=== PATIENT | female | born 1950 | race Caucasian/White ===

== ENCOUNTER → 2025-05-04 05:50 | Outpatient (REF) | payer MEDICARE, SELFPAY ==
[2025-05-04 07:55] LABS: Mucous, Urine 0 SEEN /hpf (<or=2+); Red Blood Cells-Urine 0 SEEN /hpf (0-5); Squamous Epithelial Cells - UA 0 SEEN /hpf (5-10)
[2025-05-04 08:16] LABS: Hematocrit 29.8 % (37-47); Hemoglobin 9.3 g/dL (12.0-15.0); Mean Corp Hgb Conc 31.2 g/dL (32-36); Mean Corpuscular Volume 93.7 fL (81-99); Mean Platelet Vol. 9.6 fl (6.2-12.0); Platelet Count 158 K/mm3 (150-450); RBC Distribution Width CV 15.1 % (11.6-14.6); RBC Distribution Width SD 52.3 fl (35.1-43.9); Red Blood Count 3.18 M/mm3 (4.2-5.4); White Blood Count 9.2 K/mm3 (4.4-11.0)
[2025-05-04 08:18] LABS: Color, Urine Yellow (Yellow); Glucose, Dipstick Normal (Normal); Ketone-Dipstick Negative (Negative); Leukocyte Esterase-Dipstick 100 /ul (Negative); Nitrite-Dipstick Negative (Negative); Occult Blood-Urine 250 /ul (Negative); Protein-Dipstick 30 mg/dl (Negative); Specific Gravity, Urine 1.005 (1.002-1.030); Urine Bilirubin Dipstick Negative (Negative)
[2025-05-04 08:28] LABS: Anion Gap 12 (5-15); BUN 33 mg/dL (4-19); BUN/Creat Ratio 13.9 RATIO (10-20); Calcium,Total 7.9 mg/dL (7.6-11.0); Carbon Dioxide 27.4 mmol/L (21.0-32.0); Chloride 106 mmol/L (98-108); Glucose 124 mg/dL (70-99); Potassium 3.3 mmol/L (3.3-5.1)
== END ==
LOC: OLS.SANC 05:50
DX: D64.9 Anemia, unspecified (principal); I10 Essential (primary) hypertension; N17.9 Acute kidney failure, unspecified
CPT/HCPCS: 36415; 80048; 81001; 85027; 87086

== ENCOUNTER → 2025-05-21 05:00 | Outpatient (REF) | payer MEDICARE, SELFPAY ==
--- OUTSIDE RECORDS SUMMARY | 2025-05-21 03:27 | XMS RPT_ITS | CCD ---
Author Organization [facility] Care Team Providers Care Android Developer Name Role Phone Luis Brooke DO Unavailable [facility] Primary Care Provider Aron Pennington MD, [facility] Primary Care Provider [phone] [facility] Primary Care Provider Luis Brooke DO Unavailable [facility] Primary Care Provider [facility] Primary Care Provider Priscilla Salas MD Unavailable [phone] [facility] Primary Care Provider [facility] Primary Care Unavailable JOSUE, QARAB Emmanuelle Referring Unavailable Luis Brooke DO Unavailable Priscilla Salas MD Unavailable [phone] [facility] Primary Care Provider Priscilla Salas MD Unavailable [facility] Primary Care Provider [facility] Primary Care Provider Toni Duran APRN.CNP Unavailable [phone] Della Alicia APRN.CNP Unavailable Scarlett Tan APRN.CNP Unavailable Toni Duran APRN.CNP Unavailable Ravin MAE.RHONDA Della N Unavailable MAY, MICHELLE Referring Unavailable [facility] DO, Samm Unavailable Bridgette SECURITIES BROKER.BRICK OR BLOCK MAKER, Amy Unavailable October RN, Taty Gomez Unavailable Baldemar PEPE, Daphne Unavailable Ravin SECURITIES BROKER.BRICK OR BLOCK MAKER, Della N Unavailable Mildred PEPE, Vy Unavailable Unavailable Ravin SECURITIES BROKER.BRICK OR BLOCK MAKER, Della N Unavailable October RN, Taty Gomez Unavailable Mildred PEPE, Vy Unavailable Unavailable Bshara, Beltran Unavailable Unavailable Bsannettea, Beltran Attending Unavailable Stan LIM, July Unavailable Nga Deras MA Unavailable [facility] Primary Care Unavailable DEANNE BUTTERFIELD MD Admitting Unavailable VIC GONZALEZ MD Consulting Unavailable [facility] Primary Care Unavailable KEVIN BRYAN MD Consulting Unavailable COLIN MANDEL MD Consulting Unavailable [facility] Primary Care Unavailable [facility] Primary Care Unavailable Nga Deras MA Unavailable [phone] Beth Rankin Unavailable [phone] [facility] Primary Care Unavailable JOSE CHAPARRO Admitting Unavailable NOEL JACKSON Attending Unavailable TERE PATEL Consulting Unavailab CARSON Hassan Admitting Unavailable CARSON BARR Attending Unavailable YAMINI, SAMM Primary Care Unavailable JULY PIERCE Referring Unavailable YAMINI, SAMM Primary Care Unavailable FAB ALTMAN Attending Unavailable ALEXANDRIA JOAQUIN Referring Unavailable [facility] Primary Care Unavailable [facility] Primary Care Unavailable SENG NAVARRETE Admitting UnavailGAVINO Wharton Consulting Unavailable RAFFY WHYTE Attending Unavailable [facility] Primary Care Unavailable BLAINE PAT Admitting Unavailable BETI PADGETT Attending Unavailable RENEE MOSS Consulting Unavailable YAMINI, SAMM Primary Care Unavailable GUME CANDELARIOAVI Attending Unavailable YAMINI, SAMM Primary Care Unavailable YAMINI, SAMM Attending Unavailable YAMINI, SAMM Primary Care Unavailable CANDELARIO, NORAH Referring Unavailable YAMINI, SAMM Primary Care Unavailable STAN, JULY Referring Unavailable YAMINI, SAMM Primary Care Unavailable BRIDGETTE, AMY Referring Unavailable YAMINI, SAMM Primary Care Unavailable STAN, JULY Attending Unavailable YAMINI, SAMM Primary Care Unavailable STAN, JULY Referring Unavailable YAMINI, SAMM Primary Care Unavailable YAMINI, SAMM Attending Unavailable YAMINI, SAMM Primary Care Unavailable SOFY RABAGO Referring Unavailab GILA Cabrera Attending Unavailable YAMINI, SAMM Primary Care Unavailable STAN, JULY Attending Unavailable YAMINI, SAMM Primary Care Unavailable BRIDGETTE, AMY Referring Unavailable YAMINI, SAMM Primary Care Unavailable YAMINI, SAMM Referring Unavailable POLA GARCIA Attending Unavailable YAMINI, SAMM Primary Care Unavailable KAROL RODRIGUEZ Referring Unavailable ROGERIMANDA Attending Unavailable YAMINI, SAMM Primary Care Unavailable STAN, JULY Referring Unavailable YAMINI, SAMM Primary Care Unavailable SEDRICK ROBERTS Attending Unavailable STAN, JULY Attending Unavailable YAMINI, SAMM Primary Care Unavailable YAMINI, SAMM Referring Unavailable YAMINI, SAMM Primary Care Unavailable POLA GARCIA Attending Unavailable YAMINI, SAMM Primary Care Unavailable SELF Referring Unavailable EL RETANA Attending Unavailable YAMINI, SAMM Primary Care Unavailable MARTI GARCIA Attending Unavailable YAMINI, SAMM Primary Care Unavailable ALEXANDRIA ROBERT Referring Unavailable SOFY RABAGO Attending Unavailab SOFY Chong Admitting Unavailab le YAMINI, SAMM Primary Care Unavailable YAMINI, SAMM Referring Unavailable YAMINI, SAMM Primary Care Unavailable STAN, JULY Attending Unavailable YAMINI, SAMM Primary Care Unavailable SUNSHINE DUCKWORTH Referring Unavailable YAMINI, SAMM Primary Care Unavailable YAMINI, SAMM Referring Unavailable [facility] Primary Care Unavailable RUDDY PIERCENORA Referring Unavailable [facility] Primary Care Unavailable CHAPARRORYK, LISE Referring Unavailable YUSRA BELTRAN Attending Unavailable [facility] Primary Care Unavailable LAVRYK, LISE Referring Unavailable LESLY BENDER Attending Unavailable [facility] Primary Care Unavailable [facility] Primary Care Unavailable JACKSONJEANETTEAR Referring Unavailable [facility] Attending Unavailable [facility] Primary Care Unavailable PRISCILLA SALAS Attending Unavailable Medications Current Medications Medication Drug Class(es) Dates Sig (Normalized) Sig (Original) acetaminophen 325 mg oral tablet (20 sources) Start: 08-16-2021 take 325-650 mg by mouth every six hours as needed acetaminophen (TYLENOL) 325 mg tablet Take 1-2 tablets by mouth every 6 hours as needed for pain or fever (specify). 08/16/2021 Active Comment on above: Take 1-2 tablets by mouth every 6 hours as needed for pain or fever (specify). amoxicillin 875 mg / clavulanate 125 mg oral tablet (3 sources) Penicillin-class Antibacterial Start: 02-20-2025 End: 02-27-2025 take 1 tablet by mouth twice daily amoxicillin-clavul anate potassium (AUGMENTIN) 875-125 mg per tablet Take 1 tablet by mouth two times a day for 7 days. 14 tablet 02/20/2025 02/27/2025 Active atorvastatin 80 mg oral tablet (20 sources) HMG-CoA Reductase Inhibitor Start: 07-24-2021 End: 12-29-2025 take 1 tablet by mouth once daily at bedtime atorvastatin (LIPITOR) 80 mg tablet Take 1 tablet by mouth daily at bedtime. 30 tablet 11 12/29/2024 12/29/2025 Active Start: 07-24-2021 End: 09-18-2022 take 1 tablet by mouth once daily at bedtime atorvastatin (LIPITOR) 80 mg tablet 1 tablet by ORAL/FEEDING TUBE route daily at bedtime. 90 tablet 3 07/24/2021 09/18/2022 Discontinued Comment on above: 1 tablet by ORAL/FEE DING TUBE route daily at bedtime. Take 1 tablet by teodoro th daily at bedtime. Blood-Glucose Meter (20 sources) Start: 01-09-2024 Blood-Glucose Meter To check blood sugar once a day. E11.9 any brand covered by insurance is ok 1 Each 01/09/2024 Suspended Start: 01-09-2024 Blood-Glucose Meter To check blood sugar once a day. E11.9 any brand covered by insurance is ok 1 Each 01/09/2024 Active Start: 01-09-2024 Blood-Glucose Meter To check blood sugar once a day. E11.9 any brand covered by insurance is ok 1 Each 0 01/09/2024 Active Blood-Glucose Meter,Continuo us (FREESTYLE YESSENIA 3 READER) misc (20 sources) Start: 01-18-2025 Blood-Glucose Meter,Continuous (FREESTYLE YESSENIA 3 READER) [facility] [place]ications: Type 2 diabetes mellitus without complication, with long-term current use of insulin (HCC) 1 each continuous. 1 each 01/18/2025 Suspended Start: 01-18-2025 Blood-Glucose Meter,Continuous (FREESTYLE YESSENIA 3 READER) [facility] [place]ications: Type 2 diabetes mellitus without complication, with long-term current use of insulin (HCC) 1 each continuous. 1 each 01/18/2025 Active Blood-Glucose Sensor (FREEST YLE YESSENIA 3 PLUS SENSOR) lv (20 sources) Start: 01-15-2025 Blood-Glucose Sensor (FREESTYLE YESSENIA 3 PLUS SENSOR) lv Indications: Type 2 diabetes mellitus without complication, with long-term current use of insulin (HCC) 1 each once daily. 5 each 01/15/2025 Suspended Start: 01-15-2025 Blood-Glucose Sensor (FREESTYLE YESSENIA 3 PLUS SENSOR) lv Indications: Type 2 diabetes mellitus without complication, with long-term current use of insulin (HCC) 1 each once daily. 5 each 11 01/15/2025 Active [facility] Comment on above: Order Comment: Speci men Type: BLOOD SPECIMENOrdering Facility: [facility] Address: [address] [place] [address] Performed By: #### 5 7021-8 ####[facility] LABCLIA [id number] [place] [address] [place] Lymphocytes (Bld) [#/Vol] 2.26 10*3/uL Normal 1.00-4.00 [facility] Comment on above: Order Comment: Speci men Type: BLOOD SPECIMENOrdering Facility: [facility] Address: [address] [place] [address] Performed By: #### 5 7021-8 ####[facility] LABCLIA [id number] [address] STATES [facility] Lymphocytes/100 WBC (Bld) 26.1 % Normal [facility] Comment on above: Order Comment: Speci men Type: BLOOD SPECIMENOrdering Facility: [facility] Address: [address] [place] [address] Performed By: #### 5 7021-8 ####[facility] LABCLIA [id number] [place] [address] [place] MCH (RBC) [Entitic mass] 28.2 pg Normal 26.0-34.0 [facility] Comment on above: Order Comment: Speci men Type: BLOOD SPECIMENOrdering Facility: [facility] Address: [address] [place] [address] Performed By: #### 5 7021-8 ####[facility] LABCLIA [id number] [address] STATES [facility] MCHC (RBC) [Mass/Vol] 31.1 g/dL Normal 30.5-36.0 [facility] Comment on above: Order Comment: Speci men Type: BLOOD SPECIMENOrdering Facility: [facility] Address: [address] [place] [address] Performed By: #### 5 7021-8 ####[facility] LABCLIA [id number] [address] [place] MCV (RBC) [Entitic vol] 90.6 fL Normal 80.0-100.0 [facility] Comment on above: Order Comment: Speci men Type: BLOOD SPECIMENOrdering Facility: [facility] Address: [address] [place] [address] Performed By: #### 5 7021-8 ####[facility] LABCLIA [id number] [place] [address] [place] Monocytes (Bld) [#/Vol] 0.45 10*3/uL Normal <0.87 [facility] Comment on above: Order Comment: Speci men Type: BLOOD SPECIMENOrdering Facility: [facility] Address: [address] [place] [address] Performed By: #### 5 7021-8 ####[facility] LABCLIA [id number] [place] [address] [place] Monocytes/100 WBC (Bld) 5.2 % Normal [facility] Comment on above: Order Comment: Speci men Type: BLOOD SPECIMENOrdering Facility: [facility] Address: [address] [place] [address] Performed By: #### 5 7021-8 ####[facility] LABCLIA [id number] [place] [address] [place] Neutrophils (Bld) [#/Vol] 5.88 10*3/uL Normal 1.45-7.50 [facility] Comment on above: Order Comment: Speci men Type: BLOOD SPECIMENOrdering Facility: [facility] Address: [address] [place] [address] Performed By: #### 5 7021-8 ####[facility] LABCLIA [id number] [place] [address] [place] Neutrophils/100 WBC (Bld) 67.8 % Normal [facility] Comment on above: Order Comment: Speci men Type: BLOOD SPECIMENOrdering Facility: [facility] Address: [address] [place] [address] Performed By: #### 5 7021-8 ####[facility] LABCLIA [id number] [place] [address] [place] Nucleated RBC (Bld) [#/Vol] 10*3/uL Normal <0.01 [facility] Comment on above: Order Comment: Speci men Type: BLOOD SPECIMENOrdering Facility: [facility] Address: [address] [place] [address] Performed By: #### 5 7021-8 ####[facility] LABCLIA [id number] [place] [id number] [place] Nucleated RBC/100 WBC (Bld) [Ratio] 0.0 /100 WBC Normal [facility] Comment on above: Order Comment: Speci men Type: BLOOD SPECIMENOrdering Facility: [facility] Address: [address] [place] [address] Performed By: #### 5 7021-8 ####[facility] LABCLIA [id number] [place] [address] [place] Platelet mean volume (Bld) [Entitic vol] 8.9 fL Low 9.0-12.7 [facility] Comment on above: Order Comment: Speci men Type: BLOOD SPECIMENOrdering Facility: [facility] Address: [address] [place] [address] Performed By: #### 5 7021-8 ####[facility] LABCLIA [id number] [place] [address] [place] Platelets (Bld) [#/Vol] 276 10*3/uL Normal 150-400 [facility] Comment on above: Order Comment: Speci men Type: BLOOD SPECIMENOrdering Facility: [facility] Address: [address] [place] [address] Performed By: #### 5 7021-8 ####[facility] LABCLIA [id number] [place] [address] [place] RBC (Bld) [#/Vol] 3.41 10*6/uL Low 4.20-6.00 [facility] Comment on above: Order Comment: Speci men Type: BLOOD SPECIMENOrdering Facility: [facility] Address: [address] [place] [address] Performed By: #### 5 7021-8 ####[facility] LABCLIA [id number] [place] [address] [place] WBC (Bld) [#/Vol] 8.67 10*3/uL Normal 3.70-11.00 [facility] Comment on above: Order Comment: Speci men Type: BLOOD SPECIMENOrdering Facility: [facility] Address: [address] [place] [address] Performed By: #### 5 7021-8 ####[facility] LABCLIA [id number] [place] [id number] [place] CNOVSPon 02-06-2025 CNOVSP Normal [facility] MAE DIRECTon 02-06-2025 DAGT, ANTI-C3B,C3D Positive Normal [facility] Comment on above: Order Comment: Speci men Type: BLOOD SPECIMENOrdering Facility: [facility] Address: [address] [place] [address] Performed By: #### D AGT ####CC [facility] BLOOD BANKCLIA [id number] [place] [address] [place] DAGT, ANTI-IGG Positive Normal [facility] Comment on above: Order Comment: Speci men Type: BLOOD SPECIMENOrdering Facility: [facility] Address: [address] [place] [address] Performed By: #### D AGT ####CC MAIN BLOOD BANKCLIA [id number] [place] [address] [place] DAGT, POLYSPECIFIC AHG Negative Normal [facility] Comment on above: Order Comment: Speci men Type: BLOOD SPECIMENOrdering Facility: [facility] Address: [address] [place] [address] Performed By: #### D AGT ####CC MAIN BLOOD BANKCLIA [id number] [place] [address] [place] Comprehensive metabolic 2000 panelon 02-06-2025 Albumin [Mass/Vol] 3.2 g/dL Low 3.9-4.9 [facility] Comment on above: Order Comment: Speci men Type: BLOOD SPECIMENOrdering Facility: [facility] Address: [address] [place] [address] Performed By: #### 2 4323-8, 4542-7, 2777-1, 3084-1 ####[facility] LABCLIA [id number] [place] [address] [place] ALP [Catalytic activity/Vol] 107 U/L Normal 38-113 [facility] Comment on above: Order Comment: Speci men Type: BLOOD SPECIMENOrdering Facility: [facility] Address: [address] [place] [address] Performed By: #### 2 4323-8, 4542-7, 277-1, 308-1 ####[facility] LABIA [id number] [place] [address] [place] ALT [Catalytic activity/Vol] 15 U/L Normal 10-54 [facility] Comment on above: Order Comment: Speci men Type: BLOOD SPECIMENOrdering Facility: [facility] Address: [address] [place] [address] Performed By: #### 2 4323-8, 4542-7, 2776-, 308-1 ####[facility] LABIA [id number] [place] [address] [place] Anion gap [Moles/Vol] 17 mmol/L High 8-15 [facility] Comment on above: Order Comment: Speci men Type: BLOOD SPECIMENOrdering Facility: [facility] Address: [address] [place] [address] Performed By: #### 2 4323-8, 4542-7, 2776-1, 308-1 ####[facility] LABCLIA [id number] [place] [id number] [place] AST [Catalytic activity/Vol] 16 U/L Normal 14-40 [facility] Comment on above: Order Comment: Speci men Type: BLOOD SPECIMENOrdering Facility: [facility] Address: [address] [place], [place] [address] Performed By: #### 2 4323-8, 4542-7, 2776-, 3083- ####[facility] LABCLIA [id number] [facility] [address] [address] [place] Bilirubin [Mass/Vol] 0.4 mg/dL Normal 0.2-1.3 [facility] Comment on above: Order Comment: Speci men Type: BLOOD SPECIMENOrdering Facility: [facility] Address: [address] [place], [place] [address] Performed By: #### 2 4323-8, 4542-7, 2776-, 3083- ####[facility] LABCLIA [id number] [facility] [place] [id number] [place] Calcium [Mass/Vol] 8.7 mg/dL Normal 8.5-10.2 [facility] Comment on above: Order Comment: Speci men Type: BLOOD SPECIMENOrdering Facility: [facility] Address: [address] [place] [address] Performed By: #### 2 4323-8, 4542-7, 2776-, 3083- ####[facility] LABCLIA [id number] [facility] [place] [id number] [place] Chloride [Moles/Vol] 101 mmol/L Normal 98-107 [facility] Comment on above: Order Comment: Speci men Type: BLOOD SPECIMENOrdering Facility: [facility] Address: [address] [place], [place] [address] Performed By: #### 2 4323-8, 4542-7, 277-, 308-1 ####[facility] LABCLIA [id number] [facility] [address] [address] [place] CO2 [Moles/Vol] 19 mmol/L Low 22-30 [facility] Comment on above: Order Comment: Speci men Type: BLOOD SPECIMENOrdering Facility: [facility] Address: [address] [place] [address] Performed By: #### 2 4323-8, 4542-7, 2777-1, 308- ####[facility] LABCLIA [id number] [address] [address] [place] Creatinine [Mass/Vol] 1.11 mg/dL Normal 0.73-1.22 [facility] Comment on above: Order Comment: Speci men Type: BLOOD SPECIMENOrdering Facility: [facility] Address: [address] [place] [address] Performed By: #### 2 4323-8, 4542-7, 2776-, 308- ####[facility] LABCLIA [id number] [address] [address] [place] eGFRcr SerPlBld CKD-EPI 2020 69 mL/min/1.73m??? Normal >=60 [facility] Comment on above: Order Comment: Speci men Type: BLOOD SPECIMENOrdering Facility: [facility] Address: [address] [place] [address] Result Comment: Nancy mated Glomerular Filtration Rate (eGFR) is calculated using the 2020 CKD-EPI creatinine equation. This equation utilizes serum creatinine, sex, and age as parameters. The creatinine assay has traceable calibration to isotope dilution-mass spectrometry. Refer to KDIGO guidelines for clinical interpretation. In patients with unstable renal function, e.g. those with acute kidney injury, the eGFR may not accurately reflect actual GFR. Performed By: #### 2 4323-8, 4542-7, 277-1, 308-1 ####[facility] LABCLIA [id number] [address] [address] [place] Glucose [Mass/Vol] 250 mg/dL High 74-99 [facility] Comment on above: Order Comment: Speci men Type: BLOOD SPECIMENOrdering Facility: [facility] Address: [address] [place], [place] [address] Result Comment: The [place] Diabetes [employer] (ADA) provides guidance for cutoff values for fasting glucose and random glucose. The ADA defines fasting as no caloric intake for at least 8 hours. Fasting plasma glucose results between 100 to 125 mg/dL indicate increased risk for diabetes (prediabetes).Fasting plasma glucose results greater than or equal to 126 mg/dL meet the criteria for diagnosis of diabetes. In the absence of unequivocal hyperglycemia, results should be confirmed by repeat testing. In a patient with classic symptoms of hyperglycemia or hyperglycemic crisis, random plasma glucose results greater than or equal to 200 mg/dL meet the criteria for diagnosis of diabetes.Reference: Standards of Medical Care in Diabetes 2016, [place] [employer]. Diabetes Care. 2016.39(Suppl 1). Performed By: #### 2 4323-8, 4542-7, 2776-, 308- ####[facility] LABCLIA [id number] [place] [address] [place] Potassium [Moles/Vol] 5.1 mmol/L Normal 3.7-5.1 [facility] Comment on above: Order Comment: Speci men Type: BLOOD SPECIMENOrdering Facility: [facility] Address: [address] [address] [place] [id number] Performed By: #### 2 4323-8, 2-7, 2776-06, 3083- ####[facility] LABIA [id number] [place] [id number] [place] Protein [Mass/Vol] 6.2 g/dL Low 6.3-8.0 [facility] Comment on above: Order Comment: Speci men Type: BLOOD SPECIMENOrdering Facility: [facility] Address: [address] [facility] [address] [place] [address] Performed By: #### 2 4323-8, 4542-7, 2776-, 308- ####[facility] LABCLIA [id number] [place] [id number] [place] Sodium [Moles/Vol] 137 mmol/L Normal 136-144 [facility] Comment on above: Order Comment: Speci men Type: BLOOD SPECIMENOrdering Facility: [facility] Address: [address] [place] [address] Performed By: #### 2 4323-8, 4542-7, 2777-1, 3084-1 ####[facility] LABCLIA [id number] [address] [address] [place] Urea nitrogen [Mass/Vol] 22 mg/dL Normal 9-24 [facility] Comment on above: Order Comment: Speci men Type: BLOOD SPECIMENOrdering Facility: [facility] Address: [address] [place] [address] Performed By: #### 2 4323-8, 4542-7, 2776-, 3084-1 ####[facility] LABCLIA [id number] [place] [id number] [place] Glucose (BldC) [Mass/Vol]on 02-06-2025 Glucose [Moles/Vol] 130 mmol/L Invalid Interpretation Code [employer] Work Phone: Glucose [Moles/Vol] 144 mmol/L Invalid Interpretation Code [employer] Work Phone: Glucose [Moles/Vol] 112 mmol/L Invalid Interpretation Code [employer] Work Phone: Haptoglob SerPl-mCncon 02-06 Haptoglobin [Mass/Vol] 277 mg/dL High 31-238 [facility] Comment on above: Order Comment: Speci men Type: BLOOD SPECIMENOrdering Facility: [facility] Address: [address] [place], [place] [address] Performed By: #### 2 4323-8, 4542-7, 2776-1, 3084-1 ####[facility] LABCLIA [id number] [address] [address] [place] LDH SerPl-cCncon 02-06-2025 LDH [Catalytic activity/Vol] 327 U/L High 135-225 [facility] Comment on above: Order Comment: Speci men Type: BLOOD SPECIMENOrdering Facility: [facility] Address: [address] [place] [address] Performed By: #### 2 532-0 ####[facility] LABCLIA [id number] [address] [address] [facility] [place] Phosphate SerPl-mCncon 02-06 Phosphate [Mass/Vol] 3.5 mg/dL Normal 2.7-4.8 [facility] [facility] Comment on above: Order Comment: Speci men Type: BLOOD SPECIMENOrdering Facility: [facility] Address: [address] [place] [address] Performed By: #### 2 4323-8, 4542-7, 2777-1, 3084-1 ####[facility] LABCLIA [id number] [place] [address] [place] TYPE + SCREENon 02-06-2025 ABO A Normal [facility] Comment on above: Order Comment: Speci men Type: BLOOD SPECIMENOrdering Facility: [facility] Address: [address] [place] [address] Performed By: #### T SCR, [id number] ####[facility] BLOOD BANKCLIA [id number] [place] [address] [place] Rh Nom (Bld) Positive Normal [facility] Comment on above: Order Comment: Speci men Type: BLOOD SPECIMENOrdering Facility: [facility] Address: [address] [place] [address] Performed By: #### T SCR, [id number] ####[facility] BLOOD BANKCLIA [id number] [place] [address] [place] TYPE AND SCREEN EXPIRATION 02/09/2025 23:59 Normal [facility] Comment on above: Order Comment: Speci men Type: BLOOD SPECIMENOrdering Facility: [facility] Address: [address] [place] [address] Performed By: #### T SCR, [id number] ####[facility] BLOOD BANKCLIA [id number] [address] [address] [place] Urate SerPl-mCncon 5 Urate [Mass/Vol] 4.6 mg/dL Normal 4.0-8.[address] [facility] Comment on above: Order Comment: Speci men Type: BLOOD SPECIMENOrdering Facility: [facility] Address: [address] [place] [address] Performed By: #### 2 4323-8, 4542-7, 2777-1, 3084-1 ####[facility] LABCLIA [id number] [place] [address] [place] Glucose (BldC) [Mass/Vol]on 02-05-2025 Glucose [Moles/Vol] 135 mmol/L Invalid Interpretation Code [facility] Work Phone: Glucose [Moles/Vol] 130 mmol/L Invalid Interpretation Code [facility] Work Phone: Glucose [Moles/Vol] 176 mmol/L Invalid Interpretation Code [facility] Work Phone: Glucose [Moles/Vol] 119 mmol/L Invalid Interpretation Code [facility] Work Phone: Glucose (BldC) [Mass/Vol]on 02-04-2025 Glucose [Moles/Vol] 117 mmol/L Invalid Interpretation Code [facility] Work Phone: Glucose [Moles/Vol] 110 mmol/L Invalid Interpretation Code [facility] Work Phone: Glucose [Moles/Vol] 192 mmol/L Invalid Interpretation Code [facility] Work Phone: Glucose [Moles/Vol] 120 mmol/L Invalid Interpretation Code [facility] Work Phone: HISTORY PHYSICALon 5 HISTORY PHYSICAL HNO ID: [id number] Author: ADRIANA PETTIT MD Service: ? Author Type: Physician Type: H&P Filed: 02/11/2025 00:02 Note Text: HISTORY AND PHYSICAL EXAMINATION - INTERNAL MEDICINE PATIENT NAME: Tere Barone SERVICE DATE: 02/04/2025 SERVICE TIME: 11:53 PM PRIMARY CARE PHYSICIAN: Samm Kc DO Admitting Physician: Adriana Pettit MD SUBJECTIVE CHIEF COMPLAINT: 74 years old male admitted to the hospital with weakness and fatigue, found to be covid positive, isolated and stabilized, then discharged to SNF for rehab and continuity of care. HISTORY OF PRESENT ILLNESS: Mr. 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 Patient was admitted to the hospital for further treatment and evaluation. Patient was found to be positive for COVID 19. Started on remdesivir therapy. ID was consulted. Recommended continuing 3-day course of antivirals. Patient showed incremental improvement in clinical course. As patient was not hypoxic did not start steroid therapy. PT/OT recommended patient would benefit from [facility] facility. Patient also did have history of mantle cell lymphoma/autoimmune hemolytic anemia. Hematology was consulted and felt that patient was not in flareup. Continue outpatient follow-up with hematology. During patient's hospital course also noted to have depression. Behavioral health was consulted and recommended that patient start Zoloft 50 mg daily, trazodone 25 mg at bedtime and following up with outpatient psych. Patient's hospital course and need for follow-up were explained to patient and for member who are in understanding. Patient will need to follow-up with primary care physician, hematology and psychiatry soon after discharge from hospital. Today he is stable, denies any pain or sob, his lungs are clear to auscultation , participating in therapy without complication , no other new concerns. 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 Carotid artery occlusion Carpal tunnel syndrome of left wrist Carpal tunnel syndrome on right Chronic bilateral low back pain without sciatica 10/01/2017 Combined forms of age-related cataract of right eye 06/14/2021 COVID-19 08/03/2021 Dependence on nicotine from cigarettes Elevated troponin 07/23/2021 Essential hypertension 08/03/2021 Frequent falls 08/03/2021 Mixed hyperlipidemia Multiple falls 08/04/2021 Nicotine use disorder, F17.2 NS (nuclear sclerosis), right 06/16/2021 Obesity, Class I, BMI 30-34.9 08/03/2021 Osteoarthritis Posterior subcapsular polar age-related cataract of right eye 06/16/2021 Pseudophakia of left eye 09/2012 Sleep apnea Spinal stenosis Syncope 07/23/2021 Thoracic or lumbosacral neuritis or radiculitis, unspecified Type 2 diabetes mellitus with hyperglycemia (HCC) 08/03/2021 PAST SURGICAL HISTORY: PAST SURGICAL HISTORY Procedure Laterality Date ARTHRD ANT INTERBODY MIN DSC LUMBAR 1989 NEUROPLASTY AND/TRANSPOS MEDIAN NRV CARPAL TUNNE 2009 Carpal tunnel decomp Lt. XCAPSL CTRC RMVL INSJ IO LENS PROSTH W/O ECP 09/2012 Cataract Extraction with PC IOL left ACTIVE HOSPITAL PROBLEMS Active Problems: * No active hospital problems. * FAMILY HISTORY: FAMILY HISTORY Problem Relation Age of Onset Diabetes Mother Heart Mother Hypertension Mother Stroke Mother Cataract Mother Glaucoma Mother Macular Degen Father Parkinsonism Sister Asthma Sister Headache Brother Heart Attack Brother SOCIAL HISTORY: SOCIAL HISTORY[1] MEDICATIONS: Prescriptions Prior to Admission[2] ALLERGIES: ALLERGIES No Known Allergies COMPLETE REVIEW OF SYSTEMS: RESPIRATORY: Negative for cough, wheezing or shortness of breath. CARDIOVASCULAR: Negative for chest pain, leg swelling or palpitations. GI: Negative for abdominal discomfort, blood in stools or black stools or change in bowel habits : No history of dysuria, frequency or incontinence MUSCULOSKELETAL: Negative for joint pain or swelling, back pain or muscle pain. SKIN: Negative for lesions, rash, and itching. NEURO: weakness All other reviewed and negative other than HPI. OBJECTIVE PHYSICAL EXAM: @IPVITALS(1D:)@ There is no height or weight on file to calculate BMI. Oropharynx normal. NECK: no jugulovenous distention, no carotid bruits, carotid pulse normal contour, supple LUNGS: Lungs clear to auscultation. Good diaphragmatic excursion. CARDIAC: normal S1 and S2; no rubs, murmurs, or gallops ABDOMEN: Abdomen soft, non-tender. BS normal. No masses (more content not included)... Normal [facility] Glucose (BldC) [Mass/Vol]on 02-03-2025 Glucose [Moles/Vol] 236 mmol/L Invalid Interpretation Code [facility] Work Phone: Glucose [Moles/Vol] 248 mmol/L Invalid Interpretation Code [facility] Work Phone: Glucose [Moles/Vol] 263 mmol/L Invalid Interpretation Code [facility] Work Phone: Glucose [Moles/Vol] 125 mmol/L Invalid Interpretation Code [facility] Work Phone: BASICMETAon 02-02-2025 Calcium [Mass/Vol] 8.2 mg/dL Low 8.7-10.4 [facility] Comment on above: Performed By: #### 1 71559, [id number], [id number] #### [facility] [address] [place] [address] Mud Boss: Simba Obrien MD Chloride [Moles/Vol] 107 mmol/L Normal 98-107 [facility] Comment on above: Performed By: #### 1 85429, 582661, 911031 #### [facility] [address] [place] [address] Mud Boss: Simba Obrien MD CO2 [Moles/Vol] 26.0 mmol/L Normal 20.0-31.0 [facility] Comment on above: Performed By: #### 1 18145, 387321, 870269 #### [facility] [address] [place] [address] 00589 Mud Boss: Simba Obrien MD Creatinine [Mass/Vol] 0.9 mg/dL Normal 0.6-1.1 [facility] Comment on above: Performed By: #### 1 69808, 190178, 412187 #### [facility] [address] [place] [address] Mud Boss: Simba Obrien MD GFR AA >60 Normal [facility] Comment on above: Result Comment: Afri can [place] GFR Calc Medical judgement is necessary to interpret GFR. The calculated GFR may not accurately reflect renal status in patients >70 years, women, acutely ill hospitalized patients and patients with acute renal failure or known renal disease. The MDRD GFR formula is valid only for adults greater than 18 years of age. Note: Creatinine clearance (not GFR) should be used for drug dosing. Calculated result performed using the MDRD GFR equation Performed By: #### 1 22680, 305422, 232635 #### [facility] [address] [place] [address] Mud Boss: Simba Obrien MD Glomerular Filtration Rate >60 Normal [facility] Comment on above: Result Comment: Non- GFR Calc Medical judgement is necessary to interpret GFR. The calculated GFR may not accurately reflect renal status in patients >70 years, women, acutely ill hospitalized patients and patients with acute renal failure or known renal disease. The MDRD GFR formula is valid only for adults greater than 18 years of age. Note: Creatinine clearance (not GFR) should be used for drug dosing. Calculated result performed using the MDRD GFR equation Performed By: #### 1 30074, 393392, 558985 #### [facility] [address] [place] [address] Mud Boss: Simba Obrien MD Glucose [Mass/Vol] 75 mg/dL Normal 74-106 [facility] Comment on above: Performed By: #### 1 81067, 809065, 193263 #### [facility] [address] [place] [address] Mud Boss: Simba Obrien MD Osmolality [Osmolality] 280 mosm/kg Normal 275-295 [facility] Comment on above: Performed By: #### 1 08160, 809619, 056314 #### [facility] [address] [place] [address] Mud Boss: Simba Obrien MD Potassium [Moles/Vol] 3.6 mmol/L Normal 3.5-5.1 [facility] Comment on above: Performed By: #### 1 96522, 596437, 576678 #### [facility] [address] [place] [address] Mud Boss: Simba Obrien MD Sodium [Moles/Vol] 141 mmol/L Normal 135-145 [facility] Comment on above: Performed By: #### 1 97408, 207229, 970366 #### [facility] [address] [place] [address] Mud Boss: Simba Obrien MD Urea nitrogen [Mass/Vol] 14 mg/dL Normal 9-23 [facility] Comment on above: Result Comment: - Ve nipuncture should occur prior to N-Acetyl Cysteine (NAC) or Metamizole (Sulpyrine) administration due to the potential for falsely depressed results. - Blood samples from some patients with monoclonal gammopathies may produce falsely elevated results Performed By: #### 1 49354, 389579, 081654 #### [facility] [address] [place] [address] Mud Boss: Simba Obrien MD Urea nitrogen/Creatinine [Mass ratio] 15.6 mg/mg Normal [facility] Comment on above: Performed By: #### 1 32362, 451343, 625700 #### [facility] [address] [place] [address] Mud Boss: Simba Obrien MD CBCNDon 02-02-2025 Erythrocyte distribution width (RBC) [Ratio] 16.7 % High 11.5-14.5 [facility] Comment on above: Performed By: #### 5 [id number] #### [facility] [address] [place] [address] Mud Boss: Simba Obrien MD Hematocrit (Bld) [Volume fraction] 27.8 % Low 41.0-52.0 [facility] Comment on above: Performed By: #### 5 [id number] #### [facility] [address] [place] [address] Mud Boss: Simba Obrien MD Hemoglobin (Bld) [Mass/Vol] 9.1 g/dL Low 13.5-17.5 [facility] Comment on above: Performed By: #### 5 [id number] #### [facility] [address] [place] [address] Mud Boss: Simba Obrien MD Instr WBC ND 5.3 Normal [facility] Comment on above: Performed By: #### 5 [id number] #### [facility] [address] [place] [address] 29672 Mud Boss: Simba Obrien MD MCH (RBC) [Entitic mass] 28.4 pg Normal 27.0-34.0 [facility] Comment on above: Performed By: #### 5 [id number] #### [facility] [address] [place], [place] [address] Mud Boss: Simba Obrien MD MCHC (RBC) [Mass/Vol] 32.7 g/dL Normal 32.0-37.0 [facility] Comment on above: Performed By: #### 5 [id number] #### [facility] [address] [place] [address] Mud Boss: Simba Obrien MD MCV (RBC) [Entitic vol] 86.9 fL Normal 80.0-100.0 [facility] Comment on above: Performed By: #### 5 [id number] #### [facility] [address] [place] [address]10 Mud Boss: Simba Obrien MD Platelet 317 x10 Normal 150-450 [facility] Comment on above: Performed By: #### 5 [id number] #### [facility] [address] [place] [address] 75721 Mud Boss: Simba Obrien MD Platelet mean volume (Bld) [Entitic vol] 6.5 fL Low 7.4-10.4 [facility] Comment on above: Performed By: #### 5 [id number] #### [facility] [address] [place] [address] [id number] Mud Boss: Simba Obrien MD RBC 3.21 x10 Low 4.70-6.10 [facility] Comment on above: Result Comment: Note : RBC morphology is normal unless otherwise stated. Evaluation performed only if differential is requested. Performed By: #### 5 [id number] #### [facility] [address] [place], [place] [address] Mud Boss: Simba Obrien MD WBC 5.3 x10 Normal 4.5-11.0 [facility] Comment on above: Performed By: #### 5 [id number] #### [facility] [address] [place] [address] Mud Boss: Simba Obrien MD Glucose (BldC) [Mass/Vol]on 02-02-2025 Glucose [Moles/Vol] 231 mmol/L Invalid Interpretation Code [facility] Work Phone: Glucose [Moles/Vol] 240 mmol/L Invalid Interpretation Code [facility] Work Phone: Glucose [Moles/Vol] 189 mmol/L Invalid Interpretation Code [facility] Work Phone: Glucose [Moles/Vol] 99 mmol/L Invalid Interpretation Code [facility] Work Phone: Glucose (BldC) [Mass/Vol]on 02-01-2025 Glucose [Moles/Vol] 158 mmol/L Invalid Interpretation Code [facility] Work Phone: Glucose [Moles/Vol] 124 mmol/L Invalid Interpretation Code [facility] Work Phone: Glucose [Moles/Vol] 111 mmol/L Invalid Interpretation Code [facility] Work Phone: Glucose [Moles/Vol] 115 mmol/L Invalid Interpretation Code [facility] Work Phone: Glucose (BldC) [Mass/Vol]on 01-31-2025 Glucose [Moles/Vol] 132 mmol/L Invalid Interpretation Code [facility] Work Phone: Glucose [Moles/Vol] 103 mmol/L Invalid Interpretation Code [facility] Work Phone: Glucose [Moles/Vol] 115 mmol/L Invalid Interpretation Code [facility] Work Phone: Glucose [Moles/Vol] 101 mmol/L Invalid Interpretation Code [facility] Work Phone: Glucose (BldC) [Mass/Vol]on 01-30-2025 Glucose [Moles/Vol] 228 mmol/L Invalid Interpretation Code [facility] Work Phone: Glucose [Moles/Vol] 321 mmol/L Invalid Interpretation Code [facility] Work Phone: Glucose [Moles/Vol] 223 mmol/L Invalid Interpretation Code [facility] Work Phone: Glucose [Moles/Vol] 214 mmol/L Invalid Interpretation Code [facility] Work Phone: CNPTOUTREACHon 01-29-2025 CNPTOUTREACH Normal [facility] Glucose (BldC) [Mass/Vol]on 01-29-2025 Glucose [Moles/Vol] 293 mmol/L Invalid Interpretation Code [facility] Work Phone: Glucose [Moles/Vol] 295 mmol/L Invalid Interpretation Code [facility] Work Phone: Glucose [Moles/Vol] 216 mmol/L Invalid Interpretation Code [facility] Work Phone: Glucose [Moles/Vol] 157 mmol/L Invalid Interpretation Code [facility] Work Phone: CASE MANAGEMon 01-28-2025 CASE MANAGEM [facility] CNCOon 01-28-2025 CNCO Letter Text [facility] CNDSon 01-28-2025 CNDS [facility] CONSULT PROGon 01-28-2025 CONSULT PROG [facility] Glucose (BldC) [Mass/Vol]on 01-28-2025 Glucose [Moles/Vol] 210 mmol/L Invalid Interpretation Code [facility] Work Phone: Glucose [Moles/Vol] 221 mmol/L Invalid Interpretation Code [facility] Work Phone: CASE MANAGEMon 01-27-2025 CASE MANAGEM [facility] CASE MANAGEM [facility] CNOVSPon 01-27-2025 CNOVSP [facility] CONSULTon 01-27-2025 CONSULT [facility] CONSULT [facility] CONSULT PROGon 01-27-2025 CONSULT PROG [facility] THERAPY NTon 01-27-2025 THERAPY NT [facility] ALLIED HEALTHon 01-26-2025 ALLIED HEALTH [facility] Basic metabolic 2000 panelon 01-26-2025 Anion gap [Moles/Vol] 10 mmol/L Normal 8-15 [facility] Comment on above: Order Comment: Speci men Type: BLOOD SPECIMENOrdering Facility: [facility] Address: [address] [place] [address] Performed By: #### 2 4321-2, 53431-0, , 2776-1 ####[facility] [id number] [place] [address] [place] Calcium [Mass/Vol] 7.9 mg/dL Low 8.5-10.2 [facility] Comment on above: Order Comment: Speci men Type: BLOOD SPECIMENOrdering Facility: [facility] Address: [address] [place] [address] Performed By: #### 2 4321-2, 89264-2, , 2776-1 ####[facility]ORY[facility]IA [id number] [place] [address] [place] Chloride [Moles/Vol] 109 mmol/L High 98-107 [facility] Comment on above: Order Comment: Speci men Type: BLOOD SPECIMENOrdering Facility: [facility] Address: [address] [place] [address] Performed By: #### 2 4321-2, 40191-9, 24753-9, 2776-1 ####[facility] [id number] [place] [address] [place] CO2 [Moles/Vol] 21 mmol/L Low 22-30 [facility] Comment on above: Order Comment: Speci men Type: BLOOD SPECIMENOrdering Facility: [facility] Address: [facility] [place] [address] Performed By: #### 2 4321-2, 17664-5, 24897-7, 2776- ####[facility] [id number] [place] [address] [place] Creatinine [Mass/Vol] 1.09 mg/dL Normal 0.73-1.22 [facility] Comment on above: Order Comment: Pemai men Type: BLOOD SPECIMENOrdering Facility: [facility] Address: [address] [place] [address] Performed By: #### 2 4321-2, 05199-7, , 2776-06 ####[facility]ORY[facility]IA [id number] [address] STATES OF [facility] eGFRcr SerPlBld CKD-EPI 2020 71 mL/min/1.73m??? Normal >=60 [facility] Comment on above: Order Comment: Demarco men Type: BLOOD SPECIMENOrdering Facility: [facility] Address: [address] [place] [address] Result Comment: Nancy mated Glomerular Filtration Rate (eGFR) is calculated using the 2020 CKD-EPI creatinine equation. This equation utilizes serum creatinine, sex, and age as parameters. The creatinine assay has traceable calibration to isotope dilution-mass spectrometry. Refer to KDIGO guidelines for clinical interpretation. In patients with unstable renal function, e.g. those with acute kidney injury, the eGFR may not accurately reflect actual GFR. Performed By: #### 2 4321-2, 53821-3, 30968-0, 2776-1 ####[facility]ORYCLIA [id number] [place] [address] [place] Glucose [Mass/Vol] 229 mg/dL High 74-99 [facility] Comment on above: Order Comment: Pemai kimberly Type: BLOOD SPECIMENOrdering Facility: [facility] Address: [address] [place] [address] Result Comment: The [place] Diabetes Association (ADA) provides guidance for cutoff values for fasting glucose and random glucose. The ADA defines fasting as no caloric intake for at least 8 hours. Fasting plasma glucose results between 100 to 125 mg/dL indicate increased risk for diabetes (prediabetes).Fasting plasma glucose results greater than or equal to 126 mg/dL meet the criteria for diagnosis of diabetes. In the absence of unequivocal hyperglycemia, results should be confirmed by repeat testing. In a patient with classic symptoms of hyperglycemia or hyperglycemic crisis, random plasma glucose results greater than or equal to 200 mg/dL meet the criteria for diagnosis of diabetes.Reference: Standards of Medical Care in Diabetes 2016, [place] Diabetes Association. Diabetes Care. 2016.39(Suppl 1). Performed By: #### 2 4321-2, 26547-3, , 2776-06 ####[facility]ORYCLIA [id number] [place] [address] [place] Potassium [Moles/Vol] 4.4 mmol/L Normal 3.7-5.1 [facility] Comment on above: Order Comment: Demarco harris Type: BLOOD SPECIMENOrdering Facility: [facility] Address: [address] [place] [address] Performed By: #### 2 4321-2, 45017-4, , 2776-06 ####[facility]ORYCLIA [id number] [place] [address] [place] Sodium [Moles/Vol] 140 mmol/L Normal 136-144 [facility] Comment on above: Order Comment: Demarco harris Type: BLOOD SPECIMENOrdering Facility: [facility] Address: [address] [place] [address] Performed By: #### 2 4321-2, 26728-8, , 2776-06 ####[facility]ORYCLIA [id number] [place] [address] [place] Urea nitrogen [Mass/Vol] 14 mg/dL Normal 9-24 [facility] Comment on above: Order Comment: Demarco harris Type: BLOOD SPECIMENOrdering Facility: [facility] Address: [address] [place] [address] Performed By: #### 2 4321-2, 78220-3, , 2777-1 ####[facility]ATORYCLIA [id number] [place] [address] [place] CASE MANAGEMon 01-26-2025 CASE MANAGEM Normal [facility] CASE MANAGEM [facility] CBC W Auto Differential pane l (Bld)on 01-26-2025 Basophils (Bld) [#/Vol] 10*3/uL Normal <0.11 [facility] Comment on above: Order Comment: Speci men Type: BLOOD SPECIMENOrdering Facility: [facility] Address: [address] [place] [address] Performed By: #### 5 7021-8 ####[facility]ORY[facility]IA [id number] [place] [address] [place]#### 10529-9 ####[facility] LABCLIA [id number] [place] [address] [place] Basophils/100 WBC (Bld) 0.2 % Normal [facility] Comment on above: Order Comment: Speci men Type: BLOOD SPECIMENOrdering Facility: [facility] Address: [address] [place] [address] Performed By: #### 5 7021-8 ####[facility]ORYCLIA [id number] [place] [address] [place]#### 42751-9 ####[facility] LABCLIA [id number] [place] [id number] [place] Differential cell count method Nom (Bld) Auto Normal [facility] Comment on above: Order Comment: Speci men Type: BLOOD SPECIMENOrdering Facility: [facility] Address: [address] [place], [place] [address] Performed By: #### 5 7021-8 ####[facility]ATORYCLIA [id number] [place] [address] [place]#### 97236-9 ####[facility] [facility] LABCLIA [id number] [place] [id number] [place] Eosinophils (Bld) [#/Vol] 10*3/uL Normal <0.46 [facility] Comment on above: Order Comment: Speci men Type: BLOOD SPECIMENOrdering Facility: [facility] Address: [address] [place] [address] Performed By: #### 5 7021-8 ####[facility] LABORATORYCLIA [id number] [address]#### 19653-7 ####[facility] LABCLIA [id number] [address] [place] Eosinophils/100 WBC (Bld) 0.5 % Normal [facility] Comment on above: Order Comment: Speci men Type: BLOOD SPECIMENOrdering Facility: [facility] Address: [address] [place] [address] Performed By: #### 5 7021-8 ####[facility]ORY[facility] [id number] [address]#### 39799-7 ####[facility] LABCLIA [id number] [address] [place] Erythrocyte distribution width (RBC) [Ratio] 15.7 % High 11.5-15.0 [facility] Comment on above: Order Comment: Speci men Type: BLOOD SPECIMENOrdering Facility: [facility] Address: [address] [place] [address] Performed By: #### 5 7021-8 ####[facility] LABORATORYCLIA [id number] [address]#### 73832-9 ####[facility] LABCLIA [id number] [address] [place] Hematocrit (Bld) [Volume fraction] 26.7 % Low 39.0-51.0 [facility] Comment on above: Order Comment: Speci men Type: BLOOD SPECIMENOrdering Facility: [facility] Address: [address] [place] [address] Performed By: #### 5 7021-8 ####[facility] LABORATORYCLIA [id number] [place] [address] [facility] [place]#### 62387-2 ####[facility] LABCLIA [id number] [place] [address] [place] Hemoglobin (Bld) [Mass/Vol] 8.0 g/dL Low 13.0-17.0 [facility] Comment on above: Order Comment: Speci men Type: BLOOD SPECIMENOrdering Facility: [facility] Address: [address] [place] [address] Performed By: #### 5 7021-8 ####[facility] LABORATORYCLIA [id number] [place] [address] [place]#### 48508-3 ####[facility] LABCLIA [id number] [place] [address] [place] Immature granulocytes (Bld) [#/Vol] 10*3/uL Normal <0.10 [facility] Comment on above: Order Comment: Speci men Type: BLOOD SPECIMENOrdering Facility: [facility] Address: [address] [place] [address] Performed By: #### 5 7021-8 ####[facility] LABORATORYCLIA [id number] [place] [address] [facility] [place]#### 22912-4 ####[facility] LABCLIA [id number] [place] [address] [place] Immature granulocytes/100 WBC (Bld) 0.2 % Normal [facility] Comment on above: Order Comment: Speci men Type: BLOOD SPECIMENOrdering Facility: [facility] Address: [address] [place] [address] Performed By: #### 5 7021-8 ####[facility] LABORATORYCLIA [id number] [place] [address] [place]#### 12183-0 ####[facility] LABCLIA [id number] [place] [id number] [place] Lymphocytes (Bld) [#/Vol] 1.89 10*3/uL Normal 1.00-4.00 [facility] Comment on above: Order Comment: Speci men Type: BLOOD SPECIMENOrdering Facility: [facility] Address: [address] [place] [address] Performed By: #### 5 7021-8 ####[facility] LABORATORYCLIA [id number] [place] [address] [place]#### 42024-0 ####[facility] LABCLIA [id number] [place] [address] [place] Lymphocytes/100 WBC (Bld) 42.9 % Normal [facility] Comment on above: Order Comment: Speci men Type: BLOOD SPECIMENOrdering Facility: [facility] Address: [address] [place] [address] Performed By: #### 5 7021-8 ####[facility]ATORYCLIA [id number] [place] [address] [place]#### 51599-9 ####[facility] LABCLIA [id number] [place] [address] [place] MCH (RBC) [Entitic mass] 27.4 pg Normal 26.0-34.0 [facility] Comment on above: Order Comment: Speci men Type: BLOOD SPECIMENOrdering Facility: [facility] Address: [address] [place] [address] Performed By: #### 5 7021-8 ####[facility]ATORYCLIA [id number] [place] [address] [place]#### 29649-1 ####[facility] LABCLIA [id number] [place] [id number] [place] MCHC (RBC) [Mass/Vol] 30.0 g/dL Low 30.5-36.0 [facility] Comment on above: Order Comment: Speci men Type: BLOOD SPECIMENOrdering Facility: [facility] Address: [address] [place] [address] Performed By: #### 5 7021-8 ####[facility] LABORATORYCLIA [id number] [place] [address] [place]#### 31003-2 ####[facility] LABCLIA [id number] [place] [address] [place] MCV (RBC) [Entitic vol] 91.4 fL Normal 80.0-100.0 [facility] Comment on above: Order Comment: Speci men Type: BLOOD SPECIMENOrdering Facility: [facility] Address: [address] [place] [address] Performed By: #### 5 7021-8 ####[facility] LABORATORYCLIA [id number] [address] [place]#### 39535-5 ####[facility] LABCLIA [id number] [place] [address] [place] Monocytes (Bld) [#/Vol] 0.33 10*3/uL Normal <0.87 [facility] Comment on above: Order Comment: Speci men Type: BLOOD SPECIMENOrdering Facility: [facility] Address: [address] [place] [address] Performed By: #### 5 7021-8 ####[facility] LABORATORYCLIA [id number] [place] [address] [facility] [place]#### 68303-3 ####[facility] LABCLIA [id number] [place] [address] [place] Monocytes/100 WBC (Bld) 7.5 % Normal [facility] Comment on above: Order Comment: Speci men Type: BLOOD SPECIMENOrdering Facility: [facility] Address: [address] [place] [address] Performed By: #### 5 7021-8 ####[facility] LABORATORYCLIA [id number] [place] [address] [place]#### 01669-6 ####[facility] LABCLIA [id number] [address] [address] [place] Neutrophils (Bld) [#/Vol] 2.15 10*3/uL Normal 1.45-7.50 [facility] Comment on above: Order Comment: Speci men Type: BLOOD SPECIMENOrdering Facility: [facility] Address: [address] [place] [address] Performed By: #### 5 7021-8 ####[facility]ATORYCLIA [id number] [place] [address] [place]#### 72852-5 ####[facility] LABCLIA [id number] [place] [address] [place] Neutrophils/100 WBC (Bld) 48.7 % Normal [facility] Comment on above: Order Comment: Speci men Type: BLOOD SPECIMENOrdering Facility: [facility] Address: [address] [place] [address] Performed By: #### 5 7021-8 ####[facility]ATORYCLIA [id number] [place] [address] [place]#### 37059-3 ####[facility] LABCLIA [id number] [place] [id number] [place] Nucleated RBC (Bld) [#/Vol] 10*3/uL Normal <0.01 [facility] Comment on above: Order Comment: Speci men Type: BLOOD SPECIMENOrdering Facility: [facility] Address: [address] [place] [address] Performed By: #### 5 7021-8 ####[facility] LABORATORYCLIA [id number] [place] [address] [place]#### 07805-4 ####[facility] LABCLIA [id number] [place] [id number] [place] Nucleated RBC/100 WBC (Bld) [Ratio] 0.0 /100 WBC Normal [facility] Comment on above: Order Comment: Speci men Type: BLOOD SPECIMENOrdering Facility: [facility] Address: [address] [place] [address] Performed By: #### 5 7021-8 ####[facility] LABORATORYCLIA [id number] [address]#### 30626-5 ####[facility] LABCLIA [id number] [place] [address] [place] Platelet mean volume (Bld) [Entitic vol] 8.7 fL Low 9.0-12.7 [facility] Comment on above: Order Comment: Speci men Type: BLOOD SPECIMENOrdering Facility: [facility] Address: [address] [place] [address] Performed By: #### 5 7021-8 ####[facility] LABORATORYCLIA [id number] [address] [place]#### 09280-4 ####[facility] LABCLIA [id number] [place] [address] [place] Platelets (Bld) [#/Vol] 257 10*3/uL Normal 150-400 [facility] Comment on above: Order Comment: Speci men Type: BLOOD SPECIMENOrdering Facility: [facility] Address: [address] [place] [address] Performed By: #### 5 7021-8 ####[facility]ATORYCLIA [id number] [address] [place]#### 24089-6 ####[facility] LABCLIA [id number] [place] [address] [place] RBC (Bld) [#/Vol] 2.92 10*6/uL Low 4.20-6.00 [facility] Comment on above: Order Comment: Speci men Type: BLOOD SPECIMENOrdering Facility: [facility] Address: [address] [place] [address] [place] [address] Performed By: #### 5 7021-8 ####[facility]ATORYCLIA [id number] [place] [address] [place]#### 49626-5 ####[facility] LABCLIA [id number] [place] [address] [place] WBC (Bld) [#/Vol] 4.41 10*3/uL Normal 3.70-11.00 [facility] Comment on above: Order Comment: Speci men Type: BLOOD SPECIMENOrdering Facility: [facility] Address: [address] [place], [place] [address] [address] Performed By: #### 5 7021-8 ####[facility]ATORYCLIA [id number] [place] [address] [place]#### 29012-0 ####[facility] LABCLIA [id number] [place] [address] [place] CNPNon 01-26-2025 CNPN Normal [facility] CONSULT PROGon 01-26-2025 CONSULT PROG Normal [facility] COPPER BLOODon 01-26-2025 Copper [Mass/Vol] 158 ug/dL High 70-140 [facility] Comment on above: Order Comment: Speci men Type: BLOOD SPECIMENOrdering Facility: [facility] Address: [facility] [place] [address] Result Comment: This test was developed, and its performance characteristics determined by the [facility] Department of Pathology and Laboratory Medicine. It has not been cleared or approved by the FDA. The [facility] Department of Pathology and Laboratory Medicine is regulated under CLIA as qualified to perform high-complexity testing. This test is used for clinical purposes. It should not be regarded as investigational or for research. Performed By: #### 5 763-8, COPPER ####[facility] LABCLIA [id number] [place] [address] [place] HbA1c (Bld)on 01-26-2025 Average glucose Estimated from glycated hemoglobin (Bld) [Mass/Vol] 148 mg/dL Normal [facility] Comment on above: Order Comment: Demarco harris Type: BLOOD SPECIMENOrdering Facility: [facility] Address: [address] [place] [address] Result Comment: eAG: (Estimated average glucose) is a calculated value from HgbA1c and is promotions representative of the average blood glucose level in the last 2-3 month period. Performed By: #### 5 7021-8 ####[facility]ATORYCLIA [id number] [address]#### 36552-4 ####[facility] LABCLIA [id number] [place] [address] [place] HbA1c (Bld) [Mass fraction] 6.8 % High 4.3-5.6 [facility] Comment on above: Order Comment: Demarco harris Type: BLOOD SPECIMENOrdering Facility: [facility] Address: [address] [place] [address] Result Comment: [place] Diabetes Association guidelines indicate that patients with HgbA1c in the range 5.7-6.4% are at increased risk for development of diabetes, and intervention by lifestyle modification may be beneficial. HgbA1c greater or equal to 6.5% is considered diagnostic of diabetes. Performed By: #### 5 7021-8 ####[facility] LABORATORYCLIA [id number] [address] [place]#### 61966-4 ####[facility] LABCLIA [id number] [place] [address] [place] Hepatic function 2000 panelo n 01-26-2025 Albumin [Mass/Vol] 3.0 g/dL Low 3.9-4.9 [facility] Comment on above: Order Comment: Demarco harris Type: BLOOD SPECIMENOrdering Facility: [facility] Address: [address] [place] [address] Performed By: #### 2 4321-2, 52832-8, 89696-7, 2777-1 ####[facility]ATORYCLIA [id number] [place] [address] [place] ALP [Catalytic activity/Vol] 90 U/L Normal 38-113 [facility] Comment on above: Order Comment: Speci men Type: BLOOD SPECIMENOrdering Facility: [facility] Address: [address] [place] [address] Performed By: #### 2 4321-2, 85770-2, 26632-3, 2776-1 ####[facility] LABORATORYCLIA [id number] [place] [address] [place] ALT [Catalytic activity/Vol] 15 U/L Normal 10-54 [facility] Comment on above: Order Comment: Speci men Type: BLOOD SPECIMENOrdering Facility: [facility] Address: [address] [place] [address] Performed By: #### 2 4321-2, 11459-5, 93173-7, 2776- ####[facility] LABORATORYCLIA [id number] [address] STATES OF [facility] AST [Catalytic activity/Vol] 20 U/L Normal 14-40 [facility] Comment on above: Order Comment: Speci men Type: BLOOD SPECIMENOrdering Facility: [facility] Address: [address] [place] [address] Performed By: #### 2 4321-2, 43732-8, 45843-5, 2776-1 ####[facility] LABORATORYCLIA [id number] [address] [place] Bilirubin [Mass/Vol] 0.5 mg/dL Normal 0.2-1.3 [facility] Comment on above: Order Comment: Speci men Type: BLOOD SPECIMENOrdering Facility: [facility] Address: [address] [place] [address] Performed By: #### 2 4321-2, 61447-1, 96572-0, 2776-1 ####[facility] LABORATORYCLIA [id number] [place] [address] [facility] OF [facility] Bilirubin.conjugated [Mass/Vol] 0.2 mg/dL Normal <0.3 [facility] Comment on above: Order Comment: Speci men Type: BLOOD SPECIMENOrdering Facility: [facility] Address: [address] [place], [place] [address] Performed By: #### 2 4321-2, 25295-3, , 2776-06 ####[facility]ATORYCLIA [id number] [place] [address] [place] Protein [Mass/Vol] 5.4 g/dL Low 6.3-8.0 [facility] Comment on above: Order Comment: Speci men Type: BLOOD SPECIMENOrdering Facility: [facility] Address: [address] [place], [place] [address] Performed By: #### 2 4321-2, 39269-0, , 2776-06 ####[facility] LABORATORYCLIA [id number] [address] [place] Magnesium SerPl-mCncon 01-26 Magnesium [Mass/Vol] 1.8 mg/dL Normal 1.7-2.3 [facility] Comment on above: Order Comment: Speci men Type: BLOOD SPECIMENOrdering Facility: [facility] Address: [address] [place], [place] [address] Performed By: #### 2 4321-2, 26071-4, , 2776-06 ####[facility]ATORYCLIA [id number] [place] [address] [place] NUTRITIONon 01-26-2025 NUTRITION Normal [facility] Phosphate SerPl-mCncon 01-26 Phosphate [Mass/Vol] 2.3 mg/dL Low 2.7-4.8 [facility] Comment on above: Order Comment: Speci men Type: BLOOD SPECIMENOrdering Facility: [facility] Address: [address] [place] [address] Performed By: #### 2 4321-2, 96390-2, , 2776-06 ####[facility] LABORATORYCLIA [id number] [place] [id number] [place] THERAPY NTon 01-26-2025 THERAPY NT Normal [facility] Zinc SerPl-mCncon 01-26-2025 Zinc [Mass/Vol] 49 ug/dL Low 60-120 [facility] Comment on above: Order Comment: Speci men Type: BLOOD SPECIMENOrdering Facility: [facility] Address: [address] [place] [address] Result Comment: This test was developed, and its performance characteristics determined by the [facility] Department of Pathology and Laboratory Medicine. It has not been cleared or approved by the FDA. The [facility] Department of Pathology and Laboratory Medicine is regulated under CLIA as qualified to perform high-complexity testing. This test is used for clinical purposes. It should not be regarded as investigational or for research. Performed By: #### 5 763-8, COPPER ####[facility] LABCLIA [id number] [place] [address] [place] Basic metabolic 2000 panelon 01-25-2025 Anion gap [Moles/Vol] 11 mmol/L Normal 8-15 [facility] Comment on above: Order Comment: Demarco harris Type: BLOOD SPECIMENOrdering Facility: [facility] Address: [address] [place] [address] Performed By: #### 2 4325-3, 2276-4, 59393-4, 73779-7, 2777-1, 08483-6 ####[facility] [id number] [place] [id number] [place] Calcium [Mass/Vol] 8.0 mg/dL Low 8.5-10.2 [facility] Comment on above: Order Comment: Speci men Type: BLOOD SPECIMENOrdering Facility: [facility] Address: [address] [place] [address] Performed By: #### 2 4325-3, 2276-4, 85949-8, 17417-3, 2777-1, 16619-4 ####[facility]ATORYCLIA [id number] [place] [id number] [place] Chloride [Moles/Vol] 107 mmol/L Normal 98-107 [facility] Comment on above: Order Comment: Speci men Type: BLOOD SPECIMENOrdering Facility: [facility] Address: [address] [place] [address] Performed By: #### 2 4325-3, 2276-4, 64403-3, 62807-2, 2777-1, 33594-0 ####[facility] LABORATORYCLIA [id number] [place] [id number] [place] CO2 [Moles/Vol] 21 mmol/L Low 22-30 [facility] Comment on above: Order Comment: Speci men Type: BLOOD SPECIMENOrdering Facility: [facility] Address: [address] [place] [address] Performed By: #### 2 4325-3, 2276-4, 15227-7, 93220-4, 2777-1, 57562-4 ####[facility]ATORYCLIA [id number] [place] [address] [place] Creatinine [Mass/Vol] 1.10 mg/dL Normal 0.73-1.22 [facility] Comment on above: Order Comment: Speci men Type: BLOOD SPECIMENOrdering Facility: [facility] Address: [address] [place] [address] Performed By: #### 2 4325-3, 6-4, 20112-4, 59871-2, 2777-1, 48005-2 ####[facility]ATORYCLIA [id number] [place] [id number] [place] eGFRcr SerPlBld CKD-EPI 2020 70 mL/min/1.73m??? Normal >=60 [facility] Comment on above: Order Comment: Speci men Type: BLOOD SPECIMENOrdering Facility: [facility] Address: [address] [place] [address] Result Comment: Nancy mated Glomerular Filtration Rate (eGFR) is calculated using the 2020 CKD-EPI creatinine equation. This equation utilizes serum creatinine, sex, and age as parameters. The creatinine assay has traceable calibration to isotope dilution-mass spectrometry. Refer to KDIGO guidelines for clinical interpretation. In patients with unstable renal function, e.g. those with acute kidney injury, the eGFR may not accurately reflect actual GFR. Performed By: #### 2 4325-3, 2276-4, 89801-9, 81394-4, 2777-1, 63559-2 ####[facility]ORATORYCLIA [id number] [place] [address] [place] Glucose [Mass/Vol] 237 mg/dL High 74-99 [facility] Comment on above: Order Comment: Demarco harris Type: BLOOD SPECIMENOrdering Facility: [facility] Address: [address] [place] [address] Result Comment: The [place] Diabetes Association (ADA) provides guidance for cutoff values for fasting glucose and random glucose. The ADA defines fasting as no caloric intake for at least 8 hours. Fasting plasma glucose results between 100 to 125 mg/dL indicate increased risk for diabetes (prediabetes).Fasting plasma glucose results greater than or equal to 126 mg/dL meet the criteria for diagnosis of diabetes. In the absence of unequivocal hyperglycemia, results should be confirmed by repeat testing. In a patient with classic symptoms of hyperglycemia or hyperglycemic crisis, random plasma glucose results greater than or equal to 200 mg/dL meet the criteria for diagnosis of diabetes.Reference: Standards of Medical Care in Diabetes 2016, [place] Diabetes Association. Diabetes Care. 2016.39(Suppl 1). Performed By: #### 2 4325-3, 6-4, 91677-8, 72599-8, 2777-1, 12503-1 ####[facility]ATORYCLIA [id number] [place] [id number] [place] Potassium [Moles/Vol] 4.2 mmol/L Normal 3.7-5.1 [facility] Comment on above: Order Comment: Demarco harris Type: BLOOD SPECIMENOrdering Facility: [facility] Address: [address] [place] [address] Performed By: #### 2 4325-3, 6-4, 41384-2, 81528-4, 2777-1, 64017-1 ####[facility]ORYCLIA [id number] [place] [id number] [place] Sodium [Moles/Vol] 139 mmol/L Normal 136-144 [facility] Comment on above: Order Comment: Demarco harris Type: BLOOD SPECIMENOrdering Facility: [facility] Address: [address] [place] [address] Performed By: #### 2 4325-3, 6-4, 58779-1, 11369-1, 2777-1, 95313-9 ####[facility] LABORATORYCLIA [id number] [place] [address] [place] Urea nitrogen [Mass/Vol] 19 mg/dL Normal 9- [facility] Comment on above: Order Comment: Speci men Type: BLOOD SPECIMENOrdering Facility: [facility] Address: [address] [place] [address] Performed By: #### 2 4325-3, 6-4, 35799-0, 08704-9, 2777-1, 41053-3 ####[facility] LABORATORYCLIA [id number] [place] [address] [place] CASE MGT INIT [facility] 2024 CASE MGT INIT [facility] CBC W Auto Differential pane l (Bld)on 01-25-2025 Basophils (Bld) [#/Vol] 10*3/uL Normal <0.11 [facility] Comment on above: Order Comment: Speci men Type: BLOOD SPECIMENOrdering Facility: [facility] Address: [address] [place] [address] Performed By: #### 1 4196-0, 00588-5 ####[facility] LABORATORYCLIA [id number] [address] [place] Basophils/100 WBC (Bld) 0.2 % Normal [facility] Comment on above: Order Comment: Speci men Type: BLOOD SPECIMENOrdering Facility: [facility] Address: [address] [place] [address] Performed By: #### 1 4196-0, 55261-4 ####[facility] LABORATORYCLIA [id number] [address] STATES OF [facility] Differential cell count method Nom (Bld) Auto [facility] Comment on above: Order Comment: Speci men Type: BLOOD SPECIMENOrdering Facility: [facility] Address: [address] [place] [address] Performed By: #### 1 4196-0, 69772-3 ####HERRERA LABORATORYCLIA [id number] [place] [address] [place] Eosinophils (Bld) [#/Vol] 10*3/uL Normal <0.46 [facility] Comment on above: Order Comment: Speci men Type: BLOOD SPECIMENOrdering Facility: [facility] Address: [address] [place] [address] Performed By: #### 1 4196-0, 25592-1 ####HERRERA LABORATORYCLIA [id number] [place] [address] [place] Eosinophils/100 WBC (Bld) 0.2 % Normal [facility] Comment on above: Order Comment: Speci men Type: BLOOD SPECIMENOrdering Facility: [facility] Address: [address] [place] [address] Performed By: #### 1 4196-0, 14242-6 ####[facility] LABORATORYCLIA [id number] [address] [place] Erythrocyte distribution width (RBC) [Ratio] 15.6 % High 11.5-15.0 [facility] Comment on above: Order Comment: Speci men Type: BLOOD SPECIMENOrdering Facility: [facility] Address: [address] [place] [address] Performed By: #### 1 4196-0, 26052-5 ####[facility] LABORATORYCLIA [id number] [address] [place] Hematocrit (Bld) [Volume fraction] 25.0 % Low 39.0-51.0 [facility] Comment on above: Order Comment: Speci men Type: BLOOD SPECIMENOrdering Facility: [facility] Address: [address] [place] [address] Performed By: #### 1 4196-0, 71265-9 ####H[facility] LABORATORYCLIA [id number] [place] [address] [place] Hemoglobin (Bld) [Mass/Vol] 7.4 g/dL Low 13.0-17.0 [facility] Comment on above: Order Comment: Speci men Type: BLOOD SPECIMENOrdering Facility: [facility] Address: [address] [place] [address] Performed By: #### 1 4196-0, 10510-4 ####[facility] LABORATORYCLIA [id number] [place] [address] [place] Immature granulocytes (Bld) [#/Vol] 10*3/uL Normal <0.10 [facility] Comment on above: Order Comment: Speci men Type: BLOOD SPECIMENOrdering Facility: [facility] Address: [address] [place] [address] Performed By: #### 1 4196-0, ####H[facility] LABORATORYCLIA [id number] [address] [place] Immature granulocytes/100 WBC (Bld) 0.5 % Normal [facility] Comment on above: Order Comment: Speci men Type: BLOOD SPECIMENOrdering Facility: [facility] Address: [address] [place] [address] Performed By: #### 1 4196-0, ####HERRERA LABORATORYCLIA [id number] [place] [address] [place] Lymphocytes (Bld) [#/Vol] 1.64 10*3/uL Normal 1.00-4.00 [facility] Comment on above: Order Comment: Speci men Type: BLOOD SPECIMENOrdering Facility: [facility] Address: [address] [place] [address] Performed By: #### 1 4196-0, ####HERRERA LABORATORYCLIA [id number] [address] [place] Lymphocytes/100 WBC (Bld) 39.3 % Normal [facility] Comment on above: Order Comment: Speci men Type: BLOOD SPECIMENOrdering Facility: [facility] Address: [address] [place] [address] Performed By: #### 1 4196-0, 49261-7 ####HERRERA LABORATORYCLIA [id number] [place] [address] [place] MCH (RBC) [Entitic mass] 27.3 pg Normal 26.0-34.0 [facility] Comment on above: Order Comment: Speci men Type: BLOOD SPECIMENOrdering Facility: [facility] Address: [address] [place] [address] Performed By: #### 1 4196-0, 20542-0 ####HERRERA LABORATORYCLIA [id number] [address] STATES [facility] MCHC (RBC) [Mass/Vol] 29.6 g/dL Low 30.5-36.0 [facility] Comment on above: Order Comment: Speci men Type: BLOOD SPECIMENOrdering Facility: [facility] Address: [address] [place] [address] Performed By: #### 1 4196-0, 68640-7 ####HERRERA LABORATORYCLIA [id number] [address] STATES [facility] MCV (RBC) [Entitic vol] 92.3 fL Normal 80.0-100.0 [facility] Comment on above: Order Comment: Speci men Type: BLOOD SPECIMENOrdering Facility: [facility] Address: [address] [place] [address] Performed By: #### 1 4196-0, ####HERRERA LABORATORYCLIA [id number] [address] [place] Monocytes (Bld) [#/Vol] 0.23 10*3/uL Normal <0.87 [facility] Comment on above: Order Comment: Speci men Type: BLOOD SPECIMENOrdering Facility: [facility] Address: [address] [place] [address] Performed By: #### 1 4196-0, ####HERRERA LABORATORYCLIA [id number] [address] Monocytes/100 WBC (Bld) 5.5 % Normal [facility] Comment on above: Order Comment: Speci men Type: BLOOD SPECIMENOrdering Facility: [facility] Address: [address] [place] [address] Performed By: #### 1 4196-0, 62056-0 ####HERRERA LABORATORYCLIA [id number] [address] [place] Neutrophils (Bld) [#/Vol] 2.26 10*3/uL Normal 1.45-7.50 [facility] Comment on above: Order Comment: Speci men Type: BLOOD SPECIMENOrdering Facility: [facility] Address: [address] [place] [address] Performed By: #### 1 4196-0, ####HERRERA LABORATORYCLIA [id number] [place] [address] [place] Neutrophils/100 WBC (Bld) 54.3 % Normal [facility] Comment on above: Order Comment: Speci men Type: BLOOD SPECIMENOrdering Facility: [facility] Address: [address] [place] [address] Performed By: #### 1 4196-0, ####HERRERA LABORATORYCLIA [id number] [place] [address] [place] Nucleated RBC (Bld) [#/Vol] 10*3/uL Normal <0.01 [facility] Comment on above: Order Comment: Speci men Type: BLOOD SPECIMENOrdering Facility: [facility] Address: [address] [place] [address] Performed By: #### 1 4196-0, ####HERRERA LABORATORYCLIA [id number] [place] [address] [place] Nucleated RBC/100 WBC (Bld) [Ratio] 0.0 /100 WBC Normal [facility] Comment on above: Order Comment: Speci men Type: BLOOD SPECIMENOrdering Facility: [facility] Address: [address] [place] [address] Performed By: #### 1 4196-0, ####HERRERA LABORATORYCLIA [id number] [place] [address] [place] Platelet mean volume (Bld) [Entitic vol] 8.9 fL Low 9.0-12.7 [facility] Comment on above: Order Comment: Speci men Type: BLOOD SPECIMENOrdering Facility: [facility] Address: [address] [place] [address] Performed By: #### 1 4196-0, 54133-6 ####HERRERA LABORATORYCLIA [id number] [place] [address] [place] Platelets (Bld) [#/Vol] 242 10*3/uL Normal 150-400 [facility] Comment on above: Order Comment: Speci men Type: BLOOD SPECIMENOrdering Facility: [facility] Address: [address] [place] [address] Performed By: #### 1 4196-0, 37283-9 ####[facility] LABORATORYCLIA [id number] [place] [id number] [place] RBC (Bld) [#/Vol] 2.71 10*6/uL Low 4.20-6.00 [facility] Comment on above: Order Comment: Speci men Type: BLOOD SPECIMENOrdering Facility: [facility] Address: [address] [place] [address] Performed By: #### 1 4196-0, 77213-7 ####[facility] LABORATORYCLIA [id number] [place] [address] [place] WBC (Bld) [#/Vol] 4.17 10*3/uL Normal 3.70-11.00 [facility] Comment on above: Order Comment: Speci men Type: BLOOD SPECIMENOrdering Facility: [facility] Address: [address] [place] [address] Performed By: #### 1 4196-0, 13998-1 ####[facility] LABORATORYCLIA [id number] [place] [id number] [place] CONSULTon 01-25-2025 CONSULT Normal [facility] CONSULT Normal [facility] Ferritin SerPl-mCncon 2024 Ferritin [Mass/Vol] 1401.0 ng/mL High 30.3-565.7 [facility] Comment on above: Order Comment: Speci men Type: BLOOD SPECIMENOrdering Facility: [facility] Address: [address] [place] [address] Performed By: #### 2 4325-3, 2276-4, 53172-8, 44976-8, 2777-1, 91163-6 ####HERRERA LABORATORYCLIA [id number] [place] [address] [facility] Hepatic function 2000 panelo n 01-25-2025 Albumin [Mass/Vol] 2.7 g/dL Low 3.9-4.9 [facility] Comment on above: Order Comment: Speci men Type: BLOOD SPECIMENOrdering Facility: [facility] Address: [address] [place] [address] Performed By: #### 2 4325-3, 6-4, 69706-6, 00336-3, 2777-1, 41806-7 ####HERRER[facility] LABORATORYCLIA [id number] [place] [id number] [place] ALP [Catalytic activity/Vol] 85 U/L Normal 38-113 [facility] Comment on above: Order Comment: Speci men Type: BLOOD SPECIMENOrdering Facility: [facility] Address: [address] [place] [address] Performed By: #### 2 4325-3, 6-4, 52790-3, 85189-3, 2777-1, 63179-2 ####H[facility] LABORATORYCLIA [id number] [place] [id number] [place] ALT [Catalytic activity/Vol] 16 U/L Normal 10-54 [facility] Comment on above: Order Comment: Speci men Type: BLOOD SPECIMENOrdering Facility: [facility] Address: [address] [place] [address] Performed By: #### 2 4325-3, 6-4, 15490-2, 86016-8, 2777-1, 32739-9 ####[facility] LABORATORYCLIA [id number] [place] [id number] [facility] AST [Catalytic activity/Vol] 22 U/L Normal 14-40 [facility] Comment on above: Order Comment: Speci men Type: BLOOD SPECIMENOrdering Facility: [facility] Address: [address] [place] [address] Performed By: #### 2 4325-3, 6-4, 82379-7, 81761-0, 2777-1, 20838-1 ####H[facility] LABORATORYCLIA [id number] [place] [id number] [place] Bilirubin [Mass/Vol] 0.5 mg/dL Normal 0.2-1.3 [facility] Comment on above: Order Comment: Speci men Type: BLOOD SPECIMENOrdering Facility: [facility] Address: [address] [place] [address] Performed By: #### 2 4325-3, 6-4, 54061-1, 46457-8, 2777-1, 20217-9 ####[facility] LABORATORYCLIA [id number] [place] [id number] [place] Bilirubin.conjugated [Mass/Vol] 0.2 mg/dL Normal <0.3 [facility] Comment on above: Order Comment: Speci men Type: BLOOD SPECIMENOrdering Facility: [facility] Address: [address] [place] [address] Performed By: #### 2 4325-3, 6-4, 70793-0, 19747-2, 2777-1, 16270-5 ####[facility] LABORATORYCLIA [id number] [place] [address] [place] Protein [Mass/Vol] 5.1 g/dL Low 6.3-8.0 [facility] Comment on above: Order Comment: Speci men Type: BLOOD SPECIMENOrdering Facility: [facility] Address: [address] [place] [address] Performed By: #### 2 4325-3, 6-4, 76769-5, 86774-8, 2777-1, 68491-6 ####[facility] LABORATORYCLIA [id number] [place] [id number] [place] Iron and Iron binding capaci ty panelon 01-25-2025 Iron [Mass/Vol] 18 ug/dL Low 41-186 [facility] Comment on above: Order Comment: Speci men Type: BLOOD SPECIMENOrdering Facility: [facility] Address: [address] [place] [address] Performed By: #### 2 4325-3, 6-4, 93832-1, 13606-0, 2777-1, 46527-3 ####HERRER[facility] LABORATORYCLIA [id number] [place] [address] [place] Iron binding capacity [Mass/Vol] 128 ug/dL Low 232-386 [facility] Comment on above: Order Comment: Speci men Type: BLOOD SPECIMENOrdering Facility: [facility] Address: [address] [place] [address] Performed By: #### 2 4325-3, 6-4, 84670-8, 95051-0, 2777-1, 80221-1 ####HERRER[facility] LABORATORYCLIA [id number] [place] [address] [place] Iron/TIBC [Molar ratio] 14.1 % Low 15.0-57.0 M [facility] Comment on above: Order Comment: Speci men Type: BLOOD SPECIMENOrdering Facility: [facility] Address: [address] [place] [address] Performed By: #### 2 4325-3, 6-4, 37064-5, 67285-2, 2777-1, 60886-5 ####[facility] LABORATORYCLIA [id number] [place] [address] [place] Magnesium SerPl-mCncon 01-25 Magnesium [Mass/Vol] 2.0 mg/dL Normal 1.7-2.3 [facility] Comment on above: Order Comment: Speci men Type: BLOOD SPECIMENOrdering Facility: [facility] Address: [address] [place], [place] [address] Performed By: #### 2 4325-3, 6-4, 80085-6, 25575-9, 2777-1, 74185-8 ####[facility] LABORATORYCLIA [id number] [place] [address] [place] Phosphate SerPl-mCncon 01-25 Phosphate [Mass/Vol] 3.0 mg/dL Normal 2.7-4.8 [facility] Comment on above: Order Comment: Speci men Type: BLOOD SPECIMENOrdering Facility: [facility] Address: [address] [place] [address] Performed By: #### 2 4325-3, 2276-4, 55221-0, 19463-0, 2777-1, 45130-0 ####[facility] LABORATORYCLIA [id number] [place] [address] [place] Retics #on 01-25-2025 Reticulocytes (Bld) [#/Vol] 0.56376 10*3/uL High 0.018-0.10 0 [facility] Comment on above: Order Comment: Speci men Type: BLOOD SPECIMENOrdering Facility: [facility] Address: [address] [place] [address] Performed By: #### 1 4196-0, 26047-2 ####[facility] LABORATORYCLIA [id number] [place] [address] [place] Reticulocytes (Bld) [#/Vol]o n 01-25-2025 Reticulocytes/100 RBC (Bld) 4.4 % High 0.4-2.0 [facility] Comment on above: Order Comment: Speci men Type: BLOOD SPECIMENOrdering Facility: [facility] Address: [address] [place] [address] Performed By: #### 1 4196-0, 92372-6 ####[facility] LABORATORYCLIA [id number] [address] [place] ABO AND RH ONLYon 01-24-2025 ABO A Normal [facility] Comment on above: Order Comment: Speci men Type: BLOOD SPECIMENOrdering Facility: [facility] Address: [address] [place] [address] Result Comment: Danielle ected result: Previously reported as Indeterminate ABO on 01/24/2025 at 8:36 PM EDT. Performed By: #### A [facility], [id number], ABORH, WKUP2 ####[facility] BLOOD BANKCLIA [id number] [place] [address] [place] Rh Nom (Bld) Invalid result Normal [facility] Comment on above: Order Comment: Speci men Type: BLOOD SPECIMENOrdering Facility: [facility] Address: [address] [place] [address] Performed By: #### A SCR, [id number], ABOR, WKUP2 ####[facility] BLOOD BANKCLIA [id number] [place] [address] [place] ALLIED HEALTHon 01-24-2025 ALLIED HEALTH [facility] ANTIBODY ID PATIENTon 2024 ANTIBODY IDENTIFIED Detected [facility] Comment on above: Order Comment: Speci men Type: BLOOD SPECIMENOrdering Facility: [facility] Address: [address] [place] [address] Result Comment: Test ing Performed at the [facility] Performed By: #### % MARYANN, [id number], TSCR, DAGT ####[facility] BLOOD BANKCLIA [id number] [place] [id number] [place] ANTIBODY SCREENon 01-24-2025 TYPE AND SCREEN EXPIRATION 01/27/2025 23:59 [facility] Comment on above: Order Comment: Speci men Type: BLOOD SPECIMENOrdering Facility: [facility] Address: [address] [place] [address] Performed By: #### A SCR, [id number], ABOR, WKUP2 ####[facility] BLOOD BANKCLIA [id number] [address] ANTIBODY WORKUP(2)on 025 ADDITIONAL SPECIMENS Received in [facility] Comment on above: Order Comment: Speci men Type: BLOOD SPECIMENOrdering Facility: [facility] Address: [address] [place] [address] Performed By: #### A SCR, [id number], ABOR, WKUP2 ####[facility] BLOOD BANKCLIA [id number] [place] [id number] [facility] ANTIBODY WORKUP(4)on 025 ADDITIONAL SPECIMENS Received in [facility] Comment on above: Order Comment: Speci men Type: BLOOD SPECIMENOrdering Facility: [facility] Address: [address] [place] [address] Result Comment: Samp le sent to a Reference Laboratory for additional testing Performed By: #### W KUP4 ####[facility] BLOOD BANKCLIA [id number] [place], [place] [address] [place] [address] OF [facility] ARTERIAL BLOOD GASESon 01-24 Base excess Calc (Bld) [Moles/Vol] 0 mmol/L Normal 0-2 [facility] Comment on above: Order Comment: Speci men Type: ARTERIAL BLOOD SPECIMENOrdering Facility: [facility] Address: [address] [place] [address] Performed By: #### A LLBG ####[facility] [id number] [facility] RES[facility]IRAT[facility] [id number] [place] [address] Calcium.ionized (Bld) [Mass/Vol] 1.14 mmol/L Normal 1.08-1.30 [facility] Comment on above: Order Comment: Speci men Type: ARTERIAL BLOOD SPECIMENOrdering Facility: [facility] Address: [address] [place] [address] Performed By: #### A LLBG ####[facility] [id number] [facility] RESPIRATORY [id number] [place] [address] Carboxyhemoglobin (BldA) [Mass fraction] 2.6 % High 0.0-2.0 [facility] Comment on above: Order Comment: Speci men Type: ARTERIAL BLOOD SPECIMENOrdering Facility: [facility] Address: [address] [place] [address] Result Comment: Carb oxyhemoglobin Reference Range for Smokers: 2.0-8.0% Performed By: #### A LLBG ####[facility] [id number] [facility] RESPIRAT[facility] [id number] [address] [address] CO2 (Bld) [Partial pressure] 33 mm Hg Low 36-46 [facility] Comment on above: Order Comment: Speci men Type: ARTERIAL BLOOD SPECIMENOrdering Facility: [facility] Address: [address] [place] [address] Performed By: #### A LLBG ####[facility] [id number] [facility] RESPIRATORY [id number] [address] [address] CO2 adjusted to patient's actual temperature (Bld) [Partial pressure] Normal [facility] Comment on above: Order Comment: Speci men Type: ARTERIAL BLOOD SPECIMENOrdering Facility: [facility] Address: [address] [place] [address] Performed By: #### A LLBG ####[facility] RESPIRATORYCLIA [id number] [facility]OS[facility] RESPIRATORY [id number] [address] [address] HCO3 (Bld) [Moles/Vol] 24 mmol/L Normal 22-26 [facility] Comment on above: Order Comment: Speci men Type: ARTERIAL BLOOD SPECIMENOrdering Facility: [facility] Address: [address] [place] [address] Performed By: #### A LLBG ####[facility] RESPIRATORYCLIA [id number] [facility]PIRAT[facility] [id number] [address] [address] Hemoglobin (Bld) [Mass/Vol] 7.4 g/dL Low 13.0-17.0 [facility] Comment on above: Order Comment: Speci men Type: ARTERIAL BLOOD SPECIMENOrdering Facility: [facility] Address: [address] [place] [address] Performed By: #### A LLBG ####[facility] RESPIRATORYCLIA [id number] [facility]OS[facility] RESPIRATORY [id number] [address] [address] Lactate [Moles/Vol] 0.4 mmol/L Low 0.5-2.2 [facility] Comment on above: Order Comment: Speci men Type: ARTERIAL BLOOD SPECIMENOrdering Facility: [facility] Address: [address] [place] [address] Performed By: #### A LLBG ####[facility] RESPIRATORYCLIA [id number] [facility]OS[facility] RESPIRATORY [id number] [address] [address] Methemoglobin (Bld) [Mass fraction] % Normal 0.0-1.5 [facility] Comment on above: Order Comment: Speci men Type: ARTERIAL BLOOD SPECIMENOrdering Facility: [facility] Address: [address] [place] [address] Performed By: #### A LLBG ####[facility] RESPIRATORYCLIA [id number] [facility]OS[facility] RESPIRATORY [id number] [address] [address] O2 THERAPY RA=Room Air Normal [facility] Comment on above: Order Comment: Speci men Type: ARTERIAL BLOOD SPECIMENOrdering Facility: [facility] Address: [address] [place] [address] Performed By: #### A LLBG ####[facility] [id number] [facility] RESPIRAT[facility] [id number] [address] [address] Oxygen (Bld) [Partial pressure] 83 mm Hg Low 85-95 [facility] Comment on above: Order Comment: Speci men Type: ARTERIAL BLOOD SPECIMENOrdering Facility: [facility] Address: [address] [place] [address] Performed By: #### A LLBG ####[facility] [id number] [facility] RESPIRATORY [id number] [address] [address] Oxygen adjusted to patient's actual temperature (Bld) [Partial pressure] Normal [facility] Comment on above: Order Comment: Speci men Type: ARTERIAL BLOOD SPECIMENOrdering Facility: [facility] Address: [address] [place] [address] Performed By: #### A LLBG ####[facility] [id number] [facility]OS[facility] RESPIRATORY [id number] [address] [address] Oxyhemoglobin (BldA) [Mass fraction] 96 % Normal 95-98 [facility] Comment on above: Order Comment: Speci men Type: ARTERIAL BLOOD SPECIMENOrdering Facility: [facility] Address: [address] [place] [address] Performed By: #### A LLBG ####[facility] [id number] [facility]OS[facility] RESPIRATORY [id number] [address] [address] pH (Bld) 7.46 [pH] High 7.35-7.45 [facility] Comment on above: Order Comment: Speci men Type: ARTERIAL BLOOD SPECIMENOrdering Facility: [facility] Address: [address] [place] [address] Performed By: #### A LLBG ####[facility] RESPIRATORYCLIA [id number] [facility] RESPIRATORY [id number] [address] [address] pH adjusted to patient's actual temperature (Bld) Normal [facility] Comment on above: Order Comment: Speci men Type: ARTERIAL BLOOD SPECIMENOrdering Facility: [facility] Address: [address] [place] [address] Performed By: #### A LLBG ####[facility] RESPIRATORYCLIA [id number] [facility] RESPIRAT[facility] [id number] [address] [address] PO2 / FIO2 RATIO 395 mmHg Normal >300 [facility] Comment on above: Order Comment: Speci men Type: ARTERIAL BLOOD SPECIMENOrdering Facility: [facility] Address: [address] [place] [address] Performed By: #### A LLBG ####[facility] RESPIRATORYCLIA [id number] [facility]OS[facility] RESPIRATORY [id number] [place] [address] Potassium [Moles/Vol] 3.4 mmol/L Low 3.5-5.0 [facility] Comment on above: Order Comment: Speci men Type: ARTERIAL BLOOD SPECIMENOrdering Facility: [facility] Address: [address] [place] [address] Performed By: #### A LLBG ####[facility] RESPIRATORYIA [id number] [facility]OSP[facility] RESPIRATORY [id number] [address] [address] Ammonia Plas-sCncon 01-25-20 25 Ammonia (P) [Moles/Vol] 18 umol/L Normal 16-60 M [facility] Comment on above: Order Comment: Speci men Type: BLOOD SPECIMENOrdering Facility: [facility] Address: [address] [place] [address] Performed By: #### 1 6362-6 ####[facility] LABORATORYCLIA [id number] [place], [place] [id number] [place] [address] [place] B-HYDROXYBUTYRATEon 01-25-20 25 Beta hydroxybutyrate [Moles/Vol] 0.30 mmol/L High <0.28 [facility] Comment on above: Order Comment: Speci men Type: BLOOD SPECIMENOrdering Facility: [facility] Address: [address] [place] [address] Performed By: #### L [id number], 3040-3, BHB, 2157-6, 45756-7 ####[facility] LABORATORYCLIA [id number] [address] BLOOD BANK COMMENTon [facility] BLOOD BANK COMMENT See Comment Normal [facility] Comment on above: Order Comment: Speci men Type: BLOOD SPECIMENOrdering Facility: [facility] Address: [address] [place] [address] Result Comment: Nuvia chung observed Performed By: #### A SCR, [id number], ABORH, [id number] ####[facility] BLOOD BANKCLIA [id number] [address] BLOOD BANK COMMENT See Comment [facility] Comment on above: Order Comment: Speci men Type: BLOOD SPECIMENOrdering Facility: [facility] Address: [address] [place] [address] Result Comment: See scanned documents for final ARC report. Performed By: #### % MARYANN, [id number], TSCR, DAGT ####[place] BLOOD BANKCLIA [id number] [address] CBC W Auto Differential pane l (Bld)on 01-24-2025 Basophils (Bld) [#/Vol] 10*3/uL Normal <0.11 [facility] Comment on above: Order Comment: Speci men Type: BLOOD SPECIMENOrdering Facility: [facility] Address: [address] [place] [address] Performed By: #### 5 7021-8 ####[facility] LABORATORYCLIA [id number] [address] Basophils/100 WBC (Bld) 0.4 % Normal [facility] Comment on above: Order Comment: Speci men Type: BLOOD SPECIMENOrdering Facility: [facility] Address: [address] [place] [address] Performed By: #### 5 7021-8 ####[facility] LABORATORYCLIA [id number] [address] [place] Differential cell count method Nom (Bld) Auto Normal [facility] Comment on above: Order Comment: Speci men Type: BLOOD SPECIMENOrdering Facility: [facility] Address: [address] [place] [address] Performed By: #### 5 7021-8 ####[facility] LABORATORYCLIA [id number] [place] [address] [place] Eosinophils (Bld) [#/Vol] 10*3/uL Normal <0.46 [facility] Comment on above: Order Comment: Speci men Type: BLOOD SPECIMENOrdering Facility: [facility] Address: [address] [place] [address] Performed By: #### 5 7021-8 ####[facility] LABORATORYCLIA [id number] [address] [place] Eosinophils/100 WBC (Bld) 0.4 % Normal [facility] Comment on above: Order Comment: Speci men Type: BLOOD SPECIMENOrdering Facility: [facility] Address: [address] [place] [address] Performed By: #### 5 7021-8 ####[facility] LABORATORYCLIA [id number] [address] [place] Erythrocyte distribution width (RBC) [Ratio] 15.8 % High 11.5-15.0 [facility] Comment on above: Order Comment: Speci men Type: BLOOD SPECIMENOrdering Facility: [facility] Address: [address] [place] [address] Performed By: #### 5 7021-8 ####H[facility] LABORATORYCLIA [id number] [address] [place] Hematocrit (Bld) [Volume fraction] 25.1 % Low 39.0-51.0 [facility] Comment on above: Order Comment: Speci men Type: BLOOD SPECIMENOrdering Facility: [facility] Address: [address] [place] [address] Performed By: #### 5 7021-8 ####H[facility]ER[facility] LABORATORYCLIA [id number] [place] [address] [place] Hemoglobin (Bld) [Mass/Vol] 7.9 g/dL Low 13.0-17.0 [facility] Comment on above: Order Comment: Speci men Type: BLOOD SPECIMENOrdering Facility: [facility] Address: [address] [place] [address] Performed By: #### 5 7021-8 ####H[facility] LABORATORYCLIA [id number] [place] [address] [place] Immature granulocytes (Bld) [#/Vol] 10*3/uL Normal <0.10 [facility] Comment on above: Order Comment: Speci men Type: BLOOD SPECIMENOrdering Facility: [facility] Address: [address] [place] [address] Performed By: #### 5 7021-8 ####H[facility] LABORATORYCLIA [id number] [address] [place] Immature granulocytes/100 WBC (Bld) 0.4 % Normal [facility] Comment on above: Order Comment: Speci men Type: BLOOD SPECIMENOrdering Facility: [facility] Address: [address] [place] [address] Performed By: #### 5 7021-8 ####HERRERA LABORATORYCLIA [id number] [place] [address] [place] Lymphocytes (Bld) [#/Vol] 2.37 10*3/uL Normal 1.00-4.00 [facility] Comment on above: Order Comment: Speci men Type: BLOOD SPECIMENOrdering Facility: [facility] Address: [address] [place] [address] Performed By: #### 5 7021-8 ####H[facility]ER[facility] LABORATORYCLIA [id number] [place] [address] [place] Lymphocytes/100 WBC (Bld) 49.2 % Normal [facility] Comment on above: Order Comment: Speci men Type: BLOOD SPECIMENOrdering Facility: [facility] Address: [address] [place] [address] Performed By: #### 5 7021-8 ####H[facility]ERA LABORATORYCLIA [id number] [address] MCH (RBC) [Entitic mass] 28.5 pg Normal 26.0-34.0 [facility] Comment on above: Order Comment: Speci men Type: BLOOD SPECIMENOrdering Facility: [facility] Address: [address] [place] [address] Performed By: #### 5 7021-8 ####HERRERA LABORATORYCLIA [id number] [address] [place] MCHC (RBC) [Mass/Vol] 31.5 g/dL Normal 30.5-36.0 [facility] Comment on above: Order Comment: Speci men Type: BLOOD SPECIMENOrdering Facility: [facility] Address: [address] [place] [address] Performed By: #### 5 7021-8 ####HERRERA LABORATORYCLIA [id number] [address] MCV (RBC) [Entitic vol] 90.6 fL Normal 80.0-100.0 [facility] Comment on above: Order Comment: Speci men Type: BLOOD SPECIMENOrdering Facility: [facility] Address: [address] [place] [address] Performed By: #### 5 7021-8 ####HERRERA LABORATORYCLIA [id number] [address] Monocytes (Bld) [#/Vol] 0.34 10*3/uL Normal <0.87 [facility] Comment on above: Order Comment: Speci men Type: BLOOD SPECIMENOrdering Facility: [facility] Address: [address] [place] [address] Performed By: #### 5 7021-8 ####HERRERA LABORATORYCLIA [id number] [address] Monocytes/100 WBC (Bld) 7.1 % Normal [facility] Comment on above: Order Comment: Speci men Type: BLOOD SPECIMENOrdering Facility: [facility] Address: [address] [place] [address] Performed By: #### 5 7021-8 ####HERRER[facility] LABORATORYCLIA [id number] [place] [address] [place] Neutrophils (Bld) [#/Vol] 2.05 10*3/uL Normal 1.45-7.50 [facility] Comment on above: Order Comment: Speci men Type: BLOOD SPECIMENOrdering Facility: [facility] Address: [address] [place] [address] Performed By: #### 5 7021-8 ####HERRER[facility] LABORATORYCLIA [id number] [place] [address] [place] Neutrophils/100 WBC (Bld) 42.5 % Normal [facility] Comment on above: Order Comment: Speci men Type: BLOOD SPECIMENOrdering Facility: [facility] Address: [address] [place] [address] Performed By: #### 5 7021-8 ####HERRERA LABORATORYCLIA [id number] [place] [address] [place] Nucleated RBC (Bld) [#/Vol] 10*3/uL Normal <0.01 [facility] Comment on above: Order Comment: Speci men Type: BLOOD SPECIMENOrdering Facility: [facility] Address: [address] [place] [address] Performed By: #### 5 7021-8 ####HERRER[facility] LABORATORYCLIA [id number] [address] [place] Nucleated RBC/100 WBC (Bld) [Ratio] 0.0 /100 WBC Normal [facility] Comment on above: Order Comment: Speci men Type: BLOOD SPECIMENOrdering Facility: [facility] Address: [address] [place] [address] Performed By: #### 5 7021-8 ####HERRERA LABORATORYCLIA [id number] [place] [address] [place] Platelet mean volume (Bld) [Entitic vol] 8.8 fL Low 9.0-12.7 [facility] Comment on above: Order Comment: Speci men Type: BLOOD SPECIMENOrdering Facility: [facility] Address: [address] [place] [address], [place] [address] Performed By: #### 5 7021-8 ####HERRERA LABORATORYCLIA [id number] [address] [place] Platelets (Bld) [#/Vol] 253 10*3/uL Normal 150-400 [facility] Comment on above: Order Comment: Speci men Type: BLOOD SPECIMENOrdering Facility: [facility] Address: [address] [place] [address] Performed By: #### 5 7021-8 ####HERRERA LABORATORYCLIA [id number] [address] [place] RBC (Bld) [#/Vol] 2.77 10*6/uL Low 4.20-6.00 [facility] Comment on above: Order Comment: Speci men Type: BLOOD SPECIMENOrdering Facility: [facility] Address: [address] [place] [address] Performed By: #### 5 7021-8 ####HRERERA LABORATORYCLIA [id number] [address] WBC (Bld) [#/Vol] 4.82 10*3/uL Normal 3.70-11.00 [facility] Comment on above: Order Comment: Speci men Type: BLOOD SPECIMENOrdering Facility: [facility] Address: [address] [place] [address] Performed By: #### 5 7021-8 ####HERRERA LABORATORYCLIA [id number] [address] [place] CK SerPl-cCncon 01-24-2025 CK [Catalytic activity/Vol] 17 U/L Low 51-298 [facility] Comment on above: Order Comment: Speci men Type: BLOOD SPECIMENOrdering Facility: [facility] Address: [address] [place] [address] Performed By: #### L [id number], 3040-3, BHB, 2157-6, 45233-6 ####HERRERA LABORATORYCLIA [id number] [address] [place] MAE DIRECTon 01-24-2025 DAGT, ANTI-C3B,C3D Positive Normal [facility] Comment on above: Order Comment: Speci men Type: BLOOD SPECIMENOrdering Facility: [facility] Address: [facility] [place] [address] Performed By: #### % MARYANN, [id number], TSCR, DAGT ####[facility] BLOOD BANKCLIA [id number] [place], [place] [address] [place] [address] [place] DAGT, ANTI-IGG Positive Normal [facility] Comment on above: Order Comment: Speci men Type: BLOOD SPECIMENOrdering Facility: [facility] Address: [address] [place] [address] Performed By: #### % MARYANN, [id number], TSCR, DAGT ####[facility] BLOOD BANKCLIA [id number] [place], [place] [address] [place] [address] [place] DAGT, POLYSPECIFIC AHG Positive Normal [facility] Comment on above: Order Comment: Speci men Type: BLOOD SPECIMENOrdering Facility: [facility] Address: [facility] [place] [address] Performed By: #### % MARYANN, [id number], TSCR, DAGT ####[facility] BLOOD BANKCLIA [id number] [address] [place] CRP SerPl-mCncon 01-24-2025 CRP [Mass/Vol] 4.8 mg/dL High <0.9 [facility] Comment on above: Order Comment: Speci men Type: BLOOD SPECIMENOrdering Facility: [facility] Address: [facility] [place] [address] Performed By: #### 2 4325-3, 1987-10 ####HERRERA LABORATORYCLIA [id number] [place], [place] [address] [place] [address] [place] Comprehensive metabolic 2000 panelon 01-24-2025 Albumin [Mass/Vol] 2.8 g/dL Low 3.9-4.9 [facility] Comment on above: Order Comment: Speci men Type: BLOOD SPECIMENOrdering Facility: [facility] Address: [address] [place] [address] [place] [address] Performed By: #### L [id number], 3040-3, BHB, 2156-11, 59637-1 ####HERRERA LABORATORYCLIA [id number] [place] [address] [place] ALP [Catalytic activity/Vol] 84 U/L Normal 38-113 [facility] Comment on above: Order Comment: Speci men Type: BLOOD SPECIMENOrdering Facility: [facility] Address: [address] [place] [address] Performed By: #### L [id number], 3040-3, BHB, 2156-11, 48891-2 ####HERRERA LABORATORYCLIA [id number] [place] [address] [place] ALT [Catalytic activity/Vol] 14 U/L Normal 10-54 [facility] Comment on above: Order Comment: Speci men Type: BLOOD SPECIMENOrdering Facility: [facility] Address: [address] [place] [address] Performed By: #### L [id number], 3040-3, BHB, 2156-11, 70185-9 ####HERRERA LABORATORYCLIA [id number] [place] [address] [place] Anion gap [Moles/Vol] 9 mmol/L Normal 8-15 [facility] Comment on above: Order Comment: Speci men Type: BLOOD SPECIMENOrdering Facility: [facility] Address: [address] [place] [address] Performed By: #### L [id number], 3040-3, BHB, 2156-11, 28035-2 ####HERRERA LABORATORYCLIA [id number] [place] [id number] [place] AST [Catalytic activity/Vol] 20 U/L Normal 14-40 [facility] Comment on above: Order Comment: Speci men Type: BLOOD SPECIMENOrdering Facility: [facility] Address: [address] [place] [address] Performed By: #### L [id number], 3040-3, BHB, 2156-11, 94440-7 ####HERRERA LABORATORYCLIA [id number] [place] [address] [place] Bilirubin [Mass/Vol] 0.6 mg/dL Normal 0.2-1.3 [facility] Comment on above: Order Comment: Speci men Type: BLOOD SPECIMENOrdering Facility: [facility] Address: [address] [place] [address] Performed By: #### L [id number], 3040-3, BHB, 2156-11, ####HERRERA LABORATORYCLIA [id number] [place] [address] [place] Calcium [Mass/Vol] 8.3 mg/dL Low 8.5-10.2 [facility] Comment on above: Order Comment: Speci men Type: BLOOD SPECIMENOrdering Facility: [facility] Address: [address] [place] [address] Performed By: #### L [id number], 3040-3, BHB, 2156-11, ####[facility] LABORATORYCLIA [id number] [place] [address] [place] Chloride [Moles/Vol] 108 mmol/L High 98-107 [facility] Comment on above: Order Comment: Speci men Type: BLOOD SPECIMENOrdering Facility: [facility] Address: [address] [place] [address] Performed By: #### L [id number], 3040-3, BHB, 2156-11, ####HERRERA LABORATORYCLIA [id number] [place] [address] [place] CO2 [Moles/Vol] 23 mmol/L Normal 22-30 [facility] Comment on above: Order Comment: Speci men Type: BLOOD SPECIMENOrdering Facility: [facility] Address: [address] [place] [address] Performed By: #### L [id number], 3040-3, BHB, 2156-11, ####HERRERA LABORATORYCLIA [id number] [place] [address] [place] Creatinine [Mass/Vol] 1.22 mg/dL Normal 0.73-1.22 [facility] Comment on above: Order Comment: Speci men Type: BLOOD SPECIMENOrdering Facility: [facility] Address: [address] [place] [address] Performed By: #### L [id number], 3040-3, BHB, 2156-11, 29224-0 ####[facility] LABORATORYCLIA [id number] [address] [place] eGFRcr SerPlBld CKD-EPI 2020 62 mL/min/1.73m??? Normal >=60 [facility] Comment on above: Order Comment: Demarco harris Type: BLOOD SPECIMENOrdering Facility: [facility] Address: [address] [place] [address] Result Comment: Nancy mated Glomerular Filtration Rate (eGFR) is calculated using the 2020 CKD-EPI creatinine equation. This equation utilizes serum creatinine, sex, and age as parameters. The creatinine assay has traceable calibration to isotope dilution-mass spectrometry. Refer to KDIGO guidelines for clinical interpretation. In patients with unstable renal function, e.g. those with acute kidney injury, the eGFR may not accurately reflect actual GFR. Performed By: #### L [id number], 3040-3, B, 2156-11, 64585-6 ####[facility] LABORATORYCLIA [id number] [place] [address] [place] Glucose [Mass/Vol] 135 mg/dL High 74-99 [facility] Comment on above: Order Comment: Demarco harris Type: BLOOD SPECIMENOrdering Facility: [facility] Address: [address] [place] [address] Result Comment: The [place] Diabetes [employer] (ADA) provides guidance for cutoff values for fasting glucose and random glucose. The ADA defines fasting as no caloric intake for at least 8 hours. Fasting plasma glucose results between 100 to 125 mg/dL indicate increased risk for diabetes (prediabetes).Fasting plasma glucose results greater than or equal to 126 mg/dL meet the criteria for diagnosis of diabetes. In the absence of unequivocal hyperglycemia, results should be confirmed by repeat testing. In a patient with classic symptoms of hyperglycemia or hyperglycemic crisis, random plasma glucose results greater than or equal to 200 mg/dL meet the criteria for diagnosis of diabetes.Reference: Standards of Medical Care in Diabetes 2016, [place] [employer]. Diabetes Care. 2016.39(Suppl 1). Performed By: #### L [id number], 3040-3, BHB, 2156-11, 52579-0 ####[facility] LABORATORYCLIA [id number] [place] [address] [place] Potassium [Moles/Vol] 3.9 mmol/L Normal 3.7-5.1 [facility] Comment on above: Order Comment: Speci men Type: BLOOD SPECIMENOrdering Facility: [facility] Address: [address] [place] [address] Performed By: #### L [id number], 3040-3, BHB, 2156-11, 14011-5 ####HERRER[facility] LABORATORYCLIA [id number] [place] [address] [place] Protein [Mass/Vol] 5.5 g/dL Low 6.3-8.0 [facility] Comment on above: Order Comment: Speci men Type: BLOOD SPECIMENOrdering Facility: [facility] Address: [address] [place] [address] Performed By: #### L [id number], 3040-3, BHB, 2156-11, 20204-8 ####H[facility] LABORATORYCLIA [id number] [place] [address] [place] Sodium [Moles/Vol] 140 mmol/L Normal 136-144 [facility] Comment on above: Order Comment: Speci men Type: BLOOD SPECIMENOrdering Facility: [facility] Address: [address] [place] [address] Performed By: #### L [id number], 3040-3, BHB, 2156-11, 45873-8 ####HERRER[facility] LABORATORYCLIA [id number] [place] [address] [place] Urea nitrogen [Mass/Vol] 28 mg/dL High 9-24 [facility] Comment on above: Order Comment: Speci men Type: BLOOD SPECIMENOrdering Facility: [facility] Address: [address] [place] [address] Performed By: #### L [id number], 3040-3, BHB, 2156-11, 46680-0 ####HERRER[facility] LABORATORYCLIA [id number] [place] [address] [place] ED PROV NOTEon 01-24-2025 ED PROV NOTE Normal [facility] Folate SerPl-mCncon 01-25-20 25 Folate [Mass/Vol] ng/mL Normal >4.7 [facility] Comment on above: Order Comment: Demarco harris Type: BLOOD SPECIMENOrdering Facility: [facility] Address: [address] [place] [address] Result Comment: A re sult of > 20 ng/mL is not necessarily indicative of a pathologic or treatable condition: it reflects a limitation of the test methodology.Assay reference range: 4.8 to 24.2 ng/mL. Suitable for detection of folate deficiency.Reference:Folate III (Folate III) [package insert V 1.0 [place]]. [employer], [place], [place]: April 2015. Performed By: #### 2 532-0, 2132-9, 2284-8, 3034-6, 4542-7 ####[facility] LABCLIA [id number] [address] [place] Gas and Carbon monoxide pane l (BldV)on 01-24-2025 Base excess Calc (BldV) [Moles/Vol] 1 mmol/L Normal 0-2 [facility] Comment on above: Order Comment: Demarco harris Type: VENOUS BLOOD SPECIMENOrdering Facility: [facility] Address: [address] [place], [place] [address] Performed By: #### 2 4344-4 ####[facility] RESPIRATORYCLIA [id number] [facility] RESPIRAT[facility] [id number] [place] [address] Calcium.ionized (Bld) [Mass/Vol] 1.14 mmol/L Normal 1.08-1.30 [facility] Comment on above: Order Comment: Pemai men Type: VENOUS BLOOD SPECIMENOrdering Facility: [facility] Address: [address] [place] [address] Performed By: #### 2 4344-4 ####[facility] RESPIRATORYCLIA [id number] [facility]OSP[facility] RESPIRATORY [id number] [place] [address] Carboxyhemoglobin (BldV) [Mass fraction] 2.3 % High 0.0-2.0 [facility] Comment on above: Order Comment: Speci men Type: VENOUS BLOOD SPECIMENOrdering Facility: [facility] Address: [address] [place] [address] Result Comment: Carb oxyhemoglobin Reference Range for Smokers: 2.0-8.0% Performed By: #### 2 4344-4 ####[facility] RESPIRATORYCLIA [id number] [facility]OSP[facility] RES[facility]IRATORY [id number] [address] [address] CO2 (BldV) [Partial pressure] 36 mm[Hg] Low 42-55 [facility] Comment on above: Order Comment: Speci men Type: VENOUS BLOOD SPECIMENOrdering Facility: [facility] Address: [address] [place] [address] Performed By: #### 2 4344-4 ####[facility]ATORYPROCTOR [facility]OSP[facility] [id number] [facility] RESPIRATORY [id number] [address] CO2 adjusted to patient's actual temperature (BldV) [Partial pressure] Normal [facility] Comment on above: Order Comment: Speci men Type: VENOUS BLOOD SPECIMENOrdering Facility: [facility] Address: [address] [place] [address] Performed By: #### 2 4344-4 ####[facility] RESPIRATORYIA [id number] HOSPITAL RESPIRATORY [id number] [address] [address] HCO3 (Bld) [Moles/Vol] 25 mmol/L Normal 24-28 [facility] Comment on above: Order Comment: Speci men Type: VENOUS BLOOD SPECIMENOrdering Facility: [facility] Address: [address] [place] [address] Performed By: #### 2 4344-4 ####[facility]IRATORYPROCTOR [facility]OSPITAL [id number] [facility] RESPIRATORY [id number] [address] [address] Hemoglobin (Bld) [Mass/Vol] 7.8 g/dL Low 13.0-17.0 [facility] Comment on above: Order Comment: Speci men Type: VENOUS BLOOD SPECIMENOrdering Facility: [facility] Address: [address] [place] [address] Performed By: #### 2 4344-4 ####[facility] RESPIRATORYCLIA [id number] [facility] RESPIRATORY [id number] [address] [address] Lactate [Moles/Vol] 0.6 mmol/L Normal 0.5-2.2 [facility] Comment on above: Order Comment: Speci men Type: VENOUS BLOOD SPECIMENOrdering Facility: [facility] Address: [address] [place] [address] Performed By: #### 2 4344-4 ####[facility] RESPIRATORYCLIA [id number] [facility]OSP[facility] RESPIRATORY [id number] [address] [address] Methemoglobin (Bld) [Mass fraction] % Normal 0.0-1.5 [facility] Comment on above: Order Comment: Speci men Type: VENOUS BLOOD SPECIMENOrdering Facility: [facility] Address: [address] [place] [address] Performed By: #### 2 4344-4 ####[facility] RESPIRATORYIA [id number] [facility]OSP[facility] RESPIRATORY [id number] [address] O2 THERAPY RA=Room Air Normal [facility] Comment on above: Order Comment: Speci men Type: VENOUS BLOOD SPECIMENOrdering Facility: [facility] Address: [address] [place] [address] Performed By: #### 2 4344-4 ####[facility] RESPIRATORYIA [id number] [facility]OS[facility] RESPIRATORY [id number] [address] [address] Oxygen (BldV) [Partial pressure] 34 mm[Hg] Low 35-45 [facility] Comment on above: Order Comment: Speci men Type: VENOUS BLOOD SPECIMENOrdering Facility: [facility] Address: [address] [place] [address] Performed By: #### 2 4344-4 ####[facility]ORYPRO[facility] [id number] [facility] RESPIRATORY [id number] [address] [address] Oxygen adjusted to patient's actual temperature (BldV) [Partial pressure] Normal [facility] Comment on above: Order Comment: Speci men Type: VENOUS BLOOD SPECIMENOrdering Facility: [facility] Address: [address] [place] [address] Performed By: #### 2 4344-4 ####[facility] RESPIRATORYCLIA [id number] [facility] RESPIRATORY [id number] [address] [address] Oxygen saturation in Venous blood 64 % Normal 60-85 [facility] Comment on above: Order Comment: Speci men Type: VENOUS BLOOD SPECIMENOrdering Facility: [facility] Address: [address] [place] [address] Performed By: #### 2 4344-4 ####[facility] RESPIRATORYCLIA [id number] [id number] [address] [address] Oxyhemoglobin (BldV) [Mass fraction] 62 % Normal 60-85 [facility] Comment on above: Order Comment: Speci men Type: VENOUS BLOOD SPECIMENOrdering Facility: [facility] Address: [address] [place] [address] Performed By: #### 2 4344-4 ####[facility] RESPIRATORYCLIA [id number] [id number] [address] [address] pH (BldV) 7.45 [pH] High 7.32-7.42 [facility] Comment on above: Order Comment: Speci men Type: VENOUS BLOOD SPECIMENOrdering Facility: [facility] Address: [address] [place] [address] Performed By: #### 2 4344-4 ####[facility] RESPIRATORYCLIA [id number] [id number] [address] [address] pH adjusted to patient's actual temperature (BldV) Normal [facility] Comment on above: Order Comment: Speci men Type: VENOUS BLOOD SPECIMENOrdering Facility: [facility] Address: [address] [place] [address] Performed By: #### 2 4344-4 ####[facility] RESPIRATORYCLIA [id number] [facility]PIR[facility] [id number] [address] [address] Potassium [Moles/Vol] 3.5 mmol/L Normal 3.5-5.0 [facility] [facility] Comment on above: Order Comment: Speci men Type: VENOUS BLOOD SPECIMENOrdering Facility: [facility] Address: [address] [place] [address] Performed By: #### 2 4344-4 ####[facility] RESPIRATORYCLIA [id number] RESPIRAT[facility] [id number] [address] HIGH SENSITIVITY TROPONIN T (INITIAL)on 01-24-2025 Troponin T.cardiac High sensitivity method [Mass/Vol] 58 ng/L High <12 [facility] Comment on above: Order Comment: Speci men Type: BLOOD SPECIMENOrdering Facility: [facility] Address: [address] [place] [address] Performed By: #### L [id number], 3040-3, B, 2157-6, 04159-9 ####[facility] LABORATORYCLIA [id number] [address] HIGH SENSITIVITY TROPONIN T (SECOND)on 01-24-2025 Troponin T.cardiac High sensitivity method [Mass/Vol] 53 ng/L High <[address] [place] [address] Comment on above: Order Comment: Speci men Type: BLOOD SPECIMENOrdering Facility: [facility] Address: [address] [place] [address] Performed By: #### L [id number] ####[facility] LABORATORYCLIA [id number] [address] HIGH SENSITIVITY TROPONIN T (THIRD) 3 HRS AFTER INITIALon 01-24-2025 Troponin T.cardiac High sensitivity method [Mass/Vol] 46 ng/L High <12 [facility] Comment on above: Order Comment: Speci men Type: BLOOD SPECIMENOrdering Facility: [facility] Address: [address] [place] [address] Performed By: #### L [id number] ####[facility] LABORATORYCLIA [id number] [address] OF [facility] HISTORY PHYSICALon HISTORY PHYSICAL Normal [facility] Haptoglob SerPl-mCncon 01-24 Haptoglobin [Mass/Vol] 124 mg/dL Normal 31-238 [facility] Comment on above: Order Comment: Speci men Type: BLOOD SPECIMENOrdering Facility: [facility] Address: [address] [place] [address] Performed By: #### 2 532-0, 2132-9, 2284-8, 3034-6, 4542-7 ####[facility] LABCLIA [id number] [address] [place] Hepatic function 2000 panelo n 01-24-2025 Albumin [Mass/Vol] 2.4 g/dL Low 3.9-4.9 [facility] Comment on above: Order Comment: Speci men Type: BLOOD SPECIMENOrdering Facility: [facility] Address: [address] [place] [address] Performed By: #### 2 43210-11, 1987-10 ####[facility] LABORATORYCLIA [id number] [place] [address] [place] ALP [Catalytic activity/Vol] 79 U/L Normal 38-113 [facility] Comment on above: Order Comment: Speci men Type: BLOOD SPECIMENOrdering Facility: [facility] Address: [address] [place] [address] Performed By: #### 2 4325, 1987-10 ####[facility] LABORATORYCLIA [id number] [place] [address] [place] ALT [Catalytic activity/Vol] 16 U/L Normal 10-54 [facility] Comment on above: Order Comment: Speci men Type: BLOOD SPECIMENOrdering Facility: [facility] Address: [address] [place] [address] Performed By: #### 2 43210-11, 1987-10 ####[facility] LABORATORYCLIA [id number] [place] [address] [place] AST [Catalytic activity/Vol] 26 U/L Normal 14-40 [facility] Comment on above: Order Comment: Speci men Type: BLOOD SPECIMENOrdering Facility: [facility] Address: [address] [place] [address] Performed By: #### 2 4324-08, 1987-10 ####[facility] LABORATORYCLIA [id number] [address] Bilirubin [Mass/Vol] 0.5 mg/dL Normal 0.2-1.3 [facility] Comment on above: Order Comment: Speci men Type: BLOOD SPECIMENOrdering Facility: [facility] Address: [address] [place], [place] [address] [address] Performed By: #### 2 4324-08, 1987-10 ####[facility] LABORATORYCLIA [id number] [address] [place] Bilirubin.conjugated [Mass/Vol] 0.2 mg/dL Normal <0.3 [facility] Comment on above: Order Comment: Speci men Type: BLOOD SPECIMENOrdering Facility: [facility] Address: [address] [place] [address] Performed By: #### 2 4324-08, 1987-10 ####[facility] LABORATORYCLIA [id number] [address] [place] Protein [Mass/Vol] 4.9 g/dL Low 6.3-8.0 [facility] Comment on above: Order Comment: Speci men Type: BLOOD SPECIMENOrdering Facility: [facility] Address: [facility] [place] [address] Performed By: #### 2 4324-08, 1987-10 ####[facility] LABORATORYCLIA [id number] [place] [address] [place] LDH SerPl-cCncon 01-24-2025 LDH [Catalytic activity/Vol] 367 U/L High 135-225 [facility] Comment on above: Order Comment: Speci men Type: BLOOD SPECIMENOrdering Facility: [facility] Address: [facility] [place] [address] Performed By: #### 2 532-0, 2132-9, 2284-8, 3034-6, 4542-7 ####[facility] LABCLIA [id number] [address] [place] [address] [place] Lipase SerPl-cCncon 01-25-20 25 Lipase [Catalytic activity/Vol] 32 U/L Normal 16-61 [facility] Comment on above: Order Comment: Speci men Type: BLOOD SPECIMENOrdering Facility: [facility] Address: [address] [place] [address] Performed By: #### L [id number], 3040-3, BHB, 2157-6, 09452-0 ####[facility] LABORATORYCLIA [id number] [place] [address] [place] Magnesium SerPl-mCncon 01-24 Magnesium [Mass/Vol] 1.6 mg/dL Low 1.7-2.3 [facility] Comment on above: Order Comment: Speci men Type: BLOOD SPECIMENOrdering Facility: [facility] Address: [address] [place] [address] Performed By: #### 1 9123-9, 67376-8 ####[facility] LABORATORYCLIA [id number] [address] [place] NT-proBNP SerPl-mCncon 01-24 Natriuretic peptide.B prohormone N-Terminal [Mass/Vol] 1672 pg/mL High <450 [facility] Comment on above: Order Comment: Speci men Type: BLOOD SPECIMENOrdering Facility: [facility] Address: [address] [place] [address] Performed By: #### 1 9123-9, 51395-2 ####[facility] LABORATORYCLIA [id number] [place] [address] [place] TOXICOLOGY SCREEN, ROUTINE U RINEon 01-24-2025 Amphetamines Confirm (U) [Mass/Vol] Negative Normal Negative [facility] Comment on above: Order Comment: Speci men Type: URINE SPECIMENOrdering Facility: [facility] Address: [address] [place] [address] Result Comment: Cuto ff threshold at 1000 ng/mL. Performed By: #### U TOX2 ####[facility] LABORATORYCLIA [id number] [place] [address] BARBITURATES, URINE Negative Normal Negative [facility] Comment on above: Order Comment: Speci men Type: URINE SPECIMENOrdering Facility: [facility] Address: [address] [place] [address] Result Comment: Cuto ff threshold at 200 ng/mL. Performed By: #### U TOX2 ####[facility] LABORATORYCLIA [id number] [place] [address] [place] BENZODIAZEPINES, URINE Negative Normal Negative [facility] Comment on above: Order Comment: Speci men Type: URINE SPECIMENOrdering Facility: [facility] Address: [address] [place] [address] Result Comment: Cuto ff threshold at 200 ng/mL. Performed By: #### U TOX2 ####[facility] LABORATORYCLIA [id number] [address] Cannabinoids Screen Ql (U) Negative Normal Negative [facility] Comment on above: Order Comment: Speci men Type: URINE SPECIMENOrdering Facility: [facility] Address: [address] [place] [address] Result Comment: Cuto ff threshold at 50 ng/mL. Performed By: #### U TOX2 ####[facility] LABORATORYCLIA [id number] [address] STATES [facility] Cocaine Ql (U) Negative Normal Negative [facility] Comment on above: Order Comment: Speci men Type: URINE SPECIMENOrdering Facility: [facility] Address: [address] [place] [address] Result Comment: Cuto ff threshold at 300 ng/mL. Performed By: #### U TOX2 ####[facility] LABORATORYCLIA [id number] [place] [address] [place] Ethanol (U) [Mass/Vol] <11 Normal <11 [facility] Comment on above: Order Comment: Speci men Type: URINE SPECIMENOrdering Facility: [facility] Address: [address] [place] [address] Performed By: #### U TOX2 ####[facility] LABORATORYCLIA [id number] [place] [address] [place] fentaNYL Screen Ql (U) Negative Normal Negative [facility] Comment on above: Order Comment: Speci men Type: URINE SPECIMENOrdering Facility: [facility] Address: [address] [place] [address] Result Comment: Cuto ff threshold at 5 ng/mL. Performed By: #### U TOX2 ####[facility] LABORATORYCLIA [id number] [place] [address] [place] Opiates Screen Ql (U) Negative Normal Negative [facility] Comment on above: Order Comment: Speci men Type: URINE SPECIMENOrdering Facility: [facility] Address: [address] [place] [address] Result Comment: Cuto ff threshold at 300 ng/mL. Performed By: #### U TOX2 ####[facility] LABORATORYCLIA [id number] [address] oxyCODONE cutoff Screen (U) [Mass/Vol] Negative Normal Negative [facility] Comment on above: Order Comment: Speci men Type: URINE SPECIMENOrdering Facility: [facility] Address: [address] [place] [address] Result Comment: Cuto ff threshold at 100 ng/mL. Performed By: #### U TOX2 ####[facility] LABORATORYCLIA [id number] [address] Phencyclidine Ql (U) Negative Normal Negative [facility] Comment on above: Order Comment: Speci men Type: URINE SPECIMENOrdering Facility: [facility] Address: [address] [place] [address] Result Comment: Cuto ff threshold at 25 ng/mL. Performed By: #### U TOX2 ####[facility] LABORATORYCLIA [id number] [address] [place] TYPE + SCREENon 01-24-2025 ABO A Normal [facility] Comment on above: Order Comment: Speci men Type: BLOOD SPECIMENOrdering Facility: [facility] Address: [address] [place] [address] Result Comment: Danielle ected result: Previously reported as Invalid on 01/24/2025 at 1:31 PM EDT. Performed By: #### % MARYANN, [id number], TSCR, DAGT ####[facility] BLOOD BANKCLIA [id number] [address] Rh Nom (Bld) Positive Normal [facility] Comment on above: Order Comment: Speci men Type: BLOOD SPECIMENOrdering Facility: [facility] Address: [address] [place] [address] Performed By: #### % MARYANN, [id number], TSCR, DAGT ####[facility] BLOOD BANKCLIA [id number] [address] TYPE AND SCREEN EXPIRATION 01/27/2025 23:59 Normal [facility] Comment on above: Order Comment: Speci men Type: BLOOD SPECIMENOrdering Facility: [facility] Address: [address] [place] [address] Performed By: #### % MARYANN, [id number], TSCR, DAGT ####[facility] [place] BLOOD BANKCLIA [id number] [address] [place] Transferrin SerPl-mCncon Transferrin [Mass/Vol] 119 mg/dL Low 200-360 [facility] Comment on above: Order Comment: Speci men Type: BLOOD SPECIMENOrdering Facility: [facility] Address: [address] [place] [address] Performed By: #### 2 532-0, 2132-9, 2284-8, 3034-6, 4542-7 ####[facility] LABCLIA [id number] [address] [place] Urinalysis complete panel (U )on 01-24-2025 Bilirubin Ql (U) Negative Normal Negative [facility] Comment on above: Order Comment: Speci men Type: URINE SPECIMENOrdering Facility: [facility] Address: [address] [place] [address] Performed By: #### 2 4356-8 ####[facility] LABORATORYCLIA [id number] [address] [place] Clarity (Unsp spec) Clear Normal Clear [facility] Comment on above: Order Comment: Speci men Type: URINE SPECIMENOrdering Facility: [facility] Address: [address] [place] [address] Performed By: #### 2 4356-8 ####[facility] LABORATORYCLIA [id number] [place] [address] [place] Color (U) Yellow Normal Yellow [facility] Comment on above: Order Comment: Speci men Type: URINE SPECIMENOrdering Facility: [facility] Address: [address] [place] [address] Performed By: #### 2 4356-8 ####[facility] LABORATORYCLIA [id number] [place] [address] [place] Epithelial cells LM.HPF (Urine sed) [#/Area] Few Normal [facility] Comment on above: Order Comment: Speci men Type: URINE SPECIMENOrdering Facility: [facility] Address: [address] [place] [address] Performed By: #### 2 4356-8 ####[facility] LABORATORYCLIA [id number] [place] [address] [place] Glucose Test strip (U) [Mass/Vol] Negative Normal Negative [facility] Comment on above: Order Comment: Speci men Type: URINE SPECIMENOrdering Facility: [facility] Address: [address] [place] [address] Performed By: #### 2 4356-8 ####[facility] LABORATORYCLIA [id number] [place] [address] [place] Hemoglobin Ql (U) Negative Normal Negative [facility] Comment on above: Order Comment: Speci men Type: URINE SPECIMENOrdering Facility: [facility] Address: [address] [place] [address] Performed By: #### 2 4356-8 ####[facility] LABORATORYCLIA [id number] [place] [id number] [facility] [place] Ketones Ql (U) Negative Normal Negative [facility] Comment on above: Order Comment: Speci men Type: URINE SPECIMENOrdering Facility: [facility] Address: [address] [place] [address] Performed By: #### 2 4356-8 ####[facility] LABORATORYCLIA [id number] [address] Leukocyte esterase Test strip Ql (U) Negative Normal Negative [facility] Comment on above: Order Comment: Speci men Type: URINE SPECIMENOrdering Facility: [facility] Address: [address] [place] [address] Performed By: #### 2 4356-8 ####[facility] LABORATORYCLIA [id number] [address] STATES [facility] Nitrite Ql (U) Negative Normal Negative [facility] Comment on above: Order Comment: Speci men Type: URINE SPECIMENOrdering Facility: [facility] Address: [address] [place] [address] Performed By: #### 2 4356-8 ####[facility] LABORATORYCLIA [id number] [address] [place] pH (U) 6.0 [pH] Normal 5.0-8.0 [facility] Comment on above: Order Comment: Speci men Type: URINE SPECIMENOrdering Facility: [facility] Address: [address] [place] [address] Performed By: #### 2 4356-8 ####[facility] LABORATORYCLIA [id number] [address] [place] Protein (U) [Mass/Vol] 1+ Abnormal Negative [facility] Comment on above: Order Comment: Speci men Type: URINE SPECIMENOrdering Facility: [facility] Address: [address] [place] [address] Performed By: #### 2 4356-8 ####[facility] LABORATORYCLIA [id number] [place] [address] [place] RBC LM.HPF (Urine sed) [#/Area] 0-3 /HPF Normal 0-3 /HPF [facility] Comment on above: Order Comment: Speci men Type: URINE SPECIMENOrdering Facility: [facility] Address: [address] [place] [address] Performed By: #### 2 4356-8 ####[facility] LABORATORYCLIA [id number] [place] [address] [place] Specific gravity (U) [Rel density] 1.020 Normal 1.005-1.03 0 [facility] Comment on above: Order Comment: Speci men Type: URINE SPECIMENOrdering Facility: [facility] Address: [address] [place] [address] Performed By: #### 2 4356-8 ####[facility] LABORATORYCLIA [id number] [place] [address] [place] Urobilinogen Ql (U) 1.0 EU/dL Normal 0.2-1.0 EU/dL [facility] Comment on above: Order Comment: Speci men Type: URINE SPECIMENOrdering Facility: [facility] Address: [address] [place] [address] Performed By: #### 2 4356-8 ####[facility] LABORATORYCLIA [id number] [place] [address] [place] WBC LM.HPF (Urine sed) [#/Area] 0-5 /HPF Normal 0-5 /HPF [facility] Comment on above: Order Comment: Speci men Type: URINE SPECIMENOrdering Facility: [facility] Address: [address] [place] [address] Performed By: #### 2 4356-8 ####[facility] LABORATORYCLIA [id number] [address] [place] Vit B12 SerPl-[facility] 025 Cobalamin (Vitamin B12) [Mass/Vol] 1291 pg/mL High 232-1245 [facility] Comment on above: Order Comment: Speci men Type: BLOOD SPECIMENOrdering Facility: [facility] Address: [address] [place] [address] Performed By: #### 2 532-0, 2132-9, 2284-8, 3034-6, 4542-7 ####[facility] LABCLIA [id number] [place] [address] [place] XR CHEST 1V FRONTAL PORTon 0 01-24-2025 XR CHEST 1V FRONTAL PORT Normal [facility] GLUCOSE, BLOOD (POC)on 01-22 Glucose [Mass/Vol] 230 mg/dL Abnormal 74 - 99 mg/dL [facility] Comment on above: Location:[facility] jennie, [address] [place] [address], [facility] The Accu-Chek Inform II glucose meter has not been approved for testing on patients receiving intensive medical intervention or therapy and results from this point of care glucose test should not be used for patient management decisions in these cases. Inaccurate results may also occur from other interfering factors, such as N-acetylcysteine (blood concentrations of greater than 5mg/dL), galactose, extremes of hematocrit (<10 or >65), or high doses of ascorbic acid (vitamin C) greater than 3mg/dL. Consider alternate testing mechanisms (e.g. core lab, blood gas instrument) in the above situations. Interpretation and review of laboratory results Abnormal [facility] NM PET/CT SKULL-THIGH INITon 01-22-2025 NM PET/CT SKULL-THIGH INIT Normal [facility] PET+CT Guidance for localiza tion of tumor of Skull base to mid-thigh-- W [id number]-FDG Jan 01-22-2025 IMPRESSION: HELENE DISEASE: * Mildly metabolically active nodes above and below the diaphragm. Greatest uptake is noted within left supraclavicular adenopathy (SUV max 3.8). EXTRANODAL DISEASE: * Previously described infiltrative appearance of the inferior aspect of the left parotid gland is mildly metabolically active, may represent lymphomatous involvement. * Splenomegaly without splenic hypermetabolism. * No metabolically active marrow infiltration. ADDITIONAL FINDINGS: * Large volume stool within the rectum. Deauville Score: 3-4 * Score 1: No uptake above the background * Score 2: Uptake equal to or below mediastinum * Score 3: Uptake above mediastinum but equal to or below liver * Score 4: Uptake slightly to moderately above liver * Score 5: Uptake markedly above liver or a new site of disease * Score X: New area(s) of uptake unlikely to be related to lymphoma Research Dietitian: MICHELE Transcribe Date/Time: Jan 22 2025 1:00P Dictated by : SON SHERIDAN MD This examination was interpreted and the report reviewed and electronically signed by: SON SHERIDAN MD on Jan 22 2025 1:26PM EST DIVISION OF RADIOLOGY * * *Final Report* * * DATE OF EXAM: Jan 22 2025 12:26PM [facility] 0060 - NM PET/CT SKULL-THIGH INIT / PROCEDURE REASON: multiple diagnoses * * * * Physician Interpretation * * * * EXAMINATION: BODY FDG PET-CT CLINICAL HISTORY: Mantle cell lymphoma. Lymphadenopathy, cervical . EXAM CATEGORY: Initial treatment strategy. TECHNIQUE: Radiopharmaceutical was administered intravenously followed by PET imaging from the eyes to thighs. Free breathing, low dose CT of the same body region was acquired without IV contrast for attenuation correction and anatomic localization. Unenhanced imaging is limited for the evaluation of some pathology and the acquired CT was not designed to produce diagnostic CT scan quality. Physiologic/non-pathologic uptake in some body regions could confound or obscure some pathology. * CT Radiation Dose: Integrated CT Dose-Length Product (DLP) for this visit = 303 mGy*cm * CT Dose Reduction Employed: Yes * Blood glucose: 230 mg/dL * Injection site: Right Forearm-Antecubital * Injected activity: 10.2 mCi * Uptake Time: 55 minutes * Radiopharmaceutical: K04-Lwutanbkqvsijorsyk (FDG) COMPARISON: No previous FDG PET/CT available CORRELATION: CT chest & abdomen/pelvis 01/12/2025, CT neck 12/27/2024 RESULT: REFERENCES: All reported standardized uptake values represent maximum SUV (SUVmax) per body weight, unless otherwise specified. SUV reference values, as follows: * Blood Pool (Descending Aorta): SUVmax 1.9 * Background Liver: SUVmax 2.9; SUVmean 2.1 Localizer Images: No additional findings. LYMPH NODES: Supradiaphragmatic Nodes: Tracer avid bilateral cervical nodes, left greater than right. For example, left supraclavicular helene conglomerate measures SUV max 3.8, 3.0 x 2.5 cm (4:33), conglomerate left level 2B adenopathy measures SUV max 3.4, 1.9 x 1.2 cm (4:17), left level 2A node measures SUV max 3.7, 1 cm (4:22) and a right level 2B node measures SUV max 3.5, 0.7 cm (4:33). There are few scattered mildly tracer avid thoracic nodes. For example, greatest uptake is noted within a right paratracheal node measuring SUV max 2.4, 1.2 x 1.1 cm (4:66). A subcarinal node measures SUV max 2.3, 1.2 cm (4:80). Mildly avid bilateral subcentimeter axillary nodes measure SUV max 2.3 on the left and SUV max 1.7 on the right. Infradiaphragmatic Nodes: Mildly tracer avid retroperitoneal adenopathy. For example, conglomerate aortocaval adenopathy measures SUV max 3.2, approximately 3.7 x 2.1 cm (4:154). HEAD AND NECK: Head: No radiotracer avid lesion or mass effect in the imaged intracranial compartment. Aerodigestive Tract: No radiotracer avid lesion. Neck Soft Tissues: Previously described infiltrative appearance of the inferior aspect of the left parotid gland is mildly metabolically active, measuring SUV max 3.0. CHEST: Lungs & Pleura: No radiotracer avid mass, nodule, or consolidation. No pleural effusion. Cardiovascular: Blood pool activity. Small pericardial effusion, similar to prior. Normal heart size. Thoracic aortic and coronary artery calcifications. Chest Wall: No radiotracer avid soft tissue lesion. ABDOMEN AND PELVIS: Hepatobiliary: No radiotracer avid lesion. No measurable mass. Spleen: No radiotracer avid lesion. Uptake throughout the spleen is within normal limits, similar to hepatic parenchymal activity. Redemonstrated splenomegaly, measuring 19.5 cm craniocaudal. Pancreas: No radiotracer avid lesion. Adrenals: No radiotracer avid nodule. Urinary Tract: Physiologic radiotracer excretion in the renal collecting systems and urinary bladder. Bilateral nonobstructing nephrolithiasis. GI Tract: No radiotracer avid lesion. Large volume stool within the rectum. No bowel dilation. Peritoneum: No radiotracer avid lesion. No ascites. Vasculature: Blood pool activity. Vascular calcifications without an abdominal aortic aneurysm. Pelvic Organs: No radiotracer avid lesion. MUSCULOSKELETAL: Bones: No radiotracer avid lesion. Degenerative changes. Soft Tissues: No radiotracer avid lesion. DIVISION OF RADIOLOGY [facility] * * *Final Report* * * DATE OF EXAM: Jan 22 2025 12:26PM [facility] 0060 - NM PET/CT SKULL-THIGH INIT / PROCEDURE REASON: multiple diagnoses * * * * Physician Interpretation * * * * EXAMINATION: BODY FDG PET-CT CLINICAL HISTORY: Mantle cell lymphoma. Lymphadenopathy, cervical . EXAM CATEGORY: Initial treatment strategy. TECHNIQUE: Radiopharmaceutical was administered intravenously followed by PET imaging from the eyes to thighs. Free breathing, low dose CT of the same body region was acquired without IV contrast for attenuation correction and anatomic localization. Unenhanced imaging is limited for the evaluation of some pathology and the acquired CT was not designed to produce diagnostic CT scan quality. Physiologic/non-pathologic uptake in some body regions could confound or obscure some pathology. * CT Radiation Dose: Integrated CT Dose-Length Product (DLP) for this visit = 303 mGy*cm * CT Dose Reduction Employed: Yes * Blood glucose: 230 mg/dL * Injection site: Right Forearm-Antecubital * Injected activity: 10.2 mCi * Uptake Time: 55 minutes * Radiopharmaceutical: D78-Geghtfmqhqjqsmkyxj (FDG) COMPARISON: No previous FDG PET/CT available CORRELATION: CT chest & abdomen/pelvis 01/12/2025, CT neck 12/27/2024 RESULT: REFERENCES: All reported standardized uptake values represent maximum SUV (SUVmax) per body weight, unless otherwise specified. SUV reference values, as follows: * Blood Pool (Descending Aorta): SUVmax 1.9 * Background Liver: SUVmax 2.9; SUVmean 2.1 Localizer Images: No additional findings. LYMPH NODES: Supradiaphragmatic Nodes: Tracer avid bilateral cervical nodes, left greater than right. For example, left supraclavicular helene conglomerate measures SUV max 3.8, 3.0 x 2.5 cm (4:33), conglomerate left level 2B adenopathy measures SUV max 3.4, 1.9 x 1.2 cm (4:17), left level 2A node measures SUV max 3.7, 1 cm (4:22) and a right level 2B node measures SUV max 3.5, 0.7 cm (4:33). There are few scattered mildly tracer avid thoracic nodes. For example, greatest uptake is noted within a right paratracheal node measuring SUV max 2.4, 1.2 x 1.1 cm (4:66). A subcarinal node measures SUV max 2.3, 1.2 cm (4:80). Mildly avid bilateral subcentimeter axillary nodes measure SUV max 2.3 on the left and SUV max 1.7 on the right. Infradiaphragmatic Nodes: Mildly tracer avid retroperitoneal adenopathy. For example, conglomerate aortocaval adenopathy measures SUV max 3.2, approximately 3.7 x 2.1 cm (4:154). HEAD AND NECK: Head: No radiotracer avid lesion or mass effect in the imaged intracranial compartment. Aerodigestive Tract: No radiotracer avid lesion. Neck Soft Tissues: Previously described infiltrative appearance of the inferior aspect of the left parotid gland is mildly metabolically active, measuring SUV max 3.0. CHEST: Lungs & Pleura: No radiotracer avid mass, nodule, or consolidation. No pleural effusion. Cardiovascular: Blood pool activity. Small pericardial effusion, similar to prior. Normal heart size. Thoracic aortic and coronary artery calcifications. Chest Wall: No radiotracer avid soft tissue lesion. ABDOMEN AND PELVIS: Hepatobiliary: No radiotracer avid lesion. No measurable mass. Spleen: No radiotracer avid lesion. Uptake throughout the spleen is within normal limits, similar to hepatic parenchymal activity. Redemonstrated splenomegaly, measuring 19.5 cm craniocaudal. Pancreas: No radiotracer avid lesion. Adrenals: No radiotracer avid nodule. Urinary Tract: Physiologic radiotracer excretion in the renal collecting systems and urinary bladder. Bilateral nonobstructing nephrolithiasis. GI Tract: No radiotracer avid lesion. Large volume stool within the rectum. No bowel dilation. Peritoneum: No radiotracer avid lesion. No ascites. Vasculature: Blood pool activity. Vascular calcifications without an abdominal aortic aneurysm. Pelvic Organs: No radiotracer avid lesion. MUSCULOSKELETAL: Bones: No radiotracer avid lesion. Degenerative changes. Soft Tissues: No radiotracer avid lesion. IMPRESSION IMPRESSION: HELENE DISEASE: * Mildly metabolically active nodes above and below the diaphragm. Greatest uptake is noted within left supraclavicular adenopathy (SUV max 3.8). EXTRANODAL DISEASE: * Previously described infiltrative appearance of the inferior aspect of the left parotid gland is mildly metabolically active, may represent lymphomatous involvement. * Splenomegaly without splenic hypermetabolism. * No metabolically active marrow infiltration. ADDITIONAL FINDINGS: * Large volume stool within the rectum. Deauville Score: 3-4 * Score 1: No uptake above the background * Score 2: Uptake equal to or below mediastinum * Score 3: Uptake above media (more content not included)... [facility] Radiology Study observation (narrative) [facility] Guidance for localiza tion of tumor of Skull base to mid-thigh-- W 18F-FDG IVOrdered By: Ccf Provider on 01-22-2025 [facility] CNPNon 01-20-2025 CNPN Normal [facility] ALLIED HEALTHon 01-19-2025 [facility] B-CELL LYMPHOMA, NGSon 01-19 ADDITIONAL INFORMATION (NGSBCL) DNR [facility] Comment on above: Order Comment: Speci men Type: TISSUE SPECIMENOrdering Facility: [facility] Address: [address] [place] [address] Result Comment: B-ce ll Lymphoma, NGS, V was cancelled on 02/06/2025 at10:36; Testing has been cancelled due to insufficient DNAconcentration. Performed By: #### N GSBCL ####[facility] [id number] [place] [address] ADDITIONAL INFORMATION (NGSBCL) None. [facility] Comment on above: Order Comment: Speci men Type: TISSUE SPECIMENOrdering Facility: [facility] Address: [address] [place] [address] Performed By: #### N GSBCL ####[facility] [id number] [place] [address] CLINICAL TRIALS (NGSBCL) DNR [facility] Comment on above: Order Comment: Speci men Type: TISSUE SPECIMENOrdering Facility: [facility] Address: [address] [place] [address] Result Comment: B-ce ll Lymphoma, NGS, V was cancelled on 02/06/2025 at10:36; Testing has been cancelled due to insufficient DNAconcentration. Performed By: #### N GSBCL ####[facility] [id number] [place] [address] CLINICAL TRIALS (NGSBCL) SEE NOTE [facility] Comment on above: Order Comment: Demarco harris Type: TISSUE SPECIMENOrdering Facility: [facility] Address: [address] [place] [address] Result Comment: Info rmation regarding possible clinical trials for thispatient can be found at the following sites:1 ). ClinicalTrials.gov:http://clinicaltrials.gov/ct2/search/advanc ed2). [facility]:http://www.[facility]/research/clinical-trials3). National Cancer [place]:http://www.cancer.gov/clinicaltrials/search4). The Leukemia and Lymphoma Society's Clinical TrialSupport Center:https://www.hematology.org/education/clinicians/clinica w-ilnzr-hyvslvj-center Performed By: #### N GSBCL ####[facility]CLIA [id number] [place] [address] DISCLAIMER (NGSBCL) DNR [facility] Comment on above: Order Comment: Demarco harris Type: TISSUE SPECIMENOrdering Facility: [facility] Address: [address] [place] [address] Result Comment: B-ce ll Lymphoma, NGS, V was cancelled on 02/06/2025 at10:36; Testing has been cancelled due to insufficient DNAconcentration. Performed By: #### N GSBCL ####[facility] [id number] [place] [address] DISCLAIMER (NGSBCL) SEE NOTE Normal [facility] Comment on above: Order Comment: Demarco harris Type: TISSUE SPECIMENOrdering Facility: [facility] Address: [address] [place] [address] Result Comment: CLIN ICAL DISCLAIMERMutation calls detected between 5-10% variant allelefractions (VAF) may indicate low-level (i.e. subclonal)tumor populations, although the clinical significance ofthese findings may not be clear. Some apparent mutationsclassified as VUS may represent rare or low frequencypolymorphisms. Prior treatment for hematologic malignancycould affect the results obtained in this assay. Inparticular, prior allogeneic hematopoietic stem celltransplant (HSCT) may cause difficulties in resolvingsomatic or polymorphic alterations, or in assigning variantcalls correctly to donor and recipient fractions, ifpertinent clinical or laboratory information (e.g.chimerism engraftment status) is not provided. Multipleadditional factors may also impact the observed VAFincluding copy number alterations of the genetic locus,chromosome ploidy changes or subclonal composition.Correlation with clinical, histopathologic and additionallaboratory findings is required for final interpretation ofthese results. This assay does not distinguish betweensomatic and germline alterations in analyzed gene regions,particularly with VAF near 50% or 100%. If nucleotidealterations in genes associated with germline mutationsyndromes are present and there is also a strong clinicalsuspicion or family history of malignant diseasepredisposition, additional genetic testing and appropriatecounseling may be indicated. This report interpretation isbased on current medical and scientific literature, butclinical significance may not be completely established forall reported target gene abnormalities identified. Thefinal interpretation of results for clinical management ofthe patient is the responsibility of the managingphysician. At this time, it is not standard practice forthe laboratory to systematically review likely pathogenicvariants or variants of uncertain significance that havebeen previously detected and reported. The laboratoryencourages health care providers to contact the laboratoryat any time to learn how the status of a particular variantmay have changed over time.TECHNICAL DISCLAIMERThe depth of sequencing coverage may be variable for sometarget regions, but assay performance below the minimumacceptable criteria, or for failed regions is noted.Analysis of rare (low allele frequency) polymorphisms maybe problematic in some cases. A low tumor cell percentagein the sample may affect the true mutation VAF and/orsensitivity. Suboptimal-performing regions (i.e. less thanthe expected minimum depth of coverage) may affect analyticsensitivity for detecting lower level mutations. In therare event of suboptimal measured DNA input quantity forlibrary preparation (e.g. due to limited tissue amount),detection sensitivity for subclonal variants near the assaylimit of detection may be decreased, despite the presenceof otherwise acceptable sequencing quality metrics. This jones qualitative test. The variant read fractions are providedfor information only and represent a relative proportion ofmutated alleles, but do not indicate a measure ofanalytical sensitivity for the given genes; assaysensitivity is as stated in the method summary. Somegenetic or genomic alterations, such as very largeinsertion/deletion events, copy number alterations (METAL RIVETING MACHINE OPERATOR)and gene translocation events are not detected by thisassay. Performed By: #### N GSBCL ####[facility] [id number] [place] [address] INDICATION FOR TEST (NGSBCL) DNR [facility] Comment on above: Order Comment: Speci men Type: TISSUE SPECIMENOrdering Facility: [facility] Address: [address] [place] [address] Performed By: #### N GSBCL ####[facility] LABCLIA [id number] [place] [address] INDICATION FOR TEST (NGSBCL) B-CELL Normal [facility] Comment on above: Order Comment: Speci men Type: TISSUE SPECIMENOrdering Facility: [facility] Address: [address] [place] [address] Performed By: #### N GSBCL ####[facility]CLIA [id number] [place] [address] INTERPRETATION (NGSBCL) DNR [facility] Comment on above: Order Comment: Speci men Type: TISSUE SPECIMENOrdering Facility: [facility] Address: [address] [place] [address] Result Comment: B-ce ll Lymphoma, NGS, V was cancelled on 02/06/2025 at10:36; Testing has been cancelled due to insufficient DNAconcentration. Performed By: #### N GSBCL ####[facility] [id number] [place] [address] INTERPRETATION (NGSBCL) SEE NOTE [facility] Comment on above: Order Comment: Speci men Type: TISSUE SPECIMENOrdering Facility: [facility] Address: [address] [place] [address] Result Comment: Thes e results are considered preliminary and requirecomplete integration with the concurrent pathology [id number] (Lymph node, left supraclavicular) for finalinterpretation. The result should NOT be interpreted inisolation for the purposes of diagnosis or clinicalmanagement.1. JOY: Chr11(GRCh37):g.[id number];NM_000051.3(JOY):c.217_ 218del; p.Vbe80Gkjvx*26Normal Gene/Protein Function: The JOY gene, located zu96z19.3, encodes the serine/threonine-protein kinase ataxiatelangiectasia mutated (JOY) which belongs to thephosphatidylinositol-3 kinase (PI3K) family. JOY is a coreregulator of the DNA damage response (DDR) pathway andmediates cell cycle arrest in response to DNA damage toenable repair of double-stranded DNA breaks and/orapoptosis through phosphorylation involving extensiveprotein networks (e.g., JOY/Chk2/p53 pathway) (Daniel etal., 2007, 11362675). Additional downstream effects includeheterochromatin DNA repair and chromatin remodeling,function in a spindle checkpoint, proteintranscription/translation, maintenance of cell homeostasis(insulin signaling and responses to hyperthermia, hypoxia,and hypotonic stress), and others (Leona et al., 2015,50265641).Mutation Effect: The c.217_218del (p.E73Mfs*26) frameshiftvariant results in premature protein truncation with lossof the several functional domains and is thereforepredicted to be inactivating (Fransisco et al., 2020, 26007638).In addition, this variant and has been reported as agermline variant in individuals diagnosed withataxia-telangiectasia (Li et al., 2000, 58395640; Gilmore etal., 2012, 08837234) and as a somatic variant in lymphoidneoplasms (https://cancer.diane.ac.uk/cosmic).Rjhq-dh-cmxnrgoj mutations, reduced kinase activity, and/orreduced expression of JYO have been associated with thedevelopment of cancer through inhibition of apoptosis andcell cycle arrest (Leona et al., 2015, 44689102).Therefore, this variant is considered pathogenic.Disease Association: Somatic JOY mutations are estimated in11-16% of chronic lymphocytic leukemia/small lymphocyticlymphoma (CLL/SLL) patients, 30-40% CLL/SLL with 11qdeletion, and uncommonly co-occur with a TP53 mutation(<5%) (Donis et al., 2005, 72752110; 2007, 39298718; Cret al., 2016, 85657107; Pau et al., 2013, 62523494).In earlier studies of CLL/SLL, JOY mutations showedassociation with reduced overall survival (OS) andtreatment-free survival independent of the IGHV mutationalstatus (Donis et al., 2005, 60251576). The combination ofATM mutation and del(11q) was associated with inferiorprogression-free survival (PFS) and OS following alkylatingagent and purine analog therapies (Skpatrick et al., 2012,33426604; Donis et al., 2007, 82093846). More recentstudies reported association with a shorter time to firsttreatment independent of IGHV mutational status and nosignificant OS impact (Nadeu et al., 2016, 47127261).CLL/SLL patients with JOY mutations showed a lower overallresponse rate (HYDE) with obinutuzumab+chlorambucil (GCIb)therapy and no difference in complete remission (CR) andORR with obinutuzumab+venetoclax (VenG) therapy or PFS forboth therapies (Tausch et al., 2020, 64359408). ATMmutations have also been described in 40-60% mantle celllymphoma and a subset of diffuse large B-cell lymphoma andT-prolymphocytic lymphoma, although their independentprognostic impact has not been established (Aniket et al.,2020, 51956962; Adrienne et al., 2020, 41235095; Padgett etal., 2022, 05391634; Danae et al., 2002, 57886837; Qinet al., 2021, 18130977; Elder et al., 2017 46771534;Mervatuy et al., 2020, 04266963).Therapeutic Implications: There are currently no clinicallyapproved therapies that target JOY mutations in cancerpatients. Cancers with JOY deficiency are increasinglysensitive to DNA damaging agents. The FDA has approved PARPinhibitor olaparib in solid tumors. As a radiosensitizingand/or chemosensitizing agent, PARP inhibitor has shownsynthetic lethality in JOY-deficient neoplastic B-cells inpreclinical studies (Fraser et al., 2014, 98280180;Daisy et al., 2010, 74508521; 2012, 50988209; Andrewst al., 2010, 34535555). Similar findings have beenreported for ART inhibitor (Heaven et al., 2015,37258445). Data from several prospective clinical trials ofcheckpoint inhibitors showed that DDR gene alterations(ibrq-hf-olfzzwas) including JOY mutations wereindependently associated with response to PD-1/PD-H9bquxuabl in metastatic urothelial carcinoma patients (Teoet al., 2018, 34732247). Additional information aboutavailable clinical trials can be found atClinicalTrials.gov.2. BIRC3: Chr11(GRCh37):g.623060954M>G;NM_001165.4(BIRC3):c.1322C>G; p.Nwi840*Normal Gene/Protein Function: The BIRC3 gene, located bj48w57.2, encodes the protein Baculoviral IAP RepeatContaining 3 (BIRC3, also known as cIAP2), a member of theinhibitors of apoptosis (IAP) protein family whichpossesses E3 ubiquitin ligase activity. It directlyinhibits apoptosis by ubiquitinating caspase 3 and caspase7 and targets them for degradation. It also regulatesmultiple other cellular processes, including inflammation,cell proliferation, migration, and metastasis, throughubiquitin-dependent signaling events such as the NF-kappa-B(NF-kB) pathway. It serves as a negative regulator of thenon-canonical NF-kB pathway under resting conditions andsuppresses its constitutive activation via TRAF3/TRAF2/BIRCcomplex-mediated degradation of NF-kB inducing kinase (ANITA,also known as [id number]). It acts as a positive regulator forthe canonical and non-canonical NF-kB pathways upon ligandengagement with the TNF receptor superfamily (Jeffry Met al., 2010, 29683215).Mutation Effect: The c.1322C>G (p.S441*) nonsense variantis predicted to result in loss/disruption of the ringdomain, which is the functional domain possessing the T8iyokochhn ligase activity. In vitro functional data of thisvariant demonstrated abrogated ability of the BIRC proteinto effectively ubiquitinate and target proteins forproteasomal degradation, including ANITA, conferringtransforming potential (Annette et al., 2014, 54053180).Consistently, constitutive activation of the psi-naodgaxgyDH-dG pathway was observed in primary tumor cells fromBICR3-mutated chronic lymphocytic leukemia (CLL) andsplenic marginal zone lymphoma (SMZL) patients (Ford etal., 2011, 39116261; 2012, 53808437). In addition, p.S441*has been reported as a somatic mutation in lymphoidneoplasms (https://cancer.diane.ac.uk/cosmic). Therefore,it is considered pathogenic.Disease Association: BICR3 mutations have been reported inapproximately 3-5% of chronic lymphocytic leukemia/smalllymphocytic lymphoma (CLL/SLL) patients and 24% offludarabine-resistant patients with an overall inconclusiveimpact on clinical outcomes (Ford et al., 2012, 21761341;Cr et al., 2016, 11792206). They are associated withchemo-refractoriness and/or inferior response tofludarabine, FCR (fludarabine, cyclophosphamide, andrituximab), BR (bendamustine, rituximab), and GCIb(obinutuzumab plus chlorambucil) therapies. However, thenegative impact was not observed with the noveltherapeutics of VenG (venetoclax, obinutuzumab) and VenR(venetoclax, rituximab) (Ford et al., 2012, 66046576; Dominqiuet al., 2020, 88867625; Tavo et al., 2020, 94419657;Tausch et al., 2020, 94337584). BIRC3 mutations have alsobeen described in approximately 5-6% of splenic marginalzone lymphoma and 5-10% of mantle cell lymphoma withoutclear documentation of impact on outcomes (Ford et al.,2011, 26628474; Annette et al., 2014, 23120151; Macario etal., 2016, 40328044; Aniket et al., 2020, 92277802).Therapeutic Implications: There is currently no clinicallyapproved therapy that targets BIRC3 mutations in cancerpatients. Smac-mimetics (SM) have been designed to bind andtrigger IAP protein auto-ubiquitinating and proteasomaldegradation. However, their anti-cancer role in the contextof quzy-uw-ewoyaplu BIRC3 mutations is uncertain. In vitrostudies have shown increased expression of BCL-2 proteinfamily members in cell lines and primary CLL cells withlow/absent BICR3 expression which demonstrated highersensitivity to venetoclax (Bhanu et al., 2018,08631551). Tumors harboring whzw-nt-saflbxvv BICR3 geneticchanges are associated with activated non-canonical NF-kBpathway through stabilization of ANITA. Preclinical studiessupport the anti-tumor potential of ANITA inhibitors andNF-kB downstream target inhibitors (Josafat et al., 2016,01135836; Robert et al., 2014, 10460214). Additionalinformation about available clinical trials can be found atClinicalTrials.gov. Performed By: #### N GSBCL ####[facility] [id number] [place] [address] METHOD SUMMARY (NGSBCL) DNR Normal [facility] Comment on above: Order Comment: Speci men Type: TISSUE SPECIMENOrdering Facility: [facility] Address: [address] [place] [address] Result Comment: B-ce ll Lymphoma, NGS, V was cancelled on 02/06/2025 at10:36; Testing has been cancelled due to insufficient DNAconcentration. Performed By: #### N GSBCL ####[facility]IA [id number] [place] [address] METHOD SUMMARY (NGSBCL) SEE NOTE [facility] Comment on above: Order Comment: Speci men Type: TISSUE SPECIMENOrdering Facility: [facility] Address: [address] [place] [address] Result Comment: DNA is extracted from validated specimen sources. Librarypreparation for Next Generation Sequencing (NGS) isperformed followed by probe hybridization and capture.Sequencing of the final sample library is performed on [employer] [place] instrument. Following bioinformatic processing of thesequencing data, the sequencing results are interpreted toprovide a final clinical report. Genomic alterations arecalled according to human genome reference build GRCh37(hg19).Performance characteristics of NGS panel:Single base substitutions: accuracy >99%; reproducibility>99% (intra- and interassay); sensitivity 5% variant allelefraction with a minimum depth of coverage of 500X.Insertion/deletion events (less than or equal to 1000 bpsin size): accuracy 100%; reproducibility >99% (intra- andinterassay); sensitivity 5% variant allele fraction with aminimum depth of coverage of 500X. Some genetic or genomicalterations such as very large insertion/deletion events,copy number alterations (METAL RIVETING MACHINE OPERATOR) and gene translocation eventsare not detected by this assay.This test was developed and its performance characteristicsdetermined by [facility] in a manner consistent with CLIArequirements. This test has not been cleared or approved bythe U.S. Food and Drug Administration. Performed By: #### N GSBCL ####[facility] [id number] [place] [address] NGSBCL RESULT TNP [facility] Comment on above: Order Comment: Speci men Type: TISSUE SPECIMENOrdering Facility: [facility] Address: [address] [place] [address] Result Comment: B-ce ll Lymphoma, NGS, V was cancelled on 02/06/2025 at10:36; Testing has been cancelled due to insufficient DNAconcentration.Test Performed by:[place], [place] [address]Lab Director: Quiana Melendrez Ph.D.; IA# [id number] Performed By: #### N GSBCL ####[facility] [id number] [place] [address] NGSBCL RESULT See Interpretation [facility] Comment on above: Order Comment: Speci men Type: TISSUE SPECIMENOrdering Facility: [facility] Address: [address] [place] [address] Performed By: #### N GSBCL ####[facility]CL[facility] [id number] [place] [address] PANEL GENE LIST (NGSBCL) DNR [facility] Comment on above: Order Comment: Speci men Type: TISSUE SPECIMENOrdering Facility: [facility] Address: [address] [place] [address] Result Comment: B-ce ll Lymphoma, NGS, V was cancelled on 02/06/2025 at10:36; Testing has been cancelled due to insufficient DNAconcentration. Performed By: #### N [facility] ####[facility]CLIA [id number] [place] [address] PANEL GENE LIST (NGSBCL) SEE NOTE Normal [facility] Comment on above: Order Comment: Speci men Type: TISSUE SPECIMENOrdering Facility: [facility] Address: [address] [place] [address] [place] [address] Result Comment: ARAF (NM_001654.4) Exons 7, 10-16, ARID1A (NM_006015.4)Exons 2-20, JOY (NM_000051.3) Exons 2-63, B2M (NM_004048.3)Exons 1-3, BCL2 (NM_000633.2) Exons 2-3, BIRC3(NM_001165.4) Exons 2-9, BRAF (NM_004333.4) Exons 11-18,BTG1 (NM_001731.2) Exons 1-2, BTK (NM_000061.2) Exons 2-19,CARD11 (NM_032415.5) Exons 2-25, CCND1 (NM_053056.2) Exons1-5, CCND3 (NM_001760.4) Exon 5, CD79A (NM_001783.3) Exons1-5, CD79B (NM_001039933.2) Exons 1-6, CDKN2A (NM_000077.4)Exons 1-3, CREBBP (NM_004380.2) Exons 1-31, CSF1R(NM_005211.3) Exons 8, 10, 12, 22, CXCR4 (NM_003467.2)Exons 1-2, DDX3X (NM_001356.4) Exons 1-17, EP300(NM_001429.3) Exons 1-31, EZH2 (NM_004456.4) Exons 2-20,FBXW7 (NM_001349798.2) Exons 4-14, FOXO1 (NM_002015.3)Exons 1-2, ID3 (NM_002167.4) Exons 1-2, KLF2 (NM_016270.3)Exons 1-3, KMT2D (NM_003482.3) Exons 1-54, KRAS(NM_033360.3) Exons 2-4, MAP2K1 (NM_002755.3) Exons 2-3, 6,MEF2B (NM_001145785.2) Exons 2-9, MYD88 (NM_002468.4) Exons1-5, NOTCH1 (NM_017617.3) Exons 26-27 34, NOTCH2(NM_024408.4) Exons 26-27, 34, NRAS (NM_002524.4) Exons2-4, NSD2 (NM_001042424.2) Exons 17-20, PIK3CA(NM_006218.2) Exons 2-11, 14-21, PIM1 (NM_001243186.1)Exons 1-6, PLCG2 (NM_002661.3) Exons 2-33, PRDM1(NM_001198.3) Exons 1-7, PTEN (NM_000314.4) Exons 1-8,SF3B1 (NM_012433.2) Exons 13-16, STAT6 (NM_003153.5) Exons2-22, TCF3 (NM_001136139.4) Exons 18-19, TNFAIP3(NM_006290.3) Exons 2-9, LJTHTT97 (NM_003820.3) Exons 1-8,TP53 (NM_000546.4) Exons 4-11, XPO1 (NM_003400.3) Kohhh67-06.For some genes, the transcript IDs used in the analysis maynot be the same as in other cancer mutation databases, suchas COSMIC http:/ /cancer.diane.ac.uk/cosmic Performed By: #### N GSBCL ####[facility] LABCLIA [id number] [place] [address] PATHOGENIC MUTATIONS DETECTED (NGSBCL) DNR [facility] Comment on above: Order Comment: Speci men Type: TISSUE SPECIMENOrdering Facility: [facility] Address: [address] [place] [address] Result Comment: B-ce ll Lymphoma, NGS, V was cancelled on 02/06/2025 at10:36; Testing has been cancelled due to insufficient DNAconcentration. Performed By: #### N GSBCL ####[facility] RE[facility] LABCLIA [id number] [place] [address] PATHOGENIC MUTATIONS DETECTED (NGSBCL) SEE NOTE Normal [facility] Comment on above: Order Comment: Speci men Type: TISSUE SPECIMENOrdering Facility: [facility] Address: [address] [place] [address] Result Comment: 1. A TM: Chr11(GRCh37):g.[id number];NM_000051.3(JOY):c.217_ 218del; p.Jzh06Rtjht*26 (81%)2. BIRC3: Chr11(GRCh37):g.[id number]>G;NM_001165.4(BIRC3):c.1322C>G; p.Dmu855* (77%)No other pathogenic mutations were detected in the othergenes tested on the panel. See below for Variants ofUnknown Significance and Additional Information. Pleasesee the section of Panel Gene List below for the completelist of genes tested. Performed By: #### N GSBCL ####[facility] LABCLIA [id number] [place] [address] REVIEWED BY (NGSBCL) DNR [facility] Comment on above: Order Comment: Speci men Type: TISSUE SPECIMENOrdering Facility: [facility] Address: [address] [place] [address] Result Comment: B-ce ll Lymphoma, NGS, V was cancelled on 02/06/2025 at10:36; Testing has been cancelled due to insufficient DNAconcentration. Performed By: #### N GSBCL ####[facility] LABCLIA [id number] [place] [address] REVIEWED BY (NGSBCL) SEE NOTE Normal [facility] Comment on above: Order Comment: Speci men Type: TISSUE SPECIMENOrdering Facility: [facility] Address: [address] [place] [address] Result Comment: RESU LT: Signing Pathologist: Jane Silverman M.D.Test Performed by:[facility] [place] [id number] Director: Quiana Melendrez Ph.D.; CLIA# [id number] Performed By: #### N GSBCL ####[facility] LABCLIA [id number] [place] [address] Specimen type Nom (Spec) DNR [facility] Comment on above: Order Comment: Speci men Type: TISSUE SPECIMENOrdering Facility: [facility] Address: [address] [place] [address] Performed By: #### N GSBCL ####[facility] RE[facility] LABCLIA [id number] [place] [address] Specimen type Nom (Spec) SEE NOTE [facility] Comment on above: Order Comment: Speci men Type: TISSUE SPECIMENOrdering Facility: [facility] Address: [address] [place] [address] Result Comment: RESU LT: Lymph node,left supraclavicular Performed By: #### N GSBCL ####[facility] LABCLIA [id number] [place] [address] VARIANTS OF UNKNOWN SIGNIFICANCE (NGSBCL) DNR [facility] Comment on above: Order Comment: Speci [facility] Type: TISSUE SPECIMENOrdering Facility: [facility] Address: [address] [place] [address] Result Comment: B-ce ll Lymphoma, NGS, V was cancelled on 02/06/2025 at10:36; Testing has been cancelled due to insufficient DNAconcentration. Performed By: #### N GSBCL ####[facility] RE[facility] LABCLIA [id number] [place] [address] VARIANTS OF UNKNOWN SIGNIFICANCE (NGSBCL) SEE NOTE [facility] Comment on above: Order Comment: Speci [facility] Type: TISSUE SPECIMENOrdering Facility: [facility] Address: [address] [place] [address] Result Comment: None .The VUS variants listed here (with approximate variantallele %) are not sufficiently characterized in the currentliterature and therefore are of uncertain or unknownclinical significance at this time. They are reported herefor future reference in the event they become clinicallysignificant in light of new scientific data. Performed By: #### N GSBCL ####[facility] REFERENCE LABCLIA [id number] [place] [address] FLOW CYTOMETRY FOR LEUKEMIA/ LYMPHOMA (FCLL) REFLEXon 01-19-2025 AMENDED REPORT DETAIL This report is noe ng amended to correct the list of markers employed in this study. There is no change to the final interpretation. Normal [facility] Comment on above: Order Comment: Speci men Type: TISSUE SPECIMENOrdering Facility: [facility] Address: [address] [place] [address] Result Comment: Edit ed results: Previously reported on 01/23/2025 at 11:35 AM EDT. Performed By: #### F CLLRFLX ####[facility] LABCLIA [id number] [address] DIAGNOSIS COMMENT Normal [facility] Comment on above: Order Comment: Speci [facility] Type: TISSUE SPECIMENOrdering Facility: [facility] Address: [address] [place] [address] Result Comment: This test was developed and its performance characteristics determined by [facility] Pathology and Laboratory Medicine [place] (-PLMI). It has not been cleared or approved by the FDA. -PLMS is regulated under CLIA as qualified to perform high-complexity testing. This test is used for clinical purposes. It should not be regarded as investigational or for research. Performed By: #### F CLLRFLX ####[facility] LABCLIA [id number] [address] [place] FLOW CYTOMETRY RESULTS Normal [facility] Comment on above: Order Comment: Speci men Type: TISSUE SPECIMENOrdering Facility: [facility] Address: [address] [place] [address] Result Comment: Spec imen type: lymph nodeMorphology comments: See report [id number].Viability: 100%Results: % total eventsLymphocyte gate: 91High FSC gate: 2Specimen type: Lymph nodeFlow Cytometry Lymphoma ImmunophenotypingMarker Normal Cell Type Result (Lymphocytes)CD5 T-cells ScvzepfoTG99 B-cell subset LuegynceFW40 B-cells OxbdpmjoFI84 B-cells BfntydohYQ96 B-cells subset JewxrzjuAT82 [place]-leukocyte Positive (bright)CD123 Dendritic Positive (dim)CD200 B-cells Negativekappa/lambda B-cells Monotypic LambdaFlow cytometric analysis of the lymph node was performed using CD45 and side scatter gating.The lymphocytes are composed of a mixture of T-cells (5%), and B-cells (95%). The B-cells display an abnormal immunophenotype, and are positive for CD5, CD19, CD20, CD45(bright), CD123(dim), and lambda light chains. The B-cells are negative for CD10 and the other markers listed above.Corrected results: Previously reported on 01/23/2025 at 11:35 AM EDT. Performed By: #### F CLLRFLX ####[facility] [id number] [address] OF [facility] INTERPRETATION [facility] Comment on above: Order Comment: Speci men Type: TISSUE SPECIMENOrdering Facility: [facility] Address: [address] [place] [address] Result Comment: The immunophenotypic findings demonstrate involvement by a CD5 positive B-cell lymphoma. The immunophenotype suggests mantle cell lymphoma. Correlation with the clinical and histopathologic findings is suggested.GUANACO January 225Amendment electronically signed by Tere Walls MD, PhD on 01/29/2025 at 0913 EDT at 1708 EDT Performed By: #### F CLLRFLX ####[facility] [id number] [address] Pathology biopsy report Shaji (Tiss)on 01-19-2025 ADDENDUM 1: [facility] Comment on above: Order Comment: Speci men Type: TISSUE SPECIMENOrdering Facility: [facility] Address: [address] [place] [address] Result Comment: NGS studies attempted on block A1 were canceled due to insufficient DNA concentration. Repeat testing will be attempted on block A3.Addendum electronically signed by Tere Walls MD, PhD on 02/09/2025 at 1315 EDT Performed By: #### 6 6121-5 ####[facility] LABIA [id number] [address] [address] [place] ADDENDUM 2: [facility] Comment on above: Order Comment: Speci men Type: TISSUE SPECIMENOrdering Facility: [facility] Address: [address] [place] [address] Result Comment: NGS studies identified pathogenic variants in JOY and BIRC3 as described below. TP53 mutations were not identified.Pathogenic variants:1. JOY: Chr11(GRCh37):g.[id number];NM_000051.3(JOY):c.217_ 218del; p.Zfs16Aqklw*26 (81%)2. BIRC3: Chr11(GRCh37):g.759889994G>G;NM_001165.4(BIRC3):c.1322C>G; p.Inc423* (77%)Addendum electronically signed by Tere Walls MD, PhD on 02/24/2025 at 1312 EDT Performed By: #### 6 6121-5 ####[facility] LABIA [id number] [address] [address] [place] AP DISCLAIMER [facility] Comment on above: Order Comment: Speci men Type: TISSUE SPECIMENOrdering Facility: [facility] Address: [address] [place] [address] Result Comment: Krysten redman Developed Test (LDT) Disclaimer:Performance characteristics of immunohistochemical, immunofluorescent, and chromogenic in-situ hybridization tests have been determined by the performing laboratory within [facility]'s Deanne Julio [facility] miguel Pathology and Laboratory Medicine Department ([facility], [facility], [facility], [facility], [facility], [facility], or [facility]) in a manner consistent with CLIA requirements. One or more of these tests may not have been cleared or approved by the FDA. RT-PLM is regulated under CLIA as qualified to perform high-complexity testing. These tests are used for clinical purposes. These should not be regarded as investigational or for research. Positive and negative controls stain appropriately. Performed By: #### 6 6121-5 ####[facility] LABCLIA [id number] [place] [address] [place] CASE REPORT Normal [facility] Comment on above: Order Comment: Speci men Type: TISSUE SPECIMENOrdering Facility: [facility] Address: [address] [place] [address] Result Comment: Surg ica Pathology Report Case: [id number] Provider: Carson Barr MD Collected: 01/19/2025 01:22 PMOrdering Location: [facility] Radiology Received: 01/19/2025 02:10 PMPathologist: Tree Walls MD, PhDSpecimen: Lymph Node, Biopsy, Left Supraclavicular Performed By: #### 6 6121-5 ####[facility] LABCLIA [id number] [place] [address] [place] CLINICAL HISTORY Lymphadenopathy. Lef t supraclavicular node biopsied Normal [facility] Comment on above: Order Comment: Speci men Type: TISSUE SPECIMENOrdering Facility: [facility] Address: [address] [place] [address] Performed By: #### 6 6121-5 ####[facility] LABCLIA [id number] [address] [address] [place] DIAGNOSIS COMMENT The morphologic find ings and ancillary studies described below demonstrate involvement by mantle cell lymphoma. This case displays cytologic features of the classic type. NGS studies including TP53 mutations remains pending. An addendum will follow. [facility] Comment on above: Order Comment: Speci men Type: TISSUE SPECIMENOrdering Facility: [facility] Address: [address] [place] [address] Performed By: #### 6 6121-5 ####[facility] LABCLIA [id number] [address] [place] FINAL DIAGNOSIS Normal [facility] Comment on above: Order Comment: Speci men Type: TISSUE SPECIMENOrdering Facility: [facility] Address: [address] [place] [address] Result Comment: Oscar. Jefferson ymph node, left axilla, core biopsy:- Involved by mantle cell lymphoma.- See cleveYA/MIKE 01/22/25 at 1135 EDT Performed By: #### 6 6121-5 ####[facility] LABCLIA [id number] [address] [place] MICROSCOPIC DESCRIPTION Normal [facility] Comment on above: Order Comment: Speci men Type: TISSUE SPECIMENOrdering Facility: [facility] Address: [address] [place] [address] Result Comment: Hist ologic sections show cores of lymphoid tissue with an infiltrate of atypical small to medium sized lymphocytes with scant cytoplasm, angulated nuclear contour, irregularly dispersed chromatin and inconspicuous nucleoli. Flow cytometric studies show a CD5 positive, lambda monotypic B-cell population.Immunohistochemical stains were performed with adequate controls. The atypical lymphocytes are positive for CD20 and coexpress CD5, cyclin D1 and Bcl-2. Ki67 is positive in approximately 5% of nuclei. p53 shows only rare positive cells (<5%). CD10 and BCL6 are negative. CD3 highlights scattered T lymphocytes. CD21 highlights few follicular dendritic cells. Performed By: #### 6 6121-5 ####[facility] LABCLIA [id number] [place] [address] [place] Tiss Path Bx reporton 2024 FINAL PERFORMING LAB [facility] Comment on above: Order Comment: Speci men Type: TISSUE SPECIMENOrdering Facility: [facility] Address: [address] [place] [address] Result Comment: Diag nostic interpretation performed at: [facility], [address] [place] [address], [place] [address] CLIA# [id number] Director: Russ Hollis MD Performed By: #### 6 6121-5 ####[facility] LABIA [id number] [place] [address] [place] Result Comment: Diag nostic interpretation performed at [facility], [address] [place] [address] CLIA# [id number] Director: Russ Hollis M.D. Performed By: #### F CLLRFLX ####[facility] LABIA [id number] [place] [address] [place] GROSS DESCRIPTION Normal [facility] Comment on above: Order Comment: Speci men Type: TISSUE SPECIMENOrdering Facility: [facility] Address: [address] [place] [address] Result Comment: A. L ymph Node, BiopsyReceived in RPMI are multiple segments of cylindrical tissue aggregating to 3.8 x 0.1 x 0.1 cm, osorio and of a friable consistency. The washings are submitted for flow cytometry. The remaining tissue is totally submitted in formalin in three cassettes.CL January 19, 2025 4:06 PMGross examination performed at [facility], [address] [place] [address] Performed By: #### 6 6121-5 ####[facility] LABIA [id number] [address] [place] Result Comment: A. L ymph Node, BiopsyRECEIVED 15ML WASHINGS WITH RPMICorrected results: Previously reported on 01/23/2025 at 11:35 AM EDT. Performed By: #### F CLLRFLX ####[facility] LABIA [id number] [place] [address] [place] US BIOPSY CERVICAL LYMPH NOD Donny 01-19-2025 US BIOPSY CERVICAL LYMPH NODE Normal [facility] CNPNon 01-15-2025 CNPN Normal [facility] CNOVon 08-06-2025 CNOV Normal [facility] CNPNon 01-13-2025 CNPN Normal [facility] CASE MGT INIT ASSESon 2024 CASE MGT INIT ASSES Normal [facility] CBC W Auto Differential pane l (Bld)on 01-12-2025 Anisocytosis Ql (Bld) Present Normal [facility] Comment on above: Order Comment: Speci men Type: BLOOD SPECIMENOrdering Facility: [facility] Address: [address] [place] [address] Performed By: #### 5 7021-8 ####[facility] LABCLIA [id number] [place] [address] [place] Basophils (Bld) [#/Vol] 0.00 10*3/uL Normal <0.11 [facility] Comment on above: Order Comment: Speci men Type: BLOOD SPECIMENOrdering Facility: [facility] Address: [address] [place] [address] Performed By: #### 5 7021-8 ####[facility] LABCLIA [id number] [place] [address] [place] Basophils/100 WBC (Bld) 0.0 % Normal [facility] Comment on above: Order Comment: Speci men Type: BLOOD SPECIMENOrdering Facility: [facility] Address: [address] [place] [address] Performed By: #### 5 7021-8 ####[facility] LABCLIA [id number] [place] [address] [place] BLAST% 1.0 % High <=0.0 [facility] Comment on above: Order Comment: Speci men Type: BLOOD SPECIMENOrdering Facility: [facility] Address: [address] [place] [address] Performed By: #### 5 7021-8 ####[facility] LABCLIA [id number] [place] [address] [place] Dacrocytes LM Ql (Bld) Few Normal [facility] Comment on above: Order Comment: Speci men Type: BLOOD SPECIMENOrdering Facility: [facility] Address: [address] [place] [address] Performed By: #### 5 7021-8 ####[facility] LABCLIA [id number] [place] [address] [place] Differential cell count method Nom (Bld) Manual Normal [facility] Comment on above: Order Comment: Speci men Type: BLOOD SPECIMENOrdering Facility: [facility] Address: [address] [place] [address] Performed By: #### 5 7021-8 ####[facility] LABCLIA [id number] [place] [address] [place] Eosinophils (Bld) [#/Vol] 0.04 10*3/uL Normal <0.46 [facility] Comment on above: Order Comment: Speci men Type: BLOOD SPECIMENOrdering Facility: [facility] Address: [address] [place] [address] Performed By: #### 5 7021-8 ####[facility] LABCLIA [id number] [place] [address] [place] Eosinophils/100 WBC (Bld) 1.0 % Normal [facility] Comment on above: Order Comment: Speci men Type: BLOOD SPECIMENOrdering Facility: [facility] Address: [address] [place] [address] Performed By: #### 5 7021-8 ####[facility] LABCLIA [id number] [place] [address] [place] Erythrocyte distribution width (RBC) [Ratio] 15.9 % High 11.5-15.0 [facility] Comment on above: Order Comment: Speci men Type: BLOOD SPECIMENOrdering Facility: [facility] Address: [address] [place] [address] Performed By: #### 5 7021-8 ####[facility] LABCLIA [id number] [place] [address] [place] Hematocrit (Bld) [Volume fraction] 28.0 % Low 39.0-51.0 [facility] Comment on above: Order Comment: Speci men Type: BLOOD SPECIMENOrdering Facility: [facility] Address: [address] [place] [address] Performed By: #### 5 7021-8 ####[facility] LABIA [id number] [place] [address] [place] Hemoglobin (Bld) [Mass/Vol] 8.8 g/dL Low 13.0-17.0 [facility] Comment on above: Order Comment: Speci men Type: BLOOD SPECIMENOrdering Facility: [facility] Address: [address] [place] [address] Performed By: #### 5 7021-8 ####[facility] LABIA [id number] [place] [address] [place] Lymphocytes (Bld) [#/Vol] 1.06 10*3/uL Normal 1.00-4.00 [facility] Comment on above: Order Comment: Speci men Type: BLOOD SPECIMENOrdering Facility: [facility] Address: [address] [place] [address] Performed By: #### 5 7021-8 ####[facility] LABIA [id number] [place] [address] [place] Lymphocytes/100 WBC (Bld) 25.0 % Normal [facility] Comment on above: Order Comment: Speci men Type: BLOOD SPECIMENOrdering Facility: [facility] Address: [address] [place] [address] Performed By: #### 5 7021-8 ####[facility] LABIA [id number] [place] [address] [place] MCH (RBC) [Entitic mass] 28.2 pg Normal 26.0-34.0 [facility] Comment on above: Order Comment: Speci men Type: BLOOD SPECIMENOrdering Facility: [facility] Address: [address] [place] [address] Performed By: #### 5 7021-8 ####[facility] LABCLIA [id number] [place] [address] [place] MCHC (RBC) [Mass/Vol] 31.4 g/dL Normal 30.5-36.0 [facility] Comment on above: Order Comment: Speci men Type: BLOOD SPECIMENOrdering Facility: [facility] Address: [address] [place] [address] Performed By: #### 5 7021-8 ####[facility] LABIA [id number] [place] [address] [place] MCV (RBC) [Entitic vol] 89.7 fL Normal 80.0-100.0 [facility] Comment on above: Order Comment: Speci men Type: BLOOD SPECIMENOrdering Facility: [facility] Address: [address] [place] [address] Performed By: #### 5 7021-8 ####[facility] LABIA [id number] [place] [address] [place] Monocytes (Bld) [#/Vol] 0.17 10*3/uL Normal <0.87 [facility] Comment on above: Order Comment: Speci men Type: BLOOD SPECIMENOrdering Facility: [facility] Address: [address] [place] [address] Performed By: #### 5 7021-8 ####[facility] LABIA [id number] [place] [address] [place] Monocytes/100 WBC (Bld) 4.0 % Normal [facility] Comment on above: Order Comment: Speci men Type: BLOOD SPECIMENOrdering Facility: [facility] Address: [address] [place] [address] Performed By: #### 5 7021-8 ####[facility] LABCLIA [id number] [place] [address] [place] Neutrophils (Bld) [#/Vol] 2.93 10*3/uL Normal 1.45-7.50 [facility] Comment on above: Order Comment: Speci men Type: BLOOD SPECIMENOrdering Facility: [facility] Address: [address] [place] [address] Performed By: #### 5 7021-8 ####[facility] [facility] LABCLIA [id number] [place] [address] [place] Neutrophils/100 WBC (Bld) 69.0 % Normal [facility] Comment on above: Order Comment: Speci men Type: BLOOD SPECIMENOrdering Facility: [facility] Address: [address] [place] [address] Performed By: #### 5 7021-8 ####[facility] LABCLIA [id number] [place] [address] [place] Nucleated RBC (Bld) [#/Vol] 10*3/uL Normal <0.01 [facility] Comment on above: Order Comment: Speci men Type: BLOOD SPECIMENOrdering Facility: [facility] Address: [address] [place] [address] Performed By: #### 5 7021-8 ####[facility] LABCLIA [id number] [place] [address] [place] Nucleated RBC/100 WBC (Bld) [Ratio] 0.0 /100 WBC Normal [facility] Comment on above: Order Comment: Speci men Type: BLOOD SPECIMENOrdering Facility: [facility] Address: [address] [place] [address] Performed By: #### 5 7021-8 ####[facility] LABCLIA [id number] [place] [address] [place] Ovalocytes LM Ql (Bld) Few Normal Cl [facility] Comment on above: Order Comment: Speci men Type: BLOOD SPECIMENOrdering Facility: [facility] Address: [address] [place] [address] Performed By: #### 5 7021-8 ####[facility] LABIA [id number] [address] [place] [address] [place] Platelet mean volume (Bld) [Entitic vol] 9.0 fL Normal 9.0-12.7 [facility] Comment on above: Order Comment: Speci men Type: BLOOD SPECIMENOrdering Facility: [facility] Address: [address] [place] [address] Performed By: #### 5 7021-8 ####[facility] LABIA [id number] [address] [place] [address] [place] Platelets (Bld) [#/Vol] 210 10*3/uL Normal 150-400 [facility] Comment on above: Order Comment: Speci men Type: BLOOD SPECIMENOrdering Facility: [facility] Address: [address] [place] [address] Performed By: #### 5 7021-8 ####[facility] LABIA [id number] [address] [place] [address] [place] Platelets Estimate (Bld) [#/Vol] Adequate Normal [facility] Comment on above: Order Comment: Speci men Type: BLOOD SPECIMENOrdering Facility: [facility] Address: [address] [place] [address] Performed By: #### 5 7021-8 ####[facility] LABIA [id number] [address] [address] [place] Polychromasia LM Ql (Bld) Slight Normal [facility] Comment on above: Order Comment: Speci men Type: BLOOD SPECIMENOrdering Facility: [facility] Address: [address] [place] [address] Performed By: #### 5 7021-8 ####[facility] LABCLIA [id number] [place] [address] [place] RBC (Bld) [#/Vol] 3.12 10*6/uL Low 4.20-6.00 [facility] Comment on above: Order Comment: Speci men Type: BLOOD SPECIMENOrdering Facility: [facility] Address: [address] [place] [address] Performed By: #### 5 7021-8 ####[facility] LABIA [id number] [place] [address] [place] RED CELL MORPH Reviewed: see result s of individual morphologies Normal [facility] Comment on above: Order Comment: Speci men Type: BLOOD SPECIMENOrdering Facility: [facility] Address: [address] [place] [address] Performed By: #### 5 7021-8 ####[facility] LABIA [id number] [place] [address] [place] WBC (Bld) [#/Vol] 4.24 10*3/uL Normal 3.70-11.00 [facility] Comment on above: Order Comment: Speci men Type: BLOOD SPECIMENOrdering Facility: [facility] Address: [address] [place] [address] Performed By: #### 5 7021-8 ####[facility] [id number] [place] [address] [place] CNDSon 01-12-2025 CNDS Normal [facility] CNPNon 01-12-2025 CNPN Normal [facility] CONSULTon 01-12-2025 CONSULT Normal [facility] CT ABD/PEL W IVCONon 025 CT ABD/PEL W IVCON Normal [facility] CT CHEST W IVCONon 5 CT CHEST W IVCON Normal [facility] metabolic 2000 panelon 01-12-2025 Albumin [Mass/Vol] 2.5 g/dL Low 3.9-4.9 [facility] Comment on above: Order Comment: Speci men Type: BLOOD SPECIMENOrdering Facility: [facility] Address: [address] [place] [address] Performed By: #### 2 4323-8 ####[facility] LABCLIA [id number] [facility] [place] [id number] [place] ALP [Catalytic activity/Vol] 92 U/L Normal 38-113 [facility] Comment on above: Order Comment: Speci men Type: BLOOD SPECIMENOrdering Facility: [facility] Address: [address] [place] [address] Performed By: #### 2 4323-8 ####[facility] LABCLIA [id number] [facility] [place] [address] [place] ALT [Catalytic activity/Vol] 17 U/L Normal 10-54 [facility] Comment on above: Order Comment: Speci men Type: BLOOD SPECIMENOrdering Facility: [facility] Address: [address] [place] [address] Performed By: #### 2 4323-8 ####[facility] LABCLIA [id number] [place] [address] [place] Anion gap [Moles/Vol] 9 mmol/L Normal 8-15 [facility] Comment on above: Order Comment: Speci men Type: BLOOD SPECIMENOrdering Facility: [facility] Address: [address] [place] [address] Performed By: #### 2 4323-8 ####[facility] LABCLIA [id number] [facility] [place] [id number] [place] AST [Catalytic activity/Vol] 15 U/L Normal 14-40 [facility] Comment on above: Order Comment: Speci men Type: BLOOD SPECIMENOrdering Facility: [facility] Address: [address] [place] [address] Performed By: #### 2 4323-8 ####[facility] LABCLIA [id number] [facility] [address] [address] [place] Bilirubin [Mass/Vol] 0.6 mg/dL Normal 0.2-1.3 [facility] Comment on above: Order Comment: Speci men Type: BLOOD SPECIMENOrdering Facility: [facility] Address: [address] [place] [address] Performed By: #### 2 4323-8 ####[facility] LABCLIA [id number] [facility] [place] [id number] [place] Calcium [Mass/Vol] 8.0 mg/dL Low 8.5-10.2 [facility] Comment on above: Order Comment: Speci men Type: BLOOD SPECIMENOrdering Facility: [facility] Address: [address] [place] [address] Performed By: #### 2 4323-8 ####[facility] LABCLIA [id number] [place] [id number] [place] Chloride [Moles/Vol] 108 mmol/L High 98-107 [facility] Comment on above: Order Comment: Speci men Type: BLOOD SPECIMENOrdering Facility: [facility] Address: [address] [place], [place] [address] Performed By: #### 2 4323-8 ####[facility] LABCLIA [id number] [place] [id number] [place] CO2 [Moles/Vol] 22 mmol/L Normal 22-30 [facility] Comment on above: Order Comment: Speci men Type: BLOOD SPECIMENOrdering Facility: [facility] Address: [address] [place], [place] [address] Performed By: #### 2 4323-8 ####[facility] LABCLIA [id number] [address] [address] [place] Creatinine [Mass/Vol] 1.19 mg/dL Normal 0.73-1.22 [facility] Comment on above: Order Comment: Demarco harris Type: BLOOD SPECIMENOrdering Facility: [facility] Address: [address] [place] [address] Performed By: #### 2 4323-8 ####[facility] LABCLIA [id number] [place] [address] [place] eGFRcr SerPlBld CKD-EPI 2020 64 mL/min/1.73m??? Normal >=60 [facility] Comment on above: Order Comment: Demarco harris Type: BLOOD SPECIMENOrdering Facility: [facility] Address: [address] [place] [address] Result Comment: Nancy mated Glomerular Filtration Rate (eGFR) is calculated using the 2020 CKD-EPI creatinine equation. This equation utilizes serum creatinine, sex, and age as parameters. The creatinine assay has traceable calibration to isotope dilution-mass spectrometry. Refer to KDIGO guidelines for clinical interpretation. In patients with unstable renal function, e.g. those with acute kidney injury, the eGFR may not accurately reflect actual GFR. Performed By: #### 2 4323-8 ####[facility] LABCLIA [id number] [place] [address] [place] Glucose [Mass/Vol] 271 mg/dL High 74-99 [facility] Comment on above: Order Comment: Demarco harris Type: BLOOD SPECIMENOrdering Facility: [facility] Address: [address] [place] [address] Result Comment: The [place] [employer] (ADA) provides guidance for cutoff values for fasting glucose and random glucose. The ADA defines fasting as no caloric intake for at least 8 hours. Fasting plasma glucose results between 100 to 125 mg/dL indicate increased risk for diabetes (prediabetes).Fasting plasma glucose results greater than or equal to 126 mg/dL meet the criteria for diagnosis of diabetes. In the absence of unequivocal hyperglycemia, results should be confirmed by repeat testing. In a patient with classic symptoms of hyperglycemia or hyperglycemic crisis, random plasma glucose results greater than or equal to 200 mg/dL meet the criteria for diagnosis of diabetes.Reference: Standards of Medical Care in Diabetes 2016, [place] [employer]. Diabetes Care. 2016.39(Suppl 1). Performed By: #### 2 4323-8 ####[facility] LABCLIA [id number] [address] [address] [place] Potassium [Moles/Vol] 4.4 mmol/L Normal 3.7-5.1 [facility] Comment on above: Order Comment: Speci men Type: BLOOD SPECIMENOrdering Facility: [facility] Address: [address] [place] [address] Performed By: #### 2 4323-8 ####[facility] LABCLIA [id number] [address] [address] [place] Protein [Mass/Vol] 4.8 g/dL Low 6.3-8.0 [facility] Comment on above: Order Comment: Speci men Type: BLOOD SPECIMENOrdering Facility: [facility] Address: [address] [place] [address] Performed By: #### 2 4323-8 ####[facility] LABIA [id number] [place] [id number] [place] Sodium [Moles/Vol] 139 mmol/L Normal 136-144 [facility] Comment on above: Order Comment: Speci men Type: BLOOD SPECIMENOrdering Facility: [facility] Address: [address] [place] [address] Performed By: #### 2 4323-8 ####[facility] LABCLIA [id number] [address] [address] [place] Urea nitrogen [Mass/Vol] 25 mg/dL High 9-24 [facility] Comment on above: Order Comment: Speci men Type: BLOOD SPECIMENOrdering Facility: [facility] Address: [address] [place] [address] Performed By: #### 2 4323-8 ####[facility] LABIA [id number] [address] [address] [place] HBV core Ab Ser Qlon 025 HBV core Ab Ql (S) Negative Normal Negative [facility] Comment on above: Order Comment: Speci men Type: BLOOD SPECIMENOrdering Facility: [facility] Address: [address] [place] [address] Result Comment: No e vidence of current or past infection with Hepatitis B virus. Should recent infection be suspected, repeat testing may be considered 3-4 weeks after this draw. Performed By: #### 2 2322-2, 5195-3, 17520-7 ####[facility] LABCLIA [id number] [place] [address] [place] HBV surface Ab Ql (S)on HBV surface Ab Qn (S) <8.00 Normal [facility] Comment on above: Order Comment: Speci men Type: BLOOD SPECIMENOrdering Facility: [facility] Address: [address] [place] [address] Result Comment: <8 m IU/mL: No serological evidence of immunity to Hepatitis B Virus.>/= 8 to <12 mIU/mL: No serological evidence of immunity to Hepatitis B Virus.>/= 12 mIU/mL: Consistent with serological evidence of immunity to Hepatitis B Virus. Performed By: #### 2 2322-2, 5195-3, 57961-2 ####[facility] LABCLIA [id number] [place] [address] [place] HBV surface Ab Ser Qlon HBV surface Ab Ql (S) Negative Normal [facility] Comment on above: Order Comment: Speci men Type: BLOOD SPECIMENOrdering Facility: [facility] Address: [address] [place] [address] Result Comment: No s erological evidence of immunity to Hepatitis B Virus. Performed By: #### 2 2322-2, 5195-3, 07673-4 ####[facility] LABCLIA [id number] [place] [id number] [place] HBV surface Ag Ser Qlon HBV surface Ag Ql (S) Negative Normal Negative [facility] Comment on above: Order Comment: Speci men Type: BLOOD SPECIMENOrdering Facility: [facility] Address: [address] [place] [address] Performed By: #### 2 2322-2, 5195-3, 74899-3 ####[facility] LABIA [id number] [place] [address] [place] HCV Ab Ser Qlon 01-12-2025 HCV Ab Ql (S) Negative Normal Negative [facility] Comment on above: Order Comment: Speci men Type: BLOOD SPECIMENOrdering Facility: [facility] Address: [address] [place] [address] Result Comment: The result suggests no evidence of infection with Hepatitis C virus. Should recent infection be suspected, repeat testing may be considered 4-6 weeks after this draw. Performed By: #### 1 6128-1 ####[facility] LABIA [id number] [place] [address] [place] LDH SerPl-cCncon 01-12-2025 LDH [Catalytic activity/Vol] 360 U/L High 135-225 [facility] Comment on above: Order Comment: Speci men Type: BLOOD SPECIMENOrdering Facility: [facility] Address: [address] [place] [address] Performed By: #### 2 532-0 ####[facility] LABIA [id number] [place] [address] [place] CBC W Auto Differential pane l (Bld)on 01-11-2025 Basophils (Bld) [#/Vol] 10*3/uL Normal <0.11 [facility] Comment on above: Order Comment: Speci men Type: BLOOD SPECIMENOrdering Facility: [facility] Address: [address] [place] [address] Performed By: #### 5 7021-8 ####[facility] LABIA [id number] [place] [address] [place] Basophils/100 WBC (Bld) 0.0 % Normal [facility] Comment on above: Order Comment: Speci men Type: BLOOD SPECIMENOrdering Facility: [facility] Address: [address] [place] [address] Performed By: #### 5 7021-8 ####[facility] LABCLIA [id number] [place] [address] [place] Differential cell count method Nom (Bld) Auto Normal [facility] Comment on above: Order Comment: Speci men Type: BLOOD SPECIMENOrdering Facility: [facility] Address: [address] [place] [address] Performed By: #### 5 7021-8 ####[facility] LABCLIA [id number] [place] [address] [place] Eosinophils (Bld) [#/Vol] 0.03 10*3/uL Normal <0.46 [facility] Comment on above: Order Comment: Speci men Type: BLOOD SPECIMENOrdering Facility: [facility] Address: [address] [place] [address] Performed By: #### 5 7021-8 ####[facility] LABCLIA [id number] [address] [place] Eosinophils/100 WBC (Bld) 1.0 % Normal [facility] Comment on above: Order Comment: Speci men Type: BLOOD SPECIMENOrdering Facility: [facility] Address: [address] [place] [address] Performed By: #### 5 7021-8 ####[facility] LABCLIA [id number] [place] [address] [place] Erythrocyte distribution width (RBC) [Ratio] 15.9 % High 11.5-15.0 [facility] Comment on above: Order Comment: Speci men Type: BLOOD SPECIMENOrdering Facility: [facility] Address: [address] [place] [address] Performed By: #### 5 7021-8 ####[facility] LABCLIA [id number] [place] [address] [place] Hematocrit (Bld) [Volume fraction] 27.0 % Low 39.0-51.0 [facility] Comment on above: Order Comment: Speci men Type: BLOOD SPECIMENOrdering Facility: [facility] Address: [address] [place] [address] Performed By: #### 5 7021-8 ####[facility] LABCLIA [id number] [address], [place] [address] [place] Hemoglobin (Bld) [Mass/Vol] 8.5 g/dL Low 13.0-17.0 [facility] Comment on above: Order Comment: Speci men Type: BLOOD SPECIMENOrdering Facility: [facility] Address: [address] [place] [address] Performed By: #### 5 7021-8 ####[facility] LABCLIA [id number] [place] [address] [place] Immature granulocytes (Bld) [#/Vol] 10*3/uL Normal <0.10 [facility] Comment on above: Order Comment: Speci men Type: BLOOD SPECIMENOrdering Facility: [facility] Address: [address] [place] [address] Performed By: #### 5 7021-8 ####[facility] LABCLIA [id number] [place] [id number] [place] Immature granulocytes/100 WBC (Bld) 0.7 % Normal [facility] Comment on above: Order Comment: Speci men Type: BLOOD SPECIMENOrdering Facility: [facility] Address: [address] [place] [address] Performed By: #### 5 7021-8 ####[facility] LABCLIA [id number] [address] [place] [address] [place] Lymphocytes (Bld) [#/Vol] 1.32 10*3/uL Normal 1.00-4.00 [facility] Comment on above: Order Comment: Speci men Type: BLOOD SPECIMENOrdering Facility: [facility] Address: [address] [place] [address] Performed By: #### 5 7021-8 ####[facility] LABIA [id number] [place] [address] [place] Lymphocytes/100 WBC (Bld) 43.9 % Normal [facility] Comment on above: Order Comment: Speci men Type: BLOOD SPECIMENOrdering Facility: [facility] Address: [address] [place] [address] Performed By: #### 5 7021-8 ####[facility] LABIA [id number] [place] [address] [place] MCH (RBC) [Entitic mass] 28.5 pg Normal 26.0-34.0 [facility] Comment on above: Order Comment: Speci men Type: BLOOD SPECIMENOrdering Facility: [facility] Address: [address] [place] [address] Performed By: #### 5 7021-8 ####[facility] LABIA [id number] [address] [place] MCHC (RBC) [Mass/Vol] 31.5 g/dL Normal 30.5-36.0 [facility] Comment on above: Order Comment: Speci men Type: BLOOD SPECIMENOrdering Facility: [facility] Address: [address] [place] [address] Performed By: #### 5 7021-8 ####[facility] LABIA [id number] [place] [address] [place] MCV (RBC) [Entitic vol] 90.6 fL Normal 80.0-100.0 [facility] Comment on above: Order Comment: Speci men Type: BLOOD SPECIMENOrdering Facility: [facility] Address: [address] [place] [address] Performed By: #### 5 7021-8 ####[facility] LABCLIA [id number] [address], [place] [address] [place] Monocytes (Bld) [#/Vol] 0.20 10*3/uL Normal <0.87 [facility] Comment on above: Order Comment: Speci men Type: BLOOD SPECIMENOrdering Facility: [facility] Address: [address] [place] [address] Performed By: #### 5 7021-8 ####[facility] LABCLIA [id number] [place] [address] [place] Monocytes/100 WBC (Bld) 6.6 % Normal [facility] Comment on above: Order Comment: Speci men Type: BLOOD SPECIMENOrdering Facility: [facility] Address: [address] [place] [address] Performed By: #### 5 7021-8 ####[facility] LABCLIA [id number] [place] [address] [place] Neutrophils (Bld) [#/Vol] 1.44 10*3/uL Low 1.45-7.50 [facility] Comment on above: Order Comment: Speci men Type: BLOOD SPECIMENOrdering Facility: [facility] Address: [address] [place] [address] Performed By: #### 5 7021-8 ####[facility] LABCLIA [id number] [place] [id number] [place] Neutrophils/100 WBC (Bld) 47.8 % Normal [facility] Comment on above: Order Comment: Speci men Type: BLOOD SPECIMENOrdering Facility: [facility] Address: [address] [place] [address] Performed By: #### 5 7021-8 ####[facility] LABCLIA [id number] [place] [address] [place] Nucleated RBC (Bld) [#/Vol] 10*3/uL Normal <0.01 [facility] Comment on above: Order Comment: Speci men Type: BLOOD SPECIMENOrdering Facility: [facility] Address: [address] [place] [address] Performed By: #### 5 7021-8 ####[facility] LABCLIA [id number] [place] [address] [place] Nucleated RBC/100 WBC (Bld) [Ratio] 0.0 /100 WBC Normal [facility] Comment on above: Order Comment: Speci men Type: BLOOD SPECIMENOrdering Facility: [facility] Address: [address] [place] [address] Performed By: #### 5 7021-8 ####[facility] LABCLIA [id number] [place] [address] [place] Platelet mean volume (Bld) [Entitic vol] 8.9 fL Low 9.0-12.7 [facility] Comment on above: Order Comment: Speci men Type: BLOOD SPECIMENOrdering Facility: [facility] Address: [address] [place] [address] Performed By: #### 5 7021-8 ####[facility] LABIA [id number] [place] [address] [place] Platelets (Bld) [#/Vol] 212 10*3/uL Normal 150-400 [facility] Comment on above: Order Comment: Speci men Type: BLOOD SPECIMENOrdering Facility: [facility] Address: [address] [place] [address] Performed By: #### 5 7021-8 ####[facility] LABCLIA [id number] [place] [id number] [place] RBC (Bld) [#/Vol] 2.98 10*6/uL Low 4.20-6.00 [facility] Comment on above: Order Comment: Speci men Type: BLOOD SPECIMENOrdering Facility: [facility] Address: [address] [place] [address] Performed By: #### 5 7021-8 ####[facility] LABCLIA [id number] [address] [address] [place] WBC (Bld) [#/Vol] 3.01 10*3/uL Low 3.70-11.00 [facility] Comment on above: Order Comment: Speci men Type: BLOOD SPECIMENOrdering Facility: [facility] Address: [address] [place], [place] [address] Performed By: #### 5 7021-8 ####[facility] LABCLIA [id number] [address] [address] [place] Comprehensive metabolic 2000 panelon 01-11-2025 Albumin [Mass/Vol] 2.5 g/dL Low 3.9-4.9 [facility] Comment on above: Order Comment: Speci men Type: BLOOD SPECIMENOrdering Facility: [facility] Address: [address] [place], [place] [address] Performed By: #### 2 4323-8 ####[facility] LABIA [id number] [address] [address] [place] ALP [Catalytic activity/Vol] 87 U/L Normal 38-113 [facility] Comment on above: Order Comment: Speci men Type: BLOOD SPECIMENOrdering Facility: [facility] Address: [address] [place], [place] [address] Performed By: #### 2 4323-8 ####[facility] LABCLIA [id number] [address] [address] [place] ALT [Catalytic activity/Vol] 15 U/L Normal 10-54 [facility] Comment on above: Order Comment: Speci men Type: BLOOD SPECIMENOrdering Facility: [facility] Address: [address] [place], [place] [address] Performed By: #### 2 4323-8 ####[facility] LABCLIA [id number] [address] [address] [place] Anion gap [Moles/Vol] 11 mmol/L Normal 8-15 [facility] Comment on above: Order Comment: Speci men Type: BLOOD SPECIMENOrdering Facility: [facility] Address: [address] [place] [address] Performed By: #### 2 4323-8 ####[facility] LABCLIA [id number] [place] [id number] [place] AST [Catalytic activity/Vol] 14 U/L Normal 14-40 [facility] Comment on above: Order Comment: Speci men Type: BLOOD SPECIMENOrdering Facility: [facility] Address: [address] [place] [address] Performed By: #### 2 4323-8 ####[facility] LABCLIA [id number] [place] [address] [place] Bilirubin [Mass/Vol] 0.7 mg/dL Normal 0.2-1.3 [facility] Comment on above: Order Comment: Speci men Type: BLOOD SPECIMENOrdering Facility: [facility] Address: [address] [place] [address] Performed By: #### 2 4323-8 ####[facility] LABCLIA [id number] [place] [id number] [place] Calcium [Mass/Vol] 7.9 mg/dL Low 8.5-10.2 [facility] Comment on above: Order Comment: Speci men Type: BLOOD SPECIMENOrdering Facility: [facility] Address: [address] [place] [address] Performed By: #### 2 4323-8 ####[facility] LABCLIA [id number] [place] [id number] [place] Chloride [Moles/Vol] 106 mmol/L Normal 98-107 [facility] Comment on above: Order Comment: Speci men Type: BLOOD SPECIMENOrdering Facility: [facility] Address: [address] [place] [address] Performed By: #### 2 4323-8 ####[facility] LABCLIA [id number] [place] [id number] [place] CO2 [Moles/Vol] 21 mmol/L Low 22-30 [facility] Comment on above: Order Comment: Speci men Type: BLOOD SPECIMENOrdering Facility: [facility] Address: [address] [place] [address] Performed By: #### 2 4323-8 ####[facility] LABIA [id number] [place] [address] [place] Creatinine [Mass/Vol] 1.57 mg/dL High 0.73-1.22 [facility] Comment on above: Order Comment: Speci men Type: BLOOD SPECIMENOrdering Facility: [facility] Address: [address] [place] [address] Performed By: #### 2 4323-8 ####[facility] [id number] [place] [address] [place] eGFRcr SerPlBld CKD-EPI 2020 46 mL/min/1.73m??? Low >=60 [facility] Comment on above: Order Comment: Speci men Type: BLOOD SPECIMENOrdering Facility: [facility] Address: [address] [place] [address] Result Comment: Nancy mated Glomerular Filtration Rate (eGFR) is calculated using the 2020 CKD-EPI creatinine equation. This equation utilizes serum creatinine, sex, and age as parameters. The creatinine assay has traceable calibration to isotope dilution-mass spectrometry. Refer to KDIGO guidelines for clinical interpretation. In patients with unstable renal function, e.g. those with acute kidney injury, the eGFR may not accurately reflect actual GFR. Performed By: #### 2 4323-8 ####[facility] LABCLIA [id number] [address] [address] [place] Glucose [Mass/Vol] 223 mg/dL High 74-99 [facility] Comment on above: Order Comment: Speci men Type: BLOOD SPECIMENOrdering Facility: [facility] Address: [address] [place] [address] Result Comment: The [place] Diabetes [employer] (ADA) provides guidance for cutoff values for fasting glucose and random glucose. The ADA defines fasting as no caloric intake for at least 8 hours. Fasting plasma glucose results between 100 to 125 mg/dL indicate increased risk for diabetes (prediabetes).Fasting plasma glucose results greater than or equal to 126 mg/dL meet the criteria for diagnosis of diabetes. In the absence of unequivocal hyperglycemia, results should be confirmed by repeat testing. In a patient with classic symptoms of hyperglycemia or hyperglycemic crisis, random plasma glucose results greater than or equal to 200 mg/dL meet the criteria for diagnosis of diabetes.Reference: Standards of Medical Care in Diabetes 2016, [place] [employer]. Diabetes Care. 2016.39(Suppl 1). Performed By: #### 2 4323-8 ####[facility] LABCLIA [id number] [address] [address] [place] Potassium [Moles/Vol] 4.2 mmol/L Normal 3.7-5.1 [facility] Comment on above: Order Comment: Speci men Type: BLOOD SPECIMENOrdering Facility: [facility] Address: [address] [place] [address] Performed By: #### 2 4323-8 ####[facility] LABCLIA [id number] [address] [address] [place] Protein [Mass/Vol] 4.6 g/dL Low 6.3-8.0 [facility] Comment on above: Order Comment: Speci men Type: BLOOD SPECIMENOrdering Facility: [facility] Address: [address] [place], [place] [address] Performed By: #### 2 4323-8 ####[facility] LABCLIA [id number] [place] [id number] [place] Sodium [Moles/Vol] 138 mmol/L Normal 136-144 [facility] Comment on above: Order Comment: Speci men Type: BLOOD SPECIMENOrdering Facility: [facility] Address: [address] [place] [address] Performed By: #### 2 4323-8 ####[facility] LABCLIA [id number] [place] [address] [place] Urea nitrogen [Mass/Vol] 26 mg/dL High 9-24 [facility] Comment on above: Order Comment: Speci men Type: BLOOD SPECIMENOrdering Facility: [facility] Address: [address] [place] [address] Performed By: #### 2 4323-8 ####[facility] LABCLIA [id number] [place] [address] [place] CNCOon 01-10-2025 CNCO Letter Text Normal [facility] CNDSon 01-10-2025 CNDS Normal [facility] Comprehensive metabolic 2000 panelon 01-10-2025 Albumin [Mass/Vol] 2.7 g/dL Low 3.9-4.9 [facility] Comment on above: Order Comment: Speci men Type: BLOOD SPECIMENOrdering Facility: [facility] Address: [address] [place] [address] Performed By: #### 1 9123-9, 2777-1, 72223-3 ####[facility]ATORYCLIA [id number] [place] [address] [place] ALP [Catalytic activity/Vol] 76 U/L Normal 38-113 [facility] Comment on above: Order Comment: Speci men Type: BLOOD SPECIMENOrdering Facility: [facility] Address: [address] [place] [address] Performed By: #### 1 9123-9, 2777-1, 14935-2 ####[facility]ORATORYCLIA [id number] [place] [address] [place] ALT [Catalytic activity/Vol] 14 U/L Normal 10-54 [facility] Comment on above: Order Comment: Speci men Type: BLOOD SPECIMENOrdering Facility: [facility] Address: [address] [place] [address] Performed By: #### 1 9123-9, 2776-06, 65485-0 ####[facility] LABORATORYCLIA [id number] [place] [address] [place] [facility] Anion gap [Moles/Vol] 9 mmol/L Normal 8-15 [facility] Comment on above: Order Comment: Speci men Type: BLOOD SPECIMENOrdering Facility: [facility] Address: [address] [place] [address] Performed By: #### 1 9123-9, 2776-06, 03069-5 ####[facility] LABORATORYCLIA [id number] [place] [address] [place] AST [Catalytic activity/Vol] 13 U/L Low 14-40 [facility] Comment on above: Order Comment: Speci men Type: BLOOD SPECIMENOrdering Facility: [facility] Address: [address] [place] [address] Performed By: #### 1 9123-9, 2776-06, 99313-6 ####[facility]ORATORYCLIA [id number] [address] [place] Bilirubin [Mass/Vol] 0.6 mg/dL Normal 0.2-1.3 [facility] Comment on above: Order Comment: Speci men Type: BLOOD SPECIMENOrdering Facility: [facility] Address: [address] [place] [address] Performed By: #### 1 9123-9, 2776-06, 78785-3 ####[facility]ATORYCLIA [id number] [address] [place] Calcium [Mass/Vol] 8.0 mg/dL Low 8.5-10.2 [facility] Comment on above: Order Comment: Speci men Type: BLOOD SPECIMENOrdering Facility: [facility] Address: [address] [place] [address] Performed By: #### 1 9123-9, 2776-06, 24031-3 ####[facility]ORATORYCLIA [id number] [place] [address] [place] Chloride [Moles/Vol] 105 mmol/L Normal 98-107 [facility] Comment on above: Order Comment: Demarco harris Type: BLOOD SPECIMENOrdering Facility: [facility] Address: [address] [place] [address] Performed By: #### 1 9123-9, 2777-1, 70458-6 ####[facility] [id number] [place] [address] [place] CO2 [Moles/Vol] 24 mmol/L Normal 22-30 [facility] Comment on above: Order Comment: Demarco harris Type: BLOOD SPECIMENOrdering Facility: [facility] Address: [address] [place] [address] Performed By: #### 1 9123-9, 2777-1, 03710-8 ####[facility]ORYCLIA [id number] [place] [address] [place] Creatinine [Mass/Vol] 1.36 mg/dL High 0.73-1.22 [facility] Comment on above: Order Comment: Demarco harris Type: BLOOD SPECIMENOrdering Facility: [facility] Address: [address] [place] [address] Performed By: #### 1 9123-9, 2777-1, 72605-7 ####[facility]ORYCLIA [id number] [place] [address] [place] eGFRcr SerPlBld CKD-EPI 2020 54 mL/min/1.73m??? Low >=60 [facility] Comment on above: Order Comment: Demarco harris Type: BLOOD SPECIMENOrdering Facility: [facility] Address: [address] [place] [address] Result Comment: Nancy mated Glomerular Filtration Rate (eGFR) is calculated using the 2020 CKD-EPI creatinine equation. This equation utilizes serum creatinine, sex, and age as parameters. The creatinine assay has traceable calibration to isotope dilution-mass spectrometry. Refer to KDIGO guidelines for clinical interpretation. In patients with unstable renal function, e.g. those with acute kidney injury, the eGFR may not accurately reflect actual GFR. Performed By: #### 1 9123-9, 2777, 95857-7 ####[facility]ORYCLIA [id number] [place] [address] [place] Glucose [Mass/Vol] 80 mg/dL Normal 74-99 [facility] Comment on above: Order Comment: Speci men Type: BLOOD SPECIMENOrdering Facility: [facility] Address: [address] [place] [address] Result Comment: The [place] Diabetes [employer] (ADA) provides guidance for cutoff values for fasting glucose and random glucose. The ADA defines fasting as no caloric intake for at least 8 hours. Fasting plasma glucose results between 100 to 125 mg/dL indicate increased risk for diabetes (prediabetes).Fasting plasma glucose results greater than or equal to 126 mg/dL meet the criteria for diagnosis of diabetes. In the absence of unequivocal hyperglycemia, results should be confirmed by repeat testing. In a patient with classic symptoms of hyperglycemia or hyperglycemic crisis, random plasma glucose results greater than or equal to 200 mg/dL meet the criteria for diagnosis of diabetes.Reference: Standards of Medical Care in Diabetes 2016, [place] [employer]. Diabetes Care. 2016.39(Suppl 1). Performed By: #### 1 9123-9, 27712-09, ####[facility]ATORYCLIA [id number] [place] [id number] [place] Potassium [Moles/Vol] 3.7 mmol/L Normal 3.7-5.1 [facility] Comment on above: Order Comment: Speci men Type: BLOOD SPECIMENOrdering Facility: [facility] Address: [address] [place] [address] Performed By: #### 1 9123-9, 27712-09, 43168-9 ####[facility]ATORYCLIA [id number] [place] [address] [place] Protein [Mass/Vol] 4.8 g/dL Low 6.3-8.0 [facility] Comment on above: Order Comment: Pemai men Type: BLOOD SPECIMENOrdering Facility: [facility] Address: [address] [place], [place] [address] Performed By: #### 1 9123-9, 27712-09, 92945-9 ####[facility]ORATORYCLIA [id number] [place] [address] [place] Sodium [Moles/Vol] 138 mmol/L Normal 136-144 [facility] Comment on above: Order Comment: Speci men Type: BLOOD SPECIMENOrdering Facility: [facility] Address: [address] [place] [address] Performed By: #### 1 9123-9, 2777-1, 39065-0 ####[facility]ORYCLIA [id number] [place] [id number] [place] Urea nitrogen [Mass/Vol] 23 mg/dL Normal 9-24 [facility] Comment on above: Order Comment: Speci men Type: BLOOD SPECIMENOrdering Facility: [facility] Address: [address] [place] [address] Performed By: #### 1 9123-9, 2777-1, 89220-5 ####[facility]ORYCLIA [id number] [place] [address] [place] HISTORY PHYSICALon HISTORY PHYSICAL Normal [facility] Magnesium SerPl-mCncon 01-10 Magnesium [Mass/Vol] 1.8 mg/dL Normal 1.7-2.3 [facility] Comment on above: Order Comment: Speci men Type: BLOOD SPECIMENOrdering Facility: [facility] Address: [address] [place] [address] Performed By: #### 1 9123-9, 2777-1, 37092-5 ####[facility]ORYCLIA [id number] [place] [address] [place] Phosphate SerPl-mCncon 01-10 Phosphate [Mass/Vol] 3.0 mg/dL Normal 2.7-4.8 [facility] Comment on above: Order Comment: Speci men Type: BLOOD SPECIMENOrdering Facility: [facility] Address: [address] [place] [address] Performed By: #### 1 9123-9, 2777-1, 00751-3 ####[facility]ORYCLIA [id number] [place] [id number] [place] 25(OH)D3 SerPl-mCncon 2024 25-hydroxyvitamin D3 [Mass/Vol] 36.4 ng/mL Normal 31.0-80.0 [facility] Comment on above: Order Comment: Speci men Type: BLOOD SPECIMENOrdering Facility: [facility] Address: [address] [place] [address] Performed By: #### 1 989-3 ####[facility] LABCLIA [id number] [place] [id number] [place] Basic metabolic 2000 panelon 01-09-2025 Anion gap [Moles/Vol] 11 mmol/L Normal 8-15 [facility] Comment on above: Order Comment: Speci men Type: BLOOD SPECIMENOrdering Facility: [facility] Address: [address] [place] [address] Performed By: #### 2 777-1, 08802-2 ####[facility]ATORYCLIA [id number] [place] [address] [place] Calcium [Mass/Vol] 7.6 mg/dL Low 8.5-10.2 [facility] Comment on above: Order Comment: Speci men Type: BLOOD SPECIMENOrdering Facility: [facility] Address: [address] [place] [address] Performed By: #### 2 777-1, 50209-7 ####[facility]ORATORYCLIA [id number] [place] [id number] [place] Chloride [Moles/Vol] 107 mmol/L Normal 98-107 [facility] Comment on above: Order Comment: Speci men Type: BLOOD SPECIMENOrdering Facility: [facility] Address: [address] [place] [address] Performed By: #### 2 777-1, 05422-0 ####[facility]ORATORYCLIA [id number] [place] [id number] [place] CO2 [Moles/Vol] 20 mmol/L Low 22-30 [facility] Comment on above: Order Comment: Speci men Type: BLOOD SPECIMENOrdering Facility: [facility] Address: [address] [place], [place] [address] [id number] Performed By: #### 2 777-1, 03046-5 ####[facility]ORATORYCLIA [id number] [place] [id number] [place] Creatinine [Mass/Vol] 1.23 mg/dL High 0.73-1.22 [facility] Comment on above: Order Comment: Specjoao men Type: BLOOD SPECIMENOrdering Facility: [facility] Address: [address] [place] [address] Performed By: #### 2 777-1, 29516-7 ####[facility]ORATORYCLIA [id number] [place] [id number] [place] eGFRcr SerPlBld CKD-EPI 2020 61 mL/min/1.73m??? Normal >=60 [facility] Comment on above: Order Comment: Demarco harris Type: BLOOD SPECIMENOrdering Facility: [facility] Address: [address] [place] [address] Result Comment: Nancy mated Glomerular Filtration Rate (eGFR) is calculated using the 2020 CKD-EPI creatinine equation. This equation utilizes serum creatinine, sex, and age as parameters. The creatinine assay has traceable calibration to isotope dilution-mass spectrometry. Refer to KDIGO guidelines for clinical interpretation. In patients with unstable renal function, e.g. those with acute kidney injury, the eGFR may not accurately reflect actual GFR. Performed By: #### 2 777-1, 88074-1 ####[facility]ORATORYCLIA [id number] [place] [id number] [place] Glucose [Mass/Vol] 118 mg/dL High 74-99 [facility] Comment on above: Order Comment: Demarco harris Type: BLOOD SPECIMENOrdering Facility: [facility] Address: [address] [place] [address] Result Comment: The [place] Diabetes Association (ADA) provides guidance for cutoff values for fasting glucose and random glucose. The ADA defines fasting as no caloric intake for at least 8 hours. Fasting plasma glucose results between 100 to 125 mg/dL indicate increased risk for diabetes (prediabetes).Fasting plasma glucose results greater than or equal to 126 mg/dL meet the criteria for diagnosis of diabetes. In the absence of unequivocal hyperglycemia, results should be confirmed by repeat testing. In a patient with classic symptoms of hyperglycemia or hyperglycemic crisis, random plasma glucose results greater than or equal to 200 mg/dL meet the criteria for diagnosis of diabetes.Reference: Standards of Medical Care in Diabetes 2016, [place] [employer]. Diabetes Care. 2016.39(Suppl 1). Performed By: #### 2 777-1, 30849-7 ####[facility]ORATORYCLIA [id number] [place] [address] [place] Potassium [Moles/Vol] 4.0 mmol/L Normal 3.7-5.1 [facility] Comment on above: Order Comment: Pemai men Type: BLOOD SPECIMENOrdering Facility: [facility] Address: [address] [place] [address] Performed By: #### 2 777-1, 58128-8 ####[facility] LABORATORYCLIA [id number] [address] [place] [facility] Sodium [Moles/Vol] 138 mmol/L Normal 136-144 [facility] Comment on above: Order Comment: Pemai kimberly Type: BLOOD SPECIMENOrdering Facility: [facility] Address: [address] [place] [address] Performed By: #### 2 777-1, 35983-1 ####[facility]ATORYCLIA [id number] [address] [place] Urea nitrogen [Mass/Vol] 23 mg/dL Normal 9-24 [facility] Comment on above: Order Comment: Pemai men Type: BLOOD SPECIMENOrdering Facility: [facility] Address: [address] [place] [address] Performed By: #### 2 777-1, 50202-9 ####[facility]ORATORYCLIA [id number] [place] [address] [place] CASE MANAGEMon 01-09-2025 CASE MANAGEM Normal [facility] CBC panel Auto (Bld)on 01-09 Erythrocyte distribution width (RBC) [Ratio] 16.0 % High 11.5-15.0 [facility] Comment on above: Order Comment: Speci men Type: BLOOD SPECIMENOrdering Facility: [facility] Address: [address] [place] [address] Performed By: #### 5 8410-2 ####[facility]ORATORYCLIA [id number] [address] Hematocrit (Bld) [Volume fraction] 28.4 % Low 39.0-51.0 [facility] Comment on above: Order Comment: Speci men Type: BLOOD SPECIMENOrdering Facility: [facility] Address: [address] [place] [address] Performed By: #### 5 8410-2 ####[facility]ATORYCLIA [id number] [address] [place] Hemoglobin (Bld) [Mass/Vol] 8.6 g/dL Low 13.0-17.0 [facility] Comment on above: Order Comment: Speci men Type: BLOOD SPECIMENOrdering Facility: [facility] Address: [address] [place] [address] Performed By: #### 5 8410-2 ####[facility]ATORYCLIA [id number] [address] MCH (RBC) [Entitic mass] 28.7 pg Normal 26.0-34.0 [facility] Comment on above: Order Comment: Speci men Type: BLOOD SPECIMENOrdering Facility: [facility] Address: [address] [place] [address] Performed By: #### 5 8410-2 ####[facility]ORATORYCLIA [id number] [address] [place] MCHC (RBC) [Mass/Vol] 30.3 g/dL Low 30.5-36.0 [facility] Comment on above: Order Comment: Speci men Type: BLOOD SPECIMENOrdering Facility: [facility] Address: [address] [place] [address] Performed By: #### 5 8410-2 ####[facility]ORATORYCLIA [id number] [address] MCV (RBC) [Entitic vol] 94.7 fL Normal 80.0-100.0 [facility] Comment on above: Order Comment: Speci men Type: BLOOD SPECIMENOrdering Facility: [facility] Address: [address] [place] [address] Performed By: #### 5 8410-2 ####[facility]ORATORYCLIA [id number] [place] [address] [place] Nucleated RBC (Bld) [#/Vol] 10*3/uL Normal <0.01 [facility] Comment on above: Order Comment: Speci men Type: BLOOD SPECIMENOrdering Facility: [facility] Address: [address] [place] [address] Performed By: #### 5 8410-2 ####[facility]ORATORYCLIA [id number] [place] [address] [place] Platelet mean volume (Bld) [Entitic vol] 9.7 fL Normal 9.0-12.7 [facility] Comment on above: Order Comment: Speci men Type: BLOOD SPECIMENOrdering Facility: [facility] Address: [address] [place] [address] Performed By: #### 5 8410-2 ####[facility]ORATORYCLIA [id number] [place] [address] [place] Platelets (Bld) [#/Vol] 210 10*3/uL Normal 150-400 [facility] Comment on above: Order Comment: Speci men Type: BLOOD SPECIMENOrdering Facility: [facility] Address: [address] [place] [address] Performed By: #### 5 8410-2 ####[facility]ORATORYCLIA [id number] [place] [address] [place] RBC (Bld) [#/Vol] 3.00 10*6/uL Low 4.20-6.00 [facility] Comment on above: Order Comment: Speci men Type: BLOOD SPECIMENOrdering Facility: [facility] Address: [address] [place] [address] Performed By: #### 5 8410-2 ####[facility]ORATORYCLIA [id number] [place] [address] [place] WBC (Bld) [#/Vol] 2.83 10*3/uL Low 3.70-11.00 [facility] Comment on above: Order Comment: Speci men Type: BLOOD SPECIMENOrdering Facility: [facility] Address: [address] [place] [address] Performed By: #### 5 8410-2 ####[facility]ATORYCLIA [id number] [address] [place] Erythrocyte distribution width (RBC) [Ratio] 15.9 % High 11.5-15.0 [facility] Comment on above: Order Comment: Speci men Type: BLOOD SPECIMENOrdering Facility: [facility] Address: [address] [place] [address] Performed By: #### 5 8410-2 ####[facility]ATORYCLIA [id number] [address] [place] Hematocrit (Bld) [Volume fraction] 26.5 % Low 39.0-51.0 [facility] Comment on above: Order Comment: Speci men Type: BLOOD SPECIMENOrdering Facility: [facility] Address: [address] [place] [address] Performed By: #### 5 8410-2 ####[facility]A LABORATORYCLIA [id number] [address] [place] Hemoglobin (Bld) [Mass/Vol] 8.4 g/dL Low 13.0-17.0 [facility] Comment on above: Order Comment: Speci men Type: BLOOD SPECIMENOrdering Facility: [facility] Address: [address] [place] [address] Performed By: #### 5 8410-2 ####[facility]A LABORATORYCLIA [id number] [address] [place] MCH (RBC) [Entitic mass] 28.3 pg Normal 26.0-34.0 [facility] Comment on above: Order Comment: Speci men Type: BLOOD SPECIMENOrdering Facility: [facility] Address: [address] [place] [address] Performed By: #### 5 8410-2 ####HERRERA LABORATORYCLIA [id number] [address] [place] MCHC (RBC) [Mass/Vol] 31.7 g/dL Normal 30.5-36.0 [facility] Comment on above: Order Comment: Speci men Type: BLOOD SPECIMENOrdering Facility: [facility] Address: [address] [place] [address] Performed By: #### 5 8410-2 ####HERRERA LABORATORYCLIA [id number] [place] [address] [place] MCV (RBC) [Entitic vol] 89.2 fL Normal 80.0-100.0 M [facility] Comment on above: Order Comment: Speci men Type: BLOOD SPECIMENOrdering Facility: [facility] Address: [address] [place] [address] Performed By: #### 5 8410-2 ####HERRERA LABORATORYCLIA [id number] [address] [place] Nucleated RBC (Bld) [#/Vol] 10*3/uL Normal <0.01 [facility] Comment on above: Order Comment: Speci men Type: BLOOD SPECIMENOrdering Facility: [facility] Address: [address] [place] [address] Performed By: #### 5 8410-2 ####HERRERA LABORATORYCLIA [id number] [place] [address] [place] Platelet mean volume (Bld) [Entitic vol] 8.7 fL Low 9.0-12.7 [facility] Comment on above: Order Comment: Speci men Type: BLOOD SPECIMENOrdering Facility: [facility] Address: [address] [place] [address] Performed By: #### 5 8410-2 ####HERRERA LABORATORYCLIA [id number] [place] [address] [place] Platelets (Bld) [#/Vol] 209 10*3/uL Normal 150-400 [facility] Comment on above: Order Comment: Speci men Type: BLOOD SPECIMENOrdering Facility: [facility] Address: [address] [place] [address] Performed By: #### 5 8410-2 ####HERRERA LABORATORYCLIA [id number] [place] [address] [place] RBC (Bld) [#/Vol] 2.97 10*6/uL Low 4.20-6.00 [facility] Comment on above: Order Comment: Speci men Type: BLOOD SPECIMENOrdering Facility: [facility] Address: [address] [place] [address] Performed By: #### 5 8410-2 ####HERRERA LABORATORYCLIA [id number] [address] [place] WBC (Bld) [#/Vol] 3.29 10*3/uL Low 3.70-11.00 [facility] Comment on above: Order Comment: Speci men Type: BLOOD SPECIMENOrdering Facility: [facility] Address: [address] [place] [address] Performed By: #### 5 8410-2 ####HERRERA LABORATORYCLIA [id number] [address] [place] Erythrocyte distribution width (RBC) [Ratio] 16.0 % High 11.5-15.0 [facility] Comment on above: Order Comment: Speci men Type: BLOOD SPECIMENOrdering Facility: [facility] Address: [address] [place] [address] Performed By: #### 5 8410-2 ####HERRERA LABORATORYCLIA [id number] [address] Hematocrit (Bld) [Volume fraction] 23.5 % Low 39.0-51.0 [facility] Comment on above: Order Comment: Speci men Type: BLOOD SPECIMENOrdering Facility: [facility] Address: [address] [place] [address] Performed By: #### 5 8410-2 ####HERRERA LABORATORYCLIA [id number] [address] Hemoglobin (Bld) [Mass/Vol] 7.5 g/dL Low 13.0-17.0 [facility] Comment on above: Order Comment: Speci men Type: BLOOD SPECIMENOrdering Facility: [facility] Address: [address] [place] [address] Performed By: #### 5 8410-2 ####HERRERA LABORATORYCLIA [id number] [address] [place] MCH (RBC) [Entitic mass] 28.5 pg Normal 26.0-34.0 [facility] Comment on above: Order Comment: Speci men Type: BLOOD SPECIMENOrdering Facility: [facility] Address: [address] [place] [address] Performed By: #### 5 8410-2 ####HERRERA LABORATORYCLIA [id number] [address] [place] MCHC (RBC) [Mass/Vol] 31.9 g/dL Normal 30.5-36.0 [facility] Comment on above: Order Comment: Speci men Type: BLOOD SPECIMENOrdering Facility: [facility] Address: [address] [place] [address] Performed By: #### 5 8410-2 ####HERRERA LABORATORYCLIA [id number] [address] MCV (RBC) [Entitic vol] 89.4 fL Normal 80.0-100.0 M [facility] Comment on above: Order Comment: Speci men Type: BLOOD SPECIMENOrdering Facility: [facility] Address: [address] [place] [address] Performed By: #### 5 8410-2 ####HERRERA LABORATORYCLIA [id number] [address] [place] Nucleated RBC (Bld) [#/Vol] 10*3/uL Normal <0.01 [facility] Comment on above: Order Comment: Speci men Type: BLOOD SPECIMENOrdering Facility: [facility] Address: [address] [place] [address] Performed By: #### 5 8410-2 ####HERRERA LABORATORYCLIA [id number] [address] Platelet mean volume (Bld) [Entitic vol] 9.0 fL Normal 9.0-12.7 [facility] Comment on above: Order Comment: Speci men Type: BLOOD SPECIMENOrdering Facility: [facility] Address: [address] [place] [address] Performed By: #### 5 8410-2 ####HERRERA LABORATORYCLIA [id number] [address] Platelets (Bld) [#/Vol] 199 10*3/uL Normal 150-400 [facility] Comment on above: Order Comment: Speci men Type: BLOOD SPECIMENOrdering Facility: [facility] Address: [address] [place] [address] Performed By: #### 5 8410-2 ####HERRERA LABORATORYCLIA [id number] [place] [address] [place] RBC (Bld) [#/Vol] 2.63 10*6/uL Low 4.20-6.00 [facility] Comment on above: Order Comment: Speci men Type: BLOOD SPECIMENOrdering Facility: [facility] Address: [address] [place] [address] Performed By: #### 5 8410-2 ####HERRERA LABORATORYCLIA [id number] [address] WBC (Bld) [#/Vol] 3.35 10*3/uL Low 3.70-11.00 [facility] Comment on above: Order Comment: Speci men Type: BLOOD SPECIMENOrdering Facility: [facility] Address: [address] [place] [address] Performed By: #### 5 8410-2 ####HERRERA LABORATORYCLIA [id number] [address] [place] CONSULT PROGon 01-09-2025 CONSULT PROG Normal [facility] CONSULT PROG Normal [facility] CYSTATIN Con 01-09-2025 Cystatin C [Mass/Vol] 1.89 mg/L High 0.61-0.95 [facility] Comment on above: Order Comment: Speci men Type: BLOOD SPECIMENOrdering Facility: [facility] Address: [address] [place] [address] Performed By: #### C YS ####[facility] LABCLIA [id number] [place] [id number] [place] CYSTATIN C EGFR 31 mL/min/1.73m??? Low >=60 M [facility] Comment on above: Order Comment: Demarco harris Type: BLOOD SPECIMENOrdering Facility: [facility] Address: [address] [place] [address] Result Comment: Nancy mated Glomerular Filtration Rate (eGFR) is calculated using the 2012 CKD-EPI cystatin C equation. This equation utilizes serum cystatin C, sex, and age as parameters. The cystatin C assay has traceable calibration to the [facility] reference material. Refer to KDIGO guidelines for clinical interpretation. In patients with unstable renal function, e.g. those with acute kidney injury, the eGFR may not accurately reflect actual GFR. Performed By: #### C YS ####[facility] [id number] [place] [address] [place] Calcium.ionized [Moles/Vol]o n 01-09-2025 Calcium.ionized (Bld) [Mass/Vol] 1.19 mmol/L Normal 1.08-1.30 [facility] Comment on above: Order Comment: Demarco harris Type: BLOOD SPECIMENOrdering Facility: [facility] Address: [address] [place] [address] Performed By: #### 1 995-0 ####[facility] [id number] [place] [address] [place] Calcium.ionized adjusted to pH 7.4 (Bld) [Moles/Vol] 1.23 mmol/L Normal 1.08-1.30 [facility] Comment on above: Order Comment: Demarco harris Type: BLOOD SPECIMENOrdering Facility: [facility] Address: [address] [place] [address] Performed By: #### 1 995-0 ####[facility] [id number] [place] [id number] [place] Magnesium SerPl-mCncon 08-01 -2025 Magnesium [Mass/Vol] 1.8 mg/dL Normal 1.7-2.3 [facility] Comment on above: Order Comment: Speci men Type: BLOOD SPECIMENOrdering Facility: [facility] Address: [address] [place] [address] Performed By: #### 1 9123-9, 2777-1 ####[facility] LABORATORYCLIA [id number] [place] [address] [place] PT EDon 01-09-2025 PT ED Normal [facility] PT ED Normal [facility] Phosphate SerPl-mCncon 01-09 Phosphate [Mass/Vol] 2.8 mg/dL Normal 2.7-4.8 [facility] Comment on above: Order Comment: Speci men Type: BLOOD SPECIMENOrdering Facility: [facility] Address: [address] [place] [address] Performed By: #### 1 9123-9, 2777-1 ####[facility] LABORATORYCLIA [id number] [place] [id number] [place] Phosphate [Mass/Vol] 2.2 mg/dL Low 2.7-4.8 [facility] Comment on above: Order Comment: Speci men Type: BLOOD SPECIMENOrdering Facility: [facility] Address: [address] [place] [address] Performed By: #### 2 777-1, 93241-5 ####[facility] LABORATORYCLIA [id number] [place] [address] [place] THERAPY NTon 01-09-2025 THERAPY NT Normal [facility] Basic metabolic 2000 panelon 01-08-2025 Anion gap [Moles/Vol] 9 mmol/L Normal 8-15 [facility] Comment on above: Order Comment: Speci men Type: BLOOD SPECIMENOrdering Facility: [facility] Address: [address] [place] [address] Performed By: #### 2 777-1, 83129-3, 92231-5 ####[facility] LABORATORYCLIA [id number] [place] [address] [place] Calcium [Mass/Vol] 7.6 mg/dL Low 8.5-10.2 [facility] Comment on above: Order Comment: Speci men Type: BLOOD SPECIMENOrdering Facility: [facility] Address: [address] [place] [address] Performed By: #### 2 777-1, 91259-1, ####HERRERA LABORATORYCLIA [id number] [place] [address] [place] Chloride [Moles/Vol] 108 mmol/L High 98-107 [facility] Comment on above: Order Comment: Speci men Type: BLOOD SPECIMENOrdering Facility: [facility] Address: [address] [place] [address] Performed By: #### 2 777-1, , ####HERRERA LABORATORYCLIA [id number] [place] [address] [place] CO2 [Moles/Vol] 22 mmol/L Normal 22-30 [facility] Comment on above: Order Comment: Speci men Type: BLOOD SPECIMENOrdering Facility: [facility] Address: [address] [place] [address] Performed By: #### 2 777-1, 58656-1, ####[facility] LABORATORYCLIA [id number] [place] [address] [place] Creatinine [Mass/Vol] 1.27 mg/dL High 0.73-1.22 [facility] Comment on above: Order Comment: Speci men Type: BLOOD SPECIMENOrdering Facility: [facility] Address: [address] [place] [address] Performed By: #### 2 777-1, , ####[facility] LABORATORYCLIA [id number] [place] [address] [place] eGFRcr SerPlBld CKD-EPI 2020 59 mL/min/1.73m??? Low >=60 [facility] Comment on above: Order Comment: Speci men Type: BLOOD SPECIMENOrdering Facility: [facility] Address: [address] [place] [address] Result Comment: Nancy mated Glomerular Filtration Rate (eGFR) is calculated using the 2020 CKD-EPI creatinine equation. This equation utilizes serum creatinine, sex, and age as parameters. The creatinine assay has traceable calibration to isotope dilution-mass spectrometry. Refer to KDIGO guidelines for clinical interpretation. In patients with unstable renal function, e.g. those with acute kidney injury, the eGFR may not accurately reflect actual GFR. Performed By: #### 2 777-1, 25978-6, ####[facility] LABORATORYCLIA [id number] [place] [address] [place] Glucose [Mass/Vol] 254 mg/dL High 74-99 [facility] Comment on above: Order Comment: Demarco harris Type: BLOOD SPECIMENOrdering Facility: [facility] Address: [address] [place] [address] Result Comment: The [place] [employer] (ADA) provides guidance for cutoff values for fasting glucose and random glucose. The ADA defines fasting as no caloric intake for at least 8 hours. Fasting plasma glucose results between 100 to 125 mg/dL indicate increased risk for diabetes (prediabetes).Fasting plasma glucose results greater than or equal to 126 mg/dL meet the criteria for diagnosis of diabetes. In the absence of unequivocal hyperglycemia, results should be confirmed by repeat testing. In a patient with classic symptoms of hyperglycemia or hyperglycemic crisis, random plasma glucose results greater than or equal to 200 mg/dL meet the criteria for diagnosis of diabetes.Reference: Standards of Medical Care in Diabetes 2016, [place] [employer]. Diabetes Care. 2016.39(Suppl 1). Performed By: #### 2 777-1, 26294-8, ####[facility] LABORATORYCLIA [id number] [place] [address] [place] Potassium [Moles/Vol] 4.2 mmol/L Normal 3.7-5.1 [facility] Comment on above: Order Comment: Demarco harris Type: BLOOD SPECIMENOrdering Facility: [facility] Address: [address] [place] [address] Performed By: #### 2 777-1, 02435-5, ####[facility] LABORATORYCLIA [id number] [place] [address] [place] Sodium [Moles/Vol] 139 mmol/L Normal 136-144 [facility] Comment on above: Order Comment: Speci men Type: BLOOD SPECIMENOrdering Facility: [facility] Address: [address] [place] [address] Performed By: #### 2 777-1, 49887-5, ####H[facility] LABORATORYCLIA [id number] [place], [place] [address] [place] [address] [place] Urea nitrogen [Mass/Vol] 26 mg/dL High 9-24 [facility] Comment on above: Order Comment: Speci men Type: BLOOD SPECIMENOrdering Facility: [facility] Address: [address] [place] [address] [place] [address] Performed By: #### 2 777-1, , ####[facility] LABORATORYCLIA [id number] [address] OF [facility] CASE MANAGEMon 01-08-2025 CASE MANAGEM Normal [facility] CBC panel Auto (Bld)on 01-08 Erythrocyte distribution width (RBC) [Ratio] 16.2 % High 11.5-15.0 [facility] Comment on above: Order Comment: Speci men Type: BLOOD SPECIMENOrdering Facility: [facility] Address: [address] [place] [address] Performed By: #### 5 8410-2, 30130-2 ####[facility] LABORATORYCLIA [id number] [address] [place] Hematocrit (Bld) [Volume fraction] 24.5 % Low 39.0-51.0 [facility] Comment on above: Order Comment: Speci men Type: BLOOD SPECIMENOrdering Facility: [facility] Address: [address] [place] [address] Performed By: #### 5 8410-2, 43887-6 ####[facility] LABORATORYCLIA [id number] [address] [place] Hemoglobin (Bld) [Mass/Vol] 7.9 g/dL Low 13.0-17.0 [facility] Comment on above: Order Comment: Speci men Type: BLOOD SPECIMENOrdering Facility: [facility] Address: [address] [place] [address] [place] [address] Performed By: #### 5 8410-2, 00637-4 ####[facility] LABORATORYCLIA [id number] [address] MCH (RBC) [Entitic mass] 28.9 pg Normal 26.0-34.0 [facility] Comment on above: Order Comment: Speci men Type: BLOOD SPECIMENOrdering Facility: [facility] Address: [address] [place] [address] Performed By: #### 5 8410-2, 64325-3 ####[facility] LABORATORYCLIA [id number] [address] MCHC (RBC) [Mass/Vol] 32.2 g/dL Normal 30.5-36.0 [facility] Comment on above: Order Comment: Speci men Type: BLOOD SPECIMENOrdering Facility: [facility] Address: [address] [place] [address] Performed By: #### 5 8410-2, 47407-9 ####[facility] LABORATORYCLIA [id number] [address] MCV (RBC) [Entitic vol] 89.7 fL Normal 80.0-100.0 [facility] Comment on above: Order Comment: Speci men Type: BLOOD SPECIMENOrdering Facility: [facility] Address: [address] [place] [address] Performed By: #### 5 8410-2, 79965-0 ####[facility] LABORATORYCLIA [id number] [address] Nucleated RBC (Bld) [#/Vol] 10*3/uL Normal <0.01 [facility] Comment on above: Order Comment: Speci men Type: BLOOD SPECIMENOrdering Facility: [facility] Address: [address] [place] [address] Performed By: #### 5 8410-2, 51429-1 ####[facility] LABORATORYCLIA [id number] [address] Platelet mean volume (Bld) [Entitic vol] 8.9 fL Low 9.0-12.7 [facility] Comment on above: Order Comment: Speci men Type: BLOOD SPECIMENOrdering Facility: [facility] Address: [address] [place] [address] Performed By: #### 5 8410-2, 88441-5 ####[facility] LABORATORYCLIA [id number] [place] [address] [place] Platelets (Bld) [#/Vol] 204 10*3/uL Normal 150-400 [facility] Comment on above: Order Comment: Speci men Type: BLOOD SPECIMENOrdering Facility: [facility] Address: [address] [place] [address] [place] [id number] Performed By: #### 5 8410-2, 32394-4 ####[facility] LABORATORYCLIA [id number] [place] [address] [place] RBC (Bld) [#/Vol] 2.73 10*6/uL Low 4.20-6.00 [facility] Comment on above: Order Comment: Speci men Type: BLOOD SPECIMENOrdering Facility: [facility] Address: [address] [place] [address] Performed By: #### 5 8410-2, 12758-6 ####[facility] LABORATORYCLIA [id number] [place] [address] [place] WBC (Bld) [#/Vol] 3.39 10*3/uL Low 3.70-11.00 [facility] Comment on above: Order Comment: Speci men Type: BLOOD SPECIMENOrdering Facility: [facility] Address: [address] [place], [place] [address] Performed By: #### 5 8410-2, 76199-4 ####[facility] LABORATORYCLIA [id number] [place] [address] [place] CNPNon 01-08-2025 CNPN Normal [facility] CNPTOUTREACHon 01-08-2025 CNPTOUTREACH Normal [facility] CONSULTon 01-08-2025 CONSULT Normal [facility] CONSULT PROGon 01-08-2025 CONSULT PROG Normal [facility] CONSULT PROG Normal [facility] Haptoglob SerPl-mCncon 01-08 Haptoglobin [Mass/Vol] 59 mg/dL Normal 31-238 [facility] Comment on above: Order Comment: Speci men Type: BLOOD SPECIMENOrdering Facility: [facility] Address: [address] [place] [address] Performed By: #### 4 542-7 ####[facility] LABCLIA [id number] [place] [address] [place] Hepatic function 2000 panelo n 01-08-2025 Albumin [Mass/Vol] 2.6 g/dL Low 3.9-4.9 [facility] Comment on above: Order Comment: Speci men Type: BLOOD SPECIMENOrdering Facility: [facility] Address: [address] [place] [address] Performed By: #### 2 4325-3, 53720-1 ####[facility] LABORATORYCLIA [id number] [address] STATES OF [facility] ALP [Catalytic activity/Vol] 76 U/L Normal 38-113 [facility] Comment on above: Order Comment: Speci men Type: BLOOD SPECIMENOrdering Facility: [facility] Address: [address] [place] [address] Performed By: #### 2 4325-3, 83071-7 ####[facility] LABORATORYCLIA [id number] [address] [place] ALT [Catalytic activity/Vol] 17 U/L Normal 10-54 [facility] Comment on above: Order Comment: Speci men Type: BLOOD SPECIMENOrdering Facility: [facility] Address: [address] [place] [address] Performed By: #### 2 4325-3, 41774-7 ####[facility] LABORATORYCLIA [id number] [address] AST [Catalytic activity/Vol] 12 U/L Low 14-40 [facility] Comment on above: Order Comment: Speci men Type: BLOOD SPECIMENOrdering Facility: [facility] Address: [address] [place] [address] Performed By: #### 2 4325-3, 77817-9 ####[facility] LABORATORYCLIA [id number] [place] [address] [place] Bilirubin [Mass/Vol] 0.7 mg/dL Normal 0.2-1.3 [facility] Comment on above: Order Comment: Speci men Type: BLOOD SPECIMENOrdering Facility: [facility] Address: [address] [place] [address] Performed By: #### 2 4325-3, 65945-7 ####[facility] LABORATORYCLIA [id number] [place] [address] [place] Bilirubin.conjugated [Mass/Vol] 0.3 mg/dL High <0.3 [facility] Comment on above: Order Comment: Speci men Type: BLOOD SPECIMENOrdering Facility: [facility] Address: [address] [place] [address] Performed By: #### 2 4325-3, 23406-7 ####[facility] LABORATORYCLIA [id number] [place] [address] [place] Protein [Mass/Vol] 4.8 g/dL Low 6.3-8.0 [facility] Comment on above: Order Comment: Speci men Type: BLOOD SPECIMENOrdering Facility: [facility] Address: [address] [place] [address] Performed By: #### 2 4325-3, 11579-7 ####[facility] LABORATORYCLIA [id number] [place] [address] [place] LDH SerPl-cCncon 01-08-2025 LDH [Catalytic activity/Vol] 325 U/L High 135-225 [facility] Comment on above: Order Comment: Speci men Type: BLOOD SPECIMENOrdering Facility: [facility] Address: [address] [place] [address] Performed By: #### 2 532-0 ####[facility] LABCLIA [id number] [place] [address] [place] Magnesium SerPl-mCncon 01-08 Magnesium [Mass/Vol] 2.2 mg/dL Normal 1.7-2.3 [facility] Comment on above: Order Comment: Speci men Type: BLOOD SPECIMENOrdering Facility: [facility] Address: [address] [place] [address] Performed By: #### 2 777-1, 02430-0, 43819-8 ####[facility]ATORYCLIA [id number] [place] [address] [place] Phosphate SerPl-mCncon 01-08 Phosphate [Mass/Vol] 2.3 mg/dL Low 2.7-4.8 [facility] Comment on above: Order Comment: Speci men Type: BLOOD SPECIMENOrdering Facility: [facility] Address: [address] [place] [address] Performed By: #### 2 777-1, 11666-5, ####[facility] [id number] [place] [address] [place] Procalcitonin SerPl-mCncon 0 01-08-2025 Procalcitonin [Mass/Vol] 0.22 ng/mL High <0.09 [facility] Comment on above: Order Comment: Speci men Type: BLOOD SPECIMENOrdering Facility: [facility] Address: [address] [place] [address] Result Comment: For a guided interpretation of test results, please visit the Change in Procalcitonin Calculator, [email or web address]. Performed By: #### 2 4325-3, 41994-9 ####[facility]ORY[facility] [id number] [place] [address] [place] Retics #on 01-08-2025 Reticulocytes (Bld) [#/Vol] 0.31339 10*3/uL Normal 0.018-0.10 0 [facility] Comment on above: Order Comment: Speci men Type: BLOOD SPECIMENOrdering Facility: [facility] Address: [address] [place] [address] Performed By: #### 5 8410-2, 29890-9 ####[facility]ORATORYCLIA [id number] [place] [address] [place] Reticulocytes (Bld) [#/Vol]o n 01-08-2025 Reticulocytes/100 RBC (Bld) 3.1 % High 0.4-2.0 [facility] Comment on above: Order Comment: Speci men Type: BLOOD SPECIMENOrdering Facility: [facility] Address: [address] [place] [address] Performed By: #### 5 8410-2, 78748-6 ####[facility]ATORYCLIA [id number] [place] [address] [place] THERAPY NTon 01-08-2025 THERAPY NT [facility] THERAPY NT [facility] ABO AND RH ONLYon 01-07-2025 Rh Nom (d) Invalid result [facility] Comment on above: Order Comment: Speci [facility] Type: BLOOD SPECIMENOrdering Facility: [facility] Address: [address] [place] [address] Performed By: #### D AGT ####[facility] [id number] [address] [place]#### [place], [id number] ####[facility] BLOOD BANKCLIA [id number] [address]#### TSCR ####[facility] BLOOD BANKCLIA [id number] [address] BLOOD BANKIA [id number] [address] ANTIBODY WORKUP(2)on 025 ADDITIONAL SPECIMENS Received in [facility] Comment on above: Order Comment: Speci men Type: BLOOD SPECIMENOrdering Facility: [facility] Address: [address] [place] [address] Performed By: #### R CGP ####[facility] [id number] [place]#### [id number] ####[facility] [id number] [address] [place] B-HYDROXYBUTYRATEon 01-08-20 25 Beta hydroxybutyrate [Moles/Vol] 0.20 mmol/L Normal <0.28 [facility] Comment on above: Order Comment: Speci men Type: BLOOD SPECIMENOrdering Facility: [facility] Address: [address] [place] [address] Performed By: #### B HB, [id number], 10315-9 ####[facility]ORYCLIA [id number] [address] B2 MICROGLOBULINon Qhzf-0-Ypabhrevazjua [Mass/Vol] 12.5 ug/mL High NINF - 3.1 mg/L [facility] Comment on above: Beta-2 Microglobulin test is performed using the [employer] immunoturbidimetric method. Results obtained with different methods or kits cannot be used interchangeably. BLOOD BANK COMMENTon 025 BLOOD BANK COMMENT See Comment Normal [facility] Comment on above: Order Comment: Speci men Type: BLOOD SPECIMENOrdering Facility: [facility] Address: [address] [place] [address] Result Comment: anti body ID not required. Last Antibody ID performed on 12/23/24. Performed By: #### D AGT ####[facility]ANKCLIA [id number] [address]#### ADRIANH, [id number] ####[facility] BLOOD BANKCLIA [id number] [address]#### TSCR ####[facility] BLOOD BANKCLIA [id number] [address] BLOOD BANKCLIA [id number] [address] Basic metabolic 2000 panelon 01-07-2025 Anion gap [Moles/Vol] 9 mmol/L Normal - [facility] Comment on above: Order Comment: Speci men Type: BLOOD SPECIMENOrdering Facility: [facility] Address: [address] [place] [address] Performed By: #### 2 4321-2 ####[facility]ATORYCLIA [id number] [place] [address] [place] Calcium [Mass/Vol] 7.8 mg/dL Low 8.5-10.2 [facility] Comment on above: Order Comment: Speci men Type: BLOOD SPECIMENOrdering Facility: [facility] Address: [address] [place] [address] Performed By: #### 2 4321-2 ####[facility] LABORATORYCLIA [id number] [place] [address] [place] Chloride [Moles/Vol] 108 mmol/L High 98-107 [facility] Comment on above: Order Comment: Speci men Type: BLOOD SPECIMENOrdering Facility: [facility] Address: [address] [place] [address] Performed By: #### 2 4321-2 ####[facility] LABORATORYCLIA [id number] [place] [address] [place] CO2 [Moles/Vol] 23 mmol/L Normal 22-30 [facility] Comment on above: Order Comment: Speci men Type: BLOOD SPECIMENOrdering Facility: [facility] Address: [address] [place] [address] Performed By: #### 2 4321-2 ####[facility]ORATORYCLIA [id number] [place] [address] [place] Creatinine [Mass/Vol] 1.34 mg/dL High 0.73-1.22 [facility] Comment on above: Order Comment: Speci men Type: BLOOD SPECIMENOrdering Facility: [facility] Address: [address] [place] [address] Performed By: #### 2 4321-2 ####[facility]ORATORYCLIA [id number] [place] [address] [place] eGFRcr SerPlBld CKD-EPI 2020 55 mL/min/1.73m??? Low >=60 [facility] Comment on above: Order Comment: Speci men Type: BLOOD SPECIMENOrdering Facility: [facility] Address: [address] [place] [address] Result Comment: Nancy mated Glomerular Filtration Rate (eGFR) is calculated using the 2020 CKD-EPI creatinine equation. This equation utilizes serum creatinine, sex, and age as parameters. The creatinine assay has traceable calibration to isotope dilution-mass spectrometry. Refer to KDIGO guidelines for clinical interpretation. In patients with unstable renal function, e.g. those with acute kidney injury, the eGFR may not accurately reflect actual GFR. Performed By: #### 2 4321-2 ####[facility]ORATORYCLIA [id number] [place] [id number] [place] Glucose [Mass/Vol] 135 mg/dL High 74-99 [facility] Comment on above: Order Comment: Demarco harris Type: BLOOD SPECIMENOrdering Facility: [facility] Address: [address] [place] [address] Result Comment: The [place] Diabetes Association (ADA) provides guidance for cutoff values for fasting glucose and random glucose. The ADA defines fasting as no caloric intake for at least 8 hours. Fasting plasma glucose results between 100 to 125 mg/dL indicate increased risk for diabetes (prediabetes).Fasting plasma glucose results greater than or equal to 126 mg/dL meet the criteria for diagnosis of diabetes. In the absence of unequivocal hyperglycemia, results should be confirmed by repeat testing. In a patient with classic symptoms of hyperglycemia or hyperglycemic crisis, random plasma glucose results greater than or equal to 200 mg/dL meet the criteria for diagnosis of diabetes.Reference: Standards of Medical Care in Diabetes 2016, [place] [employer]. Diabetes Care. 2016.39(Suppl 1). Performed By: #### 2 4321-2 ####[facility]ORATORYCLIA [id number] [place] [id number] [place] Potassium [Moles/Vol] 3.9 mmol/L Normal 3.7-5.1 [facility] Comment on above: Order Comment: Demarco harris Type: BLOOD SPECIMENOrdering Facility: [facility] Address: [address] [place] [address] Performed By: #### 2 4321-2 ####[facility] LABORATORYCLIA [id number] [place] [address] [place] Sodium [Moles/Vol] 140 mmol/L Normal 136-144 [facility] Comment on above: Order Comment: Demarco harris Type: BLOOD SPECIMENOrdering Facility: [facility] Address: [address] [place] [address] Performed By: #### 2 4321-2 ####[facility] LABORATORYCLIA [id number] [place] [address] [place] Urea nitrogen [Mass/Vol] 28 mg/dL High 9-24 [facility] Comment on above: Order Comment: Speci men Type: BLOOD SPECIMENOrdering Facility: [facility] Address: [address] [place] [address] Performed By: #### 2 4321-2 ####[facility] LABORATORYCLIA [id number] [place] [address] [place] Anion gap [Moles/Vol] 12 mmol/L Normal 8-15 [facility] Comment on above: Order Comment: Speci men Type: BLOOD SPECIMENOrdering Facility: [facility] Address: [address] [place] [address] Performed By: #### 1 9123-9, 15759-9, 2776- ####[facility]ORATORYCLIA [id number] [place] [address] [place] Calcium [Mass/Vol] 7.9 mg/dL Low 8.5-10.2 [facility] Comment on above: Order Comment: Speci men Type: BLOOD SPECIMENOrdering Facility: [facility] Address: [address] [place] [address] Performed By: #### 1 9123-9, 67990-1, 2776- ####[facility]ORATORYCLIA [id number] [place] [id number] [place] Chloride [Moles/Vol] 110 mmol/L High 98-107 [facility] Comment on above: Order Comment: Speci men Type: BLOOD SPECIMENOrdering Facility: [facility] Address: [address] [place] [address] Performed By: #### 1 9123-9, 20828-5, 2776- ####[facility] LABORATORYCLIA [id number] [place] [address] [place] CO2 [Moles/Vol] 21 mmol/L Low 22-30 [facility] Comment on above: Order Comment: Demarco harris Type: BLOOD SPECIMENOrdering Facility: [facility] Address: [address] [place] [address] Performed By: #### 1 9123-9, 34285-8, 2776-06 ####[facility]ORATORYCLIA [id number] [place] [address] [place] Creatinine [Mass/Vol] 1.51 mg/dL High 0.73-1.22 [facility] Comment on above: Order Comment: Demarco harris Type: BLOOD SPECIMENOrdering Facility: [facility] Address: [address] [place] [address] Performed By: #### 1 9123-9, 80892-4, 2776-06 ####[facility]ORATORYCLIA [id number] [place] [address] [place] eGFRcr SerPlBld CKD-EPI 2020 48 mL/min/1.73m??? Low >=60 [facility] Comment on above: Order Comment: Demarco harris Type: BLOOD SPECIMENOrdering Facility: [facility] Address: [address] [place] [address] Result Comment: Nancy mated Glomerular Filtration Rate (eGFR) is calculated using the 2020 CKD-EPI creatinine equation. This equation utilizes serum creatinine, sex, and age as parameters. The creatinine assay has traceable calibration to isotope dilution-mass spectrometry. Refer to KDIGO guidelines for clinical interpretation. In patients with unstable renal function, e.g. those with acute kidney injury, the eGFR may not accurately reflect actual GFR. Performed By: #### 1 9123-9, 38750-0, 2776-06 ####[facility]ORATORYCLIA [id number] [place] [address] [place] Glucose [Mass/Vol] 157 mg/dL High 74-99 [facility] Comment on above: Order Comment: Demarco kimberly Type: BLOOD SPECIMENOrdering Facility: [facility] Address: [address] [place] [address] Result Comment: The [place] Diabetes Association (ADA) provides guidance for cutoff values for fasting glucose and random glucose. The ADA defines fasting as no caloric intake for at least 8 hours. Fasting plasma glucose results between 100 to 125 mg/dL indicate increased risk for diabetes (prediabetes).Fasting plasma glucose results greater than or equal to 126 mg/dL meet the criteria for diagnosis of diabetes. In the absence of unequivocal hyperglycemia, results should be confirmed by repeat testing. In a patient with classic symptoms of hyperglycemia or hyperglycemic crisis, random plasma glucose results greater than or equal to 200 mg/dL meet the criteria for diagnosis of diabetes.Reference: Standards of Medical Care in Diabetes 2016, [place] [employer]. Diabetes Care. 2016.39(Suppl 1). Performed By: #### 1 9123-9, 35142-3, 2776- ####[facility]ORATORYCLIA [id number] [place] [address] [place] Potassium [Moles/Vol] 4.3 mmol/L Normal 3.7-5.1 [facility] Comment on above: Order Comment: Demarco harris Type: BLOOD SPECIMENOrdering Facility: [facility] Address: [address] [place] [address] Performed By: #### 1 91239, 24063-7, 2776-06 ####[facility]ORATORYCLIA [id number] [place] [address] [place] Sodium [Moles/Vol] 143 mmol/L Normal 136-144 [facility] Comment on above: Order Comment: Demarco harris Type: BLOOD SPECIMENOrdering Facility: [facility] Address: [address] [place] [address] Performed By: #### 1 9123-9, 73007-1, 2776-06 ####[facility]ORATORYCLIA [id number] [place] [address] [place] Urea nitrogen [Mass/Vol] 33 mg/dL High 9-24 [facility] Comment on above: Order Comment: Demarco harris Type: BLOOD SPECIMENOrdering Facility: [facility] Address: [address] [place] [address] Performed By: #### 1 9123-9, 02492-7, 2776-06 ####[facility]ORATORYCLIA [id number] [place] [address] [place] Anion gap [Moles/Vol] 12 mmol/L Normal 8-15 [facility] Comment on above: Order Comment: Speci men Type: BLOOD SPECIMENOrdering Facility: [facility] Address: [address] [place] [address] Performed By: #### 2 4321-2, 2776-06, ####[facility] LABORATORYCLIA [id number] [place] [address] [place] Calcium [Mass/Vol] 7.7 mg/dL Low 8.5-10.2 [facility] Comment on above: Order Comment: Speci men Type: BLOOD SPECIMENOrdering Facility: [facility] Address: [address] [place] [address] Performed By: #### 2 4321-2, 2776-06, ####[facility]ORATORYCLIA [id number] [place] [address] [place] Chloride [Moles/Vol] 110 mmol/L High 98-107 [facility] Comment on above: Order Comment: Speci men Type: BLOOD SPECIMENOrdering Facility: [facility] Address: [facility] [place] [address] Performed By: #### 2 4321-2, 2776-06, ####[facility] LABORATORYCLIA [id number] [place] [address] [place] CO2 [Moles/Vol] 20 mmol/L Low 22-30 [facility] Comment on above: Order Comment: Speci men Type: BLOOD SPECIMENOrdering Facility: [facility] Address: [address] [place] [address] Performed By: #### 2 4321-2, 2776-06, ####[facility] LABORATORYCLIA [id number] [place] [address] [place] Creatinine [Mass/Vol] 1.53 mg/dL High 0.73-1.22 [facility] Comment on above: Order Comment: Speci men Type: BLOOD SPECIMENOrdering Facility: [facility] Address: [address] [place] [address] Performed By: #### 2 4321-2, 2776-06, ####[facility] LABORATORYCLIA [id number] [place] [address] [place] eGFRcr SerPlBld CKD-EPI 2020 47 mL/min/1.73m??? Low >=60 [facility] Comment on above: Order Comment: Pemajoao harris Type: BLOOD SPECIMENOrdering Facility: [facility] Address: [address] [place] [address] Result Comment: Nancy mated Glomerular Filtration Rate (eGFR) is calculated using the 2020 CKD-EPI creatinine equation. This equation utilizes serum creatinine, sex, and age as parameters. The creatinine assay has traceable calibration to isotope dilution-mass spectrometry. Refer to KDIGO guidelines for clinical interpretation. In patients with unstable renal function, e.g. those with acute kidney injury, the eGFR may not accurately reflect actual GFR. Performed By: #### 2 4321-2, 2777-1, ####[facility]ORATORYCLIA [id number] [place] [id number] [place] Glucose [Mass/Vol] 249 mg/dL High 74-99 [facility] Comment on above: Order Comment: Demarco harris Type: BLOOD SPECIMENOrdering Facility: [facility] Address: [address] [place] [address] Result Comment: The [place] Diabetes Association (ADA) provides guidance for cutoff values for fasting glucose and random glucose. The ADA defines fasting as no caloric intake for at least 8 hours. Fasting plasma glucose results between 100 to 125 mg/dL indicate increased risk for diabetes (prediabetes).Fasting plasma glucose results greater than or equal to 126 mg/dL meet the criteria for diagnosis of diabetes. In the absence of unequivocal hyperglycemia, results should be confirmed by repeat testing. In a patient with classic symptoms of hyperglycemia or hyperglycemic crisis, random plasma glucose results greater than or equal to 200 mg/dL meet the criteria for diagnosis of diabetes.Reference: Standards of Medical Care in Diabetes 2016, [place] [employer]. Diabetes Care. 2016.39(Suppl 1). Performed By: #### 2 4321-2, 2777-1, ####[facility]ORATORYCLIA [id number] [place] [address] [place] Potassium [Moles/Vol] 4.2 mmol/L Normal 3.7-5.1 [facility] Comment on above: Order Comment: Speci men Type: BLOOD SPECIMENOrdering Facility: [facility] Address: [address] [place] [address] [place] [id number] Performed By: #### 2 4321-2, 2776-06, ####[facility] LABORATORYCLIA [id number] [place] [address] [place] Sodium [Moles/Vol] 142 mmol/L Normal 136-144 [facility] Comment on above: Order Comment: Speci men Type: BLOOD SPECIMENOrdering Facility: [facility] Address: [address] [place] [address] Performed By: #### 2 4321-2, 2776-06, ####[facility] LABORATORYCLIA [id number] [place] [address] [place] Urea nitrogen [Mass/Vol] 34 mg/dL High 9-24 [facility] Comment on above: Order Comment: Speci men Type: BLOOD SPECIMENOrdering Facility: [facility] Address: [address] [place] [address] Performed By: #### 2 4321-2, 2776-06, ####[facility] LABORATORYCLIA [id number] [place] [address] [place] Anion gap [Moles/Vol] 16 mmol/L High 8-15 [facility] Comment on above: Order Comment: Speci men Type: BLOOD SPECIMENOrdering Facility: [facility] Address: [address] [place] [address] Performed By: #### Alireza HB, [id number], 80148-1 ####[facility] LABORATORYCLIA [id number] [place] [address] [place] Calcium [Mass/Vol] 7.8 mg/dL Low 8.5-10.2 [facility] Comment on above: Order Comment: Speci men Type: BLOOD SPECIMENOrdering Facility: [facility] Address: [address] [place] [address] Performed By: #### Alireza HB, [id number], 48930-4 ####[facility] LABORATORYCLIA [id number] [place] [address] [place] Chloride [Moles/Vol] 104 mmol/L Normal 98-107 [facility] Comment on above: Order Comment: Demarco harris Type: BLOOD SPECIMENOrdering Facility: [facility] Address: [address] [place] [address] Performed By: #### B HB, [id number], 25911-7 ####[facility] LABORATORYCLIA [id number] [place] [address] [place] CO2 [Moles/Vol] 18 mmol/L Low 22-30 [facility] Comment on above: Order Comment: Demarco harris Type: BLOOD SPECIMENOrdering Facility: [facility] Address: [address] [place] [address] Performed By: #### Alireza HB, [id number], 86744-3 ####[facility]ORATORYCLIA [id number] [place] [address] [place] Creatinine [Mass/Vol] 1.72 mg/dL High 0.73-1.22 [facility] Comment on above: Order Comment: Demarco harris Type: BLOOD SPECIMENOrdering Facility: [facility] Address: [address] [place] [address] Performed By: #### Alireza HB, [id number], 31276-1 ####[facility]ORATORYCLIA [id number] [address] [place] eGFRcr SerPlBld CKD-EPI 2020 41 mL/min/1.73m??? Low >=60 [facility] Comment on above: Order Comment: Demarco harris Type: BLOOD SPECIMENOrdering Facility: [facility] Address: [address] [place] [address] Result Comment: Nancy mated Glomerular Filtration Rate (eGFR) is calculated using the 2020 CKD-EPI creatinine equation. This equation utilizes serum creatinine, sex, and age as parameters. The creatinine assay has traceable calibration to isotope dilution-mass spectrometry. Refer to KDIGO guidelines for clinical interpretation. In patients with unstable renal function, e.g. those with acute kidney injury, the eGFR may not accurately reflect actual GFR. Performed By: #### B HB, [id number], 56002-2 ####[facility] LABORATORYCLIA [id number] [place] [address] [place] Glucose [Mass/Vol] 585 mg/dL High 74-99 [facility] Comment on above: Order Comment: Demarco harris Type: BLOOD SPECIMENOrdering Facility: [facility] Address: [address] [place] [address] Result Comment: The [place] Diabetes Association (ADA) provides guidance for cutoff values for fasting glucose and random glucose. The ADA defines fasting as no caloric intake for at least 8 hours. Fasting plasma glucose results between 100 to 125 mg/dL indicate increased risk for diabetes (prediabetes).Fasting plasma glucose results greater than or equal to 126 mg/dL meet the criteria for diagnosis of diabetes. In the absence of unequivocal hyperglycemia, results should be confirmed by repeat testing. In a patient with classic symptoms of hyperglycemia or hyperglycemic crisis, random plasma glucose results greater than or equal to 200 mg/dL meet the criteria for diagnosis of diabetes.Reference: Standards of Medical Care in Diabetes 2016, [place] [employer]. Diabetes Care. 2016.39(Suppl 1). Performed By: #### B HB, [id number], 67282-7 ####[facility] LABORATORYCLIA [id number] [place] [address] [place] Potassium [Moles/Vol] 4.6 mmol/L Normal 3.7-5.1 [facility] Comment on above: Order Comment: Demarco harris Type: BLOOD SPECIMENOrdering Facility: [facility] Address: [address] [place] [address] Performed By: #### B HB, [id number], 92682-2 ####[facility] LABORATORYCLIA [id number] [place] [id number] [place] Sodium [Moles/Vol] 138 mmol/L Normal 136-144 [facility] Comment on above: Order Comment: Demarco harris Type: BLOOD SPECIMENOrdering Facility: [facility] Address: [address] [place] [address] Performed By: #### B HB, YPB3003-2 ####[facility] LABORATORYCLIA [id number] [place] [address] [place] Urea nitrogen [Mass/Vol] 37 mg/dL High 9-24 [facility] Comment on above: Order Comment: Speci men Type: BLOOD SPECIMENOrdering Facility: [facility] Address: [address] [place] [address] Performed By: #### B HB, [id number], 04118-5 ####[facility] LABORATORYCLIA [id number] [place] [address] [place] Pkfq-9-Hprnmckrhnjsh [Mass/V ol]on 01-07-2025 Interpretation and review of laboratory results Abnormal [facility] CASE MGT INIT ASSESon 2024 [facility] CBC panel Auto (Bld)on 01-07 Erythrocyte distribution width (RBC) [Ratio] 15.5 % High 11.5-15.0 [facility] Comment on above: Order Comment: Speci men Type: BLOOD SPECIMENOrdering Facility: [facility] Address: [address] [place] [address] Performed By: #### 5 8410-2 ####[facility] LABORATORYCLIA [id number] [place] [address] [place] Hematocrit (Bld) [Volume fraction] 23.5 % Low 39.0-51.0 [facility] Comment on above: Order Comment: Speci men Type: BLOOD SPECIMENOrdering Facility: [facility] Address: [address] [place] [address] Performed By: #### 5 8410-2 ####[facility] LABORATORYCLIA [id number] [place] [address] [place] Hemoglobin (Bld) [Mass/Vol] 7.6 g/dL Low 13.0-17.0 [facility] Comment on above: Order Comment: Speci men Type: BLOOD SPECIMENOrdering Facility: [facility] Address: [address] [place] [address] Performed By: #### 5 8410-2 ####[facility] LABORATORYCLIA [id number] [place] [address] [place] MCH (RBC) [Entitic mass] 29.0 pg Normal 26.0-34.0 [facility] Comment on above: Order Comment: Speci men Type: BLOOD SPECIMENOrdering Facility: [facility] Address: [address] [place] [address] Performed By: #### 5 8410-2 ####[facility] LABORATORYCLIA [id number] [address] [place] [facility] MCHC (RBC) [Mass/Vol] 32.3 g/dL Normal 30.5-36.0 [facility] Comment on above: Order Comment: Speci men Type: BLOOD SPECIMENOrdering Facility: [facility] Address: [address] [place] [address] Performed By: #### 5 8410-2 ####[facility] LABORATORYCLIA [id number] [address] MCV (RBC) [Entitic vol] 89.7 fL Normal 80.0-100.0 [facility] Comment on above: Order Comment: Speci men Type: BLOOD SPECIMENOrdering Facility: [facility] Address: [address] [place] [address] Performed By: #### 5 8410-2 ####[facility] [place] LABORATORYCLIA [id number] [address] Nucleated RBC (Bld) [#/Vol] 10*3/uL Normal <0.01 [facility] Comment on above: Order Comment: Speci men Type: BLOOD SPECIMENOrdering Facility: [facility] Address: [address] [place] [address] Performed By: #### 5 8410-2 ####H[facility]ERA LABORATORYCLIA [id number] [address] [place] Platelet mean volume (Bld) [Entitic vol] 9.2 fL Normal 9.0-12.7 [facility] Comment on above: Order Comment: Speci men Type: BLOOD SPECIMENOrdering Facility: [facility] Address: [address] [place] [address] Performed By: #### 5 8410-2 ####H[facility] LABORATORYCLIA [id number] [place] [address] [place] Platelets (Bld) [#/Vol] 192 10*3/uL Normal 150-400 [facility] Comment on above: Order Comment: Speci men Type: BLOOD SPECIMENOrdering Facility: [facility] Address: [address] [facility] [place] [address] Performed By: #### 5 8410-2 ####H[facility] LABORATORYCLIA [id number] [place] [address] [place] RBC (Bld) [#/Vol] 2.62 10*6/uL Low 4.20-6.00 [facility] Comment on above: Order Comment: Speci men Type: BLOOD SPECIMENOrdering Facility: [facility] Address: [address] [place] [address] Performed By: #### 5 8410-2 ####[facility] LABORATORYCLIA [id number] [address] [place] WBC (Bld) [#/Vol] 3.64 10*3/uL Low 3.70-11.00 [facility] Comment on above: Order Comment: Speci men Type: BLOOD SPECIMENOrdering Facility: [facility] Address: [address] [place] [address] Performed By: #### 5 8410-2 ####HERRERA LABORATORYCLIA [id number] [address] [place] Erythrocyte distribution width (RBC) [Ratio] 16.2 % High 11.5-15.0 [facility] Comment on above: Order Comment: Speci men Type: BLOOD SPECIMENOrdering Facility: [facility] Address: [address] [place] [address] [place] [address] Performed By: #### 5 8410-2 ####HERRERA LABORATORYCLIA [id number] [address] [place] Hematocrit (Bld) [Volume fraction] 20.9 % Low 39.0-51.0 [facility] Comment on above: Order Comment: Speci men Type: BLOOD SPECIMENOrdering Facility: [facility] Address: [address] [place] [address] Performed By: #### 5 8410-2 ####[facility] LABORATORYCLIA [id number] [address] [place] Hemoglobin (Bld) [Mass/Vol] 6.7 g/dL Low 13.0-17.0 [facility] Comment on above: Order Comment: Speci men Type: BLOOD SPECIMENOrdering Facility: [facility] Address: [address] [place] [address] Performed By: #### 5 8410-2 ####HERRER[facility] LABORATORYCLIA [id number] [address] STATES [facility] MCH (RBC) [Entitic mass] 28.8 pg Normal 26.0-34.0 [facility] Comment on above: Order Comment: Speci men Type: BLOOD SPECIMENOrdering Facility: [facility] Address: [address] [place] [address] Performed By: #### 5 8410-2 ####H[facility] LABORATORYCLIA [id number] [address] MCHC (RBC) [Mass/Vol] 32.1 g/dL Normal 30.5-36.0 [facility] Comment on above: Order Comment: Speci men Type: BLOOD SPECIMENOrdering Facility: [facility] Address: [address] [place] [address] Performed By: #### 5 8410-2 ####H[facility]ER[facility] LABORATORYCLIA [id number] [address] MCV (RBC) [Entitic vol] 89.7 fL Normal 80.0-100.0 [facility] Comment on above: Order Comment: Speci men Type: BLOOD SPECIMENOrdering Facility: [facility] Address: [address] [place] [address] Performed By: #### 5 8410-2 ####HERR[facility] LABORATORYCLIA [id number] [address] Nucleated RBC (Bld) [#/Vol] 10*3/uL Normal <0.01 [facility] Comment on above: Order Comment: Speci men Type: BLOOD SPECIMENOrdering Facility: [facility] Address: [address] [place] [address] Performed By: #### 5 8410-2 ####HERRERA LABORATORYCLIA [id number] [place] [address] [place] Platelet mean volume (Bld) [Entitic vol] 9.1 fL Normal 9.0-12.7 [facility] Comment on above: Order Comment: Speci men Type: BLOOD SPECIMENOrdering Facility: [facility] Address: [address] [place] [address] Performed By: #### 5 8410-2 ####[facility] LABORATORYCLIA [id number] [place] [address] [place] Platelets (Bld) [#/Vol] 203 10*3/uL Normal 150-400 [facility] Comment on above: Order Comment: Speci men Type: BLOOD SPECIMENOrdering Facility: [facility] Address: [address] [place] [address] Performed By: #### 5 8410-2 ####[facility] LABORATORYCLIA [id number] [place] [address] [place] RBC (Bld) [#/Vol] 2.33 10*6/uL Low 4.20-6.00 [facility] Comment on above: Order Comment: Speci men Type: BLOOD SPECIMENOrdering Facility: [facility] Address: [address] [place] [address] Performed By: #### 5 8410-2 ####[facility] LABORATORYCLIA [id number] [place] [id number] [place] WBC (Bld) [#/Vol] 3.60 10*3/uL Low 3.70-11.00 [facility] Comment on above: Order Comment: Speci men Type: BLOOD SPECIMENOrdering Facility: [facility] Address: [address] [place] [address] Performed By: #### 5 8410-2 ####[facility] LABORATORYCLIA [id number] [place] [id number] [facility] [place] Erythrocyte distribution width (RBC) [Ratio] 16.1 % High 11.5-15.0 [facility] Comment on above: Order Comment: Speci men Type: BLOOD SPECIMENOrdering Facility: [facility] Address: [address] [place] [address] Performed By: #### 5 8410-2, 38596-7 ####H[facility] LABORATORYCLIA [id number] [address] Hematocrit (Bld) [Volume fraction] 21.8 % Low 39.0-51.0 [facility] Comment on above: Order Comment: Speci men Type: BLOOD SPECIMENOrdering Facility: [facility] Address: [address] [place] [address] Performed By: #### 5 8410-2, 20312-0 ####HERRERA LABORATORYCLIA [id number] [address] OF [facility] Hemoglobin (Bld) [Mass/Vol] 6.9 g/dL Low 13.0-17.0 [facility] Comment on above: Order Comment: Speci men Type: BLOOD SPECIMENOrdering Facility: [facility] Address: [address] [place] [address] Performed By: #### 5 8410-2, 42440-4 ####HERR[facility] LABORATORYCLIA [id number] [address] MCH (RBC) [Entitic mass] 29.0 pg Normal 26.0-34.0 [facility] Comment on above: Order Comment: Speci men Type: BLOOD SPECIMENOrdering Facility: [facility] Address: [address] [place] [address] Performed By: #### 5 8410-2, 91686-9 ####[facility] LABORATORYCLIA [id number] [address] MCHC (RBC) [Mass/Vol] 31.7 g/dL Normal 30.5-36.0 [facility] Comment on above: Order Comment: Speci men Type: BLOOD SPECIMENOrdering Facility: [facility] Address: [address] [place] [address] Performed By: #### 5 8410-2, 29015-4 ####HERRER[facility] LABORATORYCLIA [id number] [place] [address] [place] MCV (RBC) [Entitic vol] 91.6 fL Normal 80.0-100.0 [facility] Comment on above: Order Comment: Speci men Type: BLOOD SPECIMENOrdering Facility: [facility] Address: [address] [place] [address] Performed By: #### 5 8410-2, 85981-3 ####H[facility] LABORATORYCLIA [id number] [place] [address] [place] Nucleated RBC (Bld) [#/Vol] 10*3/uL Normal <0.01 [facility] Comment on above: Order Comment: Speci men Type: BLOOD SPECIMENOrdering Facility: [facility] Address: [address] [place] [address] Performed By: #### 5 8410-2, 91447-4 ####H[facility] LABORATORYCLIA [id number] [place] [address] [place] Platelet mean volume (Bld) [Entitic vol] 9.0 fL Normal 9.0-12.7 [facility] Comment on above: Order Comment: Speci men Type: BLOOD SPECIMENOrdering Facility: [facility] Address: [address] [place] [address] Performed By: #### 5 8410-2, 15253-3 ####HERR[facility] LABORATORYCLIA [id number] [place] [address] [place] Platelets (Bld) [#/Vol] 217 10*3/uL Normal 150-400 [facility] Comment on above: Order Comment: Speci men Type: BLOOD SPECIMENOrdering Facility: [facility] Address: [address] [place] [address] Performed By: #### 5 8410-2, 10911-3 ####H[facility] LABORATORYCLIA [id number] [place] [address] [place] RBC (Bld) [#/Vol] 2.38 10*6/uL Low 4.20-6.00 [facility] Comment on above: Order Comment: Speci men Type: BLOOD SPECIMENOrdering Facility: [facility] Address: [address] [place] [address] Performed By: #### 5 8410-2, 87842-6 ####[facility] LABORATORYCLIA [id number] [address] [place] WBC (Bld) [#/Vol] 5.04 10*3/uL Normal 3.70-11.00 [facility] Comment on above: Order Comment: Speci men Type: BLOOD SPECIMENOrdering Facility: [facility] Address: [address] [place] [address] Performed By: #### 5 8410-2, 50923-7 ####HERRER[facility] LABORATORYCLIA [id number] [address] Erythrocyte distribution width (RBC) [Ratio] 16.1 % High 11.5-15.0 [facility] Comment on above: Order Comment: Speci men Type: BLOOD SPECIMENOrdering Facility: [facility] Address: [address] [place] [address] Performed By: #### 5 8410-2 ####HERR[facility] LABORATORYCLIA [id number] [address] Hematocrit (Bld) [Volume fraction] 22.1 % Low 39.0-51.0 [facility] Comment on above: Order Comment: Speci men Type: BLOOD SPECIMENOrdering Facility: [facility] Address: [address] [place] [address] Performed By: #### 5 8410-2 ####[facility] LABORATORYCLIA [id number] [address] [place] Hemoglobin (Bld) [Mass/Vol] 7.0 g/dL Low 13.0-17.0 [facility] Comment on above: Order Comment: Speci men Type: BLOOD SPECIMENOrdering Facility: [facility] Address: [address] [place] [address] Performed By: #### 5 8410-2 ####[facility] LABORATORYCLIA [id number] [address] MCH (RBC) [Entitic mass] 28.5 pg Normal 26.0-34.0 [facility] Comment on above: Order Comment: Speci men Type: BLOOD SPECIMENOrdering Facility: [facility] Address: [address] [place] [address] Performed By: #### 5 8410-2 ####[facility] LABORATORYCLIA [id number] [address] MCHC (RBC) [Mass/Vol] 31.7 g/dL Normal 30.5-36.0 [facility] Comment on above: Order Comment: Speci men Type: BLOOD SPECIMENOrdering Facility: [facility] Address: [address] [place] [address] Performed By: #### 5 8410-2 ####[facility] LABORATORYCLIA [id number] [address] MCV (RBC) [Entitic vol] 89.8 fL Normal 80.0-100.0 M [facility] Comment on above: Order Comment: Speci men Type: BLOOD SPECIMENOrdering Facility: [facility] Address: [address] [place] [address] Performed By: #### 5 8410-2 ####[facility] LABORATORYCLIA [id number] [address] Nucleated RBC (Bld) [#/Vol] 10*3/uL Normal <0.01 [facility] Comment on above: Order Comment: Speci men Type: BLOOD SPECIMENOrdering Facility: [facility] Address: [address] [place] [address] Performed By: #### 5 8410-2 ####[facility] LABORATORYCLIA [id number] [address] STATES [facility] Platelet mean volume (Bld) [Entitic vol] 9.0 fL Normal 9.0-12.7 [facility] Comment on above: Order Comment: Speci men Type: BLOOD SPECIMENOrdering Facility: [facility] Address: [address] [place] [address] Performed By: #### 5 8410-2 ####[facility] LABORATORYCLIA [id number] [address] [place] Platelets (Bld) [#/Vol] 223 10*3/uL Normal 150-400 [facility] Comment on above: Order Comment: Speci men Type: BLOOD SPECIMENOrdering Facility: [facility] Address: [address] [place] [address] Performed By: #### 5 8410-2 ####H[facility] LABORATORYCLIA [id number] [address] OF [facility] RBC (Bld) [#/Vol] 2.46 10*6/uL Low 4.20-6.00 [facility] Comment on above: Order Comment: Speci men Type: BLOOD SPECIMENOrdering Facility: [facility] Address: [address] [place] [address] Performed By: #### 5 8410-2 ####[facility] LABORATORYCLIA [id number] [address] WBC (Bld) [#/Vol] 5.06 10*3/uL Normal 3.70-11.00 [facility] Comment on above: Order Comment: Speci men Type: BLOOD SPECIMENOrdering Facility: [facility] Address: [address] [place] [address] Performed By: #### 5 8410-2 ####H[facility] LABORATORYCLIA [id number] [address] CONSULTon 01-07-2025 CONSULT [facility] CONSULT [facility] CONSULT PROGon 01-07-2025 CONSULT PROG [facility] MAE DIRECTon 01-07-2025 DAGT, ANTI-C3B,C3D Positive [facility] Comment on above: Order Comment: Speci men Type: BLOOD SPECIMENOrdering Facility: [facility] Address: [address] [place] [address] Performed By: #### D AGT ####[facility] [place] [facility]LOOD BANKCLIA [id number] [address]#### AB[place]H, [id number] ####[facility] BANKCLIA [id number] [address] [place]#### TSCR ####[facility] BANKCLIA [id number] [place], [place] [address] [place] [address] BLOOD BANKCLIA [id number] [place] [address] [place] DAGT, ANTI-IGG Positive [facility] Comment on above: Order Comment: Speci men Type: BLOOD SPECIMENOrdering Facility: [facility] Address: [address] [place] [address] Performed By: #### D AGT ####[facility] BLOOD BANKCLIA [id number] [place] [address] [place]#### [place] [id number] ####[facility] BLOOD BANKCLIA [id number] [place] [address] [place]#### TSCR ####[facility] BLOOD BANKCLIA [id number] [place], [place] [id number] [place] [address] BLOOD BANKCLIA [id number] [place] [address] [place] DAGT, POLYSPECIFIC AHG Positive Normal [facility] Comment on above: Order Comment: Speci men Type: BLOOD SPECIMENOrdering Facility: [facility] Address: [address] [place] [address] Performed By: #### D AGT ####[facility] [place] [facility]LOOD BANKCLIA [id number] [place] [address] [place]#### [place] [id number] ####[facility] BANKCLIA [id number] [place] [address] [place]#### TSCR ####[facility]LO[facility] BANKCLIA [id number] [place], [place] [address] [place] [address] STATES OF AMER[place]ASOU[place] BLOOD BANKCLIA [id number] E [address] [place] HIGH SENSITIVITY TROPONIN T (THIRD) 3 HRS AFTER INITIALon 01-07-2025 Troponin T.cardiac High sensitivity method [Mass/Vol] 37 ng/L High <12 [facility] Comment on above: Order Comment: Speci men Type: BLOOD SPECIMENOrdering Facility: [facility] Address: [address] [place] [address] Performed By: #### B HB, PRN4114, 30237-5 ####[facility] LABORATORYCLIA [id number] [place] [address] [place] LACTATE DEHYDROGENASEon 07- LDH [Catalytic activity/Vol] 371 U/L High 135 - 225 U/L [facility] LDH SerPl-cCncon 01-07-2025 LDH [Catalytic activity/Vol] 336 U/L High 135-225 [facility] Comment on above: Order Comment: Speci men Type: BLOOD SPECIMENOrdering Facility: [facility] Address: [address] [place] [address] Performed By: #### 2 532-0 ####[facility] LABCLIA [id number] [place] [address] [place] LDH [Catalytic activity/Vol] on 01-07-2025 Interpretation and review of laboratory results Abnormal [facility] Lactate (Bld) [Moles/Vol]on 01-07-2025 Lactate [Moles/Vol] 2.7 mmol/L High 0.5-2.2 [facility] Comment on above: Order Comment: Speci men Type: BLOOD SPECIMENOrdering Facility: [facility] Address: [address] [place] [address] Performed By: #### 3 2693-4 ####[facility] LABORATORYCLIA [id number] [place] [address] [place] Lactate [Moles/Vol] 5.7 mmol/L High 0.5-2.2 [facility] Comment on above: Order Comment: Speci men Type: BLOOD SPECIMENOrdering Facility: [facility] Address: [address] [place] [address] Performed By: #### 3 2693-4 ####[facility] LABORATORYCLIA [id number] [place] [address] [place] Magnesium SerPl-mCncon 01-07 Magnesium [Mass/Vol] 2.2 mg/dL Normal 1.7-2.3 [facility] Comment on above: Order Comment: Speci men Type: BLOOD SPECIMENOrdering Facility: [facility] Address: [address] [place], [place] [address] Performed By: #### 1 9123-9, 82199-8, 2776-06 ####[facility] LABORATORYCLIA [id number] [place] [address] [place] Magnesium [Mass/Vol] 1.9 mg/dL Normal 1.7-2.3 [facility] Comment on above: Order Comment: Speci men Type: BLOOD SPECIMENOrdering Facility: [facility] Address: [address] [place] [address] Performed By: #### 2 4321-2, 277-1, ####[facility] LABORATORYCLIA [id number] [place] [id number] [place] Phosphate SerPl-mCncon 01-07 Phosphate [Mass/Vol] 2.5 mg/dL Low 2.7-4.8 [facility] Comment on above: Order Comment: Speci men Type: BLOOD SPECIMENOrdering Facility: [facility] Address: [address] [place] [address] Performed By: #### 1 9123-9, 72126-7, 2776-06 ####[facility] LABORATORYCLIA [id number] [place] [address] [place] Phosphate [Mass/Vol] 2.7 mg/dL Normal 2.7-4.8 [facility] Comment on above: Order Comment: Speci men Type: BLOOD SPECIMENOrdering Facility: [facility] Address: [address] [place] [address] Performed By: #### 2 4321-2, 2776-1, ####[facility] LABORATORYCLIA [id number] [place] [address] [place] [facility] [place] RED CELL GENOTYPING PANELon 01-07-2025 RED CELL GENOTYPING PANEL View results in Scanned Documents link when available. Normal [facility] Comment on above: Order Comment: Speci men Type: BLOOD SPECIMENOrdering Facility: [facility] Address: [address] [place] [address] Performed By: #### R CGP ####[facility] [id number] [address] [place] [address] [place]#### [id number] ####[facility] [place] [facility] BANKIA [id number] [place] [address] [place] Retics #on 01-07-2025 Reticulocytes (Bld) [#/Vol] 0.35719 10*3/uL Normal 0.018-0.10 0 [facility] Comment on above: Order Comment: Speci men Type: BLOOD SPECIMENOrdering Facility: [facility] Address: [address] [place] [address] Performed By: #### 5 8410-2, 58536-0 ####[facility] LABORATORYIA [id number] [place] [address] [place] Reticulocytes (Bld) [#/Vol]o n 01-07-2025 Reticulocytes/100 RBC (Bld) 3.2 % High 0.4-2.0 [facility] Comment on above: Order Comment: Speci men Type: BLOOD SPECIMENOrdering Facility: [facility] Address: [address] [place] [address] Performed By: #### 5 8410-2, 78350-6 ####[facility] LABORATORYIA [id number] [place] [address] [place] [facility] [place] STAPHYLOCOCCUS AUREUS AND MR SA SCREEN, PCR, NASALon 01-07-2025 S. aureus and MRSA panel JOSE+probe (Nose) Not detected Normal Not Detected [facility] Comment on above: Order Comment: Speci men Type: SWABOrdering Facility: [facility] Address: [address] [place] [address] Performed By: #### S APCR ####[facility] LABCLIA [id number] [address] [place] TYPE + SCREENon 01-07-2025 ABO A Normal [facility] Comment on above: Order Comment: Speci men Type: BLOOD SPECIMENOrdering Facility: [facility] Address: [address] [place] [address] Result Comment: Danielle ected result: Previously reported as Invalid on 01/07/2025 at 12:00 PM EDT. Performed By: #### D AGT ####[facility] BANKCLIA [id number] [place] [address] [facility]#### [place] [id number] ####[facility] BANKCLIA [id number] [place], [place] [address] [place] [address]#### TSCR ####[facility] BLOOD BANKCLIA [id number] [place], [place] [id number] [place] [address] BLOOD BANKCLIA [id number] [place], [place] [id number] [place] [address] Result Comment: Danielle ected result: Previously reported as Invalid on 01/07/2025 at 12:04 PM EDT. Rh Nom (Bld) Positive [facility] Comment on above: Order Comment: Speci men Type: BLOOD SPECIMENOrdering Facility: [facility] Address: [address] [place] [address] Result Comment: Danielle ected result: Previously reported as Positive on 01/07/2025 at 5:39 AM EDT.This is an addended report. These results have been addended to a previously final verified report. Performed By: #### D AGT ####[facility] BANKCLIA [id number] [address]#### [place] [id number] ####[facility] BANKCLIA [id number] [address]#### TSCR ####[facility] BLO[facility] BANKCLIA [id number] [place], [place] [address] [place] [address] BLOOD BANKCLIA [id number] [place], [place] [address] [place] [address] TYPE AND SCREEN EXPIRATION 01/10/2025 23:59 Normal [facility] Comment on above: Order Comment: Speci men Type: BLOOD SPECIMENOrdering Facility: [facility] Address: [address] [place] [address] Result Comment: Danielle ected result: Previously reported as 01/10/2025 23:59 on 01/07/2025 at 5:39 AM EDT.This is an addended report. These results have been addended to a previously final verified report. Performed By: #### D AGT ####[facility] BANKCLIA [id number] [address] OF [facility]#### [place], [id number] ####[facility] BLOOD BANKCLIA [id number] [address]#### TSCR ####[facility] BLOOD BANKCLIA [id number] [address] BLOOD BANKCLIA [id number] [address] OF [facility] ALLIED HEALTHon 01-06-2025 ALLIED HEALTH Normal [facility] B-HYDROXYBUTYRATEon 01-07-20 25 Beta hydroxybutyrate [Moles/Vol] 0.30 mmol/L High <0.28 [facility] Comment on above: Order Comment: Speci men Type: BLOOD SPECIMENOrdering Facility: [facility] Address: [address] [place] [address] Performed By: #### 1 9123-9, BHB, 54230-8, 3040-3, [id number] ####[facility] LABORATORYCLIA [id number] [address] B2 Microglob SerPl-mCncon Ozkl-2-Etoxcpbuyolqu [Mass/Vol] 12.5 ug/mL High <3.1 [facility] Comment on above: Order Comment: Speci [facility] Type: BLOOD SPECIMENOrdering Facility: [facility] Address: [address] [place] [address] Result Comment: Beta -2 Microglobulin test is performed using the [employer] immunoturbidimetric method. Results obtained with different methods or kits cannot be used interchangeably. Performed By: #### 2 532-0, 1952-1 ####[facility] LABCLIA [id number] [place] [id number] [facility] BONE MARROW ANALYSISon 01-06 ADDENDUM 1: Normal [facility] Comment on above: Order Comment: Speci men Type: BONE MARROW SPECIMENOrdering Facility: [facility] Address: [address] [place] [address] Result Comment: The purpose of this addendum is to report the results of a P53 immunostain performed on the bone marrow core biopsy (block B1). P53 immunohistochemistry demonstrates weak, heterogeneous staining in a small subset of the lymphoma cells. The above final diagnosis remains unchanged.Addendum electronically signed by Indy Mobley MD on 01/09/2025 at 1822 EDT Performed By: #### B MRT ####[facility] LABCLIA [id number] [address] [place] AP DISCLAIMER Normal [facility] Comment on above: Order Comment: Speci men Type: BONE MARROW SPECIMENOrdering Facility: [facility] Address: [address] [place] [address] Result Comment: Krysten redman Developed Test (LDT) Disclaimer:Performance characteristics of immunohistochemical, immunofluorescent, and chromogenic in-situ hybridization tests have been determined by the performing laboratory within [facility] Pathology and Laboratory Medicine Department ([facility], [facility], [facility], [facility], [facility], [facility], or [facility]) in a manner consistent with CLIA requirements. One or more of these tests may not have been cleared or approved by the FDA. [facility] is regulated under CLIA as qualified to perform high-complexity testing. These tests are used for clinical purposes. These should not be regarded as investigational or for research. Positive and negative controls stain appropriately.Note: Immunohistochemical stains were performed in addition to flow cytometry in this case to further characterize the hematolymphoid elements in the context of cell morphology and tissue architecture. Discrepancies between flow cytometric results and morphology can occur due to sampling differences, preferential loss of specific cell populations, or hemodilution. Performed By: #### B MRT ####[facility] LABCLIA [id number] [address] [place] CASE REPORT Normal [facility] Comment on above: Order Comment: Demarco harris Type: BONE MARROW SPECIMENOrdering Facility: [facility] Address: [address] [place] [address] Result Comment: Bone Marrow Pathology Report Case: [id number] Provider: July Pierce MD Collected: 01/06/2025 02:40 PMOrdering Location: Hematology/Oncology Received: 01/06/2025 03:27 PMPathologist: Indy Mobley MDSpecimens: A) - Bone Marrow, Aspirate, Right, Posterior, Iliac Crest B) - Bone Marrow, Biopsy, Right, Posterior, Iliac Crest C) - Bone Marrow, Clot, Right, Posterior, Iliac Crest D) - Blood Performed By: #### B MRT ####[facility] LABCLIA [id number] [address] [place] DIAGNOSIS COMMENT Normal [facility] Comment on above: Order Comment: Demarco harris Type: BONE MARROW SPECIMENOrdering Facility: [facility] Address: [address] [place] [address] Result Comment: The patient has a history of autoimmune hemolytic anemia. Imaging has demonstrated lymphadenopathy.Flow cytometry performed on the bone marrow aspirate demonstrated involvement by a CD5-positive, lambda-restricted B-cell population. 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 The background bone marrow demonstrates maturing trilineage hematopoiesis without overt evidence of dysplasia. Immunohistochemistry for P53 is pending and will be reported separately in an addendum. Of note, there was insufficient material received to perform molecular studies on this specimen. Cytogenetic studies remain pending. Correlation with the clinical and imaging findings is suggested.Preliminary findings were discussed with Marti Garcia CNP by Dr. Kike Mobley via phone call on 01/07/25 at approximately 1623. Performed By: #### B MRT ####[facility] LABCLIA [id number] [address] [place] FINAL DIAGNOSIS Normal [facility] Comment on above: Order Comment: Demarco harris Type: BONE MARROW SPECIMENOrdering Facility: [facility] Address: [address] [place] [address] Result Comment: A-C. Bone marrow, core biopsy, aspirate smears, clot section, and touch imprint:- Mantle cell lymphoma involving approximately 40% of a normocellular (20-30%) bone marrow.- Background bone marrow with trilineage hematopoiesis.- Stainable iron is present.- See comment.D. Peripheral blood smear:- Normocytic anemia.MMN 01/07/25 at 1224 EDT Performed By: #### B MRT ####[facility] LABCLIA [id number] [place] [address] [place] [facility] FINAL PERFORMING LAB Normal [facility] Comment on above: Order Comment: Speci men Type: BONE MARROW SPECIMENOrdering Facility: [facility] Address: [address] [place] [address] Result Comment: Diag nostic interpretation performed at: [facility], [address] [place] [address], [place] [address] CLIA# [id number] Director: Russ Hollis MD Performed By: #### B MRT ####[facility] LABIA [id number] [address] GROSS DESCRIPTION Normal [facility] Comment on above: Order Comment: Speci men Type: BONE MARROW SPECIMENOrdering Facility: [facility] Address: [address] [place] [address] Result Comment: A. B one Marrow, Aspirate, Right, Posterior, Iliac CrestReceived are air-dried bone marrow aspirate smears. Submitted for light microscopy.B. Bone Marrow, Biopsy, Right, Posterior, Iliac CrestReceived in formalin are three segments of cylindrical tissue aggregating to 1.8 x 0.3 x 0.3 cm, osorio-red and of a firm consistency. Also received in the same container is one segment of hemorrhagic material measuring 2.1 x 0.7 x 0.5 cm. Totally submitted in one cassette after decalcification.C. Bone Marrow, Clot, Right, Posterior, Iliac CrestReceived in formalin is one segment of red, hemorrhagic material measuring 2.3 x 2.1 x 0.5 cm. Totally submitted in one cassette.D. BloodReceived is a peripheral blood smear. Submitted for light microscopy.Gross examination performed at [facility], [address] [place], [place] [address]FFS 01/06/2025 7:25 PM Performed By: #### B MRT ####[facility] LABCLIA [id number] [facility] [id number] [place] [address] [place] MICROSCOPIC DESCRIPTION Normal [facility] Comment on above: Order Comment: Speci men Type: BONE MARROW SPECIMENOrdering Facility: [facility] Address: [address] [place] [address] Result Comment: LAURA PHERAL BLOOD:CBC (01/06/2025 3:12 PM) Diff: AutoWBC 4.72 k/uL Neutrophils % 73.6Hemoglobin 8.6 g/dL Lymphocytes % 18.6MCV 88.8 fL Monocytes % 5.5RDW-CV 16.1 % Eosinophils % 1.5Platelet Count 232 k/uL Basophils % 0.2 Immature Granulocytes % 0.6Morphology/Interpretation: Mature granulocytes and lymphocytes are present. There is normocytic anemia with anisocytosis and few ovalocytes. Platelets are adequate.BONE MARROW ASPIRATE:Result Normal Range0 % Blasts 0-20 % Promyelocytes 1-550 % Myelos/Metas/Bands/Segs 32-722 % Eosinophils 1-60 % Basophils 0-10 % Monocytes 0-450 % Erythroid precursors 13-378 % Lymphocytes 7-231 % Plasma cells 0-2 Myeloid/Erythro (1.5-4): 1 Cells counted: 500. Iron stain result: Storage iron is present. Ring sideroblasts are absent. Specimen Quality: Spicular, cellular. Megakaryocytes: Present with overall normal morphology. Erythropoiesis: Mild megaloblastoid change and occasional nuclear irregularities are present. Granulopoiesis: Progressive maturation.BONE MARROW BIOPSY: Adequacy: Adequate. Cellularity: Variable. Cellularity ranges from approximately 20% in the areas of trilineage hematopoiesis to essentially 100% in the areas containing lymphoid aggregates. ME ratio: Decreased. Hematopoiesis: Trilineage maturation. Megakaryocytes: Adequate. Megakaryocyte morphology: Normal. Lymphoid infiltrate: A nodular lymphoid infiltrate is identified. These areas are composed of small lymphoid cells with irregular nuclear contours, slightly dispersed chromatin, and scant amounts of cytoplasm. Bone trabeculae: Unremarkable. Other: Immunohistochemistry is performed. The cells in the lymphoid aggregates are positive for CD20, consistent with B cells. The B cells coexpress CD5, cyclin D1 (weak), SOX11, and BCL2. They are negative for CD10, BCL6, and LEF1. The degree of involvement by the abnormal B cell is difficult to assess due to the nodular nature of the infiltrate, but the B cells are estimated to comprise approximately 40% of overall bone marrow cellularity.CD3 highlights T cells. CD21 is negative. The Ki67 proliferation index in the lymphoid infiltrate is approximately 10-20%. CD138 shows that plasma cells comprise less than 5% of overall bone marrow cellularity. The plasma cells are polytypic by immunohistochemistry for kappa and lambda immunoglobulin light chain.CLOT SECTION: Marrow particles: Many. Morphology: Similar to biopsy.ANCILLARY TESTS: Flow cytometry: Performed. Cytogenetics: Pending. Molecular: Insufficient specimen received to perform molecular studies. Performed By: #### B MRT ####[facility] LABCLIA [id number] [place] [address] [place] BONE MARROW BIOPSYon 025 Marti Garcia A PRN.CNP 01/06/2025 3:05 PM BONE MARROW BIOPSY Date/Start Time: 01/06/2025 2:40 PM Date/Stop Time: 01/06/2025 2:55 PM Performed by: Marti Garcia APRN.BRICK OR BLOCK MAKER Authorized by: Marti Garcia APRN.BRICK OR BLOCK MAKER Where was Patient When this Procedure was Performed: [facility] Ambulatory Informed Consent Consent Obtained: Written [place] Protocol A moment to CARE was completed. SIGN IN Personnel directly involved with the procedure wore the appropriate PPE. Special Equipment: N/A Patient/Surrogate Stated/Verified: Patient name, Date of , Relevant allergies and Intended procedure TIME OUT Relevant labs, photos, and/or imaging studies have been reviewed. Intended patient and procedure match source documents. Consent obtained and matches the intended procedure. Correct side/site marked and visible. Medications required for procedure verified. Fire risk assessed and interventions discussed. No implant(s) inserted. Pre-Procedure Details: The area was prepped with povidone Iodine (Betadine) and allowed to dry. A sterile partial body drape was applied following the usual aseptic technique. Medications: Local Anesthesia (see MAR): Lidocaine 2% (8cc) Procedure Details: Patient Position: Left lateral decubitus Aspiration Laterality: Unilateral Aspiration Site: Right posterior superior iliac crest Biopsy Laterality: Unilateral Biopsy Site: Right posterior sperior iliac crest OnControl biopsy system was used. Using aseptic technique, bone marrow aspiration was performed. A touch prep was taken. Core biopsy was obtained 1 cm. The core biopsy was confirmed. Number of External Insertion Sites: 1 Pressure dressing applied to Bone Marrow site(s). Hemostasis maintained. Assisting Clinician(s): Marti Morales MA Post-Procedure Details: Patient Tolerance: Patient tolerated the procedure well with no immediate complications Immediate Complications: unable to obtain adequate liquid samples due to clotting and scant blood return Estimated Blood Loss: scant Specimens Sent: bone marrow analysis, bone marrow chromosome analysis, DNA extraction and flow cytometry (myeloid NGS) Teaching Complete: Bone Marrow Biopsy Post-procedure teaching complete Post-procedure care was reviewed and explained. Patient instructed to communicate complaints of redness, swelling, increased or unresolved pain, bleeding chills, bruising, and/or fever. Patient verbalized understanding. SIGN OUT All specimens correctly labeled and sent. All instruments, equipment, possible retained foreign bodies accounted for. The post-procedure POC has been communicated to the patient or surrogate. [facility] BONE MARROW CHROMOSOME ANALo n 01-06-2025 CHROMOSOME BM Normal [facility] Comment on above: Order Comment: Speci men Type: BONE MARROW SPECIMENOrdering Facility: [facility] Address: [address] [place] [address] Result Comment: Krysten redman Accession Number: [id number]: VÍCTOR PIERCERAPathologist: [facility] Stokesbushrargical Pathology No: [id number] diagnosis: Autoimmune hemolytic anemia, Suspicious for B CellLymphomaSpecimen Type: Bone marrowReceived Date: 01/07/2025Number of cells counted: 20Number of cells analyzed: 20Number of cells karyotyped: 20Banding resolution: 400Banding method: G-bandingDIAGNOSIS: 45,X,-Y[12]/45,XY,add(1)(p13),add(4)(q31.1),add(6)(q13),add(7) (q22),-11,t(11;14)(q13;q32),+12,add(12)(p11.2),elaina(12;15)(q10; q10),add(13)(p11.2),add(19)(q13.3),+mar[5]/46,XY[3]INTERPRETAT ION: Abnormal, male karyotypeCOMMENT: Ten metaphase cells were analyzed from the culture stimulatedwith ODN, five metaphase cells were analyzed from the culturestimulated with GMCSF and five metaphase cells were analyzed from the24 hour unstimulated culture. A mixture of apparently normal cellsand two abnormal clones was observed. Three out of the 20 cellsanalyzed showed a 46,XY karyotype. The remaining seventeen cells wereabnormal. Twelve cells had loss of the Y chromosome as the soleabnormality. Five cells had a complex karyotype including additionalchromosome material of unknown origin replacing the short arm of onechromosome 1, additional chromosome material of unknown originreplacing the long arm of one chromosome 4, additional chromosomematerial of unknown origin replacing the long arm of one chromosome 6,additional chromosome material of unknown origin replacing the longarm of one chromosome 7, loss of one chromosome 11, an apparentlybalanced translocation between the long arm of one chromosome 11 andthe long arm of one chromosome 14 at 11q13 and 14q32, gain (trisomy)of chromosome 12, additional chromosome material of unknown originreplacing the short arm of one chromosome 12, a derivative chromosomeformed from the unbalanced translocation of the long arm of onechromosome 12 and the long arm of one chromosome 15, additionalchromosome material of unknown origin replacing the short arm of onechromosome 13, additional chromosome material of unknown originreplacing the long arm of one chromosome 19, and the gain of a markerchromosome. Some abnormal cells also had random chromosomal loss orsingle cell (non-clonal) structural rearrangements, which may be dueto culture artifact.The clone with loss of the Y chromosome is likely not related to aneoplasm, and occurs with increasing age in men.The translocation t(11;14) results in the fusion of genes CCND1 andIGH, and is characteristic of mantle cell lymphoma. Gains ofchromosome 12 are common in B cell neoplasms. Complex karyotypes(greater than or equal to 3 unrelated anomalies) are generally a poorprognostic indicator.Clinical and pathologic correlation is recommended.Interpretation performed by Ximena Fraser, PhDPerformed by [facility] Hospitallecular Pathology and Cytogenomics ([id number]), Division of LaboratoryMedicineRobert Sumanth Bal Department of Pathology & Laboratory Medicine,Diagnostics [address] [place] [address]. [place], [place] [address]Phone: Toll free: Performed By: #### C [facility] ####CLARITY ILLUMINA LIMSCLIA [id number] [address] STATES OF [facility] Bacteria Bld Culton 01-07-20 25 Bacteria identified Cx Nom (Bld) CULTURE, BLOOD: No growth 5 days Normal [facility] Comment on above: Performed By: #### 6 00-7 ####[facility] LABCLIA [id number] [address] STATES OF [facility] CBC W Auto Differential pane l (Bld)on 01-06-2025 Basophils (Bld) [#/Vol] 10*3/uL Normal <0.11 [facility] Comment on above: Order Comment: Speci men Type: BLOOD SPECIMENOrdering Facility: [facility] Address: [address] [place] [address] Performed By: #### 5 7021-8 ####[facility] LABORATORYCLIA [id number] [address] STATES [facility] Basophils/100 WBC (Bld) 0.0 % Normal [facility] Comment on above: Order Comment: Speci men Type: BLOOD SPECIMENOrdering Facility: [facility] Address: [address] [place] [address] Performed By: #### 5 7021-8 ####[facility] LABORATORYCLIA [id number] [address] [place] Differential cell count method Nom (Bld) Auto Normal [facility] Comment on above: Order Comment: Speci men Type: BLOOD SPECIMENOrdering Facility: [facility] Address: [address] [place] [address] Performed By: #### 5 7021-8 ####[facility] LABORATORYCLIA [id number] [address] OF [place] Eosinophils (Bld) [#/Vol] 10*3/uL Normal <0.46 [facility] Comment on above: Order Comment: Speci men Type: BLOOD SPECIMENOrdering Facility: [facility] Address: [address] [place] [address] Performed By: #### 5 7021-8 ####[facility] LABORATORYCLIA [id number] [address] Eosinophils/100 WBC (Bld) 0.0 % Normal [facility] Comment on above: Order Comment: Speci men Type: BLOOD SPECIMENOrdering Facility: [facility] Address: [address] [place] [address] Performed By: #### 5 7021-8 ####[facility] LABORATORYCLIA [id number] [address] Erythrocyte distribution width (RBC) [Ratio] 16.3 % High 11.5-15.0 [facility] Comment on above: Order Comment: Speci men Type: BLOOD SPECIMENOrdering Facility: [facility] Address: [address] [place] [address] Performed By: #### 5 7021-8 ####[facility] LABORATORYCLIA [id number] [address] Hematocrit (Bld) [Volume fraction] 24.4 % Low 39.0-51.0 [facility] Comment on above: Order Comment: Speci men Type: BLOOD SPECIMENOrdering Facility: [facility] Address: [address] [place] [address] Performed By: #### 5 7021-8 ####[facility] LABORATORYCLIA [id number] [place] [address] [place] Hemoglobin (Bld) [Mass/Vol] 7.6 g/dL Low 13.0-17.0 [facility] Comment on above: Order Comment: Speci men Type: BLOOD SPECIMENOrdering Facility: [facility] Address: [address] [place] [address] Performed By: #### 5 7021-8 ####[facility] LABORATORYCLIA [id number] [place] [address] [place] Immature granulocytes (Bld) [#/Vol] 10*3/uL Normal <0.10 [facility] Comment on above: Order Comment: Speci men Type: BLOOD SPECIMENOrdering Facility: [facility] Address: [address] [place] [address] Performed By: #### 5 7021-8 ####[facility] LABORATORYCLIA [id number] [address] [place] Immature granulocytes/100 WBC (Bld) 0.2 % Normal [facility] Comment on above: Order Comment: Speci men Type: BLOOD SPECIMENOrdering Facility: [facility] Address: [address] [place] [address] Performed By: #### 5 7021-8 ####[facility] LABORATORYCLIA [id number] [place] [address] [place] Lymphocytes (Bld) [#/Vol] 0.61 10*3/uL Low 1.00-4.00 [facility] Comment on above: Order Comment: Speci men Type: BLOOD SPECIMENOrdering Facility: [facility] Address: [address] [place] [address] Performed By: #### 5 7021-8 ####[facility] LABORATORYCLIA [id number] [place] [id number] [place] Lymphocytes/100 WBC (Bld) 14.7 % Normal [facility] Comment on above: Order Comment: Speci men Type: BLOOD SPECIMENOrdering Facility: [facility] Address: [address] [place] [address] Performed By: #### 5 7021-8 ####[facility] LABORATORYCLIA [id number] [place] [address] [place] MCH (RBC) [Entitic mass] 28.6 pg Normal 26.0-34.0 [facility] Comment on above: Order Comment: Speci men Type: BLOOD SPECIMENOrdering Facility: [facility] Address: [address] [place] [address] Performed By: #### 5 7021-8 ####[facility] LABORATORYCLIA [id number] [address] OF [place] MCHC (RBC) [Mass/Vol] 31.1 g/dL Normal 30.5-36.0 [facility] Comment on above: Order Comment: Speci men Type: BLOOD SPECIMENOrdering Facility: [facility] Address: [address] [place] [address] Performed By: #### 5 7021-8 ####[facility] LABORATORYCLIA [id number] [address] MCV (RBC) [Entitic vol] 91.7 fL Normal 80.0-100.0 [facility] Comment on above: Order Comment: Speci men Type: BLOOD SPECIMENOrdering Facility: [facility] Address: [address] [place] [address] Performed By: #### 5 7021-8 ####[facility] LABORATORYCLIA [id number] [address] Monocytes (Bld) [#/Vol] 0.21 10*3/uL Normal <0.87 [facility] Comment on above: Order Comment: Speci men Type: BLOOD SPECIMENOrdering Facility: [facility] Address: [address] [place] [address] Performed By: #### 5 7021-8 ####[facility] LABORATORYCLIA [id number] [address] Monocytes/100 WBC (Bld) 5.1 % Normal [facility] Comment on above: Order Comment: Speci men Type: BLOOD SPECIMENOrdering Facility: [facility] Address: [address] [place] [address] Performed By: #### 5 7021-8 ####[facility] LABORATORYCLIA [id number] [address] [place] Neutrophils (Bld) [#/Vol] 3.32 10*3/uL Normal 1.45-7.50 [facility] Comment on above: Order Comment: Speci men Type: BLOOD SPECIMENOrdering Facility: [facility] Address: [address] [place] [address] Performed By: #### 5 7021-8 ####[facility] LABORATORYCLIA [id number] [address] OF [place] Neutrophils/100 WBC (Bld) 80.0 % Normal [facility] Comment on above: Order Comment: Speci men Type: BLOOD SPECIMENOrdering Facility: [facility] Address: [address] [place] [address] Performed By: #### 5 7021-8 ####[facility] LABORATORYCLIA [id number] [address] [place] Nucleated RBC (Bld) [#/Vol] 10*3/uL Normal <0.01 [facility] Comment on above: Order Comment: Speci men Type: BLOOD SPECIMENOrdering Facility: [facility] Address: [address] [place] [address] Performed By: #### 5 7021-8 ####[facility] LABORATORYCLIA [id number] [address] Nucleated RBC/100 WBC (Bld) [Ratio] 0.0 /100 WBC Normal [facility] Comment on above: Order Comment: Speci men Type: BLOOD SPECIMENOrdering Facility: [facility] Address: [address] [place] [address] Performed By: #### 5 7021-8 ####[facility] LABORATORYCLIA [id number] [place] [address] [place] Platelet mean volume (Bld) [Entitic vol] 9.3 fL Normal 9.0-12.7 [facility] Comment on above: Order Comment: Speci men Type: BLOOD SPECIMENOrdering Facility: [facility] Address: [address] [place] [address] Performed By: #### 5 7021-8 ####[facility] LABORATORYCLIA [id number] [place] [address] [place] [facility] [place] Platelets (Bld) [#/Vol] 237 10*3/uL Normal 150-400 [facility] Comment on above: Order Comment: Speci men Type: BLOOD SPECIMENOrdering Facility: [facility] Address: [address] [place] [address] Performed By: #### 5 7021-8 ####[facility] LABORATORYCLIA [id number] [place] [address] [place] RBC (Bld) [#/Vol] 2.66 10*6/uL Low 4.20-6.00 [facility] Comment on above: Order Comment: Speci men Type: BLOOD SPECIMENOrdering Facility: [facility] Address: [address] [place] [address] Performed By: #### 5 7021-8 ####[facility] [facility] LABORATORYCLIA [id number] [address] [place] WBC (Bld) [#/Vol] 4.15 10*3/uL Normal 3.70-11.00 [facility] Comment on above: Order Comment: Speci men Type: BLOOD SPECIMENOrdering Facility: [facility] Address: [address] [place] [address] Performed By: #### 5 7021-8 ####HERRERA LABORATORYCLIA [id number] [address] [place] Basophils (Bld) [#/Vol] NINF [facility] Bas[facility]/100 WBC (Bld) 0.2 % [facility] Differential cell count method Nom (Bld) Auto [facility] Eosinophils (Bld) [#/Vol] 0.07 10*3/uL NINF [facility] Eosinophils/100 WBC (Bld) 1.5 % [facility] Erythrocyte distribution width (RBC) [Ratio] 16.1 % High 11.5 - 15.0 % [facility] Hematocrit (Bld) [Volume fraction] 27 % Low 39.0 - 51.0 % [facility] Hemoglobin (Bld) [Mass/Vol] 8.6 g/dL Low 13.0 - 17.0 g/dL [facility] Immature granulocytes (Bld) [#/Vol] 0.03 10*3/uL [facility] Immature granulocytes/100 WBC (Bld) 0.6 % [facility] Interpretation and review of laboratory results Abnormal [facility] Lymphocytes (Bld) [#/Vol] 0.88 10*3/uL Low [facility] Lymphocytes/100 WBC (Bld) 18.6 % [facility] MCH (RBC) [Entitic mass] 28.3 pg 26.0 - 34.0 pg [facility] MCHC (RBC) [Mass/Vol] 31.9 g/dL 30.5 - 36.0 g/dL [facility] MCV (RBC) [Entitic vol] 88.8 fL 80.0 - 100.0 fL [facility] Monocytes (Bld) [#/Vol] 0.26 10*3/uL [facility] Monocytes/100 WBC (Bld) 5.5 % C [facility] Neutrophils (Bld) [#/Vol] 3.47 10*3/uL [facility] Neutrophils/100 WBC (Bld) 73.6 % [facility] Nucleated RBC (Bld) [#/Vol] [facility] Nucleated RBC/100 WBC (Bld) [Ratio] 0 % /100 WBC [facility] Platelet mean volume (Bld) [Entitic vol] 9.4 fL 9.0 - 12.7 fL [facility] Platelets (Bld) [#/Vol] 232 10*3/uL [facility] RBC (Bld) [#/Vol] 3.04 10*6/uL Low 4.20 - 6.00 m/uL [facility] WBC (Bld) [#/Vol] 4.72 10*3/uL [facility] Basophils (Bld) [#/Vol] 10*3/uL Normal <0.11 [facility] Comment on above: Order Comment: Speci men Type: BLOOD SPECIMENOrdering Facility: [facility] Address: [address] [place] [address] Performed By: #### 5 7021-8 ####HERRERA LABORATORYCLIA [id number] [place] [address] [place] Basophils/100 WBC (Bld) 0.2 % Normal C [facility] Comment on above: Order Comment: Speci men Type: BLOOD SPECIMENOrdering Facility: [facility] Address: [address] [place] [address] Performed By: #### 5 7021-8 ####HERRERA LABORATORYCLIA [id number] [address] [place] Differential cell count method Nom (Bld) Auto Normal [facility] Comment on above: Order Comment: Speci men Type: BLOOD SPECIMENOrdering Facility: [facility] Address: [address] [place] [address] Performed By: #### 5 7021-8 ####HERRERA LABORATORYCLIA [id number] [place] [address] [place] Eosinophils (Bld) [#/Vol] 0.07 10*3/uL Normal <0.46 [facility] Comment on above: Order Comment: Speci men Type: BLOOD SPECIMENOrdering Facility: [facility] Address: [address] [place] [address] Performed By: #### 5 7021-8 ####HERRERA LABORATORYCLIA [id number] [address] [place] Eosinophils/100 WBC (Bld) 1.5 % Normal [facility] Comment on above: Order Comment: Speci men Type: BLOOD SPECIMENOrdering Facility: [facility] Address: [address] [place] [address] Performed By: #### 5 7021-8 ####HERRERA LABORATORYCLIA [id number] [place] [address] [place] Erythrocyte distribution width (RBC) [Ratio] 16.1 % High 11.5-15.0 [facility] Comment on above: Order Comment: Speci men Type: BLOOD SPECIMENOrdering Facility: [facility] Address: [address] [place] [address] Performed By: #### 5 7021-8 ####HERRERA LABORATORYCLIA [id number] [address] [place] Hematocrit (Bld) [Volume fraction] 27.0 % Low 39.0-51.0 [facility] Comment on above: Order Comment: Speci men Type: BLOOD SPECIMENOrdering Facility: [facility] Address: [address] [place] [address] Performed By: #### 5 7021-8 ####HERRERA LABORATORYCLIA [id number] [place] [address] [place] Hemoglobin (Bld) [Mass/Vol] 8.6 g/dL Low 13.0-17.0 [facility] Comment on above: Order Comment: Speci men Type: BLOOD SPECIMENOrdering Facility: [facility] Address: [address] [place] [address] Performed By: #### 5 7021-8 ####HERRER[facility] LABORATORYCLIA [id number] [place] [address] [place] Immature granulocytes (Bld) [#/Vol] 0.03 10*3/uL Normal <0.10 [facility] Comment on above: Order Comment: Speci men Type: BLOOD SPECIMENOrdering Facility: [facility] Address: [address] [place] [address] Performed By: #### 5 7021-8 ####HERRER[facility] LABORATORYCLIA [id number] [address] [place] Immature granulocytes/100 WBC (Bld) 0.6 % Normal [facility] Comment on above: Order Comment: Speci men Type: BLOOD SPECIMENOrdering Facility: [facility] Address: [address] [place] [address] Performed By: #### 5 7021-8 ####HERRERA LABORATORYCLIA [id number] [place] [address] [place] Lymphocytes (Bld) [#/Vol] 0.88 10*3/uL Low 1.00-4.00 [facility] Comment on above: Order Comment: Speci men Type: BLOOD SPECIMENOrdering Facility: [facility] Address: [address] [place] [address] Performed By: #### 5 7021-8 ####HERRERA LABORATORYCLIA [id number] [place] [address] [place] Lymphocytes/100 WBC (Bld) 18.6 % Normal [facility] Comment on above: Order Comment: Speci men Type: BLOOD SPECIMENOrdering Facility: [facility] Address: [address] [place] [address] Performed By: #### 5 7021-8 ####HERRERA LABORATORYCLIA [id number] [place] [address] [place] MCH (RBC) [Entitic mass] 28.3 pg Normal 26.0-34.0 [facility] Comment on above: Order Comment: Speci men Type: BLOOD SPECIMENOrdering Facility: [facility] Address: [address] [place] [address] Performed By: #### 5 7021-8 ####HERRERA LABORATORYCLIA [id number] [place] [address] [place] MCHC (RBC) [Mass/Vol] 31.9 g/dL Normal 30.5-36.0 [facility] Comment on above: Order Comment: Speci men Type: BLOOD SPECIMENOrdering Facility: [facility] Address: [address] [place] [address] Performed By: #### 5 7021-8 ####HERRER[facility] LABORATORYCLIA [id number] [address] [place] MCV (RBC) [Entitic vol] 88.8 fL Normal 80.0-100.0 [facility] Comment on above: Order Comment: Speci men Type: BLOOD SPECIMENOrdering Facility: [facility] Address: [address] [place] [address] Performed By: #### 5 7021-8 ####HERRER[facility] LABORATORYCLIA [id number] [place] [address] [place] Monocytes (Bld) [#/Vol] 0.26 10*3/uL Normal <0.87 [facility] Comment on above: Order Comment: Speci men Type: BLOOD SPECIMENOrdering Facility: [facility] Address: [address] [place] [address] Performed By: #### 5 7021-8 ####HERRERA LABORATORYCLIA [id number] [place] [address] [place] Monocytes/100 WBC (Bld) 5.5 % Normal [facility] Comment on above: Order Comment: Speci men Type: BLOOD SPECIMENOrdering Facility: [facility] Address: [address] [place] [address] Performed By: #### 5 7021-8 ####HERRERA LABORATORYCLIA [id number] [place] [address] [place] Neutrophils (Bld) [#/Vol] 3.47 10*3/uL Normal 1.45-7.50 [facility] Comment on above: Order Comment: Speci men Type: BLOOD SPECIMENOrdering Facility: [facility] Address: [address] [place] [address] Performed By: #### 5 7021-8 ####HERRER[facility] LABORATORYCLIA [id number] [place] [address] [place] Neutrophils/100 WBC (Bld) 73.6 % Normal [facility] Comment on above: Order Comment: Speci men Type: BLOOD SPECIMENOrdering Facility: [facility] Address: [address] [place] [address] Performed By: #### 5 7021-8 ####HERRERA LABORATORYCLIA [id number] [place] [address] [place] Nucleated RBC (Bld) [#/Vol] 10*3/uL Normal <0.01 [facility] Comment on above: Order Comment: Speci men Type: BLOOD SPECIMENOrdering Facility: [facility] Address: [address] [place] [address] Performed By: #### 5 7021-8 ####HERRER[facility] LABORATORYCLIA [id number] [place] [address] [place] Nucleated RBC/100 WBC (Bld) [Ratio] 0.0 /100 WBC Normal [facility] Comment on above: Order Comment: Speci men Type: BLOOD SPECIMENOrdering Facility: [facility] Address: [address] [place] [address] Performed By: #### 5 7021-8 ####HERRERA LABORATORYCLIA [id number] [place] [address] [place] Platelet mean volume (Bld) [Entitic vol] 9.4 fL Normal 9.0-12.7 [facility] Comment on above: Order Comment: Speci men Type: BLOOD SPECIMENOrdering Facility: [facility] Address: [address] [place] [address] Performed By: #### 5 7021-8 ####HERRER[facility] LABORATORYCLIA [id number] [place] [address] [place] Platelets (Bld) [#/Vol] 232 10*3/uL Normal 150-400 [facility] Comment on above: Order Comment: Speci men Type: BLOOD SPECIMENOrdering Facility: [facility] Address: [address] [place] [address] Performed By: #### 5 7021-8 ####HERRERA LABORATORYCLIA [id number] [place] [address] [place] RBC (Bld) [#/Vol] 3.04 10*6/uL Low 4.20-6.00 [facility] Comment on above: Order Comment: Speci men Type: BLOOD SPECIMENOrdering Facility: [facility] Address: [address] [place] [address] Performed By: #### 5 7021-8 ####HERRER[facility] LABORATORYCLIA [id number] [place] [address] [place] WBC (Bld) [#/Vol] 4.72 10*3/uL Normal 3.70-11.00 [facility] Comment on above: Order Comment: Speci men Type: BLOOD SPECIMENOrdering Facility: [facility] Address: [address] [place] [address] Performed By: #### 5 7021-8 ####HERRERA LABORATORYCLIA [id number] [place] [address] [place] CBC W Ordered Manual Differe ntial panel (Bld)on 01-06-2025 Basophils (Bld) [#/Vol] NINF [facility] Basophils/100 WBC (Bld) 0 % [facility] Differential cell count method Nom (Bld) Auto [facility] Eosinophils (Bld) [#/Vol] 0.07 10*3/uL [facility] Eosinophils/100 WBC (Bld) 1.6 % [facility] Erythrocyte distribution width (RBC) [Ratio] 15.9 % High 11.5 - 15.0 % [facility] Hematocrit (Bld) [Volume fraction] 27.1 % Low 39.0 - 51.0 % [facility] Hemoglobin (Bld) [Mass/Vol] 8.4 g/dL Low 13.0 - 17.0 g/dL [facility] Immature granulocytes (Bld) [#/Vol] [facility] Immature granulocytes/100 WBC (Bld) 0.4 % [facility] Interpretation and review of laboratory results Abnormal [facility] Lymphocytes (Bld) [#/Vol] 0.73 10*3/uL Low [facility] Lymphocytes/100 WBC (Bld) 16.4 % [facility] MCH (RBC) [Entitic mass] 27.8 pg 26.0 - 34.0 pg [facility] MCHC (RBC) [Mass/Vol] 31 g/dL 30.5 - 36.0 g/dL [facility] MCV (RBC) [Entitic vol] 89.7 fL 80.0 - 100.0 fL [facility] Monocytes (Bld) [#/Vol] 0.23 10*3/uL [facility] Monocytes/100 WBC (Bld) 5.2 % C [facility] Neutrophils (Bld) [#/Vol] 3.41 10*3/uL [facility] Neutrophils/100 WBC (Bld) 76.4 % [facility] Nucleated RBC (Bld) [#/Vol] [facility] Nucleated RBC/100 WBC (Bld) [Ratio] 0 % /100 WBC [facility] Platelet mean volume (Bld) [Entitic vol] 9.3 fL 9.0 - 12.7 fL [facility] Platelets (Bld) [#/Vol] 242 10*3/uL [facility] RBC (Bld) [#/Vol] 3.02 10*6/uL Low 4.20 - 6.00 m/uL [facility] WBC (Bld) [#/Vol] 4.46 10*3/uL [facility] This is an appended report. These results have been appended to a previously verified report. [facility] Basophils (Bld) [#/Vol] 10*3/uL Normal <0.11 [facility] Comment on above: Order Comment: Speci men Type: BLOOD SPECIMENOrdering Facility: [facility] Address: [address] [place] [address] Performed By: #### 5 7782-5 ####HERRERA LABORATORYCLIA [id number] [place] [address] [place]#### STFREV ####[facility] LABCLIA [id number] [place] [address] [place] Basophils/100 WBC (Bld) 0.0 % Normal [facility] Comment on above: Order Comment: Speci men Type: BLOOD SPECIMENOrdering Facility: [facility] Address: [address] [place] [address] Performed By: #### 5 7782-5 ####HERRERA LABORATORYCLIA [id number] [place] [address] [place]#### STFREV ####[facility] LABCLIA [id number] [place] [address] [place] Differential cell count method Nom (Bld) Auto Normal [facility] Comment on above: Order Comment: Speci men Type: BLOOD SPECIMENOrdering Facility: [facility] Address: [address] [place] [address] Performed By: #### 5 7782-5 ####HERRERA LABORATORYCLIA [id number] [place] [address] [place]#### STFREV ####[facility] LABCLIA [id number] [place] [address] [place] Eosinophils (Bld) [#/Vol] 0.07 10*3/uL Normal <0.46 [facility] Comment on above: Order Comment: Speci men Type: BLOOD SPECIMENOrdering Facility: [facility] Address: [address] [place] [address] Performed By: #### 5 7782-5 ####HERRERA LABORATORYCLIA [id number] [place] [address] [place]#### STFREV ####[facility] LABCLIA [id number] [place] [address] [place] Eosinophils/100 WBC (Bld) 1.6 % Normal [facility] Comment on above: Order Comment: Speci men Type: BLOOD SPECIMENOrdering Facility: [facility] Address: [address] [place] [address] Performed By: #### 5 7782-5 ####HERRERA LABORATORYCLIA [id number] [place] [address] [place]#### STFREV ####[facility] LABCLIA [id number] [place] [address] [place] Erythrocyte distribution width (RBC) [Ratio] 15.9 % High 11.5-15.0 [facility] Comment on above: Order Comment: Speci men Type: BLOOD SPECIMENOrdering Facility: [facility] Address: [address] [place] [address] Performed By: #### 5 7782-5 ####HERRERA LABORATORYCLIA [id number] [place] [address] [place]#### STFREV ####[facility] LABCLIA [id number] [place] [address] [place] Hematocrit (Bld) [Volume fraction] 27.1 % Low 39.0-51.0 [facility] Comment on above: Order Comment: Speci men Type: BLOOD SPECIMENOrdering Facility: [facility] Address: [address] [place] [address] Performed By: #### 5 7782-5 ####HERRE[facility] LABORATORYCLIA [id number] [place] [address] [place]#### STFREV ####[facility] LABCLIA [id number] [place] [address] [place] Hemoglobin (Bld) [Mass/Vol] 8.4 g/dL Low 13.0-17.0 [facility] Comment on above: Order Comment: Speci men Type: BLOOD SPECIMENOrdering Facility: [facility] Address: [address] [place] [address] Performed By: #### 5 7782-5 ####HERRERA LABORATORYCLIA [id number] [place] [address] [place]#### STFREV ####[facility] LABCLIA [id number] [place] [address] [place] Immature granulocytes (Bld) [#/Vol] 10*3/uL Normal <0.10 [facility] Comment on above: Order Comment: Speci men Type: BLOOD SPECIMENOrdering Facility: [facility] Address: [address] [place] [address] Performed By: #### 5 7782-5 ####HERRERA LABORATORYCLIA [id number] [place] [address] [place]#### STFREV ####[facility] LABCLIA [id number] [address] [place] Immature granulocytes/100 WBC (Bld) 0.4 % Normal [facility] Comment on above: Order Comment: Speci men Type: BLOOD SPECIMENOrdering Facility: [facility] Address: [address] [place] [address] Performed By: #### 5 7782-5 ####HERRERA LABORATORYCLIA [id number] [place] [address] [place]#### STFREV ####[facility] LABCLIA [id number] [place] [id number] [place] Lymphocytes (Bld) [#/Vol] 0.73 10*3/uL Low 1.00-4.00 [facility] Comment on above: Order Comment: Speci men Type: BLOOD SPECIMENOrdering Facility: [facility] Address: [address] [place] [address] Performed By: #### 5 7782-5 ####HERRERA LABORATORYCLIA [id number] [place] [address] [place] [facility]#### STFREV ####[facility] LABCLIA [id number] [address] [place] Lymphocytes/100 WBC (Bld) 16.4 % Normal [facility] Comment on above: Order Comment: Speci men Type: BLOOD SPECIMENOrdering Facility: [facility] Address: [address] [place] [address] Performed By: #### 5 7782-5 ####HERRERA LABORATORYCLIA [id number] [address] STATES [facility]#### STFREV ####[facility] LABCLIA [id number] [place] [address] [place] MCH (RBC) [Entitic mass] 27.8 pg Normal 26.0-34.0 [facility] Comment on above: Order Comment: Speci men Type: BLOOD SPECIMENOrdering Facility: [facility] Address: [address] [place] [address] Performed By: #### 5 7782-5 ####HERRERA LABORATORYCLIA [id number] [address]#### STFREV ####[facility] LABCLIA [id number] [place] [address] [place] MCHC (RBC) [Mass/Vol] 31.0 g/dL Normal 30.5-36.0 [facility] Comment on above: Order Comment: Speci men Type: BLOOD SPECIMENOrdering Facility: [facility] Address: [address] [place] [address] Performed By: #### 5 7782-5 ####HERRERA LABORATORYCLIA [id number] [place] [address] [place]#### STFREV ####[facility] LABCLIA [id number] [place] [id number] [place] MCV (RBC) [Entitic vol] 89.7 fL Normal 80.0-100.0 [facility] Comment on above: Order Comment: Speci men Type: BLOOD SPECIMENOrdering Facility: [facility] Address: [address] [place] [address] Performed By: #### 5 7782-5 ####HERRERA LABORATORYCLIA [id number] [place] [address] [place]#### STFREV ####[facility] LABCLIA [id number] [place] [address] [place] Monocytes (Bld) [#/Vol] 0.23 10*3/uL Normal <0.87 [facility] Comment on above: Order Comment: Speci men Type: BLOOD SPECIMENOrdering Facility: [facility] Address: [address] [place] [address] Performed By: #### 5 7782-5 ####HERRERA LABORATORYCLIA [id number] [place] [address] [place]#### STFREV ####[facility] LABCLIA [id number] [place] [id number] [place] Monocytes/100 WBC (Bld) 5.2 % Normal [facility] Comment on above: Order Comment: Speci men Type: BLOOD SPECIMENOrdering Facility: [facility] Address: [facility] [place] [address] Performed By: #### 5 7782-5 ####HERRERA LABORATORYCLIA [id number] [place] [address] [place]#### STFREV ####[facility] LABCLIA [id number] [place] [address] [place] Neutrophils (Bld) [#/Vol] 3.41 10*3/uL Normal 1.45-7.50 [facility] Comment on above: Order Comment: Speci men Type: BLOOD SPECIMENOrdering Facility: [facility] Address: [address] [place] [address] Performed By: #### 5 7782-5 ####HERRERA LABORATORYCLIA [id number] [place] [address] [place]#### STFREV ####[facility] LABCLIA [id number] [place] [address] [place] Neutrophils/100 WBC (Bld) 76.4 % Normal [facility] Comment on above: Order Comment: Speci men Type: BLOOD SPECIMENOrdering Facility: [facility] Address: [address] [place] [address] Performed By: #### 5 7782-5 ####HERRERA LABORATORYCLIA [id number] [place] [address] [place]#### STFREV ####[facility] LABCLIA [id number] [place] [address] [place] Nucleated RBC (Bld) [#/Vol] 10*3/uL Normal <0.01 [facility] Comment on above: Order Comment: Speci men Type: BLOOD SPECIMENOrdering Facility: [facility] Address: [address] [place] [address] Performed By: #### 5 7782-5 ####HERRERA LABORATORYCLIA [id number] [place] [address] [place]#### STFREV ####[facility] LABCLIA [id number] [place] [address] [place] Nucleated RBC/100 WBC (Bld) [Ratio] 0.0 /100 WBC Normal [facility] Comment on above: Order Comment: Speci men Type: BLOOD SPECIMENOrdering Facility: [facility] Address: [address] [place] [address] Performed By: #### 5 7782-5 ####HERRERA LABORATORYCLIA [id number] [place] [address] [facility] [place]#### STFREV ####[facility] LABCLIA [id number] [place] [address] [place] Platelet mean volume (Bld) [Entitic vol] 9.3 fL Normal 9.0-12.7 [facility] Comment on above: Order Comment: Speci men Type: BLOOD SPECIMENOrdering Facility: [facility] Address: [address] [place] [address] Performed By: #### 5 7782-5 ####HERRERA LABORATORYCLIA [id number] [place] [address] [place]#### STFREV ####[facility] LABCLIA [id number] [place] [address] [place] Platelets (Bld) [#/Vol] 242 10*3/uL Normal 150-400 [facility] Comment on above: Order Comment: Speci men Type: BLOOD SPECIMENOrdering Facility: [facility] Address: [address] [place] [address] Performed By: #### 5 7782-5 ####HERRERA LABORATORYCLIA [id number] [place] [address] [place]#### STFREV ####[facility] LABCLIA [id number] [place] [address] [place] RBC (Bld) [#/Vol] 3.02 10*6/uL Low 4.20-6.00 [facility] Comment on above: Order Comment: Speci men Type: BLOOD SPECIMENOrdering Facility: [facility] Address: [address] [place] [address] Performed By: #### 5 7782-5 ####[facility] LABORATORYCLIA [id number] [address] [place]#### STFREV ####[facility] LABCLIA [id number] [place] [address] [place] WBC (Bld) [#/Vol] 4.46 10*3/uL Normal 3.70-11.00 [facility] Comment on above: Order Comment: Speci men Type: BLOOD SPECIMENOrdering Facility: [facility] Address: [address] [place] [address] Performed By: #### 5 7782-5 ####[facility] LABORATORYCLIA [id number] [place] [address] [place]#### STFREV ####[facility] LABCLIA [id number] [place] [address] [place] CNOVSPon 01-06-2025 CNOVSP Normal [facility] CONSULT PROGon 01-06-2025 CONSULT PROG Normal [facility] Comprehensive metabolic 2000 panelon 01-06-2025 Albumin [Mass/Vol] 2.9 g/dL Low 3.9-4.9 [facility] Comment on above: Order Comment: Speci men Type: BLOOD SPECIMENOrdering Facility: [facility] Address: [address] [place] [address] Performed By: #### 1 9123-9, [facility], 11230-4, 3040-3, [id number] ####[facility] LABORATORYCLIA [id number] [place] [address] [place] ALP [Catalytic activity/Vol] 92 U/L Normal 38-113 [facility] Comment on above: Order Comment: Speci men Type: BLOOD SPECIMENOrdering Facility: [facility] Address: [address] [place] [address] Performed By: #### 1 9123-9, B, 89960-1, 3040-3, [id number] ####[facility] LABORATORYCLIA [id number] [place] [address] [place] ALT [Catalytic activity/Vol] 20 U/L Normal 10-54 [facility] Comment on above: Order Comment: Speci men Type: BLOOD SPECIMENOrdering Facility: [facility] Address: [address] [facility] [address] Performed By: #### 1 9123-9, B, 29775-1, 3040-3, [id number] ####[facility] LABORATORYCLIA [id number] [place] [address] [place] Anion gap [Moles/Vol] 21 mmol/L High 8-15 [facility] Comment on above: Order Comment: Speci men Type: BLOOD SPECIMENOrdering Facility: [facility] Address: [address] [place] [address] Performed By: #### 1 9123-9, [facility], 79444-6, 3040-3, [id number] ####[facility]ORATORYCLIA [id number] [address] [place] AST [Catalytic activity/Vol] 16 U/L Normal 14-40 [facility] Comment on above: Order Comment: Speci men Type: BLOOD SPECIMENOrdering Facility: [facility] Address: [address] [place] [address] Performed By: #### 1 9123-9, [facility], 29328-6, 3040-3, [id number] ####[facility] LABORATORYCLIA [id number] [address] [place] Bilirubin [Mass/Vol] 0.6 mg/dL Normal 0.2-1.3 [facility] Comment on above: Order Comment: Speci men Type: BLOOD SPECIMENOrdering Facility: [facility] Address: [address] [place] [address] Performed By: #### 1 9123-9, [facility], 88055-7, 3040-3, [id number] ####[facility] LABORATORYCLIA [id number] [address] STATES OF [facility] Calcium [Mass/Vol] 8.1 mg/dL Low 8.5-10.2 [facility] Comment on above: Order Comment: Speci men Type: BLOOD SPECIMENOrdering Facility: [facility] Address: [address] [place] [address] Performed By: #### 1 9123-9, BHB, 70362-3, 3040-3, [id number] ####[facility] LABORATORYCLIA [id number] [place] [address] [place] Chloride [Moles/Vol] 96 mmol/L Low 98-107 [facility] Comment on above: Order Comment: Speci men Type: BLOOD SPECIMENOrdering Facility: [facility] Address: [address] [place] [address] Performed By: #### 1 9123-9, B, 16034-4, 3040-3, [id number] ####[facility] LABORATORYCLIA [id number] [place] [address] [place] CO2 [Moles/Vol] 14 mmol/L Low 22-30 [facility] Comment on above: Order Comment: Speci men Type: BLOOD SPECIMENOrdering Facility: [facility] Address: [address] [place] [address] Performed By: #### 1 9123-9, [facility], 11396-6, 3040-3, [id number] ####[facility] LABORATORYCLIA [id number] [place] [address] [place] Creatinine [Mass/Vol] 1.85 mg/dL High 0.73-1.22 [facility] Comment on above: Order Comment: Speci men Type: BLOOD SPECIMENOrdering Facility: [facility] Address: [address] [place] [address] Performed By: #### 1 9123-9, [facility], 74497-9, 3040-3, [id number] ####[facility] LABORATORYCLIA [id number] [place] [address] [place] eGFRcr SerPlBld CKD-EPI 2020 38 mL/min/1.73m??? Low >=60 [facility] Comment on above: Order Comment: Speci men Type: BLOOD SPECIMENOrdering Facility: [facility] Address: [address] [place] [address] Result Comment: Nancy mated Glomerular Filtration Rate (eGFR) is calculated using the 2020 CKD-EPI creatinine equation. This equation utilizes serum creatinine, sex, and age as parameters. The creatinine assay has traceable calibration to isotope dilution-mass spectrometry. Refer to KDIGO guidelines for clinical interpretation. In patients with unstable renal function, e.g. those with acute kidney injury, the eGFR may not accurately reflect actual GFR. Performed By: #### 1 9123-9, JANETH, 28525-5, 3040-3, [id number] ####[facility] LABORATORYCLIA [id number] [place] [address] [place] Glucose [Mass/Vol] 955 mg/dL High 74-99 [facility] Comment on above: Order Comment: Demarco harris Type: BLOOD SPECIMENOrdering Facility: [facility] Address: [address] [place], [place] [address] Result Comment: The [place] Diabetes Association (ADA) provides guidance for cutoff values for fasting glucose and random glucose. The ADA defines fasting as no caloric intake for at least 8 hours. Fasting plasma glucose results between 100 to 125 mg/dL indicate increased risk for diabetes (prediabetes).Fasting plasma glucose results greater than or equal to 126 mg/dL meet the criteria for diagnosis of diabetes. In the absence of unequivocal hyperglycemia, results should be confirmed by repeat testing. In a patient with classic symptoms of hyperglycemia or hyperglycemic crisis, random plasma glucose results greater than or equal to 200 mg/dL meet the criteria for diagnosis of diabetes.Reference: Standards of Medical Care in Diabetes 2016, [place] [employer] Association. Diabetes Care. 2016.39(Suppl 1). Performed By: #### 1 9123-9, JANETH, 16003-7, 3040-3, [id number] ####[facility] LABORATORYCLIA [id number] [place] [address] [place] Potassium [Moles/Vol] 5.2 mmol/L High 3.7-5.1 [facility] Comment on above: Order Comment: Demarco harris Type: BLOOD SPECIMENOrdering Facility: [facility] Address: [address] [place] [address] Performed By: #### 1 9123-9, BHB, 60060-6, 3040-3, [id number] ####[facility] LABORATORYCLIA [id number] [place] [address] [place] Protein [Mass/Vol] 5.6 g/dL Low 6.3-8.0 [facility] Comment on above: Order Comment: Speci men Type: BLOOD SPECIMENOrdering Facility: [facility] Address: [facility] [place] [address] Performed By: #### 1 9123-9, BHB, 50713-5, 3040-3, [id number] ####[facility] LABORATORYCLIA [id number] [place] [address] [place] Sodium [Moles/Vol] 131 mmol/L Low 136-144 [facility] Comment on above: Order Comment: Speci men Type: BLOOD SPECIMENOrdering Facility: [facility] Address: [facility] [place] [address] Performed By: #### 1 9123-9, B, 33463-3, 3040-3, [id number] ####[facility] LABORATORYCLIA [id number] [place] [address] [place] Urea nitrogen [Mass/Vol] 42 mg/dL High 9-24 [facility] Comment on above: Order Comment: Speci men Type: BLOOD SPECIMENOrdering Facility: [facility] Address: [facility] [place] [address] Performed By: #### 1 9123-9, [facility], 94504-2, 3040-3, [id number] ####[facility] LABORATORYCLIA [id number] [place] [address] [place] Albumin [Mass/Vol] 3.1 g/dL Low 3.9 - 4.9 g/dL [facility] ALP [Catalytic activity/Vol] 98 U/L 38 - 113 U/L [facility] ALT [Catalytic activity/Vol] 20 U/L 10 - 54 [facility] Anion gap [Moles/Vol] 12 mmol/L 8 - 15 mmol/L [facility] AST [Catalytic activity/Vol] 14 U/L 14 - 40 U/L [facility] Bilirubin [Mass/Vol] 0.8 mg/dL 0.2 - 1 .3 mg/dL [facility] Calcium [Mass/Vol] 8.6 mg/dL 8.5 - 10. 2 mg/dL [facility] Chloride [Moles/Vol] 99 mmol/L 98 - 10 7 mmol/L [facility] CO2 [Moles/Vol] 21 mmol/L Low 22 - 30 mmol/L [facility] Creatinine [Mass/Vol] 1.66 mg/dL High 0.73 - 1.22 mg/dL [facility] GFR/1.73 sq M.predicted among non-blacks MDRD (S/P/Bld) [Vol rate/Area] 43 mL/min/{1.73_m2} Low - PINF [facility] Comment on above: Estimated Glomerular Filtration Rate (eGFR) is calculated using the 2020 CKD-EPI creatinine equation. This equation utilizes serum creatinine, sex, and age as parameters. The creatinine assay has traceable calibration to isotope dilution-mass spectrometry. Refer to KDIGO guidelines for clinical interpretation. In patients with unstable renal function, e.g. those with acute kidney injury, the eGFR may not accurately reflect actual GFR. Glucose [Mass/Vol] 535 mg/dL High 74 - 99 mg/dL [facility] Comment on above: The [place] Diabete s Association (ADA) provides guidance for cutoff values for fasting glucose and random glucose. The ADA defines fasting as no caloric intake for at least 8 hours. Fasting plasma glucose results between 100 to 125 mg/dL indicate increased risk for diabetes (prediabetes). Fasting plasma glucose results greater than or equal to 126 mg/dL meet the criteria for diagnosis of diabetes. In the absence of unequivocal hyperglycemia, results should be confirmed by repeat testing. In a patient with classic symptoms of hyperglycemia or hyperglycemic crisis, random plasma glucose results greater than or equal to 200 mg/dL meet the criteria for diagnosis of diabetes. Reference: Standards of Medical Care in Diabetes 2016, [place] [employer] Association. Diabetes Care. 2016.39(Suppl 1). Potassium [Moles/Vol] 4.6 mmol/L 3.7 - 5.1 mmol/L [facility] Protein [Mass/Vol] 5.9 g/dL Low 6.3 - 8.0 g/dL [facility] Sodium [Moles/Vol] 132 mmol/L Low 136 - 144 mmol/L [facility] Urea nitrogen [Mass/Vol] 37 mg/dL High 9 - 24 mg/dL [facility] Albumin [Mass/Vol] 3.1 g/dL Low 3.9-4.9 [facility] Comment on above: Order Comment: Speci men Type: BLOOD SPECIMENOrdering Facility: [facility] Address: [address] [place] [address] Performed By: #### 3 084-1, 27705-2, 2776-06 ####[facility] LABORATORYCLIA [id number] [address] STATES OF [facility] ALP [Catalytic activity/Vol] 98 U/L Normal 38-113 [facility] Comment on above: Order Comment: Speci men Type: BLOOD SPECIMENOrdering Facility: [facility] Address: [address] [place] [address] Performed By: #### 3 084-1, 64598-6, 2776-06 ####[facility] LABORATORYCLIA [id number] [place] [address] [place] ALT [Catalytic activity/Vol] 20 U/L Normal 10-54 [facility] Comment on above: Order Comment: Speci men Type: BLOOD SPECIMENOrdering Facility: [facility] Address: [address] [place] [address] Performed By: #### 3 084-1, , 2776-06 ####[facility] LABORATORYCLIA [id number] [address] STATES [facility] Anion gap [Moles/Vol] 12 mmol/L Normal 8-15 [facility] Comment on above: Order Comment: Speci men Type: BLOOD SPECIMENOrdering Facility: [facility] Address: [address] [place] [address] Performed By: #### 3 084-1, 41146-6, 2776-06 ####[facility] LABORATORYCLIA [id number] [address] [place] AST [Catalytic activity/Vol] 14 U/L Normal 14-40 [facility] Comment on above: Order Comment: Speci men Type: BLOOD SPECIMENOrdering Facility: [facility] Address: [address] [place] [address] Performed By: #### 3 084-1, 13956-1, 2776- ####[facility] LABORATORYCLIA [id number] [place] [address] [place] Bilirubin [Mass/Vol] 0.8 mg/dL Normal 0.2-1.3 [facility] Comment on above: Order Comment: Speci men Type: BLOOD SPECIMENOrdering Facility: [facility] Address: [address] [place] [address] Performed By: #### 3 084-1, 97348-5, 2776-06 ####[facility] LABORATORYCLIA [id number] [place] [address] [place] Calcium [Mass/Vol] 8.6 mg/dL Normal 8.5-10.2 [facility] Comment on above: Order Comment: Speci men Type: BLOOD SPECIMENOrdering Facility: [facility] Address: [address] [place] [address] Performed By: #### 3 084-1, 78779-3, 2776-06 ####[facility] LABORATORYCLIA [id number] [place] [address] [place] Chloride [Moles/Vol] 99 mmol/L Normal 98-107 [facility] Comment on above: Order Comment: Speci men Type: BLOOD SPECIMENOrdering Facility: [facility] Address: [address] [place] [address] Performed By: #### 3 084-1, , 2776-06 ####[facility] LABORATORYCLIA [id number] [place] [address] [place] CO2 [Moles/Vol] 21 mmol/L Low 22-30 [facility] Comment on above: Order Comment: Speci men Type: BLOOD SPECIMENOrdering Facility: [facility] Address: [address] [place] [address] Performed By: #### 3 084-1, 26874-9, 2776-06 ####[facility] LABORATORYCLIA [id number] [place] [address] [place] Creatinine [Mass/Vol] 1.66 mg/dL High 0.73-1.22 [facility] Comment on above: Order Comment: Speci men Type: BLOOD SPECIMENOrdering Facility: [facility] Address: [address] [place] [address] Performed By: #### 3 084-1, 02664-9, 2777-1 ####[facility] LABORATORYCLIA [id number] [place] [address] [place] eGFRcr SerPlBld CKD-EPI 2020 43 mL/min/1.73m??? Low >=60 [facility] Comment on above: Order Comment: Demarco harris Type: BLOOD SPECIMENOrdering Facility: [facility] Address: [address] [place] [address] Result Comment: Nancy mated Glomerular Filtration Rate (eGFR) is calculated using the 2020 CKD-EPI creatinine equation. This equation utilizes serum creatinine, sex, and age as parameters. The creatinine assay has traceable calibration to isotope dilution-mass spectrometry. Refer to KDIGO guidelines for clinical interpretation. In patients with unstable renal function, e.g. those with acute kidney injury, the eGFR may not accurately reflect actual GFR. Performed By: #### 3 084-1, 24469-0, 2771 ####[facility] LABORATORYCLIA [id number] [place] [address] [place] Glucose [Mass/Vol] 535 mg/dL High 74-99 [facility] Comment on above: Order Comment: Demarco harris Type: BLOOD SPECIMENOrdering Facility: [facility] Address: [address] [place] [address] Result Comment: The [place] Diabetes Association (ADA) provides guidance for cutoff values for fasting glucose and random glucose. The ADA defines fasting as no caloric intake for at least 8 hours. Fasting plasma glucose results between 100 to 125 mg/dL indicate increased risk for diabetes (prediabetes).Fasting plasma glucose results greater than or equal to 126 mg/dL meet the criteria for diagnosis of diabetes. In the absence of unequivocal hyperglycemia, results should be confirmed by repeat testing. In a patient with classic symptoms of hyperglycemia or hyperglycemic crisis, random plasma glucose results greater than or equal to 200 mg/dL meet the criteria for diagnosis of diabetes.Reference: Standards of Medical Care in Diabetes 2016, [place] [employer]. Diabetes Care. 2016.39(Suppl 1). Performed By: #### 3 084-1, 31931-8, 2776-06 ####[facility] LABORATORYCLIA [id number] [place] [address] [place] Potassium [Moles/Vol] 4.6 mmol/L Normal 3.7-5.1 [facility] Comment on above: Order Comment: Speci men Type: BLOOD SPECIMENOrdering Facility: [facility] Address: [address] [place] [address] Performed By: #### 3 084-1, 43088-0, 2776-06 ####[facility] LABORATORYCLIA [id number] [place] [id number] [place] Protein [Mass/Vol] 5.9 g/dL Low 6.3-8.0 [facility] Comment on above: Order Comment: Speci men Type: BLOOD SPECIMENOrdering Facility: [facility] Address: [address] [place] [address] Performed By: #### 3 084-1, , 2776-06 ####[facility] LABORATORYCLIA [id number] [place] [address] [place] Sodium [Moles/Vol] 132 mmol/L Low 136-144 [facility] Comment on above: Order Comment: Speci men Type: BLOOD SPECIMENOrdering Facility: [facility] Address: [address] [place] [address] Performed By: #### 3 084-1, , 2776-06 ####[facility] LABORATORYCLIA [id number] [place] [id number] [place] Urea nitrogen [Mass/Vol] 37 mg/dL High 9-24 [facility] Comment on above: Order Comment: Speci men Type: BLOOD SPECIMENOrdering Facility: [facility] Address: [address] [place] [address] Performed By: #### 3 084-1, 19889-5, 2776-06 ####[facility] LABORATORYCLIA [id number] [place] [id number] [place] ED PROV NOTEon 01-06-2025 ED PROV NOTE Normal [facility] FLOW CYTOMETRY FOR LEUKEMIA/ LYMPHOMA (FCLL) PERFORMABLEon 01-06-2025 FLOW CYTOMETRY ORDER STATUS Results will be reported under F case ID when completed Normal [facility] Comment on above: Order Comment: Speci men Type: BONE MARROW SPECIMENOrdering Facility: [facility] Address: [address] [place] [address] Performed By: #### F CLLP ####[facility] LABCLIA [id number] [place] [id number] [place] FLOW CYTOMETRY FOR LEUKEMIA/ LYMPHOMA (FCLL) REFLEXon 01-06-2025 DIAGNOSIS COMMENT Normal [facility] Comment on above: Order Comment: Speci men Type: BONE MARROW SPECIMENOrdering Facility: [facility] Address: [address] [place] [address] Performed By: #### F CLLRFLX ####[facility] LABCLIA [id number] [address] [place] FINAL PERFORMING LAB Normal [facility] Comment on above: Order Comment: Speci men Type: BONE MARROW SPECIMENOrdering Facility: [facility] Address: [address] [place] [address] Result Comment: Diag nostic interpretation performed at [facility], [address] [place] [address] CLIA# [id number] Director: Russ Hollis M.D. Performed By: #### F CLLRFLX ####[facility] LABCLIA [id number] [place] [id number] [place] FLOW CYTOMETRY RESULTS Normal [facility] Comment on above: Order Comment: Speci men Type: BONE MARROW SPECIMENOrdering Facility: [facility] Address: [address] [place] [address] Result Comment: Spec imen type: Bone marrow aspirate.Morphology comments: See associated bone marrow report ([id number]).Viability: 93%Flow Cytometry Bone Marrow ImmunophenotypingMarker Normal Cell Type Result (B Lymphocytes)CD2 T/NK cells NegativeCD3 T-cells NegativeCD4 T-cell subset NegativeCD5 T-cells PositiveCD7 T/NK-cells NegativeCD8 T-cell subset XdxzlrpqLT48 B-cell subset TyxfmqoePH74 Myeloid VmhkjdnqQG88/56 NK cells KolkerksSG48 B-cells IjbkiqixXS36 B-cells YhuikefoHT18 B-cells subset NdvehsgpVL20 Blast QfcfamtwBX06 [place]-leukocyte UooburcnID421 Dendritic LekfywhkJF010 B-cells Negativekappa/lambda B-cells Monotypic LambdaTRBC1 T-cells NegativeFlow cytometric analysis of the bone marrow aspirate reveals that 36% of total events have the CD45 and side scatter properties of lymphocytes.The lymphocytes are composed of a mixture of heterogeneous T cells (31%; CD4:CD8 ratio = 1.21), NK cells (3%) and B cells (66%). The B-cells display an abnormal immunophenotype and are positive for CD5, CD19, CD20, CD45, and lambda immunoglobulin light chain. The B cells are negative for CD10, CD23, CD123, CD200, and kappa immunoglobulin light chain. Performed By: #### F CLLRFLX ####[facility] LABIA [id number] [place] [address] [place] [facility] GROSS DESCRIPTION A. Bone Marrow Normal [facility] Comment on above: Order Comment: Speci men Type: BONE MARROW SPECIMENOrdering Facility: [facility] Address: [address] [place] [address] Result Comment: Rece ived low volume with small clot. Performed By: #### F CLLRFLX ####[facility] LABIA [id number] [place] [address] [place] INTERPRETATION Normal [facility] Comment on above: Order Comment: Speci men Type: BONE MARROW SPECIMENOrdering Facility: [facility] Address: [address] [place] [address] Result Comment: The findings are diagnostic of involvement by a CD5-positive B-cell lymphoproliferative disorder. Correlation with the clinical and bone marrow histopathologic findings is suggested for final classification. at 1217 EDT Performed By: #### F CLLRFLX ####[facility] LABCLIA [id number] [place] [address] [place] Gas and Carbon monoxide pane l (BldV)on 01-06-2025 BASE DEFICIT, VENOUS -9 mmol/L Low -2-0 [facility] Comment on above: Order Comment: Speci men Type: VENOUS BLOOD SPECIMENOrdering Facility: [facility] Address: [address] [place] [address] Performed By: #### 2 4344-4 ####[facility]IRATORYCLIA [id number] [facility] RESPIR[facility] [id number] [address] [address] Calcium.ionized (Bld) [Mass/Vol] 1.11 mmol/L Normal 1.08-1.30 [facility] Comment on above: Order Comment: Speci men Type: VENOUS BLOOD SPECIMENOrdering Facility: [facility] Address: [address] [place], [place] [address] Performed By: #### 2 4344-4 ####[facility] RESPIRATORYIA [id number] [facility] RES[facility]IRAT[facility] [id number] [address] [address] Carboxyhemoglobin (BldV) [Mass fraction] 2.2 % High 0.0-2.0 [facility] Comment on above: Order Comment: Speci men Type: VENOUS BLOOD SPECIMENOrdering Facility: [facility] Address: [address] [place] [address] Result Comment: Carb oxyhemoglobin Reference Range for Smokers: 2.0-8.0% Performed By: #### 2 4344-4 ####[facility]IRATORYCLIA [id number] [facility] [id number] [address] [address] CO2 (BldV) [Partial pressure] 32 mm[Hg] Low 42-55 [facility] Comment on above: Order Comment: Speci men Type: VENOUS BLOOD SPECIMENOrdering Facility: [facility] Address: [address] [place] [address] Performed By: #### 2 4344-4 ####[facility] RESPIRATORYCLIA [id number] [facility] [id number] [address] [address] CO2 adjusted to patient's actual temperature (BldV) [Partial pressure] Normal [facility] Comment on above: Order Comment: Speci men Type: VENOUS BLOOD SPECIMENOrdering Facility: [facility] Address: [address] [place] [address] Performed By: #### 2 4344-4 ####[facility] RESPIRATORYCLIA [id number] [facility] [id number] [address] [address] HCO3 (Bld) [Moles/Vol] 16 mmol/L Low 24-28 [facility] Comment on above: Order Comment: Speci men Type: VENOUS BLOOD SPECIMENOrdering Facility: [facility] Address: [address] [place] [address] Performed By: #### 2 4344-4 ####[facility]ATORYPROCTOR [facility] [id number] [facility] RESPIRATORY [id number] [address] [address] Hemoglobin (Bld) [Mass/Vol] 7.8 g/dL Low 13.0-17.0 [facility] Comment on above: Order Comment: Speci men Type: VENOUS BLOOD SPECIMENOrdering Facility: [facility] Address: [address] [place] [address] Performed By: #### 2 4344-4 ####[facility]ORYPROCTOR [facility] [id number] [facility] RESPIRATORY [id number] [address] [address] Lactate [Moles/Vol] 8.5 mmol/L High 0.5-2.2 [facility] Comment on above: Order Comment: Speci men Type: VENOUS BLOOD SPECIMENOrdering Facility: [facility] Address: [address] [place] [address] Performed By: #### 2 4344-4 ####[facility] RESPIRATORYIA [id number] [facility]OSPITAL RESPIRATORY [id number] [address] [address] Methemoglobin (Bld) [Mass fraction] % Normal 0.0-1.5 [facility] Comment on above: Order Comment: Speci men Type: VENOUS BLOOD SPECIMENOrdering Facility: [facility] Address: [address] [place] [address] Performed By: #### 2 4344-4 ####[facility] RESPIRATORYCLIA [id number] [facility]OSP[facility] RESPIRATORY [id number] [address] [address] O2 THERAPY RA=Room Air Normal [facility] Comment on above: Order Comment: Speci men Type: VENOUS BLOOD SPECIMENOrdering Facility: [facility] Address: [address] [place] [address] Performed By: #### 2 4344-4 ####[facility] RESPIRATORYCLIA [id number] HOSPITAL RESPIRATORY [id number] [address] [address] Oxygen (BldV) [Partial pressure] 50 mm[Hg] High 35-45 [facility] Comment on above: Order Comment: Speci men Type: VENOUS BLOOD SPECIMENOrdering Facility: [facility] Address: [address] [place] [address] Performed By: #### 2 4344-4 ####[facility] RESPIRATORYIA [id number] [facility]OSPITAL RESPIRATORY [id number] [address] [address] Oxygen adjusted to patient's actual temperature (BldV) [Partial pressure] Normal [facility] Comment on above: Order Comment: Speci men Type: VENOUS BLOOD SPECIMENOrdering Facility: [facility] Address: [address] [place] [address] Performed By: #### 2 4344-4 ####[facility] RESPIRATORYCLIA [id number] HOSPITAL RESPIRATORY [id number] [address] [address] Oxygen saturation in Venous blood 82 % Normal 60-85 [facility] Comment on above: Order Comment: Speci men Type: VENOUS BLOOD SPECIMENOrdering Facility: [facility] Address: [address] [place] [address] Performed By: #### 2 4344-4 ####[facility] RESPIRATORYCLIA [id number] HOSPITAL RESPIRATORY [id number] [address] [address] Oxyhemoglobin (BldV) [Mass fraction] 80 % Normal 60-85 [facility] Comment on above: Order Comment: Speci men Type: VENOUS BLOOD SPECIMENOrdering Facility: [facility] Address: [address] [place] [address] Performed By: #### 2 4344-4 ####[facility] RESPIRATORYIA [id number] [facility]OSPITAL RESPIRATORY [id number] [address] [address] pH (BldV) 7.31 [pH] Low 7.32-7.42 [facility] Comment on above: Order Comment: Speci men Type: VENOUS BLOOD SPECIMENOrdering Facility: [facility] Address: [address] [place] [address] Performed By: #### 2 4344-4 ####[facility] [id number] HOSPITAL RESPIRATORY [id number] [address] [address] pH adjusted to patient's actual temperature (BldV) Normal [facility] Comment on above: Order Comment: Speci men Type: VENOUS BLOOD SPECIMENOrdering Facility: [facility] Address: [address] [place] [address] Performed By: #### 2 4344-4 ####[facility] [id number] HOSPITAL RESPIRATORY [id number] [address] [address] Potassium [Moles/Vol] 5.1 mmol/L High 3.5-5.0 [facility] Comment on above: Order Comment: Speci men Type: VENOUS BLOOD SPECIMENOrdering Facility: [facility] Address: [address] [place] [address] Performed By: #### 2 4344-4 ####[facility] RESPIRATORYIA [id number] HOSPITAL RESPIRATORY [id number] [address] [address] HIGH SENSITIVITY TROPONIN T (INITIAL)on 01-06-2025 Troponin T.cardiac High sensitivity method [Mass/Vol] 41 ng/L High <12 [facility] Comment on above: Order Comment: Speci men Type: BLOOD SPECIMENOrdering Facility: [facility] Address: [address] [place] [address] Performed By: #### 1 9123-9, BHB, 39173-3, 3040-3, [id number] ####[facility] LABORATORYCLIA [id number] [address] HIGH SENSITIVITY TROPONIN T (SECOND)on 01-06-2025 Troponin T.cardiac High sensitivity method [Mass/Vol] 38 ng/L High <12 [facility] Comment on above: Order Comment: Speci men Type: BLOOD SPECIMENOrdering Facility: [facility] Address: [address] [place] [address] Performed By: #### L [id number] ####[facility] LABORATORYCLIA [id number] [place] [id number] [place] HISTORY PHYSICALon HISTORY PHYSICAL Normal [facility] Haptoglob SerPl-mCncon 01-06 Haptoglobin [Mass/Vol] 67 mg/dL Normal 31-238 [facility] Comment on above: Order Comment: Speci men Type: BLOOD SPECIMENOrdering Facility: [facility] Address: [address] [place] [address] Performed By: #### 4 542-7 ####[facility] LABIA [id number] [place] [address] [place] LDH SerPl-cCncon 01-06-2025 LDH [Catalytic activity/Vol] 371 U/L High 135-225 [facility] Comment on above: Order Comment: Speci men Type: BLOOD SPECIMENOrdering Facility: [facility] Address: [address] [place] [address] Performed By: #### 2 532-0, 19507-12 ####[facility] LABIA [id number] [place] [address] [place] Lipase SerPl-cCncon 01-07-20 25 Lipase [Catalytic activity/Vol] 57 U/L Normal 16-61 [facility] Comment on above: Order Comment: Speci men Type: BLOOD SPECIMENOrdering Facility: [facility] Address: [address] [place] [address] Performed By: #### 1 9123-9, BHB, 33949-0, 3040-3, [id number] ####[facility] LABORATORYCLIA [id number] [place] [address] [place] Magnesium SerPl-ncon 01-06 Magnesium [Mass/Vol] 2.0 mg/dL Normal 1.7-2.3 [facility] Comment on above: Order Comment: Speci men Type: BLOOD SPECIMENOrdering Facility: [facility] Address: [address] [place] [address] Performed By: #### 1 9123-9, B, 60663-5, 3040-3, [id number] ####[facility] LABORATORYCLIA [id number] [place] [id number] [place] NT-proBNP SerPl-[facility]son 01-06 Natriuretic peptide.B prohormone N-Terminal [Mass/Vol] 2588 pg/mL High <450 [facility] Comment on above: Order Comment: Speci [facility] Type: BLOOD SPECIMENOrdering Facility: [facility] Address: [address] [place] [address] Performed By: #### 3 3762-6 ####[facility] LABORATORYCLIA [id number] [place] [id number] [facility] No Panel Informationon 01-06 Interpretation and review of laboratory results Abnormal [facility] PATHOLOGIST INTERPRETATION C BC/DIFFOrdered By: Rina Yanez on 01-06-2025 Thermometer Production Worker review Shaji (Unsp spec) [Interp] No review performed. [facility] Pathologist Interpretation, CBCDIF The Pathologist Interpretation on this sample was cancelled because the hematology analyzer did not flag any parameters as requiring manual review. If there is a specific clinical concern for which you would like a pathologist to review the blood smear, please call Lab Client Services within 28 days. [facility] PATHOLOGIST INTERPRETATION C BC/DIFFon 01-06-2025 Thermometer Production Worker review Shaji (Unsp spec) [Interp] No review performed. Normal [facility] Comment on above: Order Comment: Speci men Type: BLOOD SPECIMENOrdering Facility: [facility] Address: [address] [place] [address] Performed By: #### 5 7782-5 ####[facility] LABORATORYCLIA [id number] [place] [address] [place]#### STFREV ####[facility] LABCLIA [id number] [place] [id number] [facility] [place] STAFF REVIEW, CBCDIF Normal [facility] Comment on above: Order Comment: Speci men Type: BLOOD SPECIMENOrdering Facility: [facility] Address: [address] [place] [address] Performed By: #### 5 7782-5 ####[facility] LABORATORYCLIA [id number] [place] [address] [place]#### STFREV ####[facility] LABCLIA [id number] [place] [address] [place] PHOSPHORUS INORGANICon 01-06 Phosphate [Mass/Vol] 2.5 mg/dL Low 2.7 - 4 .8 mg/dL [facility] Phosphate SerPl-mCncon 01-06 Phosphate [Mass/Vol] 2.5 mg/dL Low 2.7-4.8 [facility] Comment on above: Order Comment: Speci men Type: BLOOD SPECIMENOrdering Facility: [facility] Address: [address] [place] [address] Performed By: #### 3 084-1, 91253-0, 2777-1 ####[facility] LABORATORYCLIA [id number] [place] [address] [place] SEPSIS LACTATEon 01-06-2025 Lactate [Moles/Vol] 6.5 mmol/L High 0.5-2.0 [facility] Comment on above: Order Comment: Speci men Type: BLOOD SPECIMENOrdering Facility: [facility] Address: [address] [place] [address] Performed By: #### S LACT ####[facility] LABORATORYCLIA [id number] [place] [address] [place] URIC ACIDon 01-06-2025 Urate [Mass/Vol] 5.4 mg/dL 4.0 - 8.1 mg/dL [facility] Urate SerPl-mCncon Urate [Mass/Vol] 5.4 mg/dL Normal 4.0-8.[address] [facility] Comment on above: Order Comment: Speci men Type: BLOOD SPECIMENOrdering Facility: [facility] Address: [address] [place] [address] Performed By: #### 3 084-1, 71749-4, 2777-1 ####[facility] LABORATORYCLIA [id number] [place] [address] [place] Urate [Mass/Vol]on Interpretation and review of laboratory results Normal [facility] Urinalysis complete panel (U )on 01-06-2025 Bilirubin Ql (U) Negative Normal Negative [facility] Comment on above: Order Comment: Speci men Type: URINE SPECIMENOrdering Facility: [facility] Address: [address] [place] [address] Performed By: #### 2 4356-8 ####[facility] LABORATORYCLIA [id number] [place] [address] [place] Clarity (Unsp spec) Clear Normal Clear [facility] Comment on above: Order Comment: Speci men Type: URINE SPECIMENOrdering Facility: [facility] Address: [address] [place] [address] Performed By: #### 2 4356-8 ####[facility] LABORATORYCLIA [id number] [place] [address] [place] Color (U) Yellow Normal Yellow [facility] Comment on above: Order Comment: Speci men Type: URINE SPECIMENOrdering Facility: [facility] Address: [address] [place] [address] Performed By: #### 2 4356-8 ####[facility] LABORATORYCLIA [id number] [place] [address] [place] Glucose Test strip (U) [Mass/Vol] 3+ Abnormal Negative [facility] Comment on above: Order Comment: Speci men Type: URINE SPECIMENOrdering Facility: [facility] Address: [address] [place] [address] Performed By: #### 2 4356-8 ####[facility] LABORATORYCLIA [id number] [address] Hemoglobin Ql (U) Negative Normal Negative [facility] Comment on above: Order Comment: Speci men Type: URINE SPECIMENOrdering Facility: [facility] Address: [address] [place] [address] Performed By: #### 2 4356-8 ####[facility] LABORATORYCLIA [id number] [place] [address] [place] Ketones Ql (U) Negative Normal Negative [facility] Comment on above: Order Comment: Speci men Type: URINE SPECIMENOrdering Facility: [facility] Address: [address] [place] [address] Performed By: #### 2 4356-8 ####[facility] LABORATORYCLIA [id number] [address] [place] Leukocyte esterase Test strip Ql (U) Negative Normal Negative [facility] Comment on above: Order Comment: Speci men Type: URINE SPECIMENOrdering Facility: [facility] Address: [address] [place] [address] Performed By: #### 2 4356-8 ####[facility] LABORATORYCLIA [id number] [address] [place] Nitrite Ql (U) Negative Normal Negative [facility] Comment on above: Order Comment: Speci men Type: URINE SPECIMENOrdering Facility: [facility] Address: [address] [place] [address] Performed By: #### 2 4356-8 ####[facility] LABORATORYCLIA [id number] [address] [place] pH (U) 6.0 [pH] Normal 5.0-8.0 [facility] Comment on above: Order Comment: Speci men Type: URINE SPECIMENOrdering Facility: [facility] Address: [address] [place] [address] Performed By: #### 2 4356-8 ####[facility] LABORATORYCLIA [id number] [address] Protein (U) [Mass/Vol] Negative Normal Negative [facility] Comment on above: Order Comment: Speci men Type: URINE SPECIMENOrdering Facility: [facility] Address: [address] [place] [address] Performed By: #### 2 4356-8 ####[facility] LABORATORYCLIA [id number] [address] [place] RBC LM.HPF (Urine sed) [#/Area] 0-3 /HPF Normal 0-3 /HPF [facility] Comment on above: Order Comment: Speci men Type: URINE SPECIMENOrdering Facility: [facility] Address: [address] [place] [address] Performed By: #### 2 4356-8 ####[facility] LABORATORYCLIA [id number] [address] Specific gravity (U) [Rel density] 1.010 Normal 1.005-1.03 0 [facility] Comment on above: Order Comment: Speci men Type: URINE SPECIMENOrdering Facility: [facility] Address: [address] [place] [address] Performed By: #### 2 4356-8 ####[facility] LABORATORYCLIA [id number] [address] Urobilinogen Ql (U) 0.2 EU/dL Normal 0.2-1.0 EU/dL [facility] Comment on above: Order Comment: Speci men Type: URINE SPECIMENOrdering Facility: [facility] Address: [address] [place] [address] Performed By: #### 2 4356-8 ####[facility] LABORATORYCLIA [id number] [address] WBC LM.HPF (Urine sed) [#/Area] 0-5 /HPF Normal 0-5 /HPF [facility] Comment on above: Order Comment: Speci men Type: URINE SPECIMENOrdering Facility: [facility] Address: [address] [place] [address] Performed By: #### 2 4356-8 ####[facility] [id number] [place] [address] [place] XR CHEST 1V FRONTAL PORTon 0 01-06-2025 XR CHEST 1V FRONTAL PORT Normal [facility] CNPNon 01-05-2025 CNPN Normal [facility] BLOOD BANK PLACEHOLDER, ANTI BODY INTERPRETATIONon 01-01-2025 Blood Bank Report, Antibody Interpretation See Pathology Report [facility] Type and Screen Expiration 12/26/2024 23:59 [facility] BLOOD BANK REPORT, ANTIBODY INTERPRETATIONOrdered By: Umair Olivier on 01-01-2025 Pathology Interpretation c1resGRjGJPovTQcVAHlGes6iQG xh0N8oigsPJ0wlAtiiSf3qNajPP QgcrR9lPSuNStug5jhRGQ8x4rxy kokCHZxZIyvAd4igOXubPzuUbXf GIQmPTd8aL88EXWpyB8imOXyAHn 9XHBhcGVydzEyMjQwXHBhcGVyaD O2PNQzGM6tjfanSEeyVQevSLItx pK6OTBwzIQeJ2AsZMDkQY5vaifm ULA7YZwvDQRvBVD2DaAvEBGkm7M afhx1ImOxvHWlQBmslMMuuzedje TnWDIxSUGozJCjPC59HUKovFIrS UJrhgAtWJ78UNRkENNtBDCOvHWv lDYeakWZKMQzD2Luo3CqUF0zbI1 hiNRhFPEacD0gcTEQPAEnxgLuB5 AtIQPjDTUvflD1ETN1lB4tMoOMw GUgcmVmZXJlbmNlIGxhYiByZXBv yuYgIDMytK0nfVCifaAlBDusLYO 3MYOpwYzacH1oiVrakyC2SDH4WZ FuZCBhdXRvLWFudGktRSBpcyBpZ GVudGlmaWVkLiBBdXRvLWFudGkt FJK9cXYjRXBqkE6akIPcjmUcRRL DKQ6clFJrYXXlerYvpnHnLEJsxD NvBHDuhqCjchidXX4rQF0idHKzR NJhOHhosVGzWZYiYXB5jH2bzX80 iyPjuBJmy0r5qQiiZMFsAB2bDF4 tG1uhaatoTXotB48mezIvBBLku8 3rfBThevZzy05lJE2oYFBdITUdy vmiZNCtRLejGRLdMoNuVR7pTYPm YWIgYWxzbyByZXBvcnRzIGFudGl dc3H3IHSfZDC5zUBvvMfla7Qhgi 7zEJJfKDYmilRmu1TnV9dklNFdu Zhfb9sxJ4aprEPccc15DQJ8cUKn yONpDORdHOQinAPdDGqieB7vaHL oGbN0roNyi6C3h9oddaHoNLCjaS yzkzGvNCJDO0Hfwma2sHBsIIY7O 7jor8FwfeKhz0Gdw9UvkPHyvGOd BBAglHkrh6G7OTNxKVOiyHBrBX0 vdGVkLiBccGFyXHBhciBSZWQgY2 VelQIeb5CgZMK9hDJgpiNwiDQqJ LKsbO5hd0OaFSGkUI4dJf10mYIy dNdbqRAeSO6fbX8xjxm7qr2haVx nlz8yMX9jphOaPUNgDYUsHqnkbY pik47rBCXgz7GomF0jGYWhVKIpL 4VrJLagbWImJjJkRSR3dXYnPCJn u65hMQFkbkhngGPfsZpsZb1ktTL pIWKgufUXv8CwhZYptqOkhGUve1 46IHdlIHdpbGwgcHJvdmlkZSBhb dQyO3drCgSdwI6iK4Jtp2IwLMQw hF2es71pSLVzPoawWAGKM8IcLBA Dc2ffndTuYVY3DEYmZOQ1sG8oty FtBt3dqVBbPLFsbmLjmdTtkrBtm dLzw9f8vYDwaZ5fPTFuON1fIHZg GN83kpShn0F9w4jxhtGcamEtM79 naZS9dKKgnBt2hZC6JIQ4uW2aPJ Rwr4VyabPrKDnkvHWuGSJ1wQYkk ssinV9rkR3wd56qZJUzJnrkMXLl o6MvrLK8S2drru0sIEHDWsE0mdw 9liInDNvvwmJzPKD9vaOqYOElp7 G6VXDwaW1iJRTkFOkkEHM1uA2eU OahFeKpDJZkVDHqcm09g8ZzyA6c cGFyfQ== [facility] Work Phone: [facility] Work Phone: ANTIBODY ID PATIENTon 2024 ANTIBODY IDENTIFIED Auto Anti-E Normal [facility] Comment on above: Order Comment: Speci men Type: BLOOD SPECIMENOrdering Facility: [facility] Address: [address] [place] [address] Result Comment: Non- specific AbyTesting Performed at the [place] [facility]. Additional history of Warm Auto and Auto anti-E from [facility] Performed By: #### W KUP4, %MARYANN, [id number] ####CC MAIN BLOOD BANKCLIA [id number] [place] [address] [place] TYPE AND SCREEN EXPIRATION 01/01/2025 23:59 Normal [facility] Comment on above: Order Comment: Speci men Type: BLOOD SPECIMENOrdering Facility: [facility] Address: [address] [place] [address] Performed By: #### W KUP4, %MARYANN, [id number] ####CC MAIN BLOOD BANKCLIA [id number] [place] [address] [place] ANTIBODY WORKUP(4)on 025 Additional Specimens Received in lab [facility] ADDITIONAL SPECIMENS Received in lab Normal [facility] Comment on above: Order Comment: Speci men Type: BLOOD SPECIMENOrdering Facility: [facility] Address: [address] [place] [address] Performed By: #### W KUP4, %MARYANN, [id number] ####CC MAIN BLOOD BANKCLIA [id number] [place] [address] [place] BLOOD BANK COMMENTon [facility] BLOOD BANK COMMENT See Comment Normal [facility] Comment on above: Order Comment: Speci men Type: BLOOD SPECIMENOrdering Facility: [facility] Address: [address] [place] [address] Result Comment: Test ing Performed at the [place]. See Scanned Documents for [place] Report. Performed By: #### W KUP4, %MARYANN, [id number] ####CC MAIN BLOOD BANKCLIA [id number] [place] [address] [place] CBC panel Auto (Bld)on 12-29 Erythrocyte distribution width (RBC) [Ratio] 16.1 % High 11.5-15.0 [facility] Comment on above: Order Comment: Speci men Type: BLOOD SPECIMENOrdering Facility: [facility] Address: [address] [place] [address] Performed By: #### 5 8410-2 ###[facility] LABORATORYCLIA [id number] [place] [address] [place] Hematocrit (Bld) [Volume fraction] 29.4 % Low 39.0-51.0 [facility] Comment on above: Order Comment: Speci men Type: BLOOD SPECIMENOrdering Facility: [facility] Address: [address] [place] [address] Performed By: #### 5 8410-2 ###[facility] LABORATORYCLIA [id number] [place] [address] [place] Hemoglobin (Bld) [Mass/Vol] 9.3 g/dL Low 13.0-17.0 [facility] Comment on above: Order Comment: Speci men Type: BLOOD SPECIMENOrdering Facility: [facility] Address: [address] [place] [address] Performed By: #### 5 8410-2 ####[facility] LABORATORYCLIA [id number] [place] [address] [facility] MCH (RBC) [Entitic mass] 28.7 pg Normal 26.0-34.0 [facility] Comment on above: Order Comment: Speci men Type: BLOOD SPECIMENOrdering Facility: [facility] Address: [address] [place] [address] Performed By: #### 5 8410-2 ####[facility] LABORATORYCLIA [id number] [address] MCHC (RBC) [Mass/Vol] 31.6 g/dL Normal 30.5-36.0 [facility] Comment on above: Order Comment: Speci men Type: BLOOD SPECIMENOrdering Facility: [facility] Address: [address] [place] [address] Performed By: #### 5 8410-2 ####[facility] LABORATORYIA [id number] [address] STATES [facility] MCV (RBC) [Entitic vol] 90.7 fL Normal 80.0-100.0 [facility] Comment on above: Order Comment: Speci men Type: BLOOD SPECIMENOrdering Facility: [facility] Address: [address] [place] [address] Performed By: #### 5 8410-2 ####[facility] LABORATORYCLIA [id number] [address] Nucleated RBC (Bld) [#/Vol] 10*3/uL Normal <0.01 [facility] Comment on above: Order Comment: Speci men Type: BLOOD SPECIMENOrdering Facility: [facility] Address: [address] [place] [address] Performed By: #### 5 8410-2 ####[facility] LABORATORYCLIA [id number] [place] [address] [place] Platelet mean volume (Bld) [Entitic vol] 9.9 fL Normal 9.0-12.7 [facility] Comment on above: Order Comment: Speci men Type: BLOOD SPECIMENOrdering Facility: [facility] Address: [address] [place] [address] Performed By: #### 5 8410-2 ####[facility] LABORATORYCLIA [id number] [place] [address] [place] Platelets (Bld) [#/Vol] 266 10*3/uL Normal 150-400 [facility] Comment on above: Order Comment: Speci men Type: BLOOD SPECIMENOrdering Facility: [facility] Address: [address] [place] [address] Performed By: #### 5 8410-2 ####[facility] BAYIA [id number] [place] [address] [place] RBC (Bld) [#/Vol] 3.24 10*6/uL Low 4.20-6.00 [facility] Comment on above: Order Comment: Speci men Type: BLOOD SPECIMENOrdering Facility: [facility] Address: [address] [place] [address] Performed By: #### 5 8410-2 ####[facility] LABORATORYIA [id number] [place] [address] [place] WBC (Bld) [#/Vol] 7.64 10*3/uL Normal 3.70-11.00 [facility] Comment on above: Order Comment: Speci men Type: BLOOD SPECIMENOrdering Facility: [facility] Address: [address] [place] [address] Performed By: #### 5 8410-2 ####[facility] LABORATORYIA [id number] [place] [address] [place] CNOVon 12-29-2024 CNOV Normal [facility] metabolic 2000 panelon 12-29-2024 Albumin [Mass/Vol] 3.4 g/dL Low 3.9-4.9 [facility] Comment on above: Order Comment: Speci men Type: BLOOD SPECIMENOrdering Facility: [facility] Address: [address] [place] [address] Performed By: #### 2 4323-8 ####[facility] LABORATORYCLIA [id number] [place] [address] [place] ALP [Catalytic activity/Vol] 93 U/L Normal 38-113 [facility] Comment on above: Order Comment: Speci men Type: BLOOD SPECIMENOrdering Facility: [facility] Address: [address] [place] [address] Performed By: #### 2 4323-8 ####[facility] LABORATORYCLIA [id number] [place] [address] [place] ALT [Catalytic activity/Vol] 21 U/L Normal 10-54 [facility] Comment on above: Order Comment: Speci men Type: BLOOD SPECIMENOrdering Facility: [facility] Address: [address] [place] [address] Performed By: #### 2 4323-8 ####[facility] LABORATORYCLIA [id number] [place] [address] [place] Anion gap [Moles/Vol] 14 mmol/L Normal 8-15 [facility] Comment on above: Order Comment: Speci men Type: BLOOD SPECIMENOrdering Facility: [facility] Address: [address] [place] [address] Performed By: #### 2 4323-8 ####[facility] LABORATORYCLIA [id number] [place] [address] [place] AST [Catalytic activity/Vol] 16 U/L Normal 14-40 [facility] Comment on above: Order Comment: Speci men Type: BLOOD SPECIMENOrdering Facility: [facility] Address: [address] [place] [address] Performed By: #### 2 4323-8 ####[facility] LABORATORYCLIA [id number] [place] [address] [place] Bilirubin [Mass/Vol] 0.8 mg/dL Normal 0.2-1.3 [facility] Comment on above: Order Comment: Speci men Type: BLOOD SPECIMENOrdering Facility: [facility] Address: [address] [place] [address] Performed By: #### 2 4323-8 ####[facility] LABORATORYCLIA [id number] [place] [address] [place] Calcium [Mass/Vol] 9.0 mg/dL Normal 8.5-10.2 [facility] Comment on above: Order Comment: Speci men Type: BLOOD SPECIMENOrdering Facility: [facility] Address: [address] [place] [address] Performed By: #### 2 4323-8 ####[facility] LABORATORYIA [id number] [place] [address] [place] Chloride [Moles/Vol] 102 mmol/L Normal 98-107 [facility] Comment on above: Order Comment: Speci men Type: BLOOD SPECIMENOrdering Facility: [facility] Address: [address] [place], [place] [address] Performed By: #### 2 4323-8 ####[facility] LABORATORYCLIA [id number] [place] [address] [place] CO2 [Moles/Vol] 21 mmol/L Low 22-30 [facility] Comment on above: Order Comment: Speci men Type: BLOOD SPECIMENOrdering Facility: [facility] Address: [address] [place] [address] Performed By: #### 2 4323-8 ####[facility] LABORATORYIA [id number] [place] [address] [place] Creatinine [Mass/Vol] 1.63 mg/dL High 0.73-1.22 [facility] Comment on above: Order Comment: Speci men Type: BLOOD SPECIMENOrdering Facility: [facility] Address: [address] [place] [address] Performed By: #### 2 4323-8 ####[facility] LABORATORYCLIA [id number] [place] [address] [place] eGFRcr SerPlBld CKD-EPI 2020 44 mL/min/1.73m??? Low >=60 [facility] Comment on above: Order Comment: Demarco harris Type: BLOOD SPECIMENOrdering Facility: [facility] Address: [address] [place] [address] Result Comment: Nancy mated Glomerular Filtration Rate (eGFR) is calculated using the 2020 CKD-EPI creatinine equation. This equation utilizes serum creatinine, sex, and age as parameters. The creatinine assay has traceable calibration to isotope dilution-mass spectrometry. Refer to KDIGO guidelines for clinical interpretation. In patients with unstable renal function, e.g. those with acute kidney injury, the eGFR may not accurately reflect actual GFR. Performed By: #### 2 4323-8 ####[facility] LABORATORYCLIA [id number] [place] [address] [place] Glucose [Mass/Vol] 438 mg/dL High 74-99 [facility] Comment on above: Order Comment: Demarco kimberly Type: BLOOD SPECIMENOrdering Facility: [facility] Address: [address] [place] [address] Result Comment: The [place] Diabetes Association (ADA) provides guidance for cutoff values for fasting glucose and random glucose. The ADA defines fasting as no caloric intake for at least 8 hours. Fasting plasma glucose results between 100 to 125 mg/dL indicate increased risk for diabetes (prediabetes).Fasting plasma glucose results greater than or equal to 126 mg/dL meet the criteria for diagnosis of diabetes. In the absence of unequivocal hyperglycemia, results should be confirmed by repeat testing. In a patient with classic symptoms of hyperglycemia or hyperglycemic crisis, random plasma glucose results greater than or equal to 200 mg/dL meet the criteria for diagnosis of diabetes.Reference: Standards of Medical Care in Diabetes 2016, [place] Diabetes Association. Diabetes Care. 2016.39(Suppl 1). Performed By: #### 2 4323-8 ####[facility] LABORATORYCLIA [id number] [place] [address] [place] Potassium [Moles/Vol] 3.9 mmol/L Normal 3.7-5.1 [facility] Comment on above: Order Comment: Speci men Type: BLOOD SPECIMENOrdering Facility: [facility] Address: [address] [place] [address] Performed By: #### 2 4323-8 ####[facility] LABORATORYIA [id number] [place] [address] [place] Protein [Mass/Vol] 6.0 g/dL Low 6.3-8.0 [facility] Comment on above: Order Comment: Speci men Type: BLOOD SPECIMENOrdering Facility: [facility] Address: [address] [place] [address] Performed By: #### 2 4323-8 ####[facility] BAYIA [id number] [place] [address] [place] Sodium [Moles/Vol] 137 mmol/L Normal 136-144 [facility] Comment on above: Order Comment: Speci men Type: BLOOD SPECIMENOrdering Facility: [facility] Address: [address] [place] [address] Performed By: #### 2 4323-8 ####[facility]IR[facility] BAYIA [id number] [place] [address] [place] Urea nitrogen [Mass/Vol] 46 mg/dL High 9-24 [facility] Comment on above: Order Comment: Speci men Type: BLOOD SPECIMENOrdering Facility: [facility] Address: [address] [place] [address] Performed By: #### 2 4323-8 ####[facility] BAYIA [id number] [place] [address] [place] HbA1c (Bld)on 12-29-2024 Average glucose Estimated from glycated hemoglobin (Bld) [Mass/Vol] 143 mg/dL Normal [facility] Comment on above: Order Comment: Speci men Type: BLOOD SPECIMENOrdering Facility: [facility] Address: [address] [place] [address] Result Comment: eAG: (Estimated average glucose) is a calculated value from HgbA1c and is promotions representative of the average blood glucose level in the last 2-3 month period. Performed By: #### 5 5454-3 ####[facility] LABCLIA [id number] [facility] [place] [address] [place] HbA1c (Bld) [Mass fraction] 6.6 % High 4.3-5.6 [facility] Comment on above: Order Comment: Speci men Type: BLOOD SPECIMENOrdering Facility: [facility] Address: [address] [place] [address] Result Comment: Amer [place] Diabetes Association guidelines indicate that patients with HgbA1c in the range 5.7-6.4% are at increased risk for development of diabetes, and intervention by lifestyle modification may be beneficial. HgbA1c greater or equal to 6.5% is considered diagnostic of diabetes. Performed By: #### 5 5454-3 ####[facility] LABCLIA [id number] [place] [address] [place] Lipid 1996 panelon 5 Cholesterol [Mass/Vol] 161 mg/dL Normal <200 [facility] Comment on above: Order Comment: Speci men Type: BLOOD SPECIMENOrdering Facility: [facility] Address: [address] [place] [address] Result Comment: <200 mg/dL, Desirable 200-239 mg/dL, Borderline high>239 mg/dL, High Performed By: #### 2 4331-1 ####[facility] LABIA [id number] [place] [address] [place] Cholesterol in HDL [Mass/Vol] 35 mg/dL Low >39 [facility] Comment on above: Order Comment: Speci men Type: BLOOD SPECIMENOrdering Facility: [facility] Address: [address] [place] [address] Result Comment: 40-5 9 mg/dL, Acceptable>59 mg/dL, High: Negative risk factor for coronary heart disease<40 mg/dL, Low: Positive risk factor for coronary heart disease Performed By: #### 2 4331-1 ####[facility] LABCLIA [id number] [place] [address] [place] Cholesterol in LDL [Mass/Vol] 99 mg/dL Normal <100 [facility] Comment on above: Order Comment: Speci men Type: BLOOD SPECIMENOrdering Facility: [facility] Address: [address] [place] [address] Result Comment: <100 mg/dL, Optimal 100-129 mg/dL, Near optimal/above optimal 130-159 mg/dL, Borderline high 160-189 mg/dL, High>189 mg/dL, Very highSecondary prevention optimal LDL Cholesterol levels are recommended to be <70 mg/dLLDL cholesterol is calculated using the Edouard-NIH equation. Performed By: #### 2 4331-1 ####[facility] LABCLIA [id number] [place] [address] [place] Cholesterol in LDL/Cholesterol in HDL [Mass ratio] 2.83 {ratio} High <2.54 [facility] Comment on above: Order Comment: Speci men Type: BLOOD SPECIMENOrdering Facility: [facility] Address: [address] [place] [address] Result Comment: Refvinicio oconnell:1. National Cholesterol Education Program ATP III Guideline At-A-Glance Quick Desk Reference: National Heart, Lung, and Blood [place]. National Institutes of Health. 2001: NIH Publication No. 01-3305.2. An International Atherosclerosis Society position paper: global recommendations for the management of dyslipidemia: executive summary, Atherosclerosis. 2014: 232(2):410-413. Performed By: #### 2 4331-1 ####[facility] LABCLIA [id number] [place] [address] [place] Cholesterol in VLDL [Mass/Vol] 25 mg/dL Normal <30 [facility] Comment on above: Order Comment: Speci men Type: BLOOD SPECIMENOrdering Facility: [facility] Address: [address] [place], [place] [address] Performed By: #### 2 4331-1 ####[facility] LABCLIA [id number] [facility] [address] [address] [place] Cholesterol non HDL [Mass/Vol] 126 mg/dL Normal <130 [facility] Comment on above: Order Comment: Speci men Type: BLOOD SPECIMENOrdering Facility: [facility] Address: [address] [place], [place] [address] Result Comment: <130 mg/dL, Optimal 130-159 mg/dL, Near optimal/above optimal 160-189 mg/dL, Borderline high 190-219 mg/dL, High>219 mg/dL, Very highSecondary prevention optimal non HDL Cholesterol levels are recommended to be <100 mg/dL Performed By: #### 2 4331-1 ####[facility] LABCLIA [id number] [place] [address] [place] Cholesterol.total/Veronika sterol in HDL [Mass ratio] 4.60 {ratio} Normal <5.10 [facility] Comment on above: Order Comment: Speci men Type: BLOOD SPECIMENOrdering Facility: [facility] Address: [address] [place], [place] [address] Performed By: #### 2 4331-1 ####[facility] LABCLIA [id number] [facility] [place] [id number] [place] FASTING TIME 12 hrs Normal [facility] Comment on above: Order Comment: Speci men Type: BLOOD SPECIMENOrdering Facility: [facility] Address: [address] [place], [place] [address] Performed By: #### 2 4331-1 ####[facility] LABCLIA [id number] [facility] [address] [address] [place] Triglyceride [Mass/Vol] 154 mg/dL High <150 [facility] Comment on above: Order Comment: Speci men Type: BLOOD SPECIMENOrdering Facility: [facility] Address: [address] [place] [address] Result Comment: <150 mg/dL, Normal 150-199 mg/dL, Borderline high 200-499 mg/dL, High>499 mg/dL, Very high Performed By: #### 2 4331-1 ####[facility] LABCLIA [id number] [place] [address] [place] CHEST WO IVCONon 12-28-[address] CHEST WO IVCON Normal [facility] CT Chest WO contraston 12-27 IMPRESSION: Very mild dependent atelectasis. No suspicious mass or adenopathy in the chest. Cardiomegaly. Trace pericardial fluid. Enlarged spleen. Bilateral nephrolithiasis Research Dietitian: MICHELE Transcribe Date/Time: Dec 27 2024 12:22P Dictated by : ANTONIO NAILS MD This examination was interpreted and the report reviewed and electronically signed by: ANTONIO NAILS MD on Dec 27 2024 1:45PM [facility] * * *Final Report* * * DATE OF EXAM: Dec 27 2024 10:59AM [facility] - CT CHEST WO IVCON / PROCEDURE REASON: R59.0-Localized enlarged lymph nodes * * * * Physician Interpretation * * * * EXAMINATION: CHEST CT WITHOUT CONTRAST CLINICAL HISTORY: Lymphadenopathy Technique: Spiral CT acquisition of the chest from the thoracic inlet to the upper abdomen without contrast. MQ: CTCWO_6 CT Radiation dose: Integrated Dose-length product (DLP) for this visit = mGy*cm CT Dose Reduction Employed: Automated exposure control(AEC) and iterative recon Comparison: Chest x-ray 08/09/2021 RESULT: Limitations: None. Lines, tubes, and devices: None. Lung parenchyma and airways: Mild dependent atelectasis. No consolidation. No suspicious pulmonary nodule. The central airways are patent. Pleural space: No pleural effusion. No pleural thickening. Lower neck, lymph nodes, and mediastinum: The imaged thyroid gland is normal. No lymphadenopathy in the supraclavicular, axillary, mediastinal, or hilar regions. Heart, pericardium, and thoracic vessels: The thoracic aorta and main pulmonary artery are normal in caliber. The cardiac chambers are enlarged. Coronary artery atherosclerotic calcifications are noted, although the study is not optimized for coronary assessment. Trace pericardial fluid. Bones and soft tissues: No destructive bone lesion. Chest wall is unremarkable. Upper abdomen: Enlarged spleen. 18.5 cm in AP diameter. Bilateral nephrolithiasis Localizer images: No additional findings. [facility] Provider, Georgina Narinder degroot [place] - 12/27/2024 * * *Final Report* * * DATE OF EXAM: Dec 27 2024 10:59AM [facility] 0541 - CT CHEST WO IVCON / PROCEDURE REASON: R59.0-Localized enlarged lymph nodes * * * * Physician Interpretation * * * * EXAMINATION: CHEST CT WITHOUT CONTRAST CLINICAL HISTORY: Lymphadenopathy Technique: Spiral CT acquisition of the chest from the thoracic inlet to the upper abdomen without contrast. MQ: CTCWO_6 CT Radiation dose: Integrated Dose-length product (DLP) for this visit = mGy*cm CT Dose Reduction Employed: Automated exposure control(AEC) and iterative recon Comparison: Chest x-ray 08/09/2021 RESULT: Limitations: None. Lines, tubes, and devices: None. Lung parenchyma and airways: Mild dependent atelectasis. No consolidation. No suspicious pulmonary nodule. The central airways are patent. Pleural space: No pleural effusion. No pleural thickening. Lower neck, lymph nodes, and mediastinum: The imaged thyroid gland is normal. No lymphadenopathy in the supraclavicular, axillary, mediastinal, or hilar regions. Heart, pericardium, and thoracic vessels: The thoracic aorta and main pulmonary artery are normal in caliber. The cardiac chambers are enlarged. Coronary artery atherosclerotic calcifications are noted, although the study is not optimized for coronary assessment. Trace pericardial fluid. Bones and soft tissues: No destructive bone lesion. Chest wall is unremarkable. Upper abdomen: Enlarged spleen. 18.5 cm in AP diameter. Bilateral nephrolithiasis Localizer images: No additional findings. IMPRESSION IMPRESSION: Very mild dependent atelectasis. No suspicious mass or adenopathy in the chest. Cardiomegaly. Trace pericardial fluid. Enlarged spleen. Bilateral nephrolithiasis Research Dietitian: MICHELE Transcribe Date/Time: Dec 27 2024 12:22P Dictated by : ANTONIO NAILS MD This examination was interpreted and the report reviewed and electronically signed by: ANTONIO NAILS MD on Dec 27 2024 1:45PM EST [facility] CT Chest WO contrastOrdered By: Ccf Provider on 12-27-[address] [facility] [address] NECK SOFT TISSUE WO IVCON on 12-27-2024 CT NECK SOFT TISSUE WO IVCON Normal [facility] CT Neck WO contraston 2024 IMPRESSION: Left supraclavicular pathological lymph node conglomerate 37 x 28 mm. Increase in size and number of left-sided cervical lymph nodes compared to the right without additional pathologically enlarged lymph nodes by size criteria. Infiltrative expansile appearance of the inferior aspect of the left parotid gland suggest other focal inflammatory process or infiltrative neoplasm. Research Dietitian: PSCB Transcribe Date/Time: Dec 27 2024 11:08A Dictated by : RONNY YU MD This examination was interpreted and the report reviewed and electronically signed by: RONNY YU MD on Dec 27 2024 11:14AM [facility] * * *Final Report* * * DATE OF EXAM: Dec 27 2024 10:59AM [facility] [place] - CT NECK SOFT TISSUE WO IVCON / PROCEDURE REASON: R59.0-Localized enlarged lymph nodes * * * * Physician Interpretation * * * * CT NECK SOFT TISSUE WO IVCON CLINICAL HISTORY: TECHNIQUE: A series of contiguous helical scans were performed from the skull base to the aortic arch without intravenous contrast. CT Radiation dose: Integrated Dose-length product (DLP) for this visit = 727 mGy*cm. CT Dose Reduction Employed: Automated exposure control(AEC) and iterative recon COMPARISON: RESULT: Localizer images: Postoperative/Treatment Change: None apparent. Aerodigestive tract: Normal. Major salivary glands: Infiltrative increased attenuation in the inferior portion of the left parotid gland with mildly expansile appearance since prior parotid imaging studies for example CT angiography of 07/23/2021 suggests infiltrative neoplasm or focal inflammatory process.. Thyroid gland: Normal. Lymph Nodes: Left supraclavicular lymphadenopathy series 2 image 100 measuring approximately 37 x 28 mm on this image. Scattered additional left cervical chain lymph nodes are normal in size but increased in number from what is most commonly expected and asymmetrically increased in size and number from the prior study and right cervical chain. Carotid/Parapharyngeal/Retr opharyngeal Spaces: Vascular patency is not assessed on this non-contrast exam. Atherosclerotic calcifications are present. Orbits, Face and Skull Base: Polyp or retention cyst in the sphenoid sinus. Paranasal sinuses and mastoid air cells are otherwise grossly clear. Otherwise normal. Imaged intracranial contents: No intracranial mass effect or hydrocephalus. Cervical spine and remaining osseous structures: No osteolytic or osteoblastic process. Moderate cervical spondylosis. Lung apices: For detailed intrathoracic findings, please see concurrent CT chest which is reported under a separate accession. Other: Not applicable. [facility] Provider, Georgina Barcenas [place] - 12/27/2024 * * *Final Report* * * DATE OF EXAM: Dec 27 2024 10:59AM [facility] 0509 - CT NECK SOFT TISSUE WO IVCON / PROCEDURE REASON: R59.0-Localized enlarged lymph nodes * * * * Physician Interpretation * * * * CT NECK SOFT TISSUE WO IVCON CLINICAL HISTORY: TECHNIQUE: A series of contiguous helical scans were performed from the skull base to the aortic arch without intravenous contrast. CT Radiation dose: Integrated Dose-length product (DLP) for this visit = 727 mGy*cm. CT Dose Reduction Employed: Automated exposure control(AEC) and iterative recon COMPARISON: RESULT: Localizer images: Postoperative/Treatment Change: None apparent. Aerodigestive tract: Normal. Major salivary glands: Infiltrative increased attenuation in the inferior portion of the left parotid gland with mildly expansile appearance since prior parotid imaging studies for example CT angiography of 07/23/2021 suggests infiltrative neoplasm or focal inflammatory process.. Thyroid gland: Normal. Lymph Nodes: Left supraclavicular lymphadenopathy series 2 image 100 measuring approximately 37 x 28 mm on this image. Scattered additional left cervical chain lymph nodes are normal in size but increased in number from what is most commonly expected and asymmetrically increased in size and number from the prior study and right cervical chain. Carotid/Parapharyngeal/Retr opharyngeal Spaces: Vascular patency is not assessed on this non-contrast exam. Atherosclerotic calcifications are present. Orbits, Face and Skull Base: Polyp or retention cyst in the sphenoid sinus. Paranasal sinuses and mastoid air cells are otherwise grossly clear. Otherwise normal. Imaged intracranial contents: No intracranial mass effect or hydrocephalus. Cervical spine and remaining osseous structures: No osteolytic or osteoblastic process. Moderate cervical spondylosis. Lung apices: For detailed intrathoracic findings, please see concurrent CT chest which is reported under a separate accession. Other: Not applicable. IMPRESSION IMPRESSION: Left supraclavicular pathological lymph node conglomerate 37 x 28 mm. Increase in size and number of left-sided cervical lymph nodes compared to the right without additional pathologically enlarged lymph nodes by size criteria. Infiltrative expansile appearance of the inferior aspect of the left parotid gland suggest other focal inflammatory process or infiltrative neoplasm. Research Dietitian: PSCAlireza Transcribe Date/Time: Dec 27 2024 11:08A Dictated by : RONNY YU MD This examination was interpreted and the report reviewed and electronically signed by: RONNY YU MD on Dec 27 2024 11:14AM EST [facility] No Panel Informationon 12-27 Radiology Study observation (narrative) [facility] Patient Letteron 12-26-2024 Patient Letter (Inserted Image. Portia ble to display) December 26, 2024 TERE BARONE [address] [place] [address] Dear Tere, You are due for your follow up appointment with u in January. Please call the office at [phone] to schedule. Thank you, [facility] , Normal [facility] ABO and Rh group panel (Bld) Ordered By: Augustin Hernandez on 12-24-2024 ABO group Nom (Bld) A [facility] Rh Nom (Bld) Invalid result [facility] TYPE + SCREENOrdered By: Emil Acosta on 12-24-2024 ABO group Nom (Bld) Invalid result C [facility] Blood group antibody screen Ql Positive Abnormal [facility] Comment on above: Corrected result: Pr eviously reported as Positive on 12/23/2024 at 5:38 PM EDT. This is an addended report. These results have been addended to a previously final verified report. Interpretation and review of laboratory results Abnormal [facility] Rh Nom (Bld) Positive [facility] Type and Screen Expiration 12/26/2024 23:59 [facility] Comment on above: Corrected result: Pr eviously reported as 12/26/2024 23:59 on 12/23/2024 at 5:38 PM EDT. [facility] ABO AND RH ONLYon 12-23-2024 ABO A Normal [facility] Comment on above: Order Comment: Speci men Type: BLOOD SPECIMENOrdering Facility: [facility] Address: [address] [place] [address] Performed By: #### B BABINT ####[facility] BLOOD BANKCLIA [id number] [place] [address] [facility]#### TSCR ####[facility] BLOOD BANKCLIA [id number] [address] BLOOD BANKCLIA [id number] [address]#### ASCR, ABORH ####[facility] BLOOD BANKCLIA [id number] [address] [place] Rh Nom (Bld) Invalid result Normal [facility] Comment on above: Order Comment: Speci men Type: BLOOD SPECIMENOrdering Facility: [facility] Address: [address] [place] [address] Performed By: #### B BABINT ####[facility] BLOOD BANKCLIA [id number] [address]#### TSCR ####[facility] B[facility] BANKCLIA [id number] [address] BLOOD BANKCLIA [id number] [address] [place]#### ASCR, [place]H ####[facility] BLOOD BANKCLIA [id number] [address] [place] ANTIBODY SCREENon 12-23-2024 Blood group antibody screen Ql Positive Abnormal [facility] Comment on above: Testing performed wi PEG Interpretation and review of laboratory results Abnormal [facility] Type and Screen Expiration 12/26/2024 23:59 [facility] BLOOD BANK PLACEHOLDER, ANTI BODY INTERPRETATIONon 12-23-2024 BLOOD BANK REPORT, ANTIBODY INTERPRETATION See Pathology Report Normal [facility] Comment on above: Order Comment: Speci men Type: BLOOD SPECIMENOrdering Facility: [facility] Address: [address] [place] [address] Performed By: #### B BABINT ####[facility] [place] BLOOD BANKCLIA [id number] [address] [place]#### TSCR ####[facility] BLOOD BANKCLIA [id number] [place] [address] [facility] BLOOD BANKCLIA [id number] [address]#### ASCR, [place] ####[facility] BLOOD BANKCLIA [id number] [address] BLOOD BANK REPORT, ANTIBODY INTERPRETATIONon 12-23-2024 PATHOLOGY INTERPRETATION Normal [facility] Comment on above: Order Comment: Speci men Type: BLOOD SPECIMENOrdering Facility: [facility] Address: [address] [place] [address] Result Comment: The current sample is sent to the [place] [facility] for testing. 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 Auto-anti-E with a positive ALIX may be an incidental finding, or may be related to autoimmune hemolytic anemia. Clinical correlation is recommended.The reference lab also reports antibody reactivity of no apparent specificity which is not expected to cause hemolytic transfusion reactions. Activities suggestive of warm auto antibody are also noted.Red cell rouleaux is also demonstrable. Rouleaux is an in vitro phenomenon caused by plasma proteins that can interfere with blood bank testing.For transfusion: we will provide antiglobulin crossmatch-compatible RBCs. However, warm autoantibodies can interfere with blood bank pre-transfusion and compatibility testing, potentially resulting in incompatible crossmatches. RBC units may need to be issued under Exceptional Release protocol. at 1227 EDT Performed By: #### B BRABI ####H[facility] LABORATORYCLIA [id number] [address] CBC panel Auto (Bld)on 12-23 Erythrocyte distribution width (RBC) [Ratio] 16.3 % High 11.5 - 15.0 % [facility] Hematocrit (Bld) [Volume fraction] 30.6 % Low 39.0 - 51.0 % [facility] Hemoglobin (Bld) [Mass/Vol] 9.7 g/dL Low 13.0 - 17.0 g/dL [facility] MCH (RBC) [Entitic mass] 28.8 pg 26.0 - 34.0 pg [facility] MCHC (RBC) [Mass/Vol] 31.7 g/dL 30.5 - 36.0 g/dL [facility] MCV (RBC) [Entitic vol] 90.8 fL 80.0 - 100.0 fL [facility] Nucleated RBC (Bld) [#/Vol] NINF [facility] Platelet mean volume (Bld) [Entitic vol] 9.2 fL 9.0 - 12.7 fL [facility] Platelets (Bld) [#/Vol] 270 10*3/uL [facility] RBC (Bld) [#/Vol] 3.37 10*6/uL Low 4.20 - 6.00 m/uL [facility] WBC (Bld) [#/Vol] 9.34 10*3/uL [facility] Erythrocyte distribution width (RBC) [Ratio] 16.3 % High 11.5-15.0 [facility] Comment on above: Order Comment: Speci men Type: BLOOD SPECIMENOrdering Facility: [facility] Address: [address] [place] [address] Performed By: #### 5 8410-2, 58933-3 ####JAVIER LABORATORYCLIA [id number] [address] STATES OF [facility] Hematocrit (Bld) [Volume fraction] 30.6 % Low 39.0-51.0 [facility] Comment on above: Order Comment: Speci men Type: BLOOD SPECIMENOrdering Facility: [facility] Address: [address] [place] [address] Performed By: #### 5 8410-2, 69804-5 ####HERRERA LABORATORYCLIA [id number] [address] [place] Hemoglobin (Bld) [Mass/Vol] 9.7 g/dL Low 13.0-17.0 [facility] Comment on above: Order Comment: Speci men Type: BLOOD SPECIMENOrdering Facility: [facility] Address: [address] [place] [address] Performed By: #### 5 8410-2, 75659-3 ####HERRERA LABORATORYCLIA [id number] [address] MCH (RBC) [Entitic mass] 28.8 pg Normal 26.0-34.0 [facility] Comment on above: Order Comment: Speci men Type: BLOOD SPECIMENOrdering Facility: [facility] Address: [address] [place] [address] Performed By: #### 5 8410-2, 40229-0 ####HERRERA LABORATORYCLIA [id number] [address] MCHC (RBC) [Mass/Vol] 31.7 g/dL Normal 30.5-36.0 [facility] Comment on above: Order Comment: Speci men Type: BLOOD SPECIMENOrdering Facility: [facility] Address: [address] [place] [address] Performed By: #### 5 8410-2, 40971-7 ####HERRERA LABORATORYCLIA [id number] [address] MCV (RBC) [Entitic vol] 90.8 fL Normal 80.0-100.0 [facility] Comment on above: Order Comment: Speci men Type: BLOOD SPECIMENOrdering Facility: [facility] Address: [address] [place] [address] Performed By: #### 5 8410-2, 37041-9 ####HERRERA LABORATORYCLIA [id number] [address] Nucleated RBC (Bld) [#/Vol] 10*3/uL Normal <0.01 [facility] Comment on above: Order Comment: Speci men Type: BLOOD SPECIMENOrdering Facility: [facility] Address: [address] [place] [address] Performed By: #### 5 8410-2, 60216-9 ####HERRERA LABORATORYCLIA [id number] [place] [address] [place] Platelet mean volume (Bld) [Entitic vol] 9.2 fL Normal 9.0-12.7 [facility] Comment on above: Order Comment: Speci men Type: BLOOD SPECIMENOrdering Facility: [facility] Address: [address] [place] [address] Performed By: #### 5 8410-2, 95941-9 ####HERRERA LABORATORYCLIA [id number] [place] [address] [place] Platelets (Bld) [#/Vol] 270 10*3/uL Normal 150-400 [facility] Comment on above: Order Comment: Speci men Type: BLOOD SPECIMENOrdering Facility: [facility] Address: [address] [place] [address] Performed By: #### 5 8410-2, 89025-8 ####HERRERA LABORATORYCLIA [id number] [place] [address] [place] RBC (Bld) [#/Vol] 3.37 10*6/uL Low 4.20-6.00 [facility] Comment on above: Order Comment: Speci men Type: BLOOD SPECIMENOrdering Facility: [facility] Address: [address] [place] [address] Performed By: #### 5 8410-2, 69217-2 ####HERRERA LABORATORYCLIA [id number] [place] [address] [place] WBC (Bld) [#/Vol] 9.34 10*3/uL Normal 3.70-11.00 [facility] Comment on above: Order Comment: Speci men Type: BLOOD SPECIMENOrdering Facility: [facility] Address: [address] [place] [address] Performed By: #### 5 8410-2, 48937-7 ####HERRERA LABORATORYCLIA [id number] [place] [address] [place] CNOVSPon 12-23-2024 CNOVSP Normal [facility] MAE DIRECTon 12-23-2024 DAGT, ANTI-C3B,C3D Positive Normal [facility] Comment on above: Order Comment: Speci men Type: BLOOD SPECIMENOrdering Facility: [facility] Address: [address] [place] [address] Performed By: #### D AGT ####[facility] BLOOD BANKCLIA [id number] [place] [address] [place] DAGT, ANTI-IGG Positive Normal [facility] Comment on above: Order Comment: Speci men Type: BLOOD SPECIMENOrdering Facility: [facility] Address: [address] [place] [address] Performed By: #### D AGT ####HERRERA BLOOD BANKIA [id number] [place] [address] [place] DAGT, POLYSPECIFIC AHG Positive Normal Cl [facility] Comment on above: Order Comment: Speci men Type: BLOOD SPECIMENOrdering Facility: [facility] Address: [address] [place] [address] Performed By: #### D AGT ####[facility] BLOOD [facility]ENTERIA [id number] [address] [place] [id number] [facility] [place] Comprehensive metabolic 2000 panelon 12-23-2024 Albumin [Mass/Vol] 3.4 g/dL Low 3.9 - 4.9 g/dL [facility] ALP [Catalytic activity/Vol] 96 U/L 38 - 113 U/L [facility] ALT [Catalytic activity/Vol] 19 U/L 10 - 54 U/L [facility] Anion gap [Moles/Vol] 13 mmol/L 8 - 15 mmol/L [facility] AST [Catalytic activity/Vol] 21 U/L 14 - 40 U/L [facility] Bilirubin [Mass/Vol] 1.1 mg/dL 0.2 - 1 .3 mg/dL [facility] Calcium [Mass/Vol] 8.7 mg/dL 8.5 - 10. 2 mg/dL [facility] Chloride [Moles/Vol] 105 mmol/L 98 - 10 7 mmol/L [facility] CO2 [Moles/Vol] 19 mmol/L Low 22 - 30 mmol/L [facility] Creatinine [Mass/Vol] 1.37 mg/dL High 0.73 - 1.22 mg/dL [facility] GFR/1.73 sq M.predicted among non-blacks MDRD (S/P/Bld) [Vol rate/Area] 54 mL/min/{1.73_m2} Low - PINF [facility] Comment on above: Estimated Glomerular Filtration Rate (eGFR) is calculated using the 2020 CKD-EPI creatinine equation. This equation utilizes serum creatinine, sex, and age as parameters. The creatinine assay has traceable calibration to isotope dilution-mass spectrometry. Refer to KDIGO guidelines for clinical interpretation. In patients with unstable renal function, e.g. those with acute kidney injury, the eGFR may not accurately reflect actual GFR. Glucose [Mass/Vol] 319 mg/dL High 74 - 99 mg/dL [facility] Comment on above: The [place] Diabete s Association (ADA) provides guidance for cutoff values for fasting glucose and random glucose. The ADA defines fasting as no caloric intake for at least 8 hours. Fasting plasma glucose results between 100 to 125 mg/dL indicate increased risk for diabetes (prediabetes). Fasting plasma glucose results greater than or equal to 126 mg/dL meet the criteria for diagnosis of diabetes. In the absence of unequivocal hyperglycemia, results should be confirmed by repeat testing. In a patient with classic symptoms of hyperglycemia or hyperglycemic crisis, random plasma glucose results greater than or equal to 200 mg/dL meet the criteria for diagnosis of diabetes. Reference: Standards of Medical Care in Diabetes 2016, [place] Diabetes Association. Diabetes Care. 2016.39(Suppl 1). Interpretation and review of laboratory results Abnormal [facility] Potassium [Moles/Vol] 3.9 mmol/L 3.7 - 5.1 mmol/L [facility] Protein [Mass/Vol] 6.4 g/dL 6.3 - 8.0 g/dL [facility] Sodium [Moles/Vol] 137 mmol/L 136 - 144 mmol/L [facility] Urea nitrogen [Mass/Vol] 46 mg/dL High 9 - 24 mg/dL [facility] Albumin [Mass/Vol] 3.4 g/dL Low 3.9-4.9 [facility] Comment on above: Order Comment: Speci men Type: BLOOD SPECIMENOrdering Facility: [facility] Address: [address] [place] [address] Performed By: #### 2 4323-8 ####JAVIER LABORATORYCLIA [id number] [address] [place] ALP [Catalytic activity/Vol] 96 U/L Normal 38-113 [facility] Comment on above: Order Comment: Speci men Type: BLOOD SPECIMENOrdering Facility: [facility] Address: [address] [place] [address] Performed By: #### 2 4323-8 ####HERRERA LABORATORYCLIA [id number] [address] STATES [place] ALT [Catalytic activity/Vol] 19 U/L Normal 10-54 [facility] Comment on above: Order Comment: Speci men Type: BLOOD SPECIMENOrdering Facility: [facility] Address: [address] [place] [address] Performed By: #### 2 4323-8 ####HERRERA LABORATORYCLIA [id number] [place] [address] [place] Anion gap [Moles/Vol] 13 mmol/L Normal 8-15 [facility] Comment on above: Order Comment: Speci men Type: BLOOD SPECIMENOrdering Facility: [facility] Address: [address] [place] [address] Performed By: #### 2 4323-8 ####HERRERA LABORATORYCLIA [id number] [address] [place] AST [Catalytic activity/Vol] 21 U/L Normal 14-40 [facility] Comment on above: Order Comment: Speci men Type: BLOOD SPECIMENOrdering Facility: [facility] Address: [address] [place] [address] Performed By: #### 2 4323-8 ####HERRERA LABORATORYCLIA [id number] [place] [address] [place] Bilirubin [Mass/Vol] 1.1 mg/dL Normal 0.2-1.3 [facility] Comment on above: Order Comment: Speci men Type: BLOOD SPECIMENOrdering Facility: [facility] Address: [address] [place] [address] Performed By: #### 2 4323-8 ####HERRERA LABORATORYCLIA [id number] [place] [address] [place] Calcium [Mass/Vol] 8.7 mg/dL Normal 8.5-10.2 [facility] Comment on above: Order Comment: Speci men Type: BLOOD SPECIMENOrdering Facility: [facility] Address: [address] [place] [address] Performed By: #### 2 4323-8 ####HERRERA LABORATORYCLIA [id number] [place] [address] [place] Chloride [Moles/Vol] 105 mmol/L Normal 98-107 [facility] Comment on above: Order Comment: Speci men Type: BLOOD SPECIMENOrdering Facility: [facility] Address: [address] [place] [address] Performed By: #### 2 4323-8 ####HERRERA LABORATORYCLIA [id number] [place] [address] [place] CO2 [Moles/Vol] 19 mmol/L Low 22-30 [facility] Comment on above: Order Comment: Speci men Type: BLOOD SPECIMENOrdering Facility: [facility] Address: [address] [place] [address] Performed By: #### 2 4323-8 ####HERRERA LABORATORYCLIA [id number] [place] [address] [place] Creatinine [Mass/Vol] 1.37 mg/dL High 0.73-1.22 [facility] Comment on above: Order Comment: Speci men Type: BLOOD SPECIMENOrdering Facility: [facility] Address: [address] [place] [address] Performed By: #### 2 4323-8 ####HERRERA LABORATORYCLIA [id number] [place] [address] [place] eGFRcr SerPlBld CKD-EPI 2020 54 mL/min/1.73m??? Low >=60 [facility] Comment on above: Order Comment: Speci men Type: BLOOD SPECIMENOrdering Facility: [facility] Address: [address] [place] [address] Result Comment: Nancy mated Glomerular Filtration Rate (eGFR) is calculated using the 2020 CKD-EPI creatinine equation. This equation utilizes serum creatinine, sex, and age as parameters. The creatinine assay has traceable calibration to isotope dilution-mass spectrometry. Refer to KDIGO guidelines for clinical interpretation. In patients with unstable renal function, e.g. those with acute kidney injury, the eGFR may not accurately reflect actual GFR. Performed By: #### 2 4323-8 ####HERRERA LABORATORYCLIA [id number] [place] [address] [place] Glucose [Mass/Vol] 319 mg/dL High 74-99 [facility] Comment on above: Order Comment: Speci men Type: BLOOD SPECIMENOrdering Facility: [facility] Address: [address] [place] [address] Result Comment: The [place] Diabetes Association (ADA) provides guidance for cutoff values for fasting glucose and random glucose. The ADA defines fasting as no caloric intake for at least 8 hours. Fasting plasma glucose results between 100 to 125 mg/dL indicate increased risk for diabetes (prediabetes).Fasting plasma glucose results greater than or equal to 126 mg/dL meet the criteria for diagnosis of diabetes. In the absence of unequivocal hyperglycemia, results should be confirmed by repeat testing. In a patient with classic symptoms of hyperglycemia or hyperglycemic crisis, random plasma glucose results greater than or equal to 200 mg/dL meet the criteria for diagnosis of diabetes.Reference: Standards of Medical Care in Diabetes 2016, [place] Diabetes Association. Diabetes Care. 2016.39(Suppl 1). Performed By: #### 2 4323-8 ####HERRERA LABORATORYCLIA [id number] [place] [address] [place] Potassium [Moles/Vol] 3.9 mmol/L Normal 3.7-5.1 [facility] Comment on above: Order Comment: Speci men Type: BLOOD SPECIMENOrdering Facility: [facility] Address: [address] [place] [address] Performed By: #### 2 4323-8 ####HERRERA LABORATORYCLIA [id number] [place] [address] [place] Protein [Mass/Vol] 6.4 g/dL Normal 6.3-8.0 [facility] Comment on above: Order Comment: Speci men Type: BLOOD SPECIMENOrdering Facility: [facility] Address: [address] [place] [address] Performed By: #### 2 4323-8 ####HERRERA LABORATORYCLIA [id number] [place] [address] [place] Sodium [Moles/Vol] 137 mmol/L Normal 136-144 [facility] Comment on above: Order Comment: Speci men Type: BLOOD SPECIMENOrdering Facility: [facility] Address: [address] [place] [address] Performed By: #### 2 4323-8 ####HERRERA LABORATORYCLIA [id number] [place] [address] [place] Urea nitrogen [Mass/Vol] 46 mg/dL High 9-24 [facility] Comment on above: Order Comment: Speci men Type: BLOOD SPECIMENOrdering Facility: [facility] Address: [address] [place] [address] Performed By: #### 2 4323-8 ####HERRERA LABORATORYCLIA [id number] [address] [place] Direct antiglobulin test.shaina y specific reagent Ql (RBC)Ordered By: Lucas Bruce on 12-23-2024 DAGT, Anti-C3b,C3d Positive [facility] DAGT, Anti-IgG Positive [facility] DAGT, Polyspecific AHG Positive [facility] HAPTOGLOBINon 12-23-2024 Haptoglobin [Mass/Vol] 12 mg/dL Low 31 - 238 mg/dL [facility] Haptoglob SerPl-mCncon 12-23 Haptoglobin [Mass/Vol] 12 mg/dL Low 31-238 [facility] Comment on above: Order Comment: Speci men Type: BLOOD SPECIMENOrdering Facility: [facility] Address: [address] [place] [address] Performed By: #### 4 542-7, 2532-0 ####[facility] LABCLIA [id number] [place] [address] [place] LACTATE DEHYDROGENASEon 12-09 LDH [Catalytic activity/Vol] 386 U/L High 135 - 225 U/L [facility] LDH SerPl-cCncon 12-23-2024 LDH [Catalytic activity/Vol] 386 U/L High 135-225 [facility] Comment on above: Order Comment: Pemai kimberly Type: BLOOD SPECIMENOrdering Facility: [facility] Address: [address] [place] [address] Performed By: #### 4 542-7, 2532-0 ####[facility] LABCLIA [id number] [place] [address] [place] No Panel Informationon 12-23 Interpretation and review of laboratory results Abnormal [facility] Interpretation and review of laboratory results Abnormal [facility] RETICULOCYTE COUNTon 025 Reticulocytes (Bld) [#/Vol] 0.079 10*3/uL [facility] Retics #on 12-23-2024 Reticulocytes (Bld) [#/Vol] 0.86891 10*3/uL Normal 0.018-0.10 0 [facility] Comment on above: Order Comment: Pemai kimberly Type: BLOOD SPECIMENOrdering Facility: [facility] Address: [address] [place] [address] Performed By: #### 5 8410-2, 30149-9 ####JAVIER LABORATORYCLIA [id number] [address] Reticulocytes (Bld) [#/Vol]o n 12-23-2024 Reticulocytes/100 RBC (Bld) 2.4 % High 0.4 - 2.0 % [facility] Reticulocytes/100 RBC (Bld) 2.4 % High 0.4-2.0 [facility] Comment on above: Order Comment: Demarco men Type: BLOOD SPECIMENOrdering Facility: [facility] Address: [address] [place] [address] Performed By: #### 5 8410-2, 77711-4 ####HERRERA LABORATORYCLIA [id number] [place] [id number] [place] TYPE + SCREENon 12-23-2024 ABO Invalid result Normal [facility] Comment on above: Order Comment: Speci men Type: BLOOD SPECIMENOrdering Facility: [facility] Address: [address] [place] [address] Performed By: #### B BABINT ####[facility] BLOOD BANKCLIA [id number] [place] [address] [place]#### TSCR ####[facility] BLOOD BANKCLIA [id number] [address] BLOOD BANKCLIA [id number] [place] [address] [facility] [place]#### ASCR, ABORH ####[facility] BLOOD BANKCLIA [id number] [place] [address] [place] Rh Nom (Bld) Positive Normal [facility] Comment on above: Order Comment: Speci men Type: BLOOD SPECIMENOrdering Facility: [facility] Address: [address] [place] [address] Performed By: #### B BABINT ####[facility] BLOOD BANKCLIA [id number] [place] [address] [facility] [place]#### TSCR ####[facility] BLOOD BANKCLIA [id number] [address] BLOOD BANKCLIA [id number] [place] [address] [facility] [place]#### ASCR, ABORH ####[facility] BLOOD BANKCLIA [id number] [place] [address] [place] TYPE AND SCREEN EXPIRATION 12/26/2024 23:59 Normal [facility] Comment on above: Order Comment: Speci men Type: BLOOD SPECIMENOrdering Facility: [facility] Address: [address] [place] [address] Result Comment: Danielle ected result: Previously reported as 12/26/2024 23:59 on 12/23/2024 at 5:38 PM EDT. Performed By: #### B BABINT ####[facility] BLOOD BANKCLIA [id number] [place] [address] [place] [facility]#### TSCR ####[facility] BLOOD BANKCLIA [id number] [place] [address] [facility] BLOOD BANKCLIA [id number] [place] [address] [place]#### ASCR, ABORH ####[facility] BLOOD BANKCLIA [id number] [place] [address] [facility] SURGICAL PATH Joe 12-14-2024 SURGICAL PATH R [facility] Department of Pathology [address] [place] [id number] Name: TERE BARONE : 1950 [facility] [id number] Number: Gender Male Locatio 2DMO; D244; 01 : n: Admit 74 years Attending SAMANTA VENTURA MD Age: Provider: Ordering MOHINDER HERNANDEZ MD Provider: [facility] Pathology Report ng: ACCESSION: COLLECTED DATE/TIME: RECEIVED DATE/TIME: PATHOLOGIST: [id number] 12/09/2024 16:52 EDT 12/10/2024 08:17 EDT SARA REICH MD Final Diagnosis A. GASTRIC, COLD BIOPSY: --GASTRIC MUCOSA WITH NO SIGNIFICANT DIAGNOSTIC CHANGE, SEE NOTE --NO MORPHOLOGIC EVIDENCE OF HELICOBACTER PYLORI-LIKE ORGANISMS Note: Immunohistochemical stain for Helicobacter pylori is negative with appropriate control. B. 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 An Alcian blue/PAS stain is used in evaluation of intestinal metaplasia. C. COLON, CECUM POLYP X 2, POLYPECTOMY: --TUBULAR ADENOMA X 1 --A SEPARATE FRAGMENT OF COLONIC MUCOSA WITH NO SIGNIFICANT DIAGNOSTIC CHANGE D. COLON, TRANSVERSE COLON POLYP X 3, POLYPECTOMY: --TUBULAR ADENOMAX3 E. COLON, SIGMOID COLON POLYP X 2, POLYPECTOMY: --FRAGMENTS OF TUBULAR ADENOMA F. RECTUM, POLYP, POLYPECTOMY: --TUBULAR ADENOMA G. DUODENUM, COLD BIOPSY: ____ Print 12/19/2024 11:07 EDT Number: Date/Time: [facility] Department of Pathology [address] [place] [address] Name: TERE BARONE : 1950 [facility] [id number] Number: Gender Male Locatio 2DMO; D244; 01 : n: Admit 74 years Attending SAMATNA VENTURA MD Age: Provider: Ordering MOHINDER HERNANDEZ MD Provider: Consulti Surgical Pathology Report ng: ACCESSION: COLLECTED DATE/TIME: RECEIVED DATE/TIME: PATHOLOGIST: [id number] 12/09/2024 16:52 EDT 12/10/2024 08:17 EDT SARA REICH MD Final Diagnosis --FRAGMENTS OF SMALL BOWEL MUCOSA WITH PRESERVED VILLOUS ARCHITECTURE AND NO SIGNIFICNT DIAGNOSTIC CHANGE SARA REICH PATHOLOGIST (Electronic Signature) Date Verified 12/14/2024 SS Clinical Data PREOP DIAGNOSIS: GI BLEED POSTOP DIAGNOSIS: GASTRITIS, IRREGULAR ZLINE, HIATAL HERNIA, DUODENAL AVM AND DIVERTICULUM/ COLON POLYPS, DIVERTICULOSIS PROCEDURE: EGD, Colonoscopy SPECIMEN: A. GASTRIC, COLD BIOPSY B. IRREGULAR Z LINE AT 38CM, COLD BIOPSY C. CECUM, POLYPS(2), COLD BIOPSY D. TRANSVERSE, POLYPS(3), COLD SNARE E. SIGMOID, POLYPS(2), COLD SNARE F. RECTUM, POLYP, COLD SNARE G. DUODENAL, COLD BIOPSY Gross Description A. Labeled gastric. Received in formalin on a sponge is a single irregular osorio segment of soft tissue measuring 0.5 x 0.5 x 0.5 cm. The specimen is entirely submitted in one cassette. B. Labeled Z-line at 38 cm. Received in formalin on a sponge is a single irregular osorio segment of soft tissue measuring 0.5 x 0.5 x 0.5 cm. The specimen is entirely submitted in one cassette. ____ Print 12/19/2024 11:07 EDT Number: Date/Time: [facility] Department of Pathology [address] [place] [id number] [phone] Name: TERE BARONE : 1950 [facility] [id number] Number: Gender Male Locatio 2DMO; D244; 01 : n: Admit 74 years Attending SAMANTA VENTURA MD Age: Provider: Ordering MOHINDER HERNANDEZ MD Provider: Consulti Surgical Pathology Report ng: ACCESSION: COLLECTED DATE/TIME: RECEIVED DATE/TIME: PATHOLOGIST: [id number] 12/09/2024 16:52 EDT 12/10/2024 08:17 EDT SULTANA LIM, SARA Gross Description C. Labeled cecal polyp. Received in formalin on a sponge are 2 similar irregular osorio segments of soft tissue. Each measures 0.3 and 0.4 cm. The specimen is entirely submitted in one cassette. D. Labeled transverse. Received in formalin on a sponge are 6 similar irregular osorio segments of soft tissue. Each measures 0.4-0.7 cm. The specimen is entirely submitted in one cassette. E. Labeled sigmoid. Received in formalin on a sponge are 5 similar irregular osorio segments of soft tissue. Each measures 0.3-0.6 cm. The specimen is entirely submitted in one cassette. F. Labeled rectal. Received in formalin on a sponge is a single irregular osorio segment of soft tissue measuring 0.5 x 0.4 x 0.4 cm. The specimen is entirely submitted in one cassette. G. Labeled duodenal. Received in formalin on a sponge is a single irregular osorio segment of soft tissue measuring 0.5 x 0.5 x 0.4 (more content not included)... [facility] Comment on above: Performed By: #### 1 [id number], [id number] #### [facility] [address] [place] [address] Mud Boss: Simba Obrien MD C BLOODon 12-12-2024 C BLOOD [facility] [address] [place] [phone] Name: TERE BARONE : 1950 Admitting DEANNE BUTTERFIELD MD Provider: Gender Male Financial [id number] : Number: Locatio 2DMO; [id number]; 01 n: Admit 12/06/2024 Date: Discharge 12/10/2024 Microbiology Date: PROCEDURE: C BLOOD [] SOURCE: Blood BODY SITE: COLLECTED DATE/TIME: 12/06/2024 21:13 EDT RECEIVED DATE/TIME: 12/06/2024 21:23 EDT START DATE/TIME: 12/06/2024 21:23 EDT FREE TEXT SOURCE: LAC ORDERING PHYSICIAN: DEANNE BUTTERFIELD MD FINAL REPORTS Final Report [] Verified Date/Time: 12/12/2024 00:00 EDT No growth after 5 days. ____ L=Low, H= High, *= Abnormal, C=Critical, f=Footnote, c=Corrected, i=Interp Data Name: TERE BARONE Print 12/12/2024 00:00 EDT Date/Time: [facility] Comment on above: Performed By: #### 1 [id number], [id number] #### [facility] [address] [place] [address] Mud Boss: MD Donna Bowden BLOOD [facility] [address] [place] [phone] Name: TERE BARONE : 1950 Admitting DEANNE BUTTERFIELD MD Provider: Gender Male Financial [id number] : Number: Locsierrao 2DMO; [id number]; 01 n: Admit 12/06/2024 Date: Discharge 12/10/2024 Microbiology Date: PROCEDURE: C BLOOD [] SOURCE: Blood BODY SITE: COLLECTED DATE/TIME: 12/06/2024 21:17 EDT RECEIVED DATE/TIME: 12/06/2024 21:23 EDT START DATE/TIME: 12/06/2024 21:24 EDT FREE TEXT SOURCE: R HAND ORDERING PHYSICIAN: DEANNE BUTTERFIELD MD FINAL REPORTS Final Report [] Verified Date/Time: 12/12/2024 00:00 EDT No growth after 5 days. ____ L=Low, H= High, *= Abnormal, C=Critical, f=Footnote, c=Corrected, i=Interp Data Name: TERE BARONE Print 12/12/2024 00:00 EDT Date/Time: [facility] Comment on above: Performed By: #### 1 [id number], [id number] #### [facility] [address] [place] [address] Mud Boss: Simba Obrien MD [facility] 12-11-2024 Antibody Identification Warm Auto Normal [facility] Comment on above: Result Comment: 08/2024 9:10 [id number] Warm Auto antibody and Auto Anti-E demonstrating. Antibody identification was performed at the [facility]. See outside report. Performed By: #### 1 49517, [id number], [id number] #### [facility] [address] [place] [address] Mud Boss: Simba Obrien MD Admission History Adulton Admission History Adult Patient History Model Entered On: 12/07/2024 20:44 EDT Performed On: 12/07/2024 20:37 EDT by Daniela Velez RN Info Preferred Verbal : Salvadorean Daniela Velez RN - 12/07/2024 20:37 EDT Contact Information : Bg Barone ():[phone] Sammi Ramires RN - 12/10/2024 5:41 EDT Preferred Written : Salvadorean Information Given By : Self Currently or : Not Applicable Is patient a dialysis patient? : No Daniela Velez RN - 12/07/2024 20:37 EDT Problem List Problem List obtained from : Patient Daniela Velez RN - 12/07/2024 20:37 EDT (As Of: 12/07/2024 20:54:59 EDT) Problems(Active) Acute renal failure (SNOMED CT :6367488418 ) Name of Problem: Acute renal failure ; Recorder: FRANSISCO HSU MD; Confirmation: Confirmed ; Classification: Medical ; Code: 8868153588 ; Contributor System: [employer] ; Last Updated: 12/07/2024 12:32 EDT ; Life Cycle Date: 12/07/2024 ; Life Cycle Status: Active ; Responsible Provider: FRANSISCO HSU MD; Vocabulary: SNOMED CT Ascending aorta dilatation (SNOMED CT :801925480 ) Name of Problem: Ascending aorta dilatation ; Onset Date: 03/19/2024 ; Recorder: Edwgie Mcintosh RN; Confirmation: Confirmed ; Classification: Medical ; Code: [id number] ; Contributor System: [employer] ; Last Updated: 12/07/2024 08:38 EDT ; Life Cycle Date: 12/07/2024 ; Life Cycle Status: Active ; Responsible Provider: Edwige Mcintosh RN; Vocabulary: SNOMED CT At risk for falls (SNOMED CT :229621260 ) Name of Problem: At risk for falls ; Recorder: SYSTEM; Confirmation: Confirmed ; Classification: Nursing ; Code: 301501889 ; Last Updated: 12/19/2022 19:07 EDT ; Life Cycle Date: 12/19/2022 ; Life Cycle Status: Active ; Vocabulary: SNOMED CT ; Comments: 12/19/2022 19:07 - SYSTEM Problem added automatically by system based on documentation of a admission to the hospital. Bleeding disorder (SNOMED CT :598462831 ) Name of Problem: Bleeding disorder ; Recorder: SYSTEM; Confirmation: Confirmed ; Classification: Nursing ; Code: [id number] ; Last Updated: 12/07/2024 08:39 EDT ; Life Cycle Date: 12/07/2024 ; Life Cycle Status: Active ; Vocabulary: SNOMED CT ; Comments: 12/07/2024 8:39 - SYSTEM Problem added automatically by system based on initiation of suggested paln of care Risk for Bleeding. Dementia (SNOMED CT :06531411 ) Name of Problem: Dementia ; Recorder: FRANSISCO HSU MD; Confirmation: Confirmed ; Classification: Medical ; Code: 37495337 ; Contributor System: [employer] ; Last Updated: 12/07/2024 12:34 EDT ; Life Cycle Date: 12/07/2024 ; Life Cycle Status: Active ; Responsible Provider: FRANSISCO HSU MD; Vocabulary: SNOMED CT Dementia with behavioral disturbance. (SNOMED CT :2690207512 ) Name of Problem: Dementia with behavioral disturbance. 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 ; Onset Date: 12/26/2023 ; Recorder: Edwige Mcintosh RN; Confirmation: Confirmed ; Classification: Medical ; Code: 6707736541 ; Contributor System: [employer] ; Last Updated: 12/07/2024 08:38 EDT ; Life Cycle Date: 12/07/2024 ; Life Cycle Status: Active ; Responsible Provider: Edwige Mcintosh RN; Vocabulary: SNOMED CT Iron deficiency anemia (SNOMED CT :709453894 ) Name of Problem: Iron deficiency anemia ; Recorder: FRANSISCO HSU MD; Confirmation: Confirmed ; Classification: Medical ; Code: 802106789 ; Contributor System: [employer] ; Last Updated: 12/07/2024 12:33 EDT ; Life Cycle Date: 12/07/2024 ; Life Cycle Status: Active ; Responsible Provider: FRANSISCO HSU MD; Vocabulary: SNOMED CT Left ureteral calculus (SNOMED CT :23224498 ) Name of Problem: Left ureteral calculus ; Recorder: FRANSISCO HSU MD; Confirmation: Confirmed ; Classification: Medical ; Code: 04590501 ; Contributor System: [employer] ; Last Updated: 12/07/2024 12:33 EDT ; Life Cycle Date: 12/07/2024 ; Life Cycle Status: Active ; Responsible Provider: FRANSISCO HSU MD; Vocabulary: SNOMED CT Long-term current use of opiate analgesic drug (SNOMED CT :162801101537944 ) Name of Problem: Long-term current use of opiate analgesic drug ; Recorder: Edwige Mcintosh RN; Confirmation: Confirmed ; Classification: Medical ; Code: [id number] ; Contributor System: [employer] ; Last Updated: 12/07/2024 08:37 EDT ; Life Cycle Date: 12/07/2024 ; Life Cycle Status: Active ; Responsible Provider: Edwige Mcintosh RN; Vocabulary: SNOMED CT Sensorineural hearing loss of bilateral ears (SNOMED CT :8325128112 ) Name of Problem: Sensorineural hearing loss of (more content not included)... [facility] Comment on above: Order Comment: Order entered secondary to admission BASICMETAon 12-10-2024 Calcium [Mass/Vol] 7.9 mg/dL Low 8.7-10.4 [facility] Comment on above: Performed By: #### 1 99522, [id number] #### [facility] [address] [place] [address] Mud Boss: Simba Obrien MD Chloride [Moles/Vol] 111 mmol/L High 98-107 [facility] Comment on above: Performed By: #### 1 15234, [id number] #### [facility] [address] [place] [address] Mud Boss: Simba Obrien MD CO2 [Moles/Vol] 21.0 mmol/L Normal 20.0-31.0 [facility] Comment on above: Performed By: #### 1 51561, 813126 #### [facility] [address] [place] [address] Mud Boss: Simba Obrien MD Creatinine [Mass/Vol] 1.6 mg/dL High 0.6-1.1 [facility] Comment on above: Performed By: #### 1 63028, 238667 #### [facility] [address] [place] [address] Mud Boss: Simba Obrien MD GFR AA 51 [facility] Comment on above: Result Comment: Afri can [place] GFR Calc Medical judgement is necessary to interpret GFR. The calculated GFR may not accurately reflect renal status in patients >70 years, women, acutely ill hospitalized patients and patients with acute renal failure or known renal disease. The MDRD GFR formula is valid only for adults greater than 18 years of age. Note: Creatinine clearance (not GFR) should be used for drug dosing. Calculated result performed using the MDRD GFR equation Performed By: #### 1 68665, [id number] #### [facility] [address] [place] [address] Mud Boss: Simba Obrien MD Glomerular Filtration Rate 42 mL/min/1.73m? [facility] Comment on above: Result Comment: Non- GFR Calc Medical judgement is necessary to interpret GFR. The calculated GFR may not accurately reflect renal status in patients >70 years, women, acutely ill hospitalized patients and patients with acute renal failure or known renal disease. The MDRD GFR formula is valid only for adults greater than 18 years of age. Note: Creatinine clearance (not GFR) should be used for drug dosing. Calculated result performed using the MDRD GFR equation Performed By: #### 1 02260, [id number] #### [facility] [address] [place], [place] [address] Mud Boss: Simba Obrien MD Glucose [Mass/Vol] 100 mg/dL Normal 74-106 [facility] Comment on above: Performed By: #### 1 33361, 627167 #### [facility] [address] [place] [address] Mud Boss: Simba Obrien MD Osmolality [Osmolality] 290 mosm/kg Normal 275-295 [facility] Comment on above: Performed By: #### 1 95251, 269928 #### [facility] [address] [place], [place] [address] Mud Boss: Simba Obrien MD Potassium [Moles/Vol] 3.8 mmol/L Normal 3.5-5.1 [facility] Comment on above: Performed By: #### 1 11075, 447647 #### [facility] [address] [place] [address] Mud Boss: Simba Obrien MD Sodium [Moles/Vol] 143 mmol/L Normal 135-145 [facility] Comment on above: Performed By: #### 1 15641, 227936 #### [facility] [address] [place] [address] Mud Boss: Simba Obrien MD Urea nitrogen [Mass/Vol] 27 mg/dL High 9-23 [facility] Comment on above: Result Comment: - Ve nipuncture should occur prior to N-Acetyl Cysteine (NAC) or Metamizole (Sulpyrine) administration due to the potential for falsely depressed results. - Blood samples from some patients with monoclonal gammopathies may produce falsely elevated results Performed By: #### 1 60665, 286711 #### [facility] [address] [place] [address] Mud Boss: Simba Obrien MD Urea nitrogen/Creatinine [Mass ratio] 16.9 mg/mg [facility] Comment on above: Performed By: #### 1 62125, 347033 #### [facility] [address] [place] [address] Mud Boss: Simba Obrien MD CBCNDon 12-10-2024 [facility] Actions See Notes Abnormal [facility] Comment on above: Result Comment: SNV Performed By: #### 1 97441, 595840 #### [facility] [address] [address] Mud Boss: Simba Obrien MD Erythrocyte distribution width (RBC) [Ratio] 18.7 % High 11.5-14.5 [facility] Comment on above: Performed By: #### 1 58856, 717336 #### [facility] [address] [place] [address] Mud Boss: Simba Obrien MD Hematocrit (Bld) [Volume fraction] 25.1 % Low 41.0-52.0 [facility] Comment on above: Performed By: #### 1 26955, 452487 #### [facility] [address] [place] [address] Mud Boss: Simba Obrien MD Hemoglobin (Bld) [Mass/Vol] 8.3 g/dL Low 13.5-17.5 [facility] Comment on above: Performed By: #### 1 84315, 641162 #### [facility] [address] [place] [address] Mud Boss: Simba Obrien MD Instr WBC ND 6.5 [facility] Comment on above: Performed By: #### 1 81332, 232745 #### [facility] [address] [place] [address] Mud Boss: Simba Obrien MD MCH (RBC) [Entitic mass] 29.8 pg Normal 27.0-34.0 [facility] Comment on above: Performed By: #### 1 92985, 605309 #### [facility] [address] [place] [address] Mud Boss: Simba Obrien MD MCHC (RBC) [Mass/Vol] 33.2 g/dL Normal 32.0-37.0 [facility] Comment on above: Performed By: #### 1 96325, 494626 #### [facility] [address] [place] [address] Mud Boss: Simba Obrien MD MCV (RBC) [Entitic vol] 89.9 fL Normal 80.0-100.0 [facility] Comment on above: Performed By: #### 1 08543, 546112 #### [facility] [address] [place] [address] Mud Boss: Simba Obrien MD Platelet 248 x10 Normal 150-450 [facility] Comment on above: Performed By: #### 1 14249, 484921 #### [facility] [address] [place] [address] Mud Boss: Simba Obrien MD Platelet mean volume (Bld) [Entitic vol] 6.5 fL Low 7.4-10.4 [facility] Comment on above: Performed By: #### 1 88923, 853496 #### [facility] [address] [place] [address] Mud Boss: Simba Obrien MD RBC 2.79 x10 Low 4.70-6.10 [facility] Comment on above: Result Comment: Note : RBC morphology is normal unless otherwise stated. Evaluation performed only if differential is requested. Performed By: #### 1 51585, 847474 #### [facility] [address] [place] [address] Mud Boss: Simba Obrien MD WBC 6.5 x10 Normal 4.5-11.0 [facility] Comment on above: Performed By: #### 1 29573, 632876 #### [facility] [address] [place] [address] Mud Boss: Simba Obrien MD Hep B Core Antibodies Totalo n 12-10-2024 Hepatitis B Core Antibodies, Total Negative Normal Negative [facility] Comment on above: Result Comment: INTE RPRETIVE INFORMATION: Hepatitis B Core Ab (Total) This assay should not be used for blood donor screening, associated re-entry protocols, or for screening Human Cells, Tissues and Cellular and Tissue-Based Products (HCT/P). Performed By: [employer] [address] [place] [address] [employer]el System Operator: Yusra Liao MD, PhD CLIA Number: [id number] Performed By: #### 5 [id number] #### [facility] [address] [place] [address] Mud Boss: Simba Obrien MD Inpatient Patient Summaryon 12-10-2024 Inpatient Patient Summary [facility] Discharge Instructions [address] [place] [phone] (Patient Copy) Name: TERE BARONE : 1950 Diagnosis: 1:Autoimmune hemolytic anemia; 2:Iron deficiency anemia; 3:Positive direct Mae test; 4:Left ureteral calculus; 5:Acute renal failure; 6:Acute pyelonephritis; 7:Type 2 diabetes mellitus; 8:Dementia; 9:Colon polyps; 10:Gastritis; 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 You are very important to us. Our goal is to demonstrate our high quality medical care and provide you with a very good patient experience. You may receive a survey about our service. Please take the time to complete the survey and return it so we can continue to enhance our service. Thank you again for allowing [facility] to care for your medical needs. If you have any questions about your care or follow up information please contact your doctor. Follow-up Instructions The following Appointments have been made for you: Please Note: the first letters listed in the order is the location code, followed by the appointment date, and scheduled provider Future Appointments No Future Appointments Scheduled Provider Follow Ups: With: Address: When: KEVIN BRYAN, Urology [address] [place] [address] Business (1) Within 1 to 2 weeks Comments: CALL FOR APPOINTMENT With: Address: When: DR JOSÉ MIGUEL [address] [address] [place] [address] Business (1) Within 2 to 4 weeks With: Address: When: MICHELLE BILLY [address] [place] [address] Business (1) Within 1 to 2 weeks Comments: CALL FOR APPOINTMENT With: Address: When: VIC GONZALEZ, Hematology/Oncology, Oncology/Hematology [address] [place] [address] Business (1) Within 7 to 10 days Comments: CALL FOR APPOINTMENT With: Address: When: MOHINDER HERNANDEZ, Gastroenterology [address] [facility], [address] [place] [phone] Business (1) Within Call for Appointment Procedure Images Images Procedure images: Colonoscopy_0009.jpg Colonoscopy_0007.jpg Colonoscopy_0008.jpg Colonoscopy_0006.jpg Colonoscopy_0005.jpg Colonoscopy_0004.jpg Colonoscopy_0003.jpg Colonoscopy_0002.jpg Colonoscopy_0012.jpg Colonoscopy_0001.jpg Colonoscopy_0011.jpg Colonoscopy_0010.jpg . Images Procedure images: EGD_0009.jpg EGD_0007.jpg EGD_0008.jpg EGD_0006.jpg EGD_0005.jpg EGD_0004.jpg EGD_0003.jpg EGD_0002.jpg EGD_0001.jpg . If you have had an intravenous catheter (IV) during your stay, keep the dressing dry and do not remove it from the site for at least 24 hours or as instructed by your provider to prevent problems. Medication Information Only Take The Medicines On This List. Keep This List and Bring It To Your Next Appointment. Medicines To Take At Home: Medicine Name (Generic Name) Amount to Take How to Take it How Often to Take it Additional Instructions Next Dose Due aspirin 81 mg oral delayed release tablet (aspirin) 81 mg By Mouth DAILY atorvastatin 80 mg oral tablet (atorvastatin) 80 mg By Mouth EVERY EVENING Vitamin D3 25 mcg (1000 intl units) oral capsule (cholecalciferol) 25 mcg By Mouth DAILY losartan 25 mg oral tablet (losartan) 25 mg By Mouth EVERY EVENING memantine 10 mg oral tablet (memantine) 10 mg By Mouth TWICE A DAY MetFORMIN (Eqv-Glucophage XR) 500 mg oral tablet, extended release (metformin = glucophage) 500 mg By Mouth DAILY Metoprolol Succinate ER 25 mg oral tablet, extended release (metoprolol) 25 mg By Mouth DAILY ondansetron 4 mg oral tablet, disintegrating = Zofran (ondansetron) 4 mg By Mouth EVERY FOUR HOURS Take as needed for Nausea/Vomiting allow tablet to dissolve on to (more content not included)... [facility] POC Glucoseon 12-10-2024 Glucose [Mass/Vol] 253 mg/dL High 72-100 [facility] Comment on above: Performed By: #### 1 [id number] #### [facility] [address] [place] [address] Mud Boss: Simba Obrien MD Glucose [Mass/Vol] 112 mg/dL High 72-100 [facility] Comment on above: Performed By: #### 1 [id number] #### [facility] [address] [place] [address] Mud Boss: Simba Obrien MD Progress Note-Physicianon Progress Note-Physician TERE BARONE :1950 Registration Date:12/06/2024 Subjective There is no family in the room. He denies any acute complaints. His hemoglobin is slightly better today. Objective Vitals & Measurements T: 36.4 ?C (Oral) TMIN: 36.3 ?C (Temporal Artery) TMAX: 36.7 ?C (Oral) HR: 83 (Peripheral) RR: 17 BP: 131/69 SpO2: 97% Medications Inpatient acetaminophen(Tylenol), 650 mg= 2 tabs, ORAL, [id number], PRN acetaminophen(Tylenol), 650 mg= 2 tabs, ORAL, [id number], PRN acetaminophen(Tylenol), 650 mg= 2 tabs, ORAL, [id number], PRN ceftriaxone(Rocephin), 1 g= 50 mL, IV Piggyback, [id number] ethyl chloride topical(ethyl chloride topical spray), 1 sprays, Topical, PRN, PRN glucagon, 1 mg, IM, PRN, PRN glucose(glucose 15 g/42 mL oral gel), 15 g= 1 packets, ORAL, PRN, PRN glucose(glucose 15 g/42 mL oral gel), 30 g= 2 packets, ORAL, PRN, PRN glucose(Dextrose 50% injection), 12.5 g= 25 mL, IV Push, PRN, PRN glucose(Dextrose 50% injection), 25 g= 50 mL, IV Push, PRN, PRN insulin lispro(Humalog coverage), Mild Scale, Subcutaneous, QIDWMHS Lactated Ringers 1,000 mL(LR 1,000 mL), 1000 mL, IV melatonin, 5 mg= 1 tabs, ORAL, QHS/[id number], PRN naloxone = Narcan, 0.4 mg= 1 mL, IV Push, PRN, PRN ondansetron(Zofran), 4 mg= 2 mL, IV Push, [id number], PRN pantoprazole(Protonix), 40 mg, IV Push, [id number] predniSONE, 90 mg= 9 tabs, ORAL, DAILY sodium chloride(Saline Flush), 3 mL, IV Push, [id number] sodium chloride(Saline Flush), 3 mL, IV Push, PRN, PRN Sodium Chloride 0.9%(NS) 1,000 mL(0.9%NaCl (Normal Saline) 1,000 mL), 1000 mL, IV tamsulosin(Flomax), 0.4 mg= 1 caps, ORAL, QHS Lab Results Test Name Test Result Date/Time BUN 27 mg/dL 12/10/2024 08:59 EDT Na 143 mmol/L 12/10/2024 08:59 EDT K3.8 mmol/L 12/10/2024 08:59 EDT Chloride 111 mmol/L 12/10/2024 08:59 EDT CO2, venous 21.0 mmol/L 12/10/2024 08:59 EDT Glucose 100 mg/dL 12/10/2024 08:59 EDT Creatinine 1.6 mg/dL 12/10/2024 08:59 EDT Estimated Creatinine Clearance 42.49 mL/min 12/10/2024 09:42 EDT Calcium 7.9 mg/dL 12/10/2024 08:59 EDT BUN/Creat Ratio 16.9 12/10/2024 08:59 EDT Calculated Osmolality 290 mOsm/kg 12/10/2024 08:59 EDT Glomerular Filtration Rate 42 mL/min/1.73m? 12/10/2024 08:59 EDT GFR AA 51 12/10/2024 08:59 EDT WBC 6.5 x103/uL 12/10/2024 08:59 EDT RBC 2.79 x106/uL 12/10/2024 08:59 EDT HGB 8.3 g/dL 12/10/2024 08:59 EDT HCT 25.1 % 12/10/2024 08:59 EDT MCV 89.9 fL 12/10/2024 08:59 EDT MCH 29.8 pg 12/10/2024 08:59 EDT MCHC 33.2 g/dL 12/10/2024 08:59 EDT RDW 18.7 % 12/10/2024 08:59 EDT Platelet 248 x103/uL 12/10/2024 08:59 EDT MPV 6.5 fL 12/10/2024 08:59 EDT POC Glucose 253 mg/dL 12/10/2024 11:15 EDT POC Glucose 112 mg/dL 12/10/2024 07:46 EDT POC Glucose 251 mg/dL 12/09/2024 21:27 EDT POC Glucose 176 mg/dL 12/09/2024 17:37 EDT Assessment/Plan This Visit Diagnosis 1. 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 We will have him follow up in the office in the near future and will decide on the prednisone taper at that time. Will consider giving him rituximab as well. 2. Iron deficiency anemia D50.9 3. Positive direct Mae test R76.8 Orders: BASICMETA(BMP), ROUTINE, 12/10/2024 07:35:00 EDT, DAILY LAB CBCND(CBC WITHOUT DIFFERENTIAL), ROUTINE, 12/10/2024 07:35:00 EDT, DAILY LAB [facility] Progress Note-Physician TERE BARONE :1950 Registration Date:12/06/2024 Subjective f/u L distal ureteral stone No flank pain No fever More alert today Review of Systems No flank pain No fever Objective Vitals & Measurements T: 36.5 ?C (Oral) TMIN: 36.1 ?C (Temporal Artery) TMAX: 36.7 ?C (Oral) HR: 68 (Peripheral) RR: 15 BP: 118/61 SpO2: 94% WT: 87.5 kg (Dosing) Physical Exam No distress Medications Inpatient acetaminophen(Tylenol), 650 mg= 2 tabs, ORAL, [id number], PRN acetaminophen(Tylenol), 650 mg= 2 tabs, ORAL, [id number], PRN acetaminophen(Tylenol), 650 mg= 2 tabs, ORAL, G2ILMTS, PRN ceftriaxone(Rocephin), 1 g= 50 mL, IV Piggyback, [id number] ethyl chloride topical(ethyl chloride topical spray), 1 sprays, Topical, PRN, PRN glucagon, 1 mg, IM, PRN, PRN glucose(glucose 15 g/42 mL oral gel), 15 g= 1 packets, ORAL, PRN, PRN glucose(glucose 15 g/42 mL oral gel), 30 g= 2 packets, ORAL, PRN, PRN glucose(Dextrose 50% injection), 12.5 g= 25 mL, IV Push, PRN, PRN glucose(Dextrose 50% injection), 25 g= 50 mL, IV Push, PRN, PRN insulin lispro(Humalog coverage), Mild Scale, Subcutaneous, QIDWMHS Lactated Ringers 1,000 mL(LR 1,000 mL), 1000 mL, IV melatonin, 5 mg= 1 tabs, ORAL, QHS/[id number], PRN naloxone = Narcan, 0.4 mg= 1 mL, IV Push, PRN, PRN ondansetron(Zofran), 4 mg= 2 mL, IV Push, [id number], PRN pantoprazole(Protonix), 40 mg, IV Push, [id number] predniSONE, 90 mg= 9 tabs, ORAL, DAILY sodium chloride(Saline Flush), 3 mL, IV Push, [id number] sodium chloride(Saline Flush), 3 mL, IV Push, PRN, PRN Sodium Chloride 0.9%(NS) 1,000 mL(0.9%NaCl (Normal Saline) 1,000 mL), 1000 mL, IV tamsulosin(Flomax), 0.4 mg= 1 caps, ORAL, QHS Lab Results Test Name Test Result Date/Time POC Glucose 112 mg/dL 12/10/2024 07:46 EDT POC Glucose 251 mg/dL 12/09/2024 21:27 EDT POC Glucose 176 mg/dL 12/09/2024 17:37 EDT POC Glucose 137 mg/dL 12/09/2024 11:24 EDT Assessment/Plan This Visit Diagnosis 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 Iron deficiency anemia D50.9 3. Positive direct Mae test R76.8 4. Left ureteral calculus N20.1 Ordered: Diet Order(NPO after Midnight Except Meds), 12/09/2024 23:59:00 EDT, NPO after Midnight except Meds 5. Acute renal failure N17.9 6. Acute pyelonephritis N10 (Rule out) 7. Type 2 diabetes mellitus E11.9 8. Dementia F03.90 Orders: XR ABDOMEN 1 VIEW, 12/09/2024 09:04:00 EDT, Routine, URINARY OBSTRUCTION, left distal ureteral stone, Bed, Isolation Precautions: NONE L distal ureteral stone/b/l renal stones -Remains asx -Discussed with attending -No surgical intervention this admission -Will plan for outpatient ureteroscopy Patient is OK to discharge from a standpoint, he will f/u as an outpatient for stone management Sent to for review: KHANH LIM, WILBER [facility] BASICMETAon 12-09-2024 Calcium [Mass/Vol] 8.3 mg/dL Low 8.7-10.4 [facility] Comment on above: Performed By: #### 1 77565, [id number], [id number] #### [facility] [address] [place] [address] Mud Boss: Simba Obrien MD Chloride [Moles/Vol] 111 mmol/L High 98-107 [facility] Comment on above: Performed By: #### 1 65064, 959390, 477959 #### [facility] [address] [place] [address] Mud Boss: Simba Obrien MD CO2 [Moles/Vol] 21.0 mmol/L Normal 20.0-31.0 [facility] Comment on above: Performed By: #### 1 57001, 416390, 950354 #### [facility] [address] [place] [address] Mud Boss: Simba Obrien MD Creatinine [Mass/Vol] 1.8 mg/dL High 0.6-1.1 [facility] Comment on above: Performed By: #### 1 10023, 886521, 623444 #### [facility] [address] [place] [address] Mud Boss: Simba Obrien MD GFR AA 45 [facility] Comment on above: Result Comment: Afri can [place] GFR Calc Medical judgement is necessary to interpret GFR. The calculated GFR may not accurately reflect renal status in patients >70 years, women, acutely ill hospitalized patients and patients with acute renal failure or known renal disease. The MDRD GFR formula is valid only for adults greater than 18 years of age. Note: Creatinine clearance (not GFR) should be used for drug dosing. Calculated result performed using the MDRD GFR equation Performed By: #### 1 31281, 796786, 760649 #### [facility] [address] [place] [address] Mud Boss: Simba Obrien MD Glomerular Filtration Rate 37 mL/min/1.73m? [facility] Comment on above: Result Comment: Non- GFR Calc Medical judgement is necessary to interpret GFR. The calculated GFR may not accurately reflect renal status in patients >70 years, women, acutely ill hospitalized patients and patients with acute renal failure or known renal disease. The MDRD GFR formula is valid only for adults greater than 18 years of age. Note: Creatinine clearance (not GFR) should be used for drug dosing. Calculated result performed using the MDRD GFR equation Performed By: #### 1 35424, 021841, [id number] #### [facility] [address] [place] [address] Mud Boss: Simba Obrien MD Glucose [Mass/Vol] 101 mg/dL Normal 74-106 [facility] Comment on above: Performed By: #### 1 66762, 461931, 165694 #### [facility] [address] [place] [address] Mud Boss: Simba Obrien MD Osmolality [Osmolality] 289 mosm/kg Normal 275-295 [facility] Comment on above: Performed By: #### 1 16642, 831196, 880936 #### [facility] [address] [place] [address] Mud Boss: Simba Obrien MD Potassium [Moles/Vol] 4.1 mmol/L Normal 3.5-5.1 [facility] Comment on above: Performed By: #### 1 46187, 619787, 280937 #### [facility] [address] [place] [address] Mud Boss: Simba Obrien MD Sodium [Moles/Vol] 143 mmol/L Normal 135-145 [facility] Comment on above: Performed By: #### 1 12219, 645493, 714227 #### [facility] [address] [place] [address] Mud Boss: Simba Obrien MD Urea nitrogen [Mass/Vol] 24 mg/dL High 9-23 [facility] Comment on above: Result Comment: - Ve nipuncture should occur prior to N-Acetyl Cysteine (NAC) or Metamizole (Sulpyrine) administration due to the potential for falsely depressed results. - Blood samples from some patients with monoclonal gammopathies may produce falsely elevated results Performed By: #### 1 28928, 418554, 502464 #### [facility] [address] [place] [address] Mud Boss: Simba Obrien MD Urea nitrogen/Creatinine [Mass ratio] 13.3 mg/mg [facility] Comment on above: Performed By: #### 1 53919, 952254, 376292 #### [facility] [address] [place] [address] Mud Boss: Simba Obrien MD HEMOon 12-09-2024 Nucleated RBC 0 /100WBC [facility] Comment on above: Performed By: #### 1 83149, 955478, 272266 #### [facility] [address] [place] [address] Mud Boss: Simba Obrien MD DIFF? Yes [facility] Comment on above: Performed By: #### 1 08069, 029089, 849978 #### [facility] [address] [place] [address] Mud Boss: Simba Obrien MD Dx Actions See Notes Abnormal [facility] Comment on above: Result Comment: SNV Performed By: #### 1 92382, 298605, 676287 #### [facility] [address] [place] [address] Mud Boss: Simba Obrien MD Erythrocyte distribution width (RBC) [Ratio] 18.4 % High 11.5-14.5 [facility] Comment on above: Performed By: #### 1 79599, 390437, 894215 #### [facility] [address] [place] [address] Mud Boss: Simba Obrien MD Hematocrit (Bld) [Volume fraction] 23.9 % Low 41.0-52.0 [facility] Comment on above: Result Comment: Revi ewed Performed By: #### 1 35980, 363551, 677933 #### [facility] [address] [place] [address] Mud Boss: Simba Obrien MD Hemoglobin (Bld) [Mass/Vol] 8.1 g/dL Low 13.5-17.5 [facility] Comment on above: Result Comment: Revi ewed Performed By: #### 1 39181, 876884, 519516 #### [facility] [address] [place] [address] Mud Boss: Simba Obrien MD Instr WBC 5.0 [facility] Comment on above: Performed By: #### 1 40553, 725529, 975678 #### [facility] [address] [place] [address] Mud Boss: Simba Obrien MD MCH (RBC) [Entitic mass] 30.1 pg Normal 27.0-34.0 [facility] Comment on above: Performed By: #### 1 , 367069, 924415 #### [facility] [address] [place] [address] Mud Boss: Simba Obrien MD MCHC (RBC) [Mass/Vol] 33.9 g/dL Normal 32.0-37.0 [facility] Comment on above: Performed By: #### 1 , 010529, 203147 #### [facility] [address] [place], [place] [address] Mud Boss: Simba Obrien MD MCV (RBC) [Entitic vol] 89.0 fL Normal 80.0-100.0 [facility] Comment on above: Performed By: #### 1 , 097135, 446303 #### [facility] [address] [place] [address] Mud Boss: iSmba Obrien MD Platelet 234 x10 Normal 150-450 [facility] Comment on above: Performed By: #### 1 , 098130, 752789 #### [facility] [address] [place] [address] Mud Boss: Simba Obrien MD Platelet mean volume (Bld) [Entitic vol] 6.5 fL Low 7.4-10.4 [facility] Comment on above: Performed By: #### 1 , 090169, 918700 #### [facility] [address] [place] [address] Mud Boss: Simba Obrien MD RBC 2.69 x10 Low 4.70-6.10 [facility] Comment on above: Result Comment: Misael valdez Note: RBC morphology is normal unless otherwise stated. Evaluation performed only if differential is requested. Performed By: #### 1 66481, 364404, 247235 #### [facility] [address] [place] [address] Mud Boss: Simba Obrien MD WBC 5.0 x10 Normal 4.5-11.0 [facility] Comment on above: Performed By: #### 1 50280, 571229, 075238 #### [facility] [address] [place] [address] Mud Boss: Simba Obrien MD HEP B AGon 12-09-2024 Hepatitis B Surface Antigen Non-Reactive [facility] Comment on above: Result Comment: Maryan ents taking biotin supplements may have false negative results with this assay Performed By: #### 5 [id number] #### [facility] [address] [place] [address] Mud Boss: Simba Obrien MD MAN DIFFon 12-09-[address] 0.00 x1000 Normal 0.00-0.70 [facility] Comment on above: Performed By: #### 1 53490, 065838, 364057 #### [facility] [address] [place] [address] Mud Boss: Simba Obrien MD Absolute Lymph Ct 2.30 x1000 Normal 1.20-4.[address] [facility] Comment on above: Performed By: #### 1 00297, 122397, 106807 #### [facility] [address] [place] [address] Mud Boss: Simba Obrien MD Absolute [address] Ct 0.30 x1000 Normal 0.10-1.00 [facility] Comment on above: Performed By: #### 1 52573, 041569, 450749 #### [facility] [address] [place] [address] Mud Boss: Simba Obrien MD Absolute Neutrophil Ct 2.40 x1000 Normal 1.40-8.80 [facility] Comment on above: Performed By: #### 1 14316, 190219, 652260 #### [facility] [address] [place] [address] Mud Boss: Simba Obrien MD Absolute Seg Ct 2.40 x1000 Normal 1.40-8.80 [facility] Comment on above: Performed By: #### 1 08884, 384797, 207221 #### [facility] [address] [place] [address] Mud Boss: Simba Obrien MD Atypical Lymphs 30 % High 0-5 [facility] Comment on above: Performed By: #### 1 90189, 444041, 564443 #### [facility] [address] [place] [address] Mud Boss: Simba Obrien MD Band form neutrophils/100 WBC (Bld) 0 % [facility] Comment on above: Performed By: #### 1 38839, 175702, 973634 #### [facility] [address] [place] [address] Mud Boss: Simba Obrien MD Lymphocytes/100 WBC (Bld) 46 % [facility] Comment on above: Performed By: #### 1 44659, 317364, 331991 #### [facility] [address] [place] [address] Mud Boss: Simba Obrien MD Monocytes/100 WBC (Bld) 6 % Normal [facility] Comment on above: Performed By: #### 1 66157, 333712, 268431 #### [facility] [address] [place] [address], [place] [address] Mud Boss: Simba Obrien MD Polychromasia Present [facility] Comment on above: Performed By: #### 1 65678, 476340, 317418 #### [facility] [address] [place] [address] Mud Boss: Simba Obrien MD Segmented neutrophils/100 WBC (Bld) 48 % [facility] Comment on above: Performed By: #### 1 39501, 430336, 259199 #### [facility] [address] [place] [address] Mud Boss: Simba Obrien MD Operative Reporton Operative Report Patient: ELIZABETH BARONE Age: 74 years Sex: Male : 1950 Associated Diagnoses: None Author: MOHINDER HERNANDEZ MD Pre-Procedure Procedure Date: 12/09/2024 . Procedure Type: Colonoscopy with removal of tumor(s), polyp(s), or other lesion(s) by cold snare technique. Procedure provider: Performed by MOHINDER HERNANDEZ MD. Last Colonoscopy: Last colonoscopy was <1 years ago. Indication: Anemia. Monitoring: See anesthesia record. Procedure See anesthesia record for sedation given during procedure. Rectal exam was performed and was normal. The patient was positioned starting in the left lateral decubitus position. Endoscope type used was a pediatric-size, colonoscope. The endoscope was lubricated then introduced through the anus. The scope was advanced to the terminal ileum. Photographic documentation was obtained. The bowel was carefully examined as the scope was withdrawn 22 minutes after visualizing the cecum. The bowel preparation quality was adequate. The patient tolerated the procedure well. Findings Pediatric colonoscopy advanced to terminal ileum prep quality was good Terminal ileum appeared normal Examination of the colon showed 2 polyps in the cecum measuring 2 to 3 mm removed using jumbo biopsy polypectomy technique 3 polyps in the transverse colon measuring between 3 to 4 mm removed using cold snare polypectomy technique. Minimal post polypectomy bleed stopped by hemoclips 2 polyps in the sigmoid colon measuring between 4 to 5 mm removed using cold snare polypectomy technique 4 mm polyp in rectum removed using cold snare polypectomy technique resection retrieval of all polyps complete Left-sided diverticulosis and internal hemorrhoids noted Images Procedure images: Colonoscopy_0009.jpg Colonoscopy_0007.jpg Colonoscopy_0008.jpg Colonoscopy_0006.jpg Colonoscopy_0005.jpg Colonoscopy_0004.jpg Colonoscopy_0003.jpg Colonoscopy_0002.jpg Colonoscopy_0012.jpg Colonoscopy_0001.jpg Colonoscopy_0011.jpg Colonoscopy_0010.jpg . Post-Procedure Complications encountered during the procedure were none. Estimated blood loss during the procedure was none. Specimens were sent to pathology. Impression and Plan Colonoscopy: Pre Procedure Diagnosis: Same as pre op indication/diagnosis. Post Procedure Diagnosis: Diverticulosis hemorrhoids. Course: Progressing as expected. Orders: Orders Patient Care: Communication CONSTANT Order (Order): 12/09/2024 16:59 EDT, Constant Order, Discharge patient after the following assessments are completed., Athe the criteria commensurate with pre-admission status. See departmental policies for discharge criteria specific to procedures performed. Post Procedure Location of Care (Order): 12/09/2024 16:59 EDT, SAME BED LOCATION, Observation Ambulate (Order): 12/09/2024 16:59 EDT, with assistance, Constant Order Nutrition Services/Dietary: Diet Order (Order): 12/09/2024 16:59 EDT, Clear Liquids. Plan: Repeat Colonoscopy in: Less than 3 years. Education and Follow-up: Patient Instructions: Pyelonephritis, Anemia, Diabetes: Type 2: General Info, Fall Prevention, Renal Failure: Acute, MOHINDER HERNANDEZ, Gastroenterology Within Call for Appointment; MOHINDER HERNANDEZ, Gastroenterology Within Call for Appointment. Notes: High-fiber diet Repeat colonoscopy in 3 years Return to floor for continued care Follow-up in clinic in 2 weeks on discharge Will need capsule endoscopy as an outpatient Will sign off please call with questions. [facility] Comment on above: Order Comment: Shawna roldan Attachment [id number] can be viewed in source systemMissing Attachment [id number] can be viewed in source systemMissing Attachment [id number] can be viewed in source systemMissing Attachment [id number] can be viewed in source systemMissing Attachment [id number] can be viewed in source systemMissing Attachment [id number] can be viewed in source systemMissing Attachment [id number] can be viewed in source systemMissing Attachment [id number] can be viewed in source systemMissing Attachment [id number] can be viewed in source systemMissing Attachment [id number] can be viewed in source systemMissing Attachment [id number] can be viewed in source systemMissing Attachment [id number] can be viewed in source system Result Comment: Operative Report Patient: ELIZABETH BARONE Age: 74 years Sex: Male : 1950 Associated Diagnoses: None Author: MOHINDER HERNANDEZ MD Pre-Procedure Procedure Date: 12/09/2024 . Procedure Type: Esophagogastroduodenoscopy with biopsy, control of bleeding, ablation of tumor(s), polyp(s). Procedure provider: Performed by MOHINDER HERNANDEZ MD. Indication: GI bleed anemia. ASA Classification: Class III. Monitoring: See anesthesia record. Procedure The procedure was performed in an endoscopy suite in the hospital. See anesthesia record for sedation given during procedure. The patient was positioned starting in the left lateral decubitus position. Endoscope type used was gastroscope, introduced orally, advanced to duodenum. Views were excellent. Esophageal biopsies were taken. Gastric biopsies were taken. Duodenal biopsies were taken. The patient tolerated the procedure well. Findings EGD scope advanced to second portion of the duodenum Esophagus shows small hiatal hernia Z-line irregular at 38 cm biopsied for Tsang's Stomach shows mild diffuse gastritis antral biopsies for pathology and H. 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 Post-Procedure Complications encountered during the procedure were none. Estimated blood loss during the procedure was none. Specimens were sent to pathology. Impression and Plan EGD: Pre Procedure Diagnosis: Same as pre op indication/diagnosis. Post Procedure Diagnosis: Irregular Z-line hiatal hernia gastritis duodenal AVM duodenal diverticulum. Course: Progressing as expected. Orders: Orders Patient Care: Ambulate (Order): 12/09/2024 16:23 EDT, with assistance, Constant Order Communication CONSTANT Order (Order): 12/09/2024 16:23 EDT, Constant Order, Discharge patient after the following assessments are completed., Athe the criteria commensurate with pre-admission status. See departmental policies for discharge criteria specific to procedures performed. Post Procedure Location of Care (Order): 12/09/2024 16:23 EDT, SAME BED LOCATION, Observation Nutrition Services/Dietary: Diet Order (Order): 12/09/2024 16:23 EDT, Clear Liquids. Education and Follow-up: Patient Instructions: Pyelonephritis, Anemia, Diabetes: Type 2: General Info, Fall Prevention, Renal Failure: Acute, VINES MARY, Gastroenterology Within Call for Appointment. Notes: Follow-up with pathology Proceed with colonoscopy. [facility] Comment on above: Order Comment: Shawna roldan Attachment [id number] can be viewed in source systemMissing Attachment [id number] can be viewed in source systemMissing Attachment [id number] can be viewed in source systemMissing Attachment [id number] can be viewed in source systemMissing Attachment [id number] can be viewed in source systemMissing Attachment [id number] can be viewed in source systemMissing Attachment [id number] can be viewed in source systemMissing Attachment [id number] can be viewed in source systemMissing Attachment [id number] can be viewed in source system Result Comment: POC Glucoseon 12-09-2024 Glucose [Mass/Vol] 251 mg/dL High [address] [place] [address] Comment on above: Performed By: #### 1 74764, 863470, 614211 #### [facility] [address] [place] [address] Mud Boss: Simba Obrien MD Glucose [Mass/Vol] 176 mg/dL [address] Comment on above: Performed By: #### 1 55258, 272263, 252575 #### [facility] [address] [place] [address] Mud Boss: Simba Obrien MD Glucose [Mass/Vol] 137 mg/dL [address] Comment on above: Performed By: #### 1 23374, 079456 #### [facility] [address] [place] [address] 31349 Mud Boss: Simba Obrien MD Glucose [Mass/Vol] 114 mg/dL [address] Comment on above: Performed By: #### 1 75522, 980698, 023386 #### [facility] [address] [place] [address]14 Mud Boss: Simba Obrien MD Progress Note-Physicianon Progress Note-Physician TERE BARONE :1950 Registration Date:12/06/2024 Assessment/Plan This Visit Diagnosis 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 Iron deficiency anemia D50.9 3. Positive direct Mae test R76.8 4. Left ureteral calculus N20.1 5. Acute renal failure N17.9 6. Acute pyelonephritis N10 (Rule out) 7. Type 2 diabetes mellitus E11.9 8. Dementia F03.90 Orders: POC Glucose, Blood, Collected Y/N, Nurse Collect, 12/09/2024 11:24:53 EDT, RT, Routine, 12/09/2024 11:24:53 EDT Request to Change Attending Physician, 12/09/2024 08:04:00 EDT, AUDREY LIM, SAMANTA patient is laying in the bed during evaluation no apparent distress Anemia acute on chronic status post 3 units of PRBC?plan for EGD colonoscopy today Iron deficiency anemia?workup as above Autoimmune hemolytic anemia?ALIX was positive for rheumatoid antibody patient started on prednisone by hematology with the plan to give rituximab outpatient. Left ureteral calculus/acute kidney injury?urology following will plan a KUB in the morning n.p.o. after midnight possible procedure will reassess in the morning. continue to treat UTI Acute pyelonephritis?Rocephin, clinically improving Dementia?complicates care Acute renal failure Subjective The patient is laying in the bed during my evaluation in no apparent distress Objective Vitals & Measurements T: 36.1 ?C (Temporal Artery) TMIN: 36.1 ?C (Temporal Artery) TMAX: 37.0 ?C (Oral) HR: 88 (Monitored) RR: 18 BP: 170/ 89 SpO2: 94% WT: 87.5 kg (Dosing) Physical Exam HEENT: Unremarkable. Extraocular muscles intact. Normocephalic. Neck: Soft and supple. Chest: Clear breath sounds bilaterally Cardiac: Regular rate and rhythm, no murmur. Abdomen: Soft, nontender, bowel sounds present x 4, no organomegaly. Extremities: Range of motion good. Edema none. Pulses intact. Integumentary: No rash. No lesions. Neurologic: Cranial nerves intact. Motor function intact. Psych: oriented x 3. Mood and affect normal. Medications Inpatient acetaminophen(Tylenol), 650 mg= 2 tabs, ORAL, I6ONTAP, PRN acetaminophen(Tylenol), 650 mg= 2 tabs, ORAL, [id number], PRN acetaminophen(Tylenol), 650 mg= 2 tabs, ORAL, [id number], PRN ceftriaxone(Rocephin), 1 g= 50 mL, IV Piggyback, [id number] droperidol = Inapsine, 0.625 mg= 0.25 mL, IV Push, ONCE, PRN ethyl chloride topical(ethyl chloride topical spray), 1 sprays, Topical, PRN, PRN glucagon, 1 mg, IM, PRN, PRN glucose(glucose 15 g/42 mL oral gel), 15 g= 1 packets, ORAL, PRN, PRN glucose(glucose 15 g/42 mL oral gel), 30 g= 2 packets, ORAL, PRN, PRN glucose(Dextrose 50% injection), 12.5 g= 25 mL, IV Push, PRN, PRN glucose(Dextrose 50% injection), 25 g= 50 mL, IV Push, PRN, PRN insulin lispro(Humalog coverage), Mild Scale, Subcutaneous, QIDWMHS Lactated Ringers(Lactated Ringers Bolus (LR)), 500 mL, Fluid Bolus IVPB, ONCE Lactated Ringers 1,000 mL(LR 1,000 mL), 1000 mL, IV melatonin, 5 mg= 1 tabs, ORAL, [id number], PRN naloxone = Narcan, 0.4 mg= 1 mL, IV Push, PRN, PRN naloxone = Narcan, 0.2 mg= 0.5 mL, IV Push, PRN, PRN ondansetron(Zofran), 4 mg= 2 mL, IV Push, [id number], PRN ondansetron, 4 mg= 2 mL, IV Push, ONCE, PRN pantoprazole(Protonix), 40 mg, IV Push, [id number] predniSONE, 90 mg= 9 tabs, ORAL, DAILY sodium chloride(Saline Flush), 3 mL, IV Push, [id number] sodium chloride(Saline Flush), 3 mL, IV Push, PRN, PRN Sodium Chloride 0.9%(NS) 1,000 mL(0.9%NaCl (Normal Saline) 1,000 mL), 1000 mL, IV tamsulosin(Flomax), 0.4 mg= 1 caps, ORAL, QHS Lab Results Test Name Test Result Date/Time BUN 24 mg/dL 12/09/2024 04:24 EDT Na 143 mmol/L 12/09/2024 04:24 EDT K4.1 mmol/L 12/09/2024 04:24 EDT Chloride 111 mmol/L 12/09/2024 04:24 EDT CO2, venous 21.0 mmol/L 12/09/2024 04:24 EDT Glucose 101 mg/dL 12/09/2024 04:24 EDT Creatinine 1.8 mg/dL 12/09/2024 04:24 EDT Estimated Creatinine Clearance 37.77 mL/min 12/09/2024 05:20 EDT Calcium 8.3 mg/dL 12/09/2024 04:24 EDT BUN/Creat Ratio 13.3 12/09/2024 04:24 EDT Calculated Osmolality 289 mOsm/kg 12/09/2024 04:24 EDT Hepatitis B Surface Antigen Nonreactive 12/09/2024 04:24 EDT Glomerular Filtration Rate 37 mL/min/1.73m? 12/09/2024 04:24 EDT GFR AA 45 12/09/2024 04:24 EDT WBC 5.0 x103/uL 12/09/2024 04:24 EDT RBC 2.69 x106/uL 12/09/2024 04:24 EDT HGB 8.1 g/dL 12/09/2024 04:24 EDT HCT 23.9 % 12/09/2024 04:24 EDT MCV 89.0 fL 12/09/2024 04:24 EDT MCH 30.1 pg 12/09/2024 04:24 EDT MCHC 33.9 g/dL 12/09/2024 04:24 EDT RDW 18.4 % 12/09/2024 04:24 EDT Platelet 234 x103/uL 12/09/2024 04:24 EDT MPV 6.5 fL 12/09/2024 04:24 EDT Nucleated RBC 0 /100WBC 12/09/2024 04:24 EDT Segmented Neut % 48 % 12/09/2024 04:24 EDT Band % 0 % 12/09/2024 04:24 EDT Lymphocyte % 46 % 12/09/2024 04:24 EDT Monocyte % 6 % (more content not included)... [facility] Progress Note-Physician TERE BARONE :1950 Registration Date:12/06/2024 Subjective f/u L distal ureteral stone Still without L flank pain Colonoscopy today Review of Systems No flank pain Objective Vitals & Measurements T: 36.7 ?C (Oral) TMIN: 36.3 ?C (Oral) TMAX: 37.0 ?C (Oral) HR: 89 (Peripheral) RR: 22 BP: 146/80 SpO2: 95% Physical Exam No distress Medications Inpatient acetaminophen(Tylenol), 650 mg= 2 tabs, ORAL, [id number], PRN acetaminophen(Tylenol), 650 mg= 2 tabs, ORAL, [id number], PRN acetaminophen(Tylenol), 650 mg= 2 tabs, ORAL, [id number], PRN ceftriaxone(Rocephin), 1 g= 50 mL, IV Piggyback, [id number] glucagon, 1 mg, IM, PRN, PRN glucose(glucose 15 g/42 mL oral gel), 15 g= 1 packets, ORAL, PRN, PRN glucose(glucose 15 g/42 mL oral gel), 30 g= 2 packets, ORAL, PRN, PRN glucose(Dextrose 50% injection), 12.5 g= 25 mL, IV Push, PRN, PRN glucose(Dextrose 50% injection), 25 g= 50 mL, IV Push, PRN, PRN insulin lispro(Humalog coverage), Mild Scale, Subcutaneous, QIDWMHS melatonin, 5 mg= 1 tabs, ORAL, QHS/[id number], PRN naloxone = Narcan, 0.4 mg= 1 mL, IV Push, PRN, PRN ondansetron(Zofran), 4 mg= 2 mL, IV Push, Z7QIMAQ, PRN pantoprazole(Protonix), 40 mg, IV Push, [id number] predniSONE, 90 mg= 9 tabs, ORAL, DAILY sodium chloride(Saline Flush), 3 mL, IV Push, [id number] sodium chloride(Saline Flush), 3 mL, IV Push, PRN, PRN Sodium Chloride 0.9%(NS) 1,000 mL(0.9%NaCl (Normal Saline) 1,000 mL), 1000 mL, IV tamsulosin(Flomax), 0.4 mg= 1 caps, ORAL, QHS Lab Results Test Name Test Result Date/Time BUN 24 mg/dL 12/09/2024 04:24 EDT Na 143 mmol/L 12/09/2024 04:24 EDT K4.1 mmol/L 12/09/2024 04:24 EDT Chloride 111 mmol/L 12/09/2024 04:24 EDT CO2, venous 21.0 mmol/L 12/09/2024 04:24 EDT Glucose 101 mg/dL 12/09/2024 04:24 EDT Creatinine 1.8 mg/dL 12/09/2024 04:24 EDT Estimated Creatinine Clearance 37.77 mL/min 12/09/2024 05:20 EDT Calcium 8.3 mg/dL 12/09/2024 04:24 EDT BUN/Creat Ratio 13.3 12/09/2024 04:24 EDT Calculated Osmolality 289 mOsm/kg 12/09/2024 04:24 EDT Glomerular Filtration Rate 37 mL/min/1.73m? 12/09/2024 04:24 EDT GFR AA 45 12/09/2024 04:24 EDT WBC 5.0 x103/uL 12/09/2024 04:24 EDT RBC 2.69 x106/uL 12/09/2024 04:24 EDT HGB 8.1 g/dL 12/09/2024 04:24 EDT HCT 23.9 % 12/09/2024 04:24 EDT MCV 89.0 fL 12/09/2024 04:24 EDT MCH 30.1 pg 12/09/2024 04:24 EDT MCHC 33.9 g/dL 12/09/2024 04:24 EDT RDW 18.4 % 12/09/2024 04:24 EDT Platelet 234 x103/uL 12/09/2024 04:24 EDT MPV 6.5 fL 12/09/2024 04:24 EDT Nucleated RBC 0 /100WBC 12/09/2024 04:24 EDT Segmented Neut % 48 % 12/09/2024 04:24 EDT Band % 0 % 12/09/2024 04:24 EDT Lymphocyte % 46 % 12/09/2024 04:24 EDT Monocyte % 6 % 12/09/2024 04:[address] 2.40 x1000 12/09/2024 04:[address] 0.00 x1000 12/09/2024 04:[address] 2.40 x1000 12/09/2024 04:[address] 2.30 x1000 12/09/2024 04:[address] 0.30 x1000 12/09/2024 04:24 EDT Atypical Lymphs 30 % 12/09/2024 04:24 EDT Polychromasia Present 12/09/2024 04:24 EDT POC Glucose 114 mg/dL 12/09/2024 07:37 EDT POC Glucose 95 mg/dL 12/08/2024 20:21 EDT POC Glucose 91 mg/dL 12/08/2024 16:22 EDT POC Glucose 96 mg/dL 12/08/2024 11:38 EDT Assessment/Plan This Visit Diagnosis 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 Iron deficiency anemia D50.9 3. Positive direct Mae test R76.8 4. Left ureteral calculus N20.1 5. Acute renal failure N17.9 6. Acute pyelonephritis N10 (Rule out) 7. Type 2 diabetes mellitus E11.9 8. Dementia F03.90 L distal ureteral stone -Remains asx -KUB -NPO after midnight -Anemia improving, colonoscopy today -No surgical intervention, will reassess in the AM -Discussed with Dr Bryan Sent to for review: RANDI LIM, [facility] Progress Note-Physician TERE BARONE :1950 Registration Date:12/06/2024 Subjective There is no family in the room. He is asking if he needs to finish the bowel prep. He denies any acute complaints. Objective Vitals & Measurements T: 36.7 ?C (Oral) TMIN: 36.3 ?C (Oral) TMAX: 37.0 ?C (Oral) HR: 89 (Peripheral) RR: 22 BP: 146/80 SpO2: 95% Physical Exam Gen: No acute distress Resp: No respiratory distress Neuro: Alert Medications Inpatient acetaminophen(Tylenol), 650 mg= 2 tabs, ORAL, [id number], PRN acetaminophen(Tylenol), 650 mg= 2 tabs, ORAL, [id number], PRN acetaminophen(Tylenol), 650 mg= 2 tabs, ORAL, O6AZIPY, PRN ceftriaxone(Rocephin), 1 g= 50 mL, IV Piggyback, [id number] glucagon, 1 mg, IM, PRN, PRN glucose(glucose 15 g/42 mL oral gel), 15 g= 1 packets, ORAL, PRN, PRN glucose(glucose 15 g/42 mL oral gel), 30 g= 2 packets, ORAL, PRN, PRN glucose(Dextrose 50% injection), 12.5 g= 25 mL, IV Push, PRN, PRN glucose(Dextrose 50% injection), 25 g= 50 mL, IV Push, PRN, PRN insulin lispro(Humalog coverage), Mild Scale, Subcutaneous, QIDWMHS iron sucrose(Venofer), 200 mg= 10 mL, IV Push, [id number] melatonin, 5 mg= 1 tabs, ORAL, QHS/[id number], PRN naloxone = Narcan, 0.4 mg= 1 mL, IV Push, PRN, PRN ondansetron(Zofran), 4 mg= 2 mL, IV Push, [id number], PRN pantoprazole(Protonix), 40 mg, IV Push, [id number] predniSONE, 90 mg, ORAL, DAILY sodium chloride(Saline Flush), 3 mL, IV Push, [id number] sodium chloride(Saline Flush), 3 mL, IV Push, PRN, PRN Sodium Chloride 0.9%(NS) 1,000 mL(0.9%NaCl (Normal Saline) 1,000 mL), 1000 mL, IV tamsulosin(Flomax), 0.4 mg= 1 caps, ORAL, HS Lab Results Test Name Test Result Date/Time BUN 24 mg/dL 12/09/2024 04:24 EDT Na 143 mmol/L 12/09/2024 04:24 EDT K4.1 mmol/L 12/09/2024 04:24 EDT Chloride 111 mmol/L 12/09/2024 04:24 EDT CO2, venous 21.0 mmol/L 12/09/2024 04:24 EDT Glucose 101 mg/dL 12/09/2024 04:24 EDT Creatinine 1.8 mg/dL 12/09/2024 04:24 EDT Estimated Creatinine Clearance 37.77 mL/min 12/09/2024 05:20 EDT Calcium 8.3 mg/dL 12/09/2024 04:24 EDT BUN/Creat Ratio 13.3 12/09/2024 04:24 EDT Calculated Osmolality 289 mOsm/kg 12/09/2024 04:24 EDT Glomerular Filtration Rate 37 mL/min/1.73m? 12/09/2024 04:24 EDT GFR AA 45 12/09/2024 04:24 EDT WBC 5.0 x103/uL 12/09/2024 04:24 EDT RBC 2.69 x106/uL 12/09/2024 04:24 EDT HGB 8.1 g/dL 12/09/2024 04:24 EDT HCT 23.9 % 12/09/2024 04:24 EDT MCV 89.0 fL 12/09/2024 04:24 EDT MCH 30.1 pg 12/09/2024 04:24 EDT MCHC 33.9 g/dL 12/09/2024 04:24 EDT RDW 18.4 % 12/09/2024 04:24 EDT Platelet 234 x103/uL 12/09/2024 04:24 EDT MPV 6.5 fL 12/09/2024 04:24 EDT Nucleated RBC 0 /100WBC 12/09/2024 04:24 EDT Segmented Neut % 48 % 12/09/2024 04:24 EDT Band % 0 % 12/09/2024 04:24 EDT Lymphocyte % 46 % 12/09/2024 04:24 EDT Monocyte % 6 % 12/09/2024 04:[address] 2.40 x1000 12/09/2024 04:[address] 0.00 x1000 12/09/2024 04:[address] 2.40 x1000 12/09/2024 04:[address] 2.30 x1000 12/09/2024 04:[address] 0.30 x1000 12/09/2024 04:24 EDT Atypical Lymphs 30 % 12/09/2024 04:24 EDT Polychromasia Present 12/09/2024 04:24 EDT POC Glucose 114 mg/dL 12/09/2024 07:37 EDT POC Glucose 95 mg/dL 12/08/2024 20:21 EDT POC Glucose 91 mg/dL 12/08/2024 16:22 EDT POC Glucose 96 mg/dL 12/08/2024 11:38 EDT Assessment/Plan This Visit Diagnosis 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 This is consistent with autoimmune hemolytic anemia. I'll start him on 90 mg of prednisone daily. Will plan to eventually give rituximab as an outpatient but will need to discuss this with him and his . 2. Iron deficiency anemia D50.9 He is to have endoscopies today. 3. Positive direct Mae test R76.8 As #1. Orders: predniSONE, 90 mg, ORAL, DAILY HAPTO, ROUTINE, 12/08/2024 16:54:00 EDT Hep B Core Antibodies Total, ROUTINE, 12/09/2024 08:39:00 EDT HEPATITIS B ANTIGEN(HBsAg), ROUTINE, 12/09/2024 08:39:00 EDT LDH, ROUTINE, 12/08/2024 16:54:00 EDT RETIC, ROUTINE, 12/08/2024 16:54:00 EDT [facility] XR ABDOMEN 1 VIEWon 12-10-19 25 XR ABDOMEN 1 VIEW XR ABDOMEN 1 VIEW (K UB) CLINICAL STATEMENT: left distal ureteral stone;URINARY OBSTRUCTION. TECHNOLOGIST NOTES: WHAT SYMPTOMS ARE YOU EXPERIENCING?; CHECKING FOR A LEFT DISTAL URETERAL STONE COMPARISON: CT abdomen pelvis 12/06/2024 FINDINGS: Bilateral nephrolithiasis. The known left ureter calculus projects of the level of the mid sacrum, in similar position to the prior CT. Degenerative changes are shown in the osseous structures. There are vascular calcifications in the soft tissues. IMPRESSION: Bilateral nephrolithiasis and left ureter calculus, similar in position to the prior CT. Electronically signed by: Nga Mendez MD 12/09/2024 02:16 PM EDT RP Technologist: LEW CHAND Dictated By: NGA MENDEZ MD Signed By: NGA MENDEZ MD Signed Out: 12/09/24 14:16:57 [facility] BASICMETAon 12-08-2024 Calcium [Mass/Vol] 8.3 mg/dL Low 8.7-10.4 [facility] Comment on above: Performed By: #### 1 [id number], [id number] #### [facility] [address] [place] [address] Mud Boss: Simba Obrien MD Chloride [Moles/Vol] 111 mmol/L High 98-107 [facility] Comment on above: Performed By: #### 1 [id number], [id number] #### [facility] [address] [place] [address] 01658 Mud Boss: Simba Obrien MD CO2 [Moles/Vol] 22.0 mmol/L Normal 20.0-31.0 [facility] Comment on above: Performed By: #### 1 [id number], [id number] #### [facility] [address] [place] [address] 93113 Mud Boss: Simba Obrien MD Creatinine [Mass/Vol] 1.9 mg/dL High 0.6-1.1 [facility] Comment on above: Performed By: #### 1 32027, [id number] #### [facility] [address] [place] [address] 56498 Mud Boss: Simba Obrien MD GFR AA 42 [facility] Comment on above: Result Comment: Afri can [place] GFR Calc Medical judgement is necessary to interpret GFR. The calculated GFR may not accurately reflect renal status in patients >70 years, women, acutely ill hospitalized patients and patients with acute renal failure or known renal disease. The MDRD GFR formula is valid only for adults greater than 18 years of age. Note: Creatinine clearance (not GFR) should be used for drug dosing. Calculated result performed using the MDRD GFR equation Performed By: #### 1 [id number], [id number] #### [facility] [address] [place] [address] 17127 Mud Boss: Simba Obrien MD Glomerular Filtration Rate 35 mL/min/1.73m? [facility] Comment on above: Result Comment: Non- GFR Calc Medical judgement is necessary to interpret GFR. The calculated GFR may not accurately reflect renal status in patients >70 years, women, acutely ill hospitalized patients and patients with acute renal failure or known renal disease. The MDRD GFR formula is valid only for adults greater than 18 years of age. Note: Creatinine clearance (not GFR) should be used for drug dosing. Calculated result performed using the MDRD GFR equation Performed By: #### 1 [id number], [id number] #### [facility] [address] [place] [address] 83269 Mud Boss: Simba Obrien MD Glucose [Mass/Vol] 103 mg/dL Normal 74-106 [facility] Comment on above: Performed By: #### 1 40882, [id number] #### [facility] [address] [place] [address] 88853 Mud Boss: Simba Obrien MD Osmolality [Osmolality] 288 mosm/kg Normal 275-295 [facility] Comment on above: Performed By: #### 1 92112, [id number] #### [facility] [address] [place] [address] 56461 Mud Boss: Simba Obrien MD Potassium [Moles/Vol] 4.3 mmol/L Normal 3.5-5.1 [facility] Comment on above: Performed By: #### 1 60918, [id number] #### [facility] [address] [place] [address] 94009 Mud Boss: Simba Obrien MD Sodium [Moles/Vol] 142 mmol/L Normal 135-145 [facility] Comment on above: Performed By: #### 1 04463, [id number] #### [facility] [address] [place] [address] 06545 Mud Boss: Simba Obrien MD Urea nitrogen [Mass/Vol] 24 mg/dL High 9-23 [facility] Comment on above: Result Comment: - Ve nipuncture should occur prior to N-Acetyl Cysteine (NAC) or Metamizole (Sulpyrine) administration due to the potential for falsely depressed results. - Blood samples from some patients with monoclonal gammopathies may produce falsely elevated results Performed By: #### 1 [id number], [id number] #### [facility] [address] [place] [address] 34018 Mud Boss: Simba Obrien MD Urea nitrogen/Creatinine [Mass ratio] 12.6 mg/mg [facility] Comment on above: Performed By: #### 1 66896, [id number] #### [facility] [address] [place] [address] 44186 Mud Boss: Simba Obrien MD C URINEon 12-08-2024 C URINE [facility] [address] [place] [address] [phone] Name: TERE BARONE : 1950 Admitting DEANNE BUTTERFIELD MD Provider: Gender Male Financial [id number] : Number: Kin 2DMO; [id number]; 01 n: Admit 12/06/2024 Date: Discharge Microbiology Date: PROCEDURE: C URINE [] SOURCE: CLEAN CATCH BODY SITE: COLLECTED DATE/TIME: 12/06/2024 18:25 EDT RECEIVED DATE/TIME: 12/07/2024 02:53 EDT START DATE/TIME: 12/07/2024 02:53 EDT FREE TEXT SOURCE: ORDERING PHYSICIAN: SCOUT LIM, DEANNE Gomez FINAL REPORTS Final Report [] Verified Date/Time: 12/08/2024 08:32 EDT No significant growth. ____ L=Low, H= High, *= Abnormal, C=Critical, f=Footnote, c=Corrected, i=Interp Data Name: TERE BARONE Print 12/08/2024 08:32 EDT Date/Time: [facility] Comment on above: Performed By: #### 1 [id number], [id number], [id number] #### [facility] [address] [place] [address] Mud Boss: Simba Obrien MD [facility] 12-08-2024 [facility] Actions See Notes Abnormal [facility] Comment on above: Result Comment: SNV Performed By: #### 1 [id number], [id number] #### [facility] [address] [place] [address] Mud Boss: Simba Obrien MD Erythrocyte distribution width (RBC) [Ratio] 20.8 % High 11.5-14.5 [facility] Comment on above: Performed By: #### 1 59940, [id number] #### [facility] [address] [place], [place] [id number] Mud Boss: Simba Obrien MD Hematocrit (Bld) [Volume fraction] 17.5 % Critically abnormal 41.0-52.0 [facility] Comment on above: Result Comment: Resu lts rechecked and called to TM on 12/08/2024 07:35:12 EDT, RBR/mfk Performed By: #### 1 64455, [id number] #### [facility] [address] [place] [address] 28857 Mud Boss: Simba Obrien MD Hemoglobin (Bld) [Mass/Vol] 5.6 g/dL Critically abnormal 13.5-17.5 [facility] Comment on above: Result Comment: Resu lts rechecked and called to TM on 12/08/2024 07:35:12 EDT, RBR/mfk Performed By: #### 1 95619, [id number] #### [facility] [address] [place], [place] [address] Mud Boss: Simba Obrien MD Instr WBC ND 4.8 [facility] Comment on above: Performed By: #### 1 50892, [id number] #### [facility] [address] [place], [place] [address] Mud Boss: Simba Obrien MD MCH (RBC) [Entitic mass] 28.7 pg Normal 27.0-34.0 [facility] Comment on above: Performed By: #### 1 30632, [id number] #### [facility] [address] [place], [place] [address] Mud Boss: Simba Obrien MD MCHC (RBC) [Mass/Vol] 31.9 g/dL Low 32.0-37.0 [facility] Comment on above: Performed By: #### 1 01618, [id number] #### [facility] [address] [place] [address] 19720 Mud Boss: Simba Obrien MD MCV (RBC) [Entitic vol] 90.0 fL Normal 80.0-100.0 [facility] Comment on above: Performed By: #### 1 20895, [id number] #### [facility] [address] [place] [address] Mud Boss: Simba Obrien MD Platelet 253 x10 Normal 150-450 [facility] Comment on above: Performed By: #### 1 07692, [id number] #### [facility] [address] [place] [address] Mud Boss: Simba Obrien MD Platelet mean volume (Bld) [Entitic vol] 6.6 fL Low 7.4-10.4 [facility] Comment on above: Performed By: #### 1 78889, [id number] #### [facility] [address] [place] [address] 76484 Mud Boss: Simba Obrien MD RBC 1.94 x10 Low 4.70-6.10 [facility] Comment on above: Result Comment: Note : RBC morphology is normal unless otherwise stated. Evaluation performed only if differential is requested. Performed By: #### 1 24026, [id number] #### [facility] [address] [place] [address] 09451 Mud Boss: Simba Obrien MD WBC 4.8 x10 Normal 4.5-11.0 [facility] Comment on above: Performed By: #### 1 22577, [id number] #### [facility] [address] [place] [address] 19035 Mud Boss: Simba Obrien MD Consult Reporton 12-08-2024 Consult Report TERE BARONE :1950 Registration Date:12/06/2024 Chief Complaint anemia Reason for Consultation Anemia History of Present Illness This is a 74-year-old male who presented to the emergency department with weakness and a lack of appetite. He has vascular dementia. He does not speak when I see him however he does shake his head. His significant other is at the bedside. He has been found to be significantly anemic. He is also been found to have a warm autoantibody. He apparently has not had any clear evidence of bleeding. Physical Exam Vitals & Measurements T: 36.6 ?C (Oral) TMIN: 36.5 ?C (Oral) TMAX: 36.7 ?C (Oral) HR: 90 (Peripheral) RR: 18 BP: 149/72 SpO2: 93% WT: 87.5 kg WT: 87.5 kg (Dosing) BMI: 27.93 Gen: No acute distress Resp: No respiratory distress Neuro: Alert and oriented x3 Assessment/Plan This Visit Diagnosis 1. Iron deficiency anemia D50.9 His iron saturation is slightly low. He is to have endoscopies tomorrow. 3. Positive direct Mae test R76.8 I'll check hemolytic parameters to see if he is hemolyzing his RBCs. Problem List/Past Medical History Ongoing Acute renal failure Ascending aorta dilatation Dementia Dementia with behavioral disturbance. Intraepidermal squamous carcinoma of arm Iron deficiency anemia Left ureteral calculus Long-term current use of opiate analgesic drug Sensorineural hearing loss of bilateral ears Systolic dysfunction Tobacco user Type 2 diabetes mellitus Historical Acute respiratory failure Alcohol abuse Cardiac enzyme or marker above reference range COVID-19 Recurrent falls Right carotid artery stenosis Slurred speech Syncope Thoracic and lumbosacral neuritis Procedure/Surgical History Colonoscopy. Medications Inpatient acetaminophen(Tylenol), 650 mg= 2 tabs, ORAL, [id number], PRN acetaminophen(Tylenol), 650 mg= 2 tabs, ORAL, [id number], PRN acetaminophen(Tylenol), 650 mg= 2 tabs, ORAL, K8LYFHK, PRN ceftriaxone(Rocephin), 1 g= 50 mL, IV Piggyback, A43TKNCA glucagon, 1 mg, IM, PRN, PRN glucose(glucose 15 g/42 mL oral gel), 15 g= 1 packets, ORAL, PRN, PRN glucose(glucose 15 g/42 mL oral gel), 30 g= 2 packets, ORAL, PRN, PRN glucose(Dextrose 50% injection), 12.5 g= 25 mL, IV Push, PRN, PRN glucose(Dextrose 50% injection), 25 g= 50 mL, IV Push, PRN, PRN insulin lispro(Humalog coverage), Mild Scale, Subcutaneous, QIDWMHS iron sucrose(Venofer), 200 mg= 10 mL, IV Push, [id number] melatonin, 5 mg= 1 tabs, ORAL, QHS/[id number], PRN naloxone = Narcan, 0.4 mg= 1 mL, IV Push, PRN, PRN ondansetron(Zofran), 4 mg= 2 mL, IV Push, Z3OBKFZ, PRN pantoprazole(Protonix), 40 mg, IV Push, U15KCIYW polyethylene glycol 3350 with electrolytes(GoLYTELY), 4000 mL, ORAL, ONCE sodium chloride(Saline Flush), 3 mL, IV Push, A84QARRT sodium chloride(Saline Flush), 3 mL, IV Push, PRN, PRN Sodium Chloride 0.9%(NS) 1,000 mL(0.9%NaCl (Normal Saline) 1,000 mL), 1000 mL, IV Sodium Chloride 0.9%(NS) 1,000 mL(NS 1,000 mL), 1000 mL, IV tamsulosin(Flomax), 0.4 mg= 1 caps, ORAL, QHS Home aspirin(aspirin 81 mg oral delayed release tablet), 81 mg= 1 tabs, ORAL, DAILY atorvastatin(atorvastatin 80 mg oral tablet), 80 mg= 1 tabs, ORAL, QPM cholecalciferol(Vitamin D3 25 mcg (1000 intl units) oral capsule), 25 mcg= 1 caps, ORAL, DAILY losartan(losartan 25 mg oral tablet), 25 mg= 1 tabs, ORAL, QPM memantine(memantine 10 mg oral tablet), 10 mg= 1 tabs, ORAL, BID metFORMIN = Glucophage(MetFORMIN (Eqv-Glucophage XR) 500 mg oral tablet, extended release), 500 mg= 1 tabs, ORAL, DAILY metoprolol(Metoprolol Succinate ER 25 mg oral tablet, extended release), 25 mg= 1 tabs, ORAL, DAILY ondansetron(ondansetron 4 mg oral tablet, disintegrating = Zofran), 4 mg= 1 tabs, ORAL, S9CMJBK, PRN semaglutide(Rybelsus 14 mg oral tablet), 14 mg= 1 tabs, ORAL, DAILY varenicline(varenicline 1 mg oral tablet), 1 mg= 1 tabs, ORAL, BID Allergies No Known Medication Allergies Social History Alcohol - Denies Alcohol Use Domestic Concerns Feels highly stressed:No *Requesting to speak to someone regarding stressNo Emotional Support AvailableYes CopingEffective *Patient's ResponsibilitiesYard work *Financial Concerns Regarding Hospitalization/DischargeNo Financial ConcernsNo *Requesting to speak to someone regarding financial concernsNo Concern for family members at home:No Major illness in household:No *Family/Friends available to help:Yes Employment/School Status:Retired Exercise Times per week:3-4 times/week Exercise type:Walking Home/Environment Lives with:Spouse *Living Situation Prior to AdmissionHome with assistance Home equipment:Walker/Cane Monitoring Equipment in homeNone *Special Services and Community Resources Prior to AdmissionNone *Mobility Assistance Prior to AdmissionIndependent Home BarriersInternal Stairs *Will patient require additional/n (more content not included)... [facility] HAPTOon 12-08-2024 Haptoglobin <10 Low 30-200 [facility] Comment on above: Performed By: #### 1 [id number], [id number], [id number] #### [facility] [address] [place] [address] 51516 Mud Boss: Simba Obrien MD LDHon 12-08-2024 LDH 544 unit/L High 120-246 [facility] Comment on above: Performed By: #### 1 46759, [id number], [id number] #### [facility] [address] [place] [address] 65905 Mud Boss: Simba Obrien MD POC Glucoseon 12-08-2024 Glucose [Mass/Vol] 95 mg/dL Normal 72-100 [facility] Comment on above: Performed By: #### 1 63360, [id number], [id number] #### [facility] [address] [place] [address] 74318 Mud Boss: Simba Obrien MD Glucose [Mass/Vol] 91 mg/dL Normal 72-100 [facility] Comment on above: Performed By: #### 1 77875, [id number], [id number] #### [facility] [address] [place] [address] 36638 Mud Boss: Simba Obrien MD Glucose [Mass/Vol] 96 mg/dL Normal 72-100 [facility] Comment on above: Performed By: #### 1 [id number] #### [facility] [address] [place] [address] Mud Boss: Simba Obrien MD Glucose [Mass/Vol] 105 mg/dL High 72-100 [facility] [facility] Comment on above: Performed By: #### 1 [id number] #### [facility] [address] [place] [address] Mud Boss: Simba Obrien MD Pathologist Reviewon 025 Diff Review Interp Review of peripheral smear reveals normocytic, normochromic RBCs with anisocytosis. The platelets are adequate in number with normal morphology. The WBCs are morphologically unremarkable. No atypical lymphocytes or immature blasts are noted. Toxic/drug injury, immune-mediated process, collagen vascular disorder and anemia of chronic disease should be clinically considered in differential diagnosis. Recommend correlation with serum iron studies for further investigation. [facility] Comment on above: Order Comment: Added on by Discern Expert Rule. Result Comment: KARLEE RAMIREZBELLAOscar (Electronic Signature) Date Verified 12/08/24 Performed By: #### 1 [id number] #### [facility] [address] [place] [address] Mud Boss: Simba Obrien MD Progress Note-Physicianon Progress Note-Physician TERE BARONE :1950 Registration Date:12/06/2024 Assessment/Plan This Visit Diagnosis 1. Iron deficiency anemia D50.9 History compatible with chronic blood loss anemia. History of IV iron and is being transfused 3 unit packed red blood cells today. He had warm antibody send hematology is consulted to manage on transfusions. Hemovac status is normal and he is asymptomatic at rest. He has no active bleeding. Plan for further evaluation and treatment per gastroenterology and hematology. 2. Left ureteral calculus N20.1 He is asymptomatic with acute renal failure and possible pyelonephritis. Urology recommends ureteral stent after transfusion is completed. The present antibiotics IV fluids are continued. 3. Acute renal failure N17.9 Secondary to decreased oral intake and component of obstructive uropathy. Continue IV fluids. Laboratory studies are repeated tomorrow. 4. Acute pyelonephritis N10 (Rule out) He is afebrile with normal white blood cell count. Blood cultures are no growth. Anaplex Legius is indicated when urine culture intensities are completed. 5. Type 2 diabetes mellitus E11.9 The patient's blood sugar is adequately controlled on admission. The patient's present home diabetic medications will be continued. The patient will be treated with glucometer checks before meals and at bedtime with sliding scale coverage. Medications will be adjusted as indicated. 6. Dementia F03.90 Mental status at normal baseline. Consent for procedures completed with by telephone. Orders: BASICMETA, ROUTINE, 12/08/2024 05:00:00 EDT Bedside Commode, 12/08/2024 15:19:00 EDT, At nurses discretion, with assistance as needed CBCND, ROUTINE, 12/08/2024 05:00:00 EDT Commode Chair Regular CHG, 12/08/2024 15:19:00 EDT Consult Physician, 12/07/2024 09:35:00 EDT, CARLOS LIM, VIC, anemia IV Pole and/or Pump, 12/07/2024 19:22:00 EDT, Module - Specify Quantity 1 - 4, 1 IV Pole and/or Pump, 12/07/2024 19:22:00 EDT, Point of Care Unit BASE PUMP and Pole, 1 [facility] [place] [facility] Task(Confirm Type and Crossmatch order with Blood Bank), Confirm Type and Crossmatch order with Blood Bank, 12/07/2024 08:37:00 EDT, 12/07/2024 08:37:00 EDT, 12/07/2024 08:37:00 EDT [facility] [place] Task(Order H&H), Order H&H, 12/07/2024 08:37:00 EDT, If Physician order is for multi-unit Leuko Reduced PRBC transfusion, 60 mins after first unit completed, 12/07/2024 08:37:00 EDT, 12/07/2024 08:37:00 EDT [facility] [place] Task(Give Patient Education Titles:), Give Patient Education Titles:, 12/07/2024 08:37:00 EDT, Blood Transfusion Information [facility] (Custom) and Post Transfusion Discharge Instructions [facility] (Custom), 12/07/2024 08:37:00 EDT, 12/07/2024 08:37:00 EDT Obtain Consent, 12/07/2024 08:37:00 EDT, Consent/Refusal for Transfusion of Blood or Blood Products Form [id number], 12/07/2024 08:37:00 EDT POC Glucose, Blood, Collected Y/N, Nurse Collect, 12/08/2024 11:38:40 EDT, RT, Routine, 12/08/2024 11:38:40 EDT POC Glucose, Blood, Collected Y/N, Nurse Collect, 12/08/2024 08:09:03 EDT, RT, Routine, 12/08/2024 08:09:03 EDT POC Glucose, Blood, Collected Y/N, Nurse Collect, 12/07/2024 20:35:22 EDT, RT, Routine, 12/07/2024 20:35:22 EDT RBC Transfusion Request Non Active Bleeding, 1, ROUTINE, 12/07/2024 08:37:00 EDT, Hgb less than 7g/dl or Hct less than 21% Subjective He denies abdominal pain nausea vomiting diarrhea chest pain dizziness shortness of breath. He has had no blood in his stool. Objective Vitals & Measurements T: 36.6 ?C (Oral) TMIN: 36.5 ?C (Oral) TMAX: 36.7 ?C (Oral) HR: 90 (Peripheral) RR: 18 BP: 149/72 SpO2: 93% WT: 87.5 kg WT: 87.5 kg (Dosing) BMI: 27.93 Physical Exam General: Alert and oriented. Eye: Pupils are equal, round and reactive to light, Extraocular movements are intact. HENT: Normocephalic. Neck: Supple, Non-tender. Respiratory: Lungs are clear to auscultation, Respirations are non-labored, Breath sounds are equal, Symmetrical chest wall expansion. Cardiovascular: Normal rate, Regular rhythm, No murmur, Good pulses equal in all extremities, No edema. Gastrointestinal: Soft, Non-tender, Non-distended, Normal bowel sounds, No organomegaly. Musculoskeletal: Normal range of motion, Normal strength, No tenderness, No swelling, No deformity. Integumentary: Warm, Dry, [place], No rash. Neurologic: Alert, Oriented, Normal sensory, Normal motor function, No focal deficits, Cranial Nerves II-XII are grossly intact. Cognition and Speech: Oriented, Speech clear and coherent. Psychiatric: Cooperative, Appropriate mood & affect, Normal judgment Medications Inpatient acetaminophen(Tylenol), 650 mg= 2 tabs, ORAL, [id number], PRN acetaminophen(Tylenol), 650 mg= 2 tabs, ORAL, [id number], PRN acetaminophen(Tylenol), 650 mg= 2 tabs, ORAL, [id number], PRN ceftriaxone(Rocephin), 1 g= 50 mL, IV Piggyback, [id number] glucagon, 1 mg, IM, PRN, PRN glucose(glucose 15 g/42 mL oral gel), 15 (more content not included)... [facility] Progress Note-Physician TERE BARONE :1950 Registration Date:12/06/2024 Subjective Patient seen and examined by my nurse practitioner I personally seen and examined the patient and reviewed the patient's chart Patient's hemoglobin is down to 5.6 today He is still awaiting a unit of PRBCs --multiple antibodies There are plans for possible ureteral stent placement if patient can get a unit of blood cells today per urology Patient with low iron/saturation. TIBC and ferritin normal. Vitamin B12 and normal. BUN has remained stable, TONA in the setting of obstructing kidney stone Objective Vitals & Measurements T: 36.7 ?C (Temporal Artery) TMIN: 36.6 ?C (Oral) TMAX: 36.7 ?C (Oral) HR: 90 (Peripheral) RR: 16 BP: 139/69 SpO2: 92% WT: 87.5 kg WT: 87.5 kg (Dosing) BMI: 27.93 Physical Exam Constitutional: Appears appropriate for age, non-toxic and comfortable. No signs of apparent distress present. Speech is clear and appropriate. Awake and oriented x2. Patient is cooperative. Abdomen: No bulging, the abdomen is symmetric. Normal bowel sounds. Abdomen is soft and nontender. No hepatosplenomegaly, no hernia. Medications Inpatient acetaminophen(Tylenol), 650 mg= 2 tabs, ORAL, B1PXEMR, PRN acetaminophen(Tylenol), 650 mg= 2 tabs, ORAL, [id number], PRN acetaminophen(Tylenol), 650 mg= 2 tabs, ORAL, [id number], PRN ceftriaxone(Rocephin), 1 g= 50 mL, IV Piggyback, [id number] glucagon, 1 mg, IM, PRN, PRN glucose(glucose 15 g/42 mL oral gel), 15 g= 1 packets, ORAL, PRN, PRN glucose(glucose 15 g/42 mL oral gel), 30 g= 2 packets, ORAL, PRN, PRN glucose(Dextrose 50% injection), 12.5 g= 25 mL, IV Push, PRN, PRN glucose(Dextrose 50% injection), 25 g= 50 mL, IV Push, PRN, PRN insulin lispro(Humalog coverage), Mild Scale, Subcutaneous, QIDWMHS iron sucrose(Venofer), 200 mg= 10 mL, IV Push, [id number] melatonin, 5 mg= 1 tabs, ORAL, QHS/[id number], PRN naloxone = Narcan, 0.4 mg= 1 mL, IV Push, PRN, PRN ondansetron(Zofran), 4 mg= 2 mL, IV Push, [id number], PRN pantoprazole(Protonix), 40 mg, IV Push, [id number] sodium chloride(Saline Flush), 3 mL, IV Push, [id number] sodium chloride(Saline Flush), 3 mL, IV Push, PRN, PRN Sodium Chloride 0.9%(NS) 1,000 mL(0.9%NaCl (Normal Saline) 1,000 mL), 1000 mL, IV Sodium Chloride 0.9%(NS) 1,000 mL(NS 1,000 mL), 1000 mL, IV tamsulosin(Flomax), 0.4 mg= 1 caps, ORAL, QHS Lab Results Test Name Test Result Date/Time BUN 24 mg/dL 12/08/2024 06:32 EDT Na 142 mmol/L 12/08/2024 06:32 EDT K 4.3 mmol/L 12/08/2024 06:32 EDT Chloride 111 mmol/L 12/08/2024 06:32 EDT CO2, venous 22.0 mmol/L 12/08/2024 06:32 EDT Glucose 103 mg/dL 12/08/2024 06:32 EDT Creatinine 1.9 mg/dL 12/08/2024 06:32 EDT Estimated Creatinine Clearance 35.78 mL/min 12/08/2024 08:01 EDT Estimated Creatinine Clearance 35.78 mL/min 12/07/2024 19:01 EDT Calcium 8.3 mg/dL 12/08/2024 06:32 EDT BUN/Creat Ratio 12.6 12/08/2024 06:32 EDT Calculated Osmolality 288 mOsm/kg 12/08/2024 06:32 EDT Glomerular Filtration Rate 35 mL/min/1.73m? 12/08/2024 06:32 EDT GFR AA 42 12/08/2024 06:32 EDT WBC 4.8 x103/uL 12/08/2024 06:32 EDT RBC 1.94 x106/uL 12/08/2024 06:32 EDT HGB 5.6 g/dL 12/08/2024 06:32 EDT HCT 17.5 % 12/08/2024 06:32 EDT MCV 90.0 fL 12/08/2024 06:32 EDT MCH 28.7 pg 12/08/2024 06:32 EDT MCHC 31.9 g/dL 12/08/2024 06:32 EDT RDW 20.8 % 12/08/2024 06:32 EDT Platelet 253 x103/uL 12/08/2024 06:32 EDT MPV 6.6 fL 12/08/2024 06:32 EDT POC Glucose 96 mg/dL 12/08/2024 11:38 EDT POC Glucose 105 mg/dL 12/08/2024 08:09 EDT POC Glucose 117 mg/dL 12/07/2024 20:35 EDT Assessment/Plan This Visit Diagnosis 74-year-old male admitted with obstructing left ureteral stone associated with TONA Worsening iron def anemia with a hemoglobin of 5.6, awaiting PRBCs due to multiple antibodies History of dementia, able to answer simple yes or no questions Reports colonoscopy over the last 3 to 6 months, no further details Plan Clear liquid diet today Plan to prep for colonoscopy and EGD tomorrow Continue IV PPI twice daily Continue to monitor hemoglobin and transfuse as needed and monitor for lower GI bleeding Patient will need blood transfusion prior to procedures tomorrow Will continue to follow Risks and benefits of procedure discussed with patient. Complications including bleeding, infection, and perforation dicussed with patient. Complications of anesthesia also discussed. Management of complications, which may include surgery if indicated also discussed with patient. All questions were answered. Patient agrees to proceed with EGD. Risks and benefits of colonoscopy discussed with patient. Benefi (more content not included)... [facility] Progress Note-Physician TERE BARONE :1950 Registration Date:12/06/2024 Subjective Patient's hemoglobin is down to 5.6 today He is still awaiting a unit of PRBCs --multiple antibodies There are plans for possible ureteral stent placement if patient can get a unit of blood cells today per urology Patient with low iron/saturation. TIBC and ferritin normal. Vitamin B12 and normal. BUN has remained stable, TONA in the setting of obstructing kidney stone Objective Vitals & Measurements T: 36.7 ?C (Temporal Artery) TMIN: 36.6 ?C (Oral) TMAX: 36.7 ?C (Oral) HR: 90 (Peripheral) RR: 16 BP: 139/69 SpO2: 92% WT: 87.5 kg WT: 87.5 kg (Dosing) BMI: 27.93 Physical Exam Constitutional: Appears appropriate for age, non-toxic and comfortable. No signs of apparent distress present. Speech is clear and appropriate. Awake and oriented x2. Patient is cooperative. Abdomen: No bulging, the abdomen is symmetric. Normal bowel sounds. Abdomen is soft and nontender.No hepatosplenomegaly, no hernia. Medications Inpatient acetaminophen(Tylenol), 650 mg= 2 tabs, ORAL, O2MMSBT, PRN acetaminophen(Tylenol), 650 mg= 2 tabs, ORAL, W7VTDHI, PRN acetaminophen(Tylenol), 650 mg= 2 tabs, ORAL, M2XBGIB, PRN ceftriaxone(Rocephin), 1 g= 50 mL, IV Piggyback, H95ECQPH glucagon, 1 mg, IM, PRN, PRN glucose(glucose 15 g/42 mL oral gel), 15 g= 1 packets, ORAL, PRN, PRN glucose(glucose 15 g/42 mL oral gel), 30 g= 2 packets, ORAL, PRN, PRN glucose(Dextrose 50% injection), 12.5 g= 25 mL, IV Push, PRN, PRN glucose(Dextrose 50% injection), 25 g= 50 mL, IV Push, PRN, PRN insulin lispro(Humalog coverage), Mild Scale, Subcutaneous, QIDWMHS iron sucrose(Venofer), 200 mg= 10 mL, IV Push, [id number] melatonin, 5 mg= 1 tabs, ORAL, QHS/[id number], PRN naloxone = Narcan, 0.4 mg= 1 mL, IV Push, PRN, PRN ondansetron(Zofran), 4 mg= 2 mL, IV Push, Q8ZNEED, PRN pantoprazole(Protonix), 40 mg, IV Push, [id number] sodium chloride(Saline Flush), 3 mL, IV Push, G08UAEMV sodium chloride(Saline Flush), 3 mL, IV Push, PRN, PRN Sodium Chloride 0.9%(NS) 1,000 mL(0.9%NaCl (Normal Saline) 1,000 mL), 1000 mL, IV Sodium Chloride 0.9%(NS) 1,000 mL(NS 1,000 mL), 1000 mL, IV tamsulosin(Flomax), 0.4 mg= 1 caps, ORAL, QHS Lab Results Test Name Test Result Date/Time BUN 24 mg/dL 12/08/2024 06:32 EDT Na 142 mmol/L 12/08/2024 06:32 EDT K4.3 mmol/L 12/08/2024 06:32 EDT Chloride 111 mmol/L 12/08/2024 06:32 EDT CO2, venous 22.0 mmol/L 12/08/2024 06:32 EDT Glucose 103 mg/dL 12/08/2024 06:32 EDT Creatinine 1.9 mg/dL 12/08/2024 06:32 EDT Estimated Creatinine Clearance 35.78 mL/min 12/08/2024 08:01 EDT Estimated Creatinine Clearance 35.78 mL/min 12/07/2024 19:01 EDT Calcium 8.3 mg/dL 12/08/2024 06:32 EDT BUN/Creat Ratio 12.6 12/08/2024 06:32 EDT Calculated Osmolality 288 mOsm/kg 12/08/2024 06:32 EDT Glomerular Filtration Rate 35 mL/min/1.73m? 12/08/2024 06:32 EDT GFR AA 42 12/08/2024 06:32 EDT WBC 4.8 x103/uL 12/08/2024 06:32 EDT RBC 1.94 x106/uL 12/08/2024 06:32 EDT HGB 5.6 g/dL 12/08/2024 06:32 EDT HCT 17.5 % 12/08/2024 06:32 EDT MCV 90.0 fL 12/08/2024 06:32 EDT MCH 28.7 pg 12/08/2024 06:32 EDT MCHC 31.9 g/dL 12/08/2024 06:32 EDT RDW 20.8 % 12/08/2024 06:32 EDT Platelet 253 x103/uL 12/08/2024 06:32 EDT MPV 6.6 fL 12/08/2024 06:32 EDT POC Glucose 96 mg/dL 12/08/2024 11:38 EDT POC Glucose 105 mg/dL 12/08/2024 08:09 EDT POC Glucose 117 mg/dL 12/07/2024 20:35 EDT Assessment/Plan This Visit Diagnosis 74-year-old male admitted with obstructing left ureteral stone associated with TONA Worsening iron def anemia with a hemoglobin of 5.6, awaiting PRBCs due to multiple antibodies History of dementia, able to answer simple yes or no questions Reports colonoscopy over the last 3 to 6 months, no further details Plan Clear liquid diet today Plan to prep for colonoscopy tomorrow Continue IV PPI twice daily Continue to monitor hemoglobin and transfuse as needed and monitor for lower GI bleeding Patient will need blood transfusion prior to procedures tomorrow Reviewed with Dr. Vines who will follow [facility] Progress Note-Physician TERE BARONE :1950 Registration Date:12/06/2024 Subjective f/u L distal ureteral stone Patient denies flank pain Denies fever Asymptomatic Review of Systems Denies fever Denies flank pain Denies hematuria Objective Vitals & Measurements T: 36.7 ?C (Temporal Artery) TMIN: 36.6 ?C (Oral) TMAX: 36.7 ?C (Oral) HR: 90 (Peripheral) RR: 16 BP: 139/69 SpO2: 92% WT: 87.5 kg WT: 87.5 kg (Dosing) BMI: 27.93 Physical Exam No distress Dark yellow urine in bedside urinal Medications Inpatient acetaminophen(Tylenol), 650 mg= 2 tabs, ORAL, [id number], PRN acetaminophen(Tylenol), 650 mg= 2 tabs, ORAL, V8DYVYN, PRN acetaminophen(Tylenol), 650 mg= 2 tabs, ORAL, R7ECOBU, PRN ceftriaxone(Rocephin), 1 g= 50 mL, IV Piggyback, [id number] glucagon, 1 mg, IM, PRN, PRN glucose(glucose 15 g/42 mL oral gel), 15 g= 1 packets, ORAL, PRN, PRN glucose(glucose 15 g/42 mL oral gel), 30 g= 2 packets, ORAL, PRN, PRN glucose(Dextrose 50% injection), 12.5 g= 25 mL, IV Push, PRN, PRN glucose(Dextrose 50% injection), 25 g= 50 mL, IV Push, PRN, PRN insulin lispro(Humalog coverage), Mild Scale, Subcutaneous, QIDWMHS iron sucrose(Venofer), 200 mg= 10 mL, IV Push, W95CZNQI melatonin, 5 mg= 1 tabs, ORAL, QHS/[id number], PRN naloxone = Narcan, 0.4 mg= 1 mL, IV Push, PRN, PRN ondansetron(Zofran), 4 mg= 2 mL, IV Push, Y3QMYSE, PRN pantoprazole(Protonix), 40 mg, IV Push, I86UBVUJ sodium chloride(Saline Flush), 3 mL, IV Push, G12EOGEF sodium chloride(Saline Flush), 3 mL, IV Push, PRN, PRN Sodium Chloride 0.9%(NS) 1,000 mL(0.9%NaCl (Normal Saline) 1,000 mL), 1000 mL, IV Sodium Chloride 0.9%(NS) 1,000 mL(NS 1,000 mL), 1000 mL, IV tamsulosin(Flomax), 0.4 mg= 1 caps, ORAL, QHS Lab Results Test Name Test Result Date/Time BUN 24 mg/dL 12/08/2024 06:32 EDT Na 142 mmol/L 12/08/2024 06:32 EDT K4.3 mmol/L 12/08/2024 06:32 EDT Chloride 111 mmol/L 12/08/2024 06:32 EDT CO2, venous 22.0 mmol/L 12/08/2024 06:32 EDT Glucose 103 mg/dL 12/08/2024 06:32 EDT Creatinine 1.9 mg/dL 12/08/2024 06:32 EDT Estimated Creatinine Clearance 35.78 mL/min 12/08/2024 08:01 EDT Estimated Creatinine Clearance 35.78 mL/min 12/07/2024 19:01 EDT Calcium 8.3 mg/dL 12/08/2024 06:32 EDT BUN/Creat Ratio 12.6 12/08/2024 06:32 EDT Calculated Osmolality 288 mOsm/kg 12/08/2024 06:32 EDT Glomerular Filtration Rate 35 mL/min/1.73m? 12/08/2024 06:32 EDT GFR AA 42 12/08/2024 06:32 EDT WBC 4.8 x103/uL 12/08/2024 06:32 EDT RBC 1.94 x106/uL 12/08/2024 06:32 EDT HGB 5.6 g/dL 12/08/2024 06:32 EDT HCT 17.5 % 12/08/2024 06:32 EDT MCV 90.0 fL 12/08/2024 06:32 EDT MCH 28.7 pg 12/08/2024 06:32 EDT MCHC 31.9 g/dL 12/08/2024 06:32 EDT RDW 20.8 % 12/08/2024 06:32 EDT Platelet 253 x103/uL 12/08/2024 06:32 EDT MPV 6.6 fL 12/08/2024 06:32 EDT POC Glucose 105 mg/dL 12/08/2024 08:09 EDT POC Glucose 117 mg/dL 12/07/2024 20:35 EDT Assessment/Plan This Visit Diagnosis 1. Acute renal failure N17.9 2. Acute pyelonephritis N10 (Rule out) 3. Iron deficiency anemia D50.9 4. Left ureteral calculus N20.1 5. Type 2 diabetes mellitus E11.9 6. Dementia F03.90 L distal ureteral stone -Asx -Cancel cysto this morning -Needs medically optimized before proceeding with surgical intervention -Given he is asx could consider stone management as an outpatient -Discussed with attending Severe anemia -No obvious etiology -Transfuse per primary team -GI has been consulted I have reviewed and agree with the PA's findings, including all diagnostic interpretations, and treatment plans as written. recommend identification of cause of anemia and transfusion prior to considering OR given lack of pain or evidence of sepsis related to obstruction. Sent to for review: SIMBA GONZALEZ MD [facility] RBC Transfusion Request Non Active Bleedingon 12-08-2024 # Units 1 [facility] Comment on above: Performed By: #### 1 [id number], [id number] #### [facility] [address] [id number] Mud Boss: Simba Obrien MD Status of Blood/Components Blood Available [facility] Comment on above: Performed By: #### 1 [id number], [id number], [id number] #### [facility] [address] [place] [address] Mud Boss: Simba Obrien MD Result Comment: 11/11 1:06 TMESSINA Availability called to: elaine LIVE, 12/08/2024 01:06:13 EDT..tw RETICon 12-08-2024 DxH Actions See Notes [facility] Comment on above: Result Comment: SNV Performed By: #### 1 [id number], [id number] #### [facility] [address] [place], [place] [id number] Mud Boss: Simba Obrien MD Hematocrit (Bld) [Volume fraction] 17.2 % Critically abnormal 41.0-52.0 [facility] Comment on above: Result Comment: Crit ical results called previously with CBC Performed By: #### 1 [id number], [id number], [id number] #### [facility] [address] [place], [place] [id number] Mud Boss: Simba Obrien MD Immature Retic Fraction 0.65 High 0.20-0.50 [facility] Comment on above: Performed By: #### 1 02638, [id number], [id number] #### [facility] [address] [place] [address] Mud Boss: Simba Obrien MD RBC 1.87 x10 Low 4.70-6.10 [facility] Comment on above: Result Comment: Note : RBC morphology is normal unless otherwise stated. Evaluation performed only if differential is requested. Performed By: #### 1 [id number], [id number], [id number] #### [facility] [address] [place] [address] Mud Boss: Simba Obrien MD Retic Absolute 166 x10 High 22-110 [facility] Comment on above: Performed By: #### 1 08525, [id number], [id number] #### [facility] [address] [place] [address] Mud Boss: Simba Obrien MD Retic Corrected 3.4 % [facility] Comment on above: Result Comment: Danielle ected Reticulocyte Count Reference Ranges: Hematocrit greater than 35 = NA Hematocrit less than 35 = 2-3% Hematocrit less than 25 = 3-5% Performed By: #### 1 [id number], [id number], [id number] #### [facility] [address] [place] [address] Mud Boss: Simba Obrien MD Retic Count 8.9 % High 0.5-2.5 [facility] Comment on above: Performed By: #### 1 07132, [id number], [id number] #### [facility] [address] [place] [address] Mud Boss: Simba Obrien MD ABO TUBEon 12-07-2024 a cells 0 [facility] Comment on above: Performed By: #### 1 06044, [id number], [id number] #### [facility] [address] [place] [address] Mud Boss: Simba Obrien MD ABORh Interpretation Positive Normal [facility] Comment on above: Performed By: #### 1 40485, [id number], [id number] #### [facility] [address] [place] [address] Mud Boss: Simba Obrien MD Anti-A 4+ [facility] Comment on above: Performed By: #### 1 67018, [id number], [id number] #### [facility] [address] [place] [address] Mud Boss: Simba Obrien MD Anti-B 0 [facility] Comment on above: Performed By: #### 1 90097, [id number], [id number] #### [facility] [address] [place] [address] Mud Boss: Simba Obrien MD Anti-D 4+ [facility] Comment on above: Performed By: #### 1 64718, [id number], [id number] #### [facility] [address] [place] [address] Mud Boss: Simba Obrien MD b cells 2+ [facility] Comment on above: Performed By: #### 1 99438, [id number], [id number] #### [facility] [address] [place] [address] Mud Boss: Simba Obrien MD Patient History Check Previous Hx Normal So [facility] Comment on above: Performed By: #### 1 54314, [id number], [id number] #### [facility] [address] [place] [address] Mud Boss: Simba Obrien MD ABSCon 12-07-2024 ABSC Final Interp Positive Normal [facility] Comment on above: Result Comment: 11/10 8:02 [id number] ARC reference specimen being sent for further testing; See ABID result. Performed By: #### 1 57651, [id number], [id number] #### [facility] [address] [place] [address] Mud Boss: Simba Obrien MD Pt Hx check done? Yes Normal [facility] Comment on above: Performed By: #### 1 61461, [id number], [id number] #### [facility] [address] [place] [address] Mud Boss: Simba Obrien MD VS SCI Gel 2+ [facility] Comment on above: Performed By: #### 1 91142, [id number], [id number] #### [facility] [address] [place] [address] Mud Boss: Simba Obrien MD VS SCII Gel 2+ [facility] Comment on above: Performed By: #### 1 91312, [id number], [id number] #### [facility] [address] [place] [address] Mud Boss: Simba Obrien MD ABSC MANUALon 12-07-2024 37 0 [facility] Comment on above: Performed By: #### 1 74301, [id number], [id number] #### [facility] [address] [place] [address] Mud Boss: Simba Obrien MD ABSC Final Interp Positive Abnormal [facility] Comment on above: Result Comment: 11/10 8:18 [id number] ARC reference specimen being sent for further testing; See ABID result. Performed By: #### 1 14970, [id number], [id number] #### [facility] [address] [place] [address] Mud Boss: Simba Obrien MD [facility] 1+ [facility] Comment on above: Performed By: #### 1 [id number], [id number] #### [facility] [address] [place] [address] 97959 Mud Boss: Simba Obrien MD CC 2+ [facility] Comment on above: Performed By: #### 1 [id number], [id number], [id number] #### [facility] [address] [place] [address] 67607 Mud Boss: Simba Obrien MD Pt Hx check done? Yes Normal [facility] Comment on above: Performed By: #### 1 14530, [id number], [id number] #### [facility] [address] [place] [address] 67306 Mud Boss: Simba Obrien MD Admission Assessment Adulton 12-07-2024 Admission Assessment Adult Adult Admission Data Entered On: 12/07/2024 20:47 EDT Performed On: 12/07/2024 20:45 EDT by Reyes Silva RN, Daniela GEORGE Bracelets Patient Safety Grid ID Band on and Verified : Yes Allergy Landscape Management Technician : Yes Latex Tote : Yes Diabetic Landscape Management Technician : Yes Fall Risk Landscape Management Technician : Yes No Blood Landscape Management Technician : No Restricted Extremity Band On : No [facility] 12/07/2024 23:39 EDT (As Of: 12/07/2024 23:42:13 EDT) Allergies (Active) No Known Medication Allergies Estimated Onset Date: Unspecified ; Created By: Deana Quintero MA; Reaction Status: Active ; Category: Drug ; Substance: No Known Medication Allergies ; Type: Allergy ; Updated By: Deana Quintero MA; Reviewed Date: 12/07/2024 23:39 EDT Subjective Pain Symptoms : No Numeric Pain Scale Acceptable Intensity : 0 = No Pain General Symptoms : Fatigue Sensory Deficits : None Cardiopulmonary Symptoms : None GI Symptoms : None Skin Symptoms : None Genitourinary Symptoms : None Neuromuscular Symptoms : None Hours of Sleep : 6 hr Abuse/Violence Concerns? : Patient denies Reyes Silva RN Daniela - 12/07/2024 20:45 EDT Depression Screening Patient able to verbalize? : Yes Feeling Down, Depressed, Hopeless : Not at all Little Interest - Pleasure in Activities : Not at all Initial Depression Screen Score : 0 Depression Screening Score 0 : No IP Pt being evaluated or treated for BH conditions : No Reyes Silva RN [facility] - 12/07/2024 20:45 EDT Nayeli Coma Eye Opening Response Nayeli : Spontaneously Best Verbal Response Nayeli : Oriented Best Motor Response Ovid : Obeys simple commands Ovid Coma Score : 15 [facility] 12/07/2024 23:39 EDT Neuro Characteristics of Speech : Clear Orientation : Oriented x 3 Level of Consciousness : Alert Affect / Behavior : Appropriate, Calm Sensory Perception Irving : No impairment Extremity Movement : Equal Gait : Steady with assist Aspiration Risk : None CN VII Facial Expression and Symmetry : Facial movement symmetrical Domo Ontiveros RN 12/07/2024 23:39 EDT CardioVascular Heart Rhythm : Regular Capillary Refill : Less than 2 seconds Edema : Generalized Domo Ontiveros RN 12/07/2024 23:39 EDT Respiratory Respirations : Unlabored Respiratory Pattern Description : Regular Cough : None Domo Ontiveros RN 12/07/2024 23:39 EDT Musculoskeletal Activity Irving : Walks occasionally Mobility Irving : Slightly limited Ambulatory Devices : None Special Orthopedic Devices : None ADLs : Moderate assist Weston PEPE, Manuel - 12/07/2024 23:39 EDT GI Abdomen Description : Rounded Abdomen Palpation : Non-Tender, Soft Passing Flatus : Yes Bowel Movement Last Date Known : No [facility] 12/07/[facility]24 23:39 EDT Bladder Distention : Absent [facility]on [facility], [facility] 12/07/2024 23:39 EDT Integumentary Skin Integrity : Intact Skin Temperature : Warm Skin Color : Normal for ethnicity Skin Turgor : Elastic Mucous Membrane Color : [place] Mucous Membrane Description : Moist Skin Description : Dry Weston PEPE, Domo - 12/07/2024 23:39 EDT Present on Admission Medical Devices : None Medical Devices for Med Administration : None Reyes Silva RN Daniela - 12/07/2024 20:45 EDT Education Responsible Learner/s Present : No Data Available Barriers to Learning : None evident TeachBack Methodology : TeachBack Daniela Velez RN - 12/07/2024 20:45 EDT Equipment/Devices : Verbalizes understanding Pain Management : Verbalizes understanding Plan of Care : Verbalizes understanding Safety, Fall : Verbalizes understanding Daniela Velez RN - 12/07/2024 20:45 EDT Notifications PCP notified of your admission? : Yes Emergency Contact notified of your admission? : No Daniela Velez RN 12/07/2024 20:45 EDT Normal [facility] Comment on above: Order Comment: Order entered secondary to admissionVirtual nurse section completed. Bedside nurse to complete remaining section. B12 FOLATEon 12-07-2024 Cobalamin (Vitamin B12) [Mass/Vol] 1294 pg/mL High 211-911 [facility] Comment on above: Order Comment: Add t o this a.m. blooddraw Performed By: #### 1 65925, [id number], [id number] #### [facility] [address] [id number] Mud Boss: Simba Obrien MD FOLATE 22.5 ng/mL High 5.4-17.5 [facility] Comment on above: Order Comment: Add t o this a.m. blooddraw Result Comment: Meth otrexate and leucovorin interfere with folate measurement because these drugs cross-react with folate binding proteins. Performed By: #### 1 25028, [id number], 032170 #### [facility] [address] [place] [address] Mud Boss: Simba Obrien MD BASICMETAon 12-07-2024 Calcium [Mass/Vol] 8.3 mg/dL Low 8.7-10.4 [facility] Comment on above: Performed By: #### 1 54460, [id number], [id number] #### [facility] [address] [place] [address] 79047 Mud Boss: Simba Obrien MD Chloride [Moles/Vol] 111 mmol/L High 98-107 [facility] Comment on above: Performed By: #### 1 45046, 211606, [id number] #### [facility] [address] [place] [address] 56521 Mud Boss: Smiba Obrien MD CO2 [Moles/Vol] 23.0 mmol/L Normal 20.0-31.0 [facility] Comment on above: Performed By: #### 1 72416, [id number], [id number] #### [facility] [address] [place] [address] 27879 Mud Boss: Simba Obrien MD Creatinine [Mass/Vol] 1.9 mg/dL High 0.6-1.1 [facility] Comment on above: Performed By: #### 1 87894, 611575, 813652 #### [facility] [address] [place] [address] 85432 Mud Boss: Simba Obrien MD GFR AA 42 [facility] Comment on above: Result Comment: Afri can [place] GFR Calc Medical judgement is necessary to interpret GFR. The calculated GFR may not accurately reflect renal status in patients >70 years, women, acutely ill hospitalized patients and patients with acute renal failure or known renal disease. The MDRD GFR formula is valid only for adults greater than 18 years of age. Note: Creatinine clearance (not GFR) should be used for drug dosing. Calculated result performed using the MDRD GFR equation Performed By: #### 1 33505, [id number], [id number] #### [facility] [address] [place] [address] Mud Boss: Simba Obrien MD Glomerular Filtration Rate 35 mL/min/1.73m? Normal [facility] Comment on above: Result Comment: Non- GFR Calc Medical judgement is necessary to interpret GFR. The calculated GFR may not accurately reflect renal status in patients >70 years, women, acutely ill hospitalized patients and patients with acute renal failure or known renal disease. The MDRD GFR formula is valid only for adults greater than 18 years of age. Note: Creatinine clearance (not GFR) should be used for drug dosing. Calculated result performed using the MDRD GFR equation Performed By: #### 1 , [id number], [id number] #### [facility] [address] [place] [address] 09619 Mud Boss: Simba Obrien MD Glucose [Mass/Vol] 92 mg/dL Normal 74-106 [facility] Comment on above: Performed By: #### 1 , 000591, [id number] #### [facility] [address] [place] [address] 50546 Mud Boss: Simba Obrien MD Osmolality [Osmolality] 290 mosm/kg Normal 275-295 [facility] Comment on above: Performed By: #### 1 , 097145, 024837 #### [facility] [address] [place] [address] 41960 Mud Boss: Simba Obrien MD Potassium [Moles/Vol] 4.2 mmol/L Normal 3.5-5.1 [facility] Comment on above: Performed By: #### 1 , 052629, 229314 #### [facility] [id number] [place] [address] 12638 Mud Boss: Simba Obrien MD Sodium [Moles/Vol] 142 mmol/L Normal 135-145 [facility] Comment on above: Performed By: #### 1 20513, 015829, 909793 #### [facility] [address] [place] [address] Mud Boss: Simba Obrien MD Urea nitrogen [Mass/Vol] 32 mg/dL High 9-23 [facility] Comment on above: Result Comment: - Ve nipuncture should occur prior to N-Acetyl Cysteine (NAC) or Metamizole (Sulpyrine) administration due to the potential for falsely depressed results. - Blood samples from some patients with monoclonal gammopathies may produce falsely elevated results Performed By: #### 1 44318, 937691, 138208 #### [facility] [address] [place], [place] [id number] Mud Boss: Simba Obrien MD Urea nitrogen/Creatinine [Mass ratio] 16.8 mg/mg Normal [facility] Comment on above: Performed By: #### 1 97894, 928765, 550273 #### [facility] [address] [place] [address] Mud Boss: Simba Obrien MD [facility] Basic Admission Information Basic Admission Information Entered On: 12/07/2024 19:01 EDT Performed On: 12/07/2024 19:01 EDT by Carmenza Driver Admission Height/Weight Height/Length Measured : 177 cm(Converted to: 5.81 ft, 69.69 in) Height/Length Dosing : 180.34 cm(Converted to: 5.92 ft, 71.00 in) Weight Measured : 87.5 kg(Converted to: 192 lb 14 oz, 192.905 lb) Weight Dosing : 87.5 kg(Converted to: 3,086.472 oz, 192.905 lb) BSA Measured : 2.07 BSA Dosing : 2.09 Body Mass Index Measured : 27.93 kg/m2 Body Mass Index Dosing : 27 Weight Measured Type of Scale : Bed Scale (digital) Last Documented Height/Length : Height/Length Dosin.34 cm 12/06/24 16:50:00 Height/Length Estimated: No results available. Height/Length Measured: No results available. Last Documented Weight and Type of Scale Used : Weight Measured Type of Scale: Bed Scale (digital) 12/07/24 19:00:00 Weight Measured: 87.5 kg 12/07/24 19:00:00 Weight Dosing: No results available. 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 Personal Devices : Dentures, upper Carmenza Driver - 12/07/2024 19:01 EDT Room Orientation/Facility Policy Reviewed : Yes Room Orientation/Policy Reviewed With : Patient Patient Safety : Bed / Chair Alarm, Bed in low position, Call device within reach, Fall telephone quotation clerk ID Band, Falling [place], ID band check, Mobility support items readily available, Night light, Non-Slip footwear, Personal items within reach, Sensory aids within reach, Upper/Half-length side-rails up, Traffic path in room free of clutter, Wheels locked Demonstrates Ability to Use Call Light Successfully : Yes Carmenza Driver - 12/07/2024 19:01 EDT Normal [facility] Comment on above: Order Comment: Order entered secondary to admission CBCNDon 12-07-2024 DxH Actions See Notes Abnormal [facility] Comment on above: Result Comment: SNV Performed By: #### 1 01933, [id number], 835334 #### [facility] [id number] [place] [address] 44130 Mud Boss: Simba Obrien MD Erythrocyte distribution width (RBC) [Ratio] 20.8 % High 11.5-14.5 [facility] Comment on above: Performed By: #### 1 98265, 859187, 313171 #### [facility] [address] [place] [address] Mud Boss: Simba Obrien MD Hematocrit (Bld) [Volume fraction] 17.7 % Critically abnormal 41.0-52.0 [facility] Comment on above: Performed By: #### 1 95107, 260636, 619876 #### [facility] [address] [place] [address] 14147 Mud Boss: Simba Obrien MD Hemoglobin (Bld) [Mass/Vol] 5.6 g/dL Critically abnormal 13.5-17.5 [facility] Comment on above: Result Comment: Resu lts rechecked and called to ELAINE THURSTON, 12/07/2024 06:40:26 EDT..tw Performed By: #### 1 , 265602, [id number] #### [facility] [address] [place] [address] 19182 Mud Boss: Simba Obrien MD Instr WBC ND 5.2 Normal [facility] Comment on above: Performed By: #### 1 , 180457, [id number] #### [facility] [address] [place] [address] 68577 Mud Boss: Simba Obrien MD MCH (RBC) [Entitic mass] 28.5 pg Normal 27.0-34.0 [facility] Comment on above: Performed By: #### 1 , 552765, 457928 #### [facility] [address] [place] [address] 31063 Mud Boss: Simba Obrien MD MCHC (RBC) [Mass/Vol] 31.6 g/dL Low 32.0-37.0 [facility] Comment on above: Performed By: #### 1 , 773964, 573536 #### [facility] [address] [place] [address] 75413 Mud Boss: Simba Obrien MD MCV (RBC) [Entitic vol] 90.3 fL Normal 80.0-100.0 [facility] Comment on above: Performed By: #### 1 , 408034, 039986 #### [facility] [address] [place] [address] 43942 Mud Boss: Simba Obrien MD Platelet 258 x10 Normal 150-450 [facility] Comment on above: Performed By: #### 1 06771, 023424, 336831 #### [facility] [address] [place] [address] 54261 Mud Boss: Simba Obrien MD Platelet mean volume (Bld) [Entitic vol] 6.4 fL Low 7.4-10.4 [facility] Comment on above: Performed By: #### 1 77825, 233899, 008482 #### [facility] [address] [place] [address] 62135 Mud Boss: Simba Obrien MD RBC 1.96 x10 Low 4.70-6.10 [facility] Comment on above: Result Comment: Note : RBC morphology is normal unless otherwise stated. Evaluation performed only if differential is requested. Performed By: #### 1 22645, 462165, 738259 #### [facility] [address] [place] [address] 57952 Mud Boss: Simba Obrien MD WBC 5.2 x10 Normal 4.5-11.0 [facility] Comment on above: Performed By: #### 1 28287, 790600, 403290 #### [facility] [address] [place] [address] 14077 Mud Boss: Simba Obrien MD ALIX C3D TUBEon 12-07-2024 5 min Rm Temp 0 Normal [facility] Comment on above: Performed By: #### 5 [id number] #### [facility] [address] [place] [address] 83146 Mud Boss: Simba Obrien MD CC Not Done Normal [facility] Comment on above: Performed By: #### 5 [id number] #### [facility] [address] [place] [address] 97906 Mud Boss: Simba Obrien MD ALIX Complement Interp Positive Normal [facility] Comment on above: Performed By: #### 5 [id number] #### [facility] [address] [place] [address] Mud Boss: Simba Obrien MD IS 0 Normal [facility] Comment on above: Performed By: #### 5 [id number] #### [facility] [address] [place] [address] Mud Boss: Simba Obrien MD ED Physician Reporton 2024 ED Physician Report TERE BARONE :1950 Registration Date:12/06/2024 Basic Information Time Seen: DEANNE BUTTERFIELD MD / 12/06/2024 18:20 Arrival Mode: Walk-In _ History Source: Patient, Spouse _ History limitation: None _ History of Present Illness This is a 74 y/o male who presents to the ED for vomiting for a week. Patient noted that he has been unable to keep down any food and vomited once today. Patient also has been having diarrhea this week, patient does have history of vascular dementia, patient mainly complains of diarrhea and nausea and vomiting, denies any diarrhea today, patient also has been sleeping more per spouse and has had a poor appetite. Patient voices no other complaints. Review of Systems Constitutional symptoms: Negative except as documented in HPI. Skin symptoms: Negative except as documented in HPI. Eye symptoms: Negative except as documented in HPI. ENMT symptoms: Negative except as documented in HPI. Respiratory symptoms: Negative except as documented in HPI. Cardiovascular symptoms: Negative except as documented in HPI. Gastrointestinal symptoms: Negative except as documented in HPI. Genitourinary symptoms: Negative except as documented in HPI. Musculoskeletal symptoms: Negative except as documented in HPI. Psychiatric symptoms: Negative except as documented in HPI. Neurologic symptoms: Negative except as documented in HPI. Additional review of systems information: All other systems reviewed and otherwise negative, Systems negative except as stated in the H&P. Physical Exam Vitals & Measurements Initial: T: 36.9 ?C (Oral) HR: 103 (Peripheral) BP: 129/76 RR: 16 SpO2: 98% O2 Therapy: Room air O2 Flow: 0 L/min Latest: HR: 96 (Peripheral) BP: 126/69 RR: 18 SpO2: 97% O2 Therapy: Room air Vital Signs: [Per nurse's notes.] General: [Alert. No distress.] Skin: [Warm, dry, no rash.] Head: [Normocephalic, atraumatic.] Neck: [Supple, trachea midline. No midline tenderness.] Eye: [Pupils are equal, round and reactive to light, extraocular movements are intact, normal conjunctiva.] Ears, nose, mouth and throat: [Oral mucosa moist. No pharyngeal erythema or exudates.] Cardiovascular: [Regular rate and rhythm, no murmur. No edema. Distal pulses intact.] Respiratory: [Lungs are clear to auscultation, respirations are non-labored, breath sounds are equal.] Chest wall: [No tenderness, no deformity.] Back: [Nontender, normal range of motion, normal alignment.] Musculoskeletal: [Normal ROM, normal strength, no tenderness, no swelling, no deformity.] Gastrointestinal: [Soft, nontender, non distended, no guarding or rebound.] Rectal exam performed with cigar bander hand. Negative for guaiac stool. Genitourinary: [Deferred.] Lymphatics: [No lymphadenopathy.] Psychiatric: [Cooperative, appropriate mood & affect.] Neurological: [Alert and oriented to person, place, time, and situation, no focal neurological deficit observed.] Medical Decision Making Patient presenting to the emergency department with complaints of vomiting. No associated pain. Patient does have history of dementia. Alternative history obtained from patient's . General chart review was performed. Nursing notes reviewed. Comorbidities were reviewed. Recent hospital admission notes and discharge summaries were reviewed if applicable. Vitals signs stable. Differential diagnosis includes ACS, electrolyte derangement, pancreatitis, gastritis, cholecystitis. EKG, if performed, was interpreted by me. Patient was placed on vehicle monitor technician during entire ED course. Laboratory and imaging (including reports) reports were reviewed and interpreted by me. Labs and imaging were compared to prior studies if available. Chemistries demonstrate TONA with creatinine 2.1, BUN 40 which is elevated when compared to previous labs. Chloride elevated at 109. No other significant electrolyte derangement. No hypomagnesemia. No transaminitis with total bilirubin elevated at 1.3, alk phos 135. Osmolality high at 296. Lipase within normal limits. Iron low at 40. TIBC within normal limits at 283. No lactic acidosis. No thyroid dysfunction. High-sensitivity troponin within normal limits x 2. No coagulopathy. CBC demonstrates anemia with hemoglobin 6.6 with MCV within normal limits at 90. Will type and cross for blood transfusion. Rectal exam was negative for active GI bleeding. No leukocytosis, thrombocytopenia, left shift. Inflammatory markers elevated with ESR greater than 145, CRP 5.8. Procalcitonin elevated at 0.62. Urinalysis shows few bacteria without pyuria, leukocyte esterase, nitrites. CT abdomen/pelvis demonstrates 1.2 x 0.6 cm stone to the distal left ureter with resultant hydroureteronephrosis and perinephric stranding. Patient was reassessed by me in the ER. Vital signs stable. No criteria for sepsis at this time. Patient's inflammatory markers are elevated. Procalcitonin is (more content not included)... Normal [facility] FERRITINon 12-07-2024 Ferritin [Mass/Vol] 303 ng/mL Normal 22-[address] [facility] Comment on above: Order Comment: Add t o this a.m. blooddraw Result Comment: Seru m ferritin values are elevated in the presence of the following conditions and do not reflect actual body iron stores: - Inflammation - Significant tissue destruction - Liver disease - Malignancies such as acute leukemia and Hodgkin?s disease - Therapy with iron supplements Performed By: #### 1 32376, [id number], 124934 #### [facility] [address] [place] [address] 56468 Mud Boss: Simba Obrien MD POC Glucoseon 12-07-2024 Glucose [Mass/Vol] 117 mg/dL High 72-100 [facility] Comment on above: Performed By: #### 1 [id number] #### [facility] [address] [place] [address] Mud Boss: Simba Obrien MD Glucose [Mass/Vol] 92 mg/dL Normal 72-100 [facility] Comment on above: Performed By: #### 1 74052, 633373, 696582 #### [facility] [address] [place] [address] Mud Boss: Simba Obrien MD TROPONIN HS 6HRon 12-07-2024 Delta Troponin 6 Hr 1 pg/mL Normal 0-[address] [facility] Comment on above: Result Comment: The term acute myocardial infarction should be used when there is acute myocardial injury with clinical evidence of acute myocardial ischemia and the rise or fall of serial Troponin HS values (delta troponin) greater than or equal to 15 pg/mL with at least one Troponin HS value above the 99th percentile reference range Performed By: #### 1 45268, 742250 #### [facility] [address] [place] [address] 49823 Mud Boss: Simba Obrien MD Troponin HS 6 Hr 7 pg/mL Normal 3-53 [facility] Comment on above: Result Comment: Spec imens from some individuals with pathologically high gamma globulin levels may demonstrate depressed troponin values Performed By: #### 1 26763, 237702 #### [facility] [address] [place] [address] 28595 Mud Boss: Simba Obrien MD ABORHon 12-06-2024 ABOR Interpretation Positive Normal [facility] Comment on above: Performed By: #### 5 [id number] #### [facility] [address] [place] [address] 90585 Mud Boss: Simba Obrien MD Patient History Check Previous Hx Normal So [facility] Comment on above: Performed By: #### 5 [id number] #### [facility] [address] [place] [address] 15907 Mud Boss: Simba Obrien MD VS 0.8% a cells 0 Normal [facility] Comment on above: Performed By: #### 5 [id number] #### [facility] [address] [place] [address] 69797 Mud Boss: Simba Obrien MD VS 0.8% b cells 1+ Normal [facility] Comment on above: Performed By: #### 5 [id number] #### [facility] [address] [place] [address] 23876 Mud Boss: Simba Obrien MD VS Anti-A Unit 4+ Normal [facility] Comment on above: Performed By: #### 5 [id number] #### [facility] [address] [place] [address] 62864 Mud Boss: Simba Obrien MD VS Anti-B Unit 0 Normal [facility] Comment on above: Performed By: #### 5 [id number] #### [facility] [address] [place] [address] 26696 Mud Boss: Simba Obrien MD VS Anti-D Unit 4+ Normal [facility] Comment on above: Performed By: #### 5 [id number] #### [facility] [address] [place] [address] 58617 Mud Boss: Simba Obrien MD ABSCon 12-06-2024 ABSC Final Interp Positive [facility] Comment on above: Result Comment: 11/10 22:56 [id number] See results of ABID..ah Performed By: #### 5 [id number] #### [facility] [facility] [address] [place] [address] 70468 Mud Boss: Simba Obrien MD Pt Hx check done? Yes [facility] Comment on above: Result Comment: 11/10 22:56 [id number] Per , patient states no history of transufusion...ah Performed By: #### 5 [id number] #### [facility] [address] [place] [address] 52026 Mud Boss: Simba Obrien MD VS SCI Gel 2+ [facility] Comment on above: Performed By: #### 5 [id number] #### [facility] [address] [place] [address] 67373 Mud Boss: Simba Obrien MD VS SCII Gel 3+ [facility] Comment on above: Performed By: #### 5 [id number] #### [facility] [address] [place] [address] 34387 Mud Boss: Simba Obrien MD APTTon 12-06-2024 aPTT Coag (Bld) [Time] 29.8 s Normal 26.0-36.0 So [facility] Comment on above: Result Comment: APTT Interpretation: This test has not been validated to monitor heparin therapy. APTT test is used as an initial test for suspected bleeding disorder. Anti-Xa UFH test is used to monitor heparin therapy. Performed By: #### 1 [id number] #### [facility] [address] [place], [place] [address] Mud Boss: Simba Obrien MD AUTO DIFFon 12-06-2024 Baso Count 0.02 x1000 Normal 0.00-0.20 [facility] Comment on above: Performed By: #### 1 [id number] #### [facility] [address] [place], [place] [address] Mud Boss: Simba Obrien MD Basos % 0.3 % Normal [facility] Comment on above: Performed By: #### 1 [id number] #### [facility] [address] [place], [place] [address] Mud Boss: Simba Obrien MD Eos Count 0.01 x1000 Normal 0.00-0.50 [facility] Comment on above: Performed By: #### 1 [id number] #### [facility] [address] [place], [place] [address] Mud Boss: Simba Obrien MD Eosinophils/100 WBC (Bld) 0.2 % Normal [facility] Comment on above: Performed By: #### 1 [id number] #### [facility] [address] [place], [place] [address] Mud Boss: Simba Obrien MD Lymph Count 1.56 x1000 Normal 1.20-4.80 [facility] Comment on above: Performed By: #### 1 [id number] #### [facility] [address] [place] [address] 86265 Mud Boss: Simba Obrien MD Lymphocytes/100 WBC (Bld) 28.6 % Normal [facility] Comment on above: Performed By: #### 1 [id number] #### [facility] [address] [place] [address] 99656 Mud Boss: Simba Obrien MD Bossier Count 0.34 x1000 Normal 0.10-1.00 [facility] Comment on above: Performed By: #### 1 [id number] #### [facility] [address] [place] [address] 05686 Mud Boss: Simba Obrien MD Monocytes/100 WBC (Bld) 6.3 % Normal [facility] Comment on above: Performed By: #### 1 [id number] #### [facility] [address] [place] [address] 31834 Mud Boss: Simba Obrien MD Neutrophil Count (ANC) 3.52 x1000 Normal 1.40-8.80 So [facility] Comment on above: Performed By: #### 1 [id number] #### [facility] [address] [place] [address] 71475 Mud Boss: Simba Obrien MD Neutrophils/100 WBC (Bld) 64.6 % Normal [facility] Comment on above: Performed By: #### 1 [id number] #### [facility] [address] [place] [address] 49373 Mud Boss: Simba Obrien MD Red Blood Cell Morphology See Notes Abnormal [facility] Comment on above: Result Comment: Anis ocytosis 3+ Poikilocytosis 1+ Teardrop cells 1+ Performed By: #### 1 [id number] #### [facility] [address] [place] [address] 58439 Mud Boss: Simba Obrien MD Scan Differential Diff Scd Normal [facility] Comment on above: Result Comment: Slid e reviewed by technologist. Performed By: #### 1 [id number] #### [facility] [address] [place] [address] 60832 Mud Boss: Simba Obrien MD COMPMETAon 12-06-2024 Albumin [Mass/Vol] 3.0 g/dL Low 3.4-5.0 [facility] Comment on above: Performed By: #### 1 63706, [id number] #### [facility] [address] [place] [address] 72156 Mud Boss: Simba Obrien MD Albumin/Globulin [Mass ratio] 0.9 {ratio} Normal [facility] Comment on above: Performed By: #### 1 [id number], [id number] #### [facility] [address] [place] [address] 13404 Mud Boss: Simba Obrien MD Alk Phos 135 unit/L High 45-117 [facility] Comment on above: Performed By: #### 1 41601, [id number] #### [facility] [address] [place] [address] 75613 Mud Boss: Simba Obrien MD Bilirubin [Mass/Vol] 1.30 mg/dL High 0.30-1.20 [facility] Comment on above: Result Comment: Use of this assay is not recommended for patients undergoing treatment with eltrombopag due to the potential for falsely elevated results. Performed By: #### 1 51251, [id number] #### [facility] [address] [place] [address] 96660 Mud Boss: Simba Obrien MD Calcium [Mass/Vol] 8.8 mg/dL Normal 8.7-10.4 [facility] Comment on above: Performed By: #### 1 91947, [id number] #### [facility] [address] [place] [address] 28265 Mud Boss: Simba Obrien MD Chloride [Moles/Vol] 109 mmol/L High 98-107 [facility] Comment on above: Performed By: #### 1 85371, [id number] #### [facility] [address] [place] [address] Mud Boss: Simba Obrien MD CO2 [Moles/Vol] 23.0 mmol/L Normal 20.0-31.0 [facility] Comment on above: Performed By: #### 1 10506, [id number] #### [facility] [address] [place] [address] 77318 Mud Boss: Simba Obrien MD Creatinine [Mass/Vol] 2.1 mg/dL High 0.6-1.1 [facility] Comment on above: Performed By: #### 1 41522, 788743 #### [facility] [address] [place] [address] 23612 Mud Boss: Simba Obrien MD GFR AA 37 [facility] Comment on above: Result Comment: Afri can [place] GFR Calc Medical judgement is necessary to interpret GFR. The calculated GFR may not accurately reflect renal status in patients >70 years, women, acutely ill hospitalized patients and patients with acute renal failure or known renal disease. The MDRD GFR formula is valid only for adults greater than 18 years of age. Note: Creatinine clearance (not GFR) should be used for drug dosing. Calculated result performed using the MDRD GFR equation Performed By: #### 1 43726, [id number] #### [facility] [address] [place] [address] 01411 Mud Boss: Simba Obrien MD Globulin (S) [Mass/Vol] 3.4 g/dL Normal [facility] Comment on above: Performed By: #### 1 85203, [id number] #### [facility] [address] [place] [address] 78219 Mud Boss: Simba Obrien MD Glomerular Filtration Rate 31 mL/min/1.73m? [facility] Comment on above: Result Comment: Non- GFR Calc Medical judgement is necessary to interpret GFR. The calculated GFR may not accurately reflect renal status in patients >70 years, women, acutely ill hospitalized patients and patients with acute renal failure or known renal disease. The MDRD GFR formula is valid only for adults greater than 18 years of age. Note: Creatinine clearance (not GFR) should be used for drug dosing. Calculated result performed using the MDRD GFR equation Performed By: #### 1 [id number], [id number] #### [facility] [address] [place] [address] 53370 Mud Boss: Simba Obrien MD Glucose [Mass/Vol] 123 mg/dL High 74-106 [facility] Comment on above: Performed By: #### 1 28020, 910017 #### [facility] [address] [place] [address] 54315 Mud Boss: Simba Obrien MD GOT 30 unit/L Normal 15-37 [facility] Comment on above: Performed By: #### 1 64468, 575974 #### [facility] [address] [place] [address] 47203 Mud Boss: Simba Obrien MD GPT 9 unit/L Low 10-49 [facility] Comment on above: Performed By: #### 1 87951, 475730 #### [facility] [address] [place] [address] 68102 Mud Boss: Simba Obrien MD Osmolality [Osmolality] 296 mosm/kg High 275-295 [facility] Comment on above: Performed By: #### 1 25497, [id number] #### [facility] [address] [place] [address] 22050 Mud Boss: Simba Obrien MD Potassium [Moles/Vol] 5.0 mmol/L Normal 3.5-5.1 [facility] Comment on above: Performed By: #### 1 47332, [id number] #### [facility] [address] [place] [address] 56845 Mud Boss: Simba Obrien MD Protein [Mass/Vol] 6.4 g/dL Normal 5.7-8.2 [facility] Comment on above: Result Comment: Tota l Protein results may be increased in patients receiving dextran as a blood volume dietitian Performed By: #### 1 04757, 234845 #### [facility] [address] [place] [address] 68670 Mud Boss: Simba Obrien MD Sodium [Moles/Vol] 143 mmol/L Normal 135-145 [facility] Comment on above: Performed By: #### 1 69915, [id number] #### [facility] [address] [place] [address] 18257 Mud Boss: Simba Obrien MD Urea nitrogen [Mass/Vol] 40 mg/dL High 9-23 [facility] Comment on above: Result Comment: - Ve nipuncture should occur prior to N-Acetyl Cysteine (NAC) or Metamizole (Sulpyrine) administration due to the potential for falsely depressed results. - Blood samples from some patients with monoclonal gammopathies may produce falsely elevated results Performed By: #### 1 90834, [id number] #### [facility] [address] [place] [address] 27480 Mud Boss: Simba Obrien MD Urea nitrogen/Creatinine [Mass ratio] 19.0 mg/mg Normal [facility] Comment on above: Performed By: #### 1 06959, [id number] #### [facility] [address] [place] [address] 05058 Mud Boss: Simba Obrien MD CRP QUANTon 12-06-2024 C-Reactive Protein, Quantitative 5.8 mg/dL High 0.0-0.5 [facility] Comment on above: Result Comment: ?- C RP testing for cardiovascular risk assessment should not be performed while there is an indication of active infection, systemic inflammation, or trauma. Performed By: #### 5 [id number] #### [facility] [address] [place] [address] 02698 Mud Boss: Simba Obrien MD CT ABD PELVIS WO IV CONTRAST on 12-06-2024 CT ABD PELVIS WO IV CONTRAST EXAM: CT Abdomen and Pelvis without contrast INDICATION: vomiting;OTHER REASON TECHNIQUE: Helical CT of the abdomen and pelvis was obtained from the diaphragm through the ischial tuberosities without contrast. 5 mm axial images were created as were coronal and sagittal reformats. Dose reduction techniques were used including automated exposure control and/or adjustment of the mA and/or kV according to patient size. COMPARISON: The lack of IV contrast significantly decreases the sensitivity of this study for the evaluation of solid abdominal organs, hollow viscera and vascular structures. FINDINGS: LUNG BASES: No significant abnormality. LIVER: No significant abnormality. BILIARY: No significant abnormality. PANCREAS: No significant abnormality. SPLEEN: Enlarged measuring up to 20 cm. ADRENAL GLANDS: No significant abnormality. KIDNEYS/BLADDER: There is a 1.2 x 0.6 cm stone in the distal left ureter with resultant hydroureteronephrosis and perinephric stranding. Additional bilateral nephrolithiasis present. The urinary bladder is unremarkable. The prostate gland is unremarkable. STOMACH/DUODENUM: No significant abnormality. Atherosclerosis present. GI TRACT: No bowel obstruction. The appendix is normal. Diverticulosis present without diverticulitis VESSELS: Nonaneurysmal abdominal aorta. LYMPH NODES: No enlarged abdominal or pelvic lymph nodes. OTHER PELVIC: No free pelvic fluid. OTHER: No pneumoperitoneum. ABDOMINAL WALL: No significant abnormality. BONES/SPINE: Degenerative changes of the lumbar spine. Chronic anterolisthesis of L5 on S1 with osseous fusion across L5-S1. Chronic mild superior plate compression of T8. IMPRESSION: There is a 1.2 x 0.6 cm stone in the distal left ureter with resultant hydroureteronephrosis and perinephric stranding. Additional bilateral nephrolithiasis present. Splenomegaly INCIDENTAL FINDINGS: None requiring follow-up. Electronically signed by: Michelle Ward MD 12/06/2024 08:57 PM EDT Technologist: SLAVA,VENITA,QUANG Dictated By: MICHELLE WARD MD Signed By: MICHELLE WARD MD Signed Out: 12/06/24 20:57:10 Normal [facility] DATon 12-06-2024 ALIX Polyspecific Interp Positive Normal [facility] Comment on above: Performed By: #### 5 [id number] #### [facility] [address] [place] [address] 29776 Mud Boss: Simba Obrien MD VS ALIX Poly 3+ Normal [facility] Comment on above: Performed By: #### 5 [id number] #### [facility] [address] [place] [address] 73144 Mud Boss: Simba Obrien MD ALIX EXP IGGon 12-06-2024 ALIX IgG Interp Positive Normal [facility] Comment on above: Performed By: #### 5 [id number] #### [facility] [address] [place] [address] 24894 Mud Boss: Simba Obrien MD HEMOon 12-06-2024 DIFF? No Normal [facility] Comment on above: Performed By: #### 1 77951, 813744 #### [facility] [address] [place] [address] 50037 Mud Boss: Simba Obrien MD HEM PATH REVIEW See Diff Review Interp Normal [facility] Comment on above: Performed By: #### 1 41082, 967673 #### [facility] [address] [place] [address] 34208 Mud Boss: Simba Obrien MD Nucleated RBC 0 /100WBC Normal [facility] Comment on above: Performed By: #### 1 13891, 520148 #### [facility] [address] [place] [address] 30183 Mud Boss: Simba Obrien MD DxH Actions See Notes Abnormal [facility] Comment on above: Result Comment: SNV Performed By: #### 1 05998, 455115 #### [facility] [address] [place] [address] 75473 Mud Boss: Simba Obrien MD Erythrocyte distribution width (RBC) [Ratio] 21.1 % High 11.5-14.5 [facility] Comment on above: Performed By: #### 1 83410, 636112 #### [facility] [address] [place], [place] [address] Mud Boss: Simba Obrien MD Hematocrit (Bld) [Volume fraction] 20.5 % Critically abnormal 41.0-52.0 [facility] Comment on above: Performed By: #### 1 01936, 433110 #### [facility] [address] [place], [place] [address] Mud Boss: Simba Obrien MD Hemoglobin (Bld) [Mass/Vol] 6.6 g/dL Critically abnormal 13.5-17.5 [facility] Comment on above: Result Comment: Rech ecked and called critical H&H to RS in ER 12/06/2024 20:02:50 EDT by charley...rbr Performed By: #### 1 60228, 974354 #### [facility] [address] [place] [address] Mud Boss: Simba Obrien MD Instr WBC 5.4 Normal [facility] Comment on above: Performed By: #### 1 95560, 253074 #### [facility] [address] [place], [place] [address] Mud Boss: Simba Obrien MD MCH (RBC) [Entitic mass] 28.9 pg Normal 27.0-34.0 [facility] Comment on above: Performed By: #### 1 15812, 026828 #### [facility] [address] [place], [place] [address] Mud Boss: Simba Obrien MD MCHC (RBC) [Mass/Vol] 32.1 g/dL Normal 32.0-37.0 [facility] Comment on above: Performed By: #### 1 92615, 699901 #### [facility] [address] [place], [place] [address] Mud Boss: Simba Obrien MD MCV (RBC) [Entitic vol] 90.0 fL Normal 80.0-100.0 [facility] Comment on above: Performed By: #### 1 74100, 008790 #### [facility] [address] [place] [address] 22137 Mud Boss: Simba Obrien MD MDW 23.03 High 13.98-20.0 0 [facility] Comment on above: Result Comment: MDW Interpretation: - For adults age 18-89 in ED, MDW >20.0 may be associated with a higher risk of Sepsis during the first 12 hours of hospital admission. - The predictive value of MDW for identifying Sepsis in patients with hematological abnormalities has not been established. - Interpret with caution when immature granulocytes, variant lymphs, or blast cells are noted on the differential. - Confirm patient age is within intended use population (18-89 years) for MDW. - For ED adults suspected of Sepsis, MDW less than or equal to 20.0 does not rule out Sepsis or the risk of Sepsis. Performed By: #### 1 27017, 977519 #### [facility] [address] [place] [address] 59378 Mud Boss: Simba Obrien MD Platelet 286 x10 Normal 150-450 [facility] Comment on above: Performed By: #### 1 64544, 065165 #### [facility] [address] [place] [address] 08413 Mud Boss: Simba Obrien MD Platelet mean volume (Bld) [Entitic vol] 6.7 fL Low 7.4-10.4 [facility] Comment on above: Performed By: #### 1 05637, 459991 #### [facility] [address] [place] [address] 45723 Mud Boss: Simba Obrien MD RBC 2.27 x10 Low 4.70-6.10 [facility] Comment on above: Result Comment: Note : RBC morphology is normal unless otherwise stated. Evaluation performed only if differential is requested. Performed By: #### 1 44826, 632127 #### [facility] [address] [place] [address] 02705 Mud Boss: Simba Obrien MD WBC 5.4 x10 Normal 4.5-11.0 [facility] Comment on above: Performed By: #### 1 23030, 084829 #### [facility] [address] [place] [address] 25864 Mud Boss: Simba Obrien MD IRON GROUPon 12-06-2024 Iron [Mass/Vol] 40 ug/dL Low 65-175 [facility] Comment on above: Result Comment: Resu lts may be inaccurate if performed within 14 days of IV iron dextran administration. Performed By: #### 1 61304, 611504, 624957 #### [facility] [address] [place] [address] 79543 Mud Boss: Simba Obrien MD Saturation 14.1 % Low 20.0-50.0 [facility] Comment on above: Performed By: #### 1 05894, 321340, 833776 #### [facility] [address] [place] [address] 92101 Mud Boss: Simba Obrien MD TIBC 283 ug/ml Normal 250-425 [facility] Comment on above: Result Comment: Resu lts may be inaccurate if performed within 14 days of IV iron dextran administration. Performed By: #### 1 11466, [id number], 029719 #### [facility] [address] [place] [address] 88017 Mud Boss: Simba Obrien MD LACTATEon 12-06-2024 Lactate [Moles/Vol] 0.8 mmol/L Normal 0.5-2.[address] [facility] Comment on above: Result Comment: Britney puncture should occur prior to N-Acetyl Cysteine (NAC) administration due to the potential for falsely depressed results Performed By: #### 1 35391, 522070, 517758 #### [facility] [address] [place] [address] 19500 Mud Boss: Simba Obrien MD LIPon 12-06-2024 Lipase [Catalytic activity/Vol] 31 U/L Normal 12-53 [facility] Comment on above: Performed By: #### 1 38643, 251804 #### [facility] [address] [place] [address] Mud Boss: Simba Obrien MD MG LEVELon 12-06-2024 Magnesium [Mass/Vol] 2.5 mg/dL Normal 1.6-2.6 [facility] Comment on above: Performed By: #### 1 [id number] #### [facility] [address] [place] [address] Mud Boss: Simba Obrien MD PCTon 12-06-2024 Procalcitonin 0.62 ng/mL Normal [facility] Comment on above: Result Comment: INTE RP DATA Less than or = 0.5 ng/mL Systemic infection (sepsis) is not likely. Local bacterial infection is possible. If PCT is measured very early after a bacterial challenge (usually less than 6 hours), these values may still be low. In this case, PCT should be re-assessed 6-24 hrs later. Greater than 0.5 - less than 2.0 ng/mL Systemic infection (sepsis) is possible, but other conditions are known to elevate PCT as well. The patient should be closely monitored both clinically and by re-assessing PCT within 6-24 hrs. Greater than or = 2.0 - less than 10.0 ng/mL Critical Range Systemic infection (sepsis) is likely, unless other causes are known. High risk for progression to severe systemic infection (severe sepsis/septic shock). Greater than or = 10.0 ng/mL Critical Range Important systemic inflammatory response, almost exclusively due to severe bacterial sepsis or septic shock. High likelihood of severe sepsis or septic shock. Performed By: #### 1 74472, 511736, 370600 #### [facility] [address] [place] [address] Mud Boss: Simba Obrien MD PT INRon 12-06-2024 INR Coag (PPP) [Relative time] 1.1 {INR} Normal [facility] Comment on above: Result Comment: INR Reference Range: Normal reference range for INR on patients not on anticoagulant therapy: 0.9-1.1 General therapeutic range for patients on anticoagulant therapy: 2.0-3.5 Performed By: #### 1 [id number] #### [facility] [address] [place] [address] 30082 Mud Boss: Simab Obrien MD Protime Patient 12.1 seconds Normal 9.8-12.[address] [facility] Comment on above: Performed By: #### 1 [id number] #### [facility] [address] [place] [address] 87000 Mud Boss: Simba Obrien MD SED RATEon 12-06-2024 Sed Rate Westergren >145 High 0-[address] [facility] Comment on above: Performed By: #### 5 [id number] #### [facility] [address] [place], [place] [address] Mud Boss: Simba Obrien MD THY GPon 12-06-2024 Free T4 [Mass/Vol] 1.55 ng/dL Normal 0.89-1.76 [facility] Comment on above: Result Comment: - Th e anticonvulsant drug phenytoin may interfere with total and free T4 levels due to competition for TBG binding sites - Free T4 values may be decreased in patients with non-thyroidal conditions and in patients taking carbamazepine Performed By: #### 5 [id number] #### [facility] [address] [place], [place] [address] Mud Boss: Simba Obrien MD TSH Qn 1.02 m[IU]/L Normal 0.55-4.78 [facility] Comment on above: Result Comment: - Do not use samples that contain fluorescein. Fluorescein levels > 0.24 ?g/mL may decrease results in this assay - Patients undergoing retinal fluorescein angiography can retain amounts of fluorescein in the body for up to 48?72 hours post-treatment. Such samples can produce falsely depressed values when tested with this assay, and should not be tested Reference Intervals (if applicable): First trimester: 0.6-3.4 uIU/mL Second trimester: 0.37-3.6 uIU/mL Third trimester: 0.38-4.04 uIU/mL Reference: [email or web address] (03/2023) Performed By: #### 5 [id number] #### [facility] [address] [place] [address] 79889 Mud Boss: Simba Obrien MD TROPONIN HS 0HRon 12-06-2024 Troponin HS 0 Hr 6 pg/mL Normal 3-53 [facility] Comment on above: Result Comment: Spec imens from some individuals with pathologically high gamma globulin levels may demonstrate depressed troponin values Performed By: #### 1 [id number] #### [facility] [address] [place] [address] 22245 Mud Boss: Simba Obrien MD TROPONIN HS 2HRon 12-06-2024 Delta Troponin 2 Hr 0 pg/mL Normal 0-[address] [facility] Comment on above: Result Comment: The term acute myocardial infarction should be used when there is acute myocardial injury with clinical evidence of acute myocardial ischemia and the rise or fall of serial Troponin HS values (delta troponin) greater than or equal to 15 pg/mL with at least one Troponin HS value above the 99th percentile reference range Performed By: #### 1 35009, 309877, [id number] #### [facility] [address] [place], [place] [address] Mud Boss: Simba Obrien MD Troponin HS 2 Hr 6 pg/mL Normal 3-53 [facility] Comment on above: Result Comment: Spec imens from some individuals with pathologically high gamma globulin levels may demonstrate depressed troponin values Performed By: #### 1 63453, [id number], 667714 #### [facility] [address] [place] [address] 21383 Mud Boss: Simba Obrien MD UAon 12-06-2024 U MICRO Indicated Normal [facility] Comment on above: Performed By: #### 1 12354, 955728, [id number] #### [facility] [address] [place] [address] Mud Boss: Simba Obrien MD Appearance, U Clear Normal Clear [facility] Comment on above: Performed By: #### 1 93883, 104374, 124027 #### [facility] [address] [place] [address]95[address] Mud Boss: Simba Obrien MD Bacteria, U Few Normal [facility] Comment on above: Performed By: #### 1 69108, 655381, 268909 #### [facility] [address] [place] [address] Mud Boss: Simba Obrien MD Bilirubin, U Negative Normal Negative [facility] Comment on above: Result Comment: Bili clemons, U: Initial positive urine bilirubin results are not confirmed. Interfering substances may include elevated urobilinogen. Trace = 0.5-1.0 mg/dL Small = 2.0-4.0 mg/dL Moderate = 6.0-8.0 mg/dL Large = 10 mg/dl and greater Performed By: #### 1 88776, 871859, 669630 #### [facility] [address] [place] [address] Mud Boss: Simba Obrien MD Blood, U Negative Normal Negative [facility] Comment on above: Result Comment: Bloo d, U: Trace = 0.03-0.05 mg/dL Small = 0.06-0.1 mg/dL Moderate = 0.2-0.5 mg/dL Large = 1.0 mg/dL and greater Performed By: #### 1 00178, 186679, 024723 #### [facility] [address] [place] [address] 26041 Mud Boss: Simba Obrien MD Color, U Yellow Normal Yellow [facility] Comment on above: Performed By: #### 1 37914, 016349, 291798 #### [facility] [address] [place] [address] 00918 Mud Boss: Simba Obrien MD Glucose Qual, U Negative Normal Negative [facility] Comment on above: Performed By: #### 1 68938, 525179, 538215 #### [facility] [address] [place] [address] 615[address] Mud Boss: Simba Obrien MD Ketones, U Negative Normal Negative [facility] Comment on above: Performed By: #### 1 77534, 926974, 622484 #### [facility] [address] [place] [address] 55289 Mud Boss: Simba Obrien MD Leukocyte Esterase, U Negative Normal Negative [facility] Comment on above: Result Comment: Leuk ocyte Esterase, U: Trace = 25 Joel/uL Small = 75 Joel/uL Moderate = 250 Joel/uL Large = 500 Joel/uL and greater Performed By: #### 1 65791, 404557, 419241 #### [facility] [address] [place], [place] [address] Mud Boss: Simba Obrien MD Mucous, U Occasional Normal [facility] Comment on above: Performed By: #### 1 62147, 922926, 323383 #### [facility] [address] [place] [address] 85695 Mud Boss: Simba Obrien MD Nitrite, U Negative Normal Negative [facility] Comment on above: Performed By: #### 1 03988, 841541, 445786 #### [facility] [address] [place], [place] [address] Mud Boss: Simba Obrien MD pH, U 6.0 Normal 4.5-8.0 [facility] Comment on above: Performed By: #### 1 38582, 343762, 988877 #### [facility] [address] [place] [address] 63265 Mud Boss: Simba Obrien MD Protein, U 70 mg/dl Abnormal Negative [facility] Comment on above: Performed By: #### 1 85722, 573119, 775000 #### [facility] [address] [place] [address] Mud Boss: Simba Obrien MD RBC/HPF, U 3 #/HPF Normal 0-3 [facility] Comment on above: Performed By: #### 1 99563, 902645, 347597 #### [facility] [address] [place] [address] Mud Boss: Simba bOrien MD Specific [place], U 1.024 Normal 1.001-1. 03 5 [facility] Comment on above: Performed By: #### 1 82406, 192850, 676988 #### [facility] [address] [place] [address] 24191 Mud Boss: Simba Obrien MD Squamous Epithelial Cells, U <1 Normal [facility] Comment on above: Performed By: #### 1 93779, 626950, 758536 #### [facility] [address] [place] [address]990 Mud Boss: Simba Obrien MD Urobilinogen Qual, U 2 mg/dl Abnormal < 2 mg/dl [facility] Comment on above: Result Comment: Urob ilinogen, U: EU/dl and mg/dl are equivalent units. Performed By: #### 1 31012, 728572, 316128 #### [facility] [address] [place] [address] 26231 Mud Boss: Simba Obrien MD WBC/HPF, U 3 #/HPF Normal 0-5 [facility] Comment on above: Performed By: #### 1 93721, 238053, 113266 #### [facility] [address] [place] [address] Mud Boss: Simba Obrien MD CNOVon 11-26-2024 CNOV Normal [facility] CNPNon 11-26-2024 CNPN Normal [facility] HEMOGLOBIN A1C (POC)on 11-26 HbA1c (Bld) [Mass fraction] 5.4 % 4.3 - 5.6 % [facility] Comment on above: Location:[facility], [address] [place], [address] Point of care (POC) Hemoglobin A1c (HGBA1C) testing is intended to assess glucose control and provide a management tool for patients known to have diabetes and their healthcare providers. Target HGBA1C levels may depend on specific clinical circumstances. POC HGBA1C is not intended for use as a diagnostic or screening test; laboratory-based testing should be used for diagnostic purposes. The following information is supplemental and may not be applicable to specific diabetes management situations: The POC device certified court interpreter provides a normal range of 4.2% to 6.5% for the HGBA1C POC test. However, the [place] [employer] guidelines indicate that patients with HGBA1C in the range of 5.7% to 6.4% are at increased risk for development of diabetes and that intervention by lifestyle modification may be beneficial. A HGBA1C level greater than or equal to 6.5% is considered diagnostic of diabetes, pending confirmatory testing. Use of HGBA1C testing to evaluate glucose control may not be appropriate for patients with hemoglobin variants or other conditions (e.g. anemia) that alter red blood cell lifespan. [facility] CNPTOUTREACHon 11-06-2024 CNPTOUTREACH Normal [facility] BLOODon 10-31-2024 C BLOOD [facility] [address] [place] [phone] Name: TERE BARONE : 1950 Admitting Provider: Gender Male [facility] [phone] : Number: Kin GRETCHEN PATRICK; HB B; 1 n: Admit 10/26/2024 Date: Discharge 10/26/2024 Microbiology Date: PROCEDURE: C BLOOD [] SOURCE: Blood BODY SITE: COLLECTED DATE/TIME: 10/26/2024 12:03 EDT RECEIVED DATE/TIME: 10/26/2024 12:14 EDT START DATE/TIME: 10/26/2024 12:14 EDT FREE TEXT SOURCE: ORDERING PHYSICIAN: KEVAN VALVERDE MD FINAL REPORTS Final Report [] Verified Date/Time: 10/31/2024 19:00 EDT No growth after 5 days. ____ L=Low, H= High, *= Abnormal, C=Critical, f=Footnote, c=Corrected, i=Interp Data Name: TERE BARONE Print 10/31/2024 19:00 EDT Date/Time: Normal [facility] Comment on above: Performed By: #### 1 97011, 074543, 261256 #### [facility] [address] [place] [address] Mud Boss: Simba Obrien MD C BLOOD [facility] [address] [place] [phone] Name: TERE BARONE : 1950 Admitting Provider: Gender Male [employer] [phone] : Number: Locatio SW PATRICK; HB B; 1 n: Admit 10/26/2024 Date: Discharge 10/26/2024 Microbiology Date: PROCEDURE: C BLOOD [] SOURCE: Blood BODY SITE: COLLECTED DATE/TIME: 10/26/2024 11:48 EDT RECEIVED DATE/TIME: 10/26/2024 12:14 EDT START DATE/TIME: 10/26/2024 12:14 EDT FREE TEXT SOURCE: ORDERING PHYSICIAN: KEVAN VALVERDE MD FINAL REPORTS Final Report [] Verified Date/Time: 10/31/2024 19:00 EDT No growth after 5 days. ____ L=Low, H= High, *= Abnormal, C=Critical, f=Footnote, c=Corrected, i=Interp Data Name: TERE BARONE Print 10/31/2024 19:00 EDT Date/Time: Normal [facility] Comment on above: Performed By: #### 1 14704, 564771, 698851 #### [facility] [address] [place] [address] Mud Boss: Simba Obrien MD CNPNon 10-30-2024 CNPN Normal [facility] COMPMETAon 10-26-2024 Albumin [Mass/Vol] 3.4 g/dL Normal 3.4-5.0 [facility] Comment on above: Performed By: #### 1 43660, 726340, 680473 #### [facility] [address] [place] [address] Mud Boss: Simba Obrien MD Albumin/Globulin [Mass ratio] 0.9 {ratio} Normal [facility] Comment on above: Performed By: #### 1 30207, 371290, 403522 #### [facility] [address] [place] [address] Mud Boss: Simba Obrien MD Alk Phos 116 unit/L Normal 45-117 [facility] Comment on above: Performed By: #### 1 00418, 296790, 202676 #### [facility] [address] [place] [address] 704[address] Mud Boss: Simba Obrien MD Bilirubin [Mass/Vol] 0.70 mg/dL Normal 0.30-1.20 [facility] Comment on above: Result Comment: Use of this assay is not recommended for patients undergoing treatment with eltrombopag due to the potential for falsely elevated results. Performed By: #### 1 66365, 889098, 626727 #### [facility] [address] [place] [address] Mud Boss: Simba Obrien MD Calcium [Mass/Vol] 9.5 mg/dL Normal 8.7-10.4 [facility] Comment on above: Performed By: #### 1 35443, 037183, 003020 #### [facility] [address] [place] [address] Mud Boss: Simba Obrien MD Chloride [Moles/Vol] 109 mmol/L High 98-107 [facility] Comment on above: Performed By: #### 1 87080, 039745, 488656 #### [facility] [address] [place] [address] 56884 Mud Boss: Simba Obrien MD CO2 [Moles/Vol] 23.0 mmol/L Normal 20.0-31.0 [facility] Comment on above: Performed By: #### 1 10722, 089191, 947828 #### [facility] [address] [place] [address] Mud Boss: Simba Obrien MD Creatinine [Mass/Vol] 1.3 mg/dL High 0.6-1.1 [facility] Comment on above: Performed By: #### 1 94848, 332248, 250348 #### [facility] [address] [place] [address] 69926 Mud Boss: Simba Obrien MD GFR AA >60 Normal [facility] Comment on above: Result Comment: Afri can [place] GFR Calc Medical judgement is necessary to interpret GFR. The calculated GFR may not accurately reflect renal status in patients >70 years, women, acutely ill hospitalized patients and patients with acute renal failure or known renal disease. The MDRD GFR formula is valid only for adults greater than 18 years of age. Note: Creatinine clearance (not GFR) should be used for drug dosing. Calculated result performed using the MDRD GFR equation Performed By: #### 1 37217, 080051, 768021 #### [facility] [address] [place] [address] Mud Boss: Simba Obrien MD Globulin (S) [Mass/Vol] 3.7 g/dL Normal [facility] Comment on above: Performed By: #### 1 20238, 103284, 646558 #### [facility] [address] [place] [address] Mud Boss: Simba Obrien MD Glomerular Filtration Rate 54 mL/min/1.73m? Normal [facility] Comment on above: Result Comment: Non- GFR Calc Medical judgement is necessary to interpret GFR. The calculated GFR may not accurately reflect renal status in patients >70 years, women, acutely ill hospitalized patients and patients with acute renal failure or known renal disease. The MDRD GFR formula is valid only for adults greater than 18 years of age. Note: Creatinine clearance (not GFR) should be used for drug dosing. Calculated result performed using the MDRD GFR equation Performed By: #### 1 48383, 194561, 225158 #### [facility] [address] [place] [address] 95195 Mud Boss: Simba Obrien MD Glucose [Mass/Vol] 199 mg/dL High 74-106 [facility] Comment on above: Performed By: #### 1 86734, 698824, 020808 #### [facility] [id number] [place] [address] Mud Boss: Simba Obrien MD GOT 31 unit/L Normal 15-37 [facility] Comment on above: Performed By: #### 1 15388, 437867, 024998 #### [facility] [address] [place] [address] Mud Boss: Simba Obrien MD GPT 18 unit/L Normal 10-49 [facility] Comment on above: Performed By: #### 1 26507, 651436, 859446 #### [facility] [address] [place] [address]1038 Mud Boss: Simba Obrien MD Osmolality [Osmolality] 297 mosm/kg High 275-295 [facility] Comment on above: Performed By: #### 1 72988, 151052, 029562 #### [facility] [address] [place] [address] 87259 Mud Boss: Simba Obrien MD Potassium [Moles/Vol] 4.4 mmol/L Normal 3.5-5.1 [facility] Comment on above: Performed By: #### 1 11865, 704656, 572973 #### [facility] [address] [place] [address] 66758 Mud Boss: Simba Obrien MD Protein [Mass/Vol] 7.1 g/dL Normal 5.7-8.2 [facility] Comment on above: Result Comment: Tota l Protein results may be increased in patients receiving dextran as a blood volume dietitian Performed By: #### 1 94014, 895642, 056554 #### [facility] [address] [place] [address] 69587 Mud Boss: Simba Obrien MD Sodium [Moles/Vol] 143 mmol/L Normal 135-145 [facility] Comment on above: Performed By: #### 1 97349, 588089, 669483 #### [facility] [address] [place] [address]39 Mud Boss: Simba Obrien MD Urea nitrogen [Mass/Vol] 31 mg/dL High 9-23 [facility] Comment on above: Result Comment: - Ve nipuncture should occur prior to N-Acetyl Cysteine (NAC) or Metamizole (Sulpyrine) administration due to the potential for falsely depressed results. - Blood samples from some patients with monoclonal gammopathies may produce falsely elevated results Performed By: #### 1 67315, 581756, 404787 #### [facility] [address] [place] [address] 30362 Mud Boss: Simba Obrien MD Urea nitrogen/Creatinine [Mass ratio] 23.8 mg/mg Normal [facility] Comment on above: Performed By: #### 1 91610, 300789, 619310 #### [facility] [address] [place] [id number] Mud Boss: Simba Obrien MD COVID-19 Molecular SWEDon SARS-CoV-2 (COVID-19) RNA JOSE+probe Ql (Unsp spec) Negative Normal Negative [facility] Comment on above: Result Comment: This assay is designed to detect the RdRp target of SARS-CoV-2 using rapid molecular isothermal amplification technology. A Negative result does not preclude the possibility of COVID 19 infection since the adequacy of sample collection and/or low viral burden may result in the presence of viral nucleic acids below the analytical sensitivity of this test method. Test results should be used along with other clinical and laboratory data in making the diagnosis. This testing was performed in the [facility] laboratory located at [[place] [address]] Performed By: #### 1 35482, 080962, 867394 #### [facility] [address] [place] [address] Mud Boss: Simba Obrien MD ED Discharge Educationon ED Discharge Education Gastrointestinal Nausea and Vomiting: Care Instructions Overview When you are nauseated, you may feel weak and sweaty and notice a lot of saliva in your mouth. Nausea often leads to vomiting. Most of the time you do not need to worry about nausea and vomiting, but they can be signs of other illnesses. Two common causes of nausea and vomiting are a stomach infection and food poisoning. Nausea and vomiting from a viral stomach infection will usually start to improve within 24 hours. Nausea and vomiting from food poisoning may last from 12 to 48 hours. The doctor has checked you carefully, but problems can develop later. If you notice any problems or new symptoms, get medical treatment right away. Follow-up care is a leo part of your treatment and safety. Be sure to make and go to all appointments, and call your doctor if you are having problems. It's also a good idea to know your test results and keep a list of the medicines you take. How can you care for yourself at home? ? To prevent dehydration, drink plenty of fluids. Choose water and other clear liquids until you feel better. If you have kidney, heart, or liver disease and have to limit fluids, talk with your doctor before you increase the amount of fluids you drink. ? Rest in bed until you feel better. ? When you are able to eat, try clear soups, mild foods, and liquids until all symptoms are gone for 12 to 48 hours. Other good choices include dry toast, crackers, cooked cereal, and gelatin dessert, such as Jell-O. When should you call for help? Call 911 anytime you think you may need emergency care. For example, call if: ? You passed out (lost consciousness). Call your doctor now or seek immediate medical care if: ? You have symptoms of dehydration, such as: ? Dry eyes and a dry mouth. ? Passing only a little urine. ? Feeling thirstier than usual. ? You have new or worsening belly pain. ? You have a new or higher fever. ? You vomit blood or what looks like coffee grounds. Watch closely for changes in your health, and be sure to contact your doctor if: ? You have ongoing nausea and vomiting. ? Your vomiting is getting worse. ? Your vomiting lasts longer than 2 days. ? You are not getting better as expected. Where can you learn more? Go to https://www.[employer].net/ patientEd Enter H591 in the search box to learn more about Nausea and Vomiting: Care Instructions. Current as of: August 17, 2021 Content Version: 13.3 ? [employer]. Care instructions adapted under license by your healthcare professional. If you have questions about a medical condition or this instruction, always ask your healthcare professional. [employer] disclaims any warranty or liability for your use of this information. Normal [facility] ED Patient Summaryon 025 ED Patient Summary [facility] Emergency Department Discharge Instructions [address] [place] [address] (Patient Copy) Name: TERE BARONE : 1950 Allergies: No Known Medication Allergies Diagnosis: Moderate nausea Visit Date: 10/26/2024 10:06:10 [facility]#: [id number] Current Date Time: 10/26/2024 13:17:20 Address: [address] [place] [address] [place] [address] Phone: [phone] Primary Care Provider: Name: [facility] Care Providers: Primary Physician: KEVAN VALVERDE MD Thank you for choosing [facility] for your emergency care. You are very important to us. Our goal is to demonstrate our high quality medical care, and provide you with a very good patient experience. You may receive a survey about our service. Please take the time to complete the survey and return it so we can continue to enhance our service. Thank you again for allowing the [facility] to care for your medical needs. If you have questions about your care or follow up information please contact us at [phone]. Follow-Up Instructions TERE BARONE has been given these follow-up instructions: With: Address: When: [facility] [address] NOT ON STAFF [address] [place] [address] Business (1) Within 3 to 5 days Comments: Return to ED if worse or any concerns Patient Education Materials TERE BARONE has been given the following patient education materials: Nausea and Vomiting: Care Instructions Overview When you are nauseated, you may feel weak and sweaty and notice a lot of saliva in your mouth. Nausea often leads to vomiting. Most of the time you do not need to worry about nausea and vomiting, but they can be signs of other illnesses. Two common causes of nausea and vomiting are a stomach infection and food poisoning. Nausea and vomiting from a viral stomach infection will usually start to improve within 24 hours. Nausea and vomiting from food poisoning may last from 12 to 48 hours. The doctor has checked you carefully, but problems can develop later. If you notice any problems or new symptoms, get medical treatment right away. Follow-up care is a leo part of your treatment and safety. Be sure to make and go to all appointments, and call your doctor if you are having problems. It's also a good idea to know your test results and keep a list of the medicines you take. How can you care for yourself at home? ? To prevent dehydration, drink plenty of fluids. Choose water and other clear liquids until you feel better. If you have kidney, heart, or liver disease and have to limit fluids, talk with your doctor before you increase the amount of fluids you drink. ? Rest in bed until you feel better. ? When you are able to eat, try clear soups, mild foods, and liquids until all symptoms are gone for 12 to 48 hours. Other good choices include dry toast, crackers, cooked cereal, and gelatin dessert, such as Jell-O. When should you call for help? Call 911 anytime you think you may need emergency care. For example, call if: ? You passed out (lost consciousness). Call your doctor now or seek immediate medical care if: ? You have symptoms of dehydration, such as: ? Dry eyes and a dry mouth. ? Passing only a little urine. ? Feeling thirstier than usual. ? You have new or worsening belly pain. ? You have a new or higher fever. ? You vomit blood or what looks like coffee grounds. Watch closely for changes in your health, and be sure to contact your doctor if: ? You have ongoing nausea and vomiting. ? Your vomiting is getting worse. ? Your vomiting lasts longer than 2 days. ? You are not getting better as expected. Where can you learn more? Go to https://www.[employer].net/ patientEd Enter H591 in the search box to learn more about Nausea and Vomiting: Care Instructions. Current as of: August 17, 2021 Content Version: 13.3 ? [employer]. Care instructions adapted under license by your healthcare professional. If you have questions about a medical condition or this instruction, always ask your healthcare professional. [employer] disclaims any warranty or liability for your use of this information. BEFORE YOU LEAVE Set up your [facility] [employer] account! [employer] is a secure, online health management tool that connects you to portions of your hospital-based electronic medical record, allowing you to see test results, manage appointments, access discharge care instructions and much more. You can access [employer] from a computer, tablet or smartphone. Enrollment/registration is required. If you do not have a [employer] account, please provide us with an email address before you l (more content not included)... Normal [facility] ED Physician Reporton 2024 ED Physician Report TERE BARONE :1950 Registration Date:10/26/2024 Basic Information Patient seen on 10/26/2024. History of Present Illness This is a 74-year-old male with a history of nausea. States he does not feel well. Patient has no chest pain or abdominal pain no vomiting no diarrhea. Patient did state that he was diaphoretic and pale appearing this morning. Patient has no headache, shortness of breath, numbness or tingling in the arms or legs loss of bowel or bladder control loss of consciousness heat or cold intolerance rash or any other complaint or concern. Review of Systems Constitutional symptoms: [Negative except as documented in HPI.] Skin symptoms: [Negative except as documented in HPI.] Eye symptoms: [Negative except as documented in HPI.] ENMT symptoms: [Negative except as documented in HPI.] Respiratory symptoms: [Negative except as documented in HPI.] Cardiovascular symptoms: [Negative except as documented in HPI.] Gastrointestinal symptoms: [Negative except as documented in HPI.] Genitourinary symptoms: [Negative except as documented in HPI.] Musculoskeletal symptoms: [Negative except as documented in HPI.] Psychiatric symptoms: [Negative except as documented in HPI.] Neurologic symptoms: [Negative except as documented in HPI.] Additional review of systems information: [All other systems reviewed and otherwise negative, Systems negative except as stated in the H&P.] Physical Exam Vitals & Measurements Initial: T: 36.4 ?C (Oral) HR: 76 (Peripheral) BP: 131/73 RR: 18 SpO2: 99% O2 Therapy: Room air General: alert, no acute distress. Skin: warm, dry. Head: no trauma, normocephalic. Neck: trachea midline, no adenopathy, no tenderness. Eye: normal conjunctiva, sclera clear. Cardiovascular: regular rate and rhythm, normal peripheral perfusion. Respiratory: lungs CTA, respirations non-labored. Chest Wall: no deformity. Gastrointestinal: soft, non distended, no RUQ tenderness, no RUQ guarding. Extremities: no deformity, no trauma. Neurological: oriented x 4, LOC appropriate for age, CN II-XII intact, motor strength equal & normal bilaterally, sensation equal & normal bilaterally, speech normal. Psychiatric: cooperative, affect appropriate for age, normal judgement, normal psychiatric thoughts. Medical Decision Making Differential diagnosis: Electrolyte abnormality, viral illness, My interpretation of the EKG normal sinus rhythm 79 bpm TN interval 180 ms QRS 102 ms QT QTc 376 and 430 1 ms respectively. My interpretation of the blood work was unremarkable. I discussed all the findings with the patient and the patient's all were in agreement with outpatient management and treatment plan My interpretation of the chest x-ray was unremarkable. After fluids and nausea control the patient was feeling like his normal self. Reexamination/Reevaluation Systolic Blood Pressure: 131 mmHg High Diastolic Blood Pressure: 73 mmHg Temperature Oral: 36.4 degC Respiratory Rate: 18 br/min SpO2: 99 % Oxygen Therapy: Room air Peripheral Pulse Rate: 76 bpm Discharge/Plan *Discharge Disposition NO DISCHARGE DISPOSITION DOCUMENTED Patient Education Nausea and Vomiting Follow Up With When Contact Information SAMM [address] DR NOT ON STAFF Within 3 to 5 days [id number] [place] [id number]- 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 allow tablet to dissolve on tongue. Refills: 0. Unchanged aspirin (aspirin 81 mg oral delayed release tablet)1 Tabs Oral DAILY. atorvastatin (atorvastatin 80 mg oral tablet)1 Tabs Oral EVERY EVENING. cholecalciferol (Vitamin D3 25 mcg (1000 intl units) oral capsule)1 Capsules Oral DAILY. clopidogrel (Plavix 75 mg oral tablet)1 Tabs Oral DAILY for 21 Days. Refills: 0. glipiZIDE (glipiZIDE 2.5 mg oral tablet, extended release (more content not included)... Normal [facility] HEMOon 10-26-2024 Special Notes Albumin slide Normal [facility] Comment on above: Performed By: #### 1 69706, 317305, [id number] #### [facility] [address] [place] [address] Mud Boss: Simba Obrien MD Nucleated RBC 0 /100WBC Normal [facility] Comment on above: Performed By: #### 1 59537, 952939, 994933 #### [facility] [address] [place] [address] Mud Boss: Simba Obrien MD DIFF? Yes [facility] Comment on above: Performed By: #### 1 78241, [id number], [id number] #### [facility] [address] [place] [address] Mud Boss: Simba Orbien MD DxH Actions See Notes Abnormal [facility] Comment on above: Result Comment: Scan for RBC Morphology Scan Slide. Perform manual diff if needed. SNV Performed By: #### 1 59896, 354707, [id number] #### [facility] [address] [place] [address] Mud Boss: Simba Obrien MD Erythrocyte distribution width (RBC) [Ratio] 18.5 % High 11.5-14.5 [facility] Comment on above: Performed By: #### 1 42260, 891386, 930072 #### [facility] [address] [place] [address] Mud Boss: Simba Obrien MD Hematocrit (Bld) [Volume fraction] 24.5 % Low 41.0-52.0 [facility] Comment on above: Performed By: #### 1 70339, 679260, 540509 #### [facility] [address] [place] [address] Mud Boss: Simba Obrien MD Hemoglobin (Bld) [Mass/Vol] 8.0 g/dL Low 13.5-17.5 [facility] Comment on above: Performed By: #### 1 25533, 734278, 443364 #### [facility] [address] [place] [address] Mud Boss: Simba Obrien MD Instr WBC 5.8 Normal [facility] Comment on above: Performed By: #### 1 92124, 545313, 028586 #### [facility] [address] [place] [address] Mud Boss: Simba Obrien MD MCH (RBC) [Entitic mass] 27.8 pg Normal 27.0-34.0 [facility] Comment on above: Performed By: #### 1 22897, 762755, 380093 #### [facility] [address] [place] [address] Mud Boss: Simba Obrien MD MCHC (RBC) [Mass/Vol] 32.5 g/dL Normal 32.0-37.0 [facility] Comment on above: Performed By: #### 1 , 611148, [id number] #### [facility] [address] [place] [address] Mud Boss: Simba Obrien MD MCV (RBC) [Entitic vol] 85.7 fL Normal 80.0-100.0 [facility] Comment on above: Performed By: #### 1 , 161508, 438845 #### [facility] [address] [place] [address] Mud Boss: Simba Obrien MD MDW 23.64 High 13.98-20.0 0 [facility] Comment on above: Result Comment: MDW Interpretation: - For adults age 18-89 in ED, MDW >20.0 may be associated with a higher risk of Sepsis during the first 12 hours of hospital admission. - The predictive value of MDW for identifying Sepsis in patients with hematological abnormalities has not been established. - Interpret with caution when immature granulocytes, variant lymphs, or blast cells are noted on the differential. - Confirm patient age is within intended use population (18-89 years) for MDW. - For ED adults suspected of Sepsis, MDW less than or equal to 20.0 does not rule out Sepsis or the risk of Sepsis. Performed By: #### 1 , 586008, 777002 #### [facility] [address] [place] [address] Mud Boss: Simba Obrien MD Platelet 215 x10 Normal 150-450 [facility] Comment on above: Performed By: #### 1 , 563916, 033988 #### [facility] [address] [place] [address] Mud Boss: Simba Obrien MD Platelet mean volume (Bld) [Entitic vol] 6.5 fL Low 7.4-10.4 [facility] Comment on above: Performed By: #### 1 30376, 780798, 298731 #### [facility] [address] [place] [address] Mud Boss: Simba Obrien MD RBC 2.86 x10 Low 4.70-6.10 [facility] Comment on above: Result Comment: Note : RBC morphology is normal unless otherwise stated. Evaluation performed only if differential is requested. Performed By: #### 1 85318, 420541, 738728 #### [facility] [address] [place] [address] Mud Boss: Simba Obrien MD WBC 5.8 x10 Normal 4.5-11.0 [facility] Comment on above: Performed By: #### 1 12810, 525308, 626783 #### [facility] [address] [place] [address] Mud Boss: Simba Obrien MD LACTATEon 10-26-2024 Lactate [Moles/Vol] 1.6 mmol/L Normal 0.5-2.[address] [facility] Comment on above: Result Comment: Britney puncture should occur prior to N-Acetyl Cysteine (NAC) administration due to the potential for falsely depressed results Performed By: #### 1 49715, 885165, 775123 #### [facility] [address] [place] [address] Mud Boss: Simba Obrien MD LIPon 10-26-2024 Lipase [Catalytic activity/Vol] 33 U/L Normal 12-53 [facility] Comment on above: Performed By: #### 1 99586, 182166, 152517 #### [facility] [address] [place] [address] Mud Boss: Simba Obrien MD MAN DIFFon 10-26-[address] 0.00 x1000 Normal 0.00-0.70 [facility] Comment on above: Performed By: #### 1 76544, 419248, 283777 #### [facility] [address] [place] [address] Mud Boss: Simba Obrien MD Absolute Baso Ct 0.06 x1000 Normal 0.00-0.20 [facility] Comment on above: Performed By: #### 1 40683, 102710, 618644 #### [facility] [address] [place] [address] Mud Boss: Simba Obrien MD Absolute Lymph Ct 2.09 x1000 Normal 1.20-4.[address] [facility] Comment on above: Performed By: #### 1 95153, 059944, 364169 #### [facility] [address] [place] [address] Mud Boss: Simba Obrien MD Absolute Bossier Ct 0.12 x1000 Normal 0.10-1.00 [facility] Comment on above: Performed By: #### 1 15864, 202828, 340360 #### [facility] [address] [place] [address] Mud Boss: Simba Obrien MD Absolute Neutrophil Ct 3.54 x1000 Normal 1.40-8.80 [facility] Comment on above: Performed By: #### 1 78530, 044843, 699088 #### [facility] [address] [place] [address] Mud Boss: Simba Obrien MD Absolute Seg Ct 3.54 x1000 Normal 1.40-8.80 [facility] Comment on above: Performed By: #### 1 21236, 611802, 527849 #### [facility] [address] [place] [address] Mud Boss: Simba Obrien MD Anisocytosis Ql (Bld) 2+ Normal [facility] Comment on above: Performed By: #### 1 83649, 093879, 579581 #### [facility] [address] [place] [address] Mud Boss: Simba Obrien MD Atypical Lymphs 38 % High 0-5 [facility] Comment on above: Performed By: #### 1 15714, 999402, 762080 #### [facility] [address] [place] [address] Mud Boss: Simba Obrien MD Band form neutrophils/100 WBC (Bld) 0 % Normal [facility] Comment on above: Performed By: #### 1 69287, 586942, 519793 #### [facility] [address] [place] [address] Mud Boss: Simba Obrien MD Basophils/100 WBC (Bld) 1 % Normal [facility] Comment on above: Performed By: #### 1 74589, 981034, 627570 #### [facility] [address] [place] [address] Mud Boss: Simba Obrien MD Lymphocytes/100 WBC (Bld) 36 % Normal [facility] Comment on above: Performed By: #### 1 25021, 835197, 611790 #### [facility] [address] [place] [address] Mud Boss: Simba Obrien MD Monocytes/100 WBC (Bld) 2 % Normal [facility] Comment on above: Performed By: #### 1 93592, 828304, 571112 #### [facility] [address] [place] [address] Mud Boss: Simba Obrien MD Ovalocytes 1+ Normal [facility] Comment on above: Performed By: #### 1 87714, 207695, 948392 #### [facility] [address] [place] [address] 87[address] Mud Boss: Simba Obrien MD Polychromasia Present Normal [facility] Comment on above: Performed By: #### 1 80005, 319401, 022073 #### [facility] [address] [place] [address] 417[address] Mud Boss: Simba Obrien MD Segmented neutrophils/100 WBC (Bld) 61 % Normal [facility] Comment on above: Performed By: #### 1 96259, 230696, 551368 #### [facility] [address] [place] [address] Mud Boss: Simba Obrien MD POC Glucoseon 10-26-2024 Glucose [Mass/Vol] 220 mg/dL High 72-100 [facility] Comment on above: Performed By: #### 1 [id number] #### [facility] [address] [place] [address] Mud Boss: Simba Obrien MD TROPONIN HS 0HRon 10-26-2024 Troponin HS 0 Hr 4 pg/mL Normal 3-53 [facility] Comment on above: Result Comment: Spec imens from some individuals with pathologically high gamma globulin levels may demonstrate depressed troponin values Performed By: #### 1 48910, 946222, 419213 #### [facility] [address] [place] [address] Mud Boss: Simba Obrien MD TROPONIN HS 2HRon 10-26-2024 Delta Troponin 2 Hr 0 pg/mL Normal 0-[address] [facility] Comment on above: Result Comment: The term acute myocardial infarction should be used when there is acute myocardial injury with clinical evidence of acute myocardial ischemia and the rise or fall of serial Troponin HS values (delta troponin) greater than or equal to 15 pg/mL with at least one Troponin HS value above the 99th percentile reference range Performed By: #### 1 11627, 295051, 004616 #### [facility] [address] [place] [address] Mud Boss: Simba Obrien MD Troponin HS 2 Hr 4 pg/mL Normal 3-53 [facility] Comment on above: Result Comment: Spec imens from some individuals with pathologically high gamma globulin levels may demonstrate depressed troponin values Performed By: #### 1 11065, 727218, 101819 #### [facility] [address] [place] [address] Mud Boss: Simba Obrien MD XR CHEST PORTABLEon 10-27-19 XR CHEST PORTABLE EXAM DESCRIPTION: XR CHEST PORTABLE CLINICAL HISTORY: 74 years Male, FEVER COMPARISON: Chest x-ray 12/19/2022. CT angiogram of the neck from 12/19/2022. FINDINGS: Unchanged left cardiomegaly. CTA neck included portion of the left ventricle demonstrated wall thickening. There is mild dilatation of the ascending aorta. Previous CTA demonstrated 38 mm ascending aorta. No acute lung, pleural or bone abnormalities. IMPRESSION: No acute findings in chest. Unchanged ectatic ascending aorta and apparent thickening of the left ventricle wall. Electronically signed by: Mahendra Alegria MD 10/26/2024 12:14 PM EDT RP Technologist: CINDY FAITH Dictated By: MAHENDRA ALEGRIA MD Signed By: MAHENDRA ALEGRIA MD Signed Out: 10/26/24 12:14:38 Normal [facility] HISTORY PHYSICALon HISTORY PHYSICAL Normal [facility] CNOVon 09-11-2024 CNOV Normal [facility] CNOVon 09-10-2024 CNOV Normal [facility] CNPNon 09-01-2024 CNPN Normal [facility] CNPNon 08-29-2024 CNPN Normal [facility] CNPNon 08-19-2024 CNPN Normal [facility] CNOVon 08-05-2024 CNOV Normal [facility] CNPNon 08-05-2024 CNPN Normal [facility] CNOVon 07-08-2024 CNOV Normal [facility] CNPNon 06-02-2024 CNPN Normal [facility] CNPNon 05-30-2024 CNPN Normal [facility] ANES POSTPROC EVALon 024 ANES POSTPROC EVAL Normal [facility] ANES PRE-OPon 05-29-2024 ANES PRE-OP Normal [facility] Colonoscopy Study observatio non 05-29-2024 [facility] Gastrointestinal Endoscopy Patient Name: Tere Barone Procedure Date: 05/29/2024 11:09 AM Date of : 1950 Admit Type: Outpatient Age: 73 Gender: Male Note Status: Finalized Procedure: Colonoscopy Indications: High risk colon cancer surveillance: Personal history of adenomatous colonic polyps Providers: Yusra Beltran MD Patient Profile: This is a 73 year old male. Refer to note in patient chart for documentation of history and physical. Last Colonoscopy: April 2024. Referring Physician: Lise Corado MD (Referring MD) Medicines: Monitored Anesthesia Care Complications: No immediate complications. Requesting Provider: Procedure: Pre-Anesthesia Assessment: - Prior to the procedure, a History and Physical was performed, and patient medications and allergies were reviewed. The patient is competent. The risks and benefits of the procedure and the sedation options and risks were discussed with the patient. All questions were answered and informed consent was obtained. Patient identification and proposed procedure were verified by the physician and the nurse in the pre-procedure area in the procedure room. Mental Status Examination: alert and oriented. Airway Examination: normal oropharyngeal airway and neck mobility. Respiratory Examination: clear to auscultation. CV Examination: normal. Prophylactic Antibiotics: The patient does not require prophylactic antibiotics. Prior Anticoagulants: The patient has taken no anticoagulant or antiplatelet agents. ASA Grade Assessment: II - A patient with mild systemic disease. After reviewing the risks and benefits, the patient was deemed in satisfactory condition to undergo the procedure. The anesthesia plan was to use monitored anesthesia care (MAC). Immediately prior to administration of medications, the patient was re-assessed for adequacy to receive sedatives. The heart rate, respiratory rate, oxygen saturations, blood pressure, adequacy of pulmonary ventilation, and response to care were monitored throughout the procedure. The physical status of the patient was re-assessed after the procedure. After I obtained informed consent, the scope was passed under direct vision. Throughout the procedure, the patient's blood pressure, pulse, and oxygen saturations were monitored continuously. The Colonoscope was introduced through the anus and advanced to the cecum, identified by appendiceal orifice and ileocecal valve. The colonoscopy was performed without difficulty. The patient tolerated the procedure well. The quality of the bowel preparation was adequate. The ileocecal valve, appendiceal orifice, and rectum were photographed. Moderate Sedation: MAC anesthesia was administered by the anesthesia team. Findings: The perianal and digital rectal examinations were normal. A 7 mm polyp was found in the ascending colon. The polyp was sessile. The polyp was removed with a cold snare. Resection and retrieval were complete. Verification of patient identification for the specimen was done by the nurse and weatherization technician using the patient's name, date and medical record number. The pathology specimen was placed into Bottle Number 2. Estimated blood loss was minimal. Two sessile polyps were found in the hepatic flexure. The polyps were 5 to 6 mm in size. These polyps were removed with a cold snare. Resection and retrieval were complete. The pathology specimen was placed into Bottle Number 1. Estimated blood loss was minimal. A few medium-mouthed diverticula were found in the sigmoid colon. A 13 mm polyp was found in the rectum. The polyp was semi-pedunculated. The polyp was removed with a hot snare. Resection and retrieval were complete. The pathology specimen was placed into Bottle Number 3. Estimated blood loss wa (more content not included)... [facility] Radiology Study observation (narrative) [facility] GLUCOSE, BLOOD (POC)on 05-29 Glucose [Mass/Vol] 123 mg/dL Abnormal 74 - 99 mg/dL [facility] Comment on above: Location:[facility], [address] [place] [address], [facility] The Accu-Chek Inform II glucose meter has not been approved for testing on patients receiving intensive medical intervention or therapy and results from this point of care glucose test should not be used for patient management decisions in these cases. Inaccurate results may also occur from other interfering factors, such as N-acetylcysteine (blood concentrations of greater than 5mg/dL), galactose, extremes of hematocrit (<10 or >65), or high doses of ascorbic acid (vitamin C) greater than 3mg/dL. Consider alternate testing mechanisms (e.g. core lab, blood gas instrument) in the above situations. Interpretation and review of laboratory results Abnormal [facility] HISTORY PHYSICALon 4 HISTORY PHYSICAL Normal [facility] SURGICAL PATHOLOGYon 024 CASE REPORT Normal [facility] Comment on above: Order Comment: Speci men Type: TISSUE SPECIMENOrdering Facility: [facility] Address: [address] [place] [address] Result Comment: Surg [facility] Pathology Report Case: [id number] Provider: Yusra Beltran DO Collected: 05/29/2024 11:21 AMOrdering Location: Ambulatory Surgery Received: 05/29/2024 01:22 PMPathologist: Jovanni Jones MD, PhDSpecimens: A) - Colon, Hepatic Flexure, Polyp B) - Colon, Ascending Polyp C) - Rectum, Polyp Performed By: #### S ####[facility] [id number] [address] FINAL DIAGNOSIS Normal [facility] Comment on above: Order Comment: Speci men Type: TISSUE SPECIMENOrdering Facility: [facility] Address: [address] [place] [address] Result Comment: A. H epatic flexure polyp, biopsy:-Tubular adenoma.B. Ascending colon polyp, biopsy:-Multiple fragments of tubular adenoma.C. Rectal polyp, biopsy:-Tubulovillous adenoma. Performed By: #### S ####[facility] [id number] [address] FINAL PERFORMING LAB Normal [facility] Comment on above: Order Comment: Speci men Type: TISSUE SPECIMENOrdering Facility: [facility] Address: [address] [place] [address] Result Comment: Diag nostic interpretation performed at [facility], [address] [place] [address] CLIA# [id number] Director: Russ Hollis M.D. Performed By: #### S ####[facility]IA [id number] [address] STATES OF [facility] GROSS DESCRIPTION Normal [facility] Comment on above: Order Comment: Speci men Type: TISSUE SPECIMENOrdering Facility: [facility] Address: [address] [place] [address] Result Comment: A. C olon, Hepatic Flexure, PolypReceived in formalin is a segment of osorio, polypoid tissue measuring 0.6 x 0.3 x 0.3 cm. No stalk is present. The line resection is present. Specimen is bisected. Totally submitted in one cassette.B. Colon, Ascending PolypReceived in formalin are multiple pieces of osorio-white, soft tissue aggregating to 1.6 x 0.7 x 0.3 cm. Totally submitted in two cassettes.C. Rectum, PolypReceived in formalin is a segment of osorio-red, polypoid tissue measuring 1.5 x 1.0 x 0.7 cm. No stalk is present. The line of resection is present. The specimen is bisected. Totally submitted one cassette.Gross examination performed at [facility], [address] [place] [address] May 29, 2024 5:32 PM Performed By: #### S ####[facility] LABCLIA [id number] [facility] [id number] [facility] [place] CNPTOUTREACHon 05-12-2024 CNPTOUTREACH Normal [facility] CNOVon 05-07-2024 CNOV Normal [facility] ANES POSTPROC EVALon 024 ANES POSTPROC EVAL Normal [facility] ANES PRE-OPon 05-02-2024 ANES PRE-OP Normal [facility] Flexible sigmoidoscopy study on 05-02-2024 [facility] erology Gastrointestinal Endoscopy Patient Name: Tere Barone Procedure Date: 05/02/2024 10:45 AM Date of : 1950 Admit Type: Outpatient Age: 73 Room: [facility] [place] Gender: Male Note Status: Finalized Attending MD: Lesly Bender MD, [id number] Procedure: Colonoscopy Indications: High risk colon cancer surveillance: Personal history of adenomatous colonic polyps Providers: Lesly Bender MD Patient Profile: This is a 73 year old male. Refer to note in patient chart for documentation of history and physical. Last Colonoscopy: 6 months ago. Referring Physician: Lise Corado MD (Referring MD) Medicines: Monitored Anesthesia Care Complications: No immediate complications. Requesting Provider: Procedure: Pre-Anesthesia Assessment: - Prior to the procedure, a History and Physical was performed, and patient medications and allergies were reviewed. The patient's tolerance of previous anesthesia was also reviewed. The risks and benefits of the procedure and the sedation options and risks were discussed with the patient. All questions were answered, and informed consent was obtained. Prior Anticoagulants: The patient has taken no anticoagulant or antiplatelet agents. ASA Grade Assessment: III - A patient with severe systemic disease. After reviewing the risks and benefits, the patient was deemed in satisfactory condition to undergo the procedure. After I obtained informed consent, the scope was passed under direct vision. Throughout the procedure, the patient's blood pressure, pulse, and oxygen saturations were monitored continuously. The Colonoscope was introduced through the anus and advanced to the rectum. I was present and participated during the entire procedure, including non-leo portions, and during the administration and monitoring of Moderate Sedation. The colonoscopy was performed without difficulty. The patient tolerated the procedure well. The quality of the bowel preparation was unsatisfactory. The rectum was photographed. The entire colon was not examined. Moderate Sedation: MAC anesthesia was administered by the anesthesia team. Findings: A large (1 cm or greater) polyp was found in the rectum. The polyp was semi-pedunculated. Polypectomy was not attempted due to aborting the procedure before completion and inadequate bowel preparation with solid stool. Extensive amounts of semi-solid stool was found in the rectum and in the recto-sigmoid colon, interfering with visualization. Impression: - Preparation of the colon was unsatisfactory. - One large (1 cm or greater) polyp in the rectum. Resection not attempted. - Stool in the rectum and in the recto-sigmoid colon. - No specimens collected. Recommendation: - Discharge patient to home (ambulatory). - Patient has a contact number available for emergencies. The signs and symptoms of potential delayed complications were discussed with the patient. Return to normal activities tomorrow. Written discharge instructions were provided to the patient. - Advance diet as tolerated PRN. - Continue present medications. - Repeat colonoscopy at next available appointment (within 2 months) because the bowel preparation was poor with 2 day golytely prep with MAC and hold oral semaglutide 2 days prior to procedure. - Return to GI clinic PRN. Procedure Code(s): --- Professional --- 40715, 53, Colonoscopy, flexible; diagnostic, including collection of specimen(s) by brushing or washing, when performed (separate procedure) Diagnosis Code(s): --- Professional --- Z12.11, Encounter for (more content not included)... [facility] Radiology Study observation (narrative) [facility]24 NURSING PROG Normal [facility] NURSING PROG Normal [facility] CNPNon 04-29-2024 CNPN Normal [facility] ALBUMIN/CREATININE RATIO, UR INEon 04-25-2024 Albumin DL <= 20 mg/L (U) [Mass/Vol] 46.0 mg/L Normal [facility] Comment on above: Order Comment: Speci men Type: URINE SPECIMENOrdering Facility: [facility] Address: [address] [place] [address] Performed By: #### U ACR ####[facility] LABCLIA [id number] [place] [address] [place] Albumin/Creatinine (U) [Mass ratio] 29 mg/g Normal <30 [facility] Comment on above: Order Comment: Speci men Type: URINE SPECIMENOrdering Facility: [facility] Address: [address] [place] [address] Result Comment: Adul t Male and Female Nephrotic Criteria:<30 mg/g is considered normal to mildly [id number] mg/g is considered moderately increased>300 mg/g is considered severely increasedKDIGO. (2013). KDIGO 2012 Clinical Practice Guideline for the Evaluation and Management of Chronic Kidney Disease. Official Journal of the International Society of Nephrology, 3(1), 1-150. Performed By: #### U ACR ####[facility] LABCLIA [id number] [place] [address] [place] Creatinine (U) [Mass/Vol] 160.5 mg/dL Normal 20.0-300.0 [facility] Comment on above: Order Comment: Speci men Type: URINE SPECIMENOrdering Facility: [facility] Address: [address] [place] [address] Performed By: #### U ACR ####[facility] LABCLIA [id number] [facility] [place] [address] [place] CBC panel Auto (Bld)on 04-25 Erythrocyte distribution width (RBC) [Ratio] 13.0 % Normal 11.5-15.0 [facility] Comment on above: Order Comment: Speci men Type: BLOOD SPECIMENOrdering Facility: [facility] Address: [address] [place] [address] Performed By: #### 5 8410-2 ####[facility] LABORATORYIA [id number] [address] [place] Hematocrit (Bld) [Volume fraction] 38.1 % Low 39.0-51.0 [facility] Comment on above: Order Comment: Speci men Type: BLOOD SPECIMENOrdering Facility: [facility] Address: [address] [place] [address] Performed By: #### 5 8410-2 ####[facility] LABORATORYIA [id number] [address] [place] Hemoglobin (Bld) [Mass/Vol] 12.3 g/dL Low 13.0-17.0 [facility] Comment on above: Order Comment: Speci men Type: BLOOD SPECIMENOrdering Facility: [facility] Address: [address] [place] [address] Performed By: #### 5 8410-2 ####[facility] LABORATORYIA [id number] [address] [place] MCH (RBC) [Entitic mass] 29.9 pg Normal 26.0-34.0 [facility] Comment on above: Order Comment: Speci men Type: BLOOD SPECIMENOrdering Facility: [facility] Address: [address] [place] [address] Performed By: #### 5 8410-2 ####[facility] LABORATORYIA [id number] [place] [address] [place] MCHC (RBC) [Mass/Vol] 32.3 g/dL Normal 30.5-36.0 [facility] Comment on above: Order Comment: Speci men Type: BLOOD SPECIMENOrdering Facility: [facility] Address: [address] [place] [address] Performed By: #### 5 8410-2 ####[facility] LABORATORYCLIA [id number] [address] [place] MCV (RBC) [Entitic vol] 92.7 fL Normal 80.0-100.0 [facility] Comment on above: Order Comment: Speci men Type: BLOOD SPECIMENOrdering Facility: [facility] Address: [address] [place] [address] Performed By: #### 5 8410-2 ####[facility] LABORATORYIA [id number] [address] [place] Nucleated RBC (Bld) [#/Vol] 10*3/uL Normal <0.01 [facility] Comment on above: Order Comment: Speci men Type: BLOOD SPECIMENOrdering Facility: [facility] Address: [address] [place] [address] Performed By: #### 5 8410-2 ####[facility] LABORATORYIA [id number] [address] [place] Platelet mean volume (Bld) [Entitic vol] 9.9 fL Normal 9.0-12.7 [facility] Comment on above: Order Comment: Speci men Type: BLOOD SPECIMENOrdering Facility: [facility] Address: [address] [place] [address] Performed By: #### 5 8410-2 ####[facility] LABORATORYIA [id number] [place] [address] [place] Platelets (Bld) [#/Vol] 204 10*3/uL Normal 150-400 [facility] Comment on above: Order Comment: Speci men Type: BLOOD SPECIMENOrdering Facility: [facility] Address: [address] [place], [place] [address] Performed By: #### 5 8410-2 ####[facility] LABORATORYCLIA [id number] [place] [address] [facility] RBC (Bld) [#/Vol] 4.11 10*6/uL Low 4.20-6.00 [facility] Comment on above: Order Comment: Speci men Type: BLOOD SPECIMENOrdering Facility: [facility] Address: [address] [place] [address] Performed By: #### 5 8410-2 ####[facility] LABORATORYCLIA [id number] [address] WBC (Bld) [#/Vol] 8.61 10*3/uL Normal 3.70-11.00 [facility] Comment on above: Order Comment: Speci men Type: BLOOD SPECIMENOrdering Facility: [facility] Address: [address] [place] [address] Performed By: #### 5 8410-2 ####[facility] BAYIA [id number] [place] [address] [place] [facility] Comprehensive metabolic 2000 panelon 04-25-2024 Albumin [Mass/Vol] 4.0 g/dL Normal 3.9-4.9 [facility] Comment on above: Order Comment: Speci men Type: BLOOD SPECIMENOrdering Facility: [facility] Address: [address] [place] [address] Performed By: #### 2 4323-8 ####[facility] LABORATORYIA [id number] [address] [place] ALP [Catalytic activity/Vol] 92 U/L Normal 38-113 [facility] Comment on above: Order Comment: Speci men Type: BLOOD SPECIMENOrdering Facility: [facility] Address: [address] [place] [address] Performed By: #### 2 4323-8 ####[facility] LABORATORYIA [id number] [place] [address] [place] ALT [Catalytic activity/Vol] 23 U/L Normal 10-54 [facility] Comment on above: Order Comment: Speci men Type: BLOOD SPECIMENOrdering Facility: [facility] Address: [address] [place] [address] Performed By: #### 2 4323-8 ####[facility] LABORATORYCLIA [id number] [place] [address] [place] Anion gap [Moles/Vol] 13 mmol/L Normal 8-15 [facility] Comment on above: Order Comment: Speci men Type: BLOOD SPECIMENOrdering Facility: [facility] Address: [address] [place] [address] Performed By: #### 2 4323-8 ####[facility] LABORATORYCLIA [id number] [place] [address] [place] AST [Catalytic activity/Vol] 25 U/L Normal 14-40 [facility] Comment on above: Order Comment: Speci men Type: BLOOD SPECIMENOrdering Facility: [facility] Address: [address] [place] [address] Performed By: #### 2 4323-8 ####[facility] LABORATORYCLIA [id number] [place] [address] [place] Bilirubin [Mass/Vol] 0.2 mg/dL Normal 0.2-1.3 [facility] Comment on above: Order Comment: Speci men Type: BLOOD SPECIMENOrdering Facility: [facility] Address: [address] [place] [address] Performed By: #### 2 4323-8 ####[facility] LABORATORYCLIA [id number] [place] [address] [place] Calcium [Mass/Vol] 9.1 mg/dL Normal 8.5-10.2 [facility] Comment on above: Order Comment: Speci men Type: BLOOD SPECIMENOrdering Facility: [facility] Address: [address] [place] [address] Performed By: #### 2 4323-8 ####[facility] LABORATORYCLIA [id number] [place] [address] [place] Chloride [Moles/Vol] 110 mmol/L High 98-107 [facility] Comment on above: Order Comment: Speci men Type: BLOOD SPECIMENOrdering Facility: [facility] Address: [address] [place] [address] Performed By: #### 2 4323-8 ####[facility] LABORATORYCLIA [id number] [place] [address] [place] CO2 [Moles/Vol] 22 mmol/L Normal 22-30 [facility] Comment on above: Order Comment: Speci men Type: BLOOD SPECIMENOrdering Facility: [facility] Address: [address] [place] [address] Performed By: #### 2 4323-8 ####[facility] LABORATORYIA [id number] [address] OF [facility] Creatinine [Mass/Vol] 0.75 mg/dL Normal 0.73-1.22 [facility] Comment on above: Order Comment: Speci men Type: BLOOD SPECIMENOrdering Facility: [facility] Address: [address] [place] [address] Performed By: #### 2 4323-8 ####[facility] LABORATORYIA [id number] [address] Creatinine and Glomerular filtration rate.predicted panel (S/P/Bld) 95 mL/min/1.73m??? Normal >=60 [facility] Comment on above: Order Comment: Speci men Type: BLOOD SPECIMENOrdering Facility: [facility] Address: [address] [place] [address] Result Comment: Nancy mated Glomerular Filtration Rate (eGFR) is calculated using the 2020 CKD-EPI creatinine equation. This equation utilizes serum creatinine, sex, and age as parameters. The creatinine assay has traceable calibration to isotope dilution-mass spectrometry. Refer to KDIGO guidelines for clinical interpretation. In patients with unstable renal function, e.g. those with acute kidney injury, the eGFR may not accurately reflect actual GFR. Performed By: #### 2 4323-8 ####[facility] LABORATORYCLIA [id number] [place] [address] [place] Glucose [Mass/Vol] 123 mg/dL High 74-99 [facility] Comment on above: Order Comment: Demarco harris Type: BLOOD SPECIMENOrdering Facility: [facility] Address: [address] [place] [address] Result Comment: The [place] Diabetes Association (ADA) provides guidance for cutoff values for fasting glucose and random glucose. The ADA defines fasting as no caloric intake for at least 8 hours. Fasting plasma glucose results between 100 to 125 mg/dL indicate increased risk for diabetes (prediabetes).Fasting plasma glucose results greater than or equal to 126 mg/dL meet the criteria for diagnosis of diabetes. In the absence of unequivocal hyperglycemia, results should be confirmed by repeat testing. In a patient with classic symptoms of hyperglycemia or hyperglycemic crisis, random plasma glucose results greater than or equal to 200 mg/dL meet the criteria for diagnosis of diabetes.Reference: Standards of Medical Care in Diabetes 2016, [place] Diabetes Association. Diabetes Care. 2016.39(Suppl 1). Performed By: #### 2 4323-8 ####[facility] LABORATORYCLIA [id number] [place] [address] [place] Potassium [Moles/Vol] 4.1 mmol/L Normal 3.7-5.1 [facility] Comment on above: Order Comment: Demarco harris Type: BLOOD SPECIMENOrdering Facility: [facility] Address: [address] [place] [address] Performed By: #### 2 4323-8 ####[facility] LABORATORYCLIA [id number] [place] [address] [place] Protein [Mass/Vol] 6.8 g/dL Normal 6.3-8.0 [facility] Comment on above: Order Comment: Demarco harris Type: BLOOD SPECIMENOrdering Facility: [facility] Address: [address] [place] [address] Performed By: #### 2 4323-8 ####[facility] LABORATORYCLIA [id number] [place] [address] [place] Sodium [Moles/Vol] 145 mmol/L High 136-144 [facility] Comment on above: Order Comment: Speci men Type: BLOOD SPECIMENOrdering Facility: [facility] Address: [address] [place] [address] Performed By: #### 2 4323-8 ####[facility] LABORATORYCLIA [id number] [place] [address] [place] Urea nitrogen [Mass/Vol] 19 mg/dL Normal 9-24 [facility] Comment on above: Order Comment: Pemai men Type: BLOOD SPECIMENOrdering Facility: [facility] Address: [address] [place] [address] Performed By: #### 2 4323-8 ####[facility] LABORATORYCLIA [id number] [place] [address] [place] HbA1c (Bld)on 04-25-2024 Average glucose Estimated from glycated hemoglobin (Bld) [Mass/Vol] 117 mg/dL Normal [facility] Comment on above: Order Comment: Speci men Type: BLOOD SPECIMENOrdering Facility: [facility] Address: [address] [place] [address] Result Comment: eAG: (Estimated average glucose) is a calculated value from HgbA1c and is promotions representative of the average blood glucose level in the last 2-3 month period. Performed By: #### 5 5454-3 ####[facility] LABCLIA [id number] [facility] [id number] [place] [address] [place] HbA1c (Bld) [Mass fraction] 5.7 % High 4.3-5.6 [facility] Comment on above: Order Comment: Speci men Type: BLOOD SPECIMENOrdering Facility: [facility] Address: [address] [place] [address] Result Comment: Amer [place] Diabetes Association guidelines indicate that patients with HgbA1c in the range 5.7-6.4% are at increased risk for development of diabetes, and intervention by lifestyle modification may be beneficial. HgbA1c greater or equal to 6.5% is considered diagnostic of diabetes. Performed By: #### 5 5454-3 ####[facility] LABCLIA [id number] [place] [address] [place] Lipid 1996 panelon 4 Cholesterol [Mass/Vol] 87 mg/dL Normal <200 [facility] Comment on above: Order Comment: Speci men Type: BLOOD SPECIMENOrdering Facility: [facility] Address: [address] [place] [address] Result Comment: <200 mg/dL, Desirable 200-239 mg/dL, Borderline high>239 mg/dL, High Performed By: #### 2 4331-1 ####[facility] LABCLIA [id number] [address] [place] Cholesterol in HDL [Mass/Vol] 37 mg/dL Low >39 [facility] Comment on above: Order Comment: Pemai men Type: BLOOD SPECIMENOrdering Facility: [facility] Address: [address] [place] [address] Result Comment: 40-5 9 mg/dL, Acceptable>59 mg/dL, High: Negative risk factor for coronary heart disease<40 mg/dL, Low: Positive risk factor for coronary heart disease Performed By: #### 2 4331-1 ####[facility] LABCLIA [id number] [address] [place] Cholesterol in LDL [Mass/Vol] 40 mg/dL Normal <100 [facility] Comment on above: Order Comment: Pemai men Type: BLOOD SPECIMENOrdering Facility: [facility] Address: [address] [place] [address] Result Comment: <100 mg/dL, Optimal 100-129 mg/dL, Near optimal/above optimal 130-159 mg/dL, Borderline high 160-189 mg/dL, High>189 mg/dL, Very highSecondary prevention optimal LDL Cholesterol levels are recommended to be < 70 mg/dL Performed By: #### 2 4331-1 ####[facility] LABCLIA [id number] [place] [address] [place] Cholesterol in LDL/Cholesterol in HDL [Mass ratio] 1.08 {ratio} Normal <2.54 [facility] Comment on above: Order Comment: Pemai men Type: BLOOD SPECIMENOrdering Facility: [facility] Address: [address] [place] [address] Result Comment: Refe rence:1. National Cholesterol Education Program ATP III Guideline At-A-Glance Quick Desk Reference: National Heart, Lung, and Blood [place]. National Institutes of Health. 2001: NIH Publication No. 01-3305.2. An International Atherosclerosis Society position paper: global recommendations for the management of dyslipidemia: executive summary, Atherosclerosis. 2014: 232(2):410-413. Performed By: #### 2 4331-1 ####[facility] LABCLIA [id number] [place] [address] [place] Cholesterol in VLDL [Mass/Vol] 10 mg/dL Normal <30 [facility] Comment on above: Order Comment: Demarco harris Type: BLOOD SPECIMENOrdering Facility: [facility] Address: [address] [place] [address] Performed By: #### 2 4331-1 ####[facility] LABCLIA [id number] [place] [address] [place] Cholesterol non HDL [Mass/Vol] 50 mg/dL Normal <130 [facility] Comment on above: Order Comment: Pemai kimberly Type: BLOOD SPECIMENOrdering Facility: [facility] Address: [address] [place] [address] Result Comment: <130 mg/dL, Optimal 130-159 mg/dL, Near optimal/above optimal 160-189 mg/dL, Borderline high 190-219 mg/dL, High>219 mg/dL, Very highSecondary prevention optimal non HDL Cholesterol levels are recommended to be <100 mg/dL Performed By: #### 2 4331-1 ####[facility] LABCLIA [id number] [place] [address] [place] Cholesterol.total/Veronika sterol in HDL [Mass ratio] 2.35 {ratio} Normal <5.10 [facility] Comment on above: Order Comment: Speci men Type: BLOOD SPECIMENOrdering Facility: [facility] Address: [address] [place] [address] Performed By: #### 2 4331-1 ####[facility] LABIA [id number] [place] [address] [place] FASTING TIME 10 hrs Normal [facility] Comment on above: Order Comment: Speci men Type: BLOOD SPECIMENOrdering Facility: [facility] Address: [address] [place] [address] Performed By: #### 2 4331-1 ####[facility] LABIA [id number] [place] [address] [place] Triglyceride [Mass/Vol] 52 mg/dL Normal <150 [facility] Comment on above: Order Comment: Speci men Type: BLOOD SPECIMENOrdering Facility: [facility] Address: [address] [place] [address] Result Comment: <150 mg/dL, Normal 150-199 mg/dL, Borderline high 200-499 mg/dL, High>499 mg/dL, Very high Performed By: #### 2 4331-1 ####[facility] LABIA [id number] [place] [address] [place] PSA/PROSTATE SPECIFIC ANTIGE N SCREENINGon 04-25-2024 Prostate specific Ag [Mass/Vol] 1.63 ng/mL Normal <2.60 [facility] Comment on above: Order Comment: Speci men Type: BLOOD SPECIMENOrdering Facility: [facility] Address: [address] [place] [address] Result Comment: Tota l PSA test methodology used is the Electrochemiluminescence Immunoassay by [employer]. Total PSA values by differing methodologies cannot be interchanged. Performed By: #### P SAS1 ####[facility] LABCLIA [id number] MALIK [address] [place] [address] [place] TSH SerPl-aCncon 04-25-2024 TSH Qn 0.853 m[IU]/L Normal 0.270-4.20 0 [facility] Comment on above: Order Comment: Speci men Type: BLOOD SPECIMENOrdering Facility: [facility] Address: [address] [place] [address] Performed By: #### 3 016-3 ####[facility] LABORATORYCLIA [id number] [address] [place] ECG COMPLETEon 03-19-2024 Atrial Rate 76 BPM [facility] Calculated P [place] 10 degrees [facility] Calculated R [place] 7 degrees [facility] Calculated T [place] 15 degrees [facility] P-R Interval 188 ms [facility] QRS Duration 96 ms [facility] QT Interval 386 ms [facility] QTC Calculation (Bazett) 434 ms [facility] Ventricular Rate 76 BPM [facility] NORMAL SINUS RHYTHM LOW VOLTAGE QRS, IN PRECORDIAL LEADS INFERIOR MYOCARDIAL INFARCTION , AGE UNCERTAIN ABNORMAL ECG Confirmed by SANDRA BECKER MD ([id number]) on 03/19/2024 3:46:46 PM [facility] NAME : TERE BARONE PID : [id number] : 1950 Gender : Male Race : ORD : [id number] Procedure Date : Mar 19 2024 14:39:15 Edit Date : Mar 19 2024 15:46:47 Diagnosis: NORMAL SINUS RHYTHM LOW VOLTAGE QRS, IN PRECORDIAL LEADS INFERIOR MYOCARDIAL INFARCTION , AGE UNCERTAIN ABNORMAL ECG Confirmed by SANDRA BECKER MD ([id number]) on 03/19/2024 3:46:46 PM Test Reason : I10 Primary hypertension Location : 137 : STCARD Overread By : SANDRA BECKER MD Edited By : SANDRA BECKER MD Referred By : , Acquired by : rr, [facility] SKIN / NAIL BIOPSYon Type of biopsy: moss ential Informed consent: discussed and consent obtained Informed consent comment: Risks, benefits, and alternatives discussed. Timeout: patient name, date of , surgical site, and procedure verified Procedure prep: Patient was prepped and draped in usual sterile fashion Prep type: Isopropyl alcohol Anesthesia: the lesion was anesthetized in a standard fashion Anesthetic: 1% lidocaine w/ epinephrine 1-100,000 local infiltration Instrument used: DermaBlade Hemostasis achieved with: aluminum chloride Outcome: patient tolerated procedure well Post-procedure details: sterile dressing applied and wound care instructions given Dressing type: petrolatum and bandage Additional details: Shave biopsy to establish and confirm diagnosis. Photos in Get Images. [facility] HbA1c (Bld)on 01-05-2024 Average glucose Estimated from glycated hemoglobin (Bld) [Mass/Vol] 134 mg/dL [facility] Comment on above: eAG: (Estimated aver age glucose) is a calculated value from HgbA1c and is promotions representative of the average blood glucose level in the last 2-3 month period. HbA1c (Bld) [Mass fraction] 6.3 % High 4.3 - 5.6 % [facility] Comment on above: [place] Diabetes As sociation guidelines indicate that patients with HgbA1c in the range 5.7-6.4% are at increased risk for development of diabetes, and intervention by lifestyle modification may be beneficial. HgbA1c greater or equal to 6.5% is considered diagnostic of diabetes. Interpretation and review of laboratory results Abnormal [facility] XR Shoulder - right 3 Viewso n 12-17-2023 Radiology Study observation (narrative) [facility] IMPRESSION: No acute osseous abnormality Research Dietitian: MICHELE Transcribe Date/Time: Dec 17 2023 4:33P Dictated by : BRITTNEY NEWTON MD This examination was interpreted and the report reviewed and electronically signed by: BRITTNEY NEWTON MD on Dec 17 2023 4:38PM [facility] DIVISION OF RADIOLOGY * * *Final Report* * * DATE OF EXAM: Dec 17 2023 4:31PM [id number] [id number] - XR SHLDR >/=3V AP/ABRAHAM AP/OTHR RT / PROCEDURE REASON: Acute pain of right shoulder * * * * Physician Interpretation * * * * EXAMINATION: XR SHLDR >/=3V AP/ABRAHAM AP/OTHR RT CLINICAL HISTORY: Right shoulder pain Technique: XR SHLDR >/=3V AP/ABRAHAM AP/OTHR RT -- RIGHT with 3 views on 3 images Comparison: None RESULT: No acute fracture or dislocation. Acromioclavicular and glenohumeral marginal osteophytes. DIVISION OF RADIOLOGY [facility] * * *Final Report* * * DATE OF EXAM: Dec 17 2023 4:31PM [id number] [id number] - XR SHLDR >/=3V AP/ABRAHAM AP/OTHR RT / PROCEDURE REASON: Acute pain of right shoulder * * * * Physician Interpretation * * * * EXAMINATION: XR SHLDR >/=3V AP/ABRAHAM AP/OTHR RT CLINICAL HISTORY: Right shoulder pain Technique: XR SHLDR >/=3V AP/ABRAHAM AP/OTHR RT -- RIGHT with 3 views on 3 images Comparison: None RESULT: No acute fracture or dislocation. Acromioclavicular and glenohumeral marginal osteophytes. IMPRESSION IMPRESSION: No acute osseous abnormality Research Dietitian: PSCAlireza Transcribe Date/Time: Dec 17 2023 4:33P Dictated by : BRITTNEY NEWTON MD This examination was interpreted and the report reviewed and electronically signed by: BRITTNEY NEWTON MD on Dec 17 2023 4:38PM EST [facility] XR Shoulder - right 3 ViewsO rdered By: Psychiatric Provider on 12-17-2023 [facility] SKIN / NAIL BIOPSYon 05-22-2 024 Type of biopsy: moss ential Informed consent: discussed and consent obtained Informed consent comment: Risks, benefits, and alternatives discussed. Timeout: patient name, date of , surgical site, and procedure verified Procedure prep: Patient was prepped and draped in usual sterile fashion Prep type: Isopropyl alcohol Anesthesia: the lesion was anesthetized in a standard fashion Anesthetic: 1% lidocaine w/ epinephrine 1-100,000 local infiltration Instrument used: DermaBlade Hemostasis achieved with: aluminum chloride Outcome: patient tolerated procedure well Post-procedure details: sterile dressing applied and wound care instructions given Dressing type: petrolatum and bandage Additional details: Shave biopsy to establish and confirm diagnosis. Photos in Get Images. [facility] SURGICAL PATHOLOGYOrdered By : Jamee Sutherland on 08-13-2023 Case Report Surgical Pathology R eport Case: [id number] Authorizing Provider: Lise Corado MD, PhD Collected: 08/09/2023 10:11 AM Ordering Location: Ambulatory Surgery Received: 08/09/2023 12:01 PM Pathologist: Jamee Sutherland MD Specimens: A) - COLON POLYP, splenic flexure B) - COLON POLYP, descending colon C) - COLON POLYP, sigmoid colon x 5 D) - COLON POLYP, rectum x 3 [facility] Work Phone: FINAL DIAGNOSIS [id number] NVxhbnN aOZIfkTBbI5OogqehOVjoDM5wDE 9hxPlfiNFzyTCgMKMzDyEgd2esw 361eSBtv0mcNDTBxbuuaJe2vZmg X66am3V3DhdhA28tvCMwIWD3LIR aHRDixRFyOZOyDRY9GMQizQJlJ4 edZCPxGO0zjipkVFkiYXfaNSRjc RC9ORZdmVQpY8VdCDFrUMhhKIPk ibu6HoHmMe3ktDGwmMqxPEskXZV xDWZqSEaiBMWzLaUdUZ1kJHWzuP 9uIHBvbHlwLCBzcGxlbmljIGZsZ Jv4gsXgBOCfk7SvuTesuVFrAE0p NJJljMnxmoJmBLXjo70uQtjtSLU swYOeAFQtEOCPh4gpbfMef6p5zG qjAOPnA6PnSWtqTypoMuwqjGO7V wehSGXiKNCAtUO0lYEkWZLqNM1b jOIvMRFvmlnoGDBbCe2tCBEyzU2 qMDLojMciITWaxWxzi6dtVKsmXF vxFqmxtKL7XualSJDlQKLYuVn7k BYmXSAwevCcoGQekJDeb9GkuJTg kKmbmnMyEGHnj30zUawdTIYjNIL VdWHmtbEpCQN7uMMilO1rcLSdPk ycFYLscHDbVKBeGLJCc8ykhnTjx 2a7mIngdiAjcTOyMWopSnigNlwd fAQ4RdzxLADaLFQKiWg0zGZwPTH iixHsaJBqiDKbx1DstYVgaUsheo dcwU02yvMzKBRza80nNyhlAUDbQ MWQySJaknUaMDX1jZVfrL4mbQYy LlxwYXJ9 [facility] Work Phone: Gross Description q2dejHJzEMGigQWIJEK5 MDJcYW5 wtBpfhBt8rFbfTUVgzoZ7yXOgIV hfs0ciCBJ7f8fyljTOAkxfHREdG X0kITaeKCHqOV3sJkJaKGFcJdLi XHBhcGVydzEyMjQwXHBhcGVyaDE 7COOgDL5lranzWZrqLXrcCWTmll W2FSRvwSShO2NqMAEdBW5wvbspT XS8ADDDNgxeUj5bsMCylOikOeGj SdKvHSScADDcUKOcm7fsdbLWxue bdDh5qY8TZKNxW4LmQW3Lq3hbHQ SjdBFhFMA1IDylk6qyBUvmJKZ3H UPbKRIwGBDbUX3CZuYpTDN8AKbd LeM0ZfM7ZUd9YMBHBSXtGAQjXoY 0SmUcVAc5NTpqUXefwIClGSZvZM BxZAEdSIrmgcX5x6jiTCEihNMzA JZ1ZUtjj2hfDQkgHJA4XSQfHxFb DHSqIS7ZZlCvXSI2DRxoEgE1GmF 7YNp5IOHQBiHgEnIvUBbsSWE3Db XcVSg1BKl0HLsKSpGzUfKpNsrbG wdsOjQ6GYZmNxIdRNCwEqSmYFYw TUGkJYebuQDnCU4uxYviYYNwTL0 TDHHaPVfnINCkQxImZH0tV28KN8 3yFL1KFJEbjVJlS5nywXTiSF6PN TDzrgNoIKqhlHpnpK1jvMQaF6ul ZnMyMlxlcGljTmVzdERvYzEgDQp sePFlxLOdAGUnVeXlXEDkL2ssIA YkEG1UFSFsQeLdTgTaIKc0IHQgw E6zRg2vsMJnqY3znDSsj95cTSFp ztFtl7u7wG0hWBTlGRzmLL09UN1 oNSZko8B6TCNcHWLszGFhdxbnJW 28PIuyVH17JOniUN1oZGQlBxMNw kLrmJWdylCrtbEacxWzNM16JpIA iRArgZriZRIgNmDfTZWyK8Dmt29 ppWNznu76WXAaBABuUOZinQNexK 1borNpkdEwcLXtY8BfKDDwsaJhx R98ZPfawPBtxDIgqLJ3YYOznW2d y06zRNAzo9UjqUQxIg3AITUpoQS QFQX9HY2kABdcSBEaI3OoJ0Lglk E3IRGbhmCMXmnlIjqslQyui3Ssy CBcXHNnIFxcaWQgNTEwMDIgXFxk QnWJKzZnDyJ9UbC1ROCdRNZmZDk 8JZvoZ4YNNQEiKMS8LSf1ZtNcIx B8OFg9TLOMSw0jPAXfZGP5YiL0Q LXnYMK0YaUtEVt2EWOzXJyvvmAl FAjhQarfXTyuM82xbJFxOFtpUaJ jILueaHrpCXArQYG0ZA8WMNZbOu YkCv3lT07NV17yZG0JSXPkpDKjX J0JIOFptoFiCEzybCgikO0dgIAh Z5lhYfZoLncyyMbnNmXbcONcVdF gDQpcbHRycGFyXHNiMzBcZXBpY1 neBeYzJWAdReFxONMdA7fyTPTaL R9BVJErQyNiHgFsHYc7CVWpaU5t Br0usRCndV5sjGPud47rWBDhyuJ zg3e3qF4lEIKwYWobDT54VM5iPS Ryk9K0XPJsODCaoBTlyineSL83S LjdLJ98JOvmBN1uOCZlLyPUtaZa jOTcwzCbmiGrenJvNI46QkUItTI jqAofWSLsYpQbFCNcP4Ahz07dlT Cuug59SCZaBMFbLSOrfYRotZ2mf fNmknUzyCNhS9YiEYTrfrMmiF90 BCpxkEYzfSNvcPL6WWPvrD6ad58 mNPIqx9GvbFFrOk6NVMZhxBNWEJ D8GY0gBGnwAXXbY8XmN0SkboP4T BNvjtDUXtrhEcjazRgnt3TrrYIj XHNnIFxcaWQgNTEwMDIgXFxkYiB IBqZrIyI9QaX5NDOwMOQnTNx5RE awP9OUEFUrEGG0TKr6LTB3QwZ1K Oa1EUBOYe4lPFWzXQV7NrXbVOga ZYA1ZmZsGAo3NQCnVUkvjyVsKZj yVjgpESdaF82wrDAgPSztJhMaTN mzjJpdGLAlCDS9WK2EWKRhGnOtP e3kR43JZ78jSH7WCDZxpVHaIJ8L SKPzjnArXVlxdYfsuI8jvOCtQ6u cZnMyMlxlcGljTmVzdERvYzEgDQ aksKPrwHVoTBGvSvIvNXRfQ9cqM mYmDEUfKcHyDDQlU7wlBUOoEY9M LHKjLiCeTaNeKRs1YYWstJ8oCz4 vsMEamP2cDUWnSK82pDBvrHbsGF HsseFql5r3uA6bWFIoSYfcER87w pLsWeB6mFSvjSVuteEdB0xvFwHg mdUfkNvsZHHgj43bOJ11UHkzEQ6 1NRwpIT16HVFgRPIxGAObQUM9MS IhDpI4VMQaQjZktZ8oKl1nt6Rxw AgoDMIaXLFvkaFcJV71TpBKeASq cKcbJWGnw2LoemIqUJI6rC2oSUJ eGYNzo2ZeHX8aCEilXVvekfguwz McfETmmC7glnBdVDRjIDUdp0Wox VOzWRPaMXB8g6ZsrFt8GKG9Ki1a zJRiQKUdvmNqWSKdZLP1WWSGQQ2 qKLhkSGDfSChiLLFaw0JmX5qtWJ 0nUVAeYHKzn1Zzu6BhzYlxepBjL QFkUYF0d5AvxOi5BOX8Tc9bwMQp GLYuyvIcSVHgDQN4SCPIAt4PZoz wzHmuLbNhqSWzJrR9RBLyzCFmWS A9CN2sbZmvMLAwDIr2THpoLKIbK 7HuH7EyDGkuWaAiIIeuLOIzLOYe NRsyKGSyR0KMMGLhHPGaXlGjOTT iKXq5JGs5UD2KJfNaUCD2SuS2Bj TfVdQqODk4QBnsKV9WLETcVpDyV QOkCFe4DUE7YnZyJLkvoWMwCXqq s4HcNwMmOVMhMMntemV4FFYaxtT db8KiJJDyBJXwW6dlReJqMDCPRr gddlKzZERdROLUPG4JLBKDFScHB AAtuiJDOeguDAQwHM6CHFCvXFln YXy7rlAnHPNkCyKsMHWpI27ke8G Oh0BcUK4FGDi0hpEexzosByVoGK VkuQWTl2VbRONPTtsmafQpTZSmT 7EjpwKaBTyyXNDmqe8sqSjpSFMb JBNkh5XhLOIzfhPkp6e1oR4lHSG rOSjaQU30fxLjWuF1sTVxdMYgmv RjR4obZfKyhuGgoNdjJUYmz13dH V6jEIgqYC28LRotGC73QTFtAACk GYOkPyD3OHWbZHR3SWYrClUyxI9 aVr9hx6PbmLjyVCLlBJGcfdJtCZ 80VkJVuGZhxXkeRIMtr4SpxaLuP QV6rM4mCDRfQVOlc1RpOB8tIFum IHNwZWNpbWVucyBhcmUgYmlzZWN 6WKRaEG3vGVTpeWRbzIwuw8HllJ v2yMFhYXtjJAC5ijVlERTgKIQ3G XMuIFxwYXIgDQpccGFyZFxsdHJw FLNqKFchtHOrSL5IN5Ggs2EjNYp jzQvlNXTgh12okNJwQv3ilKIcFX U8GMUbOPSfqXBfFGNZaVzavGPlG Jv1GJIcNBYcwYcaBRW6BK7xWDAu XEZxiWWrFUalW8baCZTeZLNxqIO sXK7CVUOhjuWPJjsGGSXuMiE2Bk IwMjQgNzozMCBQTVxwYXIgDQpcc 2EzMFxlcGljWHNhMzAgDQpcZXBp K75vn3XTq6Asf5spiTrgx3CrdNZ xZU26CWWqyATsJFC2BK5jpKmgJK SeYKyqlROeOMIHAjwxzfYoZM1Ml Q== [facility] Work Phone: Performing Lab a5letBMtMKRhfYLwZfQd MDAwXGF si6jfLNPrpAPmPkLdRpRoCeJkDa czsBNwSNUlDuYqg1fmu787mEQgp 9owXTNgRhZ2oEHqIXLjhALlK319 RHWoFNwhj5wgq8NwQYTpyNOoi9J 3UKQSpivqgNz2eAxsN19sj8K7Yw oxQ5zgQLSuUHJjR6YjZE3mTLBgZ ya2ASS3ADS4BAJmCHQfA5RoBW9l BWIaiHOrTNm9u4lqhTakZBSoRXL 2y8gvMUwxiuVfUK2gqt1nhUc3c6 cmohPeIYTjRYVyeZBUORUdH1Pyl SluFr9slPh4xCjxWorcGMV9Szv4 SK1bxf07tmy0kQauRUBqbethIuJ 9HBypPZVfsuizIQi8OVueXOTzeT R5WQXyaKCyV1UiIXIyKH7lflg2B ME3PXgqODPsWdA4PZCwlCXhRTRc pYsnMCdea126OTD4OdQoIZ4zO2A ka8L1mC7myDKhBOVjsAPeQiJhFX Wkej4zdHAjUIkhs7WxMVA9ebC7g TBjgDYyXEAxDS39Ifwsd3ZyAyja p7MtG39klLS2CJhdd9ezRS6sQmB 7qcPbLNuva9hcrE4fIsH1OIduVY 9vGG9iAUUceI3buwamVKLyGqRpg hkkMQEyjYggecOdZq9uyNzwRXI3 NLbvB5zouV0zSnS7TEsuN4egdB4 lRYe0TBzzvVJ3XJEbrV4oZV0zck sxh6xbGSuiGMdkMIGgcsG1rcI5I JXmdYKeB7FanT2gPLQmKC8xtzyc n5utMEU9NWvyCZPdABX8QqEpXYB la8Iafgj7LoIpt8EkyKIsKEctW6 0gh267CIFavkMeZ1tusYTsisehw ZSslxqoCMsiawR0SAQsUJXxXPbv XGYxXGZzMjJcbGFuZzEwMzNcaGl mcUpoXNfrQzTrTIKtDPnvX1osYd AlJyMeFrESuQXwlm0gcCrbDAzcy ZNssMPvlUQ4mZ8eLOTskbQjtt2f OAFafGNZeNN1VBvjucDxB4ovxck fFAYqqVAkHOQxcC39DGVQl5PqhW RhbCwgMjAwMDAgSGFydmFyZCwgV 3ZxebErp2BxgGfbBFq5geYESKG6 NDEyMiAgICBDTElBIyAzNkQwNjY 4NjMxXHBhclxwYXJccGFyZFxwbG UqfvkxAViinzP3YCPtPQmhTCBvF GZzMjJcbGFuZzEwMzNcaGljaFxm OKquZpLuBSWqVLoyI7wvQlKdK1A lSZIzWbRtzAEvO4yoKCHpg8GpiN 5ikCZouUlvnW0vVtNzNyXgSzzdN R0tEGTkB1faqRMxDDSxGYPzQ1uf SbIkkY8veFycGUzebnGoJATesmH dpI3kIzVCOGCirAolL9I0zhEggY FuLCBNLkQuXHBhcn0= [facility] Work Phone: [facility] Work Phone: Colonoscopy Study observatio non 08-09-2023 [facility] Gastrointestinal Endoscopy Patient Name: Tere Barone Procedure Date: 08/09/2023 9:24 AM Date of : 1950 Admit Type: Outpatient Age: 73 Gender: Male Note Status: Finalized Procedure: Colonoscopy Indications: Screening for colorectal malignant neoplasm Providers: Lise Corado MD Patient Profile: This is a 73 year old male. Refer to note in patient chart for documentation of history and physical. Last Colonoscopy: none. The patient's first colonoscopy is today. Referring Physician: Samm Kc DO (Referring MD) Medicines: Fentanyl 50 micrograms IV, Midazolam 3 mg IV Complications: No immediate complications. Requesting Provider: Procedure: Pre-Anesthesia Assessment: - Prior to the procedure, a History and Physical was performed, and patient medications and allergies were reviewed. The patient's tolerance of previous anesthesia was also reviewed. The risks and benefits of the procedure and the sedation options and risks were discussed with the patient. All questions were answered, and informed consent was obtained. Prior Anticoagulants: The patient has taken no anticoagulant or antiplatelet agents. ASA Grade Assessment: II - A patient with mild systemic disease. After reviewing the risks and benefits, the patient was deemed in satisfactory condition to undergo the procedure. After I obtained informed consent, the scope was passed under direct vision. Throughout the procedure, the patient's blood pressure, pulse, and oxygen saturations were monitored continuously. The Colonoscope was introduced through the anus and advanced to the cecum, identified by appendiceal orifice and ileocecal valve. The colonoscopy was performed without difficulty. The patient tolerated the procedure well. The quality of the bowel preparation was good. The terminal ileum, the ileocecal valve, the appendiceal orifice and the rectum were photographed. Moderate Sedation: Moderate (conscious) sedation was administered by the nurse and supervised by the endoscopist. The following parameters were monitored: oxygen saturation, heart rate, blood pressure, and response to care. Total physician intraservice time was 60 minutes. The administration of moderate sedation was initiated at 09:55 AM. Findings: Hemorrhoids were found on perianal exam. A 15 mm polyp was found in the rectum. The polyp was pedunculated. The polyp was removed with a hot snare. Resection and retrieval were complete. Estimated blood loss: none. A 3 mm polyp was found in the sigmoid colon. The polyp was sessile. The polyp was removed with a cold snare. Resection and retrieval were complete. Estimated blood loss: none. Five sessile polyps were found in the sigmoid colon. The polyps were 2 mm in size. These polyps were removed with a cold snare. Resection and retrieval were complete. A 2 mm polyp was found in the descending colon. The polyp was sessile. The polyp was removed with a cold snare. Resection and retrieval were complete. Impression: - Hemorrhoids found on perianal exam. - One 15 mm polyp in the rectum, removed with a hot snare. Resected and retrieved. - One 30 mm polyp in the sigmoid colon, removed with a cold snare. Resected and retrieved. - Five 21 mm polyps in the sigmoid colon, removed with a cold snare. Resected and retrieved. - One 2 mm polyp in the descending colon, removed with a cold snare. Resected and retrieved. Estimated Blood Loss: Estimated blood loss: none. Recommendation: - Await pathology results. - Repeat colonoscopy in 6 months for surveillance. - Patient has a contact number available for emergencies. The signs and symptoms of potential delayed complications were discussed with the patient. Return to normal activities tomorrow. Written discharge instructions were provided (more content not included)... [employer] [facility] Radiology Study observation (narrative) [facility] GLUCOSE, BLOOD (POC)on Glucose [Mass/Vol] 136 mg/dL Abnormal 74 - 99 mg/dL [facility] Comment on above: Location:[address], [facility] The Accu-Chek Inform II glucose meter has not been approved for testing on patients receiving intensive medical intervention or therapy and results from this point of care glucose test should not be used for patient management decisions in these cases. Inaccurate results may also occur from other interfering factors, such as N-acetylcysteine (blood concentrations of greater than 5mg/dL), galactose, extremes of hematocrit (<10 or >65), or high doses of ascorbic acid (vitamin C) greater than 3mg/dL. Consider alternate testing mechanisms (e.g. core lab, blood gas instrument) in the above situations. Interpretation and review of laboratory results Abnormal [facility] ECG COMPLETEon 12-15-2022 Atrial Rate 67 BPM [facility] Calculated P [place] 16 degrees [facility] Calculated R [place] -[address] [facility] Calculated T [place] -6 degrees [facility] P-R Interval 212 ms [facility] QRS Duration 106 ms [facility] QT Interval 426 ms [facility] QTC Calculation (Bazett) 450 ms [facility] Ventricular Rate 67 BPM [facility] HEMOGLOBIN A1C (POC)on 08-02 HbA1c (Bld) [Mass fraction] 7.5 % Abnormal 4.2 - 5.6 % [facility] ALLIED HEALTHon 05-05-2022 ALLIED HEALTH HNO ID: [id number] Author: RT Viv(R) Service: Radiology Author Type: Technologist Type: Allied Health Filed: 05/05/2022 12:48 PM Note Text: Radiology Service Progress Note PATIENT NAME: Justin Barone DATE OF SERVICE: May 05, 2022 TIME: 12:12 PM PATIENT IDENTITY VERIFICATION COMPLETED USING TWO (2) IDENTIFIERS: Name and Date of confirmed by patient verbally. FALL SCREENING: Has the patient had 2 falls in the last year or 1 fall with injury or currently using an Ambulatory Assistive Device (Walker, Cane, Wheelchair, Crutches, etc.)? No PATIENT GENDER DATA: Male PATIENT RELEVANT IMPLANT DATA REVIEWED: Yes RADIOLOGY DEPARTMENT: MR; Exam(s) Completed: Neck: Carotids MRA, bilateral PERIPHERAL IV DATA: Site assessment: Clean,Dry and Intact, Site disposition Discontinued SIGNED BY: RT Viv(R) Sarahi Rao(Mayuri) May 05, 2022 12:12 PM [facility] MRA CAROTID WO/W IVCONon MRA CAROTID WO/W IVCON * * *Final Report * * * DATE OF EXAM: May 05 2022 12:48PM [facility] [id number] - MRA CAROTID WO/W IVCON / PROCEDURE REASON: Occlusion and stenosis of unspecified carotid artery * * * * Physician Interpretation * * * * EXAMINATION: MRA CAROTID WO/W IVCON CLINICAL HISTORY: Syncopal episode, recently. Chronic back pain and frequent falls. Memory impairment since beaking was clearly. Reported 80% stenosis of the right ICA on outside CTA. Moderate right ICA stenosis on ultrasound. TECHNIQUE: Routine noncontrast MRI protocol including diffusion and gradient echo images. Intracranial and extracranial 3D [id number]-tzxpns MRA with post-processing performed at the modality and 2D multiplanar and 3D maximum intensity projections were created, reviewed and archived. MQ: [id number] COMPARISON: Ultrasound carotid from 01/25/2022. RESULT: BRAIN: Limited images the brain are unremarkable. EXTRACRANIAL MRA: AORTIC ARCH is normal in configuration. No focal stenoses in the proximal great vessels or subclavian arteries. Carotid Stenosis: Right Common: No significant stenosis. Right Internal Plaque: Difficult to determine due to motion Right Internal Carotid Stenosis (% by NASCET Criteria): 30% at the origin Left Common: No significant stenosis. Left Internal Carotid Plaque: No significant plaque formation. Left Internal Carotid Stenosis (% by NASCET Criteria): Less than 30% Cervical Vertebral Arteries: Patency: Bilateral Dominance: Right Contrast-enhanced MRA of the corroborate these findings. IMPRESSION: 30% stenosis at the origin the right ICA. This is better visualized on the contrast-enhanced MRA. Due to motion it is difficult to determine integrated stenosis in the 3-D TOF noncontrast MRA. Less than 30% stenosis at the origin of left ICA. Research Dietitian: PSCB Transcribe Date/Time: May 05 2022 2:00P Dictated by : AGNES CHILDS MD This examination was interpreted and the report reviewed and electronically signed by: AGNES CHILDS MD on May 05 2022 2:08PM EST [id number] Normal [facility] CNPNon 04-21-2022 CNPN Telephone (AVXRMR) JUSTIN BARONE ([id number]) 1950 M T Date Time Provider Department 04/21/22 LARGE HOPS PROCEDURE RM 1 AVXRMR During your visit today, we recorded the following information about you: Allergies As of Date: 04/21/2022 (No Known Allergies) Date Reviewed: 04/18/2022 Reviewed by: Priscilla Salas MD - Fully Assessed Reason for Visit: Orders [681] Primary Visit Diagnosis:Occlusion and stenosis of unspecified carotid artery [I65.29] Order(s):MRA CAROTID WO/W IVCON [[id number]] Order #: [id number] FUTURE iv contrast (will be provided with radiology test)MRA Carotid WO/W Inject, intravenously, once for 1 dose. No IV access, insert saline lock prior to the beginning of sedation, infusion, injection of imaging exam. Discontinue saline lock post exam. If Pt. has a central line or IVAD, may access for administration according to line specific nursing protocol. Once exam is complete flush line and de-access according to line specific nursing protocol in the MR contrast administration guidelines link.Disp: 1 EachRfl: 0 Prescriptions as of 04/22/2022 - iv contrast (will be provided with radiology test) MRA Carotid WO/W Inject, intravenously, once for 1 dose. No IV access, insert saline lock prior to the beginning of sedation, infusion, injection of imaging exam. Discontinue saline lock post exam. If Pt. has a central line or IVAD, may access for administration according to line specific nursing protocol. Once exam is complete flush line and de-access according to line specific nursing protocol in the MR contrast administration guidelines link. - flash glucose sensor (FREESTYLE YESSENIA 2 SENSOR) kit CHANGE EVERY 14 DAYS - B Complex-Folic Acid (B COMPLEX 1, WITH FOLIC ACID,) 0.4 mg tab Take 1 tablet by mouth once daily. - semaglutide (RYBELSUS) 14 mg tablet Take 1 tablet (14 mg) by mouth daily before breakfast. - glipiZIDE (GLUCOTROL XL) 2.5 mg 24 hr tablet Take 1 tablet by mouth once daily. - metFORMIN (GLUCOPHAGE) 500 mg tablet Take 1 tablet by mouth twice daily. - gabapentin (NEURONTIN) 100 mg capsule Take by mouth. - thiamine (VITAMIN B1) 100 mg tablet 100 mg once daily. - Cholecalciferol, Vitamin D3, 25 mcg (1,000 unit) cap Take 1,000 Units by mouth once daily. - UNILET LANCET 28 gauge 20 Units twice daily. - losartan (COZAAR) 25 mg tablet Take 0.5 tablets by mouth once daily. - polyethylene glycol 3350 (MIRALAX, GLYCOLAX) 17 gram packet Take 1 Packet by mouth once daily. Dissolve dose in 4 - 8 ounces of liquid and take as directed. - acetaminophen (TYLENOL) 325 mg tablet Take 1-2 tablets by mouth every 6 hours as needed for pain or fever (specify). - albuterol HFA (PROVENTIL HFA, VENTOLIN HFA) 90 mcg/actuation inhaler Inhale 2 Puffs as instructed every 4 hours as needed for wheezing/shortness of breath. - atorvastatin (LIPITOR) 80 mg tablet 1 tablet by ORAL/FEEDING TUBE route daily at bedtime. - metoprolol succinate ER (TOPROL XL) 25 mg 24 hr tablet Take 1 tablet by mouth once daily. - aspirin 81 mg chewable tablet 1 tablet by ORAL/FEEDING TUBE route once daily. 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 S/P lumbar fusion [Z98.1] 10/01/2017 Spondylolisthesis of lumbar region [M43.16] 10/01/2017 Chronic bilateral low back pain without sciatic*10/01/2017 Combined forms of age-related cataract of right*06/14/2021 NS (nuclear sclerosis), right [H25.11] 06/16/2021 Posterior subcapsular polar age-related catarac*06/16/2021 Syncope [R55] 07/23/2021 Elevated troponin [R77.8] 07/23/2021 Slurred speech [R47.81] 07/23/2021 07/24/2021 Leukocytosis [D72.829] 07/23/2021 07/24/2021 Altered mental status [R41.82] 07/23/2021 07/24/2021 Tobacco use disorder [F17.200] 07/24/2021 Obesity, Class I, BMI 30-34.9 [E66.9] 08/03/2021 Type 2 diabetes mellitus with hyperglycemia (HC*08/03/2021 Essential hypertension [I10] 08/03/2021 Mixed hyperlipidemia [E78.2] 08/03/2021 COVID-19 [U07.1] 08/03/2021 Frequent falls [R29.6] 08/03/2021 Granular casts present in urine [R82.998] 08/03/2021 Multiple falls [R29.6] 08/04/2021 Acute respiratory failure with hypoxia (HCC) [J*08/10/2021 Cardiomyopathy, ischemic [I25.5] 09/13/2021 Stenosis of right carotid artery [I65.21] 10/12/2021 Alcohol abuse [F10.10] 04/18/2022 Occlusion and katy (more content not included)... Normal [facility] SCREENING FOR AAAon 04-14 [facility] CAROTID BILATon [facility] HEMOGLOBIN A1C (POC)on 12-21 HbA1c (Bld) [Mass fraction] 6.2 % 4.2 - 5.6 % [facility] ABD RT UPPER QUADRANTon 0 12-02-2021 [facility] ABD SPLEEN - NBon 022 [facility] PLT DEP.AB, UNF. HEPARINon 0 11-19-2021 Serotonin release.heparin.porcine (S) [Interp] 0 % [facility] Serotonin release.heparin.porcine (S) [Interp] Negative Negative [facility] Serotonin release.heparin.porcine panel (S) See Note [facility] Serotonin release.heparin.unfract ionated panel (S) 0 % [facility] Comprehensive metabolic 2000 panelon 11-11-2021 Albumin [Mass/Vol] 4.0 g/dL 3.9 - 4.9 g/dL [facility] ALP [Catalytic activity/Vol] 89 U/L 38 - 113 U/L [facility] ALT [Catalytic activity/Vol] 20 U/L 10 - 54 U/L [facility] Anion gap [Moles/Vol] 9 mmol/L 9 - 18 mmol/L [facility] AST [Catalytic activity/Vol] 24 U/L 14 - 40 U/L [facility] Bilirubin [Mass/Vol] 0.4 mg/dL 0.2 - 1 .3 mg/dL [facility] Calcium [Mass/Vol] 9.3 mg/dL 8.5 - 10. 2 mg/dL [facility] Chloride [Moles/Vol] 107 mmol/L High 97 - 10 5 mmol/L [facility] CO2 [Moles/Vol] 24 mmol/L 22 - 30 mmol/L [facility] Creatinine [Mass/Vol] 0.83 mg/dL 0.73 - 1.22 mg/dL [facility] Estimated Glomerular Filtration Rate 93 mL/min/1.73m >=60 mL/min/1.7 3m [facility] Glucose [Mass/Vol] 170 mg/dL High 74 - 99 mg/dL [facility] Potassium [Moles/Vol] 4.3 mmol/L 3.7 - 5.1 mmol/L [facility] Protein [Mass/Vol] 7.0 g/dL 6.3 - 8.0 g/dL [facility] Sodium [Moles/Vol] 140 mmol/L 136 - 144 mmol/L [facility] Urea nitrogen [Mass/Vol] 16 mg/dL 9 - 24 mg/dL [facility] LD LACTATE DEHYDROon 022 LDH [Catalytic activity/Vol] 226 U/L High 135 - 225 U/L [facility] RETIC COUNTon 11-11-2021 Reticulocytes (Bld) [#/Vol] 0.0001 10*3/uL High 0.018 - 0.100 M/uL [facility] Reticulocytes (Bld) [#/Vol]o n 11-11-2021 Reticulocytes/100 RBC (Bld) 2.2 % High 0.4 - 2.0 % [facility] CAROTID BILATon 2 [facility] Heart Perfusion W stress and W radionuclide Jan 09-22-2021 * * *Final Report* * * DATE OF EXAM: Sep 22 2021 3:01PM [address] CARDIAC PERF STRESS/PHARM / PROCEDURE REASON: Encounter for screening for cardiovascular disorders * * * * Physician Interpretation * * * * Stress Economic Analysis Director Report: [facility] Date of service: 09/22/2021 1:08:16 PM Supervising physician: Priscilla Salas MD PATIENT: Name: MR. JUSTIN BARONE Age: 71 years Gender: M The supervising physician was in the department and immediately available. Final PATIENT: Name: MR. JUSTIN BARONE Age: 71 years Gender: M CONCLUSIONS: 1. SPECT Perfusion Study: Abnormal. 2. There is no scintigraphic evidence for inducible ischemia. 3. There is a moderate (10-20%) fixed perfusion defect in the RCA territory. 4. Left ventricle is normal in size. The left ventricle systolic function is moderately decreased. 5. This is an intermediate risk scan due to area of scar/ischemia. Gated Stress FBP LVEF % 40 Prior Study Comparison No prior nuclear cardiology exam available for comparison. Nuclear Med Report:1-Day Tc-Tetrofosmin Gated SPECT Myocardial Perfusion with Regadenoson Stress: Myocardial perfusion imaging was performed at rest 30 minutes following the IV injection of Tc-99m tetrofosmin. The patient received 0.4 mg of regadenoson, via rapid IV push, immediately followed by Tc-99m tetrofosmin IV. Gated post stress tomographic imaging was performed 30 to 60 minutes later. See administered doses below. [facility] Date of service: 09/22/2021 1:08:16 PM Ordering Physician: DEANNE CARRASCO. Requesting Physician: Indication: SOB Interpreting physician: Nito Cadena MD Height: 180.34 cm BSA: 2.21 m Weight: 97.07 kg BMI: 29.8 kg/m Exam Type: Rest Stress Radiopharm: Tc-99m Tetrofosmin Tc-99m Tetrofosmin Dosage(mCi): 13.3 33.1 Stress Agent: Regadenoson 0.4mg Supply provided from [facility] Resting Blood Press: 106/74 mmHg Image Quality The overall study imaging quality was deemed to be good. FINDINGS: Left Ventricle Wall Motion: Stress IR:3D - Gated Stress FBP - The basal inferolateral segment and basal inferior segment are akinetic. The mid inferolateral segment and mid inferior segment are hypokinetic. All remaining scored segments are normal. Gated Stress FBP Gated Stress FBP LVEF: 40 % ED Volume: 73 ml ES Volume: 44 ml Perfusion Findings Stress IR:3D - Summed Score=8 There is a moderate perfusion defect in the inferior wall and posterior wall. All remaining scored segments show normal perfusion. Stress IR:3D Summed Score=8 LEFT VENTRICLE The left ventricle is normal in size. Left ventricular systolic function is moderately decreased. Stress Test Findings: There is no scintigraphic evidence for inducible ischemia. Final Stress ECG Report: [facility] Date of service: 09/22/2021 1:08:16 PM Ordering physician: DEANNE CARRASCO phlebotomy specialist: Edith Silva RN Interpreting physician: Priscilla Salas MD Patient name: MR. JUSTIN BARONE Age: 71 years Gender: M Height: 180.34 cm BSA: 2.21 m Weight: 97.07 kg BMI: 29.8 kg/m Indication: Shortness of breath Stress ECG Conclusion: Conclusion: Normal Comments: NEGATIVE REGADENOSON STRESS TEST BY ECG AND SYMPTOM CRITERIA PLEASE REFER TO NUCLEAR IMAGING PORTION OF STUDY Prior exam comparison: No prior CC exam Stress ECG Summary: The patient's resting heart rate was 99 bpm and blood pressure was 106/74 mmHg. The test was terminated due to end of protocol. No symptoms provoked during stress. The maximum heart rate was 108 bpm, which is 73% of the predicted heart rate for age. Peak blood pressure was 90/50 mmHg. The double product achieved was 9720. Medications: Last Used LOSARTAN Days INSULIN Days METOPROLOL Days ATORVASTATIN Days ASPIRIN Days Resting ECG: Normal Sinus Rhythm, Occasional PVCs (3-7/Min) and Anterior & Inferior Wall MS Symptoms at rest: No symptoms Pharamcologic Protocol: Regadenoson Stress Exercise Table: +-----+---+---+---+ Stage HR SYS TEE +-----+---+---+---+ 1 98 +-----+---+---+---+ 2 100 102 62 +-----+- (more content not included)... [facility]_DO_NOT _USE_DIVIS ION OF RADIOLOGY Provider, [facility] [place] - 09/22/2021 * * *Final Report* * * DATE OF EXAM: Sep 22 2021 3:01PM STN 0006 - NM CARDIAC PERF STRESS/PHARM / PROCEDURE REASON: Encounter for screening for cardiovascular disorders * * * * Physician Interpretation * * * * Stress Economic Analysis Director Report: [facility] Date of service: 09/22/2021 1:08:16 PM Supervising physician: Priscilla Salas MD PATIENT: Name: MR. JUSTIN BARONE Age: 71 years Gender: M The supervising physician was in the department and immediately available. Final PATIENT: Name: MR. JUSTIN BARONE Age: 71 years Gender: M CONCLUSIONS: 1. SPECT Perfusion Study: Abnormal. 2. There is no scintigraphic evidence for inducible ischemia. 3. There is a moderate (10-20%) fixed perfusion defect in the RCA territory. 4. Left ventricle is normal in size. The left ventricle systolic function is moderately decreased. 5. This is an intermediate risk scan due to area of scar/ischemia. Gated Stress FBP LVEF % 40 Prior Study Comparison No prior nuclear cardiology exam available for comparison. Nuclear Med Report:1-Day Tc-Tetrofosmin Gated SPECT Myocardial Perfusion with Regadenoson Stress: Myocardial perfusion imaging was performed at rest 30 minutes following the IV injection of Tc-99m tetrofosmin. The patient received 0.4 mg of regadenoson, via rapid IV push, immediately followed by Tc-99m tetrofosmin IV. Gated post stress tomographic imaging was performed 30 to 60 minutes later. See administered doses below. [facility] Date of service: 09/22/2021 1:08:16 PM Ordering Physician: DEANNE CARRASCO. Requesting Physician: Indication: SOB Interpreting physician: Nito Cadena MD Height: 180.34 cm BSA: 2.21 m Weight: 97.07 kg BMI: 29.8 kg/m Exam Type: Rest Stress Radiopharm: Tc-99m Tetrofosmin Tc-99m Tetrofosmin Dosage(mCi): 13.3 33.1 Stress Agent: Regadenoson 0.4mg Supply provided from [facility] Resting Blood Press: 106/74 mmHg Image Quality The overall study imaging quality was deemed to be good. FINDINGS: Left Ventricle Wall Motion: Stress IR:3D - Gated Stress FBP - The basal inferolateral segment and basal inferior segment are akinetic. The mid inferolateral segment and mid inferior segment are hypokinetic. All remaining scored segments are normal. Gated Stress FBP Gated Stress FBP LVEF: 40 % ED Volume: 73 ml ES Volume: 44 ml Perfusion Findings Stress IR:3D - Summed Score=8 There is a moderate perfusion defect in the inferior wall and posterior wall. All remaining scored segments show normal perfusion. Stress IR:3D Summed Score=8 LEFT VENTRICLE The left ventricle is normal in size. Left ventricular systolic function is moderately decreased. Stress Test Findings: There is no scintigraphic evidence for inducible ischemia. Final Stress ECG Report: [facility] Date of service: 09/22/2021 1:08:16 PM Ordering physician: DEANNE CARRASCO phlebotomy specialist: Edith Silva RN Interpreting physician: Priscilla Salas MD Patient name: MR. JUSTIN BARONE Age: 71 years Gender: M Height: 180.34 cm BSA: 2.21 m Weight: 97.07 kg BMI: 29.8 kg/m Indication: Shortness of breath Stress ECG Conclusion: Conclusion: Normal Comments: NEGATIVE REGADENOSON STRESS TEST BY ECG AND SYMPTOM CRITERIA PLEASE REFER TO NUCLEAR IMAGING PORTION OF STUDY Prior exam comparison: No prior CC exam Stress ECG Summary: The patient's resting heart rate was 99 bpm and blood pressure was 106/74 mmHg. The test was terminated due to end of protocol. No symptoms provoked during stress. The maximum heart rate was 108 bpm, which is 73% of the predicted heart rate for age. Peak blood pressure was 90/50 mmHg. The double product achieved was 9720. Medications: Last Used LOSARTAN Days INSULIN Days METOPROLOL Days ATORVASTATIN Days ASPIRIN Days Resting ECG: Normal Sinus Rhythm, Occasional PVCs (3-7/Min) and Anterior & Inferior Wall MS Symptoms at rest: No symptoms Pharamcologic Protocol: Regadenoson Stress Exercise Table: +-----+---+---+---+ Stage HR SYS TEE +-----+---+---+---+ 1 98 +-----+---+---+---+ 2 100 102 62 +-----+---+---+---+ 3 108 90 50 +-----+---+---+---+ 4 100 98 64 +-----+---+---+---+ +-----+---+---+---+ HR SYS TEE +-----+---+---+---+ Final 108 90 50 +-----+--- (more content not included)... [facility] Radiology Study observation (narrative) [facility] Heart Perfusion W stress and W radionuclide IVOrdered By: [facility] Provider on 09-22-2021 [facility] XR Lumbar spine AP and Later debora 09-21-2020 IMPRESSION: Advanced lumbar spine degenerative changes. Overall findings unchanged. Research Dietitian: PSCB Transcribe Date/Time: Sep 21 2020 1:02P Dictated by : DORIE PIERSON MD This examination was interpreted and the report reviewed and electronically signed by: DORIE PIERSON MD on Sep 21 2020 1:13PM [facility] DIVISION OF RADIOLOGY * * *Final Report* * * DATE OF EXAM: Sep 20 2020 4:20PM STX 5229 - XR LUMBAR 2V AP/LAT / PROCEDURE REASON: Long-term current use of opiate analgesic * * * * Physician Interpretation * * * * EXAM TITLE: XR LUMBAR 2V AP/LAT EXAM DATE/TIME: 09/20/2020 4:20 PM COMPARISON: X-ray lumbar on 05/29/2013. CLINICAL INDICATION/HISTORY: Back pain. TECHNIQUE: AP, lateral and cone down lateral views of the lumbar spine are presented. FINDINGS: There are five dnn-wwk-klknwhk lumbar vertebrae. No acute fractures demonstrated. Grade 2 L5 on S1 anterolisthesis is again demonstrated. There is L5-S1 disc space narrowing. There is mild to moderate osteophyte formation, with extensive facet arthrosis. Kissing spine visualized on lateral view. DIVISION [facility]OLOGY [facility] * * *Final Report* * * DATE OF EXAM: Sep 20 2020 4:20PM STX 5229 - XR LUMBAR 2V AP/LAT / PROCEDURE REASON: Long-term current use of opiate analgesic * * * * Physician Interpretation * * * * EXAM TITLE: XR LUMBAR 2V AP/LAT EXAM DATE/TIME: 09/20/2020 4:20 PM COMPARISON: X-ray lumbar on 05/29/2013. CLINICAL INDICATION/HISTORY: Back pain. TECHNIQUE: AP, lateral and cone down lateral views of the lumbar spine are presented. FINDINGS: There are five rzx-weu-dbrgjhg lumbar vertebrae. No acute fractures demonstrated. Grade 2 L5 on S1 anterolisthesis is again demonstrated. There is L5-S1 disc space narrowing. There is mild to moderate osteophyte formation, with extensive facet arthrosis. Kissing spine visualized on lateral view. IMPRESSION IMPRESSION: Advanced lumbar spine degenerative changes. Overall findings unchanged. Research Dietitian: PSCB Transcribe Date/Time: Sep 21 2020 1:02P Dictated by : DORIE PIERSON MD This examination was interpreted and the report reviewed and electronically signed by: DORIE PIERSON MD on Sep 21 2020 1:13PM [facility] XR Lumbar spine AP and Later alOrdered By: [facility] Provider on 09-21-2020 [facility] XR Lumbar spine AP and Later debora 09-20-2020 Radiology Study observation (narrative) [facility] Vital Signs Date Time Vital Sign Value Performing Clinician Facility 04-11-2025 08:57-0400 SaO2% (BldA) [Mass fraction] 95 % [facility] Comment on above: Order Comment: Specimen Type: ARTERIAL B LOOD SPECIMENOrdering Facility: [facility] Address: [address] [place] [id number] Performed By: #### A LLBG ####[facility] RESPIRATORYCLIA [id number] [id number] [place] [id number] 04-02-2025 10:13-0400 SaO2% (BldA) [Mass fraction] 97 % [facility] Comment on above: Order Comment: Specimen Type: ARTERIAL B LOOD SPECIMENOrdering Facility: [facility] Address: [address] [place] [id number] Performed By: #### A LLBG ####[facility] RESPIRATORYCLIA [id number] [id number] [place] [id number] 02-20-2025 12:42-0400 Body mass index (BMI) [Ratio] 24.44 kg/m2 Norah Candelario MD Work Phone: [facility] 02-20-2025 12:42-0400 Body temperature 97.59 [degF] Norah Candelario MD Work Phone: [facility] 02-20-2025 12:42-0400 Body weight 77.25 kg Norah Candelario MD Work Phone: [facility] 02-20-2025 12:42-0400 Diastolic blood pressure 64 mm[Hg] Norah King Work Phone: [facility] 02-20-2025 12:42-0400 Heart rate 79 /min Norah Candelario MD Work Phone: [facility] 02-20-2025 12:42-0400 SaO2% (BldA) [Mass fraction] 98 % Norah Candelario MD Work Phone: [facility] 02-20-2025 12:42-0400 Systolic blood pressure 103 mm[Hg] Norah Candelario MD Work Phone: [facility] 02-17-2025 15:06-0400 Diastolic blood pressure 62 mm[Hg] Priscilla Salas MD Work Phone: [facility] 02-17-2025 15:06-0400 Heart rate 80 /min Priscilla Salas MD Work Phone: [facility] 02-17-2025 15:06-0400 SaO2% (BldA) [Mass fraction] 99 % Priscilla Salas MD Work Phone: [facility] 02-17-2025 15:06-0400 Systolic blood pressure 116 mm[Hg] Priscilla Salas MD Work Phone: [facility] 02-11-2025 11:31-0400 Body height 177.8 cm Samm Yamini DO Work Phone: [facility] 02-11-2025 11:31-0400 Body mass index (BMI) [Ratio] 23.96 kg/m2 Samm Yamini DO Work Phone: [facility] 02-11-2025 11:31-0400 Body weight 75.75 kg Samm Yamini DO Work Phone: [facility] 02-11-2025 11:31-0400 Diastolic blood pressure 77 mm[Hg] Samm Yamini DO Work Phone: [facility] 02-11-2025 11:31-0400 Heart rate 104 /min Samm Yamini DO Work Phone: [facility] 02-11-2025 11:31-0400 SaO2% (BldA) [Mass fraction] 98 % Samm Yamini DO Work Phone: [facility] 02-11-2025 11:31-0400 Systolic blood pressure 117 mm[Hg] Samm Yamini DO Work Phone: [facility] 02-10-2025 10:22-0400 Body mass index (BMI) [Ratio] 24.04 kg/m2 Gila Braxton MD Work Phone: [facility] 02-10-2025 10:22-0400 Body temperature 97.81 [degF] Gila Braxton MD Work Phone: [facility] 02-10-2025 10:22-0400 Body weight 76 kg Gila Braxton MD Work Phone: [facility] 02-10-2025 10:22-0400 Diastolic blood pressure 57 mm[Hg] Gila King Work Phone: [facility] 02-10-2025 10:22-0400 Heart rate 110 /min Gila Braxton MD Work Phone: [facility] 02-10-2025 10:22-0400 Respiratory rate 15 /min Gila Braxton MD Work Phone: [facility] 02-10-2025 10:22-0400 SaO2% (BldA) [Mass fraction] 97 % Gila Braxton MD Work Phone: [facility] 02-10-2025 10:22-0400 Systolic blood pressure 108 mm[Hg] Gila Braxton MD Work Phone: [facility] 02-08-2025 10:32-0400 PAIN LEVEL 0 {score} Beltr[facility] Asht[facility] 02-08-2025 08:33-0400 Body temperature 97.5 [degF] Beltran Bsannettea [facility] 02-08-2025 08:33-0400 Diastolic blood pressure 71 mm[Hg] [facility] B[facility]annette[facility] 02-08-2025 08:33-0400 Heart rate 73 /min [facility] Bshara [facility] 02-08-2025 08:33-0400 Oxygen saturation in Blood 97 % Beltran Bshara [facility] 02-08-2025 08:33-0400 Respiratory rate 16 /min [facility]shara [facility] 02-08-2025 08:33-0400 Systolic blood pressure 126 mm[Hg] Adriana [facility] 02-08-2025 01:01-0400 PAIN LEVEL 0 {score} [facility] Ashtyna [facility] 02-07-2025 21:37-0400 PAIN LEVEL 0 {score} Beltran Ashtyna Carrillo [facility] 02-07-2025 11:03-0400 PAIN LEVEL 0 {score} [facility] Remi [facility] 02-07-2025 09:18-0400 PAIN LEVEL 1 {score} [facility] 02-07-2025 09:02-0400 Body temperature 97.3 [degF] Adriana [facility] 02-07-2025 09:02-0400 Diastolic blood pressure 72 mm[Hg] Adriana Chamorroa [facility] 02-07-2025 09:02-0400 Heart rate 81 /min [facility] 02-07-2025 09:02-0400 Oxygen saturation in Blood 97 % Adriana Chamorroa Carrillo [facility] 02-07-2025 09:02-0400 Respiratory rate 17 /min [facility] 02-07-2025 09:02-0400 Systolic blood pressure 131 mm[Hg] Beltran Ashtyna [facility] 02-07-2025 00:58-0400 PAIN LEVEL 0 {score} [facility] Asht[facility] 02-06-2025 20:40-0400 PAIN LEVEL 0 {score} Beltran Ashtyna Carrillo [facility] 02-06-2025 12:59-0400 PAIN LEVEL 0 {score} Beltran Ashtyna Carrillo [facility] 02-06-2025 08:08-0400 PAIN LEVEL 0 {score} Beltran Bsannettea [facility] 02-06-2025 07:59-0400 Body temperature 97.5 [degF] Beltran Ashtyna Carrillo [facility] 02-06-2025 07:59-0400 Diastolic blood pressure 75 mm[Hg] Beltran Bsannettea [facility] 02-06-2025 07:59-0400 Heart rate 77 /min Beltran Ashtyna [facility] 02-06-2025 07:59-0400 Oxygen saturation in Blood 97 % Beltran Ashtyna [facility] 02-06-2025 07:59-0400 Respiratory rate 18 /min Beltran Ashtyna [facility] 02-06-2025 07:59-0400 Systolic blood pressure 124 mm[Hg] Beltran Ashtyna [facility] 02-06-2025 01:01-0400 PAIN LEVEL 0 {score} Beltran Ashtyna Carrillo [facility] 02-05-2025 21:25-0400 PAIN LEVEL 0 {score} Beltran Ashtyna Carrillo [facility] 02-05-2025 12:05-0400 PAIN LEVEL 0 {score} Beltran Ashtyna [facility] 02-05-2025 12:04-0400 Body temperature 97.2 [degF] Beltran Ashtyna Carrillo [facility] 02-05-2025 12:04-0400 Diastolic blood pressure 72 mm[Hg] Beltran Ashtyna [facility] 02-05-2025 12:04-0400 Heart rate 70 /min [facility] Asht[facility] 02-05-2025 12:04-0400 Oxygen saturation in Blood 97 % Beltr[facility] Ashtyna [facility] 02-05-2025 12:04-0400 Respiratory rate 18 /min Bel[facility] Ashtyna [facility] 02-05-2025 12:04-0400 Systolic blood pressure 122 mm[Hg] Beltran Ashtyna [facility] 02-05-2025 09:36-0400 PAIN LEVEL 0 {score} Bel[facility]an B[facility]annettea [facility] 02-05-2025 09:34-0400 PAIN LEVEL 0 {score} Beltran Bsannettea [facility] 02-04-2025 23:29-0400 PAIN LEVEL 0 {score} Beltran Bsannettea [facility] 02-04-2025 17:52-0400 PAIN LEVEL 0 {score} Bel[facility] B[facility]annette[facility] 02-04-2025 11:24-0400 PAIN LEVEL 0 {score} Beltran Bsannettea [facility] 02-04-2025 08:39-0400 PAIN LEVEL 0 {score} Beltran Bsannettea [facility] 02-04-2025 08:38-0400 PAIN LEVEL 0 {score} [facility] Bshara [facility] 02-04-2025 08:07-0400 Body temperature 97.5 [degF] Beltran Bsannettea [facility] 02-04-2025 08:07-0400 Diastolic blood pressure 79 mm[Hg] Beltran Bsannettea [facility] 02-04-2025 08:07-0400 Heart rate 72 /min Beltran Bsannettea [facility] 02-04-2025 08:07-0400 Oxygen saturation in Blood 97 % Beltran Bshara [facility] 02-04-2025 08:07-0400 Respiratory rate 16 /min [facility] Bshara [facility] 02-04-2025 08:07-0400 Systolic blood pressure 136 mm[Hg] Beltran Bshara [facility] 02-03-2025 22:53-0400 PAIN LEVEL 0 {score} [facility] Bshara [facility] 02-03-2025 21:58-0400 Body temperature 98.3 [degF] Beltran Bsannettea [facility] 02-03-2025 21:58-0400 Diastolic blood pressure 82 mm[Hg] Beltran Bsannettea [facility] 02-03-2025 21:58-0400 Heart rate 76 /min Beltran Bshara Carrillo [facility] 02-03-2025 21:58-0400 Oxygen saturation in Blood 97 % [facility] Bshara [facility] 02-03-2025 21:58-0400 Respiratory rate 16 /min [facility] Bsh[facility] 02-03-2025 21:58-0400 Systolic blood pressure 131 mm[Hg] Bel[facility]an Bshara [facility] 02-03-2025 21:34-0400 PAIN LEVEL 0 {score} [facility] Bsh[facility] 02-03-2025 09:27-0400 PAIN LEVEL 0 {score} [facility] 02-03-2025 09:26-0400 PAIN LEVEL 0 {score} Beltran Bsannettea Carr[facility] 02-03-2025 08:28-0400 Body temperature 97.3 [degF] Beltran Bshara Carrillo [facility] 02-03-2025 08:28-0400 Diastolic blood pressure 75 mm[Hg] [facility]an Bshara [facility] 02-03-2025 08:28-0400 Heart rate 72 /min Beltran Bsannettea Carrillo [facility] 02-03-2025 08:28-0400 Oxygen saturation in Blood 97 % Beltran Bsannettea Carrillo [facility] 02-03-2025 08:28-0400 Respiratory rate 18 /min Beltran Bsannettea [facility] 02-03-2025 08:28-0400 Systolic blood pressure 126 mm[Hg] Beltran Bsannettea [facility] 02-03-2025 01:51-0400 Body temperature 97.8 [degF] Beltran Bsannettea [facility] 02-03-2025 01:51-0400 Diastolic blood pressure 72 mm[Hg] Beltran Bshara [facility] 02-03-2025 01:51-0400 Heart rate 80 /min Beltran Bshara Carrillo [facility] 02-03-2025 01:51-0400 Oxygen saturation in Blood 96 % Beltran Bshara Carrillo [facility] 02-03-2025 01:51-0400 Respiratory rate 16 /min Beltran Bshara Carrillo [facility] 02-03-2025 01:51-0400 Systolic blood pressure 125 mm[Hg] Beltran Bshara Carr[facility] 02-03-2025 00:37-0400 PAIN LEVEL 0 {score} [facility] 02-02-2025 21:21-0400 PAIN LEVEL 0 {score} [facility]an B[facility]ann[facility] 02-02-2025 12:30-0400 PAIN LEVEL 0 {score} Beltran Bsannettea Carrillo [facility] 02-02-2025 08:11-0400 PAIN LEVEL 0 {score} Beltran Ashtyna Carrillo [facility] 02-02-2025 08:10-0400 PAIN LEVEL 0 {score} Beltran Ashtyna Carr[facility] 02-02-2025 07:49-0400 Body temperature 96.8 [degF] Beltran Ashtyna [facility] 02-02-2025 07:49-0400 Diastolic blood pressure 73 mm[Hg] Beltran Ashtyna [facility] 02-02-2025 07:49-0400 Heart rate 69 /min Beltran Ashtyna [facility] 02-02-2025 07:49-0400 Oxygen saturation in Blood 97 % Beltran Ashtyna Carrillo [facility] 02-02-2025 07:49-0400 Respiratory rate 18 /min Beltran Ashtyna Carrillo [facility] 02-02-2025 07:49-0400 Systolic blood pressure 129 mm[Hg] Beltran Ashtyna Carrillo [facility] 02-02-2025 02:01-0400 PAIN LEVEL 0 {score} [facility] B[facility]ann[facility] 02-01-2025 21:32-0400 PAIN LEVEL 0 {score} [facility] Bsdebbie [facility] 02-01-2025 18:45-0400 Body temperature 97.2 [degF] Beltran Ashtyna [facility] 02-01-2025 18:45-0400 Diastolic blood pressure 72 mm[Hg] Beltran Bshara [facility] 02-01-2025 18:45-0400 Heart rate 72 /min [facility] Bsannettea Carrillo [facility] 02-01-2025 18:45-0400 Oxygen saturation in Blood 97 % [facility] Ashtyna [facility] 02-01-2025 18:45-0400 Respiratory rate 18 /min [facility] Ashtyna [facility] 02-01-2025 18:45-0400 Systolic blood pressure 124 mm[Hg] [facility] Bsannettea Carrillo [facility] 02-01-2025 14:21-0400 Body temperature 97.3 [degF] [facility] Ashtyna [facility]illo [facility] 02-01-2025 14:21-0400 Diastolic blood pressure 72 mm[Hg] [facility] Ashtyna Ely [facility] 02-01-2025 14:21-0400 Heart rate 78 /min [facility] Ashtyna Carrillo [facility] 02-01-2025 14:21-0400 Oxygen saturation in Blood 96 % [facility] Bsannettea Carrillo [facility] 02-01-2025 14:21-0400 Respiratory rate 17 /min [facility] Ashtyna [facility] 02-01-2025 14:21-0400 Systolic blood pressure 128 mm[Hg] [facility] Ashtyna [facility] 02-01-2025 14:21-0400 PAIN LEVEL 0 {score} [facility] Bsannettea [facility]illo [facility] 02-01-2025 08:20-0400 PAIN LEVEL 0 {score} [facility] 02-01-2025 08:18-0400 PAIN LEVEL 0 {score} [facility] 01-31-2025 22:41-0400 PAIN LEVEL 0 {score} [facility] Ashtyna Carrillo [facility] 01-31-2025 20:58-0400 PAIN LEVEL 0 {score} [facility] Ashtyna [facility]illo [facility] 01-31-2025 15:22-0400 Body temperature 97.3 [degF] [facility] Ashtyna Carrillo [facility] 01-31-2025 15:22-0400 Diastolic blood pressure 60 mm[Hg] [facility] Ashtyna Ely [facility] 01-31-2025 15:22-0400 Heart rate 72 /min [facility] Ashtyna Carrillo [facility] 01-31-2025 15:22-0400 Oxygen saturation in Blood 97 % [facility] Ashtyna Carrillo [facility] 01-31-2025 15:22-0400 Respiratory rate 16 /min [facility] Ashtyna Carrillo [facility] 01-31-2025 15:22-0400 Systolic blood pressure 124 mm[Hg] [facility] Asht[facility] 01-31-2025 12:24-0400 PAIN LEVEL 0 {score} [facility] Asht[facility] 01-31-2025 08:19-0400 PAIN LEVEL 0 {score} [facility]ht[facility] 01-31-2025 08:17-0400 PAIN LEVEL 0 {score} [facility] Bsannettea Carrillo [facility] 01-30-2025 23:29-0400 PAIN LEVEL 0 {score} [facility] Bsannettea Carrillo [facility] 01-30-2025 23:04-0400 Body temperature 97.2 [degF] [facility] Bsannettea Carrillo [facility]a 01-30-2025 23:04-0400 Diastolic blood pressure 76 mm[Hg] [facility] Bshara Ely [facility]ison 01-30-2025 23:04-0400 Heart rate 78 /min [facility] Bsannettea Carrillo [facility] 01-30-2025 23:04-0400 Oxygen saturation in Blood 97 % [facility] Bsannettea Carrillo [facility] 01-30-2025 23:04-0400 Respiratory rate 16 /min [facility] Bsannettea Carrillo [facility] 01-30-2025 23:04-0400 Systolic blood pressure 122 mm[Hg] [facility]tran Bsannettea Carrillo [facility] 01-30-2025 21:52-0400 Body temperature 97.8 [degF] [facility] Ashtyna Carrillo [facility] 01-30-2025 21:52-0400 Diastolic blood pressure 77 mm[Hg] [facility] Bsannettea Ely [facility]ison 01-30-2025 21:52-0400 Heart rate 84 /min [facility] Bsannettea Carrillo [facility] 01-30-2025 21:52-0400 Oxygen saturation in Blood 96 % [facility] Bsannettea Carrillo [facility] 01-30-2025 21:52-0400 Respiratory rate 17 /min [facility] Bsannettea Carrillo [facility] 01-30-2025 21:52-0400 Systolic blood pressure 138 mm[Hg] [facility] Ashtyna Carrillo [facility] 01-30-2025 21:36-0400 PAIN LEVEL 0 {score} [facility] Ashtyna Carrillo [facility] 01-30-2025 08:52-0400 Body temperature 97.5 [degF] [facility] Ashtyna Carrillo [facility] 01-30-2025 08:52-0400 Diastolic blood pressure 79 mm[Hg] [facility] Ashtyna Ely [facility] 01-30-2025 08:52-0400 Heart rate 72 /min Bletran Ashtyna Carrillo [facility] 01-30-2025 08:52-0400 Oxygen saturation in Blood 97 % Adriana Hutchison 01-30-2025 08:52-0400 Respiratory rate 16 /min Beltrangriselda Hutchison 01-30-2025 08:52-0400 Systolic blood pressure 134 mm[Hg] [facility] Ashtyna Carrillo [facility] 01-30-2025 08:10-0400 PAIN LEVEL 0 {score} [facility] Ashtyna Carrillo [facility] 01-30-2025 07:17-0400 PAIN LEVEL 0 {score} [facility] Ashtyna Carrillo [facility] 01-30-2025 00:18-0400 PAIN LEVEL 0 {score} [facility] Ashtyna Carrillo [facility] 01-29-2025 18:04-0400 PAIN LEVEL 0 {score} [facility] Ashtyna [facility] 01-29-2025 15:32-0400 PAIN LEVEL 0 {score} [facility] Ashtyna Carrillo [facility] 01-29-2025 10:06-0400 Body temperature 96.8 [degF] [facility] Ashtyna Carrillo [facility] 01-29-2025 09:32-0400 Body temperature 97.5 [degF] [facility] Ashtyna Carrillo [facility] 01-29-2025 09:32-0400 Diastolic blood pressure 81 mm[Hg] [facility]tran Ashtyna Ely [facility]ison 01-29-2025 09:32-0400 Heart rate 82 /min [facility]tr[facility] Ashtyna Carrillo [facility] 01-29-2025 09:32-0400 Oxygen saturation in Blood 97 % [facility] Remi [facility]ison 01-29-2025 09:32-0400 Respiratory rate 16 /min Beltrangriselda Hutchison 01-29-2025 09:32-0400 Systolic blood pressure 142 mm[Hg] [facility]tr[facility] Ashtyna Carrillo [facility] 01-29-2025 08:32-0400 PAIN LEVEL 0 {score} [facility] Ashtyna Carrillo [facility] 01-29-2025 05:48-0400 Body temperature 97.8 [degF] [facility] Remi [facility] 01-29-2025 00:40-0400 PAIN LEVEL 0 {score} [facility] Ashtyna Carrillo [facility] 01-28-2025 22:19-0400 Body temperature 98.3 [degF] [facility] Ashtyna Carrillo [facility] 01-28-2025 22:19-0400 Diastolic blood pressure 84 mm[Hg] [facility]tr[facility] Ashtyna Ely [facility]ison 01-28-2025 22:19-0400 Heart rate 82 /min [facility] Remi [facility] 01-28-2025 22:19-0400 Oxygen saturation in Blood 98 % [facility] Remi [facility] 01-28-2025 22:19-0400 Respiratory rate 18 /min [facility] Ashtyna Carrillo [facility] 01-28-2025 22:19-0400 Systolic blood pressure 140 mm[Hg] [facility] Ashtyna Carrillo [facility] 01-28-2025 21:54-0400 Body temperature 98.3 [degF] [facility] eRmi [facility]ison 01-28-2025 17:50-0400 PAIN LEVEL 0 {score} [facility] Remi [facility] 01-28-2025 13:27-0400 Oxygen saturation in Blood 93 % Adriana Hutchison 01-28-2025 13:27-0400 Respiratory rate 16 /min [facility] Remi [facility] 01-28-2025 13:25-0400 Diastolic blood pressure 78 mm[Hg] [facility]tr[facility] Ashtyna Ely [facility] 01-28-2025 13:25-0400 Heart rate 78 /min [facility] Remi [facility] 01-28-2025 13:25-0400 Systolic blood pressure 132 mm[Hg] [facility] Ashtyna Carrillo [facility] 01-28-2025 13:24-0400 Body height 180.34 cm [facility]tran Ashtyna Carrillo [facility] 01-28-2025 13:24-0400 Body temperature 97.2 [degF] [facility] Remi [facility] 01-28-2025 13:22-0400 Body weight 85.28 kg [facility] Remi [facility] 01-24-2025 13:00-0400 SaO2% (BldA) [Mass fraction] 99 % [facility] Comment on above: Order Comment: Specimen Type: ARTERIAL B LOOD SPECIMENOrdering Facility: [facility] Address: [address] [place] [address] Performed By: #### A LLBG ####JAVIER RESPIRATORYCLIA [id number] [id number] [place] [id number] 01-06-2025 13:02-0400 Body mass index (BMI) [Ratio] 26.1 kg/m2 July Pierce MD Work Phone: [facility] 01-06-2025 13:02-0400 Body temperature 97.9 [degF] July Pierce MD Work Phone: [facility] 01-06-2025 13:02-0400 Body weight 82.5 kg July Pierce MD Work Phone: [facility] 01-06-2025 13:02-0400 Diastolic blood pressure 68 mm[Hg] July degroot MD Work Phone: [facility] 01-06-2025 13:02-0400 Heart rate 107 /min July Pierce MD Work Phone: [facility] 01-06-2025 13:02-0400 Respiratory rate 16 /min July Pierce MD Work Phone: [facility] 01-06-2025 13:02-0400 SaO2% (BldA) [Mass fraction] 98 % July Pierce MD Work Phone: [facility] 01-06-2025 13:02-0400 Systolic blood pressure 106 mm[Hg] July Pierce MD Work Phone: [facility] 12-29-2024 08:41-0400 Body height 177.8 cm Pola Garcia MD Work Phone: [facility] 12-29-2024 08:41-0400 Body mass index (BMI) [Ratio] 26.4 kg/m2 Pola Garcia MD Work Phone: [facility] 12-29-2024 08:41-0400 Body weight 83.46 kg Pola Garcia MD Work Phone: [facility] 12-29-2024 08:41-0400 Diastolic blood pressure 57 mm[Hg] Pola rowell MD Work Phone: [facility] 12-29-2024 08:41-0400 Heart rate 104 /min Pola Garcia MD Work Phone: [facility] 12-29-2024 08:41-0400 SaO2% (BldA) [Mass fraction] 100 % Pola Gacria MD Work Phone: [facility] 12-29-2024 08:41-0400 Systolic blood pressure 91 mm[Hg] Pola Garcia MD Work Phone: [facility] 12-23-2024 13:01-0400 Body mass index (BMI) [Ratio] 27.55 kg/m2 July Pierce MD Work Phone: [facility] 12-23-2024 13:01-0400 Body temperature 98.29 [degF] July Pierce MD Work Phone: [facility] 12-23-2024 13:01-0400 Body weight 87.1 kg July Pierce MD Work Phone: [facility] 12-23-2024 13:01-0400 Diastolic blood pressure 75 mm[Hg] July degroot MD Work Phone: [facility] 12-23-2024 13:01-0400 Heart rate 105 /min July Pierce MD Work Phone: [facility] 12-23-2024 13:01-0400 Respiratory rate 16 /min July Pierce MD Work Phone: [facility] 12-23-2024 13:01-0400 SaO2% (BldA) [Mass fraction] 99 % July Pierce MD Work Phone: [facility] 12-23-2024 13:01-0400 Systolic blood pressure 118 mm[Hg] July Pierce MD Work Phone: [facility] 11-26-2024 14:59-0400 Body height 177.8 cm Sedrick Roberts MD Work Phone: [facility] 11-26-2024 14:59-0400 Body mass index (BMI) [Ratio] 28.91 kg/m2 Sedrick Roberts MD Work Phone: [facility] 11-26-2024 14:59-0400 Body weight 91.4 kg Sedrick Roberts MD Work Phone: [facility] 11-26-2024 14:59-0400 Diastolic blood pressure 72 mm[Hg] Sedrick Roberts MD Work Phone: [facility] 11-26-2024 14:59-0400 Heart rate 100 /min Sedrick Roberts MD Work Phone: [facility] 11-26-2024 14:59-0400 Respiratory rate 16 /min Sedrick Roberts MD Work Phone: [facility] 11-26-2024 14:59-0400 SaO2% (BldA) [Mass fraction] 99 % Sedrick Roberts MD Work Phone: [facility] 11-26-2024 14:59-0400 Systolic blood pressure 115 mm[Hg] Sedrick Roberts MD Work Phone: [facility] 09-10-2024 14:26-0400 Body height 177.8 cm Manda Velasquez DO Work Phone: [facility] 09-10-2024 14:26-0400 Body mass index (BMI) [Ratio] 29.57 kg/m2 Manda Walshi DO Work Phone: [facility] 09-10-2024 14:26-0400 Body weight 93.49 kg Manda Finelli DO Work Phone: [facility] 09-10-2024 14:26-0400 Diastolic blood pressure 71 mm[Hg] Manda Finelli DO Work Phone: [facility] 09-10-2024 14:26-0400 Heart rate 89 /min Manda Finelli DO Work Phone: [facility] 09-10-2024 14:26-0400 SaO2% (BldA) [Mass fraction] 100 % Manda Finelli DO Work Phone: [facility] 09-10-2024 14:26-0400 Systolic blood pressure 108 mm[Hg] Manda Finelli DO Work Phone: [facility] 08-05-2024 08:38-0500 Body mass index (BMI) [Ratio] 29.83 kg/m2 Pola Garcia MD Work Phone: [facility] 08-05-2024 08:38-0500 Body weight 94.3 kg Pola Garcia MD Work Phone: [facility] 08-05-2024 08:38-0500 Diastolic blood pressure 74 mm[Hg] Pola rowell MD Work Phone: [facility] 08-05-2024 08:38-0500 Heart rate 86 /min Pola Garcia MD Work Phone: [facility] 08-05-2024 08:38-0500 Systolic blood pressure 135 mm[Hg] Pola Garcia MD Work Phone: [facility] 07-08-2024 11:08-0500 Body mass index (BMI) [Ratio] 28.27 kg/m2 Samm Yamini DO Work Phone: [facility] 07-08-2024 11:08-0500 Body weight 89.36 kg Samm Yamini DO Work Phone: [facility] 07-08-2024 11:08-0500 Diastolic blood pressure 75 mm[Hg] Samm Yamini DO Work Phone: [facility] 07-08-2024 11:08-0500 Heart rate 96 /min Samm Yamini DO Work Phone: [facility] 07-08-2024 11:08-0500 SaO2% (BldA) [Mass fraction] 100 % Samm Yamini DO Work Phone: [facility] 07-08-2024 11:08-0500 Systolic blood pressure 114 mm[Hg] Samm Yamini DO Work Phone: [facility] 05-29-2024 12:17-0500 Body temperature 97.5 [degF] Yusra Umbel DO Work Phone: [facility] 05-29-2024 12:17-0500 Diastolic blood pressure 74 mm[Hg] Yusra Umbel DO Work Phone: [facility] 05-29-2024 12:17-0500 Respiratory rate 14 /min Yusra Umbel DO Work Phone: [facility] 05-29-2024 12:17-0500 SaO2% (BldA) [Mass fraction] 99 % Yusra Umbel DO Work Phone: [facility] 05-29-2024 12:17-0500 Systolic blood pressure 115 mm[Hg] Yusra Childsel D O Work Phone: [facility] 05-29-2024 10:35-0500 Body height 177.8 cm Yusra Umbel DO Work Phone: [facility] 05-29-2024 10:35-0500 Body mass index (BMI) [Ratio] 29.27 kg/m2 Yusra Umbel DO Work Phone: [facility] 05-29-2024 10:35-0500 Body weight 92.53 kg Yusra Umbel DO Work Phone: [facility] 05-07-2024 17:49-0500 Body mass index (BMI) [Ratio] 29.29 kg/m2 Bruno Villatoro APRN.[employer] Work Phone: [facility] 05-07-2024 17:49-0500 Body temperature 97.81 [degF] Bruno Villatroo APRN.[employer] Work Phone: [facility] 05-07-2024 17:49-0500 Body weight 92.6 kg Bruno Villatoro APRN.[employer] Work Phone: [facility] 05-07-2024 17:49-0500 Diastolic blood pressure 81 mm[Hg] Bruno Villatoro APRN.[employer] Work Phone: [facility] 05-07-2024 17:49-0500 Heart rate 78 /min Bruno Villatoro APRN.[employer] Work Phone: [facility] 05-07-2024 17:49-0500 Respiratory rate 16 /min Bruno Villatoro APRN.[employer] Work Phone: [facility] 05-07-2024 17:49-0500 SaO2% (BldA) [Mass fraction] 99 % Bruno Villatoro APRN.[employer] Work Phone: [facility] 05-07-2024 17:49-0500 Systolic blood pressure 132 mm[Hg] Bruno Villatoro APRN.[employer] Work Phone: [facility] 05-02-2024 11:20-0500 Diastolic blood pressure 73 mm[Hg] Lesly Bender MD Work Phone: [facility] 05-02-2024 11:20-0500 Heart rate 72 /min Lesly Bender MD Work Phone: [facility] 05-02-2024 11:20-0500 Respiratory rate 14 /min Lesly Bender MD Work Phone: [facility] 05-02-2024 11:20-0500 SaO2% (BldA) [Mass fraction] 99 % Lesly Bender MD Work Phone: [facility] 05-02-2024 11:20-0500 Systolic blood pressure 142 mm[Hg] Lesly Bender MD Work Phone: [facility] 05-02-2024 10:28-0500 Body height 177.8 cm Lesly Bender MD Work Phone: [facility] 05-02-2024 10:28-0500 Body mass index (BMI) [Ratio] 28.12 kg/m2 Lesly Bender MD Work Phone: [facility] 05-02-2024 10:28-0500 Body weight 88.91 kg Lesly Bender MD Work Phone: [facility] 04-23-2024 13:47-0500 Body mass index (BMI) [Ratio] 27.84 kg/m2 Samm Yamini DO Work Phone: [facility] 04-23-2024 13:47-0500 Body weight 88.91 kg Samm Yamini DO Work Phone: [facility] 04-23-2024 13:47-0500 Diastolic blood pressure 60 mm[Hg] Samm Yamini DO Work Phone: [facility] 04-23-2024 13:47-0500 Heart rate 77 /min Samm Yamini DO Work Phone: [facility] 04-23-2024 13:47-0500 SaO2% (BldA) [Mass fraction] 99 % Samm Yamini DO Work Phone: [facility] 04-23-2024 13:47-0500 Systolic blood pressure 112 mm[Hg] Samm Yamini DO Work Phone: [facility] 03-19-2024 14:30-0400 Body mass index (BMI) [Ratio] 29.09 kg/m2 Sunshine Duckworth APRN.[employer] Work Phone: [facility] 03-19-2024 14:30-0400 Body weight 92.9 kg Sunshine Duckworth APRN.CNP Work Phone: [facility] 03-19-2024 14:30-0400 Diastolic blood pressure 60 mm[Hg] Sunshine Duckworth [employer] Work Phone: [facility] 03-19-2024 14:30-0400 Heart rate 76 /min Sunshine Duckworth [employer] Work Phone: [facility] 03-19-2024 14:30-0400 Systolic blood pressure 120 mm[Hg] Sunshine Duckworth [employer] Work Phone: [facility] 03-17-2024 13:22-0400 Diastolic blood pressure 67 mm[Hg] Jatin Garrett MD Work Phone: [facility] 03-17-2024 13:22-0400 Heart rate 68 /min Jatin Garrett MD Work Phone: [facility] 03-17-2024 13:22-0400 Systolic blood pressure 132 mm[Hg] Jatin Garrett MD Work Phone: [facility] 02-08-2024 11:18-0400 Body mass index (BMI) [Ratio] 28.5 kg/m2 Sammi Velarde [employer] Work Phone: [facility] 02-08-2024 11:18-0400 Body weight 91 kg Sammi Velarde [employer] Work Phone: [facility] 02-08-2024 11:18-0400 Diastolic blood pressure 67 mm[Hg] Sammi garcia [employer] Work Phone: [facility] 02-08-2024 11:18-0400 Heart rate 81 /min Sammi Velarde [employer] Work Phone: [facility] 02-08-2024 11:18-0400 Systolic blood pressure 125 mm[Hg] Sammi Velarde [employer] Work Phone: [facility] 01-09-2024 14:52-0400 Body mass index (BMI) [Ratio] 28.84 kg/m2 Sedrick Roberts MD Work Phone: [facility] 01-09-2024 14:52-0400 Body weight 92.1 kg Sedrick Roberts MD Work Phone: [facility] 01-09-2024 14:52-0400 Diastolic blood pressure 83 mm[Hg] Sedrick Roberts MD Work Phone: [facility] 01-09-2024 14:52-0400 Heart rate 81 /min Sedrick Roberts MD Work Phone: [facility] 01-09-2024 14:52-0400 SaO2% (BldA) [Mass fraction] 98 % Sedrick Roberts MD Work Phone: [facility] 01-09-2024 14:52-0400 Systolic blood pressure 140 mm[Hg] Sedrick Roberts MD Work Phone: [facility] 01-04-2024 15:18-0400 Body mass index (BMI) [Ratio] 28.9 kg/m2 Toni Duran APRN.[employer] Work Phone: [facility] 01-04-2024 15:18-0400 Body temperature 98.1 [degF] Toni Duran APRN.[employer] Work Phone: [facility] 01-04-2024 15:18-0400 Body weight 92.3 kg Toni Duran APRN.[employer] Work Phone: [facility] 01-04-2024 15:18-0400 Diastolic blood pressure 74 mm[Hg] Toni Duran APRN.[employer] Work Phone: [facility] 01-04-2024 15:18-0400 Heart rate 76 /min Toni Duran APRN.[employer] Work Phone: [facility] 01-04-2024 15:18-0400 SaO2% (BldA) [Mass fraction] 100 % Toni Duran APRN.[employer] Work Phone: [facility] 01-04-2024 15:18-0400 Systolic blood pressure 124 mm[Hg] Toni Duran APRN.[employer] Work Phone: [facility] 12-26-2023 07:54-0400 Diastolic blood pressure 72 mm[Hg] Sammi Lock MD Work Phone: [facility] 12-26-2023 07:54-0400 Heart rate 83 /min Sammi Mccrary MD Work Phone: [facility] 12-26-2023 07:54-0400 Systolic blood pressure 128 mm[Hg] Sammi Crook MD Work Phone: [facility] 12-17-2023 15:47-0400 Body mass index (BMI) [Ratio] 30.4 kg/m2 Camille Drouhard [employer] Work Phone: [facility] 12-17-2023 15:47-0400 Body temperature 98.01 [degF] Camille Drouhard [employer] Work Phone: [facility] 12-17-2023 15:47-0400 Body weight 97.07 kg Camille Drouhard [employer] Work Phone: [facility] 12-17-2023 15:47-0400 Diastolic blood pressure 80 mm[Hg] Camille Drouhard [employer] Work Phone: [facility] 12-17-2023 15:47-0400 Heart rate 67 /min Camille Drouhard [employer] Work Phone: [facility] 12-17-2023 15:47-0400 Respiratory rate 16 /min Camille Drouhard [employer] Work Phone: [facility] 12-17-2023 15:47-0400 SaO2% (BldA) [Mass fraction] 99 % Camille Drouhard [employer] Work Phone: [facility] 12-17-2023 15:47-0400 Systolic blood pressure 134 mm[Hg] Camille Drouhard [employer] Work Phone: [facility] 11-08-2023 10:52-0400 Body mass index (BMI) [Ratio] 30.41 kg/m2 Taiwo Lee MD Work Phone: [facility] 11-08-2023 10:52-0400 Body weight 97.1 kg Taiwo Lee MD Work Phone: [facility] 11-08-2023 10:52-0400 Diastolic blood pressure 76 mm[Hg] Taiwo Lee MD Work Phone: [facility] 11-08-2023 10:52-0400 Heart rate 69 /min Taiwo Lee MD Work Phone: [facility] 11-08-2023 10:52-0400 Systolic blood pressure 131 mm[Hg] Taiwo Lee MD Work Phone: [facility] 08-09-2023 11:17-0500 Diastolic blood pressure 75 mm[Hg] Lise Corado MD, PhD Work Phone: [facility] 08-09-2023 11:17-0500 Respiratory rate 18 /min Lise Corado MD, PhD Work Phone: [facility] 08-09-2023 11:17-0500 SaO2% (BldA) [Mass fraction] 97 % Lise Corado MD, PhD Work Phone: [facility] 08-09-2023 11:17-0500 Systolic blood pressure 127 mm[Hg] Lise Corado MD, PhD Work Phone: [facility] 08-09-2023 10:45-0500 Heart rate 66 /min Lise Corado MD, PhD Work Phone: [facility] 08-09-2023 09:00-0500 Body temperature 97.2 [degF] Lise Corado MD, PhD Work Phone: [facility] 01-30-2023 12:30-0400 Body weight 107.14 kg Taiwo Lee MD Work Phone: [facility] 01-30-2023 12:30-0400 Diastolic blood pressure 79 mm[Hg] Taiwo Lee MD Work Phone: [facility] 01-30-2023 12:30-0400 Heart rate 79 /min Taiwo Lee MD Work Phone: [facility] 01-30-2023 12:30-0400 Systolic blood pressure 116 mm[Hg] Taiwo Lee MD Work Phone: [facility] 12-15-2022 13:16-0400 Body height 178.6 cm Priscilla Salas MD Work Phone: [facility] 12-15-2022 13:16-0400 Body weight 109.77 kg Priscilla Salas MD Work Phone: [facility] 12-15-2022 13:16-0400 Diastolic blood pressure 58 mm[Hg] Priscilla Salas MD Work Phone: [facility] 12-15-2022 13:16-0400 Heart rate 67 /min Priscilla Salas MD Work Phone: [facility] 12-15-2022 13:16-0400 Systolic blood pressure 116 mm[Hg] Priscilla Salas MD Work Phone: [facility] 09-22-2022 16:35-0400 Body height 180.3 cm Samm Yamini DO Work Phone: [facility] 09-22-2022 16:35-0400 Body weight 108.86 kg Samm Yamini DO Work Phone: [facility] 09-22-2022 16:35-0400 Diastolic blood pressure 68 mm[Hg] Samm Yamini DO Work Phone: [facility] 09-22-2022 16:35-0400 Heart rate 82 /min Samm Yamini DO Work Phone: [facility] 09-22-2022 16:35-0400 SaO2% (BldA) [Mass fraction] 95 % Samm Yamini DO Work Phone: [facility] 09-22-2022 16:35-0400 Systolic blood pressure 110 mm[Hg] Samm Yamini DO Work Phone: [facility] 08-02-2022 10:31-0500 Body height 180.3 cm Sedrick Roberts MD Work Phone: [facility] 08-02-2022 10:31-0500 Body weight 113.04 kg Sedrick Roberts MD Work Phone: [facility] 08-02-2022 10:31-0500 Diastolic blood pressure 85 mm[Hg] Sedrick Roberts MD Work Phone: [facility] 08-02-2022 10:31-0500 Heart rate 91 /min Sedrick Roberts MD Work Phone: [facility] 08-02-2022 10:31-0500 SaO2% (BldA) [Mass fraction] 98 % Sedrick Roberts MD Work Phone: [facility] 08-02-2022 10:31-0500 Systolic blood pressure 133 mm[Hg] Sedrick Roberts MD Work Phone: [facility] 04-12-2022 10:39-0400 Body height 180.3 cm Samm Yamini DO Work Phone: [facility] 04-12-2022 10:39-0400 Body weight 110.22 kg Samm Yamini DO Work Phone: [facility] 04-12-2022 10:39-0400 Diastolic blood pressure 74 mm[Hg] Samm Yamini DO Work Phone: [facility] 04-12-2022 10:39-0400 Heart rate 80 /min Samm Yamini DO Work Phone: [facility] 04-12-2022 10:39-0400 SaO2% (BldA) [Mass fraction] 98 % Samm Yamini DO Work Phone: [facility] 04-12-2022 10:39-0400 Systolic blood pressure 130 mm[Hg] Samm Yamini DO Work Phone: [facility] 01-30-2022 11:34-0400 Body height 180.3 cm Cornelio Persaud MD Work Phone: [facility] 01-30-2022 11:34-0400 Body weight 107.5 kg Cornelio Persaud MD Work Phone: [facility] 01-30-2022 11:34-0400 Diastolic blood pressure 80 mm[Hg] Cornelio Persaud MD Work Phone: [facility] 01-30-2022 11:34-0400 Heart rate 80 /min Cornelio Persaud MD Work Phone: [facility] 01-30-2022 11:34-0400 Systolic blood pressure 122 mm[Hg] Cornelio Persaud MD Work Phone: [facility] 12-21-2021 09:35-0400 Body weight 106.59 kg Sedrick Roberts MD Work Phone: [facility] 12-21-2021 09:35-0400 Diastolic blood pressure 66 mm[Hg] Sedrick Roberts MD Work Phone: [facility] 12-21-2021 09:35-0400 Heart rate 82 /min Sedrick Roberts MD Work Phone: [facility] 12-21-2021 09:35-0400 SaO2% (BldA) [Mass fraction] 96 % Sedrick Roberts MD Work Phone: [facility] 12-21-2021 09:35-0400 Systolic blood pressure 129 mm[Hg] Sedrick Roberts MD Work Phone: [facility] 11-11-2021 14:02-0400 Body height 177 cm Michael Arias DO Work Phone: [facility] 11-11-2021 14:02-0400 Body temperature 98.1 [degF] Michael Airas DO Work Phone: [facility] 11-11-2021 14:02-0400 Body weight 105.92 kg Michael Arias DO Work Phone: [facility] 11-11-2021 14:02-0400 Diastolic blood pressure 69 mm[Hg] Michael Chelsiei DO Work Phone: [facility] 11-11-2021 14:02-0400 Heart rate 88 /min Michael Masci DO Work Phone: [facility] 11-11-2021 14:02-0400 SaO2% (BldA) [Mass fraction] 96 % Michael Masci DO Work Phone: [facility] 11-11-2021 14:02-0400 Systolic blood pressure 124 mm[Hg] Michael Masci DO Work Phone: [facility] 10-25-2021 14:47-0400 Body height 180.3 cm Ramos Erwin MD Work Phone: [facility] 10-25-2021 14:47-0400 Body weight 103.42 kg Ramos Erwin MD Work Phone: [facility] 10-25-2021 14:47-0400 Diastolic blood pressure 69 mm[Hg] Ramos Erwin MD Work Phone: [facility] 10-25-2021 14:47-0400 Heart rate 88 /min Ramos Erwin MD Work Phone: [facility] 10-25-2021 14:47-0400 SaO2% (BldA) [Mass fraction] 96 % Ramos Erwin MD Work Phone: [facility] 10-25-2021 14:47-0400 Systolic blood pressure 136 mm[Hg] Ramos Erwin MD Work Phone: [facility] 10-12-2021 10:11-0400 Body height 180.3 cm Cornelio Persaud MD Work Phone: [facility] 10-12-2021 10:11-0400 Body weight 103.69 kg Cornelio Persaud MD Work Phone: [facility] 10-12-2021 10:11-0400 Diastolic blood pressure 74 mm[Hg] Cornelio Persaud MD Work Phone: [facility] 10-12-2021 10:11-0400 Heart rate 95 /min Cornelio Persaud MD Work Phone: [facility] 10-12-2021 10:11-0400 SaO2% (BldA) [Mass fraction] 100 % Cornelio Persaud MD Work Phone: [facility] 10-12-2021 10:11-0400 Systolic blood pressure 112 mm[Hg] Cornelio Persaud MD Work Phone: [facility] Encounters Encounter Date Encounter Type Care Provider Facility Start: 04-08-2025 End: 04-08-2025 Evaluation and management of inpatient [facility] Facility:[facility] Start: 04-01-2025 End: 04-21-2025 Evaluation and management of inpatient [facility] Facility:[facility] Start: 03-30-2025 End: 03-30-2025 ambulatory [facility] Facility:[facility] Start: 03-16-2025 End: 03-16-2025 ambulatory [facility] Facility:[facility] Start: 03-10-2025 End: 03-10-2025 ambulatory [facility] Facility:[facility] Start: 03-05-2025 End: 03-05-2025 ambulatory [facility] Facility:[facility] Start: 02-23-2025 End: 02-23-2025 Follow-up encounter Norah Candelario MD Work Phone: Internal Medicine [facility] Start: 02-23-2025 End: 02-23-2025 ambulatory [facility] Facility:[facility] Start: 02-20-2025 End: 02-20-2025 Telephone encounter Neyda Velarde RN Hematology/Oncology Start: 02-20-2025 End: 02-20-2025 ambulatory [facility] Facility:[facility] Start: 02-20-2025 End: 02-20-2025 Office outpatient visit 15 minutes Norah Candelario MD Work Phone: Internal Medicine [facility] Comment on above: Petechiae (Primary D x) Start: 02-19-2025 End: 02-19-2025 Telephone encounter July Pierce MD Work Phone: Hematology/Oncology Comment on above: Patient Question Start: 02-18-2025 End: 02-18-2025 Telephone encounter Beth Cuenca CK Work Phone: Hematology/Oncology Start: 02-17-2025 End: 02-17-2025 Patient encounter procedure Priscilla Salas MD Work Phone: Cardiology Comment on above: Ascending aorta dila tation (Primary Dx); HFrEF (heart failure with reduced ejection fraction) (HCC); Mixed hyperlipidemia; Essential hypertension; Mantle cell lymphoma, unspecified body region (HCC); Generalized weakness Start: 02-17-2025 End: 02-17-2025 ambulatory Nga Deras MA Work Phone: Internal Medicine Comment on above: SNF Discharge Initia l Outreach (Week 1) for Post Acute Care Start: 02-16-2025 End: 02-16-2025 ambulatory Samm Kc DO Work Phone: [facility] Comment on above: Allied Health Visit (Medication Adherence Outreach/) Start: 02-11-2025 End: 02-11-2025 Telephone encounter Samm Kc DO Work Phone: [facility] Comment on above: Orders Start: 02-11-2025 End: 02-13-2025 ambulatory Nga Deras MA Work Phone: Internal Medicine Comment on above: Started SNF Discharg e Initial Outreach (Week 1) for Post Acute Care Start: 02-11-2025 End: 02-11-2025 Office outpatient visit 25 minutes Samm Yamiin DO Work Phone: [facility] Comment on above: 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); COVID-19; Zinc deficiency; Chronic insomnia; Benign prostatic hyperplasia without lower urinary tract symptoms Start: 02-10-2025 End: 02-13-2025 Patient Outreach Mer Leon RN Work Phone: [employer] [facility] Comment on above: Transition Of Care ( Chart review) Mantle cell lymphoma , unspecified body region (HCC) (Primary Dx); Autoimmune hemolytic anemia (HCC); At risk for infection due to immunosuppression Patient Update Start: 02-06-2025 End: 02-06-2025 Telemedicine consultation with patient Tarun Alicia APRN.[employer]ICK [employer] Work Phone: [facility] Start: 02-06-2025 End: 02-06-2025 ambulatory Tarun Alicia APRN.[employer] Work Phone: [facility] Comment on above: Generalized weakness (Primary Dx); Mantle cell lymphoma, unspecified body region (HCC); COVID-19; Dementia with behavioral disturbance (HCC); Autoimmune hemolytic anemia, unspecified (HCC) Start: 02-03-2025 End: 02-03-2025 ambulatory Rowena Elizabeth APRN.[employer] Work Phone: [facility] Comment on above: Generalized weakness (Primary Dx); Mantle cell lymphoma, unspecified body region (HCC); COVID-19; Dementia with behavioral disturbance (HCC); Autoimmune hemolytic anemia, unspecified (HCC) Start: 02-03-2025 End: 02-03-2025 Telemedicine consultation with patient Rowena Elizabeth APRN.BRICK [employer] BLOCK [employer]KER Work Phone: [facility] Start: 01-29-2025 End: 01-29-2025 Patient encounter procedure Samm Kc Work Phone: [facility] Comment on above: Population Health Na vigation Outreach ([facility] [facility] ) Start: 01-29-2025 End: 01-29-2025 Telemedicine consultation with patient Rowena Elizabeth APRN.BRICK [employer] BLOCK MAKER Work Phone: [facility] Start: 01-29-2025 End: 02-09-2025 ambulatory Samm Kc DO Work Phone: [facility] Comment on above: Generalized weakness (Primary Dx); COVID-19; Dementia with behavioral disturbance (HCC); Autoimmune hemolytic anemia, unspecified (HCC); Mantle cell lymphoma, unspecified body region (HCC) Start: 01-28-2025 End: 02-08-2025 Evaluation and management of inpatient [facility] Start: 01-26-2025 End: 01-26-2025 Telephone encounter Samm Persaudcini DO Work Phone: [facility] Comment on above: Insurance Authorizat ion (Blood-Glucose Meter,Continuous (FREESTYLE YESSENIA 3 READER) misc/) Appointment Start: 01-24-2025 End: 01-28-2025 Evaluation and management of inpatient [facility] Facility:[facility] Start: 01-23-2025 End: 01-23-2025 ambulatory [facility] DO Work Phone: [facility] Comment on above: Jaundice Start: 01-22-2025 ambulatory [facility] Facilit y:[facility] Start: 01-22-2025 End: 01-22-2025 Subsequent hospital visit by physician Marielena Work Phone: Molecular Imaging Comment on above: Mantle cell lymphoma , unspecified body region (HCC) [C83.10] Start: 01-20-2025 End: 01-27-2025 Telephone encounter Samm Persaudcini DO Work Phone: [facility] Comment on above: Orders Start: 01-19-2025 End: 01-19-2025 ambulatory CARSON BARR Facility:[facility] Start: 01-19-2025 End: 01-19-2025 Subsequent hospital visit by physician Carson Barr MD Work Phone: [facility] Radiology Comment on above: Localized enlarged l ymph nodes [R59.0] Start: 01-15-2025 End: 01-23-2025 Telephone encounter Samm Persaudcini DO Work Phone: [facility] Comment on above: request [place] azael arellano Yessenia 3 Start: 01-14-2025 End: 01-14-2025 ambulatory [facility] Facility:[facility] Start: 01-12-2025 End: 01-13-2025 Telephone encounter Vannesa Wu LPN [facility] Comment on above: Home Care (Confirmat ion Call) Home Care; Orders Start: 01-10-2025 End: 01-12-2025 Evaluation and management of inpatient SAMM YAMINI Facility:[facility] Start: 01-08-2025 End: 01-08-2025 ambulatory Vy Houston RN Work Phone: [employer] [facility] Start: 01-08-2025 End: 01-08-2025 Patient encounter procedure Vy Houston RN Work Phone: [employer] [facility] Comment on above: Transition Of Care Start: 01-08-2025 End: 01-09-2025 Telephone encounter Rakel Briggs LPN [facility] Comment on above: Home Care (Follow fo r [facility]) Appointment Start: 01-07-2025 End: 01-07-2025 ambulatory Blank Burroughs RNoverseamer/Oncology Comment on above: Recheck Start: 01-06-2025 End: 01-10-2025 [facility] Start: 01-06-2025 End: 01-06-2025 Patient encounter procedure Marti Garcia APRN.BRICK [employer]KER Work Phone: Hematology/Oncology Start: 01-06-2025 End: 01-06-2025 ambulatory Lilli Thomas RN NURSE SUPERVISOR DECORATING Comment on above: Hypotension Autoimmune hemolytic anemia (HCC) (Primary Dx) High Blood Sugar Autoimmune hemolytic anemia (HCC) (Primary Dx); Localized enlarged lymph nodes; Splenomegaly; AVM (arteriovenous malformation) of duodenum, acquired; TONA (acute kidney injury) Start: 01-05-2025 End: 01-05-2025 Telephone encounter Samm Kc DO Work Phone: [facility] Comment on above: Orders Start: 12-29-2024 End: 12-30-2024 Follow-up encounter Karol Rodriguez APRN.BRICK [employer] BLOCK MAKER Work Phone: [facility] Comment on above: Results Start: 12-29-2024 End: 12-29-2024 ambulatory [facility] Facility:[facility] Start: 12-29-2024 End: 12-29-2024 Office outpatient visit 40 minutes Pola Garcia MD Work Phone: Geriatrics Comment on above: 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); Mixed Alzheimer and vascular dementia (HCC); Dementia with behavioral disturbance (HCC); Vascular dementia without behavioral disturbance (HCC); Drug-induced autoantibody type hemolytic anemia (HCC); Gastro-esophageal reflux disease without esophagitis; Type 2 diabetes mellitus without complication, without long-term current use of insulin (HCC); Enlarged lymph nodes; Nonadherence to medical treatment; Essential hypertension; Autoimmune hemolytic anemia (HCC) Start: 12-27-2024 End: 12-27-2024 ambulatory JULY PIERCE Facility:[facility] Start: 12-27-2024 End: 12-27-2024 Subsequent hospital visit by physician [facility] Radiology Comment on above: Localized enlarged l ymph nodes [R59.0] Start: 12-25-2024 End: 12-25-2024 ambulatory MICHELLE MAY Not Available Start: 12-23-2024 End: 12-23-2024 Patient encounter procedure July Pierce MD Work Phone: Hematology/Oncology Start: 12-23-2024 End: 12-23-2024 ambulatory July Pierce MD Work Phone: Hematology/Oncology Comment on above: Autoimmune hemolytic anemia (HCC) (Primary Dx); Localized enlarged lymph nodes Start: 12-10-2024 ambulatory SAMM Horowitz y:[facility] Start: 12-06-2024 Evaluation and manag ement of inpatient DEANNE BUTTERFIELD MD Facility:[id number] Start: 12-06-2024 End: 12-06-2024 ambulatory Rowena Galvan RN Work Phone: NURSE SUPERVISOR DECORATING Start: 12-06-2024 End: 12-06-2024 Patient encounter procedure Rowena Galvan RN Work Phone: NURSE SUPERVISOR DECORATING Comment on above: Clinical Update Start: 11-26-2024 End: 11-26-2024 Patient encounter procedure Sedrick Roberts MD Work Phone: Endocrinology Comment on above: Type 2 diabetes kev itus without complication, without long- term current use of insulin (HCC) (Primary Dx) Start: 11-26-2024 End: 11-26-2024 ambulatory [facility] Facility:[facility] Start: 11-26-2024 End: 12-04-2024 Telephone encounter Sedrick Roberts MD Work Phone: Endocrinology Comment on above: Orders Start: 11-06-2024 End: 11-06-2024 ambulatory Ivan Phelanjulito BIRD [facility] [place] Start: 11-06-2024 End: 11-06-2024 Patient encounter procedure Ivan Phelanjulito BIRD [facility] Comment on above: Population Health Na vigation Outreach ([facility]) Start: 10-26-2024 End: 10-26-2024 Emergency department patient visit [facility] Facility:[id number] Start: 10-08-2024 End: 10-09-2024 Refill Sammi Velarde APRN.CNP Work Phone: Neurology Comment on above: Refill Request Start: 10-03-2024 End: 10-06-2024 Refill Pola Garica MD Work Phone: Geriatrics Comment on above: Refill Request Start: 09-11-2024 End: 09-11-2024 ambulatory [facility] Facility:[facility] Start: 09-11-2024 End: 09-11-2024 Patient encounter procedure El Retana DPM Work Phone: Podiatry Comment on above: Pain due to onychomy cosis of toenails of both feet (Primary Dx); Diabetic polyneuropathy associated with type 2 diabetes mellitus (HCC) Start: 09-10-2024 End: 09-10-2024 ambulatory [facility] Facility:[facility] Start: 09-10-2024 End: 09-10-2024 Office consultation new/estab patient 30 min Manda Velasquez DO Work Phone: General Surgery Comment on above: Abnormal findings on examination of gastrointestinal tract (Primary Dx); History of colonic polyps; Diarrhea, unspecified type Start: 09-01-2024 End: 09-02-2024 Telephone encounter [facility] DO Work Phone: [facility] Comment on above: Orders Start: 08-29-2024 End: 08-29-2024 Telephone encounter Samm Kc DO Work Phone: Internal Medicine [place] [id number] Comment on above: Opened In Error Patient Request (ex spouse ) Start: 08-19-2024 End: 08-20-2024 Telephone encounter Pola Garcia MD Work Phone: Geriatrics Comment on above: Patient Request (Ref erral ) Start: 08-05-2024 End: 08-06-2024 Telephone encounter Pola Garcia MD Work Phone: Geriatrics Comment on above: Medication Question (antidepressant meds) Start: 08-05-2024 End: 08-06-2024 ambulatory [facility] Facility:[facility] Start: 08-05-2024 End: 08-05-2024 Assmt & care planning pt w/cognitive impairment Pola Garcia MD Work Phone: Geriatrics Comment on above: 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); Dementia with behavioral disturbance (HCC); Memory loss; Type 2 diabetes mellitus without complication, without long-term current use of insulin (HCC); Tobacco abuse disorder; Vascular dementia without behavioral disturbance (HCC); Nicotine dependence, cigarettes, uncomplicated; group home (current) use of aspirin Start: 08-01-2024 End: 08-01-2024 Refill Migdaliarosalva Gilmorec [employer]IT[employer] BROKER.[employer]KER Work Phone: Endocrinology Comment on above: Refill Request Start: 07-12-2024 End: 07-15-2024 Refill Migdalia Kupiec [employer]ITIES BROKER.[employer] BLOCK MAKER Work Phone: Endocrinology Comment on above: Refill Request Start: 07-08-2024 End: 07-08-2024 ambulatory [facility] Facility:[facility] Start: 07-08-2024 End: 07-08-2024 Office outpatient visit 25 minutes Samm Kc DO Work Phone: [facility] Comment on above: Type 2 diabetes kev itus without complication, without long- term current use of insulin (HCC) (Primary Dx); Dementia with behavioral disturbance (HCC); Ascending aorta dilatation (HCC); Essential hypertension; Mixed hyperlipidemia; Screening for diabetic retinopathy Start: 06-07-2024 End: 06-09-2024 Refill Samm Kc Work Phone: Internal Medicine [place] Comment on above: Refill Request Start: 06-02-2024 End: 06-03-2024 Telephone encounter Yursa Beltran DO Work Phone: Gastroenterology Comment on above: Results Start: 05-30-2024 End: 05-30-2024 Telephone encounter Samm Kc DO Work Phone: [facility] Comment on above: Referral Request Start: 05-29-2024 End: 05-29-2024 ambulatory [facility] Facility:[facility] Start: 05-29-2024 End: 05-29-2024 Subsequent hospital visit by physician Yusra Beltran DO Work Phone: Ambulatory Surgery Comment on above: History of colonic p olyps [Z86.0100] Start: 05-12-2024 End: 05-12-2024 ambulatory iRtika Ring MA [facility] Start: 05-12-2024 End: 05-12-2024 Patient encounter procedure Ritika Ring MA [facility] Comment on above: Population Health Na vigation Outreach ([facility]) Start: 05-07-2024 End: 05-07-2024 ambulatory [facility] Facility:[facility] Start: 05-07-2024 End: 05-07-2024 Patient encounter procedure Bruno Villatoro APRN.CNP Work Phone: [facility] Comment on above: Skin tear of left kamara nd without complication, initial encounter (Primary Dx) Start: 05-05-2024 End: 05-22-2024 Refill Nurse [facility] Work Phone: Gastroenterology Start: 05-02-2024 End: 05-02-2024 ambulatory [facility] Facility:[facility] Start: 05-02-2024 End: 05-02-2024 Subsequent hospital visit by physician Lesly Bender MD Work Phone: Ambulatory Surgery Comment on above: History of colonic p olyps [Z86.0100] Start: 04-29-2024 End: 05-07-2024 Telephone encounter Samm Kc DO Work Phone: [facility] Comment on above: Results Start: 04-25-2024 End: 04-25-2024 ambulatory [facility] Facility:[facility] Start: 04-24-2024 End: 04-25-2024 Social Work [facility] Comment on above: Needs assistance wit community resources (Primary Dx) Appointment (Colonos copy) Results Start: 04-23-2024 End: 04-23-2024 Office outpatient visit 25 minutes Samm [facility] Work Phone: [facility] Comment on above: Type 2 diabetes kev itus without complication, without long- term current use of insulin (HCC) (Primary Dx); Essential hypertension; Mixed hyperlipidemia; Dementia with behavioral disturbance (HCC); Screening for prostate cancer; Decreased activities of daily living (ADL) Start: 03-19-2024 End: 03-19-2024 Patient encounter procedure Sunshine Duckworth APRN.CNP Work Phone: Cardiology Comment on above: Primary hypertension (Primary Dx); Systolic dysfunction without heart failure; Essential hypertension; Mixed hyperlipidemia; Type 2 diabetes mellitus without complication, without long-term current use of insulin (HCC); Ascending aorta dilatation (HCC); Carotid stenosis, asymptomatic, bilateral Start: 03-18-2024 End: 03-18-2024 Refill Taiwo Lee MD Work Phone: Neurology Comment on above: Refill Request Start: 03-17-2024 End: 03-17-2024 Office outpatient visit 15 minutes Jatin Garrett MD Work Phone: Dermatology Comment on above: 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 Start: 03-06-2024 End: 03-06-2024 ambulatory Samm Yamini DO Work Phone: [facility] Comment on above: Fever see triage call Start: 02-08-2024 End: 02-08-2024 Patient encounter procedure Sammi Velarde APRN.BRICK OR BLOCK MAKER Work Phone: Neurology Comment on above: Dementia with behavi oral disturbance (HCC) (Primary Dx) Start: 01-11-2024 End: 01-11-2024 Patient encounter procedure Анна Perez PA-C Work Phone: Dermatology [facility] Comment on above: Neoplasm of skin (Pr imary Dx); Encounter for follow-up examination after completed treatment for malignant neoplasm; History of nonmelanoma skin cancer; Sun-damaged skin; Multiple benign nevi; Bowman angioma; Seborrheic keratoses; Lentigines Start: 01-09-2024 End: 01-09-2024 Patient encounter procedure Nurse Joseluis [facility] Work Phone: Dermatology Comment on above: Visit for suture rem oval (Primary Dx) Type 2 diabetes kev itus without complication, without long-term current use of insulin (HCC) (Primary Dx) Start: 01-08-2024 End: 02-01-2024 Telephone encounter Sammi Velarde APRN.BRICK OR BLOCK MAKER Work Phone: Neurology Comment on above: Patient Question (Sp ouse has questions/concerns) Start: 01-04-2024 End: 01-04-2024 Patient encounter procedure Toni Duran APRN.CNP Work Phone: [facility] Comment on above: Mixed hyperlipidemia (Primary Dx); Encounter for immunization; Type 2 diabetes mellitus without complication, without long-term current use of insulin (HCC); Essential hypertension; Tobacco use disorder; SCC (squamous cell carcinoma), arm, left; Mixed Alzheimer and vascular dementia (HCC) Start: 12-31-2023 Refill Sammruddy Colindres i DO Work Phone: [facility] Comment on above: Refill Request; Medi cation Problem (Patient out of Lipitor) Start: 12-29-2023 ambulatory Joshua Mar RN NURSE SUPERVISOR DECORATING Start: 12-29-2023 Patient encounter procedure Joshua Mar RN NURSE SUPERVISOR DECORATING Comment on above: Clinical Update Start: 12-29-2023 Telephone encounter Bib jackson MD Work Phone: Dermatology Comment on above: Urgent Start: 12-27-2023 Telephone encounter Samm summers DO Work Phone: [facility] Comment on above: Patient Question Start: 12-26-2023 End: 12-26-2023 Patient encounter procedure Sammi Mccrary MD Work Phone: Dermatology Comment on above: Squamous cell carcin albert in situ (SCCIS) of skin of left forearm Start: 12-25-2023 ambulatory Brittnee Thompson LPN NURSE SUPERVISOR DECORATING Comment on above: pre op prep Start: 12-25-2023 Telephone encounter Bib jackson MD Work Phone: Dermatology Comment on above: Urgent Patient Update; Maryan ent Question (Pt disengaged, seems depressed) Start: 12-17-2023 End: 12-17-2023 Subsequent hospital visit by physician [facility] Radiology Comment on above: Acute pain of right shoulder [M25.511] Start: 12-17-2023 End: 12-17-2023 Patient encounter procedure Camille Benitez [employer]ER[employer]ICK [employer] BLOCK MAKER Work Phone: [facility] Comment on above: Acute pain of right shoulder (Primary Dx) Start: 12-17-2023 ambulatory Samm Manjordan shepherd DO Work Phone: [facility] Comment on above: Pain (Shoulder Pain) Start: 12-05-2023 Telephone encounter Priscilla Salas MD Work Phone: Cardiology Comment on above: Appointment Start: 12-03-2023 End: 12-03-2023 Patient encounter procedure Ivan Frederick Work Phone: Podiatry Comment on above: Callus of foot (Prim марина Dx); Onychomycosis; Diabetic polyneuropathy associated with type 2 diabetes mellitus (HCC) Start: 11-28-2023 Telephone encounter Анна mooney PA-C Work Phone: Dermatology [facility] Start: 11-23-2023 Telephone encounter Анна mooney PA-C Work Phone: [facility] Start: 11-14-2023 Refill Taiwo Lee MD Work Phone: Neurology Comment on above: Refill Request Start: 11-12-2023 Telephone encounter Lise aguero MD, PhD Work Phone: Colorectal Surgery Comment on above: Patient Update Refill Request Start: 11-09-2023 Telephone encounter Lise aguero MD, PhD Work Phone: Colorectal Surgery Comment on above: Patient Update medical records (Spo use checking if we recived medical records) Patient Question; Pa tient Update (Spouse states MRI will be sent to provider) Start: 11-08-2023 End: 11-08-2023 Patient encounter procedure Taiwo Lee MD Work Phone: Neurology Comment on above: Mixed Alzheimer's an d vascular dementia (HCC) (Primary Dx); Cognitive communication deficit Start: 11-01-2023 Telephone encounter Анна mooney PA-C Work Phone: [facility] Comment on above: Results Start: 10-31-2023 End: 10-31-2023 Patient encounter procedure Анна Perez PA-C Work Phone: [facility] Comment on above: Neoplasm of skin (Pr imary Dx) Start: 09-28-2023 Telephone encounter Lise aguero MD, PhD Work Phone: Colorectal Surgery Comment on above: Patient Update referrals Start: 09-10-2023 Telephone encounter Samm summers DO Work Phone: [facility] Comment on above: Patient Update Start: 09-05-2023 Telephone encounter Lise aguero MD, PhD Work Phone: Colorectal Surgery Comment on above: Results Start: 08-23-2023 ambulatory Soni Oneil MA [facility] Start: 08-17-2023 Telephone encounter Samm summers DO Work Phone: [facility] Comment on above: Results Start: 08-09-2023 End: 08-09-2023 Subsequent hospital visit by physician Lise Corado MD, PhD Work Phone: Ambulatory Surgery Comment on above: Screening for colon cancer [Z12.11] Start: 08-01-2023 Telephone encounter Rakel Cade RN [facility] Comment on above: Patient Question Start: 07-31-2023 Telephone encounter Migdalia perdomo [employer]ER.[employer] Work Phone: Endocrinology Comment on above: Patient Question Start: 07-24-2023 Telephone encounter Lise aguero MD, PhD Work Phone: Ambulatory Surgery Comment on above: Appointment (Miralax prep instructions mailed) Start: 05-22-2023 ambulatory Samm Colindres i DO Work Phone: [facility] Comment on above: Medication Problem Start: 04-17-2023 Refill Samm Colindres joao DO Work Phone: [facility] Comment on above: Refill Request Start: 02-15-2023 Telephone encounter Sedrick Barfield i, MD Work Phone: Endocrinology Comment on above: Appointment Start: 02-02-2023 Telephone encounter Samm summers DO Work Phone: Endocrinology Comment on above: Metoprolol Start: 02-01-2023 Telephone encounter Samm summers DO Work Phone: [facility] Comment on above: Patient Update Start: 01-30-2023 End: 01-30-2023 Patient encounter procedure Taiwo Lee MD Work Phone: Neurology Comment on above: Mild dementia withou t behavioral disturbance, psychotic disturbance, mood disturbance, or anxiety, unspecified dementia type (HCC) (Primary Dx); Memory loss Start: 12-22-2022 Telephone encounter Priscilla Salas MD Work Phone: Cardiology Comment on above: Results; Patient Upd ate Start: 12-15-2022 End: 12-15-2022 Patient encounter procedure Pricsilla Salas MD Work Phone: Cardiology Comment on above: Essential hypertensi on (Primary Dx); Cardiomyopathy, ischemic; Mixed hyperlipidemia; Tobacco use disorder; Alcohol abuse; Obesity, Class I, BMI 30-34.9; Stenosis of right carotid artery Start: 11-28-2022 ambulatory Samm Colindres i DO Work Phone: Internal Medicine [facility] [place] Start: 11-13-2022 ambulatory Herminia Delgado MA [facility] [place] Comment on above: Population Health Na vigation Outreach ([employer] Gaps ) Start: 10-23-2022 End: 10-23-2022 Patient encounter procedure Denisa FINK Work Phone: Audiology Comment on above: Sensorineural hearin g loss, bilateral (Primary Dx) Start: 09-22-2022 End: 09-22-2022 Patient encounter procedure Samm Kc DO Work Phone: [facility] Comment on above: Hyperglycemia (Prima ry Dx); Type 2 diabetes mellitus with hyperglycemia, without long-term current use of insulin (HCC); Memory loss; Abrasion of right hand, initial encounter; Sensorineural hearing loss (SNHL) of both ears Start: 09-18-2022 Telephone encounter Samm summers DO Work Phone: [facility] Comment on above: ER follow up appt qu estion Refill Request Start: 08-02-2022 End: 08-02-2022 Patient encounter procedure Sedrick Roberts MD Work Phone: Endocrinology Comment on above: Type 2 diabetes kev itus with hyperglycemia, without long-term current use of insulin (HCC) (Primary Dx) Start: 08-01-2022 Telephone encounter Sedrick Barfield i, MD Work Phone: Endocrinology Comment on above: Blood Sugar Elevatio n Start: 07-07-2022 Telephone encounter Sedrick Barfield i, MD Work Phone: Endocrinology Comment on above: PA--FREESTYLE YESSENIA 2 Start: 07-04-2022 Refill Sedrick Roberts MD Work Phone: Endocrinology Comment on above: Refill Request Start: 06-29-2022 Telephone encounter Sedrick Brafield i, MD Work Phone: Endocrinology Comment on above: Glucose Readings Start: 05-05-2022 ambulatory SAMM KC Facilit y:[facility] Start: 05-05-2022 End: 05-05-2022 Subsequent hospital visit by physician [facility] (Istat/1.5) Work Phone: [facility] Radiology MRI Comment on above: Occlusion and stenos is of unspecified carotid artery [I65.29] Start: 04-21-2022 Telephone encounter Large Hops Procedure Rm 1 [facility] Radiology MRI Comment on above: Orders Start: 04-14-2022 End: 04-14-2022 Subsequent hospital visit by physician [facility] Radiology Comment on above: Screening for abdomi nal aortic aneurysm [Z13.6] Start: 04-12-2022 End: 04-12-2022 Patient encounter procedure Samm Kc Work Phone: [facility] Comment on above: Wellness examination (Primary Dx); Screening for endocrine, metabolic and immunity disorder; Screening for abdominal aortic aneurysm; Advance directive discussed with patient; Screening for colon cancer; Type 2 diabetes mellitus with hyperglycemia, without long-term current use of insulin (HCC); Tobacco use disorder; Encounter for immunization; Alcohol abuse; MCI (mild cognitive impairment) Start: 04-12-2022 End: 04-12-2022 Patient encounter status Samm Kc Work Phone: [facility] Start: 03-01-2022 Refill Sedrick Roberts MD Work Phone: Endocrinology Comment on above: Refill Request Start: 02-15-2022 Orders Only Sedrick Roberts MD Work Phone: Endocrinology Comment on above: Low Blood Sugar Start: 01-31-2022 ambulatory Hortensia Shook RN NURS E SUPERVISOR DECORATING Comment on above: Diabetes (Low blood sugar/) Start: 01-30-2022 End: 01-30-2022 Patient encounter procedure Cornelio Persaud MD Work Phone: Neurology Comment on above: 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); Essential hypertension; Mixed hyperlipidemia; Cardiomyopathy, ischemic; Type 2 diabetes mellitus with hyperglycemia, without long-term current use of insulin (HCC); Spondylolisthesis of lumbar region; S/P lumbar fusion Start: 01-25-2022 End: 01-25-2022 Subsequent hospital visit by physician Us [facility] 2 Work Phone: Radiology Comment on above: 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] Start: 12-21-2021 End: 12-21-2021 Patient encounter procedure Sedrick Roberts MD Work Phone: Endocrinology Comment on above: Controlled type 2 di abetes mellitus without complication, 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 insulin use (HCC) Start: 12-02-2021 End: 12-02-2021 Orders Only Michael Arias DO Work Phone: Hematology/Oncology Comment on above: Thrombocytopenia (HC C) (Primary Dx) Thrombocytopenia (HC C) [D69.6] Start: 11-14-2021 Telephone encounter Michael rudolph DO Work Phone: Hematology/Oncology Comment on above: Follow Up (Positive antiplatelet factor 4 antibody.) Start: 11-11-2021 End: 11-11-2021 ambulatory Michael Arias DO Work Phone: Hematology/Oncology Comment on above: Thrombocytopenia (HC C) (Primary Dx) Start: 11-11-2021 End: 11-11-2021 Patient encounter procedure Michael Arias DO Work Phone: [facility] Start: 11-09-2021 ambulatory Vy Orozco RN NURSE O N CALL Comment on above: Diabetes Start: 10-25-2021 End: 10-25-2021 Patient encounter procedure Ramos Erwin MD Work Phone: Endovascular Center Comment on above: Stenosis of right ca rotid artery; Hypertension, unspecified type; Hyperlipidemia, unspecified hyperlipidemia type; H/O fall; H/O syncope Start: 10-25-2021 End: 10-25-2021 Subsequent hospital visit by physician Us Lopez Main Work Phone: Radiology Comment on above: 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] Start: 10-12-2021 End: 10-12-2021 Patient encounter procedure Cornelio Persaud MD Work Phone: Neurology Comment on above: 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); Nicotine use disorder, F17.2; Mixed hyperlipidemia; Essential hypertension; Type 2 diabetes mellitus with hyperglycemia, without long-term current use of insulin (HCC); Syncope, unspecified syncope type; Multiple falls; S/P lumbar fusion Start: 09-26-2021 Telephone encounter Priscilla Salas MD Work Phone: Cardiology Comment on above: Results Start: 09-22-2021 End: 09-22-2021 Subsequent hospital visit by physician Luz Faith [facility] Work Phone: Nuclear Medicine Comment on above: Encounter for screen ing for cardiovascular disorders [Z13.6] Start: 09-07-2021 ambulatory Rina Mcdowell RN Work Phone: [facility] Start: 09-07-2021 Follow-up encounter Rina chakraborty RN Work Phone: [facility] Comment on above: Primary Care [facility] Hospital Follow Up (TCM) Start: 09-20-2020 End: 09-20-2020 Subsequent hospital visit by physician Robin [facility] Work Phone: Radiology Comment on above: Long-term current us e of opiate analgesic [Z79.891] Procedures Date Procedure Procedure Detail Performing Clinician Start: 04-13-2025 Antibody screen SAMM KC Comment on above: Order Comment: Demarco harris Type: BLOOD SPECIMENOrdering Facility: [facility] Address: [address] [place] [address] Result Comment: Danielle ected result: Previously reported as Positive on 04/13/2025 at 5:16 PM EST.This is an addended report. These results have been addended to a previously final verified report. Performed By: #### Oscar COTA [id number] ####[facility] BLOOD BANKCLIA [id number] [place] [address] [place]#### TSCR ####[facility] BLOOD BANKCLIA [id number] [address] BLOOD BANKCLIA [id number] [address] Start: 04-05-2025 Antibody screen SAMM KC Comment on above: Order Comment: Speci men Type: BLOOD SPECIMENOrdering Facility: [facility] Address: [address] [place] [address] Result Comment: Danielle ected result: Previously reported as Positive on 04/05/2025 at 6:32 AM EDT.This is an addended report. These results have been addended to a previously final verified report. Performed By: #### D AGT, ASCR, %MARYANN, [id number], ABORH ####[facility] BLOOD BANKCLIA [id number] [address]#### TSCR ####[facility] BLOOD BANKCLIA [id number] [address] BLOOD BANKCLIA [id number] [address] Result Comment: Test ing performed with PEG Start: 04-01-2025 Electrocardiogram GABRI EL YAMINI Start: 04-01-2025 Electrocardiogram GABRI EL YAMINI Start: 03-30-2025 Antibody screen SAMM KC Comment on above: Order Comment: Speci men Type: BLOOD SPECIMENOrdering Facility: [facility] Address: [address] [place] [address] Performed By: #### T SCR, [id number] ####[facility] LABCLIA [id number] [address] Start: 03-16-2025 Antibody screen SAMMRUDDY KC Comment on above: Order Comment: Speci men Type: BLOOD SPECIMENOrdering Facility: [facility] Address: [address] [place] [address] Performed By: #### L [id number], TSCR ####[facility] BLOOD BANKCLIA [id number] [address] Start: 03-10-2025 Follow-up visit Follow Up JULY PIERCE Start: 03-05-2025 Antibody screen SAMM YAMINI Comment on above: Order Comment: Speci men Type: BLOOD SPECIMENOrdering Facility: [facility] Address: [address] [place] [address] Performed By: #### L [id number], TSCR ####[facility] BLOOD BANKCLIA [id number] [address] Start: 02-23-2025 Antibody screen SAMM YAMINI Comment on above: Order Comment: Speci men Type: BLOOD SPECIMENOrdering Facility: [facility] Address: [address] [place] [address] Performed By: #### L [id number], TSCR, %MARYANN ####[facility] BLOOD BANKCLIA [id number] [address] Start: 02-06-2025 Antibody screen SAMM YAMINI Comment on above: Order Comment: Speci men Type: BLOOD SPECIMENOrdering Facility: [facility] Address: [address] [place] [address] Performed By: #### T SCR, [id number] ####[facility] BLOOD BANKCLIA [id number] [address] Start: 01-24-2025 Antibody screen SAMM PERSAUDCINI Comment on above: Order Comment: Speci men Type: BLOOD SPECIMENOrdering Facility: [facility] Address: [address] [place] [address] Result Comment: Test ing performed with PEG Performed By: #### A SCR, [id number], ABORH, [id number] ####[facility] BLOOD BANKCLIA [id number] [place], [place] [id number] [place] [address] Start: 01-24-2025 Antibody screen SAMM YAMINI Comment on above: Order Comment: Speci men Type: BLOOD SPECIMENOrdering Facility: [facility] Address: [address] [place] [address] Performed By: #### % MARYANN, [id number], TSCR, DAGT ####[facility] BLOOD BANKCLIA [id number] [address] Start: 01-24-2025 Electrocardiogram BRIJESH KC Start: 01-22-[address] atten uation skull base mid-thigh Amy Angeles APRN.[employer] Work Phone: Start: 01-22-2025 Gluc bld gluc mntr d ev cleared fda spec home use [facility] Provider Start: 01-07-2025 Antibody screen SAMM KC Comment on above: Order Comment: Speci men Type: BLOOD SPECIMENOrdering Facility: [facility] Address: [address] [place] [address] Result Comment: Danielle ected result: Previously reported as Positive on 01/07/2025 at 5:39 AM EDT.This is an addended report. These results have been addended to a previously final verified report. Performed By: #### D AGT ####[facility] BLOOD BANKCLIA [id number] [address]#### ABORH, [id number] ####[facility] BLOOD BANKCLIA [id number] [address]#### TSCR ####[facility] BLOOD BANKCLIA [id number] [address] BLOOD BANKCLIA [id number] [address] Start: 01-06-2025 End: 01-06-2025 Blood count complete auto&auto difrntl wbc July Pierce MD Work Phone: Start: 01-06-2025 Diagnostic bone jose ow biopsies & aspirations Marti Garcia [employer]ER[employer] Work Phone: Start: 01-06-2025 Beta-2 microglobulin Ruddy Pierce MD Work Phone: Start: 01-06-2025 PATHOLOGIST INTERPRE TATION CBC/DIFF July Pierce MD Work Phone: Start: 12-27-2024 Ct soft tissue neck w/o contrast material July Pierce MD Work Phone: Start: 12-27-2024 Ct thorax w/o contra st material July Pierce MD Work Phone: Start: 12-23-2024 Antibody screen SAMM KC Comment on above: Order Comment: Speci men Type: BLOOD SPECIMENOrdering Facility: [facility] Address: [address] [place] [address] Result Comment: Danielle ected result: Previously reported as Positive on 12/23/2024 at 5:38 PM EDT.This is an addended report. These results have been addended to a previously final verified report. Performed By: #### B BABINT ####[facility] BLOOD BANKCLIA [id number] [address] [place]#### TSCR ####[facility] BLOOD BANKCLIA [id number] [address] BLOOD BANKCLIA [id number] [address] OF [facility]#### ASCR, ABORH ####[facility] BLOOD BANKCLIA [id number] [address] [place] Result Comment: Test ing performed with PEG Start: 12-23-2024 Bld bank phys svcs d iffc cross match&/eval rep July Pierce MD Work Phone: Start: 12-23-2024 BLOOD BANK PLACEHOLD ER, ANTIBODY INTERPRETATION July Pierce MD Work Phone: Start: 12-23-2024 Blood count complete automated July Pierce MD Work Phone: Start: 12-23-2024 Blood typing serologic abo July Pierce MD Work Phone: Start: 12-23-2024 MAE DIRECT July wills MD Work Phone: Start: 12-09-[address] Naresh bloom Start: 11-26-2024 Hemoglobin A1c/Hemoglobin.total in Blood Sedrick Roberts MD Work Phone: Start: 05-29-2024 Colonoscopy flx dx w /collj spec when pfpanfilo Corado MD, PhD Work Phone: Start: 05-29-2024 Gluc bld gluc mntr d ev cleared fda spec home use Yusra Beltran DO Work Phone: Start: 05-29-2024 End: 05-29-2024 Colonoscopy Yusra Beltran DO Work Phone: Start: 05-02-2024 Colonoscopy flx dx w /collj spec when pfpanfilo Corado MD, PhD Work Phone: Start: 05-02-2024 End: 05-02-2024 Colonoscopy Lesly Bender MD Work Phone: Start: 04-24-2024 Echocardiography MELVINA KC Start: 03-19-2024 Ecg routine ecg w/le ast 12 lds i&r only Sunshine Duckworth [employer]IES [employer]ER.[employer] Work Phone: Start: 01-11-2024 SKIN / NAIL BIOPSY Yisel haylee Perez PA-C Work Phone: Start: 12-17-2023 Radex shoulder compl ete minimum 2 views Camille Leonel Benitez [employer]ER.[employer] Work Phone: Start: 10-31-2023 SKIN / NAIL BIOPSY Yisel haylee Perez PA-C Work Phone: Start: 08-09-2023 Colonoscopy flx dx w /collj spec when pfrmd Samm Kc DO Work Phone: Start: 08-09-2023 Level iv surg pathol ogy gross&microscopic exam Lise Corado MD, PhD Work Phone: Start: 08-09-2023 Gluc bld gluc mntr d ev cleared fda spec home use Lise Corado MD, PhD Work Phone: Start: 08-09-2023 Colonoscopy Samm summers DO Work Phone: Start: 08-02-2022 Hemoglobin A1c/Hemoglobin.total in Blood Sedrick Roberts MD Work Phone: Start: 05-05-2022 Mra neck w/o &w/cont rast material Qarab Jeff Salas MD Work Phone: Start: 04-14-2022 Us abdominal aorta r eal time screen study aaa Samm Yamini DO Work Phone: Start: 04-12-2022 INFLUENZA SEASONAL QUADRIVALENT HIGH DOSE AGE 65+ Samm Kc DO Work Phone: Start: 01-25-2022 Duplex scan extracra nial art compl bi study Ramos Erwin MD Work Phone: Start: 12-21-2021 Hemoglobin A1c/Hemoglobin.total in Blood Sedrick Roberts MD Work Phone: Start: 12-02-2021 Us abdominal real ti me w/image limited Michael Arias DO Work Phone: Start: 12-02-2021 Us abdominal real ti me w/image limited Michael Arias DO Work Phone: Start: 10-25-2021 Duplex scan extracra nial art compl bi study Cornelio Persaud MD Work Phone: Start: 09-22-2021 Myocardial spect mul tiple studies Deanne Carrasco DO Work Phone: Start: 09-20-2020 Radex spine lumbosac ral 2/3 views Luis Brooke DO Work Phone: Start: 01-28-2019 Adult depression scr eening assessment Rina Mcdowell RN Work Phone: Plan of Treatment Date Care Activity Detail Author Start: 02-23-2026 Creatinine measurement Serum Creatinine [facility] Start: 02-20-2026 Annual PCP Team Chronic Disease Visit Annual PCP Team Chronic Disease Visit [facility] Start: 02-11-2026 Annual PCP Team Chronic Disease Visit Annual PCP Team Chronic Disease Visit [facility] Start: 02-06-2026 Creatinine measurement Serum Creatinine [facility] Start: 01-26-2026 Creatinine measurement Serum Creatinine [facility] Start: 01-14-2026 Annual PCP Team Chronic Disease Visit Annual PCP Team Chronic Disease Visit [facility] Start: 01-12-2026 Creatinine measurement Serum Creatinine [facility] Start: 01-09-2026 Creatinine measurement Serum Creatinine [facility] Start: 01-08-2026 Complete blood count Hemoglobin/Hematocrit [facility] Start: 01-08-2026 Creatinine measurement Serum Creatinine [facility] Start: 01-08-2026 Diabetic foot examination Diabetic Foot Exam [facility] Start: 01-07-2026 Complete blood count Hemoglobin/Hematocrit [facility] Start: 01-07-2026 Creatinine measurement Serum Creatinine [facility] Start: 12-29-2025 Annual PCP Team Chronic Disease Visit Annual PCP Team Chronic Disease Visit [facility] Start: 12-29-2025 Hepatitis B surface antibody level LDL Cholesterol [facility] Start: 12-09-2025 Screening for malignant neoplasm of colon [facility] Start: 11-17-2025 End: 11-17-2025 Patient encounter procedure 11/17/2025 3:00 PM EDT Office Visit Endocrinology [address] [address] Sedrick Roberts MD [address] [place] [id number] one year follow up Endocrinology Comment on above: one year follow up Start: 09-10-2025 BP Controlled (<130/80) BP Controlled (<130/80) [facility] Start: 08-17-2025 End: 08-17-2025 Patient encounter procedure 08/17/2025 11:30 AM EDT Office Visit Cardiology [address] [address] Marti Claudio APRN.[address] [address] 6mo follow up Cardiology Comment on above: 6mo follow up Start: 08-11-2025 End: 08-11-2025 Patient encounter procedure 08/11/2025 11:40 AM EST Office Visit [facility] [address] [place], [place] [id number] Yamini SammDO [address] [place] [address] Return in about 6 months (around 08/11/2025) for follow up. [facility] Comment on above: Return in about 6 months (around ) for follow up. Start: 08-05-2025 Annual PCP Team Chronic Disease Visit Annual PCP Team Chronic Disease Visit [facility] Start: 07-29-2025 Hemoglobin A1c measurement HbA1C [facility] Start: 07-08-2025 Annual PCP Team Chronic Disease Visit Annual PCP Team Chronic Disease Visit [facility] Start: 07-08-2025 BP Controlled (<130/80) BP Controlled (<130/80) [facility] Start: 07-08-2025 Covid-19 Vaccine ( season) Covid-19 Vaccine () [facility] Comment on above: Postponed from 02/10/2024 (Declined at t his time) Start: 07-01-2025 Hemoglobin A1c measurement HbA1C [facility] Start: 05-29-2025 Screening for malignant neoplasm of colon [facility] Start: 05-28-2025 Hemoglobin A1c measurement HbA1C [facility] Start: 05-28-2025 End: 05-28-2025 Patient encounter procedure 05/28/2025 1:00 PM EST Office Visit Endocrinology [address] [address] Migdalia Knapp, TU.[employer] [address] [address] 6 month follow up Endocrinology Comment on above: 6 month follow up Start: 05-20-2025 End: 05-20-2025 Patient encounter procedure [facility] Endoscopy Comment on above: colon Start: 05-02-2025 Screening for malignant neoplasm of colon [facility] Start: 04-25-2025 Hepatitis B screening Urine Albumin:Creatinine Ratio [facility] Start: 04-25-2025 Hepatitis B surface antibody level LDL Cholesterol [facility] Start: 04-23-2025 Annual PCP Team Chronic Disease Visit Annual PCP Team Chronic Disease Visit [facility] Start: 04-23-2025 BP Controlled (<130/80) BP Controlled (<130/80) [facility] Start: 03-19-2025 BP Controlled (<130/80) BP Controlled (<130/80) [facility] Start: 03-10-2025 End: 03-10-2025 Follow-up encounter 03/10/2025 9:30 AM EDT Visit (SP) Office Hematology/Oncology [address] [address] [place] [address] [place], [place] [id number] Follow up Hematology/Oncology Comment on above: Follow up Start: 03-04-2025 End: 03-04-2025 Patient encounter procedure 03/04/2025 9:00 AM EDT [facility] Nutrition Therapy [address] [place] [address] Rowena Sanchez, RD [address] [place] [address] VIRTUAL NEW CONSULT Nutrition Therapy Comment on above: VIRTUAL NEW CONSULT Start: 03-02-2025 End: 03-02-2025 ambulatory 03/02/2025 1:00 PM EDT Visit (SP) Office Hematology/Oncology [address] [place] [address] [place] [address] [place] [address] [facility] CE[facility] LYMPHOMA Hematology/Oncology Comment on above: MANTLE CELL LYMPHOMA Start: 02-24-2025 End: 02-24-2025 ambulatory 02/24/2025 11:45 AM EDT Results Only [facility] Draw Station [address] [place], [place] [id number] [facility] Station Comment on above: LABS Start: 02-17-2025 End: 02-17-2025 Patient encounter procedure 02/17/2025 3:00 PM EDT Office Visit Cardiology [address] [place] [address] [place] [address] [place] [address] Follow up Cardiology Comment on above: Follow up Start: 02-11-2025 End: 02-11-2025 Patient encounter procedure 02/11/2025 11:20 AM EDT Office Visit [facility] [address] [place], [place] [address] Samm Kc DO [address] [place] [address] Recent hospitalization, generalized fatigue, COVID-19 [facility] Comment on above: Recent hospitalization, generalized fati nelly, COVID-19 Start: 02-10-2025 End: 02-10-2025 ambulatory 02/10/2025 10:00 AM EDT Visit (SP) Office Hematology/Oncology [address] [place] [phone] Gila Braxton MD [address] [place] [address] [facility] [employer] [facility]YMPH[facility] Hematology/Oncology Comment on above: MANTLE CELL LYMPHOMA Start: 02-09-2025 Influenza vaccination [facility] Start: 02-07-2025 BP Controlled (<130/80) BP Controlled (<130/80) [facility] Start: 02-06-2025 End: 02-06-2025 Follow-up encounter 02/06/2025 12:30 PM EDT Visit (SP) Office Hematology/Oncology [address] [place] [id number] [place] [address] [place] [id number] bx follow up Ok per Dr Pierce Hematology/Oncology Comment on above: bx follow up Ok per Dr Pierce Start: 02-03-2025 End: 02-03-2025 Follow-up encounter 02/03/2025 1:00 PM EDT Visit (SP) Office Hematology/Oncology [address] [address] [place] [address] [place] [address] bx follow up Hematology/Oncology Comment on above: bx follow up Start: 02-03-2025 End: 02-03-2025 Patient encounter procedure 02/03/2025 10:40 [place] [address] Samm Kc [place] [address] [place] [address] Recent hospitalization, generalized fatigue, COVID-19 [facility] Comment on above: Recent hospitalization, generalized fati nelly, COVID-19 Start: 02-02-2025 End: 02-02-2025 Patient encounter procedure 02/02/2025 3:00 PM EDT Office Visit [facility] [address] [id number] [facility] [address] [phone] DM/HTN/Med Rec [facility] Comment on above: DM/HTN/Med Rec Start: 01-27-2025 End: 01-27-2025 Patient encounter procedure 01/27/2025 2:00 PM EDT Office Visit [facility] [address] [id number] Gila Isaac, [facility] [address] [place] [address] DM/HTN/Med Rec [facility] Comment on above: DM/HTN/Med Rec Start: 01-27-2025 End: 01-27-2025 Follow-up encounter Hematology/Oncology Comment on above: bx follow up bx follow up Ok per Dr Pierce Start: 01-22-2025 End: 01-22-2025 ambulatory 01/22/2025 2:00 PM EDT Visit (SP) Office Hematology/Oncology [address] [place] [address] [place] [address] [place] [address] MANTLE CELL LYMPHOMA Hematology/Oncology Comment on above: MANTLE CELL LYMPHOMA Start: 01-22-2025 End: 01-22-2025 Patient encounter procedure Molecular Imaging Comment on above: NM PETCT SKULL THIGH INIT Start: 01-19-2025 End: 01-19-2025 Admission to same day surgery center 01/19/2025 1:00 PM EDT - 01/19/2025 2:00 PM EDT Surgery [facility] Radiology [address] [place] [address] [place] [address], [address] [address] BIOPSY OR EXCISION LYMPH NODES(S) NEEDLE SUPERFICIAL [facility] Radiology Comment on above: BIOPSY OR EXCISION LYMPH NODES(S) NEEDLE SUPERFICIAL Start: 01-19-2025 End: 01-19-2025 Bx/exc lymph node needle superficial BIOPSY OR EXCISION LYMPH NODES(S) NEEDLE SUPERFICIAL Localized enlarged lymph nodes 01/19/2025 1:00 PM EDT ME IR Start: 01-19-2025 Subsequent hospital visit by physician 01/19/2025 1:00 PM EDT Hospital Encounter [facility] Radiology [address] [place] [address] [place] [address], [address] [address] Localized enlarged lymph nodes [R59.0] [facility] Radiology Comment on above: Localized enlarged lymph nodes [R59.0] Start: 01-15-2025 End: 01-15-2025 Patient encounter procedure Molecular Imaging Comment on above: IP-NM PET/CT WHOLE BODY INIT Start: 01-14-2025 End: 01-14-2025 Patient encounter procedure 01/14/2025 1:40 PM EDT Office Visit [address] [address] Samm Kc DO [address] [place], [place] [address] TCM HOSP FOLLOW UP [facility] Comment on above: TCM HOSP FOLLOW UP Start: 01-09-2025 End: 01-09-2025 Patient encounter procedure 01/09/2025 9:20 AM EDT Office Visit [address] [id number] Marlon KcrielDO [address] [place] [address] Medicare AWV(modifier 25) and Return in about 6 months (around 10/21/2024) for diabetes . [facility] Comment on above: Medicare AWV(modifier 25) and Return in about 6 months (around 10/21/2024) for diabetes . Start: 01-06-2025 End: 01-06-2025 Follow-up encounter Hematology/Oncology Comment on above: follow up to scans anemia follow up to scans Start: 01-05-2025 End: 07-08-2025 CBC panel - Blood by Automated count COMPLETE BLOOD COUNT Lab Routine Type 2 diabetes mellitus without complication, without long-term current use of insulin (HCC) Essential hypertension Mixed hyperlipidemia Expected: 01/05/2025, Expires: 07/08/2025 [facility] Comment on above: Expected: 01/05/2025, Expires: Start: 01-05-2025 End: 07-08-2025 Comprehensive metabolic 2000 panel - Serum or Plasma COMPREHENSIVE METABOLIC PANEL Lab STAT Type 2 diabetes mellitus without complication, without long-term current use of insulin (HCC) Essential hypertension Mixed hyperlipidemia Expected: 01/05/2025, Expires: 07/08/2025 [facility] Comment on above: Expected: 01/05/2025, Expires: Start: 01-05-2025 End: 07-08-2025 Hemoglobin A1c in Blood HEMOGLOBIN A1C Lab Routine Type 2 diabetes mellitus without complication, without long-term current use of insulin (HCC) Essential hypertension Mixed hyperlipidemia Expected: 01/05/2025, Expires: 07/08/2025 [facility] Work Phone: Comment on above: Expected: 01/05/2025, Expires: Start: 01-05-2025 End: 07-08-2025 Lipid 1996 panel - Serum or Plasma LIPID PANEL BASIC Lab Routine Type 2 diabetes mellitus without complication, without long-term current use of insulin (HCC) Essential hypertension Mixed hyperlipidemia Expected: 01/05/2025, Expires: 07/08/2025 [facility] Comment on above: Expected: 01/05/2025, Expires: Start: 01-03-2025 Annual PCP Team Chronic Disease Visit Annual PCP Team Chronic Disease Visit [facility] Start: 01-03-2025 BP Controlled (<130/80) BP Controlled (<130/80) [facility] Start: 01-03-2025 Urine microalbumin profile DTaP,Tdap,Td Vaccine (1 - Tdap) [facility] Comment on above: Postponed from 1968 (Insurance Cov erage) Start: 12-29-2024 End: 12-29-2024 Patient encounter procedure 12/29/2024 8:30 AM EDT Office Visit Geriatrics [address] [place] [phone] Pola Garcia MD [address], [address] [place] [address] in person follow up Geriatrics Comment on above: in person follow up Start: 12-25-2024 BP Controlled (<130/80) BP Controlled (<130/80) [facility] in Start: 12-10-2024 End: 12-10-2024 Patient encounter procedure 12/10/2024 11:20 AM EDT Office Visit Family [facility] [place] [address] [place] [address] Samm Kc DO [address] [place], [place] [phone] Medicare AWV(modifier 25) and Return in about 6 months (around 10/21/2024) for diabetes . [facility] Comment on above: Medicare AWV(modifier 25) and Return in about 6 months (around 10/21/2024) for diabetes . Start: 12-08-2024 Influenza vaccination Influenza Vaccine (#1) [facility] Comment on above: Postponed from 02/10/2024 (Declined at t his time) Start: 12-03-2024 Diabetic foot examination Diabetic Foot Exam [facility] Start: 11-26-2024 End: 11-26-2024 Patient encounter procedure 11/26/2024 3:00 PM EDT Office Visit Endocrinology [address] [address] Sedrick Roberts MD [address] [place], [place] [phone] follow up Endocrinology Comment on above: follow up Start: 11-24-2024 End: 11-24-2024 Patient encounter procedure 11/24/2024 8:00 AM EDT Office Visit Geriatrics [address] [place] [phone] Pola Garcia MD [address], [address] [place] [address] in person follow up Geriatrics Comment on above: in person follow up Start: 10-23-2024 Hemoglobin A1c measurement HbA1C [facility] Start: 10-21-2024 End: 10-21-2024 Patient encounter procedure [facility] Comment on above: Return in about 6 months (around 10/22/19) for diabetes . Medicare AWV(modifie r 25) and Return in about 6 months (around 10/21/2024) for diabetes . Start: 09-23-2024 End: 09-23-2024 Patient encounter procedure 09/23/2024 3:00 PM EDT Office Visit Cardiology [address] [place] [address] [place] [address] [place] [address] follow up Cardiology Comment on above: follow up Start: 09-10-2024 End: 09-10-2024 Patient encounter procedure 09/10/2024 2:15 PM EDT Office Visit General Surgery [address] [address] Manda Velasquez, DO [address] [place] [address] History of colonic polyps [Z86.0100] General Surgery Comment on above: History of colonic polyps [Z86.0100] Start: 08-26-2024 End: 08-26-2024 Patient encounter procedure 08/26/2024 9:30 AM EDT Office Visit Neurology [address] [place] [address] Dale Hawkins MD [address] [place] [address] Dementia with behavioral disturbance (HCC) [F03.918] Neurology Comment on above: Dementia with behavioral disturbance (HC C) [F03.918] Start: 08-08-2024 Screening for malignant neoplasm of colon [facility] Start: 08-05-2024 End: 08-05-2024 Patient encounter procedure 08/05/2024 8:30 AM EST Office Visit Geriatrics [address] [place] [address] Pola Garcia MD [address], [address] [place] [address] Dementia with behavioral disturbance (HCC) [F03.918] Geriatrics Comment on above: Dementia with behavioral disturbance (HC C) [F03.918] Start: 2024 RSV Vaccine (1 - 1-dose 75+ series) RSV Vaccine (1 - 1-dose 75+ series) [facility] Start: 07-14-2024 End: 07-14-2024 Patient encounter procedure 07/14/2024 1:20 PM EST Office Visit Dermatology [facility] [address] [place] [address] Анна Perez PA-C [address] [place] [address] [facility] Dermatology [facility] Comment on above: FBSE Start: 07-08-2024 End: 07-08-2024 Patient encounter procedure [facility] Comment on above: Return in about 6 months (around 07/06/19). Return in about 6 mo nths (around 07/06/2024).HM DUE PLEASE ADDRESS/UPDATE Start: 07-06-2024 Hemoglobin A1c measurement HbA1C [facility] Start: 07-05-2024 BP Controlled (<130/80) BP Controlled (<130/80) [facility] Start: 06-21-2024 Hepatitis B screening Urine Albumin:Creatinine Ratio [facility] Start: 06-21-2024 Hepatitis B surface antibody level LDL Cholesterol [facility] Start: 06-12-2024 Annual PCP Team Chronic Disease Visit Annual PCP Team Chronic Disease Visit [facility] Start: 06-12-2024 Diabetic foot examination Diabetic Foot Exam [facility] Start: 06-11-2024 Medicare Advantage Annual Wellness Visit Medicare Advantage Annual Wellness Visit [facility] Start: 05-29-2024 End: 05-29-2024 Patient encounter procedure 05/29/2024 11:00 AM EST Appointment Ambulatory Surgery [address] [place] [address] [place] [address] [place] [address] hx polyps, 2 day prep mailed Ambulatory Surgery Comment on above: hx polyps, 2 day prep mailed Start: 05-02-2024 End: 05-02-2024 Patient encounter procedure 05/02/2024 10:00 AM EST Appointment Ambulatory Surgery [address] [place] [address] Lesly Bender MD [address] [place] [address] COLONOSCOPY Ambulatory Surgery Comment on above: COLONOSCOPY Start: 04-24-2024 End: 04-24-2024 Patient encounter procedure 04/24/2024 1:00 PM EST Office Visit Cardiology [address] [place] [address] Primary hypertension [I10]; Systolic dysfunction without heart failure [I51.89]; Ascending aorta dilatation (HCC) [I77.810] Cardiology Comment on above: Primary hypertension [I10]; Systolic dys function without heart failure [I51.89]; Ascending aorta dilatation (HCC) [I77.810] Start: 04-23-2024 End: 04-23-2025 CBC panel - Blood by Automated count COMPLETE BLOOD COUNT Lab Routine Type 2 diabetes mellitus without complication, without long-term current use of insulin (HCC) Essential hypertension Mixed hyperlipidemia Expected: 04/23/2024, Expires: 04/23/2025 [facility] Comment on above: Expected: 04/23/2024, Expires: Start: 04-23-2024 End: 04-23-2025 Comprehensive metabolic 2000 panel - Serum or Plasma COMPREHENSIVE METABOLIC PANEL Lab Routine Type 2 diabetes mellitus without complication, without long-term current use of insulin (HCC) Essential hypertension Mixed hyperlipidemia Expected: 04/23/2024, Expires: 04/23/2025 [facility] Comment on above: Expected: 04/23/2024, Expires: Start: 04-23-2024 End: 04-23-2025 Hemoglobin A1c in Blood HEMOGLOBIN A1C Lab Routine Type 2 diabetes mellitus without complication, without long-term current use of insulin (HCC) Essential hypertension Mixed hyperlipidemia Expected: 04/23/2024, Expires: 04/23/2025 [facility] Comment on above: Expected: 04/23/2024, Expires: Start: 04-23-2024 End: 04-23-2025 Lipid 1996 panel - Serum or Plasma LIPID PANEL BASIC Lab Routine Type 2 diabetes mellitus without complication, without long-term current use of insulin (HCC) Essential hypertension Mixed hyperlipidemia Expected: 04/23/2024, Expires: 04/23/2025 [facility] Comment on above: Expected: 04/23/2024, Expires: Start: 04-23-2024 End: 04-23-2025 Microalbumin/Creatinine [Mass Ratio] in Urine ALBUMIN/CREATININE RATIO, URINE Lab Routine Type 2 diabetes mellitus without complication, without long-term current use of insulin (HCC) Essential hypertension Mixed hyperlipidemia Expected: 04/23/2024, Expires: 04/23/2025 [facility] Comment on above: Expected: 04/23/2024, Expires: Start: 04-23-2024 End: 07-23-2024 PSA/PROSTATE SPECIFIC ANTIGEN SCREENING PSA/PROSTATE SPECIFIC ANTIGEN SCREENING Lab Routine Screening for prostate cancer Expected: 04/23/2024, Expires: 07/23/2024 [facility] Work Phone: Comment on above: Expected: 04/23/2024, Expires: Start: 04-23-2024 End: 04-23-2025 Thyrotropin [Units/volume] in Serum or Plasma THYROID STIMULATING HORMONE Lab Routine Type 2 diabetes mellitus without complication, without long-term current use of insulin (HCC) Essential hypertension Mixed hyperlipidemia Expected: 04/23/2024, Expires: 04/23/2025 [facility] Comment on above: Expected: 04/23/2024, Expires: Start: 04-18-2024 End: 04-18-2024 Anesthesia consultation 04/18/2024 11:59 PM EST Anesthesia Event Ambulatory Surgery [address] [place] [address] Dasha Urrutia, TU.[employer]PA[employer] [address] [place] [address] Ambulatory Surgery Start: 04-17-2024 End: 04-17-2024 Patient encounter procedure 04/17/2024 11:30 AM EST Office Visit Cardiology [address] [place] [address] [place] [address] [place] [address] follow up Cardiology Comment on above: follow up Start: 03-27-2024 End: 03-27-2024 Patient encounter procedure Ambulatory Surgery Comment on above: diag colonoscopy Start: 03-19-2024 End: 03-19-2024 Patient encounter procedure 03/19/2024 2:30 PM EDT Office Visit Cardiology [address] [place] [address] Sunshine Duckworth APRN.[employer] [address] [place] [address] 9 month follow up reschedule Cardiology Comment on above: 9 month follow up reschedule Start: 03-19-2024 End: 03-19-2025 Echocardiography ECHO Cardiology Routine Primary hypertension 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 (HCC) Expected: 03/19/2024, Expires: 03/19/2025 [facility] Work Phone: Comment on above: Expected: 03/19/2024, Expires: Start: 03-18-2024 End: 03-18-2024 Patient encounter procedure 03/18/2024 2:00 PM EDT Office Visit Cardiology [address] [place] [address] [place] [address] [place] [address] 9 mo f/u Cardiology Comment on above: 9 mo f/u Start: 03-17-2024 End: 03-17-2024 Patient encounter procedure 03/17/2024 1:00 PM EDT Office Visit Dermatology [address] [place] [phone] Jatin Garrett MD [address] [place] [address] Mohs: SCC right dorsal hand, 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 Dermatology Comment on above: Mohs: SCC right dorsal hand, 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 Start: 03-11-2024 End: 03-11-2024 Patient encounter procedure 03/11/2024 8:45 AM EDT Office [place] [address] colonoscopy 03-27-24 [facility] Comment on above: colonoscopy 03-27-24 Start: 02-29-2024 End: 02-29-2024 Nutrition therapy 02/29/2024 1:45 PM EDT Education Nutrition Therapy [address] [address] Jennifer Barrera, RD [address] [place] [address] diabetic Nutrition Therapy Comment on above: diabetic Start: 02-10-2024 Covid-19 Vaccine () Covid-19 Vaccine () [facility] Start: 02-10-2024 Covid-19 Vaccine () Covid-19 Vaccine () [facility] Start: 02-10-2024 Influenza vaccination [facility] Start: 02-08-2024 End: 02-08-2024 Patient encounter procedure Neurology Comment on above: F/U F/U; NO MOCA Start: 01-31-2024 BP CONTROLLED (<130/80) BP CONTROLLED (<130/80) [facility] inic Start: 01-11-2024 End: 01-11-2024 Patient encounter procedure 01/11/2024 1:00 PM EDT Office Visit Dermatology [facility] [address] [place] [address] Анна Perez PA-C [address] [place] [address] FBSE Dermatology [facility] Comment on above: FBSE Start: 01-09-2024 End: 01-09-2024 Patient encounter procedure Endocrinology Comment on above: 6 month follow up 12 day suture remova l Start: 01-04-2024 End: 01-04-2024 Patient encounter procedure 01/04/2024 3:10 PM EDT Office Visit [address] [id number] Toni Duran APRN.[facility] [address] [place], [place] [phone] f/u med appt Family [facility] Comment on above: f/u med appt Start: 12-28-2023 End: 12-28-2023 Patient encounter procedure Endocrinology Comment on above: Type 2 diabetes mellitus with hyperglyce boone, 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 group home insul... Start: 12-26-2023 End: 12-26-2023 Patient encounter procedure Dermatology Comment on above: Mohs: SCC, left forearm - anterior, 3 pt s Start: 12-20-2023 Hemoglobin A1c measurement HbA1C [facility] Start: 12-16-2023 BP CONTROLLED (<130/80) BP CONTROLLED (<130/80) [facility] Start: 12-09-2023 Influenza vaccination Influenza Vaccine (#1) [facility] Comment on above: Postponed from 02/09/2023 (Declined at t his time) Start: 12-03-2023 End: 12-03-2023 Patient encounter procedure 12/03/2023 3:00 PM EDT Office Visit Podiatry [address] [place] [address] Ivan Frederick [address] [place] [address] Onychomycosis [B35.1 Podiatry Comment on above: Onychomycosis [B35.1 Start: 11-08-2023 End: 11-08-2023 Patient encounter procedure 11/08/2023 11:00 AM EDT Office Visit Neurology [address] [place] [address] Taiwo Lee MD [address] [place] [address] F/U; NO MOCA?? Neurology Comment on above: F/U; NO MOCA?? Start: 10-11-2023 ANNUAL PCP TEAM CHRONIC DISEASE VISIT ANNUAL PCP TEAM CHRONIC DISEASE VISIT [facility] Start: 10-11-2023 BP CONTROLLED (<130/80) BP CONTROLLED (<130/80) [facility] Start: 09-23-2023 ANNUAL PCP TEAM CHRONIC DISEASE VISIT ANNUAL PCP TEAM CHRONIC DISEASE VISIT [facility] Start: 09-23-2023 BP CONTROLLED (<130/80) BP CONTROLLED (<130/80) [facility] Start: 07-28-2023 Covid-19 Vaccine () Covid-19 Vaccine () [facility] Start: 06-11-2023 Behavioral Health Screening Behavioral Health Screening [facility] Start: 06-11-2023 Depression Assessment Depression Assessment [facility] Start: 04-12-2023 ANNUAL PCP TEAM CHRONIC DISEASE VISIT ANNUAL PCP TEAM CHRONIC DISEASE VISIT [facility] Start: 04-12-2023 BP CONTROLLED (<130/80) BP CONTROLLED (<130/80) [facility] Start: 02-09-2023 Covid-19 Vaccine () Covid-19 Vaccine () [facility] Start: 02-09-2023 Influenza vaccination [facility] Start: 01-30-2023 Hemoglobin A1c measurement HbA1C [facility] Start: 01-30-2023 Hemoglobin A1c/Hemoglobin.total in Blood HBA1C [facility] Start: 01-09-2023 BP CONTROLLED (<130/80) BP CONTROLLED (<130/80) [facility] Start: 12-21-2022 3 comp foot exam completed DIABETIC FOOT EXAM [facility] Start: 12-21-2022 BP CONTROLLED (<130/80) BP CONTROLLED (<130/80) [facility] Start: 12-21-2022 Diabetic foot examination Diabetic Foot Exam [facility] Start: 11-28-2022 End: 01-28-2023 ALBUMIN/CREAT RATIO RND UR ALBUMIN/CREAT RATIO RND UR Lab Routine Type 2 diabetes mellitus with hyperglycemia (HCC) Expected: 11/28/2022, Expires: 01/28/2023 [facility] Work Phone: Comment on above: Expected: 11/28/2022, Expires: 3 Start: 11-11-2022 BP CONTROLLED (<130/80) BP CONTROLLED (<130/80) [facility] Start: 10-12-2022 BP CONTROLLED (<130/80) BP CONTROLLED (<130/80) [facility] Start: 10-03-2022 Hemoglobin A1c/Hemoglobin.total in Blood HBA1C [facility] Start: 09-13-2022 BP CONTROLLED (<130/80) BP CONTROLLED (<130/80) [facility] inic Start: 09-06-2022 COVID-19 VACCINE (2 - Pfizer series) COVID-19 VACCINE (2 - Pfizer series) [facility] Start: 07-23-2022 Hepatitis B surface antibody level LDL CHOLESTEROL [facility] Start: 06-23-2022 Hemoglobin A1c/Hemoglobin.total in Blood HBA1C [facility] Start: 06-16-2022 Glaucoma screening Dilated Retinal Exam [facility] Start: 06-16-2022 Hepatitis C antibody, confirmatory test DILATED RETINAL EXAM [facility] Start: 06-11-2022 ADVANCE DIRECTIVE DISCUSSION ADVANCE DIRECTIVE DISCUSSION [facility] Start: 06-11-2022 DEPRESSION ASSESSMENT DEPRESSION ASSESSMENT [facility] Start: 05-30-2022 COVID-19 VACCINE (2 - Pfizer risk series) COVID-19 VACCINE (2 - Pfizer risk series) [facility] Start: 05-30-2022 COVID-19 VACCINE (2 - Pfizer series) COVID-19 VACCINE (2 - Pfizer series) [facility] Start: 05-16-2022 End: 03-01-2023 Duplex scan extracranial art compl bi study US CAROTID BILAT Radiology Routine Stenosis of right carotid artery Expected: 05/16/2022, Expires: 03/01/2023 [facility] Work Phone: Comment on above: Expected: 05/16/2022, Expires: 3 Start: 04-12-2022 End: 06-12-2022 ALBUMIN/CREAT RATIO RND UR ALBUMIN/CREAT RATIO RND UR Lab Routine Type 2 diabetes mellitus with hyperglycemia, without long-term current use of insulin (HCC) Expected: 04/12/2022, Expires: 06/12/2022 [facility] Work Phone: Comment on above: Expected: 04/12/2022, Expires: 3 Start: 03-02-2022 End: 05-02-2022 ASPIRIN/CLOPIDOGREL RESISTANCE ASPIRIN/CLOPIDOGREL RESISTANCE Lab Routine Stenosis of right carotid artery Expected: 03/02/2022, Expires: 05/02/2022 [facility] Work Phone: Comment on above: Expected: 03/02/2022, Expires: 2 Start: 03-02-2022 End: 05-02-[address] LUPUS ANTICOAG PL Lab Routine Stenosis of right carotid artery Expected: 03/02/2022, Expires: 05/02/2022 [facility] Work Phone: Comment on above: Expected: 03/02/2022, Expires: 2 Start: 02-09-2022 Influenza vaccination [facility] Start: 12-05-2021 End: 02-04-2022 CBC W Auto Differential panel - Blood CBC + DIFF Lab STAT Thrombocytopenia (HCC) Expected: 12/05/2021, Expires: 02/04/2022 [facility] Work Phone: Comment on above: Expected: 12/05/2021, Expires: 2 Start: 11-11-2021 End: 01-11-2022 aPTT in Platelet poor plasma by Coagulation assay [facility] Work Phone: Comment on above: Expected: 11/11/2021, Expires: 2 Start: 11-11-2021 End: 01-11-2022 B 2 GPI IGG & IGM [facility] Work Phone: Comment on above: Expected: 11/11/2021, Expires: 2 Start: 11-11-2021 End: 01-11-2022 Cardiolipin IgG and IgM panel - Serum [facility] Work Phone: Comment on above: Expected: 11/11/2021, Expires: 2 Start: 11-11-2021 End: 01-11-2022 Chronic hepatitis differentiation between hepatitis B and C virus panel - Serum or Plasma [facility] Work Phone: Comment on above: Expected: 11/11/2021, Expires: 2 Start: 11-11-2021 End: 01-11-2022 MAE DIRECT [facility] Work Phone: Comment on above: Expected: 11/11/2021, Expires: 2 Start: 11-11-2021 End: 01-11-2022 COPPER BLOOD [facility] Work Phone: Comment on above: Expected: 11/11/2021, Expires: 2 Start: 11-11-2021 End: 01-11-2022 Fibrinogen [Mass/volume] in Platelet poor plasma by Coagulation assay [facility] Work Phone: Comment on above: Expected: 11/11/2021, Expires: 2 Start: 11-11-2021 End: 01-11-2022 Haptoglobin [Mass/volume] in Serum or Plasma [facility] Work Phone: Comment on above: Expected: 11/11/2021, Expires: 2 Start: 11-11-2021 End: 01-11-2022 HIV 1+2 Ab [Presence] in Serum or Plasma by Immunoassay [facility] Work Phone: Comment on above: Expected: 11/11/2021, Expires: 2 Start: 11-11-2021 End: 01-11-2022 PT panel - Platelet poor plasma by Coagulation assay [facility] Work Phone: Comment on above: Expected: 11/11/2021, Expires: 2 Start: 11-11-2021 End: 01-11-2022 RBC FOLATE [facility] Work Phone: Comment on above: Expected: 11/11/2021, Expires: 2 Start: 11-11-2021 End: 01-11-2022 VITAMIN B12 BLOOD [facility] Work Phone: Comment on above: Expected: 11/11/2021, Expires: 2 Start: 10-21-2021 Hemoglobin A1c/Hemoglobin.total in Blood HBA1C [facility] Start: 06-11-2021 ADVANCE DIRECTIVE DISCUSSION ADVANCE DIRECTIVE DISCUSSION [facility] Start: 02-09-2021 Influenza vaccination INFLUENZA (#1) [facility] Start: 01-29-2020 Adult depression screening assessment DEPRESSION SCREENING [facility] Start: 2014 PNEUMOVAX AGE 65 AND OVER WITH 5YR LOOKBACK (#1) PNEUMOVAX AGE 65 AND OVER WITH 5YR LOOKBACK (#1) [facility] Start: 2009 Hepatitis B Vaccine (1 of 3 - Risk 3-dose series) Hepatitis B Vaccine (1 of 3 - Risk 3-dose series) [facility] Start: 2009 RSV Vaccine (1 - 1-dose 60+ series) RSV Vaccine (1 - 1-dose 60+ series) [facility] Start: 1999 SHINGRIX VACCINE (1 of 2) SHINGRIX VACCINE (1 of 2) [facility] Start: 1994 COLOGUARD (FIT-DNA) COLOGUARD (FIT-DNA) [facility] Start: 1994 Colonoscopy COLONOSCOPY [facility] Start: 1994 COLORECTAL CANCER SCREENING COLORECTAL CANCER SCREENING [facility] Start: [address] COLONOGRAPHY [facility] Start: 1994 FECAL OCCULT BLOOD FECAL OCCULT BLOOD [facility] Start: 1994 Screening for malignant neoplasm of colon [facility] Start: 1994 SIGMOIDOSCOPY SIGMOIDOSCOPY [facility] Start: 1968 SHINGRIX VACCINE (1 of 2) SHINGRIX VACCINE (1 of 2) [facility] Start: 1968 Urine microalbumin profile [facility] Start: 1967 ANNUAL PCP TEAM CHRONIC DISEASE VISIT ANNUAL PCP TEAM CHRONIC DISEASE VISIT [facility] Start: 1967 Anxiety Screening Anxiety Screening [facility] Start: 1967 BP CONTROLLED (<130/80) BP CONTROLLED (<130/80) [facility] Start: 1967 Depression Screening Depression Screening [facility] Start: 1967 HEPATITIS C SCREENING HEPATITIS C SCREENING [facility] Start: 1961 COVID-19 VACCINE (1) COVID-19 VACCINE (1) [facility] Start: 1959 3 comp foot exam completed DIABETIC FOOT EXAM [facility] Start: 1959 Hepatitis B screening URINE ALBUMIN:CREATININE RATIO [facility] Start: 1955 PNEUMOCOCCAL: 65+ (1 - PCV) PNEUMOCOCCAL: 65+ (1 - PCV) [facility] Start: 1954 COVID-19 VACCINE (#1) COVID-19 VACCINE (#1) [facility] Start: [birth year]-24-1950 COVID-19 VACCINE (#1) COVID-19 VACCINE (#1) [facility] Start: 1949 ABDOMINAL AORTIC ANEURYSM SCREENING ABDOMINAL AORTIC ANEURYSM SCREENING [facility] BONE MARROW ANALYSIS BONE MARROW ANALYSIS Lab Routine Autoimmune hemolytic anemia (HCC) 01/06/2025 2:40 PM EDT [facility] Work Phone: BONE MARROW CHROMOSO ME ANAL BONE MARROW CHROMOSOME ANAL Lab Routine Autoimmune hemolytic anemia (HCC) 01/06/2025 2:57 PM EDT [facility] End: 02-19-2026 CBC W Auto Differential panel - Blood COMPLETE BLOOD COUNT AND DIFFERENTIAL Lab Routine Mantle cell lymphoma, unspecified body region (HCC) Autoimmune hemolytic anemia (HCC) Once per week for 12 Occurrences starting 02/19/2025 until 02/19/2026 [facility] Work Phone: Comment on above: Once per week for 12 Occurrences startin g 02/19/2025 until 02/19/2026 CBC W Ordered Manual Differential panel - Blood PATHOLOGIST INTERPRETATION WITH CBC AND DIFF Lab STAT Thrombocytopenia (HCC) 11/11/2021 3:02 PM EDT [facility] Work Phone: COLOGUARD COLOGUARD Lab Ro utine Screening for colon cancer Ordered: 04/12/2022 [facility] Work Phone: Comment on above: Ordered: 04/12/2022 End: 02-19-2026 Comprehensive metabolic 2000 panel - Serum or Plasma COMPREHENSIVE METABOLIC PANEL Lab Routine Mantle cell lymphoma, unspecified body region (HCC) Once per week for 12 Occurrences starting 02/19/2025 until 02/19/2026 [facility] Comment on above: Once per week for 12 Occurrences startin g 02/19/2025 until 02/19/2026 DNA EXTRACTION BONE MARROW (BUFFY COAT) DNA EXTRACTION BONE MARROW (BUFFY COAT) Lab Routine Autoimmune hemolytic anemia (HCC) 01/06/2025 2:57 PM EDT [facility] End: 11-11-2022 Duplex scan extracranial art compl bi study US CAROTID BILAT Radiology Routine Stenosis of right carotid artery 1 Occurrences starting 10/12/2021 until 11/11/2022 [facility] Work Phone: Comment on above: 1 Occurrences starting 10/12/2021 until 11/11/2022 End: 11-24-2022 Duplex scan extracranial art compl bi study US CAROTID BILAT Radiology Routine Stenosis of right carotid artery 1 Occurrences starting 10/25/2021 until 11/24/2022 [facility] Work Phone: Comment on above: 1 Occurrences starting 10/25/2021 until 11/24/2022 End: 12-16-2023 Echocardiography ECHO Cardiology Routine Cardiomyopathy, ischemic 1 Occurrences starting 12/15/2022 until 12/16/2023 [facility] Work Phone: Comment on above: 1 Occurrences starting 12/15/2022 until 12/16/2023 End: 09-10-2025 Flexible sigmoidoscopy study COLONOSCOPY DIAGNOSTIC Endoscopy Routine History of colonic polyps Abnormal findings on examination of gastrointestinal tract Diarrhea, unspecified type 1 Occurrences starting 09/10/2024 until 09/10/2025 [facility] Work Phone: Comment on above: 1 Occurrences starting 09/10/2024 until 09/10/2025 FLOW CYTOMETRY FOR LEUKEMIA/LYMPHOMA (FCLL) FLOW CYTOMETRY FOR LEUKEMIA/LYMPHOMA (FCLL) Lab Routine Autoimmune hemolytic anemia (HCC) 01/06/2025 2:57 PM T [facility] End: 01-19-2025 FLOW CYTOMETRY FOR LEUKEMIA/LYMPHOMA (FCLL) [facility] Comment on above: ONCE for 1 Occurrences starting 01/20/20 until 01/19/2025 FLOW CYTOMETRY FOR LEUKEMIA/LYMPHOMA (FCLL) PERFORMABLE FLOW CYTOMETRY FOR LEUKEMIA/LYMPHOMA (FCLL) PERFORMABLE Lab Routine Autoimmune hemolytic anemia (HCC) 01/06/2025 2:57 PM EDT [facility] End: 01-19-2025 FLOW CYTOMETRY FOR LEUKEMIA/LYMPHOMA (FCLL) PERFORMABLE [facility] Comment on above: Once for 1 Occurrences starting 01/20/20 until 01/19/2025 End: 01-19-2025 FLOW CYTOMETRY FOR LEUKEMIA/LYMPHOMA (FCLL) REFLEX [facility] Comment on above: ONCE for 1 Occurrences starting 01/20/20 until 01/19/2025 FLT3 ITD HN BONE MARROW FLT3 ITD HN BONE MARROW Lab Routine Autoimmune hemolytic anemia (HCC) 01/06/2025 2:57 PM EDT [facility] Guidance for biopsy of Lymph node IMAGING GUIDED BIOPSY CERVICAL LYMPH NODE Radiology Routine Localized enlarged lymph nodes Ordered: 01/06/2025 [facility] Work Phone: Comment on above: Ordered: 01/06/2025 End: 05-22-2023 Mra neck w/o &w/contrast material MRA CAROTID WO/W IVCON Radiology Routine Occlusion and stenosis of unspecified carotid artery 1 Occurrences starting 04/22/2022 until 05/22/2023 [facility] Work Phone: Comment on above: 1 Occurrences starting 04/22/2022 until 05/22/2023 MYELOID NGS PANEL DIVYA NE MARROW MYELOID NGS PANEL BONE MARROW Lab Routine Autoimmune hemolytic anemia (HCC) 01/06/2025 2:57 PM EDT [facility] End: 02-19-2026 Phosphate [Mass/volume] in Serum or Plasma PHOSPHORUS INORGANIC Lab Routine Mantle cell lymphoma, unspecified body region (HCC) Once per week for 12 Occurrences starting 02/19/2025 until 02/19/2026 [facility] Comment on above: Once per week for 12 Occurrences startin g 02/19/2025 until 02/19/2026 End: 05-05-2025 Screening colonoscopy COLONOSCOPY SCREENING Endoscopy Routine History of colonic polyps 1 Occurrences starting 05/05/2024 until 05/05/2025 [facility] Work Phone: Comment on above: 1 Occurrences starting 05/05/2024 until 05/05/2025 SURGICAL PATHOLOGY [facility] Work Phone: Comment on above: Release Upon Ordering for 1 Occurrences starting 10/31/2023, 1 completed SURGICAL PATHOLOGY [facility] Work Phone: Comment on above: Release Upon Ordering for 1 Occurrences starting 01/11/2024 SURGICAL PATHOLOGY [facility] Work Phone: Comment on above: Release Upon Ordering for 1 Occurrences starting 05/29/2024, 1 completed End: 01-19-2025 Tissue Pathology biopsy report [facility] Work Phone: Comment on above: ONCE for 1 Occurrences starting 01/20/20 until 01/19/2025, 1 completed End: 02-19-2026 TYPE + SCREEN TYPE + SCREEN Blood Bank Routine Mantle cell lymphoma, unspecified body region (HCC) Autoimmune hemolytic anemia (HCC) Once per week for 12 Occurrences starting 02/19/2025 until 02/19/2026 [facility] Comment on above: Once per week for 12 Occurrences startin g 02/19/2025 until 02/19/2026 End: 02-19-2026 Urate [Mass/volume] in Serum or Plasma URIC ACID Lab Routine Mantle cell lymphoma, unspecified body region (HCC) Once per week for 12 Occurrences starting 02/19/2025 until 02/19/2026 [facility] Comment on above: Once per week for 12 Occurrences startin g 02/19/2025 until 02/19/2026 End: 05-12-2023 Us abdominal aorta real time screen study aaa US SCREENING FOR AAA Radiology Routine Screening for abdominal aortic aneurysm 1 Occurrences starting 04/12/2022 until 05/12/2023 [facility] Work Phone: Comment on above: 1 Occurrences starting 04/12/2022 until 05/12/2023 End: 12-11-2022 Us abdominal real time w/image limited US ABD RT UPPER QUADRANT Radiology Routine Thrombocytopenia (HCC) 1 Occurrences starting 11/11/2021 until 12/11/2022 [facility] Work Phone: Comment on above: 1 Occurrences starting 11/11/2021 until 12/11/2022 [facility] T [facility] Immunizations Immunization Date Immunization Notes Care Provider Orion amaral 04-12-2022 influenza, high-dose , quadrivalent vaccine (FLUZONE HIGH DOSE QUADRIVALENT) [facility] DO Work Phone: [facility] 04-12-2022 pneumococcal (PCV20) vaccine, 20 valent (PREVNAR 20) [facility] DO Work Phone: [facility] 04-12-2022 pneumococcal Conjuga te, unspecified formulation [facility] DO Work Phone: [facility] Work Phone: 04-12-2022 influenza virus vaccine, unspecified formulation [facility] Payers Date Payer Category Payer Medicare (Managed Care) 1.2. [id number] 2022 Medicaid [id number] 2022 Private Health Insurance [id number] 2021 Medicaid [id number] 2018 Medicare HUMANA MEDICARE HUMANA [facility] PREFERRED HMO [id number] 2018-Present [phone] [address] [address] [address] [id number] 2018 Medicare [id number] 1949 Unknown [id number] 1949 Unknown [id number] 1949 Unknown [id number] 1949 Unknown [id number] Private Health Insurance Unknown Social History Date Type Detail Facility Start: 07-20-2011 Tobacco smoking stat us MDIS Occasional tobacco smoker [facility] End: 10-03-2021 History of tobacco use Cigar Smoker [facility] Start: 07-20-2011 End: 10-23-2022 Cigarettes smoked current (pack per day) - Reported 0.5 [facility] Work Phone: Start: 07-20-2011 End: 01-14-2025 Tobacco use and exposure Smokeless tobacco non-user [facility] Start: 09-20-2020 End: 08-03-2021 Alcohol intake Current drinker of alcohol (finding) [facility] Start: 1950 Sex Assigned At Not on file [facility] Start: 08-21-2020 End: 05-05-2022 Exposure to SARS-CoV-2 (event) Not sure [facility] Start: 10-25-2021 End: 01-14-2025 Tobacco smoking status NHIS Ex-smoker [facility] End: 10-03-2021 History of tobacco use Current smoker [facility] Start: 11-11-2021 End: 02-20-2025 Alcohol intake Ex-drinker (finding) [facility] End: 10-03-2021 History of tobacco use Cigarette Smoker [facility] Start: 01-30-2022 End: 03-17-2024 Tobacco smoking status [facility] Smokes tobacco daily [facility] Start: 10-23-2022 End: 12-15-2022 Tobacco use panel [facility] Work Phone: Start: 05-12-2012 Adult Depression Screening Assessment 0 [facility] Work Phone: Has the [employer], or water company threatened to shut off services in your home in past 12Mo No [facility] (I/We) worried wheth er (my/our) food would run out before (I/we) got money to buy more. Never true [facility] Start: 1950 Sex assigned at [facility] Start: 01-14-2025 Gender identity Identifies as male gender (finding) [facility] Start: 02-09-2025 Unknown if ever smoked [facility] Procedure Code Equipment Code Equipment Origin al Text Equipment Identifier Dates [id number], [id number], [id number] Start: 10-21-2021 End: 01-04-2024 Comment on above: 20 Units twice daily . Goals Date Patient Goal Desired Activity /State Personal health goal Functional Status Date Assessment Result Facility 01-28-2025 Are you deaf, or do you have serious difficulty hearing No 01/28/2025 10:13 AM Nimesh Brian RN No [facility] 01-28-2025 Are you blind, or do you have serious difficulty seeing, even when wearing glasses No 01/28/2025 10:13 AM Nimesh Brian RN No [facility] 01-28-2025 Do you have serious difficulty walking or climbing stairs No 01/28/2025 10:13 AM Nimseh Brian RN No [facility] 01-28-2025 Do you have difficul ty dressing or bathing Yes 01/28/2025 10:13 AM Nimesh Brian RN Yes [facility] 01-28-2025 Because of a physica l, mental, or emotional condition, do you have difficulty doing errands alone such as visiting a physician's office or shopping No 01/28/2025 10:13 AM Nimesh Brian RN No [facility] 01-12-2025 Are you deaf, or do you have serious difficulty hearing No 01/12/2025 9:00 PM Sonia Campo RN No [facility] 01-12-2025 Are you blind, or do you have serious difficulty seeing, even when wearing glasses No 01/12/2025 9:00 PM Sonia Campo RN No [facility] 01-12-2025 Do you have serious difficulty walking or climbing stairs Yes 01/12/2025 9:00 PM Sonia Campo RN Yes [facility] 01-12-2025 Do you have difficul ty dressing or bathing Yes 01/12/2025 9:00 PM Sonia Campo RN Yes [facility] 01-12-2025 Because of a physica l, mental, or emotional condition, do you have difficulty doing errands alone such as visiting a physician's office or shopping Yes 01/12/2025 9:00 PM Sonia Campo RN Yes [facility] 08-16-2021 Are you deaf, or do you have serious difficulty hearing No 08/16/2021 7:15 PM Мария Almonte RN No [facility] 08-16-2021 Are you blind, or do you have serious difficulty seeing, even when wearing glasses No 08/16/2021 7:15 PM Мария Almonte RN No [facility] 08-16-2021 Do you have serious difficulty walking or climbing stairs Yes 08/16/2021 7:15 PM Мария Almonte RN Yes [facility] 08-16-2021 Do you have difficul ty dressing or bathing Yes 08/16/2021 7:15 PM Мария Almonte RN Yes [facility] 08-16-2021 Because of a physica l, mental, or emotional condition, do you have difficulty doing errands alone such as visiting a physician's office or shopping Yes 08/16/2021 7:15 PM Мария Almonte RN Yes [facility] Mental Status Date Assessment Result Facility 01-28-2025 Because of a physica l, mental, or emotional condition, do you have serious difficulty concentrating, remembering, or making decisions No 01/28/2025 10:13 AM Nimesh Brian RN No [facility] 01-12-2025 Because of a physica l, mental, or emotional condition, do you have serious difficulty concentrating, remembering, or making decisions Yes 01/12/2025 9:00 PM Sonia Campo RN Yes [facility] 08-16-2021 Because of a physica l, mental, or emotional condition, do you have serious difficulty concentrating, remembering, or making decisions Yes 08/16/2021 7:15 PM Мария Almonte RN Yes [facility] Clinical Notes 09-20-2020 to 04-23-2025 Telephone Encounter - Norah Candelario MD - 02/23/2025 4:38 PM EDTTelephone Encounter - Norah Candelario MD - 02/23/2025 4:38 PM EDTTelephone Encounter - Neyda Velarde RN - 02/20/2025 1:57 PM EDT Note Date & Type Note Facility 04-23-2025 Note [facility] 04-21-2025 Note [facility] 04-21-2025 Note [facility] 04-20-2025 Note [facility] 04-19-2025 Note [facility] 04-19-2025 Note [facility] 04-18-2025 Note [facility] 04-18-2025 Note [facility] 04-18-2025 Note [facility] 04-17-2025 Note [facility] 04-17-2025 Note [facility] 04-16-2025 Note [facility] 04-16-2025 Note [facility] 04-15-2025 Note [facility] 04-15-2025 Note [facility] 04-15-2025 Note [facility] 04-14-2025 Note [facility] 04-14-2025 Note [facility] 04-13-2025 Note [facility] 04-12-2025 Note [facility] 04-12-2025 Note [facility] 04-12-2025 Note [facility] 04-11-2025 Note [facility] 04-11-2025 Note [facility] 04-11-2025 Note [facility] 04-11-2025 Note [facility] 04-10-2025 Note [facility] 04-10-2025 Note HNO ID: [id number] Author: JOSHUA RABAGO MD Service: Gastroenterology Author Type: Physician Type: Progress Notes Filed: 04/11/2025 00:01 Note Text: GI BRIEF NOTE: GI signed off. Please re-consult if needed. Joshua Rabago MD [facility] 04-09-2025 Note [facility] 04-09-2025 Note [facility] 04-08-2025 Note [facility] 04-08-2025 Note [facility] 04-07-2025 Note [facility] 04-07-2025 Note [facility] 04-06-2025 Note [facility] 04-06-2025 Note [facility] 04-06-2025 Note [facility] 04-06-2025 Note [facility] 04-05-2025 Note [facility] 04-05-2025 Note [facility] 04-04-2025 Note [facility] 04-03-2025 Note [facility] 04-02-2025 Note [facility] 04-02-2025 Note [facility] 04-01-2025 Note [facility] 04-01-2025 Note [facility] 03-10-2025 Note [facility] 03-10-2025 Note [facility] 03-05-2025 Note [facility] 03-05-2025 Note [facility] 03-05-2025 Note [facility] 03-05-2025 Note [facility] 03-02-2025 Note [facility] 02-23-2025 Telephone encounter Note Called pt on listed mobile number, pt reports wound is healing well, no discharge noticed. Getting dressed daily. No joint pains or new rashes. Discussed about elevated wbc of 27 and chances of Brukinsa causing it. Advised pt if notices any fever, tiredness or new weakness to go nearest ER or urgent care. Will schedule a follow up with his pcp in am. [facility] 02-23-2025 Miscellaneous Notes Called pt on listed mobile number, pt reports wound is healing well, no discharge noticed. Getting dressed daily. No joint pains or new rashes. Discussed about elevated wbc of 27 and chances of Brukinsa causing it. Advised pt if notices any fever, tiredness or new weakness to go nearest ER or urgent care. Will schedule a follow up with his pcp in am. documented in this encounter [facility] 02-20-2025 Telephone encounter Note Spoke with Mrs Duncan- who was very tearful- Pt was scratched by Dog - started bleeding- now has a bluish color - deep bruise- along with multiple bruising- on different extremities- concerned about current chemotherapy medication prescribed by outside oncologist Has called primary oncologist without response- inquiring from Dr Braxton about a referral to a local oncologist in [place]- . This nurse suggested Shainaloy-call their PCP to have Pt's arm evaluated to be sure there is no infection- or need for an antibiotic. Mrs. Barone is agreeable to plan- this nurse will route this phone encounter to Dr. Braxton for oncology referral. Someone from our office will call with any updates- will continue to monitor [facility] 02-20-2025 Miscellaneous Notes Spoke with Mrs Duncan- who was very tearful- Pt was scratched by Dog - started bleeding- now has a bluish color - deep bruise- along with multiple bruising- on different extremities- concerned about current chemotherapy medication prescribed by outside oncologist Has called primary oncologist without response- inquiring from Dr Braxton about a referral to a local oncologist in [place]- . This nurse suggested Mrs Barone-call their PCP to have Pt's arm evaluated to be sure there is no infection- or need for an antibiotic. Mrs. Barone is agreeable to plan- this nurse will route this phone encounter to Dr. Braxton for oncology referral. Someone from our office will call with any updates- will continue to monitor documented in this encounter [facility] 02-20-2025 Instructions Norah Candelario MD - 02/20/2025 1:04 PM EDT Keep wound clean, dress daily. If wound gets bigger or starts draining, call our office. If develops fever or chills, go to ER immediately. documented in this encounter [facility] 02-20-2025 Note [facility] 02-20-2025 History of Present illness Narrative Images from the original note were not included. Primary Care Office Visit Note February 20, 2025 PRIMARY CARE PHYSICIAN: Samm Kc DO CHIEF COMPLAINT: Patient presents with: Abrasion: Left arm. Pt's dog scratched him the other day. HPI: This is a 74 year old male who presents with open wound on L arm dorsal aspect after his dog scratched him. Pt reports pain at injury site but ablel to move his L wrist and L shoulder. No other scratch sites. Pt has h/o of MCL and has been recently started on Brukinsa by [facility]. Since then he has noticed bruises on his bilateral arms. His contacted [facility] and were asked to continue current dose. Pt denies any fever or chills. No other complaints. ALLERGIES No Known Allergies BP 103/64 Pulse 79 Temp 36.4 C (97.6 F) Wt 77.3 kg (170 lb 4.9 oz) SpO2 98% BMI 24.44 kg/m Depression: Not at risk (04/23/2024) PHQ-2 PHQ-2 Score: 0 04/23/2024 PHQ-9 PHQ-2 Score 0 PHQ-9 Score 1 Generalized Anxiety Disorder Questionnaire (GABBIE-7) Physical Exam L arm- open wound 5cm x 1cm in mid dorsal aspect, no purulent discharge, no surrounding erythema or tenderness noted. Multiple bruises and petechia noticed on b/l arms. Range of movements of L shoulder and L wrist good and no pain. ASSESSMENT & PLAN: L ARM dog scratch- no signs of inf at this time, dressing changed, pt has home health, will need daily dressings. Will start on 1 week course of augmentin 875mg bid. Recommended pt to go to ER if notices any purulent drainage or develops fever/ chills. Follow up with our office prn for any further issues. Immunocompromised state- Bruises and multiple petechia- likely due to brukinsa, pt advised to get cbc for hb and platelets and ordered. Norah Candelario MD documented in this encounter [facility] 02-19-2025 Telephone encounter Note Images from the original note were not included. [facility] Department of Hematology and Oncology After Hours Documentation February 19, 2025 , 7:00 PM Primary Thermometer Production Worker/Oncologist: Dr. Braxton Heme/onc Diagnosis: Mantle cell lymphoma Tere Barone's called me regarding red spots that have appeared on his arms since starting the zanubrutinib last week. She asked if he should give him the zanubrutinib tonight. Denies other symptoms including fevers, chills, or Shortness of Breath. I recommended he continues taking it. I told her I will send in a hydrocortisone cream script to the pharmacy and asked to apply it to the affected areas. Advised to call back or go to the nearest ED if symptoms persist or worsen. She voiced understanding of the plan. Austyn Baird MD Hematology and Oncology Fellow On-call pager: [phone] [facility] 02-19-2025 Miscellaneous Notes Images from the original note were not included. [facility] Department of Hematology and Oncology After Hours Documentation February 19, 2025 , 7:00 PM Primary Thermometer Production Worker/Oncologist: Dr. Braxton Heme/onc Diagnosis: Mantle cell lymphoma Tere Barone's called me regarding red spots that have appeared on his arms since starting the zanubrutinib last week. She asked if he should give him the zanubrutinib tonight. Denies other symptoms including fevers, chills, or Shortness of Breath. I recommended he continues taking it. I told her I will send in a hydrocortisone cream script to the pharmacy and asked to apply it to the affected areas. Advised to call back or go to the nearest ED if symptoms persist or worsen. She voiced understanding of the plan. Austyn Baird MD Hematology and Oncology Fellow On-call pager: [phone] documented in this encounter [facility] 02-19-2025 Telephone encounter Note I left message on Bg phone to get labs done once weekly starting today that we can see response to Brukinsa and also status of anemia and all blood counts Orders Signed This Visit (5) COMPLETE BLOOD COUNT AND DIFFERENTIAL Standing, Expires: 02/19/2026, Manual-release, Interval: Once per week, Count: 12, Lab Collect, Routine, Specimen Types - Blood;, Specimen Sources - Blood;, Resulting Agency - [facility], Dx: 1. Mantle cell lymphoma, unspecified body region (HCC) 2. Autoimmune hemolytic anemia (HCC), New collection COMPREHENSIVE METABOLIC PANEL Standing, Expires: 02/19/2026, Manual-release, Interval: Once per week, Count: 12, Lab Collect, Routine, Specimen Types - Blood;, Specimen Sources - Blood;, Resulting [facility], Dx: 1. Mantle cell lymphoma, unspecified body region (HCC), New collection PHOSPHORUS INORGANIC Standing, Expires: 02/19/2026, Manual-release, Interval: Once per week, Count: 12, Lab Collect, Routine, Specimen Types - Blood;, Specimen Sources - Blood;, Resulting [facility], Dx: 1. Mantle cell lymphoma, unspecified body region (HCC), New collection TYPE + SCREEN Blood Bank, Routine URIC ACID Standing, Expires: 02/19/2026, Manual-release, Interval: Once per week, Count: 12, Lab Collect, Routine, Specimen Types - Blood;, Specimen Sources - Blood;, Resulting [facility], Dx: 1. Mantle cell lymphoma, unspecified body region (HCC), New collection July Pierce MD T [facility] 02-19-2025 Miscellaneous Notes I left message on Bg phone to get labs done once weekly starting today that we can see response to Brukinsa and also status of anemia and all blood counts Orders Signed This Visit (5) COMPLETE BLOOD COUNT AND DIFFERENTIAL Standing, Expires: 02/19/2026, Manual-release, Interval: Once per week, Count: 12, Lab Collect, Routine, Specimen Types - Blood;, Specimen Sources - Blood;, Resulting [facility], Dx: 1. Mantle cell lymphoma, unspecified body region (HCC) 2. Autoimmune hemolytic anemia (HCC), New collection COMPREHENSIVE METABOLIC PANEL Standing, Expires: 02/19/2026, Manual-release, Interval: Once per week, Count: 12, Lab Collect, Routine, Specimen Types - Blood;, Specimen Sources - Blood;, Resulting [facility], Dx: 1. Mantle cell lymphoma, unspecified body region (HCC), New collection PHOSPHORUS INORGANIC Standing, Expires: 02/19/2026, Manual-release, Interval: Once per week, Count: 12, Lab Collect, Routine, Specimen Types - Blood;, Specimen Sources - Blood;, Resulting [facility], Dx: 1. Mantle cell lymphoma, unspecified body region (HCC), New collection TYPE + SCREEN Blood Bank, Routine URIC ACID Standing, Expires: 02/19/2026, Manual-release, Interval: Once per week, Count: 12, Lab Collect, Routine, Specimen Types - Blood;, Specimen Sources - Blood;, Resulting [facility], Dx: 1. Mantle cell lymphoma, unspecified body region (HCC), New collection July Pierce MD Joshua visiting nurse from [facility] called stating that patient a petechia on his arms. He is oral oral Burkinsa. No fevers, bleeding, cough or other rashes. Would you like to be seen by ENTRY LEVEL ACCOUNT MANAGER or have labs checked? Please advise documented in this encounter [facility] 02-19-2025 Telephone encounter Note Joshua visiting nurse from [facility] called stating that patient a petechia on his arms. He is oral oral Burkinsa. No fevers, bleeding, cough or other rashes. Would you like to be seen by ENTRY LEVEL ACCOUNT MANAGER or have labs checked? Please advise [facility] 02-18-2025 Telephone encounter Note SOCIAL WORK FOLLOW UP NOTE: [facility] Date of service: February 18, 2025 Attempted to reach patient at [phone] for introduction to SW and assessment of support needs. No answer; left message with SW contact information. Will remain available for any psychosocial needs that arise. Advance Care Planning Goals of Care Date of Discussion: 02/18/2025 DIscussion Participants: unable to reach patient/caregiver In this encounter: Unable to reach patient/caregiver Assigned SW listed in Care Team tab: Yes Unable To Reach Patient Beth CK Cuenca [facility] Work Phone: 02-18-2025 Miscellaneous Notes SOCIAL WORK FOLLOW UP NOTE: [facility]CER CENTER Date of service: February 18, 2025 Attempted to reach patient at [phone] for introduction to SW and assessment of support needs. No answer; left message with SW contact information. Will remain available for any psychosocial needs that arise. Advance Care Planning Goals of Care Date of Discussion: 02/18/2025 DIscussion Participants: unable to reach patient/caregiver In this encounter: Unable to reach patient/caregiver Assigned SW listed in Care Team tab: Yes Unable To Reach Patient Beth CK Cuenca documented in this encounter [facility] 02-17-2025 Instructions Priscilla Salas MD - 02/17/2025 3:20 PM EDT We discussed your overall health and current conditions: - Your blood pressure is well-controlled at 116/52, and your medications for blood pressure, cholesterol, and diabetes are appropriate. Please continue taking Metoprolol, Lipitor, Metformin (2 tablets daily), Glipizide (small dose), and Semaglutide (Rybelsus) as prescribed. - Your recent blood tests showed normal kidney function, but your hemoglobin is low at 9.6, which may be contributing to feelings of fatigue. No additional treatment is needed at this time, but we will continue to monitor this. - Your heart function remains stable, with an ejection fraction of 40-45%, which is consistent with findings from three years ago. There is no need for further invasive testing, such as a stress test, as your heart is not causing you any pain or other symptoms. Please continue taking Metoprolol and maintain good control of your blood pressure, cholesterol, and blood sugar. - You have a history of an old heart attack, but your heart condition is stable, and your current medications are effectively managing your symptoms. - You do not have any swelling in your legs, shortness of breath, or chest pain at this time, which is a positive sign. We discussed your lymphoma: - You are currently undergoing chemotherapy for Mantle Cell Lymphoma. Please continue following up with your oncology team, including Dr. Will in [place] and Dr. Gila Tony at the [facility], for ongoing management. We discussed your lifestyle and recent changes: - You have stopped smoking for the past 2-3 months, which is excellent. Please continue to avoid smoking. - You are no longer drinking alcohol, which is beneficial for your overall health. Please continue to avoid alcohol. - You are drinking Ensure to help with nutrition and weight maintenance, which is appropriate given your recent weight loss. Please continue this as needed. - Walking is good for your health. Please continue to use your walker for safety and mobility. We discussed dietary recommendations: - Please avoid eating too much salt in your food to help manage your blood pressure and overall health. Follow-up: - No additional tests or changes to your medications are needed at this time. Please continue with your current treatment plan and follow up with your oncology team as scheduled. - If you experience any new or worsening symptoms, such as chest pain, shortness of breath, swelling in your legs, or significant fatigue, please contact our office immediately. Let us know if you have any further questions or concerns. documented in this encounter [facility] 02-17-2025 Note [facility] 02-17-2025 History of Present illness Narrative Images from the original note were not included. [facility] [place] [facility] Bal Department of Cardiovascular Medicine SECTION OF REGIONAL CARDIOLOGY [facility] 02/17/2025 OUTPATIENT VISIT TYPE Established HISTORY OF PRESENT ILLNESS: Mr. Barone is 74 year old male with tobacco abuse, past medical history significant for HTN, HLP, DM II, syncope, obesity, etoh abuse, chronic back pain and frequent falls. He has vascular dementia and has Mantle lymphoma and is getting treatment for it at present. He appears to have discontinued excessive alcohol consumption in 2021 after my last meeting with him. Patient can walk slowly and uses wheelchair for more longer ambulation. Patient has no symptoms of chest pain. Patient has mild exertional shortness of breath after 1-2 flight of stairs. Dizziness - No Palpitations - No Leg swelling - No Fatigue - Yes Snoring - No Sleep apnea - No Vascular Dementia: - History of vascular dementia. - No recent falls; uses a walker for ambulation. Mantle Cell Lymphoma: - Currently undergoing chemotherapy. - Recent weight loss of 100 lbs. - Denies epistaxis, hematuria, or hematochezia. - Denies ecchymosis. - Recent blood test 7-8 days ago showed low hemoglobin at 9.6 g/dL. - Denies fatigue or lethargy. CHF: - Denies current dyspnea or chest pain. - Able to walk; uses a wheelchair for longer distances. - Denies palpitations. - Denies edema in lower extremities. - Ejection fraction 40-45%. - EKG last month showed normal heart rhythm. - Stress test 3 years ago indicated an old MS in the inferior wall of the heart. - Denies neck cramps, pain, or tightness in thighs. Patient drinks no coffee or caffeine containing beverages per day Patient stopped smoking for last 2-3 month Patient drinks no significant alcohol. Patient denies recreational drug use / abuse. Social History Tobacco Use Smoking status: Former Current packs/day: 0.25 Average packs/day: 0.3 packs/day for 20.0 years (5.0 ttl pk-yrs) Types: Cigarettes Smokeless tobacco: Never Vaping Use Vaping status: Never Used Substance Use Topics Alcohol use: Not Currently Alcohol/week: 24.0 standard drinks of alcohol Types: 24 Cans of Beer (12oz) per week Drug use: No FAMILY HISTORY Problem Relation Age of Onset Diabetes Mother Heart Mother Hypertension Mother Stroke Mother Cataract Mother Glaucoma Mother Macular Degen Father Parkinsonism Sister Asthma Sister Headache Brother Heart Attack Brother 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 Carotid artery occlusion Carpal tunnel syndrome of left wrist Carpal tunnel syndrome on right Chronic bilateral low back pain without sciatica 10/01/2017 Combined forms of age-related cataract of right eye 06/14/2021 COVID-19 08/03/2021 Dependence on nicotine from cigarettes Elevated troponin 07/23/2021 Essential hypertension 08/03/2021 Frequent falls 08/03/2021 Mixed hyperlipidemia Multiple falls 08/04/2021 Nicotine use disorder, F17.2 NS (nuclear sclerosis), right 06/16/2021 Obesity, Class I, BMI 30-34.9 08/03/2021 Osteoarthritis Posterior subcapsular polar age-related cataract of right eye 06/16/2021 Pseudophakia of left eye 09/2012 Sleep apnea Spinal stenosis Syncope 07/23/2021 Thoracic or lumbosacral neuritis or radiculitis, unspecified Type 2 diabetes mellitus with hyperglycemia (HCC) 08/03/2021 PAST SURGICAL HISTORY Procedure Laterality Date ARTHRD ANT INTERBODY MIN DSC LUMBAR 1988 NEUROPLASTY &/TRANSPOS MEDIAN NRV CARPAL TUNNE 2009 Carpal tunnel decomp Lt. XCAPSL CTRC RMVL INSJ IO LENS PROSTH W/O ECP 09/2012 Cataract Extraction with PC IOL left REVIEW OF SYSTEMS: SYSTEMIC: No fever, chills, or change in weight or appetite HEENT: No recent change in vision or hearing. Respiratory: No hemoptysis, cough. CARDIOVASCULAR: See HPI. GI: No recent nausea, vomiting or diarrhea. : No recent hematuria or dysuria. SKIN: No recent itching or eruption. PSYCH: No recent active anxiety or depression. HEMATOLOGY/ONCOLOGY: No recent diagnosis of bleeding or cancer. ENDOCRINE: No recent polyuria or heat intolerance. NEURO: No recent TIA, stroke or seizures. MSK / RHEUMATOLOGY: No recent active connective tissue disease. Rest of the review of system is unremarkable. ALLERGIES No Known Allergies CURRENT MEDICATIONS: sertraline (ZOLOFT) 50 mg tablet Take 1 tablet by mouth once daily. zinc sulfate 220 mg (50 mg zinc) capsule Take 1 capsule by mouth once daily for 29 doses. traZODone (DESYREL) 50 mg tablet Take 1 tablet by mouth daily at bedtime. zanubrutinib (BRUKINSA) 80 mg capsule Take 2 capsules by mouth two times a day. Blood-Glucose Meter,Continuous (FREESTYLE YESSENIA 3 READER) misc 1 each continuous. Blood-Glucose Sensor (FREESTYLE YESSENIA 3 PLUS SENSOR) lv 1 each once daily. glipiZIDE (GLUCOTROL XL) 2.5 mg 24 hr tablet Take 1 tablet by mouth once daily. metoprolol succinate ER (TOPROL XL) 25 mg 24 hr tablet Take 1 tablet by mouth once daily. aspirin 81 mg chewable tablet Take 1 tablet by mouth once daily. Cholecalciferol, Vitamin D3, 25 mcg (1,000 unit) cap Take 1 capsule by mouth once daily. cyanocobalamin (VITAMIN B-12) 500 mcg tablet Take 1 tablet by mouth every Sunday, Sunday, and Sunday. semaglutide (RYBELSUS) 14 mg tablet Take 1 tablet by mouth daily before breakfast. atorvastatin (LIPITOR) 80 mg tablet Take 1 tablet by mouth daily at bedtime. metFORMIN (GLUCOPHAGE) 500 mg tablet Take 2 tablets by mouth daily with breakfast. Blood-Glucose Meter To check blood sugar once a day. E11.9 any brand covered by insurance is ok Lancets (ONETOUCH ULTRASOFT LANCETS) To check blood sugar once a day. E11.9 any brand covered by insurance is ok blood sugar diagnostic (BLOOD GLUCOSE TEST) test strip To check blood sugar once a day. E11.9 any brand covered by insurance is ok acetaminophen (TYLENOL) 325 mg tablet Take 1-2 tablets by mouth every 6 hours as needed for pain or fever (specify). PHYSICAL EXAM: BP 116/62 Pulse 80 SpO2 99% Last 2 Encounter Wt Readings: Date: Wt: 08/03/2021 107.5 kg (236 lb 15.9 oz) 07/22/2021 107.9 kg (237 lb 12.8 oz) Awake, alert, oriented times 3. Patient is not in acute respiratory distress. SKIN: No petechial rash or ecchymosis noted. Head : Normocephalic. Face is symmetrical NECK: Supple. No JVD. Right carotid bruit. No thyromegaly. ENT: Pharyngeal structures are not crowded and uvula is well visualized. Mallampati 1 LUNGS: Clear to auscultation bilaterally. CARDIAC: Normal S1 and S2, no systolic murmur. ABDOMEN: Soft, nontender, bowel sounds present. EXTREMITIES: No cyanosis, clubbing. +1 edema in the RLE. +1 edema in the LLE PULSES: Peripheral pulses are not palpable in DP and PT arteries. NEURO: Non-focal. Moves all extremities. Musculoskeletal: No significant deformities. Last Labs: I reviewed personally. Sodium Date Value Ref Range Status 02/06/2025 137 136 - 144 mmol/L Final Potassium Date Value Ref Range Status 02/06/2025 5.1 3.7 - 5.1 mmol/L Final Chloride Date Value Ref Range Status 02/06/2025 101 98 - 107 mmol/L Final CO2 Date Value Ref Range Status 02/06/2025 19 (L) 22 - 30 mmol/L Final Glucose Date Value Ref Range Status 02/06/2025 250 (H) 74 - 99 mg/dL Final Comment: The [place] [employer] (ADA) provides guidance for cutoff values for fasting glucose and random glucose. The ADA defines fasting as no caloric intake for at least 8 hours. Fasting plasma glucose results between 100 to 125 mg/dL indicate increased risk for diabetes (prediabetes). Fasting plasma glucose results greater than or equal to 126 mg/dL meet the criteria for diagnosis of diabetes. In the absence of unequivocal hyperglycemia, results should be confirmed by repeat testing. In a patient with classic symptoms of hyperglycemia or hyperglycemic crisis, random plasma glucose results greater than or equal to 200 mg/dL meet the criteria for diagnosis of diabetes. Reference: Standards of Medical Care in Diabetes 2016, [place] [employer]. Diabetes Care. 2016.39(Suppl 1). BUN Date Value Ref Range Status 02/06/2025 22 9 - 24 mg/dL Final Creatinine Date Value Ref Range Status 02/06/2025 1.11 0.73 - 1.22 mg/dL Final Calcium, Total Date Value Ref Range Status 02/06/2025 8.7 8.5 - 10.2 mg/dL Final Albumin Date Value Ref Range Status 02/06/2025 3.2 (L) 3.9 - 4.9 g/dL Final Protein, Total Date Value Ref Range Status 02/06/2025 6.2 (L) 6.3 - 8.0 g/dL Final AST Date Value Ref Range Status 02/06/2025 16 14 - 40 U/L Final ALT Date Value Ref Range Status 02/06/2025 15 10 - 54 U/L Final Alkaline Phosphatase Date Value Ref Range Status 02/06/2025 107 38 - 113 U/L Final Bilirubin, Total Date Value Ref Range Status 02/06/2025 0.4 0.2 - 1.3 mg/dL Final Triglyceride Date Value Ref Range Status 12/29/2024 154 (H) <150 mg/dL Final Comment: <150 mg/dL, Normal 150-199 mg/dL, Borderline high 200-499 mg/dL, High >499 mg/dL, Very high Cholesterol, Total Date Value Ref Range Status 12/29/2024 161 <200 mg/dL Final Comment: <200 mg/dL, Desirable 200-239 mg/dL, Borderline high >239 mg/dL, High HDL Cholesterol Date Value Ref Range Status 12/29/2024 35 (L) >39 mg/dL Final Comment: 40-59 mg/dL, Acceptable >59 mg/dL, High: Negative risk factor for coronary heart disease <40 mg/dL, Low: Positive risk factor for coronary heart disease LDL Cholesterol, Calculated Date Value Ref Range Status 12/29/2024 99 <100 mg/dL Final Comment: <100 mg/dL, Optimal 100-129 mg/dL, Near optimal/above optimal 130-159 mg/dL, Borderline high 160-189 mg/dL, High >189 mg/dL, Very high Secondary prevention optimal LDL Cholesterol levels are recommended to be <70 mg/dL LDL cholesterol is calculated using the Edouard-NIH equation. INR Date Value Ref Range Status 11/11/2021 1.0 0.9 - 1.3 Final Comment: Vitamin K Antagonist (VKA) Therapeutic Range: INR 2 to 3 (Target INR of 2.5) Note: For patients treated with VKA drugs, such as warfarin, the [place] [employer] 2012 Guideline recommends a therapeutic INR range of 2 to 3 (target INR of 2.5). This recommendation includes high-risk patients with antiphospholipid syndrome with previous arterial or venous thromboembolism, current-generation mechanical or bioprosthetic aortic heart valve replacement. Note: Patients with mechanical aortic valve replacement and additional risk factors for thromboembolic events (atrial fibrillation, previous thromboembolism, LV dysfunction, hypercoagulable conditions) or an older generation mechanical AVR (i.e., ball in-Cage) or any mechanical MVR should have a INR therapeutic range of 2.5 to 3.5 (target INR of 3). Barbara GH, et al. Chest 2012, 141:7S-47S Adalberto RA, et al. [facility] 2017, 70: 252-289 Cardiovascular Testing: I reviewed personally. US CAROTID BILAT: 07/23/21 1. RIGHT ICA: 30-49% stenosis 2. LEFT ICA: <30% stenosis CTA NECK W IVCON: 07/23/21 No acute intracranial or extracranial large vessel occlusion. Approximately 80% stenosis of the proximal right ICA and 30% stenosis of the left proximal ICA. Additional mild intracranial extracranial stenoses as detailed. Ascending aortic ectasia, measuring 4.1cm. Moderate cervical spondylosis with foraminal stenoses as discussed. EK08/03/2021 NORMAL SINUS RHYTHM INFERIOR INFARCT. POSSIBLE ANTERIOR INFARCT. ECHO: 08/03/21 - Exam indication: syncope - The left ventricle is mildly dilated. Left ventricular systolic function is mildly decreased. EF = 44 5%. - The right ventricle is normal in size. - The left atrial cavity is mildly dilated. - The right atrial cavity is dilated. - The visualized aorta is dilated with a maximal dimension of 4.5 cm. US SCREENING FOR AAA 04/16/2022 No evidence of abdominal aortic aneurysm US CAROTID BILAT 10/25/2021 The stenosis estimation in the right ICA based on peak systolic velocity is 50-69%, and based on end-diastolic velocity and ICA/CCA ratio is 70-99% by NASCET criteria. Grayscale, color Doppler aliasing, and post stenotic waveforms support these findings. No hemodynamically significant flow velocities identified and stenosis estimate in left ICA is 1-29% by NASCET criteria. The bilateral CCAs, and ECAs are unremarkable. Vertebral arteries exhibit antegrade flow. The subclavian artery waveforms are unremarkable bilaterally. US CAROTID BILAT 01/25/2022 moderate right carotid stenosis, stable. No hemodynamically significant left carotid stenosis NM CARDIAC PERF STRESS/PHARM 09/22/2021 1. SPECT Perfusion Study: Abnormal. 2. There is no scintigraphic evidence for inducible ischemia. 3. There is a moderate (10-20%) fixed perfusion defect in the RCA territory. 4. Left ventricle is normal in size. The left ventricle systolic function is moderately decreased. 5. This is an intermediate risk scan due to area of scar / ischemia. Echocardiogram done on December 15, 2022. Follow-up with [facility] showed ejection fraction of 50 to 55% and 1+ mitral regurgitation is noted. EKG 12/15/2022 showed sinus with poor with first-degree atrioventricular block R wave progression and inferior myocardial infarction IMPRESSION / RECOMMENDATIONS / PLAN: Encounter Diagnosis ICD-10-CM 1. Ascending aorta dilatation I77.810 2. HFrEF (heart failure with reduced ejection fraction) ([facility]) I50.20 3. Mixed hyperlipidemia E78.2 4. Essential hypertension I10 5. Mantle cell lymphoma, unspecified body region (HCC) C83.10 6. Generalized weakness R53.1 HTN with ascending aortic root dilatation of 4.5 cm. Blood pressure is adequately controlled today. Continue losartan 25 mg daily. Continue 25 mg metoprolol succinate daily. Previous ECG from 08/03/21 indicates evidence of prior inferior/anterior infarcts. Nuclear SPECT scan also showed inferior myocardial infarction but his LV ejection fraction has become 50 to 55% on echocardiogram done in December 2022. Ischemic Cardiomyopathy with ejection fraction of 44% was noted on the echocardiogram in July 2021 and his EKG also showed Q waves in the inferior and anterior leads. Nuclear stress test showed there is a moderate (10-20%) fixed perfusion defect in the RCA. Continue monitoring as he remains asymptomatic. However, if he develop angina equivalent symptoms or angina then he would need heart catheterization for further work-up. At present medical therapy will be continued. Hyperlipidemia: Continue atorvastatin 80 mg daily. Mentle cell lymphoma. The patient will follow-up with the hematology oncology department for chemotherapy. Follow-up: in 6 months with cardiology [employer] and in 1 year with me in the office or sooner as needed Priscilla Salas MD [facility], Dept of cardiovascular medicine, [facility]. Staff Ski Topper, [facility] [place]. Chloe Bal Department of Cardiovascular Medicine. documented in this encounter [facility] 02-17-2025 Note [facility] 02-17-2025 History of Present illness Narrative [facility]) TRANSITIONAL CARE MANAGEMENT (TCM) POST-ACUTE CARE (PAC) PROGRAM Transitions Navigator Outreach Provider Action/FYI: PAC TCM SNF INITIAL OUTREACH HC:([facility] ) Unable to reach patient x3, LMOM for return call to my direct line. -Lives with family (spouse) -Ambulation with (walker) -ADLs: Independent -(pt requires assistance with bathing from spouse, primarily sponge bathes) -iADLs: Needs assistance -TCM with PCP 02/11/25. DC:02/08/25 Carrillo Hutchison ( ) Reason for hospitalization: Pt presented with worsening weakness and fatigue, Dx: COVID-19, generalized weakness Program Details Post Acute Care Status: Enrolled Effective Dates: 02/10/2025 - present Responsible Staff: Nga Deras MA Support and Services: Post-SNF Transition Support TYPE OF OUTREACH: PAC TCM Initial Outreach Transition from: Residential Facility (SNF) End Outreach documented in this encounter [facility] 02-16-2025 Note [facility] 02-16-2025 History of Present illness Narrative Patient is identified through a medication adherence outreach initiative based on pharmacy claims data from: [employer] Medication Adherence Category: Statins First Review Attribution Status: Correct attribution Medication(s) Atorvastatin 80 mg Last Filled 10/30 for 90DS, Next fill due 01/27 Medication Status per portal/Epic Reconcile Dispense: Not filled Medication Status per Profile Review: No issues per profile review Patient/provider appropriate for outreach? Yes Patient identified by name and Outreach to patient: Spoke to patient's caregiver - Bg Gonzalez Adherence Concern: Patient has overstock and No adherence concerns - about 70 tabs remaining as of today, confirms does take it daily as prescribed What was primary intervention? Remind patient to garbage pick up man or fill and Reviewed medication with the patient Toni Gomez CPhT [facility] Team documented in this encounter [facility] 02-13-2025 Telephone encounter Note Pt and Bg came form signed and faxed to [facility] per powder worker On 02/11/25 [facility] 02-13-2025 Miscellaneous Notes Pt and Bg came form signed and faxed to [facility] per powder worker On 02/11/25 Received return call back from Bg She said she will bring pt in to [place] office after seeing PCP in [place] to have patient come and sign forms for medication to get sent over from [facility] pharmacy Call placed to pt and left message to return call as pt spouse Bg left VM for this nurse to return call. documented in this encounter [facility] 02-13-2025 Note [facility] 02-13-2025 History of Present illness Narrative [facility] (SNF) TRANSITIONAL CARE MANAGEMENT (TCM) POST-ACUTE CARE (PAC) PROGRAM Transitions Navigator Outreach Provider Action/FYI: PAC TCM SNF INITIAL OUTREACH HC:([facility] ) 2nd attempt. Tried calling pt but could not reach. LMOM for return call to my direct line. Will try another outreach in 1 week. -Lives with family (spouse) -Ambulation with (walker) -ADLs: Independent -(pt requires assistance with bathing from spouse, primarily sponge bathes) -iADLs: Needs assistance -TCM with PCP 02/11/25. DC:02/08/25 Carrillo Hutchison ( ) Reason for hospitalization: Pt presented with worsening weakness and fatigue, Dx: COVID-19, generalized weakness Program Details Post Acute Care Status: Enrolled Effective Dates: 02/10/2025 - present Responsible Staff: Nga Deras MA Support and Services: Post-SNF Transition Support TYPE OF OUTREACH: PAC TCM Initial Outreach Transition from: Residential Facility (SNF) End Outreach [facility] (SNF) TRANSITIONAL CARE MANAGEMENT (TCM) POST-ACUTE CARE (PAC) PROGRAM Transitions Navigator Outreach Provider Action/FYI: PAC TCM SNF INITIAL OUTREACH HC:([facility] ([facility] ) 1st attempt. Tried calling but could not reach. LMOM for return call to my direct line. Will try outreaching again tomorrow. -Lives with family (spouse) -Ambulation with (walker) -ADLs: Independent -(pt requires assistance with bathing from spouse, primarily sponge bathes) -iADLs: Needs assistance -TCM with PCP 02/11/25. DC:02/08/25 Carrillo Hutchison ( ) Reason for hospitalization: Pt presented with worsening weakness and fatigue, Dx: COVID-19, generalized weakness Program Details Post Acute Care Status: Enrolled Effective Dates: 02/10/2025 - present Responsible Staff: Nga Deras MA Support and Services: Post-SNF Transition Support TYPE OF OUTREACH: PAC TCM Initial Outreach Transition from: Residential Facility (SNF) End Outreach documented in this encounter [facility] 02-11-2025 Telephone encounter Note Message relayed to brennon at [facility] 02-11-2025 Miscellaneous Notes Message relayed to brennon at [facility] Ok to give verbal Shaye from [facility] calling for the verbal ok to resume home care services for the patient. Pt was receiveing mcc, pt, ot and st. Please advise so we can notify shaye at [phone]. thanks documented in this encounter [facility] 02-11-2025 Telephone encounter Note Ok to give verbal [facility] 02-11-2025 Telephone encounter Note Shaye from [facility] calling for the verbal ok to resume home care services for the patient. Pt was receiveing mcc, pt, ot and st. Please advise so we can notify shaye at [phone]. thanks [facility] 02-11-2025 Note [facility] 02-11-2025 History of Present illness Narrative CC: follow up S: 74 year old male with history below presents with his for follow up. Recently admitted at OSH after a COVID-19 infection. Medication Management: - Recent hospitalization and rehab stay following COVID-19 infection. - Discharged home with spouse, who is managing Justin's medications. - Concerns about Justin's medication reconciliation and refills. - Recent initiation of Zoloft during hospitalization; unsure if it was continued in rehab. - Awaiting chemotherapy medication from pharmacy. - Justin is taking omeprazole for heartburn, currently out of medication. Denies issues with heartburn off the medication. - Justin is taking Miralax for constipation. - Justin is taking trazodone for insomnia, currently out of medication. - Justin is taking zinc sulfate, currently out of medication. - Justin is taking B12 on Sunday, Sunday, and Sunday. - Justin is taking B-complex and D3 supplements. - Justin is taking Flomax for BPH, currently out of medication. States he does not need the medicine anymore- feels his urination is stable. Wears depends. - Justin is taking valaglipicide. Latest Ref Rng 02/06/2025 WBC 3.70 - 11.00 k/uL 8.67 RBC 4.20 - 6.00 m/uL 3.41 (L) Hemoglobin 13.0 - 17.0 g/dL 9.6 (L) Hematocrit 39.0 - 51.0 % 30.9 (L) MCV 80.0 - 100.0 fL 90.6 MCH 26.0 - 34.0 pg 28.2 MCHC 30.5 - 36.0 g/dL 31.1 RDW-CV 11.5 - 15.0 % 15.7 (H) Platelet Count 150 - 400 k/uL 276 MPV 9.0 - 12.7 fL 8.9 (L) Neut% % 67.8 Abs Neut (ANC) 1.45 - 7.50 k/uL 5.88 Lymph% % 26.1 Abs Lymph 1.00 - 4.00 k/uL 2.26 Bossier% % 5.2 Abs Bossier <0.87 k/uL 0.45 Eosin% % 0.1 Abs Eosin <0.46 k/uL <0.03 Baso% % 0.2 Abs Baso <0.11 k/uL <0.03 Immature Gran % % 0.6 IMMATURE GRANS (ABS) <0.10 k/uL 0.05 NRBC /100 WBC 0.0 Absolute nRBC <0.01 k/uL <0.01 DTYPE Auto Protein, Total 6.3 - 8.0 g/dL 6.2 (L) Albumin 3.9 - 4.9 g/dL 3.2 (L) Calcium 8.5 - 10.2 mg/dL 8.7 Bilirubin, Total 0.2 - 1.3 mg/dL 0.4 Alkaline Phosphatase 38 - 113 U/L 107 AST 14 - 40 U/L 16 ALT 10 - 54 U/L 15 Glucose 74 - 99 mg/dL 250 (H) BUN 9 - 24 mg/dL 22 Creatinine 0.73 - 1.22 mg/dL 1.11 Sodium 136 - 144 mmol/L 137 Potassium 3.7 - 5.1 mmol/L 5.1 Chloride 98 - 107 mmol/L 101 CO2 22 - 30 mmol/L 19 (L) Anion Gap 8 - 15 mmol/L 17 (H) eGFR >=60 mL/min/1.73m 69 ABO A Rh(D) Positive Antibody Screen Positive ! 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 Carotid artery occlusion Carpal tunnel syndrome of left wrist Carpal tunnel syndrome on right Chronic bilateral low back pain without sciatica 10/01/2017 Combined forms of age-related cataract of right eye 06/14/2021 COVID-19 08/03/2021 Dependence on nicotine from cigarettes Elevated troponin 07/23/2021 Essential hypertension 08/03/2021 Frequent falls 08/03/2021 Mixed hyperlipidemia Multiple falls 08/04/2021 Nicotine use disorder, F17.2 NS (nuclear sclerosis), right 06/16/2021 Obesity, Class I, BMI 30-34.9 08/03/2021 Osteoarthritis Posterior subcapsular polar age-related cataract of right eye 06/16/2021 Pseudophakia of left eye 09/2012 Sleep apnea Spinal stenosis Syncope 07/23/2021 Thoracic or lumbosacral neuritis or radiculitis, unspecified Type 2 diabetes mellitus with hyperglycemia (HCC) 08/03/2021 PAST SURGICAL HISTORY Procedure Laterality Date ARTHRD ANT INTERBODY MIN DSC LUMBAR 1988 NEUROPLASTY &/TRANSPOS MEDIAN NRV CARPAL TUNNE 2008 Carpal tunnel decomp Lt. XCAPSL CTRC RMVL INSJ IO LENS PROSTH W/O ECP 09/2012 Cataract Extraction with PC IOL left Current Outpatient Medications Medication Sig Dispense Refill sertraline (ZOLOFT) 50 mg tablet Take 1 tablet by mouth once daily. 90 tablet 3 zinc sulfate 220 mg (50 mg zinc) capsule Take 1 capsule by mouth once daily for 29 doses. 29 capsule 0 traZODone (DESYREL) 50 mg tablet Take 1 tablet by mouth daily at bedtime. 90 tablet 3 zanubrutinib (BRUKINSA) 80 mg capsule Take 2 capsules by mouth two times a day. 120 capsule 0 Blood-Glucose Meter,Continuous (FREESTYLE YESSENIA 3 READER) misc 1 each continuous. 1 each 0 Blood-Glucose Sensor (FREESTYLE YESSENIA 3 PLUS SENSOR) lv 1 each once daily. 5 each 11 tamsulosin (FLOMAX) 0.4 mg Take 0.4 mg by mouth daily at bedtime. glipiZIDE (GLUCOTROL XL) 2.5 mg 24 hr tablet Take 1 tablet by mouth once daily. 30 tablet 1 metoprolol succinate ER (TOPROL XL) 25 mg 24 hr tablet Take 1 tablet by mouth once daily. 90 tablet 3 aspirin 81 mg chewable tablet Take 1 tablet by mouth once daily. 30 tablet 5 Cholecalciferol, Vitamin D3, 25 mcg (1,000 unit) cap Take 1 capsule by mouth once daily. 30 capsule 5 cyanocobalamin (VITAMIN B-12) 500 mcg tablet Take 1 tablet by mouth every Sunday, Sunday, and Sunday. 12 tablet 5 semaglutide (RYBELSUS) 14 mg tablet Take 1 tablet by mouth daily before breakfast. 90 tablet 1 atorvastatin (LIPITOR) 80 mg tablet Take 1 tablet by mouth daily at bedtime. 30 tablet 11 metFORMIN (GLUCOPHAGE) 500 mg tablet Take 2 tablets by mouth daily with breakfast. 0 Blood-Glucose Meter To check blood sugar once a day. E11.9 any brand covered by insurance is ok 1 Each 0 Lancets (ONETOUCH ULTRASOFT LANCETS) To check blood sugar once a day. E11.9 any brand covered by insurance is ok 100 Each 1 blood sugar diagnostic (BLOOD GLUCOSE TEST) test strip To check blood sugar once a day. E11.9 any brand covered by insurance is ok 100 Each 1 acetaminophen (TYLENOL) 325 mg tablet Take 1-2 tablets by mouth every 6 hours as needed for pain or fever (specify). No current facility-administered medications for this visit. SOCIAL (pertinent): SOCIAL HISTORY[1] FAMILY (pertinent): FAMILY HISTORY Problem Relation Age of Onset Diabetes Mother Heart Mother Hypertension Mother Stroke Mother Cataract Mother Glaucoma Mother Macular Degen Father Parkinsonism Sister Asthma Sister Headache Brother Heart Attack Brother ROS: See HPI O: PHYSICAL EXAM: BP 117/77 Pulse 104 Ht 177.8 cm (5' 10) Wt 75.8 kg (167 lb) SpO2 98% BMI 23.96 kg/m Gen: Patient is pleasant, answers questions/responds to commands but otherwise looks tired, ambulating with a walker Head: Normocephalic, atraumatic CV: Regular rate and rhythm, normal S1/S2, no murmurs, rubs Pulm: Clear to auscultation bilaterally, no wheezes, crackles, or rhonchi Abd: soft, non-tender, no masses/organomegaly Neuro: EOMI, no involuntary movements. Extrem: No cyanosis, clubbing, or edema. Distal pulses equal and palpable b/l Skin: Warm, dry, no visible rashes A/P: 74 year old male with 1. Moderate episode of recurrent major depressive disorder (HCC) (F33.1) - Zoloft 50 mg daily was started during recent hospitalization; prescription not continued at rehab facility. - Sent prescription for Zoloft 50 mg daily. 2. COVID-19 (U07.1) - Recent infection with subsequent hospitalization and rehab stay for post-infectious weakness; infection now resolved. 3. Zinc deficiency (E60) - Zinc supplementation not continued after discharge from rehab. - Sent prescription for zinc sulfate; instructed to complete 29 doses and then discontinue. 4. Chronic insomnia (F51.04) - Trazodone 50 mg previously prescribed for insomnia; patient was taking half-tablet doses. - Increase trazodone to 50 mg nightly; sent 90-day prescription. 5. Benign prostatic hyperplasia without lower urinary tract symptoms (N40.0) - No current lower urinary tract symptoms; patient uses incontinence briefs. - Discontinue Flomax. Samm Kc DO February 11, 2025 11:25 AM Follow up in 6 months Recording using [employer] software for draft documentation of the visit was discussed with the patient/authorized promotions representative; all questions welcomed and answered. Patient/authorized promotions representative agreed to proceed. [1] Social History Tobacco Use Smoking status: Former Current packs/day: 0.25 Average packs/day: 0.3 packs/day for 20.0 years (5.0 ttl pk-yrs) Types: Cigarettes Smokeless tobacco: Never Vaping Use Vaping status: Never Used Substance Use Topics Alcohol use: Not Currently Alcohol/week: 24.0 standard drinks of alcohol Types: 24 Cans of Beer (12oz) per week Drug use: No documented in this encounter [facility] 02-11-2025 Note [facility] 02-10-2025 Note [facility] 02-10-2025 Telephone encounter Note Received return call back from Bg She said she will bring pt in to [place] office after seeing PCP in [place] to have patient come and sign forms for medication to get sent over from [facility] pharmacy [facility] 02-10-2025 Telephone encounter Note Call placed to pt and left message to return call as pt spouse Bg left VM for this nurse to return call. [facility] 02-10-2025 Instructions Gila Braxton MD - 02/10/2025 10:59 AM EDT We discussed your diagnosis of mantle cell lymphoma and its impact on your health: - Your symptoms, including hemolytic anemia, weight loss, fatigue, and lack of appetite, are likely caused by the mantle cell lymphoma. - Treatment options were reviewed, and I recommend starting with a pill-based treatment for the lymphoma. This is a safer option than chemotherapy given your current health conditions, including diabetes and vascular dementia. - The pill treatment is expected to help shrink the lymphoma, improve your appetite, and address your symptoms. It is typically taken twice daily and may need to be continued long-term as long as it is effective. - Side effects of the pill treatment may include stomach upset, nausea, bruising, bleeding, and changes in blood pressure or heart rate. We will monitor your blood counts, blood pressure, and heart rate regularly, likely once a month. - I will work with Dr. Pierce to expedite the approval and delivery of the pill treatment. This process typically takes 2-3 weeks, but I recommend staying in touch. We discussed additional treatment options: - If the pill treatment is delayed, we can consider starting immune therapy (rituximab) sooner. This is an intravenous treatment given once a week for 4 weeks, then once a month. It can be administered at Dr. Pierce s office or another cancer treatment center. - Immune therapy is generally well-tolerated, but there is a small risk of an allergic reaction during the infusion. You would be monitored closely during treatment for any signs of a reaction. We discussed your weight loss and nutrition: - Your weight has decreased significantly over the past year and a half, which is concerning. This is likely related to the lymphoma and your reduced appetite. - Continue focusing on high-calorie, high-protein foods and drinks, such as shakes with Ensure and ice cream, to maintain your weight. At this time, do not worry about limiting carbs or sugar. - Once treatment begins, your appetite is expected to improve, which should help with weight gain. We discussed your history of falls and overall activity level: - You have experienced multiple falls, including one after your bone marrow biopsy. Please continue to take precautions to prevent falls, such as using support when moving around. - Your fatigue and reduced activity are likely related to the lymphoma. Treatment should help improve your energy levels over time. Next steps: - I will coordinate with Dr. Pierce to ensure the pill treatment is approved and delivered as soon as possible. If there are delays, we will explore starting immune therapy in the interim. - Please follow up with Dr. Pierce regularly for ongoing management of your lymphoma. I recommend staying in touch with her office for updates on your treatment. - I would like to see you in 6 months to monitor your progress and ensure the treatment is effective. If you have any new or worsening symptoms, such as severe fatigue, significant bruising or bleeding, or difficulty breathing, please contact our office or seek medical attention immediately. documented in this encounter [facility] 02-10-2025 Note [facility] 02-10-2025 History of Present illness Narrative Additional intake questions: Has the patient had fever, nausea, vomiting, diarrhea, constipation, fatigue for > 1 week? Yes, fatigue and Provider Notified Does the patient have a decreased appetite? Yes Does patient want to see a Electric Motor Repair Supervisor? No (yes to any of above refer patient to schedulers for dietitian appointment) ) Does patient have any new or increased numbness or tingling of extremities? No Is patient interested in fertility information? No Does patient need any prescription refills? No Does patient have an advanced directive in place? No, Patient refused referral to Social Work or [facility] Hematologic Oncology and Blood Disorders PATIENT NAME: Tere Barone DATE OF : 1950 ATTENDING STAFF: Gila Braxton MD Hematology/Oncology DATE OF SERVICE: 02/10/2025 REASON FOR CONSULT: Mantle cell lymphoma (MCL) REQUESTING PHYSICIAN: Sofy Rabago [id number] [facility] [id number] . HISTORY OF PRESENT ILLNESS: This patient was seen at the request of Dr.Louis Osman Rabago. My findings and recommendations will be communicated back to via EMR. History was obtained from the patient and from review of the patient's old medical records. Recording using [employer] software for draft documentation of the visit was discussed with the patient/authorized promotions representative; all questions welcomed and answered. Patient/authorized promotions representative agreed to proceed This is a 74 year old male with DMII, vascular dementia, hyperlipidemia, essential hypertension, JOE, carotid artery stenosis, CVA, GERD, Tsang esophagus, who presents for a consultation regarding MCL. He initially presented to [facility] from 12/06/2024 to 12/10/2024 for nausea and vomiting where he was discovered to have an obstructive left ureteral stone with hydronephrosis and anemia. Hemoglobin reached a hipolito of 5.6 g/dL and he required 3 units of red cells transfusion. A direct antiglobulin test was positive and he was diagnosed with warm autoimmune hemolytic anemia. He also had auto Anti-E antibodies. Antibody identification was performed at the [facility]. 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 Duodenum was biopsied for celiac disease. 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 He underwent a bone marrow biopsy on 01/06/2025 that demonstrated mantle cell lymphoma involving approximately 40% of AN otherwise normocellular bone marrow. The karyotype was complex and demonstrated t(11;14) He was admitted at [facility] between 01/06 and 01/12 again for hyperglycemic hyperosmolar state. After he was stabilized in the ICU, he was transferred to [facility] lymphoma/myeloma service for further evaluation and treatment. He underwent a left axillary core lymph node biopsy on 01/19/2025 that redemonstrated mantle cell lymphoma. A PET CT scan on 01/22/2025 showed multistation FDG avid lymphadenopathy. He was hospitalized at [facility] again 01/24-01/28 for COVID and was treated with 3 days of remdesivir. He presents today in the company of his . She recounts his history. He does not speak. Over the past 1-2 years, the patient has experienced significant weight loss, decreasing from approximately 275 lbs to 167 lbs. This weight loss was initially attributed to dietary changes for diabetes management, but has recently become more concerning due to a marked decrease in appetite and food intake. He reportedly consumes minimal food despite efforts to provide high-calorie meals and supplements. He denies dysphagia but reports altered taste and early satiety. He also reports fatigue, spending most of the day in bed and experiencing difficulty getting up. He has had multiple falls, the most recent occurring in the second week of January, coinciding with his bone marrow biopsy. This fall required assistance from paramedics. He denies abdominal pain, fevers, or drenching night sweats, but notes mild sweating at night. He has noticed lymphadenopathy in the cervical region. He denies oral ulcers, headaches, visual changes, tinnitus, or peripheral neuropathy. He also denies dyspnea or cough with activity. He has a history of heavy smoking and alcohol use, reportedly quitting both approximately 3-4 months ago. He smoked up to a carton of cigarettes weekly and consumed more than six alcoholic drinks nightly. 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 He was recently hospitalized for COVID-19, during which he received intravenous antivirals for three days. A PET scan was initially scheduled but delayed; a subsequent CT scan was performed before discharge. He was previously on prednisone but discontinued it abruptly, contrary to the recommended tapering schedule. He received a blood transfusion and was prescribed a high-dose prednisone regimen, which he completed without tapering. REVIEW OF SYSTEMS: Constitutional: (+) weight loss, (+) fatigue, (+) weakness, (-) fever, (-) night sweats Head: (-) headache Eyes: (-) blurred vision, (-) double vision, (-) visual changes Ears/Nose/Mouth/Throat: (+) dysgeusia, (-) dysphagia, (-) oral sores, (-) tinnitus Respiratory: (-) shortness of breath, (-) cough Gastrointestinal: (+) decreased appetite, (+) early satiety, (-) abdominal pain Hematologic/Lymphatic: (+) lymphadenopathy ALLERGIES: ALLERGIES No Known Allergies MEDICATIONS: sertraline (ZOLOFT) 50 mg tablet Take 1 tablet by mouth once daily. zinc sulfate 220 mg (50 mg zinc) capsule Take 1 capsule by mouth once daily for 29 doses. traZODone (DESYREL) 50 mg tablet Take 1 tablet by mouth daily at bedtime. zanubrutinib (BRUKINSA) 80 mg capsule Take 2 capsules by mouth two times a day. Blood-Glucose Meter,Continuous (FREESTYLE YESSENIA 3 READER) misc 1 each continuous. Blood-Glucose Sensor (FREESTYLE YESSENIA 3 PLUS SENSOR) lv 1 each once daily. glipiZIDE (GLUCOTROL XL) 2.5 mg 24 hr tablet Take 1 tablet by mouth once daily. metoprolol succinate ER (TOPROL XL) 25 mg 24 hr tablet Take 1 tablet by mouth once daily. aspirin 81 mg chewable tablet Take 1 tablet by mouth once daily. Cholecalciferol, Vitamin D3, 25 mcg (1,000 unit) cap Take 1 capsule by mouth once daily. cyanocobalamin (VITAMIN B-12) 500 mcg tablet Take 1 tablet by mouth every Sunday, Sunday, and Sunday. semaglutide (RYBELSUS) 14 mg tablet Take 1 tablet by mouth daily before breakfast. atorvastatin (LIPITOR) 80 mg tablet Take 1 tablet by mouth daily at bedtime. metFORMIN (GLUCOPHAGE) 500 mg tablet Take 2 tablets by mouth daily with breakfast. Blood-Glucose Meter To check blood sugar once a day. E11.9 any brand covered by insurance is ok Lancets (ONETOUCH ULTRASOFT LANCETS) To check blood sugar once a day. E11.9 any brand covered by insurance is ok blood sugar diagnostic (BLOOD GLUCOSE TEST) test strip To check blood sugar once a day. E11.9 any brand covered by insurance is ok acetaminophen (TYLENOL) 325 mg tablet Take 1-2 tablets by mouth every 6 hours as needed for pain or fever (specify). 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 Carotid artery occlusion Carpal tunnel syndrome of left wrist Carpal tunnel syndrome on right Chronic bilateral low back pain without sciatica 10/01/2017 Combined forms of age-related cataract of right eye 06/14/2021 COVID-19 08/03/2021 Dependence on nicotine from cigarettes Elevated troponin 07/23/2021 Essential hypertension 08/03/2021 Frequent falls 08/03/2021 Mixed hyperlipidemia Multiple falls 08/04/2021 Nicotine use disorder, F17.2 NS (nuclear sclerosis), right 06/16/2021 Obesity, Class I, BMI 30-34.9 08/03/2021 Osteoarthritis Posterior subcapsular polar age-related cataract of right eye 06/16/2021 Pseudophakia of left eye 09/2012 Sleep apnea Spinal stenosis Syncope 07/23/2021 Thoracic or lumbosacral neuritis or radiculitis, unspecified Type 2 diabetes mellitus with hyperglycemia (HCC) 08/03/2021 PAST SURGICAL HISTORY: PAST SURGICAL HISTORY Procedure Laterality Date ARTHRD ANT INTERBODY MIN DSC LUMBAR 1988 NEUROPLASTY &/TRANSPOS MEDIAN NRV CARPAL TUNNE 2008 Carpal tunnel decomp Lt. XCAPSL CTRC RMVL INSJ IO LENS PROSTH W/O ECP 09/2012 Cataract Extraction with PC IOL left SOCIAL HISTORY: He lives in [place], [place]. He quit smoking around November 2024. He started around [age] years old, and he stopped for a period of around 10 years. He was a daily drinker of at least a six pack nightly until around August 2024. 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 FAMILY HISTORY: FAMILY HISTORY Problem Relation Age of Onset Diabetes Mother Heart Mother Hypertension Mother Stroke Mother Cataract Mother Glaucoma Mother Macular Degen Father Parkinsonism Sister Asthma Sister Headache Brother Heart Attack Brother PHYSICAL EXAM: BP 108/57 Pulse 110 Temp 36.6 C (97.8 F) (Temporal) Resp 15 Wt 76 kg (167 lb 8.8 oz) SpO2 97% BMI 24.04 kg/m KARNOFSKY INDEX SCALE: 50 - Requires considerable assistance and frequent medical care. ECOG PERFORMANCE STATUS: 3- Capable of only limited selfcare, confined to bed/chair > 50% of waking hrs. GENERAL: No acute distress. Cachectic. PSYCH: Alert and oriented x 3 HEENT: Neck supple LYMPH NODES: There is no palpable anterior or posterior cervical, supraclavicular, axillary, or inguinal lymphadenopathy. HEART: Regular rate and rhythm. LUNGS: Clear to auscultation bilaterally. ABDOMEN: Soft, nondistended, nontender. There is no palpable splenomegaly EXTREMITIES: No edema. NEURO: grossly intact SKIN: No rash. DATA REVIEW: I personally reviewed the patient's data and medical records. LAB DATA REVIEWED: ( [facility]) PET Scan: Lymphomatous involvement near the stomach or kidney region. (January) Bone Marrow Biopsy: Mantle cell lymphoma. IMAGING DATA REVIEWED: 01/22/2025 PET/CT: IMPRESSION: HELENE DISEASE: * Mildly metabolically active nodes above and below the diaphragm. Greatest uptake is noted within left supraclavicular adenopathy (SUV max 3.8). EXTRANODAL DISEASE: * Previously described infiltrative appearance of the inferior aspect of the left parotid gland is mildly metabolically active, may represent lymphomatous involvement. * Splenomegaly without splenic hypermetabolism. * No metabolically active marrow infiltration. ADDITIONAL FINDINGS: * Large volume stool within the rectum. Deauville Score: 3-4 PATHOLOGY DATA REVIEWED: 01/06/2025 bone marrow biopsy: Addendum The purpose of this addendum is to report the results of a P53 immunostain performed on the bone marrow core biopsy (block B1). P53 immunohistochemistry demonstrates weak, heterogeneous staining in a small subset of the lymphoma cells. The above final diagnosis remains unchanged. Addendum electronically signed by Indy Mobley MD on 01/09/2025 at 1822 EDT FINAL DIAGNOSIS A-C. Bone marrow, core biopsy, aspirate smears, clot section, and touch imprint: - Mantle cell lymphoma involving approximately 40% of a normocellular (20-30%) bone marrow. - Background bone marrow with trilineage hematopoiesis. - Stainable iron is present. - See comment. D. Peripheral blood smear: - Normocytic anemia. MMN 01/07/25 at 1224 EDT Diagnosis Comment The patient has a history of autoimmune hemolytic anemia. Imaging has demonstrated lymphadenopathy. Flow cytometry performed on the bone marrow aspirate demonstrated involvement by a CD5-positive, lambda-restricted B-cell population. 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 The background bone marrow demonstrates maturing trilineage hematopoiesis without overt evidence of dysplasia. Immunohistochemistry for P53 is pending and will be reported separately in an addendum. Of note, there was insufficient material received to perform molecular studies on this specimen. Cytogenetic studies remain pending. Correlation with the clinical and imaging findings is suggested. Preliminary findings were discussed with Marti Garcia CNP by Dr. Kike Mobley via phone call on 01/07/25 at approximately 1623. IMPRESSION/PLAN: I explained to the patient and HIS that mantle cell lymphoma (MCL) is generally an aggressive form of non-Hodgkin lymphoma which is often highly responsive to chemoimmunotherapy but has a tendency to almost always relapse. It is a rare subtype of non-Hodgkin lymphoma and comprises about 3% of all newly diagnosed patients. We discussed that the natural history can be quite heterogeneous, and tends to demonstrate features of both aggressive and indolent lymphomas. It is diagnosed with a characteristic morphology and immunophenotype, usually consisting of a CD5/CD20/FMC7/cyclin D1-positive population that often lacks expression of CD23 and CD200. The t(11;14) is characteristic, though there can be cryptic translocations or cyclin D1-negative cases, albeit very rarely. Classic MCL demonstrates SOX11 positivity with, often, notable, splenic, and bone marrow involvement, typically of advanced stage. Prognostication is achieved with the MIPI score as well as assessments of the Ki-67 index and mutations in TP53. Regarding these, the p53 immunostain shows weak staining with heterogeneity, potentially suggesting an intact p53 genetic locus, low available material for definitive genetic testing is not available from either of the 2 biopsies obtained so far. In addition, Ki-67 was exceedingly low (less than 5%) in the lymph node biopsy. We discussed that the current treatment paradigm consists in balancing treatment efficacy with toxicity according to the characteristics of the treatment regimens and patient-related factors. Toward this end, for older individuals or those not able to tolerate aggressive induction regimens, John's tyrosine kinase inhibitors (BTKis) as single agents with or without combination with anti-CD20 monoclonal antibodies can be a very effective option for treating MCL. His initial course of high-dose prednisone does serve as a form of therapy for his MCL in combination with the WAIHA, though steroid monotherapy will be insufficient to control the disease. As such, he is preparing to initiate treatment with zanubrutinib. Given the activity of targeted agents as monotherapy, several combinations are currently under investigation and efficacy studies are available throughout the published literature. For example, the combination of a acalabrutinib with rituximab achieved a best CR rate of 90% and a 2-year PFS of 92%. Current ongoing phase 3 studies of such combinations include the MANGROVE trial and [facility] [id number], where zanubrutinib is used in combination with rituximab. As such, I recommend that he start treatment with Zanubrutinib immediately and a disease reassessment should be done after about 2 months of continuous uninterrupted therapy. This would be continued indefinitely as long as he achieves a response and derive clinical benefit. If the response needs to be deepened or enhanced, the addition of rituximab for 4 weekly doses followed by 11 monthly doses could be considered as well. Warm autoimmune hemolytic anemia (WAIHA): A problem that was first discovered around November 2024 and, in fact, was the index event that preceded his diagnosis of MCL. Though uncommonly associated with MCL, WAIHAs are more often than not secondary, and often due to an underlying non-Hodgkin lymphoma. The treatment of the hemolytic anemia is based in the treatment of the underlying condition. As in (1), initiation of zanubrutinib should commence and, ideally, in combination with rituximab to reduce the hemolytic anemia and taper steroids as rapidly as possible. At risk for infection due to immunosuppression: I recommend acyclovir throughout rituximab-containing therapies) 6 months thereafter for zoster prevention. Access: None indicated. Advance care planning: Not discussed today. Disposition: He may return to me at any time, as desired. The patient was able to ask questions and these were answered in detail. Thank you for the opportunity of participating in their care. I spent a total of 60 minutes on the date of the service which included preparing to see the patient, [id number] patient care, completing clinical documentation, obtaining and/or reviewing separately obtained history, performing a medically appropriate examination, counseling and educating the patient/family/caregiver, ordering medications, tests, or procedures, communicating with other HCPs (not separately reported), and independently interpreting results (not separately reported). Medical Decision Making: Problems: Low: Stable chronic illness High: Illness/injury w/ threat to life/body function Data: Unique test result(s) reviewed: 3+ Unique test(s) ordered: 1 Assessment requiring an independent historian(s) Independent interpretation of test from other physician/QHCP Risk: High: High risk from testing/treatment and Drug therapy requiring intensive monitoring Medical Decision Making Level: 5 - High Gila Braxton MD Cc: Sofy Rabago [id number] [facility] [id number] . documented in this encounter [facility] 02-10-2025 Note [facility] 02-10-2025 Note [facility] 02-10-2025 History of Present illness Narrative Value Based Care Coordination Chart Review Provider Action / FYI: Upon review of patient chart, the patient is excluded from Transitional Disease Management Patient excluded from TCM outreach: SNF Action taken: No action needed Mer Leon RN February 10, 2025 8:11 AM documented in this encounter [facility] 02-06-2025 Note [facility] 02-06-2025 Note [facility] 02-06-2025 History of Present illness Narrative Images from the original note were not included. Connected Care Unit Progress Note Patient Name: Tere Barone Patient Facility: [facility] Admit Date 01/28/25 Level of Care: Skilled SNF Attending: Adriana Pettit M.D. Service Date: 02/06/2025 Code Status: full Chief Complaint: Evaluation regarding management of acute and chronic conditions in snf setting ASSESSMENT AND PLAN Generalized weakness (primary encounter diagnosis) Covid-19 - admitted with worsening weakness and fatigue, found to be covid positive. Treated with course of remdesivir - covid positive 01/24 , currently asymptomatic - neg for wheezes or diminished breath sounds - close monitor of symptoms, respiratory status, vs - continue isolation pre facility protocol Dementia with behavioral disturbance (hcc) - [facility], c/w zoloft 50 mg daiy and trazodone 25 mg - recommended to follow up as OP - more alert and awake - participated in group activity today Autoimmune hemolytic anemia, unspecified (hcc) Mantle cell lymphoma, unspecified body region (hcc) - newly diagnosed mantle cell - follow up with hem/onc 02/03 completed Appointments for Next 60 Days Date Time Provider Location Dept Phone 02/10/2025 10:00 AM [place] GILA Zak [facility] [phone] 02/17/2025 3:00 PM PRISCILLA SALAS [facility] [phone] HPI: (Per hospital discharge summary) Tere Barone is a 74-year-old male with past medical history significant for CAD, dementia, newly diagnosed mantle cell lymphoma (not yet on therapy), 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 Patient was admitted to the hospital for further treatment and evaluation. Patient was found to be positive for COVID 19. Started on remdesivir therapy. ID was consulted. Recommended continuing 3-day course of antivirals. Patient showed incremental improvement in clinical course. As patient was not hypoxic did not start steroid therapy. PT/OT recommended patient would benefit from [facility] facility. Patient also did have history of mantle cell lymphoma/autoimmune hemolytic anemia. Hematology was consulted and felt that patient was not in flareup. Continue outpatient follow-up with hematology. During patient's hospital course also noted to have depression. Behavioral health was consulted and recommended that patient start Zoloft 50 mg daily, trazodone 25 mg at bedtime and following up with outpatient psych. Patient's hospital course and need for follow-up were explained to patient and for member who are in understanding. Patient will need to follow-up with primary care physician, hematology and psychiatry soon after discharge from hospital. INTERVAL HPI Patient seen in room, resting comfortably. No complaints at this time. at the bedside, reports improvement. Patient is more awake and alert. No reported bowel or bladder issues. Appetite is fair, says this is unchanged and will eat from brought in Participating in therapy without complication, no c/o pain. No acute concern per nursing. Reviewed chart notes and vs at facility, hemodynamically stable. 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 Carotid artery occlusion Carpal tunnel syndrome of left wrist Carpal tunnel syndrome on right Chronic bilateral low back pain without sciatica 10/01/2017 Combined forms of age-related cataract of right eye 06/14/2021 COVID-19 08/03/2021 Dependence on nicotine from cigarettes Elevated troponin 07/23/2021 Essential hypertension 08/03/2021 Frequent falls 08/03/2021 Mixed hyperlipidemia Multiple falls 08/04/2021 Nicotine use disorder, F17.2 NS (nuclear sclerosis), right 06/16/2021 Obesity, Class I, BMI 30-34.9 08/03/2021 Osteoarthritis Posterior subcapsular polar age-related cataract of right eye 06/16/2021 Pseudophakia of left eye 09/2012 Sleep apnea Spinal stenosis Syncope 07/23/2021 Thoracic or lumbosacral neuritis or radiculitis, unspecified Type 2 diabetes mellitus with hyperglycemia (HCC) 08/03/2021 SUBJECTIVE: Review of Systems Constitutional: Negative for activity change, appetite change, fatigue, fever and unexpected weight change. Respiratory: Negative for apnea, cough, chest tightness, shortness of breath and wheezing. Cardiovascular: Negative for chest pain, palpitations and leg swelling. Gastrointestinal: Negative for abdominal pain, blood in stool, constipation, diarrhea, nausea and vomiting. Genitourinary: Negative for decreased urine volume, difficulty urinating, dysuria, flank pain, frequency and urgency. Musculoskeletal: Negative for arthralgias. Neurological: Negative for dizziness, light-headedness and headaches. Psychiatric/Behavioral: Negative for agitation and sleep disturbance. Medications: Medications listed in Epic during SNF admission may not be current. Refer to facility record. Patient records, current medications, most recent labs, family/social history (unchanged) Reviewed. Refer to facility records. OBJECTIVE: Labs/diagnostics: Hemoglobin (g/dL) Date Value 01/26/2025 8.0 08/05/2021 13.7 Hematocrit (%) Date Value 01/26/2025 26.7 08/05/2021 37.9 WBC (k/uL) Date Value 01/26/2025 4.41 08/05/2021 6.95 Glucose (mg/dL) Date Value 01/26/2025 229 08/05/2021 146 Potassium (mmol/L) Date Value 01/26/2025 4.4 08/05/2021 3.5 Sodium (mmol/L) Date Value 01/26/2025 140 08/05/2021 135 Chloride (mmol/L) Date Value 01/26/2025 109 08/05/2021 101 CO2 (mmol/L) Date Value 01/26/2025 21 08/05/2021 23 Creatinine (mg/dL) Date Value 01/26/2025 1.09 08/05/2021 0.79 BUN (mg/dL) Date Value 01/26/2025 14 08/05/2021 11 Anion Gap (mmol/L) Date Value 01/26/2025 10 08/05/2021 11 Calcium (mg/dL) Date Value 08/05/2021 8.2 Calcium, Total (mg/dL) Date Value 01/26/2025 7.9 Vital Signs: reviewed facility VS Physical Exam: Physical Exam Vitals and nursing note reviewed. Constitutional: General: He is not in acute distress. Appearance: He is not ill-appearing. Comments: Chronically ill appearing Eyes: Conjunctiva/sclera: Conjunctivae normal. Pupils: Pupils are equal, round, and reactive to light. Neck: Thyroid: No thyromegaly. Cardiovascular: Rate and Rhythm: Normal rate and regular rhythm. Heart sounds: Normal heart sounds. Pulmonary: Effort: Pulmonary effort is normal. No respiratory distress. Breath sounds: Normal breath sounds. No wheezing. Abdominal: General: Bowel sounds are normal. There is no distension. Palpations: Abdomen is soft. Tenderness: There is no abdominal tenderness. Musculoskeletal: General: No swelling, tenderness or deformity. Right lower leg: No edema. Left lower leg: No edema. Skin: General: Skin is warm and dry. Coloration: Skin is not pale. Neurological: Mental Status: He is alert and oriented to person, place, and time. Psychiatric: Mood and Affect: Mood normal. Behavior: Behavior normal. POC discussed with appropriate parties and nursing staff. Documentation from the previous visit of 8/26/25 has been copied forward. I have reviewed the chart, re-preformed the PE and ROS and updated where appropriate. Current medical decision made today. Electronically signed by Tarun Alicia APRN.[email or web address] documented in this encounter [facility] 02-03-2025 Note [facility] 02-03-2025 History of Present illness Narrative Images from the original note were not included. Connected Care Unit Progress Note Patient Name: Tere Barone Patient Facility: [facility] Admit Date 01/28/25 Level of Care: Skilled SNF Attending: Adriana Pettit M.D. Service Date: 02/03/2025 Code Status: full Chief Complaint: Evaluation regarding management of acute and chronic conditions in snf setting ASSESSMENT AND PLAN Generalized weakness (primary encounter diagnosis) Covid-19 - admitted with worsening weakness and fatigue, found to be covid positive. Treated with course of remdesivir - covid positive 01/24 , currently asymptomatic - close monitor of symptoms, respiratory status, vs - continue isolation pre facility protocol Dementia with behavioral disturbance (hcc) - [facility], started on zoloft 50 mg daiy and trazodone 25 mg - recommended to follow up as OP - family at the bedside, noting improvement, more awake & alert Autoimmune hemolytic anemia, unspecified (hcc) Mantle cell lymphoma, unspecified body region (hcc) - newly diagnosed mantle cell - follow up with hem/onc 02/03 Appointments for Next 60 Days Date Time Provider Location Dept Phone 02/03/2025 10:40 AM [facility] [phone] 02/10/2025 10:00 AM GILA B[facility] [phone] 02/17/2025 3:00 PM PRISCILLA SALAS [facility] [phone] HPI: (Per hospital discharge summary) Tere Barone is a 74-year-old male with past medical history significant for CAD, dementia, newly diagnosed mantle cell lymphoma (not yet on therapy), 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 Patient was admitted to the hospital for further treatment and evaluation. Patient was found to be positive for COVID 19. Started on remdesivir therapy. ID was consulted. Recommended continuing 3-day course of antivirals. Patient showed incremental improvement in clinical course. As patient was not hypoxic did not start steroid therapy. PT/OT recommended patient would benefit from [facility] facility. Patient also did have history of mantle cell lymphoma/autoimmune hemolytic anemia. Hematology was consulted and felt that patient was not in flareup. Continue outpatient follow-up with hematology. During patient's hospital course also noted to have depression. Behavioral health was consulted and recommended that patient start Zoloft 50 mg daily, trazodone 25 mg at bedtime and following up with outpatient psych. Patient's hospital course and need for follow-up were explained to patient and for member who are in understanding. Patient will need to follow-up with primary care physician, hematology and psychiatry soon after discharge from hospital. INTERVAL HPI Patient seen in room, resting comfortably. No complaints at this time. at the bedside, reports improvement. Patient is more awake and alert. No reported bowel or bladder issues. Appetite is fair, says this is unchanged and will eat from brought in Participating in therapy without complication, no c/o pain. No acute concern per nursing. Reviewed chart notes and vs at facility, hemodynamically stable. 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 Carotid artery occlusion Carpal tunnel syndrome of left wrist Carpal tunnel syndrome on right Chronic bilateral low back pain without sciatica 10/01/2017 Combined forms of age-related cataract of right eye 06/14/2021 COVID-19 08/03/2021 Dependence on nicotine from cigarettes Elevated troponin 07/23/2021 Essential hypertension 08/03/2021 Frequent falls 08/03/2021 Mixed hyperlipidemia Multiple falls 08/04/2021 Nicotine use disorder, F17.2 NS (nuclear sclerosis), right 06/16/2021 Obesity, Class I, BMI 30-34.9 08/03/2021 Osteoarthritis Posterior subcapsular polar age-related cataract of right eye 06/16/2021 Pseudophakia of left eye 09/2012 Sleep apnea Spinal stenosis Syncope 07/23/2021 Thoracic or lumbosacral neuritis or radiculitis, unspecified Type 2 diabetes mellitus with hyperglycemia (HCC) 08/03/2021 SUBJECTIVE: Review of Systems Constitutional: Negative for activity change, appetite change, fatigue, fever and unexpected weight change. Respiratory: Negative for apnea, cough, chest tightness and shortness of breath. Cardiovascular: Negative for chest pain, palpitations and leg swelling. Gastrointestinal: Negative for abdominal pain, blood in stool, constipation, diarrhea, nausea and vomiting. Genitourinary: Negative for decreased urine volume, difficulty urinating, dysuria, flank pain, frequency and urgency. Musculoskeletal: Negative for arthralgias. Neurological: Negative for dizziness, light-headedness and headaches. Psychiatric/Behavioral: Negative for sleep disturbance. Medications: Medications listed in Epic during SNF admission may not be current. Refer to facility record. Patient records, current medications, most recent labs, family/social history (unchanged) Reviewed. Refer to facility records. OBJECTIVE: Labs/diagnostics: Hemoglobin (g/dL) Date Value 01/26/2025 8.0 08/05/2021 13.7 Hematocrit (%) Date Value 01/26/2025 26.7 08/05/2021 37.9 WBC (k/uL) Date Value 01/26/2025 4.41 08/05/2021 6.95 Glucose (mg/dL) Date Value 01/26/2025 229 08/05/2021 146 Potassium (mmol/L) Date Value 01/26/2025 4.4 08/05/2021 3.5 Sodium (mmol/L) Date Value 01/26/2025 140 08/05/2021 135 Chloride (mmol/L) Date Value 01/26/2025 109 08/05/2021 101 CO2 (mmol/L) Date Value 01/26/2025 21 08/05/2021 23 Creatinine (mg/dL) Date Value 01/26/2025 1.09 08/05/2021 0.79 BUN (mg/dL) Date Value 01/26/2025 14 08/05/2021 11 Anion Gap (mmol/L) Date Value 01/26/2025 10 08/05/2021 11 Calcium (mg/dL) Date Value 08/05/2021 8.2 Calcium, Total (mg/dL) Date Value 01/26/2025 7.9 Vital Signs: reviewed facility VS Physical Exam: Physical Exam Vitals and nursing note reviewed. Constitutional: General: He is not in acute distress. Comments: Chronically ill appearing Eyes: Conjunctiva/sclera: Conjunctivae normal. Pupils: Pupils are equal, round, and reactive to light. Neck: Thyroid: No thyromegaly. Cardiovascular: Rate and Rhythm: Normal rate and regular rhythm. Heart sounds: Normal heart sounds. Pulmonary: Effort: Pulmonary effort is normal. No respiratory distress. Breath sounds: Normal breath sounds. Abdominal: General: Bowel sounds are normal. Palpations: Abdomen is soft. Musculoskeletal: Right lower leg: No edema. Left lower leg: No edema. Skin: General: Skin is warm and dry. Neurological: Mental Status: He is alert and oriented to person, place, and time. Psychiatric: Mood and Affect: Mood normal. Behavior: Behavior normal. POC discussed with appropriate parties and nursing staff. Documentation from the previous visit of 01/29/25 has been copied forward. I have reviewed the chart, re-preformed the PE and ROS and updated where appropriate. Current medical decision made today. Electronically signed by Rowena Elizabeth APRN.BRICK OR BLOCK MAKER documented in this encounter [facility] 01-29-2025 Note [facility] 01-29-2025 History of Present illness Narrative POPULATION HEALTH NAVIGATION OUTREACH Action/FYI Pt is undergoing cancer treatment . Chart Review Reason for Outreach Care Gap/HCC or Scheduling Wellness Visits Care Gaps due: N/A Patient Contacted: Unable or unnecessary to reach patient: Chart Review only Navigation Signature: Nimesh Cuellar January 29, 2025 2:48 PM documented in this encounter [facility] 01-29-2025 Note [facility] 01-29-2025 History of Present illness Narrative Images from the original note were not included. Connected Care Unit Progress Note Patient Name: Tere Barone Patient Facility: [facility] Admit Date 01/28/25 Level of Care: Skilled SNF Attending: Adriana Pettit M.D. Service Date: 01/29/2025 Code Status: full Chief Complaint: Evaluation regarding management of acute and chronic conditions in snf setting ASSESSMENT AND PLAN Generalized weakness (primary encounter diagnosis) Covid-19 - admitted with worsening weakness and fatigue, found to be covid positive. Treated with course of remdesivir - covid positive 01/24 , currently asymptomatic - close monitor of symptoms, respiratory status, vs - continue isolation pre facility protocol Dementia with behavioral disturbance (hcc) - [facility], started on zoloft 50 mg daiy and trazodone 25 mg - recommended to follow up as OP Autoimmune hemolytic anemia, unspecified (hcc) Mantle cell lymphoma, unspecified body region (hcc) - newly diagnosed mantle cell - follow up with hem/onc 02/03 Appointments for Next 60 Days Date Time Provider Location Dept Phone 02/02/2025 3:00 PM GILA ISAAC [facility] [phone] 02/03/2025 10:40 AM SAMM KC [facility] [phone] 02/10/2025 10:00 AM GILA BRAXTON [facility] [phone] 02/17/2025 3:00 PM PRISCILLA SALAS [facility] [phone] HPI: (Per hospital discharge summary) Tere Barone is a 74-year-old male with past medical history significant for CAD, dementia, newly diagnosed mantle cell lymphoma (not yet on therapy), 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 Patient was admitted to the hospital for further treatment and evaluation. Patient was found to be positive for COVID 19. Started on remdesivir therapy. ID was consulted. Recommended continuing 3-day course of antivirals. Patient showed incremental improvement in clinical course. As patient was not hypoxic did not start steroid therapy. PT/OT recommended patient would benefit from [facility] facility. Patient also did have history of mantle cell lymphoma/autoimmune hemolytic anemia. Hematology was consulted and felt that patient was not in flareup. Continue outpatient follow-up with hematology. During patient's hospital course also noted to have depression. Behavioral health was consulted and recommended that patient start Zoloft 50 mg daily, trazodone 25 mg at bedtime and following up with outpatient psych. Patient's hospital course and need for follow-up were explained to patient and for member who are in understanding. Patient will need to follow-up with primary care physician, hematology and psychiatry soon after discharge from hospital. Interval HPI: Patient is seen alone. He is alert, calm and cooperative during exam. Feels okay, has no complaints. Denies chest pains, tightness, shortness of breath or cough. There are no reported concerns for bowel or bladder issues. Patient. is eating and drinking fluids appropriately, denies nausea or vomiting. Reviewed chart notes, vs and labs at facility. Patient. participating in PT/OT without complications. Per nursing staff there are no acute changes to be addressed at this time. 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 Carotid artery occlusion Carpal tunnel syndrome of left wrist Carpal tunnel syndrome on right Chronic bilateral low back pain without sciatica 10/01/2017 Combined forms of age-related cataract of right eye 06/14/2021 COVID-19 08/03/2021 Dependence on nicotine from cigarettes Elevated troponin 07/23/2021 Essential hypertension 08/03/2021 Frequent falls 08/03/2021 Mixed hyperlipidemia Multiple falls 08/04/2021 Nicotine use disorder, F17.2 NS (nuclear sclerosis), right 06/16/2021 Obesity, Class I, BMI 30-34.9 08/03/2021 Osteoarthritis Posterior subcapsular polar age-related cataract of right eye 06/16/2021 Pseudophakia of left eye 09/2012 Sleep apnea Spinal stenosis Syncope 07/23/2021 Thoracic or lumbosacral neuritis or radiculitis, unspecified Type 2 diabetes mellitus with hyperglycemia (HCC) 08/03/2021 SUBJECTIVE: Review of Systems Constitutional: Negative for activity change, appetite change, fatigue and fever. Respiratory: Negative for cough and shortness of breath. Cardiovascular: Negative for chest pain, palpitations and leg swelling. Gastrointestinal: Negative for abdominal pain, blood in stool, constipation, diarrhea, nausea and vomiting. Genitourinary: Negative for decreased urine volume, difficulty urinating, dysuria, flank pain, frequency and urgency. Musculoskeletal: Negative for arthralgias. Neurological: Negative for dizziness, light-headedness and headaches. Psychiatric/Behavioral: Negative for sleep disturbance. Medications: Medications listed in Epic during SNF admission may not be current. Refer to facility record. Patient records, current medications, most recent labs, family/social history (unchanged) Reviewed. Refer to facility records. OBJECTIVE: Labs/diagnostics: Hemoglobin (g/dL) Date Value 01/26/2025 8.0 08/05/2021 13.7 Hematocrit (%) Date Value 01/26/2025 26.7 08/05/2021 37.9 WBC (k/uL) Date Value 01/26/2025 4.41 08/05/2021 6.95 Glucose (mg/dL) Date Value 01/26/2025 229 08/05/2021 146 Potassium (mmol/L) Date Value 01/26/2025 4.4 08/05/2021 3.5 Sodium (mmol/L) Date Value 01/26/2025 140 08/05/2021 135 Chloride (mmol/L) Date Value 01/26/2025 109 08/05/2021 101 CO2 (mmol/L) Date Value 01/26/2025 21 08/05/2021 23 Creatinine (mg/dL) Date Value 01/26/2025 1.09 08/05/2021 0.79 BUN (mg/dL) Date Value 01/26/2025 14 08/05/2021 11 Anion Gap (mmol/L) Date Value 01/26/2025 10 08/05/2021 11 Calcium (mg/dL) Date Value 08/05/2021 8.2 Calcium, Total (mg/dL) Date Value 01/26/2025 7.9 Vital Signs: reviewed facility VS Physical Exam: Physical Exam Vitals and nursing note reviewed. Constitutional: General: He is not in acute distress. Comments: Chronically ill appearing HENT: Head: Normocephalic and atraumatic. Eyes: Conjunctiva/sclera: Conjunctivae normal. Pupils: Pupils are equal, round, and reactive to light. Neck: Thyroid: No thyromegaly. Cardiovascular: Rate and Rhythm: Normal rate and regular rhythm. Heart sounds: Normal heart sounds. Pulmonary: Effort: Pulmonary effort is normal. Breath sounds: Normal breath sounds. Abdominal: General: Bowel sounds are normal. Palpations: Abdomen is soft. Musculoskeletal: Right lower leg: No edema. Left lower leg: No edema. Skin: General: Skin is warm and dry. Neurological: Mental Status: He is alert and oriented to person, place, and time. Psychiatric: Mood and Affect: Mood normal. Behavior: Behavior normal. POC discussed with appropriate parties and nursing staff. Electronically signed by Rowena Elizabeth APRN.BRICK OR BLOCK MAKER documented in this encounter [facility] 01-27-2025 Note [facility] 01-27-2025 Note [facility] 01-26-2025 Telephone encounter Note Patient was seen by Dr. Tere Patel with [facility] hem/oncology on 01/25/2025 The note and recommendations are in his chart [facility] inpatient hem/onc team will follow patient while at [facility]. July Pierce MD January 26, 2025 5:59 PM [facility] Work Phone: 01-26-2025 Miscellaneous Notes Patient was seen by Dr. Tere Patel with [facility] hem[facility]oncology on 01/25/2025 The note and recommendations are in his chart [facility] inpatient hem/onc team will follow patient while at [facility]. July Pierce MD January 26, 2025 5:59 PM Patient's called and states that Justin is in the hospital. Voices concerns that he needs treatment but he keep on delaying due to being hospitalized. was asking he could be seen while in the hospital? documented in this encounter [facility] 01-26-2025 Note [facility] 01-26-2025 Telephone encounter Note Images from the original note were not included. Prior authorization approved Payer: Mando [phone] Note from payer: KEYON Case: [id number], Status: Approved, Coverage Starts on: 06/11/2024 12:00:00 AM, Coverage Ends on: 06/10/2025 12:00:00 AM. Questions? Contact . Approval Details Authorized from June 11, 2024 to June 10, 2025 [facility] 01-26-2025 Miscellaneous Notes Images from the original note were not included. Prior authorization approved Payer: Jackelin [phone] Note from payer: KEYON Case: [id number], Status: Approved, Coverage Starts on: 06/11/2024 12:00:00 AM, Coverage Ends on: 06/10/2025 12:00:00 AM. Questions? Contact . Approval Details Authorized from June 11, 2024 to June 10, 2025 ePA received for Blood-Glucose Meter,Continuous [place]FREESTYLE YESSENIA 3 READER[place] [facility] [place] documented in this encounter [facility] 01-26-2025 Telephone encounter Note Patient's called and states that Justin is in the hospital. Voices concerns that he needs treatment but he keep on delaying due to being hospitalized. was asking he could be seen while in the hospital? [facility] 01-26-2025 Telephone encounter Note ePA received for Blood-Glucose Meter,Continuous (FREESTYLE YESSENIA 3 READER[place] [facility] [place] [facility] 01-25-2025 Note [facility] 01-24-2025 Note SARS-COV-2 (AGENT OF COVID-19) RNA: Detected INFLUENZA A RNA: Not detected INFLUENZA B RNA: Not detected RESPIRATORY SYNCYTIAL VIRUS (RSV) RNA: Not detected [facility] Comment on above: Performed By: #### [id number] ####[facility] [id number] [place] [id number] [facility] 01-23-2025 Telephone encounter Note Spouse will call back with any changes to his condition [facility] 01-23-2025 Miscellaneous Notes Spouse will call back with any changes to his condition Noted, continue to monitor for any other signs or symptoms of worsening condition. Notify office for any additional changes. Scarlett Tan APRN.RHONDA Covering for Samm Kc DO Message relayed with understanding. Pt got up and ate dinner and went to the bathroom and is sitting up eating dinner a&o and doesn't seem as yellow. Pt spouse will continue to monitor him and take him to the ed if his symptoms change Agree with recommendations for ED for evaluation. Scarlett Tan APRN.CNP Covering for Samm Kc DO Reason for Conversation Jaundice Background Pt spouse calling in with C/O Pt looking yellow Pts spouse states Pt is not getting up as much today director on air asked for Vitals at time of triage 112/52 & recheck 106/48 97.2 F Eyes do not appear yellow per Pt Pt received blood transfusion last week and last Hemoglobin 8.8 on 01/12 Pt had a PET scan yesterday Pts spouse was very difficult to receive information from. director on air asked what is different or concerning that made you want to reach out to the Nurse Pts spouse states he just is not talking to me but this is normal, he don't like to talk tome Asked Pts spouse if urinating, Was told Pt has urinal and it is not full. Also stated Pt has not gotten up today. Pt is responding appropriately Pts spouse just repeating stated He is just quiet This spouse is very difficult t revive information from. Due to History and what Pts spouse is sharing, advised ER for evaluation. Advised to call 911 if Pt is unable to stand up. Spouse was agreeable but unsure if Pt will be agreeable Disposition Go to ED Now (or PCP Triage) Reason for Disposition Patient sounds very sick or weak to the triager 1. EYES: Denies 2. ONSET: A day 3. FEVER: Denies 97.2F 4. VOMITING: JAISON 5. DEHYDRATION: JAISON 6. ABDOMEN PAIN: JAISON 7. CONTACT: JAISON 8. CAUSE: Unknown 9. OTHER SYMPTOMS: Unknown Pts ex spouse states she is not in the room with him all the time and mccann snot know what he does 10. : N/A No Additional Information on file. Protocols Used [id number] documented in this encounter [facility] 01-23-2025 Telephone encounter Note Noted, continue to monitor for any other signs or symptoms of worsening condition. Notify office for any additional changes. Scarlett Tan APRN.CNP Covering for Samm Kc DO [facility] Work Phone: 01-23-2025 Telephone encounter Note Message relayed with understanding. Pt got up and ate dinner and went to the bathroom and is sitting up eating dinner a&o and doesn't seem as yellow. Pt spouse will continue to monitor him and take him to the ed if his symptoms change [facility] 01-23-2025 Telephone encounter Note Agree with recommendations for ED for evaluation. Scarlett Tan APRN.RHONDA Covering for Samm KcDO [facility] 01-23-2025 Telephone encounter Note Reason for Conversation Jaundice Background Pt spouse calling in with C/O Pt looking yellow Pts spouse states Pt is not getting up as much today director on air asked for Vitals at time of triage 112/52 & recheck 106/48 97.2 F Eyes do not appear yellow per Pt Pt received blood transfusion last week and last Hemoglobin 8.8 on 01/12 Pt had a PET scan yesterday Pts spouse was very difficult to receive information from. director on air asked what is different or concerning that made you want to reach out to the Nurse Pts spouse states he just is not talking to me but this is normal, he don't like to talk tome Asked Pts spouse if urinating, Was told Pt has urinal and it is not full. Also stated Pt has not gotten up today. Pt is responding appropriately Pts spouse just repeating stated He is just quiet This spouse is very difficult t revive information from. Due to History and what Pts spouse is sharing, advised ER for evaluation. Advised to call 911 if Pt is unable to stand up. Spouse was agreeable but unsure if Pt will be agreeable Disposition Go to ED Now (or PCP Triage) Reason for Disposition Patient sounds very sick or weak to the triager 1. EYES: Denies 2. ONSET: A day 3. FEVER: Denies 97.2F 4. VOMITING: JAISON 5. DEHYDRATION: JAISON 6. ABDOMEN PAIN: JAISON 7. CONTACT: JAISON 8. CAUSE: Unknown 9. OTHER SYMPTOMS: Unknown Pts ex spouse states she is not in the room with him all the time and mccann snot know what he does 10. : N/A No Additional Information on file. Protocols Used [id number] [facility] 01-22-2025 History of Present illness Narrative RADIOLOGY SERVICE PROGRESS NOTE SERVICE DATE: 01/22/2025 SERVICE TIME: 11:32 AM PATIENT IDENTITY VERIFICATION COMPLETED USING TWO (2) STANDARD IDENTIFIERS: Name and Date of confirmed by patient verbally FALL SCREENING: Has the patient had 2 falls in the last year or 1 fall with injury or currently using an Ambulatory Assistive Device (Walker, Cane, Wheelchair, Crutches, etc.)? No PATIENT GENDER DATA: .male ALLERGIES: Reviewed and unchanged MEDICATIONS REVIEWED: Yes PATIENT RELEVANT IMPLANT DATA REVIEWED: Not Applicable PATIENT PRESENTS WITH AN IMPLANTABLE OR ATTACHED CURER ACID DRUM: No CREATININE: Creatinine Date Value Ref Range Status 01/12/2025 1.19 0.73 - 1.22 mg/dL Final 01/11/2025 1.57 (H) 0.73 - 1.22 mg/dL Final 01/10/2025 1.36 (H) 0.73 - 1.22 mg/dL Final Estimated Glomerular Filtration Rate Date Value Ref Range Status 01/12/2025 64 >=60 mL/min/1.73m Final Comment: Estimated Glomerular Filtration Rate (eGFR) is calculated using the 2020 CKD-EPI creatinine equation. This equation utilizes serum creatinine, sex, and age as parameters. The creatinine assay has traceable calibration to isotope dilution-mass spectrometry. Refer to KDIGO guidelines for clinical interpretation. In patients with unstable renal function, e.g. those with acute kidney injury, the eGFR may not accurately reflect actual GFR. eGFR- Date Value Ref Range Status 08/05/2021 >60 Final P.O.C.T. RESULTS: N/A January 22, [address] PERFORMED: No IV SITE: Ambulatory: A peripheral IV was started in the Right antecubital site with a Angio cath: 22 gauge. POST EXAM PIV STATUS: Discontinued PROCEDURE TYPE: NM INJECT: PET/CT WHOLE BODY SCAN. 10.2 mCi F18 FDG. Administered By: Gila Valdovinos No other medications given.. ADMINISTRATION TIME: 1118 PATIENT DISCHARGED TO: Ambulatory patient, left NM department area. Is this a therapy: No A Diagnostic radioactive procedure has taken place, with no further precautions necessary other than routine body substance precautions. More information regarding radiation safety can be found using this link: [email or web address] SIGNATURE: Ligia Nolasco PATIENT NAME: Tere Barone DATE: January 22, 2025 TIME: 11:32 AM PAGER/CONTACT #: documented in this encounter [facility] 01-22-2025 Note [facility] 01-21-2025 Telephone encounter Note Please give verbal [facility] 01-21-2025 Miscellaneous Notes Please give verbal [facility] Soy/ KYLIE is calling Samm Kc DO today to request verbal orders for OT 1 x week for 4 weeks Call back Soy [phone] Patient has been identified by name and birthdate. Person calling: OT Soy Call patient at: on cell [phone] (home) [phone] (cell) Was an appointment scheduled: No Closing statement: Results or non-symptom based questions: Thank you for calling [facility], your call will be returned within the next business day. Cammiekimberli Gilman documented in this encounter [facility] 01-20-2025 Telephone encounter Note [facility] Soy/ KYLIE is calling Samm Kc DO today to request verbal orders for OT 1 x week for 4 weeks Call back Soy [phone] Patient has been identified by name and birthdate. Person calling: OT Soy Call patient at: on cell [phone] (home) [phone] (cell) Was an appointment scheduled: No Closing statement: Results or non-symptom based questions: Thank you for calling [facility], your call will be returned within the next business day. Cammie Gilman [facility] 01-19-2025 Progress note Formatting of t his note might be different from the original. Radiology Service Progress Note PATIENT NAME: Tere Barone DATE OF SERVICE: January 19, 2025 TIME: 1:44 PM PATIENT IDENTITY VERIFICATION COMPLETED USING TWO (2) IDENTIFIERS: Name and Date of confirmed by patient verbally. FALL SCREENING: Has the patient had 2 falls in the last year or 1 fall with injury or currently using an Ambulatory Assistive Device (Walker, Cane, Wheelchair, Crutches, etc.)? Yes - assisted by caregiver during visit PATIENT GENDER DATA: Assigned male at PATIENT RELEVANT IMPLANT DATA REVIEWED: Not Applicable PATIENT PRESENTS WITH AN IMPLANTABLE OR ATTACHED CURER ACID DRUM: N/A RADIOLOGY DEPARTMENT: Biopsy and Ultrasound PERIPHERAL IV DATA: Not applicable SIGNED BY: Marilee Esquivel January 19, 2025 1:44 PM [facility] 01-19-2025 Miscellaneous Notes Radiology Service Progress Note PATIENT NAME: Tere Barone DATE OF SERVICE: January 19, 2025 TIME: 1:44 PM PATIENT IDENTITY VERIFICATION COMPLETED USING TWO (2) IDENTIFIERS: Name and Date of confirmed by patient verbally. FALL SCREENING: Has the patient had 2 falls in the last year or 1 fall with injury or currently using an Ambulatory Assistive Device (Walker, Cane, Wheelchair, Crutches, etc.)? Yes - assisted by caregiver during visit PATIENT GENDER DATA: Assigned male at PATIENT RELEVANT IMPLANT DATA REVIEWED: Not Applicable PATIENT PRESENTS WITH AN IMPLANTABLE OR ATTACHED CURER ACID DRUM: N/A RADIOLOGY DEPARTMENT: Biopsy and Ultrasound PERIPHERAL IV DATA: Not applicable SIGNED BY: Marilee Esquivel January 19, 2025 1:44 PM documented in this encounter [facility] 01-18-2025 Telephone encounter Note The following approved medication requests have been transmitted electronically. Requested Prescriptions Signed Prescriptions Disp Refills Blood-Glucose Sensor (FREESTYLE YESSENIA 3 PLUS SENSOR) lv 5 each 11 Si each once daily. Authorizing Provider: SAMM CK Blood-Glucose Meter,Continuous (FREESTYLE YESSENIA 3 READER) misc 1 each 0 Si each continuous. Authorizing Provider: SAMM KC DO [facility] 01-18-2025 Miscellaneous Notes The following approved medication requests have been transmitted electronically. Requested Prescriptions Signed Prescriptions Disp Refills Blood-Glucose Sensor (FREESTYLE YESSENIA 3 PLUS SENSOR) lv 5 each 11 Si each once daily. Authorizing Provider: SAMM KC Blood-Glucose Meter,Continuous (FREESTYLE YESSENIA 3 READER) misc 1 each 0 Si each continuous. Authorizing Provider: SAMM KC DO Order pended for your review and approval if agreeable This is for the Freestyle Yessenia 3 [place] The following approved medication requests have been transmitted electronically. Requested Prescriptions Signed Prescriptions Disp Refills Blood-Glucose Sensor (FREESTYLE YESSENIA 3 PLUS SENSOR) lv 5 each 11 Si each once daily. Authorizing Provider: SAMM KC DO Justin is calling Samm Kc DO today to request a freestyle Yessenia 3+ reader be sent to [facility] in [place] on [address] Patient does have the sensors just no reader. Also patient has a flip phone and unable to add apps. Patient has been identified by name and birthdate. Duration of symptoms: ongoing Person calling: spouse: Bg Call patient at: on cell [phone] (home) [phone] (cell) Was an appointment scheduled: No Cammie Gilman documented in this encounter [facility] 01-16-2025 Telephone encounter Note Order pended for your review and approval if agreeable [facility] 01-16-2025 Telephone encounter Note This is for the Freestyle Yessenia 3 [place] [facility] 01-15-2025 Telephone encounter Note The following approved medication requests have been transmitted electronically. Requested Prescriptions Signed Prescriptions Disp Refills Blood-Glucose Sensor (FREESTYLE YESSENIA 3 PLUS SENSOR) lv 5 each 11 Si each once daily. Authorizing Provider: SAMM KC DO [facility] 01-15-2025 Telephone encounter Note Justin is calling Samm Kc DO today to request a [email or web address] Yessenia 3+ reader be sent to [facility] in [place] on [address] Patient does have the sensors just no reader. Also patient has a flip phone and unable to add apps. Patient has been identified by name and birthdate. Duration of symptoms: ongoing Person calling: spouse: Bg Call patient at: on cell [phone] (home) [phone] (cell) Was an appointment scheduled: Bindu [facility] 01-14-2025 Note [facility] 01-13-2025 Telephone encounter Note [facility] aware that Dr. Kc will follow. [facility] 01-13-2025 Miscellaneous Notes [facility] aware that Dr. Kc will follow. Will follow [facility] home health care is calling to confirm that Dr. Kc will follow patient for home health care. Justin is being discharged today. long-term, physical and occupational therapy requested. Please call [facility] back at [phone] documented in this encounter [facility] 01-12-2025 Telephone encounter Note Will follow [facility] 01-12-[address] [facility] home health care is calling to confirm that Dr. Kc will follow patient for home health care. Justin is being discharged today. long-term, physical and occupational therapy requested. Please call [facility] back at [phone] [facility] Work Phone: 01-12-2025 Note [facility] 01-11-2025 Note [facility] 01-10-2025 Note [facility] 01-09-2025 Note [facility] 01-09-2025 Note [facility] 01-09-2025 Telephone encounter Note Order canceled, patient is being transferred to [facility]. [facility] 01-09-2025 Miscellaneous Notes Order canceled, patient is being transferred to [facility]. Attempted to speak with Bg, I left a voicemail for her to return our call so we can assist in scheduling the PET Scan. Please contact patient's , Bg to schedule PET scan. Sheron Grimes documented in this encounter [facility] 01-09-2025 Telephone encounter Note Attempted to speak with Bg, I left a voicemail for her to return our call so we can assist in scheduling the PET Scan. [facility] 01-09-2025 Note [facility] 01-08-2025 Note [facility] 01-08-2025 Note [facility] 01-08-2025 Telephone encounter Note Please contact patient's , Bg to schedule PET scan. Sheron Grimes [facility] 01-08-2025 Telephone encounter Note Will follow [facility] 01-08-2025 Miscellaneous Notes Will follow Samm Kc, DO Please advise if you are agreeable to signing and following for HHC services? Our Clinicians will be sending the Plan of Care to you for review and approval. They will reach out for any appropriate orders required to provide home care services for the patient. We are not able to initiate HHC services without a following provider. Home care clinicians may also obtain orders from [facility] Providers Thank you and we would be happy to answer any questions. Rakel Briggs LPN 01/08/2025 3:22 PM documented in this encounter [facility] 01-08-2025 Telephone encounter Note Samm Kc, DO Please advise if you are agreeable to signing and following for HHC services? Our Clinicians will be sending the Plan of Care to you for review and approval. They will reach out for any appropriate orders required to provide home care services for the patient. We are not able to initiate HHC services without a following provider. Home care clinicians may also obtain orders from [facility] Thank you and we would be happy to answer any questions. Rakel Briggs LPN 01/08/2025 3:22 PM [facility] 01-08-2025 Note [facility] 01-08-2025 History of Present illness Narrative Transitional Care Management (TCM) Inpatient Outreach N/A - No specialty updates needed Summary: Patient admitted to: [facility] Patient admitted on: 01-06-25 Admitted for: Hyperglycemic Hyperosmolar Nonketotic Coma Contact made with patient: Yes Sarika, my name is Vy Houston RN and I am calling from the [facility] on behalf of Samm Kc DO. I understand that you are currently admitted at [facility] and I am calling to cover the follow up and support services that we provide when you are discharged home from the hospital. Spoke to: patient Patient identified by name and date of . What to Expect After Hospital Discharge Within 2 business days after you are discharged back to your home you will receive one of the following: Please know that the telephone number on your caller ID may not identify as [facility]. During our outreach with you, we will ask you about any new or worsening symptoms and ensure you have a follow up appointment with your provider. Best Contact after Hospital Discharge I would like to confirm your contact information. Do you have a mobile phone, landline, or both? and Landline: [phone] Is this the best number to reach you? Yes Do you give us permission to speak with anyone else if you are unavailable to speak with us? Yes. Name Bg Barone, relationship Spouse, and contact number Home or Mobile number. Primary Care Provider (PCP) Hospital Discharge Appointment Does patient already have a PCP follow up appointment within 7-14 days after hospital discharge? No [facility] Patient [facility] status is: Inactive/Pending Please consider signing up for the [facility] secure computer connection called [employer]. Good Thinghart is free, allows you access to a portion of your medical record, lets you request appointment or medication refills, and lets you see when you are due for health maintenance. We can contact you via e-mail and release medical results directly to you through [employer] as well. Thank you for taking the time to speak with me today. We look forward to working with you once you are discharged home from the hospital. Vy Houston, RN January 08, 2025 2:10 PM documented in this encounter [facility] 01-07-2025 Note [facility] 01-07-2025 Note [facility] 01-07-2025 History of Present illness Narrative Fllow up Bone Marrow Biopsy 1. Are you having any of the following? no Abdominal Pain Groin Pain Chest Pain Inner thigh pain Shortness of Breath Dizziness 2. Has there been any bleeding from the site? NO 3. Describe the appearance of the biopsy site: dressing dry and intact 4. Do you have any questions or concerns? none documented in this encounter [facility] 01-07-2025 Note HNO ID: [id number] Author: OK BRYANT RN Service: Nursing Author Type: Registered Nurse Type: Nursing Progress Note Filed: 01/07/2025 17:42 Note Text: Other: 1700: Report given to Tiera PEPE on . Patient and made aware of transfer to 257. [facility] 01-07-2025 Note [facility] 01-07-2025 Note [facility] 01-06-2025 Note [facility] 01-06-2025 Telephone encounter Note Reason for Call: Concerns for high blood sugar Outcome: Go to ED Now (or PCP Triage) will take patient to the emergency room to be evaluated Reason for Disposition Patient sounds very sick or weak to the triager Answer Assessment - Initial Assessment Questions 1. BLOOD GLUCOSE: Not sure what it is now. can't find glucose monitor 2. ONSET: was checked at the [facility] lab this afternoon. Patient's received a call stating patient's blood sugar was over 400. Unable to locate telephone note in [facility] with this information. tried calling the integration software engineer back in [place], but lacquer pin press operator could not locate this physician-Dr Sedrick Roberts 3. USUAL RANGE: usually normal, but increased since he's been on prednisone 4. KETONES: does not check 5. TYPE 1 or 2: Type 2 6. INSULIN: no, 7. DIABETES PILLS: metformin. has not missed any pills did not mention Semaglutide, but it is on patient's medication list 8. OTHER SYMPTOMS: Denies fever, frequent urination, difficulty breathing, dizziness, weakness or vomiting Had been sleeping, but woke him up to complete the triage. Protocols used: Diabetes - High Blood [id number] [facility] 01-06-2025 Miscellaneous Notes Reason for Call: Concerns for high blood sugar Outcome: Go to ED Now (or PCP Triage) will take patient to the emergency room to be evaluated Reason for Disposition Patient sounds very sick or weak to the triager Answer Assessment - Initial Assessment Questions 1. BLOOD GLUCOSE: Not sure what it is now. can't find glucose monitor 2. ONSET: was checked at the [facility] lab this afternoon. Patient's received a call stating patient's blood sugar was over 400. Unable to locate telephone note in [place] with this information. tried calling the integration software engineer back in [place], but lacquer pin press operator could not locate this physician-Dr Sedrick Roberts 3. USUAL RANGE: usually normal, but increased since he's been on prednisone 4. KETONES: does not check 5. TYPE 1 or 2: Type 2 6. INSULIN: no, 7. DIABETES PILLS: metformin. has not missed any pills did not mention Semaglutide, but it is on patient's medication list 8. OTHER SYMPTOMS: Denies fever, frequent urination, difficulty breathing, dizziness, weakness or vomiting Had been sleeping, but woke him up to complete the triage. Protocols used: Diabetes - High Blood [id number] documented in this encounter [facility] 01-06-2025 Note [facility] 01-06-2025 Procedure note Associated Ord er(s): BONE MARROW BIOPSY Post-Procedure Diagnose(s): Autoimmune hemolytic anemia (HCC) BEDSIDE PROCEDURE NOTE BONE MARROW BIOPSY Date/Start Time: 01/06/2025 2:40 PM Date/Stop Time: 01/06/2025 2:55 PM Performed by: Marti Garcia APRN.BRICK OR BLOCK MAKER Authorized by: Marti Garcia APRN.BRICK OR BLOCK MAKER Where was Patient When this Procedure was Performed: [facility] Informed Consent Consent Obtained: Written [place] Protocol A moment to CARE was completed. SIGN IN Personnel directly involved with the procedure wore the appropriate PPE. Special Equipment: N/A Patient/Surrogate Stated/Verified: Patient name, Date of , Relevant allergies and Intended procedure TIME OUT Relevant labs, photos, and/or imaging studies have been reviewed. Intended patient and procedure match source documents. Consent obtained and matches the intended procedure. Correct side/site marked and visible. Medications required for procedure verified. Fire risk assessed and interventions discussed. No implant(s) inserted. Pre-Procedure Details: The area was prepped with povidone Iodine (Betadine) and allowed to dry. A sterile partial body drape was applied following the usual aseptic technique. Medications: Local Anesthesia (see MAR): Lidocaine 2% (8cc) Procedure Details: Patient Position: Left lateral decubitus Aspiration Laterality: Unilateral Aspiration Site: Right posterior superior iliac crest Biopsy Laterality: Unilateral Biopsy Site: Right posterior sperior iliac crest Py[employer] Solar biopsy system was used. Using aseptic technique, bone marrow aspiration was performed. A touch prep was taken. Core biopsy was obtained 1 cm. The core biopsy was confirmed. Number of External Insertion Sites: 1 Pressure dressing applied to Bone Marrow site(s). Hemostasis maintained. Assisting Clinician(s): Marti Morales MA Post-Procedure Details: Patient Tolerance: Patient tolerated the procedure well with no immediate complications Immediate Complications: unable to obtain adequate liquid samples due to clotting and scant blood return Estimated Blood Loss: scant Specimens Sent: bone marrow analysis, bone marrow chromosome analysis, DNA extraction and flow cytometry (myeloid NGS) Teaching Complete: Bone Marrow Biopsy Post-procedure teaching complete Post-procedure care was reviewed and explained. Patient instructed to communicate complaints of redness, swelling, increased or unresolved pain, bleeding chills, bruising, and/or fever. Patient verbalized understanding. SIGN OUT All specimens correctly labeled and sent. All instruments, equipment, possible retained foreign bodies accounted for. The post-procedure POC has been communicated to the patient or surrogate. SIGNATURE: Marti Garcia APRN.CNP PATIENT NAME: Tere Barone DATE: January 06, 2025 TIME: 3:00 PM [facility] Work Phone: 01-06-2025 Procedure note Associated Ord er(s): BONE MARROW BIOPSY Post-Procedure Diagnose(s): Autoimmune hemolytic anemia (HCC) BEDSIDE PROCEDURE NOTE BONE MARROW BIOPSY Date/Start Time: 01/06/2025 2:40 PM Date/Stop Time: 01/06/2025 2:55 PM Performed by: Marti Garcia APRN.BRICK OR BLOCK MAKER Authorized by: Marti Garcia APRN.BRICK OR BLOCK MAKER Where was Patient When this Procedure was Performed: [facility] Informed Consent Consent Obtained: Written [place] Protocol A moment to CARE was completed. SIGN IN Personnel directly involved with the procedure wore the appropriate PPE. Special Equipment: N/A Patient/Surrogate Stated/Verified: Patient name, Date of , Relevant allergies and Intended procedure TIME OUT Relevant labs, photos, and/or imaging studies have been reviewed. Intended patient and procedure match source documents. Consent obtained and matches the intended procedure. Correct side/site marked and visible. Medications required for procedure verified. Fire risk assessed and interventions discussed. No implant(s) inserted. Pre-Procedure Details: The area was prepped with povidone Iodine (Betadine) and allowed to dry. A sterile partial body drape was applied following the usual aseptic technique. Medications: Local Anesthesia (see MAR): Lidocaine 2% (8cc) Procedure Details: Patient Position: Left lateral decubitus Aspiration Laterality: Unilateral Aspiration Site: Right posterior superior iliac crest Biopsy Laterality: Unilateral Biopsy Site: Right posterior sperior iliac crest [employer] biopsy system was used. Using aseptic technique, bone marrow aspiration was performed. A touch prep was taken. Core biopsy was obtained 1 cm. The core biopsy was confirmed. Number of External Insertion Sites: 1 Pressure dressing applied to Bone Marrow site(s). Hemostasis maintained. Assisting Clinician(s): Marti Morales MA Post-Procedure Details: Patient Tolerance: Patient tolerated the procedure well with no immediate complications Immediate Complications: unable to obtain adequate liquid samples due to clotting and scant blood return Estimated Blood Loss: scant Specimens Sent: bone marrow analysis, bone marrow chromosome analysis, DNA extraction and flow cytometry (myeloid NGS) Teaching Complete: Bone Marrow Biopsy Post-procedure teaching complete Post-procedure care was reviewed and explained. Patient instructed to communicate complaints of redness, swelling, increased or unresolved pain, bleeding chills, bruising, and/or fever. Patient verbalized understanding. SIGN OUT All specimens correctly labeled and sent. All instruments, equipment, possible retained foreign bodies accounted for. The post-procedure POC has been communicated to the patient or surrogate. SIGNATURE: Marti Garcia APRN.CNP PATIENT NAME: Tere Barone DATE: January 06, 2025 TIME: 3:00 PM documented in this encounter [facility] 01-06-2025 History of Present illness Narrative Consultation requested by Samm Kc for an opinion regarding anemia. My final recommendations will be communicated back to the requesting physician by way of shared Medical record or letter to requesting physician via US mail. Presenting complaint: Patient Tere Barone was sent to my office to be evaluated for anemia. 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 He was diagnosed with obstructing left ureteral stone and hydronephrosis and anemia. Hemoglobin on admission was low at 6.6 and dropped to hemoglobin 5.6 on 12/07/2024. MCV was normal at 90. Prior hemoglobin was 8.0 in October 2024. Iron was low at 40 uh/dL. TIBC was 283 ug/ml. Transferrin saturation was 14.1% Ferritin was 303. WBC was normal at 5.2 Platelets were normal at 258. Creatinine was 2.1 Bilirubin was 1.3 Lactate was normal at 0.8 Vitamin B12 was 1294. Folate was 22.5 TSH was normal at 1.02 Haptoglobin was low at <10. CT abdomen and pelvis on 12/06/2024 revealing 1.2 cm x 0.6 cm stone in the distal left ureter with resultant hydroureteronephrosis and perinephric stranding and anemia. He required 3 unit PRBC to stabilize anemia. Due to anemia his cystoscopy was postponed. Urinalysis was negative for blood. Protein was high at 70 mg/dL. Coagulation screen showed normal INR 1.1, PT 12.1, PTT 29.8 Peripheral smear showed normocytic normochromic anemia with anisocytosis. There were no blasts or atypical cells or immature mononuclear cells. Direct Mae test was positive. Red count was high at 8.9 Immature Retic fraction was high at 0.65 Sed rate was high at >145. He had warm autoimmune antibodies consistent with autoimmune hemolytic anemia. He also had auto Anti-E antibodies. Antibody identification was performed at the [facility]. 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 Duodenum was biopsied for celiac disease. 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 Duodenal diverticulum was noted in the second portion. Colonoscopy on 12/09/2024 showed 2 polyps in the cecum measuring 2-3 mm s/p removal (tubular adenoma x 1, a separate fragment of colonic mucosa x 1), 3 polyps in the transverse colon measuring 3-4 mm s/p removal (tubular adenoma x 3), 2 polyps in the sigmoid colon measuring 4-5 mm s/p removal (fragments of tubular adenomas), 4 mm polyp in the rectum s/p removal (tubular adenoma), left sided diverticulosis. He was seen by hematology withDr. Vic Gonzalez who started on prednisone 90 mg daily and was given 14 day supply on discharge. Urology plan included outpatient follow-up with ureteroscopy. Plan: Prednisone taper down and off protocol was continued since patient was already taking prednisone for acute hemolytic anemia based on Hb 9.7 about 2 weeks ago and response to first line steroid therapy was noted. He is currently on prednisone 60 mg daily However there was decrease in Hb to 8.4. Patient was diagnosed with supraclavicular adenopathy, splenomegaly. I recommended to proceed with bone marrow biopsy on urgent basis today. I was hesitant to proceed with Rituximab based on concern for undiagnosed lymphoproliferative disorder I discussed my plan for image guided lymph node biopsy CRISTÓBAL I discussed role of CT abdomen and pelvis versus PET/CT based on bone marrow results and clinical status Glucose returned critically high at 535 and I recommended ER visit for DM with critically high hyperglycemia (DKA) Antibody blood evaluation at [facility] showed resolution of warm antibodies presence 2 weeks ago, 12/23/2024 Continue Bactrim every Mon Wed Fri for PJP pneumonia prophylaxis Continue GI prophylaxis with omeprazole on 20 mg daily (R59.0) Localized enlarged lymph nodes Comment: left supraclavicular lymph node enlarged on clinical exam Plan: left supraclavicular lymph node enlargement 3.7 cm x 2.8 cm was confirmed via CT soft tissue neck on 12/27/2024 (R16.1) Splenomegaly Comment: spleen [address] chest Plan: evaluating via bone marrow biopsy (K31.819) AVM (arteriovenous malformation) of duodenum, acquired Comment: diagnosed via EGD on 12/09/2024 at [facility] s/p APC Plan: Monitor. (N17.9) TONA (acute kidney injury) Comment: creatinine worsened at 1.66 along with DKA Plan: ER visit with admission was recommended. confirmed she will take patient. Return in about 3 weeks (around 01/27/2025). I spent 40 minutes in the visit, with more than 50% of the total [id number] time of the visit in counseling / coordination of care. HPI: Patient is a delightful 74 year old gentleman with type 2 DM, colon polyps, left ureteral calculus, renal failure, gastritis, dementia, hearing loss, right carotid artery stenosis, thoracic and lumbosacral neuritis, recurrent falls who had admission to [facility] from 12/06/2024 to 12/10/2024 when he presented with nausea and vomiting of food particles. He was diagnosed with obstructing left ureteral stone and hydronephrosis and anemia. Hemoglobin on admission was low at 6.6 and dropped to hemoglobin 5.6 on 12/07/2024. MCV was normal at 90. Prior hemoglobin was 8.0 in October 2024. Iron was low at 40 uh/dL. TIBC was 283 ug/ml. Transferrin saturation was 14.1% Ferritin was 303. WBC was normal at 5.2 Platelets were normal at 258. Creatinine was 2.1 Bilirubin was 1.3 Lactate was normal at 0.8 Vitamin B12 was 1294. Folate was 22.5 CT abdomen and pelvis on 12/06/2024 revealing 1.2 cm x 0.6 cm stone in the distal left ureter with resultant hydroureteronephrosis and perinephric stranding and anemia. He required 3 unit PRBC to stabilize anemia. Due to anemia his cystoscopy was postponed. Urinalysis was negative for blood. Protein was high at 70 mg/dL. Coagulation screen showed normal INR 1.1, PT 12.1, PTT 29.8 Peripheral smear showed normocytic normochromic anemia with anisocytosis. There were no blasts or atypical cells or immature mononuclear cells. Direct Mae test was positive. Red count was high at 8.9 Immature Retic fraction was high at 0.65 Sed rate was high at >145. He had warm autoimmune antibodies consistent with autoimmune hemolytic anemia. He also had auto Anti-E antibodies. Antibody identification was performed at the [facility]. 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 Duodenum was biopsied for celiac disease. 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 Duodenal diverticulum was noted in the second portion. Colonoscopy on 12/09/2024 showed 2 polyps in the cecum measuring 2-3 mm s/p removal (tubular adenoma x 1, a separate fragment of colonic mucosa x 1), 3 polyps in the transverse colon measuring 3-4 mm s/p removal (tubular adenoma x 3), 2 polyps in the sigmoid colon measuring 4-5 mm s/p removal (fragments of tubular adenomas), 4 mm polyp in the rectum s/p removal (tubular adenoma), left sided diverticulosis. He was seen by hematology withDr. Vic Gonzalez who started on prednisone 90 mg daily and was given 14 day supply on discharge. Urology plan included outpatient follow-up with ureteroscopy. Patient was seen as initial consult on 12/23/2024 Prednisone taper down and off protocol was continued since patient was already taking prednisone for acute hemolytic anemia based on Hb 9.7 about 2 weeks ago and response to first line steroid therapy was noted. He is currently on prednisone 60 mg daily However there was decrease in Hb to 8.4. Patient was diagnosed with supraclavicular adenopathy, splenomegaly. I recommended to proceed with bone marrow biopsy on urgent basis today. I was hesitant to proceed with Rituximab based on concern for undiagnosed lymphoproliferative disorder I discussed my plan for image guided lymph node biopsy CRISTÓBAL I discussed role of CT abdomen and pelvis versus PET/CT based on bone marrow results and clinical status Glucose returned critically high at 535 and I recommended ER visit for DM with critically high hyperglycemia (DKA) Antibody blood evaluation at [facility] showed resolution of warm antibodies presence 2 weeks ago, 12/23/2024 PAST MEDICAL HISTORY Diagnosis Date Alcohol abuse 04/18/2022 Carotid artery occlusion Carpal tunnel syndrome of left wrist Carpal tunnel syndrome on right Chronic bilateral low back pain without sciatica 10/01/2017 COVID-19 08/03/2021 Dependence on nicotine from cigarettes Elevated troponin 07/23/2021 Essential hypertension 08/03/2021 Frequent falls 08/03/2021 Mixed hyperlipidemia Multiple falls 08/04/2021 Nicotine use disorder, F17.2 Obesity, Class I, BMI 30-34.9 08/03/2021 Osteoarthritis Pseudophakia of left eye 09/2012 Sleep apnea Spinal stenosis Syncope 07/23/2021 Thoracic or lumbosacral neuritis or radiculitis, unspecified Type 2 diabetes mellitus with hyperglycemia (HCC) 08/03/2021 PAST SURGICAL HISTORY Procedure Laterality Date ARTHRD ANT INTERBODY MIN DSC LUMBAR 1988 NEUROPLASTY &/TRANSPOS MEDIAN NRV CARPAL TUNNE 2009 Carpal tunnel decomp Lt. XCAPSL CTRC RMVL INSJ IO LENS PROSTH W/O ECP 09/2012 Cataract Extraction with PC IOL left FAMILY HISTORY Problem Relation Age of Onset Diabetes Mother Heart Mother Hypertension Mother Stroke Mother Cataract Mother Glaucoma Mother Macular Degen Father Parkinsonism Sister Asthma Sister Headache Brother Heart Attack Brother SOCIAL HISTORY Social History Tobacco Use Smoking status: Every Day Current packs/day: 0.25 Average packs/day: 0.3 packs/day for 20.0 years (5.0 ttl pk-yrs) Types: Cigarettes Smokeless tobacco: Never Vaping Use Vaping status: Never Used Substance Use Topics Alcohol use: Not Currently Alcohol/week: 24.0 standard drinks of alcohol Types: 24 Cans of Beer (12oz) per week Drug use: No ALLERGIES: ALLERGIES No Known Allergies MEDICATIONS: Current Outpatient Medications on File Prior to Visit Medication Sig glipiZIDE (GLUCOTROL XL) 2.5 mg 24 hr tablet Take 1 tablet by mouth once daily. metoprolol succinate ER (TOPROL XL) 25 mg 24 hr tablet Take 1 tablet by mouth once daily. omeprazole (PRILOSEC) 10 mg capsule Take 1 capsule by mouth once daily. aspirin 81 mg chewable tablet Take 1 tablet by mouth once daily. Cholecalciferol, Vitamin D3, 25 mcg (1,000 unit) cap Take 1 capsule by mouth once daily. cyanocobalamin (VITAMIN B-12) 500 mcg tablet Take 1 tablet by mouth every Sunday, Sunday, and Sunday. losartan (COZAAR) 25 mg tablet Take 1 tablet by mouth once daily. semaglutide (RYBELSUS) 14 mg tablet Take 1 tablet by mouth daily before breakfast. sulfamethoxazole-trimethoprim (BACTRIM DS) 800-160 mg per tablet Take 1 tablet by mouth every Sunday, Sunday, and Sunday for 21 days. traZODone (DESYREL) 50 mg tablet Take 0.5 tablets by mouth daily at bedtime. atorvastatin (LIPITOR) 80 mg tablet Take 1 tablet by mouth daily at bedtime. metFORMIN (GLUCOPHAGE) 500 mg tablet Take 2 tablets by mouth daily with breakfast. predniSONE (DELTASONE) 20 mg tablet Take 1 tablet by mouth as directed. Take 4 tablets daily x 7 days, then 3 tablets x 7 days, then 2 tablets x 7 days, then 1 tablets x 7 days, then 1/2 tablet daily x 8 days, than off. Blood-Glucose Meter To check blood sugar once a day. E11.9 any brand covered by insurance is ok Lancets (ONETOUCH ULTRASOFT LANCETS) To check blood sugar once a day. E11.9 any brand covered by insurance is ok blood sugar diagnostic (BLOOD GLUCOSE TEST) test strip To check blood sugar once a day. E11.9 any brand covered by insurance is ok acetaminophen (TYLENOL) 325 mg tablet Take 1-2 tablets by mouth every 6 hours as needed for pain or fever (specify). REVIEW OF SYSTEMS: Review of Systems Constitutional: Positive for fatigue. Negative for chills and fever. HENT: Positive for hearing loss. Negative for nosebleeds and trouble swallowing. Eyes: Negative for eye problems and icterus. Respiratory: Negative for cough, hemoptysis and shortness of breath. Cardiovascular: Negative for chest pain, leg swelling and palpitations. Gastrointestinal: Positive for nausea. Negative for abdominal pain and blood in stool. Endocrine: Negative for hot flashes. Genitourinary: Negative for bladder incontinence and difficulty urinating. Musculoskeletal: Negative for back pain, flank pain and gait problem. Skin: Negative for itching, rash and wound. Neurological: Negative for gait problem, headaches and light-headedness. Hematological: Positive for adenopathy. Bruises/bleeds easily. Psychiatric/Behavioral: Negative for confusion, decreased concentration and depression. PHYSICAL EXAMINATION: VITALS: BP 106/68 Pulse 107 Temp (Src) 97.9 (Temporal) Resp 16 Wt 181 lb 14.1 oz (82.5kg) SpO2 98% Physical Exam Vitals and nursing note reviewed. Constitutional: General: He is not in acute distress. Appearance: He is not toxic-appearing or diaphoretic. HENT: Head: Normocephalic and atraumatic. Eyes: General: No scleral icterus. Neck: Comments: Left supraclavicular fullness measuring 4 cm x 3.5 cm Cardiovascular: Rate and Rhythm: Normal rate and regular rhythm. Heart sounds: Normal heart sounds. No murmur heard. Pulmonary: Effort: Pulmonary effort is normal. No respiratory distress. Breath sounds: Normal breath sounds. Abdominal: General: There is no distension. Tenderness: There is no abdominal tenderness. There is no guarding or rebound. Comments: NO hepatosplenomegaly Musculoskeletal: General: No swelling. Cervical back: Neck supple. No rigidity. Lymphadenopathy: Cervical: No cervical adenopathy. Skin: Coloration: Skin is pale. Skin is not jaundiced. Neurological: Mental Status: Mental status is at baseline. Psychiatric: Mood and Affect: Mood normal. Behavior: Behavior normal. LABS: Visit (SP) Office on 01/06/2025 Component Date Value Ref Range Status Flow Cytometry Order Status 01/06/2025 Results will be reported under F case ID when completed Final WBC 01/06/2025 4.72 3.70 - 11.00 k/uL Final RBC 01/06/2025 3.04 (L) 4.20 - 6.00 m/uL Final Hemoglobin 01/06/2025 8.6 (L) 13.0 - 17.0 g/dL Final Hematocrit 01/06/2025 27.0 (L) 39.0 - 51.0 % Final MCV 01/06/2025 88.8 80.0 - 100.0 fL Final MCH 01/06/2025 28.3 26.0 - 34.0 pg Final MCHC 01/06/2025 31.9 30.5 - 36.0 g/dL Final RDW-CV 01/06/2025 16.1 (H) 11.5 - 15.0 % Final Platelet Count 01/06/2025 232 150 - 400 k/uL Final MPV 01/06/2025 9.4 9.0 - 12.7 fL Final Neutrophils % 01/06/2025 73.6 % Final Abs Neut 01/06/2025 3.47 1.45 - 7.50 k/uL Final Lymphocytes % 01/06/2025 18.6 % Final Abs Lymph 01/06/2025 0.88 (L) 1.00 - 4.00 k/uL Final Monocytes % 01/06/2025 5.5 % Final Abs [place] 01/06/2025 0.26 <0.87 k/uL Final Eosinophils % 01/06/2025 1.5 % Final Abs Eosin 01/06/2025 0.07 <0.46 k/uL Final Basophils % 01/06/2025 0.2 % Final Abs Baso 01/06/2025 <0.03 <0.11 k/uL Final Immature Granulocytes % 01/06/2025 0.6 % Final Abs Immature Gran 01/06/2025 0.03 <0.10 k/uL Final NRBC 01/06/2025 0.0 /100 WBC Final Absolute nRBC 01/06/2025 <0.01 <0.01 k/uL Final Diff Type 01/06/2025 Auto Final Visit (SP) Office on 01/06/2025 Component Date Value Ref Range Status WBC 01/06/2025 4.46 3.70 - 11.00 k/uL Final RBC 01/06/2025 3.02 (L) 4.20 - 6.00 m/uL Final Hemoglobin 01/06/2025 8.4 (L) 13.0 - 17.0 g/dL Final Hematocrit 01/06/2025 27.1 (L) 39.0 - 51.0 % Final MCV 01/06/2025 89.7 80.0 - 100.0 fL Final MCH 01/06/2025 27.8 26.0 - 34.0 pg Final MCHC 01/06/2025 31.0 30.5 - 36.0 g/dL Final RDW-CV 01/06/2025 15.9 (H) 11.5 - 15.0 % Final Platelet Count 01/06/2025 242 150 - 400 k/uL Final MPV 01/06/2025 9.3 9.0 - 12.7 fL Final Neutrophils % 01/06/2025 76.4 % Final Abs Neut 01/06/2025 3.41 1.45 - 7.50 k/uL Final Lymphocytes % 01/06/2025 16.4 % Final Abs Lymph 01/06/2025 0.73 (L) 1.00 - 4.00 k/uL Final Monocytes % 01/06/2025 5.2 % Final Abs [place] 01/06/2025 0.23 <0.87 k/uL Final Eosinophils % 01/06/2025 1.6 % Final Abs Eosin 01/06/2025 0.07 <0.46 k/uL Final Basophils % 01/06/2025 0.0 % Final Abs Baso 01/06/2025 <0.03 <0.11 k/uL Final Immature Granulocytes % 01/06/2025 0.4 % Final Abs Immature Gran 01/06/2025 <0.03 <0.10 k/uL Final NRBC 01/06/2025 0.0 /100 WBC Final Absolute nRBC 01/06/2025 <0.01 <0.01 k/uL Final Diff Type 01/06/2025 Auto Final Uric Acid 01/06/2025 5.4 4.0 - 8.1 mg/dL Final Phosphorus 01/06/2025 2.5 (L) 2.7 - 4.8 mg/dL Final LD 01/06/2025 371 (H) 135 - 225 U/L Final B2 Microglobulin 01/06/2025 12.5 (H) <3.1 mg/L Final Protein, Total 01/06/2025 5.9 (L) 6.3 - 8.0 g/dL Final Albumin 01/06/2025 3.1 (L) 3.9 - 4.9 g/dL Final Calcium, Total 01/06/2025 8.6 8.5 - 10.2 mg/dL Final Bilirubin, Total 01/06/2025 0.8 0.2 - 1.3 mg/dL Final Alkaline Phosphatase 01/06/2025 98 38 - 113 U/L Final AST 01/06/2025 14 14 - 40 U/L Final ALT 01/06/2025 20 10 - 54 U/L Final Glucose 01/06/2025 535 (H) 74 - 99 mg/dL Final BUN 01/06/2025 37 (H) 9 - 24 mg/dL Final Creatinine 01/06/2025 1.66 (H) 0.73 - 1.22 mg/dL Final Sodium 01/06/2025 132 (L) 136 - 144 mmol/L Final Potassium 01/06/2025 4.6 3.7 - 5.1 mmol/L Final Chloride 01/06/2025 99 98 - 107 mmol/L Final CO2 01/06/2025 21 (L) 22 - 30 mmol/L Final Anion Gap 01/06/2025 12 8 - 15 mmol/L Final Estimated Glomerular Filtration Ra* 01/06/2025 43 (L) >=60 mL/min/1.73m Final Pathologist Interpretation, CBCDIF 01/06/2025 Final CBCDIF Pathologist Reviewed by 01/06/2025 No review performed. Final July Pierce MD Cc: Samm Kc DO (Elements brought forward from my note dated 12/23/2024, have been reviewed and updated where appropriate, and all reflect current assessment and medical decision making during today's encounter, January 06, 2025) documented in this encounter [facility] 01-06-2025 Note [facility] 01-06-2025 Telephone encounter Note Call made to Pts Spouse with understanding. Pts spouse will call with an update [facility] 01-06-2025 Miscellaneous Notes Call made to Pts Spouse with understanding. Pts spouse will call with an update Hold BP meds for 48 hours and recheck BPs this evening/tomorrow. Will have him come in if Sx do not resolve off meds in 48 hours. Thanks Reason for Call: B/p Outcome: He has an appt today a 1 pm with his Thermometer Production Worker which is in one hour. Reason for Disposition [1] Systolic BP 90-110 AND [2] taking blood pressure medications AND [3] NOT feeling weak or lightheaded Answer Assessment - Initial Assessment Questions 1. BLOOD PRESSURE: 11 am 89/41. 11:05 91/43 2. ONSET: 11:14 am 96/46 , 11:27 am 103/62 3. HOW: Home B/p machine 4. HISTORY: At PCP office on 12/29/24 91/57 5. MEDICINES: Losartan 25 mg once a day Metoprolol XL 25 mg once a day 6. PULSE RATE: 11 am 96, 11:05 am 97, 11:15 am 96, 11:27 am 106 7. OTHER SYMPTOMS: He denies any pain, feeling lightheaded/dizzy or weak.He is up walking around. His feels he is more tired. She feels he needs another blood transfusion for anemia. He has an appt with his Thermometer Production Worker at 1 pm today. Protocols used: Blood Pressure - [id number] documented in this encounter [facility] 01-06-2025 Telephone encounter Note Hold BP meds for 48 hours and recheck BPs this evening/tomorrow. Will have him come in if Sx do not resolve off meds in 48 hours. Thanks [facility] 01-06-2025 Telephone encounter Note Reason for Call: B/p Outcome: He has an appt today a 1 pm with his Thermometer Production Worker which is in one hour. [facility] 01-06-2025 Telephone encounter Note Reason for Disposition [1] Systolic BP 90-110 AND [2] taking blood pressure medications AND [3] NOT feeling weak or lightheaded Answer Assessment - Initial Assessment Questions 1. BLOOD PRESSURE: 11 am 89/41. 11:05 91/43 2. ONSET: 11:14 am 96/46 , 11:27 am 103/62 3. HOW: Home B/p machine 4. HISTORY: At PCP office on 12/29/24 91/57 5. MEDICINES: Losartan 25 mg once a day Metoprolol XL 25 mg once a day 6. PULSE RATE: 11 am 96, 11:05 am 97, 11:15 am 96, 11:27 am 106 7. OTHER SYMPTOMS: He denies any pain, feeling lightheaded/dizzy or weak.He is up walking around. His feels he is more tired. She feels he needs another blood transfusion for anemia. He has an appt with his Thermometer Production Worker at 1 pm today. Protocols used: Blood Pressure - [id number] [facility] 01-05-2025 Telephone encounter Note Order faxed. Pt notified [facility] 01-05-2025 Miscellaneous Notes Order faxed. Pt notified Consult is in, please send. Karol Rodriguez APRN.RHONDA Cespedes Inboxologist Covering provider for Samm Kc, DO Pts spouse calling in with [employer] on the line requesting order for Hematology/oncology Per insurance there is not a order for this and Pt has appt tmrw. Order pended for review Once signed, order needs to be faxed to [employer] Referral team documented in this encounter [facility] 01-05-2025 Telephone encounter Note Consult is in, please send. Karol Rodriguez APRN.RHONDA Cespedes Inboxologist Covering provider for Samm Kc, DO [facility] 01-05-2025 Telephone encounter Note Pts spouse calling in with [employer] on the line requesting order for Hematology/oncology Per insurance there is not a order for this and Pt has appt tmrw. Order pended for review Once signed, order needs to be faxed to [employer] Referral team [facility] 12-30-2024 Telephone encounter Note Message relayed [facility] 12-30-2024 Miscellaneous Notes Message relayed Sent Karol Rodriguez APRN.RHONDA Cespedes Inboxologist Covering provider for Samm Kc, DO Patient's received message with understanding. Please resend glipizide Rx to [facility] on [address] too. I reviewed with Dr. Garcia in Dr. cK's absence who recommended we double his Metformin from 500 mg 1 tablet to 2 tablets once daily for now as well as add glipizide 2.5 mg daily. Continue to monitor sugars and follow up with Dr. Kc as planned for 01/09. We will need to have them monitor sugars closely and we will ideally be able to taper these down as the prednisone dose comes down. Karol Rodriguez APRN.RHONDA Cespedes Inboxologist Covering provider for Samm Kc DO Spoke to , patient in back ground. She denies any symptoms other than thirst. Advised to to drink plenty of water. Is there something that can be prescribed while he's on the steroid? Please notify patient of very high blood sugar above 400. Any symptoms of weakness, confusion, excessive thirst, nausea, vomiting, or abdominal pain? Needs ER if yes. He is currently being treated with steroids for anemia which is the likely cause of elevation. Karol Rodriguez APRN.RHONDA Cespedes Inboxologist Covering provider for Samm Kc, DO documented in this encounter [facility] 12-30-2024 Telephone encounter Note Sent LISA Condon Inboxologist Covering provider for Samm Kc, DO [facility] 12-29-2024 Telephone encounter Note Patient's received message with understanding. Please resend glipizide Rx to [facility] [address] too. [facility] 12-29-2024 Telephone encounter Note I reviewed with Dr. Garcia in Dr. Kc's absence who recommended we double his Metformin from 500 mg 1 tablet to 2 tablets once daily for now as well as add glipizide 2.5 mg daily. Continue to monitor sugars and follow up with Dr. Kc as planned for 01/09. We will need to have them monitor sugars closely and we will ideally be able to taper these down as the prednisone dose comes down. Karol Rodriguez APRN.RHONDA Cespedes Inboxologist Covering provider for Samm Kc, DO [facility] 12-29-2024 Telephone encounter Note Spoke to , patient in back ground. She denies any symptoms other than thirst. Advised to to drink plenty of water. Is there something that can be prescribed while he's on the steroid? [facility] 12-29-2024 Telephone encounter Note Please notify patient of very high blood sugar above 400. Any symptoms of weakness, confusion, excessive thirst, nausea, vomiting, or abdominal pain? Needs ER if yes. He is currently being treated with steroids for anemia which is the likely cause of elevation. Karol Rodriguez APRN.RHONDA Cardwell [facility] center[facility] Covering provider for Samm Kc DO [facility] 12-29-2024 Instructions Pola Garcia MD - 12/29/2024 9:13 AM EDT - Stop taking varenicline (Chantix) now that you have quit smoking. - Discontinue memantine (Namenda), as it is not providing benefit. - Continue pantoprazole (antacid) as directed: take one dose 40 minutes before breakfast and a second dose about two hours after breakfast. - Continue all other current heart and chronic medications as prescribed by Dr. Kc. - Complete the blood tests ordered by Dr. Zamarripa today--go to the lab before eating. - Arrange a biopsy of the enlarged neck lymph node with Dr. Zamarripa s office; if you haven t been contacted by tomorrow, call her office to schedule it. - Keep your follow-up appointment with Dr. Kc on January 09. documented in this encounter [facility] 12-29-2024 Note [facility] 12-29-2024 History of Present illness Narrative [facility] December 29, 2024 9:05 AM Recording using [employer] software for draft documentation of the visit was discussed with the patient/authorized promotions representative; all questions welcomed and answered. Patient/authorized promotions representative agreed to proceed Patient Name: Tere Barone Justin Barone is a 74-year-old male with a history of mixed dementia, carotid artery stenosis, and CVA, presenting for follow-up after recent hospitalization for anemia, accompanied by his ex- who is providing history on his behalf. Subjective: Anemia: - Hospitalized for 4 days in December for severe anemia; received blood transfusion. - Undergoing evaluation by hematology; recent appointment with Dr. Bergman. - Recent colonoscopy and EGD performed during hospitalization. - Taking multiple medications, including prednisone. - Reports feeling drugged out and sleeping all day. Weight Loss: - Noted weight loss since hospitalization. Dementia: - History of mixed dementia with short-term memory loss for over a year. - MOCA score in July was 21, indicating mild dementia with IADL impairment. - Taking memantine BID. Depression: - Experiencing severe grief and depression following the of his daughter in fall 2023. Carotid Artery Stenosis: - 80% stenosis of the right ICA. CVA: - History of CVA. Tobacco Use: - Recently quit smoking with the help of Chantix. Constitutional: (+) weight loss, (+) excessive daytime sleepiness Neurological: (+) short-term memory loss, (+) decreased speech Psychiatric: (+) depressed mood FAMILY HISTORY Problem Relation Age of Onset Diabetes Mother Heart Mother Hypertension Mother Stroke Mother Cataract Mother Glaucoma Mother Macular Degen Father Parkinsonism Sister Asthma Sister Headache Brother Heart Attack Brother PAST MEDICAL HISTORY Diagnosis Date Alcohol abuse 04/18/2022 Carotid artery occlusion Carpal tunnel syndrome of left wrist Carpal tunnel syndrome on right Chronic bilateral low back pain without sciatica 10/01/2017 COVID-19 08/03/2021 Dependence on nicotine from cigarettes Elevated troponin 07/23/2021 Essential hypertension 08/03/2021 Frequent falls 08/03/2021 Mixed hyperlipidemia Multiple falls 08/04/2021 Nicotine use disorder, F17.2 Obesity, Class I, BMI 30-34.9 08/03/2021 Osteoarthritis Pseudophakia of left eye 09/2012 Sleep apnea Spinal stenosis Syncope 07/23/2021 Thoracic or lumbosacral neuritis or radiculitis, unspecified Type 2 diabetes mellitus with hyperglycemia (HCC) 08/03/2021 PAST SURGICAL HISTORY Procedure Laterality Date ARTHRD ANT INTERBODY MIN DSC LUMBAR 1989 NEUROPLASTY &/TRANSPOS MEDIAN NRV CARPAL TUNNE 2009 Carpal tunnel decomp Lt. XCAPSL CTRC RMVL INSJ IO LENS PROSTH W/O ECP 09/2012 Cataract Extraction with PC IOL left Social History Tobacco Use Smoking status: Every Day Current packs/day: 0.25 Average packs/day: 0.3 packs/day for 20.0 years (5.0 ttl pk-yrs) Types: Cigarettes Smokeless tobacco: Never Vaping Use Vaping status: Never Used Substance Use Topics Alcohol use: Not Currently Alcohol/week: 24.0 standard drinks of alcohol Types: 24 Cans of Beer (12oz) per week Drug use: No Present Condition: Vitals: BP 91/57 (BP Site: Right Arm, BP Position: Sitting, BP Cuff Size: Large Adult) Pulse 104 Ht 177.8 cm (5' 10) Wt 83.5 kg (184 lb) SpO2 100% BMI 26.40 kg/m General appearance: No apparent distress, well appearing, minimally verbal CAreguiver appears stressed and anxious and overwhelmed SKIN: unremarkable, no rash or skin lesions. HEAD: normocephalic EYES: PERRLA, EOMI, conjunctiva clear Labs: - Severe anemia requiring blood transfusion Imaging: - CT of the collarbone: Enlarged lymph nodes suspicious for malignancy - Unspecified imaging: Kidney stone identified Tests: - Colonoscopy: Performed for evaluation of gastrointestinal bleeding; no documented findings - Upper endoscopy: Performed for evaluation of gastrointestinal bleeding; no documented findings - (July) MOCA: Score of 21, indicating mild cognitive impairment Assessment/Plan: # Stenosis of right carotid artery (I65.21) - History of 80% stenosis in the right internal carotid artery. - Continue current management. 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 - Discontinued memantine as it is likely not providing significant benefit. - Consideration for SSRI to address severe grief and depression following the of his daughter. 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 - Hematology consultation with Dr. Bergman; plans for a lymph node biopsy to investigate potential malignancy. - Ordered additional blood tests to be done today. - Patient to follow up with Dr. Bergman's office for biopsy scheduling; if no contact by tomorrow, patient to call the office. # Gastro-esophageal reflux disease without esophagitis (K21.9) - Currently taking omeprazole; advised against cutting the medication in half as it may reduce efficacy. - Continue current dosing. # Type 2 diabetes mellitus without complication, without long-term current use of insulin (HCC) (E11.9) - Blood glucose levels elevated, likely secondary to prednisone use. - Monitor blood glucose levels closely. # Enlarged lymph nodes (R59.9) - Recent CT scan revealed enlarged lymph nodes. - Dr. Bergman ordered a lymph node biopsy to investigate potential malignancy. - Patient to follow up with Dr. Bergman's office for biopsy scheduling; if no contact by tomorrow, patient to call the office. Information provided to patient: Patient Instructions - Stop taking varenicline (Chantix) now that you have quit smoking. - Discontinue memantine (Namenda), as it is not providing benefit. - Continue pantoprazole (antacid) as directed: take one dose 40 minutes before breakfast and a second dose about two hours after breakfast. - Continue all other current heart and chronic medications as prescribed by Dr. Kc. - Complete the blood tests ordered by Dr. Zamarripa today--go to the lab before eating. - Arrange a biopsy of the enlarged neck lymph node with Dr. Zamarripa s office; if you haven t been contacted by tomorrow, call her office to schedule it. - Keep your follow-up appointment with Dr. Kc on January 09. Signed: Pola Garcia MD Date: December 29, 2024 Time: 9:05 AM Staff, Internal Medicine [facility] Medical Decision Making: Problems: High: Chronic illness with severe change and Illness/injury w/ threat to life/body function Risk: High: High risk from testing/treatment and Drug therapy requiring intensive monitoring Medical Decision Making Level: 5 - High documented in this encounter [facility] 12-27-2024 History of Present illness Narrative Radiology Service Progress Note PATIENT NAME: Tere Barone DATE OF SERVICE: December 27, 2024 TIME: 10:58 AM PATIENT IDENTITY VERIFICATION COMPLETED USING TWO (2) IDENTIFIERS: Name and Date of confirmed by patient verbally and Name and Date of confirmed by identification band. FALL SCREENING: Has the patient had 2 falls in the last year or 1 fall with injury or currently using an Ambulatory Assistive Device (Walker, Cane, Wheelchair, Crutches, etc.)? No PATIENT GENDER DATA: Assigned male at PATIENT RELEVANT IMPLANT DATA REVIEWED: Yes PATIENT PRESENTS WITH AN IMPLANTABLE OR ATTACHED CURER ACID DRUM: No RADIOLOGY DEPARTMENT: CT; Exam(s) Completed: Chest and Neck PERIPHERAL IV DATA: Not applicable SIGNED BY: RT Airam(R) December 27, 2024 10:58 AM documented in this encounter [facility] 12-27-2024 Note [facility] 12-23-2024 Instructions July Pierce MD - 12/23/2024 3:14 PM EDT Please schedule soft tissue neck and CT chest STAT Please schedule follow-up with Dr. Pierce in 2 weeks Start omeprazole 20 mg daily about 40 minutes before breakfast for prevention of stomach ulcers Start prednisone 20 mg dosing: take 4 tablets daily x 7 days, then 3 tablet daily x 7 days, then 2 tablet daily x 7 days, then 1 tablet daily x 7 days, then 1/2 tablet daily x 8 days then off. Start Bactrim 1 tablet every Sun for prevention of pneumonia For scheduling questions, please call [phone] (tests and appointments). For symptom management or care coordination questions, please call Blank at [phone] or use my chart to reach us. After hours with medical questions, please call the doctor on-call at [phone]. Thank you, July Pierce MD documented in this encounter [facility] 12-23-2024 Note [facility] 12-23-2024 History of Present illness Narrative Consultation requested by Samm Kc for an opinion regarding anemia. My final recommendations will be communicated back to the requesting physician by way of shared Medical record or letter to requesting physician via US mail. Presenting complaint: Patient Tere Barone was sent to my office to be evaluated for anemia. 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 He was diagnosed with obstructing left ureteral stone and hydronephrosis and anemia. Hemoglobin on admission was low at 6.6 and dropped to hemoglobin 5.6 on 12/07/2024. MCV was normal at 90. Prior hemoglobin was 8.0 in October 2024. Iron was low at 40 uh/dL. TIBC was 283 ug/ml. Transferrin saturation was 14.1% Ferritin was 303. WBC was normal at 5.2 Platelets were normal at 258. Creatinine was 2.1 Bilirubin was 1.3 Lactate was normal at 0.8 Vitamin B12 was 1294. Folate was 22.5 TSH was normal at 1.02 Haptoglobin was low at <10. CT abdomen and pelvis on 12/06/2024 revealing 1.2 cm x 0.6 cm stone in the distal left ureter with resultant hydroureteronephrosis and perinephric stranding and anemia. He required 3 unit PRBC to stabilize anemia. Due to anemia his cystoscopy was postponed. Urinalysis was negative for blood. Protein was high at 70 mg/dL. Coagulation screen showed normal INR 1.1, PT 12.1, PTT 29.8 Peripheral smear showed normocytic normochromic anemia with anisocytosis. There were no blasts or atypical cells or immature mononuclear cells. Direct Mae test was positive. Red count was high at 8.9 Immature Retic fraction was high at 0.65 Sed rate was high at >145. He had warm autoimmune antibodies consistent with autoimmune hemolytic anemia. He also had auto Anti-E antibodies. Antibody identification was performed at the [facility]. 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 Duodenum was biopsied for celiac disease. 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 Duodenal diverticulum was noted in the second portion. Colonoscopy on 12/09/2024 showed 2 polyps in the cecum measuring 2-3 mm s/p removal (tubular adenoma x 1, a separate fragment of colonic mucosa x 1), 3 polyps in the transverse colon measuring 3-4 mm s/p removal (tubular adenoma x 3), 2 polyps in the sigmoid colon measuring 4-5 mm s/p removal (fragments of tubular adenomas), 4 mm polyp in the rectum s/p removal (tubular adenoma), left sided diverticulosis. He was seen by hematology withDr. Vic Gonzalez who started on prednisone 90 mg daily and was given 14 day supply on discharge. Urology plan included outpatient follow-up with ureteroscopy. Plan: I spoke with patient and his I was concerned about appearance of enlarged lymph node above the left clavicular zone measuring about 4 cm I continued prednisone taper down and off protocol since patient was already taking prednisone for acute hemolytic anemia based on current Hb 9.7 and response to first line steroid therapy I was hesitant to proceed with Rituximab based on concern for undiagnosed lymphoproliferative disorder I discussed my plan for bone marrow biopsy and lymph node biopsy CRISTÓBAL I discussed follow-up on hemolytic parameters and repeating mae test and antibody blood evaluation at [facility] Patient was placed on Bactrim every Sun Wed Fri for PJP pneumonia prophylaxis Patient was placed on GI prophylaxis with omeprazole on 20 mg daily Follow-up in 2 weeks predniSONE (DELTASONE) 20 mg tablet Take 1 tablet by mouth as directed. Take 4 tablets daily x 7 days, then 3 tablets x 7 days, then 2 tablets x 7 days, then 1 tablets x 7 days, then 1/2 tablet daily x 8 days, than off. (R59.0) Localized enlarged lymph nodes Comment: left supraclavicular lymph node enlarged on clinical exam Plan: obtain CT CHEST WO IVCON, CT NECK SOFT TISSUE WO IVCON CRISTÓBAL Return in about 2 weeks (around 01/06/2025) for follow-up with provider. I spent 60 minutes in the visit, with more than 50% of the total [id number] time of the visit in counseling / coordination of care. HPI: Patient is a delightful 74 year old gentleman with type 2 DM, colon polyps, left ureteral calculus, renal failure, gastritis, dementia, hearing loss, right carotid artery stenosis, thoracic and lumbosacral neuritis, recurrent falls who had admission to [facility] from 12/06/2024 to 12/10/2024 when he presented with nausea and vomiting of food particles. He was diagnosed with obstructing left ureteral stone and hydronephrosis and anemia. Hemoglobin on admission was low at 6.6 and dropped to hemoglobin 5.6 on 12/07/2024. MCV was normal at 90. Prior hemoglobin was 8.0 in October 2024. Iron was low at 40 uh/dL. TIBC was 283 ug/ml. Transferrin saturation was 14.1% Ferritin was 303. WBC was normal at 5.2 Platelets were normal at 258. Creatinine was 2.1 Bilirubin was 1.3 Lactate was normal at 0.8 Vitamin B12 was 1294. Folate was 22.5 CT abdomen and pelvis on 12/06/2024 revealing 1.2 cm x 0.6 cm stone in the distal left ureter with resultant hydroureteronephrosis and perinephric stranding and anemia. He required 3 unit PRBC to stabilize anemia. Due to anemia his cystoscopy was postponed. Urinalysis was negative for blood. Protein was high at 70 mg/dL. Coagulation screen showed normal INR 1.1, PT 12.1, PTT 29.8 Peripheral smear showed normocytic normochromic anemia with anisocytosis. There were no blasts or atypical cells or immature mononuclear cells. Direct Mae test was positive. Red count was high at 8.9 Immature Retic fraction was high at 0.65 Sed rate was high at >145. He had warm autoimmune antibodies consistent with autoimmune hemolytic anemia. He also had auto Anti-E antibodies. Antibody identification was performed at the [facility]. 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 Duodenum was biopsied for celiac disease. 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 Duodenal diverticulum was noted in the second portion. Colonoscopy on 12/09/2024 showed 2 polyps in the cecum measuring 2-3 mm s/p removal (tubular adenoma x 1, a separate fragment of colonic mucosa x 1), 3 polyps in the transverse colon measuring 3-4 mm s/p removal (tubular adenoma x 3), 2 polyps in the sigmoid colon measuring 4-5 mm s/p removal (fragments of tubular adenomas), 4 mm polyp in the rectum s/p removal (tubular adenoma), left sided diverticulosis. He was seen by hematology withDr. Vic Gonzalez who started on prednisone 90 mg daily and was given 14 day supply on discharge. Urology plan included outpatient follow-up with ureteroscopy. PAST MEDICAL HISTORY Diagnosis Date Alcohol abuse 04/18/2022 Carotid artery occlusion Carpal tunnel syndrome of left wrist Carpal tunnel syndrome on right Chronic bilateral low back pain without sciatica 10/01/2017 COVID-19 08/03/2021 Dependence on nicotine from cigarettes Elevated troponin 07/23/2021 Essential hypertension 08/03/2021 Frequent falls 08/03/2021 Mixed hyperlipidemia Multiple falls 08/04/2021 Nicotine use disorder, F17.2 Obesity, Class I, BMI 30-34.9 08/03/2021 Osteoarthritis Pseudophakia of left eye 09/2012 Sleep apnea Spinal stenosis Syncope 07/23/2021 Thoracic or lumbosacral neuritis or radiculitis, unspecified Type 2 diabetes mellitus with hyperglycemia (HCC) 08/03/2021 PAST SURGICAL HISTORY Procedure Laterality Date ARTHRD ANT INTERBODY MIN DSC LUMBAR 1988 NEUROPLASTY &/TRANSPOS MEDIAN NRV CARPAL TUNNE 2008 Carpal tunnel decomp Lt. XCAPSL CTRC RMVL INSJ IO LENS PROSTH W/O ECP 09/2012 Cataract Extraction with PC IOL left FAMILY HISTORY Problem Relation Age of Onset Diabetes Mother Heart Mother Hypertension Mother Stroke Mother Cataract Mother Glaucoma Mother Macular Degen Father Parkinsonism Sister Asthma Sister Headache Brother Heart Attack Brother SOCIAL HISTORY Social History Tobacco Use Smoking status: Every Day Current packs/day: 0.25 Average packs/day: 0.3 packs/day for 20.0 years (5.0 ttl pk-yrs) Types: Cigarettes Smokeless tobacco: Never Vaping Use Vaping status: Never Used Substance Use Topics Alcohol use: Not Currently Alcohol/week: 24.0 standard drinks of alcohol Types: 24 Cans of Beer (12oz) per week Drug use: No ALLERGIES: ALLERGIES No Known Allergies MEDICATIONS: Current Outpatient Medications Medication Sig semaglutide (RYBELSUS) 14 mg tablet Take 1 tablet by mouth daily before breakfast. memantine (NAMENDA) 10 mg tablet Take 1 tablet by mouth two times a day. varenicline (CHANTIX) 1 mg tablet Take 1 tablet by mouth two times a day with meals. traZODone (DESYREL) 50 mg tablet Take 1 tablet by mouth daily at bedtime. metFORMIN (GLUCOPHAGE) 500 mg tablet Take 1 tablet by mouth daily with breakfast. losartan (COZAAR) 25 mg tablet Take 1 tablet by mouth once daily. peg 3350-Electrolytes (GOLYTELY) 236-22.74-6.74 -5.86 gram suspension Refer to printed patient instructions that will be mailed to you. peg 3350-Electrolytes (GOLYTELY) 236-22.74-6.74 -5.86 gram suspension Refer to printed patient instructions that will be mailed to you. Fluorouracil (EFUDEX) 5 % cream Apply 2x daily to SCCis of right dorsal hand for 6 weeks. May stop for few days or decrease to once daily for discomfort. Blood-Glucose Meter To check blood sugar once a day. E11.9 any brand covered by insurance is ok Lancets (ONETOUCH ULTRASOFT LANCETS) To check blood sugar once a day. E11.9 any brand covered by insurance is ok blood sugar diagnostic (BLOOD GLUCOSE TEST) test strip To check blood sugar once a day. E11.9 any brand covered by insurance is ok atorvastatin (LIPITOR) 80 mg tablet Take 1 tablet by mouth daily at bedtime. metoprolol succinate ER (TOPROL XL) 25 mg 24 hr tablet Take 1 tablet by mouth once daily. aspirin 81 mg chewable tablet CHEW AND SWALLOW 1 (ONE) TABLET EVERY DAY cyanocobalamin (VITAMIN B-12) 1,000 mcg tab Take 1 tablet by mouth once daily. B Complex-Folic Acid (B COMPLEX 1, WITH FOLIC ACID,) 0.4 mg tab Take 1 tablet by mouth once daily. thiamine (VITAMIN B1) 100 mg tablet 100 mg once daily. Cholecalciferol, Vitamin D3, 25 mcg (1,000 unit) cap Take 1,000 Units by mouth once daily. acetaminophen (TYLENOL) 325 mg tablet Take 1-2 tablets by mouth every 6 hours as needed for pain or fever (specify). predniSONE (DELTASONE) 20 mg tablet Take 1 tablet by mouth as directed. Take 4 tablets daily x 7 days, then 3 tablets x 7 days, then 2 tablets x 7 days, then 1 tablets x 7 days, then 1/2 tablet daily x 8 days, than off. sulfamethoxazole-trimethoprim (BACTRIM DS) 800-160 mg per tablet Take 1 tablet by mouth every Sunday, Sunday, and Sunday. omeprazole (PRILOSEC) 20 mg capsule Take 1 capsule by mouth once daily. Take 1 tablet 40 minutes before breakfast No current facility-administered medications for this visit. REVIEW OF SYSTEMS: Review of Systems Constitutional: Positive for fatigue. Negative for chills and fever. HENT: Positive for hearing loss. Negative for nosebleeds and trouble swallowing. Eyes: Negative for eye problems and icterus. Respiratory: Negative for cough, hemoptysis and shortness of breath. Cardiovascular: Negative for chest pain, leg swelling and palpitations. Gastrointestinal: Positive for nausea. Negative for abdominal pain and blood in stool. Endocrine: Negative for hot flashes. Genitourinary: Negative for bladder incontinence and difficulty urinating. Musculoskeletal: Negative for back pain, flank pain and gait problem. Skin: Negative for itching, rash and wound. Neurological: Negative for gait problem, headaches and light-headedness. Hematological: Positive for adenopathy. Bruises/bleeds easily. Psychiatric/Behavioral: Negative for confusion, decreased concentration and depression. PHYSICAL EXAMINATION: VITALS: BP 118/75 Pulse 105 Temp (Src) 98.3 (Temporal) Resp 16 Wt 192 lb 0.3 oz (87.1kg) SpO2 99% Physical Exam Vitals and nursing note reviewed. Constitutional: General: He is not in acute distress. Appearance: He is not toxic-appearing or diaphoretic. HENT: Head: Normocephalic and atraumatic. Eyes: General: No scleral icterus. Neck: Comments: Left supraclavicular fullness measuring 4 cm x 3.5 cm Cardiovascular: Rate and Rhythm: Normal rate and regular rhythm. Heart sounds: Normal heart sounds. No murmur heard. Pulmonary: Effort: Pulmonary effort is normal. No respiratory distress. Breath sounds: Normal breath sounds. Abdominal: General: There is no distension. Tenderness: There is no abdominal tenderness. There is no guarding or rebound. Comments: Moderate splenomegaly without hepatomegaly Musculoskeletal: General: No swelling. Cervical back: Neck supple. No rigidity. Lymphadenopathy: Cervical: No cervical adenopathy. Skin: Coloration: Skin is pale. Skin is not jaundiced. Neurological: Mental Status: Mental status is at baseline. Psychiatric: Mood and Affect: Mood normal. Behavior: Behavior normal. LABS: 1. WBC Date Value Ref Range Status 12/23/2024 9.34 3.70 - 11.00 k/uL Final RBC Date Value Ref Range Status 12/23/2024 3.37 (L) 4.20 - 6.00 m/uL Final Hemoglobin Date Value Ref Range Status 12/23/2024 9.7 (L) 13.0 - 17.0 g/dL Final Hematocrit Date Value Ref Range Status 12/23/2024 30.6 (L) 39.0 - 51.0 % Final MCV Date Value Ref Range Status 12/23/2024 90.8 80.0 - 100.0 fL Final MCH Date Value Ref Range Status 12/23/2024 28.8 26.0 - 34.0 pg Final MCHC Date Value Ref Range Status 12/23/2024 31.7 30.5 - 36.0 g/dL Final RDW-CV Date Value Ref Range Status 12/23/2024 16.3 (H) 11.5 - 15.0 % Final Platelet Count Date Value Ref Range Status 12/23/2024 270 150 - 400 k/uL Final MPV Date Value Ref Range Status 12/23/2024 9.2 9.0 - 12.7 fL Final Abs Neut Date Value Ref Range Status 09/16/2022 4.66 1.45 - 7.50 k/uL Final Lymphocytes % Date Value Ref Range Status 09/16/2022 37.8 % Final Abs Lymph Date Value Ref Range Status 09/16/2022 3.43 1.00 - 4.00 k/uL Final Monocytes % Date Value Ref Range Status 09/16/2022 6.8 % Final Abs [place] Date Value Ref Range Status 09/16/2022 0.62 <0.87 k/uL Final Abs Eosin Date Value Ref Range Status 09/16/2022 0.32 <0.46 k/uL Final Basophils % Date Value Ref Range Status 09/16/2022 0.2 % Final Abs Baso Date Value Ref Range Status 09/16/2022 <0.03 <0.11 k/uL Final 2. Glucose (mg/dL) Date Value 12/23/2024 319 08/05/2021 146 Potassium (mmol/L) Date Value 12/23/2024 3.9 08/05/2021 3.5 Sodium (mmol/L) Date Value 12/23/2024 137 08/05/2021 135 Chloride (mmol/L) Date Value 12/23/2024 105 08/05/2021 101 CO2 (mmol/L) Date Value 12/23/2024 19 08/05/2021 23 Creatinine (mg/dL) Date Value 12/23/2024 1.37 08/05/2021 0.79 BUN (mg/dL) Date Value 12/23/2024 46 08/05/2021 11 Anion Gap (mmol/L) Date Value 12/23/2024 13 08/05/2021 11 Calcium (mg/dL) Date Value 08/05/2021 8.2 Calcium, Total (mg/dL) Date Value 12/23/2024 8.7 Protein, Total (g/dL) Date Value 12/23/2024 6.4 08/05/2021 5.7 Albumin (g/dL) Date Value 12/23/2024 3.4 08/05/2021 3.6 Bilirubin, Total (mg/dL) Date Value 12/23/2024 1.1 08/05/2021 0.7 Alkaline Phosphatase (U/L) Date Value 12/23/2024 96 08/05/2021 73 AST (U/L) Date Value 12/23/2024 21 08/05/2021 26 ALT (U/L) Date Value 12/23/2024 19 08/05/2021 18 July Pierce MD Cc: Samm Kc DO documented in this encounter [facility] 12-10-2024 Note TERE BARONE :1950 [facility]:[id number] Registration Date:12/06/2024 Admission Information Admit Date/Time:12/06/2024 22:01 EDT Discharge Date 12/10/24 35 mins Admitting Physician - SCOUT LIM, DEANNE Gomez Attending Physician - AUDREY LIM, SAMANTA Consulting Physician - RANDI LIM, KEVIN GONZALEZ MD, VIC Primary Care Physician - SAMM KC All Diagnoses This Visit Autoimmune hemolytic anemia Iron deficiency anemia Positive direct Mae test Left ureteral calculus Acute renal failure Type 2 diabetes mellitus Dementia Colon polyps Gastritis AVM (arteriovenous malformation) of duodenum, acquired Discharge Medications New pantoprazole (Protonix 40 mg oral delayed release tablet)1 Tabs Oral TWICE A DAY for 30 Days. Refills: 0. predniSONE (predniSONE 10 mg oral tablet)9 Tabs Oral DAILY for 14 Days. Refills: 0. tamsulosin (Flomax 0.4 mg oral capsule)1 Capsules Oral AT BEDTIME. Refills: 0. Unchanged aspirin (aspirin 81 mg oral delayed release tablet)1 Tabs Oral DAILY. atorvastatin (atorvastatin 80 mg oral tablet)1 Tabs Oral EVERY EVENING. cholecalciferol (Vitamin D3 25 mcg (1000 intl units) oral capsule)1 Capsules Oral DAILY. losartan (losartan 25 mg oral tablet)1 Tabs Oral EVERY EVENING. memantine (memantine 10 mg oral tablet)1 Tabs Oral TWICE A DAY. metFORMIN = Glucophage (MetFORMIN (Eqv-Glucophage XR) 500 mg oral tablet, extended release)1 Tabs Oral DAILY. metoprolol (Metoprolol Succinate ER 25 mg oral tablet, extended release)1 Tabs Oral DAILY. ondansetron (ondansetron 4 mg oral tablet, disintegrating = Zofran)1 Tabs Oral EVERY FOUR HOURS as needed Nausea/Vomiting. allow tablet to dissolve on tongue. Refills: 0. semaglutide (Rybelsus 14 mg oral tablet)14 Milligram Oral DAILY. take at least 30 minutes before first food, beverage, or other oral meds. varenicline (varenicline 1 mg oral tablet)1 Tabs Oral TWICE A DAY. Takes with meals. Hospital Course Significant Findings ABDOMEN 1 VIEW 12/09/24 14:14:33 XR ABDOMEN 1 VIEW (KUB) CLINICAL STATEMENT: left distal ureteral stone;URINARY OBSTRUCTION. TECHNOLOGIST NOTES: WHAT SYMPTOMS ARE YOU EXPERIENCING?; CHECKING FOR A LEFT DISTAL URETERAL STONE COMPARISON: CT abdomen pelvis 12/06/2024 FINDINGS: Bilateral nephrolithiasis. The known left ureter calculus projects of the level of the mid sacrum, in similar position to the prior CT. Degenerative changes are shown in the osseous structures. There are vascular calcifications in the soft tissues. IMPRESSION: Bilateral nephrolithiasis and left ureter calculus, similar in position to the prior CT. Electronically signed by: Nga Mendez MD 12/09/2024 02:16 PM EDT RP Signed By: NGA MENDEZ MD CT ABD PELVIS WO CONTRAST 12/06/24 20:53:39 EXAM: CT Abdomen and Pelvis without contrast INDICATION: vomiting;OTHER REASON TECHNIQUE: Helical CT of the abdomen and pelvis was obtained from the diaphragm through the ischial tuberosities without contrast. 5 mm axial images were created as were coronal and sagittal reformats. Dose reduction techniques were used including automated exposure control and/or adjustment of the mA and/or kV according to patient size. COMPARISON: The lack of IV contrast significantly decreases the sensitivity of this study for the evaluation of solid abdominal organs, hollow viscera and vascular structures. FINDINGS: LUNG BASES: No significant abnormality. LIVER: No significant abnormality. BILIARY: No significant abnormality. PANCREAS: No significant abnormality. SPLEEN: Enlarged measuring up to 20 cm. ADRENAL GLANDS: No significant abnormality. KIDNEYS/BLADDER: There is a 1.2 x 0.6 cm stone in the distal left ureter with resultant hydroureteronephrosis and perinephric stranding. Additional bilateral nephrolithiasis present. The urinary bladder is unremarkable. The prostate gland is unremarkable. STOMACH/DUODENUM: No significant abnormality. Atherosclerosis present. GI TRACT: No bowel obstruction. The appendix is normal. Diverticulosis present without diverticulitis VESSELS: Nonaneurysmal abdominal aorta. LYMPH NODES: No enlarged abdominal or pelvic lymph nodes. OTHER PELVIC: No free pelvic fluid. OTHER: No pneumoperitoneum. ABDOMINAL WALL: No significant abnormality. BONES/SPINE: Degenerative changes of the lumbar spine. Chronic anterolisthesis of L5 on S1 with osseous fusion across L5-S1. Chronic mild superior plate compression of T8. IMPRESSION: There is a 1.2 x 0.6 cm stone in the distal left ureter with resultant hydroureteronephrosis and perinephric stranding. Additional bilateral nephrolithiasis present. Splenomegaly INCIDENTAL FINDINGS: None requiring follow-up. Electronically signed by: Michelle Ward MD 12/06/2024 08:57 PM EDT Signed By: MICHELLE WARD MD Pre-Procedure Procedure Date: (more content not included)... [facility] 12-10-2024 Note Patient Education [facility] Diabetes and Endocrinology Learning About Type 2 Diabetes What is type 2 diabetes? Type 2 diabetes is a condition in which you have too much sugar (glucose) in your blood. Glucose is a type of sugar produced in your body when carbohydrates and other foods are digested. It provides energy to cells throughout the body. Normally, blood sugar levels increase after you eat a meal. When blood sugar rises, cells in the pancreas release insulin, which causes the body to absorb sugar from the blood and lowers the blood sugar level to normal. When you have type 2 diabetes, sugar stays in the blood rather than entering the body's cells to be used for energy. This results in high blood sugar. It happens when your body can't use insulin the right way. Over time, high blood sugar can harm many parts of the body, such as your eyes, heart, blood vessels, nerves, and kidneys. It can also increase your risk for other health problems (complications). What can you expect with type 2 diabetes? You'll keep hearing about how important it is to keep your blood sugar within a target range. That's because over time, high blood sugar can lead to serious problems. It can: ? Harm your eyes, nerves, and kidneys. ? Damage your blood vessels, leading to heart disease and stroke. ? Reduce blood flow and cause nerve damage to parts of your body, especially your feet. This can cause slow healing and pain when you walk. ? Make your immune system weak and less able to fight infections. When people hear the word diabetes, they often think of problems like these. But daily care and treatment can help prevent or delay these problems. The goal is to keep your blood sugar in a target range. That's the best way to reduce your chance of having more problems from diabetes. What are the symptoms? Some people who have type 2 diabetes may not have any symptoms early on. Many people with the disease don't even know they have it at first. But with time, diabetes starts to cause symptoms. You have most symptoms of type 2 diabetes when your blood sugar is either too high or too low. The most common symptoms of high blood sugar include: ? Thirst. ? Needing to urinate often. ? Weight loss. ? Blurry vision. The symptoms of low blood sugar include: ? Sweating. ? Shakiness. ? Weakness. ? Hunger. ? Confusion. You're not likely to get symptoms of low blood sugar unless you take insulin or use certain diabetes medicines that lower blood sugar. How can you help prevent type 2 diabetes? There are things you can do to help prevent type 2 diabetes. Stay at a healthy weight. Exercise regularly, and eat healthy foods. Even small changes can make a difference. If you have prediabetes, the medicine metformin can help prevent type 2 diabetes. How is type 2 diabetes treated? Treatment for type 2 diabetes will size changer time to meet your needs. But the focus of your treatment will usually be to keep your blood sugar levels in your target range. This will help prevent problems such as eye, kidney, heart, blood vessel, and nerve disease. Some people may need medicines to help their bodies make insulin or decrease insulin resistance. Some medicines slow down how quickly the body absorbs carbohydrates. Treatment to manage type 2 diabetes includes: ? Making healthy food choices and being active. ? Losing weight, if you need to. ? Seeing your doctor regularly. ? Keeping your blood sugar in your target range. ? Taking medicines, if you need them. ? Quitting smoking, if you smoke. ? Keeping your blood pressure and cholesterol under control. Follow-up care is a leo part of your treatment and safety. Be sure to make and go to all appointments, and call your doctor if you are having problems. It's also a good idea to know your test results and keep a list of the medicines you take. Where can you learn more? Go to [email or web address]/patientEd Enter H839 in the search box to learn more about Learning About Type 2 Diabetes. Current as of: January 05, 2021 Content Version: 13.3 ? [employer]. Care instructions adapted under license by your healthcare professional. If you have questions about a medical condition or this instruction, always ask your healthcare professional. [employer] disclaims any warranty or liability for your use of this information. Hematology Anemia: Care Instructions Your Care Instructions Anemia is a low level of red blood cells, which carry oxygen throughout your body. Many things can cause anemia. Lack of iron is one of the most common causes. Your body needs iron to make hemoglobin, a substance in red blood cells that carries oxygen from the lungs to your body's cells. Without enough iron, the body produces fewer and smaller red blood cells. As a result, your body's cells do not get enough oxygen, and you feel tired and weak. And you may have trouble concentrating. Bleeding is the most commo (more content not included)... [facility] 12-07-2024 Note TERE BARONE :1950 [facility]:[id number] Registration Date:12/06/2024 Chief Complaint Vomiting History of Present Illness This is a 74-year-old male with history of hypertension, dyslipidemia, diabetes mellitus who presents to the emergency room for evaluation of vomiting. The patient denies any abdominal pain, rectal bleeding or hematemesis. Denies fever or chills. Initial workup in the emergency room showed an obstructive distal left ureteral stone with hydronephrosis. Lab work shows evidence of acute kidney injury and anemia requiring blood transfusion. The patient is admitted for further management Review of Systems Constitutional: Negative except HPI Eyes: Negative except HPI ENMT: Negative except HPI Respiratory: Negative except HPI Cardiovascular: Negative except HPI Gastrointestinal: Negative except HPI Genitourinary: Negative except HPI Heme: Negative except HPI Endocrine: Negative except HPI Integumentary: Negative except HPI Immunologic: Negative except HPI Musculoskeletal: Negative except HPI Neurologic: Negative except HPI Psychiatric: Negative except HPI Physical Exam Vitals & Measurements T: 36.9 ?C (Oral) HR: 87 (Peripheral) RR: 16 BP: 118/ 84 SpO2: 98% General: Alert and Oriented x3 Respiratory: Diminished breath sounds bilaterally Cardiac: regular rate and rhythm Abdomen: Soft, bowel sounds present, nontender Extremities: No edema, no erythema, no calf tenderness Neurological: Alert, no focal neurological deficit Assessment/Plan Obstructive left ureteral stone with hydronephrosis Acute iron deficiency anemia Acute kidney injury Elevated CRP and procalcitonin Dyslipidemia, diabetes mellitus, hypertension Plan: Start ceftriaxone and Flomax, await blood cultures IV hydration, n.p.o., monitor renal function Consult urology and GI IV Protonix twice daily, monitor H&H SCDs for DVT prophylaxis Procedure/Surgical History No qualifying data available. Medications Inpatient Sodium Chloride 0.9%(NS) 1,000 mL(0.9%NaCl (Normal Saline) 1,000 mL), 1000 mL, IV Sodium Chloride 0.9%(NS) 250 mL(0.9%NaCl (Normal Saline) 250 mL), 250 mL, IV tamsulosin(Flomax), 0.4 mg= 1 caps, ORAL, ONCE Home aspirin(aspirin 81 mg oral delayed release tablet), 81 mg= 1 tabs, ORAL, DAILY atorvastatin(atorvastatin 80 mg oral tablet), 80 mg= 1 tabs, ORAL, QPM cholecalciferol(Vitamin D3 25 mcg (1000 intl units) oral capsule), 25 mcg= 1 caps, ORAL, DAILY clopidogrel(Plavix 75 mg oral tablet), 75 mg= 1 tabs, ORAL, DAILY glipiZIDE(glipiZIDE 2.5 mg oral tablet, extended release), 2.5 mg= 1 tabs, ORAL, DAILY losartan(losartan 25 mg oral tablet), 25 mg= 1 tabs, ORAL, QPM metFORMIN = Glucophage(MetFORMIN (Eqv-Glucophage XR) 500 mg oral tablet, extended release), 1000 mg= 2 tabs, ORAL, BID metoprolol(Metoprolol Succinate ER 25 mg oral tablet, extended release), 25 mg= 1 tabs, ORAL, DAILY ondansetron(ondansetron 4 mg oral tablet, disintegrating = Zofran), 4 mg= 1 tabs, ORAL, [id number], PRN semaglutide(Rybelsus 14 mg oral tablet), 14 mg= 1 tabs, ORAL, DAILY thiamine(thiamine 100 mg oral tablet), 100 mg= 1 tabs, ORAL, DAILY Allergies No Known Medication Allergies Social History Denies alcohol abuse or drug abuse Family History Noncontributory due to advanced age Lab Results Test Name Test Result Date/Time BUN 40 mg/dL 12/06/2024 19:08 EDT Na 143 mmol/L 12/06/2024 19:08 EDT K5.0 mmol/L 12/06/2024 19:08 EDT Chloride 109 mmol/L 12/06/2024 19:08 EDT CO2, venous 23.0 mmol/L 12/06/2024 19:08 EDT Glucose 123 mg/dL 12/06/2024 19:08 EDT Creatinine 2.1 mg/dL 12/06/2024 19:08 EDT Estimated Creatinine Clearance 32.37 mL/min 12/06/2024 20:09 EDT Total Protein 6.4 g/dL 12/06/2024 19:08 EDT Calcium 8.8 mg/dL 12/06/2024 19:08 EDT Bilirubin, Total 1.30 mg/dL 12/06/2024 19:08 EDT Alk Phos 135 unit/L 12/06/2024 19:08 EDT GOT 30 unit/L 12/06/2024 19:08 EDT GPT 9 unit/L 12/06/2024 19:08 EDT BUN/Creat Ratio 19.0 12/06/2024 19:08 EDT Calculated Osmolality 296 mOsm/kg 12/06/2024 19:08 EDT Globulin 3.4 g/dL 12/06/2024 19:08 EDT A/G Ratio 0.9 12/06/2024 19:08 EDT Lipase 31 unit/L 12/06/2024 19:08 EDT Magnesium 2.5 mg/dL 12/06/2024 19:08 EDT IRON 40 ug/dl 12/06/2024 19:08 EDT TIBC 283 ug/ml 12/06/2024 19:08 EDT Saturation 14.1 % 12/06/2024 19:08 EDT LACTATE 0.8 mmol/L 12/06/2024 21:17 EDT Free T4 1.55 ng/dL 12/06/2024 19:08 EDT TSH 1.02 uIU/ml 12/06/2024 19:08 EDT ALB 3.0 g/dL 12/06/2024 19:08 EDT Troponin HS 0 Hr 6 pg/mL 12/06/2024 19:08 EDT Troponin HS 2 Hr 6 pg/mL 12/06/2024 21:07 EDT Delta Troponin 2 Hr 0 pg/mL 12/06/2024 21:07 EDT Glomerular Filtration Rate 31 mL/min/1.73m? 12/06/2024 19:08 EDT GFR AA 37 12/06/2024 19:08 EDT Protime P (more content not included)... [facility] 12-06-2024 Telephone encounter Note Reason for Call: Patient's caregiver calling stating that he is very weak and won't eat. She states the two times he has tried to eat he has vomited. She states he is very pale, his skin has a yellow color to it, and he is losing a lot of weight. He has been able to keep water and flavored drinks down. The patient endorses nausea and vomiting but denies diarrhea. No reported fever. The caregiver made several statements during the triage such as I just don't know if he's going to make it and His color looks ashen and just off as well as he looks like hell. Outcome: Patient advised to go to the Emergency Room now. Patient's care provider plans to take him to [facility] at this time. Encouraged to rack puller and call 911 if anything worsens or changes en route. Reason for Disposition [1] Confusion getting worse AND [2] new-onset (hours to 3 days) Protocols used: Dementia Symptoms and [id number] [facility] Work Phone: 12-06-2024 Miscellaneous Notes Reason for Call: Patient's caregiver calling stating that he is very weak and won't eat. She states the two times he has tried to eat he has vomited. She states he is very pale, his skin has a yellow color to it, and he is losing a lot of weight. He has been able to keep water and flavored drinks down. The patient endorses nausea and vomiting but denies diarrhea. No reported fever. The caregiver made several statements during the triage such as I just don't know if he's going to make it and His color looks ashen and just off as well as he looks like hell. Outcome: Patient advised to go to the Emergency Room now. Patient's care provider plans to take him to [facility] at this time. Encouraged to rack puller and call 911 if anything worsens or changes en route. Reason for Disposition [1] Confusion getting worse AND [2] new-onset (hours to 3 days) Protocols used: Dementia Symptoms and [id number] documented in this encounter [facility] 12-04-2024 Telephone encounter Note Spoke to , she will call back to schedule [facility] 12-04-2024 Miscellaneous Notes Spoke to , she will call back to schedule LVM to call back and schedule with Karol Rodriguez RD Done. Thank you HH Please place an order for the patient to see Karol Rodriguez RD. Order that is in the system expires next month. Please advise documented in this encounter [facility] 11-26-2024 Telephone encounter Note LVM to call back and schedule with Karol Rodriguez RD [facility] 11-26-2024 Telephone encounter Note Done. Thank you HH [facility] 11-26-2024 Telephone encounter Note Please place an order for the patient to see Karol Rodriguez RD. Order that is in the system expires next month. Please advise [facility] 11-26-2024 Instructions Sedrick Roberts MD - 11/26/2024 3:19 PM EDT - Continue metformin 500 mg once a day - Continue Rybelsus 14 mg day - Please check your blood sugar at least once a week - Schedule with the eye clinic - Follow up with our nurse Migdalia in 6 months and with me in 1 year documented in this encounter [facility] 11-26-2024 Note [facility] 11-26-2024 History of Present illness Narrative ENDOCRINOLOGY CLINIC NOTE Mr. Barone is a 74 year old male with T2DM, vascular dementia, dyslipidemia, HTN, and sleep apnea presented with his for follow-up of T2DM HPI He was diagnosed with diabetes a year ago and was not taking anything. He was admitted to the hospital in 08/2021 with COVID and required ICU stay due to high oxygen requirements. He was discharge to a retirement on insulin and metfomrin. He developed thrombocytopenia and the aspirin was stopped. He saw hematology We started him on Rybelsus and increased the dose. And also added low-dose glipizide XL and stopped insulin. Glipizide was eventually stopped because of hypoglycemia He saw a neurologist and was diagnosed vascular dementia. The metformin was reduced to one tab a day A1c: 5.7% today Latest Reference Range & Units 06/21/23 09:30 01/04/24 15:59 04/25/24 08:29 Hemoglobin A1C 4.3 - 5.6 % 6.2 (H) 6.3 (H) 5.7 (H) (H): Data is abnormally high Current regimen: Metformin XR 500 mg 1 tab once a day Rybelsus 14 mg daily Home glucose monitoring: He does not check his blood sugar because he does not like finger pricks Diet: He eats 3 meals a day Physical activity: In the context of daily activities Complications: Retinopathy: Last eye exam was in 06/2021 that showed cataract, but no diabetic eye exam at that time Nephropathy: GFR 95 in 04/2024 Neuropathy: No symptoms suggestive of that. Sees podiatry [facility]: lipid profile: 04/2024: LDL 40, TG 52 on atorvastatin 80 mg. BP: 115/72 PAST MEDICAL HISTORY Diagnosis Date Alcohol abuse 04/18/2022 Carotid artery occlusion Carpal tunnel syndrome of left wrist Carpal tunnel syndrome on right Chronic bilateral low back pain without sciatica 10/01/2017 COVID-19 08/03/2021 Dependence on nicotine from cigarettes Elevated troponin 07/23/2021 Essential hypertension 08/03/2021 Frequent falls 08/03/2021 Mixed hyperlipidemia Multiple falls 08/04/2021 Nicotine use disorder, F17.2 Obesity, Class I, BMI 30-34.9 08/03/2021 Osteoarthritis Pseudophakia of left eye 09/2012 Sleep apnea Spinal stenosis Syncope 07/23/2021 Thoracic or lumbosacral neuritis or radiculitis, unspecified Type 2 diabetes mellitus with hyperglycemia (HCC) 08/03/2021 PAST SURGICAL HISTORY Procedure Laterality Date ARTHRD ANT INTERBODY MIN DSC LUMBAR 1989 NEUROPLASTY &/TRANSPOS MEDIAN NRV CARPAL TUNNE 2009 Carpal tunnel decomp Lt. XCAPSL CTRC RMVL INSJ IO LENS PROSTH W/O ECP 09/2012 Cataract Extraction with PC IOL left FAMILY HISTORY Problem Relation Age of Onset Diabetes Mother Heart Mother Hypertension Mother Stroke Mother Cataract Mother Glaucoma Mother Macular Degen Father Parkinsonism Sister Asthma Sister Headache Brother Heart Attack Brother Social History Tobacco Use Smoking status: Every Day Current packs/day: 0.25 Average packs/day: 0.3 packs/day for 20.0 years (5.0 ttl pk-yrs) Types: Cigarettes Smokeless tobacco: Never Vaping Use Vaping status: Never Used Substance Use Topics Alcohol use: Not Currently Alcohol/week: 24.0 standard drinks of alcohol Types: 24 Cans of Beer (12oz) per week Drug use: No (Not in a hospital admission) Allergies As of Date: 11/26/2024 (No Known Allergies) Fully Assessed 11/26/2024 Current Outpatient Medications Medication Sig Dispense Refill memantine (NAMENDA) 10 mg tablet Take 1 tablet by mouth two times a day. 180 tablet 1 varenicline (CHANTIX) 1 mg tablet Take 1 tablet by mouth two times a day with meals. 60 tablet 11 traZODone (DESYREL) 50 mg tablet Take 1 tablet by mouth daily at bedtime. 30 tablet 0 metFORMIN (GLUCOPHAGE) 500 mg tablet Take 1 tablet by mouth daily with breakfast. 0 semaglutide (RYBELSUS) 14 mg tablet Take 1 tablet (14 mg) by mouth daily before breakfast. 90 tablet 1 losartan (COZAAR) 25 mg tablet Take 1 tablet by mouth once daily. 90 tablet 3 Fluorouracil (EFUDEX) 5 % cream Apply 2x daily to SCCis of right dorsal hand for 6 weeks. May stop for few days or decrease to once daily for discomfort. 40 g 0 Blood-Glucose Meter To check blood sugar once a day. E11.9 any brand covered by insurance is ok 1 Each 0 Lancets (ONETOUCH ULTRASOFT LANCETS) To check blood sugar once a day. E11.9 any brand covered by insurance is ok 100 Each 1 blood sugar diagnostic (BLOOD GLUCOSE TEST) test strip To check blood sugar once a day. E11.9 any brand covered by insurance is ok 100 Each 1 atorvastatin (LIPITOR) 80 mg tablet Take 1 tablet by mouth daily at bedtime. 90 tablet 3 metoprolol succinate ER (TOPROL XL) 25 mg 24 hr tablet Take 1 tablet by mouth once daily. 90 tablet 3 aspirin 81 mg chewable tablet CHEW AND SWALLOW 1 (ONE) TABLET EVERY DAY 30 tablet 2 cyanocobalamin (VITAMIN B-12) 1,000 mcg tab Take 1 tablet by mouth once daily. B Complex-Folic Acid (B COMPLEX 1, WITH FOLIC ACID,) 0.4 mg tab Take 1 tablet by mouth once daily. 30 tablet 5 thiamine (VITAMIN B1) 100 mg tablet 100 mg once daily. Cholecalciferol, Vitamin D3, 25 mcg (1,000 unit) cap Take 1,000 Units by mouth once daily. acetaminophen (TYLENOL) 325 mg tablet Take 1-2 tablets by mouth every 6 hours as needed for pain or fever (specify). peg 3350-Electrolytes (GOLYTELY) 236-22.74-6.74 -5.86 gram suspension Refer to printed patient instructions that will be mailed to you. 4000 mL 0 peg 3350-Electrolytes (GOLYTELY) 236-22.74-6.74 -5.86 gram suspension Refer to printed patient instructions that will be mailed to you. 8000 mL 1 No current facility-administered medications for this visit. COMPLETE REVIEW OF SYSTEMS: 10 point review of systems was negative other than what is mentioned in the H&P PHYSICAL EXAM: 11/26/24 1459 BP: 115/72 Pulse: 100 Resp: 16 SpO2: 99% Weight: 91.4 kg (201 lb 8 oz) Height: 177.8 cm (5' 10) General: NAD, alert and cooperative, no facial plethora Previous exam HEENT: EOMI, no proptosis/stare. Neck: supple with full ROM. No thyromegaly or palpable nodules. Cardiovascular: RRR, +S1 and S2, Lungs: Clear to auscultation bilaterally Abdomen: soft, non-tender, non-distended Extremities: No LE oedema Neuro: alert and oriented Psych: Normal affect Foot Exam 12/21/2021: no wounds or ulcers. Good pedal pulses bilaterally. Normal monofilament and vibration sensation bilaterally Labs: As mentioned above Assessment and Recommendations: Mr. Rand is a 74-year-old man presented with his for follow-up of T2DM. Our goal is an A1c around 7-7.5% to reduce the risks of diabetes related complications while not significantly increasing the risk of hypoglycemia He was on glipizide and basal insulin but they were stopped because of hypoglycemia. He is currently on metformin and Rybelsus and will continue the same. The metformin dose was reduced by neurology due to the diagnosis of vascular dementia and concerned about the effect of metformin. I encouraged them to check the blood sugar at least once a week. I also recommended seeing ophthalmology. Referral was placed Follow-up with my colleague nurse in 6 months and with me in 1 year Some of the above has been copied from prior documentation on 01/09/2024 but leo elements reviewed, confirmed, and/or updated by me (Sedrick Roberts MD) on 11/26/2024 Medical Decision Making: Problems: Low: Stable chronic illness Data: Unique test result(s) reviewed: 3+ Risk: Moderate: Moderate risk from testing/treatment Medical Decision Making Level: 4 - Moderate Sedrick Roberts MD documented in this encounter [facility] 11-06-2024 Note [facility] 11-06-2024 History of Present illness Narrative POPULATION HEALTH NAVIGATION OUTREACH Action/FYI Gaps due: DIABETIC RETINAL EXAM A1C No HCCs, no med adherence. LVM/Updated notes Reason for Outreach Care Gap/HCC or Scheduling Wellness Visits Care Gaps due: Diabetic Eye Exam HBA1C Patient Contacted: Unable or unnecessary to reach patient: Left message Updated appointment notes Navigation Signature: Ivan Pickard MA November 06, 2024 11:25 AM documented in this encounter [facility] 10-08-2024 Telephone encounter Note Received incoming fax from [facility] pharmacy requesting the following refill: Requested Prescriptions Pending Prescriptions Disp Refills memantine (NAMENDA) 10 mg tablet 180 tablet 1 Sig: Take 1 tablet by mouth two times a day. Forwarded message to provider to review and advise. Megan Barron RN [facility] 10-08-2024 Miscellaneous Notes Received incoming fax from [facility] pharmacy requesting the following refill: Requested Prescriptions Pending Prescriptions Disp Refills memantine (NAMENDA) 10 mg tablet 180 tablet 1 Sig: Take 1 tablet by mouth two times a day. Forwarded message to provider to review and advise. Megan Barron RN documented in this encounter [facility] 10-06-2024 Telephone encounter Note 08/05/2024 Visit date not found Pharmacy calls in requesting the following refill(s): Requested Prescriptions Pending Prescriptions Disp Refills varenicline (CHANTIX) 1 mg tablet [Pharmacy Med Name: varenicline tartrate 1 mg tablet] 60 tablet 11 Sig: Take 1 tablet by mouth two times a day with meals. [facility] 10-06-2024 Miscellaneous Notes 08/05/2024 Visit date not found Pharmacy calls in requesting the following refill(s): Requested Prescriptions Pending Prescriptions Disp Refills varenicline (CHANTIX) 1 mg tablet [Pharmacy Med Name: varenicline tartrate 1 mg tablet] 60 tablet 11 Sig: Take 1 tablet by mouth two times a day with meals. documented in this encounter [facility] 09-21-2024 History and physical note Images from the original note were not included. General Surgery Colonoscopy Consult REASON FOR VISIT Tere Barone is a 74 year old male who is scheduled for a consult at the request of Karol Rodriguez for Consult (History of colonic polyps Last Colonoscopy 05/29/24). My final recommendations will be communicated back to the requesting physician by the way of the shared medical record, fax, or via US Mail History of Present Illness: Tere Barone is a 74 year old male with contributing past medical and surgical history significant for alcohol abuse, tobacco abuse, HTN, JOE, and T2DM The patient presents to discuss and schedule a colonoscopy. Last colonoscopy was performed 2023 and showed polyps in the ascending colon, hepatic flexure, and rectum as well as diverticulosis and internal hemorrhoids. Reports change in bowel habits since last colonoscopy - having significant diarrhea. Occasional blood in the diarrhea. No recent sick contacts or viral illness symptoms. PAST MEDICAL HISTORY Diagnosis Date Alcohol abuse 04/18/2022 Carotid artery occlusion Carpal tunnel syndrome of left wrist Carpal tunnel syndrome on right Chronic bilateral low back pain without sciatica 10/01/2017 COVID-19 08/03/2021 Dependence on nicotine from cigarettes Elevated troponin 07/23/2021 Essential hypertension 08/03/2021 Frequent falls 08/03/2021 Mixed hyperlipidemia Multiple falls 08/04/2021 Nicotine use disorder, F17.2 Obesity, Class I, BMI 30-34.9 08/03/2021 Osteoarthritis Pseudophakia of left eye 09/2012 Sleep apnea Spinal stenosis Syncope 07/23/2021 Thoracic or lumbosacral neuritis or radiculitis, unspecified Type 2 diabetes mellitus with hyperglycemia (HCC) 08/03/2021 PAST SURGICAL HISTORY Procedure Laterality Date ARTHRD ANT INTERBODY MIN DSC LUMBAR 1988 NEUROPLASTY &/TRANSPOS MEDIAN NRV CARPAL TUNNE 2009 Carpal tunnel decomp Lt. XCAPSL CTRC RMVL INSJ IO LENS PROSTH W/O ECP 09/2012 Cataract Extraction with PC IOL left FAMILY HISTORY Problem Relation Age of Onset Diabetes Mother Heart Mother Hypertension Mother Stroke Mother Cataract Mother Glaucoma Mother Macular Degen Father Parkinsonism Sister Asthma Sister Headache Brother Heart Attack Brother Social History Tobacco Use Smoking status: Every Day Current packs/day: 0.25 Average packs/day: 0.3 packs/day for 20.0 years (5.0 ttl pk-yrs) Types: Cigarettes Smokeless tobacco: Never Vaping Use Vaping status: Never Used Substance Use Topics Alcohol use: Not Currently Alcohol/week: 24.0 standard drinks of alcohol Types: 24 Cans of Beer (12oz) per week Drug use: No The patient has the following: Problem List Noted Noted By Resolved Resolved By Systolic dysfunction without heart failure 03/19/2024 Sunshine Duckworth, SECURITIES BROKER.BRICK OR BLOCK MAKER No Ascending aorta dilatation 03/19/2024 Sunshine Duckworth APRN.BRICK [employer] BLOCK [employer]KER No Dementia with behavioral disturbance (HCC) 02/09/2024 Sammi Velarde SECURITIES BROKER.BRICK OR BLOCK MAKER No Screening for colon cancer 08/09/2023 Lise Corado MD, PhD No Type 2 diabetes mellitus without complication, without long-term current use of insulin (HCC) 07/05/2023 Migdalia Knapp APRN.BRICK OR BLOCK [employer]KER No Sensorineural hearing loss, bilateral 10/23/2022 Denisa Greenwood, ALEKS No Carotid stenosis, asymptomatic, bilateral 10/12/2021 Cornelio Persaud MD No Cardiomyopathy, ischemic 09/13/2021 Priscilla Salas MD No Essential hypertension 08/03/2021 Taty Leslie APRN.BRICK OR BLOCK MAKER No Mixed hyperlipidemia 08/03/2021 Taty Leslie SECURITIES BROKER.BRICK OR BLOCK MAKER No Granular casts present in urine 08/03/2021 Taty Leslie SECURITIES BROKER.BRICK OR BLOCK MAKER No Tobacco use disorder 07/24/2021 Colin Nagy MD No NS (nuclear sclerosis), right 06/16/2021 Paolo Banks MD No Posterior subcapsular polar age-related cataract of right eye 06/16/2021 Paolo Banks MD No Combined forms of age-related cataract of right eye 06/14/2021 Meffley, Adam, OD No S/P lumbar fusion 10/01/2017 Hilary Koch MD No Spondylolisthesis of lumbar region 10/01/2017 Hilary Koch MD No Pseudophakia of left eye 05/20/2013 Shen Grant MD No 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 Shen Grant MD No DUPUYTREN'S CONTRACTURE 04/20/2008 Fabian Ann (Hist)MD No Carpal tunnel syndrome 04/20/2008 Fabian Ann (Hist)MD No Osteoarthrosis, 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 generalized or localized, other specified sites 04/20/2008 Fabian Ann (Hist)MD No Displacement of lumbar intervertebral disc without myelopathy 11/23/2000 Charly Call DO No Alcohol abuse 04/18/2022 Priscilla Salas MD 07/08/2024 Samm Kc DO Occlusion and stenosis of unspecified carotid artery 04/18/2022 Priscilla Salas MD 01/12/2024 Background, Reporting Acute respiratory failure with hypoxia (HCC) 08/10/2021 Nga White, SECURITIES BROKER.BRICK OR BLOCK MAKER 10/10/2022 Samm Kc DO Multiple falls 08/04/2021 Taty Leslie, SECURITIES BROKER.BRICK OR BLOCK MAKER 10/10/2022 Samm Kc DO Obesity, Class I, BMI 30-34.9 08/03/2021 Taty Leslie APRN.BRICK OR BLOCK MAKER 07/08/2024 Samm Kc DO COVID-19 08/03/2021 Taty Leslie, SECURITIES BROKER.BRICK OR BLOCK MAKER 10/10/2022 Samm Kc DO Frequent falls 08/03/2021 Taty Leslie, SECURITIES BROKER.BRICK OR BLOCK MAKER 10/10/2022 Samm Kc, DO Syncope 07/23/2021 Price Earl, SECURITIES BROKER.BRICK OR BLOCK MAKER 10/10/2022 Samm Kc DO Elevated troponin 07/23/2021 Price Earl, SECURITIES BROKER.BRICK OR BLOCK MAKER 10/10/2022 Samm Kc DO Slurred speech 07/23/2021 Price Earl, SECURITIES BROKER.BRICK OR BLOCK MAKER 07/24/2021 Colin Nagy MD Leukocytosis 07/23/2021 Price Earl, SECURITIES BROKER.BRICK OR BLOCK MAKER 07/24/2021 Colin Nagy MD Altered mental status 07/23/2021 Price Earl, SECURITIES BROKER.BRICK OR BLOCK MAKER 07/24/2021 Colin Nagy MD Chronic bilateral low back pain without sciatica 10/01/2017 Hilary Koch MD 07/08/2024 Samm Kc DO Pain in joint, hand 04/20/2008 Fabian Ann (Hist)MD 07/08/2024 Samm Kc DO Sprain of lumbar region 11/23/2000 Charly Call, 07/08/2024 Samm Kc DO Thoracic or lumbosacral neuritis or radiculitis, unspecified 11/23/2000 Charly Call, 10/10/2022 Samm Kc DO MEDICATIONS Current Outpatient Medications Medication Sig Dispense Refill traZODone (DESYREL) 50 mg tablet Take 1 tablet by mouth daily at bedtime. 30 tablet 0 varenicline (CHANTIX) 1 mg tablet Take 1 tablet by mouth two times a day with meals. 60 tablet 1 metFORMIN (GLUCOPHAGE) 500 mg tablet Take 1 tablet by mouth daily with breakfast. 0 semaglutide (RYBELSUS) 14 mg tablet Take 1 tablet (14 mg) by mouth daily before breakfast. 90 tablet 1 losartan (COZAAR) 25 mg tablet Take 1 tablet by mouth once daily. 90 tablet 3 peg 3350-Electrolytes (GOLYTELY) 236-22.74-6.74 -5.86 gram suspension Refer to printed patient instructions that will be mailed to you. 4000 mL 0 peg 3350-Electrolytes (GOLYTELY) 236-22.74-6.74 -5.86 gram suspension Refer to printed patient instructions that will be mailed to you. 8000 mL 1 memantine (NAMENDA) 10 mg tablet Take 1 tablet by mouth two times a day. Patient should start on November 23, 2023. 180 tablet 1 Fluorouracil (EFUDEX) 5 % cream Apply 2x daily to SCCis of right dorsal hand for 6 weeks. May stop for few days or decrease to once daily for discomfort. 40 g 0 Blood-Glucose Meter To check blood sugar once a day. E11.9 any brand covered by insurance is ok 1 Each 0 Lancets (ONETOUCH ULTRASOFT LANCETS) To check blood sugar once a day. E11.9 any brand covered by insurance is ok 100 Each 1 blood sugar diagnostic (BLOOD GLUCOSE TEST) test strip To check blood sugar once a day. E11.9 any brand covered by insurance is ok 100 Each 1 atorvastatin (LIPITOR) 80 mg tablet Take 1 tablet by mouth daily at bedtime. 90 tablet 3 metoprolol succinate ER (TOPROL XL) 25 mg 24 hr tablet Take 1 tablet by mouth once daily. 90 tablet 3 aspirin 81 mg chewable tablet CHEW AND SWALLOW 1 (ONE) TABLET EVERY DAY 30 tablet 2 cyanocobalamin (VITAMIN B-12) 1,000 mcg tab Take 1 tablet by mouth once daily. B Complex-Folic Acid (B COMPLEX 1, WITH FOLIC ACID,) 0.4 mg tab Take 1 tablet by mouth once daily. 30 tablet 5 thiamine (VITAMIN B1) 100 mg tablet 100 mg once daily. Cholecalciferol, Vitamin D3, 25 mcg (1,000 unit) cap Take 1,000 Units by mouth once daily. acetaminophen (TYLENOL) 325 mg tablet Take 1-2 tablets by mouth every 6 hours as needed for pain or fever (specify). No current facility-administered medications for this visit. CURRENT ALLERGIES ALLERGIES No Known Allergies REVIEW OF SYSTEMS GENERAL: No weight loss, malaise or fevers. RESPIRATORY: Negative for cough, hemoptysis, wheezing, dyspnea or shortness of breath. CARDIOVASCULAR: Negative for chest pain, leg swelling, or palpitations. GI: No abdominal pain, nausea, vomiting. Endorses significant diarrhea. PHYSICAL EXAMINATION BP 108/71 Pulse 89 Ht 5' 10 (1.78m) Wt 206 lb 1.6 oz (93.5kg) SpO2 100% BMI 29.57 kg/(m^2). General Appearance: Well appearing, alert, in no acute distress, well-hydrated, well nourished. Lungs: Lungs clear to auscultation bilaterally Heart: RR Abdomen: Normal abdominal exam Participation of a fellow, resident, medical student, or advanced practice provider student in performing the sensitive examination was discussed with the patient or authorized promotions representative. The patient or authorized promotions representative has agreed to proceed with the sensitive examination. Diagnostic tests reviewed for today's visit: Last colonoscopy 05/2024 Indications: High risk colon cancer surveillance: Personal history of adenomatous colonic polyps [facility] Gastrointestinal Endoscopy Patient Name: Tere Barone Procedure Date: 05/29/2024 11:09 AM Date of : 1950 Admit Type: Outpatient Age: 73 Gender: Male Note Status: Finalized Procedure: Colonoscopy Indications: High risk colon cancer surveillance: Personal history of adenomatous colonic polyps Providers: Yusra Beltran MD Patient Profile: This is a 73 year old male. Refer to note in patient chart for documentation of history and physical. Last Colonoscopy: April 2024. Referring Physician: Lise Corado MD (Referring MD) Medicines: Monitored Anesthesia Care Complications: No immediate complications. Requesting Provider: Procedure: Pre-Anesthesia Assessment: - Prior to the procedure, a History and Physical was performed, and patient medications and allergies were reviewed. The patient is competent. The risks and benefits of the procedure and the sedation options and risks were discussed with the patient. All questions were answered and informed consent was obtained. Patient identification and proposed procedure were verified by the physician and the nurse in the pre-procedure area in the procedure room. Mental Status Examination: alert and oriented. Airway Examination: normal oropharyngeal airway and neck mobility. Respiratory Examination: clear to auscultation. CV Examination: normal. Prophylactic Antibiotics: The patient does not require prophylactic antibiotics. Prior Anticoagulants: The patient has taken no anticoagulant or antiplatelet agents. ASA Grade Assessment: II - A patient with mild systemic disease. After reviewing the risks and benefits, the patient was deemed in satisfactory condition to undergo the procedure. The anesthesia plan was to use monitored anesthesia care (MAC). Immediately prior to administration of medications, the patient was re-assessed for adequacy to receive sedatives. The heart rate, respiratory rate, oxygen saturations, blood pressure, adequacy of pulmonary ventilation, and response to care were monitored throughout the procedure. The physical status of the patient was re-assessed after the procedure. After I obtained informed consent, the scope was passed under direct vision. Throughout the procedure, the patient's blood pressure, pulse, and oxygen saturations were monitored continuously. The Colonoscope was introduced through the anus and advanced to the cecum, identified by appendiceal orifice and ileocecal valve. The colonoscopy was performed without difficulty. The patient tolerated the procedure well. The quality of the bowel preparation was adequate. The ileocecal valve, appendiceal orifice, and rectum were photographed. Moderate Sedation: MAC anesthesia was administered by the anesthesia team. Findings: The perianal and digital rectal examinations were normal. A 7 mm polyp was found in the ascending colon. The polyp was sessile. The polyp was removed with a cold snare. Resection and retrieval were complete. Verification of patient identification for the specimen was done by the nurse and weatherization technician using the patient's name, date and medical record number. The pathology specimen was placed into Bottle Number 2. Estimated blood loss was minimal. Two sessile polyps were found in the hepatic flexure. The polyps were 5 to 6 mm in size. These polyps were removed with a cold snare. Resection and retrieval were complete. The pathology specimen was placed into Bottle Number 1. Estimated blood loss was minimal. A few medium-mouthed diverticula were found in the sigmoid colon. A 13 mm polyp was found in the rectum. The polyp was semi-pedunculated. The polyp was removed with a hot snare. Resection and retrieval were complete. The pathology specimen was placed into Bottle Number 3. Estimated blood loss was minimal. Non-bleeding internal hemorrhoids were found during retroflexion. The hemorrhoids were small. The exam was otherwise without abnormality on direct and retroflexion views. Impression: - One 7 mm polyp in the ascending colon, removed with a cold snare. Resected and retrieved. - Two 5 to 6 mm polyps at the hepatic flexure, removed with a cold snare. Resected and retrieved. - Diverticulosis in the sigmoid colon. - One 13 mm polyp in the rectum, removed with a hot snare. Resected and retrieved. - Non-bleeding internal hemorrhoids. - The examination was otherwise normal on direct and retroflexion views. Assessment ASSESSMENT History of colonic polyps Abnormal findings on examination of gastrointestinal tract (primary encounter diagnosis) Diarrhea, unspecified type RECOMMENDATION -Schedule for diagnostic colonoscopy with MAC anesthesia for evaluation of diarrhea. Additional history of colon polyps. -Colon prep instructions provided to patient Medical Decision Making: Medical Decision Making Level: 1 - N/A Manda Velasquez DO DATE: September 21, 2024 TIME: 12:30 PM CC: Samm Kc DO CC: Karol Rodriguez [facility] 09-21-2024 History and physical note Images from the original note were not included. General Surgery Colonoscopy Consult REASON FOR VISIT Tere Barone is a 74 year old male who is scheduled for a consult at the request of Karol Rodriguez for Consult (History of colonic polyps Last Colonoscopy 05/29/24). My final recommendations will be communicated back to the requesting physician by the way of the shared medical record, fax, or via US Mail History of Present Illness: Tere Barone is a 74 year old male with contributing past medical and surgical history significant for alcohol abuse, tobacco abuse, HTN, JOE, and T2DM The patient presents to discuss and schedule a colonoscopy. Last colonoscopy was performed 2023 and showed polyps in the ascending colon, hepatic flexure, and rectum as well as diverticulosis and internal hemorrhoids. Reports change in bowel habits since last colonoscopy - having significant diarrhea. Occasional blood in the diarrhea. No recent sick contacts or viral illness symptoms. PAST MEDICAL HISTORY Diagnosis Date Alcohol abuse 04/18/2022 Carotid artery occlusion Carpal tunnel syndrome of left wrist Carpal tunnel syndrome on right Chronic bilateral low back pain without sciatica 10/01/2017 COVID-19 08/03/2021 Dependence on nicotine from cigarettes Elevated troponin 07/23/2021 Essential hypertension 08/03/2021 Frequent falls 08/03/2021 Mixed hyperlipidemia Multiple falls 08/04/2021 Nicotine use disorder, F17.2 Obesity, Class I, BMI 30-34.9 08/03/2021 Osteoarthritis Pseudophakia of left eye 09/2012 Sleep apnea Spinal stenosis Syncope 07/23/2021 Thoracic or lumbosacral neuritis or radiculitis, unspecified Type 2 diabetes mellitus with hyperglycemia (HCC) 08/03/2021 PAST SURGICAL HISTORY Procedure Laterality Date ARTHRD ANT INTERBODY MIN DSC LUMBAR 1989 NEUROPLASTY &/TRANSPOS MEDIAN NRV CARPAL TUNNE 2009 Carpal tunnel decomp Lt. XCAPSL CTRC RMVL INSJ IO LENS PROSTH W/O ECP 09/2012 Cataract Extraction with PC IOL left FAMILY HISTORY Problem Relation Age of Onset Diabetes Mother Heart Mother Hypertension Mother Stroke Mother Cataract Mother Glaucoma Mother Macular Degen Father Parkinsonism Sister Asthma Sister Headache Brother Heart Attack Brother Social History Tobacco Use Smoking status: Every Day Current packs/day: 0.25 Average packs/day: 0.3 packs/day for 20.0 years (5.0 ttl pk-yrs) Types: Cigarettes Smokeless tobacco: Never Vaping Use Vaping status: Never Used Substance Use Topics Alcohol use: Not Currently Alcohol/week: 24.0 standard drinks of alcohol Types: 24 Cans of Beer (12oz) per week Drug use: No The patient has the following: Problem List Noted Noted By Resolved Resolved By Systolic dysfunction without heart failure 03/19/2024 Sunshine Duckworth APRN.BRICK OR BLOCK MAKER No Ascending aorta dilatation 03/19/2024 Sunshine Duckworth APRN.BRICK OR BLOCK MAKER No Dementia with behavioral disturbance (HCC) 02/09/2024 Sammi Velarde SECURITIES BROKER.BRICK OR BLOCK MAKER No Screening for colon cancer 08/09/2023 Lise Corado MD, PhD No Type 2 diabetes mellitus without complication, without long-term current use of insulin (HCC) 07/05/2023 Migdalia Knapp APRN.BRICK OR BLOCK MAKER No Sensorineural hearing loss, bilateral 10/23/2022 Denisa Greenwood, ALEKS No Carotid stenosis, asymptomatic, bilateral 10/12/2021 Cornelio Persaud MD No Cardiomyopathy, ischemic 09/13/2021 Priscilla Salas MD No Essential hypertension 08/03/2021 Taty Leslie, SECURITIES BROKER.BRICK OR BLOCK MAKER No Mixed hyperlipidemia 08/03/2021 Taty Leslie, SECURITIES BROKER.BRICK OR BLOCK MAKER No Granular casts present in urine 08/03/2021 Taty Leslie, SECURITIES BROKER.BRICK OR BLOCK MAKER No Tobacco use disorder 07/24/2021 Colin Nagy MD No NS (nuclear sclerosis), right 06/16/2021 Paolo Banks MD No Posterior subcapsular polar age-related cataract of right eye 06/16/2021 Paolo Banks MD No Combined forms of age-related cataract of right eye 06/14/2021 Meffley, Adam, OD No S/P lumbar fusion 10/01/2017 Hilary Koch MD No Spondylolisthesis of lumbar region 10/01/2017 Hilary Koch MD No Pseudophakia of left eye 05/20/2013 Shen Grant MD No 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 Shen Grant MD No DUPUYTREN'S CONTRACTURE 04/20/2008 Fabian Ann (Hist)MD No Carpal tunnel syndrome 04/20/2008 Fabian Ann (Hist)MD No Osteoarthrosis, 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 generalized or localized, other specified sites 04/20/2008 Fabian Ann (Hist)MD No Displacement of lumbar intervertebral disc without myelopathy 11/23/2000 Charly Call DO No Alcohol abuse 04/18/2022 Priscilla Salas MD 07/08/2024 Samm Kc DO Occlusion and stenosis of unspecified carotid artery 04/18/2022 Priscilla Salas MD 01/12/2024 Background, Reporting Acute respiratory failure with hypoxia (HCC) 08/10/2021 Nga White, SECURITIES BROKER.BRICK OR BLOCK MAKER 10/10/2022 Samm Kc DO Multiple falls 08/04/2021 Taty Leslie, SECURITIES BROKER.BRICK OR BLOCK MAKER 10/10/2022 Samm Kc DO Obesity, Class I, BMI 30-34.9 08/03/2021 Taty Leslie, SECURITIES BROKER.BRICK OR BLOCK MAKER 07/08/2024 Samm Kc DO COVID-19 08/03/2021 Taty Leslie, SECURITIES BROKER.BRICK OR BLOCK MAKER 10/10/2022 Samm Kc DO Frequent falls 08/03/2021 Taty Leslie, SECURITIES BROKER.BRICK OR BLOCK MAKER 10/10/2022 Samm Kc DO Syncope 07/23/2021 Price Earl, SECURITIES BROKER.BRICK OR BLOCK MAKER 10/10/2022 Samm cK DO Elevated troponin 07/23/2021 Price Earl, SECURITIES BROKER.BRICK OR BLOCK MAKER 10/10/2022 Samm Kc DO Slurred speech 07/23/2021 Price Earl, SECURITIES BROKER.BRICK OR BLOCK MAKER 07/24/2021 Colin Nagy MD Leukocytosis 07/23/2021 Price Earl, SECURITIES BROKER.BRICK OR BLOCK MAKER 07/24/2021 Colin Nagy MD Altered mental status 07/23/2021 Price Earl, SECURITIES BROKER.BRICK OR BLOCK MAKER 07/24/2021 Colin Nagy MD Chronic bilateral low back pain without sciatica 10/01/2017 Hilary Koch MD 07/08/2024 Samm Kc DO Pain in joint, hand 04/20/2008 Fabian Ann (Hist)MD 07/08/2024 Samm Kc DO Sprain of lumbar region 11/23/2000 Charly Call, 07/08/2024 Samm Kc DO Thoracic or lumbosacral neuritis or radiculitis, unspecified 11/23/2000 Charly Call, 10/10/2022 Samm Kc DO MEDICATIONS Current Outpatient Medications Medication Sig Dispense Refill traZODone (DESYREL) 50 mg tablet Take 1 tablet by mouth daily at bedtime. 30 tablet 0 varenicline (CHANTIX) 1 mg tablet Take 1 tablet by mouth two times a day with meals. 60 tablet 1 metFORMIN (GLUCOPHAGE) 500 mg tablet Take 1 tablet by mouth daily with breakfast. 0 semaglutide (RYBELSUS) 14 mg tablet Take 1 tablet (14 mg) by mouth daily before breakfast. 90 tablet 1 losartan (COZAAR) 25 mg tablet Take 1 tablet by mouth once daily. 90 tablet 3 peg 3350-Electrolytes (GOLYTELY) 236-22.74-6.74 -5.86 gram suspension Refer to printed patient instructions that will be mailed to you. 4000 mL 0 peg 3350-Electrolytes (GOLYTELY) 236-22.74-6.74 -5.86 gram suspension Refer to printed patient instructions that will be mailed to you. 8000 mL 1 memantine (NAMENDA) 10 mg tablet Take 1 tablet by mouth two times a day. Patient should start on November 23, 2023. 180 tablet 1 Fluorouracil (EFUDEX) 5 % cream Apply 2x daily to SCCis of right dorsal hand for 6 weeks. May stop for few days or decrease to once daily for discomfort. 40 g 0 Blood-Glucose Meter To check blood sugar once a day. E11.9 any brand covered by insurance is ok 1 Each 0 Lancets (ONETOUCH ULTRASOFT LANCETS) To check blood sugar once a day. E11.9 any brand covered by insurance is ok 100 Each 1 blood sugar diagnostic (BLOOD GLUCOSE TEST) test strip To check blood sugar once a day. E11.9 any brand covered by insurance is ok 100 Each 1 atorvastatin (LIPITOR) 80 mg tablet Take 1 tablet by mouth daily at bedtime. 90 tablet 3 metoprolol succinate ER (TOPROL XL) 25 mg 24 hr tablet Take 1 tablet by mouth once daily. 90 tablet 3 aspirin 81 mg chewable tablet CHEW AND SWALLOW 1 (ONE) TABLET EVERY DAY 30 tablet 2 cyanocobalamin (VITAMIN B-12) 1,000 mcg tab Take 1 tablet by mouth once daily. B Complex-Folic Acid (B COMPLEX 1, WITH FOLIC ACID,) 0.4 mg tab Take 1 tablet by mouth once daily. 30 tablet 5 thiamine (VITAMIN B1) 100 mg tablet 100 mg once daily. Cholecalciferol, Vitamin D3, 25 mcg (1,000 unit) cap Take 1,000 Units by mouth once daily. acetaminophen (TYLENOL) 325 mg tablet Take 1-2 tablets by mouth every 6 hours as needed for pain or fever (specify). No current facility-administered medications for this visit. CURRENT ALLERGIES ALLERGIES No Known Allergies REVIEW OF SYSTEMS GENERAL: No weight loss, malaise or fevers. RESPIRATORY: Negative for cough, hemoptysis, wheezing, dyspnea or shortness of breath. CARDIOVASCULAR: Negative for chest pain, leg swelling, or palpitations. GI: No abdominal pain, nausea, vomiting. Endorses significant diarrhea. PHYSICAL EXAMINATION BP 108/71 Pulse 89 Ht 5' 10 (1.78m) Wt 206 lb 1.6 oz (93.5kg) SpO2 100% BMI 29.57 kg/(m^2). General Appearance: Well appearing, alert, in no acute distress, well-hydrated, well nourished. Lungs: Lungs clear to auscultation bilaterally Heart: RR Abdomen: Normal abdominal exam Participation of a fellow, resident, medical student, or advanced practice provider student in performing the sensitive examination was discussed with the patient or authorized promotions representative. The patient or authorized promotions representative has agreed to proceed with the sensitive examination. Diagnostic tests reviewed for today's visit: Last colonoscopy 05/2024 Indications: High risk colon cancer surveillance: Personal history of adenomatous colonic polyps [facility] Gastrointestinal Endoscopy Patient Name: Tere Barone Procedure Date: 05/29/2024 11:09 AM Date of : 1950 Admit Type: Outpatient Age: 73 Gender: Male Note Status: Finalized Procedure: Colonoscopy Indications: High risk colon cancer surveillance: Personal history of adenomatous colonic polyps Providers: Yusra Beltran MD Patient Profile: This is a 73 year old male. Refer to note in patient chart for documentation of history and physical. Last Colonoscopy: April 2024. Referring Physician: Lsie Corado MD (Referring MD) Medicines: Monitored Anesthesia Care Complications: No immediate complications. Requesting Provider: Procedure: Pre-Anesthesia Assessment: - Prior to the procedure, a History and Physical was performed, and patient medications and allergies were reviewed. The patient is competent. The risks and benefits of the procedure and the sedation options and risks were discussed with the patient. All questions were answered and informed consent was obtained. Patient identification and proposed procedure were verified by the physician and the nurse in the pre-procedure area in the procedure room. Mental Status Examination: alert and oriented. Airway Examination: normal oropharyngeal airway and neck mobility. Respiratory Examination: clear to auscultation. CV Examination: normal. Prophylactic Antibiotics: The patient does not require prophylactic antibiotics. Prior Anticoagulants: The patient has taken no anticoagulant or antiplatelet agents. ASA Grade Assessment: II - A patient with mild systemic disease. After reviewing the risks and benefits, the patient was deemed in satisfactory condition to undergo the procedure. The anesthesia plan was to use monitored anesthesia care (MAC). Immediately prior to administration of medications, the patient was re-assessed for adequacy to receive sedatives. The heart rate, respiratory rate, oxygen saturations, blood pressure, adequacy of pulmonary ventilation, and response to care were monitored throughout the procedure. The physical status of the patient was re-assessed after the procedure. After I obtained informed consent, the scope was passed under direct vision. Throughout the procedure, the patient's blood pressure, pulse, and oxygen saturations were monitored continuously. The Colonoscope was introduced through the anus and advanced to the cecum, identified by appendiceal orifice and ileocecal valve. The colonoscopy was performed without difficulty. The patient tolerated the procedure well. The quality of the bowel preparation was adequate. The ileocecal valve, appendiceal orifice, and rectum were photographed. Moderate Sedation: MAC anesthesia was administered by the anesthesia team. Findings: The perianal and digital rectal examinations were normal. A 7 mm polyp was found in the ascending colon. The polyp was sessile. The polyp was removed with a cold snare. Resection and retrieval were complete. Verification of patient identification for the specimen was done by the nurse and weatherization technician using the patient's name, date and medical record number. The pathology specimen was placed into Bottle Number 2. Estimated blood loss was minimal. Two sessile polyps were found in the hepatic flexure. The polyps were 5 to 6 mm in size. These polyps were removed with a cold snare. Resection and retrieval were complete. The pathology specimen was placed into Bottle Number 1. Estimated blood loss was minimal. A few medium-mouthed diverticula were found in the sigmoid colon. A 13 mm polyp was found in the rectum. The polyp was semi-pedunculated. The polyp was removed with a hot snare. Resection and retrieval were complete. The pathology specimen was placed into Bottle Number 3. Estimated blood loss was minimal. Non-bleeding internal hemorrhoids were found during retroflexion. The hemorrhoids were small. The exam was otherwise without abnormality on direct and retroflexion views. Impression: - One 7 mm polyp in the ascending colon, removed with a cold snare. Resected and retrieved. - Two 5 to 6 mm polyps at the hepatic flexure, removed with a cold snare. Resected and retrieved. - Diverticulosis in the sigmoid colon. - One 13 mm polyp in the rectum, removed with a hot snare. Resected and retrieved. - Non-bleeding internal hemorrhoids. - The examination was otherwise normal on direct and retroflexion views. Assessment ASSESSMENT History of colonic polyps Abnormal findings on examination of gastrointestinal tract (primary encounter diagnosis) Diarrhea, unspecified type RECOMMENDATION -Schedule for diagnostic colonoscopy with MAC anesthesia for evaluation of diarrhea. Additional history of colon polyps. -Colon prep instructions provided to patient Medical Decision Making: Medical Decision Making Level: 1 - N/A Manda Velasquez DO DATE: September 21, 2024 TIME: 12:30 PM CC: Samm Kc DO CC: Karol Rodriguez documented in this encounter [facility] 09-11-2024 Note [facility] 09-11-2024 History of Present illness Narrative SERVICE DATE: September 11, 2024 PCP: Samm Kc DO Subjective Patient ID: Justin is a 74 year old male. Patient presents today requesting debridement of toenails on both feet Chief Complaint: Patient presents with: Callous Diabetic Foot Check: Bilateral nail care PAIN EVALUATION No data found in the last 1 encounters. HPI patient is type II diabetic controlled with oral medication and last saw Dr. 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 S/P Lumbar Fusion Spondylolisthesis of Lumbar Region Combined Forms of Age-Related Cataract of Right Eye Ns (Nuclear Sclerosis), Right Posterior Subcapsular Polar Age-Related Cataract of Right Eye Tobacco Use Disorder Essential Hypertension Mixed Hyperlipidemia Granular Casts 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 Cardiomyopathy, Ischemic Carotid Stenosis, Asymptomatic, Bilateral Sensorineural Hearing Loss, Bilateral Type 2 Diabetes Mellitus Without Complication, Without Long-Term Current Use of Insulin (Hcc) Screening for Colon Cancer Dementia With Behavioral Disturbance (Hcc) 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 Ascending Aorta Dilatation PAST MEDICAL HISTORY Diagnosis Date Alcohol abuse 04/18/2022 Carotid artery occlusion Carpal tunnel syndrome of left wrist Carpal tunnel syndrome on right Chronic bilateral low back pain without sciatica 10/01/2017 COVID-19 08/03/2021 Dependence on nicotine from cigarettes Elevated troponin 07/23/2021 Essential hypertension 08/03/2021 Frequent falls 08/03/2021 Mixed hyperlipidemia Multiple falls 08/04/2021 Nicotine use disorder, F17.2 Obesity, Class I, BMI 30-34.9 08/03/2021 Osteoarthritis Pseudophakia of left eye 09/2012 Sleep apnea Spinal stenosis Syncope 07/23/2021 Thoracic or lumbosacral neuritis or radiculitis, unspecified Type 2 diabetes mellitus with hyperglycemia (HCC) 08/03/2021 PAST SURGICAL HISTORY Procedure Laterality Date ARTHRD ANT INTERBODY MIN DSC LUMBAR 1989 NEUROPLASTY &/TRANSPOS MEDIAN NRV CARPAL TUNNE 2009 Carpal tunnel decomp Lt. XCAPSL CTRC RMVL INSJ IO LENS PROSTH W/O ECP 09/2012 Cataract Extraction with PC IOL left FAMILY HISTORY Problem Relation Age of Onset Diabetes Mother Heart Mother Hypertension Mother Stroke Mother Cataract Mother Glaucoma Mother Macular Degen Father Parkinsonism Sister Asthma Sister Headache Brother Heart Attack Brother Social History Tobacco Use Smoking status: Every Day Current packs/day: 0.25 Average packs/day: 0.3 packs/day for 20.0 years (5.0 ttl pk-yrs) Types: Cigarettes Smokeless tobacco: Never Vaping Use Vaping status: Never Used Substance Use Topics Alcohol use: Not Currently Alcohol/week: 24.0 standard drinks of alcohol Types: 24 Cans of Beer (12oz) per week Drug use: No ALLERGIES No Known Allergies MEDICATIONS: traZODone (DESYREL) 50 mg tablet Take 1 tablet by mouth daily at bedtime. varenicline (CHANTIX) 1 mg tablet Take 1 tablet by mouth two times a day with meals. metFORMIN (GLUCOPHAGE) 500 mg tablet Take 1 tablet by mouth daily with breakfast. semaglutide (RYBELSUS) 14 mg tablet Take 1 tablet (14 mg) by mouth daily before breakfast. losartan (COZAAR) 25 mg tablet Take 1 tablet by mouth once daily. peg 3350-Electrolytes (GOLYTELY) 236-22.74-6.74 -5.86 gram suspension Refer to printed patient instructions that will be mailed to you. peg 3350-Electrolytes (GOLYTELY) 236-22.74-6.74 -5.86 gram suspension Refer to printed patient instructions that will be mailed to you. memantine (NAMENDA) 10 mg tablet Take 1 tablet by mouth two times a day. Patient should start on November 23, 2023. Fluorouracil (EFUDEX) 5 % cream Apply 2x daily to SCCis of right dorsal hand for 6 weeks. May stop for few days or decrease to once daily for discomfort. Blood-Glucose Meter To check blood sugar once a day. E11.9 any brand covered by insurance is ok Lancets (ONETOUCH ULTRASOFT LANCETS) To check blood sugar once a day. E11.9 any brand covered by insurance is ok blood sugar diagnostic (BLOOD GLUCOSE TEST) test strip To check blood sugar once a day. E11.9 any brand covered by insurance is ok atorvastatin (LIPITOR) 80 mg tablet Take 1 tablet by mouth daily at bedtime. metoprolol succinate ER (TOPROL XL) 25 mg 24 hr tablet Take 1 tablet by mouth once daily. aspirin 81 mg chewable tablet CHEW AND SWALLOW 1 (ONE) TABLET EVERY DAY cyanocobalamin (VITAMIN B-12) 1,000 mcg tab Take 1 tablet by mouth once daily. B Complex-Folic Acid (B COMPLEX 1, WITH FOLIC ACID,) 0.4 mg tab Take 1 tablet by mouth once daily. thiamine (VITAMIN B1) 100 mg tablet 100 mg once daily. Cholecalciferol, Vitamin D3, 25 mcg (1,000 unit) cap Take 1,000 Units by mouth once daily. acetaminophen (TYLENOL) 325 mg tablet Take 1-2 tablets by mouth every 6 hours as needed for pain or fever (specify). Allergies, medications, past surgical history, family history and past medical history were reviewed per this encounter. Objective : Physical Exam Vasc: DP & PT nonpalpable;CFT less than 3 seconds: Bilateral Temp warm to cool tibia to toes bilateral Hair absent bilateral Neuro: Diminished ability to sense or locate site of 5.07 [place] Sandra monofilament sensation bilateral Musculoskeletal: Noncontributory Derm: Shiny, red, friable distal subungual, hyponychial, eponychial 1-5 bilateral Nails yellow to osorio, thick, crumbly, painful 1-5 bilateral Assessment/Plan ASSESSMENT Onychomycosis, debridement is indicated to arrest pain and local trophic changes for at risk patient (B35.1, M79.674, M79.675) Pain due to onychomycosis of toenails of both feet (primary encounter diagnosis) No orders found for this visit on 09/11/24. PLAN Debridement of mycotic toenails 1-5 bilateral thickness and length utilizing both manual nail nipper and osbaldo on power instrument; follow up 12 weeks. SIGNATURE: El Retana DPM PATIENT NAME: Tere Barone DATE: September 11, 2024 TIME: 5:08 PM El Retana DPM documented in this encounter [facility] 09-10-2024 Instructions Manda Velasquez, DO - 09/10/2024 2:51 PM EDT COLONOSCOPY BOWEL PREPARATION INSTRUCTIONS GOLYTELY/NULYTELY/TRILYTE/COLYTE Your doctor has scheduled you for a colonoscopy. To have a successful colonoscopy, you must have a clean colon, that is empty. A clean colon allows your doctor to see the entire colon & diagnose issues like polyps or cancer. For doctors, a clean colon is like driving on a adolfo day; a dirty colon like driving in a storm. It is very important that you follow these instructions exactly, or your colonoscopy might not be as effective, could be canceled, and you may need to do the bowel prep and the colonoscopy again. TRANSPORTATION REQUIREMENTS You are receiving IV sedation. For your safety, a responsible adult escort must accompany you to and from your procedure: Your adult escort MUST be present with you at check-in for your colonoscopy. Your adult escort MUST remain in the endoscopy area until you are discharged. Your adult escort MUST transport you home once you are discharged. You are NOT allowed to operate any form of transportation (i.e. drive a car, bicycle, etc.) or leave the Endoscopy Center ALONE. It is not safe to do so. If you cannot meet these requirements, your procedure will be canceled. MEDICATION REQUIREMENTS For your safety, certain medications will need to be stopped or adjusted before you can have your procedure: BLOOD THINNERS: If you take blood thinners, such as Coumadin (warfarin), Plavix (clopidogrel), Ticlid (ticlopidine hydrochloride), Agrylin (anagrelide), Xarelto (Rivaroxaban), Pradaxa (Dabigatran), Eliquis (Apixaban), or Effient (Prasugrel), contact the physician who is prescribing these medications at least 2 weeks prior to your procedure to discuss any necessary adjustments. DIABETES: If you take medications for diabetes, your dosage may need to be adjusted. If you are being treated for diabetes with insulin, diabetic pills, or other injectable medications do not take your REGULAR dose after midnight on the day of your procedure. If you are taking any other types of insulin such as Lantus, Humalog, NPH (long-acting insulin), or 70/30 insulin, take half your normal dose the day before your procedure. DIABETES/WEIGHT MANAGEMENT: If you take medications for weight-loss, your dosage may need to be adjusted Contact the doctor who prescribes this medication for further instructions. If you take medications for weight-loss like semaglutide (Ozempic, Wegovy, Rybelsus), dulaglutide (Trulicity), liraglutide (Victoza, Saxenda), exenatide (Byetta, Bydureon), or lixisenatide (Adylyxin), stop your medication 1 week prior to your procedure. If you take medications like canagliflozin (Invokana), dapagliflozin (Farxiga, Forxiga), empagliflozin (Jardiance), stop your medication 3 days prior to your procedure. If you take ertugliflozin (Steglatro) stop your medication 4 days prior to your procedure. IRON: If you take iron pills, STOP them 1 week BEFORE your procedure, may resume after. OTHER MEDS: May take all other medications (including aspirin, antibiotics, water pills / diuretics like Lasix or Metolozone, blood pressure meds, etc.) at their usual scheduled time with a sip of water. DIET REQUIREMENTS The day before your colonoscopy, you may have a clear liquid diet (see below). The day of your colonoscopy, you may continue a clear liquid diet until 3 hours before your colonoscopy. Within 3 hours of your colonoscopy, take only any medications (as above) with a sip of water. Clear Liquid Diet Broth (chicken, beef or vegetable broth or bullion. Just the broth, no solids). Water Coffee or Tea (NO milk or creamer), but sugar and sugar substitutes are allowed. Clear liquids including clear, yellow, green, blue (NO red, NO orange, NO purple) Sodas / soft drinks Gatorade or other sports drinks Tye-Aid or flavored drinks Plain Jell-O or other gelatins Fruit juice (strained; no-pulp) Popsicles or hard candy BOWEL PREPARATION (GOLYTELY/NULYTELY/TRILYTE/COLYTE) Split Dosing Bowel Prep: This means drinking your bowel prep in two doses. Split dosing helps clean your colon better and makes it less likely that your procedure will be canceled. Fill your prescription for Golytely/Nulytely/Trilyte/Colyte: The afternoon before your colonoscopy, mix the solution and refrigerate. You may add the flavor pack (if present) that came with the bowel preparation. Do not add ice, sugar, or other flavorings to the solution. You will drink your prep in two doses, by several hours. On the evening before your colonoscopy: 1. 6 PM drink the first half of the bowel preparation solution. Drink one 8-ounce glass every 15 minutes. 2. Six hours before your colonoscopy, drink the second half of the solution. Drink one 8-ounce glass every 15 minutes. 3. You may continue a clear liquid diet until 3 hours before your colonoscopy. Bowel prep can work differently from person to person. Some people's bowels move slowly and they may need different instructions. Please see your doctor in office or virtually for personalized bowel prep instructions if you have: Medical condition that needs special accommodations Had a poor bowel prep results or failed bowel prep attempts in the past. Had difficulty with anesthesia during the procedure. FREQUENTLY ASKED QUESTIONS Q: What if I suffer from constipation? A: Recommend taking extra laxatives to resolve your constipation days prior to entering the bowel prep day. Q: What if have had prior poor preps results in past? A: Contact your physician as you will likely need additional bowel prep instructions. Q: What if I have motility issues like Parkinson's, MS (multiple sclerosis), wheelchair dependent, etc.? or on medications that slow bowel emptying (narcotics, gabapentin, anticholinergic medications etc.) A: Contact your physician as you will likely need extra time and additional laxatives to complete your bowel prep. Q: What if I cannot drink large volume of liquid? A: Start your prep 2-3 hours earlier to allow yourself more time to complete the entire prep. Q: What if I can't finish my bowel prep? A: If you cannot finish your entire bowel prep, it is likely that your colonoscopy will need to be rescheduled due to poor prep quality. Q: What if I had bariatric surgery? Do I still have to complete the entire prep? A: Yes, gastric bypass surgery involves the stomach & small bowel. You may need to drink smaller amounts, slower (may need more time to complete your bowel prep). Gastric bypass does not alter the length of your colon so you will need to complete the entire bowel prep, it may just take longer time to complete it. Q: What if I am on dialysis? A: Please consult your ski topper prior to scheduling to get instructions pertinent to you. In general, dialysis patients take the Golytely bowel prep and have the procedure same day of their dialysis (colonoscopy in AM, dialysis in PM). Q: How do I know if something is considered as clear liquid diet? A: If you can pour it in a glass and you can see through it, it is considered clear liquid Q: Can I eat nuts, seeds, beans, popcorn, dried fruits, vegetables & fruits that have skin peel? A: No, you will need to not eat these items starting 3 days prior to procedure. Q: Can I take Uber/Lyft/taxi/bus home? A: An adult MUST be present with you at check-in for your colonoscopy and remain in the endoscopy area until you are discharged. You can take Uber home only if this adult escort is with you at check in, remain in the endoscopy area until you are discharged, and takes the Uber with you to home. Q: Can I sleep it off here and drive myself home? A: No, you must have an adult with you at time of procedure check in, remain in the endoscopy center during your procedure, and drive you home. You cannot drive a vehicle after your procedure the rest of the day. documented in this encounter [facility] 09-02-2024 Telephone encounter Note Advised Bg that consult order was placed Warm transferred to a weight shifter to make appointment [facility] 09-02-2024 Miscellaneous Notes Advised Bg that consult order was placed Warm transferred to a weight shifter to make appointment Sure, GI consult has been placed. LISA Condon Inboxologist Covering provider for Samm Kc DO Spoke with Bg and advised of message below Verbalizes understanding She states that he has not mentioned any concerning symptoms but is asking if he can have a GI referral to discuss family history concerns along with concerns that he has polyps with every colonoscopy Please advise if referral can be placed and we can assist with appointment I reviewed the patient's pathology results from May which showed adenomas, only about 10% of these become cancer. The actual removal of them help reduce that chance even farther. Based on current guidelines, a repeat scope in 3 yrs is recommended as this is soon enough to make sure they are finding any new polyp growth to therefore again lower his risk of developing cancer. Having another scope now is not recommended unless he has had a change in bowels, rectal bleeding, bloody or dark stools, etc. Let me know if this is the case and we will consult GI for further evaluation. Karol Rodriguez APRN.RHONDA Justin is calling Samm Kc DO today with concern regarding Orders Patient's is calling in today to get orders for colonoscopy; I stated that it is recommended to have done in 3 years; she thinks that it should be sooner? States we already know he has an issue why are we waiting so long to check on this again? - Repeat colonoscopy in 3 years for surveillance. Procedure Code(s): --- Professional --- 83173, Colonoscopy, flexible; with removal of tumor(s), polyp(s), or other lesion(s) by snare technique Patient has been identified by name and birthdate. Duration of symptoms: N/A Person calling: spouse: Bg [phone] Was an appointment scheduled: No Closing statement: Results or non-symptom based questions: Thank you for calling [facility], your call will be returned within the next business day. Argentina Simpson documented in this encounter [facility] 09-02-2024 Telephone encounter Note Sure, GI consult has been placed. LISA Condon Inboxologist Covering provider for Samm Kc DO [facility] 09-01-2024 Telephone encounter Note Spoke with Bg and advised of message below Verbalizes understanding She states that he has not mentioned any concerning symptoms but is asking if he can have a GI referral to discuss family history concerns along with concerns that he has polyps with every colonoscopy Please advise if referral can be placed and we can assist with appointment [facility] 09-01-2024 Telephone encounter Note I reviewed the patient's pathology results from May which showed adenomas, only about 10% of these become cancer. The actual removal of them help reduce that chance even farther. Based on current guidelines, a repeat scope in 3 yrs is recommended as this is soon enough to make sure they are finding any new polyp growth to therefore again lower his risk of developing cancer. Having another scope now is not recommended unless he has had a change in bowels, rectal bleeding, bloody or dark stools, etc. Let me know if this is the case and we will consult GI for further evaluation. Karol Rodriguez APRN.CNP T [facility] 09-01-2024 Telephone encounter Note Justin is calling Samm Kc DO today with concern regarding Orders Patient's is calling in today to get orders for colonoscopy; I stated that it is recommended to have done in 3 years; she thinks that it should be sooner? States we already know he has an issue why are we waiting so long to check on this again? - Repeat colonoscopy in 3 years for surveillance. Procedure Code(s): --- Professional --- 22544, Colonoscopy, flexible; with removal of tumor(s), polyp(s), or other lesion(s) by snare technique Patient has been identified by name and birthdate. Duration of symptoms: N/A Person calling: spouse: Bg [phone] Was an appointment scheduled: No Closing statement: Results or non-symptom based questions: Thank you for calling [facility], your call will be returned within the next business day. Argentina Simpson T [facility] 08-29-2024 Telephone encounter Note Name of caller: Kavita Relation to patient: ex spouse Reason for call: Other question Patient's documented phone number: [phone] (home) Last visit in this department: 08/05/2024 Last visit with PCP: 08/05/24 Patient question/concern: ex spouse calling she he is asking if pt can have something so that he can sleep at night or what do you recommend to give him Can we send you a response via ZYOMYX? No Routed message to Dr. Garcia May we leave a message? Yes Tammie Henry [facility] Work Phone: 08-29-2024 Miscellaneous Notes Name of caller: Kavita Relation to patient: ex spouse Reason for call: Other question Patient's documented phone number: [phone] (home) Last visit in this department: 08/05/2024 Last visit with PCP: 08/05/24 Patient question/concern: ex spouse calling she he is asking if pt can have something so that he can sleep at night or what do you recommend to give him Can we send you a response via ZYOMYX? No Routed message to Dr. Garcia May we leave a message? Yes Tammie Henry documented in this encounter [facility] 08-20-2024 Telephone encounter Note Order mailed to Bg at address on file [facility] 08-20-2024 Miscellaneous Notes Order mailed to Bg at address on file Name of caller: Bg Relation to patient: Caregiver ( ex spouse ) Reason for call: Orders Patient's documented phone number: [phone] (home) Last visit in this department: 08/05/2024 Last visit with PCP: 08/05/2024 Patient question/concern: Bg calling to ask for a referral to [facility] - they provide help in the home, relieve the caregiver and give assistance with activities of daily living. Please mail to caregiver at the address on file. Can we send you a response via ZYOMYX? No Routed message to Dr. Garcia May we leave a message? Yes Thelma Vargas documented in this encounter [facility] 08-19-2024 Telephone encounter Note Name of caller: Bg Relation to patient: Caregiver ( ex spouse ) Reason for call: Orders Patient's documented phone number: [phone] (home) Last visit in this department: 08/05/2024 Last visit with PCP: 08/05/2024 Patient question/concern: Bg calling to ask for a referral to [facility] - they provide help in the home, relieve the caregiver and give assistance with activities of daily living. Please mail to caregiver at the address on file. Can we send you a response via ZYOMYX? No Routed message to Dr. Garcia May we leave a message? Yes Thelma Vargas [facility] 08-06-2024 Telephone encounter Note Spouse called back and message was reviewed with her and she expressed understanding. [facility] 08-06-2024 Miscellaneous Notes Spouse called back and message was reviewed with her and she expressed understanding. I called the patient's spouse, and left a message to call us back. Call back number provided. Not yet. Too many changes too fast. I was planning on starting antidepressant in November at the follow up appointment. Too many medications too quick can cause unexpected differences. Pola Garcia MD Name of caller: Mrs. Barone Relation to patient: spouse Reason for call: antidepressant meds Patient's documented phone number: [phone] (home) Last visit in this department: 08/05/2024 Last visit with PCP: 08/05/2024 Patient question/concern: spouse calling she said it was mentioned at the OV that he was going to prescribe a antidepressant medication for pt spouse said she want to know were you sending an antidepressant for pt to the pharmacy Can we send you a response via ZYOMYX? No Routed message to Dr. Garcia May we leave a message? Yes Shellwonder Nessa Henry documented in this encounter [facility] 08-06-2024 Telephone encounter Note I called the patient's spouse, and left a message to call us back. Call back number provided. [facility] 08-06-2024 Telephone encounter Note Not yet. Too many changes too fast. I was planning on starting antidepressant in November at the follow up appointment. Too many medications too quick can cause unexpected differences. Pola Garcia MD [facility] 08-05-2024 Telephone encounter Note Name of caller: Mrs. Barone Relation to patient: spouse Reason for call: antidepressant meds Patient's documented phone number: [phone] (home) Last visit in this department: 08/05/2024 Last visit with PCP: 08/05/2024 Patient question/concern: spouse calling she said it was mentioned at the OV that he was going to prescribe a antidepressant medication for pt spouse said she want to know were you sending an antidepressant for pt to the pharmacy Can we send you a response via ZYOMYX? No Routed message to Dr. Garcia May we leave a message? Yes Tammie Henry [facility] Work Phone: 08-05-2024 Instructions Pola Garcia MD - 08/05/2024 10:21 AM EST - Reduce Metformin dosage to 500 mg once daily with breakfast. - Start Chantix as prescribed to help quit smoking. - Increase protein intake in your diet to maintain muscle mass and strength. - Follow up with your primary care physician to monitor progress and make any necessary adjustments to your care plan. documented in this encounter [facility] 08-05-2024 Note [facility] 08-05-2024 History of Present illness Narrative Images from the original note were not included. [facility] Initial Cognitive Evaluation Tere Barone is a 74 year old year old male who comes for Comprehensive Geriatric Assessment. Pt accompanied by: Living partner (ex-) and [id number] Caregivers involved in care: Ex- HPI: Pt states he was brought in by his . Denies any concerns. Per living partner: Pt's living partner does IADLs (cooking, cleaning, chores). She states he is capable of doing ADLs, such as bathing himself, but he is not interested in doing them so she does them for him. She states he is no socializes with her, but he talks with his sister on the phone. She notes the patient is having short-term memory loss X 1 year that is not worsening. She reports that he recently started shoplifting candy when visiting stores. Daughter six months ago and living partner states he is in grief and depressed. Any Family History of dementia? Per living partner, pt's sister with Parkinson's disease that was diagnosed a few years ago. Are you or your spouse a ? No Alzheimer's Questionnaire (Melissa 2010) THE CAREGIVER REPORTS THAT THE PATIENT: - Has memory loss - Has worse memory than a few years ago - Repeats questions, statements, or stories in the same day - Forgets appointments or needs caregiver to track events/appointments (Living partner is there to recall apointments) - Has difficulty driving, or drives in way that concerns the caregiver, or has stopped driving (has not been driving for the past year) - Has significantly reduced recreational activities THE CAREGIVER DENIES THAT THE PATIENT: - Misplaces items more than once a month, or so that s/he cannot find them - Suspects others are moving/hiding/stealing items when s/he cannot find them - Frequently has trouble knowing the date, uses cues like newspaper or calendar more than once a day - Becomes disoriented in unfamiliar places - Becomes more confused outside the home or when traveling - Has trouble remembering to take medications - Has trouble using appliances - Has difficulty completing household tasks or repairs - Is getting lost in familiar surroundings - Has a decreased sense of direction - Has trouble finding words other than names - Confuses names of family members or friends - [facility] difficulty [facility] [place] - FUNCTIONAL ABILITY - DIFFICULTY HANDLING MONEY: Living partner handles finances. [facility] [place] QUESTIONNAIRE - FUNCTIONAL ABILITY - TROUBLE HANDLING BILLS: Living partner handles finances. Alzheimer's Questionnaire score = 7 (19/21 questions answered) Long-term Memory: Difficulty remembering distant events from the past like childhood, previous employment, wedding: NO Behavioral/personality: Withdrawn/Depressed: YES. Does not socialize unless on the phone with his sister. Crying spells: NO Anxious: NO History of aggression: NO History of irritability: NO Apathy:YES Recent changes in weight or appetite: YES. Living partner states he is losing weight and he no longer has an appetite. Alcohol or Drug use: NO Smoking? YES. Living partner reports 0.5ppd Sleep: Do you snore loudly (louder than talking or loud enough to be heard through closed doors)? NO Do you often feel tired, fatigued, or sleepy during daytime? NO Has anyone observed you stop breathing during your sleep? NO Are you restless when you sleep at night? NO Do you have problems falling a sleep? NO Do you have problems staying a sleep? NO Psychosis: Hallucinations or delusions: NO Suicidal or homicidal ideations: NO Obsessions, compulsions, or hoarding: NO Safety: Does pt know his/her address? YES What would you do if there was a fire? Living partner states that he would be able to get out of the fire safely. How would you call for help? Would call 911 Does he/she know 911? Are there any firearms in the home? NO If yes are they in a secure location? N/A Social History: Primary language: Salvadorean Marital Status: Living situation: but he is living with his ex-. Socially engaged? (participates in activities such as clubs, judaism, community center, sports, games, visiting friends/relatives, etc?): NO. Pt's living partner states that he will only talk to his sister on the phone. Caregiver [place] and Stress Are your feeling overwhelmed? YES. Endorses stress when the patient refuses to eat. Do you have concerns about your own health? NO Are you neglecting your own needs? NO Do you have financial concerns? YES Do your fear loss of employment? NO Do you have concerns about verbal/physical abuse? NO Do you feel that you are still capable of taking care of your relative? YES. Living partner states that it can be tiring to aid with ADLs. Are you willing to continue being in the caregiver role? YES B-ADLs: (I=independent,A=assistance,D=depend ent) ?Bathing: A, Dressing: I, Toileting: I, Transferring:D, Continence: I, Feeding: I, (Phillips Index): 4 I-ADLs: Ability to use phone: I, Shopping: I, Living partner will give him a list for shopping and the pt goes independently. Cooking: D, Housekeeping: D, Laundry: D, Transportation:D, Medications: A, Living partner organizes his medications for him. Handle Finances: D. (Man scale): 2 PMHx: PAST MEDICAL HISTORY Diagnosis Date Alcohol abuse 04/18/2022 Carpal tunnel syndrome of left wrist Carpal tunnel syndrome on right Chronic bilateral low back pain without sciatica 10/01/2017 COVID-19 08/03/2021 Dependence on nicotine from cigarettes Elevated troponin 07/23/2021 Essential hypertension 08/03/2021 Frequent falls 08/03/2021 Mixed hyperlipidemia Multiple falls 08/04/2021 Nicotine use disorder, F17.2 Obesity, Class I, BMI 30-34.9 08/03/2021 Osteoarthritis Pseudophakia of left eye 09/2012 Sleep apnea Spinal stenosis Syncope 07/23/2021 Thoracic or lumbosacral neuritis or radiculitis, unspecified Type 2 diabetes mellitus with hyperglycemia (HCC) 08/03/2021 PSHx: PAST SURGICAL HISTORY Procedure Laterality Date ARTHRD ANT INTERBODY MIN DSC LUMBAR 1989 NEUROPLASTY &/TRANSPOS MEDIAN NRV CARPAL TUNNE 2009 Carpal tunnel decomp Lt. XCAPSL CTRC RMVL INSJ IO LENS PROSTH W/O ECP 09/2012 Cataract Extraction with PC IOL left Home Meds: Prior to Admission medications : Medication metFORMIN ER (GLUCOPHAGE XR) 500 mg 24 hr tablet, Sig Take 2 tablets by mouth two times a day with meals., Start Date 08/01/24, End Date , Taking? Yes, Authorizing Provider Migdalia Knapp APRN.[facility] [employer] Medication semaglutide (RYBELSUS) 14 mg tablet, Sig Take 1 tablet (14 mg) by mouth daily before breakfast., Start Date 07/15/24, End Date , Taking? Yes, Authorizing Provider iMgdalia Knapp APRN.[facility] [employer] Medication losartan (COZAAR) 25 mg tablet, Sig Take 1 tablet by mouth once daily., Start Date 06/09/24, End Date , Taking? Yes, Authorizing Provider Samm Kc, Medication peg 3350-Electrolytes (GOLYTELY) 236-22.74-6.74 -5.86 gram suspension, Sig Refer to printed patient instructions that will be mailed to you., Start Date 05/05/24, End Date , Taking? Yes, Authorizing Provider Lise Corado MD, PhD Medication peg 3350-Electrolytes (GOLYTELY) 236-22.74-6.74 -5.86 gram suspension, Sig Refer to printed patient instructions that will be mailed to you., Start Date 05/05/24, End Date , Taking? Yes, Authorizing Provider Lesly Bender MD Medication memantine (NAMENDA) 10 mg tablet, Sig Take 1 tablet by mouth two times a day. Patient should start on November 23, 2023., Start Date 03/18/24, End Date , Taking? Yes, Authorizing Provider Sammi Velarde APRN.[facility] Medication Fluorouracil (EFUDEX) 5 % cream, Sig Apply 2x daily to SCCis of right dorsal hand for 6 weeks. May stop for few days or decrease to once daily for discomfort., Start Date 03/17/24, End Date , Taking? Yes, Authorizing Provider Jatin Garrett MD Medication Blood-Glucose Meter, Sig To check blood sugar once a day. E11.9 any brand covered by insurance is ok, Start Date 01/09/24, End Date , Taking? Yes, Authorizing Provider Sedrick Roberts MD Medication Lancets (ONETOUCH ULTRASOFT LANCETS), Sig To check blood sugar once a day. E11.9 any brand covered by insurance is ok, Start Date 01/09/24, End Date , Taking? Yes, Authorizing Provider Sedrick Roberts MD Medication blood sugar diagnostic (BLOOD GLUCOSE TEST) test strip, Sig To check blood sugar once a day. E11.9 any brand covered by insurance is ok, Start Date 01/09/24, End Date , Taking? Yes, Authorizing Provider Sedrick Roberts MD Medication atorvastatin (LIPITOR) 80 mg tablet, Sig Take 1 tablet by mouth daily at bedtime., Start Date 01/01/24, End Date 12/31/24, Taking? Yes, Authorizing Provider Toni Duran APRN.[employer]ER Medication metoprolol succinate ER (TOPROL XL) 25 mg 24 hr tablet, Sig Take 1 tablet by mouth once daily., Start Date 11/14/23, End Date 11/08/24, Taking? Yes, Authorizing Provider Samm Kc, DO Medication aspirin 81 mg chewable tablet, Sig CHEW AND SWALLOW 1 (ONE) TABLET EVERY DAY, Start Date 04/18/23, End Date , Taking? Yes, Authorizing Provider Samm Kc, DO Medication cyanocobalamin (VITAMIN B-12) 1,000 mcg tab, Sig Take 1 tablet by mouth once daily., Start Date 01/30/23, End Date , Taking? Yes, Authorizing Provider Taiwo Lee MD Medication B Complex-Folic Acid (B COMPLEX 1, WITH FOLIC ACID,) 0.4 mg tab, Sig Take 1 tablet by mouth once daily., Start Date 10/10/22, End Date 08/05/24, Taking? Yes, Authorizing Provider Samm Kc, DO Medication thiamine (VITAMIN B1) 100 mg tablet, Sig 100 mg once daily., Start Date 10/19/21, End Date , Taking? Yes, Authorizing Provider Provider, [facility] Medication Cholecalciferol, Vitamin D3, 25 mcg (1,000 unit) cap, Sig Take 1,000 Units by mouth once daily., Start Date 10/27/21, End Date , Taking? Yes, Authorizing Provider Provider, [facility] Medication acetaminophen (TYLENOL) 325 mg tablet, Sig Take 1-2 tablets by mouth every 6 hours as needed for pain or fever (specify)., Start Date 08/16/21, End Date , Taking? Yes, Authorizing Provider Taty Leslie APRN.[employer]ER Other OTC med/supplements: None Medication Review: - ANY HIGH RISK MEDICATIONS (STOPP CRITERIA): NO ALLERGIES No Known Allergies Review of Systems Difficulty chew/swallow: No Pain: No Tremor: No Incontinence - During the last 3 months did you leak urine? NO Constipation/Change in bowel habits: NO Vision No vision problems reported Follows with second time worker:YES Hearing - Hearing aid : Denies any problems Falls: .: Falls in the last 12 months: None. Physical Exam: BP 135/74 (BP Site: Right Arm, BP Position: Sitting, BP Cuff Size: Regular Adult) Pulse 86 Wt 94.3 kg (207 lb 14.3 oz) BMI 29.83 kg/m General: Well-nourished, kempt Ambulatory: wheelchair Mobility Aid: Wheelchair Are you basically satisfied with your life? Yes Have you dropped many of your activities and interests? No Do you feel that your life is empty? No Do you often get bored? No *Are you in good spirits most of the time? Yes Are you afraid that something bad is going to happen to you? No Do you feel happy most of the time? Yes Do you often feel helpless? No Do you prefer staying home rather than going out doing things? No Do you feel you have more problems with memory than most? No *Do you think it is wonderful to be alive now? Yes Do you feel pretty worthless the way you are now? No * Do you feel full of energy? Yes Do you feel that your situation is hopeless? No Do you think that most people are better off than you are? No GDS TOTAL SCORE 0 Visuospatial/exec (0-5) 3 Naming (0-3) 3 Memory Words, up to 2 trials: Face, Velvet, Quaker, Muriel, Red (no points) 0 Attention forwards: 2 1 8 5 4 (0-1) 1 Attention backwards: 7 4 2 (0-1) 1 Tap for the A: F B A C M N A A J K L B A F A K D E A A A J A M O F A A B (1 point if 0 or 1 error) 1 Serial subtraction by 7: [id number] (3 points for correct 4 or 5; 2 points for 2 or 3 correct; 1 point for 1 correct) 1 Language: repeat: I only know that Carson is the one to help today (0-1) 0 Language: repeat: The cat always hid under the couch when dogs were in the room (0-1) 1 Fluency: max words beginning with the letter F (1 point if 11 or more words) 1 Abstraction: practice banana-orange=fruit. Then train-bicycle (1) AND watch-ruler (1) total: (2) 2 Delayed recall: recall words: face, velvet, judaism, muriel, red (0-5) 0 Orientation: date(1), month(1), year(1), day(1), place(1), city(1) max 6 points 6 Level of education: add 1 if did not receive more than a HS education HS (+1) Total Score 21 Hearing impaired (Y or N) No Vision impaired (Y or N) No CDR Dementia Scale 1) Subjective Memory Loss: YES 2) Measurable Memory Loss: YES 3) IADLs: YES 4) BADLs: NO Driving Safely: No < 50% 6) Medications: No Level: FAST 4 Assessment and Plan: I. Medical /Mental Status/Decision Making Capacity Impaired decision making, dependent on surrogate, unable to articualte medical problems, explain meds or treatments, discuss prognosis, or even communicate a clear choice and preference. II. Physical/Function - Patient is Partially independent, with Fair functional baseline. No indications to intervene at present - Patient with decreased appetite and a history of T2DM. Last HbA1c 5.7. Per living partner and patient, he is unhappy with the number of medications he is taking. Plan: Given recent improvements in HbA1c, recent weight loss, and patient's concerns with taking too many medications, decreased metformin to 500mg once a day. Continue to monitor HbA1c and blood glucose levels. III. Living Environment / Social - Patient is living with his ex-. She reports that he is more withdrawn. Mood changes after 2021 COVID-19 hospitalization and of daughter 6 months ago. Patient GDS screening negative, but living partner is concerned about his withdrawn behavior and mood. Difficult to assess MDD criteria. Plan: Given living partner's concerns of worsening depressive symptoms (anhedonia and depressed mood) in the setting of a difficult COVID-19 hospitalization course and recent of daughter, f/u to address MDD and potential SSRI. -Patient is a current smoker (~0.5ppd) with a history of vascular dementia and ~80% Right ICA stenosis. These findings, along with subjective short-term memory loss and MOCA findings, indicate that smoking cessation will likely be beneficial in slowing dementia progression by decreasing stroke risk. Plan: Discussed with patient extensively about tobacco use and risk of stroke. Covered smoking cessation, and patient interested and agreeable to starting varenicline. IV. Advanced Care Planning: - HCPOA: None Artis Melendez M3 August 05, 2024 12:07 PM TEACHING PHYSICIAN NOTE OF PERSONAL INVOLVEMENT IN CARE: I have personally seen and examined the patient and performed the medical decision-making components. I have reviewed the medical student documentation and verified the findings in the note as written. Any additions or changes are noted in bold/italics. REFERRALS AND RECOMMENDATIONS 1. Discussed the cognitive benefits of memory exercises and reviewed examples 2. Discussed the cognitive benefits of physical exercise and socialization Tere Barone is a 74-year-old male with a history of CVA, carotid artery stenosis, and DM, accompanied by his who is providing history on his behalf, presenting for evaluation of memory issues and weight loss. Memory Issues: - Tere has been experiencing memory issues, with difficulty remembering appointments and tasks. - reports that he is dependent on her for managing finances, cooking, and cleaning. - Has been seen by other doctors for memory issues; Tere reports that they told him everything's alright. - Tere denies having any medical problems and believes he is doing fine. - Tere is currently taking memantine 10 mg BID. - reports that he has been depressed since the passing of his daughter. - Tere has a history of heavy alcohol use, smoking, and marijuana use. - Tere's sister has Parkinson's disease. Weight Loss: - Tere has lost a significant amount of weight, approximately 40 lbs in the past year. - reports that he has been refusing to eat and is worried about him getting too skinny. - Tere is currently taking semaglutide and metformin for DM management. - reports that his A1c has dropped from 9.7 to 5.7 with the weight loss. - Tere is also taking Rybelsus, atorvastatin, and losartan. CVA: - Tere has a history of CVA and carotid artery stenosis, with 70% blockage on one side and 30% on the other. - Tere is currently taking a baby aspirin daily to reduce the risk of stroke. - Tere's mother had a stroke during surgery for carotid artery stenosis. DM: - Tere has a history of DM, currently managed with semaglutide, metformin, and Rybelsus. - reports that his A1c has dropped from 9.7 to 5.7 with the weight loss. - Tere is also taking atorvastatin and losartan for cholesterol and blood pressure management. Constitutional: (+) weight loss, (+) decreased appetite, (+) poor hygiene Ears/Nose/Mouth/Throat: (+) hearing loss Musculoskeletal: (+) back pain, (+) abnormal gait Genitourinary: (+) inappropriate urination Neurological: (+) memory loss Psychiatric: (+) depressed mood, (+) anhedonia, (+) behavioral changes, (+) anosognosia Labs: - Hemoglobin A1c decreased from 9.7% to 5.7% Imaging: - MRI Brain: Multiple areas of white matter hyperintensities consistent with small vessel ischemic disease and prior strokes. - Carotid Doppler Ultrasound: 70% stenosis on one side, 30% on the other. Tests: - (Today) MoCA: Cognitive testing revealed deficits. 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 - Discussed the nature of dementia, including the potential contributions of both Alzheimer's and vascular changes. - Currently on memantine 10 mg BID. - Consider starting sertraline for post-stroke depression and anhedonia. - Educated family on the importance of managing risk factors to slow progression, including smoking cessation and controlling blood pressure and blood sugar. - Discussed the potential need for future memory care or retirement placement. # Type 2 diabetes mellitus without complication, without long-term current use of insulin (HCC) (E11.9) - A1c has improved from 9.7% to 5.7%. - Currently on metformin 500 mg, 2 tablets BID and semaglutide. - Reduced metformin to 500 mg once daily to help with appetite and weight stabilization. - Continue semaglutide. - Emphasized the importance of a balanced diet with adequate protein intake. # Tobacco abuse disorder (Z72.0) # Nicotine dependence, cigarettes, uncomplicated (F17.210) - Patient continues to smoke. - Educated on the significant risk smoking poses to vascular health and dementia progression. - Prescribed Chantix to aid in smoking cessation. - Discussed additional support options such as nicotine patches. # group home (current) use of aspirin (Z79.82) - Continue aspirin therapy for stroke risk reduction. - Reduce Metformin dosage to 500 mg once daily with breakfast. - Start Chantix as prescribed to help quit smoking. - Increase protein intake in your diet to maintain muscle mass and strength. - Follow up with your primary care physician to monitor progress and make any necessary adjustments to your care plan. Signature: Pola Garcia Date: 08/05/2024 Time: 4:39 PM documented in this encounter [facility] 08-01-2024 Miscellaneous Notes Prescription Refill Information The patient has been identified by name and date of : Yes Caregiver verified no other encounters exist for this prescription request: Yes Caregiver confirmed with patient/requestor that no other refills are due, in the near future, with this provider at this time: Yes The last office visit in the department: 01/09/24 Does the patient have a future office visit with this provider/department: Yes-11/26/24 Requested Prescriptions Pending Prescriptions Disp Refills metFORMIN ER (GLUCOPHAGE XR) 500 mg 24 hr tablet [Pharmacy Med Name: metformin ER 500 mg tablet,extended release 24 hr] 360 tablet 3 Sig: Take 2 tablets by mouth two times a day with meals. Mariia Aburto MA August 01, 2024 11:24 AM documented in this encounter [facility] 08-01-2024 Telephone encounter Note Prescription Refill Information The patient has been identified by name and date of : Yes Caregiver verified no other encounters exist for this prescription request: Yes Caregiver confirmed with patient/requestor that no other refills are due, in the near future, with this provider at this time: Yes The last office visit in the department: 01/09/24 Does the patient have a future office visit with this provider/department: Yes-11/26/24 Requested Prescriptions Pending Prescriptions Disp Refills metFORMIN ER (GLUCOPHAGE XR) 500 mg 24 hr tablet [Pharmacy Med Name: metformin ER 500 mg tablet,extended release 24 hr] 360 tablet 3 Sig: Take 2 tablets by mouth two times a day with meals. Mariia Aburto MA August 01, 2024 11:24 AM [facility] 07-15-2024 Telephone encounter Note Patient scheduled for 11/26/24 [facility] 07-15-2024 Miscellaneous Notes Patient scheduled for 11/26/24 Prescription Refill Information The patient has been identified by name and date of : Yes Caregiver verified no other encounters exist for this prescription request: Yes Caregiver confirmed with patient/requestor that no other refills are due, in the near future, with this provider at this time: Yes The last office visit in the department: 01/09/2024 Does the patient have a future office visit with this provider/department: No. Due for 6 month f/u Requested Prescriptions Pending Prescriptions Disp Refills RYBELSUS 14 mg tablet [Pharmacy Med Name: Rybelsus 14 mg tablet] 90 tablet 3 Sig: Take 1 tablet (14 mg) by mouth daily before breakfast. Jaimee Rodarte MA July 14, 2024 9:14 AM documented in this encounter [facility] 07-14-2024 Telephone encounter Note Prescription Refill Information The patient has been identified by name and date of : Yes Caregiver verified no other encounters exist for this prescription request: Yes Caregiver confirmed with patient/requestor that no other refills are due, in the near future, with this provider at this time: Yes The last office visit in the department: 01/09/2024 Does the patient have a future office visit with this provider/department: No. Due for 6 month f/u Requested Prescriptions Pending Prescriptions Disp Refills RYBELSUS 14 mg tablet [Pharmacy Med Name: Rybelsus 14 mg tablet] 90 tablet 3 Sig: Take 1 tablet (14 mg) by mouth daily before breakfast. Jaimee Rodarte MA July 14, 2024 9:14 AM [facility] 07-08-2024 Note [facility] 07-08-2024 History of Present illness Narrative CC: DM 2 f/u S: 73 year old male with history below presents for DM 2 f/u. Hemoglobin A1C (%) Date Value 04/25/2024 5.7 01/04/2024 6.3 07/24/2021 9.7 03/21/2021 7.3 Hemoglobin A1C (POCT) (%) Date Value 08/02/2022 7.5 04/04/2022 7.5 No major complaints today Tolerating meds well Taking meds as prescribed Last 3 Encounter BP Readings: Date: BP: 07/08/2024 114/75 05/29/2024 121/56 05/29/2024 115/74 dementia has been good On memantine Seeing geriatrics next month No CP, SOB, dizziness, lightheadedness, palpitations Seeing derm for FBSE next week Latest Ref Rng 04/25/2024 Protein, Total 6.3 - 8.0 g/dL 6.8 Albumin 3.9 - 4.9 g/dL 4.0 Calcium 8.5 - 10.2 mg/dL 9.1 Bilirubin, Total 0.2 - 1.3 mg/dL 0.2 Alkaline Phosphatase 38 - 113 U/L 92 AST 14 - 40 U/L 25 ALT 10 - 54 U/L 23 Glucose 74 - 99 mg/dL 123 (H) BUN 9 - 24 mg/dL 19 Creatinine 0.73 - 1.22 mg/dL 0.75 Sodium 136 - 144 mmol/L 145 (H) Potassium 3.7 - 5.1 mmol/L 4.1 Chloride 98 - 107 mmol/L 110 (H) CO2 22 - 30 mmol/L 22 Anion Gap 8 - 15 mmol/L 13 eGFR >=60 mL/min/1.73m 95 WBC 3.70 - 11.00 k/uL 8.61 RBC 4.20 - 6.00 m/uL 4.11 (L) Hemoglobin 13.0 - 17.0 g/dL 12.3 (L) Hematocrit 39.0 - 51.0 % 38.1 (L) MCV 80.0 - 100.0 fL 92.7 MCH 26.0 - 34.0 pg 29.9 MCHC 30.5 - 36.0 g/dL 32.3 RDW-CV 11.5 - 15.0 % 13.0 Platelet Count 150 - 400 k/uL 204 MPV 9.0 - 12.7 fL 9.9 Absolute nRBC <0.01 k/uL <0.01 Cholesterol, Total <200 mg/dL 87 Triglyceride <150 mg/dL 52 HDL Cholesterol >39 mg/dL 37 (L) Non HDL Cholesterol <130 mg/dL 50 Fasting Time hrs 10 VLDL Cholesterol <30 mg/dL 10 TC:HDL Ratio <5.10 2.35 LDL Cholesterol <100 mg/dL 40 LDL:HDL Ratio <2.54 1.08 Creatinine, Ur Random (UCRR) 20.0 - 300.0 mg/dL 160.5 Albumin, Urine Random mg/L 46.0 Albumin/Creat Ratio <30 mg/g 29 Hemoglobin A1C 4.3 - 5.6 % 5.7 (H) Estimated Average Glucose mg/dL 117 PSA Screening <2.60 ng/mL 1.63 TSH 0.270 - 4.200 mIU/L 0.853 Former heavy alcohol user No longer consumes alcohol PAST MEDICAL HISTORY Diagnosis Date Alcohol abuse 04/18/2022 Carpal tunnel syndrome of left wrist Carpal tunnel syndrome on right COVID-19 08/03/2021 Dependence on nicotine from cigarettes Elevated troponin 07/23/2021 Essential hypertension 08/03/2021 Frequent falls 08/03/2021 Mixed hyperlipidemia Multiple falls 08/04/2021 Nicotine use disorder, F17.2 Obesity, Class I, BMI 30-34.9 08/03/2021 Osteoarthritis Pseudophakia of left eye 09/2012 Sleep apnea Spinal stenosis Syncope 07/23/2021 Thoracic or lumbosacral neuritis or radiculitis, unspecified Type 2 diabetes mellitus with hyperglycemia (HCC) 08/03/2021 PAST SURGICAL HISTORY Procedure Laterality Date ARTHRD ANT INTERBODY MIN DSC LUMBAR 1988 NEUROPLASTY &/TRANSPOS MEDIAN NRV CARPAL TUNNE 2008 Carpal tunnel decomp Lt. XCAPSL CTRC RMVL INSJ IO LENS PROSTH W/O ECP 09/2012 Cataract Extraction with PC IOL left Current Outpatient Medications Medication Sig Dispense Refill losartan (COZAAR) 25 mg tablet Take 1 tablet by mouth once daily. 90 tablet 3 peg 3350-Electrolytes (GOLYTELY) 236-22.74-6.74 -5.86 gram suspension Refer to printed patient instructions that will be mailed to you. 4000 mL 0 peg 3350-Electrolytes (GOLYTELY) 236-22.74-6.74 -5.86 gram suspension Refer to printed patient instructions that will be mailed to you. 8000 mL 1 memantine (NAMENDA) 10 mg tablet Take 1 tablet by mouth two times a day. Patient should start on November 23, 2023. 180 tablet 1 Fluorouracil (EFUDEX) 5 % cream Apply 2x daily to SCCis of right dorsal hand for 6 weeks. May stop for few days or decrease to once daily for discomfort. 40 g 0 Blood-Glucose Meter To check blood sugar once a day. E11.9 any brand covered by insurance is ok 1 Each 0 Lancets (ONETOUCH ULTRASOFT LANCETS) To check blood sugar once a day. E11.9 any brand covered by insurance is ok 100 Each 1 blood sugar diagnostic (BLOOD GLUCOSE TEST) test strip To check blood sugar once a day. E11.9 any brand covered by insurance is ok 100 Each 1 atorvastatin (LIPITOR) 80 mg tablet Take 1 tablet by mouth daily at bedtime. 90 tablet 3 metoprolol succinate ER (TOPROL XL) 25 mg 24 hr tablet Take 1 tablet by mouth once daily. 90 tablet 3 semaglutide (RYBELSUS) 14 mg tablet Take 1 tablet (14 mg) by mouth daily before breakfast. 90 tablet 3 metFORMIN ER (GLUCOPHAGE XR) 500 mg 24 hr tablet Take 2 tablets by mouth two times a day with meals. 360 tablet 3 aspirin 81 mg chewable tablet CHEW AND SWALLOW 1 (ONE) TABLET EVERY DAY 30 tablet 2 cyanocobalamin (VITAMIN B-12) 1,000 mcg tab Take 1 tablet by mouth once daily. B Complex-Folic Acid (B COMPLEX 1, WITH FOLIC ACID,) 0.4 mg tab Take 1 tablet by mouth once daily. 30 tablet 5 thiamine (VITAMIN B1) 100 mg tablet 100 mg once daily. Cholecalciferol, Vitamin D3, 25 mcg (1,000 unit) cap Take 1,000 Units by mouth once daily. acetaminophen (TYLENOL) 325 mg tablet Take 1-2 tablets by mouth every 6 hours as needed for pain or fever (specify). No current facility-administered medications for this visit. SOCIAL (pertinent): Social History Tobacco Use Smoking status: Every Day Current packs/day: 0.25 Average packs/day: 0.3 packs/day for 20.0 years (5.0 ttl pk-yrs) Types: Cigarettes Smokeless tobacco: Never Vaping Use Vaping status: Never Used Substance Use Topics Alcohol use: Not Currently Alcohol/week: 24.0 standard drinks of alcohol Types: 24 Cans of Beer (12oz) per week Drug use: No FAMILY (pertinent): FAMILY HISTORY Problem Relation Age of Onset Diabetes Mother Heart Mother Hypertension Mother Stroke Mother Cataract Mother Glaucoma Mother Macular Degen Father Cancer Sister Parkinsonism Sister Asthma Sister Headache Brother Cancer Brother Heart Attack Brother ROS: See HPI O: PHYSICAL EXAM: BP 114/75 Pulse 96 Wt 89.4 kg (197 lb) SpO2 100% BMI 28.27 kg/m Gen: Patient is pleasant, alert, NAD, well appearing, soft spoken, answering questions appropriately Head: Normocephalic, atraumatic CV: Regular rate and rhythm, normal S1/S2, no murmurs, rubs Pulm: Clear to auscultation bilaterally, no wheezes, crackles, or rhonchi Neuro: EOMI, no involuntary movements. Extrem: No cyanosis, clubbing, or edema. Distal pulses equal and palpable b/l Skin: Warm, dry, no visible rashes A/P: 73 year old male with ASSESSMENT/PLAN: 1. Type 2 diabetes mellitus without complication, without long-term current use of insulin (HCC) - ICD9: 250.00, ICD10: E11.9 (primary diagnosis) - Controlled - Continue current medications - Counseled on healthy diet and regular exercise - HEMOGLOBIN A1C - COMPREHENSIVE METABOLIC PANEL - COMPLETE BLOOD COUNT - LIPID PANEL BASIC 2. Dementia with behavioral disturbance (HCC) - ICD9: 294.21, ICD10: F03.918 Stable Continue current Tx plan per geriatrics 3. Ascending aorta dilatation (HCC) - ICD9: 447.71, ICD10: I77.810 Stable Continue surveillance plan per cardiology 4. Essential hypertension - ICD9: 401.9, ICD10: I10 - Controlled - Continue current medications - Recommend home blood pressure monitoring, to bring results to next visit - Encouraged sodium restriction, DASH or Mediterranean diet - Recommend regular aerobic exercise - HEMOGLOBIN A1C - COMPREHENSIVE METABOLIC PANEL - COMPLETE BLOOD COUNT - LIPID PANEL BASIC 5. Mixed hyperlipidemia - ICD9: 272.2, ICD10: E78.2 - Controlled - Continue current medications - Counseled on healthy diet and regular exercise - HEMOGLOBIN A1C - COMPREHENSIVE METABOLIC PANEL - COMPLETE BLOOD COUNT - LIPID PANEL BASIC 6. Screening for diabetic retinopathy - ICD9: V80.2, ICD10: Z13.5 - CONSULT TO OPHTHALMOLOGY Samm Kc DO July 08, 2024 11:01 AM Follow up in 6 months for DM management documented in this encounter [facility] 06-09-2024 Telephone encounter Note The following approved medication requests have been transmitted electronically. Requested Prescriptions Pending Prescriptions Disp Refills losartan (COZAAR) 25 mg tablet [Pharmacy Med Name: losartan 25 mg tablet] 90 tablet 3 Sig: Take 1 tablet by mouth once daily. Samm Kc DO [facility] 06-09-2024 Miscellaneous Notes The following approved medication requests have been transmitted electronically. Requested Prescriptions Pending Prescriptions Disp Refills losartan (COZAAR) 25 mg tablet [Pharmacy Med Name: losartan 25 mg tablet] 90 tablet 3 Sig: Take 1 tablet by mouth once daily. Samm Kc DO Patient electronically sent a request for the following prescription(s) Requested Prescriptions Pending Prescriptions Disp Refills losartan (COZAAR) 25 mg tablet [Pharmacy Med Name: losartan 25 mg tablet] 90 tablet 3 Sig: Take 1 tablet by mouth once daily. Patient aware RX will be sent to pharmacy. No need to notify patient. Last Office Visit: 04/23/2024 with PCP Next Office Visit: 07/08/2024 with PCP Please review. Lily Eason MA documented in this encounter [facility] 06-09-2024 Telephone encounter Note Patient electronically sent a request for the following prescription(s) Requested Prescriptions Pending Prescriptions Disp Refills losartan (COZAAR) 25 mg tablet [Pharmacy Med Name: losartan 25 mg tablet] 90 tablet 3 Sig: Take 1 tablet by mouth once daily. Patient aware RX will be sent to pharmacy. No need to notify patient. Last Office Visit: 04/23/2024 with PCP Next Office Visit: 07/08/2024 with PCP Please review. Lily Eason MA [facility] 06-03-2024 Telephone encounter Note Spoke with patient to give results of colonoscopy. Pt verbalized understanding and appreciated call Rakel Dao RN [facility] 06-03-2024 Miscellaneous Notes Spoke with patient to give results of colonoscopy. Pt verbalized understanding and appreciated call Rakel Dao RN ----- Message from Yusra Beltran DO sent at 05/30/2024 4:27 PM EST ----- Please let him know polyp(s) removed during colonoscopy were adenoma(s) and follow-up colonoscopy is recommended in 3 years. ----- Message from Yusra Beltran DO sent at 05/30/2024 4:27 PM EST ----- Please let him know polyp(s) removed during colonoscopy were adenoma(s) and follow-up colonoscopy is recommended in 3 years. documented in this encounter [facility] 06-02-2024 Telephone encounter Note ----- Message from Yusra Beltran DO sent at 05/30/2024 4:27 PM EST ----- Please let him know polyp(s) removed during colonoscopy were adenoma(s) and follow-up colonoscopy is recommended in 3 years. [facility] 06-02-2024 Telephone encounter Note ----- Message from Yusra Beltran DO sent at 05/30/2024 4:27 PM EST ----- Please let him know polyp(s) removed during colonoscopy were adenoma(s) and follow-up colonoscopy is recommended in 3 years. [facility] 05-30-2024 Telephone encounter Note Advised patient's of consult order being placed and warm transferred to a weight shifter to make appointment [facility] 05-30-2024 Miscellaneous Notes Advised patient's of consult order being placed and warm transferred to a weight shifter to make appointment Consult placed. Please assist with scheduling Justin is calling Samm Kc DO today with concern regarding Referral Request Patient's spouse is calling in asking for a referral to Geriatrics/Dementia; to also help with his depression. If you can please help with this. Patient has been identified by name and birthdate. Duration of symptoms: N/A Person calling: spouse: Bg [phone] Was an appointment scheduled: No Closing statement: Results or non-symptom based questions: Thank you for calling [facility], your call will be returned within the next business day. Argentina Simpson documented in this encounter [facility] 05-30-2024 Telephone encounter Note Consult placed. Please assist with scheduling [facility] 05-30-2024 Telephone encounter Note Justin is calling Samm Kc DO today with concern regarding Referral Request Patient's spouse is calling in asking for a referral to Geriatrics/Dementia; to also help with his depression. If you can please help with this. Patient has been identified by name and birthdate. Duration of symptoms: N/A Person calling: spouse: Bg [phone] Was an appointment scheduled: No Closing statement: Results or non-symptom based questions: Thank you for calling [facility], your call will be returned within the next business day. Argentina Simpson [facility] 05-29-2024 History and physical note REASON FOR VISIT: hx of polyps HPI: Tere Barone is a 73 year old male who presents for surveillance colonoscopy. No current GI complaints. ALLERGIES No Known Allergies PAST MEDICAL HISTORY Diagnosis Date Alcohol abuse 04/18/2022 Carpal tunnel syndrome of left wrist Carpal tunnel syndrome on right COVID-19 08/03/2021 Dependence on nicotine from cigarettes Elevated troponin 07/23/2021 Essential hypertension 08/03/2021 Frequent falls 08/03/2021 Mixed hyperlipidemia Multiple falls 08/04/2021 Nicotine use disorder, F17.2 Osteoarthritis Pseudophakia of left eye 09/2012 Sleep apnea Spinal stenosis Syncope 07/23/2021 Thoracic or lumbosacral neuritis or radiculitis, unspecified Type 2 diabetes mellitus with hyperglycemia (HCC) 08/03/2021 PAST SURGICAL HISTORY Procedure Laterality Date ARTHRD ANT INTERBODY MIN DSC LUMBAR 1989 NEUROPLASTY &/TRANSPOS MEDIAN NRV CARPAL TUNNE 2009 Carpal tunnel decomp Lt. XCAPSL CTRC RMVL INSJ IO LENS PROSTH W/O ECP 09/2012 Cataract Extraction with PC IOL left FAMILY HISTORY Problem Relation Age of Onset Diabetes Mother Heart Mother Hypertension Mother Stroke Mother Cataract Mother Glaucoma Mother Macular Degen Father Cancer Sister Parkinsonism Sister Asthma Sister Headache Brother Cancer Brother Heart Attack Brother Social History Tobacco Use Smoking status: Every Day Current packs/day: 0.25 Average packs/day: 0.3 packs/day for 20.0 years (5.0 ttl pk-yrs) Types: Cigarettes Smokeless tobacco: Never Vaping Use Vaping status: Never Used Substance Use Topics Alcohol use: Not Currently Alcohol/week: 24.0 standard drinks of alcohol Types: 24 Cans of Beer (12oz) per week Drug use: No Current Outpatient Medications Medication Sig peg 3350-Electrolytes (GOLYTELY) 236-22.74-6.74 -5.86 gram suspension Refer to printed patient instructions that will be mailed to you. peg 3350-Electrolytes (GOLYTELY) 236-22.74-6.74 -5.86 gram suspension Refer to printed patient instructions that will be mailed to you. atorvastatin (LIPITOR) 80 mg tablet Take 1 tablet by mouth daily at bedtime. metoprolol succinate ER (TOPROL XL) 25 mg 24 hr tablet Take 1 tablet by mouth once daily. semaglutide (RYBELSUS) 14 mg tablet Take 1 tablet (14 mg) by mouth daily before breakfast. metFORMIN ER (GLUCOPHAGE XR) 500 mg 24 hr tablet Take 2 tablets by mouth two times a day with meals. aspirin 81 mg chewable tablet CHEW AND SWALLOW 1 (ONE) TABLET EVERY DAY cyanocobalamin (VITAMIN B-12) 1,000 mcg tab Take 1 tablet by mouth once daily. thiamine (VITAMIN B1) 100 mg tablet 100 mg once daily. Cholecalciferol, Vitamin D3, 25 mcg (1,000 unit) cap Take 1,000 Units by mouth once daily. memantine (NAMENDA) 10 mg tablet Take 1 tablet by mouth two times a day. Patient should start on November 23, 2023. Fluorouracil (EFUDEX) 5 % cream Apply 2x daily to SCCis of right dorsal hand for 6 weeks. May stop for few days or decrease to once daily for discomfort. Blood-Glucose Meter To check blood sugar once a day. E11.9 any brand covered by insurance is ok Lancets (ONETOUCH ULTRASOFT LANCETS) To check blood sugar once a day. E11.9 any brand covered by insurance is ok blood sugar diagnostic (BLOOD GLUCOSE TEST) test strip To check blood sugar once a day. E11.9 any brand covered by insurance is ok losartan (COZAAR) 25 mg tablet Take 1 tablet by mouth once daily. B Complex-Folic Acid (B COMPLEX 1, WITH FOLIC ACID,) 0.4 mg tab Take 1 tablet by mouth once daily. acetaminophen (TYLENOL) 325 mg tablet Take 1-2 tablets by mouth every 6 hours as needed for pain or fever (specify). Current Facility-Administered Medications Medication Dose Route Frequency lidocaine (PF) 10 mg/mL (1 %) 1-2 mg injection (XYLOCAINE) 0.1-0.2 mL INTRADERMAL PRN lactated ringers iv infusion 30 mL/hr INTRAVENOUS CONTINUOUS REVIEW OF SYSTEMS CONSTITUTIONAL: No weight loss, malaise or fevers RESPIRATORY: Negative for cough, hemoptysis, wheezing, COPD, dyspnea or shortness of breath CARDIOVASCULAR: Negative for chest pain or palpitations GI: See HPI Physical Exam: BP 142/75 Temp 36.8 C (98.2 F) (Temporal) Resp 16 Ht 177.8 cm (5' 10) Wt 92.5 kg (204 lb) SpO2 100% BMI 29.27 kg/m Gen: AAOx3, NAD Head: normocephalic, atraumatic Skin: No jaundice Eyes: No scleral icterus Heart: RRR, no murmurs Lungs: CTAB Abd: soft, nontender, nondistended, bowel sounds are positive, no mass appreciated Psych: mood and insight appropriate ASSESSMENT Problem List Items Addressed This Visit None Visit Diagnoses History of colonic polyps Relevant Orders COLONOSCOPY SCREENING PLAN Proceed with colonoscopy. [facility] Work Phone: 05-29-2024 History and physical note REASON FOR VISIT: hx of polyps HPI: Tere Barone is a 73 year old male who presents for surveillance colonoscopy. No current GI complaints. ALLERGIES No Known Allergies PAST MEDICAL HISTORY Diagnosis Date Alcohol abuse 04/18/2022 Carpal tunnel syndrome of left wrist Carpal tunnel syndrome on right COVID-19 08/03/2021 Dependence on nicotine from cigarettes Elevated troponin 07/23/2021 Essential hypertension 08/03/2021 Frequent falls 08/03/2021 Mixed hyperlipidemia Multiple falls 08/04/2021 Nicotine use disorder, F17.2 Osteoarthritis Pseudophakia of left eye 09/2012 Sleep apnea Spinal stenosis Syncope 07/23/2021 Thoracic or lumbosacral neuritis or radiculitis, unspecified Type 2 diabetes mellitus with hyperglycemia (HCC) 08/03/2021 PAST SURGICAL HISTORY Procedure Laterality Date ARTHRD ANT INTERBODY MIN DSC LUMBAR 1989 NEUROPLASTY &/TRANSPOS MEDIAN NRV CARPAL TUNNE 2009 Carpal tunnel decomp Lt. XCAPSL CTRC RMVL INSJ IO LENS PROSTH W/O ECP 09/2012 Cataract Extraction with PC IOL left FAMILY HISTORY Problem Relation Age of Onset Diabetes Mother Heart Mother Hypertension Mother Stroke Mother Cataract Mother Glaucoma Mother Macular Degen Father Cancer Sister Parkinsonism Sister Asthma Sister Headache Brother Cancer Brother Heart Attack Brother Social History Tobacco Use Smoking status: Every Day Current packs/day: 0.25 Average packs/day: 0.3 packs/day for 20.0 years (5.0 ttl pk-yrs) Types: Cigarettes Smokeless tobacco: Never Vaping Use Vaping status: Never Used Substance Use Topics Alcohol use: Not Currently Alcohol/week: 24.0 standard drinks of alcohol Types: 24 Cans of Beer (12oz) per week Drug use: No Current Outpatient Medications Medication Sig peg 3350-Electrolytes (GOLYTELY) 236-22.74-6.74 -5.86 gram suspension Refer to printed patient instructions that will be mailed to you. peg 3350-Electrolytes (GOLYTELY) 236-22.74-6.74 -5.86 gram suspension Refer to printed patient instructions that will be mailed to you. atorvastatin (LIPITOR) 80 mg tablet Take 1 tablet by mouth daily at bedtime. metoprolol succinate ER (TOPROL XL) 25 mg 24 hr tablet Take 1 tablet by mouth once daily. semaglutide (RYBELSUS) 14 mg tablet Take 1 tablet (14 mg) by mouth daily before breakfast. metFORMIN ER (GLUCOPHAGE XR) 500 mg 24 hr tablet Take 2 tablets by mouth two times a day with meals. aspirin 81 mg chewable tablet CHEW AND SWALLOW 1 (ONE) TABLET EVERY DAY cyanocobalamin (VITAMIN B-12) 1,000 mcg tab Take 1 tablet by mouth once daily. thiamine (VITAMIN B1) 100 mg tablet 100 mg once daily. Cholecalciferol, Vitamin D3, 25 mcg (1,000 unit) cap Take 1,000 Units by mouth once daily. memantine (NAMENDA) 10 mg tablet Take 1 tablet by mouth two times a day. Patient should start on November 23, 2023. Fluorouracil (EFUDEX) 5 % cream Apply 2x daily to SCCis of right dorsal hand for 6 weeks. May stop for few days or decrease to once daily for discomfort. Blood-Glucose Meter To check blood sugar once a day. E11.9 any brand covered by insurance is ok Lancets (ONETOUCH ULTRASOFT LANCETS) To check blood sugar once a day. E11.9 any brand covered by insurance is ok blood sugar diagnostic (BLOOD GLUCOSE TEST) test strip To check blood sugar once a day. E11.9 any brand covered by insurance is ok losartan (COZAAR) 25 mg tablet Take 1 tablet by mouth once daily. B Complex-Folic Acid (B COMPLEX 1, WITH FOLIC ACID,) 0.4 mg tab Take 1 tablet by mouth once daily. acetaminophen (TYLENOL) 325 mg tablet Take 1-2 tablets by mouth every 6 hours as needed for pain or fever (specify). Current Facility-Administered Medications Medication Dose Route Frequency lidocaine (PF) 10 mg/mL (1 %) 1-2 mg injection (XYLOCAINE) 0.1-0.2 mL INTRADERMAL PRN lactated ringers iv infusion 30 mL/hr INTRAVENOUS CONTINUOUS REVIEW OF SYSTEMS CONSTITUTIONAL: No weight loss, malaise or fevers RESPIRATORY: Negative for cough, hemoptysis, wheezing, COPD, dyspnea or shortness of breath CARDIOVASCULAR: Negative for chest pain or palpitations GI: See HPI Physical Exam: BP 142/75 Temp 36.8 C (98.2 F) (Temporal) Resp 16 Ht 177.8 cm (5' 10) Wt 92.5 kg (204 lb) SpO2 100% BMI 29.27 kg/m Gen: AAOx3, NAD Head: normocephalic, atraumatic Skin: No jaundice Eyes: No scleral icterus Heart: RRR, no murmurs Lungs: CTAB Abd: soft, nontender, nondistended, bowel sounds are positive, no mass appreciated Psych: mood and insight appropriate ASSESSMENT Problem List Items Addressed This Visit None Visit Diagnoses History of colonic polyps Relevant Orders COLONOSCOPY SCREENING PLAN Proceed with colonoscopy. documented in this encounter [facility] 05-12-2024 Note [facility] 05-12-2024 History of Present illness Narrative POPULATION HEALTH NAVIGATION OUTREACH Action/FYI Topic Due (Y or N) Comments Medicare Wellness Y FLIPPED 10/21/24 TO ACCOMMODATE AWV PCP Follow up N Mammogram N Colorectal Cancer Screening Y 05/29/24 A1C N Controlling BP Y 2. Essential hypertension - 04/23/24 ICD9: 401.9, ICD10: I10 - Controlled - Continue current medications - Recommend home blood pressure monitoring, to bring results to next visit - Encouraged sodium restriction, DASH or Mediterranean diet - Recommend regular aerobic exercise Dilated Retinal Exam (SANDHYA) Y KED (UACR and eGFR) N HCC N Flu Vaccine Y Care Everywhere Reviewed DONE MyChart Activation PENDING Updated Appointment Note Y Vm FULL COULDN'T LM MYCHART NOT ACTIVE SENDING LETTER Reason for Outreach Care Gap/HCC or Scheduling Wellness Visits Care Gaps due: Diabetic Eye Exam Flu Vaccine Patient Contacted: Unable or unnecessary to reach patient: Unable to leave message Letter mailed Updated appointment notes Flipped existing appointment Navigation Signature: Ritika Ring MA May 12, 2024 12:14 PM documented in this encounter [facility] 05-07-2024 Instructions Bruno Villatoro APRN.RHONDA - 05/07/2024 6:14 PM EST ?Keep the area clean and dry. Do not squeeze, scratch, or rub it. You can gently wash the area with soap and water or take a shower. Pat the area dry with a clean towel. ?Wash your hands before and after you touch the infected area. When should I call the doctor? Call for advice if: ?You have a fever of 101 F (38.4 C) or higher, or chills. ?The area becomes more red, swollen, or painful, or the redness or swelling spreads up your leg or arm or to a larger area. ?The infected area is not better after 3 days of taking antibiotics. documented in this encounter [facility] 05-07-2024 Note [facility] 05-07-2024 History of Present illness Narrative Images from the original note were not included. Subjective 2-3 days ago dog scratch, top of rt hand. Has diabetes and wants to make sure it looks ok. The history is provided by the patient. Trauma This is a new problem. The current episode started in the past 7 days. The problem occurs constantly. The problem has been unchanged. Pertinent negatives include no chest pain, chills, diaphoresis or fever. Review of Systems Constitutional: Negative for chills, diaphoresis and fever. Respiratory: Negative for chest tightness and shortness of breath. Cardiovascular: Negative for chest pain. Skin: Positive for wound. peg 3350-Electrolytes (GOLYTELY) 236-22.74-6.74 -5.86 gram suspension Refer to printed patient instructions that will be mailed to you. peg 3350-Electrolytes (GOLYTELY) 236-22.74-6.74 -5.86 gram suspension Refer to printed patient instructions that will be mailed to you. memantine (NAMENDA) 10 mg tablet Take 1 tablet by mouth two times a day. Patient should start on November 23, 2023. Fluorouracil (EFUDEX) 5 % cream Apply 2x daily to SCCis of right dorsal hand for 6 weeks. May stop for few days or decrease to once daily for discomfort. Blood-Glucose Meter To check blood sugar once a day. E11.9 any brand covered by insurance is ok Lancets (ONETOUCH ULTRASOFT LANCETS) To check blood sugar once a day. E11.9 any brand covered by insurance is ok blood sugar diagnostic (BLOOD GLUCOSE TEST) test strip To check blood sugar once a day. E11.9 any brand covered by insurance is ok atorvastatin (LIPITOR) 80 mg tablet Take 1 tablet by mouth daily at bedtime. metoprolol succinate ER (TOPROL XL) 25 mg 24 hr tablet Take 1 tablet by mouth once daily. semaglutide (RYBELSUS) 14 mg tablet Take 1 tablet (14 mg) by mouth daily before breakfast. metFORMIN ER (GLUCOPHAGE XR) 500 mg 24 hr tablet Take 2 tablets by mouth two times a day with meals. losartan (COZAAR) 25 mg tablet Take 1 tablet by mouth once daily. aspirin 81 mg chewable tablet CHEW AND SWALLOW 1 (ONE) TABLET EVERY DAY cyanocobalamin (VITAMIN B-12) 1,000 mcg tab Take 1 tablet by mouth once daily. B Complex-Folic Acid (B COMPLEX 1, WITH FOLIC ACID,) 0.4 mg tab Take 1 tablet by mouth once daily. thiamine (VITAMIN B1) 100 mg tablet 100 mg once daily. Cholecalciferol, Vitamin D3, 25 mcg (1,000 unit) cap Take 1,000 Units by mouth once daily. acetaminophen (TYLENOL) 325 mg tablet Take 1-2 tablets by mouth every 6 hours as needed for pain or fever (specify). 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 Hypertension S/P Lumbar Fusion Spondylolisthesis of Lumbar Region Chronic Bilateral Low Back Pain Without Sciatica Combined Forms of Age-Related Cataract of Right Eye Ns (Nuclear Sclerosis), Right Posterior Subcapsular Polar Age-Related Cataract of Right Eye Tobacco Use Disorder Obesity, Class I, Bmi 30-34.9 Essential Hypertension Mixed Hyperlipidemia Granular Casts 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 Cardiomyopathy, Ischemic Carotid Stenosis, Asymptomatic, Bilateral Alcohol Abuse Sensorineural Hearing Loss, Bilateral Type 2 Diabetes Mellitus Without Complication, Without Long-Term Current Use of Insulin (Hcc) Screening for Colon Cancer Dementia With Behavioral Disturbance (Hcc) 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 Ascending Aorta Dilatation (Hcc) Physical Exam Vitals reviewed. Constitutional: Appearance: Normal appearance. Cardiovascular: Rate and Rhythm: Normal rate and regular rhythm. Heart sounds: Normal heart sounds, S1 normal and S2 normal. Pulmonary: Effort: Pulmonary effort is normal. Breath sounds: Normal breath sounds and air entry. Skin: General: Skin is warm. Capillary Refill: Capillary refill takes less than 2 seconds. Comments: Skin tear about 3cm x 2cm to the posterior hand. Wound bed erythematous. No surrounding erythema or swelling. No drainage. Neurological: Mental Status: He is alert. Psychiatric: Behavior: Behavior is cooperative. BP 132/81 Pulse 78 Temp 36.6 C (97.8 F) (Left Tympanic) Resp 16 Wt 92.6 kg (204 lb 2.3 oz) SpO2 99% BMI 29.29 kg/m2 ASSESSMENT/PLAN: Encounter Diagnosis ICD-10-CM 1. Skin tear of left hand without complication, initial encounter S61.412A - See patient instructions for further recommendations. - Pt education along with discharge instructions given to pt - Discussed Red Flag signs and when to go to ER. - Pt agreeable with plan and verbalizes understanding. - Follow up with PCP if symptoms worsen or do not improve in the next 2-3 days. Medical Decision Making: Problems: Low: Acute, uncomplicated illness or injury Risk: Low: Low risk from testing/treatment Medical Decision Making Level: 3 - Low Bruno Villatoro APRN.[employer] documented in this encounter [facility] 05-07-2024 Telephone encounter Note Attempted to call patient, no answer. Left voicemail to call office back in regards to message below. Letter mailed. Please update patients phone number as its his ex-, the only number listed. [facility] 05-07-2024 Miscellaneous Notes Attempted to call patient, no answer. Left voicemail to call office back in regards to message below. Letter mailed. Please update patients phone number as its his ex-, the only number listed. Attempted to call patient, no answer. Left voicemail to call office back in regards to message below. Attempted to call patient, no answer. Left voicemail to call office back in regards to message below. ----- Message from Samm Kc DO sent at 04/28/2024 7:14 PM EST ----- Please call the patient and let them know their hemoglobin is slightly low but otherwise the labs are unremarkable. Diabetes is under control . A1c 5.7% . The plan is to monitor his labs regularly. Thank you. Samm Kc DO documented in this encounter [facility] 05-05-2024 Telephone encounter Note Ideally 2 day (2 kits or 1.5-2 gallons) prep over 1.5-2 days or as much of this as possible to have clear liquid output from below. Ordered. [facility] 05-05-2024 Miscellaneous Notes Ideally 2 day (2 kits or 1.5-2 gallons) prep over 1.5-2 days or as much of this as possible to have clear liquid output from below. Ordered. I will defer the prep question below to Dr. Bender as she is the one who recommended it. Dr. Bender, please advise. Thank you, Fannie Sandoval, MY One golytely kit over 2 days, or 2 kits? Per colonoscopy report 05/02/[address] Bender: Repeat colonoscopy at next available appointment (within 2 months) because the bowel preparation was poor with 2 day golytely prep with MAC and hold oral semaglutide 2 days prior to procedure. Dr. Corado, you placed original colonoscopy order. Please review and sign off if you agree. Schedulers, please schedule colonoscopy as indicated with prep instructions above. Thank you, Fannie Sandoval RN Pts Ex spouse called to reschedule COLO for pt. She stated he never had the COLO on 05/02. In pts past tab it says pt did have COLO. Please advise and place new orders. Thank you documented in this encounter [facility] 05-05-2024 Telephone encounter Note I will defer the prep question below to Dr. Bender as she is the one who recommended it. Dr. Bender, please advise. Thank you, Fannie Sandoval RN [facility] 05-05-2024 Telephone encounter Note One golytely kit over 2 days, or 2 kits? [facility] 05-05-2024 Telephone encounter Note Per colonoscopy report 05/02/[address] Bender: Repeat colonoscopy at next available appointment (within 2 months) because the bowel preparation was poor with 2 day golytely prep with MAC and hold oral semaglutide 2 days prior to procedure. Dr. Corado, you placed original colonoscopy order. Please review and sign off if you agree. Schedulers, please schedule colonoscopy as indicated with prep instructions above. Thank you, Fannie Sandoval RN [facility] 05-05-2024 Telephone encounter Note Pts Ex spouse called to reschedule COLO for pt. She stated he never had the COLO on 05/02. In pts past tab it says pt did have COLO. Please advise and place new orders. Thank you [facility] 05-02-2024 Telephone encounter Note Attempted to call patient, no answer. Left voicemail to call office back in regards to message below. [facility] 05-02-2024 Nurse Note POST OP LEARNING RESPONSE INSTRUCTION PROVIDED TO: Patient METHOD OF INSTRUCTION: Individual instruction Written instruction/Handouts Verbal instruction PATIENT / FAMILY RESPONSE: Information received as demonstrated by interest and questions FOLLOW-UP PLAN: Patient instructed to call with any further issues SUPPLEMENTAL MATERIAL: None REFERRAL (RECOMMENDATION): None Two day prep instructions reviewed with patient and spouse, printed instructions given, verbalized understanding. Electronically Signed By: Yuliya Bassett RN In Department: AMBULATORY SURGERY [facility] 05-02-2024 Nurse Note POST OP LEARNING RESPONSE INSTRUCTION PROVIDED TO: Patient METHOD OF INSTRUCTION: Individual instruction Written instruction/Handouts Verbal instruction PATIENT / FAMILY RESPONSE: Information received as demonstrated by interest and questions FOLLOW-UP PLAN: Patient instructed to call with any further issues SUPPLEMENTAL MATERIAL: None REFERRAL (RECOMMENDATION): None Two day prep instructions reviewed with patient and spouse, printed instructions given, verbalized understanding. Electronically Signed By: Yuliya Bassett RN In Department: AMBULATORY SURGERY PRE OP LEARNING ASSESSMENT PROCEDURE/SURGERY: GI PROCEDURES: Colonoscopy READINESS TO LEARN COGNITIVE ABILITY: Alert and oriented MOTIVATION TO LEARN: Eager Interested FAMILY SUPPORT: High - Very involved in pt care PATIENT LEARNS BEST BY: Individual Instruction Verbal Instruction FACTORS AFFECTING LEARNING: None PHYSICAL LIMITATIONS AFFECTING LEARNING: None Electronically Signed By: Taty Macias RN In Department: AMBULATORY SURGERY documented in this encounter [facility] 05-02-2024 Nurse Note PRE OP LEARNING ASSESSMENT PROCEDURE/SURGERY: GI PROCEDURES: Colonoscopy READINESS TO LEARN COGNITIVE ABILITY: Alert and oriented MOTIVATION TO LEARN: Eager Interested FAMILY SUPPORT: High - Very involved in pt care PATIENT LEARNS BEST BY: Individual Instruction Verbal Instruction FACTORS AFFECTING LEARNING: None PHYSICAL LIMITATIONS AFFECTING LEARNING: None Electronically Signed By: Taty Macias RN In Department: AMBULATORY SURGERY [facility] 04-30-2024 Telephone encounter Note Attempted to call patient, no answer. Left voicemail to call office back in regards to message below. [facility] 04-29-2024 Telephone encounter Note ----- Message from Samm Kc DO sent at 04/28/2024 7:14 PM EST ----- Please call the patient and let them know their hemoglobin is slightly low but otherwise the labs are unremarkable. Diabetes is under control . A1c 5.7% . The plan is to monitor his labs regularly. Thank you. Samm Kc DO [facility] 04-25-2024 Telephone encounter Note Below noted. No further nursing action required at this time [facility] 04-25-2024 Miscellaneous Notes Below noted. No further nursing action required at this time Patient notified and verbalized with understanding. LVM for patient to return call. Patient no active on My chart. PSS or MA/RN- Please relay message to patient when they call back. Or, if preferred, please ask Patient when a good time to reach them would be and clinical can relay the message. Thank you ----- Message from Sunshine Duckworth APRN.[employer] sent at 04/24/2024 3:04 PM EST ----- Reviewed echocardiogram results essentially unchanged from prior 2 years ago pumping function of the heart to 41% was previously 44% essentially unchanged no significant valvular disease dilated aorta unchanged at 4.5 cm Sunshine Duckworth APRN.[employer] documented in this encounter [facility] 04-24-2024 Telephone encounter Note Patient notified and verbalized with understanding. [facility] 04-24-2024 Telephone encounter Note LVM for patient to return call. Patient no active on My chart. PSS or MA/RN- Please relay message to patient when they call back. Or, if preferred, please ask Patient when a good time to reach them would be and clinical can relay the message. Thank you [facility] 04-24-2024 Telephone encounter Note ----- Message from Sunshine Duckworth APRN.[employer] sent at 04/24/2024 3:04 PM EST ----- Reviewed echocardiogram results essentially unchanged from prior 2 years ago pumping function of the heart to 41% was previously 44% essentially unchanged no significant valvular disease dilated aorta unchanged at 4.5 cm Sunshine Duckworth APRN.[employer]KER [facility] 04-24-2024 Telephone encounter Note l Ieft a message to remind patient of appointment date and to let them know the nurse will call the day before to confirm appointment time also ask him to not to take the [place] the day of procedure. [facility] 04-24-2024 Miscellaneous Notes l Ieft a message to remind patient of appointment date and to let them know the nurse will call the day before to confirm appointment time also ask him to not to take the [place] the day of procedure. documented in this encounter [facility] 04-24-2024 Note [facility] 04-24-2024 History of Present illness Narrative Primary Care Social Work Provider Action / FYI PCP Action None Date of Service: 04/24/2024 Patient identified by name and date of : Yes- via Telephone Referral Source: Referral Patient Outreach: Initial Mode of Outreach: Phone Call Response Time: Contact made Patient Identified Needs: Care Transition Resources: Change in level of care needed Assessment Payor Social supports Patient functional ability Cognitive status Existing community support Living situation PCSW Action Taken Provide Patient Resources Education Supportive listening Is the patient ready for discharge? Yes Social Barrier resolution or patient discharge reason: Patient self-managing with resources given Narrative: Order received, chart reviewed. PCSW called pt's spouse, Bg, and introduced self. Pt's spouse stated we aren't sure if he has Alzheimer's and became tearful stating that pt does not want to talk or shower and has recently lost weight. Pt's spouse said we aren't sure if they want to pursue Assisted Living/Alf options for pt. Pt's spouse said she does not want to talk today. PCSW offered to send pt's spouse resources for her to look over. Pt's spouse was open to PCSW sending her mail with resources including [facility] (assistance with long-term care options, meals, transportation), list of home health aide agencies and explained there would be a cost for services and is not covered by Medicare unless pt is getting skilled therapy services, and resources for finding long-term care options in [facility]. No other PCSW needs at this time. Pt's spouse said she appreciated the phone call and will call back if she has questions. Interventions: Advocacy Assessment Education Empowering/Coaching Goal Setting CK Robert April 24, 2024 11:09 AM documented in this encounter [facility] 04-23-2024 History of Present illness Narrative CC: follow up S: 73 year old male with history below presents for follow up Here with his Patient is watching old movies all day long She states he does not talk much anymore Hemoglobin A1C (%) Date Value 01/04/2024 6.3 06/21/2023 6.2 07/24/2021 9.7 03/21/2021 7.3 Hemoglobin A1C (POCT) (%) Date Value 08/02/2022 7.5 04/04/2022 7.5 Last 3 Encounter BP Readings: Date: BP: 04/23/2024 112/60 03/19/2024 120/60 03/17/2024 132/67 Down 8# since March Patient's appetite has been good thinks the patient is depressed She says it's hard for her to tell - his questionnaires are inaccurate Patient walks slowly because he has a back issue Patient is not showering himself or wearing deodorant Sleeping all day if he is not watching movies Patient is tolerating his meds well Has been seen for and Dx with Dementia- would like a second opinion. When asked the patient states I'm not depressed Latest Ref Rng 06/21/2023 08/09/2023 01/04/2024 Protein, Total 6.3 - 8.0 g/dL 6.8 Albumin 3.9 - 4.9 g/dL 4.3 Calcium 8.5 - 10.2 mg/dL 10.0 Bilirubin, Total 0.2 - 1.3 mg/dL 0.4 Alkaline Phosphatase 38 - 113 U/L 74 AST 14 - 40 U/L 27 ALT 10 - 54 U/L 30 Glucose 74 - 99 mg/dL 121 (H) BUN 9 - 24 mg/dL 14 Creatinine 0.73 - 1.22 mg/dL 0.79 Sodium 136 - 144 mmol/L 144 Potassium 3.7 - 5.1 mmol/L 4.3 Chloride 97 - 105 mmol/L 106 (H) CO2 22 - 30 mmol/L 24 Anion Gap 9 - 18 mmol/L 14 eGFR >=60 mL/min/1.73m 94 WBC 3.70 - 11.00 k/uL 9.42 RBC 4.20 - 6.00 m/uL 4.55 Hemoglobin 13.0 - 17.0 g/dL 14.0 Hematocrit 39.0 - 51.0 % 42.2 MCV 80.0 - 100.0 fL 92.7 MCH 26.0 - 34.0 pg 30.8 MCHC 30.5 - 36.0 g/dL 33.2 RDW-CV 11.5 - 15.0 % 12.9 Platelet Count 150 - 400 k/uL 235 MPV 9.0 - 12.7 fL 10.2 Absolute nRBC <0.01 k/uL <0.01 Cholesterol, Total <200 mg/dL 91 Triglyceride <150 mg/dL 60 HDL Cholesterol >39 mg/dL 42 Non HDL Cholesterol <130 mg/dL 49 Fasting Time hrs 10 VLDL Cholesterol <30 mg/dL 12 TC:HDL Ratio <5.10 2.17 LDL Cholesterol <100 mg/dL 37 LDL:HDL Ratio <2.54 0.88 Creatinine, Ur Random (UCRR) 20.0 - 300.0 mg/dL 191.7 Albumin, Urine Random mg/L 26.9 Albumin/Creat Ratio <30 mg/g 14 Hemoglobin A1C 4.3 - 5.6 % 6.2 (H) 6.3 (H) Estimated Average Glucose mg/dL 131 134 TSH 0.270 - 4.200 mIU/L 0.611 Glucose, Point of Care 74 - 99 mg/dL 136 ! Legend: (H) High ! Abnormal PHQ-9 Score: 1 (04/23/2024 1:48 PM) (0-4) minimal depression, (5-9) mild depression, (10-14) moderate depression, (15-19) moderately severe depression, (20-27) severe depression GABBIE-7 Total Score: 0 (04/23/2024 1:50 PM) (0-4) minimal anxiety, (5-9) mild anxiety, (10-14) moderate anxiety, (15-21) severe anxiety PAST MEDICAL HISTORY Diagnosis Date Alcohol abuse 04/18/2022 Carpal tunnel syndrome of left wrist Carpal tunnel syndrome on right COVID-19 08/03/2021 Dependence on nicotine from cigarettes Elevated troponin 07/23/2021 Essential hypertension 08/03/2021 Frequent falls 08/03/2021 Mixed hyperlipidemia Multiple falls 08/04/2021 Nicotine use disorder, F17.2 Osteoarthritis Pseudophakia of left eye 09/2012 Sleep apnea Spinal stenosis Syncope 07/23/2021 Thoracic or lumbosacral neuritis or radiculitis, unspecified Type 2 diabetes mellitus with hyperglycemia (HCC) 08/03/2021 PAST SURGICAL HISTORY Procedure Laterality Date ARTHRD ANT INTERBODY MIN DSC LUMBAR 1988 NEUROPLASTY &/TRANSPOS MEDIAN NRV CARPAL TUNNE 2009 Carpal tunnel decomp Lt. XCAPSL CTRC RMVL INSJ IO LENS PROSTH W/O ECP 09/2012 Cataract Extraction with PC IOL left Current Outpatient Medications Medication Sig Dispense Refill memantine (NAMENDA) 10 mg tablet Take 1 tablet by mouth two times a day. Patient should start on November 23, 2023. 180 tablet 1 Fluorouracil (EFUDEX) 5 % cream Apply 2x daily to SCCis of right dorsal hand for 6 weeks. May stop for few days or decrease to once daily for discomfort. 40 g 0 Blood-Glucose Meter To check blood sugar once a day. E11.9 any brand covered by insurance is ok 1 Each 0 Lancets (ONETOUCH ULTRASOFT LANCETS) To check blood sugar once a day. E11.9 any brand covered by insurance is ok 100 Each 1 blood sugar diagnostic (BLOOD GLUCOSE TEST) test strip To check blood sugar once a day. E11.9 any brand covered by insurance is ok 100 Each 1 atorvastatin (LIPITOR) 80 mg tablet Take 1 tablet by mouth daily at bedtime. 90 tablet 3 metoprolol succinate ER (TOPROL XL) 25 mg 24 hr tablet Take 1 tablet by mouth once daily. 90 tablet 3 semaglutide (RYBELSUS) 14 mg tablet Take 1 tablet (14 mg) by mouth daily before breakfast. 90 tablet 3 metFORMIN ER (GLUCOPHAGE XR) 500 mg 24 hr tablet Take 2 tablets by mouth two times a day with meals. 360 tablet 3 losartan (COZAAR) 25 mg tablet Take 1 tablet by mouth once daily. 90 tablet 3 aspirin 81 mg chewable tablet CHEW AND SWALLOW 1 (ONE) TABLET EVERY DAY 30 tablet 2 cyanocobalamin (VITAMIN B-12) 1,000 mcg tab Take 1 tablet by mouth once daily. B Complex-Folic Acid (B COMPLEX 1, WITH FOLIC ACID,) 0.4 mg tab Take 1 tablet by mouth once daily. 30 tablet 5 thiamine (VITAMIN B1) 100 mg tablet 100 mg once daily. Cholecalciferol, Vitamin D3, 25 mcg (1,000 unit) cap Take 1,000 Units by mouth once daily. acetaminophen (TYLENOL) 325 mg tablet Take 1-2 tablets by mouth every 6 hours as needed for pain or fever (specify). No current facility-administered medications for this visit. SOCIAL (pertinent): Social History Tobacco Use Smoking status: Every Day Current packs/day: 0.25 Average packs/day: 0.3 packs/day for 20.0 years (5.0 ttl pk-yrs) Types: Cigarettes Smokeless tobacco: Never Vaping Use Vaping status: Never Used Substance Use Topics Alcohol use: Not Currently Alcohol/week: 24.0 standard drinks of alcohol Types: 24 Cans of Beer (12oz) per week Drug use: No FAMILY (pertinent): FAMILY HISTORY Problem Relation Age of Onset Diabetes Mother Heart Mother Hypertension Mother Stroke Mother Cataract Mother Glaucoma Mother Macular Degen Father Cancer Sister Parkinsonism Sister Asthma Sister Headache Brother Cancer Brother Heart Attack Brother ROS: See HPI O: PHYSICAL EXAM: BP 112/60 Pulse 77 Wt 88.9 kg (196 lb) SpO2 99% BMI 27.84 kg/m Gen: Patient is pleasant, alert, NAD, well appearing, responds to questions with brief sentences Head: Normocephalic, atraumatic CV: Regular rate and rhythm, normal S1/S2, no murmurs, rubs Pulm: Clear to auscultation bilaterally, no wheezes, crackles, or rhonchi Neuro: EOMI, no involuntary movements. Extrem: No cyanosis, clubbing, or edema. Distal pulses equal and palpable b/l Skin: Warm, dry, no visible rashes A/P: 73 year old male with ASSESSMENT/PLAN: 1. Type 2 diabetes mellitus without complication, without long-term current use of insulin (HCC) - ICD9: 250.00, ICD10: E11.9 (primary diagnosis) - Controlled - Continue current medications - Counseled on healthy diet and regular exercise - HEMOGLOBIN A1C - COMPREHENSIVE METABOLIC PANEL - COMPLETE BLOOD COUNT - THYROID STIMULATING HORMONE - LIPID PANEL BASIC - ALBUMIN/CREATININE RATIO, URINE - PRIMARY CARE SOCIAL WORK CONSULT 2. Essential hypertension - ICD9: 401.9, ICD10: I10 - Controlled - Continue current medications - Recommend home blood pressure monitoring, to bring results to next visit - Encouraged sodium restriction, DASH or Mediterranean diet - Recommend regular aerobic exercise - HEMOGLOBIN A1C - COMPREHENSIVE METABOLIC PANEL - COMPLETE BLOOD COUNT - THYROID STIMULATING HORMONE - LIPID PANEL BASIC - ALBUMIN/CREATININE RATIO, URINE 3. Mixed hyperlipidemia - ICD9: 272.2, ICD10: E78.2 - Controlled - Continue current medications - Counseled on healthy diet and regular exercise - HEMOGLOBIN A1C - COMPREHENSIVE METABOLIC PANEL - COMPLETE BLOOD COUNT - THYROID STIMULATING HORMONE - LIPID PANEL BASIC - ALBUMIN/CREATININE RATIO, URINE 4. Dementia with behavioral disturbance (HCC) - ICD9: 294.21, ICD10: F03.918 Justin's would like patient evaluated at [facility] for a second opinion. She is concerned the patient has Alzheimer's dementia as his cognitive decline is apparent. HYPERBARIC WELDER DIVER was also contacted to discuss placement options if they decide to move forward with that. - CONSULT TO NEUROLOGY - PRIMARY CARE SOCIAL WORK CONSULT 5. Screening for prostate cancer - ICD9: V76.44, ICD10: Z12.5 - PSA/PROSTATE SPECIFIC ANTIGEN SCREENING 6. Decreased activities of daily living (ADL) - ICD9: V49.89, ICD10: Z78.9 HYPERBARIC WELDER DIVER consult placed for decreased ADLs to discuss SNF/assisted living options for the patient. - PRIMARY CARE SOCIAL WORK CONSULT Samm Kc DO April 23, 2024 1:38 PM Follow up in 6 months documented in this encounter [facility] 03-19-2024 History of Present illness Narrative Chief Complaint: Patient presents with: Cardiology Follow Up History of Present Illness: Tere Barone is a 73 year old male with history of LV systolic dysfunction, remote alcohol use quit in 2021, tobacco use, hypertension hyperlipidemia diabetes back pain dilated aorta mild carotid disease Last seen and evaluated by Dr. Salas in June 2023 presents today in follow-up He has no complaints of chest pain, palpitations tach palpitations syncope nor near syncope he has no orthopnea PND lower extremity edema shortness of breath or change in functional status. PAST MEDICAL HISTORY Diagnosis Date Alcohol abuse 04/18/2022 Carpal tunnel syndrome of left wrist Carpal tunnel syndrome on right COVID-19 08/03/2021 Dependence on nicotine from cigarettes Elevated troponin 07/23/2021 Essential hypertension 08/03/2021 Frequent falls 08/03/2021 Mixed hyperlipidemia Multiple falls 08/04/2021 Nicotine use disorder, F17.2 Osteoarthritis Pseudophakia of left eye 09/2012 Sleep apnea Spinal stenosis Syncope 07/23/2021 Thoracic or lumbosacral neuritis or radiculitis, unspecified Type 2 diabetes mellitus with hyperglycemia (HCC) 08/03/2021 PAST SURGICAL HISTORY Procedure Laterality Date ARTHRD ANT INTERBODY MIN DSC LUMBAR 1989 NEUROPLASTY &/TRANSPOS MEDIAN NRV CARPAL TUNNE 2009 Carpal tunnel decomp Lt. XCAPSL CTRC RMVL INSJ IO LENS PROSTH W/O ECP 09/2012 Cataract Extraction with PC IOL left FAMILY HISTORY Problem Relation Age of Onset Diabetes Mother Heart Mother Hypertension Mother Stroke Mother Cataract Mother Glaucoma Mother Macular Degen Father Cancer Sister Parkinsonism Sister Asthma Sister Headache Brother Cancer Brother Heart Attack Brother Social History Tobacco Use Smoking status: Every Day Current packs/day: 0.25 Average packs/day: 0.3 packs/day for 20.0 years (5.0 ttl pk-yrs) Types: Cigarettes Smokeless tobacco: Never Vaping Use Vaping status: Never Used Substance Use Topics Alcohol use: Not Currently Alcohol/week: 24.0 standard drinks of alcohol Types: 24 Cans of Beer (12oz) per week Drug use: No Current Outpatient Medications Medication Sig memantine (NAMENDA) 10 mg tablet Take 1 tablet by mouth two times a day. Patient should start on November 23, 2023. Fluorouracil (EFUDEX) 5 % cream Apply 2x daily to SCCis of right dorsal hand for 6 weeks. May stop for few days or decrease to once daily for discomfort. Blood-Glucose Meter To check blood sugar once a day. E11.9 any brand covered by insurance is ok Lancets (ONETOUCH ULTRASOFT LANCETS) To check blood sugar once a day. E11.9 any brand covered by insurance is ok blood sugar diagnostic (BLOOD GLUCOSE TEST) test strip To check blood sugar once a day. E11.9 any brand covered by insurance is ok atorvastatin (LIPITOR) 80 mg tablet Take 1 tablet by mouth daily at bedtime. metoprolol succinate ER (TOPROL XL) 25 mg 24 hr tablet Take 1 tablet by mouth once daily. semaglutide (RYBELSUS) 14 mg tablet Take 1 tablet (14 mg) by mouth daily before breakfast. metFORMIN ER (GLUCOPHAGE XR) 500 mg 24 hr tablet Take 2 tablets by mouth two times a day with meals. losartan (COZAAR) 25 mg tablet Take 1 tablet by mouth once daily. aspirin 81 mg chewable tablet CHEW AND SWALLOW 1 (ONE) TABLET EVERY DAY cyanocobalamin (VITAMIN B-12) 1,000 mcg tab Take 1 tablet by mouth once daily. B Complex-Folic Acid (B COMPLEX 1, WITH FOLIC ACID,) 0.4 mg tab Take 1 tablet by mouth once daily. thiamine (VITAMIN B1) 100 mg tablet 100 mg once daily. Cholecalciferol, Vitamin D3, 25 mcg (1,000 unit) cap Take 1,000 Units by mouth once daily. acetaminophen (TYLENOL) 325 mg tablet Take 1-2 tablets by mouth every 6 hours as needed for pain or fever (specify). No current facility-administered medications for this visit. ALLERGIES No Known Allergies Review of Systems: Review of Systems Constitutional: Negative for chills, diaphoresis and fever. HENT: Negative for hearing loss. Eyes: Negative for blurred vision, double vision and photophobia. Respiratory: Negative for cough, hemoptysis, shortness of breath and wheezing. Cardiovascular: Negative for chest pain, palpitations, orthopnea, claudication, leg swelling and PND. Gastrointestinal: Negative for abdominal pain, constipation, diarrhea, heartburn and nausea. Genitourinary: Negative for frequency. Musculoskeletal: Positive for joint pain. Negative for back pain, falls, myalgias and neck pain. Skin: Negative for itching and rash. Neurological: Negative for dizziness, tingling, tremors, weakness and headaches. Endo/Heme/Allergies: Does not bruise/bleed easily. Psychiatric/Behavioral: Negative for depression and memory loss. The patient is not nervous/anxious. Physical Examination: BP 120/60 Pulse 76 Wt 92.9 kg (204 lb 12.9 oz) BMI 29.09 kg/m BMI 29.09 kg/(m^2) Physical Exam Vitals and nursing note reviewed. HENT: Head: Normocephalic. Eyes: Pupils: Pupils are equal, round, and reactive to light. Neck: Thyroid: No thyromegaly. Cardiovascular: Rate and Rhythm: Normal rate and regular rhythm. Heart sounds: Normal heart sounds. Pulmonary: Breath sounds: Normal breath sounds. Abdominal: General: Bowel sounds are normal. Palpations: Abdomen is soft. Musculoskeletal: General: Normal range of motion. Cervical back: Normal range of motion and neck supple. Skin: General: Skin is warm and dry. Neurological: Mental Status: He is alert and oriented to person, place, and time. Psychiatric: Mood and Affect: Mood and affect normal. Cognition and Memory: Memory normal. Judgment: Judgment normal. Cardiac Testing and Procedures: Echocardiogram 08/03/2021-EF 44% no significant valvular disease aorta 4.5 cm Ultrasound of the abdomen 04/16/2022 negative for abdominal aortic ultrasound MRA of the carotid 05/05/2022-right internal carotid artery 30% left internal carotid artery less than 30% Stress testing 09/22/2021-fixed defect with RCA distribution CTA of the neck 07/23/2021-80% right internal carotid artery stenosis less than 30% left internal carotid stenosis aorta 4.1 cm Carotid ultrasound 01/25/2022-moderate right carotid stenosis 10/25/2021-70 to 79% right internal carotid artery stenosis, 1 to 29% left internal carotid artery stenosis 07/23/2021-30 to 49% right carotid stenosis less than 30% left carotid stenosis EKG 03/19/2024 sinus rhythm bundle branch block low voltage Recommendations: 1. Cardiomyopathy-May be alcohol related. Echocardiogram in 2021 EF 44%. Continues with beta-jordan as well as ARB agent no clinical signs of decompensated heart failure. 2 g sodium diet 2. Dilated aorta-echocardiogram in 2021 identified aorta to be 4.5 cm will rescreen Mainstay of care is good blood pressure management 3. Hypertension blood pressure acceptable 4. Diabetes he continues with oral agents last hemoglobin A1c 6.3 5. Dyslipidemia he continues with statin last LDL in the system June 2023 was 37 well within target 6. Carotid disease-continue aspirin statin He will cancel his appointment in [address] Salas and move it out 6 months documented in this encounter [facility] 03-18-2024 Telephone encounter Note The following approved medication requests have been transmitted electronically. Requested Prescriptions Signed Prescriptions Disp Refills memantine (NAMENDA) 10 mg tablet 180 tablet 1 Sig: Take 1 tablet by mouth two times a day. Patient should start on November 23, 2023. Authorizing Provider: SAMMI VELARDE Ordering User: KAMRAN ULLOA PA-C [facility] Work Phone: 03-18-2024 Miscellaneous Notes The following approved medication requests have been transmitted electronically. Requested Prescriptions Signed Prescriptions Disp Refills memantine (NAMENDA) 10 mg tablet 180 tablet 1 Sig: Take 1 tablet by mouth two times a day. Patient should start on November 23, 2023. Authorizing Provider: SAMMI VELARDE Ordering User: KAMRAN ULLOA PA-C documented in this encounter [facility] 03-17-2024 Instructions June Mckeon LPN - 03/17/2024 1:36 PM EDT Pa[facility] [phone] Efudex Information Sheet Apply the cream to the area designated by your provider with gloved hands if possible. If gloves are not available, be certain to wash hands thoroughly after application (as to not distribute the medication elsewhere accidently). The medication is a topical chemotherapy cream. It is designed to attack skin cancer cells and photo damaged (sun damaged) skin. Things to expect following application of Efudex: The area will become red, raw, and potentially scale or scab. This is the expected outcome with use. To alleviate some of the discomfort, you may apply Vaseline or aquaphor to the site 30 minutes after application of the Efudex. This will prevent the area from feeling tight and pulling at the tissue. This will also prevent scabbing to the area, and therefore, alleviate additional discomfort. Avoid sun exposure to the treated areas at all times. Exposure to the sun will cause increased redness, burning, and irritation to the site. Medication should be applied as directed by your provider. You may apply ice packs to the area to assist with any swelling that is the product of Efudex use. If you are not tolerating the medication, you may take a break from application for a few days and apply Vaseline/OTC Hydrocortisone to the site. Please resume the medication to complete the prescribed course. A follow up will be needed, generally 2-4 weeks following the last application of the cream. 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 PE: Gen: alert and oriented x 3, well appearing Examination of skin of right dorsal hand reveals pink smooth plaque consistent with well healed biopsy site with no surrounding rough red papules A/P: 73 year old male with: 1. SCCis of skin of right dorsal hand 2. Actinic keratoses: - discussed treatment options: Mohs, 5-fluorouracil, red light photodynamic therapy - discussed merits and demerits of all options, including need for continual clinical surveillance regardless of treatment option - plan for 5-fluorouracil twice a day x 6-8 weeks - discussed endpoints of treatment: irritation, erythema, ulceration, scabbing / crusting, or bleeding - return to clinic 3 months, allowing for treated site to heal completely The documentation for this note was completed by June Mckeon LPN acting as scribe for Jatin Garrett MD. March 17, 2024 1:35 PM. I agree with the Chief Complaint, ROS, and Past Histories independently gathered by the clinical production support manager and the remaining scribed note accurately describes my personal service to the patient. Jatin Garrett MD documented in this encounter [facility] 03-06-2024 Telephone encounter Note Patient spouse calling in with co chills. took pt temp 98.3. pt denies kamara, runny nose, cough. Pt denies difficulty breathing, wheezing, ear pain, sore throat. Pt denies dysuria. Pt denies n/v/diarrhea. Red flag symptoms provided when to go to er. Offered to transfer pt to scheduling for pcp appt nearby and educated could go to walk in clinic. Nursing Triage assessment completed with protocol recommendations for disposition See HCP(Or PCP triage) within 4 hours Care advice reviewed with understanding. Patient advised to contact office or seek urgent evaluation if symptoms persist or worsen. Vy Bryan RN March 06, 2024 10:24 AM Pt states he will go to express care Reason for Disposition Severe chills (i.e., feeling extremely cold WITH shaking chills) Answer Assessment - Initial Assessment Questions 1. TEMPERATURE: ta 2. ONSET: Now 98.3 3. CHILLS: chills 4. OTHER SYMPTOMS Pt weak 5. CAUSE unsure 6. CONTACTS: Pt denies 7. TREATMENT: nothing 8. IMMUNOCOMPROMISE: Pt denies 9. : na 10. TRAVEL: Pt denies Protocols used: [id number] [facility] 03-06-2024 Miscellaneous Notes Patient spouse calling in with co chills. took pt temp 98.3. pt denies kamara, runny nose, cough. Pt denies difficulty breathing, wheezing, ear pain, sore throat. Pt denies dysuria. Pt denies n/v/diarrhea. Red flag symptoms provided when to go to er. Offered to transfer pt to scheduling for pcp appt nearby and educated could go to walk in clinic. Nursing Triage assessment completed with protocol recommendations for disposition See HCP(Or PCP triage) within 4 hours Care advice reviewed with understanding. Patient advised to contact office or seek urgent evaluation if symptoms persist or worsen. Vy Bryan RN March 06, 2024 10:24 AM Pt states he will go to express care Reason for Disposition Severe chills (i.e., feeling extremely cold WITH shaking chills) Answer Assessment - Initial Assessment Questions 1. TEMPERATURE: ta 2. ONSET: Now 98.3 3. CHILLS: chills 4. OTHER SYMPTOMS Pt weak 5. CAUSE unsure 6. CONTACTS: Pt denies 7. TREATMENT: nothing 8. IMMUNOCOMPROMISE: Pt denies 9. : na 10. TRAVEL: Pt denies Protocols used: [id number] documented in this encounter [facility] 02-08-2024 Instructions Angeles Plata LISW - 02/08/2024 11:52 AM EDT Dear Tere Barone and spouse Bg, It was nice to see you today. We recommend a neuropsychological evaluation which is a formal assessment of mood, personality and memory that is conducted by one of our neuropsychology colleagues: Kiko Jones or Sadia Vogel. A neuropsychological evaluation: * Establishes a baseline so that changes in memory, mood, and personality can be monitored over time to provide for a better approach and treatment. There are two parts of the evaluation: 1) Interview (30 minutes to 1 hour) A neuropsychologist interviews the patient and a family member to obtain information about the patient's medical history and cognitive functioning. 2) Neuropsychological testing (typically 2 hours). A neuropsychology weatherization technician administers tests covering concentration, memory and a range of verbal and visual abilities. The testing is usually completed in one visit. Appointments are offered at the [facility] or at the [facility]. To schedule at either location, call [phone]. Advance Directives We understand that you have advance directives in place (living will & healthcare power of compliance attorney), which is excellent. Documents for healthcare can be uploaded to your medical record in the following ways: -Bring the forms to any [facility] medical appointment. A copy will be made and scanned into your medical record. -Scan and send to [email or web address] -Fax to [phone] -Mail to: [facility] Information Management, Ab7 Advance Directives Processing [address] [id number] Durable Power of Care Partner for Finance We encourage you to complete the forms for durable power of compliance attorney regarding finance. Durable Power of Care Partner for Finance allows a person to name an individual that they would want to make financial decisions on their behalf, in the event that they are unable to do so. These decisions may include: -Payment of a loved one s bills -Payment of their medical expenses -Investments made on their behalf -Collection of their usp benefits -Application for insurance benefits You can visit [email or web address] for more information. These forms require a notary upon completion. Education & Support When an individual experiences memory changes, no matter how mild or severe, we encourage individuals and families to educate themselves, learn communication tips, and ways to adjust expectations over time. There are many resources available online. The Alzheimer's Association (web site: alz.org/kaur) An organization that provides education and support to individuals/caregivers affected by memory loss, Alzheimer's disease, and all forms of dementia. Available 24 hours a day, 7 days per week. Contact: Local: ; Toll free: [phone] Family Caregiver [place] (web site: Caregiver.org) [employer]-- a secure online solution for quality information, support, and resources for family caregivers. Contact: Toll-free number: [phone] Alzheimers.gov Find Alzheimer disease and related dementias information, resources, research and more. Follow Up We would like to see you back in 4 months. If you have questions or concerns following your visit please contact us at [phone]. Sincerely, [facility] Brain Health Team Hardik Velarde APRN.JOURNAL ENTRY AUDIT CLERK Geriatric Clinical Nurse Specialist Megan Barron RN Woodworking Belt Sander YOLANDA Bautista Warehouse Associate Driver [employer] [facility] Licensed Independent K9 Handler documented in this encounter [facility] 02-08-2024 History of Present illness Narrative Images from the original note were not included. Tere Barone [id number] [place] [address] February 08, 2024 Time: 11:15 AM Follow up visit [facility] Accompanied by: spouse Bg Barone is a pleasant 73 year old male seen today for a follow up visit. 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 Lee), with the following plan: From last visit on 01/30/23: They did not follow on any suggestion form last visit. No follow up post stroke, Imaging as not requested form [facility]. Ms Barone is concerned why he doesn't talk much to her. He doesn't drink anymore but he smokes heavily. They continue Aspirin. Pleasant 73 year old year old male with mixed dementia (mild stage) I prescribed Memantine (Namenda). First and second week: One tablet (5mg) in am and 5 mg in pm Third week and after : One tablet (10mg) twice a day. Advised to provide us with a disc of imaging done in [facility] or ask them to upload in our system if they can. Cognitive Rehabilitation We believe that Justin may benefit from cognitive rehabilitation. This is a therapy that is designed to teach compensatory strategies and use organizational systems to improve day-to-day function. We would like you to follow with a provider after you started this medication. I understand he prefers a closer office and he will make appointment with Dr Kc within the next 2-3 months Follow up in about 3 months. Update since last visit: worsening symptoms: sleeping more, depressed. - Per telephone encounter from spouse on 12/25/23: Pt's Bg called. She is asking if something more can be done for the patient. She stated that she is concerned about the patient because he is losing weight, sleeping a lot, not talking - disengaged. She stated that this has been happening for the last couple of weeks. He is acting like he is depressed. She stated that she put pt on vegan diet after watching a special by Dr. Eduard Ibrahim and his 5 year study on AD. INTERIM REPORT: -Spouse initially noted an improvement with Namenda, not so much now. -She is asking about his diagnosis. -Spouse shares some personality traits have always been present, but exacerbated. -She speaks of taking him out of a retirement 2.5 years ago, brought him home. -Recently found out he will no longer be financially able for Medicaid. -She's concerned he doesn't talk as much, clams up with certain conversations. -Denies reports of him making inappropriate statements. -Moves slowly due to back problems. -Stress related to his hygiene, behavior in stores (taking items). -No current ETOH use, prior heavy use 2-3 years ago. -No reports of VH or AH. -She requested the images from [facility] be sent to [facility] from December 2022 hospitalization. Shares they didn't recommend further follow up. PATIENT REPORT: - pt denies feeling ill - no VH - denies daytime napping - no longer drinking - aware is not driving FUNCTIONAL ABILITIES: ADL'S: Bathing:Needs cuing, declines to wear deodorant. Dressing: Needs cuing-puts on dirty clothing, wears same pants for a week or more Eating: Independent Toileting: Independent, needs cues to flush the toilet. Ambulation: independent Falls in last 12 months:No Assistive device: none IADL's Meal prep/Cooking: Independent-warms foods Shopping: Needs assistance-takes candy or vape pens from store without purchasing. Housekeeping: Needs assistance Laundry: Needs assistance Medication mgt.: Needs assistance Use of pill box? Yes, filled by spouse Telephone: Independent Transportation: Dependent Finances: Needs assistance who does? spouse Living Situation: with spouse Agencies involved: none Other interval history: Memory: Poor Mood: spouse is concerned that he is depressed, apathy? Sleep: Sleeps more-at night and during the day; separate rooms, no reports of violent limb movements or acting out dreams. Falls: negative Advanced Directives Durable POA: Yes-son Mina. Financial POA: No, information discussed. Safety Assessment: Emergency: realistic plan: aware of 911 Medical Alert System: No Driving Concerns: No longer driving, stopped approximately 20 years ago due to hx of DUIs. Is the patient left alone? NO PAST MEDICAL HISTORY 04/18/2022: Alcohol abuse No date: Carpal tunnel syndrome of left wrist No date: Carpal tunnel syndrome on right 08/03/2021: COVID-19 No date: Dependence on nicotine from cigarettes 07/23/2021: Elevated troponin 08/03/2021: Essential hypertension 08/03/2021: Frequent falls No date: Mixed hyperlipidemia 08/04/2021: Multiple falls No date: Nicotine use disorder, F17.2 No date: Osteoarthritis 09/2012: Pseudophakia of left eye No date: Sleep apnea No date: Spinal stenosis 07/23/2021: Syncope No date: Thoracic or lumbosacral neuritis or radiculitis, unspecified 08/03/2021: Type 2 diabetes mellitus with hyperglycemia (HCC) SOCIAL HISTORY Social History Tobacco Use Smoking status: Every Day Current packs/day: 0.25 Average packs/day: 0.3 packs/day for 20.0 years (5.0 ttl pk-yrs) Types: Cigarettes Smokeless tobacco: Never Vaping Use Vaping status: Never Used Substance Use Topics Alcohol use: Not Currently Alcohol/week: 24.0 standard drinks of alcohol Types: 24 Cans of Beer (12oz) per week Drug use: No Social History reviewed by CK Gerard OBJECTIVE Current Outpatient Medications on File Prior to Visit Medication Sig Blood-Glucose Meter To check blood sugar once a day. E11.9 any brand covered by insurance is ok Lancets (ONETOUCH ULTRASOFT LANCETS) To check blood sugar once a day. E11.9 any brand covered by insurance is ok blood sugar diagnostic (BLOOD GLUCOSE TEST) test strip To check blood sugar once a day. E11.9 any brand covered by insurance is ok atorvastatin (LIPITOR) 80 mg tablet Take 1 tablet by mouth daily at bedtime. metoprolol succinate ER (TOPROL XL) 25 mg 24 hr tablet Take 1 tablet by mouth once daily. memantine (NAMENDA) 10 mg tablet Take 1 tablet by mouth two times a day. Patient should start on November 23, 2023. semaglutide (RYBELSUS) 14 mg tablet Take 1 tablet (14 mg) by mouth daily before breakfast. metFORMIN ER (GLUCOPHAGE XR) 500 mg 24 hr tablet Take 2 tablets by mouth two times a day with meals. furosemide (LASIX) 20 mg tablet Take 1 tablet by mouth once daily. potassium chloride (K-TAB) 10 mEq tablet Take 1 tablet by mouth once daily. losartan (COZAAR) 25 mg tablet Take 1 tablet by mouth once daily. aspirin 81 mg chewable tablet CHEW AND SWALLOW 1 (ONE) TABLET EVERY DAY cyanocobalamin (VITAMIN B-12) 1,000 mcg tab Take 1 tablet by mouth once daily. B Complex-Folic Acid (B COMPLEX 1, WITH FOLIC ACID,) 0.4 mg tab Take 1 tablet by mouth once daily. thiamine (VITAMIN B1) 100 mg tablet 100 mg once daily. Cholecalciferol, Vitamin D3, 25 mcg (1,000 unit) cap Take 1,000 Units by mouth once daily. acetaminophen (TYLENOL) 325 mg tablet Take 1-2 tablets by mouth every 6 hours as needed for pain or fever (specify). Current Facility-Administered Medications on File Prior to Visit Medication perflutren lipid microspheres 1.3 mL in NaCl (PF) 0.9% 10 mL injection (DEFINITY) sodium chloride 0.9 % (flush) 10 mL (BD POSIFLUSH) Physical Exam: General appearance: Well appearing, alert, in no acute distress Neuro: Able to get off of chair with arms crossed: Intact-slow Tremor: None at rest or with FTN or with arms Gait: Slowed, mild shuffling? Several step turn , Arms swing: diminished Strength 4/5 throughout Normal tone vs mild increase with activation Mental Status Exam: Orientation: alert Appearance: normal grooming Eye contact: normal Facial expression: neutral Psychomotor: slowed Speech/Language: poverty of speech- Affect: restricted Mood: normal and unchanged- states is good Thought Process: logical Thought Content: appropriate + mild disinhibition Judgment: intact for 911 Insight: fair Knowledge: not assessed Visual Hallucinations/Delusional thinking: Denies Cognitive Assessment: 01/30/2023 11/08/2023 [facility] MOCA TOTAL SCORE 19 17 out of 30 30 Patient-Entered Data: Patient-Reported No data to display PHQ-9 01/30/2023 10/10/2022 PHQ-9 All Questions Little interest or pleasure in doing things 0 0 Feeling down, depressed, or hopeless 0 0 Trouble falling or staying asleep, or sleeping too much 0 Feeling tired or having little energy 0 Poor appetite or overeating 0 Feeling bad about yourself - or that you are a failure or have let yourself or your family down 0 Trouble concentrating on things, such as reading the newspaper or watching television 0 Moving or speaking so slowly that other people could have noticed. Or the opposite - being so fidgety or restless that you have been moving around a lot more than usual 0 Thoughts that you would be better off , or of hurting yourself in some way 0 PHQ-9 Score 0 (0-4) minimal depression (5-9) mild depression (10-14) moderate depression (15-19) moderately severe depression (20-27) severe depression Full History of PHQ-9 Scores PHQ-9 Score 01/30/2023 0 01/28/2019 8 06/13/2018 3 02/26/2018 5 10/01/2017 3 07/10/2017 3 11/14/2016 4 05/23/2016 5 10/05/2015 3 04/29/2015 6 Dementia Severity Rating Scale (DSRS) 11/08/2023 DSRS Person completing Bg Live with participant? Yes Contact with participant 5 or more days per week Relationship to participant Spouse Memory 3 Speech and Language 5 Recognition of Family Members 0 Orientation to Time [address] 0 Ability to Make Decisions 1 Social and Community Activity 4 Home Activities and Responsibilities 0 Personal Care - Cleanliness 1 Eating 0 Urination and Bowels 1 Ability to Get From Place to Place 0 DSRS TOTAL SCORE 15 DSRS Interpretation Mild (0-18) Vital Signs: BP 125/67 Pulse 81 Wt 91 kg (200 lb 9.9 oz) BMI 28.50 kg/m BP w/Orthostatic Vitals Date and Time Orthostatic BP Orthostatic Pulse BP Pulse BP Position BP Site BP Cuff Size 02/08/24 1122 122/65 79 -- -- -- -- -- 02/08/24 1118 -- -- 125/67 81 -- -- -- Diagnostic Results: No new results today COMPARISON: CT head 12/19/2022. FINDINGS: Diffusion imaging shows no hyperacute, acute, or early subacute infarction. There is no mass, mass-effect, or abnormal extra-axial fluid collection. Scattered FLAIR hyperintensities in the cerebral white matter are nonspecific but statistically most consistent with mild chronic microvascular angiopathy. No abnormal magnetic susceptibility artifact of the parenchyma, save minimal foci of the basal ganglia correlating to parenchymal mineralization on CT. There is mild cerebral volume loss, with commensurate ventricular and sulcal enlargement. There are normal signal voids in the larger intracranial vessels. Mucous retention cyst of right sigmoid sinus. Moderate mucosal thickening of ethmoid air cells with a few air cells opacified. Trace air-fluid level of left greater than right maxillary sinuses with minimal mucosal thickening. Minimal mucosal thickening bilateral sphenoid sinuses. The mastoid air cells are clear. The marrow signal pattern is within normal limits. IMPRESSION: 1. No acute intracranial abnormality. 2. Mild chronic microvascular angiopathy. 3. Findings compatible with acute left maxillary sinusitis in the appropriate clinical setting. Additional paranasal sinus disease as above. Caregiver Stress/[place]: Tearful today, speaks of child passing away. Encouraged self-care, reviewed communication tips and caregiver strategies. IMPRESSION AND RECOMMENDATIONS: Dementia NOS, frontal lobe symptoms Pleasant 73 year old year old male with deficits in forming new memories, visuospatial skills, learning, planning tasks, retrieval of memories and words, attention, verbal fluency, language, abstraction, and thinking slowly. Difficulty with IADL's, cued- reminders for BADL's Pt returns for 4 month follow up visit. In the interim- is describing a change/decline in his cognition and function. She finds him more flat, and slowed and she wonders if he's depressed. She states he shows less emotion, makes mildly inappropriate comments for example he often asks strangers where they live, if they are and have children. He asked me these questions today. He is stealing small items from store, needs reminder to change clothes, wear deodorant and flush the toilet. We agreed to consult our neuropsychologist to help discern his cognitive impairment, cause of dementia. We discussed adding Sertraline for possible depression. Pt is not interested at this time- will discuss over time. (F03.918) Dementia with behavioral disturbance (HCC) (primary encounter diagnosis) Plan: NEUROPSYCHOLOGICAL TESTING CONSULT PLAN -Follow up in 2 months after testing. I spent a total of 50 minutes on the date of the service which included preparing to see the patient, [id number] patient care, completing clinical documentation, obtaining and/or reviewing separately obtained history, counseling and educating the patient/family/caregiver, ordering medications, tests, or procedures, communicating with other HCPs (not separately reported) and care coordination (not separately reported). Sammi Velarde APRN.RHONDA documented in this encounter [facility] 01-11-2024 Telephone encounter Note Left VM for pt's spouse with call back number to discuss concerns. Megan Barron RN [facility] 01-11-2024 Miscellaneous Notes Left VM for pt's spouse with call back number to discuss concerns. Megan Barron RN Pt and spouse, Bg accidentally came to [facility] today. Pt is scheduled for 02/07 @ 11:00/11:15A. After discovering the appt month error, Bg stated she would like to speak with provider re: pt questions and concerns. (Emergency Department Physician stated to spouse she will forward request to speak with nurse onto [employer] for f/u.) Best contact: . Thank you, Karen documented in this encounter [facility] 01-11-2024 Instructions Son Bañuelos LPN - 01/11/2024 1:20 PM EDT CARE FOR YOUR BIOPSY SITE Please follow these instructions for daily wound care: Keep the area clean and dry with the bandage in place the day of the procedure. Wash the area every day with gentle soap and water. You may shower, but do NOT soak in a bathtub, hot tub, pool, florez, or etc. until after the wound has healed. Apply a thin layer of Vaseline or Aquaphor to the wound site to keep the area slightly greasy at all time (this helps to prevent scabbing). Studies show that wounds heal better when covered with ointment and a dressing. DO NOT USE NEOSPORIN, BACITRACIN, or other similar products as there is a fairly high incidence of allergic response to these products. Please also AVOID an old tub of ointment as this can introduce germs into your wound and cause infection. Cover with a bandage and continue this daily process until the wound is healed. If you experience any bleeding, please apply pressure to the area for approximately 10 minutes. You may experience some mild discomfort, redness, swelling, and/or a clear discharge from the wound after your procedure. Severe pain, worsening swelling, and foul-smelling discharge from the site are NOT to be expected. Biopsy results can take up to a week, we will contact you accordingly, either via ZYOMYX or telephone call. If you have any questions or concerns, please send your provider a ZYOMYX message or contact the [facility] office at [phone]. documented in this encounter [facility] 01-11-2024 History of Present illness Narrative ESTABLISHED PATIENT 01/11/2024 Last Visit in Dermatology: 10/31/2023 IMPRESSION / ASSESSMENT & PLAN 1. Neoplasm of skin Right Dorsal Hand 0.5 x 0.6 cm pink scaly papule R/O SCC SKIN / NAIL BIOPSY Type of biopsy: tangential Informed consent: discussed and consent obtained Informed consent comment: Risks, benefits, and alternatives discussed. Timeout: patient name, date of , surgical site, and procedure verified Procedure prep: Patient was prepped and draped in usual sterile fashion Prep type: Isopropyl alcohol Anesthesia: the lesion was anesthetized in a standard fashion Anesthetic: 1% lidocaine w/ epinephrine 1-100,000 local infiltration Instrument used: DermaBlade Hemostasis achieved with: aluminum chloride Outcome: patient tolerated procedure well Post-procedure details: sterile dressing applied and wound care instructions given Dressing type: petrolatum and bandage Additional details: Shave biopsy to establish and confirm diagnosis. Photos in Get Images. Specimen A - Surgical Pathology 2. Encounter for follow-up examination after completed treatment for malignant neoplasm Advised sun protection with broad-spectrum SPF 30+, wide brim hats, sun glasses, and protective clothing. Continued monitoring. Regular skin exams discussed given increased risk of subsequent cutaneous malignancies. Observe for changing, symptomatic, or new skin lesions and return to dermatology if any lesions of concern are noted. 3. History of nonmelanoma skin cancer Well-healed scar(s) with no clinical evidence of recurrence. Discussed nature of sun-induced photo-aging and skin cancers. Continue full body skin examinations as recommended. 4. Sun-damaged skin Rhytides and osorio/brown pigmented macules in sun exposed sites Medical Complexity / Status: Chronic, Stable. Consistent with changes from chronic sun exposure which increases the risk of skin cancer and skin aging. 5. Multiple benign nevi Multiple symmetric osorio to brown macules with uniform pigmentation, and scattered pink papules with flaccid epidermis, widely distributed throughout Observational course, monitor for growth and changes. 6. Bowman angioma Torso - Posterior (Back) Bright red, dome-shaped papules Educated on benign nature. Observational course, monitor for changes. 7. Seborrheic keratoses Stuck-on verrucous, variably pigmented papule(s) and plaque(s) throughout Educated on benign nature. Observational course, monitor for changes. 8. Lentigines Densely scattered light osorio macules and small patches on all sun exposed areas Educated on benign nature. Observational course, monitor for changes. UNIVERSAL PROTOCOL / SAFETY CHECKLIST Procedure to be Performed: Skin nail biopsy Sign In: A Moment of CARE was completed. Personnel directly involved with the procedure wore the appropriate PPE (Personal Protective Equipment). Patient/Surrogate Stated/Verified: PATIENT VERIFIED (optional for EMERGENT procedures): Patient name, Date of , Relevant allergies, and The intended procedure Time Out Communication: Intended patient and procedure match the source documents. Consent documented and matches the intended procedure. Relevant labs, photos, and/or imaging studies have been reviewed. Correct side/site marked and visible. Medications required for procedure verified. Sign Out: SIGN OUT (optional for EMERGENT procedures): All specimen containers correctly labeled. All instruments, equipment, possible retained foreign bodies accounted for. Post-procedure follow-up management communicated and Plan of Care Visit completed when applicable. Son Bañuelos LPN Follow Up: 6 Months for FBSE, Pending Pathology Return PRN or sooner for questions and concerns. SUBJECTIVE / OBJECTIVE Chief Complaint: Full Body Skin Check HPI: Tere Barone is a 73 year old male. Patient presents with: Full Body Skin Check # Full Body Skin Exam No other concerns today. 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 Medications Reviewed. Allergies Reviewed. ROS: Skin: As per HPI. Constitutional: Denies fever, chills, unintentional weight loss. PHYSICAL EXAM: [place] Skin Type: II Pleasant male in no apparent distress. Alert and oriented x 3. Appears well developed, well nourished, and in otherwise good health. Appropriate mood and affect. A skin exam of the (full body) scalp, face, ears, neck, chest, abdomen, back, bilateral upper extremities, bilateral lower extremities, buttocks, hands, feet, and nails was performed, with pertinent findings as noted in the A&P. Underwear was kept on per patient preference, excluding genitalia. Attestation The documentation for this note was completed by Son Bañuelos LPN acting as scribe for Анна Perez PA-C. Electronically Signed: Son Bañuelos LPN on January 11, 2024 1:05 PM. I agree with the Chief Complaint, ROS, and Past Histories independently gathered by the clinical production support manager and the remaining scribed note accurately describes my personal service to the patient. Electronically Signed: Анна Perez PA-C on January 11, 2024 1:11 PM. Анна Perez PA-C Department of Dermatology Medical Decision Making: Problems: Low: 2+ self-limited or minor problems and Stable chronic illness Moderate: New problem with uncertain prognosis Risk: Low: Low risk from testing/treatment Moderate: Drug management Medical Decision Making Level: 4 - Moderate documented in this encounter [facility] 01-09-2024 Instructions Sedrick Roberts MD - 01/09/2024 3:11 PM EDT - Continue metformin 500 mg 2 tabs twice a day - Continue Rybelsus 14 mg once a day - please check your blood sugar few times a week on different times - Follow up in 3 months with Migdalia - See the dietitian. Call [phone] to schedule documented in this encounter [facility] 01-09-2024 History of Present illness Narrative ENDOCRINOLOGY CLINIC NOTE Mr. Barone is a 73 year old male with T2DM, dyslipidemia, HTN, and sleep apnea presented with his for follow-up of T2DM HPI He was diagnosed with diabetes a year ago and was not taking anything. He was admitted to the hospital in 08/2021 with COVID and required ICU stay due to high oxygen requirements. He was discharge to a retirement on insulin and metfomrin. He developed thrombocytopenia and the aspirin was stopped. He saw hematology We started him on Rybelsus and increased the dose. And also added low-dose glipizide XL and stopped insulin. Glipizide was eventually stopped because of hypoglycemia A1c: 07/24/21 05:30 06/21/23 09:30 01/04/24 15:59 Hemoglobin A1C 9.7 (H) 6.2 (H) 6.3 (H) Current regimen: Metformin XR 500 mg 2 tabs twice a day Rybelsus 14 mg daily Home glucose monitoring: He used to have yessenia but not anymore. He does not check with fingerstick Diet: He eats 3 meals a day Physical activity: In the context of daily activities Complications: Retinopathy: Last eye exam was in 06/2021 that showed cataract, but no diabetic eye exam at that time Nephropathy: Normal GFR in 06/2023 Neuropathy: No symptoms suggestive of that CVS: lipid profile: 06/2023: LDL 37, TG 60 on atorvastatin 80 mg. BP: 140/83 PAST MEDICAL HISTORY 04/18/2022: Alcohol abuse No date: Carpal tunnel syndrome of left wrist No date: Carpal tunnel syndrome on right 08/03/2021: COVID-19 No date: Dependence on nicotine from cigarettes 07/23/2021: Elevated troponin 08/03/2021: Essential hypertension 08/03/2021: Frequent falls No date: Mixed hyperlipidemia 08/04/2021: Multiple falls No date: Nicotine use disorder, F17.2 No date: Osteoarthritis 09/2012: Pseudophakia of left eye No date: Sleep apnea No date: Spinal stenosis 07/23/2021: Syncope No date: Thoracic or lumbosacral neuritis or radiculitis, unspecified 08/03/2021: Type 2 diabetes mellitus with hyperglycemia (HCC) PAST SURGICAL HISTORY 1988: ARTHRD ANT INTERBODY MIN DSC LUMBAR 2008: NEUROPLASTY &/TRANSPOS MEDIAN NRV CARPAL TUNNE Comment: Carpal tunnel decomp Lt. 09/2012: XCAPSL CTRC RMVL INSJ IO LENS PROSTH W/O ECP Comment: Cataract Extraction with PC IOL left FAMILY HISTORY Problem Relation Age of Onset Diabetes Mother Heart Mother Hypertension Mother Stroke Mother Cataract Mother Glaucoma Mother Macular Degen Father Cancer Sister Parkinsonism Sister Asthma Sister Headache Brother Cancer Brother Heart Attack Brother Social History Tobacco Use Smoking status: Every Day Packs/day: 0.25 Years: 20.00 Additional pack years: 0.00 Total pack years: 5.00 Types: Cigarettes Smokeless tobacco: Never Vaping Use Vaping Use: Never used Substance Use Topics Alcohol use: Not Currently Alcohol/week: 24.0 standard drinks of alcohol Types: 24 Cans of Beer (12oz) per week Drug use: No (Not in a hospital admission) Allergies As of Date: 01/09/2024 (No Known Allergies) Fully Assessed 01/09/2024 Current Outpatient Medications Medication Sig Dispense Refill atorvastatin (LIPITOR) 80 mg tablet Take 1 tablet by mouth daily at bedtime. 90 tablet 3 metoprolol succinate ER (TOPROL XL) 25 mg 24 hr tablet Take 1 tablet by mouth once daily. 90 tablet 3 memantine (NAMENDA) 10 mg tablet Take 1 tablet by mouth two times a day. Patient should start on November 23, 2023. 60 tablet 3 semaglutide (RYBELSUS) 14 mg tablet Take 1 tablet (14 mg) by mouth daily before breakfast. 90 tablet 3 metFORMIN ER (GLUCOPHAGE XR) 500 mg 24 hr tablet Take 2 tablets by mouth two times a day with meals. 360 tablet 3 furosemide (LASIX) 20 mg tablet Take 1 tablet by mouth once daily. 90 tablet 3 potassium chloride (K-TAB) 10 mEq tablet Take 1 tablet by mouth once daily. 90 tablet 3 losartan (COZAAR) 25 mg tablet Take 1 tablet by mouth once daily. 90 tablet 3 aspirin 81 mg chewable tablet CHEW AND SWALLOW 1 (ONE) TABLET EVERY DAY 30 tablet 2 cyanocobalamin (VITAMIN B-12) 1,000 mcg tab Take 1 tablet by mouth once daily. B Complex-Folic Acid (B COMPLEX 1, WITH FOLIC ACID,) 0.4 mg tab Take 1 tablet by mouth once daily. 30 tablet 5 thiamine (VITAMIN B1) 100 mg tablet 100 mg once daily. Cholecalciferol, Vitamin D3, 25 mcg (1,000 unit) cap Take 1,000 Units by mouth once daily. acetaminophen (TYLENOL) 325 mg tablet Take 1-2 tablets by mouth every 6 hours as needed for pain or fever (specify). Current Facility-Administered Medications Medication Dose Route Frequency Provider Last Rate Last Admin perflutren lipid microspheres 1.3 mL in NaCl (PF) 0.9% 10 mL injection (DEFINITY) INTRAVENOUS DIRECTED PRN Priscilla Salas MD sodium chloride 0.9 % (flush) 10 mL (BD POSIFLUSH) 10 mL INTRAVENOUS DIRECTED PRN Priscilla Salas MD COMPLETE REVIEW OF SYSTEMS: 10 point review of systems was negative other than what is mentioned in the H&P PHYSICAL EXAM: 01/09/24 1452 BP: 140/83 Pulse: 81 SpO2: 98% Weight: 92.1 kg (203 lb 0.7 oz) General: NAD, alert and cooperative, no facial plethora Previous exam HEENT: EOMI, no proptosis/stare. Neck: supple with full ROM. No thyromegaly or palpable nodules. Cardiovascular: RRR, +S1 and S2, Lungs: Clear to auscultation bilaterally Abdomen: soft, non-tender, non-distended Extremities: No LE oedema Neuro: alert and oriented Psych: Normal affect Foot Exam 12/21/2021: no wounds or ulcers. Good pedal pulses bilaterally. Normal monofilament and vibration sensation bilaterally Labs: As mentioned above Assessment and Recommendations: Mr. Rand is a pleasant 73-year-old man presented with his for follow-up of T2DM. Our goal is an A1c around 7- 7.5% to reduce the risks of diabetes related complications while not significantly increasing the risk of hypoglycemia He was on glipizide and basal insulin but they were stopped because of hypoglycemia. He is currently on metformin and Rybelsus and will continue the same. He used to have yessenia but not anymore. His meter was not working. I prescribed a new glucose monitor with a supply and I asked him to check his blood sugar few times a week on different times. His is interested in meeting with a dietitian since she is trying to do vegan diet.. Referral was placed. They are planning to see a neurologist for possible dementia RTC in 3 months with Migdalia and in 6 months with Some of the above has been copied from prior documentation on 01/31/2023 but leo elements reviewed, confirmed, and/or updated by me (Sedrick Roberts MD) on 01/09/2024 Medical Decision Making: Problems: Low: Stable chronic illness Data: Unique test result(s) reviewed: 3+ Risk: Moderate: Moderate risk from testing/treatment Medical Decision Making Level: 4 - Moderate Sedrick Roberts MD documented in this encounter [facility] 01-09-2024 History of Present illness Narrative PROCEDURE FOLLOW UP PATIENT ID CONFIRMED: YES PATIENT ID VERIFIED BY: Marie Gifford RN CLINICIAN: Marie Gifford RN PATIENT RETURNS FOR: suture removal PHOTO TAKEN: No PATIENT IS S/P: MOHS surgery FOLLOW UP DIAGNOSIS: scar Pathology results: NONE DATE OF PROCEDURE: 12/26/2023 SITE LOCATION: left anterior forearm WOUND MANAGEMENT: Mohs site with primary closure: Wound is well approximated without signs of infection; appears to be healing well. Patient denies any problems or concerns. Sutures removed easily, and patient tolerated well.Vaseline with bandage applied. FOLLOW UP: PRN Marie Gifford RN January 09, 2024 10:45 AM documented in this encounter [facility] 01-08-2024 Telephone encounter Note Pt and spouse, Bg accidentally came to [facility] today. Pt is scheduled for 02/07 @ 11:00/11:15A. After discovering the appt month error, Bg stated she would like to speak with provider re: pt questions and concerns. (Emergency Department Physician stated to spouse she will forward request to speak with nurse onto [employer] for f/u.) Best contact: . Thank you, Karen [facility] 01-04-2024 History of Present illness Narrative CC: Patient presents with: Follow Up HPI Tere Barone is a 73 year old male who presents today for follow up. Patient was 5 minutes late to his appointment. He is accompanied by his . Updates: recent removal of SCC left forearm per derm, scheduled for suture removal next week. Mixed Alzheimer's and vascular dementia: Follows with neurology. On Namenda Mood: stable, but quiet/does not engage in significant conversation per Behavior: notes he takes candy from stores. Denies any aggressive behavior. DMT2: Patient previously followed with endo, missed last appointment but rescheduled to 01/08 Compliant with and tolerating medications. Home glucose readings: n/a, regular glucose monitor is broken Denies vision changes or numbness/tingling Last eye exam: couple of years ago, Down 11 lbs since October 2024 Due for labs. HTN: Compliant with and tolerating medications. Denies headache, chest pain, dyspnea, edema, dizziness or syncope Home BP readings: n/a Exercise: no structured exercise, planning to start walking the [employer] track Last 3 Encounter BP Readings: Date: BP: 01/04/2024 124/74 12/26/2023 128/72 12/17/2023 134/80 Hyperlipidemia. Mr. Barone reports doing well on current therapy of atorvastatin (Lipitor). Denies side effects of muscle weakness or achiness. His most recent lipid panels are: Cholesterol, Total (mg/dL) Date Value 06/21/2023 91 07/23/2021 204 03/21/2021 241 HDL Cholesterol (mg/dL) Date Value 06/21/2023 42 07/23/2021 37 03/21/2021 32 LDL Cholesterol (mg/dL) Date Value 06/21/2023 37 07/23/2021 133 03/21/2021 144 Triglyceride (mg/dL) Date Value 06/21/2023 60 07/23/2021 168 03/21/2021 323 Patient is an active smoker: up to 1 ppd, possibly more per . REVIEW OF SYSTEMS ROS as above otherwise noncontributory PAST MEDICAL HISTORY Diagnosis Date Alcohol abuse 04/18/2022 Carpal tunnel syndrome of left wrist Carpal tunnel syndrome on right COVID-19 08/03/2021 Dependence on nicotine from cigarettes Elevated troponin 07/23/2021 Essential hypertension 08/03/2021 Frequent falls 08/03/2021 Mixed hyperlipidemia Multiple falls 08/04/2021 Nicotine use disorder, F17.2 Osteoarthritis Pseudophakia of left eye 09/2012 Sleep apnea Spinal stenosis Syncope 07/23/2021 Thoracic or lumbosacral neuritis or radiculitis, unspecified Type 2 diabetes mellitus with hyperglycemia (HCC) 08/03/2021 PAST SURGICAL HISTORY Procedure Laterality Date ARTHRD ANT INTERBODY MIN DSC LUMBAR 1988 NEUROPLASTY &/TRANSPOS MEDIAN NRV CARPAL TUNNE 2008 Carpal tunnel decomp Lt. XCAPSL CTRC RMVL INSJ IO LENS PROSTH W/O ECP 09/2012 Cataract Extraction with PC IOL left ALLERGIES Patient has no known allergies. MEDICATIONS atorvastatin (LIPITOR) 80 mg tablet^Take 1 tablet by mouth daily at bedtime.^Disp: 90 tablet^Rfl: 3 tiZANidine (ZANAFLEX) 2 mg tablet^Take 1-2 tablets by mouth two times a day as needed.^Disp: 6 tablet^Rfl: 0 metoprolol succinate ER (TOPROL XL) 25 mg 24 hr tablet^Take 1 tablet by mouth once daily.^Disp: 90 tablet^Rfl: 3 memantine (NAMENDA) 10 mg tablet^Take 1 tablet by mouth two times a day. Patient should start on November 23, 2023.^Disp: 60 tablet^Rfl: 3 semaglutide (RYBELSUS) 14 mg tablet^Take 1 tablet (14 mg) by mouth daily before breakfast.^Disp: 90 tablet^Rfl: 3 metFORMIN ER (GLUCOPHAGE XR) 500 mg 24 hr tablet^Take 2 tablets by mouth two times a day with meals.^Disp: 360 tablet^Rfl: 3 furosemide (LASIX) 20 mg tablet^Take 1 tablet by mouth once daily.^Disp: 90 tablet^Rfl: 3 potassium chloride (K-TAB) 10 mEq tablet^Take 1 tablet by mouth once daily.^Disp: 90 tablet^Rfl: 3 losartan (COZAAR) 25 mg tablet^Take 1 tablet by mouth once daily.^Disp: 90 tablet^Rfl: 3 aspirin 81 mg chewable tablet^CHEW AND SWALLOW 1 (ONE) TABLET EVERY DAY^Disp: 30 tablet^Rfl: 2 cyanocobalamin (VITAMIN B-12) 1,000 mcg tab^Take 1 tablet by mouth once daily.^Disp: ^Rfl: B Complex-Folic Acid (B COMPLEX 1, WITH FOLIC ACID,) 0.4 mg tab^Take 1 tablet by mouth once daily.^Disp: 30 tablet^Rfl: 5 thiamine (VITAMIN B1) 100 mg tablet^100 mg once daily.^Disp: ^Rfl: Cholecalciferol, Vitamin D3, 25 mcg (1,000 unit) cap^Take 1,000 Units by mouth once daily.^Disp: ^Rfl: UNILET LANCET 28 gauge^20 Units twice daily.^Disp: ^Rfl: (Patient not taking: Reported on 11/08/2023) acetaminophen (TYLENOL) 325 mg tablet^Take 1-2 tablets by mouth every 6 hours as needed for pain or fever (specify).^Disp: ^Rfl: FAMILY HISTORY Problem Relation Age of Onset Diabetes Mother Heart Mother Hypertension Mother Stroke Mother Cataract Mother Glaucoma Mother Macular Degen Father Cancer Sister Parkinsonism Sister Asthma Sister Headache Brother Cancer Brother Heart Attack Brother Social History Tobacco Use Smoking status: Every Day Packs/day: 0.25 Years: 20.00 Additional pack years: 0.00 Total pack years: 5.00 Types: Cigarettes Smokeless tobacco: Never Vaping Use Vaping Use: Never used Substance Use Topics Alcohol use: Not Currently Alcohol/week: 24.0 standard drinks of alcohol Types: 24 Cans of Beer (12oz) per week Drug use: No PHYSICAL EXAM BP 124/74 Pulse 76 Temp 36.7 C (98.1 F) (Oral) Wt 92.3 kg (203 lb 7.8 oz) SpO2 100% BMI 28.90 kg/m General Appearance: well appearing, in no acute distress, alert Pysch: mood and affect flat and restricted Skin: Skin color, texture, turgor normal for age; Head: normocephalic, atraumatic Eyes: EOM's intact, conjunctiva pink and moist, no icterus, sclera white, non-injected Lungs: Lungs clear to auscultation. No wheezing, rhonchi, rales. Heart: RRR without murmur, gallop, or rubs. No ectopy B/L Lower Extremities: no edema Depression Screening Never done Anxiety Screening Never done DTaP,Tdap,Td Vaccine(1 - Tdap) Never done Shingrix Vaccine(1 of 2) Never done RSV Vaccine(1 - 1-dose 60+ series) Never done Dilated Retinal Exam due on 06/16/2022 Covid-19 Vaccine(3 - season) due on 07/28/2023 HbA1C due on 12/20/2023 Influenza Vaccine(1) due on 02/10/2024 Annual PCP Team Chronic Disease Visit due on 06/12/2024 Urine Albumin:Creatinine Ratio due on 06/21/2024 LDL Cholesterol due on 06/21/2024 Colorectal Cancer Screening due on 08/08/2024 Diabetic Foot Exam due on 12/03/2024 BP Controlled (<130/80) due on 12/25/2024 Abdominal Aortic Aneurysm Screening Completed Advance Directive Discussion Completed Hepatitis C Screening Completed Pneumococcal Vaccine: 65+ Completed ASSESSMENT/PLAN: 1. Mixed hyperlipidemia - ICD9: 272.2, ICD10: E78.2 (primary diagnosis) - Controlled - Continue current medications - Counseled on healthy diet and regular exercise - Follow up in 6 months, sooner should any other issues arise. 2. Encounter for immunization - ICD9: V03.89, ICD10: Z23 - RSV PRINTED PHARMACY INSTRUCTIONS - SHINGRIX PRINTED PHARMACY INSTRUCTIONS - plans to complete covid booster at local pharmacy, would like to plan for possible downtime, they are watching their grandchildren tomorrow 3. Type 2 diabetes mellitus without complication, without long-term current use of insulin (HCC) - ICD9: 250.00, ICD10: E11.9 - Control undetermined, due for labs - Continue current medications - Statin prescribed - atorvastatin - Counseled on healthy diet and regular exercise - Smoking cessation encouraged; discussed risks to health and quitting strategies. Patient is not ready to quit - follow up with endo as scheduled - HEMOGLOBIN A1C 4. Essential hypertension - ICD9: 401.9, ICD10: I10 - Controlled - Continue current medications - Recommend home blood pressure monitoring, to bring results to next visit - Encouraged sodium restriction, DASH or Mediterranean diet - Recommend regular aerobic exercise - Smoking cessation encouraged; discussed risks to health and quitting strategies. Patient is not ready to quit - Follow up in 6 months for hypertension visit 5. Tobacco use disorder - ICD9: 305.1, ICD10: F17.200 - Cessation encouraged. - Physiologic and physical aspects of tobacco addiction as well as strategies for quitting were discussed. - Counseling was given focusing on the harmful effects of this addiction especially given the patient's medical condition(s) which will be worsened because of the chemicals in tobacco. 6. SCC (squamous cell carcinoma), arm, left - ICD9: 173.62, ICD10: C44.629 - recent excision, scheduled for suture removal next week. - follow up with derm as planned 7. Mixed Alzheimer and vascular dementia (HCC) - ICD9: , ICD10: G30.9, F01.50, F02.80 - behavior is stable - following with neurology - continue current medications Prescription instructions reviewed with patient as applicable. Potential red flag symptoms discussed with the patient. Reviewed appropriate action plan to take if red flag symptoms occur. Patient agreeable to treatment plan. Toni Duran APRN.[employer] BLOCK MAKER documented in this encounter [facility] 12-31-2023 Telephone encounter Note Patient is out of his medication and is asking for this to be expedited today. Patient has been identified by name and date of : Yes Spouse phones for refill(s): Requested Prescriptions Pending Prescriptions Disp Refills atorvastatin (LIPITOR) 80 mg tablet 90 tablet 3 Sig: Take 1 tablet by mouth daily at bedtime. Date of last office visit in primary care: 06/12/2023 Date of next office visit in primary care: Visit date not found Please advise. Thank you. Marie Shea. [facility] 12-31-2023 Miscellaneous Notes Patient is out of his medication and is asking for this to be expedited today. Patient has been identified by name and date of : Yes Spouse phones for refill(s): Requested Prescriptions Pending Prescriptions Disp Refills atorvastatin (LIPITOR) 80 mg tablet 90 tablet 3 Sig: Take 1 tablet by mouth daily at bedtime. Date of last office visit in primary care: 06/12/2023 Date of next office visit in primary care: Visit date not found Please advise. Thank you. Marie Shea. documented in this encounter [facility] 12-29-2023 Telephone encounter Note Patient s/p [facility] 12/26/23 for SCCis left forearm cleared layer A and closed linearly buried 4-0 absorbable sutures and superficial 5-0 non absorbable sutures. Today (12/28) patient removed the pressure dressing as instructed and noticed concerning changes. Patient called. Patient describes a circumferential bracelet like purple discoloration under the distal edge of the wrap without fluctuance, tenderness, pain or green or yellow discoloration. No photo available. Wound edges remains asymptomatic without bleeding or notable redness. Denied purple discoloration along wound edges. Denied tenderness, pin/ needles, cramping or appreciable functional changes to distal hand or digits. Overall suggests appearance improving. Advised to monitor changes, switch to non-stick dressing along wound edge with gentle wrap to secure in place, and advised to seek medical care if concerning symptoms arise. Also advised to creat [employer] account to share photos. [employer] activation link texted. Patient scheduled 01/08 for suture removal and wound check. Advised patient to make sure wound photographed during this visit and results transmitted to surgical team. [facility] Work Phone: 12-29-2023 Miscellaneous Notes Patient s/p [facility] 12/26/23 for SCCis left forearm cleared layer A and closed linearly buried 4-0 absorbable sutures and superficial 5-0 non absorbable sutures. Today (12/28) patient removed the pressure dressing as instructed and noticed concerning changes. Patient called. Patient describes a circumferential bracelet like purple discoloration under the distal edge of the wrap without fluctuance, tenderness, pain or green or yellow discoloration. No photo available. Wound edges remains asymptomatic without bleeding or notable redness. Denied purple discoloration along wound edges. Denied tenderness, pin/ needles, cramping or appreciable functional changes to distal hand or digits. Overall suggests appearance improving. Advised to monitor changes, switch to non-stick dressing along wound edge with gentle wrap to secure in place, and advised to seek medical care if concerning symptoms arise. Also advised to creat [employer] account to share photos. [employer] activation link texted. Patient scheduled 01/08 for suture removal and wound check. Advised patient to make sure wound photographed during this visit and results transmitted to surgical team. documented in this encounter [facility] 12-29-2023 Telephone encounter Note Ex- calling regarding post op concerns: Conferenced to [facility] lacquer pin press operatorAnne, to speak with Dermatology provider application development consultant for Dr. Su Mccrary and was advised to go to ER, if needed. stated they removed dressing, is unsure whether it was too tight, and skin in small area looks purple. [facility] 12-29-2023 Miscellaneous Notes Ex- calling regarding post op concerns: Conferenced to [facility] lacquer pin press operatorAnne, to speak with Dermatology provider application development consultant for Dr. Su Mccrary and was advised to go to ER, if needed. stated they removed dressing, is unsure whether it was too tight, and skin in small area looks purple. documented in this encounter [facility] 12-27-2023 Telephone encounter Note Advised patient's spouse of message below [facility] 12-27-2023 Miscellaneous Notes Advised patient's spouse of message below He can try it. Should take a vitamin b12 tablet once daily with 1000mcg of b12 in it. Patient's spouse asking if he can try a vegan diet and if there are any supplements he should be taking while on it She was researching and found info that a vegan diet can be good for dementia Please advise documented in this encounter [facility] 12-27-2023 Telephone encounter Note He can try it. Should take a vitamin b12 tablet once daily with 1000mcg of b12 in it. [facility] 12-27-2023 Telephone encounter Note Patient's spouse asking if he can try a vegan diet and if there are any supplements he should be taking while on it She was researching and found info that a vegan diet can be good for dementia Please advise [facility] 12-26-2023 Telephone encounter Note RN called the spouse back, no answer, left a message that the provider feels that it would be best for the patient to come in to be seen by Sammi Velarde to assess the patient's needs. Phone number provided. Conchita Jenkins RN [facility] 12-26-2023 Miscellaneous Notes RN called the spouse back, no answer, left a message that the provider feels that it would be best for the patient to come in to be seen by Sammi Velarde to assess the patient's needs. Phone number provided. Conchita Jenkins RN Pt's Bg called. She is asking if something more can be done for the patient. She stated that she is concerned about the patient because he is losing weight, sleeping a lot, not talking - disengaged. She stated that this has been happening for the last couple of weeks. He is acting like he is depressed. She stated that she put pt on vegan diet after watching a special by Dr. Eduard Ibrahim and his 5 year study on AD. We discussed keeping a routine and engaging the pt with activities. 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 We discussed more structure, if possible. I educated her about what the decline that occurs. We discussed making a sooner appointment than a new pt appt with Paula Barry in March. I explained that she can work with scheduling to make an appointment with Sammi Velarde or Dr. Lee. Spouse is requesting a call back on as the patient will have Mohs surgery tomorrow. documented in this encounter [facility] 12-26-2023 Instructions Ramin Bell LPN - 12/26/2023 10:18 AM EDT WOUND CARE INSTRUCTIONS WITH REMOVABLE SUTURES WOUND CARE: The dressing you have been sent home with is called a pressure dressing. It should remain in place for 48 hours. To care for the wound: Remove pressure dressing after 48 hours. Tip: wet dressing in the shower to assist with adhesive removal. You can remove adhesive with soap, water, or alcohol pad. Clean with gentle soap and water twice daily. If you notice dried blood or scab, please use a small amount of hydrogen peroxide along the suture line Your main form of cleaning will be with soap and water Example of gentle soap: Dove, Dial, CeraVe, Cetaphil, Aveeno, or any non-scented bar of soap After wound is thoroughly cleansed and dried, apply a thick layer of Vaseline or Aquaphor to the suture line. Do NOT use polysporin or neosporin on your wound After 72 hours, may leave uncovered as long as it is kept greasy and won t interfere with clothing. If you need to have stitches removed, please make an appointment to return to the office in 10-12 days. This will be with a nurse only, unless you have been informed otherwise. Signs and symptoms of infection: Redness streaking away from the wound, swelling, new onset of pain, foul smelling drainage, pus, and generalized fevers/chills BLEEDING: Careful attention has been given to your wound to prevent bleeding. The initial dressing you have on is a pressure dressing to also help prevent bleeding. You may notice a small amount of blood on the edges of the dressing the first day; this is normal. In case of persistent bleeding: Apply firm, steady pressure over the dressing with gauze for 20 minutes. If bleeding persists, please apply firm pressure for another 30 minutes. Tip #1: use a timer to record the time of pressure held Tip #2: do not peek at wound until time is completed- this will disrupt clotting time of vessel Tip #3: you may also use ice, as this may aid in slowing any bleeding. If bleeding persists, please call the office using the numbers below. We will instruct you on how to proceed. PAIN: What pain can I expect after surgery? You can expect to have some pain after surgery. This is normal. The pain is typically worse for a day or two after surgery, and quickly begins to get better. Most patients are able to manage their pain after surgery with Wbkd-rkm-Hamhzir (OTC) medications such as Tylenol (acetaminophen) and Motrin/Advil (ibuprofen). If you have a condition that does not allow you to take either of these medications, please notify us immediately. How will I manage my pain? The best strategy for controlling your pain after surgery is around the clock pain control with Tylenol (acetaminophen) and Motrin/Advil (ibuprofen). Alternating these medications with each other allows you to maximize your pain control. In addition to Tylenol and Motrin, you can use ice packs on your incisions for 20 minutes each hour for the first two days after surgery to help reduce your pain and swelling. After the first two days, you may use a heating pad or warm compress on your incisions and surrounding area. If you have received a graft, please *DO NOT* apply ice directly onto the graft site. How will I alternate my regular strength zbov-kmy-suyosta pain medication? You will take a dose of pain medication every four hours while you're awake. Start by taking 200-400 mg of Motrin/Advil (ibuprofen) (1-2 pills of 200 mg) 4 hours later, take 500-1000 mg of Tylenol (acetaminophen) (1-2 pills of 500 mg) 4 hours later, take 200-400 mg of Motrin/Advil (ibuprofen) (1-2 pills of 200 mg) 4 hours later, take 500-1000 mg of Tylenol (acetaminophen) (1-2 pills of 500 mg) 4 hours later, take 200-400 mg of Motrin/Advil (ibuprofen) (1-2 pills of 200 mg) We recommend that you follow this schedule wbqffk-ngb-sqtlf for at least 3 days after surgery, or until you feel that it is no longer needed. As an alternative, you can purchase OTC Advil Dual Action, which is a combined pill containing Acetaminophen 250mg and Ibuprofen 125mg. IMPORTANT: Do not take more than 3000mg of Tylenol (acetaminophen) or 3200mg of Motrin/Advil (ibuprofen) in a 24-hour period. Be aware that some chronic pain medications as well as over the counter cold and flu remedies may also contain acetaminophen. Take this into consideration to avoid exceeding the maximum daily dose. Limit alcohol intake. It is recommended to avoid heavy alcohol intake (more than two standard drinks per day for men and one standard drink for women) after surgery and while taking acetaminophen. Drinking alcohol causes the liver to convert more of the acetaminophen you take into toxic byproducts. Alcohol also acts as a blood thinner and can increase your risk for post-operative bleeding. Continue to take all of your prescribed medication. SWELLING: Swelling after surgery is normal and can peak at 48hr after surgery Suggestion: sleep on 1-2 pillows post procedure for 2-3 days to minimize swelling You can do this if you had a procedure on your face, top of head, ears, jaw, eyes, nose, cheeks, etc. Elevate arms and legs at rest to decrease swelling You can wrap your affected extremity by using FROYLAN wrap, coban wrap, or compression stockings to also minimize swelling Please also use ice packs to decrease swelling. Can use approximately 20 minutes each hour. NOTES: You may shower regularly after your initial surgery dressing is removed Avoid increasing heart rate or blood pressure for the first 72 hours following surgery (increases bleeding risk) Avoid heavy lifting and strenuous activity for 72 hours following surgery Return to referring digital photographer for skin checks every 6 months Wear sunscreen PHONE NUMBERS: Martine contact number: [phone] and ask to be transferred to Dermatology (Sunday-Sunday, 8am-5pm) For emergencies only: On-call number: [phone] and ask for the application development consultant dermatology surgery fellow documented in this encounter [facility] 12-25-2023 Telephone encounter Note Received urgent after hours page from patient. Patient called back. Patient asking if they can eat and drink before their scheduled Mohs procedure tomorrow (12/26/23). Advised patient they may eat and drink as procedure performed under local anaesthetic. Patient understood and will plan for breakfast before scheduled 8AM procedure. [facility] Work Phone: 12-25-2023 Miscellaneous Notes Received urgent after hours page from patient. Patient called back. Patient asking if they can eat and drink before their scheduled Mohs procedure tomorrow (12/26/23). Advised patient they may eat and drink as procedure performed under local anaesthetic. Patient understood and will plan for breakfast before scheduled 8AM procedure. documented in this encounter [facility] 12-25-2023 Telephone encounter Note Patient calling regarding pre op prep questions. Conferenced to [facility] lacquer pin press operator, Susan, to speak with provider application development consultant for Dr. Su Mccrary. Brittnee Thompson LPN [facility] 12-25-2023 Miscellaneous Notes Patient calling regarding pre op prep questions. Conferenced to [facility] lacquer pin press operator, Susan, to speak with provider application development consultant for Dr. Su Mccrary. Brittnee Thompson LPN documented in this encounter [facility] 12-25-2023 History of Present illness Narrative MOHS MICROGRAPHIC OPERATIVE REPORT SERVICE DATE: 12/26/2023 SERVICE TIME: 08 LOCATION: [facility] [id number] [place] [id number] REFERRING PROVIDER: Анна Perez [id number] [address] [facility] [id number] PROCEDURE START TIME: 8:25 AM PROCEDURE END TIME: 11:20 AM SURGEON: Dr. Sammi Mccrary FELLOW: Bib Saucedo MD LICENSED PRACTICAL NURSE: Ramin Bell LPN ANTICOAGULANTS: ASA IMPLANTED DEVICES: None ANTIBIOTIC PROPHYLAXIS: Not required TRANSPLANT PATIENT: No PHOTOS: Photos taken VERIFICATION OF PROCEDURE: Procedure to be Performed: Mohs Surgery Patient Verified By: Name and Date of Site(s) Confirmed: Patient confirmed site from image in the EMR. Patient pointed to site(s). Patient identified site in photo(s) taken during consult or preprocedure then signed photo. Patient verbalized agreement of surgical site(s). Site(s) Marked: Provider marking the site with patient involvement. Relevant documentation, images, implants or special equipment present: Yes SIGN IN COMMUNICATION: Completed Time Out: Team Confirms the Correct Patient, Correct Procedure, Correct Site(s) and Site Marked, Correct Position (if applicable). Time: 8:25 AM Affirmation of Time Out: Yes Sign out Discussion: Completed UNIVERSAL PROTOCOL / SAFETY CHECKLIST Procedure to be Performed: Mohs Surgery. Sign In: A Moment of CARE was completed. Personnel directly involved with the procedure wore the appropriate PPE (Personal Protective Equipment). No special equipment needed. Patient/Surrogate Stated/Verified: PATIENT VERIFIED(optional for EMERGENT procedures): Patient name, Date of , Relevant allergies, and The intended procedure Time Out Communication: Intended patient and procedure match the source documents. Consent documented and matches the intended procedure. Relevant labs, photos, and/or imaging studies have been reviewed. Correct side/site marked and visible. Medications required for procedure verified. Fire risk assessed and interventions discussed. No implant(s) inserted. Sign Out: SIGN OUT (optional for EMERGENT procedures): All specimen containers correctly labeled. All instruments, equipment, possible retained foreign bodies accounted for. Post-procedure follow-up management communicated and Plan of Care Visit completed when applicable. 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 Tumor Type: Primary Path Report Available at Bedside: Inside pathology report # [id number] Pre-op Size: Greater than 2 cm, (3.7 cm X 1.7 cm) Lymphadenopathy: None Indication for Mohs: Proven difficulty with skin cancers, Type of tumor, Age of patient, Size, and Ill-defined borders Location: Area L: (Includes Trunk and Extremities - Excluding Pretibial Surface, Hands, Feet, Nail Units and Ankles) Preparation: Chlorhexidine LAYER A The patient was positioned, prepped with alcohol and draped in the usual manner. Anesthesia was obtained with local infiltration. The clinically apparent tumor was then debulked with a curette. A 1-2 mm rim of tissue was marked circumferentially around the defect. The area thus outlined was excised deep to the subcutis. Hemostasis was achieved with electrocautery. The specimen was oriented, subdivided into 4 sections, chromacoded and submitted for horizontal frozen sections. The patient tolerated the procedure well and no complications were noted. Upon review of the horizontal frozen sections for Layer A(A1,A2, A3 & A4), no residual tumor was identified .A1, A2, A3 and A4 are negative. A4 with actinic keratosis ACTINIC KERATOSIS: Within the epidermis is a partial-thickness proliferation of atypical keratinocytes with sparse mitoses. The overlying stratum corneum demonstrates minimal parakeratosis. No invasion is noted. CLOSURE Rationale for Primary Closure: Given the location and size of the defect and in order to minimize the pain, bleeding, and infection associated with second intention healing, the wound was closed with a primary linear closure. Diagnosis: Surgical defect secondary to Mohs micrographic surgery on a Primary tumor type from Left Forearm Anterior. (location of tumor). Post-op Defect Size: 4.1 cm x 2.6 cm INTERMEDIATE CLOSURE: Requiring skin and subcutaneous fat. The beveled edge of the Mohs defect was surgically removed. The wound edges were undermined in all directions to decrease the tension of the wound and facilitate skin edge apposition. Meticulous hemostasis was achieved with electrocautery. Redundant standing cones were removed to allow the wound to be closed without distortion. The deep tissue were opposed with 4-0 Absorbable Absorbant sutures. The epidermal edges were opposed with 5-0 Non absorbable sutures. The surgical site was cleansed with saline and covered with a bandage as below. The patient tolerated the procedure well and no complications were noted. Final Size: Linear closure - 8.5 cm SCC Staging 8th Edition AJCC Risk Factors: No risk factors Final stage T1 Tumor equal to or less than 2 cm in greatest dimension with no high-risk factors based on the 8th edition AJCC guidelines for non-ocular SCC of head and neck. [facility] Risk Factors: tumor diameter greater than or equal to 2 cm Final stage T2a - 1 high-risk factor. Based on the [facility] guidelines. LOCAL ANESTHETIC: 12 cc 1% Lidocaine HCl with Epinephrine 1:100,000 ESTIMATED BLOOD LOSS: Less Than Minimal Unless Noted Here. COMPLICATIONS: None, patient tolerated procedure well. TOTAL OPERATIVE TIME: 175 Minutes POST OP MEDS: Tylenol 500 mg every 4-6 hours as needed for pain relief POST OP CARE: Pressure Dressing applied consisting of Contact Layer: Petrolatum ointment and Non stick Telfa pad Absorbent Layer: Gauze pad Outer Layer: Coban wrap MOHS POST OP INSTRUCTIONS GIVEN WITH VERBAL UNDERSTANDING: Yes PATIENT DISCHARGED TO PROJECT MANAGER PROCESS DEVELOPMENT/NAME: self and spouse Bg. FOLLOW UP: Return for suture removal in 10-12 days The documentation for this note was completed by Ramin Bell LPN acting as scribe for Sammi Jessica MD. December 26, 2023 10:17 AM. Bib Saucedo MD served as a fellow in this procedure, assisted in procurement of layer(s), assisted in final repair Fellow assisted in the closure, under direct supervision and the remainder of the procedure was performed by the primary surgeon/proceduralist with assistance. I have seen and examined Tere Linsey Barone. I have discussed the case and the management of this patient's care with the Fellow. I also have reviewed and agree with the assessment and plan as stated above and agree with all of its relevant components. I was present for and supervised the procedures as documented above by the Fellow. I was physically present during the critical portion(s) of this procedure. I agree with the operative note independently gathered by the clinical production support manager and the remaining scribed note accurately describes my personal service to the patient. I/primary surgeon/proceduralist reviewed the specimen(s) and worked as the pathologist. Sammi Jessica MD December 26, 2023 documented in this encounter [facility] 12-25-2023 Telephone encounter Note Pt's Bg called. She is asking if something more can be done for the patient. She stated that she is concerned about the patient because he is losing weight, sleeping a lot, not talking - disengaged. She stated that this has been happening for the last couple of weeks. He is acting like he is depressed. She stated that she put pt on vegan diet after watching a special by Dr. Eduard Ibrahim and his 5 year study on AD. We discussed keeping a routine and engaging the pt with activities. 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 We discussed more structure, if possible. I educated her about what the decline that occurs. We discussed making a sooner appointment than a new pt appt with Paula Barry in March. I explained that she can work with scheduling to make an appointment with Sammi Velarde or Dr. Lee. Spouse is requesting a call back on as the patient will have Mohs surgery tomorrow. [facility] 12-17-2023 Instructions Camille Benitez APRN.RHONDA - 12/17/2023 4:48 PM EDT Images from the original note were not included. Acute Cervical Radiculopathy (Arm Pain) Overview: The symptoms of a pinched nerve in the neck (cervical radiculopathy) include arm pain, numbness, tingling and even weakness. Arm pain is usually worse than neck pain. The cause of the nerve impingement may include a protruding (herniated) disc, bony or joint overgrowth or both. The prognosis for full recovery with conservative (non surgical) treatment is good in most persons. Xrays or scans (MR or CT) are not required in most patients before starting treatment. Treatment: Pain-relieving anti-inflammatory medications such as ibuprofen or naproxen are recommended. Acetominophen (Tylenol) is recommended if you cannot take anti-inflammatory medications. If muscle spasm is present, a muscle relaxant for up to 2 weeks may be helpful. Medications effective for nerve pain such as gabapentin (Neurontin), pregabalin (Lyrica) or some antidepressants may be helpful for arm pain. A short course of oral steroids (prednisone or Medrol) may help alleviate severe, acute inflammation. Simple home exercises are recommended to speed recovery, relieve arm and neck pain and restore normal neck motion. A physical therapist may be helpful in customizing these exercises. Remaining as active as possible and resuming normal activities as tolerated is recommended. Spinal manipulation is not recommend for cervical radiculopathy and rarely causes severe injury. Follow up: See your health care provider if: The pain doesn t improve or worsens within 2 weeks You notice increasing weakness in the arm You notice difficulty using your hands (buttoning, picking up coins) You experience problems with balance or walking You notice difficulty passing your urine or controlling your bowels You notice numbness or tingling in below your waist or in your legs Camille Benitez APRN.RHONDA Tere Barone, [id number] December 17, 2023 documented in this encounter [facility] 12-17-2023 History of Present illness Narrative Images from the original note were not included. [facility] PATIENT NAME: Tere Barone DATE OF : 1950 TODAYS' DATE: 12/17/2023 Subjective: Mr. Barone is a 73 year old male Patient presents with: Pain (Shoulder Pain) History of Present Illness: The history is provided by the patient. No supervisor home economics was used. Pain (Shoulder Pain) This is a new problem. The current episode started in the past 7 days (2 days ago). The problem occurs constantly. The problem has been unchanged. Associated symptoms include weakness (in right hand due to pain). Pertinent negatives include no arthralgias, joint swelling, myalgias, nausea, neck pain, rash or vomiting. Exacerbated by: movement of arm. He has tried heat and NSAIDs (& icy hot & voltaren gel) for the symptoms. The treatment provided no relief. Went golfing last week- unsure if related. Otherwise NKI. Pain radiates from right upper back/shoulder down his arm. Feels some weakness in his right hand due to the pain. Pain makes it hard to fall asleep at night. The pain worsens with specific movements. Review of Systems: Review of Systems Respiratory: Negative. Cardiovascular: Negative. Gastrointestinal: Negative for nausea and vomiting. Musculoskeletal: Negative for arthralgias, back pain, gait problem, joint swelling, myalgias, neck pain and neck stiffness. Right shoulder/arm pain Skin: Negative for color change, pallor, rash and wound. Neurological: Positive for weakness (in right hand due to pain). Allergies: Allergies: No Known Allergies Past Medical History: PAST MEDICAL HISTORY Diagnosis Date Alcohol abuse 04/18/2022 Carpal tunnel syndrome of left wrist Carpal tunnel syndrome on right COVID-19 08/03/2021 Dependence on nicotine from cigarettes Elevated troponin 07/23/2021 Essential hypertension 08/03/2021 Frequent falls 08/03/2021 Mixed hyperlipidemia Multiple falls 08/04/2021 Nicotine use disorder, F17.2 Osteoarthritis Pseudophakia of left eye 09/2012 Sleep apnea Spinal stenosis Syncope 07/23/2021 Thoracic or lumbosacral neuritis or radiculitis, unspecified Type 2 diabetes mellitus with hyperglycemia (HCC) 08/03/2021 Past Surgical History: PAST SURGICAL HISTORY Procedure Laterality Date ARTHRD ANT INTERBODY MIN DSC LUMBAR 1988 NEUROPLASTY &/TRANSPOS MEDIAN NRV CARPAL TUNNE 2009 Carpal tunnel decomp Lt. XCAPSL CTRC RMVL INSJ IO LENS PROSTH W/O ECP 09/2012 Cataract Extraction with PC IOL left Family History: FAMILY HISTORY Problem Relation Age of Onset Diabetes Mother Heart Mother Hypertension Mother Stroke Mother Cataract Mother Glaucoma Mother Macular Degen Father Cancer Sister Parkinsonism Sister Asthma Sister Headache Brother Cancer Brother Heart Attack Brother Tobacco History: Tobacco Use: .25 packs/day, for 20 years. Types: Cigarettes Medications: Current Outpatient Medications Medication Sig Dispense Refill methylPREDNISolone (MEDROL, CHRISTEN,) 4 mg Dose-Pack Take as instructed per package. 21 tablet 0 tiZANidine (ZANAFLEX) 2 mg tablet Take 1-2 tablets by mouth two times a day as needed. 6 tablet 0 metoprolol succinate ER (TOPROL XL) 25 mg 24 hr tablet Take 1 tablet by mouth once daily. 90 tablet 3 memantine (NAMENDA) 10 mg tablet Take 1 tablet by mouth two times a day. Patient should start on November 23, 2023. 60 tablet 3 semaglutide (RYBELSUS) 14 mg tablet Take 1 tablet (14 mg) by mouth daily before breakfast. 90 tablet 3 metFORMIN ER (GLUCOPHAGE XR) 500 mg 24 hr tablet Take 2 tablets by mouth two times a day with meals. 360 tablet 3 furosemide (LASIX) 20 mg tablet Take 1 tablet by mouth once daily. 90 tablet 3 potassium chloride (K-TAB) 10 mEq tablet Take 1 tablet by mouth once daily. 90 tablet 3 losartan (COZAAR) 25 mg tablet Take 1 tablet by mouth once daily. 90 tablet 3 aspirin 81 mg chewable tablet CHEW AND SWALLOW 1 (ONE) TABLET EVERY DAY 30 tablet 2 cyanocobalamin (VITAMIN B-12) 1,000 mcg tab Take 1 tablet by mouth once daily. B Complex-Folic Acid (B COMPLEX 1, WITH FOLIC ACID,) 0.4 mg tab Take 1 tablet by mouth once daily. 30 tablet 5 atorvastatin (LIPITOR) 80 mg tablet Take 1 tablet by mouth daily at bedtime. 90 tablet 3 thiamine (VITAMIN B1) 100 mg tablet 100 mg once daily. Cholecalciferol, Vitamin D3, 25 mcg (1,000 unit) cap Take 1,000 Units by mouth once daily. UNILET LANCET 28 gauge 20 Units twice daily. (Patient not taking: Reported on 11/08/2023) acetaminophen (TYLENOL) 325 mg tablet Take 1-2 tablets by mouth every 6 hours as needed for pain or fever (specify). Current Facility-Administered Medications Medication Dose Route Frequency Provider Last Rate Last Admin perflutren lipid microspheres 1.3 mL in NaCl (PF) 0.9% 10 mL injection (DEFINITY) INTRAVENOUS DIRECTED PRN Priscilla Salas MD sodium chloride 0.9 % (flush) 10 mL (BD POSIFLUSH) 10 mL INTRAVENOUS DIRECTED PRN Priscilla Salas MD Vitals: BP 134/80 Pulse 67 Temp 36.7 C (98 F) (Left Tympanic) Resp 16 Wt 97.1 kg (214 lb) SpO2 99% BMI 30.40 kg/m Physical Exam: Physical Exam Vitals reviewed. Constitutional: General: He is not in acute distress. Appearance: Normal appearance. He is not ill-appearing, toxic-appearing or diaphoretic. Cardiovascular: Rate and Rhythm: Normal rate. Pulmonary: Effort: Pulmonary effort is normal. Musculoskeletal: Right shoulder: Tenderness present. No swelling, deformity, effusion, laceration or crepitus. Decreased range of motion (secondary to pain). Normal strength. Normal pulse. Right upper arm: Normal. Right elbow: Normal. Right forearm: Normal. Right wrist: Normal. Right hand: Normal. Skin: General: Skin is warm and dry. Capillary Refill: Capillary refill takes less than 2 seconds. Findings: No bruising or erythema. Neurological: General: No focal deficit present. Mental Status: He is alert and oriented to person, place, and time. GCS: GCS eye subscore is 4. GCS verbal subscore is 5. GCS motor subscore is 6. Psychiatric: Mood and Affect: Mood normal. Behavior: Behavior normal. Radiology Review: Last XR Shoulder - Impression Only XR SHOULDER GENERAL 3V OR MORE AP/TRUE AP/OTHER RIGHT Exam End: 12/17/2023 4:31 PM (Final result) Impression: IMPRESSION: No acute osseous abnormality Research Dietitian: MICHELE Transcribe Date/Time: Dec 17 2023 4:33P ... Impression/Plan Encounter Diagnosis ICD-10-CM 1. Acute pain of right shoulder M25.511 XR SHOULDER GENERAL 3V OR MORE AP/TRUE AP/OTHER RIGHT methylPREDNISolone (MEDROL, CHRISTEN,) 4 mg Dose-Pack tiZANidine (ZANAFLEX) 2 mg tablet - Discussed possible radiculopathy? - Will treat with Medrol Dose Pack and Tizanidine. Discussed could see slight elevation of BS while on steroid and to stop if significant increase. Discussed possible drowsiness with tizanidine and to only use as needed. - ROM as tolerated - Discussed Red Flag signs and when to go to ER. - Pt agreeable with plan and verbalizes understanding. - Follow up with PCP if symptoms worsen or do not improve in the next 2-3 days. - Patient discharged without incident, in stable condition. Camille Benitez APRN.CNP 12/17/23 3:59 PM documented in this encounter [facility] 12-17-2023 Telephone encounter Note Yesterday patient started with right shoulder pain Radiates down arm and is having some arm weakness Pain is 7/10 and constant Denies chest pain, SOB, neck pain, redness, swelling Advised patient to be seen within 4 hours at the [facility]; patient agreeable Gave care advice per protocol and advised to call back or go to ED with worsening symptoms; verbalizes understanding Reason for Disposition Weakness (i.e., loss of strength) in hand or fingers (Exception: Not truly weak; hand feels weak because of pain.) Answer Assessment - Initial Assessment Questions 1. ONSET: Yesterday 2. LOCATION: Right shoulder 3. PAIN: 7/10 4. WORK OR EXERCISE: Denies 5. CAUSE: Unknown 6. OTHER SYMPTOMS: Radiates down arm, weakness 7. : NA Protocols used: Shoulder [id number] [facility] 12-17-2023 Miscellaneous Notes Yesterday patient started with right shoulder pain Radiates down arm and is having some arm weakness Pain is 7/10 and constant Denies chest pain, SOB, neck pain, redness, swelling Advised patient to be seen within 4 hours at the [facility]; patient agreeable Gave care advice per protocol and advised to call back or go to ED with worsening symptoms; verbalizes understanding Reason for Disposition Weakness (i.e., loss of strength) in hand or fingers (Exception: Not truly weak; hand feels weak because of pain.) Answer Assessment - Initial Assessment Questions 1. ONSET: Yesterday 2. LOCATION: Right shoulder 3. PAIN: 7/10 4. WORK OR EXERCISE: Denies 5. CAUSE: Unknown 6. OTHER SYMPTOMS: Radiates down arm, weakness 7. : NA Protocols used: Shoulder [id number] documented in this encounter [facility] 12-05-2023 Telephone encounter Note Reschedule 03/18/24 appt. With josue [facility] 12-05-2023 Miscellaneous Notes Reschedule 03/18/24 appt. With josue documented in this encounter [facility] 12-03-2023 History of Present illness Narrative Consultation requested by Dr. Salas for an opinion regarding diabetic foot exam. My final recommendations will be communicated back to the requesting physician by way of shared Medical record or letter to requesting physician via US mail. Initial Office Visit Subjective: This 73 year old male presents to clinic for diabetic foot check. Patient admits to being diabetic for multiple years now. Patient -B/T/N in feet at this time. Patient -pain in legs when walking. No other pedal complaints at this time. No change in medications or medical history since last visit. PAIN EVALUATION No data found in the last 1 encounters. Hemoglobin A1C (%) Date Value 06/21/2023 6.2 07/24/2021 9.7 03/21/2021 7.3 12/14/2020 8.6 Hemoglobin A1C (POCT) (%) Date Value 08/02/2022 7.5 04/04/2022 7.5 12/21/2021 6.2 PCP: Samm Kc DO PAST MEDICAL HISTORY Diagnosis Date Alcohol abuse 04/18/2022 Carpal tunnel syndrome of left wrist Carpal tunnel syndrome on right COVID-19 08/03/2021 Dependence on nicotine from cigarettes Elevated troponin 07/23/2021 Essential hypertension 08/03/2021 Frequent falls 08/03/2021 Mixed hyperlipidemia Multiple falls 08/04/2021 Nicotine use disorder, F17.2 Osteoarthritis Pseudophakia of left eye 09/2012 Sleep apnea Spinal stenosis Syncope 07/23/2021 Thoracic or lumbosacral neuritis or radiculitis, unspecified Type 2 diabetes mellitus with hyperglycemia (HCC) 08/03/2021 Current Outpatient Medications Medication Sig metoprolol succinate ER (TOPROL XL) 25 mg 24 hr tablet Take 1 tablet by mouth once daily. memantine (NAMENDA) 10 mg tablet Take 1 tablet by mouth two times a day. Patient should start on November 23, 2023. semaglutide (RYBELSUS) 14 mg tablet Take 1 tablet (14 mg) by mouth daily before breakfast. metFORMIN ER (GLUCOPHAGE XR) 500 mg 24 hr tablet Take 2 tablets by mouth two times a day with meals. furosemide (LASIX) 20 mg tablet Take 1 tablet by mouth once daily. potassium chloride (K-TAB) 10 mEq tablet Take 1 tablet by mouth once daily. losartan (COZAAR) 25 mg tablet Take 1 tablet by mouth once daily. aspirin 81 mg chewable tablet CHEW AND SWALLOW 1 (ONE) TABLET EVERY DAY cyanocobalamin (VITAMIN B-12) 1,000 mcg tab Take 1 tablet by mouth once daily. B Complex-Folic Acid (B COMPLEX 1, WITH FOLIC ACID,) 0.4 mg tab Take 1 tablet by mouth once daily. atorvastatin (LIPITOR) 80 mg tablet Take 1 tablet by mouth daily at bedtime. thiamine (VITAMIN B1) 100 mg tablet 100 mg once daily. Cholecalciferol, Vitamin D3, 25 mcg (1,000 unit) cap Take 1,000 Units by mouth once daily. UNILET LANCET 28 gauge 20 Units twice daily. (Patient not taking: Reported on 11/08/2023) acetaminophen (TYLENOL) 325 mg tablet Take 1-2 tablets by mouth every 6 hours as needed for pain or fever (specify). Current Facility-Administered Medications Medication Dose Route Frequency perflutren lipid microspheres 1.3 mL in NaCl (PF) 0.9% 10 mL injection (DEFINITY) INTRAVENOUS DIRECTED PRN sodium chloride 0.9 % (flush) 10 mL (BD POSIFLUSH) 10 mL INTRAVENOUS DIRECTED PRN ALLERGIES No Known Allergies PAST SURGICAL HISTORY Procedure Laterality Date ARTHRD ANT INTERBODY MIN DSC LUMBAR 1988 NEUROPLASTY &/TRANSPOS MEDIAN NRV CARPAL TUNNE 2008 Carpal tunnel decomp Lt. XCAPSL CTRC RMVL INSJ IO LENS PROSTH W/O ECP 09/2012 Cataract Extraction with PC IOL left FAMILY HISTORY Problem Relation Age of Onset Diabetes Mother Heart Mother Hypertension Mother Stroke Mother Cataract Mother Glaucoma Mother Macular Degen Father Cancer Sister Parkinsonism Sister Asthma Sister Headache Brother Cancer Brother Heart Attack Brother Social History Tobacco Use Smoking status: Every Day Packs/day: 0.25 Years: 20.00 Additional pack years: 0.00 Total pack years: 5.00 Types: Cigarettes Smokeless tobacco: Never Vaping Use Vaping Use: Never used Substance Use Topics Alcohol use: Not Currently Alcohol/week: 24.0 standard drinks of alcohol Types: 24 Cans of Beer (12oz) per week Drug use: No REVIEW OF SYSTEMS GENERAL: Negative for Malaise, significant weight loss, fever RESPIRATORY: Negative for cough, wheezing and shortness of breath CARDIOVASCULAR: Negative for chest pain, leg swelling and palpitations GI: Negative for abdominal discomfort, blood in stools or black stools and change in bowel habits : Negative for dysuria, frequency and incontinence MUSCULOSKELETAL: Negative for joint pain or swelling, back pain, and muscle pain. SKIN: Negative for lesions, rash, and itching. HEMATOLOGY/LYMPHOLOGY Negative for prolonged bleeding, bruising easily, and swollen nodes. ENDOCRINE: Negative for cold or heat intolerance, polyuria, polydipsia and goiter. NEURO: negative The remainder of the review of systems is noncontributory. Objective: Patient presents to clinic ambulating in [facility] Constitutional: Pt is a well developed 73 year old male who is alert, oriented, cooperative and in no apparent distress. Eyes: Following during examination. No redness or drainage. Respiratory: RR normal and nonlabored. Even breathing. No evidence of distress. Psychology: Patient is engaged during conversation. Normal affect and mood. Does not appear depressed or anxious. Vasc: DP and PT pulses are nonpalpable bilateral. CFT is less than 5 seconds bilateral. Skin temperature is warm to cool proximal to distal bilateral. There is no edema or varicosities noted. Hair growth absent. Neuro: Protective sensation is decreased to the foot and toes when tested with the 5.07 SWM bilateral. Vibratory sensation is absent at the hallux bilateral. + Significant neurological defecits. Derm: Inspection and palpation performed. Nails 1-5 b/l are discolored-yellow, thick, crumbly, dystrophic and with subungal debris. Skin is of normal turgor and texture. Hyperkeratosis/preulcerative callus noted to right hallux ipj. NO ulcerations, scars, verruca or other lesions noted. Ortho: Ankle joint DF is decreaed with the knee extended and decreased with knee flexed. No pain or crepitus noted. STJ, MTJ ROM are full and free of pain or crepitus. Muscle strength is 5/5 for dorsiflexors, plantarflexors, inverters, everters. Assessment: (L84) Callus of foot (primary encounter diagnosis) (B35.1) Onychomycosis (E11.42) Diabetic polyneuropathy associated with type 2 diabetes mellitus (HCC) Plan: 1. Patient was seen and evaluated. 2. Patient was instructed on the continued importance of diabetic foot care along with proper diet and keeping their blood sugar under control to prevent complications. Patient has neuropathy and has pre-ulcerative callus. Stressed the importance of avoiding barefoot walking, wearing good shoes and inspecting feet daily. Discussed diabetic shoes. He elected to contineu with current shoes. Discussed need for smoking cessation. Instructions given both oral and written. 3. Toenails 1-5 b/l debrided in length and thicknes. Q8 modifier. Offered follow-up annually for debridement. He declined. 4. Pre-ulcerative callus debrided with 15 blade and dremmel. Ivan Frederick DPM AMB ROOMING INTAKE FLOWSHEET DATA Patient presents with: Left Foot - New, Diabetic Foot Care Right Foot - New, Diabetic Foot Care Gabbi Alicia LPN documented in this encounter [facility] 11-28-2023 Telephone encounter Note Addressed in original telephone encounter 11/23/23. Анна Perez PA-C November 28, 2023 6:30 PM [facility] Work Phone: 11-28-2023 Miscellaneous Notes Addressed in original telephone encounter 11/23/23. Анна Perez PA-C November 28, 2023 6:30 PM Name of Caller: kavita Relationship to patient: patient's spouse Last visit in this department: 10/31/2023 Reason for Call: Other : stated she was returning perez's call to discuss cream. Callback number: [phone] documented in this encounter [facility] 11-28-2023 Telephone encounter Note Name of Caller: kavita Relationship to patient: patient's spouse Last visit in this department: 10/31/2023 Reason for Call: Other : stated she was returning perez's call to discuss cream. Callback number: [phone] [facility] 11-28-2023 Telephone encounter Note Addressed in original telephone encounter 11/23/23. Анна Perez PA-C November 28, 2023 6:00 PM [facility] Work Phone: 11-28-2023 Miscellaneous Notes Addressed in original telephone encounter 11/23/23. Анна Perez PA-C November 28, 2023 6:00 PM Name of Caller: bg Relationship to patient: patient's spouse Last visit in this department: 10/31/2023 Reason for Call: Other : Pts would like a call back to discuss if radiation cream would be better then having mohs surgery Please call and discuss Callback number: [phone] documented in this encounter [facility] 11-28-2023 Telephone encounter Note Name of Caller: bg Relationship to patient: patient's spouse Last visit in this department: 10/31/2023 Reason for Call: Other : Pts would like a call back to discuss if radiation cream would be better then having mohs surgery Please call and discuss Callback number: [phone] [facility] 11-23-2023 Telephone encounter Note I spoke to patients - bg and let her know that Анна was on vacation and would not be able to return her call until end of next week. Cyndie Case RN [facility] 11-23-2023 Miscellaneous Notes I spoke to patients Nelson pederson and let her know that Анна was on vacation and would not be able to return her call until end of next week. Cyndie Case RN Patients called again asking if Анна Perez can call her regarding message below. Thanks! Name of Caller: Bg Barone Relationship to patient: patient Last visit in this department: 10/31/2023 Reason for Call: Other : Patients Bg called asking what Анна Perez thinks of [facility]. She saw this on TV, some type xray radiation she thinks. She is wondering if that would be better than surgery for patient or should he still get the surgery? He is scheduled for surgery on 12/26/2023 at [facility]. Please call. Thanks! Callback number: [phone] Ivet Cano documented in this encounter [facility] 11-23-2023 Telephone encounter Note Patients called again asking if Анна Perez can call her regarding message below. Thanks! [facility] 11-23-2023 Telephone encounter Note Name of Caller: Bg Elena Relationship to patient: patient Last visit in this department: 10/31/2023 Reason for Call: Other : Patients Bg called asking what Анна Perez thinks of [facility]. She saw this on TV, some type xray radiation she thinks. She is wondering if that would be better than surgery for patient or should he still get the surgery? He is scheduled for surgery on 12/26/2023 at [facility]. Please call. Thanks! Callback number: [phone] Ivet Cano [facility] 11-14-2023 Telephone encounter Note Patient calling, advised RX was sent [facility] 11-14-2023 Miscellaneous Notes Patient calling, advised RX was sent Patient is calling stating they do not what happened to the 90 day RX they just picked 10/10/2023 , she states that bottle is empty. Will provider be able to send another RX that patient will pay out of pocket for?j Bg is not sure what else to do noting that patient needs this medication. Please call with provider response at [phone] Pharmacy is [facility] in [place] on Patient's called to check on status of refill. She was advise again that there should be a valid rx at the pharmacy. She said the pharmacy keeps telling them there is not medication left on his current rx. Would like our office to call the pharmacy to see what the problem is. Please call her back at [phone] when resolved. Prescription Refill Information The patient has been identified by name and date of : Yes Caregiver verified no other encounters exist for this prescription request: Yes Caregiver confirmed with patient/requestor that no other refills are due, in the near future, with this provider at this time: Yes The last office visit in the department: 06/12/23 Does the patient have a future office visit with this provider/department: No Patient was advised that this medication should not be needed until 02/03/24 or approximate. He stated he is out of medication and the Pharmacy told him he has no refills. Requested Prescriptions Pending Prescriptions Disp Refills metoprolol succinate ER (TOPROL XL) 25 mg 24 hr tablet 90 tablet 3 Sig: Take 1 tablet by mouth once daily. Hetal Simpson November 12, 2023 11:40 AM documented in this encounter [facility] 11-14-2023 Telephone encounter Note Patient is calling stating they do not what happened to the 90 day RX they just picked 10/10/2023 , she states that bottle is empty. Will provider be able to send another RX that patient will pay out of pocket for?j , Bg is not sure what else to do noting that patient needs this medication. Please call with provider response at [phone] Pharmacy is [facility] in [place] [facility] 11-14-2023 Telephone encounter Note Patient's called to check on status of refill. She was advise again that there should be a valid rx at the pharmacy. She said the pharmacy keeps telling them there is not medication left on his current rx. Would like our office to call the pharmacy to see what the problem is. Please call her back at [phone] when resolved. [facility] 11-12-2023 Telephone encounter Note RN called [facility] imaging library and spoke to Paulette, she stated that she will send the MRI results through [facility]. Will notify the patient and provider. Conchita Jenkins RN [facility] 11-12-2023 Miscellaneous Notes RN called [facility] imaging library and spoke to Paulette, she stated that she will send the MRI results through [facility]. Will notify the patient and provider. Conchita Jenkins RN Spouse, Bg LVM on [facility] Nurse Line on 11/11 @11:24A. Bg states Dr. Lee requested MRI to be completed. Pt completed at [facility]. They said they sent it electronically on Sunday. Dr. Lee may have to download to get it. Please call back at . Thank you, Karen Msg relayed Okay to take Pt was seen by dr. Lee yesterday and pt was told to call and see if dr. Kc is ok with pt trying namenda. Script was sent for 2 weeks to see if pt tolerates well but spouse was told not to start the medication until dr. Kc says it's ok. Please advise. documented in this encounter [facility] 11-12-2023 Telephone encounter Note Spouse, Bg LVM on [facility] Nurse Line on 11/11 @11:24A. Bg states Dr. Lee requested MRI to be completed. Pt completed at [facility]. They said they sent it electronically on Sunday. Dr. Lee may have to download to get it. Please call back at . Thank you, Karen [facility] 11-12-2023 Telephone encounter Note SPECIALTY CARE COORDINATION FOLLOW-UP NOTE Returned call. Informed that the recommendation per Dr. Corado is repeat colonoscopy in January. They have the option of going later if they choose. She is requesting prep be mailed to home address on file. Margot Navarro RN November 12, 2023 [facility] 11-12-2023 Miscellaneous Notes SPECIALTY CARE COORDINATION FOLLOW-UP NOTE Returned call. Informed that the recommendation per Dr. Corado is repeat colonoscopy in January. They have the option of going later if they choose. She is requesting prep be mailed to home address on file. Margot Navarro RN November 12, 2023 Kavita Ex-Spouse calling back wants to know if March is ok for the scope vs. January like Dr. Corado initially wanted documented in this encounter [facility] 11-12-2023 Telephone encounter Note [phone] Kavita Ex-Spouse calling back wants to know if March is ok for the scope vs. January like Dr. Corado initially wanted [facility] 11-12-2023 Telephone encounter Note Prescription Refill Information The patient has been identified by name and date of : Yes Caregiver verified no other encounters exist for this prescription request: Yes Caregiver confirmed with patient/requestor that no other refills are due, in the near future, with this provider at this time: Yes The last office visit in the department: 06/12/23 Does the patient have a future office visit with this provider/department: No Patient was advised that this medication should not be needed until 02/03/24 or approximate. He stated he is out of medication and the Pharmacy told him he has no refills. Requested Prescriptions Pending Prescriptions Disp Refills metoprolol succinate ER (TOPROL XL) 25 mg 24 hr tablet 90 tablet 3 Sig: Take 1 tablet by mouth once daily. Hetal Simpson November 12, 2023 11:40 AM [facility] 11-12-2023 Telephone encounter Note RN called spouse back, informed her that we do not have the records showing up yet in their chart but sometimes it may take 24-48 hours. Advised the spouse to call [facility] to make sure that they sent them to us electronically. We will let her know once we get them. Conchita Jenkins RN [facility] 11-12-2023 Miscellaneous Notes RN called spouse back, informed her that we do not have the records showing up yet in their chart but sometimes it may take 24-48 hours. Advised the spouse to call [facility] to make sure that they sent them to us electronically. We will let her know once we get them. Conchita Jenkins RN Spouse, Bg ELDER on [facility] Nurse Line on 11/08 @ 3:34P. Pt name and verified 1950. Spouse states pt was here the other day. Bg checked with [facility] and records will be sent electronically. Please let me know if you got it. Best contact is: . Thank you, Karen documented in this encounter [facility] 11-09-2023 Telephone encounter Note Spouse, Bg ELDER on [facility] Nurse Line on 11/08 @ 3:34P. Pt name and verified 1950. Spouse states pt was here the other day. Bg checked with [facility] and records will be sent electronically. Please let me know if you got it. Best contact is: . Thank you, Karen [facility] 11-09-2023 Telephone encounter Note SPECIALTY CARE COORDINATION FOLLOW-UP NOTE Returned call. Left detailed vm that she may need to choose a different location to have colonoscopy as availability may be different in different locations ([facility], [facility]). Office number provided to discuss prep Margot Navarro RN November 09, 2023 [facility] 11-09-2023 Miscellaneous Notes SPECIALTY CARE COORDINATION FOLLOW-UP NOTE Returned call. Left detailed vm that she may need to choose a different location to have colonoscopy as availability may be different in different locations ([facility], [facility]). Office number provided to discuss prep Margot Navarro RN November 09, 2023 Kavita Was not able to schedule another colonoscopy until March. States Dr. Corado told her she wanted the patient to follow up again in January for another scope. Ex-spouse also wanted to go over prep again does not remember what they did before and wanted clarification. documented in this encounter [facility] 11-09-2023 Telephone encounter Note [phone] Kavita Was not able to schedule another colonoscopy until March. States Dr. Corado told her she wanted the patient to follow up again in January for another scope. Ex-spouse also wanted to go over prep again does not remember what they did before and wanted clarification. [facility] 11-09-2023 Telephone encounter Note Msg relayed [facility] 11-09-2023 Telephone encounter Note Okay to take [facility] 11-09-2023 Telephone encounter Note Pt was seen by dr. Lee yesterday and pt was told to call and see if dr. Kc is ok with pt trying namenda. Script was sent for 2 weeks to see if pt tolerates well but spouse was told not to start the medication until dr. cK says it's ok. Please advise. [facility] 11-08-2023 Instructions Taiwo Lee MD - 11/08/2023 11:26 AM EDT I prescribed Memantine (Namenda). Memantine (Namenda) can help improve the mental state and daily functioning of some people with memory loss. There is a beneficial effect of memantine for patients with moderate to severe Alzheimer disease on cognition and functional decline. I emphasized that Memantine does not cure the memory loss. I will start treatment at 5 mg once per day with gradual increase as follows: First and second week: One tablet (5mg) in am and 5 mg in pm Third week and after : One tablet (10mg) twice a day. More common side effects include: Confusion, constipation, hallucinations, headache, high blood pressure, pain, sleepiness. If any develop or change in intensity of side effect, they will contact us and stop the medication. Please provide us with a disc of imaging done in [facility] or ask them to upload in our system if they can. Cognitive Rehabilitation We believe that Justin may benefit from cognitive rehabilitation. This is a therapy that is designed to teach compensatory strategies and use organizational systems to improve day-to-day function. To schedule call Rehabilitation [facility] Sports Therapy: [phone]. Below is a provider located near your home: (Not all-inclusive list) ROBERT Marcus -- [facility] We would like you to follow with a provider after you started this medication. I understand you prefer a closer office and you will make appointment with Dr Kc within the next 2-3 months documented in this encounter [facility] 11-08-2023 History of Present illness Narrative Images from the original note were not included. Tere Linsey Elena 1950 [id number] [place] [id number] November 08, 2023 Time: 11:12 AM FOLLOW-UP NOTE Accompanied by: spouse SUBJECTIVE Tere Barone is a 73 year old year old male seen today for mixed dementia: He is here today for follow up. Previous evaluation noted: This is a 72 year old male who presented with memory concerns per his . Brief cognitive testing revealed deficits in visuospatial skills, language, and delayed recall. Requires assistance with: finances and driving (patient with hx of 3 DUIs). That raises concern for dementia. It is possibly multifactorial giving his long standing history of alcohol consumption ( 42 per week), a neurodegenerative condition such as Alzheimer's disease. The multiple head trauma could have bene contributing as well. -Counseled on the avoidance of alcohol and starting OTC B12 due to low B12 level -Counseled on physically, socially and cognitively healthy lifestyle Since the last visit, they report no change in symptoms or new complaints. He is taken off insuline. From last visit: They did not follow on any suggestion form last visit. No follow up post stroke, Imagingw as not requested form [place]. Ms Barone is concerned why he doenst talk much to her. He doenst drink anymore but he smokes heavily. They continue Aspirin. Dementia Severity Rating Scale (DSRS) 11/08/2023 DSRS Person completing Bg Live with participant? Yes Contact with participant 5 or more days per week Relationship to participant Spouse Memory 3 Speech and Language 5 Recognition of Family Members 0 Orientation to Time [address] 0 Ability to Make Decisions 1 Social and Community Activity 4 Home Activities and Responsibilities 0 Personal Care - Cleanliness 0 Eating 0 PAST MEDICAL HISTORY Diagnosis Date Alcohol abuse 04/18/2022 Carpal tunnel syndrome of left wrist Carpal tunnel syndrome on right COVID-19 08/03/2021 Dependence on nicotine from cigarettes Elevated troponin 07/23/2021 Essential hypertension 08/03/2021 Frequent falls 08/03/2021 Mixed hyperlipidemia Multiple falls 08/04/2021 Nicotine use disorder, F17.2 Osteoarthritis Pseudophakia of left eye 09/2012 Sleep apnea Spinal stenosis Syncope 07/23/2021 Thoracic or lumbosacral neuritis or radiculitis, unspecified Type 2 diabetes mellitus with hyperglycemia (HCC) 08/03/2021 SOCIAL HISTORY Social History Tobacco Use Smoking status: Every Day Packs/day: 0.25 Years: 20.00 Additional pack years: 0.00 Total pack years: 5.00 Types: Cigarettes Smokeless tobacco: Never Vaping Use Vaping Use: Never used Substance Use Topics Alcohol use: Not Currently Alcohol/week: 24.0 standard drinks of alcohol Types: 24 Cans of Beer (12oz) per week Drug use: No Social History reviewed by Taiwo Lee MD Cognitive Exam: 01/30/2023 11/08/2023 [facility] MOCA TOTAL SCORE 19 17 out of 30 30 Vital Signs: BP 131/76 (BP Site: Left Arm, BP Position: Sitting, BP Cuff Size: Large Adult) Pulse 69 Wt 97.1 kg (214 lb 1.1 oz) BMI 30.41 kg/m ASSESSMENT & PLAN: Pleasant 73 year old year old male with mixed dementia (mild stage) I prescribed Memantine (Namenda). First and second week: One tablet (5mg) in am and 5 mg in pm Third week and after : One tablet (10mg) twice a day. Advised to provide us with a disc of imaging done in [facility] or ask them to upload in our system if they can. Cognitive Rehabilitation We believe that Justin may benefit from cognitive rehabilitation. This is a therapy that is designed to teach compensatory strategies and use organizational systems to improve day-to-day function. We would like you to follow with a provider after you started this medication. I understand he prefers a closer office and he will make appointment with Dr Kc within the next 2-3 months I spent a total of 30 minutes on the date of service which included preparing to see the patient, [id number] patient care, performing a medically appropriate examination, completing clinical documentation, and on counseling/ eductaing the patient and the family. Taiwo Lee MD CC: 1. Samm Kc DO, (fax) [phone] Patient-Reported No data to display PROMIS-10 No data to display PHQ-9 01/30/2023 10/10/2022 PHQ-9 All Questions Little interest or pleasure in doing things 0 0 Feeling down, depressed, or hopeless 0 0 Trouble falling or staying asleep, or sleeping too much 0 Feeling tired or having little energy 0 Poor appetite or overeating 0 Feeling bad about yourself - or that you are a failure or have let yourself or your family down 0 Trouble concentrating on things, such as reading the newspaper or watching television 0 Moving or speaking so slowly that other people could have noticed. Or the opposite - being so fidgety or restless that you have been moving around a lot more than usual 0 Thoughts that you would be better off , or of hurting yourself in some way 0 PHQ-9 Score 0 (0-4) minimal depression (5-9) mild depression (10-14) moderate depression (15-19) moderately severe depression (20-27) severe depression Full History of PHQ-9 Scores PHQ-9 Score 01/30/2023 0 01/28/2019 8 06/13/2018 3 02/26/2018 5 10/01/2017 3 07/10/2017 3 11/14/2016 4 05/23/2016 5 10/05/2015 3 04/29/2015 6 Sleep No data to display No data to display Caregiver-Reported No data to display documented in this encounter [facility] 11-08-2023 Nurse Note Tere Barone is a 73 year old year old man accompanied by: Spouse. Do you have any changes or new concerns you would like to address at the visit today? Patient offers no new changes or concerns. Vital Signs: BP 131/76 (BP Site: Left Arm, BP Position: Sitting, BP Cuff Size: Large Adult) Pulse 69 Wt 97.1 kg (214 lb 1.1 oz) BMI 30.41 kg/m Zoe Brito MA [facility] 11-08-2023 Nurse Note Tere Barone is a 73 year old year old man accompanied by: Spouse. Do you have any changes or new concerns you would like to address at the visit today? Patient offers no new changes or concerns. Vital Signs: BP 131/76 (BP Site: Left Arm, BP Position: Sitting, BP Cuff Size: Large Adult) Pulse 69 Wt 97.1 kg (214 lb 1.1 oz) BMI 30.41 kg/m Zoe Brito MA documented in this encounter [facility] 11-02-2023 Telephone encounter Note It was the [facility]'s triage nurse who will try to get in touch with him again. Fabi GEE, RN [facility] 11-02-2023 Miscellaneous Notes It was the Moh's triage nurse who will try to get in touch with him again. Fabi GEE, RN Name of Caller: Bg Barone Relationship to patient: patient's spouse Last visit in this department: 10/31/2023 Reason for Call: Please call Bg. She said patient thought a nurse was trying to schedule him for a surgery on his arm in [place] next week. She wants to be sure and get information for patient. Thanks! Callback number: [phone] Ivet Cano Patient aware of diagnosis and treatment per provider notes. Mohs per Dr. Peacock PROCEDURE & TIME REQUIRED Mohs Micrographic surgery: AUC: 7 Mohs surgery preoperative scoring for BCC and SCC (for scheduling): Lesion 1 1. Where is the lesion located? Other location (1 points) A. Skin, left forearm - anterior, shave biopsy: - Squamous cell carcinoma in situ. 2. Is the lesion a recurrent tumor?Unknown (0 points) 3. Does the tumor have an aggressive histologic subtype? (micronodular or infiltrative BCC, moderate or poorly differentiated SCC) No (0 points) 4. Lesion size 2.5 x 0.9 cm 2.1-4 cm (2 points) Total Points for Lesion: 3 If 2 lesions are close together and done on the same day add 1 point. Total points: 3 If score is 3 or higher, schedule in AM Mohs slots only If score is 5 or higher, please hold 2 Mohs surgery slots For every 4 additional points hold an additional slot If the lesion has 6 or greater number of pieces please schedule at location where 2 histotechs are located. Please include total points in the appointment visit notes. Derm time required: one slot and AM Approved by: Angeles Valerio RN Schedule with: First Available Location: Pt preference Photos in Get Images Call placed to patient, aware of results below. [phone] FINAL DIAGNOSIS A. Skin, left forearm - anterior, shave biopsy: - Squamous cell carcinoma in situ. Recommended treatment: Mohs (per Derm Surg staff) Size: 2.5 x 0.9 cm AUC: 7 Follow up full body skin check with me in the near future. Recommend full body skin examination every 6 months for at least 2 years after initial non-melanoma skin cancer diagnosis. Will route to Mohs team for scheduling procedure. Will route to [facility] schedulers for scheduling Full Body Skin Check with me. Thank you, Анна Perez PA-C documented in this encounter [facility] 11-02-2023 Telephone encounter Note Name of Caller: Bg Barone Relationship to patient: patient's spouse Last visit in this department: 10/31/2023 Reason for Call: Please call Bg. She said patient thought a nurse was trying to schedule him for a surgery on his arm in [place] next week. She wants to be sure and get information for patient. Thanks! Callback number: [phone] Ivet Cano [facility] 11-02-2023 Telephone encounter Note Patient aware of diagnosis and treatment per provider notes. Mohs per Dr. Peacokc PROCEDURE & TIME REQUIRED Mohs Micrographic surgery: AUC: 7 Mohs surgery preoperative scoring for BCC and SCC (for scheduling): Lesion 1 1. Where is the lesion located? Other location (1 points) A. Skin, left forearm - anterior, shave biopsy: - Squamous cell carcinoma in situ. 2. Is the lesion a recurrent tumor?Unknown (0 points) 3. Does the tumor have an aggressive histologic subtype? (micronodular or infiltrative BCC, moderate or poorly differentiated SCC) No (0 points) 4. Lesion size 2.5 x 0.9 cm 2.1-4 cm (2 points) Total Points for Lesion: 3 If 2 lesions are close together and done on the same day add 1 point. Total points: 3 If score is 3 or higher, schedule in AM Mohs slots only If score is 5 or higher, please hold 2 Mohs surgery slots For every 4 additional points hold an additional slot If the lesion has 6 or greater number of pieces please schedule at location where 2 histotechs are located. Please include total points in the appointment visit notes. Derm time required: one slot and AM Approved by: Angeles Valerio RN Schedule with: First Available Location: Pt preference Photos in Get Images [facility] 11-01-2023 Telephone encounter Note Call placed to patient, aware of results below. [phone] FINAL DIAGNOSIS A. Skin, left forearm - anterior, shave biopsy: - Squamous cell carcinoma in situ. Recommended treatment: Mohs (per Derm Surg staff) Size: 2.5 x 0.9 cm AUC: 7 Follow up full body skin check with me in the near future. Recommend full body skin examination every 6 months for at least 2 years after initial non-melanoma skin cancer diagnosis. Will route to Mohs team for scheduling procedure. Will route to MD schedulers for scheduling Full Body Skin Check with me. Thank you, Анна Perez PA-C [facility] 10-31-2023 Instructions Cyndie Case RN - 10/31/2023 2:16 PM EDT CARE FOR YOUR BIOPSY SITE Please follow these instructions for daily wound care: Keep the area clean and dry with the bandage in place the day of the procedure. Wash the area every day with gentle soap and water. You may shower, but do NOT soak in a bathtub, hot tub, pool, florez, or etc. until after the wound has healed. Apply a thin layer of Vaseline or Aquaphor to the wound site to keep the area slightly greasy at all time (this helps to prevent scabbing). Studies show that wounds heal better when covered with ointment and a dressing. DO NOT USE NEOSPORIN, BACITRACIN, or other similar products as there is a fairly high incidence of allergic response to these products. Please also AVOID an old tub of ointment as this can introduce germs into your wound and cause infection. Cover with a bandage and continue this daily process until the wound is healed. If you experience any bleeding, please apply pressure to the area for approximately 10 minutes. You may experience some mild discomfort, redness, swelling, and/or a clear discharge from the wound after your procedure. Severe pain, worsening swelling, and foul-smelling discharge from the site are NOT to be expected. Biopsy results can take up to a week, we will contact you accordingly, either via [employer] or telephone call. If you have any questions or concerns, please send your provider a Z[employer]YX message or contact the [facility] office at [phone]. documented in this encounter [facility] 10-31-2023 History of Present illness Narrative NEW PATIENT 10/31/2023 Consultation requested by Samm Kc DO for an opinion regarding the evaluation and treatment of Skin lesion [L98.9]. My final recommendations will be communicated back to the requesting provider by way of shared medical record or letter via [place] mail. Last Visit in Dermatology: Visit date not found IMPRESSION / ASSESSMENT & PLAN 1. Neoplasm of skin Left Forearm - Anterior 2.5 x 0.9 cm erythematous scaly plaque SKIN / NAIL BIOPSY Type of biopsy: tangential Informed consent: discussed and consent obtained Informed consent comment: Risks, benefits, and alternatives discussed. Timeout: patient name, date of , surgical site, and procedure verified Procedure prep: Patient was prepped and draped in usual sterile fashion Prep type: Isopropyl alcohol Anesthesia: the lesion was anesthetized in a standard fashion Anesthetic: 1% lidocaine w/ epinephrine 1-100,000 local infiltration Instrument used: DermaBlade Hemostasis achieved with: aluminum chloride Outcome: patient tolerated procedure well Post-procedure details: sterile dressing applied and wound care instructions given Dressing type: petrolatum and bandage Additional details: Shave biopsy to establish and confirm diagnosis. Photos in Get Images. Specimen A - Surgical Pathology r/o NMSC shave biopsy UNIVERSAL PROTOCOL / SAFETY CHECKLIST Procedure to be Performed: shave biopsy Sign In: A Moment of CARE was completed. Personnel directly involved with the procedure wore the appropriate PPE (Personal Protective Equipment). Patient/Surrogate Stated/Verified: PATIENT VERIFIED(optional for EMERGENT procedures): Patient name, Date of , Relevant allergies, and The intended procedure Time Out Communication: Intended patient and procedure match the source documents. Consent documented and matches the intended procedure. Correct side/site marked and visible. Sign Out: SIGN OUT (optional for EMERGENT procedures): All specimen containers correctly labeled. All instruments, equipment, possible retained foreign bodies accounted for. Cyndie Case RN Follow Up: Pending Pathology Return PRN or sooner for questions and concerns. SUBJECTIVE Chief Complaint: LESION, SKIN HPI: Tere Barone is a 73 year old male. Patient presents with: LESION, SKIN # Lesion of Concern Location: left forearm Duration: many years Symptoms/Course: flat, red/pink, enlarging; denies pain or itching Current Treatment: None Past Treatment: None Declines FBSE today. Accompanied by Bg. Pertinent Dermatologic History: History of skin cancer: No History of atypical nevi: No History of blistering sunburns / extensive sun exposure: Yes History of tanning bed use: Yes Pertinent Medical History: Organ Transplant / Immunosuppression: No Pacemaker / Defibrillator / Heart Valve Replacement: No Pertinent Family History: Family history of skin cancer: No Past Medical History Reviewed. Medications Reviewed. Allergies Reviewed. ROS: Skin: As per HPI. Constitutional: Denies fever, chills, unintentional weight loss. PHYSICAL EXAM: Wooten Skin Type: II Pleasant male in no apparent distress. Alert and oriented x 3. Appears well developed, well nourished, and in otherwise good health. Appropriate mood and affect. A skin exam of the bilateral forearms was performed, with pertinent findings as noted below. Attestation The documentation for this note was completed by Cyndie Case RN acting as scribe for Анна Perez PA-C. Electronically Signed: Cyndie Case RN on October 31, 2023 2:05 PM. I agree with the Chief Complaint, ROS, and Past Histories independently gathered by the clinical production support manager and the remaining scribed note accurately describes my personal service to the patient. Electronically Signed: Анна Perez PA-C on October 31, 2023 2:20 PM. Анна Perez PA-C Department of Dermatology documented in this encounter [facility] 09-28-2023 Miscellaneous Notes Pt is scheduled for all appts. Pt's , Анна, was informed. Please assist with scheduling. Orders placed please notify patient Patient's spouse calling today asking for 3 referrals: Chief Nuclear Medicine Technologist (patient does not like his current doctor) Neurologist specializing in dementia. Also asking for a dermatology referral. Please return call to [facility] [phone] documented in this encounter [facility] 09-28-2023 Miscellaneous Notes Called and informed that the order was placed for the colonoscopy and he would just need to call and schedule. [phone] calling to get new order for a colonoscopy. Was told to repeat in 6 months from his last one. documented in this encounter [facility] 09-10-2023 Miscellaneous Notes Advised patient of message below; verbalizes understanding Vm left on kavita's vm as no vm on pt mobile available Recommend he discuss with his GI provider who completed the procedure. Have him send her a mychart with his questions. thanks Pt to schedule in 6 months. Please advise re pathology of polyps from colonoscopy. thanks ----- Message from Samm Kc DO sent at 09/08/2023 11:34 PM EDT ----- Please call and notify patient he is due for a colonoscopy again in 6 months. ----- Message ----- From: Lise Corado MD, PhD Sent: 09/05/2023 9:21 AM EDT To: Samm Kc DO I tried calling him multiple times. He needs to repeat a scope in 6 months. documented in this encounter [facility] 09-05-2023 Miscellaneous Notes Late entry. 2 attempts made to call the patiens about repeat colonoscopy and pathology result without response. Results communicated with PCP. documented in this encounter [facility] 08-23-2023 History of Present illness Narrative POPULATION HEALTH NAVIGATION OUTREACH Action/SANDEEP johnson Patient due for the following: Annual medicare wellness exam Diabetic Eye Exam Due Reason for Outreach Care Gap/HCC or Scheduling Wellness Visits Care Gaps due: Medicare Annual Wellness Visit Diabetic Eye Exam Patient Contacted: Unable or unnecessary to reach patient: Left message HCC related Navigation Signature: Soni Oneil Population Health NavigatorPELON August 23, 2023 3:15 PM documented in this encounter [facility] 08-17-2023 Miscellaneous Notes Msg relayed with understanding Left message to call office. Please advise: Recommendation: - Await pathology results. - Repeat colonoscopy in 6 months for surveillance. - Hemorrhoids found on perianal exam. - One 15 mm polyp in the rectum, removed with a hot snare. Resected and retrieved. - One 30 mm polyp in the sigmoid colon, removed with a cold snare. Resected and retrieved. - Five 21 mm polyps in the sigmoid colon, removed with a cold snare. Resected and retrieved. - One 2 mm polyp in the descending colon, removed with a cold snare. Resected and retrieved. Justin is calling Samm Kc DO today with concern regarding Results Colonoscopy 08-09-23 Patient has been identified by name and birthdate. Duration of symptoms: N/A Person calling: spouse: Bg Call patient at: at home [phone] (home) [phone] (cell) Was an appointment scheduled: No Closing statement: Results or non-symptom based questions: Thank you for calling [facility], your call will be returned within the next business day. Argentina Simpson documented in this encounter [facility] 08-09-2023 History and physical note HISTORY AND PHYSICAL UPDATE EVALUATION DATE: 08/09/2023 EVALUATION TIME: 9:28 AM PHYSICAL EXAM MUST BE COMPLETED ON ADMISSION The History and Physical (completed in the past 30 days) has been reviewed and the patient has been examined. The contents accurately reflect the patient's condition with the following additions or revisions since the H&P was completed. Examination indicates no changes This H&P can be found in the attached. SIGNATURE: Lise Corado MD, PhD PATIENT NAME: Tere Barone DATE: August 09, 2023 TIME: 9:28 AM [facility] 08-09-2023 History and physical note HISTORY AND PHYSICAL UPDATE EVALUATION DATE: 08/09/2023 EVALUATION TIME: 9:28 AM PHYSICAL EXAM MUST BE COMPLETED ON ADMISSION The History and Physical (completed in the past 30 days) has been reviewed and the patient has been examined. The contents accurately reflect the patient's condition with the following additions or revisions since the H&P was completed. Examination indicates no changes This H&P can be found in the attached. SIGNATURE: Lise Corado MD, PhD PATIENT NAME: Tere Barone DATE: August 09, 2023 TIME: 9:28 AM documented in this encounter [facility] 08-01-2023 Miscellaneous Notes Advised Bg of message below; verbalizes understanding Stop 1 week prior to scope and restart after procedure Patient's asking if patient should stop his aspirin prior to his colonoscopy on ? Please call Bg back documented in this encounter [facility] 08-01-2023 Miscellaneous Notes Spoke with Tere Barone on August 01, 2023. Informed of results / instructions as stated above. Roma Edmond Ma Patient's has talked to RN, PELON, and PSS and has been given all the same information. She is asking once again about Aspirin doses and we did not prescribe it. She was advised to call . CLOSED Relayed message below; carefully to the spouse several times; she will write it down. Asked if she has questions or needs the nurse to call and she still wants to speak to a nurse. Please call her back. Called and left a message on the 's VM at [phone] to call the office. Please give the message below. Hold metformin the AM of procedure. Resume later in the day once eating. Start holding rybelsus a week before the procedure and resume 3 days after . Thank you Patient's is calling because patient is having a colonscopy on 08/09/23 and want to know what medications they are to take and not to take. Patient takes Metformin ER 500mg 2 tabs BID and Rybelsus 14mg daily. Please review and advise. documented in this encounter [facility] 07-24-2023 Miscellaneous Notes Images from the original note were not included. Miralax/Gatorade/Dulcolax PREP INSTRUCTIONS (over the counter, no prescription required) Someone will contact you, from the surgery center, between 1-4pm the business day before your procedure. Please disregard any times given to you from MyChart or Text messaging as these times may be incorrect. If you have any questions about this time call the surgery center at [phone]. PLEASE CALL MARISA WITH ANY QUESTIONS ABOUT THE PREP Sunday-Sunday 8:00am-3:30pm QUESTIONS ABOUT ARRIVAL TIME: [phone] QUESTIONS ABOUT PREP: [phone] Sunday-Sunday (8AM-330PM) NEED TO RESCHEDULE: [phone] TRANSPORTATION A responsible adult (friend or family member) must drive you home after your colonoscopy. The medication given during the procedure may cause drowsiness, making it unsafe for you to drive or operate machinery. You cannot use an Uber or ride service unless you have a responsible adult with you. IF YOU DO NOT FOLLOW THESE DIRECTIONS, YOUR COLONOSCOPY WILL BE CANCELLED. Please read over these instructions as we will be in touch with you to review this information and answer any questions you may have. You will receive a call from the surgical center the day before your procedure to confirm your arrival time. BOWEL PREPARATION To complete a successful colonoscopy, the bowel must be clean so that the physician can clearly view the colon. It is very important that you read and follow all of the instructions given for your bowel preparation well in advance of the procedure. Without proper preparation, the colonoscopy will not be successful and the test may have to be canceled or repeated. Medications IF YOU ARE ON BLOOD THINNERS PLEASE READ THIS: It is common to have biopsies completed or polyps removed while having a colonoscopy or endoscopy. Because of this, you may need to be off of blood thinning medications for a time period before the procedure. Blood thinning medications include: Aspirin 325mg Plavix (Clopidogrel) Coumadin (Warfarin) Eliquis (Apixiban) Xarelto (Rivaroxaban) Ticlid (Ticlopidine) Arixtra (Fondaparinux) Pradaxa (Dabigatran etexilate) Pletal (Cilostazol) Brilinta (Ticagrelor) Effient (Prasugrel) Lovenox (Enoxaparin) It is your responsibility to contact the doctor that prescribes these medications to confirm if the medication needs to be held and if so, for how long prior to the procedure. Please call as soon as possible to give your doctor time to get back to you. Failure to stop taking blood thinning medications may result in cancellation of your procedure. IF YOU TAKE MEDICATIONS FOR DIABETES PLEASE READ THIS: Please reach out to the doctor that prescribes your diabetic medications to get instruction on how to take these medications during the fasting and prep days prior to your colonoscopy. Please contact the doctor, as soon as possible, to give them time to get back to you. If you are taking a GLP-1 Agonist, such as Trulicity (Dulaglutide), Byetta/Bydureon (Exenatide), Victoza/Saxenda (Liraglutide), Ozempic/Wegovy (Semaglutide), or Mounjaro (Tirzepatide), Please contact the doctor that prescribes these medications to see if it is acceptable to stop the medication for 7 days prior to your endoscopy procedure. Thank you. 5 DAYS BEFORE YOUR COLONOSCOPY Do not take bulk-forming agents (such as Metamucil, Citrucel or other fiber supplements). Stop taking iron-containing preparations such as multi-vitamins containing iron. Stop taking fish oil/Vitamin E supplements Do not take medications that stop diarrhea (Immodium) Purchase preparation items. 3 DAYS BEFORE YOUR COLONOSCOPY Do NOT eat high fiber foods such as popcorn, beans, seeds (flax, sunflower, and quinoa), multigrain bread, salad, nuts, oatmeal, high-fiber cereal, fruits, and vegetables with skin/seeds. You MAY have white rice, pasta, and bread, eggs, meat/fish, creamy nut butter, jelly (no seeds), applesauce, mashed potato (no peel), etc. PREPARATION ITEMS - over the counter, purchased at local pharmacy 4 Dulcolax tablets. Use of generic Bisacodyl 5mg is acceptable. 1 (8.3 oz.) bottle of Miralax. Use of generic Polyethylene Glycol is acceptable. 64 oz. of Gatorade (avoid red, blue or purple colored flavors) Individual responses to the bowel preparation medication may vary. In general, shortly after finishing the preparation you will begin to eliminate brownish color fluids. With each elimination, the fluids will become client account representative in color. After approximately 3 hours, the fluids you eliminate will be clear. One (1) Day Before Your Colonoscopy Only drink clear liquids the ENTIRE DAY before your colonoscopy. Do NOT eat any solid foods. Drink at least 8 ounces of clear liquids every hour after waking up. The clear liquids you can drink include: Clear Liquid (NO RED LIQUIDS) DO NOT DRINK Gatorade, Pedialyte or Powerade Clear broth or bouillon Coffee or tea (without milk or creamer) Carbonated and non-carbonated soft drinks Tye-Aid or other fruit flavored drinks Apple or white grape juice Jell-O, popsicles, hard candy Water Alcohol Milk or non-dairy creamers Noodles or vegetables in soup Juice with pulp Liquid you cannot see through TO MAKE SOLUTION: Mix 8.3 oz of Miralax in 64 oz of Gatorade. Do not mix the solution more than 24 hours before use. At 3:00 PM take 4 Dulcolax (Bisacodyl) tablets. At 6:00 PM begin drinking the 1st 32 oz of Gatorade/Miralax mixed solution Drink 8 oz. every 15 minutes until gone. If you are scheduled to arrive before 10am, complete the remaining 32 oz the evening before (8 oz. Every 15 minutes) OR you can wake up to finish the 2nd half (32oz) of the Miralax/Gatorade solution 4 1/2 hours before your colonoscopy arrival time (8 oz every 15 minutes). If you are scheduled to arrive after 10am, begin drinking the 2nd half (32oz) of the Miralax/Gatorade solution at 4 1/2 hours before your colonoscopy arrival time, 8 oz. every 15 minutes, until gone. ON THE DAY OF YOUR COLONOSCOPY You may drink clear liquids until 3 hours before arrival time You may experience skin irritation around the anus due to the passage of liquid stools. In order to prevent and treat skin irritation, you should: Apply Vaseline or Desitin ointment to the skin around the anus before drinking the bowel preparation medications; these products can be purchased at any drug store. Wipe the skin after each bowel movement with disposable wet wipes instead of toilet paper. These are found in the toilet paper area of the store. Sit in a bathtub filled with warm water for 10-15 minutes after you finish passing a stool. After soaking, blot the skin dry with a soft clean cloth. Apply Vaseline or Desitin ointment to the anal area, and place a cotton ball just outside your anus to absorb leaking fluid. documented in this encounter [facility] 05-22-2023 Miscellaneous Notes Addended by: SAMM KC on: 05/22/2023 01:01 PM Modules accepted: Orders The following approved medication requests have been transmitted electronically. Requested Prescriptions Signed Prescriptions Disp Refills losartan (COZAAR) 25 mg tablet 90 tablet 3 Sig: Take 1 tablet by mouth once daily. Samm Kc DO Call from spouse who reports that patient has been mistakenly taking 25 mg of Losartan daily instead of 12.5 mg daily. Does not know how long has been taking incorrect dose. Denies lightheadedness, dizziness, but has no BP monitor at home. Only has 6 days of losartan left. Will need new Rx. Sent to [facility]. Agreeable to PCP Follow-up appointment 06/12/23. Please review and advise. Reason for Disposition [1] DOUBLE DOSE (an extra dose or lesser amount) of prescription drug AND [2] NO symptoms (Exception: A double dose of antibiotics.) Answer Assessment - Initial Assessment Questions 1. NAME of MEDICINE: Losartan 2. QUESTION: Has been taking 25 mg of Loasartan instead of 12.5 mg of losartan for an unknown length of time. 3. PRESCRIBER: PCP 4. SYMPTOMS: denies 5. : N/a Protocols used: Medication Question [id number] documented in this encounter [facility] 04-18-2023 Miscellaneous Notes The following approved medication requests have been transmitted electronically. Requested Prescriptions Pending Prescriptions Disp Refills aspirin 81 mg chewable tablet 30 tablet 2 Sig: CHEW AND SWALLOW 1 (ONE) TABLET EVERY DAY Samm Kc DO Patient electronically sent a request for the following prescription(s) Requested Prescriptions Pending Prescriptions Disp Refills aspirin 81 mg chewable tablet 30 tablet 2 Sig: CHEW AND SWALLOW 1 (ONE) TABLET EVERY DAY Patient aware RX will be sent to pharmacy. No need to notify patient. JENNIFER: 10/10/22. NOV: 05/25/23. Please review. Grayson Alicia MA documented in this encounter [facility] 02-19-2023 Miscellaneous Notes Spoke with patient appointment set for 05-25-2023 at 1:30 PM for Migdalia Knapp ----- Message from Roma Edmond Ma sent at 02/01/2023 2:23 PM EDT ----- Please call patient and schedule 3 month f/u with Migdalia Knapp and 6 month f/u with . documented in this encounter [facility] 02-08-2023 Miscellaneous Notes Called and spoke to patient. Notified patient of message below. Verbalized understanding. No further questions at this time. Stated he will schedule with SW. Attempted to call patient, no answer. Left voicemail to call office back in regards to message below. Please also review tele encounter from 02/02/23 Images from the original note were not included. Samm Kc DO Tousi, Babak, MD; [facility] 12 hours ago (8:39 PM) Thank you for the heads up. Brittney, can we make sure that Justin gets a neuro follow up with or CC in the next month? Thank you Images from the original note were not included. Taiwo Lee MD Crocker, Debra, RN; Samm Kc DO [address] Kc,. I saw Mr Barone for his dementia and cognitive changes at the [facility]. This is not a general neurology practice or follow up after stroke and I am not neurologist. I had not access to his [facility] records other than one initial assessment from care everywhere. I advised him to resume Aspirin as the patient after stroke usually receives dual therapy for 21 days. And continue with Aspirin. We gathered the patient was given plavix for 21. I would be surprised if [facility] did not suggest a follow up with neurology after discharge or patient might have missed it.. Either way they need to follow with stroke team at [facility] or Clinic. If they make appointment with the Clinic stroke team, they need imaging and some data from [facility]. I called Mr Pendleton today and put message and he wrote it down. But Bg ex was unavailable. Best regards Taiwo Would have to review the notes before giving additional info. May want him on DAPT (plavix/aspirin) for multiple months based on the indication. I defer to his neuro team that saw him. Patient's calling in stating that patient had a mini stroke on 12/20/22. He was treated at [facility]. She will ask then to send scans results to Dr. Kc. He was given 21 days of Plavix. She is asking if he shouldn't be taking asprin 81 mg. He was told be neurology that he should be taking a B Complex vitamin and B12 1000 mcg. She states that he is currently only taking B1, even though B12 and B complex are on his med list. documented in this encounter [facility] 02-08-2023 Miscellaneous Notes Called and spoke to patient. Notified patient of message below. Verbalized understanding. No further questions at this time. Attempted to call patient, no answer. Left voicemail to call office back in regards to message below. Please also review tele encounter from 02/01/23 Attempted to call patient, no answer. Left voicemail to call office back in regards to message below. Orders placed please notify patient Please advise if patient should be on medication. Patient's requesting RX for metoprolol. Not sure if patient is still on the medication, Dr. Kc was last to fill. documented in this encounter [facility] 01-30-2023 Instructions Angeles Plata LISW - 01/30/2023 2:15 PM EDT Dear MrBonifacio & Mrs. Barone, Our team had the pleasure of seeing you today at [facility]. We reviewed your evaluation of memory, mood and overall functioning. We discussed the testing we completed. We use a tool called the MOCA (Jayme Cognitive Assessment). This is a brief tool to measure cognitive function. Your score was 19/30. Normal range is 26/30. Our brief cognitive testing revealed inefficiency in visuospatial skills, planning tasks, retrieval of memories and words, attention, and delayed recall (short-term memory after 2 minutes). Prior MRI showed shrinkage in the memory center of the brain and vascular changes. If it has not affected your daily living, we call it mild cognitive impairment or MCI. If it has affected you to a point you are requiring assistance, we would consider it early stage dementia. The cause is possibly mixed-due to history of head trauma, alcohol use, vascular changes, and possibly neurodegenerative disease such as Alzheimer's. Vitamin B-12 We discussed that your vitamin B level was low. We recommend taking Vitamin B12 1000 mcg daily. This can be found over the counter at your local drug store. Medication Management We recommend working together with a loved one on medication management and using a pill box. Request for Medical Records We would like to review the brain imaging done in December 2022 at [facility]. The imaging disk can be mailed to: [facility] Attention: Dr. Maravilla [address] [place] [address] Medical Alert System We recommend utilizing a Medical Alert System to increase safety in the home. In the event of a fall or an emergency, help is available at the push of a button. Some options for this are: Bharath Watch: Call or visit https://Triplify/ & click on Seniors tab -Mobile System. -Fall detection. -Medication reminders. -GPS monitoring. -Aiden fencing option for wandering. -Checks heart rate, blood pressure, temperature, and oxygen levels. -Worn as a wristband. Life Alert: Call or visit www.Makers Alley -Offers home based and mobile system. -Offers a push button for the shower. -Comes in a lanyard. Lifefone: Call or visit www.Locality.Scooters -Home based or mobile system. -Fall detection. -GPS detects location of emergency. -Water proof. -Worn as a lanyard, wristband, or offers a push button. Lifeline: Call or visit www.Ecrebo -Home based & mobile system. -Fall detection. -GPS detects location of the emergency. -Water resistant; can be worn in the shower. -Worn as a wristband or lanyard. Lively: Call or visit www.Fididel/medical-alerts -Offers mobile systems. -Offers fall detection. -Comes in a lanyard. Also compatible with Saiguo. Medical Alert: Call or visit www.Mamaherb -Offers home based & mobile system. -Mobile system offers GPS monitoring. -Fall detection for all systems. -Systems can be worn in the bath or shower. -Two way speaker allows you to communicate with a trained response specialist who will determine who to contact for help (family, friends, or emergency responders). -Comes in a lanyard or wristband. Medical Guardian: Call or visit www.medicalguEyesquadnSimplicita Software -Offers home based and mobile system. -GPS tracking for mobile system. -Water resistant, not water proof. -Worn as a lanyard or wristband. Mobile Help: Call or visit www.FastConnect -Offers home based & mobile system. -Comes in a lanyard or small mobile device. UnaliWear: Call or visit www.getFound.ie -Home based and mobile system. -Fall detection. -GPS detects location of the emergency. -Water resistant; can be worn in the shower. -Medication reminders. -Worn as a wristband. Insurance companies may offer their own medical alert system for a fee. Below are questions to ask when selecting a Medical Alert System: Do I need a home based or mobile system (used for active individuals)? Do I want a monitored (01/01 access to emergency team) or non-monitored (calls a friend or family member) system? Does the device offer fall detection? If so what is the cost? What is the activation fee? What is the monthly fee? What is the cost of the device? Is a contract required? Are there fees to cancel the service? Is the device water proof? Can it be worn in the shower? Advance Directives As per our discussion of advanced directives, we encouraged you to complete the forms for durable power of compliance attorney regarding both health care and finance along with completion of a living will document. Education & Support for Memory Changes When an individual experiences memory changes, no matter how mild or severe, we encourage individuals and families to educate themselves, learn communication tips, and ways to adjust expectations over time. There are many resources available online. The Alzheimer's Association (web site: alz.org/kaur) An organization that provides education and support to individuals/caregivers affected by memory loss, Alzheimer's disease, and all forms of dementia. Available 24 hours a day, 7 days per week. Contact: Local: ; Toll free: [phone] Caregiver [facility] (web site: Caregiver.org) NOLAN Palacio-- a secure online solution for quality information, support, and resources for family caregivers. Contact: Toll-free number: [phone] Grief Support [facility] for all ages offered at: [address] [place] [address] Call or visit [email or web address] and Follow Up We would like you to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 K Antagonist (VKA) Therapeutic Range: INR 2 to 3 (Target INR of 2.5) Note: For patients treated with VKA drugs, such as warfarin, the [place] [employer] 2012 Guideline recommends a therapeutic INR range of 2 to 3 (target INR of 2.5). This recommendation includes high-risk patients with antiphospholipid syndrome with previous arterial or venous thromboembolism, current-generation mechanical or bioprosthetic aortic heart valve replacement. Note: Patients with mechanical aortic valve replacement and additional risk factors for thromboembolic events (atrial fibrillation, previous thromboembolism, LV dysfunction, hypercoagulable conditions) or an older generation mechanical AVR (i.e., ball in-Cage) or any mechanical MVR should have a INR therapeutic range of 2.5 to 3.5 (target INR of 3). Barbara GH, et al. Chest 2012, 141:7S-47S Adalberto RA, et al. [facility] 2017, 70: 252-289 Cardiovascular Testing: I reviewed personally. US CAROTID BILAT: 07/23/21 1. RIGHT ICA: 30-49% stenosis 2. LEFT ICA: <30% stenosis CTA NECK W IVCON: 07/23/21 No acute intracranial or extracranial large vessel occlusion. Approximately 80% stenosis of the proximal right ICA and 30% stenosis of the left proximal ICA by NASCET criteria. Additional mild intracranial extracranial stenoses as detailed. Ascending aortic ectasia, measuring 4.1cm. Moderate cervical spondylosis with foraminal stenoses as discussed. EK08/03/2021 NORMAL SINUS RHYTHM INFERIOR INFARCT. POSSIBLE ANTERIOR INFARCT. ECHO: 08/03/21 - Exam indication: syncope - The left ventricle is mildly dilated. Left ventricular systolic function is mildly decreased. EF = 44 5%. - The right ventricle is normal in size. - The left atrial cavity is mildly dilated. - The right atrial cavity is dilated. - The visualized aorta is dilated with a maximal dimension of 4.5 cm. US SCREENING FOR AAA 04/16/2022 No evidence of abdominal aortic aneurysm US CAROTID BILAT 10/25/2021 The stenosis estimation in the right ICA based on peak systolic velocity is 50-69%, and based on end-diastolic velocity and ICA/CCA ratio is 70-99% by NASCET criteria. Grayscale, color Doppler aliasing, and post stenotic waveforms support these findings. No hemodynamically significant flow velocities identified and stenosis estimate in left ICA is 1-29% by NASCET criteria. The bilateral CCAs, and ECAs are unremarkable. Vertebral arteries exhibit antegrade flow. The subclavian artery waveforms are unremarkable bilaterally. US CAROTID BILAT 01/25/2022 moderate right carotid stenosis, stable. No hemodynamically significant left carotid stenosis NM CARDIAC PERF STRESS/PHARM 09/22/2021 1. SPECT Perfusion Study: Abnormal. 2. There is no scintigraphic evidence for inducible ischemia. 3. There is a moderate (10-20%) fixed perfusion defect in the RCA territory. 4. Left ventricle is normal in size. The left ventricle systolic function is moderately decreased. 5. This is an intermediate risk scan due to area of scar / ischemia. EKG 12/15/2022 showed sinus with poor with first-degree atrioventricular block R wave progression and inferior myocardial infarction IMPRESSION / RECOMMENDATIONS / PLAN: Encounter Diagnosis ICD-10-CM 1. Essential hypertension I10 2. Cardiomyopathy, ischemic I25.5 3. Mixed hyperlipidemia E78.2 4. Tobacco use disorder F17.200 5. Alcohol abuse F10.10 6. Obesity, Class I, BMI 30-34.9 E66.9 7. Stenosis of right carotid artery I65.21 HTN with ascending aortic root dilatation of 4.5 cm. Blood pressure is adequately controlled today. Continue losartan 25 mg daily. I will repeat a 2D echocardiogram to assess the ascending aortic root and in future if necessary get an MRI of the aorta and myocardium. Continue 25 mg metoprolol succinate daily. Previous ECG from 08/03/21 indicates evidence of prior inferior/anterior infarcts. Ischemic Cardiomyopathy with ejection fraction of 44% was noted on the echocardiogram in July 2021 and his EKG also showed Q waves in the inferior and anterior leads. Stress test showed there is a moderate (10-20%) fixed perfusion defect in the RCA. Continue monitoring as he remains asymptomatic. However if he becomes angina equivalent symptoms or angina then he would need heart catheterization for further work-up. Hyperlipidemia: Continue atorvastatin 80 mg daily. Moderate Right sided Carotid artery stenosis was noted on the carotid doppler. Patient has some alteration and decreased mentation. I ordered an MRA Carotid with IV contrast. Altered mental status?. It appears either he may be developing Parkinson's dementia with gait problems resulting in falls or autonomic dysfunction from diabetes. Continue to follow up with neurology. Tobacco abuse. patient is counseled for 3 to 4 minutes about this and I counseled him to discontinue smoking completely. I offered pharmacological therapy, acupuncture counseling with psychotherapy but patient was not willing to proceed with an any of these options at this. Follow-up: in 6 months with me in the office or sooner as needed Priscilla Salas MD [facility], Dept of Medicine, [facility]. [employer] Boss of Cardiac Catheterization laboratory [facility]. Clinical Asst. pole frame construction worker. [facility] of Medicine. Staff Ski Topper, Heart [facility] [place]. Chloe Bal Department of Cardiovascular Medicine. [facility]. [id number], [address] [place] [address] documented in this encounter [facility] 11-13-2022 History of Present illness Narrative POPULATION HEALTH NAVIGATION OUTREACH Action/FYI Return in about 6 months (around 04/12/2023). Cologuard ordered 04/12/2022 SANDHYA due since 06/16/2022 UACR ordered 09/26/2022 Line rings with no answer/no machine No active mychart HM Due letter sent Patient Identified by Name and : NO Outreach Outcome/Action Unable to reach patient: no answer/no machine Letter mailed Did you use a PCP flex slot to schedule this appointment? N/A Reason for Outreach Care Gap or Scheduling/Wellness visits Payer: Payor: [employer] MEDICARE / Plan: [employer]pleshow / Product Type: HMO / Care Gap Reviewed:: Follow-up appointment Colorectal Cancer Screening Diabetic Eye Exam Nephropathy (Albumin/Creatinine) Urine Reminder: Reminder note to check Health Maintenance for items below Health Maintenance items due: URINE ALBUMIN:CREATININE RATIO Never done DTAP,TDAP,TD(1 - Tdap) Never done COLORECTAL CANCER SCREENING Never done SHINGRIX VACCINE(1 of 2) Never done DILATED RETINAL EXAM due on 06/16/2022 LDL CHOLESTEROL due on 07/23/2022 Navigation Signature: Herminia Delgado MA November 13, 2022 9:19 AM documented in this encounter [facility] 10-23-2022 History of Present illness Narrative Head [facility] Ne[facility] [place] AUDIOLOGIC EVALUATION REPORT Name: Tere Barone [facility]#: [id number] Date of Service: 10/23/2022 Date of : 1950 Age: [age] year old Referred by: Samm Kc DO [id number] [id number] Referred for: Evaluation of suspected change in hearing, tinnitus, or balance. Referral documented: In an order in [facility] Patient's major complaints: Reduced hearing in both ears Justin Barone is a 72 year old male who presents with hearing issues. He reports that his complains that he doesn't hear well though he doesn't perceive a problem. He denies ear pain, drainage, dizziness, noise exposure or tinnitus. Tere Barone was seen for an initial audiologic evaluation. See SmartForm Audiogram for additional reported history and symptoms. Risk of Falls Documentation for over 65 years old: No history of falls reported so minimal to no risk IMPRESSIONS RIGHT EAR: Sensorineural hearing loss consistent with presbycusis LEFT EAR: Sensorineural hearing loss consistent with presbycusis Comparison of today's results with previous test results : No previous results available AUDIOLOGIC EVALUATION Following is a brief interpretation of the obtained findings from the audiologic evaluation. Refer to the Auditory Test Record for complete audiometric results. The patient was counseled about the test findings and appropriate audiologic recommendations were made. SUMMARY: Audiogram can be viewed under Forms/Audiology/SmartForm. OTOSCOPY RIGHT EAR: Otoscopic inspection revealed ear canal was clear with an identifiable cone of light. LEFT EAR: Otoscopic inspection revealed ear canal was clear with an identifiable cone of light. TYMPANOMETRY Description of procedure: This test is an objective evaluation of middle ear function. CPT code: 34259 RIGHT EAR: Normal ME function. LEFT EAR: Normal ME function. ACOUSTIC REFLEXES Description of procedure: This test is an objective measure of auditory and facial nerve pathways. CPT code: 24992, 87333 RIGHT EAR PROBE EAR: (ipsi right stimulus ear; contralateral left stimulus ear): Acoustic Reflex Pattern Did not test Acoustic Reflex Decay (left stimulus ear): Did not test. LEFT EAR PROBE EAR: (ipsi left stimulus ear; contralateral right stimulus ear): Acoustic Reflex Pattern Did not test Acoustic Reflex Decay (right stimulus ear):Did not test. PURE TONE AUDIOMETRY AND SPEECH TESTING Description of procedure: This test is an objective evaluation hearing sensitivity via air and bone conduction and speech recognition testing. CPT code:36745 RIGHT EAR: Hearing Sensitivity: Normal hearing sensitivity from 250-2000 Hz precipitously sloping to a moderately severe sensorineural loss at 3000 Hz to a severe sensorineural loss at 4000 Hz and a profound unspecified loss at 8000 Hz. Word Recognition Score: Excellent (90-100%). WRS is better than expected given hearing sensitivity. Words were presented at 65 dB HL approximates (45-55 dB HL) intensity level for average conversational speech. The NU-6 Word List (25 words) was used. and Contralateral masking was used. LEFT EAR: Hearing Sensitivity: Normal hearing sensitivity from 250-2000 Hz precipitously sloping to a moderately severe sensorineural loss at 3000 Hz and a severe sensorineural loss from 9912-3672 Hz. Word Recognition Score: Excellent (90-100%). WRS is better than expected given hearing sensitivity. Words were presented at 65 dB HL which is above (greater than or equal to 60 dB HL) intensity level for average conversational speech. The NU-6 Word List (25 words) was used. and Contralateral masking was used. SPEECH IN NOISE TESTING Description of Procedure: A primary concern of individuals with hearing complaints is difficulty understanding speech, especially in the presence of background noise. Performance in background noise was assessed using the QuickSIN. Two lists of six sentences with five leo words per sentence were presented in four-talker babble noise in each condition (i.e., right ear, left ear, binaural). Testing was completed at 70 dB HL. An averaged SNR Loss was calculated for each condition, which allows for comparison to an individual with normal hearing. CPT code: 27326. Procedure time: 10-15 minutes. RIGHT EAR: 5 dB SNR loss indicating Mild (3-7 dB) degree of SNR loss. LEFT EAR: 11 dB SNR loss indicating Moderate (7-15 dB) degree of SNR loss. BINAURAL: 7 dB SNR loss indicating Mild (3-7 dB) degree of SNR loss. RECOMMENDATIONS * Continue medical follow-up with Samm Kc DO, as needed. * Return if a change in hearing is noted. * The patient was counseled regarding effective communication strategies to enhance communication ability. Aleks Hyatt, [facility] Abbrev- iation Definition Degree of hearing sensitivity dB range WNL within normal limits WNL 0 - 20 SNHL sensorineural hearing loss Mild 20-40 CHL conductive hearing loss Moderate 40-55 MHL mixed hearing loss Moderately-Severe 55-70 WRS word recognition score Severe 70-90 ME middle ear Profound 90 + TM tympanic membrane documented in this encounter [facility] 09-22-2022 History of Present illness Narrative CC: ED follow up S: 72 year old male with history below presents for ED follow up. Notes reviewed- had of 340 which brought him to the ED. Sees endocrinology regularly. BG was rising all day Sunday last week. No changes in his diet. Currently BG's are low. BG is 121 at 4:49 PM. No recent infections. Cannot remember any changes to his daily regimen. Hemoglobin A1C (%) Date Value 07/24/2021 9.7 03/21/2021 7.3 Hemoglobin A1C (POCT) (%) Date Value 08/02/2022 7.5 04/04/2022 7.5 ) is concerned about patient's memory Patient stays in a dark room all day and watches TV Wondering whether there is testing for Alzheimer's available for the patient to complete Patient is also having trouble hearing at times according to his . He asks her to repeat herself often when she says things to them. Patient was scratched by his new puppy on his right hand. washed the area and put Neosporin and a Band-Aid on. Would like this evaluated today. Component Latest Ref Rng & Units 08/02/2022 09/16/2022 09/16/2022 09/16/2022 09/16/2022 8:06 PM 8:37 PM 10:14 PM 10:15 PM WBC 3.70 - 11.00 k/uL 9.08 RBC 4.20 - 6.00 m/uL 4.86 Hemoglobin 13.0 - 17.0 g/dL 14.6 Hematocrit 39.0 - 51.0 % 44.6 MCV 80.0 - 100.0 fL 91.8 MCH 26.0 - 34.0 pg 30.0 MCHC 30.5 - 36.0 g/dL 32.7 RDW-CV 11.5 - 15.0 % 12.7 Platelet Count 150 - 400 k/uL 220 MPV 9.0 - 12.7 fL 9.8 Neut% % 51.4 Abs Neut (ANC) 1.45 - 7.50 k/uL 4.66 Lymph% % 37.8 Abs Lymph 1.00 - 4.00 k/uL 3.43 Bossier% % 6.8 Abs Bossier <0.87 k/uL 0.62 Eosin% % 3.5 Abs Eosin <0.46 k/uL 0.32 Baso% % 0.2 Abs Baso <0.11 k/uL <0.03 Immature Gran % % 0.3 IMMATURE GRANS (ABS) <0.10 k/uL 0.03 NRBC /100 WBC 0.0 Absolute nRBC <0.01 k/uL <0.01 DTYPE Auto Protein, Total 6.3 - 8.0 g/dL 6.9 Albumin 3.9 - 4.9 g/dL 4.5 Calcium 8.5 - 10.2 mg/dL 9.7 Bilirubin, Total 0.2 - 1.3 mg/dL 0.2 Alkaline Phosphatase 38 - 113 U/L 78 AST 14 - 40 U/L 33 ALT 10 - 54 U/L 42 Glucose 74 - 99 mg/dL 224 (H) BUN 9 - 24 mg/dL 17 Creatinine 0.73 - 1.22 mg/dL 0.88 Sodium 136 - 144 mmol/L 141 Potassium 3.7 - 5.1 mmol/L 3.9 Chloride 97 - 105 mmol/L 105 CO2 22 - 30 mmol/L 24 Anion Gap 9 - 18 mmol/L 12 eGFR >=60 mL/min/1.73m 91 GLUCOSE UA (POCT) Negative mg/dL >=1000 (A) BILIRUBIN UA (POCT) Negative Small (A) KETONE UA (POCT) Negative mg/dL Negative SPECIFIC GRAVITY UA (POCT) 1.005 - 1.030 >=1.030 HEMOGLOBIN/BLOOD UA (POCT) Negative Negative PH UA (POCT) 4.5 - 8.0 5.0 PROTEIN UA (POCT) Negative mg/dL 30 (A) UROBILINOGEN UA (POCT) Normal E.U./dL 0.2 NITRITE UA (POCT) Negative Negative LEUKOCYTES UA (POCT) Negative Negative COLOR UA (POCT) Dark yellow CLARITY UA (POCT) Slightly Cloudy Hemoglobin A1C (POCT) 4.2 - 5.6 % 7.5 (A) Glucose, Point of Care 74 - 99 mg/dL 285 (A) 134 (A) Magnesium 1.7 - 2.3 mg/dL 2.3 B-Hydroxybutyrate <0.28 mmol/L 0.14 PAST MEDICAL HISTORY Diagnosis Date Alcohol abuse 04/18/2022 Carpal tunnel syndrome of left wrist Carpal tunnel syndrome on right Dependence on nicotine from cigarettes Essential hypertension 08/03/2021 Mixed hyperlipidemia Nicotine use disorder, F17.2 Osteoarthritis Pseudophakia of left eye 09/2012 Sleep apnea Spinal stenosis Thoracic or lumbosacral neuritis or radiculitis, unspecified Type 2 diabetes mellitus with hyperglycemia (HCC) 08/03/2021 PAST SURGICAL HISTORY Procedure Laterality Date ARTHRD ANT INTERBODY MIN DSC LUMBAR 1988 NEUROPLASTY &/TRANSPOS MEDIAN NRV CARPAL TUNNE 2008 Carpal tunnel decomp Lt. XCAPSL CTRC RMVL INSJ IO LENS PROSTH W/O ECP 09/2012 Cataract Extraction with PC IOL left Current Outpatient Medications Medication Sig Dispense Refill atorvastatin (LIPITOR) 80 mg tablet Take 1 tablet by mouth daily at bedtime. 90 tablet 3 flash glucose sensor (9GAGSTYLE YESSENIA 2 SENSOR) kit CHANGE EVERY 14 DAYS 2 Each 11 metFORMIN ER (GLUCOPHAGE XR) 500 mg 24 hr tablet Take 2 tablets by mouth twice daily with meals. 120 tablet 1 B Complex-Folic Acid (B COMPLEX 1, WITH FOLIC ACID,) 0.4 mg tab Take 1 tablet by mouth once daily. 30 tablet 5 semaglutide (RYBELSUS) 14 mg tablet Take 1 tablet (14 mg) by mouth daily before breakfast. 90 tablet 3 glipiZIDE (GLUCOTROL XL) 2.5 mg 24 hr tablet Take 1 tablet by mouth once daily. 90 tablet 1 gabapentin (NEURONTIN) 100 mg capsule Take by mouth. thiamine (VITAMIN B1) 100 mg tablet 100 mg once daily. Cholecalciferol, Vitamin D3, 25 mcg (1,000 unit) cap Take 1,000 Units by mouth once daily. UNILET LANCET 28 gauge 20 Units twice daily. losartan (COZAAR) 25 mg tablet Take 0.5 tablets by mouth once daily. polyethylene glycol 3350 (MIRALAX, GLYCOLAX) 17 gram packet Take 1 Packet by mouth once daily. Dissolve dose in 4 - 8 ounces of liquid and take as directed. acetaminophen (TYLENOL) 325 mg tablet Take 1-2 tablets by mouth every 6 hours as needed for pain or fever (specify). albuterol HFA (PROVENTIL HFA, VENTOLIN HFA) 90 mcg/actuation inhaler Inhale 2 Puffs as instructed every 4 hours as needed for wheezing/shortness of breath. metoprolol succinate ER (TOPROL XL) 25 mg 24 hr tablet Take 1 tablet by mouth once daily. 90 tablet 3 aspirin 81 mg chewable tablet 1 tablet by ORAL/FEEDING TUBE route once daily. 30 tablet 2 No current facility-administered medications for this visit. SOCIAL (pertinent): Social History Tobacco Use Smoking status: Every Day Packs/day: 0.25 Years: 20.00 Pack years: 5.00 Types: Cigarettes Smokeless tobacco: Never Vaping Use Vaping Use: Never used Substance Use Topics Alcohol use: Not Currently Alcohol/week: 60.0 standard drinks Types: 24 Cans of Beer (12oz) per week Drug use: No FAMILY (pertinent): FAMILY HISTORY Problem Relation Age of Onset Diabetes Mother Heart Mother Hypertension Mother Stroke Mother Cataract Mother Glaucoma Mother Macular Degen Father Cancer Sister Parkinsonism Sister Asthma Sister Headache Brother Cancer Brother Heart Attack Brother ROS: See HPI O: PHYSICAL EXAM: BP 110/68 Pulse 82 Ht 180.3 cm (5' 11) Wt 108.9 kg (240 lb) SpO2 95% BMI 33.47 kg/m Gen: Patient is pleasant, alert, NAD, well appearing Head: Normocephalic, atraumatic CV: Regular rate and rhythm, normal S1/S2, no murmurs, rubs Pulm: Clear to auscultation bilaterally, no wheezes, crackles, or rhonchi Neuro: EOMI, no involuntary movements. Extrem: No cyanosis, clubbing, or edema. Distal pulses equal and palpable b/l Skin: Superficial abrasion over the right hand without surrounding erythema or warmth. No purulent drainage. A/P: I spent 30 minutes in the visit, with more than 50% of the total [id number] time of the visit in counseling / coordination of care. 72 year old male with ASSESSMENT/PLAN: 1. Hyperglycemia - ICD9: 790.29, ICD10: R73.9 (primary diagnosis) 2. Type 2 diabetes mellitus with hyperglycemia, without long-term current use of insulin (HCC) - ICD9: 250.00, 790.29, ICD10: E11.65 Because of the patient's issues remembering things, he cannot recall whether he changed anything about his diet. No signs of infection in the emergency department or on today's exam. We will continue to monitor for signs and symptoms associated with symptomatic hypoglycemia. His glucose is in normal range at this time. Continue all medications and follow-up with endocrinology. 3. Memory loss - ICD9: 780.93, ICD10: R41.3 - CONSULT TO NEUROLOGY 4. Abrasion of right hand, initial encounter - ICD9: 914.0, ICD10: S60.511A Wound was cleansed and covered with sterile gauze and tape. No signs of cellulitis. Signs and symptoms of worsening infection discussed and when to seek immediate medical attention- patient expressed understanding. 5. Sensorineural hearing loss (SNHL) of both ears - ICD9: 389.18, ICD10: H90.3 - HEARING TEST/AUDIOGRAM Samm Kc DO September 22, 2022 4:45 PM Follow up in 6 months documented in this encounter [facility] 09-18-2022 Miscellaneous Notes JENNIFER 04/12APR 14 Patient has been identified by name and date of : Yes Requested Prescriptions Pending Prescriptions Disp Refills atorvastatin (LIPITOR) 80 mg tablet 90 tablet 3 Si tablet by ORAL/FEEDING TUBE route daily at bedtime. RX INSTRUCTIONS: Patient aware RX will be sent to pharmacy. No need to notify patient. Vy Vazquez Pss documented in this encounter [facility] 09-18-2022 Miscellaneous Notes Call to pt, spoke with Bg States blood sugars have OK since ED visit Yesterday: 170-172 Today's fasting was 130s Advised OK to keep appointment for Sunday Advised to keep diary of readings and bring to appointment Sunday Verbalizes understanding. Patient's spouse stated he went to ER on 09/16/22 for high blood sugar. Said d/c papers advised to see pcp within 2 days. No availability in [place] office until Sunday with Dr. Peter. Appt was scheduled, but patient wants to know if it is ok to wait until Sunday. Please advise at [phone]. documented in this encounter [facility] 08-02-2022 Instructions Sedrick Roberts MD - 08/02/2022 10:48 AM EST - Continue Rybelsus 14 mg daily - Continue Glipizide XL 2.5 mg 2 pills once a day - Change Metformin to extended release 2 pills twice a day documented in this encounter [facility] 08-02-2022 History of Present illness Narrative Images from the original note were not included. ENDOCRINOLOGY CLINIC NOTE Mr. Barone is a 72 year old male with T2DM, dyslipidemia, HTN, and sleep apnea presented with his for follow-up of T2DM HPI He was diagnosed with diabetes a year ago and was not taking anything. He was admitted to the hospital in 08/2021 with COVID and required ICU stay due to high oxygen requirements. He was discharge to a retirement on insulin and metfomrin He developed thrombocytopenia and the aspirin was stopped. He saw Dr. Arias with a plan to see Dr. Hernandez from hematology for further work-up We started him on Rybelsus and increased the dose. And also added low-dose glipizide XL on his last visit because of the hypoglycemia, we stopped the insulin. He A1c: 07/24/21 05:30 12/21/21 09:41 04/04/22 16:27 Hemoglobin A1C 9.7 (H) Hemoglobin A1C (POCT) 6.2 7.5 ! Current regimen: Metformin 500 mg twice a day Glipizide XL 2.5 mg 2 pills daily Rybelsus 14 mg daily Home glucose monitoring: He has [email or web address] yessenia 2 The patient's continuous glucose monitoring device was downloaded, interpreted by myself and recommendations were discussed with the patient. The following data was obtained: Average glucose: 169 mg/dl glucose variability 29.7 % Estimated HbA1c: 7.4 % Serious hypoglycemia (<55 mg/dl): 0% Hypoglycemia (<70 mg/dl): % 71 Values in target (70-180 mg/dl): % Hyperglycemia (>180 mg/dl): 20 % Serious hyperglycemia (>250 mg/dl): 9 % CGM active 80 % of the time Time evaluated: 14 days Diet: He eats 3 meals a day Physical activity: In the context of daily activities Complications: Retinopathy: Last eye exam was in 06/2021 that showed cataract, but no diabetic eye exam at that time Nephropathy: Normal GFR in 01/2022 on losartan Neuropathy: No symptoms suggestive of that CVS: lipid profile: 07/2021: LDL 133, TG 168 on atorvastatin 80 mg. BP: 133/85 PAST MEDICAL HISTORY Diagnosis Date Alcohol abuse 04/18/2022 Carpal tunnel syndrome of left wrist Carpal tunnel syndrome on right Dependence on nicotine from cigarettes Essential hypertension 08/03/2021 Mixed hyperlipidemia Nicotine use disorder, F17.2 Osteoarthritis Pseudophakia of left eye 09/2012 Sleep apnea Spinal stenosis Thoracic or lumbosacral neuritis or radiculitis, unspecified Type 2 diabetes mellitus with hyperglycemia (HCC) 08/03/2021 PAST SURGICAL HISTORY Procedure Laterality Date ARTHRD ANT INTERBODY MIN DSC LUMBAR 1988 NEUROPLASTY &/TRANSPOS MEDIAN NRV CARPAL TUNNE 2009 Carpal tunnel decomp Lt. XCAPSL CTRC RMVL INSJ IO LENS PROSTH W/O ECP 09/2012 Cataract Extraction with PC IOL left FAMILY HISTORY Problem Relation Age of Onset Diabetes Mother Heart Mother Hypertension Mother Stroke Mother Cataract Mother Glaucoma Mother Macular Degen Father Cancer Sister Parkinsonism Sister Asthma Sister Headache Brother Cancer Brother Heart Attack Brother Social History Tobacco Use Smoking status: Every Day Packs/day: 0.25 Years: 20.00 Pack years: 5.00 Types: Cigarettes Smokeless tobacco: Never Vaping Use Vaping Use: Never used Substance Use Topics Alcohol use: Not Currently Alcohol/week: 60.0 standard drinks Types: 24 Cans of Beer (12oz) per week Drug use: No (Not in a hospital admission) Allergies As of Date: 08/02/2022 (No Known Allergies) Fully Assessed 05/05/2022 Current Outpatient Medications Medication Sig Dispense Refill flash glucose sensor (FREESTYLE YESSENIA 2 SENSOR) kit CHANGE EVERY 14 DAYS 2 Each 1 B Complex-Folic Acid (B COMPLEX 1, WITH FOLIC ACID,) 0.4 mg tab Take 1 tablet by mouth once daily. 30 tablet 5 semaglutide (RYBELSUS) 14 mg tablet Take 1 tablet (14 mg) by mouth daily before breakfast. 90 tablet 3 glipiZIDE (GLUCOTROL XL) 2.5 mg 24 hr tablet Take 1 tablet by mouth once daily. 90 tablet 1 metFORMIN (GLUCOPHAGE) 500 mg tablet Take 1 tablet by mouth twice daily. 180 tablet 3 gabapentin (NEURONTIN) 100 mg capsule Take by mouth. thiamine (VITAMIN B1) 100 mg tablet 100 mg once daily. Cholecalciferol, Vitamin D3, 25 mcg (1,000 unit) cap Take 1,000 Units by mouth once daily. UNILET LANCET 28 gauge 20 Units twice daily. losartan (COZAAR) 25 mg tablet Take 0.5 tablets by mouth once daily. polyethylene glycol 3350 (MIRALAX, GLYCOLAX) 17 gram packet Take 1 Packet by mouth once daily. Dissolve dose in 4 - 8 ounces of liquid and take as directed. acetaminophen (TYLENOL) 325 mg tablet Take 1-2 tablets by mouth every 6 hours as needed for pain or fever (specify). albuterol HFA (PROVENTIL HFA, VENTOLIN HFA) 90 mcg/actuation inhaler Inhale 2 Puffs as instructed every 4 hours as needed for wheezing/shortness of breath. atorvastatin (LIPITOR) 80 mg tablet 1 tablet by ORAL/FEEDING TUBE route daily at bedtime. 90 tablet 3 metoprolol succinate ER (TOPROL XL) 25 mg 24 hr tablet Take 1 tablet by mouth once daily. 90 tablet 3 aspirin 81 mg chewable tablet 1 tablet by ORAL/FEEDING TUBE route once daily. 30 tablet 2 No current facility-administered medications for this visit. COMPLETE REVIEW OF SYSTEMS: 10 point review of systems was negative other than what is mentioned in the H&P PHYSICAL EXAM: 08/02/22 1031 BP: 133/85 Pulse: 91 SpO2: 98% Weight: 113 kg (249 lb 3.2 oz) Height: 180.3 cm (5' 11) General: NAD, alert and cooperative, no facial plethora Previous exam HEENT: EOMI, no proptosis/stare. Neck: supple with full ROM. No thyromegaly or palpable nodules. Cardiovascular: RRR, +S1 and S2, Lungs: Clear to auscultation bilaterally Abdomen: soft, non-tender, non-distended Extremities: No LE oedema Neuro: alert and oriented Psych: Normal affect Foot Exam 12/21/2021: no wounds or ulcers. Good pedal pulses bilaterally. Normal monofilament and vibration sensation bilaterally Labs: As mentioned above Assessment and Recommendations: Mr. Rand is a pleasant 72-year-old man presented with his for follow-up of T2DM. There has been significant improvement in his time in range. Our goal is to maintain an A1c around 7- 7.5% to reduce the risks of diabetes related complications while not significantly increasing the risk of hypoglycemia He is having hyperglycemia after breakfast which is rich in carbohydrates. He will meet with my colleague CDE to go over some dietary modifications. We will continue with Rybelsus and glipizide at the current doses, but will switch the metformin to extended release 2 pills twice a day. Follow-up with my colleague nurse in 3 months and with me in 6 months Some of the above has been copied from prior documentation on 04/04/2022 but leo elements reviewed, confirmed, and/or updated by me (Sedrick Roberts MD) on 08/02/2022 I spent a total of 30 minutes on the date of the service which included preparing to see the patient, [id number] patient care, completing clinical documentation, counseling and educating the patient/family/caregiver, and ordering medications, tests, or procedures. Sedrick Roberts MD documented in this encounter [facility] 08-01-2022 Miscellaneous Notes Called patient's home, left voice message to call office at [phone], and ask to speak to the nurse. Thank you. They have an appointment with me tomorrow and we will discuss HH Ex spouse Bg velásquez. Ph. [phone] Glucose readings as follows: 08:30 - 318 09:10 - 297 09:27 - 283 Please contact bg. Thank you. documented in this encounter [facility] 07-07-2022 Miscellaneous Notes Received a CMM PA request for Freestyle Yessenia Sensor 2. Completed questionnaire. This cannot be completed due to this cannot be processed through a regular pharmacy. He has [employer] Medicare. He will need to use a DME covered by his insurance. Attempted to contact the patient to let him know this but he stated he didn't want to talk to us at this time and disconnected the call. Contacted the pharmacy ([facility]) and spoke to Susan to notify them and she stated that patient did pick this up and used a savings card to pay for this. Noted that if at some point he cannot use this he will need to be notified to contact insurance to seek information about a DME. She will make a note to notify him at his next fill. Closed. documented in this encounter [facility] 07-04-2022 Miscellaneous Notes Pharmacy verified in Epic Patient has been identified by name and date of : Yes Patient aware RX will be sent to pharmacy. No need to notify patient. Patient phones for refill(s): Requested Prescriptions Pending Prescriptions Disp Refills flash glucose sensor (FREESTYLE YESSENIA 2 SENSOR) kit 2 Each 1 Sig: CHANGE EVERY 14 DAYS Date of last office visit : 04/04/2022 Date of next office visit : 08/02/2022 Last 2 Encounter Wt Readings: Date: Wt: 04/18/2022 110.4 kg (243 lb 4.8 oz) 04/12/2022 110.2 kg (243 lb) Diabetes: Hemoglobin A1C (%) Date Value 07/24/2021 9.7 Hemoglobin A1C (POCT) (%) Date Value 04/04/2022 7.5 Please advise. Fabi Mott Pss documented in this encounter [facility] 07-01-2022 Miscellaneous Notes - Continue metformin 500 mg twice a day - Continue Rybelsus 14 mg once a day - Increase glipizide XL to 5 mg once a day (they can take 2 pills of the 2.5 mg once a day) - He should not need insulin, but in case they wanted to use a sliding scale: If BG 150 or less = 0 units 151 - 200 = 1 unit 201 - 250 = 2 units 251 - 300 = 3 units 301 - 350 = 4 units 351 - 400 = 5 units >400 = call physician Thank you HH Called and spoke with Bg (ex spouse) Current Diabetes Medications: Fiasp if BS over 200 Rybelsus 14 mg Glipizide 2.5 mg Metformin 500 mg Bg was concerned because every once in awhile his glucose was over 200. Per your note she is to call if it is over 200 consistently for a few days. She said it has not been consistent. She got mad at him for cheating on food and ripped up the sliding scale and I cannot find it in chart. Can you please add it to message. I would like to review that with her so she knows exactly how much to give. Right now she said she is giving him like 2.5 units when it is 200-250. I asked her to record readings for the weekend and we will call her Sunday for an update. Ex spouse calling again. Glucose at 3:06 PM is 152. Please advise. Spouse calling to report patient's elevated glucose readings. Glucose was 285 at 9 PM on 06/28/22. Glucose reading at 1:45 PM today was 165. Please reach out and advise. Fabi Simpson documented in this encounter [facility] 05-05-2022 Miscellaneous Notes Radiology Service Progress Note PATIENT NAME: Justin Barone DATE OF SERVICE: May 05, 2022 TIME: 12:12 PM PATIENT IDENTITY VERIFICATION COMPLETED USING TWO (2) IDENTIFIERS: Name and Date of confirmed by patient verbally. FALL SCREENING: Has the patient had 2 falls in the last year or 1 fall with injury or currently using an Ambulatory Assistive Device (Walker, Cane, Wheelchair, Crutches, etc.)? No PATIENT GENDER DATA: Male PATIENT RELEVANT IMPLANT DATA REVIEWED: Yes RADIOLOGY DEPARTMENT: MR; Exam(s) Completed: Neck: Carotids MRA, bilateral PERIPHERAL IV DATA: Site assessment: Clean,Dry and Intact, Site disposition Discontinued SIGNED BY: RT Viv(R) Sarahi Vazquez) May 05, 2022 12:12 PM documented in this encounter [facility] 05-05-2022 Nurse Note Radiology Service Progress Note DATE OF SERVICE: May 05, 2022 TIME: 11:34 AM PATIENT WEIGHT: 240 LBS PATIENT IDENTITY VERIFICATION COMPLETED USING TWO (2) STANDARD IDENTIFIERS: Name and Date of confirmed by patient verbally and Name and Date of confirmed by identification band. FALL SCREENING: Has the patient had 2 falls in the last year or 1 fall with injury or currently using an Ambulatory Assistive Device (Walker, Cane, Wheelchair, Crutches, etc.)? No PATIENT GENDER DATA: Male ALLERGIES: Reviewed and unchanged CONTRAST ALLERGY: No EXAM: MRI - CONTRAST TYPE: GROUP II IV SITE: Ambulatory: A peripheral IV was started in the Right forearm with a Angio cath: 20 gauge. and A Saline lock was inserted per protocol. 2.00 in inserted under US guidance IV SITE APPEARANCE: Clean,Dry and Intact SIGNATURE: Nickolas Gipson RN PATIENT NAME: Justin Barone DATE: May 05, 2022 TIME: 11:34 AM documented in this encounter [facility] 04-14-2022 History of Present illness Narrative Radiology Service Progress Note PATIENT NAME: Justin Barone DATE OF SERVICE: April 14, 2022 TIME: 1:39 PM PATIENT IDENTITY VERIFICATION COMPLETED USING TWO (2) IDENTIFIERS: Name and Date of confirmed by patient verbally. FALL SCREENING: Has the patient had 2 falls in the last year or 1 fall with injury or currently using an Ambulatory Assistive Device (Walker, Cane, Wheelchair, Crutches, etc.)? No PATIENT GENDER DATA: Male PATIENT RELEVANT IMPLANT DATA REVIEWED: Not Applicable RADIOLOGY DEPARTMENT: Aorta Ultrasound PERIPHERAL IV DATA: Not applicable SIGNED BY: RT Monica(R) April 14, 2022 1:39 PM documented in this encounter [facility] 04-12-2022 History of Present illness Narrative SUBSEQUENT MEDICARE YEARLY WELLNESS Date of last exam n/a Justin currently living at: [address] [place] [address] [place] [id number] Medical, surgical, family and social histories reviewed and updated below. Component Latest Ref Rng & Units 01/09/2022 01/30/2022 04/04/2022 WBC 3.70 - 11.00 k/uL 13.11 (H) 9.29 RBC 4.20 - 6.00 m/uL 5.57 4.95 Hemoglobin 13.0 - 17.0 g/dL 16.5 14.8 Hematocrit 39.0 - 51.0 % 48.9 43.4 MCV 80.0 - 100.0 fL 87.8 87.7 MCH 26.0 - 34.0 pg 29.6 29.9 MCHC 30.5 - 36.0 g/dL 33.7 34.1 RDW-CV 11.5 - 15.0 % 13.0 13.3 Platelet Count 150 - 400 k/uL 64 (L) 71 (L) MPV 9.0 - 12.7 fL 10.4 10.9 Neut% % 53.6 50.7 Abs Neut (ANC) 1.45 - 7.50 k/uL 7.04 4.71 Lymph% % 35.5 38.0 Abs Lymph 1.00 - 4.00 k/uL 4.65 (H) 3.53 Bossier% % 6.6 6.8 Abs [place]ier <0.87 k/uL 0.86 0.63 Eosin% % 3.6 3.8 Abs Eosin <0.46 k/uL 0.47 (H) 0.35 Baso% % 0.3 0.4 Abs Baso <0.11 k/uL 0.04 0.04 Immature Gran % % 0.4 0.3 IMMATURE GRANS (ABS) <0.10 k/uL 0.05 0.03 NRBC /100 WBC 0.0 0.0 Absolute nRBC <0.01 k/uL <0.01 <0.01 DTYPE Auto Auto Protein, Total 6.3 - 8.0 g/dL 8.3 (H) 6.8 Albumin 3.9 - 4.9 g/dL 4.8 4.3 Calcium 8.5 - 10.2 mg/dL 9.7 9.4 Bilirubin, Total 0.2 - 1.3 mg/dL 0.4 0.3 Alkaline Phosphatase 38 - 113 U/L 92 75 AST 14 - 40 U/L 31 24 ALT 10 - 54 U/L 31 28 Glucose 74 - 99 mg/dL 130 (H) 116 (H) BUN 9 - 24 mg/dL 26 (H) 26 (H) Creatinine 0.73 - 1.22 mg/dL 0.92 0.79 Sodium 136 - 144 mmol/L 140 140 Potassium 3.7 - 5.1 mmol/L 4.3 4.6 Chloride 97 - 105 mmol/L 104 105 CO2 22 - 30 mmol/L 23 23 Anion Gap 9 - 18 mmol/L 13 12 eGFR >=60 mL/min/1.73m 88 94 Hemoglobin A1C (POCT) 4.2 - 5.6 % 7.5 (A) PAST MEDICAL HISTORY Diagnosis Date Carpal tunnel syndrome of left wrist Carpal tunnel syndrome on right Dependence on nicotine from cigarettes Essential hypertension 08/03/2021 Mixed hyperlipidemia Nicotine use disorder, F17.2 Osteoarthritis Pseudophakia of left eye 09/2012 Sleep apnea Spinal stenosis Thoracic or lumbosacral neuritis or radiculitis, unspecified Type 2 diabetes mellitus with hyperglycemia (HCC) 08/03/2021 PAST SURGICAL HISTORY Procedure Laterality Date ARTHRD ANT INTERBODY MIN DSC LUMBAR 1989 NEUROPLASTY &/TRANSPOS MEDIAN NRV CARPAL TUNNE 2008 Carpal tunnel decomp Lt. XCAPSL CTRC RMVL INSJ IO LENS PROSTH W/O ECP 09/2012 Cataract Extraction with PC IOL left Patient has no known allergies. Current Outpatient Medications Medication Sig semaglutide (RYBELSUS) 14 mg tablet Take 1 tablet (14 mg) by mouth daily before breakfast. glipiZIDE (GLUCOTROL XL) 2.5 mg 24 hr tablet Take 1 tablet by mouth once daily. metFORMIN (GLUCOPHAGE) 500 mg tablet Take 1 tablet by mouth twice daily. gabapentin (NEURONTIN) 100 mg capsule Take by mouth. thiamine (VITAMIN B1) 100 mg tablet 100 mg once daily. Cholecalciferol, Vitamin D3, 25 mcg (1,000 unit) cap Take 1,000 Units by mouth once daily. UNILET LANCET 28 gauge 20 Units twice daily. losartan (COZAAR) 25 mg tablet Take 0.5 tablets by mouth once daily. polyethylene glycol 3350 (MIRALAX, GLYCOLAX) 17 gram packet Take 1 Packet by mouth once daily. Dissolve dose in 4 - 8 ounces of liquid and take as directed. acetaminophen (TYLENOL) 325 mg tablet Take 1-2 tablets by mouth every 6 hours as needed for pain or fever (specify). albuterol HFA (PROVENTIL HFA, VENTOLIN HFA) 90 mcg/actuation inhaler Inhale 2 Puffs as instructed every 4 hours as needed for wheezing/shortness of breath. atorvastatin (LIPITOR) 80 mg tablet 1 tablet by ORAL/FEEDING TUBE route daily at bedtime. metoprolol succinate ER (TOPROL XL) 25 mg 24 hr tablet Take 1 tablet by mouth once daily. aspirin 81 mg chewable tablet 1 tablet by ORAL/FEEDING TUBE route once daily. No current facility-administered medications for this visit. Medications reviewed: Yes FAMILY HISTORY Problem Relation Age of Onset Diabetes Mother Heart Mother Hypertension Mother Stroke Mother Cataract Mother Glaucoma Mother Macular Degen Father Cancer Sister Parkinsonism Sister Asthma Sister Headache Brother Cancer Brother Heart Attack Brother Social History Tobacco Use Smoking status: Every Day Packs/day: 0.10 Years: 20.00 Pack years: 2.00 Types: Cigars, Cigarettes Last attempt to quit: 10/03/2021 Years since quittin.5 Smokeless tobacco: Never Vaping Use Vaping Use: Never used Substance Use Topics Alcohol use: Not Currently Alcohol/week: 60.0 standard drinks Types: 24 Cans of Beer (12oz) per week Drug use: No Was drinking 6 beers/day for 50 years. Justin claims he is not drinking currently but found empty beer cans in the house. is concerned about the patient's memory- states that he responds very slowly to her and is not the same as he used to be- sometimes feels like he is not hearing her. She would like him evaluated for memory loss/MCI. Justin denies regular aerobic exercise. He watches his diet for sodium, low fat and low cholesterol some of the time. List of current specialists seen: Endocrinology, Hematology/ Oncology, and Neurology End of Live Planning discussed including patients advanced directive wishes: Yes I am willing to follow Justin advanced directives. Has AD- Son Mina is POA. is with him today Depression screen He in the past two weeks denies having felt down, depressed, hopeless, or with little interest or pleasure in doing things. Functional Ability/Safety Screen 1. Was the patient's timed Up and Go test unsteady or longer than 30 seconds? No 2. Does the patient need help with the phone, transportation, shopping,preparing meals, housework, laundry, medications or managing money? No 3. Does your home have rungs in the hallway, lack of grab bars in the bathroom, lack of handrails on the stairs or have poor lighting? No Hearing Evaluation: normal Vital SIgns: BP 130/74 Pulse 80 Ht 180.3 cm (5' 11) Wt 110.2 kg (243 lb) SpO2 98% BMI 33.89 kg/m Body mass index is 33.89 kg/m . Visual acuity: normal Gen: Patient is pleasant, alert, NAD, well appearing Head: Normocephalic, atraumatic CV: Regular rate and rhythm, normal S1/S2, no murmurs, rubs Pulm: Clear to auscultation bilaterally, no wheezes, crackles, or rhonchi Neuro: EOMI, no involuntary movements. A&O x 3. Extrem: No cyanosis, clubbing, or edema. Distal pulses equal and palpable b/l Skin: Warm, dry, no visible rashes ASSESMENT/PLAN: 71 year old male The following prevention plan was discussed during the office visit and provided to the patient: 1. Wellness examination - ICD9: V70.0, ICD10: Z00.00 (primary diagnosis) - Counseled on healthy diet and regular exercise - Discussed need for and benefit of weight loss. BMI 33.89 kg/(m^2) - Smoking cessation counseling - Fall avoidance - Vaccines recommended COVID-19, Pneumococcal, Influenza, Shingrix at pharmacy, and Tdap at pharmacy - Colorectal cancer screening recommended - agrees to Cologuard - Depression screening - Alcohol misuse screening and counseling 2. Screening for endocrine, metabolic and immunity disorder - ICD9: V77.99, ICD10: Z13.29, Z13.228, Z13.0 Labs reviewed 3. Screening for abdominal aortic aneurysm - ICD9: V81.2, ICD10: Z13.6 Explained rationale for screening - US SCREENING FOR AAA 4. Advance directive discussed with patient - ICD9: V65.49, ICD10: Z71.89 Son is POA- chart updated. - ADVANCE CARE PLAN DISCUSSION 5. Screening for colon cancer - ICD9: V76.51, ICD10: Z12.11 - COLOGUARD 6. Type 2 diabetes mellitus with hyperglycemia, without long-term current use of insulin (HCC) - ICD9: 250.00, 790.29, ICD10: E11.65 The patient is new to [place]. - Continue current medications - Encouraged regular aerobic exercise and weight loss - BP goal of <130/80 - LDL goal of <100 - Patient urged to quit smoking. - ALBUMIN/CREAT RATIO RND UR 7. Tobacco use disorder - ICD9: 305.1, ICD10: F17.200 - Cessation encouraged. - Physiologic and physical aspects of tobacco addiction as well as strategies for quitting were discussed. - Counseling was given focusing on the harmful effects of this addiction especially given the patient's medical condition(s) which will be worsened because of the chemicals in tobacco. - Counseling was given 3-4 minutes. - pre-contemplative phase 8. Encounter for immunization - ICD9: V03.89, ICD10: Z23 - PNEUMOCOCCAL VACCINE (PREVNAR 20) - INFLUENZA SEASONAL QUADRIVALENT HIGH DOSE AGE 65+ 9. Alcohol abuse - ICD9: 305.00, ICD10: F10.10 Recommended EtOH cessation and initiation of a B complex vitamin in addition to his thiamine supplementation. - VITAMIN B COMPLEX-FOLIC ACID 0.4 MG TABLET 10. MCI (mild cognitive impairment) - ICD9: 331.83, ICD10: G31.84 Recommend evaluation by brain health specialist. - CONSULT TO NEUROLOGY Samm Kc DO 04/12/2022 11:10 AM Follow up in 6 months documented in this encounter [facility] 03-01-2022 Miscellaneous Notes Your office note does not say he is taking Metfomin 500 MG or there is a Metformin ER 500 MG. If this is correct below please send or would you like me to check with patient? Patient requesting a refill on metformin. Please send to the [facility] in [place]. documented in this encounter [facility] 02-15-2022 Miscellaneous Notes Call placed no voicemail set up and home number tones busy. Thank you. If you could please confirm that they stopped all insulins. They should also stop metformin, and continue with Rybelsus 7 mg once a day If the low blood sugars continue, they should let us know If the blood sugars start to rise above 200 several times, they should also let us know I would like them to give us an update in 3 days regardless. HH Received a call from patient's (Bg). State's patient has been having frequent low's during the night. His Yessenia alarms but he does not hear it, but his does. He has readings 50's-60's, she gives him orange juice and he goes back to sleep. In the AM he is running low 100's. Please review if medication changes are needed. Confirmed he is taking Rybelsus and Metformin as ordered. documented in this encounter [facility] 01-31-2022 Miscellaneous Notes Reason for Call: low blood sugar past 2 evenings Outcome: blood sugar increased to 78 now, will continue to monitor and follow up with Endocrinology in am Reason for Disposition [1] Blood glucose < 70 mg/dL (3.9 mmol/L) or symptomatic, now improved with Care Advice AND [2] cause unknown Answer Assessment - Initial Assessment Questions 1. SYMPTOMS: woke up this evening with low blood sugar of 53 2. ONSET: same issue last night 3. BLOOD GLUCOSE: blood sugar has now increased to 78 4. USUAL RANGE: 90-110 5. TYPE 1 or 2: Type 2 6. INSULIN: Lantus in the am (took 14 unit this am rather than 18 units) 7. DIABETES PILLS: metformin, rybelsus 8. OTHER SYMPTOMS: denies 9. LOW BLOOD GLUCOSE TREATMENT: juice, lemonade, milk 10. FOOD: early dinner at 4:45pm, half sandwich tonight 11. ALONE: with patient 12. : N/A Protocols used: Diabetes - Low Blood [id number] documented in this encounter [facility] 01-30-2022 Instructions Cornelio Persaud MD - 01/30/2022 12:25 PM EDT --uncoated aspirin 81mg daily --atorvastatin 80mg daily --blood test in a month --carotid ultrasound in 4-5 months --follow up with me after ultrasound Stroke Signs and Symptoms: *Stroke is a medical emergency. Know these warning signs of stroke: Sudden numbness or weakness of the face, arm or leg, especially on one side of the body Sudden confusion, trouble speaking, or understanding Sudden trouble seeing in one eye, or both eyes Sudden trouble walking, dizziness, loss of balance, or coordination Sudden severe headache with no known cause *If you, or someone with you, has one or more of these signs, don't delay! Immediately call 911, or the emergency medical services (EMS) number so an ambulance can be sent for you. Also, check the time so that you will know when the symptoms first appeared. It is very important to take immediate action, every second counts. Medical treatment may be available if action is taken early enough. documented in this encounter [facility] 01-30-2022 History of Present illness Narrative Images from the original note were not included. [facility] Follow up/ Established patient visit Individuals who were included in, or assisted with the encounter were: Justin Degroot Shelbyanders Cornelio Persaud MD Chief Complaint/Issues: Justin Barone is a 71 year old R handed male w PMH diabetes, alcohol abuse, smoking, HLD, R carotid 80% stenosis (asymptomatic), DDD L spine s/p surgery but still has back pain limiting his mobility seen in the [facility] for: Carotid stenosis Most Recent Neurological Assessment and Plan: Last Filed Values Date of Most Recent Assessment and Plan 10/12/21 Specialty General Neurology Assessment Justin Barone is a 71 year old R handed male w PMH diabetes, alcohol abuse, smoking, HLD, R carotid 80% stenosis (asymptomatic), DDD L spine s/p surgery but still has back pain limiting his mobility seen in the [facility] for General Neurology for: Carotid stenosis --Right carotid 80% stenosis. No significant calcification. Discrepancy between CTA and CUS in degree of stenosis estimation. I think CTA estimation is more accurate and CUS might underestimated the lesion. Nonetheless, it is asymptomatic. I put him on maximal medical management. Will recheck CUS at [facility]. Will also refer him to neurointerventionalist for diagnostic angiogram to get a better estimat of the degree of stenosis. --HLP: LDL 133 --DMII --smoking: he has quit --DDD L spine s/p surgery: he needs to follow up with spine medicine. He declined referral or repeat MRI of L spine Plan --Aspirin 81mg daily --atorvastatin 80mg bedtime --carotid US at [facility] --consult Dr. Ames or Rip at [facility] for diagnostic angiogram --consider to follow up with spine medicine for your back --follow up with me in 3-4 months HPI/Interval History: He was admitted on 07/22/2021 after a fall. Patient reports slipping and falling on his concrete garage steps after his heel hit one of the steps. Per reports he was too weak to stand and son was called to help him. Per note the son noticed confusion and slurred speech and unsure if he has been drinking. Per note Patient reportedly had 2 syncopal episodes during transport with EMS. However he denied. MRI brain: no acute stroke CTA head and neck: Approximately 80% stenosis of the proximal right ICA and 30% stenosis of the left proximal ICA. CUS 07/23/2021 1. RIGHT ICA: 30-49% stenosis 2. LEFT ICA: <30% stenosis Current medication: atorvastatin 80mg daily. He said acidizer do not want him to be on aspirin due to low platelet count. 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 He saw Dr. Erwin for carotid stenosis. He is hesitant to have surgery for it. He didn't feel that he needs to see a spine doctor. CUS 01/25/2022 ICA Stenosis Estimation (% by NASCET Criteria): Right 50-69% based on peak systolic velocity and greater than 70% based on end-diastolic velocity. Left less than 30% Component Latest Ref Rng & Units 11/11/2021 Cardiolipin Ab, IgG <15.0 GPL 34.4 (H) Cardiolipin Ab, IgM <12.5 MPL 12.6 (H) General Examination: BP 122/80 (BP Site: Right Arm, BP Position: Sitting, BP Cuff Size: Regular Adult) Pulse 80 Ht 180.3 cm (5' 11) Wt 107.5 kg (237 lb) BMI 33.05 kg/m General: Awake, alert, interactive, no acute distress, good nutritional status, normal development, well-kept Neurological Exam Mental Status Alert, fully oriented, attentive, with normal speech and affect. Cranial Nerves Visual ramon intact. Extraocular movements conjugate and full. No ptosis. No nystagmus. Facial sensation intact. Face symmetric and strong. Palate and tongue normal. XI normal. Motor Examination and Coordination Motor examination with normal bulk, strength and tone. No drift. Normal rapid alternating movements and coordination. No adventitious movements or significant tremor. Reflexes Deep tendon reflexes graded by [facility]C Assessment & Plan 01/30/2022 - General Neurology, Cornelio Persaud MD ASSESSMENT Justin Barone is a 71 year old R handed male w H diabetes, alcohol abuse, smoking, HLD, R carotid 80% stenosis (asymptomatic), former smoker, DDD L spine s/p surgery but still has back pain limiting his mobility seen in the [facility] for General Neurology for: Carotid stenosis --Asymptomatic Right carotid 80% stenosis on CTA. Repeat CUS showed stable but >70% stenosis. He does not want to have surgery now. Will do maximal medical management. I discussed with acidizer Dr. Hernandez about aspirin and he is ok with it. Cardiolipin IgG 34 on 11/11/2021. Will repeat in 3 months. --HLP: LDL 133. On lipitor 80mg daily --DMII --smoking: he has quit --DDD L spine s/p surgery: he needs to follow up with spine medicine. Still has some difficulty in walking. He declined referral or repeat MRI of L spine PLAN --uncoated aspirin 81mg daily --atorvastatin 80mg daily --aspirin resistance test and lupus panel in a month --carotid ultrasound in 4-5 months --follow up with me after ultrasound No diagnosis found. No follow-ups on file. Data Review Objective Current Outpatient Medications Medication Sig semaglutide (RYBELSUS) 7 mg tablet Take 1 tablet (7 mg) by mouth daily before breakfast. gabapentin (NEURONTIN) 100 mg capsule Take by mouth. metFORMIN (GLUCOPHAGE) 500 mg tablet Take 500 mg by mouth twice daily. thiamine (VITAMIN B1) 100 mg tablet 100 mg once daily. Cholecalciferol, Vitamin D3, 25 mcg (1,000 unit) cap Take 1,000 Units by mouth once daily. UNILET LANCET 28 gauge 20 Units twice daily. losartan (COZAAR) 25 mg tablet Take 0.5 tablets by mouth once daily. insulin glargine (LANTUS SOLOSTAR, BASAGLAR KWIKPEN) 100 unit/mL (3 mL) Inject 16 Units subcutaneously every morning. (Patient taking differently: Inject 20 Units subcutaneously every morning. ) insulin lispro 100 unit/mL injection ADMINISTER CORRECTIONAL INSULIN REGARDLESS OF MEAL OR NUTRITION INTAKE Scale 3 If Blood Glucose (mg/dL) is: Less than 110 Give 0 units 111-150 Give 1 unit 151-200 Give 3 units 201-250 Give 6 units 251-300 Give 9 units 301-350 Give 12 units 351-400 Give 15 units Greater than 400 Give 15 units and Notify Provider Notify provider if 2 consecutive blood glucose values in the previous 24 hours are greater than 250 mg/mL and there have been no changes to the insulin regimen in the previous 24 hours. insulin lispro 100 unit/mL injection ADMINISTER CORRECTIONAL INSULIN REGARDLESS OF MEAL OR NUTRITION INTAKE Scale 2 If Blood Glucose (mg/dL) is: Less than 110 Give 0 units 111-150 Give 0 units 151-200 Give 2 units 201-250 Give 4 units 251-300 Give 6 units 301-350 Give 8 units 351-400 Give 10 units Greater than 400 Give 10 units and Notify Provider Notify provider if 2 consecutive blood glucose values in the previous 24 hours are greater than 250 mg/mL and there have been no changes to the insulin regimen in the previous 24 hours. (Patient not taking: Reported on 12/21/2021 ) polyethylene glycol 3350 (MIRALAX, GLYCOLAX) 17 gram packet Take 1 Packet by mouth once daily. Dissolve dose in 4 - 8 ounces of liquid and take as directed. acetaminophen (TYLENOL) 325 mg tablet Take 1-2 tablets by mouth every 6 hours as needed for pain or fever (specify). albuterol HFA (PROVENTIL HFA, VENTOLIN HFA) 90 mcg/actuation inhaler Inhale 2 Puffs as instructed every 4 hours as needed for wheezing/shortness of breath. (Patient not taking: Reported on 12/05/2021 ) atorvastatin (LIPITOR) 80 mg tablet 1 tablet by ORAL/FEEDING TUBE route daily at bedtime. metoprolol succinate ER (TOPROL XL) 25 mg 24 hr tablet Take 1 tablet by mouth once daily. aspirin 81 mg chewable tablet 1 tablet by ORAL/FEEDING TUBE route once daily. (Patient not taking: Reported on 12/05/2021 ) No current facility-administered medications for this visit. ACTIVE PROBLEM LIST Sprain of Lumbar Region Displacement of Lumbar Intervertebral Disc Without Myelopathy Thoracic Or Lumbosacral Neuritis Or Radiculitis, Unspecified DUPUYTREN'S CONTRACTURE Pain in Joint, Hand Carpal Tunnel Syndrome Osteoarthrosis, Unspecified Whether Generalized Or Localized, Other Specified Sites Pseudophakia of Left Eye Borderline Glaucoma With Ocular Hypertension S/P Lumbar Fusion Spondylolisthesis of Lumbar Region Chronic Bilateral Low Back Pain Without Sciatica Combined Forms of Age-Related Cataract of Right Eye Ns (Nuclear Sclerosis), Right Posterior Subcapsular Polar Age-Related Cataract of Right Eye Syncope Elevated Troponin Nicotine use disorder, F17.2 Obesity, Class I, Bmi 30-34.9 Type 2 Diabetes Mellitus With Hyperglycemia (Hcc) Essential Hypertension Mixed Hyperlipidemia Covid-19 Frequent Falls Granular Casts 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 Multiple Falls Acute Respiratory Failure With Hypoxia (Hcc) Cardiomyopathy, Ischemic Stenosis of Right Carotid Artery PAST MEDICAL HISTORY Diagnosis Date Carpal tunnel syndrome of left wrist Carpal tunnel syndrome on right Dependence on nicotine from cigarettes Essential hypertension 08/03/2021 Mixed hyperlipidemia Nicotine use disorder, F17.2 Osteoarthritis Pseudophakia of left eye 09/2012 Sleep apnea Spinal stenosis Thoracic or lumbosacral neuritis or radiculitis, unspecified Type 2 diabetes mellitus with hyperglycemia (HCC) 08/03/2021 PAST SURGICAL HISTORY Procedure Laterality Date ARTHRD ANT INTERBODY MIN DSC LUMBAR 1988 NEUROPLASTY &/TRANSPOS MEDIAN NRV CARPAL TUNNE 2009 Carpal tunnel decomp Lt. XCAPSL CTRC RMVL INSJ IO LENS PROSTH W/O ECP 09/2012 Cataract Extraction with PC IOL left Social History Tobacco Use Smoking status: Former Packs/day: 0.50 Years: 20.00 Pack years: 10.00 Types: Cigars, Cigarettes Quit date: 10/03/2021 Years since quittin.3 Smokeless tobacco: Never Vaping Use Vaping Use: Never used Substance Use Topics Alcohol use: Not Currently Alcohol/week: 60.0 standard drinks Types: 24 Cans of Beer (12oz) per week Drug use: No FAMILY HISTORY Problem Relation Age of Onset Diabetes Mother Heart Mother Hypertension Mother Stroke Mother Cataract Mother Glaucoma Mother Macular Degen Father Cancer Sister Parkinsonism Sister Asthma Sister Headache Brother Cancer Brother Heart Attack Brother Review of Systems Lab and Test Review: Results for orders placed or performed in visit on 01/09/22 CBC + DIFF Result Value Ref Range WBC 13.11 (H) 3.70 - 11.00 k/uL RBC 5.57 4.20 - 6.00 m/uL Hemoglobin 16.5 13.0 - 17.0 g/dL Hematocrit 48.9 39.0 - 51.0 % MCV 87.8 80.0 - 100.0 fL MCH 29.6 26.0 - 34.0 pg MCHC 33.7 30.5 - 36.0 g/dL RDW-CV 13.0 11.5 - 15.0 % Platelet Count 64 (L) 150 - 400 k/uL MPV 10.4 9.0 - 12.7 fL Neut% 53.6 % Abs Neut 7.04 1.45 - 7.50 k/uL Lymph% 35.5 % Abs Lymph 4.65 (H) 1.00 - 4.00 k/uL Bossier% 6.6 % Abs Bossier 0.86 <0.87 k/uL Eosin% 3.6 % Abs Eosin 0.47 (H) <0.46 k/uL Baso% 0.3 % Abs Baso 0.04 <0.11 k/uL Immature Gran % 0.4 % Abs Immature Gran 0.05 <0.10 k/uL NRBC 0.0 /100 WBC Absolute nRBC <0.01 <0.01 k/uL Diff Type Auto COMP METABOLIC PANEL Result Value Ref Range Protein, Total 8.3 (H) 6.3 - 8.0 g/dL Albumin 4.8 3.9 - 4.9 g/dL Calcium, Total 9.7 8.5 - 10.2 mg/dL Bilirubin, Total 0.4 0.2 - 1.3 mg/dL Alkaline Phosphatase 92 38 - 113 U/L AST 31 14 - 40 U/L ALT 31 10 - 54 U/L Glucose 130 (H) 74 - 99 mg/dL BUN 26 (H) 9 - 24 mg/dL Creatinine 0.92 0.73 - 1.22 mg/dL Sodium 140 136 - 144 mmol/L Potassium 4.3 3.7 - 5.1 mmol/L Chloride 104 97 - 105 mmol/L CO2 23 22 - 30 mmol/L Anion Gap 13 9 - 18 mmol/L Estimated Glomerular Filtration Rate 88 >=60 mL/min/1.73m Outside Data/Labs: Subjective Patient-Entered Data: 01/30/22 - GENERAL NEUROLOGY SCORES No flowsheet data found. Depression Screening 02/26/2018 06/13/2018 01/28/2019 PHQ-2 Score 1 1 2 PHQ-9 Score 5 3 8 No flowsheet data found. No flowsheet data found. No flowsheet data found. I spent a total of 40 minutes on the date of the service which included preparing to see the patient, [id number] patient care, completing clinical documentation, obtaining and/or reviewing separately obtained history, performing a medically appropriate examination, counseling and educating the patient/family/caregiver, ordering medications, tests, or procedures, independently interpreting results (not separately reported), communicating results to the patient/family/caregiver, and care coordination (not separately reported). Cornelio Persaud MD documented in this encounter [facility] 01-25-2022 History of Present illness Narrative Radiology Service Progress Note PATIENT NAME: Justin Barone DATE OF SERVICE: January 25, 2022 TIME: 2:14 PM PATIENT IDENTITY VERIFICATION COMPLETED USING TWO (2) IDENTIFIERS: Name and Date of confirmed by patient verbally and Name and Date of confirmed by identification band. FALL SCREENING: Has the patient had 2 falls in the last year or 1 fall with injury or currently using an Ambulatory Assistive Device (Walker, Cane, Wheelchair, Crutches, etc.)? Yes, Patient High Risk for Falls What interventions were put in place to prevent falls during this visit? [place] Risk Wristband Applied, Instructed Patient to Call for Help if Needed, and Offered Assistance with Transfers/Clothing PATIENT GENDER DATA: Male PATIENT RELEVANT IMPLANT DATA REVIEWED: Not Applicable RADIOLOGY DEPARTMENT: Ultrasound PERIPHERAL IV DATA: Not applicable SIGNED BY: Marilee Mata January 25, 2022 2:14 PM documented in this encounter [facility] 12-21-2021 Instructions Sedrick Roberts MD - 12/21/2021 10:12 AM EDT - Continue with metformin 500 mg twice a day - Increase the Rybeslus to 7 mg once a day - Change the lantus to 20 units once a day in the morning -Target morning blood sugar 90-140 If your overnight or morning blood sugar is ever lower than 90, please decrease your lantus insulin by 1 unit permanently, and repeat as needed If your morning blood sugar is higher than 140 for 3 days in a row, please increase your lantus insulin by 1 unit permanently, and repeat as needed - If you notice blood sugars frequently above 200, please let me know documented in this encounter [facility] 12-21-2021 History of Present illness Narrative Images from the original note were not included. ENDOCRINOLOGY CLINIC NOTE Mr. Barone is a 71 year old male with T2DM, dyslipidemia, HTN, and sleep apnea was referred by Dr. Wong Gordillo for management of diabetes. He presented with his HPI He was diagnosed with diabetes a year ago and was not taking anything. He was admitted to the hospital in 08/2021 with COVID and required ICU stay due to high oxygen requirements. He was discharge to a retirement on insulin and metfomrin He developed thrombocytopenia and the aspirin was stopped. He saw Dr. Arias with a plan to see Dr. Hernandez from hematology for further work-up A1c: 03/21/2021 12:07 07/24/2021 05:30 12/21/2021 09:41 Hemoglobin A1C 7.3 (H) 9.7 (H) Hemoglobin A1C (POCT) 6.2 Current regimen: Metformin 500 mg twice a day Rybelsus 3 mg daily Lantus 20 units twice a day, but sometimes takes it once a day Lispro based on a sliding scale (rarely needs it) Home glucose monitoring: He has [email or web address] 2 The patient's continuous glucose monitoring device was downloaded, interpreted by myself and recommendations were discussed with the patient. The following data was obtained: Average glucose: 133 mg/dl glucose variability 21.4% Estimated HbA1c: 6.5% Serious hypoglycemia (<55 mg/dl): 0% Hypoglycemia (<70 mg/dl): 0% Values in target (70-180 mg/dl): 94% Hyperglycemia (>180 mg/dl): 6% Serious hyperglycemia (>250 mg/dl): 0% CGM active 94% of the time Time evaluated: 14 days A total of 10 minutes were spent to download the device, discuss the findings and provide recommendations to the patient. Diet: He eats 3 meals a day Physical activity: In the context of daily activities Complications: Retinopathy: Last eye exam was in 06/2021 that showed cataract, but no diabetic eye exam at that time Nephropathy: Normal GFR in 11/2021 on losartan Neuropathy: No symptoms suggestive of that CVS: lipid profile: 07/2021: Cholesterol 204, LDL 133, HDL 37, TG 168 on atorvastatin 80 mg. He was on aspirin but was put on hold due to thrombocytopenia BP: 129/66 PAST MEDICAL HISTORY Diagnosis Date Carpal tunnel syndrome of left wrist Carpal tunnel syndrome on right Dependence on nicotine from cigarettes Essential hypertension 08/03/2021 Mixed hyperlipidemia Nicotine use disorder, F17.2 Osteoarthritis Pseudophakia of left eye 09/2012 Sleep apnea Spinal stenosis Thoracic or lumbosacral neuritis or radiculitis, unspecified Type 2 diabetes mellitus with hyperglycemia (HCC) 08/03/2021 PAST SURGICAL HISTORY Procedure Laterality Date ARTHRD ANT INTERBODY MIN DSC LUMBAR 1989 NEUROPLASTY &/TRANSPOS MEDIAN NRV CARPAL TUNNE 2009 Carpal tunnel decomp Lt. XCAPSL CTRC RMVL INSJ IO LENS PROSTH W/O ECP 09/2012 Cataract Extraction with PC IOL left FAMILY HISTORY Problem Relation Age of Onset Diabetes Mother Heart Mother Hypertension Mother Stroke Mother Cataract Mother Glaucoma Mother Macular Degen Father Cancer Sister Parkinsonism Sister Asthma Sister Headache Brother Cancer Brother Heart Attack Brother Social History Tobacco Use Smoking status: Former Smoker Packs/day: 0.50 Years: 20.00 Pack years: 10.00 Types: Cigars Quit date: 10/03/2021 Years since quittin.2 Smokeless tobacco: Never Used Vaping Use Vaping Use: Never used Substance Use Topics Alcohol use: Not Currently Alcohol/week: 60.0 standard drinks Types: 24 Cans of Beer (12oz) per week Drug use: No (Not in a hospital admission) Allergies As of Date: 12/21/2021 (No Known Allergies) Fully Assessed 12/05/2021 Current Outpatient Medications Medication Sig Dispense Refill gabapentin (NEURONTIN) 100 mg capsule Take by mouth. metFORMIN (GLUCOPHAGE) 500 mg tablet Take 500 mg by mouth twice daily. semaglutide (RYBELSUS) 3 mg tablet Take 3 mg by mouth once daily. thiamine (VITAMIN B1) 100 mg tablet 100 mg once daily. Cholecalciferol, Vitamin D3, 25 mcg (1,000 unit) cap Take 1,000 Units by mouth once daily. UNILET LANCET 28 gauge 20 Units twice daily. losartan (COZAAR) 25 mg tablet Take 0.5 tablets by mouth once daily. insulin glargine (LANTUS SOLOSTAR, BASAGLAR KWIKPEN) 100 unit/mL (3 mL) Inject 16 Units subcutaneously every morning. (Patient taking differently: Inject 20 Units subcutaneously twice daily. ) insulin lispro 100 unit/mL injection ADMINISTER CORRECTIONAL INSULIN REGARDLESS OF MEAL OR NUTRITION INTAKE Scale 3 If Blood Glucose (mg/dL) is: Less than 110 Give 0 units 111-150 Give 1 unit 151-200 Give 3 units 201-250 Give 6 units 251-300 Give 9 units 301-350 Give 12 units 351-400 Give 15 units Greater than 400 Give 15 units and Notify Provider Notify provider if 2 consecutive blood glucose values in the previous 24 hours are greater than 250 mg/mL and there have been no changes to the insulin regimen in the previous 24 hours. polyethylene glycol 3350 (MIRALAX, GLYCOLAX) 17 gram packet Take 1 Packet by mouth once daily. Dissolve dose in 4 - 8 ounces of liquid and take as directed. acetaminophen (TYLENOL) 325 mg tablet Take 1-2 tablets by mouth every 6 hours as needed for pain or fever (specify). metoprolol succinate ER (TOPROL XL) 25 mg 24 hr tablet Take 1 tablet by mouth once daily. 90 tablet 3 insulin lispro 100 unit/mL injection ADMINISTER CORRECTIONAL INSULIN REGARDLESS OF MEAL OR NUTRITION INTAKE Scale 2 If Blood Glucose (mg/dL) is: Less than 110 Give 0 units 111-150 Give 0 units 151-200 Give 2 units 201-250 Give 4 units 251-300 Give 6 units 301-350 Give 8 units 351-400 Give 10 units Greater than 400 Give 10 units and Notify Provider Notify provider if 2 consecutive blood glucose values in the previous 24 hours are greater than 250 mg/mL and there have been no changes to the insulin regimen in the previous 24 hours. (Patient not taking: Reported on 12/21/2021 ) albuterol HFA (PROVENTIL HFA, VENTOLIN HFA) 90 mcg/actuation inhaler Inhale 2 Puffs as instructed every 4 hours as needed for wheezing/shortness of breath. (Patient not taking: Reported on 12/05/2021 ) atorvastatin (LIPITOR) 80 mg tablet 1 tablet by ORAL/FEEDING TUBE route daily at bedtime. 90 tablet 3 aspirin 81 mg chewable tablet 1 tablet by ORAL/FEEDING TUBE route once daily. (Patient not taking: Reported on 12/05/2021 ) 30 tablet 2 No current facility-administered medications for this visit. COMPLETE REVIEW OF SYSTEMS: 10 point review of systems was negative other than what is mentioned in the H&P PHYSICAL EXAM: 12/21/21 0935 BP: 129/66 Pulse: 82 SpO2: 96% Weight: 106.6 kg (235 lb) General: NAD, alert and cooperative, no facial plethora HEENT: EOMI, no proptosis/stare. Neck: supple with full ROM. No thyromegaly or palpable nodules. Cardiovascular: RRR, +S1 and S2, Lungs: Clear to auscultation bilaterally Abdomen: soft, non-tender, non-distended Extremities: No LE oedema Neuro: alert and oriented Psych: Normal affect Foot Exam 12/21/2021: no wounds or ulcers. Good pedal pulses bilaterally. Normal monofilament and vibration sensation bilaterally Labs: As mentioned above Assessment and Recommendations: Mr. Rand is a pleasant 71-year-old man presented with his to establish care for T2DM. His diabetes is well controlled as evidenced by the A1c level and the reviewed glucose data on his CGM. Given his age and comorbidities, our goal is to achieve an A1c around 7- 7.5% to reduce the risks of diabetes related complications while not significantly increasing the risk of hypoglycemia His glargine dose is supposed to be 20 units twice a day, but his has been giving him 20 units once a day on occasions. He is needing to lispro very rarely. We will increase the Rybelsus to 7 mg once a day, and I asked him to take glargine 20 units once a day. Instructions on how to further adjust the Lantus dose were discussed and provided in the after visit summary. We will continue with metformin 500 mg twice a day, and will likely increase the dose in the near future. We may be able to stop the Lantus in the near future We discussed that as of glucose levels are above 200 or below 90 frequently, that they should let us know Dr. Gordillo is thanked for involving me in the care of this patient My final recommendations will be communicated back to the requesting physician by way of shared Medical record or letter to requesting physician via [place] mail. I spent 60 minutes in the visit, with more than 50% of the total gdax-ma-dmup time of the visit in counseling / coordination of care. Sedrick Roberts MD documented in this encounter [facility] 11-14-2021 Miscellaneous Notes Pt. Notified antiplatelet factor IV antibody returned positive. Dr. Arias ordered additional testing. Pt. Informed he can go to [place] or [facility] to have lab testing done. Pt. Voiced understanding. Hortensia Benitez LPN I was notified by the ER that his antiplatelet factor IV antibody assay returned positive so he will have to have the additional test I ordered under this encounter. I am not sure if the sample can be drawn here or if he will need to go to [place] or [place]. He lives in [place] so best to go to 1 of those other 2 locations if they can draw it. Michael Arias DO documented in this encounter [facility] 11-11-2021 History of Present illness Narrative Patient referred by Dr. Harris for thrombocytopenia. The impression and plan will be communicated by way of the shared electronic record or faxed under separate cover letter. HPI: The patient is a 71-year-old male with past medical history significant for hypertension, mixed hyperlipidemia, ischemic cardiomyopathy, type 2 diabetes, alcohol use, syncope, obesity, chronic back pain, prior smoking, peripheral vascular disease (right carotid artery disease) and frequent falling. Patient was in the ED at [place] yesterday for hypoglycemic episode. LABS: Component Latest Ref Rng & Units 08/16/2021 11/09/2021 11/10/2021 WBC 3.70 - 11.00 k/uL 14.86 (H) 13.68 (H) 12.41 (H) RBC 4.20 - 6.00 m/uL 4.70 4.93 4.64 Hemoglobin 13.0 - 17.0 g/dL 14.4 14.7 13.8 Hematocrit 39.0 - 51.0 % 41.4 44.5 41.9 MCV 80.0 - 100.0 fL 88.1 90.3 90.3 MCH 26.0 - 34.0 pg 30.6 29.8 29.7 MCHC 30.5 - 36.0 g/dL 34.8 33.0 32.9 RDW-CV 11.5 - 15.0 % 11.9 14.4 14.2 Platelet Count 150 - 400 k/uL 465 (H) 55 (L) 45 (L) MPV 9.0 - 12.7 fL 9.5 11.6 11.4 Neut% % 73.1 73.6 68.8 Abs Neut (ANC) 1.45 - 7.50 k/uL 10.85 (H) 10.05 (H) 8.53 (H) Lymph% % 18.6 19.2 22.4 Abs Lymph 1.00 - 4.00 k/uL 2.77 2.63 2.78 Bossier% % 5.2 5.6 6.3 Abs Bossier <0.87 k/uL 0.78 0.77 0.78 Eosin% % 1.9 1.5 2.3 Abs Eosin <0.46 k/uL 0.28 0.21 0.29 Baso% % 0.1 0.1 0.2 Abs Baso <0.11 k/uL <0.03 <0.03 0.03 Immature Gran % % 1.1 IMMATURE GRANS (ABS) <0.10 k/uL 0.17 (H) NRBC /100 WBC 0.0 Absolute nRBC <0.01 k/uL <0.01 DTYPE Auto Auto Patient had been noted to have been recently hospitalized and may have had heparin exposure so platelet factor 4 antibody was sent. Result pending. Was hospitalized in July of this year, 08/03 through 08/16/2021 for acute hypoxemic respiratory failure COVID-19 infection, syncope. Was in NH until went home October 21. Denies unusual bleeding. Bruises easily. Still taking ASA--was told by ED physician to stop it. But still had ASA on discharge list from ED. PMH, medications and allergies personally reviewed by me today. Any changes documented in appropriate section. ROS: Constitutional: Denies episodes of fever and night sweats. Fatigued-- says he sleeps most of the day. Normal appetite. Neuro: Denies KAMARA. Has chronic imbalance. Denies symptoms of neuropathy. HEENT: No recent change in voice, vision or hearing. Resp: Denies cough, wheeze and hemoptysis. Denies shortness of breath at rest. Denies MCCANN. CVS: Denies exertional chest pain, PND, orthopnea and LE edema. GI: Denies dysgeusia. Denies symptoms of stomatitis. Denies dysphagia and odynophagia. Denies reflux, n/v, change in bowel habits and abdominal pain. : Denies dysuria or gross hematuria. No symptoms of bladder outlet obstruction. Endo: Denies hot flashes. Denies polyuria and polydipsia. Denies heat and cold intolerance. Musculoskeletal: Denies bone, back, joint and muscular pain. Derm: Denies rash. Denies jaundice and diffuse pruritis. Heme: See above. Psych: Normal mood. Social history: Previous heavy alcohol use--at least 6 pack every night. Quit as of 07/2021. Quit smoking 07/2021. Retired [employer]. 3 sons. One has POA. Lives with in [place]. Family history: Sister--Brain cancer. PHYSICAL EXAM: Vitals: Blood pressure 124/69, pulse 88, temperature 36.7 C (98.1 F), height 177 cm (5' 9.69), weight 105.9 kg (233 lb 8 oz), SpO2 96 %. Fatigued-appearing and in no acute distress. EYES: Sclerae are anicteric bilaterally. ENT: Oral mucosa is unremarkable. There is no signs of oral mucosal bleeding. LYMPHATIC: There is no palpable cervical, supraclavicular or axillary adenopathy. RESPIRATORY: Inspiratory breath sounds are of normal markedly diminished intensity in all ramon. CARDIOVASCULAR: Rhythm is regular. ABDOMEN: The abdomen is nondistended. No organomegaly. No tenderness. Extremities: Mild chronic appearing symmetric swelling of both lower extremities with very trace pitting edema. SKIN: New scattered petechiae on the legs consistent with scratch arias. NEUROLOGIC: maintainer operator II-XII are grossly intact. No focal motor weakness per se. He has trouble standing up from the chair however. Uses cane to ambulate. Needs help stepping up onto the exam table. ASSESSMENT/PLAN: (D69.6) Thrombocytopenia (HCC) (primary encounter diagnosis) Assessment: -The patient is a 71-year-old male with a past medical history as outlined above. He had an elevated platelet count when in the hospital this past July for COVID-19 pneumonia and hypoxemic respiratory failure. Incidentally found to have low platelet count in the ED yesterday. Reconfirmed with repeat CBC. He continues on aspirin but fortunately has had no unusual bleeding. -My nursing staff contacted [facility]. Patient had no subcutaneous heparin or Lovenox while at that facility. -No obvious medications that would cause an acute thrombocytopenia. -Discussed the broad differential with the patient and his . Plan: -Hold ASA. -CBC with staff review--need to evaluate for pseudothrombocytopenia and schistocytes. -Rule out viral and nutritional causes. -Rule out MAHA processes including TTP and DIC. -Rule out HIT. Will obtain serotonin release assay if platelet factor 4 antibody positive. -US liver/spleen. -Follow up in about 2 weeks or sooner depending on results as they become available. -Discussed he may need bone marrow biopsy to rule out MDS. -If all above negative then may approach as ITP. I spent a total of 60 minutes on the date of the service which included preparing to see the patient, [id number] patient care, completing clinical documentation, obtaining and/or reviewing separately obtained history, performing a medically appropriate examination, counseling and educating the patient/family/caregiver, ordering medications, tests, or procedures, communicating results to the patient/family/caregiver and care coordination (not separately reported). Michael Arias DO documented in this encounter [facility] 11-09-2021 Miscellaneous Notes Reason for call: transient hypoglycemia Outcome: home care Reason for Disposition [1] Blood glucose < 70 mg/dL (3.9 mmol/L) or symptomatic, now improved with Care Advice AND [2] cause unknown Answer Assessment - Initial Assessment Questions 1. SYMPTOMS: blood sugar was 69 at 9pm, he ate a late lunch and skipped dinner 2. ONSET: 9pm 3. BLOOD GLUCOSE: 219 after some gum drops 4. USUAL RANGE: 120 5. TYPE 1 or 2: 2 6. INSULIN: yes 7. DIABETES PILLS: no 8. OTHER SYMPTOMS no 9. LOW BLOOD GLUCOSE TREATMENT: gum drops 10. FOOD: last ate at 930pm, had a turkey sandwich 1. ALONE: Protocols used: DIABETES - LOW BLOOD BCHUL-OBOEI-WG advised to update the office tomorrow documented in this encounter [facility] 10-25-2021 History of Present illness Narrative [facility] Initial Outpatient Visit Justin Barone CC#: [id number] Date of Service: 10/25/2021 Primary Care Provider: Quinn Sharp MD [address] [address] The patient was referred by Cornelio Persaud MD for opinion regarding carotid stenosis. I will provide a written report of my findings to the referring through letter, e communication, or epic. OUTPATIENT CONSULTATION Chief complaint: Asymptomatic carotid stenosis History of present illness: Justin Barone is a 71 year old R handed male w PMH diabetes, alcohol abuse, smoking, HLD, DDD lumbar spine s/p surgery, back pain limiting mobility, who presents for evaluation of asymptomatic carotid stenosis. He was admitted to the hospital in July 2021 after falls. Initially he fell at home in the garage, 2 weeks later she was at the store when he fell. It was unclear if was related to alcohol use. Patient also had a history of COVID infection, and it is unclear if that played a part. The patient was in rehab until recently when he was able to return home. He is still walks with a walker. He stopped smoking 4 months ago. He claims that he has not been drinking alcohol much recently. At the time of his admission to the hospital in July, work-up demonstrated no evidence of intracranial hemorrhage or ischemia, however, the possibility of severe right carotid stenosis was raised. This was seen on CT angiogram, however, carotid ultrasound did not confirm the stenosis. He was started on aspirin, cholesterol medication and blood pressure treatment. He presents today with his to discuss available management options for his carotid stenosis. Hypertension Y Coronary Artery Disease N Diabetes Y Obesity NA Dyslipidemia NA Tobacco Use (Please Update Smoking History) Y Stroke N Intracranial Aneurysm NA Past Medical History: ACTIVE PROBLEM LIST Sprain of Lumbar Region Displacement of Lumbar Intervertebral Disc Without Myelopathy Thoracic Or Lumbosacral Neuritis Or Radiculitis, Unspecified DUPUYTREN'S CONTRACTURE Pain in Joint, Hand Carpal Tunnel Syndrome Osteoarthrosis, Unspecified Whether Generalized Or Localized, Other Specified Sites Pseudophakia of Left Eye Borderline Glaucoma With Ocular Hypertension S/P Lumbar Fusion Spondylolisthesis of Lumbar Region Chronic Bilateral Low Back Pain Without Sciatica Combined Forms of Age-Related Cataract of Right Eye Ns (Nuclear Sclerosis), Right Posterior Subcapsular Polar Age-Related Cataract of Right Eye Syncope Elevated Troponin Nicotine use disorder, F17.2 Obesity, Class I, Bmi 30-34.9 Type 2 Diabetes Mellitus With Hyperglycemia (Hcc) Essential Hypertension Mixed Hyperlipidemia Covid-19 Frequent Falls Granular Casts 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 Multiple Falls Acute Respiratory Failure With Hypoxia (Hcc) Cardiomyopathy, Ischemic Stenosis of Right Carotid Artery PAST SURGICAL HISTORY Procedure Laterality Date ARTHRD ANT INTERBODY MIN DSC LUMBAR 1988 NEUROPLASTY &/TRANSPOS MEDIAN NRV CARPAL TUNNE 2008 Carpal tunnel decomp Lt. XCAPSL CTRC RMVL INSJ IO LENS PROSTH W/O ECP 09/2012 Cataract Extraction with PC IOL left Allergies: Patient has no known allergies. Medications: Current Outpatient Medications Medication Sig losartan (COZAAR) 25 mg tablet Take 0.5 tablets by mouth once daily. insulin glargine (LANTUS SOLOSTAR, BASAGLAR KWIKPEN) 100 unit/mL (3 mL) Inject 16 Units subcutaneously every morning. insulin lispro 100 unit/mL injection ADMINISTER CORRECTIONAL INSULIN REGARDLESS OF MEAL OR NUTRITION INTAKE Scale 3 If Blood Glucose (mg/dL) is: Less than 110 Give 0 units 111-150 Give 1 unit 151-200 Give 3 units 201-250 Give 6 units 251-300 Give 9 units 301-350 Give 12 units 351-400 Give 15 units Greater than 400 Give 15 units and Notify Provider Notify provider if 2 consecutive blood glucose values in the previous 24 hours are greater than 250 mg/mL and there have been no changes to the insulin regimen in the previous 24 hours. insulin lispro 100 unit/mL injection ADMINISTER CORRECTIONAL INSULIN REGARDLESS OF MEAL OR NUTRITION INTAKE Scale 2 If Blood Glucose (mg/dL) is: Less than 110 Give 0 units 111-150 Give 0 units 151-200 Give 2 units 201-250 Give 4 units 251-300 Give 6 units 301-350 Give 8 units 351-400 Give 10 units Greater than 400 Give 10 units and Notify Provider Notify provider if 2 consecutive blood glucose values in the previous 24 hours are greater than 250 mg/mL and there have been no changes to the insulin regimen in the previous 24 hours. polyethylene glycol 3350 (MIRALAX, GLYCOLAX) 17 gram packet Take 1 Packet by mouth once daily. Dissolve dose in 4 - 8 ounces of liquid and take as directed. acetaminophen (TYLENOL) 325 mg tablet Take 1-2 tablets by mouth every 6 hours as needed for pain or fever (specify). albuterol HFA (PROVENTIL HFA, VENTOLIN HFA) 90 mcg/actuation inhaler Inhale 2 Puffs as instructed every 4 hours as needed for wheezing/shortness of breath. atorvastatin (LIPITOR) 80 mg tablet 1 tablet by ORAL/FEEDING TUBE route daily at bedtime. metoprolol succinate ER (TOPROL XL) 25 mg 24 hr tablet Take 1 tablet by mouth once daily. aspirin 81 mg chewable tablet 1 tablet by ORAL/FEEDING TUBE route once daily. No current facility-administered medications for this visit. Social History Tobacco Use Smoking status: Current Some Day Smoker Packs/day: 0.50 Years: 20.00 Pack years: 10.00 Types: Cigars Smokeless tobacco: Never Used Substance Use Topics Alcohol use: Yes Alcohol/week: 60.0 standard drinks Types: 24 Cans of Beer (12oz) per week Drug use: No Illicit Drug Use: no Family History: Subarachnoid hemorrhage: None Aneurysms: None Stroke: None Vascular malformations: None Other neurologic diseases: None Review of Systems Constitutional Positive for Fatigue Eyes: Negative Hent: Negative Cardiovascular: Negative Respiratory Positive for SOB with exertion GI: Negative : Negative Endocrine: Negative Musculoskeletal: Negative Integumentary: Negative Heme/Lymph: Negative Allergy/Immunologic: Negative Neurologic Positive for Weakness (walker for distances, home PT) Psychiatric: Negative Patient's Review of Systems has been reviewed with the patient and updated as appropriate. Patient Entered Questionnaires PROMIS/NeuroQoL Score Percentiles PROMIS Global Health Scale 11/14/2016 05/23/2016 10/05/2015 Physical Health Percentile 15 22* 15 Mental Health Percentile 13 34 13 Percentiles provide an indication of how a patient's score ranks in relation to the [place] general population. > 31st percentile is within normal limits or better * < 31st percentile is at least SD worse than population, which may be clinically relevant < 16th percentile is at least 1 SD worse than population and warrants attention Depression Screening: PHQ-9 02/26/2018 06/13/2018 01/28/2019 Score 5 3 8 Self-Harm Response 0 0 0 PHQ-9 Scores: PHQ-9 Self-Harm (Item 9) Response: 0 - 9 No to Mild depression 0 - Not at all 10 - 14 Moderate depression 1 - Several Days > 15 Severe depression 2 - More than half the days 3 - Nearly every day PHYSICAL EXAMINATION BP 136/69 (BP Site: Right Arm, BP Position: Sitting, BP Cuff Size: Regular Adult) Pulse 88 Ht 180.3 cm (5' 11) Wt 103.4 kg (228 lb) SpO2 96% BMI 31.80 kg/m General: Not in acute distress, pleasant elderly male, well-developed, well-nourished Head: atraumatic, normocephalic Eyes: No scleral icterus, no conjunctival injection Neck: supple, no JVD Cardiovascular: Normal S1/S2, no murmurs, RRR Lungs: Clear to auscultation bilaterally Abdomen: Soft, nondistended, nontender Extremities: No edema, clubbing or cyanosis noted. Skin: No significant bruising or rash Neurological: Mental status: Alert, awake and oriented x3. Speech, language is grossly normal. Decreased attention span. Positive for psychomotor slowing. Cranial nerves: Pupils equal, reactive. EOMI. Visual ramon full. Normal facial sensation. No facial asymmetry. Uvula midline, symmetric palatal elevation. Symmetric shoulder shrug. Tongue midline. Motor: Normal bulk, tone and strength bilaterally. No pronator drift. Sensory: Normal to soft touch and temperature bilaterally. Coordination: No dysmetria or ataxia Gait: Walks with a walker. IMAGING Carotid ultrasound October 2021: The stenosis estimation in the right ICA based on peak systolic velocity Is 50-69%, and based on end-diastolic velocity and ICA/CCA ratio is 70-99% by NASCET criteria. Right ICA PSV 291, ICA/CCA ratio 3.8 Carotid ultrasound Jul 2021: 1. RIGHT ICA: 30-49% stenosis 2. LEFT ICA: <30% stenosis PSV right 136, left 94. ICA/CCA ratio right 1.76, left 1.19 CTA head/neck Jul 2021: No acute intracranial or extracranial large vessel occlusion. Approximately 80% stenosis of the proximal right ICA and 30% stenosis of he left proximal ICA by NASCET criteria. Additional mild intracranial extracranial stenoses MRI brain Jul 2021: No evidence of an acute infarct or other acute intracranial process. Chronic changes ncluding chronic microvascular ischemia, moderate generalized volume loss. Labs Cholesterol, Total Date Value Ref Range Status 07/23/2021 204 (H) <200 mg/dL Final HDL Cholesterol Date Value Ref Range Status 07/23/2021 37 (L) >39 mg/dL Final LDL Cholesterol Date Value Ref Range Status 07/23/2021 133 (H) <100 mg/dL Final Triglyceride Date Value Ref Range Status 07/23/2021 168 (H) <150 mg/dL Final Lab Results Component Value Date HBA1C 9.7 07/24/2021 HBA1C 7.3 03/21/2021 HBA1C 8.6 12/14/2020 Stroke Mechanism and Scales Cerebrovascular Disease w/o Stroke Event: Carotid Stenosis NIH Stroke Scale: LOC: 0 LOC Questions: 0 LOC Commands: 0 LOC Normal Gaze: 0 Visual Ramon: 0 Facial Palsy: 0 Motor Left Arm: 0 Motor Right Arm: 0 Motor Left Le Motor Right Le Limb Ataxia: 0 Sensory: 0 Language: 0 Dysarthria: 0 Extinction/Neglect: 0 Total Daily NIHSS: 0 IMPRESSION Asymptomatic right carotid stenosis. Discovered incidentally during work-up for syncope and fall in July 2021. Current carotid ultrasound confirms findings on previous CTA. I had an extensive discussion with the patient and his about available management options. It is reassuring that no stroke symptoms or neurologic problems occurred since the carotid stenosis was incidentally discovered 3 months ago. I discussed the possibility of carotid revascularization (CEA versus carotid stent) with the patient and his . The patient is reluctant to proceed with invasive procedure at this time since he just got out of rehab and still recovering. We talked about the possibility of continuing medical therapy and rechecking the artery in 3 months for any progression, however, I also explained that he remains at risk for ischemic events. The patient expressed understanding and would like to proceed with conservative management and short-term follow-up for now. The patient and his were educated about the signs and symptoms of stroke, and they were requested to seek immediate medical attention if new symptoms develop. All questions were answered. PLAN 1. Repeat carotid ultrasound in 3 months. Patient reluctant to proceed with carotid revascularization at this time. See discussion above. 2. Blood pressure and vascular risk factor control 3. Continue antiplatelet therapy 4. Alcohol and smoking cessation 5. Education provided about the risk of stroke and ischemia Thank you very much for this consultation. Questions asked/ answered. Follow-up with results/ adherence to plan/ continued education. SIGNATURE Ramos Erwin MD October 25, 2021 CC Cornelio Persaud [id number] [facility] [id number] Quinn Sharp ([facility]) [address] [id number] documented in this encounter [facility] 10-12-2021 Instructions Cornelio Persaud MD - 10/12/2021 10:32 AM EDT --Aspirin 81mg daily --atorvastatin 80mg bedtime --carotid US at [facility] --consult Dr. Ames or Rip at [facility] for diagnostic angiogram --consider to follow up with spine medicine for your back --follow up with me in 3-4 months documented in this encounter [facility] 10-12-2021 History of Present illness Narrative Images from the original note were not included. [facility] Follow up/ Established patient visit Individuals who were included in, or assisted with the encounter were: Justin Persaud MD Chief Complaint/Issues: Justin Barone is a 71 year old R handed male w PMH diabetes, alcohol abuse, smoking, HLD, R carotid 80% stenosis (asymptomatic), DDD L spine s/p surgery but still has back pain limiting his mobility seen in the [facility] for: 1. Carotid stenosis Most Recent Neurological Assessment and Plan: Last Filed Values None HPI/Interval History: He was admitted on 07/22/2021 after a fall. Patient reports slipping and falling on his concrete garage steps after his heel hit one of the steps. Per reports he was too weak to stand and son was called to help him. Per note the son noticed confusion and slurred speech and unsure if he has been drinking. Per note Patient reportedly had 2 syncopal episodes during transport with EMS. However he denied. MRI brain: no acute stroke CTA head and neck: Approximately 80% stenosis of the proximal right ICA and 30% stenosis of the left proximal ICA. CUS 07/23/2021 1. RIGHT ICA: 30-49% stenosis 2. LEFT ICA: <30% stenosis He was discharged to Rehab. He can walk independently but slow. said he now walks better than prior to the fall. He quit smoking. Current medication: aspirin 81mg and atorvastatin 80mg. General Examination: BP 112/74 Pulse 95 Ht 180.3 cm (5' 11) Wt 103.7 kg (228 lb 9.6 oz) SpO2 100% BMI 31.88 kg/m General: Awake, alert, interactive, no acute distress, good nutritional status, normal development, well-kept Neurological Exam Mental Status Alert, fully oriented, attentive, speech is fluent Cranial Nerves Visual ramon intact. Fundi with normal discs and vasculature. Pupils reactive. Extraocular movements conjugate and full. No ptosis. No nystagmus. Facial sensation intact. Face symmetric and strong. Palate and tongue normal. XI normal. Motor Examination and Coordination Motor examination with normal bulk, strength and tone. No drift. Normal rapid alternating movements and coordination. No adventitious movements or significant tremor. Reflexes Deep tendon reflexes graded by [facility] Deep Tendon Reflexes Right Left Biceps 2 2 Triceps 2 2 Brachioradialis 2 2 Patellar 0 0 Achilles 1 1 Gait Arises easily. Walks with a walker, slow pace. Assessment & Plan 10/12/2021 - General Neurology, Cornelio Persaud MD ASSESSMENT Justin Barone is a 71 year old R handed male w PMH diabetes, alcohol abuse, smoking, HLD, R carotid 80% stenosis (asymptomatic), DDD L spine s/p surgery but still has back pain limiting his mobility seen in the [facility] for: Carotid stenosis --Right carotid 80% stenosis. No significant calcification. Discrepancy between CTA and CUS in degree of stenosis estimation. I think CTA estimation is more accurate and CUS might underestimated the lesion. Nonetheless, it is asymptomatic. I put him on maximal medical management. Will recheck CUS at [facility]. Will also refer him to neurointerventionalist for diagnostic angiogram to get a better estimat of the degree of stenosis. --HLP: LDL 133 --DMII --smoking: he has quit --DDD L spine s/p surgery: he needs to follow up with spine medicine. He declined referral or repeat MRI of L spine PLAN --Aspirin 81mg daily --atorvastatin 80mg bedtime --carotid US at [facility] --consult Dr. Ames or Rip at [facility] for diagnostic angiogram --consider to follow up with spine medicine for your back --follow up with me in 3-4 months No diagnosis found. No follow-ups on file. Data Review Objective Current Outpatient Medications Medication Sig losartan (COZAAR) 25 mg tablet Take 0.5 tablets by mouth once daily. insulin glargine (LANTUS SOLOSTAR, BASAGLAR KWIKPEN) 100 unit/mL (3 mL) Inject 16 Units subcutaneously every morning. insulin lispro 100 unit/mL injection ADMINISTER CORRECTIONAL INSULIN REGARDLESS OF MEAL OR NUTRITION INTAKE Scale 3 If Blood Glucose (mg/dL) is: Less than 110 Give 0 units 111-150 Give 1 unit 151-200 Give 3 units 201-250 Give 6 units 251-300 Give 9 units 301-350 Give 12 units 351-400 Give 15 units Greater than 400 Give 15 units and Notify Provider Notify provider if 2 consecutive blood glucose values in the previous 24 hours are greater than 250 mg/mL and there have been no changes to the insulin regimen in the previous 24 hours. insulin lispro 100 unit/mL injection ADMINISTER CORRECTIONAL INSULIN REGARDLESS OF MEAL OR NUTRITION INTAKE Scale 2 If Blood Glucose (mg/dL) is: Less than 110 Give 0 units 111-150 Give 0 units 151-200 Give 2 units 201-250 Give 4 units 251-300 Give 6 units 301-350 Give 8 units 351-400 Give 10 units Greater than 400 Give 10 units and Notify Provider Notify provider if 2 consecutive blood glucose values in the previous 24 hours are greater than 250 mg/mL and there have been no changes to the insulin regimen in the previous 24 hours. polyethylene glycol 3350 (MIRALAX, GLYCOLAX) 17 gram packet Take 1 Packet by mouth once daily. Dissolve dose in 4 - 8 ounces of liquid and take as directed. acetaminophen (TYLENOL) 325 mg tablet Take 1-2 tablets by mouth every 6 hours as needed for pain or fever (specify). albuterol HFA (PROVENTIL HFA, VENTOLIN HFA) 90 mcg/actuation inhaler Inhale 2 Puffs as instructed every 4 hours as needed for wheezing/shortness of breath. atorvastatin (LIPITOR) 80 mg tablet 1 tablet by ORAL/FEEDING TUBE route daily at bedtime. metoprolol succinate ER (TOPROL XL) 25 mg 24 hr tablet Take 1 tablet by mouth once daily. aspirin 81 mg chewable tablet 1 tablet by ORAL/FEEDING TUBE route once daily. No current facility-administered medications for this visit. ACTIVE PROBLEM LIST Sprain of Lumbar Region Displacement of Lumbar Intervertebral Disc Without Myelopathy Thoracic Or Lumbosacral Neuritis Or Radiculitis, Unspecified DUPUYTREN'S CONTRACTURE Pain in Joint, Hand Carpal Tunnel Syndrome Osteoarthrosis, Unspecified Whether Generalized Or Localized, Other Specified Sites Pseudophakia of Left Eye Borderline Glaucoma With Ocular Hypertension S/P Lumbar Fusion Spondylolisthesis of Lumbar Region Chronic Bilateral Low Back Pain Without Sciatica Combined Forms of Age-Related Cataract of Right Eye Ns (Nuclear Sclerosis), Right Posterior Subcapsular Polar Age-Related Cataract of Right Eye Syncope Elevated Troponin Nicotine use disorder, F17.2 Obesity, Class I, Bmi 30-34.9 Type 2 Diabetes Mellitus With Hyperglycemia (Hcc) Essential Hypertension Mixed Hyperlipidemia Covid-19 Frequent Falls Granular Casts 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 Multiple Falls Acute Respiratory Failure With Hypoxia (Hcc) Cardiomyopathy, Ischemic PAST MEDICAL HISTORY Diagnosis Date Carpal tunnel syndrome of left wrist Carpal tunnel syndrome on right Dependence on nicotine from cigarettes Essential hypertension 08/03/2021 Mixed hyperlipidemia Osteoarthritis Pseudophakia of left eye 09/2012 Sleep apnea Spinal stenosis Thoracic or lumbosacral neuritis or radiculitis, unspecified Type 2 diabetes mellitus with hyperglycemia (HCC) 08/03/2021 PAST SURGICAL HISTORY Procedure Laterality Date ARTHRD ANT INTERBODY MIN DSC LUMBAR 1989 NEUROPLASTY &/TRANSPOS MEDIAN NRV CARPAL TUNNE 2009 Carpal tunnel decomp Lt. XCAPSL CTRC RMVL INSJ IO LENS PROSTH W/O ECP 09/2012 Cataract Extraction with PC IOL left Social History Tobacco Use Smoking status: Current Some Day Smoker Packs/day: 0.50 Years: 20.00 Pack years: 10.00 Types: Cigars Smokeless tobacco: Never Used Substance Use Topics Alcohol use: Yes Alcohol/week: 60.0 standard drinks Types: 24 Cans of Beer (12oz) per week Drug use: No FAMILY HISTORY Problem Relation Age of Onset Diabetes Mother Heart Mother Hypertension Mother Stroke Mother Cataract Mother Glaucoma Mother Macular Degen Father Cancer Sister Headache Brother Cancer Brother Review of Systems Lab and Test Review: Results for orders placed or performed in visit on 09/13/21 ECG COMPLETE Result Value Ref Range Ventricular Rate 106 BPM Atrial Rate 106 BPM P-R Interval 162 ms QRS Duration 100 ms QT Interval 346 ms QTC Calculation (Bazett) 459 ms Calculated P [place] -4 degrees Calculated R [place] -24 degrees Calculated T [place] 6 degrees Outside Data/Labs: Subjective Patient-Entered Data: 10/12/21 - GENERAL NEUROLOGY SCORES No flowsheet data found. Depression Screening 02/26/2018 06/13/2018 01/28/2019 PHQ-2 Score 1 1 2 PHQ-9 Score 5 3 8 No flowsheet data found. No flowsheet data found. No flowsheet data found. I spent a total of 60 minutes on the date of the service which included preparing to see the patient, [id number] patient care, completing clinical documentation, obtaining and/or reviewing separately obtained history, performing a medically appropriate examination, counseling and educating the patient/family/caregiver, ordering medications, tests, or procedures, independently interpreting results (not separately reported), communicating results to the patient/family/caregiver and care coordination (not separately reported). Cornelio Persaud MD documented in this encounter [facility] 09-26-2021 Miscellaneous Notes Images from the original note were not included. Result Care Coordination Result Notes Priscilla Salas MD 09/24/2021 2:27 PM EDT Back to Top Nuclear stress test showed moderate size old heart attack / scarring but no ischemia of the heart muscle. Continue present medical therapy Called patient. Aware of above results from Dr. Salas and recommendations. Patient stated okay to discuss medical information with . demographics updated. Patient verbalized understanding. No further questions or concerns. was calling to get the results from the stress documented in this encounter [facility] 09-22-2021 History of Present illness Narrative RADIOLOGY SERVICE PROGRESS NOTE SERVICE DATE: 09/22/2021 SERVICE TIME: 1:20 PM PATIENT IDENTITY VERIFICATION COMPLETED USING TWO (2) STANDARD IDENTIFIERS: Name and Date of confirmed by patient verbally FALL SCREENING: Has the patient had 2 falls in the last year or 1 fall with injury or currently using an Ambulatory Assistive Device (Walker, Cane, Wheelchair, Crutches, etc.)? Yes, Patient High Risk for Falls What interventions were put in place to prevent falls during this visit? [place] Falls Risk Wristband Applied PATIENT GENDER DATA: .male ALLERGIES: Reviewed and unchanged MEDICATIONS REVIEWED: No PATIENT RELEVANT IMPLANT DATA REVIEWED: Not Applicable CREATININE: Creatinine Date Value Ref Range Status 08/16/2021 0.69 (L) 0.73 - 1.22 mg/dL Final 08/15/2021 0.76 0.73 - 1.22 mg/dL Final 08/14/2021 0.71 (L) 0.73 - 1.22 mg/dL Final Estimated Glomerular Filtration Rate Date Value Ref Range Status 08/16/2021 98 >=60 mL/min/1.73m Final Comment: Estimated Glomerular Filtration Rate (eGFR) is calculated using the 2020 CKD-EPI creatinine equation. This equation utilizes serum creatinine, sex, and age as parameters. The creatinine assay has traceable calibration to isotope dilution-mass spectrometry. Refer to KDIGO guidelines for clinical interpretation. In patients with unstable renal function, e.g. those with acute kidney injury, the eGFR may not accurately reflect actual GFR. eGFR- Date Value Ref Range Status 08/05/2021 >60 Final P.O.C.T. RESULTS: N/A September 22, [address] PERFORMED: No IV SITE: Ambulatory: A peripheral IV was started in the Right antecubital site with a Angio cath: 24 gauge. POST EXAM PIV STATUS: Discontinued PROCEDURE TYPE: NM Stress: 13.3mCi [id number] was administered IV for Rest Imaging at 1303 by RT Roger(R) . 33.1 mCi [id number] was administered IV for Stress Imaging at 1358 by RT Roger(R) . PATIENT DISCHARGED TO: Ambulatory patient, left NM department area. A Diagnostic radioactive procedure has taken place, with no further precautions necessary other than routine body substance precautions. More information regarding radiation safety can be found using this link: [email or web address] SIGNATURE: RT Roger(R) PATIENT NAME: Justin Barone DATE: September 22, 2021 TIME: 1:20 PM PAGER/CONTACT #: documented in this encounter [facility] 09-07-2021 History of Present illness Narrative TRANSITION CARE MANAGEMENT (TCM) INITIAL CONTACT Call Summary: Justin Barone transitioned from short stay to non short stay at [facility] on 09/05/2021. No TCM calls at this time as patient discharged to Long-Term Care Facility. No further call needed at this time. Rina Mcdowell RN September 07, 2021 8:22 AM documented in this encounter [facility] 08-10-2021 History of Past i llness Narrative Problem Noted Date Resolved Date Acute respiratory failure with hypoxia 2 10/10/2022 Last Assessment & Plan: Assessment: -See HPI -ABG 7.48/ PLAN: -Start Airvo therapy, wean as tolerated Multiple falls 08/04/2021 10/10/2022 COVID-19 08/03/2021 10/10/2022 Last Assessment & Plan: Assessment: -See HPI -+ as of 08/04 -ID following -IV decadron -Remdesivir PLAN: -NPO -Wean Airvo as tolerated -Continue remdesivir and decadron Frequent falls 08/03/2021 10/10/2022 Last Assessment & Plan: Assessment: -Hx PLAN: -Fall precautions -Bed alarm Syncope 07/23/2021 10/10/2022 Elevated troponin 07/23/2021 10/10/2022 Slurred speech 07/23/2021 07/24/2021 Leukocytosis 07/23/2021 07/24/2021 Altered mental status 07/23/2021 07/24/2021 Thoracic or lumbosacral neuritis or radiculitis, unspecified 11/23/2000 10/10/2022 documented as of this encounter (statuses as of 10/23/2022) [facility] History of Past illness Narrative* Problem Noted Date Resolved Date Acute respiratory failure with hypoxia 10/10/2022 Last Assessment & Plan: Assessment: -See HPI -ABG 7.48/ PLAN: -Start Airvo therapy, wean as tolerated Multiple falls 08/04/2021 10/10/2022 COVID-19 08/03/2021 10/10/2022 Last Assessment & Plan: Assessment: -See HPI -+ as of 08/04 -ID following -IV decadron -Remdesivir PLAN: -NPO -Wean Airvo as tolerated -Continue remdesivir and decadron Frequent falls 08/03/2021 10/10/2022 Last Assessment & Plan: Assessment: -Hx PLAN: -Fall precautions -Bed alarm Syncope 07/23/2021 10/10/2022 Elevated troponin 07/23/2021 10/10/2022 Slurred speech 07/23/2021 07/24/2021 Leukocytosis 07/23/2021 07/24/2021 Altered mental status 07/23/2021 07/24/2021 Thoracic or lumbosacral neuritis or radiculitis, unspecified 11/23/2000 10/10/2022 documented as of this encounter (statuses as of 11/13/2022) [facility] History of Past illness Narrative* Problem Noted Date Resolved Date Acute respiratory failure with hypoxia 2 10/10/2022 Last Assessment & Plan: Assessment: -See HPI -ABG 7.48/ PLAN: -Start Airvo therapy, wean as tolerated Multiple falls 08/04/2021 10/10/2022 COVID-19 08/03/2021 10/10/2022 Last Assessment & Plan: Assessment: -See HPI -+ as of 08/04 -ID following -IV decadron -Remdesivir PLAN: -NPO -Wean Airvo as tolerated -Continue remdesivir and decadron Frequent falls 08/03/2021 10/10/2022 Last Assessment & Plan: Assessment: -Hx PLAN: -Fall precautions -Bed alarm Syncope 07/23/2021 10/10/2022 Elevated troponin 07/23/2021 10/10/2022 Slurred speech 07/23/2021 07/24/2021 Leukocytosis 07/23/2021 07/24/2021 Altered mental status 07/23/2021 07/24/2021 Thoracic or lumbosacral neuritis or radiculitis, unspecified 11/23/2000 10/10/2022 documented as of this encounter (statuses as of 12/01/2022) [facility] History of Past illness Narrative* Problem Noted Date Resolved Date Acute respiratory failure with hypoxia 2 10/10/2022 Last Assessment & Plan: Assessment: -See HPI -ABG 7.48/ PLAN: -Start Airvo therapy, wean as tolerated Multiple falls 08/04/2021 10/10/2022 COVID-19 08/03/2021 10/10/2022 Last Assessment & Plan: Assessment: -See HPI -+ as of 08/04 -ID following -IV decadron -Remdesivir PLAN: -NPO -Wean Airvo as tolerated -Continue remdesivir and decadron Frequent falls 08/03/2021 10/10/2022 Last Assessment & Plan: Assessment: -Hx PLAN: -Fall precautions -Bed alarm Syncope 07/23/2021 10/10/2022 Elevated troponin 07/23/2021 10/10/2022 Slurred speech 07/23/2021 07/24/2021 Leukocytosis 07/23/2021 07/24/2021 Altered mental status 07/23/2021 07/24/2021 Thoracic or lumbosacral neuritis or radiculitis, unspecified 11/23/2000 10/10/2022 documented as of this encounter (statuses as of 12/15/2022) [facility] History of Past illness Narrative* Problem Noted Date Diagnosed Date Resolved Date Acute respiratory failure with hypoxia 08/10/2021 10/10/2022 Last Assessment & Plan: Assessment: -See HPI -ABG 7.48/ PLAN: -Start Airvo therapy, wean as tolerated Multiple falls 08/04/2021 10/10/2022 COVID-19 08/03/2021 10/10/2022 Last Assessment & Plan: Assessment: -See HPI -+ as of 08/04 -ID following -IV decadron -Remdesivir PLAN: -NPO -Wean Airvo as tolerated -Continue remdesivir and decadron Frequent falls 08/03/2021 10/10/2022 Last Assessment & Plan: Assessment: -Hx PLAN: -Fall precautions -Bed alarm Syncope 07/23/2021 10/10/2022 Elevated troponin 07/23/2021 10/10/2022 Slurred speech 07/23/2021 07/24/2021 Leukocytosis 07/23/2021 07/24/2021 Altered mental status 07/23/20212021 Thoracic or lumbosacral neur itis or radiculitis, unspecified 11/23/2000 10/10/2022 documented as of this encounter (statuses as of 12/22/2022) [facility] History of Past illness Narrative* Problem Noted Date Diagnosed Date Resolved Date Acute respiratory failure with hypoxia 08/10/2021 10/10/2022 Last Assessment & Plan: Assessment: -See HPI -ABG 7.48// PLAN: -Start Airvo therapy, wean as tolerated Multiple falls 08/04/2021 10/10/2022 COVID-19 08/03/2021 10/10/2022 Last Assessment & Plan: Assessment: -See HPI -+ as of 08/04 -ID following -IV decadron -Remdesivir PLAN: -NPO -Wean Airvo as tolerated -Continue remdesivir and decadron Frequent falls 08/03/2021 10/10/2022 Last Assessment & Plan: Assessment: -Hx PLAN: -Fall precautions -Bed alarm Syncope 07/23/2021 10/10/2022 Elevated troponin 07/23/2021 10/10/2022 Slurred speech 07/23/2021 07/24/2021 Leukocytosis 07/23/2021 07/24/2021 Altered mental status 07/23/20212021 Thoracic or lumbosacral neur itis or radiculitis, unspecified 11/23/2000 10/10/2022 documented as of this encounter (statuses as of 01/31/2023) [facility] History of Past illness Narrative* Problem Noted Date Diagnosed Date Resolved Date Acute respiratory failure with hypoxia 08/10/2021 10/10/2022 Last Assessment & Plan: Assessment: -See HPI -ABG 7.48 PLAN: -Start Airvo therapy, wean as tolerated Multiple falls 08/04/2021 10/10/2022 COVID-19 08/03/2021 10/10/2022 Last Assessment & Plan: Assessment: -See HPI -+ as of 08/04 -ID following -IV decadron -Remdesivir PLAN: -NPO -Wean Airvo as tolerated -Continue remdesivir and decadron Frequent falls 08/03/2021 10/10/2022 Last Assessment & Plan: Assessment: -Hx PLAN: -Fall precautions -Bed alarm Syncope 07/23/2021 10/10/2022 Elevated troponin 07/23/2021 10/10/2022 Slurred speech 07/23/2021 07/24/2021 Leukocytosis 07/23/2021 07/24/2021 Altered mental status 07/23/20212021 Thoracic or lumbosacral neur itis or radiculitis, unspecified 11/23/2000 10/10/2022 documented as of this encounter (statuses as of 02/09/2023) [facility] History of Past illness Narrative* Problem Noted Date Diagnosed Date Resolved Date Acute respiratory failure with hypoxia 08/10/2021 10/10/2022 Last Assessment & Plan: Assessment: -See HPI -ABG 7.48/ PLAN: -Start Airvo therapy, wean as tolerated Multiple falls 08/04/2021 10/10/2022 COVID-19 08/03/2021 10/10/2022 Last Assessment & Plan: Assessment: -See HPI -+ as of 08/04 -ID following -IV decadron -Remdesivir PLAN: -NPO -Wean Airvo as tolerated -Continue remdesivir and decadron Frequent falls 08/03/2021 10/10/2022 Last Assessment & Plan: Assessment: -Hx PLAN: -Fall precautions -Bed alarm Syncope 07/23/2021 10/10/2022 Elevated troponin 07/23/2021 10/10/2022 Slurred speech 07/23/2021 07/24/2021 Leukocytosis 07/23/2021 07/24/2021 Altered mental status 07/23/20212021 Thoracic or lumbosacral neur itis or radiculitis, unspecified 11/23/2000 10/10/2022 documented as of this encounter (statuses as of 02/09/2023) [facility] History of Past illness Narrative* Problem Noted Date Diagnosed Date Resolved Date Acute respiratory failure with hypoxia 08/10/2021 10/10/2022 Last Assessment & Plan: Assessment: -See HPI -ABG 7.48/ PLAN: -Start Airvo therapy, wean as tolerated Multiple falls 08/04/2021 10/10/2022 COVID-19 08/03/2021 10/10/2022 Last Assessment & Plan: Assessment: -See HPI -+ as of 08/04 -ID following -IV decadron -Remdesivir PLAN: -NPO -Wean Airvo as tolerated -Continue remdesivir and decadron Frequent falls 08/03/2021 10/10/2022 Last Assessment & Plan: Assessment: -Hx PLAN: -Fall precautions -Bed alarm Syncope 07/23/2021 10/10/2022 Elevated troponin 07/23/2021 10/10/2022 Slurred speech 07/23/2021 07/24/2021 Leukocytosis 07/23/2021 07/24/2021 Altered mental status 07/23/20212021 Thoracic or lumbosacral neur itis or radiculitis, unspecified 11/23/2000 10/10/2022 documented as of this encounter (statuses as of 02/19/2023) [facility] History of Past illness Narrative* Problem Noted Date Diagnosed Date Resolved Date Acute respiratory failure with hypoxia 08/10/2021 10/10/2022 Last Assessment & Plan: Assessment: -See HPI -ABG 7.48/ PLAN: -Start Airvo therapy, wean as tolerated Multiple falls 08/04/2021 10/10/2022 COVID-19 08/03/2021 10/10/2022 Last Assessment & Plan: Assessment: -See HPI -+ as of 08/04 -ID following -IV decadron -Remdesivir PLAN: -NPO -Wean Airvo as tolerated -Continue remdesivir and decadron Frequent falls 08/03/2021 10/10/2022 Last Assessment & Plan: Assessment: -Hx PLAN: -Fall precautions -Bed alarm Syncope 07/23/2021 10/10/2022 Elevated troponin 07/23/2021 10/10/2022 Slurred speech 07/23/2021 07/24/2021 Leukocytosis 07/23/2021 07/24/2021 Altered mental status 07/23/20212021 Thoracic or lumbosacral neur itis or radiculitis, unspecified 11/23/2000 10/10/2022 documented as of this encounter (statuses as of 04/15/2023) [facility] History of Past illness Narrative* Problem Noted Date Diagnosed Date Resolved Date Acute respiratory failure with hypoxia 08/10/2021 10/10/2022 Last Assessment & Plan: Assessment: -See HPI -ABG 7.48/ PLAN: -Start Airvo therapy, wean as tolerated Multiple falls 08/04/2021 10/10/2022 COVID-19 08/03/2021 10/10/2022 Last Assessment & Plan: Assessment: -See HPI -+ as of 08/04 -ID following -IV decadron -Remdesivir PLAN: -NPO -Wean Airvo as tolerated -Continue remdesivir and decadron Frequent falls 08/03/2021 10/10/2022 Last Assessment & Plan: Assessment: -Hx PLAN: -Fall precautions -Bed alarm Syncope 07/23/2021 10/10/2022 Elevated troponin 07/23/2021 10/10/2022 Slurred speech 07/23/2021 07/24/2021 Leukocytosis 07/23/2021 07/24/2021 Altered mental status 07/23/20212021 Thoracic or lumbosacral neur itis or radiculitis, unspecified 11/23/2000 10/10/2022 documented as of this encounter (statuses as of 04/15/2023) [facility] History of Past illness Narrative* Problem Noted Date Diagnosed Date Resolved Date Acute respiratory failure with hypoxia 08/10/2021 10/10/2022 Last Assessment & Plan: Assessment: -See HPI -ABG 7. PLAN: -Start Airvo therapy, wean as tolerated Multiple falls 08/04/2021 10/10/2022 COVID-19 08/03/2021 10/10/2022 Last Assessment & Plan: Assessment: -See HPI -+ as of 08/04 -ID following -IV decadron -Remdesivir PLAN: -NPO -Wean Airvo as tolerated -Continue remdesivir and decadron Frequent falls 08/03/2021 10/10/2022 Last Assessment & Plan: Assessment: -Hx PLAN: -Fall precautions -Bed alarm Syncope 07/23/2021 10/10/2022 Elevated troponin 07/23/2021 10/10/2022 Slurred speech 07/23/2021 07/24/2021 Leukocytosis 07/23/2021 07/24/2021 Altered mental status 07/23/20212021 Thoracic or lumbosacral neur itis or radiculitis, unspecified 11/23/2000 10/10/2022 documented as of this encounter (statuses as of 04/18/2023) [facility] History of Past illness Narrative* Problem Noted Date Diagnosed Date Resolved Date Acute respiratory failure with hypoxia 08/10/2021 10/10/2022 Last Assessment & Plan: Assessment: -See HPI -ABG 7.48/ PLAN: -Start Airvo therapy, wean as tolerated Multiple falls 08/04/2021 10/10/2022 COVID-19 08/03/2021 10/10/2022 Last Assessment & Plan: Assessment: -See HPI -+ as of 08/04 -ID following -IV decadron -Remdesivir PLAN: -NPO -Wean Airvo as tolerated -Continue remdesivir and decadron Frequent falls 08/03/2021 10/10/2022 Last Assessment & Plan: Assessment: -Hx PLAN: -Fall precautions -Bed alarm Syncope 07/23/2021 10/10/2022 Elevated troponin 07/23/2021 10/10/2022 Slurred speech 07/23/2021 07/24/2021 Leukocytosis 07/23/2021 07/24/2021 Altered mental status 07/23/20212021 Thoracic or lumbosacral neur itis or radiculitis, unspecified 11/23/2000 10/10/2022 documented as of this encounter (statuses as of 05/23/2023) [facility] History of Past illness Narrative* Problem Noted Date Diagnosed Date Resolved Date Acute respiratory failure with hypoxia 08/10/2021 10/10/2022 Last Assessment & Plan: Assessment: -See HPI -ABG 7.48/ PLAN: -Start Airvo therapy, wean as tolerated Multiple falls 08/04/2021 10/10/2022 COVID-19 08/03/2021 10/10/2022 Last Assessment & Plan: Assessment: -See HPI -+ as of 08/04 -ID following -IV decadron -Remdesivir PLAN: -NPO -Wean Airvo as tolerated -Continue remdesivir and decadron Frequent falls 08/03/2021 10/10/2022 Last Assessment & Plan: Assessment: -Hx PLAN: -Fall precautions -Bed alarm Syncope 07/23/2021 10/10/2022 Elevated troponin 07/23/2021 10/10/2022 Slurred speech 07/23/2021 07/24/2021 Leukocytosis 07/23/2021 07/24/2021 Altered mental status 07/23/20212021 Thoracic or lumbosacral neur itis or radiculitis, unspecified 11/23/2000 10/10/2022 documented as of this encounter (statuses as of 07/24/2023) [facility] History of Past illness Narrative* Problem Noted Date Diagnosed Date Resolved Date Acute respiratory failure with hypoxia 08/10/2021 10/10/2022 Last Assessment & Plan: Assessment: -See HPI -ABG 7.48/ PLAN: -Start Airvo therapy, wean as tolerated Multiple falls 08/04/2021 10/10/2022 COVID-19 08/03/2021 10/10/2022 Last Assessment & Plan: Assessment: -See HPI -+ as of 08/04 -ID following -IV decadron -Remdesivir PLAN: -NPO -Wean Airvo as tolerated -Continue remdesivir and decadron Frequent falls 08/03/2021 10/10/2022 Last Assessment & Plan: Assessment: -Hx PLAN: -Fall precautions -Bed alarm Syncope 07/23/2021 10/10/2022 Elevated troponin 07/23/2021 10/10/2022 Slurred speech 07/23/2021 07/24/2021 Leukocytosis 07/23/2021 07/24/2021 Altered mental status 07/23/20212021 Thoracic or lumbosacral neur itis or radiculitis, unspecified 11/23/2000 10/10/2022 documented as of this encounter (statuses as of 08/01/2023) [facility] History of Past illness Narrative* Problem Noted Date Diagnosed Date Resolved Date Acute respiratory failure with hypoxia 08/10/2021 10/10/2022 Last Assessment & Plan: Assessment: -See HPI -ABG 7.48/ PLAN: -Start Airvo therapy, wean as tolerated Multiple falls 08/04/2021 10/10/2022 COVID-19 08/03/2021 10/10/2022 Last Assessment & Plan: Assessment: -See HPI -+ as of 08/04 -ID following -IV decadron -Remdesivir PLAN: -NPO -Wean Airvo as tolerated -Continue remdesivir and decadron Frequent falls 08/03/2021 10/10/2022 Last Assessment & Plan: Assessment: -Hx PLAN: -Fall precautions -Bed alarm Syncope 07/23/2021 10/10/2022 Elevated troponin 07/23/2021 10/10/2022 Slurred speech 07/23/2021 07/24/2021 Leukocytosis 07/23/2021 07/24/2021 Altered mental status 07/23/20212021 Thoracic or lumbosacral neur itis or radiculitis, unspecified 11/23/2000 10/10/2022 documented as of this encounter (statuses as of 08/17/2023) [facility] History of Past illness Narrative* Problem Noted Date Diagnosed Date Resolved Date Acute respiratory failure with hypoxia 08/10/2021 10/10/2022 Last Assessment & Plan: Assessment: -See HPI -ABG 7.48/ PLAN: -Start Airvo therapy, wean as tolerated Multiple falls 08/04/2021 10/10/2022 COVID-19 08/03/2021 10/10/2022 Last Assessment & Plan: Assessment: -See HPI -+ as of 08/04 -ID following -IV decadron -Remdesivir PLAN: -NPO -Wean Airvo as tolerated -Continue remdesivir and decadron Frequent falls 08/03/2021 10/10/2022 Last Assessment & Plan: Assessment: -Hx PLAN: -Fall precautions -Bed alarm Syncope 07/23/2021 10/10/2022 Elevated troponin 07/23/2021 10/10/2022 Slurred speech 07/23/2021 07/24/2021 Leukocytosis 07/23/2021 07/24/2021 Altered mental status 07/23/20212021 Thoracic or lumbosacral neur itis or radiculitis, unspecified 11/23/2000 10/10/2022 documented as of this encounter (statuses as of 08/23/2023) [facility] History of Past illness Narrative* Problem Noted Date Diagnosed Date Resolved Date Acute respiratory failure with hypoxia 08/10/2021 10/10/2022 Last Assessment & Plan: Assessment: -See HPI -ABG 7.48/ PLAN: -Start Airvo therapy, wean as tolerated Multiple falls 08/04/2021 10/10/2022 COVID-19 08/03/2021 10/10/2022 Last Assessment & Plan: Assessment: -See HPI -+ as of 08/04 -ID following -IV decadron -Remdesivir PLAN: -NPO -Wean Airvo as tolerated -Continue remdesivir and decadron Frequent falls 08/03/2021 10/10/2022 Last Assessment & Plan: Assessment: -Hx PLAN: -Fall precautions -Bed alarm Syncope 07/23/2021 10/10/2022 Elevated troponin 07/23/2021 10/10/2022 Slurred speech 07/23/2021 07/24/2021 Leukocytosis 07/23/2021 07/24/2021 Altered mental status 07/23/20212021 Thoracic or lumbosacral neur itis or radiculitis, unspecified 11/23/2000 10/10/2022 documented as of this encounter (statuses as of 09/05/2023) [facility] History of Past illness Narrative* Problem Noted Date Diagnosed Date Resolved Date Acute respiratory failure with hypoxia 08/10/2021 10/10/2022 Last Assessment & Plan: Assessment: -See HPI -ABG 7.48/ PLAN: -Start Airvo therapy, wean as tolerated Multiple falls 08/04/2021 10/10/2022 COVID-19 08/03/2021 10/10/2022 Last Assessment & Plan: Assessment: -See HPI -+ as of 08/04 -ID following -IV decadron -Remdesivir PLAN: -NPO -Wean Airvo as tolerated -Continue remdesivir and decadron Frequent falls 08/03/2021 10/10/2022 Last Assessment & Plan: Assessment: -Hx PLAN: -Fall precautions -Bed alarm Syncope 07/23/2021 10/10/2022 Elevated troponin 07/23/2021 10/10/2022 Slurred speech 07/23/2021 07/24/2021 Leukocytosis 07/23/2021 07/24/2021 Altered mental status 07/23/20212021 Thoracic or lumbosacral neur itis or radiculitis, unspecified 11/23/2000 10/10/2022 documented as of this encounter (statuses as of 09/11/2023) [facility] History of Past illness Narrative* Problem Noted Date Diagnosed Date Resolved Date Acute respiratory failure with hypoxia 08/10/2021 10/10/2022 Last Assessment & Plan: Assessment: -See HPI -ABG 7.48/ PLAN: -Start Airvo therapy, wean as tolerated Multiple falls 08/04/2021 10/10/2022 COVID-19 08/03/2021 10/10/2022 Last Assessment & Plan: Assessment: -See HPI -+ as of 08/04 -ID following -IV decadron -Remdesivir PLAN: -NPO -Wean Airvo as tolerated -Continue remdesivir and decadron Frequent falls 08/03/2021 10/10/2022 Last Assessment & Plan: Assessment: -Hx PLAN: -Fall precautions -Bed alarm Syncope 07/23/2021 10/10/2022 Elevated troponin 07/23/2021 10/10/2022 Slurred speech 07/23/2021 07/24/2021 Leukocytosis 07/23/2021 07/24/2021 Altered mental status 07/23/20212021 Thoracic or lumbosacral neur itis or radiculitis, unspecified 11/23/2000 10/10/2022 documented as of this encounter (statuses as of 09/28/2023) [facility] History of Past illness Narrative* Problem Noted Date Diagnosed Date Resolved Date Acute respiratory failure with hypoxia 08/10/2021 10/10/2022 Last Assessment & Plan: Assessment: -See HPI -ABG 7.48/ PLAN: -Start Airvo therapy, wean as tolerated Multiple falls 08/04/2021 10/10/2022 COVID-19 08/03/2021 10/10/2022 Last Assessment & Plan: Assessment: -See HPI -+ as of 08/04 -ID following -IV decadron -Remdesivir PLAN: -NPO -Wean Airvo as tolerated -Continue remdesivir and decadron Frequent falls 08/03/2021 10/10/2022 Last Assessment & Plan: Assessment: -Hx PLAN: -Fall precautions -Bed alarm Syncope 07/23/2021 10/10/2022 Elevated troponin 07/23/2021 10/10/2022 Slurred speech 07/23/2021 07/24/2021 Leukocytosis 07/23/2021 07/24/2021 Altered mental status 07/23/20212021 Thoracic or lumbosacral neur itis or radiculitis, unspecified 11/23/2000 10/10/2022 documented as of this encounter (statuses as of 09/28/2023) [facility] History of Past illness Narrative* Problem Noted Date Resolved Date Slurred speech 07/23/2021 07/24/2021 Leukocytosis 07/23/2021 07/24/2021 Altered mental status 07/23/2021 07/24/2021 documented as of this encounter (statuses as of 09/07/2021) [address]12-2022 History of Past illness Narrative* Problem Noted Date Resolved Date Slurred speech 07/23/2021 07/24/2021 Leukocytosis 07/23/2021 07/24/2021 Altered mental status 07/23/2021 07/24/2021 documented as of this encounter (statuses as of 09/26/2021) [address]12-2022 History of Past illness Narrative* Problem Noted Date Resolved Date Slurred speech 07/23/2021 07/24/2021 Leukocytosis 07/23/2021 07/24/2021 Altered mental status 07/23/2021 07/24/2021 documented as of this encounter (statuses as of 10/12/2021) [address]12-2022 History of Past illness Narrative* Problem Noted Date Resolved Date Slurred speech 07/23/2021 07/24/2021 Leukocytosis 07/23/2021 07/24/2021 Altered mental status 07/23/2021 07/24/2021 documented as of this encounter (statuses as of 10/25/2021) [address]12-2022 History of Past illness Narrative* Problem Noted Date Resolved Date Slurred speech 07/23/2021 07/24/2021 Leukocytosis 07/23/2021 07/24/2021 Altered mental status 07/23/2021 07/24/2021 documented as of this encounter (statuses as of 10/26/2021) [address]12-2022 History of Past illness Narrative* Problem Noted Date Resolved Date Slurred speech 07/23/2021 07/24/2021 Leukocytosis 07/23/2021 07/24/2021 Altered mental status 07/23/2021 07/24/2021 documented as of this encounter (statuses as of 11/10/2021) [address]12-2022 History of Past illness Narrative* Problem Noted Date Resolved Date Slurred speech 07/23/2021 07/24/2021 Leukocytosis 07/23/2021 07/24/2021 Altered mental status 07/23/2021 07/24/2021 documented as of this encounter (statuses as of 11/11/2021) [address]12-2022 History of Past illness Narrative* Problem Noted Date Resolved Date Slurred speech 07/23/2021 07/24/2021 Leukocytosis 07/23/2021 07/24/2021 Altered mental status 07/23/2021 07/24/2021 documented as of this encounter (statuses as of 12/02/2021) [address]12-2022 History of Past illness Narrative* Problem Noted Date Resolved Date Slurred speech 07/23/2021 07/24/2021 Leukocytosis 07/23/2021 07/24/2021 Altered mental status 07/23/2021 07/24/2021 documented as of this encounter (statuses as of 12/03/2021) [address]12-2022 History of Past illness Narrative* Problem Noted Date Resolved Date Slurred speech 07/23/2021 07/24/2021 Leukocytosis 07/23/2021 07/24/2021 Altered mental status 07/23/2021 07/24/2021 documented as of this encounter (statuses as of 12/21/2021) [address]12-2022 History of Past illness Narrative* Problem Noted Date Resolved Date Slurred speech 07/23/2021 07/24/2021 Leukocytosis 07/23/2021 07/24/2021 Altered mental status 07/23/2021 07/24/2021 documented as of this encounter (statuses as of 01/22/2022) [address]12-2022 History of Past illness Narrative* Problem Noted Date Resolved Date Slurred speech 07/23/2021 07/24/2021 Leukocytosis 07/23/2021 07/24/2021 Altered mental status 07/23/2021 07/24/2021 documented as of this encounter (statuses as of 01/26/2022) [address]12-2022 History of Past illness Narrative* Problem Noted Date Resolved Date Slurred speech 07/23/2021 07/24/2021 Leukocytosis 07/23/2021 07/24/2021 Altered mental status 07/23/2021 07/24/2021 documented as of this encounter (statuses as of 01/30/2022) [place] [address] History of Past illness Narrative* Problem Noted Date Resolved Date Slurred speech 07/23/2021 07/24/2021 Leukocytosis 07/23/2021 07/24/2021 Altered mental status 07/23/2021 07/24/2021 documented as of this encounter (statuses as of 02/01/2022) [address]12-[address]22 History of Past illness Narrative* Problem Noted Date Resolved Date Slurred speech 07/23/2021 07/24/2021 Leukocytosis 07/23/2021 07/24/2021 Altered mental status 07/23/2021 07/24/2021 documented as of this encounter (statuses as of 02/15/2022) [address]12-[address]22 History of Past illness Narrative* Problem Noted Date Resolved Date Slurred speech 07/23/2021 07/24/2021 Leukocytosis 07/23/2021 07/24/2021 Altered mental status 07/23/2021 07/24/2021 documented as of this encounter (statuses as of 02/15/2022) [address]12-[address]22 History of Past illness Narrative* Problem Noted Date Resolved Date Slurred speech 07/23/2021 07/24/2021 Leukocytosis 07/23/2021 07/24/2021 Altered mental status 07/23/2021 07/24/2021 documented as of this encounter (statuses as of 03/01/2022) [address]12-[address]22 History of Past illness Narrative* Problem Noted Date Resolved Date Slurred speech 07/23/2021 07/24/2021 Leukocytosis 07/23/2021 07/24/2021 Altered mental status 07/23/2021 07/24/2021 documented as of this encounter (statuses as of 04/12/2022) [address]12-[address]22 History of Past illness Narrative* Problem Noted Date Resolved Date Slurred speech 07/23/2021 07/24/2021 Leukocytosis 07/23/2021 07/24/2021 Altered mental status 07/23/2021 07/24/2021 documented as of this encounter (statuses as of 04/22/2022) [address]12-[address]22 History of Past illness Narrative* Problem Noted Date Resolved Date Slurred speech 07/23/2021 07/24/2021 Leukocytosis 07/23/2021 07/24/2021 Altered mental status 07/23/2021 07/24/2021 documented as of this encounter (statuses as of 07/01/2022) [address]12-[address]22 History of Past illness Narrative* Problem Noted Date Resolved Date Slurred speech 07/23/2021 07/24/2021 Leukocytosis 07/23/2021 07/24/2021 Altered mental status 07/23/2021 07/24/2021 documented as of this encounter (statuses as of 07/05/2022) [address]12-[address]22 History of Past illness Narrative* Problem Noted Date Resolved Date Slurred speech 07/23/2021 07/24/2021 Leukocytosis 07/23/2021 07/24/2021 Altered mental status 07/23/2021 07/24/2021 documented as of this encounter (statuses as of 07/07/2022) [address]12-[address]22 History of Past illness Narrative* Problem Noted Date Resolved Date Slurred speech 07/23/2021 07/24/2021 Leukocytosis 07/23/2021 07/24/2021 Altered mental status 07/23/2021 07/24/2021 documented as of this encounter (statuses as of 08/01/2022) [address]12-[address]22 History of Past illness Narrative* Problem Noted Date Resolved Date Slurred speech 07/23/2021 07/24/2021 Leukocytosis 07/23/2021 07/24/2021 Altered mental status 07/23/2021 07/24/2021 documented as of this encounter (statuses as of 08/02/2022) [address]12-[address]22 History of Past illness Narrative* Problem Noted Date Resolved Date Slurred speech 07/23/2021 07/24/2021 Leukocytosis 07/23/2021 07/24/2021 Altered mental status 07/23/2021 07/24/2021 documented as of this encounter (statuses as of 09/19/2022) [address]12-[address]22 History of Past illness Narrative* Problem Noted Date Resolved Date Slurred speech 07/23/2021 07/24/2021 Leukocytosis 07/23/2021 07/24/2021 Altered mental status 07/23/2021 07/24/2021 documented as of this encounter (statuses as of 09/19/2022) [facility] History of Past illness Narrative* Problem Noted Date Resolved Date Slurred speech 07/23/2021 07/24/2021 Leukocytosis 07/23/2021 07/24/2021 Altered mental status 07/23/2021 07/24/2021 documented as of this encounter (statuses as of 09/23/2022) [facility]-12-2021 History of Present illness Narrative* Portia William (Rt)Marilee - 09/20/2020 4:15 PM EDT Radiology Service Progress Note PATIENT NAME: Tere Barone DATE OF SERVICE: September 20, 2020 TIME: 4:20 PM PATIENT IDENTITY VERIFICATION COMPLETED USING TWO (2) IDENTIFIERS: Name and Date of confirmedby patient verbally. FALL SCREENING: Has the patient had 2 falls in the last year or 1 fall with injury or currently using an Ambulatory Assistive Device (Walker, Cane, Wheelchair, Crutches, etc.)? No PATIENT GENDER DATA: Male PATIENT RELEVANT IMPLANT DATA REVIEWED: Not Applicable RADIOLOGY DEPARTMENT: General X-ray: Exam(s) Completed: Spine X-Ray(s): Lumbar AP / LAT / L5-S1 PERIPHERAL IV DATA: Not applicable SIGNED BY: Portia ROBLES September 20, 2020 4:20 PM [facility] [place] [facility]* Diagnosis Stenosis of right carotid artery- Primary Occlusion and stenosis of carotid artery without mention of cerebral infarction Nicotine use disorder, F17.2 Tobacco use disorder Mixed hyperlipidemia Essential hypertension Unspecified essential hypertension Type 2 diabetes mellitus with hyperglycemia, without long-term current use of insulin (HCC) Syncope, unspecified syncope type Multiple falls Personal history of fall S/P lumbar fusion Arthrodesis status documented [facility] [place] [facility]* Diagnosis Stenosis of right carotid artery Occlusion and stenosis of carotid artery without mention of cerebral infarction Hypertension, unspecified type Hyperlipidemia, unspecified hyperlipidemia type H/O fall Personal history of fall H/O syncope Other specified personal history presenting hazards to health [facility] Diagnosis Stenosis of right carotid artery Occlusion and stenosis of carotid artery without mention of cerebral infarction [facility] Diagnosis Thrombocytopenia (HCC)- Primary Thrombocytopenia, unspecified [facility] [place] [facility]* Diagnosis Thrombocytopenia (HCC)- Primary Thrombocytopenia, unspecified [facility] [place] [facility]* Diagnosis Thrombocytopenia (HCC) Thrombocytopenia, unspecified [facility] [place] [facility]* Diagnosis Controlled type 2 diabetes mellitus without complication, 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 insulin use (HCC) [facility] [place] [facility]* Diagnosis Thrombocytopenia (HCC)- Primary Thrombocytopenia, unspecified [facility] Diagnosis Stenosis of right carotid artery Occlusion and stenosis of carotid artery without mention of cerebral infarction [facility] [place] [facility] Diagnosis Stenosis of right carotid artery- Primary Occlusion and stenosis of carotid artery without mention of cerebral infarction Essential hypertension Unspecified essential hypertension Mixed hyperlipidemia Cardiomyopathy, ischemic Other specified forms of chronic ischemic heart disease Type 2 diabetes mellitus with hyperglycemia, without long-term current use of insulin (HCC) Spondylolisthesis of lumbar region Acquired spondylolisthesis S/P lumbar fusion Arthrodesis status [facility] [place] [facility]* Diagnosis Wellness examination- Primary Screening for endocrine, metabolic and immunity disorder Screening for abdominal aortic aneurysm Screening for other and unspecified cardiovascular conditions Advance directive discussed with patient Other specified counseling Screening for colon cancer Special screening for malignant neoplasms, colon Type 2 diabetes mellitus with hyperglycemia, without long-term current use of insulin (HCC) Tobacco use disorder Encounter for immunization Need for other specified prophylactic vaccination against single bacterial disease Alcohol abuse Alcohol abuse, unspecified MCI (mild cognitive impairment) Mild cognitive impairment, so stated [facility] [place] [facility] Diagnosis Occlusion and stenosis of unspecified carotid artery- Primary [facility] [place] [facility]* Diagnosis Type 2 diabetes mellitus with hyperglycemia, without long-term current use of insulin (HCC) [facility] [place] [facility]* Diagnosis Type 2 diabetes mellitus with hyperglycemia, without long-term current use of insulin (HCC)- Primary [facility] Diagnosis Hyperglycemia- Primary Other abnormal glucose Type 2 diabetes mellitus with hyperglycemia, without long-term current use of insulin (HCC) Memory loss Abrasion of right hand, initial encounter Sensorineural hearing loss (SNHL) of both ears [facility] Diagnosis Sensorineural hearing loss, bilateral- Primary [facility]* Diagnosis Type 2 diabetes mellitus with hyperglycemia (HCC) Type II or unspecified type diabetes mellitus without mention of complication, not stated as uncontrolled [facility] Diagnosis Essential hypertension- Primary Unspecified essential hypertension Cardiomyopathy, ischemic Other specified forms of chronic ischemic heart disease Mixed hyperlipidemia Tobacco use disorder Alcohol abuse Alcohol abuse, unspecified Obesity, Class I, BMI 30-34.9 Obesity, unspecified Stenosis of right carotid artery Occlusion and stenosis of carotid artery without mention of cerebral infarction [facility] Diagnosis Mild dementia without behavioral disturbance, psychotic disturbance, mood disturbance, or anxiety, unspecified dementia type (HCC)- Primary Memory loss [facility] Diagnosis Essential hypertension Unspecified essential hypertension [facility] Diagnosis Screening for abdominal aortic aneurysm Screening for other and unspecified cardiovascular conditions [facility] Diagnosis Occlusion and stenosis of unspecified carotid artery [facility] Diagnosis Essential hypertension Unspecified essential hypertension [facility]* Diagnosis Type 2 diabetes mellitus with hyperglycemia, 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 group home insulin use (HCC)- Primary Memory loss Skin lesion Unspecified disorder of skin and subcutaneous tissue [facility] Diagnosis Neoplasm of skin- Primary Neoplasm of unspecified nature of bone, soft tissue, and skin [facility] [place] [facility]* Diagnosis 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 [facility] Diagnosis Essential hypertension Unspecified essential hypertension [facility]* Diagnosis Mixed Alzheimer's and vascular dementia (HCC) Alzheimer's disease [facility] [place] [facility]* Diagnosis Mixed Alzheimer's and vascular dementia (HCC)- Primary Alzheimer's disease Cognitive communication deficit [facility] Diagnosis Callus of foot- Primary Corns and callosities Onychomycosis Dermatophytosis of nail Diabetic polyneuropathy associated with type 2 diabetes mellitus (HCC) [facility] [place] [facility] Diagnosis Acute pain of right shoulder- Primary Acute pain of right shoulder [facility] [place] [facility]* Diagnosis Acute pain of right shoulder [facility] [place] [facility]* Diagnosis 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 [facility] [place] [facility]* Diagnosis Visit for suture removal- Primary Encounter for removal of sutures [facility] [place] [facility]* Diagnosis Mixed hyperlipidemia- Primary Encounter for immunization Need for other specified prophylactic vaccination against single bacterial disease Type 2 diabetes mellitus without complication, without long-term current use of insulin (HCC) Essential hypertension Unspecified essential hypertension Tobacco use disorder SCC (squamous cell carcinoma), arm, left Mixed Alzheimer and vascular dementia (HCC) documented [facility] [place] [facility]* Diagnosis Type 2 diabetes mellitus without complication, without long-term current use of insulin (HCC)- Primary [facility] [place] [facility]* Diagnosis Neoplasm of skin- Primary Neoplasm of unspecified nature of bone, soft tissue, and skin Encounter for follow-up examination after completed treatment for malignant neoplasm Unspecified follow-up examination History of nonmelanoma skin cancer Personal history of other malignant neoplasm of skin Sun-damaged skin Other dermatitis due to solar radiation Multiple benign nevi Benign neoplasm of skin, site unspecified Bowman angioma Nevus, non-neoplastic Seborrheic keratoses Other seborrheic keratosis Lentigines Other dyschromia documented [facility] [place] [facility]* Diagnosis Frequent falls- Primary Personal history of fall Near syncope Syncope and collapse COVID-19 Essential hypertension Unspecified essential hypertension Mixed hyperlipidemia Nicotine use disorder Tobacco use disorder Obesity, Class I, BMI 30-34.9 Obesity, unspecified Type 2 diabetes mellitus with hyperglycemia, without long-term current use of insulin (HCC) Essential hypertension Unspecified essential hypertension Mixed hyperlipidemia Dementia with behavioral disturbance (HCC)- Primary Dementia, unspecified, with behavioral disturbance [facility] Diagnosis Frequent falls- Primary Personal history of fall Near syncope Syncope and collapse COVID-19 Essential hypertension Unspecified essential hypertension Mixed hyperlipidemia Nicotine use disorder Tobacco use disorder Obesity, Class I, BMI 30-34.9 Obesity, unspecified Type 2 diabetes mellitus with hyperglycemia, without long-term current use of insulin (HCC) Essential hypertension Unspecified essential hypertension Mixed hyperlipidemia Encounter for screening colonoscopy- Primary Special screening for malignant neoplasms, colon Screening for colon cancer Special screening for malignant neoplasms, colon documented in this encounter [facility] note* Diagnosis Frequent falls- Primary Personal history of fall Frequent falls Personal history of fall Near syncope Syncope and collapse COVID-19 Essential hypertension Unspecified essential hypertension Mixed hyperlipidemia Nicotine use disorder Tobacco use disorder Obesity, Class I, BMI 30-34.9 Obesity, unspecified Type 2 diabetes mellitus with hyperglycemia, without long-term current use of insulin (HCC) COVID-19 Type 2 diabetes mellitus with hyperglycemia (HCC) Type II or unspecified type diabetes mellitus without mention of complication, not stated as uncontrolled Essential hypertension Unspecified essential hypertension Mixed hyperlipidemia Acute respiratory failure with hypoxia (HCC) Acute respiratory failure Encounter for screening for cardiovascular disorders Screening for other and unspecified cardiovascular conditions documented in this encounter [facility] note* Diagnosis Long-term current use of opiate analgesic Encounter for long-term (current) use of other medications documented in this encounter [facility] note* Diagnosis Frequent falls- Primary Personal history of fall Near syncope Syncope and collapse COVID-19 Essential hypertension Unspecified essential hypertension Mixed hyperlipidemia Nicotine use disorder Tobacco use disorder Obesity, Class I, BMI 30-34.9 Obesity, unspecified Type 2 diabetes mellitus with hyperglycemia, without long-term current use of insulin (HCC) Essential hypertension Unspecified essential hypertension Mixed hyperlipidemia 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 documented in this encounter [facility] note* Diagnosis Frequent falls- Primary Personal history of fall Near syncope Syncope and collapse COVID-19 Essential hypertension Unspecified essential hypertension Mixed hyperlipidemia Nicotine use disorder Tobacco use disorder Obesity, Class I, BMI 30-34.9 Obesity, unspecified Type 2 diabetes mellitus with hyperglycemia, without long-term current use of insulin (HCC) Essential hypertension Unspecified essential hypertension Mixed hyperlipidemia Mixed Alzheimer's and vascular dementia (HCC) Alzheimer's disease documented in this encounter [facility] note* Diagnosis Frequent falls- Primary Personal history of fall Near syncope Syncope and collapse COVID-19 Essential hypertension Unspecified essential hypertension Mixed hyperlipidemia Nicotine use disorder Tobacco use disorder Obesity, Class I, BMI 30-34.9 Obesity, unspecified Type 2 diabetes mellitus with hyperglycemia, without long-term current use of insulin (HCC) Essential hypertension Unspecified essential hypertension Mixed hyperlipidemia Primary hypertension- Primary Unspecified essential hypertension Systolic dysfunction without heart failure Essential hypertension Unspecified essential hypertension Mixed hyperlipidemia Type 2 diabetes mellitus without complication, without long-term current use of insulin (HCC) Ascending aorta dilatation (HCC) Thoracic aortic ectasia Carotid stenosis, asymptomatic, bilateral documented in this encounter [facility] note* Diagnosis Frequent falls- Primary Personal history of fall Near syncope Syncope and collapse COVID-19 Essential hypertension Unspecified essential hypertension Mixed hyperlipidemia Nicotine use disorder Tobacco use disorder Obesity, Class I, BMI 30-34.9 Obesity, unspecified Type 2 diabetes mellitus with hyperglycemia, without long-term current use of insulin (HCC) Essential hypertension Unspecified essential hypertension Mixed hyperlipidemia Type 2 diabetes mellitus without complication, without long-term current use of insulin (HCC)- Primary Essential hypertension Unspecified essential hypertension Mixed hyperlipidemia Dementia with behavioral disturbance (HCC) Dementia, unspecified, with behavioral disturbance Screening for prostate cancer Special screening for malignant neoplasm of prostate Decreased activities of daily living (ADL) documented in this encounter [facility] note* Diagnosis Frequent falls- Primary Personal history of fall Near syncope Syncope and collapse COVID-19 Essential hypertension Unspecified essential hypertension Mixed hyperlipidemia Nicotine use disorder Tobacco use disorder Obesity, Class I, BMI 30-34.9 Obesity, unspecified Type 2 diabetes mellitus with hyperglycemia, without long-term current use of insulin (HCC) Essential hypertension Unspecified essential hypertension Mixed hyperlipidemia Needs assistance with community resources- Primary documented in this encounter [facility] note* Diagnosis Frequent falls- Primary Personal history of fall Near syncope Syncope and collapse COVID-19 Essential hypertension Unspecified essential hypertension Mixed hyperlipidemia Nicotine use disorder Tobacco use disorder Obesity, Class I, BMI 30-34.9 Obesity, unspecified Type 2 diabetes mellitus with hyperglycemia, without long-term current use of insulin (HCC) Essential hypertension Unspecified essential hypertension Mixed hyperlipidemia History of colonic polyps Personal history of colonic polyps documented in this encounter [facility] note* Diagnosis Frequent falls- Primary Personal history of fall Near syncope Syncope and collapse COVID-19 Essential hypertension Unspecified essential hypertension Mixed hyperlipidemia Nicotine use disorder Tobacco use disorder Obesity, Class I, BMI 30-34.9 Obesity, unspecified Type 2 diabetes mellitus with hyperglycemia, without long-term current use of insulin (HCC) Essential hypertension Unspecified essential hypertension Mixed hyperlipidemia Skin tear of left hand without complication, initial encounter- Primary [facility] [place] [facility]* Diagnosis Frequent falls- Primary Personal history of fall Near syncope Syncope and collapse COVID-19 Essential hypertension Unspecified essential hypertension Mixed hyperlipidemia Nicotine use disorder Tobacco use disorder Obesity, Class I, BMI 30-34.9 Obesity, unspecified Type 2 diabetes mellitus with hyperglycemia, without long-term current use of insulin (HCC) Essential hypertension Unspecified essential hypertension Mixed hyperlipidemia History of colonic polyps- Primary Personal history of colonic polyps documented in this encounter [facility] note* Diagnosis Frequent falls- Primary Personal history of fall Near syncope Syncope and collapse COVID-19 Essential hypertension Unspecified essential hypertension Mixed hyperlipidemia Nicotine use disorder Tobacco use disorder Obesity, Class I, BMI 30-34.9 Obesity, unspecified Type 2 diabetes mellitus with hyperglycemia, without long-term current use of insulin (HCC) Essential hypertension Unspecified essential hypertension Mixed hyperlipidemia History of colonic polyps Personal history of colonic polyps documented [facility] [place] note* Diagnosis Frequent falls- Primary Personal history of fall Near syncope Syncope and collapse COVID-19 Essential hypertension Unspecified essential hypertension Mixed hyperlipidemia Nicotine use disorder Tobacco use disorder Obesity, Class I, BMI 30-34.9 Obesity, unspecified Type 2 diabetes mellitus with hyperglycemia, without long-term current use of insulin (HCC) Essential hypertension Unspecified essential hypertension Mixed hyperlipidemia 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 Dementia with behavioral disturbance (HCC) Dementia, unspecified, with behavioral disturbance Memory loss documented in this encounter [facility] note* Diagnosis Frequent falls- Primary Personal history of fall Near syncope Syncope and collapse COVID-19 Essential hypertension Unspecified essential hypertension Mixed hyperlipidemia Nicotine use disorder Tobacco use disorder Obesity, Class I, BMI 30-34.9 Obesity, unspecified Type 2 diabetes mellitus with hyperglycemia, without long-term current use of insulin (HCC) Essential hypertension Unspecified essential hypertension Mixed hyperlipidemia Essential hypertension Unspecified essential hypertension documented in this encounter [facility] note* Diagnosis Frequent falls- Primary Personal history of fall Near syncope Syncope and collapse COVID-19 Essential hypertension Unspecified essential hypertension Mixed hyperlipidemia Nicotine use disorder Tobacco use disorder Obesity, Class I, BMI 30-34.9 Obesity, unspecified Type 2 diabetes mellitus with hyperglycemia, without long-term current use of insulin (HCC) Essential hypertension Unspecified essential hypertension Mixed hyperlipidemia Type 2 diabetes mellitus without complication, without long-term current use of insulin (HCC)- Primary Dementia with behavioral disturbance (HCC) Dementia, unspecified, with behavioral disturbance Ascending aorta dilatation (HCC) Thoracic aortic ectasia Essential hypertension Unspecified essential hypertension Mixed hyperlipidemia Screening for diabetic retinopathy Screening for other eye conditions documented [facility] this [facility] [place] note* Diagnosis Frequent falls- Primary Personal history of fall Near syncope Syncope and collapse COVID-19 Essential hypertension Unspecified essential hypertension Mixed hyperlipidemia Nicotine use disorder Tobacco use disorder Obesity, Class I, BMI 30-34.9 Obesity, unspecified Type 2 diabetes mellitus with hyperglycemia, without long-term current use of insulin (HCC) Essential hypertension Unspecified essential hypertension Mixed hyperlipidemia Type 2 diabetes mellitus without complication, without long-term current use of insulin (HCC) documented [facility] [place] note* Diagnosis Frequent falls- Primary Personal history of fall Near syncope Syncope and collapse COVID-19 Essential hypertension Unspecified essential hypertension Mixed hyperlipidemia Nicotine use disorder Tobacco use disorder Obesity, Class I, BMI 30-34.9 Obesity, unspecified Type 2 diabetes mellitus with hyperglycemia, without long-term current use of insulin (HCC) Essential hypertension Unspecified essential hypertension Mixed hyperlipidemia Type 2 diabetes mellitus without complication, without long-term current use of insulin (HCC) [facility] [place] [facility]* Diagnosis Frequent falls- Primary Personal history of fall Near syncope Syncope and collapse COVID-19 Essential hypertension Unspecified essential hypertension Mixed hyperlipidemia Nicotine use disorder Tobacco use disorder Obesity, Class I, BMI 30-34.9 Obesity, unspecified Type 2 diabetes mellitus with hyperglycemia, without long-term current use of insulin (HCC) Essential hypertension Unspecified essential hypertension Mixed hyperlipidemia 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 Dementia with behavioral disturbance (HCC) Dementia, unspecified, with behavioral disturbance Memory loss Type 2 diabetes mellitus without complication, without long-term current use of insulin (HCC) Tobacco abuse disorder Tobacco use disorder Vascular dementia without behavioral disturbance (HCC) Vascular dementia, uncomplicated Nicotine dependence, cigarettes, uncomplicated group home (current) use of aspirin [facility] [place] [facility]* Diagnosis Frequent falls- Primary Personal history of fall Near syncope Syncope and collapse COVID-19 Essential hypertension Unspecified essential hypertension Mixed hyperlipidemia Nicotine use disorder Tobacco use disorder Obesity, Class I, BMI 30-34.9 Obesity, unspecified Type 2 diabetes mellitus with hyperglycemia, without long-term current use of insulin (HCC) Essential hypertension Unspecified essential hypertension Mixed hyperlipidemia 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 Dementia with behavioral disturbance (HCC) Dementia, unspecified, with behavioral disturbance [facility] Frequent falls- Primary Personal history of fall Near syncope Syncope and collapse COVID-19 Essential hypertension Unspecified essential hypertension Mixed hyperlipidemia Nicotine use disorder Tobacco use disorder Obesity, Class I, BMI 30-34.9 Obesity, unspecified Type 2 diabetes mellitus with hyperglycemia, without long-term current use of insulin (HCC) Essential hypertension Unspecified essential hypertension Mixed hyperlipidemia History of colonic polyps- Primary Personal history of colonic polyps [facility] Diagnosis Frequent falls- Primary Personal history of fall Near syncope Syncope and collapse COVID-19 Essential hypertension Unspecified essential hypertension Mixed hyperlipidemia Nicotine use disorder Tobacco use disorder Obesity, Class I, BMI 30-34.9 Obesity, unspecified Type 2 diabetes mellitus with hyperglycemia, without long-term current use of insulin (HCC) Essential hypertension Unspecified essential hypertension Mixed hyperlipidemia Pain due to onychomycosis of toenails of both feet- Primary Diabetic polyneuropathy associated with type 2 diabetes mellitus (HCC) [facility] Diagnosis Frequent falls- Primary Personal history of fall Near syncope Syncope and collapse COVID-19 Essential hypertension Unspecified essential hypertension Mixed hyperlipidemia Nicotine use disorder Tobacco use disorder Obesity, Class I, BMI 30-34.9 Obesity, unspecified Type 2 diabetes mellitus with hyperglycemia, without long-term current use of insulin (HCC) Essential hypertension Unspecified essential hypertension Mixed hyperlipidemia Abnormal findings on examination of gastrointestinal tract- Primary Nonspecific (abnormal) findings on radiological and other examination of gastrointestinal tract History of colonic polyps Personal history of colonic polyps Diarrhea, unspecified type [facility] Diagnosis Frequent falls- Primary Personal history of fall Near syncope Syncope and collapse COVID-19 Essential hypertension Unspecified essential hypertension Mixed hyperlipidemia Nicotine use disorder Tobacco use disorder Obesity, Class I, BMI 30-34.9 Obesity, unspecified Type 2 diabetes mellitus with hyperglycemia, without long-term current use of insulin (HCC) Essential hypertension Unspecified essential hypertension Mixed hyperlipidemia Tobacco abuse disorder Tobacco use disorder [facility] Diagnosis Frequent falls- Primary Personal history of fall Near syncope Syncope and collapse COVID-19 Essential hypertension Unspecified essential hypertension Mixed hyperlipidemia Nicotine use disorder Tobacco use disorder Obesity, Class I, BMI 30-34.9 Obesity, unspecified Type 2 diabetes mellitus with hyperglycemia, without long-term current use of insulin (HCC) Essential hypertension Unspecified essential hypertension Mixed hyperlipidemia Mixed Alzheimer's and vascular dementia (HCC) Alzheimer's disease [facility] [place] [facility]* Diagnosis Frequent falls- Primary Personal history of fall Near syncope Syncope and collapse COVID-19 Essential hypertension Unspecified essential hypertension Mixed hyperlipidemia Nicotine use disorder Tobacco use disorder Obesity, Class I, BMI 30-34.9 Obesity, unspecified Type 2 diabetes mellitus with hyperglycemia, without long-term current use of insulin (HCC) Essential hypertension Unspecified essential hypertension Mixed hyperlipidemia Type 2 diabetes mellitus without complication, without long-term current use of insulin (HCC)- Primary [facility] [place] [facility]* Diagnosis Frequent falls- Primary Personal history of fall Near syncope Syncope and collapse COVID-19 Essential hypertension Unspecified essential hypertension Mixed hyperlipidemia Nicotine use disorder Tobacco use disorder Obesity, Class I, BMI 30-34.9 Obesity, unspecified Type 2 diabetes mellitus with hyperglycemia, without long-term current use of insulin (HCC) Essential hypertension Unspecified essential hypertension Mixed hyperlipidemia Type 2 diabetes mellitus without complication, without long-term current use of insulin (HCC)- Primary [facility] [place] [facility]* Diagnosis Frequent falls- Primary Personal history of fall Near syncope Syncope and collapse COVID-19 Essential hypertension Unspecified essential hypertension Mixed hyperlipidemia Nicotine use disorder Tobacco use disorder Obesity, Class I, BMI 30-34.9 Obesity, unspecified Type 2 diabetes mellitus with hyperglycemia, without long-term current use of insulin (HCC) Essential hypertension Unspecified essential hypertension Mixed hyperlipidemia Localized enlarged lymph nodes Enlargement of lymph nodes documented in this encounter [facility] note* Diagnosis Frequent falls- Primary Personal history of fall Near syncope Syncope and collapse COVID-19 Essential hypertension Unspecified essential hypertension Mixed hyperlipidemia Nicotine use disorder Tobacco use disorder Obesity, Class I, BMI 30-34.9 Obesity, unspecified Type 2 diabetes mellitus with hyperglycemia, without long-term current use of insulin (HCC) Essential hypertension Unspecified essential hypertension Mixed hyperlipidemia Stenosis of right carotid artery- Primary Occlusion and stenosis of carotid artery without mention of cerebral infarction Mixed Alzheimer and vascular dementia (HCC) Dementia with behavioral disturbance (HCC) Dementia, unspecified, with behavioral disturbance Vascular dementia without behavioral disturbance (HCC) Vascular dementia, uncomplicated 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Gastro-esophageal reflux disease without esophagitis Esophageal reflux Type 2 diabetes mellitus without complication, without long-term current use of insulin (HCC) Enlarged lymph nodes Enlargement of lymph nodes Nonadherence to medical treatment Essential hypertension Unspecified essential hypertension 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[facility] [place] [facility]* Diagnosis Frequent falls- Primary Personal history of fall Near syncope Syncope and collapse COVID-19 Essential hypertension Unspecified essential hypertension Mixed hyperlipidemia Nicotine use disorder Tobacco use disorder Obesity, Class I, BMI 30-34.9 Obesity, unspecified Type 2 diabetes mellitus with hyperglycemia, without long-term current use of insulin (HCC) Essential hypertension Unspecified essential hypertension Mixed hyperlipidemia Type 2 diabetes mellitus without complication, without long-term current use of insulin (HCC) [facility] [place] [facility]* Diagnosis Frequent falls- Primary Personal history of fall Near syncope Syncope and collapse COVID-19 Essential hypertension Unspecified essential hypertension Mixed hyperlipidemia Nicotine use disorder Tobacco use disorder Obesity, Class I, BMI 30-34.9 Obesity, unspecified Type 2 diabetes mellitus with hyperglycemia, without long-term current use of insulin (HCC) Essential hypertension Unspecified essential hypertension Mixed hyperlipidemia Anemia, unspecified type- Primary Enlarged lymph nodes Enlargement of lymph nodes documented [facility] [place] note* Diagnosis Frequent falls- Primary Personal history of fall Near syncope Syncope and collapse COVID-19 Essential hypertension Unspecified essential hypertension Mixed hyperlipidemia Nicotine use disorder Tobacco use disorder Obesity, Class I, BMI 30-34.9 Obesity, unspecified Type 2 diabetes mellitus with hyperglycemia, without long-term current use of insulin (HCC) Essential hypertension Unspecified essential hypertension Mixed hyperlipidemia Autoimmune hemolytic anemia (HCC)- Primary 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[facility] [place] [facility]* Diagnosis Frequent falls- Primary Personal history of fall Near syncope Syncope and collapse COVID-19 Essential hypertension Unspecified essential hypertension Mixed hyperlipidemia Nicotine use disorder Tobacco use disorder Obesity, Class I, BMI 30-34.9 Obesity, unspecified Type 2 diabetes mellitus with hyperglycemia, without long-term current use of insulin (HCC) Autoimmune hemolytic anemia (HCC)- Primary 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Localized enlarged lymph nodes Enlargement of lymph nodes Localized enlarged lymph nodes Enlargement of lymph nodes Localized enlarged lymph nodes Enlargement of lymph nodes [facility] [place] [facility]* Diagnosis Frequent falls- Primary Personal history of fall Near syncope Syncope and collapse COVID-19 Essential hypertension Unspecified essential hypertension Mixed hyperlipidemia Nicotine use disorder Tobacco use disorder Obesity, Class I, BMI 30-34.9 Obesity, unspecified Type 2 diabetes mellitus with hyperglycemia, without long-term current use of insulin (HCC) Autoimmune hemolytic anemia (HCC)- Primary 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Localized enlarged lymph nodes Enlargement of lymph nodes Splenomegaly AVM (arteriovenous malformation) of duodenum, acquired Angiodysplasia of stomach and duodenum (without mention of hemorrhage) TONA (acute kidney injury) Acute kidney failure, unspecified Localized enlarged lymph nodes Enlargement of lymph nodes [facility] [place] [facility]* Diagnosis Frequent falls- Primary Personal history of fall Near syncope Syncope and collapse COVID-19 Essential hypertension Unspecified essential hypertension Mixed hyperlipidemia Nicotine use disorder Tobacco use disorder Obesity, Class I, BMI 30-34.9 Obesity, unspecified Type 2 diabetes mellitus with hyperglycemia, without long-term current use of insulin (HCC) Mantle cell lymphoma, unspecified body region (HCC)- Primary Localized enlarged lymph nodes Enlargement of lymph nodes [facility] [place] [facility]* Diagnosis Frequent falls- Primary Personal history of fall Near syncope Syncope and collapse COVID-19 Essential hypertension Unspecified essential hypertension Mixed hyperlipidemia Nicotine use disorder Tobacco use disorder Obesity, Class I, BMI 30-34.9 Obesity, unspecified Type 2 diabetes mellitus with hyperglycemia, without long-term current use of insulin (HCC) Localized enlarged lymph nodes Enlargement of lymph nodes documented [facility] [place] [facility]* Diagnosis Frequent falls- Primary Personal history of fall Near syncope Syncope and collapse COVID-19 Essential hypertension Unspecified essential hypertension Mixed hyperlipidemia Nicotine use disorder Tobacco use disorder Obesity, Class I, BMI 30-34.9 Obesity, unspecified Type 2 diabetes mellitus with hyperglycemia, without long-term current use of insulin (HCC) Mantle cell lymphoma, unspecified body region (HCC) Lymphadenopathy, cervical Enlargement of lymph nodes [facility] [place] [facility]* Diagnosis Frequent falls- Primary Personal history of fall Near syncope Syncope and collapse COVID-19 Essential hypertension Unspecified essential hypertension Mixed hyperlipidemia Nicotine use disorder Tobacco use disorder Obesity, Class I, BMI 30-34.9 Obesity, unspecified Type 2 diabetes mellitus with hyperglycemia, without long-term current use of insulin (HCC) Type 2 diabetes mellitus without complication, with long-term current use of insulin (HCC) [facility] Diagnosis Frequent [facility]- Primary Personal history of fall Near syncope Syncope and collapse COVID-19 Essential hypertension Unspecified essential hypertension Mixed hyperlipidemia Nicotine use disorder Tobacco use disorder Obesity, Class I, BMI 30-34.9 Obesity, unspecified Type 2 diabetes mellitus with hyperglycemia, without long-term current use of insulin (HCC) Generalized weakness- Primary Other malaise and fatigue COVID-19 Dementia with behavioral disturbance (HCC) Dementia, unspecified, with behavioral disturbance Autoimmune hemolytic anemia, unspecified (HCC) Mantle cell lymphoma, unspecified body region (HCC) [facility] Diagnosis Frequent falls- Primary Personal history of fall Near syncope Syncope and collapse COVID-19 Essential hypertension Unspecified essential hypertension Mixed hyperlipidemia Nicotine use disorder Tobacco use disorder Obesity, Class I, BMI 30-34.9 Obesity, unspecified Type 2 diabetes mellitus with hyperglycemia, without long-term current use of insulin (HCC) Generalized weakness- Primary Other malaise and fatigue Mantle cell lymphoma, unspecified body region (HCC) COVID-19 Dementia with behavioral disturbance (HCC) Dementia, unspecified, with behavioral disturbance Autoimmune hemolytic anemia, unspecified (HCC) documented [facility] [place] [facility]* Diagnosis Frequent falls- Primary Personal history of fall Near syncope Syncope and collapse COVID-19 Essential hypertension Unspecified essential hypertension Mixed hyperlipidemia Nicotine use disorder Tobacco use disorder Obesity, Class I, BMI 30-34.9 Obesity, unspecified Type 2 diabetes mellitus with hyperglycemia, without long-term current use of insulin (HCC) Generalized weakness- Primary Other malaise and fatigue Mantle cell lymphoma, unspecified body region (HCC) COVID-19 Dementia with behavioral disturbance (HCC) Dementia, unspecified, with behavioral disturbance Autoimmune hemolytic anemia, unspecified (HCC) [facility] Frequent [facility]- Primary Personal history of fall Near syncope Syncope and collapse COVID-19 Essential hypertension Unspecified essential hypertension Mixed hyperlipidemia Nicotine use disorder Tobacco use disorder Obesity, Class I, BMI 30-34.9 Obesity, unspecified Type 2 diabetes mellitus with hyperglycemia, without long-term current use of insulin (HCC) Moderate episode of recurrent major depressive disorder (HCC)- Primary COVID-19 Zinc deficiency Mineral deficiency, not elsewhere classified Chronic insomnia Insomnia, unspecified Benign prostatic hyperplasia without lower urinary tract symptoms [facility] Diagnosis Frequent falls- Primary Personal history of fall Near syncope Syncope and collapse COVID-19 Essential hypertension Unspecified essential hypertension Mixed hyperlipidemia Nicotine use disorder Tobacco use disorder Obesity, Class I, BMI 30-34.9 Obesity, unspecified Type 2 diabetes mellitus with hyperglycemia, without long-term current use of insulin (HCC) Mantle cell lymphoma, unspecified body region (HCC)- Primary 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At risk for infection due to immunosuppression documented in this encounter [facility] note* Diagnosis Frequent falls- Primary Personal history of fall Near syncope Syncope and collapse COVID-19 Essential hypertension Unspecified essential hypertension Mixed hyperlipidemia Nicotine use disorder Tobacco use disorder Obesity, Class I, BMI 30-34.9 Obesity, unspecified Type 2 diabetes mellitus with hyperglycemia, without long-term current use of insulin (HCC) Ascending aorta dilatation- Primary Thoracic aortic ectasia HFrEF (heart failure with reduced ejection fraction) (HCC) Heart failure, unspecified Mixed hyperlipidemia Essential hypertension Unspecified essential hypertension Mantle cell lymphoma, unspecified body region (HCC) Generalized weakness Other malaise and fatigue documented in this encounter [facility] note* Diagnosis Frequent falls- Primary Personal history of fall Near syncope Syncope and collapse COVID-19 Essential hypertension Unspecified essential hypertension Mixed hyperlipidemia Nicotine use disorder Tobacco use disorder Obesity, Class I, BMI 30-34.9 Obesity, unspecified Type 2 diabetes mellitus with hyperglycemia, without long-term current use of insulin (HCC) Mantle cell lymphoma, unspecified body region (HCC)- Primary 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documented in this encounter [facility] note* Diagnosis Frequent falls- Primary Personal history of fall Near syncope Syncope and collapse COVID-19 Essential hypertension Unspecified essential hypertension Mixed hyperlipidemia Nicotine use disorder Tobacco use disorder Obesity, Class I, BMI 30-34.9 Obesity, unspecified Type 2 diabetes mellitus with hyperglycemia, without long-term current use of insulin (HCC) Petechiae- Primary Spontaneous ecchymoses documented in this encounter [facility] for referral (narrative)* Diagnostic Procedure Only (Routine) - Authorized Specialty Diagnoses / Procedures Referred By Contac t Referred To Contact US IMAGING Diagnoses Stenosis of right carotid artery Procedures US CAROTID BILAT Ramos [place] MD [address] [place] [address] Us Imaging Referral ID Status Reason Start Date Expiration Date Visits Requested Visits Authorized [id number] Authorized Auto-Generat ed Referral 10/25/2021 11/24/2022 1 1 [facility] for referral (narrative)* Diagnostic Procedure Only (Routine) - Closed Specialty Diagnoses / Procedures Referred By Contac t Referred To Contact US IMAGING Diagnoses Stenosis of right carotid artery Procedures US CAROTID BILAT Cornelio Persaud MD [address] [place] [address] Us Imaging Referral ID Status Reason Start Date Expiration Date V isits Requested Visits Authorized [id number] Closed Auto-Generate d Referral 10/12/2021 11/11/2022 1 1 [facility] for referral (narrative)* Diagnostic Procedure Only (Routine) - Authorized Specialty Diagnoses / Procedures Referred By Contac t Referred To Contact US IMAGING Diagnoses Thrombocytopenia (HCC) Procedures US ABD RT UPPER QUADRANT US ABDOMINAL REAL TIME W/IMAGE LIMITED Michael Arias, DO [address] [place] [address] Us Imaging Referral ID Status Reason Start Date Expiration Date Visits Requested Visits Authorized [id number] Authorized Auto-Generat ed Referral 11/11/2021 12/11/2022 1 1 [facility] for referral (narrative)* Diagnostic Procedure Only (Routine) - Closed Specialty Diagnoses / Procedures Referred By Contac t Referred To Contact US IMAGING Diagnoses Thrombocytopenia (HCC) Procedures US ABD RT UPPER QUADRANT US ABDOMINAL REAL TIME W/IMAGE LIMITED Michael Arias, DO [address] [place] [address] Us Imaging Referral ID Status Reason Start Date Expiration Date V isits Requested Visits Authorized [id number] Closed Auto-Generate d Referral 11/11/2021 12/11/2022 1 1 [facility] for referral (narrative)* Diagnostic Procedure Only (Routine) - Closed Specialty Diagnoses / Procedures Referred By Contac t Referred To Contact US IMAGING Diagnoses Stenosis of right carotid artery Procedures US CAROTID Ramos Stovall MD [address] [place] [address] Us Imaging Referral ID Status Reason Start Date Expiration Date V isits Requested Visits Authorized [id number] Closed Auto-Generate d Referral 10/25/2021 11/24/2022 1 1 [facility] for referral (narrative)* Diagnostic Procedure Only (Routine) - Pending Review Specialty Diagnoses / Procedures Referred By Moisés t Referred To Contact US IMAGING Diagnoses Stenosis of right carotid artery Procedures US CAROTID Cornelio Villarreal MD [address] [place] [address] Us Imaging Referral ID Status Reason Start Date Expiration Date Visits Requested Visits Authorized [id number] Pending Review Auto-Generat ed Referral 05/16/2022 03/01/2023 1 1 [facility] for referral (narrative)* Outpatient Procedure (Routine) - Pending Review Specialty Diagnoses / Procedures Referred By Contac t Referred To Contact [facility] Diagnoses Cardiomyopathy, ischemic Procedures ECHO ECHO TTHRC R-T 2D W/WOM-MODE COMPL SPEC&COLR D Josue, [place] [address] [place] [address] [facility] [address] [place] [address] Referral ID Status Reason Start Date Expiration Date Visits Requested Visits Authorized [id number] Pending Review Auto-Generat ed Referral 12/15/2022 12/15/2023 1 1 * Outpatient Procedure (Routine) - Closed Specialty Diagnoses / Procedures Referred By Contac t Referred To Contact [facility] Diagnoses Cardiomyopathy, ischemic Procedures ECG COMPLETE ECG ROUTINE ECG W/LEAST 12 LDS W/I&R Josue, [place] [address] [place] [address] [facility] [address] [place] [address] Referral ID Status Reason Start Date Expiration Date V isits Requested Visits Authorized [id number] Closed Auto-Generate d Referral 12/15/2022 12/15/2023 1 1 [facility] for referral (narrative)* Diagnostic Procedure Only (Routine) - Closed Specialty Diagnoses / Procedures Referred By Contac t Referred To Contact US IMAGING Diagnoses Screening for abdominal aortic aneurysm Procedures US SCREENING FOR AAA (2017) US ABDOMINAL AORTA REAL TIME SCREEN STUDY AAA Samm Kc DO [address] [place] [address] Us Imaging [id number] Referral ID Status Reason Start Date Expiration Date V isits Requested Visits Authorized [id number] Closed Auto-Generate d Referral 04/12/2022 05/12/2023 1 1 [facility] for referral (narrative)* Diagnostic Procedure Only (Urgent) - Closed Specialty Diagnoses / Procedures Referred By Contac t Referred To Contact XR IMAGING Diagnoses Acute pain of right shoulder Procedures XR SHOULDER GENERAL 3V OR MORE AP/TRUE AP/OTHER RIGHT RADEX SHOULDER COMPLETE MINIMUM 2 VIEWS Camille Benitez, [employer] BR[employer]ER.[employer]KER [address] [place] [address] [place] [address] Referral ID Status Reason Start Date Expiration Date V isits Requested Visits Authorized [id number] Closed Auto-Generate d Referral 12/17/2023 01/15/2025 1 1 [facility] for referral (narrative)* Diagnostic Procedure Only (Urgent) - Closed Specialty Diagnoses / Procedures Referred By Contac t Referred To Contact XR IMAGING Diagnoses Acute pain of right shoulder Procedures XR SHOULDER GENERAL 3V OR MORE AP/TRUE AP/OTHER RIGHT RADEX SHOULDER COMPLETE MINIMUM 2 VIEWS Camille Benitez APRN.CNP [address] [place] [address] [place] [address] Referral ID Status Reason Start Date Expiration Date V isits Requested Visits Authorized [id number] Closed Auto-Generate d Referral 12/17/2023 01/15/2025 1 1 [facility] for referral (narrative)* Outpatient Procedure (Routine) - Closed Specialty Diagnoses / Procedures Referred By Contac t Referred To Contact [facility] Diagnoses Screening for colon cancer Procedures COLONOSCOPY SCREENING COLONOSCOPY FLX DX W/COLLJ SPEC WHEN PFRMD Samm Kc DO [address] [place] [address] [facility] [address] [place] [address] Referral ID Status Reason Start Date Expiration Date V isits Requested Visits Authorized [id number] Closed Auto-Generate d Referral 08/09/2023 09/07/2023 1 1 [facility] for referral (narrative)* Diagnostic Procedure Only (Routine) - Closed Specialty Diagnoses / Procedures Referred By Contac t Referred To Contact [facility] Diagnoses Encounter for screening for cardiovascular disorders Procedures NM CARDIAC PERF STRESS/PHARM MYOCARDIAL SPECT MULTIPLE STUDIES Deanne Carrasco DO [address] [place] [address] [facility] [address] [place] [address] Referral ID Status Reason Start Date Expiration Date Visits Re quested Visits Authorized [id number] Closed 09/22/2021 10/22/2021 1 1 [facility] for referral (narrative)* Outpatient Procedure (Routine) - Pending Review Specialty Diagnoses / Procedures Referred By Contac t Referred To Contact [facility] Diagnoses Primary hypertension 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 (HCC) Procedures ECHO ECHO TTHRC R-T 2D W/WOM-MODE COMPL SPEC&COLR D Sunshine Duckworth APRN.BRICK OR [employer]KER [address] [place] [address] [address] Referral ID Status Reason Start Date Expiration Date Visits Requested Visits Authorized [id number] Pending Review Auto-Generat ed Referral 03/19/2024 03/19/2025 1 1 * Outpatient Procedure (Routine) - New Request Specialty Diagnoses / Procedures Referred By Contac t Referred To Contact [facility] Diagnoses Primary hypertension Procedures ECG COMPLETE ECG ROUTINE ECG W/LEAST 12 LDS W/I&R Sunshine Duckworth APRN.CNP [address] [place] [address] [address] Referral ID Status Reason Start Date Expiration Date Visits Requested Visits Authorized [id number] New Request Auto-Generat ed Referral 03/19/2024 03/19/2025 1 1 [facility] for referral (narrative)* Outpatient Procedure (Routine) - Closed Specialty Diagnoses / Procedures Referred By Contac t Referred To Contact [facility] Diagnoses History of colonic polyps Procedures COLONOSCOPY DIAGNOSTIC COLONOSCOPY FLX DX W/COLLJ SPEC WHEN Lise Avery MD, PhD [address] [address] [place] [address] [place] [address] Referral ID Status Reason Start Date Expiration Date V isits Requested Visits Authorized [id number] Closed Auto-Generate d Referral 03/27/2024 06/10/2024 1 1 [facility] for referral (narrative)* Outpatient Procedure (Routine) - Authorized Specialty Diagnoses / Procedures Referred By Contac t Referred To Contact [facility] Diagnoses History of colonic polyps Procedures COLONOSCOPY SCREENING COLONOSCOPY FLX DX W/COLLJ SPEC WHEN Lise Avery MD, PhD [address] [address] Referral ID Status Reason Start Date Expiration Date Visits Requested Visits Authorized [id number] Authorized Auto-Generat ed Referral 06/10/2024 1 1 [facility] for referral (narrative)* Outpatient Procedure (Routine) - Closed Specialty Diagnoses / Procedures Referred By Contac t Referred To Contact [facility] Diagnoses History of colonic polyps Procedures COLONOSCOPY SCREENING COLONOSCOPY FLX DX W/COLLJ SPEC WHEN Lise Avery MD, PhD [address] [address] Referral ID Status Reason Start Date Expiration Date V isits Requested Visits Authorized [id number] Closed Auto-Generate d Referral 03/27/2024 06/10/2024 1 1 [facility] for visit Narrative* Diagnostic Procedure Only (Routine) - Closed Specialty Diagnoses / Procedures Referred By Contac t Referred To Contact US IMAGING Diagnoses Stenosis of right carotid artery Procedures US CAROTID BILAT Cornelio Persaud MD [address] [place] [address] Us Imaging Referral ID Status Reason Start Date Expiration Date V isits Requested Visits Authorized [id number] Closed Auto-Generate d Referral 10/12/2021 11/11/2022 1 1 [facility] for visit Narrative* Diagnostic Procedure Only (Routine) - Closed Specialty Diagnoses / Procedures Referred By Contac t Referred To Contact US IMAGING Diagnoses Thrombocytopenia (HCC) Procedures US ABD RT UPPER QUADRANT US ABDOMINAL REAL TIME W/IMAGE LIMITED Michael Arias DO [address] [place] [address] Us Imaging Referral ID Status Reason Start Date Expiration Date V isits Requested Visits Authorized [id number] Closed Auto-Generate d Referral 11/11/2021 12/11/2022 1 1 [facility] for visit Narrative* Diagnostic Procedure Only (Routine) - Closed Specialty Diagnoses / Procedures Referred By Contac t Referred To Contact US IMAGING Diagnoses Stenosis of right carotid artery Procedures US CAROTID BILAT Ramos [place] MD [address] [place] [address] Us Imaging Referral ID Status Reason Start Date Expiration Date V isits Requested Visits Authorized [id number] Closed Auto-Generate d Referral 10/25/2021 11/24/2022 1 1 [facility] for visit Narrative* Diagnostic Procedure Only (Urgent) - Closed Specialty Diagnoses / Procedures Referred By Contac t Referred To Contact XR IMAGING Diagnoses Acute pain of right shoulder Procedures XR SHOULDER GENERAL 3V OR MORE AP/TRUE AP/OTHER RIGHT RADEX SHOULDER COMPLETE MINIMUM 2 VIEWS Camille Benitez, TU.BRICK OR BLOCK MAKER [address] [place] [address] [place] [address] Referral ID Status Reason Start Date Expiration Date V isits Requested Visits Authorized [id number] Closed Auto-Generate d Referral 12/17/2023 01/15/2025 1 1 [facility] for visit Narrative* Outpatient Procedure (Routine) - Closed Specialty Diagnoses / Procedures Referred By Contac t Referred To Contact [facility] Diagnoses Screening for colon cancer Procedures COLONOSCOPY SCREENING COLONOSCOPY FLX DX W/COLLJ SPEC WHEN PFRMD Samm Kc DO [address] [place] [address] [facility] [address] [place] [address] Referral ID Status Reason Start Date Expiration Date V isits Requested Visits Authorized [id number] Closed Auto-Generate d Referral 08/09/2023 09/07/2023 1 1 [facility] for visit Narrative* Diagnostic Procedure Only (Routine) - Closed Specialty Diagnoses / Procedures Referred By Moisés t Referred To Contact [facility] Diagnoses Encounter for screening for cardiovascular disorders Procedures NM CARDIAC PERF STRESS/PHARM MYOCARDIAL SPECT MULTIPLE STUDIES Deanne Carrasco, [address] [place] [address] [facility] [address] [place] [address] Referral ID Status Reason Start Date Expiration Date Visits Re quested Visits Authorized [id number] Closed 09/22/2021 10/22/2021 1 1 [facility] for visit Narrative* Outpatient Procedure (Routine) - Closed Specialty Diagnoses / Procedures Referred By Moisés t Referred To Contact [facility] Diagnoses History of colonic polyps Procedures COLONOSCOPY DIAGNOSTIC COLONOSCOPY FLX DX W/COLLJ SPEC WHEN Lise Avery MD, PhD [address] [place] [id number] Yusra Beltran [id number] [place] [address] Referral ID Status Reason Start Date Expiration Date V isits Requested Visits Authorized [id number] Closed Auto-Generate d Referral 03/27/2024 06/10/2024 1 1 [facility] for visit Narrative* Outpatient Procedure (Routine) - Closed Specialty Diagnoses / Procedures Referred By Moisés cartagena Referred To Contact [facility] Diagnoses History of colonic polyps Procedures COLONOSCOPY SCREENING COLONOSCOPY FLX DX W/COLLJ SPEC WHEN Lise Avery MD, PhD [address] [address] [facility] [address] [place] [address], [place] [address] Referral ID Status Reason Start Date Expiration Date V isits Requested Visits Authorized [id number] Closed Auto-Generate d Referral 03/27/2024 06/10/2024 1 1 [facility] for visit Narrative* MRI/CT (Urgent) - Closed Specialty Diagnoses / Procedures Referred By Moisés t Referred To Contact CT IMAGING Diagnoses Localized enlarged lymph nodes Procedures CT NECK SOFT TISSUE WO IVCON CT SOFT TISSUE NECK W/[place] [address] [place] [address] Phone: tel: fax: [place] [address] Referral ID Status Reason Start Date Expiration Date V isits Requested Visits Authorized [id number] Closed Auto-Generate d Referral 12/24/2024 01/22/2026 1 1 [facility] for visit Narrative* Auth/Cert (Routine) Specialty Diagnoses / Procedures Referred By Moisés cartagena Referred To Contact Diagnoses Localized enlarged lymph nodes Localized enlarged lymph nodes [R59.0] Procedures BX/EXC LYMPH NODE NEEDLE SUPERFICIAL BIOPSY OR EXCISION LYMPH NODES(S) NEEDLE [facility] [address] [place] [address] Referral ID Status Reason Start Date Expiration Date Visits Re quested Visits Authorized [id number] 1 1 [facility] for visit Narrative* Diagnostic Procedure Only (Urgent) - Closed Specialty Diagnoses / Procedures Referred By Moisés cartagena Referred To Contact [facility] Diagnoses Mantle cell lymphoma, unspecified body region (HCC) Lymphadenopathy, cervical Procedures NM PET/CT SKULL-THIGH INITIAL PET IMAGING CT ATTENUATION SKULL BASE MID-THIGH Amy Angeles, TU.BRICK OR BLOCK MAKER [address] [place] [address] Phone: tel: fax: Molecular Imaging [address] [place] [address] Phone: tel: Referral ID Status Reason Start Date Expiration Date Visits Re quested Visits Authorized [id number] Closed 01/22/2025 03/23/2025 2 2 [facility] Advance Directives No Advanced Directives Records Found Date Activated Date Inactivated Comments 01/24/2025 7:14 PM 01/28/2025 3:44 PM Question Answer Comments Full Code Order Discussed With: Patient Date Activated Date Inactivated Comments 01/11/2025 8:56 AM 01/13/2025 12:31 AM Question Answer Comments Full Code Order Discussed With: Patient Date Activated Date Inactivated Comments 01/07/2025 11:27 AM 01/10/2025 9:30 AM Question Answer Comments Full Code Order Discussed With: Patient Date Activated Date Inactivated Comments 01/24/2025 7:14 PM Date Activated Date Inactivated Comments 01/11/2025 8:56 AM 01/13/2025 12:31 AM Date Activated Date Inactivated Comments 01/07/2025 11:27 AM 01/10/2025 9:30 AM Date Activated Date Inactivated Comments 01/11/2025 8:56 AM Documents on File Type Date Recorded 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 Advance Directive(s) 08/03/2021 6:18 PM Advance Directive(s) 07/22/2021 8:40 PM Documents on File Type Date Recorded 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 Advance Directive(s) 08/03/2021 6:18 PM Advance Directive(s) 07/22/2021 8:40 PM Documents on File Type Date Recorded 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 Advance Directive(s) 11/09/2021 11:48 PM Advance Directive(s) 08/03/2021 6:18 PM Advance Directive(s) 07/22/2021 8:40 PM Documents on File Type Date Recorded 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 Advance Directive(s) 11/09/2021 11:48 PM Advance Directive(s) 08/03/2021 6:18 PM Advance Directive(s) 07/22/2021 8:40 PM Date Activated Date Inactivated Comments 01/07/2025 11:27 AM Date Activated Date Inactivated Comments 01/07/2025 11:27 AM Question Answer Comments Full Code Order Discussed With: Patient Date Activated Date Inactivated Comments 01/11/2025 8:56 AM 01/13/2025 12:31 AM Date Activated Date Inactivated Comments 01/07/2025 11:27 AM 01/10/2025 9:30 AM Question Answer Comments Full Code Order Discussed With: Patient Date Activated Date Inactivated Comments 01/24/2025 7:14 PM 01/28/2025 3:44 PM Date Activated Date Inactivated Comments 01/11/2025 8:56 AM 01/13/2025 12:31 AM Date Activated Date Inactivated Comments 01/07/2025 11:27 AM 01/10/2025 9:30 AM Question Answer Comments Full Code Order Discussed With: Patient Reason for Referral Specialty Diagnoses / Procedures Referred By Contac t Referred To Contact Neurosurgery Diagnoses Stenosis of right carotid artery Procedures CONSULT TO NEUROSURGERY OFFICE/OUTPATIENT [facility] 60-74 MINUTES Cornelio Persaud MD [address] [place] [address] Referral ID Status Reason Start Date Expiration Date Visits Requested Visits Authorized [id number] Pending Review PCP Requested Referral 10/12/2021 10/12/2022 1 1 Specialty Diagnoses / Procedures Referred By Contac t Referred To Contact US IMAGING Diagnoses Stenosis of right carotid artery Procedures US CAROTID BILAT Cornelio Persaud MD [address] [place] [id number] Us Imaging Referral ID Status Reason Start Date Expiration Date Visits Requested Visits Authorized [id number] Pending Review Auto-Generat ed Referral 10/12/2021 11/11/2022 1 1 Specialty Diagnoses / Procedures Referred By Contac t Referred To Contact Neurology Diagnoses MCI (mild cognitive impairment) Procedures CONSULT TO NEUROLOGY OFFICE/OUTPATIENT [facility] 60-74 MINUTES Samm Kc DO [address] [place] [address] Referral ID Status Reason Start Date Expiration Date Visits Requested Visits Authorized [id number] Pending Review PCP Requested Referral 04/12/2022 04/12/2023 1 1 Specialty Diagnoses / Procedures Referred By Contac t Referred To Contact US IMAGING Diagnoses Screening for abdominal aortic aneurysm Procedures US SCREENING FOR AAA (2017) US ABDOMINAL AORTA REAL TIME SCREEN STUDY AAA Samm Kc DO [address] [place] [address] Us Imaging Referral ID Status Reason Start Date Expiration Date Visits Requested Visits Authorized [id number] Authorized Auto-Generat ed Referral 04/12/2022 05/12/2023 1 1 Specialty Diagnoses / Procedures Referred By Contac t Referred To Contact MR IMAGING Diagnoses Occlusion and stenosis of unspecified carotid artery Procedures MRA CAROTID WO/W IVCON MRA,NECK; W/[place] [address] [place] [address] Mr Imaging Referral ID Status Reason Start Date Expiration Date Visits Requested Visits Authorized [id number] Pending Review Auto-Generat ed Referral 05/22/2023 1 1 Specialty Diagnoses / Procedures Referred By Contac t Referred To Contact Diagnoses Type 2 diabetes mellitus with hyperglycemia, without long-term current use of insulin (HCC) Procedures CONSULT TO DIABETES EDUCATION MEDICAL NUTRITION ASSMT&IVNTJ INDIV EACH 15 MS MEDICAL NUTRITION ASSMT&IVNTJ INDIV EACH 15 MS MEDICAL NUTRITION ASSMT&IVNTJ INDIV EACH 15 MS MEDICAL NUTRITION ASSMT&IVNTJ INDIV EACH 15 MS Sedrick Roberts MD [address] [place] [address] Referral ID Status Reason Start Date Expiration Date Visits Requested Visits Authorized [id number] Pending Review PCP Requested Referral 08/02/2022 08/02/2023 1 1 Specialty Diagnoses / Procedures Referred By Contac t Referred To Contact Diagnoses Sensorineural hearing loss (SNHL) of both ears Procedures HEARING TEST/AUDIOGRAM COMPRE AUDIOMETRY THRESHOLD EVAL SP RECOGNIJ Samm Kc DO [address] [place] [address] [facility] [address] [place] [address] Referral ID Status Reason Start Date Expiration Date Visits Requested Visits Authorized [id number] Authorized Auto-Generat ed Referral 09/22/2022 12/21/2022 1 1 Specialty Diagnoses / Procedures Referred By Contac t Referred To Contact Neurology Diagnoses Memory loss Procedures CONSULT TO NEUROLOGY OFFICE/OUTPATIENT [facility] MDM 60-74 MINUTES Samm Kc DO [address] [place] [address] Referral ID Status Reason Start Date Expiration Date Visits Requested Visits Authorized [id number] Pending Review PCP Requested Referral 09/22/2022 09/22/2023 1 1 Specialty Diagnoses / Procedures Referred By Contac t Referred To Contact MR IMAGING Diagnoses Occlusion and stenosis of unspecified carotid artery Procedures MRA CAROTID WO/W IVCON MRA,NECK; W/[place] [address] [place] [address] [place] [address] Referral ID Status Reason Start Date Expiration Date V isits Requested Visits Authorized [id number] Closed Auto-Generate d Referral 04/22/2022 05/22/2023 1 1 Specialty Diagnoses / Procedures Referred By Contac t Referred To Contact Endocrinology Diagnoses Type 2 diabetes mellitus with hyperglycemia, 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 group home insulin use (HCC) Memory loss Skin lesion Procedures CONSULT TO ENDOCRINOLOGY OFFICE/OUTPATIENT [facility] 60 MINUTES Samm Kc DO [address] [place] [address] Referral ID Status Reason Start Date Expiration Date Visits Requested Visits Authorized [id number] Authorized PCP Requested Referral 09/28/2023 09/27/2024 1 1 Specialty Diagnoses / Procedures Referred By Contac t Referred To Contact Dermatology Diagnoses Type 2 diabetes mellitus with hyperglycemia, 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 group home insulin use (HCC) Memory loss Skin lesion Procedures CONSULT TO DERMATOLOGY Samm Kc DO [address] [place] [address] Referral ID Status Reason Start Date Expiration Date Visits Requested Visits Authorized [id number] Ref Not Required PCP Requested Referral 09/28/2023 09/27/2024 1 1 Specialty Diagnoses / Procedures Referred By Contac t Referred To Contact Dermatology Diagnoses 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 Procedures MOHS OFFICE/OUTPATIENT [facility] 60 MINUTES Анна Perez [id number] [id number] [place] [address] Referral ID Status Reason Start Date Expiration Date Visits Requested Visits Authorized [id number] Authorized PCP Requested Referral 11/02/2023 11/01/2024 1 1 Specialty Diagnoses / Procedures Referred By Contac t Referred To Contact [facility] Diagnoses Cognitive communication deficit Procedures CONSULT TO SPEECH THERAPY OFFICE/OUTPATIENT NEW HIGH MDM 60 MINUTES Taiwo Lee MD [facility] [place] [address] [facility] [address] [place] [id number] Referral ID Status Reason Start Date Expiration Date Visits Requested Visits Authorized [id number] Pending Review Auto-Generat ed Referral 11/08/2023 11/07/2024 1 1 Specialty Diagnoses / Procedures Referred By Contac t Referred To Contact Diagnoses Type 2 diabetes mellitus without complication, without long-term current use of insulin (HCC) Procedures ENDOCRINOLOGY DIETITIAN VISIT (MNT) MEDICAL NUTRITION ASSMT&IVNTJ INDIV EACH 15 MS MEDICAL NUTRITION ASSMT&IVNTJ INDIV EACH 15 MS MEDICAL NUTRITION ASSMT&IVNTJ INDIV EACH 15 MS MEDICAL NUTRITION ASSMT&IVNTJ INDIV EACH 15 MS Sedrick Roberts MD [address] [place] [address] Referral ID Status Reason Start Date Expiration Date Visits Requested Visits Authorized [id number] Authorized PCP Requested Referral 01/09/2024 01/08/2025 1 1 Specialty Diagnoses / Procedures Referred By Contac t Referred To Contact Diagnoses Dementia with behavioral disturbance (HCC) Procedures NEUROPSYCHOLOGICAL TESTING CONSULT NEUROBEHAVIORAL STATUS XM PHYS/QHP 1ST HOUR NEUROPSYCHOLOGICAL TST EVAL PHYS/QHP 1ST HOUR NEUROPSYCHOLOGICAL TST EVAL PHYS/QHP EA ADDL HR PSYCL/NRPSYCL TST TECH 2+ TST 1ST 30 MIN PSYCL/NRPSYCL TST TECH 2+ TST EA ADDL 30 MIN Sammi Velarde, [employer] [facility] [place] [address] Referral ID Status Reason Start Date Expiration Date Visits Requested Visits Authorized [id number] New Request PCP Requested Referral 02/08/2024 05/08/2024 1 3 Specialty Diagnoses / Procedures Referred By Contac t Referred To Contact Neurology Diagnoses Dementia with behavioral disturbance (HCC) Procedures CONSULT TO NEUROLOGY OFFICE/OUTPATIENT [facility] MDM 60 MINUTES Samm Kc DO [address] [place] [address] Referral ID Status Reason Start Date Expiration Date Visits Requested Visits Authorized [id number] Authorized PCP Requested Referral 4 04/23/2025 1 1 Specialty Diagnoses / Procedures Referred By Contac t Referred To Contact Gerontology Diagnoses Mixed Alzheimer and vascular dementia (HCC) Dementia with behavioral disturbance (HCC) Memory loss Procedures CONSULT TO GERIATRICS OFFICE/OUTPATIENT [facility]ES [facility] [address] [place] [address] Referral ID Status Reason Start Date Expiration Date Visits Requested Visits Authorized [id number] Authorized PCP Requested Referral 4 05/30/2025 1 1 Specialty Diagnoses / Procedures Referred By Contac t Referred To Contact Ophthalmology Diagnoses Screening for diabetic retinopathy Procedures CONSULT TO OPHTHALMOLOGY OFFICE/OUTPATIENT [facility] 60 MINUTES YaminiSamm shepherd, DO [address] [place] [address] Referral ID Status Reason Start Date Expiration Date Visits Requested Visits Authorized [id number] Authorized PCP Requested Referral 07/08/2024 07/08/2025 1 1 Summary Purpose Family History No Family History Records FoundNo Family History Records FoundNo Family History Records FoundNo Family History Records FoundNo Family History Records FoundNo Family History Records FoundNo Family History Records Found Additional Source Comments Source Comments (unrecognize d section and content) In the event this informatio n is protected by the Federal Confidentiality of Alcohol and Drug Abuse Patient Records regulations: The Federal rules restrict any use of the information to criminally investigate or prosecute any alcohol or drug abuse patient.[facility] the event this information is protected by the Federal Confidentiality of Alcohol and Drug Abuse Patient Records regulations: The Federal rules restrict any use of the information to criminally investigate or prosecute any alcohol or drug abuse patient.[facility] HospitalIn the event this information is protected by the Federal Confidentiality of Alcohol and Drug Abuse Patient Records regulations: The Federal rules restrict any use of the information to criminally investigate or prosecute any alcohol or drug abuse patient.[facility] HospitalIn the event this information is protected by the Federal Confidentiality of Alcohol and Drug Abuse Patient Records regulations: The Federal rules restrict any use of the information to criminally investigate or prosecute any alcohol or drug abuse patient.[facility] HospitalIn the event this information is protected by the Federal Confidentiality of Alcohol and Drug Abuse Patient Records regulations: The Federal rules restrict any use of the information to criminally investigate or prosecute any alcohol or drug abuse patient.[facility] HospitalIn the event this information is protected by the Federal Confidentiality of Alcohol and Drug Abuse Patient Records regulations: The Federal rules restrict any use of the information to criminally investigate or prosecute any alcohol or drug abuse patient.[facility] HospitalIn the event this information is protected by the Federal Confidentiality of Alcohol and Drug Abuse Patient Records regulations: The Federal rules restrict any use of the information to criminally investigate or prosecute any alcohol or drug abuse patient.[facility] HospitalIn the event this information is protected by the Federal Confidentiality of Alcohol and Drug Abuse Patient Records regulations: The Federal rules restrict any use of the information to criminally investigate or prosecute any alcohol or drug abuse patient.[facility] HospitalIn the event this information is protected by the Federal Confidentiality of Alcohol and Drug Abuse Patient Records regulations: The Federal rules restrict any use of the information to criminally investigate or prosecute any alcohol or drug abuse patient.[facility] HospitalIn the event this information is protected by the Federal Confidentiality of Alcohol and Drug Abuse Patient Records regulations: The Federal rules restrict any use of the information to criminally investigate or prosecute any alcohol or drug abuse patient.[facility] HospitalIn the event this information is protected by the Federal Confidentiality of Alcohol and Drug Abuse Patient Records regulations: The Federal rules restrict any use of the information to criminally investigate or prosecute any alcohol or drug abuse patient.[facility] HospitalIn the event this information is protected by the Federal Confidentiality of Alcohol and Drug Abuse Patient Records regulations: The Federal rules restrict any use of the information to criminally investigate or prosecute any alcohol or drug abuse patient.[facility] HospitalIn the event this information is protected by the Federal Confidentiality of Alcohol and Drug Abuse Patient Records regulations: The Federal rules restrict any use of the information to criminally investigate or prosecute any alcohol or drug abuse patient.[facility] HospitalIn the event this information is protected by the Federal Confidentiality of Alcohol and Drug Abuse Patient Records regulations: The Federal rules restrict any use of the information to criminally investigate or prosecute any alcohol or drug abuse patient.[facility] HospitalIn the event this information is protected by the Federal Confidentiality of Alcohol and Drug Abuse Patient Records regulations: The Federal rules restrict any use of the information to criminally investigate or prosecute any alcohol or drug abuse patient.[facility] HospitalIn the event this information is protected by the Federal Confidentiality of Alcohol and Drug Abuse Patient Records regulations: The Federal rules restrict any use of the information to criminally investigate or prosecute any alcohol or drug abuse patient.[facility] HospitalIn the event this information is protected by the Federal Confidentiality of Alcohol and Drug Abuse Patient Records regulations: The Federal rules restrict any use of the information to criminally investigate or prosecute any alcohol or drug abuse patient.[facility] HospitalIn the event this information is protected by the Federal Confidentiality of Alcohol and Drug Abuse Patient Records regulations: The Federal rules restrict any use of the information to criminally investigate or prosecute any alcohol or drug abuse patient.[facility] HospitalIn the event this information is protected by the Federal Confidentiality of Alcohol and Drug Abuse Patient Records regulations: The Federal rules restrict any use of the information to criminally investigate or prosecute any alcohol or drug abuse patient.[facility] HospitalIn the event this information is protected by the Federal Confidentiality of Alcohol and Drug Abuse Patient Records regulations: The Federal rules restrict any use of the information to criminally investigate or prosecute any alcohol or drug abuse patient.[facility] HospitalIn the event this information is protected by the Federal Confidentiality of Alcohol and Drug Abuse Patient Records regulations: The Federal rules restrict any use of the information to criminally investigate or prosecute any alcohol or drug abuse patient.[facility] HospitalIn the event this information is protected by the Federal Confidentiality of Alcohol and Drug Abuse Patient Records regulations: The Federal rules restrict any use of the information to criminally investigate or prosecute any alcohol or drug abuse patient.[facility] HospitalIn the event this information is protected by the Federal Confidentiality of Alcohol and Drug Abuse Patient Records regulations: The Federal rules restrict any use of the information to criminally investigate or prosecute any alcohol or drug abuse patient.[facility] HospitalIn the event this information is protected by the Federal Confidentiality of Alcohol and Drug Abuse Patient Records regulations: The Federal rules restrict any use of the information to criminally investigate or prosecute any alcohol or drug abuse patient.[facility] HospitalIn the event this information is protected by the Federal Confidentiality of Alcohol and Drug Abuse Patient Records regulations: The Federal rules restrict any use of the information to criminally investigate or prosecute any alcohol or drug abuse patient.[facility] HospitalIn the event this information is protected by the Federal Confidentiality of Alcohol and Drug Abuse Patient Records regulations: The Federal rules restrict any use of the information to criminally investigate or prosecute any alcohol or drug abuse patient.[facility] HospitalIn the event this information is protected by the Federal Confidentiality of Alcohol and Drug Abuse Patient Records regulations: The Federal rules restrict any use of the information to criminally investigate or prosecute any alcohol or drug abuse patient.[facility] HospitalIn the event this information is protected by the Federal Confidentiality of Alcohol and Drug Abuse Patient Records regulations: The Federal rules restrict any use of the information to criminally investigate or prosecute any alcohol or drug abuse patient.[facility] HospitalIn the event this information is protected by the Federal Confidentiality of Alcohol and Drug Abuse Patient Records regulations: The Federal rules restrict any use of the information to criminally investigate or prosecute any alcohol or drug abuse patient.[facility] HospitalIn the event this information is protected by the Federal Confidentiality of Alcohol and Drug Abuse Patient Records regulations: The Federal rules restrict any use of the information to criminally investigate or prosecute any alcohol or drug abuse patient.[facility] HospitalIn the event this information is protected by the Federal Confidentiality of Alcohol and Drug Abuse Patient Records regulations: The Federal rules restrict any use of the information to criminally investigate or prosecute any alcohol or drug abuse patient.[facility] HospitalIn the event this information is protected by the Federal Confidentiality of Alcohol and Drug Abuse Patient Records regulations: The Federal rules restrict any use of the information to criminally investigate or prosecute any alcohol or drug abuse patient.[facility] HospitalIn the event this information is protected by the Federal Confidentiality of Alcohol and Drug Abuse Patient Records regulations: The Federal rules restrict any use of the information to criminally investigate or prosecute any alcohol or drug abuse patient.[facility] HospitalIn the event this information is protected by the Federal Confidentiality of Alcohol and Drug Abuse Patient Records regulations: The Federal rules restrict any use of the information to criminally investigate or prosecute any alcohol or drug abuse patient.[facility] HospitalIn the event this information is protected by the Federal Confidentiality of Alcohol and Drug Abuse Patient Records regulations: The Federal rules restrict any use of the information to criminally investigate or prosecute any alcohol or drug abuse patient.[facility] HospitalIn the event this information is protected by the Federal Confidentiality of Alcohol and Drug Abuse Patient Records regulations: The Federal rules restrict any use of the information to criminally investigate or prosecute any alcohol or drug abuse patient.[facility] HospitalIn the event this information is protected by the Federal Confidentiality of Alcohol and Drug Abuse Patient Records regulations: The Federal rules restrict any use of the information to criminally investigate or prosecute any alcohol or drug abuse patient.[facility] HospitalIn the event this information is protected by the Federal Confidentiality of Alcohol and Drug Abuse Patient Records regulations: The Federal rules restrict any use of the information to criminally investigate or prosecute any alcohol or drug abuse patient.[facility] HospitalIn the event this information is protected by the Federal Confidentiality of Alcohol and Drug Abuse Patient Records regulations: The Federal rules restrict any use of the information to criminally investigate or prosecute any alcohol or drug abuse patient.[facility] HospitalIn the event this information is protected by the Federal Confidentiality of Alcohol and Drug Abuse Patient Records regulations: The Federal rules restrict any use of the information to criminally investigate or prosecute any alcohol or drug abuse patient.[facility] HospitalIn the event this information is protected by the Federal Confidentiality of Alcohol and Drug Abuse Patient Records regulations: The Federal rules restrict any use of the information to criminally investigate or prosecute any alcohol or drug abuse patient.[facility] HospitalIn the event this information is protected by the Federal Confidentiality of Alcohol and Drug Abuse Patient Records regulations: The Federal rules restrict any use of the information to criminally investigate or prosecute any alcohol or drug abuse patient.[facility] HospitalIn the event this information is protected by the Federal Confidentiality of Alcohol and Drug Abuse Patient Records regulations: The Federal rules restrict any use of the information to criminally investigate or prosecute any alcohol or drug abuse patient.[facility] HospitalIn the event this information is protected by the Federal Confidentiality of Alcohol and Drug Abuse Patient Records regulations: The Federal rules restrict any use of the information to criminally investigate or prosecute any alcohol or drug abuse patient.[facility] HospitalIn the event this information is protected by the Federal Confidentiality of Alcohol and Drug Abuse Patient Records regulations: The Federal rules restrict any use of the information to criminally investigate or prosecute any alcohol or drug abuse patient.[facility] HospitalIn the event this information is protected by the Federal Confidentiality of Alcohol and Drug Abuse Patient Records regulations: The Federal rules restrict any use of the information to criminally investigate or prosecute any alcohol or drug abuse patient.[facility] HospitalIn the event this information is protected by the Federal Confidentiality of Alcohol and Drug Abuse Patient Records regulations: The Federal rules restrict any use of the information to criminally investigate or prosecute any alcohol or drug abuse patient.[facility] HospitalIn the event this information is protected by the Federal Confidentiality of Alcohol and Drug Abuse Patient Records regulations: The Federal rules restrict any use of the information to criminally investigate or prosecute any alcohol or drug abuse patient.[facility] HospitalIn the event this information is protected by the Federal Confidentiality of Alcohol and Drug Abuse Patient Records regulations: The Federal rules restrict any use of the information to criminally investigate or prosecute any alcohol or drug abuse patient.[facility] HospitalIn the event this information is protected by the Federal Confidentiality of Alcohol and Drug Abuse Patient Records regulations: The Federal rules restrict any use of the information to criminally investigate or prosecute any alcohol or drug abuse patient.[facility] HospitalIn the event this information is protected by the Federal Confidentiality of Alcohol and Drug Abuse Patient Records regulations: The Federal rules restrict any use of the information to criminally investigate or prosecute any alcohol or drug abuse patient.[facility] HospitalIn the event this information is protected by the Federal Confidentiality of Alcohol and Drug Abuse Patient Records regulations: The Federal rules restrict any use of the information to criminally investigate or prosecute any alcohol or drug abuse patient.[facility] HospitalIn the event this information is protected by the Federal Confidentiality of Alcohol and Drug Abuse Patient Records regulations: The Federal rules restrict any use of the information to criminally investigate or prosecute any alcohol or drug abuse patient.[facility] HospitalIn the event this information is protected by the Federal Confidentiality of Alcohol and Drug Abuse Patient Records regulations: The Federal rules restrict any use of the information to criminally investigate or prosecute any alcohol or drug abuse patient.[facility] HospitalIn the event this information is protected by the Federal Confidentiality of Alcohol and Drug Abuse Patient Records regulations: The Federal rules restrict any use of the information to criminally investigate or prosecute any alcohol or drug abuse patient.[facility] HospitalIn the event this information is protected by the Federal Confidentiality of Alcohol and Drug Abuse Patient Records regulations: The Federal rules restrict any use of the information to criminally investigate or prosecute any alcohol or drug abuse patient.[facility] HospitalIn the event this information is protected by the Federal Confidentiality of Alcohol and Drug Abuse Patient Records regulations: The Federal rules restrict any use of the information to criminally investigate or prosecute any alcohol or drug abuse patient.[facility] HospitalIn the event this information is protected by the Federal Confidentiality of Alcohol and Drug Abuse Patient Records regulations: The Federal rules restrict any use of the information to criminally investigate or prosecute any alcohol or drug abuse patient.[facility] HospitalIn the event this information is protected by the Federal Confidentiality of Alcohol and Drug Abuse Patient Records regulations: The Federal rules restrict any use of the information to criminally investigate or prosecute any alcohol or drug abuse patient.[facility] HospitalIn the event this information is protected by the Federal Confidentiality of Alcohol and Drug Abuse Patient Records regulations: The Federal rules restrict any use of the information to criminally investigate or prosecute any alcohol or drug abuse patient.[facility] HospitalIn the event this information is protected by the Federal Confidentiality of Alcohol and Drug Abuse Patient Records regulations: The Federal rules restrict any use of the information to criminally investigate or prosecute any alcohol or drug abuse patient.[facility] HospitalIn the event this information is protected by the Federal Confidentiality of Alcohol and Drug Abuse Patient Records regulations: The Federal rules restrict any use of the information to criminally investigate or prosecute any alcohol or drug abuse patient.[facility] HospitalIn the event this information is protected by the Federal Confidentiality of Alcohol and Drug Abuse Patient Records regulations: The Federal rules restrict any use of the information to criminally investigate or prosecute any alcohol or drug abuse patient.[facility] HospitalIn the event this information is protected by the Federal Confidentiality of Alcohol and Drug Abuse Patient Records regulations: The Federal rules restrict any use of the information to criminally investigate or prosecute any alcohol or drug abuse patient.[facility] HospitalIn the event this information is protected by the Federal Confidentiality of Alcohol and Drug Abuse Patient Records regulations: The Federal rules restrict any use of the information to criminally investigate or prosecute any alcohol or drug abuse patient.[facility] HospitalIn the event this information is protected by the Federal Confidentiality of Alcohol and Drug Abuse Patient Records regulations: The Federal rules restrict any use of the information to criminally investigate or prosecute any alcohol or drug abuse patient.[facility] HospitalIn the event this information is protected by the Federal Confidentiality of Alcohol and Drug Abuse Patient Records regulations: The Federal rules restrict any use of the information to criminally investigate or prosecute any alcohol or drug abuse patient.[facility] HospitalIn the event this information is protected by the Federal Confidentiality of Alcohol and Drug Abuse Patient Records regulations: The Federal rules restrict any use of the information to criminally investigate or prosecute any alcohol or drug abuse patient.[facility] HospitalIn the event this information is protected by the Federal Confidentiality of Alcohol and Drug Abuse Patient Records regulations: The Federal rules restrict any use of the information to criminally investigate or prosecute any alcohol or drug abuse patient.[facility] HospitalIn the event this information is protected by the Federal Confidentiality of Alcohol and Drug Abuse Patient Records regulations: The Federal rules restrict any use of the information to criminally investigate or prosecute any alcohol or drug abuse patient.[facility] HospitalIn the event this information is protected by the Federal Confidentiality of Alcohol and Drug Abuse Patient Records regulations: The Federal rules restrict any use of the information to criminally investigate or prosecute any alcohol or drug abuse patient.[facility] HospitalIn the event this information is protected by the Federal Confidentiality of Alcohol and Drug Abuse Patient Records regulations: The Federal rules restrict any use of the information to criminally investigate or prosecute any alcohol or drug abuse patient.[facility] HospitalIn the event this information is protected by the Federal Confidentiality of Alcohol and Drug Abuse Patient Records regulations: The Federal rules restrict any use of the information to criminally investigate or prosecute any alcohol or drug abuse patient.[facility] HospitalIn the event this information is protected by the Federal Confidentiality of Alcohol and Drug Abuse Patient Records regulations: The Federal rules restrict any use of the information to criminally investigate or prosecute any alcohol or drug abuse patient.[facility] HospitalIn the event this information is protected by the Federal Confidentiality of Alcohol and Drug Abuse Patient Records regulations: The Federal rules restrict any use of the information to criminally investigate or prosecute any alcohol or drug abuse patient.[facility] HospitalIn the event this information is protected by the Federal Confidentiality of Alcohol and Drug Abuse Patient Records regulations: The Federal rules restrict any use of the information to criminally investigate or prosecute any alcohol or drug abuse patient.[facility] HospitalIn the event this information is protected by the Federal Confidentiality of Alcohol and Drug Abuse Patient Records regulations: The Federal rules restrict any use of the information to criminally investigate or prosecute any alcohol or drug abuse patient.[facility] HospitalIn the event this information is protected by the Federal Confidentiality of Alcohol and Drug Abuse Patient Records regulations: The Federal rules restrict any use of the information to criminally investigate or prosecute any alcohol or drug abuse patient.[facility] HospitalIn the event this information is protected by the Federal Confidentiality of Alcohol and Drug Abuse Patient Records regulations: The Federal rules restrict any use of the information to criminally investigate or prosecute any alcohol or drug abuse patient.[facility] HospitalIn the event this information is protected by the Federal Confidentiality of Alcohol and Drug Abuse Patient Records regulations: The Federal rules restrict any use of the information to criminally investigate or prosecute any alcohol or drug abuse patient.[facility] HospitalIn the event this information is protected by the Federal Confidentiality of Alcohol and Drug Abuse Patient Records regulations: The Federal rules restrict any use of the information to criminally investigate or prosecute any alcohol or drug abuse patient.[facility] HospitalIn the event this information is protected by the Federal Confidentiality of Alcohol and Drug Abuse Patient Records regulations: The Federal rules restrict any use of the information to criminally investigate or prosecute any alcohol or drug abuse patient.[facility] HospitalIn the event this information is protected by the Federal Confidentiality of Alcohol and Drug Abuse Patient Records regulations: The Federal rules restrict any use of the information to criminally investigate or prosecute any alcohol or drug abuse patient.[facility] HospitalIn the event this information is protected by the Federal Confidentiality of Alcohol and Drug Abuse Patient Records regulations: The Federal rules restrict any use of the information to criminally investigate or prosecute any alcohol or drug abuse patient.[facility] HospitalIn the event this information is protected by the Federal Confidentiality of Alcohol and Drug Abuse Patient Records regulations: The Federal rules restrict any use of the information to criminally investigate or prosecute any alcohol or drug abuse patient.[facility] HospitalIn the event this information is protected by the Federal Confidentiality of Alcohol and Drug Abuse Patient Records regulations: The Federal rules restrict any use of the information to criminally investigate or prosecute any alcohol or drug abuse patient.[facility] HospitalIn the event this information is protected by the Federal Confidentiality of Alcohol and Drug Abuse Patient Records regulations: The Federal rules restrict any use of the information to criminally investigate or prosecute any alcohol or drug abuse patient.[facility] HospitalIn the event this information is protected by the Federal Confidentiality of Alcohol and Drug Abuse Patient Records regulations: The Federal rules restrict any use of the information to criminally investigate or prosecute any alcohol or drug abuse patient.[facility] HospitalIn the event this information is protected by the Federal Confidentiality of Alcohol and Drug Abuse Patient Records regulations: The Federal rules restrict any use of the information to criminally investigate or prosecute any alcohol or drug abuse patient.[facility] HospitalIn the event this information is protected by the Federal Confidentiality of Alcohol and Drug Abuse Patient Records regulations: The Federal rules restrict any use of the information to criminally investigate or prosecute any alcohol or drug abuse patient.[facility] HospitalIn the event this information is protected by the Federal Confidentiality of Alcohol and Drug Abuse Patient Records regulations: The Federal rules restrict any use of the information to criminally investigate or prosecute any alcohol or drug abuse patient.[facility] HospitalIn the event this information is protected by the Federal Confidentiality of Alcohol and Drug Abuse Patient Records regulations: The Federal rules restrict any use of the information to criminally investigate or prosecute any alcohol or drug abuse patient.[facility] HospitalIn the event this information is protected by the Federal Confidentiality of Alcohol and Drug Abuse Patient Records regulations: The Federal rules restrict any use of the information to criminally investigate or prosecute any alcohol or drug abuse patient.[facility] HospitalIn the event this information is protected by the Federal Confidentiality of Alcohol and Drug Abuse Patient Records regulations: The Federal rules restrict any use of the information to criminally investigate or prosecute any alcohol or drug abuse patient.[facility] HospitalIn the event this information is protected by the Federal Confidentiality of Alcohol and Drug Abuse Patient Records regulations: The Federal rules restrict any use of the information to criminally investigate or prosecute any alcohol or drug abuse patient.[facility] HospitalIn the event this information is protected by the Federal Confidentiality of Alcohol and Drug Abuse Patient Records regulations: The Federal rules restrict any use of the information to criminally investigate or prosecute any alcohol or drug abuse patient.[facility] HospitalIn the event this information is protected by the Federal Confidentiality of Alcohol and Drug Abuse Patient Records regulations: The Federal rules restrict any use of the information to criminally investigate or prosecute any alcohol or drug abuse patient.[facility] HospitalIn the event this information is protected by the Federal Confidentiality of Alcohol and Drug Abuse Patient Records regulations: The Federal rules restrict any use of the information to criminally investigate or prosecute any alcohol or drug abuse patient.[facility] HospitalIn the event this information is protected by the Federal Confidentiality of Alcohol and Drug Abuse Patient Records regulations: The Federal rules restrict any use of the information to criminally investigate or prosecute any alcohol or drug abuse patient.[facility] HospitalIn the event this information is protected by the Federal Confidentiality of Alcohol and Drug Abuse Patient Records regulations: The Federal rules restrict any use of the information to criminally investigate or prosecute any alcohol or drug abuse patient.[facility] HospitalIn the event this information is protected by the Federal Confidentiality of Alcohol and Drug Abuse Patient Records regulations: The Federal rules restrict any use of the information to criminally investigate or prosecute any alcohol or drug abuse patient.[facility] HospitalIn the event this information is protected by the Federal Confidentiality of Alcohol and Drug Abuse Patient Records regulations: The Federal rules restrict any use of the information to criminally investigate or prosecute any alcohol or drug abuse patient.[facility] HospitalIn the event this information is protected by the Federal Confidentiality of Alcohol and Drug Abuse Patient Records regulations: The Federal rules restrict any use of the information to criminally investigate or prosecute any alcohol or drug abuse patient.[facility] HospitalIn the event this information is protected by the Federal Confidentiality of Alcohol and Drug Abuse Patient Records regulations: The Federal rules restrict any use of the information to criminally investigate or prosecute any alcohol or drug abuse patient.[facility] HospitalIn the event this information is protected by the Federal Confidentiality of Alcohol and Drug Abuse Patient Records regulations: The Federal rules restrict any use of the information to criminally investigate or prosecute any alcohol or drug abuse patient.[facility] HospitalIn the event this information is protected by the Federal Confidentiality of Alcohol and Drug Abuse Patient Records regulations: The Federal rules restrict any use of the information to criminally investigate or prosecute any alcohol or drug abuse patient.[facility] HospitalIn the event this information is protected by the Federal Confidentiality of Alcohol and Drug Abuse Patient Records regulations: The Federal rules restrict any use of the information to criminally investigate or prosecute any alcohol or drug abuse patient.[facility] HospitalIn the event this information is protected by the Federal Confidentiality of Alcohol and Drug Abuse Patient Records regulations: The Federal rules restrict any use of the information to criminally investigate or prosecute any alcohol or drug abuse patient.[facility] HospitalIn the event this information is protected by the Federal Confidentiality of Alcohol and Drug Abuse Patient Records regulations: The Federal rules restrict any use of the information to criminally investigate or prosecute any alcohol or drug abuse patient.[facility] HospitalIn the event this information is protected by the Federal Confidentiality of Alcohol and Drug Abuse Patient Records regulations: The Federal rules restrict any use of the information to criminally investigate or prosecute any alcohol or drug abuse patient.[facility] HospitalIn the event this information is protected by the Federal Confidentiality of Alcohol and Drug Abuse Patient Records regulations: The Federal rules restrict any use of the information to criminally investigate or prosecute any alcohol or drug abuse patient.[facility] HospitalIn the event this information is protected by the Federal Confidentiality of Alcohol and Drug Abuse Patient Records regulations: The Federal rules restrict any use of the information to criminally investigate or prosecute any alcohol or drug abuse patient.[facility] HospitalIn the event this information is protected by the Federal Confidentiality of Alcohol and Drug Abuse Patient Records regulations: The Federal rules restrict any use of the information to criminally investigate or prosecute any alcohol or drug abuse patient.[facility] HospitalIn the event this information is protected by the Federal Confidentiality of Alcohol and Drug Abuse Patient Records regulations: The Federal rules restrict any use of the information to criminally investigate or prosecute any alcohol or drug abuse patient.[facility] HospitalIn the event this information is protected by the Federal Confidentiality of Alcohol and Drug Abuse Patient Records regulations: The Federal rules restrict any use of the information to criminally investigate or prosecute any alcohol or drug abuse patient.[facility] HospitalIn the event this information is protected by the Federal Confidentiality of Alcohol and Drug Abuse Patient Records regulations: The Federal rules restrict any use of the information to criminally investigate or prosecute any alcohol or drug abuse patient.[facility] HospitalIn the event this information is protected by the Federal Confidentiality of Alcohol and Drug Abuse Patient Records regulations: The Federal rules restrict any use of the information to criminally investigate or prosecute any alcohol or drug abuse patient.[facility] HospitalIn the event this information is protected by the Federal Confidentiality of Alcohol and Drug Abuse Patient Records regulations: The Federal rules restrict any use of the information to criminally investigate or prosecute any alcohol or drug abuse patient.[facility] HospitalIn the event this information is protected by the Federal Confidentiality of Alcohol and Drug Abuse Patient Records regulations: The Federal rules restrict any use of the information to criminally investigate or prosecute any alcohol or drug abuse patient.[facility] HospitalIn the event this information is protected by the Federal Confidentiality of Alcohol and Drug Abuse Patient Records regulations: The Federal rules restrict any use of the information to criminally investigate or prosecute any alcohol or drug abuse patient.[facility] HospitalIn the event this information is protected by the Federal Confidentiality of Alcohol and Drug Abuse Patient Records regulations: The Federal rules restrict any use of the information to criminally investigate or prosecute any alcohol or drug abuse patient.[facility] HospitalIn the event this information is protected by the Federal Confidentiality of Alcohol and Drug Abuse Patient Records regulations: The Federal rules restrict any use of the information to criminally investigate or prosecute any alcohol or drug abuse patient.[facility] HospitalIn the event this information is protected by the Federal Confidentiality of Alcohol and Drug Abuse Patient Records regulations: The Federal rules restrict any use of the information to criminally investigate or prosecute any alcohol or drug abuse patient.[facility] HospitalIn the event this information is protected by the Federal Confidentiality of Alcohol and Drug Abuse Patient Records regulations: The Federal rules restrict any use of the information to criminally investigate or prosecute any alcohol or drug abuse patient.[facility] HospitalIn the event this information is protected by the Federal Confidentiality of Alcohol and Drug Abuse Patient Records regulations: The Federal rules restrict any use of the information to criminally investigate or prosecute any alcohol or drug abuse patient.[facility] HospitalIn the event this information is protected by the Federal Confidentiality of Alcohol and Drug Abuse Patient Records regulations: The Federal rules restrict any use of the information to criminally investigate or prosecute any alcohol or drug abuse patient.[facility] HospitalIn the event this information is protected by the Federal Confidentiality of Alcohol and Drug Abuse Patient Records regulations: The Federal rules restrict any use of the information to criminally investigate or prosecute any alcohol or drug abuse patient.[facility] HospitalIn the event this information is protected by the Federal Confidentiality of Alcohol and Drug Abuse Patient Records regulations: The Federal rules restrict any use of the information to criminally investigate or prosecute any alcohol or drug abuse patient.[facility] HospitalIn the event this information is protected by the Federal Confidentiality of Alcohol and Drug Abuse Patient Records regulations: The Federal rules restrict any use of the information to criminally investigate or prosecute any alcohol or drug abuse patient.[facility] HospitalIn the event this information is protected by the Federal Confidentiality of Alcohol and Drug Abuse Patient Records regulations: The Federal rules restrict any use of the information to criminally investigate or prosecute any alcohol or drug abuse patient.[facility] HospitalIn the event this information is protected by the Federal Confidentiality of Alcohol and Drug Abuse Patient Records regulations: The Federal rules restrict any use of the information to criminally investigate or prosecute any alcohol or drug abuse patient.[facility] HospitalIn the event this information is protected by the Federal Confidentiality of Alcohol and Drug Abuse Patient Records regulations: The Federal rules restrict any use of the information to criminally investigate or prosecute any alcohol or drug abuse patient.[facility] HospitalIn the event this information is protected by the Federal Confidentiality of Alcohol and Drug Abuse Patient Records regulations: The Federal rules restrict any use of the information to criminally investigate or prosecute any alcohol or drug abuse patient.[facility] HospitalIn the event this information is protected by the Federal Confidentiality of Alcohol and Drug Abuse Patient Records regulations: The Federal rules restrict any use of the information to criminally investigate or prosecute any alcohol or drug abuse patient.[facility] HospitalIn the event this information is protected by the Federal Confidentiality of Alcohol and Drug Abuse Patient Records regulations: The Federal rules restrict any use of the information to criminally investigate or prosecute any alcohol or drug abuse patient.[facility] HospitalIn the event this information is protected by the Federal Confidentiality of Alcohol and Drug Abuse Patient Records regulations: The Federal rules restrict any use of the information to criminally investigate or prosecute any alcohol or drug abuse patient.[facility] HospitalIn the event this information is protected by the Federal Confidentiality of Alcohol and Drug Abuse Patient Records regulations: The Federal rules restrict any use of the information to criminally investigate or prosecute any alcohol or drug abuse patient.[facility] HospitalIn the event this information is protected by the Federal Confidentiality of Alcohol and Drug Abuse Patient Records regulations: The Federal rules restrict any use of the information to criminally investigate or prosecute any alcohol or drug abuse patient.[facility] HospitalIn the event this information is protected by the Federal Confidentiality of Alcohol and Drug Abuse Patient Records regulations: The Federal rules restrict any use of the information to criminally investigate or prosecute any alcohol or drug abuse patient.[facility] HospitalIn the event this information is protected by the Federal Confidentiality of Alcohol and Drug Abuse Patient Records regulations: The Federal rules restrict any use of the information to criminally investigate or prosecute any alcohol or drug abuse patient.[facility] HospitalIn the event this information is protected by the Federal Confidentiality of Alcohol and Drug Abuse Patient Records regulations: The Federal rules restrict any use of the information to criminally investigate or prosecute any alcohol or drug abuse patient.[facility] HospitalIn the event this information is protected by the Federal Confidentiality of Alcohol and Drug Abuse Patient Records regulations: The Federal rules restrict any use of the information to criminally investigate or prosecute any alcohol or drug abuse patient.[facility] HospitalIn the event this information is protected by the Federal Confidentiality of Alcohol and Drug Abuse Patient Records regulations: The Federal rules restrict any use of the information to criminally investigate or prosecute any alcohol or drug abuse patient.[facility] HospitalIn the event this information is protected by the Federal Confidentiality of Alcohol and Drug Abuse Patient Records regulations: The Federal rules restrict any use of the information to criminally investigate or prosecute any alcohol or drug abuse patient.[facility] HospitalIn the event this information is protected by the Federal Confidentiality of Alcohol and Drug Abuse Patient Records regulations: The Federal rules restrict any use of the information to criminally investigate or prosecute any alcohol or drug abuse patient.[facility] HospitalIn the event this information is protected by the Federal Confidentiality of Alcohol and Drug Abuse Patient Records regulations: The Federal rules restrict any use of the information to criminally investigate or prosecute any alcohol or drug abuse patient.[facility] HospitalIn the event this information is protected by the Federal Confidentiality of Alcohol and Drug Abuse Patient Records regulations: The Federal rules restrict any use of the information to criminally investigate or prosecute any alcohol or drug abuse patient.[facility] HospitalIn the event this information is protected by the Federal Confidentiality of Alcohol and Drug Abuse Patient Records regulations: The Federal rules restrict any use of the information to criminally investigate or prosecute any alcohol or drug abuse patient.[facility] HospitalIn the event this information is protected by the Federal Confidentiality of Alcohol and Drug Abuse Patient Records regulations: The Federal rules restrict any use of the information to criminally investigate or prosecute any alcohol or drug abuse patient.[facility] HospitalIn the event this information is protected by the Federal Confidentiality of Alcohol and Drug Abuse Patient Records regulations: The Federal rules restrict any use of the information to criminally investigate or prosecute any alcohol or drug abuse patient.[facility] HospitalIn the event this information is protected by the Federal Confidentiality of Alcohol and Drug Abuse Patient Records regulations: The Federal rules restrict any use of the information to criminally investigate or prosecute any alcohol or drug abuse patient.[facility] HospitalIn the event this information is protected by the Federal Confidentiality of Alcohol and Drug Abuse Patient Records regulations: The Federal rules restrict any use of the information to criminally investigate or prosecute any alcohol or drug abuse patient.[facility] HospitalIn the event this information is protected by the Federal Confidentiality of Alcohol and Drug Abuse Patient Records regulations: The Federal rules restrict any use of the information to criminally investigate or prosecute any alcohol or drug abuse patient.[facility] HospitalIn the event this information is protected by the Federal Confidentiality of Alcohol and Drug Abuse Patient Records regulations: The Federal rules restrict any use of the information to criminally investigate or prosecute any alcohol or drug abuse patient.[facility] HospitalIn the event this information is protected by the Federal Confidentiality of Alcohol and Drug Abuse Patient Records regulations: The Federal rules restrict any use of the information to criminally investigate or prosecute any alcohol or drug abuse patient.[facility] HospitalIn the event this information is protected by the Federal Confidentiality of Alcohol and Drug Abuse Patient Records regulations: The Federal rules restrict any use of the information to criminally investigate or prosecute any alcohol or drug abuse patient.[facility] HospitalIn the event this information is protected by the Federal Confidentiality of Alcohol and Drug Abuse Patient Records regulations: The Federal rules restrict any use of the information to criminally investigate or prosecute any alcohol or drug abuse patient.[facility] HospitalIn the event this information is protected by the Federal Confidentiality of Alcohol and Drug Abuse Patient Records regulations: The Federal rules restrict any use of the information to criminally investigate or prosecute any alcohol or drug abuse patient.[facility] HospitalIn the event this information is protected by the Federal Confidentiality of Alcohol and Drug Abuse Patient Records regulations: The Federal rules restrict any use of the information to criminally investigate or prosecute any alcohol or drug abuse patient.[facility] HospitalIn the event this information is protected by the Federal Confidentiality of Alcohol and Drug Abuse Patient Records regulations: The Federal rules restrict any use of the information to criminally investigate or prosecute any alcohol or drug abuse patient.[facility] HospitalIn the event this information is protected by the Federal Confidentiality of Alcohol and Drug Abuse Patient Records regulations: The Federal rules restrict any use of the information to criminally investigate or prosecute any alcohol or drug abuse patient.[facility] Reason for Visit (unrecogniz ed section and content) Reason Onset Date Comments [facility] Follow Up 08/11 TCM Reason Comments Results Reason Comments Consult Carotid Stenosis Reason Comments New Patient Specialty Diagnoses / Procedures Referred By Contsaniya cartagena Referred To Contact Neurosurgery Diagnoses Stenosis of right carotid artery Procedures CONSULT TO NEUROSURGERY OFFICE/OUTPATIENT NEW HIGH MDM 60-74 MINUTES Cornelio Persaud MD [address] [facility] [place] [id number] Referral ID Status Reason Start Date Expiration Date Visits Requested Visits Authorized [id number] Pending Review PCP Requested Referral 10/12/2021 10/12/2022 1 1 Reason Comments Diabetes Reason Comments Consult Reason Comments Follow Up Positive antiplatele t factor 4 antibody. Reason Comments Established Patient Stenosis of right ca rotid artery Stenosis Reason Comments Diabetes Low blood sugar Reason Comments Low Blood Sugar Reason Onset Date Comments Refill Request 03/01/2022 Reason Comments New Patient Reason Comments Orders Reason Comments Glucose Readings Reason Onset Date Comments Refill Request 07/04/2022 Reason Comments PA--FREESTYLE YESSENIA 2 Reason Comments Blood Sugar Elevation Reason Comments Follow Up Reason Comments ER follow up appt question Reason Onset Date Comments Refill Request 09/18/2022 Reason Comments ED Follow-up Reason Comments Hearing Loss Specialty Diagnoses / Procedures Referred By Contac t Referred To Contact Diagnoses Sensorineural hearing loss (SNHL) of both ears Procedures HEARING TEST/AUDIOGRAM COMPRE AUDIOMETRY THRESHOLD EVAL SP RECOGNIJ Yamini, SammDO maira [address] [place] [address] [facility] [address] [place] [address] Referral ID Status Reason Start Date Expiration Date V isits Requested Visits Authorized [id number] Closed Auto-Generate d Referral 09/22/2022 12/21/2022 1 1 Reason Onset Date Comments Population Health Navigation Outreach 11/13/2022 [employer] Care Gaps Reason Comments 8 month follow up Reason Comments Results Patient Update Reason Comments New Patient Evaluation Specialty Diagnoses / Procedures Referred By Contac t Referred To Contact Neurology Diagnoses Memory loss Procedures CONSULT TO NEUROLOGY OFFICE/OUTPATIENT NEW HIGH MDM 60-74 MINUTES Samm Kc DO [address] [place] [address] Referral ID Status Reason Start Date Expiration Date Visits Requested Visits Authorized [id number] Pending Review PCP Requested Referral 09/22/2022 09/22/2023 1 1 Reason Comments Patient Update Reason Comments Metoprolol Reason Comments Appointment Reason Comments Radiology US Specialty Diagnoses / Procedures Referred By Contac t Referred To Contact US IMAGING Diagnoses Screening for abdominal aortic aneurysm Procedures US SCREENING FOR AAA (2017) US ABDOMINAL AORTA REAL TIME SCREEN STUDY AAA Samm Kc DO [address] [place] [address] [facility] [place] [address] Referral ID Status Reason Start Date Expiration Date V isits Requested Visits Authorized [id number] Closed Auto-Generate d Referral 04/12/2022 05/12/2023 1 1 Specialty Diagnoses / Procedures Referred By Contac t Referred To Contact MR IMAGING Diagnoses Occlusion and stenosis of unspecified carotid artery Procedures MRA CAROTID WO/W IVCON MRA,NECK; W/[place] [address] [place] [address] [place] [address] Referral ID Status Reason Start Date Expiration Date V isits Requested Visits Authorized [id number] Closed Auto-Generate d Referral 04/22/2022 05/22/2023 1 1 Reason Comments Refill Request Reason Comments Medication Problem Reason Comments Appointment Miralax prep instruc tions mailed Reason Comments Patient Question Reason Comments referrals Reason Comments LESION, SKIN Reason Comments Results Reason Comments medical records Spouse checking if w e recived medical records Reason Onset Date Comments Refill Request 11/12/2023 Reason Comments Patient Question Patient Update Spouse states MRI wi ll be sent to provider Reason Comments Follow Up Reason Comments New Diabetic Foot Care Specialty Diagnoses / Procedures Referred By Contac t Referred To Contact Podiatry Diagnoses Onychomycosis Procedures CONSULT TO PODIATRY OFFICE/OUTPATIENT [facility] [address] [place] [address] [place] [address] Referral ID Status Reason Start Date Expiration Date V isits Requested Visits Authorized [id number] Closed PCP Requested Referral 06/18/2023 06/17/2024 1 1 Reason Comments Pain (Shoulder Pain) Reason Comments Pain (Shoulder Pain) Reason Onset Date Comments pre op prep 12/25/2023 Reason Comments Urgent Reason Comments Mohs Specialty Diagnoses / Procedures Referred By Contac t Referred To Contact Dermatology Diagnoses 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 Procedures MOHS OFFICE/OUTPATIENT [facility] 60 MINUTES Анна Perez PA-C [address] [place] [address] Referral ID Status Reason Start Date Expiration Date V isits Requested Visits Authorized [id number] Closed PCP Requested Referral 11/02/2023 11/01/2024 1 1 Reason Comments Patient Update Patient Question Pt disengaged, seems depressed Reason Comments Clinical Update Reason Onset Date Comments Refill Request 12/31/2023 Medication Problem 12/31/2023 Patient out o f Lipitor Reason Comments Suture Removal Reason Comments Follow Up Reason Comments Full Body Skin Check Reason Comments Patient Question Spouse has questions /concerns Reason Comments Fever Reason Comments see triage call Reason Comments Radiology NM Specialty Diagnoses / Procedures Referred By Contac t Referred To Contact MOLECULAR & FUNCTIONAL IMAGING Diagnoses Encounter for screening for cardiovascular disorders Procedures NM CARDIAC PERF STRESS/PHARM MYOCARDIAL SPECT MULTIPLE STUDIES [place], Deanne El, DO [address] [place] [address] [facility] [address] [place] [address] Referral ID Status Reason Start Date Expiration Date Visits Re quested Visits Authorized [id number] Closed 09/22/2021 10/22/2021 1 1 Reason Comments Radio Gen RMP Specialty Diagnoses / Procedures Referred By Moisés cartagena Referred To Contact Dermatology Diagnoses 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 Procedures MOHS OFFICE/OUTPATIENT [facility] 60 MINUTES Анна Perez PA-C [address] [place] [address] Referral ID Status Reason Start Date Expiration Date V isits Requested Visits Authorized [id number] Closed PCP Requested Referral 01/14/2024 01/13/2025 1 1 Reason Comments Cardiology Follow Up Reason Comments Depression Reason Comments Ambulatory Social Work Community resourc es Reason Comments Appointment Colonoscopy Reason Comments dog scratch 2-3 days ago dog scr atch, top of rt hand Reason Onset Date Comments Population Health Navigation Outreach 05/12/2024 [facility] [facility] Reason Comments Referral Request Reason Comments 6 Month Exam Reason Comments Geriatric Evaluation Specialty Diagnoses / Procedures Referred By Moisés cartagena Referred To Contact Gerontology Diagnoses Mixed Alzheimer and vascular dementia (HCC) Dementia with behavioral disturbance (HCC) Memory loss Procedures CONSULT TO GERIATRICS OFFICE/OUTPATIENT [facility] 60 MINUTES Samm Kc DO [address] [place] [address] Phone: tel: fax: Referral ID Status Reason Start Date Expiration Date V isits Requested Visits Authorized [id number] Closed PCP Requested Referral 05/30/2024 05/30/2025 1 1 Reason Comments Medication Question antidepressant meds Reason Comments Patient Request Referral Reason Comments Opened In Error Reason Comments Patient Request ex spouse Reason Comments Callous Diabetic Foot Check Bilateral nail care Reason Comments Consult History of colonic p olyps Last Colonoscopy 05/29/24 Specialty Diagnoses / Procedures Referred By Moisés cartagena Referred To Contact Gastroenterology Diagnoses History of colonic polyps Procedures CONSULT TO GASTROENTEROLOGY OFFICE/OUTPATIENT [facility] 60 MINUTES Karol Rodriguez, [employer] [address] [place] [address] Phone: tel: fax: Referral ID Status Reason Start Date Expiration Date V isits Requested Visits Authorized [id number] Closed PCP Requested Referral 09/02/2024 09/02/2025 1 1 Reason Onset Date Comments Refill Request 10/08/2024 Reason Onset Date Comments Population Health Navigation Outreach 11/06/2024 [employer] Reason Comments Follow Up Established Patient Reason Onset Date Comments Results 12/29/2024 Reason Comments Hypotension Reason Comments High Blood Sugar Reason Comments Recheck Reason Comments Consult Anemia Reason Comments Follow Up Anemia Reason Onset Date Comments Transition Of Care 01/08/2025 Reason Comments Home Care Follow for HHC Reason Comments Home Care Confirmation Call Reason Comments Home Care Orders Reason Comments Radiology NM Specialty Diagnoses / Procedures Referred By Contac t Referred To Contact MOLECULAR & FUNCTIONAL IMAGING Diagnoses Mantle cell lymphoma, unspecified body region (HCC) Lymphadenopathy, cervical Procedures NM PET/CT SKULL-THIGH INITIAL PET IMAGING CT ATTENUATION SKULL BASE MID-THIGH Amy Angeles, [employer] [address] [place] [address] Phone: tel: fax: Molecular Imaging [address] [place] [address] Phone: tel: Referral ID Status Reason Start Date Expiration Date Visits Re quested Visits Authorized [id number] Closed 01/22/2025 03/23/2025 2 2 Reason Comments request [place] freestyle Yessenia 3 Reason Comments Jaundice Reason Comments Insurance Authorization Blood-Glucose Me ter,Continuous (FREESTYLE YESSENIA 3 READER) misc Reason Comments Orders Reason Onset Date Comments Population Health Navigation Outreach 01/29/2025 [facility] Reason Onset Date Comments Transition Of Care 02/10/2025 Chart review Reason Comments Hospital Follow Up Reason Comments Consult Specialty Diagnoses / Procedures Referred By Contac t Referred To Contact Diagnoses Anemia, unspecified type Enlarged lymph nodes Procedures OFFICE/OUTPATIENT NEW HIGH MDM 60 MINUTES Karol Rodriguez, [employer] [address] [place] [address] Phone: tel: fax: Referral ID Status Reason Start Date Expiration Date V isits Requested Visits Authorized [id number] Closed PCP Requested Referral 01/05/2025 01/05/2026 1 1 Reason Onset Date Comments Allied Health Visit 02/16/2025 Medication A dherence Outreach Reason Comments CARD Follow Up Annual Reason Comments Abrasion Left arm. Pt's dog s cratched him the other day. Care Teams (unrecognized sec tion and content) Android Developer Relationship Specialty Start Date End Date Wong Gordillo MD [address] [phone] PCP - General Internal Medicine 01/04/21 [place] [address] [place] [address] Spine Health 05/17/18 Android Developer Relationship Specialty Start Date End Date Wong Gordillo MD [address] [address] PCP - General Internal Medicine 01/04/21 [place] [address] [place] [address] Spine Health 05/17/18 Android Developer Relationship Specialty Start Date End Date Quinn Sharp V, MD [address] [phone] PCP - General Pulmonary Disease 10/10/21 [place] [address] [place] [address] Spine Health 05/17/18 Android Developer Relationship Specialty Start Date End Date Quinn Sharp V, MD [address] [phone] PCP - General Pulmonary Disease 10/10/21 [place] [address] [place] [address] Sp[facility] 05/17/18 Android Developer Relationship Specialty Start Date End Date Quinn Sharp V, MD [address] [phone] PCP - General Pulmonary Disease 10/10/21 [place] [address] [place] [address] Sp[facility] 05/17/18 Android Developer Relationship Specialty Start Date End Date Wong Gordillo MD [address] [facility] [address] [place] [address] PCP - General Internal Medicine 10/27/21 [place] [address] [place] [address] Spine Health 05/17/18 Android Developer Relationship Specialty Start Date End Date Wong Gordillo MD [address] [place] [address] [place] [address] PCP - General Internal Medicine 10/27/21 [place] [address] [place] [address] Spine Health 05/17/18 Android Developer Relationship Specialty Start Date End Date Wong Gordillo MD [address] [facility] [address] [place] [address] PCP - General Internal Medicine 10/27/21 [place] [address] [place] [address] Spine Health 05/17/18 Android Developer Relationship Specialty Start Date End Date Wong Gordillo MD [address] [facility] [address] [place] [address] PCP - General Internal Medicine 10/27/21 [place] [address] [place] [address] Spine Health 05/17/18 Android Developer Relationship Specialty Start Date End Date Wong Gordillo MD [address] [facility] [address] [place] [address] PCP - General Internal Medicine 10/27/21 [place] [address] [place] [address] Spine Health 05/17/18 Android Developer Relationship Specialty Start Date End Date Wong Gordillo MD [address] [facility] [address] [place] [address] PCP - General Internal Medicine 10/27/21 [place] [address] [place] [address] Spine Health 05/17/18 Android Developer Relationship Specialty Start Date End Date Wong Gordillo MD [address] [facility] [address] [place] [address] PCP - General Internal Medicine 10/27/21 [place] [address] [place] [address] Spine Health 05/17/18 Android Developer Relationship Specialty Start Date End Date Wong Gordillo MD [address] [facility] [address] [place] [address] PCP - General Internal Medicine 10/27/21 [place] [address] [place] [address] Spine Health 05/17/18 Android Developer Relationship Specialty Start Date End Date Wong Gordillo MD [address] [place] [address] [place] [address] PCP - General Internal Medicine 10/27/21 [place] [address] [place] [address] Spine Health 05/17/18 Android Developer Relationship Specialty Start Date End Date Samm Kc DO [address] [place] [address] PCP - General Family Medicine 04/12/22 [place] [address] [place] [address] Sp[facility] 05/17/18 [place] [address] [place] [address] [facility] 04/06/22 Android Developer Relationship Specialty Start Date End Date Samm Kc DO [address] [place], [place] [phone] PCP - General Family Medicine 04/12/22 [place] [address] [place] [address] [facility] 05/17/18 [place] [address] [place] [address] [facility] 04/06/22 Android Developer Relationship Specialty Start Date End Date Samm Kc DO [address] [place], [place] [phone] PCP - General Family Medicine 04/12/22 [place] [address] [place] [address] [facility] 05/17/18 [place] [address] [place] [address] [facility] 04/06/22 Android Developer Relationship Specialty Start Date End Date YaminiSamm shepherd DO [address] [place], [place] [id number] PCP - General Family Medicine 04/12/22 Luis Bro[place] [address] [place] [address] [facility] 05/17/18 Prisc[place] [id number] [place] [address] [facility] 04/06/22 Android Developer Relationship Specialty Start Date End Date Samm Kc DO [address] [place] [address] PCP - General Family Medicine 04/12/22 Luis Brooke DO [address] [place] [address] [facility] 05/17/18 [place] [address] [place] [address] [facility] 04/06/22 Android Developer Relationship Specialty Start Date End Date Samm Kc DO [address] [place], [place] 114382 PCP - General Family Medicine 04/12/22 [place] [address] [place] [address] [facility] 05/17/18 Priscilla Salas MD [id number] [place] [address] [facility] 04/06/22 Android Developer Relationship Specialty Start Date End Date Samm Kc DO [address] [place], [place] 072242 PCP - General Family Medicine 04/12/22 Luis Brooke DO [address] [place] [address] [facility] 05/17/18 Priscilla Salas MD [id number] [place] [address] [facility] 04/06/22 Android Developer Relationship Specialty Start Date End Date Samm Kc DO [address] [place], [place] 414242 PCP - General Family Medicine 04/12/22 Luis Bro[place] [address] [place] [address] [facility] 05/17/18 Priscilla Salas MD [id number] [place] [address] [facility] 04/06/22 Android Developer Relationship Specialty Start Date End Date Samm Kc DO [address] [place] [address] PCP - General Family Medicine 04/12/22 Luis Brooke DO [address] [place] [address] [facility] 05/17/18 [place] [address] [place] [address] [facility] 04/06/22 Android Developer Relationship Specialty Start Date End Date Samm Kc DO [address] [place] [address] PCP - General Family Medicine 04/12/22 [place] [address] [place] [address] [facility] 05/17/18 [place] [address] [place] [address] [facility] 04/06/22 Android Developer Relationship Specialty Start Date End Date Samm Kc DO [address] [place] [address] PCP - General Family Medicine 04/12/22 [place] [address] [place] [address] [facility] 05/17/18 [place] [address] [place] [address] [facility] 04/06/22 Android Developer Relationship Specialty Start Date End Date Samm Kc DO [address] [place], [place] 035502 PCP - General Family Medicine 04/12/22 [place] [address] [place] [address] [facility] 05/17/18 [place] [address] [place] [address] [facility] 04/06/22 Android Developer Relationship Specialty Start Date End Date Samm Kc DO [address] [place] [address] PCP - General Family Medicine 04/12/22 [place] [address] [place] [address] [facility] 05/17/18 [place] [address] [place] [address] [facility] 04/06/22 Android Developer Relationship Specialty Start Date End Date Samm Kc DO [address] [place] [address] PCP - General Family Medicine 04/12/22 [place] [address] [place] [address] [facility] 05/17/18 [place] [address] [place] [address] [facility] 04/06/22 Android Developer Relationship Specialty Start Date End Date Samm Kc DO [address] [place], [place] 338512 PCP - General Family Medicine 04/12/22 [place] [address] [place] [address] Spine [facility] 05/17/18 [place] [address] [place] [address] [facility] 04/06/22 Android Developer Relationship Specialty Start Date End Date Samm Kc DO [address] [place] [address] PCP - General Family Medicine 04/12/22 [place] [address] [place] [address] [facility] 05/17/18 [place] [address] [place] [address] [facility] 04/06/22 Android Developer Relationship Specialty Start Date End Date Samm Kc DO [address] [place] [address] PCP - General Family Medicine 04/12/22 [place] [address] [place] [address] [facility] 05/17/18 [place] [address] [place] [address] [facility] 04/06/22 Android Developer Relationship Specialty Start Date End Date Samm Kc DO [address] [place], [place] 567832 PCP - General Family Medicine 04/12/22 [place] [address] [place] [address] [facility] 05/17/18 [place] [address] [place], [place] [phone] [facility] 04/06/22 Android Developer Relationship Specialty Start Date End Date Marlon KcrielDO [address] [place] [address] PCP - General Family Medicine 04/12/22 [place] [address] [place] [address] [facility] 05/17/18 [place] [address] [place], [place] 9525536 [facility] 04/06/22 Android Developer Relationship Specialty Start Date End Date Samm Kc DO [address] [place] [address] PCP - General Family Medicine 04/12/22 [place] [address] [place] [address] [facility] 05/17/18 [place] [address] [place] [address] [facility] 04/06/22 Android Developer Relationship Specialty Start Date End Date Yamini Samm [address] [place], [place] 719152 PCP - General Family Medicine 04/12/22 [place] [address] [place] [address] Spine [facility] 05/17/18 [place] [address] [place] [address] [facility] 04/06/22 Android Developer Relationship Specialty Start Date End Date Samm Kc DO [address] [place] [address] PCP - General Family Medicine 04/12/22 [place] [address] [place] [address] Spine [facility] 05/17/18 [place] [address] [place] [address] [facility] 04/06/22 Android Developer Relationship Specialty Start Date End Date Yamini SammDO maira [address] [place] [address] PCP - General Family Medicine 04/12/22 [place] [address] [place] [address] [facility] 05/17/18 [place] [address] [place] [address] [facility] 04/06/22 Android Developer Relationship Specialty Start Date End Date Samm Kc [address] [place], [place] [id number] PCP - General Family Medicine 04/12/22 [place] [address] [place], [place] 7558336 [facility] 05/17/18 [place] [address] [place], [place] 7885736 [facility] 04/06/22 Android Developer Relationship Specialty Start Date End Date Yamini SammDO [address] [place], [place] [phone] PCP - General Family Medicine 04/12/22 [place] [address] [place] [address] [facility] 05/17/18 [place] [address] [place] [address] [facility] 04/06/22 Android Developer Relationship Specialty Start Date End Date Yamini SammDO [address] [place], [place] 229552 PCP - General Family Medicine 04/12/22 [place] [address] [place] [address] [facility] 05/17/18 [place] [address] [place] [address] [facility] 04/06/22 Android Developer Relationship Specialty Start Date End Date Samm Kc DO [address] [place] [address] PCP - General Family Medicine 04/12/22 [place] [address] [place] [address] [facility] 05/17/18 [place] [address] [place] [address] [facility] 04/06/22 Android Developer Relationship Specialty Start Date End Date Samm Kc DO [address] [place] [address] PCP - General Family Medicine 04/12/22 [place] [address] [place] [address] [facility] 05/17/18 [place] [address] [place] [address] [facility] 04/06/22 Android Developer Relationship Specialty Start Date End Date Samm Kc DO [address] [place], [place] 618072 PCP - General Family Medicine 04/12/22 [place] [address] [place] [address] Spine [facility] 05/17/18 [place] [address] [place] [address] [facility] 04/06/22 Android Developer Relationship Specialty Start Date End Date Samm Kc DO [address] [place] [address] PCP - General Family Medicine 04/12/22 [place] [address] [place] [id number] [facility] 05/17/18 [place] [address] [place] [address] [facility] 04/06/22 Android Developer Relationship Specialty Start Date End Date Samm Kc DO [address] [place] [address] PCP - General Family Medicine 04/12/22 [place] [address] [place] [address] Spine [facility] 05/17/18 [place] [address] [place] [address] [facility] 04/06/22 Android Developer Relationship Specialty Start Date End Date Samm Kc DO [address] [place], [place] 846682 PCP - General Family Medicine 04/12/22 [place] [address] [place] [address] Spine [facility] 05/17/18 [place] [address] [place], [place] 9719736 [facility] 04/06/22 Android Developer Relationship Specialty Start Date End Date Samm Kc DO [address] [place], [place] 257532 PCP - General Family Medicine 04/12/22 [place] [address] [place] [address] Spine [facility] 05/17/18 [place] [address] [place], [place] 8726136 [facility] 04/06/22 Android Developer Relationship Specialty Start Date End Date Samm KcDO [address] [place] [address] PCP - General Family Medicine 04/12/22 [place] [address] [place] [address] [facility] 05/17/18 [place] [address] [place] [address] [facility] 04/06/22 Android Developer Relationship Specialty Start Date End Date Samm Kc DO [address] [place], [place] 522212 PCP - General Family Medicine 04/12/22 [place] [address] [place] [address] Spine [facility] 05/17/18 [place] [address] [place] [address] [facility] 04/06/22 Android Developer Relationship Specialty Start Date End Date Yamini SammDO [address] [place] [address] PCP - General Family Medicine 04/12/22 [place] [address] [place] [address] Spine [facility] 05/17/18 [place] [address] [place] [address] [facility] 04/06/22 Android Developer Relationship Specialty Start Date End Date Yamini SammDO [address] [place] [address] PCP - General Family Medicine 04/12/22 [place] [address] [place] [address] [facility] 05/17/18 [place] [address] [place] [address] [facility] 04/06/22 Android Developer Relationship Specialty Start Date End Date Samm Kc DO [address] [place] [address] PCP - General Family Medicine 04/12/22 [place] [address] [place] [address] [facility] Healthcare 05/17/18 [place] [address] [place] [address] [facility] 04/06/22 Android Developer Relationship Specialty Start Date End Date Samm Kc DO [address] [place] [address] PCP - General Family Medicine 04/12/22 [place] [address] [place] [address] Spine Health 05/17/18 [place] [address] [place] [address] [facility] 04/06/22 Android Developer Relationship Specialty Start Date End Date Wong Gordillo MD [address] [address] PCP - General Internal Medicine 01/04/21 10/09/21 [place] [address] [place] [address] Spine Health 05/17/18 Android Developer Relationship Specialty Start Date End Date Wong Gordlilo MD [address] [facility] [address] [place] [address] PCP - General Internal Medicine 01/04/21 10/09/21 [place] [address] [place] [address] Spine Health 05/17/18 Android Developer Relationship Specialty [place] [address] [place] [address] Spine Health 05/17/18 Android Developer Relationship Specialty Start Date End Date Samm Kc DO [address] [place], [place] 551582 PCP - General Family Medicine 04/12/22 [place] [address] [place] [address] Spine Health 05/17/18 [place] [address] [place], [place] 0650336 [facility] 04/06/22 Android Developer Relationship Specialty Start Date End Date Samm Kc DO [address] [place] [address] PCP - General Family Medicine 04/12/22 [place] [address] [place] [address] [facility] 05/17/18 [place] [address] [place] [address] [facility] 04/06/22 Android Developer Relationship Specialty Start Date End Date Samm Kc DO [address] [place] [address] PCP - General Family Medicine 04/12/22 [place] [address] [place] [address] [facility] 05/17/18 [place] [address] [place] [address] [facility] 04/06/22 Android Developer Relationship Specialty Start Date End Date Samm Kc DO [address] [place] [address] PCP - General Family Medicine 04/12/22 [place] [address] [place] [address] [facility] 05/17/18 [place] [address] [place] [address] [facility] 04/06/22 Android Developer Relationship Specialty Start Date End Date Samm Kc DO [address] [place], [place] 380332 PCP - General Family Medicine 04/12/22 [place] [address] [place] [address] [facility] 05/17/18 [place] [address] [place] [address] [facility] 04/06/22 Android Developer Relationship Specialty Start Date End Date YaminiSamm shepherd DO [address] [place], [place] 405652 PCP - General Family Medicine 04/12/22 [place] [address] [place] [address] [facility] 05/17/18 [place] [address] [place] [address] [facility] 04/06/22 Android Developer Relationship Specialty Start Date End Date Samm Kc DO [address] [place] [address] PCP - General Family Medicine 04/12/22 [place] [address] [place] [address] [facility] 05/17/18 [place] [address] [place] [address] [facility] 04/06/22 Toni Duran APRN.BRICK OR BLOCK MAKER [address] [place], [place] 195172 Acting Teacher [facility] 05/19/24 Android Developer Relationship Specialty Start Date End Date Samm Kc DO [address] [place], [place] 250912 PCP - General Family Medicine 04/12/22 [place] [address] [place], [place] 6253236 Spine Health 05/17/18 [place] [address] [place], [place] 5648736 [facility] 04/06/22 Toni Duran APRN.BRICK OR BLOCK MAKER [address] [place], [place] 988972 Acting Teacher [facility] 05/19/24 Android Developer Relationship Specialty Start Date End Date Samm Kc DO [address] [place], [place] 829182 PCP - General Family Medicine 04/12/22 [place] [address] [place], [place] 8071336 Spine Health 05/17/18 [place] [address] [place] [address] [facility] 04/06/22 Toni Duran APRN.BRICK OR BLOCK MAKER [address] [place], [place] 190602 Acting Teacher Family Medicine 05/19/24 Android Developer Relationship Specialty Start Date End Date Samm Kc DO [address] [place] [address] PCP - General Family Medicine 04/12/22 [place] [address] [place] [address] Spine Health 05/17/18 [place] [address] [place] [address] [facility] 04/06/22 Toni Duran APRN.BRICK OR BLOCK MAKER [address] [place] [address] Acting Teacher Family [facility] 05/19/24 Android Developer Relationship Specialty Start Date End Date Samm Kc [address] [place] [address] PCP - General Family Medicine 04/12/22 [place] [address] [place] [address] Spine Health 05/17/18 [place] [address] [place] [address] [facility] 04/06/22 Toni Duran APRN.BRICK OR BLOCK MAKER [address] [place] [address] Acting Teacher Family [facility] 05/19/24 Android Developer Relationship Specialty Start Date End Date Samm Kc DO [address] [place], [place] 636042 PCP - General Family Medicine 04/12/22 [place] [address] [place] [address] Spine [facility] 05/17/18 [place] [address] [place], [place] 9572936 [facility] 04/06/22 Toni Duran APRN.BRICK OR BLOCK MAKER [address] [place] [address] Acting Teacher Family [facility] 05/19/24 Android Developer Relationship Specialty Start Date End Date Yamini SammDO [address] [place], [place] 706462 PCP - General Family Medicine 04/12/22 [place] [address] [place] [address] Spine [facility] 05/17/18 [place] [address] [place] [address] [facility] 04/06/22 Toni Duran APRN.BRICK OR BLOCK MAKER [address] [place], [place] 543952 Acting Teacher Family [facility] 05/19/24 Android Developer Relationship Specialty Start Date End Date Samm Kc DO [address] [place] [address] PCP - General Family Medicine 04/12/22 [place] [address] [place] [address] [facility] 05/17/18 [place] [address] [place] [address] [facility] 04/06/22 Toni Duran, TU.BRICK OR BLOCK MAKER [address] [place], [place] 559102 Acting Teacher Family [facility] 05/19/24 Android Developer Relationship Specialty Start Date End Date Samm Kc DO [address] [place] [address] PCP - General Family Medicine 04/12/22 [place] [address] [place] [address] [facility] 05/17/18 [place] [address] [place] [address] [facility] 04/06/22 Toni Duran, SECURITIES BROKER.BRICK OR BLOCK MAKER [address] [place], [place] 230402 Acting Teacher Family Medicine 05/19/24 Android Developer Relationship Specialty Start Date End Date Samm Kc DO [address] [place], [place] 343492 PCP - General Family Medicine 04/12/22 [place] [address] [place] [address] [facility] 05/17/18 [place] [address] [place], [place] 3213250 [phone] [facility] 04/06/22 Toni Duran APRN.BRICK OR BLOCK MAKER [address] [place], [place] 547552 Acting Teacher Family Medicine 05/19/24 Della Alicia APRN.BRICK OR BLOCK MAKER [address] [place], [place] 466962 Acting Teacher Family Medicine 08/22/24 Android Developer Relationship Specialty Start Date End Date Samm Kc DO [address] [place], [place] [id number] PCP - General Family Medicine 04/12/22 [place] [address] [place] [address] [facility] 05/17/18 [place] [address] [place] [address] [facility] 04/06/22 Toni Duran APRN.BRICK OR BLOCK MAKER [address] [place], [place] 568972 Acting Teacher Family Medicine 05/19/24 Della Alicia SECURITIES BROKER.BRICK OR BLOCK MAKER [address] [place], [place] [phone] Acting Teacher [facility] 08/22/24 Android Developer Relationship Specialty Start Date End Date Samm Kc DO [address] [place], [place] 748692 PCP - General Family Medicine 04/12/22 [place] [address] [place], [place] 9073736 Spine Health 05/17/18 [place] [address] [place] [address] [facility] 04/06/22 Toni Duran APRN.BRICK OR BLOCK MAKER [address] [place] [address] Acting Teacher Family Medicine 05/19/24 Della Alicia, SECURITIES BROKER.BRICK OR BLOCK MAKER [address] [place] [address] [facility] 08/22/24 Android Developer Relationship Specialty Start Date End Date Samm Kc DO [address] [place] [address] PCP - General Family Medicine 04/12/22 [place] [address] [place], [place] 2209136 Spine [facility] 05/17/18 [place] [address] [place], [place] 9909736 [facility] 04/06/22 Toni Duran APRN.BRICK OR BLOCK MAKER [address] [place], [place] 225472 Acting Teacher Family Medicine 05/19/24 Della Alicia, SECURITIES BROKER.BRICK OR BLOCK MAKER [address] [place], [place] 699952 Acting Teacher Family [facility] 08/22/24 Android Developer Relationship Specialty Start Date End Date Samm KcDO [address] [place], [place] 922802 PCP - General Family Medicine 04/12/22 [place] [address] [place], [place] 9719136 [facility] 05/17/18 [place] [address] [place], [place] 2413436 [facility] 04/06/22 Toni Duran APRN.BRICK OR BLOCK MAKER [address] [place], [place] 277802 Acting Teacher Family [facility] 05/19/24 Della Alicia, SECURITIES BROKER.BRICK OR BLOCK MAKER [address] [place], [place] 819322 Acting Teacher [facility] 08/22/24 Android Developer Relationship Specialty Start Date End Date Samm KcDO [address] [place], [place] 111052 PCP - General Family Medicine 04/12/22 [place] [address] [place], [place] 0759236 Spine Health 05/17/18 [place] [address] [place], [place] 5592636 [facility] 04/06/22 Toni Duran APRN.BRICK OR BLOCK MAKER [address] [place], [place] 236132 Acting Teacher Family [facility] 05/19/24 Della Alicia, SECURITIES BROKER.BRICK OR BLOCK MAKER [address] [place], [place] 873142 [facility] 08/22/24 Android Developer Relationship Specialty Start Date End Date Samm Kc DO [address] [place], [place] 443062 PCP - General Family Medicine 04/12/22 [place] [address] [place], [place] 2781136 Spine Health 05/17/18 [place] [address] [place], [place] 8414536 [facility] 04/06/22 Toni Duran, SECURITIES BROKER.BRICK OR BLOCK MAKER [address] [place], [place] 370732 Acting Teacher Family [facility] 05/19/24 Della Alicia APRN.BRICK OR BLOCK MAKER [address] [place], [place] 083112 [facility] 08/22/24 Android Developer Relationship Specialty Start Date End Date Samm Kc DO [address] [place], [place] 027192 PCP - General Family Medicine 04/12/22 [place] [address] [place], [place] 2584136 [facility] 05/17/18 [place] [address] [place], [place] 4027336 [facility] 04/06/22 Scarlett Tan APRN.BRICK OR BLOCK MAKER [address] [place], [place] 072062 Acting Teacher Family Medicine 10/24/24 Android Developer Relationship Specialty Start Date End Date Samm Kc DO [address] [place] [address] PCP - General Family Medicine 04/12/22 [place] [address] [place] [address] [facility] 05/17/18 [place] [address] [place] [address] [facility] 04/06/22 Toni Duran SECURITIES BROKER.BRICK OR BLOCK MAKER [address] [place], [place] 107662 Acting Teacher Family Medicine 11/12/24 Della Alicia, SECURITIES BROKER.BRICK OR BLOCK MAKER [address] [place], [place] [phone] Acting Teacher Family Medicine 11/12/24 Android Developer Relationship Specialty Start Date End Date Samm Kc DO [address] [place], [place] 261642 PCP - General Family Medicine 04/12/22 [place] [address] [place] [address] Spine [facility] 05/17/18 [place] [address] [place] [address] [facility] 04/06/22 Toni Duran APRN.BRICK OR BLOCK MAKER [address] [place] [address] Acting Teacher Family Medicine 11/12/24 Della Alicia, SECURITIES BROKER.BRICK OR BLOCK MAKER [address] [place], [place] [phone] Acting Teacher Family Medicine 11/12/24 Android Developer Relationship Specialty Start Date End Date Samm Kc DO [address] [place] [address] PCP - General Family Medicine 04/12/22 [place] [address] [place] [address] Sp[facility] 05/17/18 [place] [address] [place] [address] [facility] 04/06/22 Toni Duran APRN.BRICK OR BLOCK MAKER [address] [place], [place] 956322 Acting Teacher Family Medicine 11/12/24 Della Alicia, SECURITIES BROKER.BRICK OR BLOCK MAKER [address] [place], [place] 460942 Acting Teacher Family Medicine 11/12/24 Android Developer Relationship Specialty Start Date End Date Yamini SammDO [address] [place], [place] 861322 PCP - General Family Medicine 04/12/22 [place] [address] [place], [place] 0754836 [facility] 05/17/18 [place] [address] [place], [place] 6494436 [facility] 04/06/22 Toni Duran APRN.BRICK OR BLOCK MAKER [address] [place], [place] 888872 Acting Teacher Family Medicine 11/12/24 Della Alicia, SECURITIES BROKER.BRICK OR BLOCK MAKER [address] [place], [place] 382542 Acting Teacher Family Medicine 11/12/24 Android Developer Relationship Specialty Start Date End Date Samm Kc [address] [place], [place] 612352 PCP - General Family Medicine 04/12/22 [place] [address] [place], [place] 2314536 Spine Health 05/17/18 [place] [address] [place], [place] 2866136 [facility] 04/06/22 Toni Duran APRN.BRICK OR BLOCK MAKER [address] [place], [place] 607952 Acting Teacher Family Medicine 11/12/24 Della Alicia APRN.BRICK OR BLOCK MAKER [address] [place], [place] [phone] Acting Teacher Family Medicine 11/12/24 Android Developer Relationship Specialty Start Date End Date Samm Kc DO [address] [place], [place] 551842 PCP - General Family Medicine 04/12/22 [place] [address] [place], [place] 4379136 Spine Health 05/17/18 [place] [address] [place], [place] 9223136 [facility] 04/06/22 Toni Duran APRN.BRICK OR BLOCK MAKER [address] [place], [place] 339022 Acting Teacher Family Medicine 11/12/24 Della Alicia APRN.BRICK OR BLOCK MAKER [address] [place], [place] 855472 Acting Teacher Family Medicine 11/12/24 Android Developer Relationship Specialty Start Date End Date Samm Kc DO [address] [place] [address] PCP - General Family Medicine 04/12/22 [place] [address] [place], [place] 3298636 Spine Health 05/17/18 [place] [address] [place], [place] 2874936 [facility] 04/06/22 Toni Duran APRN.BRICK OR BLOCK MAKER [address] [place] [address] Acting Teacher Family Medicine 11/12/24 Della Alicia, SECURITIES BROKER.BRICK OR BLOCK MAKER [address] [place] [address] Acting Teacher Family Medicine 11/12/24 Android Developer Relationship Specialty Start Date End Date Samm Kc DO [address] [place] [address] PCP - General Family Medicine 04/12/22 [place] [address] [place] [address] Spine Health 05/17/18 [place] [address] [place], [place] 4815036 [facility] 04/06/22 Toni Duran APRN.BRICK OR BLOCK MAKER [address] [place], [place] 158332 Acting Teacher Family Medicine 11/12/24 Della Alicia, SECURITIES BROKER.BRICK OR BLOCK MAKER [address] [place], [place] 641092 [facility] 11/12/24 Android Developer Relationship Specialty Start Date End Date Samm Kc DO [address] [place] [address] PCP - General Family Medicine 04/12/22 [place] [address] [place], [place] 9969336 Spine Health 05/17/18 [place] [address] [place], [place] 5268136 [facility] 04/06/22 Toni Duran SECURITIES BROKER.BRICK OR BLOCK MAKER [address] [place], [place] 277632 [facility] Family Medicine 11/12/24 Della Alicia, SECURITIES BROKER.BRICK OR BLOCK MAKER [address] [place], [place] 821712 [facility] 11/12/24 Android Developer Relationship Specialty Start Date End Date Samm Kc DO [address] [place], [place] 279292 PCP - General Family Medicine 04/12/22 [place] [address] [place] [address] Spine Health 05/17/18 [place] [address] [place] [address] [facility] 04/06/22 Toni Duran APRN.BRICK OR BLOCK MAKER [address] [place], [place] 223822 Acting Teacher Family Medicine 11/12/24 Della Alicia APRN.BRICK OR BLOCK MAKER [address] [place] [address] Acting Teacher Family Medicine 11/12/24 Android Developer Relationship Specialty Start Date End Date Samm Kc DO [address] [place] [address] PCP - General Family Medicine 04/12/22 [place] [address] [place] 5066236 [facility] 05/17/18 [place] [address] [place] [address] [facility] 04/06/22 Toni Duran APRN.BRICK OR BLOCK MAKER [address] [place], [place] 120692 Acting Teacher Family Medicine 11/12/24 Della Alicia SECURITIES BROKER.BRICK OR BLOCK MAKER [address] [place], [place] 755902 Acting Teacher Family Medicine 11/12/24 Android Developer Relationship Specialty Start Date End Date Samm Kc DO [address] [place], [place] 769722 PCP - General Family Medicine 04/12/22 [place] [address] [place] [address] Spine Health 05/17/18 [place] [address] [place], [place] 6511836 [facility] 04/06/22 Toni Duran APRN.BRICK OR BLOCK MAKER [address] [place], [place] 336542 Acting Teacher Family Medicine 11/12/24 Della Alicia APRN.BRICK OR BLOCK MAKER [address] [place], [place] 323582 Acting Teacher Family Medicine 11/12/24 Samm Kc DO [address] [place], [place] 493982 Home Care Provider Family Medicine 01/08/25 Android Developer Relationship Specialty Start Date End Date Samm Kc DO [address] [place], [place] 118892 PCP - General Family Medicine 04/12/22 [place] [address] [place], [place] 1406936 Spine Health 05/17/18 [place] [address] [place] [address] [facility] 04/06/22 Toni Duran SECURITIES BROKER.BRICK OR BLOCK MAKER [address] [place] [address] Acting Teacher Family Medicine 11/12/24 Della Alicia, SECURITIES BROKER.BRICK OR BLOCK MAKER [address] [place], [place] 233092 Acting Teacher Family Medicine 11/12/24 Samm Kc DO [address] [place], [place] 237152 Home Care Provider Family Medicine 01/08/25 Android Developer Relationship Specialty Start Date End Date Samm Kc DO [address] [place], [place] 888242 PCP - General Family Medicine 04/12/22 [place] [address] [place], [place] 1901636 Spine Health 05/17/18 [place] [address] [place], [place] 9158536 [facility] 04/06/22 Toni Duran APRN.BRICK OR BLOCK MAKER [address] [place] [address] Acting Teacher Family Medicine 11/12/24 Della Alicia, SECURITIES BROKER.BRICK OR BLOCK MAKER [address] [place], [place] 190432 Acting Teacher Family Medicine 11/12/24 Samm Kc DO [address] [place], [place] 989562 Home Care Provider Family Medicine 01/08/25 Amy Angeles, SECURITIES BROKER.BRICK OR BLOCK MAKER [address] [place], [place] [phone] Referring Hematology/Oncology 01/12/25 Android Developer Relationship Specialty Start Date End Date Yamini SammDO maira [address] [place], [place] 11827212 PCP - General Family Medicine 04/12/22 [place] [address] [place], [place] 8482936 Spine Health 05/17/18 [place] [address] [place], [place] 0797236 [facility] 04/06/22 Toni Duran APRN.BRICK OR BLOCK MAKER [address] [place], [place] [phone] Acting Teacher Family Medicine 11/12/24 Della Alicia, SECURITIES BROKER.BRICK OR BLOCK MAKER [address] [place], [place] [phone] Acting Teacher Family Medicine 11/12/24 Yamini SammDO [address] [place], [place] 57490212 Home Care Provider Family Medicine 01/08/25 Amy Angeles, SECURITIES BROKER.BRICK OR BLOCK MAKER [address] [place] [address] [phone] Referring Hematology/Oncology 01/12/25October, Taty Gomez RN [address] [place], [place] 5973831 Primary Care Peritoneal Dialysis Registered Nurse Unspecified 01/13/25 Android Developer Relationship Specialty Start Date End Date Samm KcDO [address] [place], [place] 57719212 PCP - General Family Medicine 04/12/22 [place] [address] [place], [place] 0178336 Spine Health 05/17/18 [place] [address] [place], [place] 2318136 [facility] 04/06/22 Toni Duran, SECURITIES BROKER.BRICK OR BLOCK MAKER [address] [place], [place] [phone] Acting Teacher Family Medicine 11/12/24 Della Alicia, SECURITIES BROKER.BRICK OR BLOCK MAKER [address] [place], [place] [phone] Acting Teacher Family Medicine 11/12/24 Yamini SammDO [address] [place], [place] 759442 Home Care Provider Family Medicine 01/08/25 Amy Angeles, SECURITIES BROKER.BRICK OR BLOCK MAKER [address] [place] [address] Referring Hematology/Oncology 01/12/25October, Taty Gomez RN [address] [place] [address] Primary Care Peritoneal Dialysis Registered Nurse Unspecified 01/13/25 Android Developer Relationship Specialty Start Date End Date Samm KcDO [address] [place], [place] 08285212 PCP - General Family Medicine 04/12/22 [place] [address] [place], [place] 6289136 Spine Health 05/17/18 [place] [address] [place], [place] 1207936 [facility] 04/06/22 Toni Duran, SECURITIES BROKER.BRICK OR BLOCK MAKER [address] [place], [place] 829882 Acting Teacher Family Medicine 11/12/24 Samm Kc DO [address] [place], [place] 696092 Home Care Provider Family Medicine 01/08/25 Amy Angeles, SECURITIES BROKER.BRICK OR BLOCK MAKER [address] [place], [place] 1246695 Referring Hematology/Oncology 01/12/25 Daphne Mcdermott, [place] Specialty Woodworking Belt Sander Hematology/Oncology 01/20/25 Della Alicia, SECURITIES BROKER.BRICK OR BLOCK MAKER [address] [place], [place] 407602 Acting Teacher Family Medicine 01/21/25 Vy Levy, car rental service attendant Peritoneal Dialysis Registered Nurse 01/21/25 Android Developer Relationship Specialty Start Date End Date Samm Kc DO [address] [place], [place] 51645212 PCP - General Family Medicine 04/12/22 [place] [address] [place], [place] 2599836 Spine Health 05/17/18 [place] [address] [place], [place] 9107936 [facility] 04/06/22 Toni Duran, SECURITIES BROKER.BRICK OR BLOCK MAKER [address] [place], [place] 502962 Acting Teacher Family Medicine 11/12/24 Samm Kc DO [address] [place], [place] 881472 Home Care Provider Family Medicine 01/08/25 Amy Angeles, SECURITIES BROKER.BRICK OR BLOCK MAKER [address] [place] [address] Referring Hematology/Oncology 01/12/25 Daphne Mcdermott, [place] Specialty Woodworking Belt Sander Hematology/Oncology 01/20/25 Della Alicia, SECURITIES BROKER.BRICK OR BLOCK MAKER [address] [place] [address] Acting Teacher Family Medicine 01/21/25 Vy Levy, car rental service attendant Peritoneal Dialysis Registered Nurse 01/21/25 Android Developer Relationship Specialty Start Date End Date Samm Kc DO [address] [place] [address] PCP - General Family Medicine 04/12/22 [place] [address] [place] [address] Spine Health 05/17/18 [place] [address] [place] 2066936 [facility] 04/06/22 Toni Duran, SECURITIES BROKER.BRICK OR BLOCK MAKER [address] [place], [place] 324802 Acting Teacher Family Medicine 11/12/24 Della Alicia, SECURITIES BROKER.BRICK OR BLOCK MAKER [address] [place], [place] 309492 Acting Teacher Family Medicine 11/12/24 01/20/25 Samm Kc DO [address] [place], [place] 151032 Home Care Provider Family Medicine 01/08/25 Amy Angeles, SECURITIES BROKER.BRICK OR BLOCK MAKER [address] [place], [place] [phone] Referring Hematology/Oncology 01/12/25October, Taty Gomez RN [address] [place] [address] Primary Care Peritoneal Dialysis Registered Nurse Unspecified 01/13/25 01/21/25 Daphne Mcdermott, [place] Specialty Woodworking Belt Sander Hematology/Oncology 01/20/25 Della Alicia, SECURITIES BROKER.BRICK OR BLOCK MAKER [address] [place], [place] 669762 Acting Teacher Family Medicine 01/21/25 Vy Levy, car rental service attendant Peritoneal Dialysis Registered Nurse 01/21/25 Android Developer Relationship Specialty Start Date End Date Samm Kc DO [address] [place], [place] 40222212 PCP - General Family Medicine 04/12/22 [place] [address] [place] [address] Spine Health 05/17/18 [place] [address] [place] [address] [facility] 04/06/22 Toni Duran, SECURITIES BROKER.BRICK OR BLOCK MAKER [address] [place], [place] 494352 Acting Teacher Family Medicine 11/12/24 Samm Kc DO [address] [place], [place] 780322 Home Care Provider Family Medicine 01/08/25 Amy Angeles SECURITIES BROKER.BRICK OR BLOCK MAKER [address] [place] [address] [phone] Referring Hematology/Oncology 01/12/25 Daphne Mcdermott, [place] Specialty Woodworking Belt Sander Hematology/Oncology 01/20/25 Della Alicia, SECURITIES BROKER.BRICK OR BLOCK MAKER [address] [place] [address] Acting Teacher Family Medicine 01/21/25 Vy Levy, car rental service attendant Peritoneal Dialysis Registered Nurse 01/21/25 Android Developer Relationship Specialty Start Date End Date Samm Kc DO [address] [place], [place] 483362 PCP - General Family Medicine 04/12/22 [place] [address] [place], [place] 5369836 Spine Health 05/17/18 [place] [address] [place], [place] 2430236 [facility] Cardiology 04/06/22 Toni Duran APRN.BRICK OR BLOCK MAKER [address] [place], [place] 323322 Acting Teacher Family Medicine 11/12/24 Yamini SammDO [address] [place], [place] 667302 Home Care Provider Family Medicine 01/08/25 Amy Angeles APRN.BRICK OR BLOCK MAKER [address] [place] [address] Referring Hematology/Oncology 01/12/25 Daphne Mcdermott RN Specialty Woodworking Belt Sander Hematology/Oncology 01/20/25 Della Alicia, SECURITIES BROKER.BRICK OR BLOCK MAKER [address] [place], [place] 388442 Acting Teacher Family Medicine 01/21/25 Android Developer Relationship Specialty Start Date End Date Samm KcDO [address] [place] [address] PCP - General Family Medicine 04/12/22 [place] [address] [place], [place] 1624936 Spine Health 05/17/18 [place] [address] [place], [place] 9245736 Ski Topper Cardiology 04/06/22 Toni Duran APRN.BRICK OR BLOCK MAKER [address] [place] [id number] Acting Teacher Family Medicine 11/12/24 Della Alicia, TU.BRICK OR BLOCK MAKER [address] [place], [place] 204682 Acting Teacher Family Medicine 11/12/24 01/20/25 Samm Kc DO [address] [place], [place] 257862 Home Care Provider Family Medicine 01/08/25 Amy Angeles APRN.BRICK OR BLOCK MAKER [address] [place], [place] [phone] Referring Hematology/Oncology 01/12/25October, Taty Gomez RN [address] [place] [address] Primary Care Peritoneal Dialysis Registered Nurse Unspecified 01/13/25 01/21/25 Daphne Mcdermott RN Specialty Woodworking Belt Sander Hematology/Oncology 01/20/25 Della Alicia, SECURITIES BROKER.BRICK OR BLOCK MAKER [address] [place], [place] 570442 Acting Teacher Family Medicine 01/21/25 Vy Levy, car rental service attendant Peritoneal Dialysis Registered Nurse 01/21/25 01/25/25 Android Developer Relationship Specialty Start Date End Date Samm Kc DO [address] [place], [place] [id number] PCP - General Family Medicine 04/12/22 [place] [address] [place] [id number] Spine Health 05/17/18 [place] [address] [place], [place] [phone] Ski Topper Cardiology 04/06/22 Toni Duran APRN.BRICK OR BLOCK MAKER [address] [place], [place] 256792 Acting Teacher Family Medicine 11/12/24 Yamini SammDO [address] [place], [place] 304482 Home Care Provider Family Medicine 01/08/25 Amy Angeles APRN.BRICK OR BLOCK MAKER [address] [place] [address] [phone] Referring Hematology/Oncology 01/12/25 Daphne Mcdermott RN Specialty Woodworking Belt Sander Hematology/Oncology 01/20/25 Della Alicia SECURITIES BROKER.BRICK OR BLOCK MAKER [address] [place], [place] 297442 Acting Teacher Family [facility] 01/21/25 Android Developer Relationship Specialty Start Date End Date Samm KcDO [address] [place] [address] PCP - General Family Medicine 04/12/22 [place] [address] [place], [place] [id number] Spine Health 05/17/18 [place] [address] [place], [place] [phone] Ski Topper Cardiology 04/06/22 Toni Duran APRN.BRICK OR BLOCK MAKER [address] [place], [place] 052862 Acting Teacher Family Medicine 11/12/24 Samm Kc DO [address] [place], [place] 275352 Home Care Provider Family Medicine 01/08/25 Amy Angeles, SECURITIES BROKER.BRICK OR BLOCK MAKER [address] [place] [address] 1918195 Referring Hematology/Oncology 01/12/25 Daphne Mcdermott RN Specialty Woodworking Belt Sander Hematology/Oncology 01/20/25 Della Alicia, SECURITIES BROKER.BRICK OR BLOCK MAKER [address] [place], [place] 558992 Acting Teacher Family Medicine 01/21/25 Android Developer Relationship Specialty Start Date End Date Samm Kc DO [address] [place], [place] 229632 PCP - General Family Medicine 04/12/22 [place] [address] [place], [place] 2207936 Spine Health 05/17/18 [place] [address] [place], [place] [phone] Ski Topper Cardiology 04/06/22 Toni Duran, SECURITIES BROKER.BRICK OR BLOCK MAKER [address] [place], [place] 530612 Acting Teacher Family Medicine 11/12/24 Samm Kc DO [address] [place], [place] 548632 Home Care Provider Family Medicine 01/08/25 Amy Angeles APRN.BRICK OR BLOCK MAKER [address] [place] [address] [phone] Referring Hematology/Oncology 01/12/25 Daphne Mcdermott RN Specialty Woodworking Belt Sander Hematology/Oncology 01/20/25 Della Alicia APRN.BRICK OR BLOCK MAKER [address] [place], [place] 288902 Acting Teacher Family Medicine 01/21/25 Android Developer Relationship Specialty Start Date End Date Samm Kc DO [address] [place] [address] PCP - General Family Medicine 04/12/22 [place] [address] [place], [place] 3103036 Spine Health 05/17/18 [place] [address] [place], [place] 9006936 Ski Topper Cardiology 04/06/22 Toni Duran APRN.BRICK OR BLOCK MAKER [address] [place], [place] 717802 Acting Teacher Family Medicine 11/12/24 Samm Kc DO [address] [place], [place] 753652 Home Care Provider Family Medicine 01/08/25 Amy Agneles APRN.BRICK OR BLOCK MAKER [address] [place] [phone] Referring Hematology/Oncology 01/12/25 Daphne Mcdermott RN Specialty Woodworking Belt Sander Hematology/Oncology 01/20/25 Della Alicia APRN.BRICK OR BLOCK MAKER [address] [place], [place] 630312 Acting Teacher Family Medicine 01/21/25 Android Developer Relationship Specialty Start Date End Date Samm Kc DO [address] [place], [place] [id number] PCP - General Family Medicine 04/12/22 [place] [address] [place], [place] [phone] Spine Health 05/17/18 [place] [address] [place], [place] [phone] Ski Topper Cardiology 04/06/22 Toni Duran APRN.BRICK OR BLOCK MAKER [address] [place], [place] 348232 Acting Teacher Family Medicine 11/12/24 Samm Kc DO [address] [place], [place] [phone] Home Care Provider Family Medicine 01/08/25 Amy Angeles APRN.BRICK OR BLOCK MAKER [address] [place] [address] Referring Hematology/Oncology 01/12/25 Daphne Mcdermott RN Specialty Woodworking Belt Sander Hematology/Oncology 01/20/25 Della Alicia, SECURITIES BROKER.BRICK OR BLOCK MAKER [address] [place], [place] 697192 Acting Teacher Family Medicine 01/21/25 [place] [address] [place], [place] [phone] Hematology/Oncology 02/06/25 Nga Deras MA Network Navigator Post Acute Care 02/10/25 Android Developer Relationship Specialty Start Date End Date Samm Kc DO [address] [place] [address] PCP - General Family Medicine 04/12/22 [place] [address] [place], [place] [id number] Spine Health 05/17/18 [place] [address] [place], [place] 0940036 Ski Topper Cardiology 04/06/22 Toni Duran, SECURITIES BROKER.BRICK OR BLOCK MAKER [address] [place], [place] 143732 Acting Teacher Family Medicine 11/12/24 Samm Kc DO [address] [place], [place] 152702 Home Care Provider Family Medicine 01/08/25 Amy Angeles, SECURITIES BROKER.BRICK OR BLOCK MAKER [address] [place] [address] Referring Hematology/Oncology 01/12/25 Daphne Mcdermott, RN Specialty Woodworking Belt Sander Hematology/Oncology 01/20/25 Della Alicia, SECURITIES BROKER.BRICK OR BLOCK MAKER [address] [place], [place] 418272 Acting Teacher Family Medicine 01/21/25 [place] [address] [place], [place] [phone] Hematology/Oncology 02/06/25 Nga Deras MA Network Navigator Post Acute Care 02/10/25 Android Developer Relationship Specialty Start Date End Date Samm Kc DO [address] [place], [place] 453072 PCP - General Family Medicine 04/12/22 [place] [address] [place], [place] 4319236 Spine Health 05/17/18 [place] [address] [place], [place] 6346136 Ski Topper Cardiology 04/06/22 Toni Duran APRN.BRICK OR BLOCK MAKER [address] [place], [place] 373672 Acting Teacher Family Medicine 11/12/24 Samm Kc DO [address] [place], [place] 790132 Home Care Provider Family Medicine 01/08/25 Amy Angeles, SECURITIES BROKER.BRICK OR BLOCK MAKER [address] [place] [address] Referring Hematology/Oncology 01/12/25 Daphne Mcdermott, [place] Specialty Woodworking Belt Sander Hematology/Oncology 01/20/25 Della Alicia, SECURITIES BROKER.BRICK OR BLOCK MAKER [address] [place], [place] 943072 Acting Teacher Family Medicine 01/21/25 [place] [address] [place], [place] [phone] Hematology/Oncology 02/06/25 Nga Deras MA Network Navigator Post Acute Care 02/10/25 Android Developer Relationship Specialty Start Date End Date Samm Kc DO [address] [place], [place] 722002 PCP - General Family Medicine 04/12/22 [place] [address] [place], [place] 2670536 Spine Health 05/17/18 [place] [address] [place], [place] [phone] Ski Topper Cardiology 04/06/22 Toni Duran APRN.BRICK OR BLOCK MAKER [address] [place], [place] [phone] Acting Teacher Family Medicine 11/12/24 Samm Kc DO [address] [place], [place] [phone] Home Care Provider Family Medicine 01/08/25 Amy Angeles, SECURITIES BROKER.BRICK OR BLOCK MAKER [address] [place] [address] Referring Hematology/Oncology 01/12/25 Daphne Mcdermott RN Specialty Woodworking Belt Sander Hematology/Oncology 01/20/25 Della Alicia, SECURITIES BROKER.BRICK OR BLOCK MAKER [address] [place], [place] 867982 Acting Teacher Family Medicine 01/21/25 [place] [address] [place], [place] [phone] Hematology/Oncology 02/06/25 Nga Deras MA Network Navigator Post Acute Care 02/10/25 Android Developer Relationship Specialty Start Date End Date Samm Kc DO [address] [place], [place] 858382 PCP - General Family Medicine 04/12/22 [place] [address] [place], [place] 7799936 Spine Health 05/17/18 [place] [address] [place], [place] 7277536 Ski Topper Cardiology 04/06/22 Toni Duran, SECURITIES BROKER.BRICK OR BLOCK MAKER [address] [place], [place] 301622 Acting Teacher Family Medicine 11/12/24 Samm Kc DO [address] [place], [place] 325222 Home Care Provider Family Medicine 01/08/25 Amy Angeles SECURITIES BROKER.BRICK OR BLOCK MAKER [address] [place] [address] [phone] Referring Hematology/Oncology 01/12/25 Daphne Mcdermott, [place] Specialty Woodworking Belt Sander Hematology/Oncology 01/20/25 Della Alicia, SECURITIES BROKER.BRICK OR BLOCK MAKER [address] [place], [place] [phone] Acting Teacher Family Medicine 01/21/25 [place] [address] [place], [place] [phone] Hematology/Oncology 02/06/25 Nga Deras MA Network Navigator Post Acute Care 02/10/25 Android Developer Relationship Specialty Start Date End Date Samm Kc DO [address] [place], [place] 377902 PCP - General Family Medicine 04/12/22 [place] [address] [place], [place] 7410136 Spine Health 05/17/18 [place] [address] [place], [place] [phone] Ski Topper Cardiology 04/06/22 Toni Duran APRN.BRICK OR BLOCK MAKER [address] [place], [place] [phone] Acting Teacher Family Medicine 11/12/24 Samm Kc DO [address] [place], [place] 400122 Home Care Provider Family Medicine 01/08/25 Amy Angeles APRN.BRICK OR BLOCK MAKER [address] [place] [address] [phone] Referring Hematology/Oncology 01/12/25 Daphne Mcdermott RN Specialty Woodworking Belt Sander Hematology/Oncology 01/20/25 Della Alicia, SECURITIES BROKER.BRICK OR BLOCK MAKER [address] [place], [place] 195902 Acting Teacher Family Medicine 01/21/25 [place] [address] [place], [place] [phone] Hematology/Oncology 02/06/25 Nga Deras MA Network Navigator Post Acute Care 02/10/25 Android Developer Relationship Specialty Start Date End Date Samm Kc DO [address] [place], [place] 904472 PCP - General Family Medicine 04/12/22 [place] [address] [place], [place] 9147336 Spine Health 05/17/18 [place] [address] [place], [place] 6166336 Ski Topper Cardiology 04/06/22 Roger, Toni, SECURITIES BROKER.BRICK OR BLOCK MAKER [address] [place], [place] 107242 Acting Teacher Family Medicine 11/12/24 Samm Kc DO [address] [place], [place] 235442 Home Care Provider Family Medicine 01/08/25 Amy Angeles, SECURITIES BROKER.BRICK OR BLOCK MAKER [address] [place], [place] [phone] Referring Hematology/Oncology 01/12/25 Daphne Mcdermott RN Specialty Woodworking Belt Sander Hematology/Oncology 01/20/25 Della Alicia, SECURITIES BROKER.BRICK OR BLOCK MAKER [address] [place], [place] 454322 Acting Teacher Family Medicine 01/21/25 [place] [address] [place], [place] [phone] Hematology/Oncology 02/06/25 Nga Deras MA Network Navigator Post Acute Care 02/10/25 Android Developer Relationship Specialty Start Date End Date Samm Kc DO [address] [place], [place] 506882 PCP - General Family Medicine 04/12/22 [place] [address] [place], [place] 4848236 Spine Health 05/17/18 [place] [address] [place], [place] 8381836 Ski Topper Cardiology 04/06/22 Toni Duran, SECURITIES BROKER.BRICK OR BLOCK MAKER [address] [place], [place] 983302 Acting Teacher Family Medicine 11/12/24 Samm Kc DO [address] [place], [place] 055322 Home Care Provider Family Medicine 01/08/25 Amy Angeles, SECURITIES BROKER.BRICK OR BLOCK MAKER [address] [place] [address] Referring Hematology/Oncology 01/12/25 Daphne Mcdermott RN Specialty Woodworking Belt Sander Hematology/Oncology 01/20/25 Della Alicia, SECURITIES BROKER.BRICK OR BLOCK MAKER [address] [place], [place] 633032 Acting Teacher Family Medicine 01/21/25 [place] [address] [place], [place] 2443536 Hematology/Oncology 02/06/25 Nga Deras MA Network Navigator Post Acute Care 02/10/25 02/17/25 Android Developer Relationship Specialty Start Date End Date Samm Kc DO [address] [place], [place] 254332 PCP - General Family Medicine 04/12/22 [place] [address] [place], [place] 1811636 Spine Health 05/17/18 [place] [address] [place], [place] 3496936 Ski Topper Cardiology 04/06/22 Toni Duran, SECURITIES BROKER.BRICK OR BLOCK MAKER [address] [place], [place] 043572 Acting Teacher Family Medicine 11/12/24 Samm Kc DO [address] [place], [place] 877432 Home Care Provider Family Medicine 01/08/25 Amy Angeles, SECURITIES BROKER.BRICK OR BLOCK MAKER [address] [place] [address] [phone] Referring Hematology/Oncology 01/12/25 Daphne Mcdermott RN Specialty Woodworking Belt Sander Hematology/Oncology 01/20/25 Della Alicia, SECURITIES BROKER.BRICK OR BLOCK MAKER [address] [place], [place] 171032 Acting Teacher Family Medicine 01/21/25 [place] [address] [place], [place] 1130536 Hematology/Oncology 02/06/25 Nga Deras MA Network Navigator Post Acute Care 02/10/25 02/17/25 Android Developer Relationship Specialty Start Date End Date Samm Kc DO [address] [place], [place] 670192 PCP - General Family Medicine 04/12/22 [place] [address] [place], [place] 6524836 Spine Health 05/17/18 [place] [address] [place], [place] 9450336 Ski Topper Cardiology 04/06/22 Toni Duran, SECURITIES BROKER.BRICK OR BLOCK MAKER [address] [place], [place] 877832 Acting Teacher Family Medicine 11/12/24 Samm Kc DO [address] [place], [place] 509952 Home Care Provider Family Medicine 01/08/25 Amy Angeles, SECURITIES BROKER.BRICK OR BLOCK MAKER [address] [place] [address] [phone] Referring Hematology/Oncology 01/12/25 Daphne Mcdermott, [place] Specialty Woodworking Belt Sander Hematology/Oncology 01/20/25 Della Alicia, SECURITIES BROKER.BRICK OR BLOCK MAKER [address] [place], [place] 003592 Acting Teacher Family Medicine 01/21/25 [place] [address] [place], [place] 6302636 Hematology/Oncology 02/06/25 Beth Cuenca LISW 565[address] [facility]/ST0 [place], [place] 7918836 K9 Handler Oncology 02/18/25 Android Developer Relationship Specialty Start Date End Date Samm Kc DO [address] [place], [place] 129912 PCP - General Family Medicine 04/12/22 [place] [address] [place], [place] 0437036 Spine Health 05/17/18 [place] [address] [place], [place] 8809836 Ski Topper Cardiology 04/06/22 Toni Duran SECURITIES BROKER.BRICK OR BLOCK MAKER [facility] [place] [address] Acting Teacher Family Medicine 11/12/24 Samm Kc DO [facility]4 [place] [id number] Home Care Provider Family Medicine 01/08/25 Amy Angeles, SECURITIES BROKER.BRICK OR BLOCK MAKER [address] [place], [place] 1246695 Referring Hematology/Oncology 01/12/25 Dapnhe Mcdermott, [place] Specialty Woodworking Belt Sander Hematology/Oncology 01/20/25 Della Alicia, SECURITIES BROKER.BRICK OR BLOCK MAKER [address] [place], [place] 306202 Acting Teacher Family Medicine 01/21/25 [place] [address] [place], [place] 0428936 Hematology/Oncology 02/06/25 Beth Cuenca LISW [address] [place] [address]/ST[address] [place] [address] K9 Handler Oncology 02/18/25 Android Developer Relationship Specialty Start Date End Date Samm KcDO [address] [place], [place] 875302 PCP - General Family Medicine 04/12/22 [place] [address] [place], [place] 2963136 Spine Health 05/17/18 [place] [address] [place] [address] Ski Topper Cardiology 04/06/22 Toni Duran APRN.BRICK OR BLOCK MAKER [address] [place], [place] 972852 Acting Teacher Family Medicine 11/12/24 Yamini SammDO [facility]4 [place], [place] 120482 Home Care Provider Family Medicine 01/08/25 Amy Angeles, SECURITIES BROKER.BRICK OR BLOCK MAKER [address] [place] [address] Referring Hematology/Oncology 01/12/25 Daphne Mcdermott, RN Specialty Woodworking Belt Sander Hematology/Oncology 01/20/25 Della Alicia, SECURITIES BROKER.BRICK OR BLOCK MAKER [address] [place], [place] 949092 Acting Teacher Family Medicine 01/21/25 [place] [address] [place] [address] Hematology/Oncology 02/06/25 Beth Cuenca LISW [address]88[address] [facility]/ST0 [place] [address] K9 Handler Oncology 02/18/25 Android Developer Relationship Specialty Start Date End Date Samm Kc DO [address] [place], [place] 525262 PCP - General Family Medicine 04/12/22 [place] [address] [place] [address] Spine Health 05/17/18 [place] [address] [place] [address] Ski Topper Cardiology 04/06/22 Toni Duran APRN.BRICK OR BLOCK MAKER [address] [place] [address] Acting Teacher Family Medicine 11/12/24 Samm Kc DO [address] [place], [place] 573802 Home Care Provider Family Medicine 01/08/25 Amy Angeles, SECURITIES BROKER.BRICK OR BLOCK MAKER [address] [place] [address] Referring Hematology/Oncology 01/12/25 Daphne Mcderomtt RN Specialty Woodworking Belt Sander Hematology/Oncology 01/20/25 Della Alicia, SECURITIES BROKER.BRICK OR BLOCK MAKER [address] [place], [place] 790142 Acting Teacher Family Medicine 01/21/25 [place] [address] [place] [address] Hematology/Oncology 02/06/25 Beth Cuenca LISW 98[address] [facility]/[address] [address] K9 Handler Oncology 02/18/25 Android Developer Relationship Specialty Start Date End Date Samm Kc DO [address] [place] [address] PCP - General Family Medicine 04/12/22 [place] [address] [place] [address] Spine Health 05/17/18 [place] [address] [place], [place] 6824336 Ski Topper Cardiology 04/06/22 Toni Duran APRN.BRICK OR BLOCK MAKER [address] [place], [place] 869182 Acting Teacher Family Medicine 11/12/24 Samm Kc DO [address] [place], [place] 125472 Home Care Provider Family Medicine 01/08/25 Amy Angeles APRN.BRICK OR BLOCK MAKER [address] [place] [address] Referring Hematology/Oncology 01/12/25 Daphne Mcdermott, RN Specialty Woodworking Belt Sander Hematology/Oncology 01/20/25 Della Alicia, SECURITIES BROKER.BRICK OR BLOCK MAKER [address] [place], [place] 543282 Acting Teacher Family Medicine 01/21/25 [place] [address] [place], [place] 3184836 Hematology/Oncology 02/06/25 Beth Cuenca LISW [address]98[address] [facility]/[address] [phone] K9 Handler Oncology 02/18/25 Android Developer Relationship Specialty Start Date End Date Samm Kc DO [address] [place], [place] 931662 PCP - General Family Medicine 04/12/22 [place] [address] [place], [place] 5670036 Spine Health 05/17/18 [place] [address] [place], [place] 3454136 Ski Topper Cardiology 04/06/22 Toni Duran APRN.BRICK OR BLOCK MAKER [address] [place], [place] 274612 Acting Teacher Family Medicine 11/12/24 Samm Kc DO [address] [place], [place] 324962 Home Care Provider Family Medicine 01/08/25 Amy Angeles, SECURITIES BROKER.BRICK OR BLOCK MAKER [address] [place] [address] Referring Hematology/Oncology 01/12/25 Daphne Mcdermott RN Specialty Woodworking Belt Sander Hematology/Oncology 01/20/25 Della Alicia, SECURITIES BROKER.BRICK OR BLOCK MAKER [address] [place], [place] 468452 Acting Teacher Family Medicine 01/21/25 [place] [address] [place], [place] [phone] Hematology/Oncology 02/06/25 Beth Cuenca LISW [address]87[address] [facility]/STB10 [place], [place] [phone] K9 Handler Oncology 02/18/25 (unrecognized sect ion and content) No Status Records FoundNo Status Records FoundNo Status Records FoundNo Status Records FoundNo Status Records FoundNo Status Records FoundNo Status Records Found INFORMATION SOURCE (unrecogn ized section and content) DATE CREATED AUTHOR 05/05/2022 [facility] DATE CREATED AUTHOR AUTHOR'S ORGANIZ ATION 12/30/2024 [facility] DATE CREATED AUTHOR AUTHOR'S ORGANIZ ATION 02/09/2025 [facility] DATE CREATED AUTHOR AUTHOR'S ORGANIZ ATION 02/12/2025 [facility] DATE CREATED AUTHOR AUTHOR'S ORGANIZ ATION 02/13/2025 [facility] DATE CREATED AUTHOR AUTHOR'S ORGANIZ ATION 04/22/2025 [facility] DATE CREATED AUTHOR AUTHOR'S ORGANIZ ATION 04/23/2025 [facility] PRN Active and Recently Administ ered Medications (unrecognized section and content) Medication Order 01/17/2025 01/18/2025 01/19/2025 lidocaine (PF) 10 mg/mL (1 %) injection (XYLOCAINE) (CANCELED) SUBCUTANEOUS, X (OR/PROCEDURE) PRN, Starting on Sun01/19/25 at 1335, Until Sun01/19/25 at 1402, Intraprocedure 1335 (Given - Provid er: Carson Barr MD - Comment: Left supraclavicular region) FOR RECORDS PERTAINING TO PATIENTS WHO ARE OR HAVE BEEN ENROLLED IN A CHEMICAL DEPENDENCY/SUBSTANCEABUSE PROGRAM, SOME INFORMATION MAY BE OMITTED. This clinical summary was aggregated from multiple sources. Caution should be exercised in using it in the provision of clinical care. This summary normalizes information from multiple sources, and as a consequence, information in this document may materially change the coding, format and clinical context of patient data. In addition, data may be omitted in some cases. CLINICAL DECISIONS SHOULD BE BASED ON THE PRIMARY CLINICAL RECORDS. [employer] provides no warranty or guarantee of the accuracy or completeness of information in this document.
[2025-05-21 09:32] LABS: Anion Gap 10 (5-15); BUN 29 mg/dL (4-19); BUN/Creat Ratio 21.8 RATIO (10-20); Calcium,Total 8.4 mg/dL (7.6-11.0); Carbon Dioxide 28.1 mmol/L (21.0-32.0); Chloride 107 mmol/L (98-108); Glucose 163 mg/dL (70-99); Potassium 3.4 mmol/L (3.3-5.1)
== END ==
LOC: OLS.SANC 05:00
DX: N17.9 Acute kidney failure, unspecified (principal)
CPT/HCPCS: 36415; 80048

== ENCOUNTER → 2025-05-25 05:00 | Outpatient (REF) | payer MEDICARE, SELFPAY ==
--- OUTSIDE RECORDS SUMMARY | 2025-05-25 04:05 | XMS RPT_ITS | CCD ---
Author Organization [facility] Care Team Providers Care Manager Area Name Role Phone Luis Brooke DO Unavailable Duy LIM, [facility] Primary Care Provider Aron Pennington MD, [facility] Primary Care Provider Duy LIM, [facility] Primary Care Provider Luis Brooke DO Unavailable Duy LIM, [facility] Primary Care Provider Duy LIM, [facility] Primary Care Provider Priscilla Salas MD Unavailable [phone] [facility] Primary Care Provider [facility] Primary Care Unavailable ANNA, QARAB Emmanuelle Referring Unavailable Luis Brooke DO Unavailable Priscilla Salas MD Unavailable [phone] [facility] Primary Care Provider Priscilla Salas MD Unavailable [facility] Primary Care Provider Duy LIM, [facility] Primary Care Provider Toni Duran APRN.CNP Unavailable [phone] Della Alicia APRN.CNP Unavailable Scarlett Tan APRN.CNP Unavailable Toni Duran APRN.CNP Unavailable Ravin MAE.RHONDA Della N Unavailable MAY, MICHELLE Referring Unavailable [facility] DO, Samm Unavailable Bridgette BENCH ASSEMBLER BATTERY.INSTALLER [employer]OLDING [employer] TRIM, Amy Unavailable [phone] October RN, Taty Gomez Unavailable Baldemar PEPE, Daphne Unavailable Ravin BENCH ASSEMBLER BATTER[employer].INSTALLER [employer], Della N Unavailable Mildred PEPE, Vy Unavailable Unavailable Ravin BENCH ASSEMBLER BATTERY.INSTALLER [employer]ING [employer], Della N Unavailable October RN, Taty Goemz Unavailable Milderd PEPE, Vy Unavailable Unavailable Bshara, Beltran Unavailable Unavailable Bsannettea, Beltran Attending Unavailable Stan LIM, July Unavailable Nga Deras MA Unavailable [facility] Primary Care Unavailable DEANNE BUTTERFIELD MD Admitting Unavailable VIC GONZALEZ MD Consulting Unavailable [facility] Primary Care Unavailable KEVIN BRYAN MD Consulting Unavailable COLIN MANDEL MD Consulting Unavailable [facility] Primary Care Unavailable [facility] Primary Care Unavailable Nga Deras MA Unavailable Beth Rankin Unavailable [phone] [facility] Primary Care Unavailable JOSE CHAPARRO Admitting Unavailable NOEL JACKSON Attending Unavailable TERE PATEL Consulting Unavailab CARSON Hassan Admitting Unavailable CARSON BARR Attending Unavailable YAMINI, [facility] Primary Care Unavailable JULY PIERCE Referring Unavailable YAMINI, [facility] Primary Care Unavailable [employer] ALTMAN Attending Unavailable ALEXANDRIA JOAQUIN Referring Unavailable [facility] Primary Care Unavailable [facility] Primary Care Unavailable SENG NAVARRETE Admitting UnavailGAVINO Wharton Consulting Unavailable RAFFY WHYTE Attending Unavailable [facility] Primary Care Unavailable BLAINE PAT [...] Primary Care Unavailable YAMINI, SAMM Referring Unavailable [facility] Primary Care Unavailable RUDDY PIERCENORA Referring Unavailable [facility] Primary Care Unavailable CHAPARRORYK, LISE Referring Unavailable YUSRA BELTRAN Attending Unavailable [facility] Primary Care Unavailable LAVRYK, LISE Referring Unavailable LESLY BENDER Attending Unavailable [facility] Primary Care Unavailable [facility] Primary Care Unavailable JACKSONJEANETTEAR Referring Unavailable [facility] Attending Unavailable [facility], [facility] Primary Care Unavailable PRISCILLA SALAS Attending Unavailable [...] 01-18-2025 Blood-Glucose Meter,Continuous (FREESTYLE YESSENIA 3 READER) [facility] Indications: Type 2 diabetes mellitus without complication, with long-term current use of insulin (HCC) 1 each continuous. 1 each 01/18/2025 Suspended Start: 01-18-2025 Blood-Glucose Meter,Continuous (FREESTYLE YESSENIA 3 READER) [facility] Indications: Type 2 diabetes mellitus without complication, [...] 1 each once daily. 5 each 01/15/2025 Active Start: 01-14-2025 End: 01-15-2025 Blood-Glucose Sensor (FREEST YLE YESSENIA 3 PLUS SENSOR) lv Indications: Type 2 diabetes mellitus without complication, with long-term current use of insulin (HCC) 1 each once daily. 5 each 01/14/2025 01/15/2025 Discontinued cholecalciferol 0.025 mg oral capsule (20 sources) Vitamin D Start: 10-27-2021 End: 06-27-2025 take 1 capsule by mouth once daily Cholecalciferol, Vitamin D3, 25 mcg (1,000 unit) cap Take 1 capsule by mouth once daily. 30 capsule 5 12/29/2024 06/27/2025 Active Comment on above: Take 1,000 Units by mouth once daily. glipiZIDE er 2.5 mg 24 hr extended release oral tablet (20 sources) Sulfonylurea Start: 12-29-2024 End: 12-30-2024 take 1 tablet by mouth once daily glipiZIDE (GLUCOTROL XL) 2.5 mg 24 hr tablet Take 1 tablet by mouth once daily. 30 tablet 1 12/30/2024 Active Start: 04-04-2022 End: 01-08-2023 take 1 tablet by mouth once daily glipiZIDE (GLUCOTROL XL) 2.5 mg 24 hr tablet Indications: Type 2 diabetes mellitus with hyperglycemia, without long-term current use of insulin (HCC) Take 1 tablet by mouth once daily. 90 tablet 1 10/10/2022 Active Comment on above: Take 1 tablet by teodoro once daily. hydrocortisone 25 mg/ml topical cream (4 sources) Corticosteroid Start: hydrocortisone 2.5 % cream Apply 1 application to affected area two times a day. 28 g 02/19/2025 Active iv contrast (will be provided with radiology test) (1 source) Start: End: iv contrast (will be provided with radiology [...] in the MR contrast administration guidelines link. 1 Each 0 04/22/2022 04/23/2022 Active Comment on above: MRA Carotid WO/W Inj ect, intravenously, once for 1 dose. No IV [...] in the MR contrast administration guidelines link. losartan potassium 25 mg oral tablet (20 sources) Angiotensin 2 Receptor Jordan Start: 024 End: 025 take 1 tablet by mouth once daily losartan (COZAAR) 25 mg tablet Indications: Essential hypertension Take 1 tablet by mouth once daily. 90 tablet 3 12/29/2024 Active Start: 05-22-2023 End: 05-21-2024 take 1 tablet by mouth once daily losartan (COZAAR) 25 mg tablet Indications: Essential hypertension Take 1 tablet by mouth once daily. 90 tablet 3 05/22/2023 Active Start: 09-13-2021 End: 10-10-2023 take 0.5 tablet by mouth once daily losartan (COZAAR) 25 mg tablet Take 0.5 tablets by mouth once daily. 09/13/2021 10/10/2022 Discontinued Start: 08-17-2021 take 1 tablet by teodoro th once daily losartan (COZAAR) 25 mg tablet Take 1 tablet by mouth once daily. 0 08/17/2021 Active Comment on above: Take 1 tablet by teodoro th once daily. Take 0.5 tablets by mouth once daily. metFORMIN hydrochloride 500 mg oral tablet (20 sources) Biguanide Start: End: take 2 tablets by mouth once daily at breakfast metFORMIN (GLUCOPHAGE) 500 mg tablet Indications: Type 2 diabetes mellitus without complication, without long-term current use of insulin (HCC) Take 2 tablets by mouth daily with breakfast. 0 12/29/2024 12/29/2025 Active Start: 08-05-2024 End: 08-05-2025 take 1 tablet by mouth once daily at breakfast metFORMIN (GLUCOPHAGE) 500 mg tablet Indications: Type 2 diabetes mellitus without complication, without long-term current use of insulin (HCC) Take 1 tablet by mouth daily with breakfast. 0 08/05/2024 12/29/2024 Discontinued Start: 07-05-2023 End: 08-05-2024 take 2 tablets by mouth twice daily at mealtime metFORMIN ER (GLUCOPHAGE XR) 500 mg 24 hr tablet Indications: Type 2 diabetes mellitus without complication, without long-term current use of insulin (HCC) Take 2 tablets by mouth two times a day with meals. 360 tablet 1 08/01/2024 08/05/2024 Discontinued Start: 08-02-2022 End: 03-10-2023 take 2 tablets by mouth twice daily at mealtime metFORMIN ER (GLUCOPHAGE XR) 500 mg 24 hr tablet TAKE 2 TABLETS BY MOUTH TWICE DAILY WITH MEALS 120 tablet 3 02/08/2023 Active Start: 03-01-2022 End: 08-02-2022 take 1 tablet by mouth twice daily metFORMIN (GLUCOPHAGE) 500 mg tablet Take 1 tablet by mouth twice daily. 180 tablet 3 03/01/2022 08/02/2022 Discontinued Start: 11-17-2021 End: 02-15-2022 take 1 tablet by mouth twice daily metFORMIN (GLUCOPHAGE) 500 mg tablet Take 500 mg by mouth twice daily. 0 11/17/2021 02/15/2022 Discontinued Comment on above: Take 500 mg by mouth twice daily. Take 1 tablet by teodoro th twice daily. Take 2 tablets by mo ut twice daily with meals. TAKE 2 TABLETS BY MO UT TWICE DAILY WITH MEALS Take 2 tablets by mo ut two times a day with meals. methylPREDNISolone (2 sources) Corticosteroid Start : 12-16 End: 12-22 methylPREDNISolone (MEDROL, CHRISTEN,) 4 mg Dose-Pack Indications: Acute pain of right shoulder Take as instructed per package. 21 tablet 0 12/17/2023 12/23/2023 Active 24 hr metoprolol succinate 25 mg extended release oral tablet (20 sources) beta-Adrenergic Jordan Start : 07-24 End: 12-24 take 1 tablet by mouth once daily metoprolol succinate ER (TOPROL XL) 25 mg 24 hr tablet Indications: Essential hypertension Take 1 tablet by mouth once daily. 90 tablet 3 12/29/2024 12/24/2025 Active Comment on above: Take 1 tablet by teodoro th once daily. perflutren lipid microspheres 1.3 mL in NaCl (PF) 0.9% 10 mL injection (DEFINITY) (20 sources) Start : 12-15 End: 03-15 perflutren lipid microspheres 1.3 mL in NaCl (PF) 0.9% 10 mL injection (DEFINITY) semaglutide 14 mg oral tablet (20 sources) Start : 07-05 End: 12-29 take 1 tablet by mouth once daily before breakfast semaglutide (RYBELSUS) 14 mg tablet Indications: Type 2 diabetes mellitus without complication, without long-term current use of insulin (HCC) Take 1 tablet by mouth daily before breakfast. 90 tablet 1 12/29/2024 Active Start: 04-04-2022 End: 07-03-2022 take 1 tablet by mouth once daily before breakfast semaglutide (RYBELSUS) 14 mg tablet Take 1 tablet (14 mg) by mouth daily before breakfast. 90 tablet 3 04/04/2022 Active Start: 12-21-2021 End: 03-21-2022 take 1 tablet by mouth once daily before breakfast semaglutide (RYBELSUS) 7 mg tablet Take 1 tablet (7 mg) by mouth daily before breakfast. 90 tablet 1 12/21/2021 03/21/2022 Active Start: 10-10-2021 End: 12-21-2021 take 1 tablet by mouth once daily semaglutide (RYBELSUS) 3 mg tablet Take 3 mg by mouth once daily. 0 10/10/2021 12/21/2021 Discontinued Comment on above: Take 3 mg by mouth o nce daily. Take 1 tablet (7 mg) by mouth daily before breakfast. Take 1 tablet (14 mg ) by mouth daily before breakfast. sertraline 50 mg oral tablet (20 sources) Serotonin Reuptake Inhibitor Start: 5 End: 6 take 1 tablet by mouth once daily sertraline (ZOLOFT) 50 mg tablet Indications: Moderate episode of recurrent major depressive disorder (HCC) Take 1 tablet by mouth once daily. 90 tablet 3 02/11/2025 02/11/2026 Active 125 ml sodium chloride 9 mg/ml prefilled syringe (20 sources) Start: 3 End: 4 sodium chloride 0.9 % (flush) 10 mL (BD POSIFLUSH) traZODone hydrochloride 50 mg oral tablet (20 sources) Serotonin Reuptake Inhibitor Start: 5 End: 6 take 1 tablet by mouth once daily at bedtime traZODone (DESYREL) 50 mg tablet Indications: Chronic insomnia Take 1 tablet by mouth daily at bedtime. 90 tablet 3 02/11/2025 02/11/2026 Active Start: 12-29-2024 End: 06-27-2025 take 0.5 tablet by mouth once daily at bedtime traZODone (DESYREL) 50 mg tablet Take 0.5 tablets by mouth daily at bedtime. 15 tablet 5 12/29/2024 02/11/2025 Discontinued Start: 08-29-2024 End: 12-29-2024 take 1 tablet by mouth once daily at bedtime traZODone (DESYREL) 50 mg tablet Take 1 tablet by mouth daily at bedtime. 30 tablet 08/29/2024 12/29/2024 Discontinued vitamin b12 0.5 mg oral tablet (20 sources) Vitamin B12 Start: 12-29-2024 End: 06-27-2025 take 1 tablet by mouth once cyanocobalamin (VITAMIN B-12) 500 mcg tablet Take 1 tablet by mouth every Sunday, Sunday, and Sunday. 12 tablet 5 12/29/2024 06/27/2025 Active Start: 01-30-2023 End: 12-29-2024 take 1 tablet by mouth once daily cyanocobalamin (VITAMIN B-12) 1,000 mcg tab Take 1 tablet by mouth once daily. 01/30/2023 12/29/2024 Discontinued Comment on above: Take 1 tablet by teodoro th once daily. zanubrutinib 80 mg oral capsule (15 sources) Start: End: take 2 capsules by mouth twice daily in the evening zanubrutinib (BRUKINSA) 80 mg capsule Indications: Mantle cell lymphoma, unspecified body region (HCC) Take 2 capsules by mouth two times a day. 120 capsule 02/11/2025 1:51 PM EDT 02/06/2025 03/13/2025 Active zinc sulfate 220 mg oral capsule (20 sources) Start: End: take 1 capsule by mouth once daily Zinc Sulfate Capsule 220 MG 1 capsule Capsule Oral Give 1 capsule by mouth one time a day for zinc deficiency 01/29/2025 9:00:00 02/08/2025 11:44:00 Aborted Start: 01-28-2025 End: 03-12-2025 take 1 capsule by mouth once daily zinc sulfate 220 mg (50 mg zinc) capsule Indications: Zinc deficiency Take 1 capsule by mouth once daily for 29 doses. 29 capsule 02/11/2025 03/12/2025 Active Completed/Discontinued Medications Medication Drug Class(es) Dates Sig (Normalized) Sig (Original) acetaminophen 325 mg / HYDROcodone bitartrate 5 mg oral tablet (1 source) Opioid Agonist Start: 08-27-2020 End: 07-24-2021 take 1 tablet by mouth every eight hours as needed HYDROcodone-acetami nophen (NORCO) 5-325 mg per tablet Indications: Intervertebral disc disorder with radiculopathy of lumbar region Take 1 tablet by mouth every 8 hours as needed for up to 30 days. 90 tablet 08/27/2020 07/24/2021 Discontinued Acetaminophen Extra Strength Tablet 500 MG (1 source) Start: 01-28-2025 End: 02-08-2025 take 2 tablets by mouth every six hours as needed for pain Acetaminophen Extra Strength Tablet 500 MG 2 tablet Tablet Oral Give 2 tablet by mouth every 6 hours as needed for Pain. Repositioning, relaxation, distraction and comfort measures provided and ineffective. Acetaminophen dose not to exceed 3grams per day. PAIN LOCATION: 01/28/2025 12:56:00 02/08/2025 11:44:00 Aborted [id number] 200 actuat albuterol 0.09 mg/actuat metered dose inhaler (20 sources) beta2-Adrenergic Agonist Start: 08-16-2021 End: 07-05-2023 take 2 puff(s) by inhalation every four hours as needed for wheezing albuterol HFA (PROVENTIL HFA, VENTOLIN HFA) 90 mcg/actuation inhaler Inhale 2 Puffs as instructed every 4 hours as needed for wheezing/shortness of breath. 08/16/2021 07/05/2023 Discontinued Comment on above: Inhale 2 Puffs as in structed every 4 hours as needed for wheezing/shortness of breath. aspirin 81 mg oral tablet (20 sources) Platelet Aggregation Inhibitor, Nonsteroidal Anti-inflammatory Drug Start: 01-29-2025 End: 02-08-2025 take 1 tablet by mouth once daily for hypertension Aspirin Oral Tablet 81 mg Tablet Oral GIVE 1 TABLET BY MOUTH DAILY FOR HYPERTENSION 01/29/2025 9:00:00 02/08/2025 11:44:00 Aborted Start: 04-18-2023 End: 06-27-2025 take 1 tablet by mouth once daily aspirin 81 mg chewable tablet Indications: Essential hypertension Take 1 tablet by mouth once daily. 30 tablet 5 12/29/2024 06/27/2025 Active Start: 10-10-2022 End: 01-08-2023 take 1 tablet by mouth once daily aspirin 81 mg chewable tablet Indications: Essential hypertension 1 tablet by ORAL/FEEDING TUBE route once daily. 30 tablet 2 10/10/2022 01/08/2023 Active Start: 07-25-2021 End: 10-10-2022 take 1 tablet by mouth once daily aspirin 81 mg chewable tablet 1 tablet by ORAL/FEEDING TUBE route once daily. 30 tablet 2 07/25/2021 10/10/2022 Discontinued Start: 07-25-2021 End: 10-23-2021 take 1 tablet by mouth once daily aspirin 81 mg chewable tablet 1 tablet by ORAL/FEEDING TUBE route once daily. 30 tablet 2 07/25/2021 Active Start: 02-25-2008 End: 07-24-2021 aspirin(ECOTRIN 325 MG TAB) Take by mouth. 0 02/25/2008 07/24/2021 Discontinued Comment on above: 1 tablet by ORAL/FEE DING TUBE route once daily. CHEW AND SWALLOW 1 ( ONE) TABLET EVERY DAY B Complex-Folic Acid (B COMPLEX 1, WITH FOLIC ACID,) 0.4 mg tab (20 sources) Start: 10-10-2022 End: 12-29-2024 take 1 tablet by mouth once daily B Complex-Folic Acid (B COMPLEX 1, WITH FOLIC ACID,) 0.4 mg tab Indications: Alcohol abuse Take 1 tablet by mouth once daily. 30 tablet 5 10/10/2022 12/29/2024 Discontinued Start: 10-10-2022 take 1 tablet by teodoro th once daily B Complex-Folic Acid (B COMPLEX 1, WITH FOLIC ACID,) 0.4 mg tab Indications: Alcohol abuse Take 1 tablet by mouth once daily. 30 tablet 5 10/10/2022 Active Start: 10-10-2022 End: 04-08-2023 take 1 tablet by mouth once daily B Complex-Folic Acid (B COMPLEX 1, WITH FOLIC ACID,) 0.4 mg tab Indications: Alcohol abuse Take 1 tablet by mouth once daily. 30 tablet 5 10/10/2022 04/08/2023 Active Start: 04-12-2022 End: 10-10-2022 take 1 tablet by mouth once daily B Complex-Folic Acid (B COMPLEX 1, WITH FOLIC ACID,) 0.4 mg tab Indications: Alcohol abuse Take 1 tablet by mouth once daily. 30 tablet 5 04/12/2022 10/10/2022 Discontinued Start: 04-12-2022 End: 10-09-2022 take 1 tablet by mouth once daily B Complex-Folic Acid (B COMPLEX 1, WITH FOLIC ACID,) 0.4 mg tab Indications: Alcohol abuse Take 1 tablet by mouth once daily. 30 tablet 5 04/12/2022 10/09/2022 Active Comment on above: Take 1 tablet by [facility] once daily. Bisacodyl Suppository 10 MG (1 source) Start: 01-29-20 End: 02-09-20 Bisacodyl Suppository 10 MG 1 suppository Suppository Rectal Insert 1 suppository rectally every 24 hours as needed for Constipation, if no results from Miralax. Active bowel sounds heard in all 4 quadrants, abdomen soft, non-distended, non-tender. Appetite unchanged and taking fluids. 01/28/2025 11:22:00 02/08/2025 11:44:00 Aborted chondroitin sulfates 400 mg / glucosamine hydrochloride 500 mg oral capsule (1 source) Start: 04-29-20 End: 08-17-19 take 1 capsule by mouth once daily Qxbjnvdenzc-Jwgjhtzsp-O it C-Mn 500-400 mg cap Take 1 capsule by mouth once daily. 04/29/2015 08/16/2021 Discontinued cyclobenzaprine hydrochloride 10 mg oral tablet (1 source) Muscle Relaxant Start: 03-03-20 End: 07-24-19 take 1 tablet by mouth three times daily as needed cyclobenzaprine (FLEXERIL) 10 mg tablet Indications: Arthrodesis status Take 1 tablet by mouth three times daily as needed. 30 tablet 1 03/03/2019 07/24/2021 Discontinued 1 ml fentaNYL 0.05 mg/ml injection (1 source) Opioid Agonist Start: 08-09-19 End: 08-09-19 25-100 mcg, INTRAVENOUS, DIRECTED, Starting on Germaine 08/09/23 at 1000, Until Germaine 08/09/23 at 1359, DOSING DIRECTED BY PHYSICIAN FOR PROCEDURAL SEDATION ONLY, Intraprocedure flash glucose sensor (FREESTYLE YESSENIA 2 SENSOR) kit (20 sources) Start: 08-22-19 flash glucose sensor (FREESTYLE YESSENIA 2 SENSOR) kit Indications: Type 2 diabetes mellitus with hyperglycemia, without long-term current use of insulin (HCC) CHANGE EVERY 14 DAYS 2 Each 11 08/21/2022 Active Start: 07-04-2022 flash glucose sensor (FREESTYLE YESSENIA 2 SENSOR) kit Indications: Type 2 diabetes mellitus with hyperglycemia, without long-term current use of insulin (HCC) CHANGE EVERY 14 DAYS 2 Each 1 07/04/2022 Active Start: 04-16-2022 End: 07-04-2022 flash glucose sensor (FREEST YLE YESSENIA 2 SENSOR) kit Indications: Type 2 diabetes mellitus with hyperglycemia, without long-term current use of insulin (HCC) CHANGE EVERY 14 DAYS 2 Each 1 04/16/2022 07/04/2022 Discontinued Start: 04-16-2022 flash glucose sensor (FREESTYLE YESSENIA 2 SENSOR) kit Indications: Type 2 diabetes mellitus with hyperglycemia, without long-term current use of insulin (HCC) CHANGE EVERY 14 DAYS 2 Each 1 04/16/2022 Active Comment on above: CHANGE EVERY 14 DAYS fluorouracil 50 mg/ml topical cream (20 sources) Nucleoside Metabolic Inhibitor Start: End: Fluorouracil (EFUDEX) 5 % cream Indications: 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 May stop for few days or decrease to once daily for discomfort. 40 g 03/17/2024 12/29/2024 Discontinued furosemide 20 mg oral tablet (20 sources) Loop Diuretic Start: End: take 1 tablet by mouth once daily furosemide (LASIX) 20 mg tablet Take 1 tablet by mouth once daily. 90 tablet 3 06/18/2023 02/08/2024 Discontinued (Discontinued by another Health Care Provider) Comment on above: Take 1 tablet by teodoro once daily. gabapentin 100 mg oral capsule (18 sources) Anti-epileptic Agent Start: 021 End: 05-02-2 023 gabapentin (NEURONTIN) 100 mg capsule Take by mouth. 0 12/14/2020 10/10/2022 Discontinued Comment on above: Take by mouth. glipiZIDE XL Oral Tablet Extended Release 24 Hour 2.5 MG (1 source) Start: End: take 1 tablet by mouth once daily for diabetes mellitus glipiZIDE XL Oral Tablet Extended Release 24 Hour 2.5 MG 2.5 mg Tablet Extended Release 24 Hour Oral GIVE 1 TABLET BY MOUTH DAILY FOR DIABETES MELLITUS 01/29/2025 9:00:00 02/08/2025 11:44:00 Aborted 3 ml insulin glargine 100 unt/ml pen injector (15 sources) Insulin Analog Start: End: insulin glargine (LANTUS SOLOSTAR, BASAGLAR KWIKPEN) 100 unit/mL (3 mL) Inject 16 Units subcutaneously every morning. 08/16/2021 02/01/2022 Discontinued Comment on above: Inject 16 Units subc utaneously every morning. insulin lispro 100 unt/ml injectable solution (20 sources) Insulin Analog Start: End: insulin lispro 100 unit/mL injection ADMINISTER CORRECTIONAL [...] insulin regimen in the previous 24 hours. 08/16/2021 02/01/2022 Discontinued Start: 08-16-2021 insulin lispro 100 unit/mL injection ADMINISTER CORRECTIONAL [...] insulin regimen in the previous 24 hours. 0 08/16/2021 Active End: 08-02-2022 inject 1 dose by subcutaneous injection once daily insulin lispro (HUMALOG KWIKPEN INSULIN SUBCUTANEOUS) Inject subcutaneously. Based on sliding scale. Max dose 10 units per day 0 08/02/2022 Discontinued Comment on above: ADMINISTER CORRECTIO NAL INSULIN REGARDLESS OF MEAL OR NUTRITION INTAKE [...] insulin regimen in the previous 24 hours. ADMINISTER CORRECTIO NAL INSULIN REGARDLESS OF MEAL OR NUTRITION INTAKE [...] insulin regimen in the previous 24 hours. Inject subcutaneousl y. Based on sliding scale. Max dose 10 units per day memantine hydrochloride 10 mg oral tablet (20 sources) B-ulmple-M-aspartate Receptor Antagonist Start: 11-23-19 24 End: 12-30-19 25 take 1 tablet by mouth twice daily memantine (NAMENDA) 10 mg tablet Indications: Mixed Alzheimer's and vascular dementia (HCC) Take 1 tablet by mouth two times a day. 180 tablet 1 10/09/2024 12/29/2024 Discontinued Start: 11-23-2023 take 1 tablet by teodoro th twice daily memantine (NAMENDA) 10 mg tablet Indications: Mixed Alzheimer's and vascular dementia (HCC) Take 1 tablet by mouth two times a day. Patient should start on November 23, 2023. 60 tablet 3 11/23/2023 Active Start: 11-23-2023 take 1 tablet by teodoro th twice daily memantine (NAMENDA) 10 mg tablet Indications: Mixed Alzheimer's and vascular dementia (HCC) Take 1 tablet by mouth two times a day. Patient should start on November 23, 2023. 60 tablet 3 11/23/2023 Active Start: 11-23-2023 take 1 tablet by teodoro th twice daily memantine (NAMENDA) 10 mg tablet Indications: Mixed Alzheimer's and vascular dementia (HCC) Take 1 tablet by mouth two times a day. Patient should start on November 23, 2023. 60 tablet 3 11/23/2023 Active Start: 11-23-2023 take 1 tablet by teodoro th twice daily memantine (NAMENDA) 10 mg tablet Indications: Mixed Alzheimer's and vascular dementia (HCC) Take 1 tablet by mouth two times a day. Patient should start on November 23, 2023. 60 tablet 3 11/23/2023 Active Start: 11-23-2023 take 1 tablet by teodoro th twice daily memantine (NAMENDA) 10 mg tablet Indications: Mixed Alzheimer's and vascular dementia (HCC) Take 1 tablet by mouth two times a day. Patient should start on November 23, 2023. 60 tablet 3 11/23/2023 Active Start: 11-08-2023 End: 11-22-2023 take 1 tablet by mouth twice daily memantine (NAMENDA) 5 mg tablet Indications: Mixed Alzheimer's and vascular dementia (HCC) Take 1 tablet by mouth two times a day for 14 days. 28 tablet 0 11/08/2023 11/22/2023 5 ml midazolam 1 mg/ml injection (1 source) Benzodiazepine Start: 08-09-2023 End: 08-09-2023 1-5 mg, INTRAVENOUS, DIRECTED, Starting on Germaine 08/09/23 at 1000, Until Germaine 08/09/23 at 1359, DOSING DIRECTED BY PHYSICIAN FOR PROCEDURAL SEDATION ONLY, Intraprocedure MIRALAX (Polyetheylene glycol) LAXATIVE POWDER (1 source) Start: 01-28-2025 End: 02-08-2025 MIRALAX (Polyetheylene glycol) LAXATIVE POWDER 17 gram Oral 17 GRAMS BY MOUTH EVERY 24 HOURS NEEDED FOR CONSTIPATION DISSOLVE IN 240ML FLUID. ACTIVE BOWEL SOUNDS HEARD IN ALL 4 QUADRANTS ABDOMEN SOFT NON-DISTENDED NON-TENDER. APPETITE UNCHANGED AND TAKING FLUIDS 01/28/2025 11:24:00 02/08/2025 11:44:00 Aborted omeprazole 10 mg delayed release oral capsule (20 sources) Proton Pump Inhibitor Start: 12-29-2024 End: 03-29-2025 take 1 capsule by mouth once daily omeprazole (PRILOSEC) 10 mg capsule Take 1 capsule by mouth once daily. 30 capsule 2 12/29/2024 02/11/2025 Discontinued Start: 12-23-2024 End: 02-21-2025 take 1 capsule by mouth once daily, then take 1 capsule by mouth 40 minutes before breakfast omeprazole (PRILOSEC) 20 mg capsule Indications: Autoimmune hemolytic anemia (HCC) Take 1 capsule by mouth once daily. Take 1 tablet 40 minutes before breakfast 30 capsule 1 12/23/2024 12/29/2024 Discontinued Omeprazole Oral Tablet Delayed Release (1 source) Start: 01-29-2025 End: 02-08-2025 take 1 tablet by mouth once daily for gastroesophageal reflux disease Omeprazole Oral Tablet Delayed Release 20 mg Tablet Delayed Release Oral GIVE 1 TABLET BY MOUTH DAILY FOR GERD 01/29/2025 7:00:00 02/08/2025 11:44:00 Aborted polyethylene glycol 3350 26513 mg powder for oral solution (20 sources) Osmotic Laxative Start: 08-17-2021 End: 10-10-2022 polyethylene glycol 3350 (MIRALAX, GLYCOLAX) 17 gram packet Take 1 Packet by mouth once daily. Dissolve dose in 4 - 8 ounces of liquid and take as directed. 08/17/2021 10/10/2022 Discontinued Comment on above: Take 1 Packet by [facility] once daily. Dissolve dose in 4 - 8 ounces of liquid and take as directed. polyethylene glycol 3350 [id number] mg / potassium chloride 2970 mg / sodium bicarbonate 6740 mg / sodium chloride 5860 mg / sodium sulfate 24325 mg powder for oral solution (20 sources) Osmotic Laxative Start: 09-10-2024 End: 09-10-2024 peg 3350-Electrolytes (GOLYTELY) 236-22.74-6.74 -5.86 gram suspension Indications: History of colonic polyps , Abnormal findings on examination of gastrointestinal tract , Diarrhea, unspecified type Take 4,000 mL by mouth one time only for 1 dose. Refer to printed prep instructions from your provider. 4000 mL 09/10/2024 09/10/2024 Start: 05-05-2024 End: 12-29-2024 peg 3350-Electrolytes (GOLYT JOSE) 236-22.74-6.74 -5.86 gram suspension Refer to printed patient instructions that will be mailed to you. 4000 mL 05/05/2024 12/29/2024 Discontinued potassium chloride 10 meq extended release oral tablet (20 sources) Start: 06-18-2023 End: 02-08-2024 take 1 tablet by mouth once daily potassium chloride (K-TAB) 10 mEq tablet Take 1 tablet by mouth once daily. 90 tablet 3 06/18/2023 02/08/2024 Discontinued (Discontinued by another Health Care Provider) Comment on above: Take 1 tablet by teodoro th once daily. predniSONE 10 mg oral tablet (20 sources) Start: 02-04-2025 End: 02-07-2025 take 1 tablet by mouth once daily predniSONE Oral Tablet 10 MG 1 tablet Tablet Oral GIVE 1 TABLET BY MOUTH ONE TIME A DAY FOR COVID FOR 3 DAYS 02/04/2025 9:00:00 02/07/2025 8:59:00 Completed Start: 01-13-2025 End: 02-03-2025 take 4 tablets by mouth once daily predniSONE Oral Tablet 10 MG Tablet Oral GIVE 4 TABLETS BY MOUTH DAILY FOR ONE DAY ; GIVE 2 TABLETS BY MOUTH DAILY FOR SEVEN DAYS ; GIVE 1 TABLET BY MOUTH DAILY FOR SEVEN DAYS ; FOR COVID 01/29/2025 9:00:00 02/03/2025 14:11:00 Aborted Start: 12-23-2024 predniSONE (DE LTASONE) 20 mg tablet Indications: Autoimmune hemolytic anemia (HCC) Take 1 tablet by mouth as directed. Take 4 tablets daily x 7 days, then 3 tablets x 7 days, then 2 tablets x 7 days, then 1 tablets x 7 days, then 1/2 tablet daily x 8 days, than off. 74 tablet 12/23/2024 Suspended Rybelsus Oral Tablet 14 MG (1 source) Start: 01-29-2025 End: 02-08-2025 take 1 tablet by mouth once daily for diabetes mellitus Rybelsus Oral Tablet 14 MG 14 mg Tablet Oral GIVE 1 TABLET BY MOUTH DAILY FOR DIABETES MELLITUS 01/29/2025 8:00:00 02/08/2025 11:44:00 Aborted sulfamethoxazole 800 mg / trimethoprim 160 mg oral tablet (18 sources) Dihydrofolate Reductase Inhibitor Antibacterial, Sulfonamide Antimicrobial Start: 12-24-2024 End: 01-19-2025 take 1 tablet by mouth once sulfamethoxazole-t rimethoprim (BACTRIM DS) 800-160 mg per tablet Indications: Autoimmune hemolytic anemia (HCC) Take 1 tablet by mouth every Sunday, Sunday, and Sunday for 21 days. 9 tablet 12/29/2024 01/19/2025 tamsulosin hydrochloride 0.4 mg oral capsule (20 sources) alpha-Adrenergic Jordan Start: 12-10-2024 End: 02-11-2025 take 0.4 mg by mouth once daily at bedtime tamsulosin (FLOMAX) 0.4 mg Take 0.4 mg by mouth daily at bedtime. 12/10/2024 02/11/2025 Discontinued thiamine 100 mg oral tablet (20 sources) Start: 10-19-2021 End: 12-29-2024 thiamine (VITAMIN B1) 100 mg tablet 100 mg once daily. 10/19/2021 12/29/2024 Discontinued Comment on above: 100 mg once daily. tiZANidine 2 mg oral tablet (11 sources) Central alpha-2 Adrenergic Agonist Start: 12-17-2023 End: 01-04-2024 take 1 tablet by mouth twice daily as needed tiZANidine (ZANAFLEX) 2 mg tablet Indications: Acute pain of right shoulder Take 1-2 tablets by mouth two times a day as needed. 6 tablet 0 12/17/2023 01/04/2024 Discontinued Toprol XL Oral Tablet Extended Release 24 Hour 25 MG (1 source) Start: 01-29-2025 End: 02-08-2025 take 1 tablet by mouth once daily Toprol XL Oral Tablet Extended Release 24 Hour 25 MG 25 mg Tablet Extended Release 24 Hour Oral GIVE 1 TABLET BY MOUTH DAILY FOR CHF 01/29/2025 9:00:00 02/08/2025 11:44:00 Aborted Tuberculin PPD Solution 5 UNIT/0.1ML (1 source) Start: 01-28-2025 End: 02-08-2025 Tuberculin PPD Solution 5 UNIT/0.1ML 0.1 ml Solution Intradermal Inject 0.1 ml intradermally one time a day every 10 day(s) for PPD Test for 2 Weeks Read in 48 hours. Repeat in 10 days if no reaction. 01/28/2025 21:00:00 02/08/2025 11:44:00 Aborted varenicline 1 mg oral tablet (18 sources) Partial Cholinergic Nicotinic Agonist Start: 08-05-2024 End: 12-29-2024 take 1 tablet by mouth twice daily at mealtime varenicline (CHANTIX) 1 mg tablet Indications: Tobacco abuse disorder Take 1 tablet by mouth two times a day with meals. 60 tablet 11 10/06/2024 12/29/2024 Discontinued Vitamin B12 Oral Tablet (1 source) Start: 01-30-2025 End: 02-08-2025 take 1 tablet by mouth once Vitamin B12 Oral Tablet 500 mcg Tablet Oral GIVE 1 TABLET (500 mcg) BY MOUTH DAILY EVERY MON, SUN, SUN FOR SUPPLEMENT 01/30/2025 9:00:00 02/08/2025 11:44:00 Aborted Vitamin D Oral Tablet (1 source) Start: 01-29-2025 End: 02-08-2025 take 1 tablet by mouth once daily Vitamin D Oral Tablet 1000 IU Tablet Oral GIVE 1 TABLET (1000 IU) BY MOUTH DAILY FOR SUPPLEMENT 01/29/2025 9:00:00 02/08/2025 11:44:00 Aborted Problems Active Problems Problem Classification Problem Date Documented Da te Episodic/Chronic Acute and unspecified renal failure (20 sources) Acute renal failure syndrome; Translations: [Acute kidney failure, unspecified] Onset: 5 01-07-2025 Episodic Administrative/social admission (2 sources) Advance directive discussed with patient; Translations: [Other specified counseling] Onset: 5 Episodic Allergic reactions (1 source) Solar degeneration; Translations: [Other skin changes due to chronic exposure to nonionizing radiation] 01-11-2024 Episodic Aortic; peripheral; and visceral artery aneurysms (20 sources) Ascending aorta dilatation; Translations: [Thoracic aortic ectasia] Onset: 4 03-19-2024 Chronic Cardiac and circulatory congenital anomalies (1 source) Arteriovenous malformation, site unspecified; Translations: [ARTERIOVENOUS MALFORMATION, SITE UNSPECIFIED] Onset: 5 Chronic Cataract (2 sources) Cataract Onset: Chronic kidney disease (20 sources) Chronic kidney disease stage 3A ; Translations: [CKD stage 3a, GFR 45-59 ml/min] Onset: 5 01-07-2025 Chronic Chronic kidney disease (1 source) Chronic kidney disease; Translations: [CKD stage 3a, GFR 45-59 ml/min (HCC)] Onset: Coagulation and hemorrhagic disorders (4 sources) Platelet count below reference range; Translations: [Thrombocytopenia, unspecified] Chronic Coagulation and hemorrhagic disorders (2 sources) Petechiae; Translations: [Spontaneous ecchymoses] Onset: 5 02-20-2025 Episodic Congestive heart failure; nonhypertensive (20 sources) Heart failure with reduced ejection fraction; Translations: [Unspecified systolic (congestive) heart failure] Onset: 5 01-11-2025 Chronic Congestive heart failure; nonhypertensive (1 source) Congestive heart failure; nonhypertensive Onset: Coronary atherosclerosis and other heart disease (20 sources) Ischemic myocardial dysfunction; Translations: [Ischemic cardiomyopathy] Onset: 2 09-13-2021 Chronic Coronary atherosclerosis and other heart disease (1 source) Coronary atherosclerosis and other heart disease Onset: Deficiency and other anemia (1 source) Drug-induced autoimmune hemolytic anemia; Translations: [Drug-induced autoimmune hemolytic anemia] 12-29-2024 Chronic Deficiency and other anemia (20 sources) Autoimmune hemolytic anemia; Translations: [Autoimmune hemolytic anemia (HCC)] Onset: 5 12-29-2024 Chronic Deficiency and other anemia (20 sources) Pancytopenia; Translations: [Other pancytopenia] Onset: 5 01-11-2025 Chronic Deficiency and other anemia (1 source) Drug-induced autoimmune hemolytic anemia; Translations: [Drug-induced autoantibody type hemolytic anemia (HCC)] Onset: Chronic Deficiency and other anemia (2 sources) Anemia; Translations: [Anemia, unspecified] 01-05-2025 Episodic Deficiency and other anemia (1 source) Anemia, unspecified; Translations: [Anemia, unspecified type] Onset: Episodic Deficiency and other anemia (2 sources) Deficiency and other anemia; Translations: [AUTOIMMUNE HEMOLYTIC ANEMIA, UNSPECIFIED] Onset: 5 Delirium, dementia, and amnestic and other cognitive disorders (20 sources) Dementia; Translations: [Mild dementia without behavioral disturbance, psychotic disturbance, mood disturbance, or anxiety, unspecified dementia type (HCC)] Onset: 4 01-30-2023 Chronic Diabetes mellitus with complications (20 sources) Hyperglycemia due to type 2 diabetes mellitus; Translations: [Type 2 diabetes mellitus with hyperglycemia] Onset: 2 Resolved: 5 08-16-2021 Chronic Diabetes mellitus without complication (20 sources) Type 2 diabetes mellitus without complication; Translations: [Type 2 diabetes mellitus without complications] Onset: 4 Chronic Disorders of lipid metabolism (20 sources) Mixed hyperlipidemia; Translations: [Mixed hyperlipidemia] Onset: 2 08-16-2021 Chronic Diverticulosis and diverticulitis (1 source) Diverticulosis of large intestine without perforation or abscess without bleeding; Translations: [DIVERTICULOSIS OF LARGE INTESTINE WITHOUT PERFORATION OR ABSCESS WITHOUT BLEEDING] Onset: 5 Chronic Esophageal disorders (3 sources) Gastroesophageal reflux disease without esophagitis; Translations: [Gastro-esophageal reflux disease without esophagitis] Onset: 5 12-29-2024 Chronic Esophageal disorders (1 source) Esophageal disorders Onset: 5 Essential hypertension (20 sources) Essential hypertension; Translations: [Essential (primary) hypertension] Onset: 2 08-16-2021 Chronic Hyperplasia of prostate (17 sources) Benign prostatic hyperplasia without lower urinary tract symptoms; Translations: [Benign prostatic hyperplasia] Onset: 5 02-11-2025 Chronic Hypertension with complications and secondary hypertension (1 source) Hypertensive heart disease with heart failure; Translations: [HYPERTENSIVE HEART DISEASE WITH HEART FAILURE] Onset: 5 Chronic Malaise and fatigue (20 sources) Asthenia; Translations: [Weakness] Onset: 5 01-24-2025 Episodic Miscellaneous mental health disorders (16 sources) Chronic insomnia; Translations: [Psychophysiologic insomnia] Onset: 5 02-11-2025 Chronic Mood disorders (20 sources) Depressive disorder; Translations: [Depression] Onset: 5 01-27-2025 Chronic Mood disorders (2 sources) Mood disorders; Translations: [DEPRESSION, UNSPECIFIED] Onset: 5 Mycoses (2 sources) Onychomycosis; Translations: [Tinea unguium] 12-03-2023 Episodic Nausea and vomiting (1 source) Nausea with vomiting, unspecified; Translations: [Nausea and vomiting, unspecified vomiting type] Onset: 5 Episodic Neoplasms of unspecified nature or uncertain behavior (2 sources) Neoplasm of skin; Translations: [Neoplasm of unspecified behavior of bone, soft tissue, and skin] 10-31-2023 Episodic Non-Hodgkin`s lymphoma (20 sources) Mantle cell lymphoma; Translations: [Mantle cell lymphoma, unspecified site] Onset: 5 01-08-2025 Chronic Nutritional deficiencies (20 sources) Zinc deficiency; Translations: [Dietary zinc deficiency] Onset: 5 01-27-2025 Episodic Occlusion or stenosis of precerebral arteries (20 sources) Right carotid artery stenosis; Translations: [Occlusion and stenosis of right carotid artery] Onset: 2 Resolved: 5 Chronic Open wounds of extremities (1 source) Open wound of left hand; Translations: [Laceration without foreign body of left hand, initial encounter] 05-07-2024 Episodic Osteoarthritis (20 sources) Osteoarthritis; Translations: [Unspecified osteoarthritis, unspecified site] Onset: 8 04-20-2008 Chronic Other aftercare (1 source) Removal of sutures done; Translations: [Encounter for removal of sutures] 01-09-2024 Episodic Other aftercare (1 source) H/O: malignant neoplasm; Translations: [Encounter for follow-up examination after completed treatment for malignant neoplasm] 01-11-2024 Episodic Other aftercare (1 source) Long-term current use of opiate analgesic drug; Translations: [ethylbenzene oxidizer (current) use of opiate analgesic] 09-20-2020 Episodic Other aftercare (1 source) Long-term current use of aspirin; Translations: [halfway (current) use of aspirin] 08-05-2024 Episodic Other aftercare (20 sources) Drug therapy finding; Translations: [halfway (current) use of systemic steroids] Onset: 5 01-12-2025 Episodic Other aftercare (1 source) Already on aspirin Onset: 5 Episodic Other aftercare (1 source) ethylbenzene oxidizer (current) use of oral hypoglycemic drugs; Translations: [QUALITY ASSURANCE QA LAB TECHNICIAN (CURRENT) USE OF ORAL HYPOGLYCEMIC DRUGS] Onset: 5 Episodic Other aftercare (1 source) ethylbenzene oxidizer (current) use of aspirin; Translations: [RESIDENTIAL (CURRENT) USE OF ASPIRIN] Onset: 5 Episodic Other and ill-defined heart disease (20 sources) Systolic dysfunction; Translations: [Other ill-defined heart diseases] Onset: 4 03-19-2024 Chronic Other and ill-defined heart disease (1 source) Other ill-defined heart diseases; Translations: [Systolic dysfunction without heart failure] Onset: 4 Chronic Other and unspecified benign neoplasm (1 source) Multiple benign melanocytic nevi ; Translations: [Melanocytic nevi, unspecified] 01-11-2024 Episodic Other and unspecified benign neoplasm (1 source) Senile angioma; Translations: [Hemangioma of skin and subcutaneous tissue] 01-11-2024 Episodic Other and unspecified benign neoplasm (7 sources) History of polyp of colon; Translations: [History of colonic polyps] 05-02-2024 Episodic Other circulatory disease (1 source) Personal history of transient ischemic attack (TIA), and cerebral infarction without residual deficits; Translations: [PERSONAL HISTORY OF TRANSIENT ISCHEMIC ATTACK (TIA), AND CEREBRAL INFARCTION WITHOUT RESIDUAL DEFICITS] Onset: 5 Episodic Other diseases of kidney and ureters (1 source) Disorder of kidney and ureter, unspecified; Translations: [Acute on chronic renal insufficiency] Onset: 5 Episodic Other diseases of kidney and ureters (1 source) Hydronephrosis with renal and ureteral calculous obstruction; Translations: [Hydronephrosis concurrent with and due to calculi of kidney and ureter] Onset: 5 Episodic Other disorders of stomach and duodenum (1 source) Arteriovenous malformation of duodenum; Translations: [Angiodysplasia of stomach and duodenum without bleeding] 01-08-2025 Episodic Other ear and sense organ disorders (20 sources) Sensorineural hearing loss, bilateral; Translations: [Sensorineural hearing loss, bilateral] Onset: 3 Chronic Other ear and sense organ disorders (1 source) Sensorineural hearing loss, bilateral; Translations: [SENSORINEURAL HEARING LOSS, BILATERAL] Onset: 5 Chronic Other gastrointestinal disorders (2 sources) Diarrhea; Translations: [Diarrhea, unspecified] 09-21-2024 Episodic Other gastrointestinal disorders (1 source) Splenomegaly; Translations: [Splenomegaly, not elsewhere classified] 01-08-2025 Episodic Other hereditary and degenerative nervous system conditions (1 source) Impaired cognition; Translations: [Mild cognitive impairment, so stated] Chronic Other injuries and conditions due to external causes (1 source) History of fall; Translations: [History of falling] Episodic Other injuries and conditions due to external causes (1 source) History of falling; Translations: [HISTORY OF FALLING] Onset: 5 Episodic Other nervous system disorders (20 sources) Carpal tunnel syndrome; Translations: [Carpal tunnel syndrome, unspecified upper limb] Onset: 8 04-20-2008 Chronic Other nervous system disorders (1 source) Cognitive deficit in communication skills; Translations: [Cognitive communication deficit] 11-08-2023 Chronic Other nervous system disorders (1 source) Other chronic pain; Translations: [OTHER CHRONIC PAIN] Onset: 5 Chronic Other nervous system disorders (1 source) Carpal tunnel syndrome, bilateral upper limbs; Translations: [CARPAL TUNNEL SYNDROME, BILATERAL UPPER LIMBS] Onset: 5 Chronic Other non-epithelial cancer of skin (5 sources) Intraepidermal squamous carcinoma of arm; Translations: [Carcinoma in situ of skin of left upper limb, including shoulder] 11-02-2023 Episodic Other non-traumatic joint disorders (2 sources) Pain in right shoulder; Translations: [Pain in joint, shoulder region] 12-17-2023 Episodic Other nutritional; endocrine; and metabolic disorders (20 sources) Hypomagnesemia; Translations: [Hypomagnesemia] Onset: 5 01-24-2025 Chronic Other nutritional; endocrine; and metabolic disorders (1 source) Adult failure to thrive; Translations: [Failure to thrive in adult] Onset: 5 Episodic Other skin disorders (1 source) Skin lesion; Translations: [Disorder of the skin and subcutaneous tissue, unspecified] 09-28-2023 Episodic Other skin disorders (1 source) Foot callus; Translations: [Corns and callosities] 12-03-2023 Episodic Other skin disorders (1 source) Seborrheic keratosis; Translations: [Other seborrheic keratosis] 01-11-2024 Episodic Other skin disorders (1 source) Lentiginosis; Translations: [Other melanin hyperpigmentation] 01-11-2024 Episodic Residual codes; unclassified (1 source) Sleep apnea, unspecified; Translations: [SLEEP APNEA, UNSPECIFIED] Onset: 5 Chronic Residual codes; unclassified (1 source) History of syncope; Translations: [Personal history of other specified conditions] Episodic Residual codes; unclassified (5 sources) Amnesia; Translations: [Other amnesia] Episodic Residual codes; unclassified (1 source) Activity of daily living (ADL) alteration; Translations: [Other specified health status] 04-23-2024 Episodic Residual codes; unclassified (1 source) Needs assistance with community resources; Translations: [Other specified health status] 04-24-2024 Episodic Residual codes; unclassified (2 sources) Tobacco user; Translations: [Tobacco use] 08-05-2024 Episodic Residual codes; unclassified (1 source) Noncompliance with medication regimen; Translations: [Nonadherence to medical treatment] 12-29-2024 Episodic Residual codes; unclassified (16 sources) At risk for infection; Translations: [Other specified personal risk factors, not elsewhere classified] Onset: 5 02-09-2025 Episodic Residual codes; unclassified (1 source) Other specified personal risk factors, not elsewhere classified; Translations: [At risk for infection due to immunosuppression] Onset: 5 Episodic Respiratory failure; insufficiency; arrest (adult) (1 source) Respiratory failure; insufficiency; arrest (adult) Onset: Spondylosis; intervertebral disc disorders; other back problems (20 sources) Displacement of lumbar intervertebral disc without myelopathy; Translations: [Other intervertebral disc displacement, lumbar region] Onset: 1 04-08-2010 Chronic Superficial injury; contusion (1 source) Abrasion of right hand, initial encounter; Translations: [Abrasion or friction burn of hand(s) except finger(s) alone, without mention of infection] Episodic Syncope (1 source) Syncope Onset: Transient cerebral ischemia (1 source) Transient cerebral ischemia Onset: 5 Unclassified (2 sources) Autogenerated Problem Onset: 5 01-19-2025 Unclassified (20 sources) Onset: 5 Unclassified (1 source) UNSPECIFIED DEMENTIA, UNSPECIFIED SEVERITY, WITH OTHER BEHAVIORAL DISTURBANCE; Translations: [UNSPECIFIED DEMENTIA, UNSPECIFIED SEVERITY, WITH OTHER BEHAVIORAL DISTURBANCE] Onset: 5 Unclassified (1 source) LOW BACK PAIN, UNSPECIFIED; Translations: [LOW BACK PAIN, UNSPECIFIED] Onset: 5 Unclassified (1 source) UNVACCINATED FOR COVID-19; Translations: [UNVACCINATED FOR COVID-19] Onset: 5 Unclassified (1 source) Nonadherence to medical treatment; Translations: [Nonadherence to medical treatment] Onset: 5 Unclassified (1 source) History of colonic polyps; Translations: [History of colonic polyps] Onset: 5 Viral infection (3 sources) COVID-19; Translations: [COVID-19] Onset: 5 Past or Other Problems Problem Classification Problem Date Documented Date Episodic/Chronic Alcohol-related disorders (20 sources) Alcohol abuse; Translations: [Alcohol abuse, uncomplicated] Onset: 04-18-2022 Resolved: 07-08-2024 Chronic Cardiac dysrhythmias (1 source) Tachycardia, unspecified; Translations: [Tachycardia] Onset: 01-06-2025 Episodic Cataract (20 sources) Pseudophakia of left eye; Translations: [Presence of intraocular lens] Onset: 05-20-2013 Resolved: 01-08-2025 05-20-2013 Chronic Deficiency and other anemia (20 sources) Hemolytic anemia; Translations: [Hereditary hemolytic anemia, unspecified] Onset: 01-07-2025 Resolved: 01-07-2025 01-07-2025 Chronic Diabetes mellitus without complication (2 sources) Hyperglycemia; Translations: [Hyperglycemia, unspecified] Onset: 01-06-2025 Episodic Diseases of white blood cells (20 sources) Leukocytosis; Translations: [Elevated white blood cell count, unspecified] Onset: 07-23-2021 Resolved: 07-24-2021 07-24-2021 Chronic Fluid and electrolyte disorders (20 sources) Metabolic acidosis, IAG, accumulation of organic acids; Translations: [Metabolic acidosis with increased anion gap and accumulation of organic acids] Onset: 01-07-2025 Resolved: 01-08-2025 01-07-2025 Episodic Genitourinary symptoms and ill-defined conditions (20 sources) Urinary casts; Translations: [Other abnormal findings in urine] Onset: 08-03-2021 Resolved: 01-08-2025 08-10-2021 Episodic Glaucoma (20 sources) Ocular hypertension, unspecified eye; Translations: [Ocular hypertension] Onset: 05-20-2013 Resolved: 01-08-2025 05-20-2013 Chronic Immunizations and screening for infectious disease (20 sources) Patient encounter status; Translations: [Encounter for immunization] Onset: 08-09-2023 Resolved: 01-08-2025 Episodic Lymphadenitis (20 sources) Localized enlarged lymph nodes; Translations: [Localized enlarged lymph nodes] Onset: 12-29-2024 12-27-2024 Episodic Other acquired deformities (20 sources) Lumbar spondylolisthesis; Translations: [Spondylolisthesis, lumbar region] Onset: 10-01-2017 10-01-2017 Episodic Other aftercare (1 source) halfway (current) use of insulin; Translations: [Type 2 diabetes mellitus without complication, with long-term current use of insulin (HCC)] Onset: 01-10-2025 Episodic Other connective tissue disease (20 sources) Contracture of palmar fascia; 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]] Onset: 04-20-2008 04-20-2008 Episodic Other connective tissue disease (20 sources) History of lumbar fusion; Translations: [Arthrodesis status] Onset: 10-01-2017 10-01-2017 Episodic Other connective tissue disease (20 sources) Recurrent falls ; Translations: [Repeated falls] Onset: 08-03-2021 Resolved: 10-10-2022 08-03-2021 Episodic Other hematologic conditions (20 sources) Raised cardiac enzyme or marker; Translations: [Other specified abnormalities of plasma proteins] Onset: 07-23-2021 Resolved: 10-10-2022 07-23-2021 Episodic Other nervous system disorders (20 sources) Slurred speech; Translations: [Slurred speech] Onset: 07-23-2021 Resolved: 07-24-2021 07-24-2021 Episodic Other non-traumatic joint disorders (20 sources) Hand joint pain; Translations: [Pain in joints of unspecified hand] Onset: 04-20-2008 Resolved: 07-08-2024 04-20-2008 Episodic Other nutritional; endocrine; and metabolic disorders (20 sources) Obese class I; Translations: [Obesity, unspecified] Onset: 08-03-2021 Resolved: 07-08-2024 08-10-2021 Chronic Other screening for suspected conditions (not mental disorders or infectious disease) (20 sources) Imaging of gastrointestinal tract abnormal; Translations: [Abnormal findings on diagnostic imaging of other parts of digestive tract] Onset: 04-25-2024 09-21-2024 Episodic Residual codes; unclassified (20 sources) Altered mental status; Translations: [Altered mental status, unspecified] Onset: 07-23-2021 Resolved: 07-24-2021 07-24-2021 Episodic Residual codes; unclassified (1 source) Other amnesia; Translations: [Memory loss] Onset: 08-05-2024 Episodic Respiratory failure; insufficiency; arrest (adult) (20 sources) Acute respiratory failure; Translations: [Acute respiratory failure with hypoxia] Onset: 08-10-2021 Resolved: 10-10-2022 08-10-2021 Episodic Septicemia (except in labor) (20 sources) Sepsis; Translations: [Sepsis, unspecified organism] Onset: 01-07-2025 Resolved: 01-07-2025 01-07-2025 Episodic Spondylosis; intervertebral disc disorders; other back problems (20 sources) Thoracic and lumbosacral neuritis; Translations: [Thoracic or lumbosacral neuritis or radiculitis, unspecified] Onset: 11-23-2000 Resolved: 07-08-2024 04-08-2010 Episodic Sprains and strains (20 sources) Lumbar sprain; Translations: [Sprain of ligaments of lumbar spine, initial encounter] Onset: 11-23-2000 Resolved: 07-08-2024 04-08-2010 Episodic Substance-related disorders (20 sources) Nicotine dependence; Translations: [Nicotine dependence, unspecified, uncomplicated] Onset: 07-24-2021 Resolved: 02-17-2025 08-10-2021 Chronic Syncope (20 sources) Syncope; Translations: [Syncope and collapse] Onset: 07-23-2021 Resolved: 10-10-2022 07-23-2021 Episodic Viral infection (20 sources) Disease caused by 2019-nCoV; Translations: [COVID-19] Onset: 08-03-2021 Resolved: 10-10-2022 08-03-2021 Episodic Results Test Name Value Interpretation Reference Range Facility CNPNon 04-22-2025 CNPN Normal [facility] Basic metabolic 2000 panelon 04-21-2025 Anion gap [Moles/Vol] 14 mmol/L Normal 8-15 [facility] Comment on above: Order Comment: Speci men Type: BLOOD SPECIMENOrdering Facility: [facility] Address: [address] [place] [address] Performed By: #### 2 4321-2, 2777-1 ####[facility] LABORATORYCLIA [id number] [place] [address] [place] Calcium [Mass/Vol] 8.6 mg/dL Normal 8.5-10.2 [facility] Comment on above: Order Comment: Speci men Type: BLOOD SPECIMENOrdering Facility: [facility] Address: [address] [place] [address] Performed By: #### 2 4321-2, 2777-1 ####HERRERA LABORATORYCLIA [id number] [place] [address] [place] Chloride [Moles/Vol] 102 mmol/L Normal 98-107 [facility] Comment on above: Order Comment: Speci men Type: BLOOD SPECIMENOrdering Facility: [facility] Address: [address] [place] [address] Performed By: #### 2 4321-2, 2777-1 ####HERRERA LABORATORYCLIA [id number] [place] [address] [place] CO2 [Moles/Vol] 23 mmol/L Normal 22-30 [facility] Comment on above: Order Comment: Speci men Type: BLOOD SPECIMENOrdering Facility: [facility] Address: [address] [place] [address] Performed By: #### 2 4321-2, 2777-1 ####MERIDEN LABORATORYCLIA [id number] [place] [address] [place] Creatinine [Mass/Vol] 5.73 mg/dL High 0.73-1.22 [facility] Comment on above: Order Comment: [facility] Type: BLOOD SPECIMENOrdering Facility: [facility] Address: [address] [place] [address] Performed By: #### 2 4321-2, 277- ####HERRERA LABORATORYCLIA [id number] [place] [id number] [place] eGFRcr SerPlBld CKD-EPI 2020 10 mL/min/1.73m??? Low >=60 [facility] Comment on above: Order Comment: Demarco harris Type: BLOOD SPECIMENOrdering Facility: [facility] Address: [address] [place] [address] Result Comment: Nancy mated Glomerular Filtration Rate [...] actual GFR. Performed By: #### 2 4321-2, 2777- ####HERRERA LABORATORYCLIA [id number] [place] [id number] [place] Glucose [Mass/Vol] 132 mg/dL High 74-99 [facility] Comment on above: Order Comment: Demarco kimberly Type: BLOOD SPECIMENOrdering Facility: [facility] Address: [address] [place] [address] Result Comment: The [employer] (ADA) provides guidance for cutoff [...] Standards of Medical Care in Diabetes 2016, [employer]. Diabetes Care. 2016.39(Suppl 1). Performed By: #### 2 4321-2, 2777- ####HERRERA LABORATORYCLIA [id number] [place] [address] [place] Potassium [Moles/Vol] 4.5 mmol/L Normal 3.7-5.1 [facility] Comment on above: Order Comment: Demarco harris Type: BLOOD SPECIMENOrdering Facility: [facility] Address: [address] [place] [address] Performed By: #### 2 4321-2, 2776- ####HERRERA LABORATORYCLIA [id number] [address] [place] Sodium [Moles/Vol] 139 mmol/L Normal 136-144 [facility] Comment on above: Order Comment: Demarco harris Type: BLOOD SPECIMENOrdering Facility: [facility] Address: [address] [place] [address] Performed By: #### 2 4321-2, 2776-06 ####HERRERA LABORATORYCLIA [id number] [place] [address] [place] Urea nitrogen [Mass/Vol] 62 mg/dL High 9-24 [facility] Comment on above: Order Comment: Demarco harris Type: BLOOD SPECIMENOrdering Facility: [facility] Address: [address] [place] [address] Performed By: #### 2 4321-2, 2776- ####HERRERA LABORATORYCLIA [id number] [address] [place] CASE MANAGEMon 04-21-2025 CASE MANAGEM Normal [facility] CASE MANAGEM Normal [facility] CASE MANAGEM [facility] CBC W Auto Differential pane l (Bld)on 04-21-2025 Basophils (Bld) [#/Vol] 0.05 10*3/uL Normal <0.11 [facility] Comment on above: Order Comment: Speci men Type: BLOOD SPECIMENOrdering Facility: [facility] Address: [address] [place] [address] Performed By: #### 5 7021-8 ####HERRERA LABORATORYCLIA [id number] [place] [address] [place] Basophils/100 WBC (Bld) 1.1 % Normal [facility] Comment on above: Order Comment: Speci men Type: BLOOD SPECIMENOrdering Facility: [facility] Address: [address] [place] [address] Performed By: #### 5 7021-8 ####HERRERA LABORATORYCLIA [id number] [place] [address] [place] Differential cell count method Nom (Bld) Auto Normal [facility] Comment on above: Order Comment: Speci men Type: BLOOD SPECIMENOrdering Facility: [facility] Address: [address] [place] [address] Performed By: #### 5 7021-8 ####HERRERA LABORATORYCLIA [id number] [place] [address] [place] Eosinophils (Bld) [#/Vol] 0.11 10*3/uL Normal <0.46 [facility] Comment on above: Order Comment: Speci men Type: BLOOD SPECIMENOrdering Facility: [facility] Address: [address] [place] [address] Performed By: #### 5 7021-8 ####HERRERA LABORATORYCLIA [id number] [place] [address] [place] Eosinophils/100 WBC (Bld) 2.4 % Normal [facility] Comment on above: Order Comment: Speci men Type: BLOOD SPECIMENOrdering Facility: [facility] Address: [address] [place] [address] Performed By: #### 5 7021-8 ####HERRERA LABORATORYCLIA [id number] [place] [address] [place] Erythrocyte distribution width (RBC) [Ratio] 15.2 % High 11.5-15.0 [facility] Comment on above: Order Comment: Speci men Type: BLOOD SPECIMENOrdering Facility: [facility] Address: [address] [place] [address] Performed By: #### 5 7021-8 ####HERRERA LABORATORYCLIA [id number] [place] [address] [place] Hematocrit (Bld) [Volume fraction] 27.5 % Low 39.0-51.0 [facility] Comment on above: Order Comment: Speci men Type: BLOOD SPECIMENOrdering Facility: [facility] Address: [address] [place] [address] Performed By: #### 5 7021-8 ####HERRERA LABORATORYCLIA [id number] [place] [address] [place] Hemoglobin (Bld) [Mass/Vol] 9.1 g/dL Low 13.0-17.0 [facility] Comment on above: Order Comment: Speci men Type: BLOOD SPECIMENOrdering Facility: [facility] Address: [address] [place] [address] Performed By: #### 5 7021-8 ####HERRERA LABORATORYCLIA [id number] [place] [address] [place] Immature granulocytes (Bld) [#/Vol] 0.03 10*3/uL Normal <0.10 [facility] Comment on above: Order Comment: Speci men Type: BLOOD SPECIMENOrdering Facility: [facility] Address: [address] [place] [address] Performed By: #### 5 7021-8 ####HERRERA LABORATORYCLIA [id number] [place] [address] [place] Immature granulocytes/100 WBC (Bld) 0.6 % Normal [facility] Comment on above: Order Comment: Speci men Type: BLOOD SPECIMENOrdering Facility: [facility] Address: [address] [place] [address] Performed By: #### 5 7021-8 ####HERRERA LABORATORYCLIA [id number] [place] [address] [facility] [place] Lymphocytes (Bld) [#/Vol] 2.03 10*3/uL Normal 1.00-4.00 [facility] Comment on above: Order Comment: Speci men Type: BLOOD SPECIMENOrdering Facility: [facility] Address: [address] [place] [address] Performed By: #### 5 7021-8 ####HERRERA LABORATORYCLIA [id number] [address] [place] [facility] Lymphocytes/100 WBC (Bld) 43.6 % Normal [facility] Comment on above: Order Comment: Speci men Type: BLOOD SPECIMENOrdering Facility: [facility] Address: [address] [place] [address] Performed By: #### 5 7021-8 ####HERRERA LABORATORYCLIA [id number] [address] MCH (RBC) [Entitic mass] 30.1 pg Normal 26.0-34.0 [facility] Comment on above: Order Comment: Speci men Type: BLOOD SPECIMENOrdering Facility: [facility] Address: [address] [place] [address] Performed By: #### 5 7021-8 ####HERRERA LABORATORYCLIA [id number] [address] [place] MCHC (RBC) [Mass/Vol] 33.1 g/dL Normal 30.5-36.0 [facility] Comment on above: Order Comment: Speci men Type: BLOOD SPECIMENOrdering Facility: [facility] Address: [address] [place] [address] Performed By: #### 5 7021-8 ####HERRERA LABORATORYCLIA [id number] [address] [place] [facility] MCV (RBC) [Entitic vol] 91.1 fL Normal 80.0-100.[address] [facility] Comment on above: Order Comment: Speci men Type: BLOOD SPECIMENOrdering Facility: [facility] Address: [address] [place] [address] Performed By: #### 5 7021-8 ####HERRERA LABORATORYCLIA [id number] [address] [place] Monocytes (Bld) [#/Vol] 0.60 10*3/uL Normal <0.87 [facility] Comment on above: Order Comment: Speci men Type: BLOOD SPECIMENOrdering Facility: [facility] Address: [address] [place] [address] Performed By: #### 5 7021-8 ####HERRERA LABORATORYCLIA [id number] [place] [address] [place] Monocytes/100 WBC (Bld) 12.9 % Normal [facility] Comment on above: Order Comment: Speci men Type: BLOOD SPECIMENOrdering Facility: [facility] Address: [address] [place] [address] Performed By: #### 5 7021-8 ####HERRERA LABORATORYCLIA [id number] [place] [address] [place] Neutrophils (Bld) [#/Vol] 1.84 10*3/uL Normal 1.45-7.50 [facility] Comment on above: Order Comment: Speci men Type: BLOOD SPECIMENOrdering Facility: [facility] Address: [address] [place] [address] Performed By: #### 5 7021-8 ####HERRERA LABORATORYCLIA [id number] [place] [address] [place] Neutrophils/100 WBC (Bld) 39.4 % Normal [facility] Comment on above: Order Comment: Speci men Type: BLOOD SPECIMENOrdering Facility: [facility] Address: [address] [place] [address] Performed By: #### 5 7021-8 ####HERRERA LABORATORYCLIA [id number] [place] [address] [place] Nucleated RBC (Bld) [#/Vol] 10*3/uL Normal <0.01 [facility] Comment on above: Order Comment: Speci men Type: BLOOD SPECIMENOrdering Facility: [facility] Address: [address] [place] [address] Performed By: #### 5 7021-8 ####HERRERA LABORATORYCLIA [id number] [place] [address] [place] Nucleated RBC/100 WBC (Bld) [Ratio] 0.0 /100 WBC Normal [facility] Comment on above: Order Comment: Speci men Type: BLOOD SPECIMENOrdering Facility: [facility] Address: [address] [place] [address] Performed By: #### 5 7021-8 ####HERRERA LABORATORYCLIA [id number] [address] [place] Platelet mean volume (Bld) [Entitic vol] 9.9 fL Normal 9.0-12.7 [facility] Comment on above: Order Comment: Speci men Type: BLOOD SPECIMENOrdering Facility: [facility] Address: [address] [place] [address] Performed By: #### 5 7021-8 ####HERRERA LABORATORYCLIA [id number] [place] [address] [place] Platelets (Bld) [#/Vol] 118 10*3/uL Low 150-400 [facility] Comment on above: Order Comment: Speci men Type: BLOOD SPECIMENOrdering Facility: [facility] Address: [address] [place] [address] Performed By: #### 5 7021-8 ####HERRERA LABORATORYCLIA [id number] [place] [address] [place] RBC (Bld) [#/Vol] 3.02 10*6/uL Low 4.20-6.00 [facility] Comment on above: Order Comment: Speci men Type: BLOOD SPECIMENOrdering Facility: [facility] Address: [address] [place] [address] Performed By: #### 5 7021-8 ####HERRERA LABORATORYCLIA [id number] [address] [place] WBC (Bld) [#/Vol] 4.66 10*3/uL Normal 3.70-11.00 [facility] Comment on above: Order Comment: Speci men Type: BLOOD SPECIMENOrdering Facility: [facility] Address: [address] [place] [address] Performed By: #### 5 7021-8 ####HERRERA LABORATORYCLIA [id number] [address] [place] CNDSon 04-21-2025 CNDS Normal [facility] CONSULT PROGon 04-21-2025 CONSULT PROG Normal [facility] CONSULT PROG Normal [facility] Phosphate SerPl-mCncon 04-21 Phosphate [Mass/Vol] 6.3 mg/dL High 2.7-4.8 [facility] Comment on above: Order Comment: Speci men Type: BLOOD SPECIMENOrdering Facility: [facility] Address: [address] [place] [address] Performed By: #### 2 4321-2, 2777-1 ####HERRERA LABORATORYCLIA [id number] [place] [id number] [place] Basic metabolic 2000 panelon 04-20-2025 Anion gap [Moles/Vol] 12 mmol/L Normal 8-15 [facility] Comment on above: Order Comment: Speci men Type: BLOOD SPECIMENOrdering Facility: [facility] Address: [address] [place] [address] [place] [address] Performed By: #### 2 777-1, 75632-4 ####HERRERA LABORATORYCLIA [id number] [place] [address] [place] Calcium [Mass/Vol] 8.7 mg/dL Normal 8.5-10.2 [facility] Comment on above: Order Comment: Speci men Type: BLOOD SPECIMENOrdering Facility: [facility] Address: [address] [place], [place] [address] [address] Performed By: #### 2 777-1, 08432-4 ####HERRERA LABORATORYCLIA [id number] [place] [id number] [place] Chloride [Moles/Vol] 103 mmol/L Normal 98-107 [facility] Comment on above: Order Comment: Speci men Type: BLOOD SPECIMENOrdering Facility: [facility] Address: [address] [place] [address] Performed By: #### 2 777-1, 86495-4 ####HERRERA LABORATORYCLIA [id number] [place] [id number] [place] CO2 [Moles/Vol] 25 mmol/L Normal 22-30 [facility] Comment on above: Order Comment: Demarco harris Type: BLOOD SPECIMENOrdering Facility: [facility] Address: [address] [place] [address] Performed By: #### 2 777-1, 66729-2 ####MERIDEN LABORATORYCLIA [id number] [place] [address] [place] Creatinine [Mass/Vol] 4.72 mg/dL High 0.73-1.22 [facility] Comment on above: Order Comment: Demarco kimberly Type: BLOOD SPECIMENOrdering Facility: [facility] Address: [address] [place] [address] Performed By: #### 2 777-1, 51901-4 ####MERIDEN LABORATORYCLIA [id number] [address] [place] eGFRcr SerPlBld CKD-EPI 2020 12 mL/min/1.73m??? Low >=60 [facility] Comment on above: Order Comment: Demarco kimberly Type: BLOOD SPECIMENOrdering Facility: [facility] Address: [address] [place] [address] Result Comment: Nancy mated Glomerular Filtration Rate [...] actual GFR. Performed By: #### 2 777-1, 13642-7 ####MERIDEN LABORATORYCLIA [id number] [place] [address] [place] Glucose [Mass/Vol] 174 mg/dL High 74-99 [facility] Comment on above: Order Comment: Demarco harris Type: BLOOD SPECIMENOrdering Facility: [facility] Address: [address] [place] [address] Result Comment: The [place] [employer] (ADA) provides guidance for cutoff [...] Standards of Medical Care in Diabetes 2016, [place] [employer]. Diabetes Care. 2016.39(Suppl 1). Performed By: #### 2 777-1, 29361-2 ####HERRERA LABORATORYCLIA [id number] [address] [place] Potassium [Moles/Vol] 4.1 mmol/L Normal 3.7-5.1 [facility] Comment on above: Order Comment: Demarco harris Type: BLOOD SPECIMENOrdering Facility: [facility] Address: [address] [place] [address] Performed By: #### 2 777-1, 30145-0 ####HERRERA LABORATORYCLIA [id number] [address] [place] [facility] Sodium [Moles/Vol] 140 mmol/L Normal 136-144 [facility] Comment on above: Order Comment: Demarco harris Type: BLOOD SPECIMENOrdering Facility: [facility] Address: [address] [place] [address] Performed By: #### 2 777-1, 94566-1 ####HERRERA LABORATORYCLIA [id number] [address] [place] Urea nitrogen [Mass/Vol] 52 mg/dL High 9-24 [facility] Comment on above: Order Comment: Demarco harris Type: BLOOD SPECIMENOrdering Facility: [facility] Address: [address] [place] [address] Performed By: #### 2 777-1, 66395-9 ####HERRERA LABORATORYCLIA [id number] [address] [place] CASE MANAGEMon 04-20-2025 CASE MANAGEM [facility] CASE MANAGEM [facility] CBC W Auto Differential pane l (Bld)on 04-20-2025 Basophils (Bld) [#/Vol] 0.05 10*3/uL Normal <0.11 [facility] Comment on above: Order Comment: Speci men Type: BLOOD SPECIMENOrdering Facility: [facility] Address: [address] [place] [address] Performed By: #### 5 7021-8 ####HERRERA LABORATORYCLIA [id number] [place] [address] [place] Basophils/100 WBC (Bld) 0.9 % Normal [facility] Comment on above: Order Comment: Speci men Type: BLOOD SPECIMENOrdering Facility: [facility] Address: [address] [place] [address] Performed By: #### 5 7021-8 ####HERRERA LABORATORYCLIA [id number] [place] [address] [place] Differential cell count method Nom (Bld) Auto Normal [facility] Comment on above: Order Comment: Speci men Type: BLOOD SPECIMENOrdering Facility: [facility] Address: [address] [place] [address] Performed By: #### 5 7021-8 ####HERRERA LABORATORYCLIA [id number] [place] [address] [place] Eosinophils (Bld) [#/Vol] 0.09 10*3/uL Normal <0.46 [facility] Comment on above: Order Comment: Speci men Type: BLOOD SPECIMENOrdering Facility: [facility] Address: [address] [place] [address] Performed By: #### 5 7021-8 ####HERRERA LABORATORYCLIA [id number] [place] [address] [place] Eosinophils/100 WBC (Bld) 1.7 % Normal [facility] Comment on above: Order Comment: Speci men Type: BLOOD SPECIMENOrdering Facility: [facility] Address: [address] [place] [address] Performed By: #### 5 7021-8 ####HERRERA LABORATORYCLIA [id number] [place] [address] [place] Erythrocyte distribution width (RBC) [Ratio] 15.4 % High 11.5-15.0 [facility] Comment on above: Order Comment: Speci men Type: BLOOD SPECIMENOrdering Facility: [facility] Address: [address] [place] [address] Performed By: #### 5 7021-8 ####HERRERA LABORATORYCLIA [id number] [place] [address] [facility] [place] Hematocrit (Bld) [Volume fraction] 28.7 % Low 39.0-51.0 [facility] Comment on above: Order Comment: Speci men Type: BLOOD SPECIMENOrdering Facility: [facility] Address: [address] [place] [address] Performed By: #### 5 7021-8 ####HERRERA LABORATORYCLIA [id number] [address] [place] Hemoglobin (Bld) [Mass/Vol] 9.4 g/dL Low 13.0-17.0 [facility] Comment on above: Order Comment: Speci men Type: BLOOD SPECIMENOrdering Facility: [facility] Address: [address] [place] [address] Performed By: #### 5 7021-8 ####HERRERA LABORATORYCLIA [id number] [address] [place] Immature granulocytes (Bld) [#/Vol] 0.03 10*3/uL Normal <0.10 [facility] Comment on above: Order Comment: Speci men Type: BLOOD SPECIMENOrdering Facility: [facility] Address: [address] [place] [address] Performed By: #### 5 7021-8 ####HERRERA LABORATORYCLIA [id number] [address] [place] Immature granulocytes/100 WBC (Bld) 0.6 % Normal [facility] Comment on above: Order Comment: Speci men Type: BLOOD SPECIMENOrdering Facility: [facility] Address: [address] [place] [address] Performed By: #### 5 7021-8 ####HERRERA LABORATORYCLIA [id number] [place] [address] [facility] [place] Lymphocytes (Bld) [#/Vol] 2.26 10*3/uL Normal 1.00-4.00 [facility] Comment on above: Order Comment: Speci men Type: BLOOD SPECIMENOrdering Facility: [facility] Address: [address] [place] [address] Performed By: #### 5 7021-8 ####HERRERA LABORATORYCLIA [id number] [address] [place] [facility] Lymphocytes/100 WBC (Bld) 42.6 % Normal [facility] Comment on above: Order Comment: Speci men Type: BLOOD SPECIMENOrdering Facility: [facility] Address: [address] [place] [address] Performed By: #### 5 7021-8 ####HERRERA LABORATORYCLIA [id number] [address] MCH (RBC) [Entitic mass] 30.0 pg Normal 26.0-34.0 [facility] Comment on above: Order Comment: Speci men Type: BLOOD SPECIMENOrdering Facility: [facility] Address: [address] [place] [address] Performed By: #### 5 7021-8 ####HERRERA LABORATORYCLIA [id number] [address] MCHC (RBC) [Mass/Vol] 32.8 g/dL Normal 30.5-36.0 [facility] Comment on above: Order Comment: Speci men Type: BLOOD SPECIMENOrdering Facility: [facility] Address: [address] [place] [address] Performed By: #### 5 7021-8 ####HERRERA LABORATORYCLIA [id number] [address] MCV (RBC) [Entitic vol] 91.7 fL Normal 80.0-100.0 [facility] Comment on above: Order Comment: Speci men Type: BLOOD SPECIMENOrdering Facility: [facility] Address: [address] [place] [address] Performed By: #### 5 7021-8 ####HERRERA LABORATORYCLIA [id number] [place] [address] [place] Monocytes (Bld) [#/Vol] 0.55 10*3/uL Normal <0.87 [facility] Comment on above: Order Comment: Speci men Type: BLOOD SPECIMENOrdering Facility: [facility] Address: [address] [place] [address] Performed By: #### 5 7021-8 ####HERRERA LABORATORYCLIA [id number] [place] [address] [place] Monocytes/100 WBC (Bld) 10.4 % Normal [facility] Comment on above: Order Comment: Speci men Type: BLOOD SPECIMENOrdering Facility: [facility] Address: [address] [place] [address] Performed By: #### 5 7021-8 ####HERRERA LABORATORYCLIA [id number] [place] [address] [place] Neutrophils (Bld) [#/Vol] 2.32 10*3/uL Normal 1.45-7.50 [facility] Comment on above: Order Comment: Speci men Type: BLOOD SPECIMENOrdering Facility: [facility] Address: [address] [place] [address] Performed By: #### 5 7021-8 ####HERRERA LABORATORYCLIA [id number] [place] [id number] [place] Neutrophils/100 WBC (Bld) 43.8 % Normal [facility] Comment on above: Order Comment: Speci men Type: BLOOD SPECIMENOrdering Facility: [facility] Address: [address] [place] [address] Performed By: #### 5 7021-8 ####HERRERA LABORATORYCLIA [id number] [place] [id number] [place] Nucleated RBC (Bld) [#/Vol] 10*3/uL Normal <0.01 [facility] Comment on above: Order Comment: Speci men Type: BLOOD SPECIMENOrdering Facility: [facility] Address: [address] [place] [address] Performed By: #### 5 7021-8 ####HERRERA LABORATORYCLIA [id number] [place] [address] [place] Nucleated RBC/100 WBC (Bld) [Ratio] 0.0 /100 WBC Normal [facility] Comment on above: Order Comment: Speci men Type: BLOOD SPECIMENOrdering Facility: [facility] Address: [address] [place] [address] Performed By: #### 5 7021-8 ####HERRERA LABORATORYCLIA [id number] [place] [address] [place] Platelet mean volume (Bld) [Entitic vol] 10.3 fL Normal 9.0-12.7 [facility] Comment on above: Order Comment: Speci men Type: BLOOD SPECIMENOrdering Facility: [facility] Address: [address] [place] [address] Performed By: #### 5 7021-8 ####HERRERA LABORATORYCLIA [id number] [place] [address] [place] Platelets (Bld) [#/Vol] 104 10*3/uL Low 150-400 [facility] Comment on above: Order Comment: Speci men Type: BLOOD SPECIMENOrdering Facility: [facility] Address: [address] [place] [address] Performed By: #### 5 7021-8 ####HERRERA LABORATORYCLIA [id number] [place] [address] [place] RBC (Bld) [#/Vol] 3.13 10*6/uL Low 4.20-6.00 [facility] Comment on above: Order Comment: Speci men Type: BLOOD SPECIMENOrdering Facility: [facility] Address: [address] [place] [address] Performed By: #### 5 7021-8 ####HERRERA LABORATORYCLIA [id number] [place] [id number] [place] WBC (Bld) [#/Vol] 5.30 10*3/uL Normal 3.70-11.00 [facility] Comment on above: Order Comment: Speci men Type: BLOOD SPECIMENOrdering Facility: [facility] Address: [address] [place] [address] Performed By: #### 5 7021-8 ####HERRERA LABORATORYCLIA [id number] [place] [address] [facility] [place] CONSULT PROGon 04-20-2025 CONSULT PROG Normal [facility] CONSULT PROG Normal [facility] NUTRITIONon 04-20-2025 NUTRITION Normal [facility] Phosphate SerPl-mCncon 04-20 Phosphate [Mass/Vol] 5.2 mg/dL High 2.7-4.8 [facility] Comment on above: Order Comment: Speci men Type: BLOOD SPECIMENOrdering Facility: [facility] Address: [address] [place] [address] Performed By: #### 2 777-1, 23088-0 ####HERRERA LABORATORYCLIA [id number] [address] [place] THERAPY NTon 04-20-2025 THERAPY NT [facility] THERAPY NT [facility] Basic metabolic 2000 panelon 04-19-2025 Anion gap [Moles/Vol] 11 mmol/L Normal 8-15 [facility] Comment on above: Order Comment: Speci men Type: BLOOD SPECIMENOrdering Facility: [facility] Address: [address] [place] [address] Performed By: #### 2 4321-2, 277- ####HERRERA LABORATORYCLIA [id number] [place] [address] [place] Calcium [Mass/Vol] 8.3 mg/dL Low 8.5-10.2 [facility] Comment on above: Order Comment: Speci men Type: BLOOD SPECIMENOrdering Facility: [facility] Address: [address] [place] [address] Performed By: #### 2 4321-2, 2777-1 ####HERRERA LABORATORYCLIA [id number] [place] [address] [place] Chloride [Moles/Vol] 102 mmol/L Normal 98-107 [facility] Comment on above: Order Comment: Speci men Type: BLOOD SPECIMENOrdering Facility: [facility] Address: [address] [place] [address] Performed By: #### 2 4321-2, 2777-1 ####HERRERA LABORATORYCLIA [id number] [place] [address] [place] CO2 [Moles/Vol] 25 mmol/L Normal 22-30 [facility] Comment on above: Order Comment: Demarco harris Type: BLOOD SPECIMENOrdering Facility: [facility] Address: [address] [place] [address] Performed By: #### 2 4321-2, 2777-1 ####HERRERA LABORATORYCLIA [id number] [place] [address] [place] Creatinine [Mass/Vol] 3.64 mg/dL High 0.73-1.22 [facility] Comment on above: Order Comment: Demarco harris Type: BLOOD SPECIMENOrdering Facility: [facility] Address: [address] [place] [address] Performed By: #### 2 4321-2, 277-1 ####MERIDEN LABORATORYCLIA [id number] [address] eGFRcr SerPlBld CKD-EPI 2020 17 mL/min/1.73m??? Low >=60 [facility] Comment on above: Order Comment: Demarco harris Type: BLOOD SPECIMENOrdering Facility: [facility] Address: [address] [place] [address] Result Comment: Nancy mated Glomerular Filtration Rate [...] actual GFR. Performed By: #### 2 4321-2, 2777-1 ####HERRERA LABORATORYCLIA [id number] [address] [place] Glucose [Mass/Vol] 143 mg/dL High 74-99 [facility] Comment on above: Order Comment: Demarco harris Type: BLOOD SPECIMENOrdering Facility: [facility] Address: [address] [place] [address] Result Comment: The [employer] (ADA) provides guidance for cutoff [...] Standards of Medical Care in Diabetes 2016, [place] [employer]. Diabetes Care. 2016.39(Suppl 1). Performed By: #### 2 4321-2, 2776- ####HERRERA LABORATORYCLIA [id number] [place] [address] [place] Potassium [Moles/Vol] 3.8 mmol/L Normal 3.7-5.1 [facility] Comment on above: Order Comment: Demarco harris Type: BLOOD SPECIMENOrdering Facility: [facility] Address: [address] [place] [address] Performed By: #### 2 4320-07, 2776-06 ####HERRERA LABORATORYCLIA [id number] [place] [address] [place] Sodium [Moles/Vol] 138 mmol/L Normal 136-144 [facility] Comment on above: Order Comment: Demarco harris Type: BLOOD SPECIMENOrdering Facility: [facility] Address: [address] [place] [address] Performed By: #### 2 4320-2, 2776-06 ####HERRERA LABORATORYCLIA [id number] [place] [address] [place] Urea nitrogen [Mass/Vol] 38 mg/dL High 9-24 [facility] Comment on above: Order Comment: Demarco harris Type: BLOOD SPECIMENOrdering Facility: [facility] Address: [facility] [place] [address] Performed By: #### 2 432-2, 2776-06 ####HERRERA LABORATORYCLIA [id number] [place] [address] [place] CBC W Auto Differential pane l (Bld)on 04-19-2025 Basophils (Bld) [#/Vol] 10*3/uL Normal <0.11 [facility] Comment on above: Order Comment: Speci men Type: BLOOD SPECIMENOrdering Facility: [facility] Address: [address] [place] [address] Performed By: #### 5 7021-8 ####HERRERA LABORATORYCLIA [id number] [address] [place] Basophils/100 WBC (Bld) 0.4 % Normal [facility] Comment on above: Order Comment: Speci men Type: BLOOD SPECIMENOrdering Facility: [facility] Address: [address] [place] [address] Performed By: #### 5 7021-8 ####HERRERA LABORATORYCLIA [id number] [address] [place] Differential cell count method Nom (Bld) Auto Normal [facility] Comment on above: Order Comment: Speci men Type: BLOOD SPECIMENOrdering Facility: [facility] Address: [address] [place] [address] Performed By: #### 5 7021-8 ####HERRERA LABORATORYCLIA [id number] [place] [address] [place] Eosinophils (Bld) [#/Vol] 0.07 10*3/uL Normal <0.46 [facility] Comment on above: Order Comment: Speci men Type: BLOOD SPECIMENOrdering Facility: [facility] Address: [address] [place] [address] Performed By: #### 5 7021-8 ####HERRERA LABORATORYCLIA [id number] [address] Eosinophils/100 WBC (Bld) 1.4 % Normal [facility] Comment on above: Order Comment: Speci men Type: BLOOD SPECIMENOrdering Facility: [facility] Address: [address] [place] [address] Performed By: #### 5 7021-8 ####HERRERA LABORATORYCLIA [id number] [place] [address] [place] Erythrocyte distribution width (RBC) [Ratio] 15.5 % High 11.5-15.0 [facility] Comment on above: Order Comment: Speci men Type: BLOOD SPECIMENOrdering Facility: [facility] Address: [address] [place] [address] Performed By: #### 5 7021-8 ####HERRERA LABORATORYCLIA [id number] [place] [address] [place] Hematocrit (Bld) [Volume fraction] 27.7 % Low 39.0-51.0 [facility] Comment on above: Order Comment: Speci men Type: BLOOD SPECIMENOrdering Facility: [facility] Address: [address] [place] [address] Performed By: #### 5 7021-8 ####HERRERA LABORATORYCLIA [id number] [address] [place] Hemoglobin (Bld) [Mass/Vol] 9.2 g/dL Low 13.0-17.0 [facility] Comment on above: Order Comment: Speci men Type: BLOOD SPECIMENOrdering Facility: [facility] Address: [address] [place] [address] Performed By: #### 5 7021-8 ####HERRERA LABORATORYCLIA [id number] [address] [place] Immature granulocytes (Bld) [#/Vol] 0.03 10*3/uL Normal <0.10 [facility] Comment on above: Order Comment: Speci men Type: BLOOD SPECIMENOrdering Facility: [facility] Address: [address] [place] [address] Performed By: #### 5 7021-8 ####HERRERA LABORATORYCLIA [id number] [address] [place] Immature granulocytes/100 WBC (Bld) 0.6 % Normal [facility] Comment on above: Order Comment: Speci men Type: BLOOD SPECIMENOrdering Facility: [facility] Address: [address] [place] [address] Performed By: #### 5 7021-8 ####HERRERA LABORATORYCLIA [id number] [place] [address] [place] Lymphocytes (Bld) [#/Vol] 2.22 10*3/uL Normal 1.00-4.00 [facility] Comment on above: Order Comment: Speci men Type: BLOOD SPECIMENOrdering Facility: [facility] Address: [address] [place] [address] Performed By: #### 5 7021-8 ####HERRERA LABORATORYCLIA [id number] [address] Lymphocytes/100 WBC (Bld) 44.9 % Normal [facility] Comment on above: Order Comment: Speci men Type: BLOOD SPECIMENOrdering Facility: [facility] Address: [address] [place] [address] Performed By: #### 5 7021-8 ####HERRERA LABORATORYCLIA [id number] [address] [place] MCH (RBC) [Entitic mass] 30.1 pg Normal 26.0-34.0 [facility] Comment on above: Order Comment: Speci men Type: BLOOD SPECIMENOrdering Facility: [facility] Address: [address] [place] [address] Performed By: #### 5 7021-8 ####HERRERA LABORATORYCLIA [id number] [address] [place] MCHC (RBC) [Mass/Vol] 33.2 g/dL Normal 30.5-36.0 [facility] Comment on above: Order Comment: Speci men Type: BLOOD SPECIMENOrdering Facility: [facility] Address: [address] [place] [address] Performed By: #### 5 7021-8 ####HERRERA LABORATORYCLIA [id number] [address] [place] MCV (RBC) [Entitic vol] 90.5 fL Normal 80.0-100.0 [facility] Comment on above: Order Comment: Speci men Type: BLOOD SPECIMENOrdering Facility: [facility] Address: [address] [place] [address] Performed By: #### 5 7021-8 ####HERRERA LABORATORYCLIA [id number] [place] [address] [place] Monocytes (Bld) [#/Vol] 0.63 10*3/uL Normal <0.87 [facility] Comment on above: Order Comment: Speci men Type: BLOOD SPECIMENOrdering Facility: [facility] Address: [address] [place] [address] Performed By: #### 5 7021-8 ####HERRERA LABORATORYCLIA [id number] [place] [address] [place] Monocytes/100 WBC (Bld) 12.8 % Normal [facility] Comment on above: Order Comment: Speci men Type: BLOOD SPECIMENOrdering Facility: [facility] Address: [address] [place] [address] Performed By: #### 5 7021-8 ####HERRERA LABORATORYCLIA [id number] [place] [address] [place] Neutrophils (Bld) [#/Vol] 1.97 10*3/uL Normal 1.45-7.50 [facility] Comment on above: Order Comment: Speci men Type: BLOOD SPECIMENOrdering Facility: [facility] Address: [address] [place] [address] Performed By: #### 5 7021-8 ####HERRERA LABORATORYCLIA [id number] [place] [address] [place] Neutrophils/100 WBC (Bld) 39.9 % Normal [facility] Comment on above: Order Comment: Speci men Type: BLOOD SPECIMENOrdering Facility: [facility] Address: [address] [place] [address] Performed By: #### 5 7021-8 ####HERRERA LABORATORYCLIA [id number] [place] [address] [place] Nucleated RBC (Bld) [#/Vol] 10*3/uL Normal <0.01 [facility] Comment on above: Order Comment: Speci men Type: BLOOD SPECIMENOrdering Facility: [facility] Address: [address] [place] [address] Performed By: #### 5 7021-8 ####HERRERA LABORATORYCLIA [id number] [place] [address] [place] Nucleated RBC/100 WBC (Bld) [Ratio] 0.0 /100 WBC Normal [facility] Comment on above: Order Comment: Speci men Type: BLOOD SPECIMENOrdering Facility: [facility] Address: [address] [place] [address] Performed By: #### 5 7021-8 ####HERRERA LABORATORYCLIA [id number] [place] [address] [place] Platelet mean volume (Bld) [Entitic vol] 10.3 fL Normal 9.0-12.7 [facility] Comment on above: Order Comment: Speci men Type: BLOOD SPECIMENOrdering Facility: [facility] Address: [address] [place] [address] Performed By: #### 5 7021-8 ####HERRERA LABORATORYCLIA [id number] [place] [address] [place] Platelets (Bld) [#/Vol] 90 10*3/uL Low 150-[address] [facility] Comment on above: Order Comment: Speci men Type: BLOOD SPECIMENOrdering Facility: [facility] Address: [address] [place] [address] Result Comment: No c lot detected. Performed By: #### 5 7021-8 ####HERRERA LABORATORYCLIA [id number] [address] [place] RBC (Bld) [#/Vol] 3.06 10*6/uL Low 4.20-6.00 [facility] Comment on above: Order Comment: Speci men Type: BLOOD SPECIMENOrdering Facility: [facility] Address: [address] [place] [address] Performed By: #### 5 7021-8 ####HERRERA LABORATORYCLIA [id number] [place] [address] [place] WBC (Bld) [#/Vol] 4.94 10*3/uL Normal 3.70-11.00 [facility] Comment on above: Order Comment: Speci men Type: BLOOD SPECIMENOrdering Facility: [facility] Address: [address] [place], [place] [address] Performed By: #### 5 7021-8 ####MERIDEN LABORATORYCLIA [id number] [address] [place] CONSULT PROGon 04-19-2025 CONSULT PROG Normal [facility] Phosphate SerPl-mCncon 04-19 Phosphate [Mass/Vol] 3.7 mg/dL Normal 2.7-4.8 [facility] Comment on above: Order Comment: Speci men Type: BLOOD SPECIMENOrdering Facility: [facility] Address: [facility] [place] [address] Performed By: #### 2 4321-2, 2777-1 ####HERRERA LABORATORYCLIA [id number] [address] STATES OF [facility] Basic metabolic 2000 panelon 04-18-2025 Anion gap [Moles/Vol] 13 mmol/L Normal 8-15 [facility] Comment on above: Order Comment: Speci men Type: BLOOD SPECIMENOrdering Facility: [facility] Address: [facility] [place] [address] Performed By: #### 2 777-1, 09685-3 ####MERIDEN LABORATORYCLIA [id number] [place] [address] [place] Calcium [Mass/Vol] 8.6 mg/dL Normal 8.5-10.2 [facility] Comment on above: Order Comment: Speci men Type: BLOOD SPECIMENOrdering Facility: [facility] Address: [facility] [place] [address] Performed By: #### 2 777-1, 85863-9 ####HERRERA LABORATORYCLIA [id number] [place] [address] [place] Chloride [Moles/Vol] 101 mmol/L Normal 98-107 [facility] Comment on above: Order Comment: Speci men Type: BLOOD SPECIMENOrdering Facility: [facility] Address: [address] [place] [address] Performed By: #### 2 777-1, 74626-4 ####HERRERA LABORATORYCLIA [id number] [place] [address] [place] CO2 [Moles/Vol] 23 mmol/L Normal 22-30 [facility] Comment on above: Order Comment: Demarco harris Type: BLOOD SPECIMENOrdering Facility: [facility] Address: [address] [place] [address] Performed By: #### 2 777-1, 79865-9 ####MERIDEN LABORATORYCLIA [id number] [place] [address] [place] Creatinine [Mass/Vol] 4.78 mg/dL High 0.73-1.22 [facility] Comment on above: Order Comment: Demarco kimberly Type: BLOOD SPECIMENOrdering Facility: [facility] Address: [address] [place] [address] Performed By: #### 2 777-1, 95263-6 ####HERRERA LABORATORYCLIA [id number] [address] eGFRcr SerPlBld CKD-EPI 2020 12 mL/min/1.73m??? Low >=60 [facility] Comment on above: Order Comment: Demarco harris Type: BLOOD SPECIMENOrdering Facility: [facility] Address: [address] [place] [address] Result Comment: Nancy mated Glomerular Filtration Rate [...] actual GFR. Performed By: #### 2 777-1, 28121-3 ####HERRERA LABORATORYCLIA [id number] [place] [id number] [place] Glucose [Mass/Vol] 164 mg/dL High 74-99 [facility] Comment on above: Order Comment: Pemajoao harris Type: BLOOD SPECIMENOrdering Facility: [facility] Address: [address] [place] [address] Result Comment: The [place] [employer] (ADA) provides guidance for cutoff [...] Standards of Medical Care in Diabetes 2016, [place] [employer]. Diabetes Care. 2016.39(Suppl 1). Performed By: #### 2 777-1, 95216-2 ####HERRERA LABORATORYCLIA [id number] [address] STATES OF [facility] Potassium [Moles/Vol] 3.9 mmol/L Normal 3.7-5.1 [facility] Comment on above: Order Comment: Demarco harris Type: BLOOD SPECIMENOrdering Facility: [facility] Address: [address] [place] [address] Performed By: #### 2 777-1, 99866-3 ####HERRERA LABORATORYCLIA [id number] [address] STATES [facility] Sodium [Moles/Vol] 137 mmol/L Normal 136-144 [facility] Comment on above: Order Comment: Demarco harris Type: BLOOD SPECIMENOrdering Facility: [facility] Address: [address] [place] [address] Performed By: #### 2 777-1, 37960-4 ####HERRERA LABORATORYCLIA [id number] [address] STATES [facility] Urea nitrogen [Mass/Vol] 56 mg/dL High 9-24 [facility] Comment on above: Order Comment: Demarco harris Type: BLOOD SPECIMENOrdering Facility: [facility] Address: [address] [place] [address] Performed By: #### 2 777-1, 66459-9 ####HERRERA LABORATORYCLIA [id number] [address] [place] CBC W Auto Differential pane l (Bld)on 04-18-2025 Basophils (Bld) [#/Vol] 0.04 10*3/uL Normal <0.11 [facility] Comment on above: Order Comment: Speci men Type: BLOOD SPECIMENOrdering Facility: [facility] Address: [address] [place] [address] Performed By: #### 5 7021-8 ####HERRERA LABORATORYCLIA [id number] [place] [address] [place] Basophils/100 WBC (Bld) 0.8 % Normal [facility] Comment on above: Order Comment: Speci men Type: BLOOD SPECIMENOrdering Facility: [facility] Address: [address] [place] [address] Performed By: #### 5 7021-8 ####HERRERA LABORATORYCLIA [id number] [place] [address] [place] Differential cell count method Nom (Bld) Auto Normal [facility] Comment on above: Order Comment: Speci men Type: BLOOD SPECIMENOrdering Facility: [facility] Address: [address] [place] [address] Performed By: #### 5 7021-8 ####HERRERA LABORATORYCLIA [id number] [place] [address] [place] Eosinophils (Bld) [#/Vol] 0.08 10*3/uL Normal <0.46 [facility] Comment on above: Order Comment: Speci men Type: BLOOD SPECIMENOrdering Facility: [facility] Address: [address] [place] [address] Performed By: #### 5 7021-8 ####HERRERA LABORATORYCLIA [id number] [place] [address] [place] Eosinophils/100 WBC (Bld) 1.6 % Normal [facility] Comment on above: Order Comment: Speci men Type: BLOOD SPECIMENOrdering Facility: [facility] Address: [address] [place] [address] Performed By: #### 5 7021-8 ####HERRERA LABORATORYCLIA [id number] [place] [address] [place] Erythrocyte distribution width (RBC) [Ratio] 15.7 % High 11.5-15.0 [facility] Comment on above: Order Comment: Speci men Type: BLOOD SPECIMENOrdering Facility: [facility] Address: [address] [place] [address] Performed By: #### 5 7021-8 ####HERRERA LABORATORYCLIA [id number] [place] [address] [place] Hematocrit (Bld) [Volume fraction] 29.4 % Low 39.0-51.0 [facility] Comment on above: Order Comment: Speci men Type: BLOOD SPECIMENOrdering Facility: [facility] Address: [address] [place] [address] Performed By: #### 5 7021-8 ####HERRERA LABORATORYCLIA [id number] [place] [address] [place] Hemoglobin (Bld) [Mass/Vol] 10.0 g/dL Low 13.0-17.0 [facility] Comment on above: Order Comment: Speci men Type: BLOOD SPECIMENOrdering Facility: [facility] Address: [address] [place] [address] Performed By: #### 5 7021-8 ####HERRERA LABORATORYCLIA [id number] [place] [address] [place] Immature granulocytes (Bld) [#/Vol] 0.03 10*3/uL Normal <0.10 [facility] Comment on above: Order Comment: Speci men Type: BLOOD SPECIMENOrdering Facility: [facility] Address: [address] [place] [address] Performed By: #### 5 7021-8 ####HERRERA LABORATORYCLIA [id number] [place] [address] [place] Immature granulocytes/100 WBC (Bld) 0.6 % Normal [facility] Comment on above: Order Comment: Speci men Type: BLOOD SPECIMENOrdering Facility: [facility] Address: [address] [place] [address] Performed By: #### 5 7021-8 ####HERRERA LABORATORYCLIA [id number] [place] [address] [place] Lymphocytes (Bld) [#/Vol] 2.31 10*3/uL Normal 1.00-4.00 [facility] Comment on above: Order Comment: Speci men Type: BLOOD SPECIMENOrdering Facility: [facility] Address: [address] [place] [address] Performed By: #### 5 7021-8 ####HERRERA LABORATORYCLIA [id number] [address] Lymphocytes/100 WBC (Bld) 46.6 % Normal [facility] Comment on above: Order Comment: Speci men Type: BLOOD SPECIMENOrdering Facility: [facility] Address: [address] [place] [address] Performed By: #### 5 7021-8 ####HERRERA LABORATORYCLIA [id number] [address] [place] [facility] MCH (RBC) [Entitic mass] 30.3 pg Normal 26.0-34.0 [facility] Comment on above: Order Comment: Speci men Type: BLOOD SPECIMENOrdering Facility: [facility] Address: [address] [place] [address] Performed By: #### 5 7021-8 ####HERRERA LABORATORYCLIA [id number] [address] MCHC (RBC) [Mass/Vol] 34.0 g/dL Normal 30.5-36.0 [facility] Comment on above: Order Comment: Speci men Type: BLOOD SPECIMENOrdering Facility: [facility] Address: [address] [place] [address] Performed By: #### 5 7021-8 ####HERRERA LABORATORYCLIA [id number] [address] [place] [facility] MCV (RBC) [Entitic vol] 89.1 fL Normal 80.0-100.[address] [facility] Comment on above: Order Comment: Speci men Type: BLOOD SPECIMENOrdering Facility: [facility] Address: [address] [place] [address] Performed By: #### 5 7021-8 ####HERRERA LABORATORYCLIA [id number] [place] [address] [place] Monocytes (Bld) [#/Vol] 0.40 10*3/uL Normal <0.87 [facility] Comment on above: Order Comment: Speci men Type: BLOOD SPECIMENOrdering Facility: [facility] Address: [address] [place] [address] Performed By: #### 5 7021-8 ####HERRERA LABORATORYCLIA [id number] [place] [address] [place] Monocytes/100 WBC (Bld) 8.1 % Normal [facility] Comment on above: Order Comment: Speci men Type: BLOOD SPECIMENOrdering Facility: [facility] Address: [address] [place] [address] Performed By: #### 5 7021-8 ####HERRERA LABORATORYCLIA [id number] [place] [address] [place] Neutrophils (Bld) [#/Vol] 2.10 10*3/uL Normal 1.45-7.50 [facility] Comment on above: Order Comment: Speci men Type: BLOOD SPECIMENOrdering Facility: [facility] Address: [address] [place] [address] Performed By: #### 5 7021-8 ####HERRERA LABORATORYCLIA [id number] [place] [id number] [place] Neutrophils/100 WBC (Bld) 42.3 % Normal [facility] Comment on above: Order Comment: Speci men Type: BLOOD SPECIMENOrdering Facility: [facility] Address: [address] [place] [address] Performed By: #### 5 7021-8 ####HERRERA LABORATORYCLIA [id number] [place] [id number] [place] Nucleated RBC (Bld) [#/Vol] 10*3/uL Normal <0.01 [facility] Comment on above: Order Comment: Speci men Type: BLOOD SPECIMENOrdering Facility: [facility] Address: [address] [place] [address] Performed By: #### 5 7021-8 ####HERRERA LABORATORYCLIA [id number] [place] [address] [place] Nucleated RBC/100 WBC (Bld) [Ratio] 0.0 /100 WBC Normal [facility] Comment on above: Order Comment: Speci men Type: BLOOD SPECIMENOrdering Facility: [facility] Address: [address] [place] [address] Performed By: #### 5 7021-8 ####HERRERA LABORATORYCLIA [id number] [place] [address] [place] Platelet mean volume (Bld) [Entitic vol] 10.4 fL Normal 9.0-12.7 [facility] Comment on above: Order Comment: Speci men Type: BLOOD SPECIMENOrdering Facility: [facility] Address: [address] [place] [address] Performed By: #### 5 7021-8 ####HERRERA LABORATORYCLIA [id number] [place] [address] [place] Platelets (Bld) [#/Vol] 82 10*3/uL Low 150-[address] [facility] Comment on above: Order Comment: Speci men Type: BLOOD SPECIMENOrdering Facility: [facility] Address: [address] [place] [address] Performed By: #### 5 7021-8 ####HERRERA LABORATORYCLIA [id number] [place] [id number] [place] RBC (Bld) [#/Vol] 3.30 10*6/uL Low 4.20-6.00 [facility] Comment on above: Order Comment: Speci men Type: BLOOD SPECIMENOrdering Facility: [facility] Address: [address] [place] [address] Performed By: #### 5 7021-8 ####HERRERA LABORATORYCLIA [id number] [place] [address] [place] WBC (Bld) [#/Vol] 4.96 10*3/uL Normal 3.70-11.00 [facility] Comment on above: Order Comment: Speci men Type: BLOOD SPECIMENOrdering Facility: [facility] Address: [address] [place] [address] Performed By: #### 5 7021-8 ####HERRERA LABORATORYCLIA [id number] [address] CONSULT PROGon 04-18-2025 CONSULT PROG Normal [facility] Phosphate SerPl-mCncon 04-18 Phosphate [Mass/Vol] 4.7 mg/dL Normal 2.7-4.8 [facility] Comment on above: Order Comment: Speci men Type: BLOOD SPECIMENOrdering Facility: [facility] Address: [address] [place] [address] Performed By: #### 2 777-1, 46576-3 ####MERIDEN LABORATORYCLIA [id number] [address] [place] CASE MANAGEMon 04-17-2025 CASE MANAGEM Normal [facility] CBC W Auto Differential pane l (Bld)on 04-17-2025 Basophils (Bld) [#/Vol] 0.03 10*3/uL Normal <0.11 [facility] Comment on above: Order Comment: Speci men Type: BLOOD SPECIMENOrdering Facility: [facility] Address: [address] [place] [address] Performed By: #### 5 7021-8 ####MERIDEN LABORATORYCLIA [id number] [address] Basophils/100 WBC (Bld) 0.6 % Normal [facility] Comment on above: Order Comment: Speci men Type: BLOOD SPECIMENOrdering Facility: [facility] Address: [address] [place] [address] Performed By: #### 5 7021-8 ####MERIDEN LABORATORYCLIA [id number] [address] [place] Differential cell count method Nom (Bld) Auto Normal [facility] Comment on above: Order Comment: Speci men Type: BLOOD SPECIMENOrdering Facility: [facility] Address: [address] [place] [address] Performed By: #### 5 7021-8 ####MERIDEN LABORATORYCLIA [id number] [place] [address] [place] Eosinophils (Bld) [#/Vol] 0.06 10*3/uL Normal <0.46 [facility] Comment on above: Order Comment: Speci men Type: BLOOD SPECIMENOrdering Facility: [facility] Address: [address] [place] [address] Performed By: #### 5 7021-8 ####HERRERA LABORATORYCLIA [id number] [address] [place] Eosinophils/100 WBC (Bld) 1.2 % Normal [facility] Comment on above: Order Comment: Speci men Type: BLOOD SPECIMENOrdering Facility: [facility] Address: [address] [place] [address] Performed By: #### 5 7021-8 ####HERRERA LABORATORYCLIA [id number] [address] [place] Erythrocyte distribution width (RBC) [Ratio] 15.8 % High 11.5-15.0 [facility] Comment on above: Order Comment: Speci men Type: BLOOD SPECIMENOrdering Facility: [facility] Address: [address] [place] [address] Performed By: #### 5 7021-8 ####HERRERA LABORATORYCLIA [id number] [address] [place] Hematocrit (Bld) [Volume fraction] 27.7 % Low 39.0-51.0 [facility] Comment on above: Order Comment: Speci men Type: BLOOD SPECIMENOrdering Facility: [facility] Address: [address] [place] [address] Performed By: #### 5 7021-8 ####HERRERA LABORATORYCLIA [id number] [address] [place] Hemoglobin (Bld) [Mass/Vol] 9.3 g/dL Low 13.0-17.0 [facility] Comment on above: Order Comment: Speci men Type: BLOOD SPECIMENOrdering Facility: [facility] Address: [address] [place] [address] Performed By: #### 5 7021-8 ####HERRERA LABORATORYCLIA [id number] [address] [place] Immature granulocytes (Bld) [#/Vol] 0.04 10*3/uL Normal <0.10 [facility] Comment on above: Order Comment: Speci men Type: BLOOD SPECIMENOrdering Facility: [facility] Address: [address] [place] [address] Performed By: #### 5 7021-8 ####HERRERA LABORATORYCLIA [id number] [address] [place] [facility] Immature granulocytes/100 WBC (Bld) 0.8 % Normal [facility] Comment on above: Order Comment: Speci men Type: BLOOD SPECIMENOrdering Facility: [facility] Address: [address] [place] [address] Performed By: #### 5 7021-8 ####HERRERA LABORATORYCLIA [id number] [address] Lymphocytes (Bld) [#/Vol] 2.45 10*3/uL Normal 1.00-4.00 [facility] Comment on above: Order Comment: Speci men Type: BLOOD SPECIMENOrdering Facility: [facility] Address: [address] [place] [address] Performed By: #### 5 7021-8 ####HERRERA LABORATORYCLIA [id number] [address] Lymphocytes/100 WBC (Bld) 48.6 % Normal [facility] Comment on above: Order Comment: Speci men Type: BLOOD SPECIMENOrdering Facility: [facility] Address: [address] [place] [address] Performed By: #### 5 7021-8 ####HERRERA LABORATORYCLIA [id number] [address] [place] [facility] MCH (RBC) [Entitic mass] 29.8 pg Normal 26.0-34.0 [facility] Comment on above: Order Comment: Speci men Type: BLOOD SPECIMENOrdering Facility: [facility] Address: [address] [place] [address] Performed By: #### 5 7021-8 ####HERRERA LABORATORYCLIA [id number] [address] [place] MCHC (RBC) [Mass/Vol] 33.6 g/dL Normal 30.5-36.0 [facility] Comment on above: Order Comment: Speci men Type: BLOOD SPECIMENOrdering Facility: [facility] Address: [address] [place] [address] Performed By: #### 5 7021-8 ####HERRERA LABORATORYCLIA [id number] [place] [address] [place] MCV (RBC) [Entitic vol] 88.8 fL Normal 80.0-100.0 [facility] Comment on above: Order Comment: Speci men Type: BLOOD SPECIMENOrdering Facility: [facility] Address: [address] [place] [address] Performed By: #### 5 7021-8 ####HERRERA LABORATORYCLIA [id number] [place] [address] [place] Monocytes (Bld) [#/Vol] 0.49 10*3/uL Normal <0.87 [facility] Comment on above: Order Comment: Speci men Type: BLOOD SPECIMENOrdering Facility: [facility] Address: [address] [place] [address] Performed By: #### 5 7021-8 ####HERRERA LABORATORYCLIA [id number] [address] [place] Monocytes/100 WBC (Bld) 9.7 % Normal [facility] Comment on above: Order Comment: Speci men Type: BLOOD SPECIMENOrdering Facility: [facility] Address: [address] [place] [address] Performed By: #### 5 7021-8 ####HERRERA LABORATORYCLIA [id number] [place] [address] [place] Neutrophils (Bld) [#/Vol] 1.97 10*3/uL Normal 1.45-7.50 [facility] Comment on above: Order Comment: Speci men Type: BLOOD SPECIMENOrdering Facility: [facility] Address: [address] [place] [address] Performed By: #### 5 7021-8 ####HERRERA LABORATORYCLIA [id number] [place] [address] [place] Neutrophils/100 WBC (Bld) 39.1 % Normal [facility] Comment on above: Order Comment: Speci men Type: BLOOD SPECIMENOrdering Facility: [facility] Address: [address] [place] [address] Performed By: #### 5 7021-8 ####HERRERA LABORATORYCLIA [id number] [place] [address] [place] Nucleated RBC (Bld) [#/Vol] 10*3/uL Normal <0.01 [facility] Comment on above: Order Comment: Speci men Type: BLOOD SPECIMENOrdering Facility: [facility] Address: [address] [place] [address] Performed By: #### 5 7021-8 ####HERRERA LABORATORYCLIA [id number] [place] [address] [place] Nucleated RBC/100 WBC (Bld) [Ratio] 0.0 /100 WBC Normal [facility] Comment on above: Order Comment: Speci men Type: BLOOD SPECIMENOrdering Facility: [facility] Address: [address] [place] [address] Performed By: #### 5 7021-8 ####HERRERA LABORATORYCLIA [id number] [place] [address] [place] Platelet mean volume (Bld) [Entitic vol] 10.7 fL Normal 9.0-12.7 [facility] Comment on above: Order Comment: Speci men Type: BLOOD SPECIMENOrdering Facility: [facility] Address: [address] [place] [address] Performed By: #### 5 7021-8 ####HERRERA LABORATORYCLIA [id number] [place] [address] [place] Platelets (Bld) [#/Vol] 73 10*3/uL Low 150-[address] [facility] Comment on above: Order Comment: Speci men Type: BLOOD SPECIMENOrdering Facility: [facility] Address: [address] [place] [address] Performed By: #### 5 7021-8 ####HERRERA LABORATORYCLIA [id number] [place] [id number] [facility] [place] RBC (Bld) [#/Vol] 3.12 10*6/uL Low 4.20-6.00 [facility] Comment on above: Order Comment: Speci men Type: BLOOD SPECIMENOrdering Facility: [facility] Address: [address] [place] [address] Performed By: #### 5 7021-8 ####MERIDEN LABORATORYCLIA [id number] [place] [id number] [place] WBC (Bld) [#/Vol] 5.04 10*3/uL Normal 3.70-11.00 [facility] Comment on above: Order Comment: Speci men Type: BLOOD SPECIMENOrdering Facility: [facility] Address: [address] [place] [address] Performed By: #### 5 7021-8 ####MERIDEN LABORATORYCLIA [id number] [address] CONSULT [facility]OGon 04-17-20[facility] Phosphate SerPl-mCncon 04-17 Phosphate [Mass/Vol] 3.5 mg/dL Normal 2.7-4.8 [facility] Comment on above: Order Comment: Speci men Type: BLOOD SPECIMENOrdering Facility: [facility] Address: [address] [place] [address] Performed By: #### 2 777-1 ####MERIDEN LABORATORYCLIA [id number] [place] [id number] [facility] [place] THERAPY NTon 04-17-2025 THERAPY NT [facility] Basic metabolic 2000 panelon 04-16-2025 Anion gap [Moles/Vol] 14 mmol/L Normal 8-15 [facility] Comment on above: Order Comment: Speci men Type: BLOOD SPECIMENOrdering Facility: [facility] Address: [address] [place] [address] Performed By: #### 2 4321-2 ####MERIDEN LABORATORYCLIA [id number] [place] [id number] [place] Calcium [Mass/Vol] 8.2 mg/dL Low 8.5-10.2 [facility] Comment on above: Order Comment: Speci men Type: BLOOD SPECIMENOrdering Facility: [facility] Address: [address] [place] [address] Performed By: #### 2 4321-2 ####HERRERA LABORATORYCLIA [id number] [address] STATES OF [facility] Chloride [Moles/Vol] 102 mmol/L Normal 98-107 [facility] Comment on above: Order Comment: Speci men Type: BLOOD SPECIMENOrdering Facility: [facility] Address: [address] [place] [address] Performed By: #### 2 4321-2 ####HERRERA LABORATORYCLIA [id number] [address] [place] CO2 [Moles/Vol] 20 mmol/L Low 22-30 [facility] Comment on above: Order Comment: Speci men Type: BLOOD SPECIMENOrdering Facility: [facility] Address: [address] [place] [address] Performed By: #### 2 4321-2 ####HERRERA LABORATORYCLIA [id number] [place] [address] [place] Creatinine [Mass/Vol] 4.51 mg/dL High 0.73-1.22 [facility] Comment on above: Order Comment: Speci men Type: BLOOD SPECIMENOrdering Facility: [facility] Address: [address] [place] [address] Performed By: #### 2 4321-2 ####HERRERA LABORATORYCLIA [id number] [address] [place] eGFRcr SerPlBld CKD-EPI 2020 13 mL/min/1.73m??? Low >=60 [facility] Comment on above: Order Comment: Speci men Type: BLOOD SPECIMENOrdering Facility: [facility] Address: [address] [place] [address] Result Comment: Nancy mated Glomerular Filtration Rate [...] actual GFR. Performed By: #### 2 4321-2 ####HERRERA LABORATORYCLIA [id number] [place] [id number] [place] Glucose [Mass/Vol] 167 mg/dL High 74-99 [facility] Comment on above: Order Comment: Demarco harris Type: BLOOD SPECIMENOrdering Facility: [facility] Address: [address] [place] [address] Result Comment: The [place] [employer] (ADA) provides guidance for cutoff [...] Standards of Medical Care in Diabetes 2016, [place] [employer]. Diabetes Care. 2016.39(Suppl 1). Performed By: #### 2 4321-2 ####MERIDEN LABORATORYCLIA [id number] [place] [id number] [place] Potassium [Moles/Vol] 3.7 mmol/L Normal 3.7-5.1 [facility] Comment on above: Order Comment: Demarco harris Type: BLOOD SPECIMENOrdering Facility: [facility] Address: [address] [place] [id number] Performed By: #### 2 4321-2 ####HERRERA LABORATORYCLIA [id number] [place] [id number] [place] Sodium [Moles/Vol] 136 mmol/L Normal 136-144 [facility] Comment on above: Order Comment: Demarco harris Type: BLOOD SPECIMENOrdering Facility: [facility] Address: [address] [place] [id number] Performed By: #### 2 4321-2 ####HERRERA LABORATORYCLIA [id number] [place] [address] [place] Urea nitrogen [Mass/Vol] 60 mg/dL High 9-24 [facility] Comment on above: Order Comment: Speci men Type: BLOOD SPECIMENOrdering Facility: [facility] Address: [address] [place] [address] Performed By: #### 2 4321-2 ####HERRERA LABORATORYCLIA [id number] [place] [id number] [place] CASE MANAGEMon 04-16-2025 CASE MANAGEM Normal [facility] CBC W Auto Differential pane l (Bld)on 04-16-2025 Basophils (Bld) [#/Vol] 0.03 10*3/uL Normal <0.11 [facility] Comment on above: Order Comment: Speci men Type: BLOOD SPECIMENOrdering Facility: [facility] Address: [address] [place] [address] Performed By: #### 5 7021-8 ####HERRERA LABORATORYCLIA [id number] [place] [id number] [place] Basophils/100 WBC (Bld) 0.6 % Normal [facility] Comment on above: Order Comment: Speci men Type: BLOOD SPECIMENOrdering Facility: [facility] Address: [address] [place] [address] Performed By: #### 5 7021-8 ####HERRERA LABORATORYCLIA [id number] [place] [address] [place] Differential cell count method Nom (Bld) Auto Normal [facility] Comment on above: Order Comment: Speci men Type: BLOOD SPECIMENOrdering Facility: [facility] Address: [address] [place] [address] Performed By: #### 5 7021-8 ####HERRERA LABORATORYCLIA [id number] [place] [address] [place] Eosinophils (Bld) [#/Vol] 0.06 10*3/uL Normal <0.46 [facility] Comment on above: Order Comment: Speci men Type: BLOOD SPECIMENOrdering Facility: [facility] Address: [address] [place], [place] [address] Performed By: #### 5 7021-8 ####HERRERA LABORATORYCLIA [id number] [address] [place] Eosinophils/100 WBC (Bld) 1.2 % Normal [facility] Comment on above: Order Comment: Speci men Type: BLOOD SPECIMENOrdering Facility: [facility] Address: [address] [place] [address] Performed By: #### 5 7021-8 ####HERRERA LABORATORYCLIA [id number] [address] [place] Erythrocyte distribution width (RBC) [Ratio] 15.7 % High 11.5-15.0 [facility] Comment on above: Order Comment: Speci men Type: BLOOD SPECIMENOrdering Facility: [facility] Address: [address] [place] [address] Performed By: #### 5 7021-8 ####HERRERA LABORATORYCLIA [id number] [address] [place] Hematocrit (Bld) [Volume fraction] 28.6 % Low 39.0-51.0 [facility] Comment on above: Order Comment: Speci men Type: BLOOD SPECIMENOrdering Facility: [facility] Address: [address] [place] [address] Performed By: #### 5 7021-8 ####HERRERA LABORATORYCLIA [id number] [address] [place] Hemoglobin (Bld) [Mass/Vol] 9.6 g/dL Low 13.0-17.0 [facility] Comment on above: Order Comment: Speci men Type: BLOOD SPECIMENOrdering Facility: [facility] Address: [address] [place] [address] Performed By: #### 5 7021-8 ####HERRERA LABORATORYCLIA [id number] [address] Immature granulocytes (Bld) [#/Vol] 0.03 10*3/uL Normal <0.10 [facility] Comment on above: Order Comment: Speci men Type: BLOOD SPECIMENOrdering Facility: [facility] Address: [address] [place] [address] Performed By: #### 5 7021-8 ####HERRERA LABORATORYCLIA [id number] [address] [place] Immature granulocytes/100 WBC (Bld) 0.6 % Normal [facility] Comment on above: Order Comment: Speci men Type: BLOOD SPECIMENOrdering Facility: [facility] Address: [address] [place] [address] Performed By: #### 5 7021-8 ####HERRERA LABORATORYCLIA [id number] [place] [address] [place] Lymphocytes (Bld) [#/Vol] 2.50 10*3/uL Normal 1.00-4.00 [facility] Comment on above: Order Comment: Speci men Type: BLOOD SPECIMENOrdering Facility: [facility] Address: [address] [place] [address] Performed By: #### 5 7021-8 ####HERRERA LABORATORYCLIA [id number] [address] Lymphocytes/100 WBC (Bld) 48.4 % Normal [facility] Comment on above: Order Comment: Speci men Type: BLOOD SPECIMENOrdering Facility: [facility] Address: [address] [place] [address] Performed By: #### 5 7021-8 ####HERRERA LABORATORYCLIA [id number] [address] [place] MCH (RBC) [Entitic mass] 29.2 pg Normal 26.0-34.0 [facility] Comment on above: Order Comment: Speci men Type: BLOOD SPECIMENOrdering Facility: [facility] Address: [address] [place] [address] Performed By: #### 5 7021-8 ####HERRERA LABORATORYCLIA [id number] [address] [place] MCHC (RBC) [Mass/Vol] 33.6 g/dL Normal 30.5-36.0 [facility] Comment on above: Order Comment: Speci men Type: BLOOD SPECIMENOrdering Facility: [facility] Address: [address] [place] [address] Performed By: #### 5 7021-8 ####HERRERA LABORATORYCLIA [id number] [place] [address] [place] MCV (RBC) [Entitic vol] 86.9 fL Normal 80.0-100.0 [facility] Comment on above: Order Comment: Speci men Type: BLOOD SPECIMENOrdering Facility: [facility] Address: [address] [place] [address] Performed By: #### 5 7021-8 ####HERRERA LABORATORYCLIA [id number] [place] [address] [place] Monocytes (Bld) [#/Vol] 0.42 10*3/uL Normal <0.87 [facility] Comment on above: Order Comment: Speci men Type: BLOOD SPECIMENOrdering Facility: [facility] Address: [address] [place] [address] Performed By: #### 5 7021-8 ####HERRERA LABORATORYCLIA [id number] [place] [address] [place] Monocytes/100 WBC (Bld) 8.1 % Normal [facility] Comment on above: Order Comment: Speci men Type: BLOOD SPECIMENOrdering Facility: [facility] Address: [address] [place] [address] Performed By: #### 5 7021-8 ####HERRERA LABORATORYCLIA [id number] [place] [address] [place] Neutrophils (Bld) [#/Vol] 2.12 10*3/uL Normal 1.45-7.50 [facility] Comment on above: Order Comment: Speci men Type: BLOOD SPECIMENOrdering Facility: [facility] Address: [address] [place] [address] Performed By: #### 5 7021-8 ####HERRERA LABORATORYCLIA [id number] [place] [address] [place] Neutrophils/100 WBC (Bld) 41.1 % Normal [facility] Comment on above: Order Comment: Speci men Type: BLOOD SPECIMENOrdering Facility: [facility] Address: [address] [place] [address] Performed By: #### 5 7021-8 ####HERRERA LABORATORYCLIA [id number] [place] [address] [place] Nucleated RBC (Bld) [#/Vol] 10*3/uL Normal <0.01 [facility] Comment on above: Order Comment: Speci men Type: BLOOD SPECIMENOrdering Facility: [facility] Address: [address] [place] [address] Performed By: #### 5 7021-8 ####HERRERA LABORATORYCLIA [id number] [place] [address] [place] Nucleated RBC/100 WBC (Bld) [Ratio] 0.0 /100 WBC Normal [facility] Comment on above: Order Comment: Speci men Type: BLOOD SPECIMENOrdering Facility: [facility] Address: [address] [place] [address] Performed By: #### 5 7021-8 ####HERRERA LABORATORYCLIA [id number] [place] [address] [place] Platelet mean volume (Bld) [Entitic vol] 10.6 fL Normal 9.0-12.7 [facility] Comment on above: Order Comment: Speci men Type: BLOOD SPECIMENOrdering Facility: [facility] Address: [address] [place] [address] Performed By: #### 5 7021-8 ####HERRERA LABORATORYCLIA [id number] [place] [address] [place] Platelets (Bld) [#/Vol] 68 10*3/uL Low 150-[address] [facility] Comment on above: Order Comment: Speci men Type: BLOOD SPECIMENOrdering Facility: [facility] Address: [address] [place] [address] Result Comment: No c lot detected. Performed By: #### 5 7021-8 ####HERRERA LABORATORYCLIA [id number] [place] [address] [place] RBC (Bld) [#/Vol] 3.29 10*6/uL Low 4.20-6.00 [facility] Comment on above: Order Comment: Speci men Type: BLOOD SPECIMENOrdering Facility: [facility] Address: [address] [place] [address] Performed By: #### 5 7021-8 ####HERRERA LABORATORYCLIA [id number] [place] [address] [place] WBC (Bld) [#/Vol] 5.16 10*3/uL Normal 3.70-11.00 [facility] Comment on above: Order Comment: Speci men Type: BLOOD SPECIMENOrdering Facility: [facility] Address: [address] [place] [address] Performed By: #### 5 7021-8 ####HERRERA LABORATORYCLIA [id number] [address] [place] CONSULT PROGon 04-16-2025 CONSULT PROG [facility] CONSULT PROG [facility] CONSULT PROG [facility] NUTRITIONon 04-16-2025 NUTRITION Normal [facility] THERAPY NTon 04-16-2025 THERAPY NT [facility] CBC W Auto Differential pane l (Bld)on 04-15-2025 Anisocytosis Ql (Bld) Present Normal [facility] Comment on above: Order Comment: Speci men Type: BLOOD SPECIMENOrdering Facility: [facility] Address: [address] [place] [address] Performed By: #### 5 7021-8 ####HERRERA LABORATORYCLIA [id number] [place] [address] [place] Basophils (Bld) [#/Vol] 0.00 10*3/uL Normal <0.11 [facility] Comment on above: Order Comment: Speci men Type: BLOOD SPECIMENOrdering Facility: [facility] Address: [address] [place] [address] Performed By: #### 5 7021-8 ####HERRERA LABORATORYCLIA [id number] [place] [address] [place] Basophils/100 WBC (Bld) 0.0 % Normal [facility] Comment on above: Order Comment: Speci men Type: BLOOD SPECIMENOrdering Facility: [facility] Address: [address] [place] [address] Performed By: #### 5 7021-8 ####HERRERA LABORATORYCLIA [id number] [address] [place] Differential cell count method Nom (Bld) Manual Normal [facility] Comment on above: Order Comment: Speci men Type: BLOOD SPECIMENOrdering Facility: [facility] Address: [address] [place] [address] Performed By: #### 5 7021-8 ####HERRERA LABORATORYCLIA [id number] [place] [address] [place] Eosinophils (Bld) [#/Vol] 0.10 10*3/uL Normal <0.46 [facility] Comment on above: Order Comment: Speci men Type: BLOOD SPECIMENOrdering Facility: [facility] Address: [address] [place] [address] Performed By: #### 5 7021-8 ####HERRERA LABORATORYCLIA [id number] [address] [place] Eosinophils/100 WBC (Bld) 2.0 % Normal [facility] Comment on above: Order Comment: Speci men Type: BLOOD SPECIMENOrdering Facility: [facility] Address: [address] [place] [address] Performed By: #### 5 7021-8 ####HERRERA LABORATORYCLIA [id number] [address] [place] Erythrocyte distribution width (RBC) [Ratio] 15.6 % High 11.5-15.0 [facility] Comment on above: Order Comment: Speci men Type: BLOOD SPECIMENOrdering Facility: [facility] Address: [address] [place] [address] Performed By: #### 5 7021-8 ####HERRERA LABORATORYCLIA [id number] [address] [place] Hematocrit (Bld) [Volume fraction] 25.9 % Low 39.0-51.0 [facility] Comment on above: Order Comment: Speci men Type: BLOOD SPECIMENOrdering Facility: [facility] Address: [address] [place] [address] Performed By: #### 5 7021-8 ####HERRERA LABORATORYCLIA [id number] [place] [address] [place] Hemoglobin (Bld) [Mass/Vol] 9.0 g/dL Low 13.0-17.0 [facility] Comment on above: Order Comment: Speci men Type: BLOOD SPECIMENOrdering Facility: [facility] Address: [address] [place] [address] Performed By: #### 5 7021-8 ####HERRERA LABORATORYCLIA [id number] [place] [address] [place] Lymphocytes (Bld) [#/Vol] 1.55 10*3/uL Normal 1.00-4.00 [facility] Comment on above: Order Comment: Speci men Type: BLOOD SPECIMENOrdering Facility: [facility] Address: [address] [place] [address] Performed By: #### 5 7021-8 ####HERRERA LABORATORYCLIA [id number] [address] [place] Lymphocytes/100 WBC (Bld) 32.0 % Normal [facility] Comment on above: Order Comment: Speci men Type: BLOOD SPECIMENOrdering Facility: [facility] Address: [address] [place] [address] Performed By: #### 5 7021-8 ####HERRERA LABORATORYCLIA [id number] [address] [place] LYMPHOMA CELL 3.0 % Normal [facility] Comment on above: Order Comment: Speci men Type: BLOOD SPECIMENOrdering Facility: [facility] Address: [address] [place] [address] Performed By: #### 5 7021-8 ####HERRERA LABORATORYCLIA [id number] [place] [address] [place] MCH (RBC) [Entitic mass] 30.2 pg Normal 26.0-34.0 [facility] Comment on above: Order Comment: Speci men Type: BLOOD SPECIMENOrdering Facility: [facility] Address: [address] [place] [address] Performed By: #### 5 7021-8 ####HERRERA LABORATORYCLIA [id number] [place] [address] [place] MCHC (RBC) [Mass/Vol] 34.7 g/dL Normal 30.5-36.0 [facility] Comment on above: Order Comment: Speci men Type: BLOOD SPECIMENOrdering Facility: [facility] Address: [address] [place] [address] Performed By: #### 5 7021-8 ####HERRERA LABORATORYCLIA [id number] [place] [address] [place] MCV (RBC) [Entitic vol] 86.9 fL Normal 80.0-100.0 [facility] Comment on above: Order Comment: Speci men Type: BLOOD SPECIMENOrdering Facility: [facility] Address: [address] [place] [address] Performed By: #### 5 7021-8 ####HERRERA LABORATORYCLIA [id number] [place] [address] [place] Monocytes (Bld) [#/Vol] 0.24 10*3/uL Normal <0.87 [facility] Comment on above: Order Comment: Speci men Type: BLOOD SPECIMENOrdering Facility: [facility] Address: [address] [place] [address] Performed By: #### 5 7021-8 ####HERRERA LABORATORYCLIA [id number] [address] [place] Monocytes/100 WBC (Bld) 5.0 % Normal [facility] Comment on above: Order Comment: Speci men Type: BLOOD SPECIMENOrdering Facility: [facility] Address: [address] [place] [address] Performed By: #### 5 7021-8 ####HERRERA LABORATORYCLIA [id number] [place] [address] [place] Neutrophils (Bld) [#/Vol] 2.80 10*3/uL Normal 1.45-7.50 [facility] Comment on above: Order Comment: Speci men Type: BLOOD SPECIMENOrdering Facility: [facility] Address: [address] [place] [address] Performed By: #### 5 7021-8 ####HERRERA LABORATORYCLIA [id number] [place] [address] [place] Neutrophils/100 WBC (Bld) 58.0 % Normal [facility] Comment on above: Order Comment: Speci men Type: BLOOD SPECIMENOrdering Facility: [facility] Address: [address] [place] [address] Performed By: #### 5 7021-8 ####HERRERA LABORATORYCLIA [id number] [place] [address] [place] Nucleated RBC (Bld) [#/Vol] 10*3/uL Normal <0.01 [facility] Comment on above: Order Comment: Speci men Type: BLOOD SPECIMENOrdering Facility: [facility] Address: [address] [place] [address] Performed By: #### 5 7021-8 ####HERRERA LABORATORYCLIA [id number] [place] [address] [place] Nucleated RBC/100 WBC (Bld) [Ratio] 0.0 /100 WBC Normal [facility] Comment on above: Order Comment: Speci men Type: BLOOD SPECIMENOrdering Facility: [facility] Address: [address] [place] [address] Performed By: #### 5 7021-8 ####HERRERA LABORATORYCLIA [id number] [place] [address] [place] Platelet mean volume (Bld) [Entitic vol] 10.7 fL Normal 9.0-12.7 [facility] Comment on above: Order Comment: Speci men Type: BLOOD SPECIMENOrdering Facility: [facility] Address: [address] [place] [address] Performed By: #### 5 7021-8 ####HERRERA LABORATORYCLIA [id number] [place] [address] [place] Platelets (Bld) [#/Vol] 72 10*3/uL Low 150-[address] [facility] Comment on above: Order Comment: Speci men Type: BLOOD SPECIMENOrdering Facility: [facility] Address: [address] [place] [address] Performed By: #### 5 7021-8 ####HERRERA LABORATORYCLIA [id number] [address] [place] Platelets Estimate (Bld) [#/Vol] Decreased Normal [facility] Comment on above: Order Comment: Speci men Type: BLOOD SPECIMENOrdering Facility: [facility] Address: [address] [place] [address] Performed By: #### 5 7021-8 ####HERRERA LABORATORYCLIA [id number] [place] [address] [place] RBC (Bld) [#/Vol] 2.98 10*6/uL Low 4.20-6.00 [facility] Comment on above: Order Comment: Speci men Type: BLOOD SPECIMENOrdering Facility: [facility] Address: [address] [place] [address] Performed By: #### 5 7021-8 ####HERRERA LABORATORYCLIA [id number] [address] RED CELL MORPH Reviewed: see result s of individual morphologies [facility] Comment on above: Order Comment: Speci men Type: BLOOD SPECIMENOrdering Facility: [facility] Address: [address] [place] [address] Performed By: #### 5 7021-8 ####HERRERA LABORATORYCLIA [id number] [address] [place] WBC (Bld) [#/Vol] 4.83 10*3/uL Normal 3.70-11.00 [facility] Comment on above: Order Comment: Speci men Type: BLOOD SPECIMENOrdering Facility: [facility] Address: [address] [place] [address] Performed By: #### 5 7021-8 ####HERRERA LABORATORYCLIA [id number] [address] [place] CONSULT PROGon 04-15-2025 CONSULT PROG Normal [facility] CONSULT PROG Normal [facility] NURSING PROGon 04-15-2025 NURSING PROG Normal [facility] NURSING PROG Normal [facility] OCCULT BLD EXAM-DIAGon 04-15 OCCULT BLD EXAM-DIAG Negative Normal [facility] Comment on above: Performed By: #### O BDX ####HERRERA LABORATORYCLIA [id number] [place] [address] [place] Renal function 2000 panelon 04-15-2025 Albumin [Mass/Vol] 2.4 g/dL Low 3.9-4.9 [facility] Comment on above: Order Comment: Speci men Type: BLOOD SPECIMENOrdering Facility: [facility] Address: [address] [place] [address] Performed By: #### 2 4362-6 ####HERRERA LABORATORYCLIA [id number] [place] [address] [place] Anion gap [Moles/Vol] 16 mmol/L High 8-15 [facility] Comment on above: Order Comment: Speci men Type: BLOOD SPECIMENOrdering Facility: [facility] Address: [address] [place] [address] Performed By: #### 2 4362-6 ####HERRERA LABORATORYCLIA [id number] [place] [address] [place] Calcium [Mass/Vol] 8.3 mg/dL Low 8.5-10.2 [facility] Comment on above: Order Comment: Speci men Type: BLOOD SPECIMENOrdering Facility: [facility] Address: [address] [place] [address] Performed By: #### 2 4362-6 ####HERRERA LABORATORYCLIA [id number] [place] [address] [place] Chloride [Moles/Vol] 104 mmol/L Normal 98-107 [facility] Comment on above: Order Comment: Speci men Type: BLOOD SPECIMENOrdering Facility: [facility] Address: [address] [place] [address] Performed By: #### 2 4362-6 ####HERRERA LABORATORYCLIA [id number] [place] [address] [place] CO2 [Moles/Vol] 16 mmol/L Low 22-30 [facility] Comment on above: Order Comment: Demarco harris Type: BLOOD SPECIMENOrdering Facility: [facility] Address: [address] [place] [address] Performed By: #### 2 4362-6 ####HERRERA LABORATORYCLIA [id number] [address] STATES OF [facility] Creatinine [Mass/Vol] 5.24 mg/dL High 0.73-1.22 [facility] Comment on above: Order Comment: Demarco kimberly Type: BLOOD SPECIMENOrdering Facility: [facility] Address: [address] [place] [address] Performed By: #### 2 4362-6 ####MERIDEN LABORATORYCLIA [id number] [address] eGFRcr SerPlBld CKD-EPI 2020 11 mL/min/1.73m??? Low >=60 [facility] Comment on above: Order Comment: Demarco harris Type: BLOOD SPECIMENOrdering Facility: [facility] Address: [address] [place] [address] Result Comment: Nancy mated Glomerular Filtration Rate [...] reflect actual GFR. Performed By: #### 2 4362-6 ####MERIDEN LABORATORYCLIA [id number] [address] Glucose [Mass/Vol] 146 mg/dL High 74-99 [facility] Comment on above: Order Comment: Pemajoao harris Type: BLOOD SPECIMENOrdering Facility: [facility] Address: [address] [place] [address] Result Comment: The [place] [employer] (ADA) provides guidance for cutoff [...] Standards of Medical Care in Diabetes 2016, [place] [employer]. Diabetes Care. 2016.39(Suppl 1). Performed By: #### 2 4362-6 ####HERRERA LABORATORYCLIA [id number] [place] [address] [place] Phosphate [Mass/Vol] 5.4 mg/dL High 2.7-4.8 [facility] Comment on above: Order Comment: Speci men Type: BLOOD SPECIMENOrdering Facility: [facility] Address: [address] [place] [address] Performed By: #### 2 4362-6 ####HERRERA LABORATORYCLIA [id number] [place] [address] [place] Potassium [Moles/Vol] 3.9 mmol/L Normal 3.7-5.1 [facility] Comment on above: Order Comment: Speci men Type: BLOOD SPECIMENOrdering Facility: [facility] Address: [address] [place] [address] Performed By: #### 2 4362-6 ####HERRERA LABORATORYCLIA [id number] [place] [address] [place] Sodium [Moles/Vol] 136 mmol/L Normal 136-144 [facility] Comment on above: Order Comment: Speci men Type: BLOOD SPECIMENOrdering Facility: [facility] Address: [address] [place] [address] Performed By: #### 2 4362-6 ####HERRERA LABORATORYCLIA [id number] [place] [address] [place] Urea nitrogen [Mass/Vol] 72 mg/dL High 9-24 [facility] Comment on above: Order Comment: ePmai men Type: BLOOD SPECIMENOrdering Facility: [facility] Address: [address] [place] [address] Performed By: #### 2 4362-6 ####HERRERA LABORATORYCLIA [id number] [address] URINALYSIS, REFLEX MICROSCOP ICon 04-15-2025 Bacteria LM.HPF (Urine sed) [#/Area] Few Abnormal None Seen [facility] Comment on above: Order Comment: Speci men Type: URINE SPECIMENOrdering Facility: [facility] Address: [address] [place] [address] Performed By: #### L [id number] ####HERRERA LABORATORYCLIA [id number] [place] [address] [place] Bilirubin Ql (U) Negative Normal Negative [facility] Comment on above: Order Comment: Speci men Type: URINE SPECIMENOrdering Facility: [facility] Address: [address] [place] [address] Performed By: #### L [id number] ####HERRERA LABORATORYCLIA [id number] [address] Clarity (Unsp spec) Cloudy Abnormal Clear [facility] Comment on above: Order Comment: Speci men Type: URINE SPECIMENOrdering Facility: [facility] Address: [address] [place] [address] Performed By: #### L [id number] ####HERRERA LABORATORYCLIA [id number] [address] Color (U) [place] Abnormal Yellow [facility] Comment on above: Order Comment: Speci men Type: URINE SPECIMENOrdering Facility: [facility] Address: [address] [place] [address] Performed By: #### L [id number] ####HERRERA LABORATORYCLIA [id number] [address] Glucose Test strip (U) [Mass/Vol] Negative Normal Negative [facility] Comment on above: Order Comment: Speci men Type: URINE SPECIMENOrdering Facility: [facility] Address: [address] [place] [address] Performed By: #### L [id number] ####HERRERA LABORATORYCLIA [id number] [address] [place] Hemoglobin Ql (U) 3+ Abnormal Negative [facility] Comment on above: Order Comment: Speci men Type: URINE SPECIMENOrdering Facility: [facility] Address: [address] [place] [address] Performed By: #### L [id number] ####HERRERA LABORATORYCLIA [id number] [place] [address] [place] Ketones Ql (U) Trace Abnormal Negative [facility] Comment on above: Order Comment: Speci men Type: URINE SPECIMENOrdering Facility: [facility] Address: [address] [place] [address] Performed By: #### L [id number] ####HERRERA LABORATORYCLIA [id number] [place] [address] [place] Leukocyte esterase Test strip Ql (U) 1+ Abnormal Negative [facility] Comment on above: Order Comment: Speci men Type: URINE SPECIMENOrdering Facility: [facility] Address: [address] [place] [address] Performed By: #### L [id number] ####HERRERA LABORATORYCLIA [id number] [place] [address] [place] Nitrite Ql (U) Negative Normal Negative [facility] Comment on above: Order Comment: Speci men Type: URINE SPECIMENOrdering Facility: [facility] Address: [address] [place] [address] Performed By: #### L [id number] ####HERRERA LABORATORYCLIA [id number] [place] [address] [place] pH (U) 6.0 [pH] Normal 5.0-8.0 [facility] Comment on above: Order Comment: Speci men Type: URINE SPECIMENOrdering Facility: [facility] Address: [address] [place] [address] Performed By: #### L [id number] ####HERRERA LABORATORYCLIA [id number] [place] [address] [place] Protein (U) [Mass/Vol] Normal [facility] Comment on above: Order Comment: Speci men Type: URINE SPECIMENOrdering Facility: [facility] Address: [address] [place] [address] Result Comment: Visi ble blood causes falsely elevated results for analyte Protein. Due to this limitation, Protein will not be reported for patients whose urine contains visible blood. Performed By: #### L [id number] ####HERRERA LABORATORYCLIA [id number] [address] STATES [facility] RBC LM.HPF (Urine sed) [#/Area] /[HPF] Abnormal 0-3 /HPF [facility] Comment on above: Order Comment: Speci men Type: URINE SPECIMENOrdering Facility: [facility] Address: [address] [place] [address] Performed By: #### L [id number] ####MERIDEN LABORATORYCLIA [id number] [address] Specific gravity (U) [Rel density] 1.020 Normal 1.005-1.03 0 [facility] Comment on above: Order Comment: Speci men Type: URINE SPECIMENOrdering Facility: [facility] Address: [address] [place] [address] Performed By: #### L [id number] ####HERRERA LABORATORYCLIA [id number] [address] Urobilinogen Ql (U) 0.2 EU/dL Normal 0.2-1.0 EU/dL [facility] Comment on above: Order Comment: Speci men Type: URINE SPECIMENOrdering Facility: [facility] Address: [address] [place] [address] Performed By: #### L [id number] ####HERRERA LABORATORYCLIA [id number] [address] [place] [facility] WBC LM.HPF (Urine sed) [#/Area] 6-10 /HPF Abnormal 0-5 /HPF [facility] Comment on above: Order Comment: Speci men Type: URINE SPECIMENOrdering Facility: [facility] Address: [address] [place] [address] Performed By: #### L [id number] ####HERRERA LABORATORYCLIA [id number] [address] [place] ALLIED HEALTHon 04-14-2025 ALLIED HEALTH Normal [facility] Basic metabolic 2000 panelon 04-14-2025 Anion gap [Moles/Vol] 16 mmol/L High 8-15 [facility] Comment on above: Order Comment: Speci men Type: BLOOD SPECIMENOrdering Facility: [facility] Address: [address] [place] [address] Performed By: #### 2 4321-2 ####HERRERA LABORATORYCLIA [id number] [place] [address] [place] Calcium [Mass/Vol] 8.1 mg/dL Low 8.5-10.2 [facility] Comment on above: Order Comment: Speci men Type: BLOOD SPECIMENOrdering Facility: [facility] Address: [address] [place] [address] Performed By: #### 2 4321-2 ####HERRERA LABORATORYCLIA [id number] [place] [address] [place] Chloride [Moles/Vol] 102 mmol/L Normal 98-107 [facility] Comment on above: Order Comment: Speci men Type: BLOOD SPECIMENOrdering Facility: [facility] Address: [address] [place] [address] Performed By: #### 2 4321-2 ####HERRERA LABORATORYCLIA [id number] [place] [address] [place] CO2 [Moles/Vol] 15 mmol/L Low 22-30 [facility] Comment on above: Order Comment: Speci men Type: BLOOD SPECIMENOrdering Facility: [facility] Address: [address] [place] [address] Performed By: #### 2 4321-2 ####HERRERA LABORATORYCLIA [id number] [place] [id number] [place] Creatinine [Mass/Vol] 4.63 mg/dL High 0.73-1.22 [facility] Comment on above: Order Comment: Speci men Type: BLOOD SPECIMENOrdering Facility: [facility] Address: [address] [place] [address] Performed By: #### 2 4321-2 ####HERRERA LABORATORYCLIA [id number] [address] [place] eGFRcr SerPlBld CKD-EPI 2020 12 mL/min/1.73m??? Low >=60 [facility] Comment on above: Order Comment: Demarco harris Type: BLOOD SPECIMENOrdering Facility: [facility] Address: [address] [place] [address] Result Comment: Nancy mated Glomerular Filtration Rate [...] actual GFR. Performed By: #### 2 4321-2 ####HERRERA LABORATORYCLIA [id number] [place] [address] [place] Glucose [Mass/Vol] 160 mg/dL High 74-99 [facility] Comment on above: Order Comment: Demarco harris Type: BLOOD SPECIMENOrdering Facility: [facility] Address: [address] [place] [address] Result Comment: The [employer] (ADA) provides guidance for cutoff [...] Standards of Medical Care in Diabetes 2016, [employer]. Diabetes Care. 2016.39(Suppl 1). Performed By: #### 2 4321-2 ####HERRERA LABORATORYCLIA [id number] [place] [address] [place] Potassium [Moles/Vol] 4.1 mmol/L Normal 3.7-5.1 [facility] Comment on above: Order Comment: Demarco harris Type: BLOOD SPECIMENOrdering Facility: [facility] Address: [address] [place] [address] Performed By: #### 2 4321-2 ####HERRERA LABORATORYCLIA [id number] [place] [address] [place] Sodium [Moles/Vol] 133 mmol/L Low 136-144 [facility] Comment on above: Order Comment: Speci men Type: BLOOD SPECIMENOrdering Facility: [facility] Address: [address] [place] [address] Performed By: #### 2 4321-2 ####HERRERA LABORATORYCLIA [id number] [place] [address] [place] Urea nitrogen [Mass/Vol] 68 mg/dL High 9-24 [facility] Comment on above: Order Comment: Speci men Type: BLOOD SPECIMENOrdering Facility: [facility] Address: [address] [place] [address] Performed By: #### 2 4321-2 ####HERRERA LABORATORYCLIA [id number] [place] [address] [place] CASE MANAGEMon 04-14-2025 CASE MANAGEM Normal [facility] CBC W Auto Differential pane l (Bld)on 04-14-2025 Anisocytosis Ql (Bld) Present Normal [facility] Comment on above: Order Comment: Speci men Type: BLOOD SPECIMENOrdering Facility: [facility] Address: [address] [place] [address] Performed By: #### 5 7021-8 ####HERRERA LABORATORYCLIA [id number] [place] [address] [place] Basophils (Bld) [#/Vol] 0.00 10*3/uL Normal <0.11 [facility] Comment on above: Order Comment: Speci men Type: BLOOD SPECIMENOrdering Facility: [facility] Address: [address] [place] [address] Performed By: #### 5 7021-8 ####HERRERA LABORATORYCLIA [id number] [place] [address] [place] Basophils/100 WBC (Bld) 0.0 % Normal [facility] Comment on above: Order Comment: Speci men Type: BLOOD SPECIMENOrdering Facility: [facility] Address: [address] [place] [address] Performed By: #### 5 7021-8 ####HERRERA LABORATORYCLIA [id number] [address] Differential cell count method Nom (Bld) Manual Normal [facility] Comment on above: Order Comment: Speci men Type: BLOOD SPECIMENOrdering Facility: [facility] Address: [address] [place] [address] Performed By: #### 5 7021-8 ####HERRERA LABORATORYCLIA [id number] [place] [address] [place] Eosinophils (Bld) [#/Vol] 0.00 10*3/uL Normal <0.46 [facility] Comment on above: Order Comment: Speci men Type: BLOOD SPECIMENOrdering Facility: [facility] Address: [address] [place] [address] Performed By: #### 5 7021-8 ####HERRERA LABORATORYCLIA [id number] [address] [place] Eosinophils/100 WBC (Bld) 0.0 % Normal [facility] Comment on above: Order Comment: Speci men Type: BLOOD SPECIMENOrdering Facility: [facility] Address: [address] [place] [address] Performed By: #### 5 7021-8 ####HERRERA LABORATORYCLIA [id number] [address] [place] Erythrocyte distribution width (RBC) [Ratio] 16.3 % High 11.5-15.0 [facility] Comment on above: Order Comment: Speci men Type: BLOOD SPECIMENOrdering Facility: [facility] Address: [address] [place] [address] Performed By: #### 5 7021-8 ####HERRERA LABORATORYCLIA [id number] [address] [place] Hematocrit (Bld) [Volume fraction] 20.2 % Low 39.0-51.0 [facility] Comment on above: Order Comment: Speci men Type: BLOOD SPECIMENOrdering Facility: [facility] Address: [address] [place] [address] Performed By: #### 5 7021-8 ####HERRERA LABORATORYCLIA [id number] [place] [address] [place] Hemoglobin (Bld) [Mass/Vol] 6.8 g/dL Low 13.0-17.0 [facility] Comment on above: Order Comment: Speci men Type: BLOOD SPECIMENOrdering Facility: [facility] Address: [address] [place] [address] Performed By: #### 5 7021-8 ####HERRERA LABORATORYCLIA [id number] [place] [address] [place] Lymphocytes (Bld) [#/Vol] 2.17 10*3/uL Normal 1.00-4.00 [facility] Comment on above: Order Comment: Speci men Type: BLOOD SPECIMENOrdering Facility: [facility] Address: [address] [place] [address] Performed By: #### 5 7021-8 ####HERRERA LABORATORYCLIA [id number] [address] [place] Lymphocytes/100 WBC (Bld) 42.0 % Normal [facility] Comment on above: Order Comment: Speci men Type: BLOOD SPECIMENOrdering Facility: [facility] Address: [address] [place] [address] Performed By: #### 5 7021-8 ####HERRERA LABORATORYCLIA [id number] [address] LYMPHOMA CELL 4.0 % Normal [facility] Comment on above: Order Comment: Speci men Type: BLOOD SPECIMENOrdering Facility: [facility] Address: [address] [place] [address] Performed By: #### 5 7021-8 ####HERRERA LABORATORYCLIA [id number] [place] [address] [place] MCH (RBC) [Entitic mass] 30.4 pg Normal 26.0-34.0 [facility] Comment on above: Order Comment: Speci men Type: BLOOD SPECIMENOrdering Facility: [facility] Address: [address] [place] [address] Performed By: #### 5 7021-8 ####HERRERA LABORATORYCLIA [id number] [place] [address] [place] MCHC (RBC) [Mass/Vol] 33.7 g/dL Normal 30.5-36.0 [facility] Comment on above: Order Comment: Speci men Type: BLOOD SPECIMENOrdering Facility: [facility] Address: [address] [place] [address] Performed By: #### 5 7021-8 ####HERRERA LABORATORYCLIA [id number] [place] [address] [place] MCV (RBC) [Entitic vol] 90.2 fL Normal 80.0-100.0 [facility] Comment on above: Order Comment: Speci men Type: BLOOD SPECIMENOrdering Facility: [facility] Address: [address] [place] [address] Performed By: #### 5 7021-8 ####HERRERA LABORATORYCLIA [id number] [place] [address] [place] Monocytes (Bld) [#/Vol] 0.05 10*3/uL Normal <0.87 [facility] Comment on above: Order Comment: Speci men Type: BLOOD SPECIMENOrdering Facility: [facility] Address: [address] [place] [address] Performed By: #### 5 7021-8 ####HERRERA LABORATORYCLIA [id number] [address] [place] Monocytes/100 WBC (Bld) 1.0 % Normal [facility] Comment on above: Order Comment: Speci men Type: BLOOD SPECIMENOrdering Facility: [facility] Address: [address] [place] [address] Performed By: #### 5 7021-8 ####HERRERA LABORATORYCLIA [id number] [place] [address] [place] Neutrophils (Bld) [#/Vol] 2.74 10*3/uL Normal 1.45-7.50 [facility] Comment on above: Order Comment: Speci men Type: BLOOD SPECIMENOrdering Facility: [facility] Address: [address] [place] [address] Performed By: #### 5 7021-8 ####HERRERA LABORATORYCLIA [id number] [address] Neutrophils/100 WBC (Bld) 53.0 % Normal [facility] Comment on above: Order Comment: Speci men Type: BLOOD SPECIMENOrdering Facility: [facility] Address: [address] [place] [address] Performed By: #### 5 7021-8 ####HERRERA LABORATORYCLIA [id number] [address] [place] Nucleated RBC (Bld) [#/Vol] 10*3/uL Normal <0.01 [facility] Comment on above: Order Comment: Speci men Type: BLOOD SPECIMENOrdering Facility: [facility] Address: [address] [place] [address] Performed By: #### 5 7021-8 ####HERRERA LABORATORYCLIA [id number] [address] Nucleated RBC/100 WBC (Bld) [Ratio] 0.0 /100 WBC Normal [facility] Comment on above: Order Comment: Speci men Type: BLOOD SPECIMENOrdering Facility: [facility] Address: [address] [place] [address] Performed By: #### 5 7021-8 ####HERRERA LABORATORYCLIA [id number] [place] [address] [place] Ovalocytes LM Ql (Bld) Few Normal [facility] Comment on above: Order Comment: Speci men Type: BLOOD SPECIMENOrdering Facility: [facility] Address: [address] [place] [address] Performed By: #### 5 7021-8 ####HERRERA LABORATORYCLIA [id number] [place] [address] [place] Platelet mean volume (Bld) [Entitic vol] 10.8 fL Normal 9.0-12.7 [facility] Comment on above: Order Comment: Speci men Type: BLOOD SPECIMENOrdering Facility: [facility] Address: [address] [place] [address] Performed By: #### 5 7021-8 ####HERRERA LABORATORYCLIA [id number] [place] [address] [place] Platelets (Bld) [#/Vol] 79 10*3/uL Low 150-[address] [facility] Comment on above: Order Comment: Speci men Type: BLOOD SPECIMENOrdering Facility: [facility] Address: [address] [place] [address] Performed By: #### 5 7021-8 ####HERRERA LABORATORYCLIA [id number] [place] [address] [place] [facility] [place] Platelets Estimate (Bld) [#/Vol] Decreased Normal [facility] Comment on above: Order Comment: Speci men Type: BLOOD SPECIMENOrdering Facility: [facility] Address: [address] [place] [address] Performed By: #### 5 7021-8 ####HERRERA LABORATORYCLIA [id number] [place] [address] [place] RBC (Bld) [#/Vol] 2.24 10*6/uL Low 4.20-6.00 [facility] Comment on above: Order Comment: Speci men Type: BLOOD SPECIMENOrdering Facility: [facility] Address: [address] [place] [address] Performed By: #### 5 7021-8 ####HERRERA LABORATORYCLIA [id number] [address] [place] RED CELL MORPH Reviewed: see result s of individual morphologies Normal [facility] Comment on above: Order Comment: Speci men Type: BLOOD SPECIMENOrdering Facility: [facility] Address: [address] [place] [address] Performed By: #### 5 7021-8 ####HERRERA LABORATORYCLIA [id number] [place] [address] [place] WBC (Bld) [#/Vol] 5.17 10*3/uL Normal 3.70-11.00 [facility] Comment on above: Order Comment: Speci men Type: BLOOD SPECIMENOrdering Facility: [facility] Address: [address] [place] [address] Performed By: #### 5 7021-8 ####MERIDEN LABORATORYCLIA [id number] [place] [address] [place] CONSULT PROGon 04-14-2025 CONSULT PROG Normal [facility] CONSULT PROG Normal [facility] HBV surface Ag Ser Qlon 11-0 HBV surface Ag Ql (S) Negative Normal Negative [facility] Comment on above: Order Comment: Speci men Type: BLOOD SPECIMENOrdering Facility: [facility] Address: [address] [place] [address] Performed By: #### 5 195-3 ####[facility] LABCLIA [id number] [place] [address] [place] NM RENAL FLOW/FXN W PHARMon 04-14-2025 NM RENAL FLOW/FXN W PHARM Normal [facility] NUTRITIONon 04-14-2025 NUTRITION Normal [facility] ABO AND RH ONLYon 04-13-2025 ABO A Normal [facility] Comment on above: Order Comment: Speci men Type: BLOOD SPECIMENOrdering Facility: [facility] Address: [address] [place] [address] Performed By: #### SALVADOR [id number] ####[facility] BLOOD BANKCLIA [id number] [place] [address] [place]#### TSCR ####[facility] BLOOD BANKCLIA [id number] [place] [address] [place] [facility] BLOOD BANKCLIA [id number] [place] [address] [place] Rh Nom (Bld) Invalid result [facility] Comment on above: Order Comment: Speci men Type: BLOOD SPECIMENOrdering Facility: [facility] Address: [address] [place] [address] Performed By: #### SALVADOR [id number] ####[facility] BLOOD BANKCLIA [id number] [place] [address] [place]#### TSCR ####[facility] BLOOD BANKCLIA [id number] [address] BLOOD BANKCLIA [id number] [place], [place] [address] [place] [address] OF [facility] ALLIED HEALTHon 04-13-2025 ALLIED HEALTH [facility] ANTIBODY WORKUP(2)on 025 ADDITIONAL SPECIMENS Received in lab [facility] Comment on above: Order Comment: Speci men Type: BLOOD SPECIMENOrdering Facility: [facility] Address: [address] [place] [address] Performed By: #### W KUP2 ####[facility] BLOOD BANKCLIA [id number] [address] BLOOD BANK COMMENTon 025 BLOOD BANK COMMENT See Comment [facility] Comment on above: Order Comment: Speci men Type: BLOOD SPECIMENOrdering Facility: [facility] Address: [address] [place] [address] Result Comment: anti body ID not required. Last Antibody ID performed on 04-05-25. Performed By: #### Oscar COTA [id number] ####[facility] BLOOD BANKCLIA [id number] [address] OF [facility]#### TSCR ####[facility] BLOOD BANKCLIA [id number] [address] BLOOD BANKIA [id number] [place], [place] [id number] [place] [address] [place] BRIEF OP NOTon 04-13-2025 BRIEF OP NOT [facility] CASE MANAGEMon 04-13-2025 CASE MANAGEM [facility] CBC W Auto Differential pane l (Bld)on 04-13-2025 Anisocytosis Ql (Bld) Present Normal [facility] Comment on above: Order Comment: Speci men Type: BLOOD SPECIMENOrdering Facility: [facility] Address: [address] [place] [address] Performed By: #### 5 7021-8 ####MERIDEN LABORATORYCLIA [id number] [address] [place] Basophils (Bld) [#/Vol] 0.05 10*3/uL Normal <0.11 [facility] Comment on above: Order Comment: Speci men Type: BLOOD SPECIMENOrdering Facility: [facility] Address: [address] [place] [address] Performed By: #### 5 7021-8 ####HERRERA LABORATORYCLIA [id number] [address] [place] Basophils/100 WBC (Bld) 1.0 % Normal [facility] Comment on above: Order Comment: Speci men Type: BLOOD SPECIMENOrdering Facility: [facility] Address: [address] [place] [address] Performed By: #### 5 7021-8 ####HERRERA LABORATORYCLIA [id number] [address] Differential cell count method Nom (Bld) Manual Normal [facility] Comment on above: Order Comment: Speci men Type: BLOOD SPECIMENOrdering Facility: [facility] Address: [address] [place] [address] Performed By: #### 5 7021-8 ####HERRERA LABORATORYCLIA [id number] [address] [place] Eosinophils (Bld) [#/Vol] 0.00 10*3/uL Normal <0.46 [facility] Comment on above: Order Comment: Speci men Type: BLOOD SPECIMENOrdering Facility: [facility] Address: [address] [place] [address] Performed By: #### 5 7021-8 ####HERRERA LABORATORYCLIA [id number] [address] Eosinophils/100 WBC (Bld) 0.0 % Normal [facility] Comment on above: Order Comment: Speci men Type: BLOOD SPECIMENOrdering Facility: [facility] Address: [address] [place] [address] Performed By: #### 5 7021-8 ####HERRERA LABORATORYCLIA [id number] [address] [place] Erythrocyte distribution width (RBC) [Ratio] 16.5 % High 11.5-15.0 [facility] Comment on above: Order Comment: Speci men Type: BLOOD SPECIMENOrdering Facility: [facility] Address: [address] [place] [address] Performed By: #### 5 7021-8 ####HERRERA LABORATORYCLIA [id number] [address] [place] Hematocrit (Bld) [Volume fraction] 20.7 % Low 39.0-51.0 [facility] Comment on above: Order Comment: Speci men Type: BLOOD SPECIMENOrdering Facility: [facility] Address: [address] [place] [address] Performed By: #### 5 7021-8 ####HRERERA LABORATORYCLIA [id number] [address] [place] Hemoglobin (Bld) [Mass/Vol] 6.7 g/dL Low 13.0-17.0 [facility] Comment on above: Order Comment: Speci men Type: BLOOD SPECIMENOrdering Facility: [facility] Address: [address] [place] [address] Performed By: #### 5 7021-8 ####HERRERA LABORATORYCLIA [id number] [place] [address] [place] Lymphocytes (Bld) [#/Vol] 2.04 10*3/uL Normal 1.00-4.00 [facility] Comment on above: Order Comment: Speci men Type: BLOOD SPECIMENOrdering Facility: [facility] Address: [address] [place] [address] Performed By: #### 5 7021-8 ####HERRERA LABORATORYCLIA [id number] [address] [place] Lymphocytes/100 WBC (Bld) 42.0 % Normal [facility] Comment on above: Order Comment: Speci men Type: BLOOD SPECIMENOrdering Facility: [facility] Address: [address] [place] [address] Performed By: #### 5 7021-8 ####HERRERA LABORATORYCLIA [id number] [address] [place] LYMPHOMA CELL 4.0 % Normal [facility] Comment on above: Order Comment: Speci men Type: BLOOD SPECIMENOrdering Facility: [facility] Address: [address] [place] [address] Performed By: #### 5 7021-8 ####HERRERA LABORATORYCLIA [id number] [address] [place] MCH (RBC) [Entitic mass] 29.0 pg Normal 26.0-34.0 [facility] Comment on above: Order Comment: Speci men Type: BLOOD SPECIMENOrdering Facility: [facility] Address: [address] [place] [address] Performed By: #### 5 7021-8 ####HERRERA LABORATORYCLIA [id number] [address] [place] MCHC (RBC) [Mass/Vol] 32.4 g/dL Normal 30.5-36.0 [facility] Comment on above: Order Comment: Speci men Type: BLOOD SPECIMENOrdering Facility: [facility] Address: [address] [place] [address] Performed By: #### 5 7021-8 ####HERRERA LABORATORYCLIA [id number] [address] MCV (RBC) [Entitic vol] 89.6 fL Normal 80.0-100.[address] [facility] Comment on above: Order Comment: Speci men Type: BLOOD SPECIMENOrdering Facility: [facility] Address: [address] [place] [address] Performed By: #### 5 7021-8 ####HERRERA LABORATORYCLIA [id number] [address] [place] Monocytes (Bld) [#/Vol] 0.05 10*3/uL Normal <0.87 [facility] Comment on above: Order Comment: Speci men Type: BLOOD SPECIMENOrdering Facility: [facility] Address: [address] [place] [address] Performed By: #### 5 7021-8 ####HERRERA LABORATORYCLIA [id number] [address] Monocytes/100 WBC (Bld) 1.0 % Normal [facility] Comment on above: Order Comment: Speci men Type: BLOOD SPECIMENOrdering Facility: [facility] Address: [address] [place] [address] Performed By: #### 5 7021-8 ####HERRERA LABORATORYCLIA [id number] [place] [address] [place] Neutrophils (Bld) [#/Vol] 2.52 10*3/uL Normal 1.45-7.50 [facility] Comment on above: Order Comment: Speci men Type: BLOOD SPECIMENOrdering Facility: [facility] Address: [address] [place] [address] Performed By: #### 5 7021-8 ####HERRERA LABORATORYCLIA [id number] [address] Neutrophils/100 WBC (Bld) 52.0 % Normal [facility] Comment on above: Order Comment: Speci men Type: BLOOD SPECIMENOrdering Facility: [facility] Address: [address] [place] [address] Performed By: #### 5 7021-8 ####HERRERA LABORATORYCLIA [id number] [place] [address] [place] Nucleated RBC (Bld) [#/Vol] 10*3/uL Normal <0.01 [facility] Comment on above: Order Comment: Speci men Type: BLOOD SPECIMENOrdering Facility: [facility] Address: [address] [place] [address] Performed By: #### 5 7021-8 ####HERRERA LABORATORYCLIA [id number] [place] [address] [place] Nucleated RBC/100 WBC (Bld) [Ratio] 0.0 /100 WBC Normal [facility] Comment on above: Order Comment: Speci men Type: BLOOD SPECIMENOrdering Facility: [facility] Address: [address] [place] [address] Performed By: #### 5 7021-8 ####HERRERA LABORATORYCLIA [id number] [place] [address] [place] Ovalocytes LM Ql (Bld) Few Normal [facility] Comment on above: Order Comment: Speci men Type: BLOOD SPECIMENOrdering Facility: [facility] Address: [address] [place] [address] Performed By: #### 5 7021-8 ####HERRERA LABORATORYCLIA [id number] [place] [address] [place] Platelet mean volume (Bld) [Entitic vol] 11.0 fL Normal 9.0-12.7 [facility] Comment on above: Order Comment: Speci men Type: BLOOD SPECIMENOrdering Facility: [facility] [address]: [address] [facility] [place] [address] Performed By: #### 5 7021-8 ####HERRERA LABORATORYCLIA [id number] [address] [place] Platelets (Bld) [#/Vol] 77 10*3/uL Low 150-400 [facility] Comment on above: Order Comment: Speci men Type: BLOOD SPECIMENOrdering Facility: [facility] Address: [address] [place] [address] Performed By: #### 5 7021-8 ####HERRERA LABORATORYCLIA [id number] [place] [address] [place] Platelets Estimate (Bld) [#/Vol] Decreased Normal [facility] Comment on above: Order Comment: Speci men Type: BLOOD SPECIMENOrdering Facility: [facility] Address: [address] [place] [address] Performed By: #### 5 7021-8 ####HERRERA LABORATORYCLIA [id number] [place] [address] [place] RBC (Bld) [#/Vol] 2.31 10*6/uL Low 4.20-6.00 [facility] Comment on above: Order Comment: Speci men Type: BLOOD SPECIMENOrdering Facility: [facility] Address: [address] [facility] [place] [address] Performed By: #### 5 7021-8 ####HERRERA LABORATORYCLIA [id number] [address] [facility] RED CELL MORPH Reviewed: see result s of individual morphologies Normal [facility] Comment on above: Order Comment: Speci men Type: BLOOD SPECIMENOrdering Facility: [facility] Address: [address] [place] [address] [place] [address] Performed By: #### 5 7021-8 ####HERRERA LABORATORYCLIA [id number] [address] [place] WBC (Bld) [#/Vol] 4.85 10*3/uL Normal 3.70-11.00 [facility] Comment on above: Order Comment: Speci men Type: BLOOD SPECIMENOrdering Facility: [facility] Address: [address] [place] [address] Performed By: #### 5 7021-8 ####HERRERA LABORATORYCLIA [id number] [address] OF [facility] CONSULT PROGon 04-13-2025 CONSULT PROG Normal [facility] HISTORY PHYSICALon HISTORY PHYSICAL Normal [facility] IR CVC TUNNEL W/O PORT INSER Ton 04-13-2025 IR CVC TUNNEL W/O PORT INSERT Normal [facility] Renal function 2000 panelon 04-13-2025 Albumin [Mass/Vol] 2.5 g/dL Low 3.9-4.9 [facility] Comment on above: Order Comment: Speci men Type: BLOOD SPECIMENOrdering Facility: [facility] Address: [address] [place] [address] Performed By: #### 2 4362-6 ####HERRERA LABORATORYCLIA [id number] [place] [id number] [place] Anion gap [Moles/Vol] 16 mmol/L High 8-15 [facility] Comment on above: Order Comment: Speci men Type: BLOOD SPECIMENOrdering Facility: [facility] Address: [address] [place] [address] Performed By: #### 2 4362-6 ####HERRERA LABORATORYCLIA [id number] [place] [address] [place] Calcium [Mass/Vol] 8.0 mg/dL Low 8.5-10.2 [facility] Comment on above: Order Comment: Speci men Type: BLOOD SPECIMENOrdering Facility: [facility] Address: [address] [place] [address] Performed By: #### 2 4362-6 ####HERRERA LABORATORYCLIA [id number] [address] [place] Chloride [Moles/Vol] 104 mmol/L Normal 98-107 [facility] Comment on above: Order Comment: Speci men Type: BLOOD SPECIMENOrdering Facility: [facility] Address: [address] [place] [address] Performed By: #### 2 4362-6 ####HERRERA LABORATORYCLIA [id number] [place] [address] [place] CO2 [Moles/Vol] 15 mmol/L Low 22-30 [facility] Comment on above: Order Comment: Speci men Type: BLOOD SPECIMENOrdering Facility: [facility] Address: [address] [place] [address] Performed By: #### 2 4362-6 ####HERRERA LABORATORYCLIA [id number] [address] [place] Creatinine [Mass/Vol] 5.08 mg/dL High 0.73-1.22 [facility] Comment on above: Order Comment: Speci men Type: BLOOD SPECIMENOrdering Facility: [facility] Address: [address] [place] [address] Performed By: #### 2 4362-6 ####HERRERA LABORATORYCLIA [id number] [address] [place] eGFRcr SerPlBld CKD-EPI 2020 11 mL/min/1.73m??? Low >=60 [facility] Comment on above: Order Comment: Speci men Type: BLOOD SPECIMENOrdering Facility: [facility] Address: [address] [place] [address] Result Comment: Nancy mated Glomerular Filtration Rate [...] reflect actual GFR. Performed By: #### 2 4362-6 ####HERRERA LABORATORYCLIA [id number] [place] [address] [place] Glucose [Mass/Vol] 151 mg/dL High 74-99 [facility] Comment on above: Order Comment: Demarco harris Type: BLOOD SPECIMENOrdering Facility: [facility] Address: [address] [place] [address] Result Comment: The [employer] Diabetes Association (ADA) provides guidance for cutoff [...] Standards of Medical Care in Diabetes 2016, [place] [employer]. Diabetes Care. 2016.39(Suppl 1). Performed By: #### 2 4362-6 ####HERRERA LABORATORYCLIA [id number] [place] [address] [place] Phosphate [Mass/Vol] 5.2 mg/dL High 2.7-4.8 [facility] Comment on above: Order Comment: Demarco harris Type: BLOOD SPECIMENOrdering Facility: [facility] Address: [address] [place] [address] Performed By: #### 2 4362-6 ####HERRERA LABORATORYCLIA [id number] [place] [id number] [place] Potassium [Moles/Vol] 3.9 mmol/L Normal 3.7-5.1 [facility] Comment on above: Order Comment: Demarco harris Type: BLOOD SPECIMENOrdering Facility: [facility] Address: [address] [place] [address] Performed By: #### 2 4362-6 ####HERRERA LABORATORYCLIA [id number] [address] STATES [facility] Sodium [Moles/Vol] 135 mmol/L Low 136-144 [facility] Comment on above: Order Comment: Speci men Type: BLOOD SPECIMENOrdering Facility: [facility] Address: [address] [place] [address] Performed By: #### 2 4362-6 ####HERRERA LABORATORYCLIA [id number] [place] [address] [place] Urea nitrogen [Mass/Vol] 79 mg/dL High 9-24 [facility] Comment on above: Order Comment: Speci men Type: BLOOD SPECIMENOrdering Facility: [facility] Address: [address] [place] [address] Performed By: #### 2 4362-6 ####HERRERA LABORATORYCLIA [id number] [address] OF [facility] THERAPY NTon 04-13-2025 THERAPY NT Normal [facility] THERAPY NT Normal [facility] TYPE + SCREENon 04-13-2025 ABO Invalid result Normal [facility] Comment on above: Order Comment: Speci men Type: BLOOD SPECIMENOrdering Facility: [facility] Address: [address] [place] [address] Performed By: #### SANGEETA [id number] ####[facility]ANKCLIA [id number] [address] [place]#### TSCR ####[facility] [facility] BANKCLIA [id number] [address] OF [facility] BLOOD BANKCLIA [id number] [address] Rh Nom (Bld) Positive Normal [facility] Comment on above: Order Comment: Speci men Type: BLOOD SPECIMENOrdering Facility: [facility] Address: [address] [place] [address] Performed By: #### SALV[place] [id number] ####[facility]LO[facility] BANKCLIA [id number] [address] [place]#### TSCR ####[facility] BANKCLIA [id number] [address] BLOOD BANKCLIA [id number] [address] TYPE AND SCREEN EXPIRATION 04/16/2025 23:59 Normal [facility] Comment on above: Order Comment: Speci men Type: BLOOD SPECIMENOrdering Facility: [facility] Address: [address] [place] [address] Result Comment: Danielle ected result: Previously reported as 04/16/2025 23:59 on 04/13/2025 at 5:16 PM EST. Performed By: #### A BEATA [id number] ####[facility] BLOOD BANKIA [id number] [address]#### TSCR ####[facility] BLOOD BANKIA [id number] [address] BLOOD BANKIA [id number] [address] OF [facility] US KIDNEY/BLADDERon 04-13-20 25 US KIDNEY/BLADDER Normal [facility] 25(OH)D3 SerPl-mCncon 2024 25-hydroxyvitamin D3 [Mass/Vol] 30.9 ng/mL Low 31.0-80.0 [facility] Comment on above: Order Comment: Speci men Type: BLOOD SPECIMENOrdering Facility: [facility] Address: [address] [place] [address] Result Comment: Clas sification of 25 [place] Vitamin D status:Deficiency/Insufficiency: < or = 30 ng/ml.Sufficiency/Optimal Levels: 31-80 ng/mLToxicity: > 100 ng/mL.Test performed by chemiluminescent immunoassay. Performed By: #### 1 989-3 ####[facility] LABCLIA [id number] [address] [place] CBC W Auto Differential pane l (Bld)on 04-12-2025 Anisocytosis Ql (Bld) Present Normal [facility] Comment on above: Order Comment: Speci men Type: BLOOD SPECIMENOrdering Facility: [facility] Address: [address] [place] [address] Performed By: #### 5 7021-8 ####HERRERA LABORATORYCLIA [id number] [place] [address] [place] Basophils (Bld) [#/Vol] 0.00 10*3/uL Normal <0.11 [facility] Comment on above: Order Comment: Speci men Type: BLOOD SPECIMENOrdering Facility: [facility] Address: [address] [place] [address] Performed By: #### 5 7021-8 ####HERRERA LABORATORYCLIA [id number] [address] [place] Basophils/100 WBC (Bld) 0.0 % Normal [facility] Comment on above: Order Comment: Speci men Type: BLOOD SPECIMENOrdering Facility: [facility] Address: [address] [place] [address] Performed By: #### 5 7021-8 ####HERRERA LABORATORYCLIA [id number] [place] [address] [place] Differential cell count method Nom (Bld) Manual Normal [facility] Comment on above: Order Comment: Speci men Type: BLOOD SPECIMENOrdering Facility: [facility] Address: [address] [place] [address] Performed By: #### 5 7021-8 ####HERRERA LABORATORYCLIA [id number] [place] [address] [place] Eosinophils (Bld) [#/Vol] 0.12 10*3/uL Normal <0.46 [facility] Comment on above: Order Comment: Speci men Type: BLOOD SPECIMENOrdering Facility: [facility] Address: [address] [place] [address] Performed By: #### 5 7021-8 ####HERRERA LABORATORYCLIA [id number] [place] [address] [place] Eosinophils/100 WBC (Bld) 2.0 % Normal [facility] Comment on above: Order Comment: Speci men Type: BLOOD SPECIMENOrdering Facility: [facility] Address: [address] [place] [address] Performed By: #### 5 7021-8 ####HERRERA LABORATORYCLIA [id number] [place] [address] [place] Erythrocyte distribution width (RBC) [Ratio] 16.6 % High 11.5-15.0 [facility] Comment on above: Order Comment: Speci men Type: BLOOD SPECIMENOrdering Facility: [facility] Address: [address] [place] [address] Performed By: #### 5 7021-8 ####HERRERA LABORATORYCLIA [id number] [place] [address] [place] Hematocrit (Bld) [Volume fraction] 21.7 % Low 39.0-51.0 [facility] Comment on above: Order Comment: Speci men Type: BLOOD SPECIMENOrdering Facility: [facility] Address: [address] [place] [address] Performed By: #### 5 7021-8 ####HERRERA LABORATORYCLIA [id number] [place] [address] [place] Hemoglobin (Bld) [Mass/Vol] 7.2 g/dL Low 13.0-17.0 [facility] Comment on above: Order Comment: Speci men Type: BLOOD SPECIMENOrdering Facility: [facility] Address: [address] [place] [address] Performed By: #### 5 7021-8 ####HERRERA LABORATORYCLIA [id number] [place] [address] [place] Lymphocytes (Bld) [#/Vol] 2.36 10*3/uL Normal 1.00-4.00 [facility] Comment on above: Order Comment: Speci men Type: BLOOD SPECIMENOrdering Facility: [facility] Address: [address] [place] [address] Performed By: #### 5 7021-8 ####HERRERA LABORATORYCLIA [id number] [address] [place] Lymphocytes/100 WBC (Bld) 39.0 % Normal [facility] Comment on above: Order Comment: Speci men Type: BLOOD SPECIMENOrdering Facility: [facility] Address: [address] [place] [address] Performed By: #### 5 7021-8 ####HERRERA LABORATORYCLIA [id number] [address] LYMPHOMA CELL 5.0 % Normal [facility] Comment on above: Order Comment: Speci men Type: BLOOD SPECIMENOrdering Facility: [facility] Address: [address] [place] [address] Performed By: #### 5 7021-8 ####HERRERA LABORATORYCLIA [id number] [address] MCH (RBC) [Entitic mass] 30.1 pg Normal 26.0-34.0 [facility] Comment on above: Order Comment: Speci men Type: BLOOD SPECIMENOrdering Facility: [facility] Address: [address] [place] [address] Performed By: #### 5 7021-8 ####HERRERA LABORATORYCLIA [id number] [address] MCHC (RBC) [Mass/Vol] 33.2 g/dL Normal 30.5-36.0 [facility] Comment on above: Order Comment: Speci men Type: BLOOD SPECIMENOrdering Facility: [facility] Address: [address] [place] [address] Performed By: #### 5 7021-8 ####HERRERA LABORATORYCLIA [id number] [address] MCV (RBC) [Entitic vol] 90.8 fL Normal 80.0-100.0 [facility] Comment on above: Order Comment: Speci men Type: BLOOD SPECIMENOrdering Facility: [facility] Address: [address] [place] [address] Performed By: #### 5 7021-8 ####HERRERA LABORATORYCLIA [id number] [address] Monocytes (Bld) [#/Vol] 0.36 10*3/uL Normal <0.87 [facility] Comment on above: Order Comment: Speci men Type: BLOOD SPECIMENOrdering Facility: [facility] Address: [address] [place] [address] Performed By: #### 5 7021-8 ####HERRERA LABORATORYCLIA [id number] [place] [address] [place] Monocytes/100 WBC (Bld) 6.0 % Normal [facility] Comment on above: Order Comment: Speci men Type: BLOOD SPECIMENOrdering Facility: [facility] Address: [address] [place] [address] Performed By: #### 5 7021-8 ####HERRERA LABORATORYCLIA [id number] [place] [address] [place] Neutrophils (Bld) [#/Vol] 2.90 10*3/uL Normal 1.45-7.50 [facility] Comment on above: Order Comment: Speci men Type: BLOOD SPECIMENOrdering Facility: [facility] Address: [address] [place] [address] Performed By: #### 5 7021-8 ####HERRERA LABORATORYCLIA [id number] [place] [address] [place] Neutrophils/100 WBC (Bld) 48.0 % Normal [facility] Comment on above: Order Comment: Speci men Type: BLOOD SPECIMENOrdering Facility: [facility] Address: [address] [place] [address] Performed By: #### 5 7021-8 ####HERRERA LABORATORYCLIA [id number] [place] [address] [place] Nucleated RBC (Bld) [#/Vol] 10*3/uL Normal <0.01 [facility] Comment on above: Order Comment: Speci men Type: BLOOD SPECIMENOrdering Facility: [facility] Address: [address] [place] [address] Performed By: #### 5 7021-8 ####HERRERA LABORATORYCLIA [id number] [place] [address] [place] Nucleated RBC/100 WBC (Bld) [Ratio] 0.0 /100 WBC Normal [facility] Comment on above: Order Comment: Speci men Type: BLOOD SPECIMENOrdering Facility: [facility] Address: [address] [place] [address] Performed By: #### 5 7021-8 ####HERRERA LABORATORYCLIA [id number] [place] [address] [place] Platelet mean volume (Bld) [Entitic vol] 11.5 fL Normal 9.0-12.7 [facility] Comment on above: Order Comment: Speci men Type: BLOOD SPECIMENOrdering Facility: [facility] Address: [address] [place] [address] Performed By: #### 5 7021-8 ####HERRERA LABORATORYCLIA [id number] [place] [address] [place] Platelets (Bld) [#/Vol] 74 10*3/uL Low 150-[address] [facility] Comment on above: Order Comment: Speci men Type: BLOOD SPECIMENOrdering Facility: [facility] Address: [address] [place] [address] Result Comment: No c lot detected. Performed By: #### 5 7021-8 ####HERRERA LABORATORYCLIA [id number] [place] [address] [place] Platelets Estimate (Bld) [#/Vol] Decreased Normal [facility] Comment on above: Order Comment: Speci men Type: BLOOD SPECIMENOrdering Facility: [facility] Address: [address] [place] [address] Performed By: #### 5 7021-8 ####HERRERA LABORATORYCLIA [id number] [place] [address] [place] Polychromasia LM Ql (Bld) Slight Normal [facility] Comment on above: Order Comment: Speci men Type: BLOOD SPECIMENOrdering Facility: [facility] Address: [address] [place] [address] Performed By: #### 5 7021-8 ####HERRERA LABORATORYCLIA [id number] [place] [address] [place] RBC (Bld) [#/Vol] 2.39 10*6/uL Low 4.20-6.00 [facility] Comment on above: Order Comment: Speci men Type: BLOOD SPECIMENOrdering Facility: [facility] Address: [address] [place] [address] Performed By: #### 5 7021-8 ####HERRERA LABORATORYCLIA [id number] [address] [place] Reviewed: see result s of individual morphologies Normal [facility] Comment on above: Order Comment: Speci men Type: BLOOD SPECIMENOrdering Facility: [facility] Address: [address] [place] [address] Performed By: #### 5 7021-8 ####[facility] LABORATORYCLIA [id number] [place] [address] [place] WBC (Bld) [#/Vol] 6.04 10*3/uL Normal 3.70-11.00 [facility] Comment on above: Order Comment: Speci men Type: BLOOD SPECIMENOrdering Facility: [facility] Address: [address] [place] [address] Performed By: #### 5 7021-8 ####HERRERA LABORATORYCLIA [id number] [address] [place] Creatinine Unsp time (U) [Ma ss/Vol]on 04-12-2025 Creatinine (U) [Mass/Vol] 95.4 mg/dL Normal 20.0-300.0 [facility] Comment on above: Order Comment: Speci men Type: URINE SPECIMENOrdering Facility: [facility] Address: [address] [place] [address] Performed By: #### 3 5678-2, 16369-0 ####[facility] LABCLIA [id number] [place] [address] [place] Folate SerPl-mCncon 04-12-20 25 Folate [Mass/Vol] 19.0 ng/mL Normal >4.7 [facility] Comment on above: Order Comment: Speci men Type: BLOOD SPECIMENOrdering Facility: [facility] Address: [address] [place] [address] Performed By: #### 2 284-8, 2132-9 ####HERRERA LABORATORYCLIA [id number] [place] [address] [place] Magnesium SerPl-mCncon 04-12 Magnesium [Mass/Vol] 2.1 mg/dL Normal 1.7-2.3 [facility] Comment on above: Order Comment: Speci men Type: BLOOD SPECIMENOrdering Facility: [facility] Address: [address] [place] [address] Performed By: #### 2 4362-6, ####HERRER[facility] LABORATORYCLIA [id number] [place] [id number] [place] NM LUNG VENT / PERF VQon NM LUNG VENT / PERF VQ Normal [facility] Renal function 2000 panelon 04-12-2025 Albumin [Mass/Vol] 2.4 g/dL Low 3.9-4.9 [facility] Comment on above: Order Comment: Speci men Type: BLOOD SPECIMENOrdering Facility: [facility] Address: [address] [place] [address] Performed By: #### 2 4362-6, ####HERRER[facility] LABORATORYCLIA [id number] [place] [id number] [place] Anion gap [Moles/Vol] 14 mmol/L Normal 8-15 [facility] Comment on above: Order Comment: Speci men Type: BLOOD SPECIMENOrdering Facility: [facility] Address: [address] [place] [address] Performed By: #### 2 4362-6, ####HERRERA LABORATORYCLIA [id number] [place] [id number] [place] Calcium [Mass/Vol] 8.1 mg/dL Low 8.5-10.2 [facility] Comment on above: Order Comment: Speci men Type: BLOOD SPECIMENOrdering Facility: [facility] Address: [address] [place] [address] Performed By: #### 2 4362-6, ####HERRERA LABORATORYCLIA [id number] [place] [address] [place] Chloride [Moles/Vol] 105 mmol/L Normal 98-107 [facility] Comment on above: Order Comment: Speci men Type: BLOOD SPECIMENOrdering Facility: [facility] Address: [address] [place] [address] Performed By: #### 2 4362-6, ####HERRER[facility] LABORATORYCLIA [id number] [place] [address] [place] CO2 [Moles/Vol] 16 mmol/L Low 22-30 [facility] Comment on above: Order Comment: Speci men Type: BLOOD SPECIMENOrdering Facility: [facility] Address: [address] [place] [address] Performed By: #### 2 4362-6, ####[facility] LABORATORYCLIA [id number] [place] [address] [place] Creatinine [Mass/Vol] 4.32 mg/dL High 0.73-1.22 [facility] Comment on above: Order Comment: Speci men Type: BLOOD SPECIMENOrdering Facility: [facility] Address: [address] [place] [address] Performed By: #### 2 4362-6, ####[facility] LABORATORYCLIA [id number] [place] [address] [place] eGFRcr SerPlBld CKD-EPI 2020 14 mL/min/1.73m??? Low >=60 [facility] Comment on above: Order Comment: Speci men Type: BLOOD SPECIMENOrdering Facility: [facility] Address: [address] [place] [address] Result Comment: Nancy mated Glomerular Filtration Rate [...] reflect actual GFR. Performed By: #### 2 4362-6, ####HERRERA LABORATORYCLIA [id number] [place] [address] [place] Glucose [Mass/Vol] 183 mg/dL High 74-99 [facility] Comment on above: Order Comment: Demarco kimberly Type: BLOOD SPECIMENOrdering Facility: [facility] Address: [address] [place], [place] [address] Result Comment: The [employer] (ADA) provides guidance for cutoff [...] Standards of Medical Care in Diabetes 2016, [place] [employer]. Diabetes Care. 2016.39(Suppl 1). Performed By: #### 2 4362-6, ####HERRERA LABORATORYCLIA [id number] [place] [address] [place] Phosphate [Mass/Vol] 4.5 mg/dL Normal 2.7-4.8 [facility] Comment on above: Order Comment: Demarco harris Type: BLOOD SPECIMENOrdering Facility: [facility] Address: [address] [place], [place] [address] Performed By: #### 2 4362-6, ####HERRERA LABORATORYCLIA [id number] [place] [address] [place] Potassium [Moles/Vol] 3.9 mmol/L Normal 3.7-5.1 [facility] Comment on above: Order Comment: Demarco harris Type: BLOOD SPECIMENOrdering Facility: [facility] Address: [address] [place] [address] Performed By: #### 2 4362-6, ####HERRERA LABORATORYCLIA [id number] [place] [id number] [place] Sodium [Moles/Vol] 135 mmol/L Low 136-144 [facility] Comment on above: Order Comment: Demarco kimberly Type: BLOOD SPECIMENOrdering Facility: [facility] Address: [address] [place], [place] [address] Performed By: #### 2 4362-6, ####HERRER[facility] LABORATORYCLIA [id number] [place] [address] [place] Urea nitrogen [Mass/Vol] 67 mg/dL High 9-24 [facility] [facility] Comment on above: Order Comment: Speci men Type: BLOOD SPECIMENOrdering Facility: [facility] Address: [address] [place] [address] Performed By: #### 2 4362-6, ####H[facility]ERA LABORATORYCLIA [id number] [place] [id number] [place] SEPSIS LACTATEon 04-12-2025 Lactate [Moles/Vol] 0.9 mmol/L Normal 0.5-2.0 [facility] Comment on above: Order Comment: Speci men Type: BLOOD SPECIMENOrdering Facility: [facility] Address: [address] [place] [address] Performed By: #### S LACT ####HERRERA LABORATORYCLIA [id number] [place] [address] [place] Sodium ?Tm Ur-sCncon 025 Sodium Unsp time (U) [Moles/Vol] 50 mmol/L Normal 14-216 [facility] Comment on above: Order Comment: Speci men Type: URINE SPECIMENOrdering Facility: [facility] Address: [address] [place] [address] Performed By: #### 3 5678-2, 54278-4 ####[facility] LABCLIA [id number] [place] [id number] [place] US DVT LOWER BILon 5 US DVT LOWER DIONY Normal [facility] Vit B12 SerPl-mCncon 025 Cobalamin (Vitamin B12) [Mass/Vol] pg/mL High 232-1245 [facility] Comment on above: Order Comment: Speci men Type: BLOOD SPECIMENOrdering Facility: [facility] Address: [address] [place] [address] Performed By: #### 2 284-8, 9 ####MERIDEN LABORATORYCLIA [id number] [place] [address] [place] ALLIED HEALTHon 04-11-2025 ALLIED HEALTH Normal [facility] ARTERIAL BLOOD GASESon 04-11 Base deficit (BldA) [Moles/Vol] -4 mmol/L Low -2-0 [facility] Comment on above: Order Comment: Speci men Type: ARTERIAL BLOOD SPECIMENOrdering Facility: [facility] Address: [address] [place] [address] Performed By: #### A LLBG ####[facility] RESPIRATORYCLIA [id number] [facility] RESPIRAT[facility] [id number] [address] [address] Calcium.ionized (Bld) [Mass/Vol] 1.14 mmol/L Normal 1.08-1.30 [facility] Comment on above: Order Comment: Speci men Type: ARTERIAL BLOOD SPECIMENOrdering Facility: [facility] Address: [address] [place] [address] Performed By: #### A LLBG ####[facility] RESPIRATORYCLIA [id number] [facility] RESPIRATORY [id number] [address] Carboxyhemoglobin (BldA) [Mass fraction] 2.2 % High 0.0-2.0 [facility] Comment on above: Order Comment: Speci men Type: ARTERIAL BLOOD SPECIMENOrdering Facility: [facility] Address: [address] [place], [place] [address] Result Comment: Carb oxyhemoglobin Reference Range for Smokers: 2.0-8.0% Performed By: #### A LLBG ####[facility] RESPIRATORYCLIA [id number] [facility] RESPIRATORY [id number] [address] [address] CO2 (Bld) [Partial pressure] 29 mm Hg Low 36-46 [facility] Comment on above: Order Comment: Speci men Type: ARTERIAL BLOOD SPECIMENOrdering Facility: [facility] Address: [address] [place], [place] [address] Performed By: #### A LLBG ####[facility] RESPIRATORYCLIA [id number] [facility] RESPIRATORY [id number] [address] [address] CO2 adjusted to patient's actual temperature (Bld) [Partial pressure] Normal [facility] Comment on above: Order Comment: Speci men Type: ARTERIAL BLOOD SPECIMENOrdering Facility: [facility] Address: [address] [place] [address] Performed By: #### A LLBG ####[facility] RESPIRATORYCLIA [id number] [facility]OS[facility] RESPIRATORY [id number] [address] [address] HCO3 (Bld) [Moles/Vol] 19 mmol/L Low 22-26 [facility] Comment on above: Order Comment: Speci men Type: ARTERIAL BLOOD SPECIMENOrdering Facility: [facility] Address: [address] [place] [address] Performed By: #### A LLBG ####[facility]ATORYVERMONT [facility] [id number] [facility] RESPIRATORY [id number] [address] [address] Hemoglobin (Bld) [Mass/Vol] 11.8 g/dL Low 13.0-17.0 [facility] Comment on above: Order Comment: Speci men Type: ARTERIAL BLOOD SPECIMENOrdering Facility: [facility] Address: [address] [place] [address] Performed By: #### A LLBG ####[facility]ATORYVERMONT STATE [facility] [id number] [facility]OSP[facility] RESPIRATORY [id number] [address] [address] Lactate [Moles/Vol] 0.9 mmol/L Normal 0.5-2.2 [facility] Comment on above: Order Comment: Speci men Type: ARTERIAL BLOOD SPECIMENOrdering Facility: [facility] Address: [address] [place] [address] Performed By: #### A LLBG ####[facility] [id number] [facility]OS[facility] RESPIRATORY [id number] [address] [address] Methemoglobin (Bld) [Mass fraction] % Normal 0.0-1.5 [facility] Comment on above: Order Comment: Speci men Type: ARTERIAL BLOOD SPECIMENOrdering Facility: [facility] Address: [address] [place] [address] Performed By: #### A LLBG ####[facility] [id number] [facility] RESPIRATORY [id number] [address] [address] O2 THERAPY RA=Room Air Normal [facility] Comment on above: Order Comment: Speci men Type: ARTERIAL BLOOD SPECIMENOrdering Facility: [facility] Address: [address] [place] [id number] Performed By: #### A LLBG ####[facility]IRATORYVERMONT STATE [facility] [id number] [facility]OSP[facility] RESPIRATORY [id number] [address] [address] Oxygen (Bld) [Partial pressure] 68 mm Hg Low 85-95 [facility] Comment on above: Order Comment: Speci men Type: ARTERIAL BLOOD SPECIMENOrdering Facility: [facility] Address: [address] [place] [phone] Performed By: #### A LLBG ####[place] [id number] [place] [address] RESPIRATORY [id number] [address] [address] Oxygen adjusted to patient's actual temperature (Bld) [Partial pressure] Normal [facility] Comment on above: Order Comment: Speci men Type: ARTERIAL BLOOD SPECIMENOrdering Facility: [facility] Address: [address] [place] [id number] Performed By: #### A LLBG ####[facility] [id number] HOS[facility] RESPIRATORY [id number] [address] [address] Oxyhemoglobin (BldA) [Mass fraction] 92 % Low 95-98 [facility] Comment on above: Order Comment: Speci men Type: ARTERIAL BLOOD SPECIMENOrdering Facility: [facility] Address: [address] [place] [address] Performed By: #### A LLBG ####[id number] [place] [address] RESPIRATORY [id number] [address] [address] pH (Bld) 7.43 [pH] Normal 7.35-7.45 [facility] Comment on above: Order Comment: Speci men Type: ARTERIAL BLOOD SPECIMENOrdering Facility: [facility] Address: [address] [place] [address] Performed By: #### A LLBG ####H[facility] RESPIRATORYCLIA [id number] [facility] RESPIRATORY [id number] [place] [address] pH adjusted to patient's actual temperature (Bld) Normal [facility] Comment on above: Order Comment: Speci men Type: ARTERIAL BLOOD SPECIMENOrdering Facility: [facility] Address: [address] [place] [address] Performed By: #### A LLBG ####[facility] RESPIRATORYIA [id number] [facility]OS[facility]ITAL RESPIRATORY [id number] [place] [address] PO2 / FIO2 RATIO 324 mmHg Normal >300 [facility] Comment on above: Order Comment: Speci men Type: ARTERIAL BLOOD SPECIMENOrdering Facility: [facility] Address: [address] [place] [address] Performed By: #### A LLBG ####[facility] RESPIRATORYIA [id number] [facility]OSP[facility] RESPIRATORY [id number] [place] [address] Potassium [Moles/Vol] 3.6 mmol/L Normal 3.5-5.0 [facility] Comment on above: Order Comment: Speci men Type: ARTERIAL BLOOD SPECIMENOrdering Facility: [facility] Address: [address] [place] [address] Performed By: #### A LLBG ####[facility] RESPIRATORYIA [id number] [facility]OSPITAL RESPIRATORY [id number] [place] [address] CBC W Auto Differential pane l (Bld)on 04-11-2025 Anisocytosis Ql (Bld) Present Normal [facility] Comment on above: Order Comment: Speci men Type: BLOOD SPECIMENOrdering Facility: [facility] Address: [address] [place] [address] Performed By: #### 5 7021-8 ####HERRERA LABORATORYCLIA [id number] [address] [place] Basophils (Bld) [#/Vol] 0.07 10*3/uL Normal <0.11 [facility] Comment on above: Order Comment: Speci men Type: BLOOD SPECIMENOrdering Facility: [facility] Address: [address] [place] [address] Performed By: #### 5 7021-8 ####HERRERA LABORATORYCLIA [id number] [place] [address] [place] Basophils/100 WBC (Bld) 1.0 % Normal [facility] Comment on above: Order Comment: Speci men Type: BLOOD SPECIMENOrdering Facility: [facility] Address: [address] [place] [address] Performed By: #### 5 7021-8 ####HERRERA LABORATORYCLIA [id number] [place] [address] [place] Differential cell count method Nom (Bld) Manual Normal [facility] Comment on above: Order Comment: Speci men Type: BLOOD SPECIMENOrdering Facility: [facility] Address: [address] [place] [address] Performed By: #### 5 7021-8 ####HERRER[facility] LABORATORYCLIA [id number] [place] [address] [place] Eosinophils (Bld) [#/Vol] 0.07 10*3/uL Normal <0.46 [facility] Comment on above: Order Comment: Speci men Type: BLOOD SPECIMENOrdering Facility: [facility] Address: [address] [place] [address] Performed By: #### 5 7021-8 ####HERRERA LABORATORYCLIA [id number] [place] [address] [place] Eosinophils/100 WBC (Bld) 1.0 % Normal [facility] Comment on above: Order Comment: Speci men Type: BLOOD SPECIMENOrdering Facility: [facility] Address: [address] [place] [address] Performed By: #### 5 7021-8 ####HERRERA LABORATORYCLIA [id number] [place] [address] [place] Erythrocyte distribution width (RBC) [Ratio] 16.7 % High 11.5-15.0 [facility] Comment on above: Order Comment: Speci men Type: BLOOD SPECIMENOrdering Facility: [facility] Address: [address] [place] [address] Performed By: #### 5 7021-8 ####HERRERA LABORATORYCLIA [id number] [place] [address] [place] Hematocrit (Bld) [Volume fraction] 22.6 % Low 39.0-51.0 [facility] Comment on above: Order Comment: Speci men Type: BLOOD SPECIMENOrdering Facility: [facility] Address: [address] [place] [address] Performed By: #### 5 7021-8 ####HERRERA LABORATORYCLIA [id number] [place] [address] [place] Hemoglobin (Bld) [Mass/Vol] 7.5 g/dL Low 13.0-17.0 [facility] Comment on above: Order Comment: Speci men Type: BLOOD SPECIMENOrdering Facility: [facility] Address: [address] [place] [address] Performed By: #### 5 7021-8 ####HERRERA LABORATORYCLIA [id number] [place] [address] [place] Lymphocytes (Bld) [#/Vol] 3.06 10*3/uL Normal 1.00-4.00 [facility] Comment on above: Order Comment: Speci men Type: BLOOD SPECIMENOrdering Facility: [facility] Address: [address] [place] [address] Performed By: #### 5 7021-8 ####HERRERA LABORATORYCLIA [id number] [address] [place] Lymphocytes/100 WBC (Bld) 45.0 % Normal [facility] Comment on above: Order Comment: Speci men Type: BLOOD SPECIMENOrdering Facility: [facility] Address: [address] [place] [address] Performed By: #### 5 7021-8 ####HERRERA LABORATORYCLIA [id number] [address] [place] LYMPHOMA CELL 7.0 % Normal [facility] Comment on above: Order Comment: Speci men Type: BLOOD SPECIMENOrdering Facility: [facility] Address: [address] [place] [address] Performed By: #### 5 7021-8 ####HERRERA LABORATORYCLIA [id number] [address] STATES [facility] MCH (RBC) [Entitic mass] 29.0 pg Normal 26.0-34.0 [facility] Comment on above: Order Comment: Speci men Type: BLOOD SPECIMENOrdering Facility: [facility] Address: [address] [place] [address] Performed By: #### 5 7021-8 ####HERRERA LABORATORYCLIA [id number] [address] [place] MCHC (RBC) [Mass/Vol] 33.2 g/dL Normal 30.5-36.0 [facility] Comment on above: Order Comment: Speci men Type: BLOOD SPECIMENOrdering Facility: [facility] Address: [address] [place] [address] Performed By: #### 5 7021-8 ####HERRERA LABORATORYCLIA [id number] [address] STATES [facility] MCV (RBC) [Entitic vol] 87.3 fL Normal 80.0-100.0 [facility] Comment on above: Order Comment: Speci men Type: BLOOD SPECIMENOrdering Facility: [facility] Address: [address] [place] [address] Performed By: #### 5 7021-8 ####HERRERA LABORATORYCLIA [id number] [address] [place] Monocytes (Bld) [#/Vol] 0.07 10*3/uL Normal <0.87 [facility] Comment on above: Order Comment: Speci men Type: BLOOD SPECIMENOrdering Facility: [facility] Address: [address] [place] [address] Performed By: #### 5 7021-8 ####HERRERA LABORATORYCLIA [id number] [address] Monocytes/100 WBC (Bld) 1.0 % Normal [facility] Comment on above: Order Comment: Speci men Type: BLOOD SPECIMENOrdering Facility: [facility] Address: [address] [place] [address] Performed By: #### 5 7021-8 ####HERRER[facility] LABORATORYCLIA [id number] [place] [address] [place] Neutrophils (Bld) [#/Vol] 3.06 10*3/uL Normal 1.45-7.50 [facility] Comment on above: Order Comment: Speci men Type: BLOOD SPECIMENOrdering Facility: [facility] Address: [address] [place] [address] Performed By: #### 5 7021-8 ####HERRERA LABORATORYCLIA [id number] [address] Neutrophils/100 WBC (Bld) 45.0 % Normal [facility] Comment on above: Order Comment: Speci men Type: BLOOD SPECIMENOrdering Facility: [facility] Address: [address] [place] [address] Performed By: #### 5 7021-8 ####HERRERA LABORATORYCLIA [id number] [place] [address] [place] Nucleated RBC (Bld) [#/Vol] 10*3/uL Normal <0.01 [facility] Comment on above: Order Comment: Speci men Type: BLOOD SPECIMENOrdering Facility: [facility] Address: [address] [place] [address] Performed By: #### 5 7021-8 ####HERRERA LABORATORYCLIA [id number] [address] [place] Nucleated RBC/100 WBC (Bld) [Ratio] 0.0 /100 WBC Normal [facility] Comment on above: Order Comment: Speci men Type: BLOOD SPECIMENOrdering Facility: [facility] Address: [address] [place] [address] Performed By: #### 5 7021-8 ####HERRERA LABORATORYCLIA [id number] [place] [address] [place] Ovalocytes LM Ql (Bld) Few Normal [facility] Comment on above: Order Comment: Speci men Type: BLOOD SPECIMENOrdering Facility: [facility] Address: [address] [facility] [place] [address] Performed By: #### 5 7021-8 ####HERRERA LABORATORYCLIA [id number] [place] [address] [place] Platelet mean volume (Bld) [Entitic vol] 11.4 fL Normal 9.0-12.7 [facility] Comment on above: Order Comment: Speci men Type: BLOOD SPECIMENOrdering Facility: [facility] Address: [address] [place] [address] Performed By: #### 5 7021-8 ####HERRERA LABORATORYCLIA [id number] [place] [address] [place] Platelets (Bld) [#/Vol] 79 10*3/uL Low 150-[address] [facility] Comment on above: Order Comment: Speci men Type: BLOOD SPECIMENOrdering Facility: [facility] Address: [address] [place] [address] Performed By: #### 5 7021-8 ####HERRER[facility] LABORATORYCLIA [id number] [place] [address] [place] Platelets Estimate (Bld) [#/Vol] Decreased Normal [facility] Comment on above: Order Comment: Speci men Type: BLOOD SPECIMENOrdering Facility: [facility] Address: [address] [place] [address] Performed By: #### 5 7021-8 ####HERRERA LABORATORYCLIA [id number] [place] [id number] [place] RBC (Bld) [#/Vol] 2.59 10*6/uL Low 4.20-6.00 [facility] Comment on above: Order Comment: Speci men Type: BLOOD SPECIMENOrdering Facility: [facility] Address: [address] [place] [address] Performed By: #### 5 7021-8 ####HERRER[facility] LABORATORYCLIA [id number] [place] [id number] [place] RED CELL MORPH Reviewed: see result s of individual morphologies Normal [facility] Comment on above: Order Comment: Speci men Type: BLOOD SPECIMENOrdering Facility: [facility] Address: [facility] [place] [address] Performed By: #### 5 7021-8 ####MER[facility] LABORATORYCLIA [id number] [place] [address] [place] WBC (Bld) [#/Vol] 6.80 10*3/uL Normal 3.70-11.00 [facility] Comment on above: Order Comment: Speci men Type: BLOOD SPECIMENOrdering Facility: [facility] Address: [address] [place] [address] [place] [address] Performed By: #### 5 7021-8 ####MER[facility]EN LABORATORYCLIA [id number] [address] CONSULT PROGon 04-11-2025 CONSULT PROG [facility] CT CHEST WO IVCONon 04-11-[address] CHEST WO IVCON Normal [facility] D dimer FEU PPP-mCncon 04-11 Fibrin D-dimer FEU (PPP) [Mass/Vol] 2930 ng/mL FEU High <500 [facility] Comment on above: Order Comment: Speci men Type: BLOOD SPECIMENOrdering Facility: [facility] Address: [address] [place] [address] Performed By: #### 4 8065-7 ####[facility] LABORATORYCLIA [id number] [address] [place] Ferritin SerPl-mCncon 2024 Ferritin [Mass/Vol] 2834.0 ng/mL High 30.3-565.7 [facility] Comment on above: Order Comment: Speci men Type: BLOOD SPECIMENOrdering Facility: [facility] Address: [address] [place] [address] Performed By: #### 1 9123-9, 25625-0, 3084-1, 2276-4, 22783-9 ####[facility] LABORATORYCLIA [id number] [address] OF [facility] Fibrin D-dimer FEU (PPP) [Ma ss/Vol]on 04-11-2025 D DIMER AGE-RELATED CUTOFF 750 ng/mL FEU Normal [facility] Comment on above: Order Comment: Speci men Type: BLOOD SPECIMENOrdering Facility: [facility] Address: [address] [place] [address] Performed By: #### 4 8065-7 ####MER[facility] LABORATORYCLIA [id number] [place] [address] [place] Iron and Iron binding capaci ty panelon 04-11-2025 Iron [Mass/Vol] 25 ug/dL Low 41-186 [facility] Comment on above: Order Comment: Speci men Type: BLOOD SPECIMENOrdering Facility: [facility] Address: [address] [place] [address] Performed By: #### 1 9123-9, 44083-4, 3084-1, 2276-4, 41229-9 ####[facility] LABORATORYCLIA [id number] [place] [address] [place] Iron binding capacity [Mass/Vol] 109 ug/dL Low 232-386 [facility] Comment on above: Order Comment: Speci men Type: BLOOD SPECIMENOrdering Facility: [facility] Address: [address] [place] [address] Performed By: #### 1 9123-9, 32487-2, 3084-1, 2276-4, 62054-8 ####[facility] LABORATORYCLIA [id number] [place] [id number] [place] [facility] Iron/TIBC [Molar ratio] 22.9 % Normal 15.0-57.0 [facility] Comment on above: Order Comment: Speci men Type: BLOOD SPECIMENOrdering Facility: [facility] Address: [address] [place] [address] Performed By: #### 1 9123-9, 43584-4, 3084-1, 2276-4, 60474-7 ####[facility]ID[facility] LABORATORYCLIA [id number] [place] [address] [facility] [place] Magnesium SerPl-mCncon 04-11 Magnesium [Mass/Vol] 2.2 mg/dL Normal 1.7-2.3 [facility] Comment on above: Order Comment: Speci men Type: BLOOD SPECIMENOrdering Facility: [facility] Address: [address] [place] [address] Performed By: #### 1 9123-9, 14352-5, 3084-1, 2276-4, 58198-7 ####[facility] LABORATORYCLIA [id number] [place] [address] [place] NURSING PROGon 04-11-2025 NURSING PROG Normal [facility] PTH-Intact SerPl-mCncon 11-0 Parathyrin.intact [Mass/Vol] 23 pg/mL Normal 15-65 [facility] Comment on above: Order Comment: Speci men Type: BLOOD SPECIMENOrdering Facility: [facility] Address: [address] [place] [address] Performed By: #### 2 731-8 ####[facility] LABCLIA [id number] [place] [id number] [place] Renal function 2000 panelon 04-11-2025 Albumin [Mass/Vol] 2.5 g/dL Low 3.9-4.9 [facility] Comment on above: Order Comment: Speci men Type: BLOOD SPECIMENOrdering Facility: [facility] Address: [address] [place] [address] Performed By: #### 1 9123-9, 92767-6, 3084-1, 2276-4, 89049-3 ####MERID[facility] LABORATORYCLIA [id number] [place] [address] [place] Anion gap [Moles/Vol] 13 mmol/L Normal 8-15 [facility] Comment on above: Order Comment: Speci men Type: BLOOD SPECIMENOrdering Facility: [facility] Address: [address] [place] [address] Performed By: #### 1 9123-9, 63528-9, 3084-1, 2276-4, 11506-5 ####MERIDEN LABORATORYCLIA [id number] [place] [address] [place] Calcium [Mass/Vol] 8.0 mg/dL Low 8.5-10.2 [facility] Comment on above: Order Comment: Speci men Type: BLOOD SPECIMENOrdering Facility: [facility] Address: [address] [place] [address] Performed By: #### 1 9123-9, 30989-8, 3084-1, 2276-4, 93100-1 ####MERIDEN LABORATORYCLIA [id number] [place] [address] [place] Chloride [Moles/Vol] 106 mmol/L Normal 98-107 [facility] Comment on above: Order Comment: Speci men Type: BLOOD SPECIMENOrdering Facility: [facility] Address: [address] [place] [address] Performed By: #### 1 9123-9, 76172-4, 3084-1, 2276-4, 64745-2 ####MERIDEN LABORATORYCLIA [id number] [place] [address] [place] CO2 [Moles/Vol] 18 mmol/L Low 22-30 [facility] Comment on above: Order Comment: Speci men Type: BLOOD SPECIMENOrdering Facility: [facility] Address: [address] [place] [address] Performed By: #### 1 9123-9, 89225-5, 3084-1, 2276-4, 01982-4 ####MERID[facility] LABORATORYCLIA [id number] [place] [address] [place] Creatinine [Mass/Vol] 3.31 mg/dL High 0.73-1.22 [facility] Comment on above: Order Comment: Speci men Type: BLOOD SPECIMENOrdering Facility: [facility] Address: [address] [place] [address] Performed By: #### 1 9123-9, 21550-8, 3084-1, 2276-4, 87546-6 ####[facility] LABORATORYCLIA [id number] [place] [address] [place] eGFRcr SerPlBld CKD-EPI 2020 19 mL/min/1.73m??? Low >=60 [facility] Comment on above: Order Comment: Speci men Type: BLOOD SPECIMENOrdering Facility: [facility] Address: [address] [place] [address] Result Comment: Nancy mated Glomerular Filtration Rate [...] actual GFR. Performed By: #### 1 9123-9, 83985-3, 3084-1, 2276-4, 00353-7 ####[facility] LABORATORYCLIA [id number] [place] [address] [place] Glucose [Mass/Vol] 160 mg/dL High 74-99 [facility] Comment on above: Order Comment: Demarco harris Type: BLOOD SPECIMENOrdering Facility: [facility] [facility] Address: [address] [place] [address] Result Comment: The [employer] (ADA) provides guidance for cutoff [...] Standards of Medical Care in Diabetes 2016, [employer]. Diabetes Care. 2016.39(Suppl 1). Performed By: #### 1 9123-9, 50760-8, 3084-1, 2276-4, 43764-8 ####[facility] LABORATORYCLIA [id number] [place] [address] [place] Phosphate [Mass/Vol] 3.4 mg/dL Normal 2.7-4.8 [facility] Comment on above: Order Comment: Demarco [facility] Type: BLOOD SPECIMENOrdering Facility: [facility] Address: [address] [place] [address] Performed By: #### 1 9123-9, 78889-4, 3084-1, 2276-4, 55557-7 ####MERIDEN LABORATORYCLIA [id number] [place] [address] [place] Potassium [Moles/Vol] 3.6 mmol/L Low 3.7-5.1 [facility] Comment on above: Order Comment: Speci men Type: BLOOD SPECIMENOrdering Facility: [facility] Address: [facility] [place] [id number] Performed By: #### 1 9123-9, 33431-6, 3084-1, 2276-4, 60952-0 ####MER[facility] LABORATORYCLIA [id number] [place] [address] [place] Sodium [Moles/Vol] 137 mmol/L Normal 136-144 [facility] Comment on above: Order Comment: Speci men Type: BLOOD SPECIMENOrdering Facility: [facility] Address: [address] [place], [place] [address] Performed By: #### 1 9123-9, 69283-4, 3084-1, 2276-4, 24694-2 ####MER[facility] LABORATORYCLIA [id number] [place] [id number] [place] Urea nitrogen [Mass/Vol] 59 mg/dL High 9-24 [facility] Comment on above: Order Comment: Speci men Type: BLOOD SPECIMENOrdering Facility: [facility] Address: [facility] [place] [address] Performed By: #### 1 9123-9, 93239-7, 3084-1, 2276-4, 86666-0 ####MERIDEN LABORATORYCLIA [id number] [place] [address] [place] Urate SerPl-mCncon 5 Urate [Mass/Vol] 9.8 mg/dL High 4.0-8.1 [facility] Comment on above: Order Comment: Speci men Type: BLOOD SPECIMENOrdering Facility: [facility] Address: [address] [place], [place] [address] [id number] Performed By: #### 1 9123-9, 86423-7, 3084-1, 2276-4, 50310-3 ####MERIDEN LABORATORYCLIA [id number] [place] [address] [place] XR CHEST 1V FRONTALon 2024 XR CHEST 1V FRONTAL Normal [facility] CASE MANAGEMon 04-10-2025 CASE MANAGEM Normal [facility] CBC W Auto Differential pane l (Bld)on 04-10-2025 Anisocytosis Ql (Bld) Present Normal [facility] Comment on above: Order Comment: Speci men Type: BLOOD SPECIMENOrdering Facility: [facility] Address: [address] [place] [address] Performed By: #### 5 7021-8 ####MERIDEN LABORATORYCLIA [id number] [place] [address] [place] Basophils (Bld) [#/Vol] 0.00 10*3/uL Normal <0.11 [facility] Comment on above: Order Comment: Speci men Type: BLOOD SPECIMENOrdering Facility: [facility] Address: [address] [place] [address] Performed By: #### 5 7021-8 ####HERRERA LABORATORYCLIA [id number] [place] [address] [place] Basophils/100 WBC (Bld) 0.0 % Normal [facility] Comment on above: Order Comment: Speci men Type: BLOOD SPECIMENOrdering Facility: [facility] Address: [address] [place] [address] Performed By: #### 5 7021-8 ####HERRERA LABORATORYCLIA [id number] [place] [address] [place] Differential cell count method Nom (Bld) Manual Normal [facility] Comment on above: Order Comment: Speci men Type: BLOOD SPECIMENOrdering Facility: [facility] Address: [address] [place] [address] Performed By: #### 5 7021-8 ####HERRERA LABORATORYCLIA [id number] [place] [address] [facility] [place] Eosinophils (Bld) [#/Vol] 0.07 10*3/uL Normal <0.46 [facility] Comment on above: Order Comment: Speci men Type: BLOOD SPECIMENOrdering Facility: [facility] Address: [address] [place] [address] Performed By: #### 5 7021-8 ####HERRERA LABORATORYCLIA [id number] [address] [place] Eosinophils/100 WBC (Bld) 1.0 % Normal [facility] Comment on above: Order Comment: Speci men Type: BLOOD SPECIMENOrdering Facility: [facility] Address: [address] [place] [address] Performed By: #### 5 7021-8 ####HERRERA LABORATORYCLIA [id number] [address] Erythrocyte distribution width (RBC) [Ratio] 16.9 % High 11.5-15.0 [facility] Comment on above: Order Comment: Speci men Type: BLOOD SPECIMENOrdering Facility: [facility] Address: [address] [place] [address] Performed By: #### 5 7021-8 ####HERRERA LABORATORYCLIA [id number] [address] Hematocrit (Bld) [Volume fraction] 24.8 % Low 39.0-51.0 [facility] Comment on above: Order Comment: Speci men Type: BLOOD SPECIMENOrdering Facility: [facility] Address: [address] [place] [address] Performed By: #### 5 7021-8 ####HERRERA LABORATORYCLIA [id number] [address] Hemoglobin (Bld) [Mass/Vol] 8.2 g/dL Low 13.0-17.0 [facility] Comment on above: Order Comment: Speci men Type: BLOOD SPECIMENOrdering Facility: [facility] Address: [address] [place] [address] Performed By: #### 5 7021-8 ####HERRERA LABORATORYCLIA [id number] [place] [address] [place] Lymphocytes (Bld) [#/Vol] 2.07 10*3/uL Normal 1.00-4.00 [facility] Comment on above: Order Comment: Speci men Type: BLOOD SPECIMENOrdering Facility: [facility] Address: [address] [place] [address] Performed By: #### 5 7021-8 ####HERRERA LABORATORYCLIA [id number] [address] Lymphocytes/100 WBC (Bld) 29.0 % Normal [facility] Comment on above: Order Comment: Speci men Type: BLOOD SPECIMENOrdering Facility: [facility] Address: [address] [place] [address] Performed By: #### 5 7021-8 ####HERRERA LABORATORYCLIA [id number] [address] LYMPHOMA CELL 12.0 % Normal [facility] Comment on above: Order Comment: Speci men Type: BLOOD SPECIMENOrdering Facility: [facility] Address: [address] [place] [address] Performed By: #### 5 7021-8 ####HERRERA LABORATORYCLIA [id number] [address] [place] MCH (RBC) [Entitic mass] 28.9 pg Normal 26.0-34.0 [facility] Comment on above: Order Comment: Speci men Type: BLOOD SPECIMENOrdering Facility: [facility] Address: [address] [place] [address] Performed By: #### 5 7021-8 ####HERRERA LABORATORYCLIA [id number] [place] [address] [place] MCHC (RBC) [Mass/Vol] 33.1 g/dL Normal 30.5-36.0 [facility] Comment on above: Order Comment: Speci men Type: BLOOD SPECIMENOrdering Facility: [facility] Address: [address] [place] [address] Performed By: #### 5 7021-8 ####HERRERA LABORATORYCLIA [id number] [address] [place] MCV (RBC) [Entitic vol] 87.3 fL Normal 80.0-100.0 [facility] Comment on above: Order Comment: Speci men Type: BLOOD SPECIMENOrdering Facility: [facility] Address: [facility] [place] [address] Performed By: #### 5 7021-8 ####HERRERA LABORATORYCLIA [id number] [place] [address] [place] Monocytes (Bld) [#/Vol] 0.36 10*3/uL Normal <0.87 [facility] Comment on above: Order Comment: Speci men Type: BLOOD SPECIMENOrdering Facility: [facility] Address: [address] [place] [address] Performed By: #### 5 7021-8 ####HERRERA LABORATORYCLIA [id number] [address] Monocytes/100 WBC (Bld) 5.0 % Normal [facility] Comment on above: Order Comment: Speci men Type: BLOOD SPECIMENOrdering Facility: [facility] Address: [address] [place] [address] Performed By: #### 5 7021-8 ####HERRERA LABORATORYCLIA [id number] [place] [address] [place] Neutrophils (Bld) [#/Vol] 3.78 10*3/uL Normal 1.45-7.50 [facility] Comment on above: Order Comment: Speci men Type: BLOOD SPECIMENOrdering Facility: [facility] Address: [address] [place] [address] Performed By: #### 5 7021-8 ####HERRER[facility] LABORATORYCLIA [id number] [place] [address] [place] Neutrophils/100 WBC (Bld) 53.0 % Normal [facility] Comment on above: Order Comment: Speci men Type: BLOOD SPECIMENOrdering Facility: [facility] Address: [address] [place] [address] Performed By: #### 5 7021-8 ####HERRERA LABORATORYCLIA [id number] [place] [address] [place] Nucleated RBC (Bld) [#/Vol] 10*3/uL Normal <0.01 [facility] Comment on above: Order Comment: Speci men Type: BLOOD SPECIMENOrdering Facility: [facility] Address: [address] [place] [address] Performed By: #### 5 7021-8 ####HERRERA LABORATORYCLIA [id number] [place] [address] [place] Nucleated RBC/100 WBC (Bld) [Ratio] 0.0 /100 WBC Normal [facility] Comment on above: Order Comment: Speci men Type: BLOOD SPECIMENOrdering Facility: [facility] Address: [address] [place] [address] Performed By: #### 5 7021-8 ####HERRERA LABORATORYCLIA [id number] [place] [address] [place] Ovalocytes LM Ql (Bld) Few Normal [facility] Comment on above: Order Comment: Speci men Type: BLOOD SPECIMENOrdering Facility: [facility] Address: [address] [place] [address] Performed By: #### 5 7021-8 ####HERRERA LABORATORYCLIA [id number] [place] [address] [place] Platelet mean volume (Bld) [Entitic vol] 12.1 fL Normal 9.0-12.7 [facility] Comment on above: Order Comment: Speci men Type: BLOOD SPECIMENOrdering Facility: [facility] Address: [address] [place] [address] Performed By: #### 5 7021-8 ####HERRERA LABORATORYCLIA [id number] [place] [address] [place] Platelets (Bld) [#/Vol] 82 10*3/uL Low 150-[address] [facility] Comment on above: Order Comment: Speci men Type: BLOOD SPECIMENOrdering Facility: [facility] Address: [address] [place] [address] Performed By: #### 5 7021-8 ####HERRERA LABORATORYCLIA [id number] [place] [address] [place] Platelets Estimate (Bld) [#/Vol] Decreased Normal [facility] Comment on above: Order Comment: Speci men Type: BLOOD SPECIMENOrdering Facility: [facility] Address: [address] [place] [address] Performed By: #### 5 7021-8 ####HERRERA LABORATORYCLIA [id number] [place] [address] [place] RBC (Bld) [#/Vol] 2.84 10*6/uL Low 4.20-6.00 [facility] Comment on above: Order Comment: Speci men Type: BLOOD SPECIMENOrdering Facility: [facility] Address: [address] [place] [address] Performed By: #### 5 7021-8 ####HERRERA LABORATORYCLIA [id number] [address] [place] RED CELL MORPH Reviewed: see result s of individual morphologies Normal [facility] Comment on above: Order Comment: Speci men Type: BLOOD SPECIMENOrdering Facility: [facility] Address: [address] [place] [address] Performed By: #### 5 7021-8 ####HERRERA LABORATORYCLIA [id number] [place] [address] [place] WBC (Bld) [#/Vol] 7.13 10*3/uL Normal 3.70-11.00 [facility] Comment on above: Order Comment: Speci men Type: BLOOD SPECIMENOrdering Facility: [facility] Address: [address] [place] [address] Performed By: #### 5 7021-8 ####HERRERA LABORATORYCLIA [id number] [address] [place] CONSULT PROGon 04-10-2025 CONSULT PROG Normal [facility] CONSULT PROG Normal [facility] CONSULT PROG [facility] Magnesium SerPl-mCncon 04-10 Magnesium [Mass/Vol] 2.1 mg/dL Normal 1.7-2.3 [facility] Comment on above: Order Comment: Speci men Type: BLOOD SPECIMENOrdering Facility: [facility] Address: [address] [place], [place] [address] Performed By: #### 2 4362-6, ####HERRERA LABORATORYCLIA [id number] [place] [address] [place] Renal function 2000 panelon 04-10-2025 Albumin [Mass/Vol] 2.4 g/dL Low 3.9-4.9 [facility] Comment on above: Order Comment: Speci men Type: BLOOD SPECIMENOrdering Facility: [facility] Address: [facility] [place] [address] Performed By: #### 2 4362-6, ####HERRERA LABORATORYCLIA [id number] [place] [address] [place] Anion gap [Moles/Vol] 14 mmol/L Normal 8-15 [facility] Comment on above: Order Comment: Speci men Type: BLOOD SPECIMENOrdering Facility: [facility] Address: [facility] [place] [address] Performed By: #### 2 4362-6, ####HERRER[facility] LABORATORYCLIA [id number] [place] [address] [place] Calcium [Mass/Vol] 8.0 mg/dL Low 8.5-10.2 [facility] Comment on above: Order Comment: Speci men Type: BLOOD SPECIMENOrdering Facility: [facility] Address: [facility] [place] [address] Performed By: #### 2 4362-6, ####HERRERA LABORATORYCLIA [id number] [place] [address] [place] Chloride [Moles/Vol] 106 mmol/L Normal 98-107 [facility] Comment on above: Order Comment: Speci men Type: BLOOD SPECIMENOrdering Facility: [facility] Address: [facility] [place] [address] Performed By: #### 2 4362-6, ####HERRERA LABORATORYCLIA [id number] [place] [address] [place] CO2 [Moles/Vol] 17 mmol/L Low 22-30 [facility] Comment on above: Order Comment: Speci men Type: BLOOD SPECIMENOrdering Facility: [facility] Address: [address] [place] [address] Performed By: #### 2 4362-6, ####HERRERA LABORATORYCLIA [id number] [place] [address] [place] Creatinine [Mass/Vol] 2.47 mg/dL High 0.73-1.22 [facility] Comment on above: Order Comment: Demarco kimberly Type: BLOOD SPECIMENOrdering Facility: [facility] Address: [address] [place] [address] Performed By: #### 2 4362-6, ####HERRERA LABORATORYCLIA [id number] [place] [id number] [place] eGFRcr SerPlBld CKD-EPI 2020 27 mL/min/1.73m??? Low >=60 [facility] Comment on above: Order Comment: Demarco kimberly Type: BLOOD SPECIMENOrdering Facility: [facility] Address: [address] [place] [address] Result Comment: Nancy mated Glomerular Filtration Rate [...] reflect actual GFR. Performed By: #### 2 4362-6, ####HERRERA LABORATORYCLIA [id number] [place] [id number] [place] Glucose [Mass/Vol] 144 mg/dL High 74-99 [facility] Comment on above: Order Comment: Demarco harris Type: BLOOD SPECIMENOrdering Facility: [facility] Address: [address] [place] [address] Result Comment: The [place] [employer] (ADA) provides guidance for cutoff [...] Standards of Medical Care in Diabetes 2016, [place] [employer]. Diabetes Care. 2016.39(Suppl 1). Performed By: #### 2 4362-6, ####HERRERA LABORATORYCLIA [id number] [place] [address] [place] Phosphate [Mass/Vol] 3.1 mg/dL Normal 2.7-4.8 [facility] Comment on above: Order Comment: Demarco harris Type: BLOOD SPECIMENOrdering Facility: [facility] Address: [address] [place], [place] [address] Performed By: #### 2 43607-17, ####HERRERA LABORATORYCLIA [id number] [place] [id number] [place] Potassium [Moles/Vol] 3.9 mmol/L Normal 3.7-5.1 [facility] Comment on above: Order Comment: Demarco harris Type: BLOOD SPECIMENOrdering Facility: [facility] Address: [address] [place] [address] Performed By: #### 2 43607-17, ####HERRERA LABORATORYCLIA [id number] [place] [address] [place] Sodium [Moles/Vol] 137 mmol/L Normal 136-144 [facility] Comment on above: Order Comment: Demarco harris Type: BLOOD SPECIMENOrdering Facility: [facility] Address: [address] [place], [place] [address] Performed By: #### 2 43607-17, ####HERRERA LABORATORYCLIA [id number] [place] [address] [place] Urea nitrogen [Mass/Vol] 50 mg/dL High 9-24 [facility] Comment on above: Order Comment: Demarco harris Type: BLOOD SPECIMENOrdering Facility: [facility] Address: [address] [place], [place] [address] Performed By: #### 2 4362-6, 74301-9 ####HERRERA LABORATORYCLIA [id number] [place] [address] [place] ALLIED HEALTHon 04-09-2025 ALLIED HEALTH Normal [facility] Bacteria Bld Culton 04-09-20 25 Bacteria identified Cx Nom (Bld) CULTURE, BLOOD: No growth 5 days Normal [facility] Comment on above: Performed By: #### 6 00-7 ####[facility] LABCLIA [id number] [place] [address] [place] Bacteria identified Cx Nom (Bld) CULTURE, BLOOD: No growth 5 days Normal [facility] Comment on above: Performed By: #### 6 00-7 ####[facility] LABCLIA [id number] [address] [place] CASE MANAGEMon 04-09-2025 CASE MANAGEM Normal [facility] CBC W Auto Differential pane l (Bld)on 04-09-2025 Anisocytosis Ql (Bld) Present Normal [facility] Comment on above: Order Comment: Speci men Type: BLOOD SPECIMENOrdering Facility: [facility] Address: [address] [place] [address] Performed By: #### 5 7021-8 ####HERRERA LABORATORYCLIA [id number] [place] [address] [place] Basophils (Bld) [#/Vol] 0.00 10*3/uL Normal <0.11 [facility] Comment on above: Order Comment: Speci men Type: BLOOD SPECIMENOrdering Facility: [facility] Address: [address] [place] [address] Performed By: #### 5 7021-8 ####HERRERA LABORATORYCLIA [id number] [place] [address] [place] Basophils/100 WBC (Bld) 0.0 % Normal [facility] Comment on above: Order Comment: Speci men Type: BLOOD SPECIMENOrdering Facility: [facility] Address: [address] [place] [address] Performed By: #### 5 7021-8 ####HERRERA LABORATORYCLIA [id number] [address] [place] Differential cell count method Nom (Bld) Manual Normal [facility] Comment on above: Order Comment: Speci men Type: BLOOD SPECIMENOrdering Facility: [facility] Address: [address] [place] [address] Performed By: #### 5 7021-8 ####HERRERA LABORATORYCLIA [id number] [place] [address] [place] Eosinophils (Bld) [#/Vol] 0.19 10*3/uL Normal <0.46 [facility] Comment on above: Order Comment: Speci men Type: BLOOD SPECIMENOrdering Facility: [facility] Address: [address] [place] [address] Performed By: #### 5 7021-8 ####HERRERA LABORATORYCLIA [id number] [address] Eosinophils/100 WBC (Bld) 3.0 % Normal [facility] Comment on above: Order Comment: Speci men Type: BLOOD SPECIMENOrdering Facility: [facility] Address: [address] [place] [address] Performed By: #### 5 7021-8 ####HERRERA LABORATORYCLIA [id number] [address] [place] Erythrocyte distribution width (RBC) [Ratio] 16.8 % High 11.5-15.0 [facility] Comment on above: Order Comment: Speci men Type: BLOOD SPECIMENOrdering Facility: [facility] Address: [address] [place] [address] Performed By: #### 5 7021-8 ####HERRER[facility] LABORATORYCLIA [id number] [address] [place] Hematocrit (Bld) [Volume fraction] 23.6 % Low 39.0-51.0 [facility] Comment on above: Order Comment: Speci men Type: BLOOD SPECIMENOrdering Facility: [facility] Address: [address] [place] [address] Performed By: #### 5 7021-8 ####HERRERA LABORATORYCLIA [id number] [address] [place] Hemoglobin (Bld) [Mass/Vol] 8.0 g/dL Low 13.0-17.0 [facility] Comment on above: Order Comment: Speci men Type: BLOOD SPECIMENOrdering Facility: [facility] Address: [address] [place] [address] Performed By: #### 5 7021-8 ####HERRERA LABORATORYCLIA [id number] [place] [address] [place] Lymphocytes (Bld) [#/Vol] 1.77 10*3/uL Normal 1.00-4.00 [facility] Comment on above: Order Comment: Speci men Type: BLOOD SPECIMENOrdering Facility: [facility] Address: [address] [place] [address] Performed By: #### 5 7021-8 ####HERRER[facility] LABORATORYCLIA [id number] [address] Lymphocytes/100 WBC (Bld) 28.0 % Normal [facility] Comment on above: Order Comment: Speci men Type: BLOOD SPECIMENOrdering Facility: [facility] Address: [address] [place] [address] Performed By: #### 5 7021-8 ####HERRERA LABORATORYCLIA [id number] [address] LYMPHOMA CELL 2.0 % Normal [facility] Comment on above: Order Comment: Speci men Type: BLOOD SPECIMENOrdering Facility: [facility] Address: [address] [place] [address] Performed By: #### 5 7021-8 ####HERRER[facility] LABORATORYCLIA [id number] [address] MCH (RBC) [Entitic mass] 29.5 pg Normal 26.0-34.0 [facility] Comment on above: Order Comment: Speci men Type: BLOOD SPECIMENOrdering Facility: [facility] Address: [address] [place] [address] Performed By: #### 5 7021-8 ####HERRER[facility] LABORATORYCLIA [id number] [address] MCHC (RBC) [Mass/Vol] 33.9 g/dL Normal 30.5-36.0 [facility] Comment on above: Order Comment: Speci men Type: BLOOD SPECIMENOrdering Facility: [facility] Address: [address] [place] [address] Performed By: #### 5 7021-8 ####HERRERA LABORATORYCLIA [id number] [address] MCV (RBC) [Entitic vol] 87.1 fL Normal 80.0-100.0 [facility] Comment on above: Order Comment: Speci men Type: BLOOD SPECIMENOrdering Facility: [facility] Address: [address] [place] [address] Performed By: #### 5 7021-8 ####HERRERA LABORATORYCLIA [id number] [address] Metamyelocytes/100 WBC (Bld) 1.0 % Normal [facility] Comment on above: Order Comment: Speci men Type: BLOOD SPECIMENOrdering Facility: [facility] Address: [address] [place] [address] Performed By: #### 5 7021-8 ####HERRERA LABORATORYCLIA [id number] [address] Monocytes (Bld) [#/Vol] 0.00 10*3/uL Normal <0.87 [facility] Comment on above: Order Comment: Speci men Type: BLOOD SPECIMENOrdering Facility: [facility] Address: [address] [place] [address] Performed By: #### 5 7021-8 ####HERRERA LABORATORYCLIA [id number] [address] Monocytes/100 WBC (Bld) 0.0 % Normal [facility] Comment on above: Order Comment: Speci men Type: BLOOD SPECIMENOrdering Facility: [facility] Address: [address] [place] [address] Performed By: #### 5 7021-8 ####HERRERA LABORATORYCLIA [id number] [place] [address] [place] Neutrophils (Bld) [#/Vol] 4.17 10*3/uL Normal 1.45-7.50 [facility] Comment on above: Order Comment: Speci men Type: BLOOD SPECIMENOrdering Facility: [facility] Address: [address] [place] [address] Performed By: #### 5 7021-8 ####HERRERA LABORATORYCLIA [id number] [place] [address] [place] Neutrophils/100 WBC (Bld) 66.0 % Normal [facility] Comment on above: Order Comment: Speci men Type: BLOOD SPECIMENOrdering Facility: [facility] Address: [address] [place] [address] Performed By: #### 5 7021-8 ####HERRERA LABORATORYCLIA [id number] [place] [address] [place] Nucleated RBC (Bld) [#/Vol] 10*3/uL Normal <0.01 [facility] Comment on above: Order Comment: Speci men Type: BLOOD SPECIMENOrdering Facility: [facility] Address: [address] [place] [address] Performed By: #### 5 7021-8 ####HERRERA LABORATORYCLIA [id number] [address] [place] Nucleated RBC/100 WBC (Bld) [Ratio] 0.0 /100 WBC Normal [facility] Comment on above: Order Comment: Speci men Type: BLOOD SPECIMENOrdering Facility: [facility] Address: [address] [place] [address] Performed By: #### 5 7021-8 ####HERRERA LABORATORYCLIA [id number] [place] [address] [place] Ovalocytes LM Ql (Bld) Few Normal [facility] Comment on above: Order Comment: Speci men Type: BLOOD SPECIMENOrdering Facility: [facility] Address: [address] [place] [address] Performed By: #### 5 7021-8 ####HERRERA LABORATORYCLIA [id number] [place] [address] [place] Platelet mean volume (Bld) [Entitic vol] 11.3 fL Normal 9.0-12.7 [facility] Comment on above: Order Comment: Speci men Type: BLOOD SPECIMENOrdering Facility: [facility] Address: [address] [place] [address] Performed By: #### 5 7021-8 ####HERRERA LABORATORYCLIA [id number] [place] [address] [place] Platelets (Bld) [#/Vol] 58 10*3/uL Low 150-[address] [facility] Comment on above: Order Comment: Speci men Type: BLOOD SPECIMENOrdering Facility: [facility] Address: [address] [place] [address] Performed By: #### 5 7021-8 ####HERRERA LABORATORYCLIA [id number] [address] [place] Platelets Estimate (Bld) [#/Vol] Decreased Normal [facility] Comment on above: Order Comment: Speci men Type: BLOOD SPECIMENOrdering Facility: [facility] Address: [address] [place] [address] Performed By: #### 5 7021-8 ####HERRERA LABORATORYCLIA [id number] [place] [address] [place] RBC (Bld) [#/Vol] 2.71 10*6/uL Low 4.20-6.00 [facility] Comment on above: Order Comment: Speci men Type: BLOOD SPECIMENOrdering Facility: [facility] Address: [address] [place] [address] Performed By: #### 5 7021-8 ####HERRERA LABORATORYCLIA [id number] [place] [id number] [facility] [place] RED CELL MORPH Reviewed: see result s of individual morphologies Normal [facility] Comment on above: Order Comment: Speci men Type: BLOOD SPECIMENOrdering Facility: [facility] Address: [address] [place] [address] Performed By: #### 5 7021-8 ####HERRERA LABORATORYCLIA [id number] [address] [place] WBC (Bld) [#/Vol] 6.32 10*3/uL Normal 3.70-11.00 [facility] Comment on above: Order Comment: Speci men Type: BLOOD SPECIMENOrdering Facility: [facility] Address: [address] [place] [address] Performed By: #### 5 7021-8 ####HERRERA LABORATORYCLIA [id number] [address] STATES [facility] WBC Left Shift Ql (Bld) Present Normal [facility] Comment on above: Order Comment: Speci men Type: BLOOD SPECIMENOrdering Facility: [facility] Address: [address] [place] [address] Performed By: #### 5 7021-8 ####HERRERA LABORATORYCLIA [id number] [address] [place] CNDSon 04-09-2025 CNDS [facility] CNPNon 04-09-2025 CNPN [facility] CONSULT PROGon 04-09-2025 CONSULT PROG [facility]PEL WO IVCONon 2024 CT ABD/PEL WO IVCON [facility] Magnesium SerPl-mCncon 04-09 Magnesium [Mass/Vol] 2.0 mg/dL Normal 1.7-2.3 [facility] Comment on above: Order Comment: Speci men Type: BLOOD SPECIMENOrdering Facility: [facility] Address: [address] [place] [address] Performed By: #### 1 9123-9, 67533-6 ####MERIDEN LABORATORYCLIA [id number] [address] [place] NURSING PROGon 04-09-2025 NURSING PROG [facility] NUTRITIONon 04-09-2025 NUTRITION [facility] Renal function 2000 panelon 04-09-2025 Albumin [Mass/Vol] 2.4 g/dL Low 3.9-4.9 [facility] Comment on above: Order Comment: Speci men Type: BLOOD SPECIMENOrdering Facility: [facility] Address: [address] [place] [address] Performed By: #### 1 9123-9, 12103-8 ####HERRERA LABORATORYCLIA [id number] [place] [address] [place] Anion gap [Moles/Vol] 13 mmol/L Normal 8-15 [facility] Comment on above: Order Comment: Speci men Type: BLOOD SPECIMENOrdering Facility: [facility] Address: [facility] [place] [address] Performed By: #### 1 9123-9, ####HERRERA LABORATORYCLIA [id number] [place] [address] [place] Calcium [Mass/Vol] 7.9 mg/dL Low 8.5-10.2 [facility] Comment on above: Order Comment: Speci men Type: BLOOD SPECIMENOrdering Facility: [facility] Address: [facility] [place] [address] Performed By: #### 1 239, ####HERRERA LABORATORYCLIA [id number] [place] [address] [place] Chloride [Moles/Vol] 107 mmol/L Normal 98-107 [facility] Comment on above: Order Comment: Speci men Type: BLOOD SPECIMENOrdering Facility: [facility] Address: [facility] [place] [address] Performed By: #### 1 9123-9, ####HERRERA LABORATORYCLIA [id number] [place] [address] [place] CO2 [Moles/Vol] 15 mmol/L Low 22-30 [facility] Comment on above: Order Comment: Speci men Type: BLOOD SPECIMENOrdering Facility: [facility] Address: [facility] [place] [address] Performed By: #### 1 9123-9, 17483-9 ####HERRERA LABORATORYCLIA [id number] [place] [address] [place] Creatinine [Mass/Vol] 2.33 mg/dL High 0.73-1.22 [facility] Comment on above: Order Comment: Demarco harris Type: BLOOD SPECIMENOrdering Facility: [facility] Address: [address] [facility] [place] [address] Performed By: #### 1 9123-9, 48199-2 ####HERRERA LABORATORYCLIA [id number] [place] [address] [place] eGFRcr SerPlBld CKD-EPI 2020 28 mL/min/1.73m??? Low >=60 [facility] Comment on above: Order Comment: Demarco harris Type: BLOOD SPECIMENOrdering Facility: [facility] Address: [address] [place] [address] Result Comment: Nancy mated Glomerular Filtration Rate [...] actual GFR. Performed By: #### 1 9123-9, 18059-7 ####MERIDEN LABORATORYCLIA [id number] [place] [address] [place] Glucose [Mass/Vol] 137 mg/dL High 74-99 [facility] Comment on above: Order Comment: Demarco harris Type: BLOOD SPECIMENOrdering Facility: [facility] Address: [address] [place] [address] Result Comment: The [place] [employer] (ADA) provides guidance for cutoff [...] Standards of Medical Care in Diabetes 2016, [place] [employer]. Diabetes Care. 2016.39(Suppl 1). Performed By: #### 1 9123-9, 96109-7 ####HERRERA LABORATORYCLIA [id number] [place] [address] [place] Phosphate [Mass/Vol] 3.0 mg/dL Normal 2.7-4.8 [facility] Comment on above: Order Comment: Speci men Type: BLOOD SPECIMENOrdering Facility: [facility] Address: [address] [place] [address] Performed By: #### 1 9123-9, 47395-5 ####HERRERA LABORATORYCLIA [id number] [place] [address] [place] Potassium [Moles/Vol] 3.8 mmol/L Normal 3.7-5.1 [facility] Comment on above: Order Comment: Speci men Type: BLOOD SPECIMENOrdering Facility: [facility] Address: [address] [place] [address] Performed By: #### 1 9123-9, 37095-5 ####HERRERA LABORATORYCLIA [id number] [place] [address] [place] Sodium [Moles/Vol] 135 mmol/L Low 136-144 [facility] Comment on above: Order Comment: Speci men Type: BLOOD SPECIMENOrdering Facility: [facility] Address: [address] [place] [address] Performed By: #### 1 9123-9, 49969-5 ####HERRERA LABORATORYCLIA [id number] [place] [address] [place] Urea nitrogen [Mass/Vol] 46 mg/dL High 9-24 [facility] Comment on above: Order Comment: Speci men Type: BLOOD SPECIMENOrdering Facility: [facility] Address: [address] [place] [address] Performed By: #### 1 9123-9, 33639-4 ####HERRERA LABORATORYCLIA [id number] [place] [address] [place] ANES POSTPROC EVALon 025 ANES POSTPROC EVAL Normal [facility] ANES PRE-OPon 04-08-2025 ANES PRE-OP Normal [facility] CASE MANAGEMon 04-08-2025 CASE MANAGEM Normal [facility] CASE MANAGEM Normal [facility] CBC W Auto Differential pane l (Bld)on 04-08-2025 Anisocytosis Ql (Bld) Present Normal [facility] Comment on above: Order Comment: Speci men Type: BLOOD SPECIMENOrdering Facility: [facility] Address: [address] [place] [address] Performed By: #### 5 7021-8 ####HERRERA LABORATORYCLIA [id number] [place] [address] [place] Basophils (Bld) [#/Vol] 0.00 10*3/uL Normal <0.11 [facility] Comment on above: Order Comment: Speci men Type: BLOOD SPECIMENOrdering Facility: [facility] Address: [address] [place] [address] Performed By: #### 5 7021-8 ####HERRERA LABORATORYCLIA [id number] [place] [address] [place] Basophils/100 WBC (Bld) 0.0 % Normal [facility] Comment on above: Order Comment: Speci men Type: BLOOD SPECIMENOrdering Facility: [facility] Address: [address] [place] [address] Performed By: #### 5 7021-8 ####HERRERA LABORATORYCLIA [id number] [place] [address] [place] Differential cell count method Nom (Bld) Manual Normal [facility] Comment on above: Order Comment: Speci men Type: BLOOD SPECIMENOrdering Facility: [facility] Address: [address] [place] [address] Performed By: #### 5 7021-8 ####HERRERA LABORATORYCLIA [id number] [place] [address] [place] Eosinophils (Bld) [#/Vol] 0.00 10*3/uL Normal <0.46 [facility] Comment on above: Order Comment: Speci men Type: BLOOD SPECIMENOrdering Facility: [facility] Address: [address] [place] [address] Performed By: #### 5 7021-8 ####HERRERA LABORATORYCLIA [id number] [place] [address] [place] Eosinophils/100 WBC (Bld) 0.0 % Normal [facility] Comment on above: Order Comment: Speci men Type: BLOOD SPECIMENOrdering Facility: [facility] Address: [address] [place] [address] Performed By: #### 5 7021-8 ####HERRERA LABORATORYCLIA [id number] [place] [address] [place] Erythrocyte distribution width (RBC) [Ratio] 17.1 % High 11.5-15.0 [facility] Comment on above: Order Comment: Speci men Type: BLOOD SPECIMENOrdering Facility: [facility] Address: [address] [place] [address] Performed By: #### 5 7021-8 ####HERRERA LABORATORYCLIA [id number] [address] [place] Hematocrit (Bld) [Volume fraction] 22.2 % Low 39.0-51.0 [facility] Comment on above: Order Comment: Speci men Type: BLOOD SPECIMENOrdering Facility: [facility] Address: [address] [place] [address] Performed By: #### 5 7021-8 ####HERRERA LABORATORYCLIA [id number] [place] [address] [place] Hemoglobin (Bld) [Mass/Vol] 7.5 g/dL Low 13.0-17.0 [facility] Comment on above: Order Comment: Speci men Type: BLOOD SPECIMENOrdering Facility: [facility] Address: [address] [place] [address] Performed By: #### 5 7021-8 ####HERRERA LABORATORYCLIA [id number] [place] [address] [place] Lymphocytes (Bld) [#/Vol] 1.55 10*3/uL Normal 1.00-4.00 [facility] Comment on above: Order Comment: Speci men Type: BLOOD SPECIMENOrdering Facility: [facility] Address: [address] [place] [address] Performed By: #### 5 7021-8 ####HERRERA LABORATORYCLIA [id number] [address] Lymphocytes/100 WBC (Bld) 25.0 % Normal [facility] Comment on above: Order Comment: Speci men Type: BLOOD SPECIMENOrdering Facility: [facility] Address: [address] [place] [address] Performed By: #### 5 7021-8 ####HERRERA LABORATORYCLIA [id number] [address] LYMPHOMA CELL 6.0 % Normal [facility] Comment on above: Order Comment: Speci men Type: BLOOD SPECIMENOrdering Facility: [facility] Address: [address] [place] [address] Performed By: #### 5 7021-8 ####HERRERA LABORATORYCLIA [id number] [address] MCH (RBC) [Entitic mass] 29.4 pg Normal 26.0-34.0 [facility] Comment on above: Order Comment: Speci men Type: BLOOD SPECIMENOrdering Facility: [facility] Address: [address] [place] [address] Performed By: #### 5 7021-8 ####HERRERA LABORATORYCLIA [id number] [address] MCHC (RBC) [Mass/Vol] 33.8 g/dL Normal 30.5-36.0 [facility] Comment on above: Order Comment: Speci men Type: BLOOD SPECIMENOrdering Facility: [facility] Address: [address] [place] [address] Performed By: #### 5 7021-8 ####HERRERA LABORATORYCLIA [id number] [address] MCV (RBC) [Entitic vol] 87.1 fL Normal 80.0-100.0 [facility] Comment on above: Order Comment: Speci men Type: BLOOD SPECIMENOrdering Facility: [facility] Address: [address] [place] [address] Performed By: #### 5 7021-8 ####HERRERA LABORATORYCLIA [id number] [place] [address] [place] Monocytes (Bld) [#/Vol] 0.19 10*3/uL Normal <0.87 [facility] Comment on above: Order Comment: Speci men Type: BLOOD SPECIMENOrdering Facility: [facility] Address: [address] [place] [address] Performed By: #### 5 7021-8 ####HERRERA LABORATORYCLIA [id number] [address] Monocytes/100 WBC (Bld) 3.0 % Normal [facility] Comment on above: Order Comment: Speci men Type: BLOOD SPECIMENOrdering Facility: [facility] Address: [address] [place] [address] Performed By: #### 5 7021-8 ####HERRERA LABORATORYCLIA [id number] [address] [place] Neutrophils (Bld) [#/Vol] 4.10 10*3/uL Normal 1.45-7.50 [facility] Comment on above: Order Comment: Speci men Type: BLOOD SPECIMENOrdering Facility: [facility] Address: [address] [place] [address] Performed By: #### 5 7021-8 ####HERRERA LABORATORYCLIA [id number] [address] Neutrophils/100 WBC (Bld) 66.0 % Normal [facility] Comment on above: Order Comment: Speci men Type: BLOOD SPECIMENOrdering Facility: [facility] Address: [address] [place] [address] Performed By: #### 5 7021-8 ####HERRERA LABORATORYCLIA [id number] [place] [address] [place] Nucleated RBC (Bld) [#/Vol] 10*3/uL Normal <0.01 [facility] Comment on above: Order Comment: Speci men Type: BLOOD SPECIMENOrdering Facility: [facility] Address: [address] [place] [address] Performed By: #### 5 7021-8 ####HERRERA LABORATORYCLIA [id number] [place] [address] [place] Nucleated RBC/100 WBC (Bld) [Ratio] 0.0 /100 WBC Normal [facility] Comment on above: Order Comment: Speci men Type: BLOOD SPECIMENOrdering Facility: [facility] Address: [address] [place] [address] Performed By: #### 5 7021-8 ####HERRERA LABORATORYCLIA [id number] [place] [address] [place] Platelet mean volume (Bld) [Entitic vol] 11.6 fL Normal 9.0-12.7 [facility] Comment on above: Order Comment: Speci men Type: BLOOD SPECIMENOrdering Facility: [facility] Address: [address] [place] [address] Performed By: #### 5 7021-8 ####HERRERA LABORATORYCLIA [id number] [place] [address] [place] Platelets (Bld) [#/Vol] 53 10*3/uL Low 150-400 [facility] Comment on above: Order Comment: Speci men Type: BLOOD SPECIMENOrdering Facility: [facility] Address: [address] [place] [address] Performed By: #### 5 7021-8 ####HERRERA LABORATORYCLIA [id number] [place] [address] [place] Platelets Estimate (Bld) [#/Vol] Decreased Normal [facility] Comment on above: Order Comment: Speci men Type: BLOOD SPECIMENOrdering Facility: [facility] Address: [address] [place] [address] Performed By: #### 5 7021-8 ####HERRERA LABORATORYCLIA [id number] [place] [address] [place] RBC (Bld) [#/Vol] 2.55 10*6/uL Low 4.20-6.00 [facility] Comment on above: Order Comment: Speci men Type: BLOOD SPECIMENOrdering Facility: [facility] Address: [address] [place] [address] Performed By: #### 5 7021-8 ####HERRERA LABORATORYCLIA [id number] [address] RED CELL MORPH Reviewed: see result s of individual morphologies Normal [facility] Comment on above: Order Comment: Speci men Type: BLOOD SPECIMENOrdering Facility: [facility] Address: [address] [place] [address] Performed By: #### 5 7021-8 ####HERRERA LABORATORYCLIA [id number] [address] WBC (Bld) [#/Vol] 6.21 10*3/uL Normal 3.70-11.00 [facility] Comment on above: Order Comment: Speci men Type: BLOOD SPECIMENOrdering Facility: [facility] Address: [address] [place] [address] Performed By: #### 5 7021-8 ####HERRERA LABORATORYCLIA [id number] [address] CBC panel Auto (Bld)on 04-08 Erythrocyte distribution width (RBC) [Ratio] 16.4 % High 11.5-15.0 [facility] Comment on above: Order Comment: Speci men Type: BLOOD SPECIMENOrdering Facility: [facility] Address: [address] [place] [address] Performed By: #### 5 8410-2 ####HERRERA LABORATORYCLIA [id number] [address] Hematocrit (Bld) [Volume fraction] 25.3 % Low 39.0-51.0 [facility] Comment on above: Order Comment: Speci men Type: BLOOD SPECIMENOrdering Facility: [facility] Address: [address] [place] [address] Performed By: #### 5 8410-2 ####HERRERA LABORATORYCLIA [id number] [address] Hemoglobin (Bld) [Mass/Vol] 8.7 g/dL Low 13.0-17.0 [facility] Comment on above: Order Comment: Speci men Type: BLOOD SPECIMENOrdering Facility: [facility] Address: [address] [place] [address] Performed By: #### 5 8410-2 ####HERRERA LABORATORYCLIA [id number] [address] MCH (RBC) [Entitic mass] 29.9 pg Normal 26.0-34.0 [facility] Comment on above: Order Comment: Speci men Type: BLOOD SPECIMENOrdering Facility: [facility] Address: [address] [place] [address] Performed By: #### 5 8410-2 ####HERRERA LABORATORYCLIA [id number] [address] MCHC (RBC) [Mass/Vol] 34.4 g/dL Normal 30.5-36.0 [facility] Comment on above: Order Comment: Speci men Type: BLOOD SPECIMENOrdering Facility: [facility] Address: [address] [place] [address] Performed By: #### 5 8410-2 ####HERRERA LABORATORYCLIA [id number] [address] MCV (RBC) [Entitic vol] 86.9 fL Normal 80.0-100.0 [facility] Comment on above: Order Comment: Speci men Type: BLOOD SPECIMENOrdering Facility: [facility] Address: [address] [place] [address] Performed By: #### 5 8410-2 ####HERRERA LABORATORYCLIA [id number] [address] Nucleated RBC (Bld) [#/Vol] 10*3/uL Normal <0.01 [facility] Comment on above: Order Comment: Speci men Type: BLOOD SPECIMENOrdering Facility: [facility] Address: [address] [place] [address] Performed By: #### 5 8410-2 ####HERRERA LABORATORYCLIA [id number] [address] Platelet mean volume (Bld) [Entitic vol] 11.5 fL Normal 9.0-12.7 [facility] Comment on above: Order Comment: Speci men Type: BLOOD SPECIMENOrdering Facility: [facility] Address: [address] [place] [address] Performed By: #### 5 8410-2 ####HERRERA LABORATORYCLIA [id number] [address] [place] Platelets (Bld) [#/Vol] 67 10*3/uL Low 150-[address] [facility] Comment on above: Order Comment: Speci men Type: BLOOD SPECIMENOrdering Facility: [facility] Address: [address] [place] [address] Result Comment: No c lot detected. Performed By: #### 5 8410-2 ####HERRERA LABORATORYCLIA [id number] [address] [place] RBC (Bld) [#/Vol] 2.91 10*6/uL Low 4.20-6.00 [facility] Comment on above: Order Comment: Speci men Type: BLOOD SPECIMENOrdering Facility: [facility] Address: [address] [place] [address] Performed By: #### 5 8410-2 ####HERRERA LABORATORYCLIA [id number] [address] OF [facility] WBC (Bld) [#/Vol] 6.06 10*3/uL Normal 3.70-11.00 [facility] Comment on above: Order Comment: Speci men Type: BLOOD SPECIMENOrdering Facility: [facility] Address: [address] [place] [address] Performed By: #### 5 8410-2 ####HERRERA LABORATORYCLIA [id number] [address] [place] Erythrocyte distribution width (RBC) [Ratio] 17.2 % High 11.5-15.0 [facility] Comment on above: Order Comment: Speci men Type: BLOOD SPECIMENOrdering Facility: [facility] Address: [address] [place] [address] Performed By: #### 5 8410-2 ####HERRERA LABORATORYCLIA [id number] [address] [place] Hematocrit (Bld) [Volume fraction] 21.4 % Low 39.0-51.0 [facility] Comment on above: Order Comment: Speci men Type: BLOOD SPECIMENOrdering Facility: [facility] Address: [address] [place] [address] Performed By: #### 5 8410-2 ####HERRERA LABORATORYCLIA [id number] [address] Hemoglobin (Bld) [Mass/Vol] 7.6 g/dL Low 13.0-17.0 [facility] Comment on above: Order Comment: Speci men Type: BLOOD SPECIMENOrdering Facility: [facility] Address: [address] [place] [address] Performed By: #### 5 8410-2 ####HERRERA LABORATORYCLIA [id number] [address] MCH (RBC) [Entitic mass] 30.8 pg Normal 26.0-34.0 [facility] Comment on above: Order Comment: Speci men Type: BLOOD SPECIMENOrdering Facility: [facility] Address: [address] [place] [address] Performed By: #### 5 8410-2 ####HERRERA LABORATORYCLIA [id number] [address] MCHC (RBC) [Mass/Vol] 35.5 g/dL Normal 30.5-36.0 [facility] Comment on above: Order Comment: Speci men Type: BLOOD SPECIMENOrdering Facility: [facility] Address: [address] [place] [address] Performed By: #### 5 8410-2 ####HERRERA LABORATORYCLIA [id number] [address] MCV (RBC) [Entitic vol] 86.6 fL Normal 80.0-100.0 [facility] Comment on above: Order Comment: Speci men Type: BLOOD SPECIMENOrdering Facility: [facility] Address: [address] [place] [address] Performed By: #### 5 8410-2 ####HERRERA LABORATORYCLIA [id number] [place] [address] [place] Nucleated RBC (Bld) [#/Vol] 10*3/uL Normal <0.01 [facility] Comment on above: Order Comment: Speci men Type: BLOOD SPECIMENOrdering Facility: [facility] Address: [address] [place] [address] Performed By: #### 5 8410-2 ####HERRERA LABORATORYCLIA [id number] [place] [address] [place] Platelet mean volume (Bld) [Entitic vol] 11.3 fL Normal 9.0-12.7 [facility] Comment on above: Order Comment: Speci men Type: BLOOD SPECIMENOrdering Facility: [facility] Address: [address] [place] [address] Performed By: #### 5 8410-2 ####HERRERA LABORATORYCLIA [id number] [address] [place] Platelets (Bld) [#/Vol] 229 10*3/uL Normal 150-400 [facility] Comment on above: Order Comment: Speci men Type: BLOOD SPECIMENOrdering Facility: [facility] Address: [address] [place] [address] Performed By: #### 5 8410-2 ####HERRERA LABORATORYCLIA [id number] [address] [place] RBC (Bld) [#/Vol] 2.47 10*6/uL Low 4.20-6.00 [facility] Comment on above: Order Comment: Speci men Type: BLOOD SPECIMENOrdering Facility: [facility] Address: [address] [place] [address] Performed By: #### 5 8410-2 ####HERRERA LABORATORYCLIA [id number] [address] [place] WBC (Bld) [#/Vol] 6.27 10*3/uL Normal 3.70-11.00 [facility] Comment on above: Order Comment: Speci men Type: BLOOD SPECIMENOrdering Facility: [facility] Address: [address] [place] [address] Performed By: #### 5 8410-2 ####HERRERA LABORATORYCLIA [id number] [address] Erythrocyte distribution width (RBC) [Ratio] 17.1 % High 11.5-15.0 [facility] Comment on above: Order Comment: Speci men Type: BLOOD SPECIMENOrdering Facility: [facility] Address: [address] [place] [address] Performed By: #### 5 8410-2 ####HERRERA LABORATORYCLIA [id number] [address] Hematocrit (Bld) [Volume fraction] 22.2 % Low 39.0-51.0 [facility] Comment on above: Order Comment: Speci men Type: BLOOD SPECIMENOrdering Facility: [facility] Address: [address] [place] [address] Performed By: #### 5 8410-2 ####HERRERA LABORATORYCLIA [id number] [address] Hemoglobin (Bld) [Mass/Vol] 7.5 g/dL Low 13.0-17.0 [facility] Comment on above: Order Comment: Speci men Type: BLOOD SPECIMENOrdering Facility: [facility] Address: [address] [place] [address] Performed By: #### 5 8410-2 ####HERRERA LABORATORYCLIA [id number] [address] MCH (RBC) [Entitic mass] 29.5 pg Normal 26.0-34.0 [facility] Comment on above: Order Comment: Speci men Type: BLOOD SPECIMENOrdering Facility: [facility] Address: [address] [place] [address] Performed By: #### 5 8410-2 ####HERRERA LABORATORYCLIA [id number] [address] MCHC (RBC) [Mass/Vol] 33.8 g/dL Normal 30.5-36.0 [facility] Comment on above: Order Comment: Speci men Type: BLOOD SPECIMENOrdering Facility: [facility] Address: [address] [place] [address] Performed By: #### 5 8410-2 ####HERRERA LABORATORYCLIA [id number] [place] [address] [place] MCV (RBC) [Entitic vol] 87.4 fL Normal 80.0-100.[address] [facility] Comment on above: Order Comment: Speci men Type: BLOOD SPECIMENOrdering Facility: [facility] Address: [address] [place] [address] Performed By: #### 5 8410-2 ####HERRERA LABORATORYCLIA [id number] [place] [address] [place] Nucleated RBC (Bld) [#/Vol] 10*3/uL Normal <0.01 [facility] Comment on above: Order Comment: Speci men Type: BLOOD SPECIMENOrdering Facility: [facility] Address: [address] [place] [address] Performed By: #### 5 8410-2 ####HERRERA LABORATORYCLIA [id number] [place] [address] [place] Platelet mean volume (Bld) [Entitic vol] 10.9 fL Normal 9.0-12.7 [facility] Comment on above: Order Comment: Speci men Type: BLOOD SPECIMENOrdering Facility: [facility] Address: [address] [place] [address] Performed By: #### 5 8410-2 ####HERRERA LABORATORYCLIA [id number] [place] [address] [place] Platelets (Bld) [#/Vol] 46 10*3/uL Low 150-[address] [facility] Comment on above: Order Comment: Speci men Type: BLOOD SPECIMENOrdering Facility: [facility] Address: [address] [place] [address] Performed By: #### 5 8410-2 ####HERRERA LABORATORYCLIA [id number] [place] [address] [place] RBC (Bld) [#/Vol] 2.54 10*6/uL Low 4.20-6.00 [facility] Comment on above: Order Comment: Speci men Type: BLOOD SPECIMENOrdering Facility: [facility] Address: [address] [place] [address] Performed By: #### 5 8410-2 ####HERRERA LABORATORYCLIA [id number] [place] [address] [place] WBC (Bld) [#/Vol] 6.36 10*3/uL Normal 3.70-11.00 [facility] Comment on above: Order Comment: Speci men Type: BLOOD SPECIMENOrdering Facility: [facility] Address: [address] [place] [address] Performed By: #### 5 8410-2 ####MERIDEN LABORATORYCLIA [id number] [address] [place] CONSULT PROGon 04-08-2025 CONSULT PROG [facility] CONSULT PROG [facility] CYTOLOGY NON-GYNon GROSS DESCRIPTION A. Esophagus Normal [facility] Comment on above: Order Comment: Speci men Type: BRONCHIAL BRUSHINGS SPECIMENOrdering Facility: [facility] Address: [address] [place] [address] Result Comment: 30 c c clear colorless CytoLyt with brush and particles. ThinPrep prepared. Performed By: #### C YTRYDER ####[facility] LABORATORYCLIA [id number] [address] MAIN LABCLIA [id number] [address] [place] LABORATORYCLIA [id number] [place] [address] [place] Magnesium SerPl-mCncon 04-08 Magnesium [Mass/Vol] 1.9 mg/dL Normal 1.7-2.3 [facility] Comment on above: Order Comment: Speci men Type: BLOOD SPECIMENOrdering Facility: [facility] Address: [address] [place] [address] Performed By: #### 1 9123-9, 90723-2 ####HERRERA LABORATORYCLIA [id number] [place] [address] Pathology biopsy report Shaji (Tiss)on 04-08-2025 ADDENDUM 1: [facility] Comment on above: Order Comment: Speci kimberly Type: TISSUE SPECIMENOrdering Facility: [facility] Address: [address] [place] [address] Result Comment: Immu nostains for CD3, CD20, cyclin D1, and PAX5 were performed to evaluate the lymphoid aggregate. 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 CD3 highlights scattered small T cells. Dr. 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 Immunostains were ordered prior to initial signout to evaluate the small lymphoid aggregate, but, in the interest of time and to attempt to address the clinical question about viral infection and H. pylori, the case was signed out prior to the results of those immunostains. Since the immunostains are positive for mantle cell lymphoma, the report has been amended so that this important information is included in the line diagnosis field.Dr. Rabago was notified of this change by Curiyo message on 04/15/25.Edited results: Previously reported on 04/15/2025 at 1:56 PM EST. Performed By: #### 6 6121-5 ####TRACIST LABORATORYCLIA [id number] [place] [id number] [facility] MAIN LABCLIA [id number] [address] [place] DIAGNOSIS COMMENT H. pylori, HSV, and CMV immunostains were performed to evaluate the ulcer. All 3 immunostains are negative for their respective organisms/viral inclusions. Immunostains to evaluate a small lymphoid aggregate are pending. Normal [facility] Comment on above: Order Comment: Speci kimberly Type: TISSUE SPECIMENOrdering Facility: [facility] Address: [address] [place] [address] Performed By: #### 6 6121-5 ####TRACIST LABORATORYCLIA [id number] [address] LABCLIA [id number] [address] [place] GROSS DESCRIPTION Normal [facility] Comment on above: Order Comment: Specjoao harris Type: TISSUE SPECIMENOrdering Facility: [facility] Address: [address] [place] [address] Result Comment: A. S pamela, BiopsyReceived in formalin are 2 pieces of osorio, soft tissue aggregating to 0.6 x 0.3 x 0.2 cm. Totally submitted in one cassette.GMR April 08, 2025 4:07 PMGross examination performed at [facility], [address] [place] [address] Performed By: #### 6 6121-5 ####[facility] LABORATORYCLIA [id number] [address] LABCLIA [id number] [place] [address] [place] Renal function 2000 panelon 04-08-2025 Albumin [Mass/Vol] 2.3 g/dL Low 3.9-4.9 [facility] Comment on above: Order Comment: Speci men Type: BLOOD SPECIMENOrdering Facility: [facility] Address: [address] [place] [address] Performed By: #### 1 9123-9, 29896-0 ####MERIDEN LABORATORYCLIA [id number] [place] [address] [place] Anion gap [Moles/Vol] 13 mmol/L Normal 8-15 [facility] Comment on above: Order Comment: Speci men Type: BLOOD SPECIMENOrdering Facility: [facility] Address: [address] [place] [address] Performed By: #### 1 9123-9, 24753-0 ####HERRERA LABORATORYCLIA [id number] [place] [address] [place] Calcium [Mass/Vol] 7.7 mg/dL Low 8.5-10.2 [facility] Comment on above: Order Comment: Speci men Type: BLOOD SPECIMENOrdering Facility: [facility] Address: [address] [place] [address] Performed By: #### 1 9123-9, 78570-1 ####HERRERA LABORATORYCLIA [id number] [place] [address] [place] Chloride [Moles/Vol] 105 mmol/L Normal 98-107 [facility] Comment on above: Order Comment: Speci men Type: BLOOD SPECIMENOrdering Facility: [facility] Address: [address] [place] [address] Performed By: #### 1 9123-9, 28669-4 ####HERRERA LABORATORYCLIA [id number] [place] [address] [place] CO2 [Moles/Vol] 16 mmol/L Low 22-30 [facility] Comment on above: Order Comment: Speci men Type: BLOOD SPECIMENOrdering Facility: [facility] Address: [address] [place] [address] Performed By: #### 1 9123-9, 29624-8 ####HERRERA LABORATORYCLIA [id number] [place] [address] [place] Creatinine [Mass/Vol] 2.30 mg/dL High 0.73-1.22 [facility] Comment on above: Order Comment: Speci men Type: BLOOD SPECIMENOrdering Facility: [facility] Address: [address] [place] [address] Performed By: #### 1 9123-9, 58298-5 ####HERRERA LABORATORYCLIA [id number] [place] [address] [place] eGFRcr SerPlBld CKD-EPI 2020 29 mL/min/1.73m??? Low >=60 [facility] Comment on above: Order Comment: Demarco harris Type: BLOOD SPECIMENOrdering Facility: [facility] Address: [address] [place] [address] Result Comment: Nancy mated Glomerular Filtration Rate [...] actual GFR. Performed By: #### 1 9123-9, 90360-6 ####MERIDEN LABORATORYCLIA [id number] [place] [id number] [place] Glucose [Mass/Vol] 145 mg/dL High 74-99 [facility] Comment on above: Order Comment: Demarco harris Type: BLOOD SPECIMENOrdering Facility: [facility] Address: [address] [place] [address] Result Comment: The [place] [employer] (ADA) provides guidance for cutoff [...] Standards of Medical Care in Diabetes 2016, [place] [employer]. Diabetes Care. 2016.39(Suppl 1). Performed By: #### 1 9123-9, 06252-9 ####MERIDEN LABORATORYCLIA [id number] [place] [id number] [place] Phosphate [Mass/Vol] 2.3 mg/dL Low 2.7-4.8 [facility] Comment on above: Order Comment: Demarco harris Type: BLOOD SPECIMENOrdering Facility: [facility] Address: [address] [place] [address] Performed By: #### 1 9123-9, 36633-6 ####HERRERA LABORATORYCLIA [id number] [place] [address] [place] Potassium [Moles/Vol] 3.9 mmol/L Normal 3.7-5.1 [facility] Comment on above: Order Comment: Speci men Type: BLOOD SPECIMENOrdering Facility: [facility] Address: [address] [place] [address] Performed By: #### 1 9123-9, 00657-1 ####HERRERA LABORATORYCLIA [id number] [place] [id number] [place] Sodium [Moles/Vol] 134 mmol/L Low 136-144 [facility] Comment on above: Order Comment: Speci men Type: BLOOD SPECIMENOrdering Facility: [facility] Address: [address] [place] [address] Performed By: #### 1 9123-9, 88161-0 ####HERRERA LABORATORYCLIA [id number] [place] [address] [place] Urea nitrogen [Mass/Vol] 47 mg/dL High 9-24 [facility] Comment on above: Order Comment: Speci men Type: BLOOD SPECIMENOrdering Facility: [facility] Address: [address] [place] [address] Performed By: #### 1 9123-9, 42422-5 ####HERRERA LABORATORYCLIA [id number] [place] [id number] [place] Sodium ?Tm Ur-sCncon 025 Sodium Unsp time (U) [Moles/Vol] 26 mmol/L Normal 14-216 [facility] Comment on above: Order Comment: Speci men Type: URINE SPECIMENOrdering Facility: [facility] Address: [address] [place] [address] Performed By: #### 3 5678-2 ####[facility] LABCLIA [id number] [place] [address] [place] Tiss Path Bx reporton 10-29- 2025 AP DISCLAIMER Normal [facility] Comment on above: Order Comment: Speci men Type: TISSUE SPECIMENOrdering Facility: [facility] Address: [address] [place] [address] Result Comment: Krysten Nicole Test (LDT) Disclaimer:Performance characteristics of immunohistochemical, immunofluorescent, and chromogenic in-situ hybridization tests have been determined by the performing laboratory within the [facility] Department of Pathology and Laboratory Medicine ([facility], [facility], [facility], [facility], [facility], [facility], or [facility]) in a manner consistent with CLIA requirements. One or more of these tests may not have been cleared or approved by the FDA. The [facility] Department of Pathology and Laboratory Medicine is regulated under CLIA as qualified to perform high-complexity testing. These tests are used for clinical purposes. These should not be regarded as investigational or for research. Positive and negative controls stain appropriately. Performed By: #### 6 6121-5 ####[facility] LABORATORYCLIA [id number] [address] MAIN LABCLIA [id number] [address] Order Comment: Speci men Type: BRONCHIAL BRUSHINGS SPECIMENOrdering Facility: [facility] Address: [address] [place] [address] Performed By: #### C YTONON ####[facility] LABORATORYCLIA [id number] [address] MAIN LABCLIA [id number] [address] LABORATORYCLIA [id number] [address] [place] CASE REPORT Normal [facility] Comment on above: Order Comment: Speci men Type: TISSUE SPECIMENOrdering Facility: [facility] Address: [address] [place] [address] Result Comment: Surg ica Pathology Report Case: [id number] Provider: Joshua Rabago MD Collected: 04/08/2025 11:00 AMOrdering Location: [facility] Endoscopy Received: 04/08/2025 12:06 PMPathologist: Jakub Fajardo MDSpecimen: Stomach, Biopsy, Gastric erosion bx r/o H. Pylori, CMV and HSV Performed By: #### 6 6121-5 ####[facility] LABORATORYCLIA [id number] [address] MAIN LABCLIA [id number] [address] STATES [facility] Order Comment: Speci men Type: BRONCHIAL BRUSHINGS SPECIMENOrdering Facility: [facility] Address: [address] [place] [address] Result Comment: [facility] Cytology Report Case: [id number] Provider: Joshua Rabago MD Collected: 04/08/2025 10:57 AMOrdering Location: [facility] Endoscopy Received: 04/08/2025 11:59 AMPathologist: Elder Lyons MDSpecimen: Esophagus, Esophageal plaque brushing Performed By: #### C YTRYDER ####[facility] LABORATORYCLIA [id number] [address] MAIN LABCLIA [id number] [address] LABORATORYCLIA [id number] [place], [place] [address] [place] [address] [place] CLINICAL HISTORY Normal [facility] Comment on above: Order Comment: Speci men Type: TISSUE SPECIMENOrdering Facility: [facility] Address: [address] [place] [address] Result Comment: Asso ciated Diagnoses:R53.1 - WdyerzntN31.9, N18.9 - Acute on chronic renal qjijkpdrinsuvQ56.2 - Nausea and vomiting, unspecified vomiting typeN13.2 - Hydronephrosis concurrent with and due to calculi of kidney and ureter Performed By: #### 6 6121-5 ####[facility] LABORATORYCLIA [id number] [address] MAIN LABCLIA [id number] [address] [place] Order Comment: Speci men Type: BRONCHIAL BRUSHINGS SPECIMENOrdering Facility: [facility] Address: [address] [place] [address] Result Comment: Rule out candidaWeaknessAcute on chronic renal insufficiencyNausea and vomiting, unspecified vomiting typeHydronephrosis concurrent with and due to calculi of kidney and ureter Performed By: #### C YTONON ####[facility] LABORATORYCLIA [id number] [address] MAIN LABCLIA [id number] [address] LABORATORYCLIA [id number] [place] [address] [facility] FINAL DIAGNOSIS Normal [facility] Comment on above: Order Comment: Speci men Type: TISSUE SPECIMENOrdering Facility: [facility] Address: [address] [place] [address] Result Comment: Carlos santiago, biopsy:- 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 Performed By: #### 6 6121-5 ####[facility] LABORATORYCLIA [id number] [address] MAIN LABCLIA [id number] [address] Order Comment: Speci men Type: BRONCHIAL BRUSHINGS SPECIMENOrdering Facility: [facility] Address: [address] [place] [address] Result Comment: A - Esophagus, Bentley - Esophageal plaque brushing: Negative for malignant cells. Fungal organisms morphologically consistent with Yolanda species. at 0852 EDT Performed By: #### C YTONON ####[facility] LABORATORYCLIA [id number] [address] [facility]IN[facility] MAIN LABCLIA [id number] [place] [id number] [facility] LABORATORYCLIA [id number] [place] [address] [place] FINAL PERFORMING LAB Normal [facility] Comment on above: Order Comment: Speci men Type: TISSUE SPECIMENOrdering Facility: [facility] Address: [address] [place] [address] Result Comment: Diag nostic interpretation performed at: [facility], [address] [place] [address] CLIA# [id number] Director: Vy Ybarra MD Performed By: #### 6 6121-5 ####[facility] LABORATORYCLIA [id number] [address] LABCLIA [id number] [address] STATES [facility] Order Comment: Speci men Type: BRONCHIAL BRUSHINGS SPECIMENOrdering Facility: [facility] Address: [address] [place] [address] Result Comment: Tech nical component, book sorter screening performed at: [facility], [address] [place] [address] CLIA: [id number] interpretation performed at: [facility], [address] [place] [address] CLIA# [id number] Director: Tere Iglesias MD Performed By: #### C YTONOLeonel ####[facility] LABORATORYCLIA [id number] [address] MAIN LABCLIA [id number] [address] LABORATORYCLIA [id number] [place] [address] [place] Upper GI endoscopyon 025 Upper GI endoscopy Normal [facility] C diff Tox gens Stl Ql JOSE+p robeon 04-07-2025 C. difficile toxin genes JOSE+probe Ql (Stl) Negative Normal Negative for C. difficile toxin by PCR [facility] Comment on above: Order Comment: Speci men Type: STOOL SPECIMENOrdering Facility: [facility] Address: [address] [place] [address] Performed By: #### 5 4067-4 ####[facility] LABCLIA [id number] [place] [address] [place] CASE MANAGEMon 04-07-2025 CASE MANAGEM Normal [facility] CASE MANAGEM [facility] CBC W Auto Differential pane l (Bld)on 04-07-2025 Basophils (Bld) [#/Vol] 0.00 10*3/uL Normal <0.11 [facility] Comment on above: Order Comment: Speci men Type: BLOOD SPECIMENOrdering Facility: [facility] Address: [address] [place] [address] Performed By: #### 5 7021-8 ####H[facility]ER[facility] LABORATORYCLIA [id number] [place] [address] [place] Basophils/100 WBC (Bld) 0.0 % Normal [facility] Comment on above: Order Comment: Speci men Type: BLOOD SPECIMENOrdering Facility: [facility] Address: [address] [place] [address] Performed By: #### 5 7021-8 ####[facility] LABORATORYCLIA [id number] [place] [address] [place] Differential cell count method Nom (Bld) Manual Normal [facility] Comment on above: Order Comment: Speci men Type: BLOOD SPECIMENOrdering Facility: [facility] Address: [address] [place] [address] Performed By: #### 5 7021-8 ####[facility] LABORATORYCLIA [id number] [place] [address] [place] Eosinophils (Bld) [#/Vol] 0.00 10*3/uL Normal <0.46 [facility] Comment on above: Order Comment: Speci men Type: BLOOD SPECIMENOrdering Facility: [facility] Address: [address] [place] [address] Performed By: #### 5 7021-8 ####[facility] LABORATORYCLIA [id number] [address] [place] Eosinophils/100 WBC (Bld) 0.0 % Normal [facility] Comment on above: Order Comment: Speci men Type: BLOOD SPECIMENOrdering Facility: [facility] Address: [address] [place] [address] Performed By: #### 5 7021-8 ####[facility] LABORATORYCLIA [id number] [place] [address] [place] Erythrocyte distribution width (RBC) [Ratio] 17.2 % High 11.5-15.0 [facility] Comment on above: Order Comment: Speci men Type: BLOOD SPECIMENOrdering Facility: [facility] Address: [address] [place] [address] Performed By: #### 5 7021-8 ####HERRERA LABORATORYCLIA [id number] [address] [place] Hematocrit (Bld) [Volume fraction] 24.0 % Low 39.0-51.0 [facility] Comment on above: Order Comment: Speci men Type: BLOOD SPECIMENOrdering Facility: [facility] Address: [address] [place] [address] Performed By: #### 5 7021-8 ####HERRERA LABORATORYCLIA [id number] [address] [place] Hemoglobin (Bld) [Mass/Vol] 8.1 g/dL Low 13.0-17.0 [facility] Comment on above: Order Comment: Speci men Type: BLOOD SPECIMENOrdering Facility: [facility] Address: [address] [place] [address] Performed By: #### 5 7021-8 ####HERRERA LABORATORYCLIA [id number] [place] [address] [place] Lymphocytes (Bld) [#/Vol] 0.99 10*3/uL Low 1.00-4.00 [facility] Comment on above: Order Comment: Speci men Type: BLOOD SPECIMENOrdering Facility: [facility] Address: [address] [place] [address] Performed By: #### 5 7021-8 ####HERRERA LABORATORYCLIA [id number] [address] [place] Lymphocytes/100 WBC (Bld) 15.0 % Normal [facility] Comment on above: Order Comment: Speci men Type: BLOOD SPECIMENOrdering Facility: [facility] Address: [address] [place] [address] Performed By: #### 5 7021-8 ####HERRERA LABORATORYCLIA [id number] [place] [address] [place] MCH (RBC) [Entitic mass] 29.6 pg Normal 26.0-34.0 [facility] Comment on above: Order Comment: Speci men Type: BLOOD SPECIMENOrdering Facility: [facility] Address: [address] [place] [address] Performed By: #### 5 7021-8 ####HERRERA LABORATORYCLIA [id number] [address] [place] MCHC (RBC) [Mass/Vol] 33.8 g/dL Normal 30.5-36.0 [facility] Comment on above: Order Comment: Speci men Type: BLOOD SPECIMENOrdering Facility: [facility] Address: [address] [place] [address] Performed By: #### 5 7021-8 ####HERRERA LABORATORYCLIA [id number] [address] MCV (RBC) [Entitic vol] 87.6 fL Normal 80.0-100.0 [facility] Comment on above: Order Comment: Speci men Type: BLOOD SPECIMENOrdering Facility: [facility] Address: [address] [place] [address] Performed By: #### 5 7021-8 ####HERRERA LABORATORYCLIA [id number] [address] Metamyelocytes/100 WBC (Bld) 1.0 % Normal [facility] Comment on above: Order Comment: Speci men Type: BLOOD SPECIMENOrdering Facility: [facility] Address: [address] [place] [address] Performed By: #### 5 7021-8 ####HERRERA LABORATORYCLIA [id number] [place] [address] [place] Monocytes (Bld) [#/Vol] 0.13 10*3/uL Normal <0.87 [facility] Comment on above: Order Comment: Speci men Type: BLOOD SPECIMENOrdering Facility: [facility] Address: [address] [place] [address] Performed By: #### 5 7021-8 ####HERRERA LABORATORYCLIA [id number] [address] Monocytes/100 WBC (Bld) 2.0 % Normal [facility] Comment on above: Order Comment: Speci men Type: BLOOD SPECIMENOrdering Facility: [facility] Address: [address] [place] [address] Performed By: #### 5 7021-8 ####HERRERA LABORATORYCLIA [id number] [address] [place] Neutrophils (Bld) [#/Vol] 5.42 10*3/uL Normal 1.45-7.50 [facility] Comment on above: Order Comment: Speci men Type: BLOOD SPECIMENOrdering Facility: [facility] Address: [address] [place] [address] Performed By: #### 5 7021-8 ####HERRERA LABORATORYCLIA [id number] [address] Neutrophils/100 WBC (Bld) 82.0 % Normal [facility] Comment on above: Order Comment: Speci men Type: BLOOD SPECIMENOrdering Facility: [facility] Address: [address] [place] [address] Performed By: #### 5 7021-8 ####HERRERA LABORATORYCLIA [id number] [address] [place] Nucleated RBC (Bld) [#/Vol] 10*3/uL Normal <0.01 [facility] Comment on above: Order Comment: Speci men Type: BLOOD SPECIMENOrdering Facility: [facility] Address: [address] [place] [address] Performed By: #### 5 7021-8 ####HERRERA LABORATORYCLIA [id number] [place] [address] [place] Nucleated RBC/100 WBC (Bld) [Ratio] 0.0 /100 WBC Normal [facility] Comment on above: Order Comment: Speci men Type: BLOOD SPECIMENOrdering Facility: [facility] Address: [address] [place] [address] Performed By: #### 5 7021-8 ####HERRERA LABORATORYCLIA [id number] [place] [address] [place] Platelet mean volume (Bld) [Entitic vol] 11.0 fL Normal 9.0-12.7 [facility] Comment on above: Order Comment: Speci men Type: BLOOD SPECIMENOrdering Facility: [facility] Address: [address] [place] [address] Performed By: #### 5 7021-8 ####HERRERA LABORATORYCLIA [id number] [place] [address] [place] Platelets (Bld) [#/Vol] 44 10*3/uL Low 150-400 [facility] Comment on above: Order Comment: Speci men Type: BLOOD SPECIMENOrdering Facility: [facility] Address: [address] [place] [address] Performed By: #### 5 7021-8 ####HERRERA LABORATORYCLIA [id number] [place] [address] [place] Platelets Estimate (Bld) [#/Vol] Decreased Normal [facility] Comment on above: Order Comment: Speci men Type: BLOOD SPECIMENOrdering Facility: [facility] Address: [address] [place] [address] Performed By: #### 5 7021-8 ####HERRERA LABORATORYCLIA [id number] [place] [id number] [place] RBC (Bld) [#/Vol] 2.74 10*6/uL Low 4.20-6.00 [facility] Comment on above: Order Comment: Speci men Type: BLOOD SPECIMENOrdering Facility: [facility] Address: [address] [place] [address] Performed By: #### 5 7021-8 ####HERRERA LABORATORYCLIA [id number] [address] RED CELL MORPH Reviewed: unremarkable Normal [facility] Comment on above: Order Comment: Speci men Type: BLOOD SPECIMENOrdering Facility: [facility] Address: [address] [place] [address] Performed By: #### 5 7021-8 ####HERRERA LABORATORYCLIA [id number] [address] WBC (Bld) [#/Vol] 6.61 10*3/uL Normal 3.70-11.00 [facility] Comment on above: Order Comment: Speci men Type: BLOOD SPECIMENOrdering Facility: [facility] Address: [address] [place] [address] Performed By: #### 5 7021-8 ####HERRERA LABORATORYCLIA [id number] [address] CBC panel Auto (Bld)on 04-07 Erythrocyte distribution width (RBC) [Ratio] 16.9 % High 11.5-15.0 [facility] Comment on above: Order Comment: Speci men Type: BLOOD SPECIMENOrdering Facility: [facility] Address: [address] [place] [address] Performed By: #### 5 8410-2 ####HERRERA LABORATORYCLIA [id number] [address] Hematocrit (Bld) [Volume fraction] 26.0 % Low 39.0-51.0 [facility] Comment on above: Order Comment: Speci men Type: BLOOD SPECIMENOrdering Facility: [facility] Address: [address] [place] [address] Performed By: #### 5 8410-2 ####HERRERA LABORATORYCLIA [id number] [address] Hemoglobin (Bld) [Mass/Vol] 8.7 g/dL Low 13.0-17.0 [facility] Comment on above: Order Comment: Speci men Type: BLOOD SPECIMENOrdering Facility: [facility] Address: [address] [place] [address] Performed By: #### 5 8410-2 ####HERRERA LABORATORYCLIA [id number] [address] MCH (RBC) [Entitic mass] 29.0 pg Normal 26.0-34.0 [facility] Comment on above: Order Comment: Speci men Type: BLOOD SPECIMENOrdering Facility: [facility] Address: [address] [place] [address] Performed By: #### 5 8410-2 ####HERRERA LABORATORYCLIA [id number] [address] [place] MCHC (RBC) [Mass/Vol] 33.5 g/dL Normal 30.5-36.0 [facility] Comment on above: Order Comment: Speci men Type: BLOOD SPECIMENOrdering Facility: [facility] Address: [address] [place] [address] Performed By: #### 5 8410-2 ####HERRERA LABORATORYCLIA [id number] [address] MCV (RBC) [Entitic vol] 86.7 fL Normal 80.0-100.0 [facility] Comment on above: Order Comment: Speci men Type: BLOOD SPECIMENOrdering Facility: [facility] Address: [address] [place] [address] Performed By: #### 5 8410-2 ####HERRERA LABORATORYCLIA [id number] [address] Nucleated RBC (Bld) [#/Vol] 10*3/uL Normal <0.01 [facility] Comment on above: Order Comment: Speci men Type: BLOOD SPECIMENOrdering Facility: [facility] Address: [address] [place] [address] Performed By: #### 5 8410-2 ####HERRERA LABORATORYCLIA [id number] [address] Platelet mean volume (Bld) [Entitic vol] 11.0 fL Normal 9.0-12.7 [facility] Comment on above: Order Comment: Speci men Type: BLOOD SPECIMENOrdering Facility: [facility] Address: [address] [place] [address] Performed By: #### 5 8410-2 ####HERRERA LABORATORYCLIA [id number] [place] [address] [place] Platelets (Bld) [#/Vol] 57 10*3/uL Low 150-[address] [facility] Comment on above: Order Comment: Speci men Type: BLOOD SPECIMENOrdering Facility: [facility] Address: [address] [place] [address] Result Comment: Plat elet count confirmed by manual review of peripheral blood smear. No clot detected. Performed By: #### 5 8410-2 ####HERRERA LABORATORYCLIA [id number] [place] [address] [place] RBC (Bld) [#/Vol] 3.00 10*6/uL Low 4.20-6.00 [facility] Comment on above: Order Comment: Speci men Type: BLOOD SPECIMENOrdering Facility: [facility] Address: [address] [place] [address] Performed By: #### 5 8410-2 ####HERRERA LABORATORYCLIA [id number] [place] [address] [place] WBC (Bld) [#/Vol] 6.60 10*3/uL Normal 3.70-11.00 [facility] Comment on above: Order Comment: Speci men Type: BLOOD SPECIMENOrdering Facility: [facility] Address: [address] [place] [address] Performed By: #### 5 8410-2 ####HERRERA LABORATORYCLIA [id number] [place] [address] [place] Erythrocyte distribution width (RBC) [Ratio] 17.2 % High 11.5-15.0 [facility] Comment on above: Order Comment: Speci men Type: BLOOD SPECIMENOrdering Facility: [facility] Address: [address] [place] [address] Performed By: #### 5 8410-2 ####HERRERA LABORATORYCLIA [id number] [address] Hematocrit (Bld) [Volume fraction] 25.4 % Low 39.0-51.0 [facility] Comment on above: Order Comment: Speci men Type: BLOOD SPECIMENOrdering Facility: [facility] Address: [address] [place] [address] Performed By: #### 5 8410-2 ####HERRERA LABORATORYCLIA [id number] [address] [place] Hemoglobin (Bld) [Mass/Vol] 8.2 g/dL Low 13.0-17.0 [facility] Comment on above: Order Comment: Speci men Type: BLOOD SPECIMENOrdering Facility: [facility] Address: [address] [place] [address] Performed By: #### 5 8410-2 ####HERRERA LABORATORYCLIA [id number] [address] [place] [facility] MCH (RBC) [Entitic mass] 28.7 pg Normal 26.0-34.0 [facility] Comment on above: Order Comment: Speci men Type: BLOOD SPECIMENOrdering Facility: [facility] Address: [address] [place] [address] Performed By: #### 5 8410-2 ####HERRERA LABORATORYCLIA [id number] [address] [place] MCHC (RBC) [Mass/Vol] 32.3 g/dL Normal 30.5-36.0 [facility] Comment on above: Order Comment: Speci men Type: BLOOD SPECIMENOrdering Facility: [facility] Address: [address] [place] [address] Performed By: #### 5 8410-2 ####HERRERA LABORATORYCLIA [id number] [address] MCV (RBC) [Entitic vol] 88.8 fL Normal 80.0-100.0 [facility] Comment on above: Order Comment: Speci men Type: BLOOD SPECIMENOrdering Facility: [facility] Address: [address] [place] [address] Performed By: #### 5 8410-2 ####HERRERA LABORATORYCLIA [id number] [place] [address] [place] Nucleated RBC (Bld) [#/Vol] 10*3/uL Normal <0.01 [facility] Comment on above: Order Comment: Speci men Type: BLOOD SPECIMENOrdering Facility: [facility] Address: [address] [place] [address] Performed By: #### 5 8410-2 ####HERRERA LABORATORYCLIA [id number] [place] [address] [place] Platelet mean volume (Bld) [Entitic vol] 11.0 fL Normal 9.0-12.7 [facility] Comment on above: Order Comment: Speci men Type: BLOOD SPECIMENOrdering Facility: [facility] Address: [address] [place] [address] Performed By: #### 5 8410-2 ####HERRERA LABORATORYCLIA [id number] [place] [address] [place] Platelets (Bld) [#/Vol] 56 10*3/uL Low 150-[address] [facility] Comment on above: Order Comment: Speci men Type: BLOOD SPECIMENOrdering Facility: [facility] Address: [address] [place] [address] Result Comment: No c lot detected. Performed By: #### 5 8410-2 ####HERRERA LABORATORYCLIA [id number] [address] [place] RBC (Bld) [#/Vol] 2.86 10*6/uL Low 4.20-6.00 [facility] Comment on above: Order Comment: Speci men Type: BLOOD SPECIMENOrdering Facility: [facility] Address: [address] [place] [address] Performed By: #### 5 8410-2 ####HERRERA LABORATORYCLIA [id number] [address] [place] WBC (Bld) [#/Vol] 7.20 10*3/uL Normal 3.70-11.00 [facility] Comment on above: Order Comment: Speci men Type: BLOOD SPECIMENOrdering Facility: [facility] Address: [facility] [place] [id number] Performed By: #### 5 8410-2 ####HERRERA LABORATORYCLIA [id number] [place] [address] [place] CNPNon 04-07-2025 CNPN Normal [facility] CONSULT PROGon 04-07-2025 CONSULT PROG Normal [facility] CONSULT PROG Normal [facility] Magnesium SerPl-mCncon 04-07 Magnesium [Mass/Vol] 2.2 mg/dL Normal 1.7-2.3 [facility] Comment on above: Order Comment: Speci men Type: BLOOD SPECIMENOrdering Facility: [facility] Address: [facility] [place] [id number] Performed By: #### 2 4362-6, ####HERRERA LABORATORYCLIA [id number] [place] [address] [place] Renal function 2000 panelon 04-07-2025 Albumin [Mass/Vol] 2.7 g/dL Low 3.9-4.9 [facility] Comment on above: Order Comment: Speci men Type: BLOOD SPECIMENOrdering Facility: [facility] Address: [facility] [place] [address] Performed By: #### 2 4362-6, ####HERRERA LABORATORYCLIA [id number] [place] [address] [place] Anion gap [Moles/Vol] 13 mmol/L Normal 8-15 [facility] Comment on above: Order Comment: Speci men Type: BLOOD SPECIMENOrdering Facility: [facility] Address: [facility] [place] [address] Performed By: #### 2 4362-6, ####HERRERA LABORATORYCLIA [id number] [place] [id number] [place] Calcium [Mass/Vol] 7.8 mg/dL Low 8.5-10.2 [facility] Comment on above: Order Comment: Speci men Type: BLOOD SPECIMENOrdering Facility: [facility] Address: [address] [place], [place] [address] [place] [address] Performed By: #### 2 4362-6, ####HERRERA LABORATORYCLIA [id number] [place] [address] [place] Chloride [Moles/Vol] 104 mmol/L Normal 98-107 [facility] Comment on above: Order Comment: Speci men Type: BLOOD SPECIMENOrdering Facility: [facility] Address: [address] [place] [address] Performed By: #### 2 4362-6, ####HERRERA LABORATORYCLIA [id number] [place] [address] [place] CO2 [Moles/Vol] 16 mmol/L Low 22-30 [facility] Comment on above: Order Comment: Speci men Type: BLOOD SPECIMENOrdering Facility: [facility] Address: [address] [place] [address] Performed By: #### 2 4362-6, ####HERRERA LABORATORYCLIA [id number] [place] [address] [place] Creatinine [Mass/Vol] 2.11 mg/dL High 0.73-1.22 [facility] Comment on above: Order Comment: Speci men Type: BLOOD SPECIMENOrdering Facility: [facility] Address: [address] [place] [address] Performed By: #### 2 4362-6, ####MERIDEN LABORATORYCLIA [id number] [place] [address] [place] eGFRcr SerPlBld CKD-EPI 2020 32 mL/min/1.73m??? Low >=60 [facility] Comment on above: Order Comment: Speci men Type: BLOOD SPECIMENOrdering Facility: [facility] Address: [address] [place] [address] Result Comment: Nancy mated Glomerular Filtration Rate [...] reflect actual GFR. Performed By: #### 2 4362-6, ####MERIDEN LABORATORYCLIA [id number] [place] [address] [place] Glucose [Mass/Vol] 140 mg/dL High 74-99 [facility] Comment on above: Order Comment: Demarco harris Type: BLOOD SPECIMENOrdering Facility: [facility] Address: [address] [place] [address] Result Comment: The [employer] (ADA) provides guidance for cutoff [...] Standards of Medical Care in Diabetes 2016, [place] [employer]. Diabetes Care. 2016.39(Suppl 1). Performed By: #### 2 4362-6, ####MERIDEN LABORATORYCLIA [id number] [place] [id number] [place] Phosphate [Mass/Vol] 3.1 mg/dL Normal 2.7-4.8 [facility] Comment on above: Order Comment: Demarco harris Type: BLOOD SPECIMENOrdering Facility: [facility] Address: [address] [place] [address] Performed By: #### 2 4362-6, ####MERIDEN LABORATORYCLIA [id number] [place] [address] [place] Potassium [Moles/Vol] 3.5 mmol/L Low 3.7-5.1 [facility] Comment on above: Order Comment: Demarco harris Type: BLOOD SPECIMENOrdering Facility: [facility] Address: [address] [place], [place] [address] Performed By: #### 2 4362-6, ####HERRERA LABORATORYCLIA [id number] [place] [address] [place] Sodium [Moles/Vol] 133 mmol/L Low 136-144 [facility] Comment on above: Order Comment: Speci men Type: BLOOD SPECIMENOrdering Facility: [facility] Address: [address] [place] [address] Performed By: #### 2 4362-6, 70284-6 ####HERRERA LABORATORYCLIA [id number] [place] [address] [place] Urea nitrogen [Mass/Vol] 48 mg/dL High 9-24 [facility] Comment on above: Order Comment: Speci men Type: BLOOD SPECIMENOrdering Facility: [facility] Address: [address] [place] [address] Performed By: #### 2 4362-6, 39259-5 ####HERRERA LABORATORYCLIA [id number] [place] [address] [place] THERAPY NTon 04-07-2025 THERAPY NT Normal [facility] THERAPY NT [facility] ABO AND RH ONLYon 04-06-2025 ABO A Normal [facility] Comment on above: Order Comment: Speci men Type: BLOOD SPECIMENOrdering Facility: [facility] Address: [address] [place] [address] Performed By: #### W KUP2, ABORH ####[facility] BLOOD BANKCLIA [id number] [place] [address] [place] Rh Nom (Bld) Positive Normal [facility] Comment on above: Order Comment: Speci men Type: BLOOD SPECIMENOrdering Facility: [facility] Address: [address] [place] [address] Performed By: #### W KUP2, ABORH ####[facility] BLOOD BANKCLIA [id number] [place] [address] [place] ANTIBODY WORKUP(2)on 025 ADDITIONAL SPECIMENS Received in lab [facility] Comment on above: Order Comment: Speci men Type: BLOOD SPECIMENOrdering Facility: [facility] Address: [address] [place] [address] Performed By: #### W KUP2, ABOR ####[facility] BLOOD BANKCLIA [id number] [place] [id number] [place] BRIEF OP NOTon 04-06-2025 BRIEF OP NOT Normal [facility] CASE MANAGEMon 04-06-2025 CASE MANAGEM Normal [facility] CBC W Auto Differential pane l (Bld)on 04-06-2025 Anisocytosis Ql (Bld) Present Normal [facility] Comment on above: Order Comment: Speci men Type: BLOOD SPECIMENOrdering Facility: [facility] Address: [address] [place] [address] Performed By: #### 5 7021-8 ####HERRERA LABORATORYCLIA [id number] [place] [address] [place] Basophils (Bld) [#/Vol] 0.00 10*3/uL Normal <0.11 [facility] Comment on above: Order Comment: Speci men Type: BLOOD SPECIMENOrdering Facility: [facility] Address: [address] [place] [address] Performed By: #### 5 7021-8 ####HERRERA LABORATORYCLIA [id number] [place] [address] [place] Basophils/100 WBC (Bld) 0.0 % Normal [facility] Comment on above: Order Comment: Speci men Type: BLOOD SPECIMENOrdering Facility: [facility] Address: [address] [place] [address] Performed By: #### 5 7021-8 ####HERRERA LABORATORYCLIA [id number] [place] [address] [place] Differential cell count method Nom (Bld) Manual Normal [facility] Comment on above: Order Comment: Speci men Type: BLOOD SPECIMENOrdering Facility: [facility] Address: [address] [place] [address] Performed By: #### 5 7021-8 ####HERRERA LABORATORYCLIA [id number] [place] [address] [place] Eosinophils (Bld) [#/Vol] 0.00 10*3/uL Normal <0.46 [facility] Comment on above: Order Comment: Speci men Type: BLOOD SPECIMENOrdering Facility: [facility] Address: [address] [place] [address] Performed By: #### 5 7021-8 ####HERRERA LABORATORYCLIA [id number] [address] [place] Eosinophils/100 WBC (Bld) 0.0 % Normal [facility] Comment on above: Order Comment: Speci men Type: BLOOD SPECIMENOrdering Facility: [facility] Address: [address] [place] [address] Performed By: #### 5 7021-8 ####HERRERA LABORATORYCLIA [id number] [address] [place] Erythrocyte distribution width (RBC) [Ratio] 17.6 % High 11.5-15.0 [facility] Comment on above: Order Comment: Speci men Type: BLOOD SPECIMENOrdering Facility: [facility] Address: [address] [place] [address] Performed By: #### 5 7021-8 ####HERRERA LABORATORYCLIA [id number] [address] [place] Hematocrit (Bld) [Volume fraction] 20.7 % Low 39.0-51.0 [facility] Comment on above: Order Comment: Speci men Type: BLOOD SPECIMENOrdering Facility: [facility] Address: [address] [place] [address] Performed By: #### 5 7021-8 ####HERRERA LABORATORYCLIA [id number] [place] [address] [place] Hemoglobin (Bld) [Mass/Vol] 7.0 g/dL Low 13.0-17.0 [facility] Comment on above: Order Comment: Speci men Type: BLOOD SPECIMENOrdering Facility: [facility] [facility] Address: [address] [place] [address] Performed By: #### 5 7021-8 ####HERRERA LABORATORYCLIA [id number] [address] [place] Lymphocytes (Bld) [#/Vol] 0.78 10*3/uL Low 1.00-4.00 [facility] Comment on above: Order Comment: Speci men Type: BLOOD SPECIMENOrdering Facility: [facility] Address: [address] [place] [address] Performed By: #### 5 7021-8 ####HERRERA LABORATORYCLIA [id number] [address] Lymphocytes/100 WBC (Bld) 19.0 % Normal [facility] Comment on above: Order Comment: Speci men Type: BLOOD SPECIMENOrdering Facility: [facility] Address: [address] [place] [address] Performed By: #### 5 7021-8 ####HERRERA LABORATORYCLIA [id number] [address] LYMPHOMA CELL 18.0 % Normal [facility] Comment on above: Order Comment: Speci men Type: BLOOD SPECIMENOrdering Facility: [facility] Address: [address] [place] [address] Performed By: #### 5 7021-8 ####HERRERA LABORATORYCLIA [id number] [address] MCH (RBC) [Entitic mass] 29.4 pg Normal 26.0-34.0 [facility] Comment on above: Order Comment: Speci men Type: BLOOD SPECIMENOrdering Facility: [facility] Address: [address] [place] [address] Performed By: #### 5 7021-8 ####HERRERA LABORATORYCLIA [id number] [address] MCHC (RBC) [Mass/Vol] 33.8 g/dL Normal 30.5-36.0 [facility] Comment on above: Order Comment: Speci men Type: BLOOD SPECIMENOrdering Facility: [facility] Address: [address] [place] [address] Performed By: #### 5 7021-8 ####HERRERA LABORATORYCLIA [id number] [address] MCV (RBC) [Entitic vol] 87.0 fL Normal 80.0-100.0 [facility] Comment on above: Order Comment: Speci men Type: BLOOD SPECIMENOrdering Facility: [facility] Address: [address] [place] [address] Performed By: #### 5 7021-8 ####HERRERA LABORATORYCLIA [id number] [place] [address] [place] Monocytes (Bld) [#/Vol] 0.16 10*3/uL Normal <0.87 [facility] Comment on above: Order Comment: Speci men Type: BLOOD SPECIMENOrdering Facility: [facility] Address: [address] [place] [address] Performed By: #### 5 7021-8 ####HERRERA LABORATORYCLIA [id number] [place] [address] [place] Monocytes/100 WBC (Bld) 4.0 % Normal [facility] Comment on above: Order Comment: Speci men Type: BLOOD SPECIMENOrdering Facility: [facility] Address: [address] [place] [address] Performed By: #### 5 7021-8 ####HERRERA LABORATORYCLIA [id number] [place] [address] [place] Neutrophils (Bld) [#/Vol] 2.42 10*3/uL Normal 1.45-7.50 [facility] Comment on above: Order Comment: Speci men Type: BLOOD SPECIMENOrdering Facility: [facility] Address: [address] [place] [address] Performed By: #### 5 7021-8 ####HERRERA LABORATORYCLIA [id number] [place] [address] [place] Neutrophils/100 WBC (Bld) 59.0 % Normal [facility] Comment on above: Order Comment: Speci men Type: BLOOD SPECIMENOrdering Facility: [facility] Address: [address] [place] [address] Performed By: #### 5 7021-8 ####HERRERA LABORATORYCLIA [id number] [place] [address] [place] Nucleated RBC (Bld) [#/Vol] 10*3/uL Normal <0.01 [facility] Comment on above: Order Comment: Speci men Type: BLOOD SPECIMENOrdering Facility: [facility] Address: [address] [place] [address] Performed By: #### 5 7021-8 ####HERRERA LABORATORYCLIA [id number] [address] [place] Nucleated RBC/100 WBC (Bld) [Ratio] 0.0 /100 WBC Normal [facility] Comment on above: Order Comment: Speci men Type: BLOOD SPECIMENOrdering Facility: [facility] Address: [address] [place] [address] Performed By: #### 5 7021-8 ####HERRERA LABORATORYCLIA [id number] [place] [address] [place] Platelet mean volume (Bld) [Entitic vol] 11.3 fL Normal 9.0-12.7 [facility] Comment on above: Order Comment: Speci men Type: BLOOD SPECIMENOrdering Facility: [facility] Address: [address] [place] [address] Performed By: #### 5 7021-8 ####HERRERA LABORATORYCLIA [id number] [place] [address] [place] Platelets (Bld) [#/Vol] 42 10*3/uL Low 150-[address] [facility] Comment on above: Order Comment: Speci men Type: BLOOD SPECIMENOrdering Facility: [facility] Address: [address] [place] [address] Result Comment: No c lot detected. Performed By: #### 5 7021-8 ####HERRERA LABORATORYCLIA [id number] [address] [place] Platelets Estimate (Bld) [#/Vol] Decreased Normal [facility] Comment on above: Order Comment: Speci men Type: BLOOD SPECIMENOrdering Facility: [facility] Address: [address] [place] [address] Performed By: #### 5 7021-8 ####HERRERA LABORATORYCLIA [id number] [place] [address] [place] RBC (Bld) [#/Vol] 2.38 10*6/uL Low 4.20-6.00 [facility] Comment on above: Order Comment: Speci men Type: BLOOD SPECIMENOrdering Facility: [facility] Address: [address] [place] [address] Performed By: #### 5 7021-8 ####HERRERA LABORATORYCLIA [id number] [address] RED CELL MORPH Reviewed: see result s of individual morphologies Normal [facility] Comment on above: Order Comment: Speci men Type: BLOOD SPECIMENOrdering Facility: [facility] Address: [address] [place] [address] Performed By: #### 5 7021-8 ####HERRERA LABORATORYCLIA [id number] [address] WBC (Bld) [#/Vol] 4.11 10*3/uL Normal 3.70-11.00 [facility] Comment on above: Order Comment: Speci men Type: BLOOD SPECIMENOrdering Facility: [facility] Address: [address] [place] [address] Performed By: #### 5 7021-8 ####HERRERA LABORATORYCLIA [id number] [address] CBC panel Auto (Bld)on 04-06 Erythrocyte distribution width (RBC) [Ratio] 16.8 % High 11.5-15.0 [facility] Comment on above: Order Comment: Speci men Type: BLOOD SPECIMENOrdering Facility: [facility] Address: [address] [place] [address] Performed By: #### 5 8410-2 ####HERRERA LABORATORYCLIA [id number] [address] Hematocrit (Bld) [Volume fraction] 24.0 % Low 39.0-51.0 [facility] Comment on above: Order Comment: Speci men Type: BLOOD SPECIMENOrdering Facility: [facility] Address: [address] [place] [address] Performed By: #### 5 8410-2 ####HERRERA LABORATORYCLIA [id number] [address] [place] Hemoglobin (Bld) [Mass/Vol] 8.1 g/dL Low 13.0-17.0 [facility] Comment on above: Order Comment: Speci men Type: BLOOD SPECIMENOrdering Facility: [facility] Address: [address] [place] [address] Performed By: #### 5 8410-2 ####HERRERA LABORATORYCLIA [id number] [address] [place] [facility] MCH (RBC) [Entitic mass] 29.3 pg Normal 26.0-34.0 [facility] Comment on above: Order Comment: Speci men Type: BLOOD SPECIMENOrdering Facility: [facility] Address: [address] [place] [address] Performed By: #### 5 8410-2 ####HERRERA LABORATORYCLIA [id number] [address] MCHC (RBC) [Mass/Vol] 33.8 g/dL Normal 30.5-36.0 [facility] Comment on above: Order Comment: Speci men Type: BLOOD SPECIMENOrdering Facility: [facility] Address: [address] [place] [address] Performed By: #### 5 8410-2 ####HERRERA LABORATORYCLIA [id number] [address] MCV (RBC) [Entitic vol] 87.0 fL Normal 80.0-100.0 [facility] Comment on above: Order Comment: Speci men Type: BLOOD SPECIMENOrdering Facility: [facility] Address: [address] [place] [address] Performed By: #### 5 8410-2 ####HERRERA LABORATORYCLIA [id number] [address] Nucleated RBC (Bld) [#/Vol] 10*3/uL Normal <0.01 [facility] Comment on above: Order Comment: Speci men Type: BLOOD SPECIMENOrdering Facility: [facility] Address: [address] [place] [address] Performed By: #### 5 8410-2 ####HERRERA LABORATORYCLIA [id number] [place] [id number] [place] Platelet mean volume (Bld) [Entitic vol] 10.5 fL Normal 9.0-12.7 [facility] Comment on above: Order Comment: Speci men Type: BLOOD SPECIMENOrdering Facility: [facility] Address: [address] [place] [address] Performed By: #### 5 8410-2 ####HERRERA LABORATORYCLIA [id number] [place] [address] [facility] [place] Platelets (Bld) [#/Vol] 51 10*3/uL Low 150-[address] [facility] Comment on above: Order Comment: Speci men Type: BLOOD SPECIMENOrdering Facility: [facility] Address: [address] [place] [address] Result Comment: No c lot detected. Performed By: #### 5 8410-2 ####HERRERA LABORATORYCLIA [id number] [address] RBC (Bld) [#/Vol] 2.76 10*6/uL Low 4.20-6.00 [facility] Comment on above: Order Comment: Speci men Type: BLOOD SPECIMENOrdering Facility: [facility] Address: [address] [place] [address] Performed By: #### 5 8410-2 ####HERRERA LABORATORYCLIA [id number] [address] [place] WBC (Bld) [#/Vol] 5.64 10*3/uL Normal 3.70-11.00 [facility] Comment on above: Order Comment: Speci men Type: BLOOD SPECIMENOrdering Facility: [facility] Address: [address] [place] [address] Performed By: #### 5 8410-2 ####HERRERA LABORATORYCLIA [id number] [address] Erythrocyte distribution width (RBC) [Ratio] 17.5 % High 11.5-15.0 [facility] Comment on above: Order Comment: Speci men Type: BLOOD SPECIMENOrdering Facility: [facility] Address: [address] [place] [address] Performed By: #### 5 8410-2 ####HERRERA LABORATORYCLIA [id number] [address] Hematocrit (Bld) [Volume fraction] 21.3 % Low 39.0-51.0 [facility] Comment on above: Order Comment: Speci men Type: BLOOD SPECIMENOrdering Facility: [facility] Address: [address] [place] [address] Performed By: #### 5 8410-2 ####HERRERA LABORATORYCLIA [id number] [address] Hemoglobin (Bld) [Mass/Vol] 7.0 g/dL Low 13.0-17.0 [facility] Comment on above: Order Comment: Speci men Type: BLOOD SPECIMENOrdering Facility: [facility] Address: [address] [place] [address] Performed By: #### 5 8410-2 ####HERRERA LABORATORYCLIA [id number] [address] MCH (RBC) [Entitic mass] 29.2 pg Normal 26.0-34.0 [facility] Comment on above: Order Comment: Speci men Type: BLOOD SPECIMENOrdering Facility: [facility] Address: [address] [place] [address] Performed By: #### 5 8410-2 ####HERRERA LABORATORYCLIA [id number] [address] MCHC (RBC) [Mass/Vol] 32.9 g/dL Normal 30.5-36.0 [facility] Comment on above: Order Comment: Speci men Type: BLOOD SPECIMENOrdering Facility: [facility] Address: [address] [place] [address] Performed By: #### 5 8410-2 ####HERRERA LABORATORYCLIA [id number] [address] MCV (RBC) [Entitic vol] 88.8 fL Normal 80.0-100.0 [facility] Comment on above: Order Comment: Speci men Type: BLOOD SPECIMENOrdering Facility: [facility] Address: [address] [place] [address] Performed By: #### 5 8410-2 ####HERRERA LABORATORYCLIA [id number] [place] [address] [place] Nucleated RBC (Bld) [#/Vol] 10*3/uL Normal <0.01 [facility] Comment on above: Order Comment: Speci men Type: BLOOD SPECIMENOrdering Facility: [facility] Address: [address] [place] [address] Performed By: #### 5 8410-2 ####HERRERA LABORATORYCLIA [id number] [address] [place] Platelet mean volume (Bld) [Entitic vol] 10.5 fL Normal 9.0-12.7 [facility] Comment on above: Order Comment: Speci men Type: BLOOD SPECIMENOrdering Facility: [facility] Address: [address] [place] [address] Performed By: #### 5 8410-2 ####HERRERA LABORATORYCLIA [id number] [address] [place] Platelets (Bld) [#/Vol] 45 10*3/uL Low 150-[address] [facility] Comment on above: Order Comment: Speci men Type: BLOOD SPECIMENOrdering Facility: [facility] Address: [address] [place] [address] Result Comment: No c lot detected. Performed By: #### 5 8410-2 ####HERRERA LABORATORYCLIA [id number] [address] [place] RBC (Bld) [#/Vol] 2.40 10*6/uL Low 4.20-6.00 [facility] Comment on above: Order Comment: Speci men Type: BLOOD SPECIMENOrdering Facility: [facility] Address: [address] [place] [address] Performed By: #### 5 8410-2 ####HERRERA LABORATORYCLIA [id number] [address] [place] WBC (Bld) [#/Vol] 5.23 10*3/uL Normal 3.70-11.00 [facility] Comment on above: Order Comment: Speci men Type: BLOOD SPECIMENOrdering Facility: [facility] Address: [address] [place] [address] Performed By: #### 5 8410-2 ####HERRERA LABORATORYCLIA [id number] [address] [place] Erythrocyte distribution width (RBC) [Ratio] 17.0 % High 11.5-15.0 [facility] Comment on above: Order Comment: Speci men Type: BLOOD SPECIMENOrdering Facility: [facility] Address: [address] [place] [address] Performed By: #### 5 8410-2 ####HERRERA LABORATORYCLIA [id number] [address] Hematocrit (Bld) [Volume fraction] 22.0 % Low 39.0-51.0 [facility] Comment on above: Order Comment: Speci men Type: BLOOD SPECIMENOrdering Facility: [facility] Address: [address] [place] [address] Performed By: #### 5 8410-2 ####HERRERA LABORATORYCLIA [id number] [address] [place] Hemoglobin (Bld) [Mass/Vol] 7.3 g/dL Low 13.0-17.0 [facility] Comment on above: Order Comment: Speci men Type: BLOOD SPECIMENOrdering Facility: [facility] Address: [address] [place] [address] Performed By: #### 5 8410-2 ####HERRERA LABORATORYCLIA [id number] [address] MCH (RBC) [Entitic mass] 29.4 pg Normal 26.0-34.0 [facility] Comment on above: Order Comment: Speci men Type: BLOOD SPECIMENOrdering Facility: [facility] Address: [address] [place] [address] Performed By: #### 5 8410-2 ####HERRERA LABORATORYCLIA [id number] [place] [address] [place] MCHC (RBC) [Mass/Vol] 33.2 g/dL Normal 30.5-36.0 [facility] Comment on above: Order Comment: Speci men Type: BLOOD SPECIMENOrdering Facility: [facility] Address: [address] [place] [address] Performed By: #### 5 8410-2 ####HERRERA LABORATORYCLIA [id number] [place] [address] [place] MCV (RBC) [Entitic vol] 88.7 fL Normal 80.0-100.[address] [facility] Comment on above: Order Comment: Speci men Type: BLOOD SPECIMENOrdering Facility: [facility] Address: [address] [place] [address] Performed By: #### 5 8410-2 ####HERRERA LABORATORYCLIA [id number] [place] [address] [place] Nucleated RBC (Bld) [#/Vol] 10*3/uL Normal <0.01 [facility] Comment on above: Order Comment: Speci men Type: BLOOD SPECIMENOrdering Facility: [facility] Address: [address] [place] [address] Performed By: #### 5 8410-2 ####HERRERA LABORATORYCLIA [id number] [address] [place] Platelet mean volume (Bld) [Entitic vol] 10.3 fL Normal 9.0-12.7 [facility] Comment on above: Order Comment: Speci men Type: BLOOD SPECIMENOrdering Facility: [facility] Address: [address] [place] [address] Performed By: #### 5 8410-2 ####HERRERA LABORATORYCLIA [id number] [place] [address] [place] Platelets (Bld) [#/Vol] 43 10*3/uL Low 150-[address] [facility] Comment on above: Order Comment: Speci men Type: BLOOD SPECIMENOrdering Facility: [facility] Address: [address] [place], [place] [address] Result Comment: No c lot detected. Performed By: #### 5 8410-2 ####HERRERA LABORATORYCLIA [id number] [address] [place] RBC (Bld) [#/Vol] 2.48 10*6/uL Low 4.20-6.00 [facility] Comment on above: Order Comment: Speci men Type: BLOOD SPECIMENOrdering Facility: [facility] Address: [address] [place] [id number] Performed By: #### 5 8410-2 ####HERRERA LABORATORYCLIA [id number] [address] OF [facility] WBC (Bld) [#/Vol] 3.98 10*3/uL Normal 3.70-11.00 [facility] Comment on above: Order Comment: Speci men Type: BLOOD SPECIMENOrdering Facility: [facility] Address: [facility] [place] [address] Performed By: #### 5 8410-2 ####MERIDEN LABORATORYCLIA [id number] [address] CONSULTon 04-06-2025 CONSULT Normal [facility] CONSULT PROGon 04-06-2025 CONSULT PROG [facility] CONSULT PROG [facility] IR PLC STENT URETER VIA EXIS TINGon 04-06-2025 IR PLC STENT URETER VIA EXISTING [facility] Magnesium SerPl-mCncon 04-06 Magnesium [Mass/Vol] 1.9 mg/dL Normal 1.7-2.3 [facility] Comment on above: Order Comment: Speci men Type: BLOOD SPECIMENOrdering Facility: [facility] Address: [address] [place] [id number] Performed By: #### 1 9123-9, 19666-4 ####HERRERA LABORATORYCLIA [id number] [address] [place] NUTRITIONon 04-06-2025 NUTRITION Normal [facility] Renal function 2000 panelon 04-06-2025 Albumin [Mass/Vol] 2.7 g/dL Low 3.9-4.9 [facility] Comment on above: Order Comment: Speci men Type: BLOOD SPECIMENOrdering Facility: [facility] Address: [address] [place] [address] Performed By: #### 1 9123-9, 86252-0 ####HERRERA LABORATORYCLIA [id number] [place] [address] [place] Anion gap [Moles/Vol] 13 mmol/L Normal 8-15 [facility] Comment on above: Order Comment: Speci men Type: BLOOD SPECIMENOrdering Facility: [facility] Address: [address] [place] [address] Performed By: #### 1 9123-9, 83883-3 ####HERRERA LABORATORYCLIA [id number] [place] [address] [place] Calcium [Mass/Vol] 7.5 mg/dL Low 8.5-10.2 [facility] Comment on above: Order Comment: Speci men Type: BLOOD SPECIMENOrdering Facility: [facility] Address: [address] [place] [address] [place] [address] Performed By: #### 1 9123-9, ####HERRERA LABORATORYCLIA [id number] [place] [address] [place] Chloride [Moles/Vol] 105 mmol/L Normal 98-107 [facility] Comment on above: Order Comment: Speci men Type: BLOOD SPECIMENOrdering Facility: [facility] Address: [address] [place] [address] Performed By: #### 1 9123-9, 63904-5 ####HERRERA LABORATORYCLIA [id number] [place] [id number] [place] CO2 [Moles/Vol] 15 mmol/L Low 22-30 [facility] Comment on above: Order Comment: Speci men Type: BLOOD SPECIMENOrdering Facility: [facility] Address: [address] [place] [address] [place] [address] Performed By: #### 1 9123-9, 21442-9 ####HERRERA LABORATORYCLIA [id number] [place] [address] [place] Creatinine [Mass/Vol] 1.91 mg/dL High 0.73-1.22 [facility] Comment on above: Order Comment: Demarco harris Type: BLOOD SPECIMENOrdering Facility: [facility] Address: [address] [place] [address] Performed By: #### 1 9123-9, 10887-9 ####MERIDEN LABORATORYCLIA [id number] [place] [id number] [place] eGFRcr SerPlBld CKD-EPI 2020 36 mL/min/1.73m??? Low >=60 [facility] Comment on above: Order Comment: Demarco harris Type: BLOOD SPECIMENOrdering Facility: [facility] Address: [address] [place] [address] Result Comment: Nancy mated Glomerular Filtration Rate [...] actual GFR. Performed By: #### 1 9123-9, 66019-5 ####MERIDEN LABORATORYCLIA [id number] [place] [id number] [place] Glucose [Mass/Vol] 132 mg/dL High 74-99 [facility] Comment on above: Order Comment: Demarco harris Type: BLOOD SPECIMENOrdering Facility: [facility] Address: [address] [place] [address] Result Comment: The [place] [employer] (ADA) provides guidance for cutoff [...] Standards of Medical Care in Diabetes 2016, [place] [employer]. Diabetes Care. 2016.39(Suppl 1). Performed By: #### 1 9123-9, 80632-9 ####HERRERA LABORATORYCLIA [id number] [place] [address] [place] Phosphate [Mass/Vol] 3.2 mg/dL Normal 2.7-4.8 [facility] Comment on above: Order Comment: Speci men Type: BLOOD SPECIMENOrdering Facility: [facility] Address: [address] [place] [address] Performed By: #### 1 9123-9, 29669-7 ####HERRERA LABORATORYCLIA [id number] [place] [address] [place] Potassium [Moles/Vol] 3.2 mmol/L Low 3.7-5.1 [facility] Comment on above: Order Comment: Speci men Type: BLOOD SPECIMENOrdering Facility: [facility] Address: [address] [place] [address] Performed By: #### 1 9123-9, 74755-9 ####HERRERA LABORATORYCLIA [id number] [place] [address] [place] Sodium [Moles/Vol] 133 mmol/L Low 136-144 [facility] Comment on above: Order Comment: Speci men Type: BLOOD SPECIMENOrdering Facility: [facility] Address: [address] [place] [address] Performed By: #### 1 9123-9, 25852-5 ####HERRERA LABORATORYCLIA [id number] [place] [address] [place] Urea nitrogen [Mass/Vol] 49 mg/dL High 9-24 [facility] Comment on above: Order Comment: Speci men Type: BLOOD SPECIMENOrdering Facility: [facility] Address: [address] [place] [address] Performed By: #### 1 9123-9, 66043-1 ####HERRERA LABORATORYCLIA [id number] [place] [id number] [place] THERAPY NTon 04-06-2025 THERAPY NT Normal [facility] THERAPY NT Normal [facility] THERAPY NT Normal [facility] ABO AND RH ONLYon 04-05-2025 Rh Nom (Bld) Invalid result Normal [facility] Comment on above: Order Comment: Speci men Type: BLOOD SPECIMENOrdering Facility: [facility] Address: [address] [place] [address] Result Comment: Danielle ected result: Previously reported as Invalid on 04/05/2025 at 11:18 AM EDT.Corrected result: Previously reported as Positive on 04/05/2025 at 3:15 PM EDT. Performed By: #### D AGT, ASCR, %MARYANN, [id number], ABORH ####[facility] BLOOD BANKCLIA [id number] [address]#### TSCR ####[facility] BLOOD BANKCLIA [id number] [address] BLOOD BANKCLIA [id number] [place], [place] [id number] [place] [address] ANTIBODY ID PATIENTon 2024 ANTIBODY IDENTIFIED Detected Normal [facility] Comment on above: Order Comment: Speci men Type: BLOOD SPECIMENOrdering Facility: [facility] Address: [address] [place] [address] Result Comment: Auto Anti-E, -WARM and Rouleaux demonstrating Performed By: #### D AGT, ASCR, %MARYANN, [id number], ABORH ####[facility] BLOOD BANKCLIA [id number] [address]#### TSCR ####[facility] BLOOD BANKCLIA [id number] [address] BLOOD BANKCLIA [id number] [place], [place] [id number] [place] [address] BLOOD BANK COMMENTon 025 BLOOD BANK COMMENT See Comment Normal [facility] Comment on above: Order Comment: Speci men Type: BLOOD SPECIMENOrdering Facility: [facility] Address: [address] [place] [address] Result Comment: See physician's report under antibody interpretation on 12-23-24. Performed By: #### D AGT, ASCR, %MARYANN, [id number], ABORH ####[facility] BLOOD BANKCLIA [id number] [place] [address] [place]#### TSCR ####[facility] BLOOD BANKCLIA [id number] [place] [address] [place] [facility] BLOOD BANKCLIA [id number] [place] [address] [place] Basic metabolic 2000 panelon 04-05-2025 Anion gap [Moles/Vol] 13 mmol/L Normal 8-15 [facility] Comment on above: Order Comment: Speci men Type: BLOOD SPECIMENOrdering Facility: [facility] Address: [address] [place] [address] Performed By: #### 2 4321-2, , 2776-06 ####HERRER[facility] LABORATORYCLIA [id number] [place] [address] [place] Calcium [Mass/Vol] 7.0 mg/dL Low 8.5-10.2 [facility] Comment on above: Order Comment: Speci men Type: BLOOD SPECIMENOrdering Facility: [facility] Address: [address] [place] [address] Performed By: #### 2 4321-2, , 2776-06 ####HERRERA LABORATORYCLIA [id number] [address] [place] Chloride [Moles/Vol] 106 mmol/L Normal 98-107 [facility] Comment on above: Order Comment: Speci men Type: BLOOD SPECIMENOrdering Facility: [facility] Address: [address] [place] [id number] Performed By: #### 2 4321-2, , 2776-06 ####HERRERA LABORATORYCLIA [id number] [place] [address] [place] CO2 [Moles/Vol] 15 mmol/L Low 22-30 [facility] Comment on above: Order Comment: Speci men Type: BLOOD SPECIMENOrdering Facility: [facility] Address: [address] [place] [id number] Performed By: #### 2 4321-2, 23415-0, 2776-06 ####[facility] LABORATORYCLIA [id number] [place] [address] [place] Creatinine [Mass/Vol] 1.87 mg/dL High 0.73-1.22 [facility] Comment on above: Order Comment: Demarco harris Type: BLOOD SPECIMENOrdering Facility: [facility] Address: [address] [place] [address] Performed By: #### 2 4321-2, , 2776-06 ####MERIDEN LABORATORYCLIA [id number] [place] [address] [place] eGFRcr SerPlBld CKD-EPI 2020 37 mL/min/1.73m??? Low >=60 [facility] Comment on above: Order Comment: Pema kimberly Type: BLOOD SPECIMENOrdering Facility: [facility] Address: [address] [place] [address] Result Comment: Nancy mated Glomerular Filtration Rate [...] actual GFR. Performed By: #### 2 4321-2, , 2776-06 ####MERIDEN LABORATORYCLIA [id number] [place] [address] [place] Glucose [Mass/Vol] 132 mg/dL High 74-99 [facility] Comment on above: Order Comment: Demarco harris Type: BLOOD SPECIMENOrdering Facility: [facility] Address: [address] [place] [address] Result Comment: The [place] [employer] (ADA) provides guidance for cutoff [...] Standards of Medical Care in Diabetes 2016, [place] [employer]. Diabetes Care. 2016.39(Suppl 1). Performed By: #### 2 4321-2, , 2776-06 ####HERRERA LABORATORYCLIA [id number] [place] [address] [place] Potassium [Moles/Vol] 3.1 mmol/L Low 3.7-5.1 [facility] Comment on above: Order Comment: Demarco harris Type: BLOOD SPECIMENOrdering Facility: [facility] Address: [address] [place] [address] Performed By: #### 2 4321-2, , 2776-06 ####HERRERA LABORATORYCLIA [id number] [address] STATES OF [facility] Sodium [Moles/Vol] 134 mmol/L Low 136-144 [facility] Comment on above: Order Comment: Demarco harris Type: BLOOD SPECIMENOrdering Facility: [facility] Address: [address] [place] [address] Performed By: #### 2 4321-2, , 2776-06 ####HERRERA LABORATORYCLIA [id number] [address] STATES OF [facility] Urea nitrogen [Mass/Vol] 52 mg/dL High 9-24 [facility] Comment on above: Order Comment: Demarco harris Type: BLOOD SPECIMENOrdering Facility: [facility] Address: [address] [place] [address] Performed By: #### 2 4321-2, , 2776-06 ####HERRERA LABORATORYCLIA [id number] [address] [place] CBC W Auto Differential pane l (Bld)on 04-05-2025 Anisocytosis Ql (Bld) Present Normal [facility] Comment on above: Order Comment: Demarco harris Type: BLOOD SPECIMENOrdering Facility: [facility] Address: [address] [place] [address] Performed By: #### 5 7021-8 ####HERRERA LABORATORYCLIA [id number] [place] [address] [place] Basophils (Bld) [#/Vol] 0.00 10*3/uL Normal <0.11 [facility] Comment on above: Order Comment: Speci men Type: BLOOD SPECIMENOrdering Facility: [facility] Address: [address] [place] [address] Performed By: #### 5 7021-8 ####HERRERA LABORATORYCLIA [id number] [address] Basophils/100 WBC (Bld) 0.0 % Normal [facility] Comment on above: Order Comment: Speci men Type: BLOOD SPECIMENOrdering Facility: [facility] Address: [address] [place] [address] Performed By: #### 5 7021-8 ####HERRERA LABORATORYCLIA [id number] [address] [place] Differential cell count method Nom (Bld) Manual Normal [facility] Comment on above: Order Comment: Speci men Type: BLOOD SPECIMENOrdering Facility: [facility] Address: [facility] [place] [address] Performed By: #### 5 7021-8 ####HERRERA LABORATORYCLIA [id number] [address] [place] Eosinophils (Bld) [#/Vol] 0.00 10*3/uL Normal <0.46 [facility] Comment on above: Order Comment: Speci men Type: BLOOD SPECIMENOrdering Facility: [facility] Address: [address] [place] [address] Performed By: #### 5 7021-8 ####HERRERA LABORATORYCLIA [id number] [address] Eosinophils/100 WBC (Bld) 0.0 % Normal [facility] Comment on above: Order Comment: Speci men Type: BLOOD SPECIMENOrdering Facility: [facility] Address: [facility] [place] [address] Performed By: #### 5 7021-8 ####HERRERA LABORATORYCLIA [id number] [place] [address] [place] Erythrocyte distribution width (RBC) [Ratio] 15.9 % High 11.5-15.0 [facility] Comment on above: Order Comment: Speci men Type: BLOOD SPECIMENOrdering Facility: [facility] Address: [address] [place] [address] Performed By: #### 5 7021-8 ####HERRERA LABORATORYCLIA [id number] [place] [address] [place] Hematocrit (Bld) [Volume fraction] 20.3 % Low 39.0-51.0 [facility] Comment on above: Order Comment: Speci men Type: BLOOD SPECIMENOrdering Facility: [facility] Address: [address] [place] [address] Performed By: #### 5 7021-8 ####HERRERA LABORATORYCLIA [id number] [place] [address] [place] Hemoglobin (Bld) [Mass/Vol] 6.6 g/dL Low 13.0-17.0 [facility] Comment on above: Order Comment: Speci men Type: BLOOD SPECIMENOrdering Facility: [facility] Address: [address] [place] [address] Performed By: #### 5 7021-8 ####HERRERA LABORATORYCLIA [id number] [place] [address] [place] Lymphocytes (Bld) [#/Vol] 1.34 10*3/uL Normal 1.00-4.00 [facility] Comment on above: Order Comment: Speci men Type: BLOOD SPECIMENOrdering Facility: [facility] Address: [address] [place] [address] Performed By: #### 5 7021-8 ####HERRERA LABORATORYCLIA [id number] [address] [place] Lymphocytes/100 WBC (Bld) 33.0 % Normal [facility] Comment on above: Order Comment: Speci men Type: BLOOD SPECIMENOrdering Facility: [facility] Address: [address] [place], [place] [address] Performed By: #### 5 7021-8 ####HERRERA LABORATORYCLIA [id number] [address] MCH (RBC) [Entitic mass] 29.3 pg Normal 26.0-34.0 [facility] Comment on above: Order Comment: Speci men Type: BLOOD SPECIMENOrdering Facility: [facility] Address: [address] [place] [address] Performed By: #### 5 7021-8 ####HERRERA LABORATORYCLIA [id number] [address] MCHC (RBC) [Mass/Vol] 32.5 g/dL Normal 30.5-36.0 [facility] Comment on above: Order Comment: Speci men Type: BLOOD SPECIMENOrdering Facility: [facility] Address: [address] [place] [address] Performed By: #### 5 7021-8 ####HERRERA LABORATORYCLIA [id number] [address] MCV (RBC) [Entitic vol] 90.2 fL Normal 80.0-100.[address] [facility] Comment on above: Order Comment: Speci men Type: BLOOD SPECIMENOrdering Facility: [facility] Address: [address] [place] [address] Performed By: #### 5 7021-8 ####HERRERA LABORATORYCLIA [id number] [address] Metamyelocytes/100 WBC (Bld) 2.0 % Normal [facility] Comment on above: Order Comment: Speci men Type: BLOOD SPECIMENOrdering Facility: [facility] Address: [address] [place] [address] Performed By: #### 5 7021-8 ####HERRERA LABORATORYCLIA [id number] [address] Monocytes (Bld) [#/Vol] 0.20 10*3/uL Normal <0.87 [facility] Comment on above: Order Comment: Speci men Type: BLOOD SPECIMENOrdering Facility: [facility] Address: [address] [place] [address] Performed By: #### 5 7021-8 ####HERRERA LABORATORYCLIA [id number] [place] [address] [place] Monocytes/100 WBC (Bld) 5.0 % Normal [facility] Comment on above: Order Comment: Speci men Type: BLOOD SPECIMENOrdering Facility: [facility] Address: [address] [place] [address] Performed By: #### 5 7021-8 ####HERRERA LABORATORYCLIA [id number] [place] [address] [place] Neutrophils (Bld) [#/Vol] 2.44 10*3/uL Normal 1.45-7.50 [facility] Comment on above: Order Comment: Speci men Type: BLOOD SPECIMENOrdering Facility: [facility] Address: [address] [place] [address] Performed By: #### 5 7021-8 ####HERRERA LABORATORYCLIA [id number] [place] [address] [place] Neutrophils/100 WBC (Bld) 60.0 % Normal [facility] Comment on above: Order Comment: Speci men Type: BLOOD SPECIMENOrdering Facility: [facility] Address: [address] [place] [address] Performed By: #### 5 7021-8 ####HERRERA LABORATORYCLIA [id number] [place] [address] [place] Nucleated RBC (Bld) [#/Vol] 10*3/uL Normal <0.01 [facility] Comment on above: Order Comment: Speci men Type: BLOOD SPECIMENOrdering Facility: [facility] Address: [address] [place] [address] Performed By: #### 5 7021-8 ####HERRERA LABORATORYCLIA [id number] [place] [address] [place] Nucleated RBC/100 WBC (Bld) [Ratio] 0.0 /100 WBC Normal [facility] Comment on above: Order Comment: Speci men Type: BLOOD SPECIMENOrdering Facility: [facility] Address: [address] [place] [address] Performed By: #### 5 7021-8 ####HERRERA LABORATORYCLIA [id number] [place] [address] [place] Ovalocytes LM Ql (Bld) Few Normal [facility] Comment on above: Order Comment: Speci men Type: BLOOD SPECIMENOrdering Facility: [facility] Address: [address] [place] [address] Performed By: #### 5 7021-8 ####HERRERA LABORATORYCLIA [id number] [place] [address] [place] Platelet mean volume (Bld) [Entitic vol] 10.6 fL Normal 9.0-12.7 [facility] Comment on above: Order Comment: Speci men Type: BLOOD SPECIMENOrdering Facility: [facility] Address: [address] [place] [address] Performed By: #### 5 7021-8 ####HERRERA LABORATORYCLIA [id number] [place] [address] [place] Platelets (Bld) [#/Vol] 37 10*3/uL Low 150-400 [facility] Comment on above: Order Comment: Speci men Type: BLOOD SPECIMENOrdering Facility: [facility] Address: [address] [place] [address] Result Comment: No c lot detected. Performed By: #### 5 7021-8 ####HERRERA LABORATORYCLIA [id number] [place] [id number] [place] Platelets Estimate (Bld) [#/Vol] Decreased Normal [facility] Comment on above: Order Comment: Speci men Type: BLOOD SPECIMENOrdering Facility: [facility] Address: [address] [place] [address] Performed By: #### 5 7021-8 ####HERRERA LABORATORYCLIA [id number] [place] [address] [place] RBC (Bld) [#/Vol] 2.25 10*6/uL Low 4.20-6.00 [facility] Comment on above: Order Comment: Speci men Type: BLOOD SPECIMENOrdering Facility: [facility] Address: [address] [place] [address] Performed By: #### 5 7021-8 ####HERRERA LABORATORYCLIA [id number] [address] RED CELL MORPH Reviewed: see result s of individual morphologies Normal [facility] Comment on above: Order Comment: Speci men Type: BLOOD SPECIMENOrdering Facility: [facility] Address: [address] [place] [address] Performed By: #### 5 7021-8 ####HERRERA LABORATORYCLIA [id number] [place] [address] [place] WBC (Bld) [#/Vol] 4.07 10*3/uL Normal 3.70-11.00 [facility] Comment on above: Order Comment: Speci men Type: BLOOD SPECIMENOrdering Facility: [facility] Address: [address] [place] [address] Performed By: #### 5 7021-8 ####HERRERA LABORATORYCLIA [id number] [address] WBC Left Shift Ql (Bld) Present Normal [facility] Comment on above: Order Comment: Speci men Type: BLOOD SPECIMENOrdering Facility: [facility] Address: [address] [place] [address] Performed By: #### 5 7021-8 ####HERRERA LABORATORYCLIA [id number] [address] CBC panel Auto (Bld)on 04-05 Erythrocyte distribution width (RBC) [Ratio] 16.5 % High 11.5-15.0 [facility] Comment on above: Order Comment: Speci men Type: BLOOD SPECIMENOrdering Facility: [facility] Address: [address] [place] [address] Performed By: #### 5 8410-2 ####HERRERA LABORATORYCLIA [id number] [address] Hematocrit (Bld) [Volume fraction] 22.1 % Low 39.0-51.0 [facility] Comment on above: Order Comment: Speci men Type: BLOOD SPECIMENOrdering Facility: [facility] Address: [address] [place] [address] Performed By: #### 5 8410-2 ####HERRERA LABORATORYCLIA [id number] [address] [place] Hemoglobin (Bld) [Mass/Vol] 7.4 g/dL Low 13.0-17.0 [facility] Comment on above: Order Comment: Speci men Type: BLOOD SPECIMENOrdering Facility: [facility] Address: [address] [place] [address] Performed By: #### 5 8410-2 ####HERRERA LABORATORYCLIA [id number] [address] MCH (RBC) [Entitic mass] 29.0 pg Normal 26.0-34.0 [facility] Comment on above: Order Comment: Speci men Type: BLOOD SPECIMENOrdering Facility: [facility] Address: [address] [place] [address] Performed By: #### 5 8410-2 ####HERRERA LABORATORYCLIA [id number] [address] MCHC (RBC) [Mass/Vol] 33.5 g/dL Normal 30.5-36.0 [facility] Comment on above: Order Comment: Speci men Type: BLOOD SPECIMENOrdering Facility: [facility] Address: [address] [place] [address] Performed By: #### 5 8410-2 ####HERRERA LABORATORYCLIA [id number] [address] MCV (RBC) [Entitic vol] 86.7 fL Normal 80.0-100.[address] [facility] Comment on above: Order Comment: Speci men Type: BLOOD SPECIMENOrdering Facility: [facility] Address: [address] [place] [address] Performed By: #### 5 8410-2 ####HERRERA LABORATORYCLIA [id number] [address] Nucleated RBC (Bld) [#/Vol] 10*3/uL Normal <0.01 [facility] Comment on above: Order Comment: Speci men Type: BLOOD SPECIMENOrdering Facility: [facility] Address: [address] [place] [address] Performed By: #### 5 8410-2 ####HERRERA LABORATORYCLIA [id number] [place] [address] [place] Platelet mean volume (Bld) [Entitic vol] 11.8 fL Normal 9.0-12.7 [facility] Comment on above: Order Comment: Speci men Type: BLOOD SPECIMENOrdering Facility: [facility] Address: [address] [place] [address] Performed By: #### 5 8410-2 ####HERRERA LABORATORYCLIA [id number] [place] [address] [place] Platelets (Bld) [#/Vol] 49 10*3/uL Low 150-[address] [facility] Comment on above: Order Comment: Speci men Type: BLOOD SPECIMENOrdering Facility: [facility] Address: [address] [place] [address] Result Comment: No c lot detected. Performed By: #### 5 8410-2 ####HERRERA LABORATORYCLIA [id number] [place] [address] [place] RBC (Bld) [#/Vol] 2.55 10*6/uL Low 4.20-6.00 [facility] Comment on above: Order Comment: Speci men Type: BLOOD SPECIMENOrdering Facility: [facility] Address: [address] [place] [address] Performed By: #### 5 8410-2 ####HERRERA LABORATORYCLIA [id number] [place] [address] [place] WBC (Bld) [#/Vol] 3.99 10*3/uL Normal 3.70-11.00 [facility] Comment on above: Order Comment: Speci men Type: BLOOD SPECIMENOrdering Facility: [facility] Address: [address] [place] [address] Performed By: #### 5 8410-2 ####HERRERA LABORATORYCLIA [id number] [address] Erythrocyte distribution width (RBC) [Ratio] 15.9 % High 11.5-15.0 [facility] Comment on above: Order Comment: Speci men Type: BLOOD SPECIMENOrdering Facility: [facility] Address: [address] [place] [address] Performed By: #### 5 8410-2 ####HERRERA LABORATORYCLIA [id number] [address] Hematocrit (Bld) [Volume fraction] 20.6 % Low 39.0-51.0 [facility] Comment on above: Order Comment: Speci men Type: BLOOD SPECIMENOrdering Facility: [facility] Address: [address] [place] [address] Performed By: #### 5 8410-2 ####HERRERA LABORATORYCLIA [id number] [address] Hemoglobin (Bld) [Mass/Vol] 6.8 g/dL Low 13.0-17.0 [facility] Comment on above: Order Comment: Speci men Type: BLOOD SPECIMENOrdering Facility: [facility] Address: [address] [place] [address] Performed By: #### 5 8410-2 ####HERRERA LABORATORYCLIA [id number] [address] MCH (RBC) [Entitic mass] 29.7 pg Normal 26.0-34.0 [facility] Comment on above: Order Comment: Speci men Type: BLOOD SPECIMENOrdering Facility: [facility] Address: [address] [place] [address] Performed By: #### 5 8410-2 ####HERRERA LABORATORYCLIA [id number] [address] MCHC (RBC) [Mass/Vol] 33.0 g/dL Normal 30.5-36.0 [facility] Comment on above: Order Comment: Speci men Type: BLOOD SPECIMENOrdering Facility: [facility] Address: [address] [place] [address] Performed By: #### 5 8410-2 ####HERRERA LABORATORYCLIA [id number] [place] [address] [place] MCV (RBC) [Entitic vol] 90.0 fL Normal 80.0-100.[address] [facility] Comment on above: Order Comment: Speci men Type: BLOOD SPECIMENOrdering Facility: [facility] Address: [address] [place] [address] Performed By: #### 5 8410-2 ####HERRERA LABORATORYCLIA [id number] [place] [address] [place] Nucleated RBC (Bld) [#/Vol] 10*3/uL Normal <0.01 [facility] Comment on above: Order Comment: Speci men Type: BLOOD SPECIMENOrdering Facility: [facility] Address: [address] [place] [address] Performed By: #### 5 8410-2 ####HERRERA LABORATORYCLIA [id number] [address] [place] Platelet mean volume (Bld) [Entitic vol] 10.1 fL Normal 9.0-12.7 [facility] Comment on above: Order Comment: Speci men Type: BLOOD SPECIMENOrdering Facility: [facility] Address: [address] [place] [address] Performed By: #### 5 8410-2 ####HERRERA LABORATORYCLIA [id number] [address] [place] Platelets (Bld) [#/Vol] 44 10*3/uL Low 150-[address] [facility] Comment on above: Order Comment: Speci men Type: BLOOD SPECIMENOrdering Facility: [facility] Address: [address] [place] [address] Result Comment: No c lot detected. Performed By: #### 5 8410-2 ####HERRERA LABORATORYCLIA [id number] [address] [place] RBC (Bld) [#/Vol] 2.29 10*6/uL Low 4.20-6.00 [facility] Comment on above: Order Comment: Speci men Type: BLOOD SPECIMENOrdering Facility: [facility] Address: [address] [place] [address] Performed By: #### 5 8410-2 ####HERRERA LABORATORYCLIA [id number] [address] WBC (Bld) [#/Vol] 3.68 10*3/uL Low 3.70-11.00 [facility] Comment on above: Order Comment: Speci men Type: BLOOD SPECIMENOrdering Facility: [facility] Address: [address] [place] [address] Performed By: #### 5 8410-2 ####HERRERA LABORATORYCLIA [id number] [address] Erythrocyte distribution width (RBC) [Ratio] 16.0 % High 11.5-15.0 [facility] Comment on above: Order Comment: Speci men Type: BLOOD SPECIMENOrdering Facility: [facility] Address: [address] [place] [address] Performed By: #### 5 8410-2 ####HERRERA LABORATORYCLIA [id number] [address] Hematocrit (Bld) [Volume fraction] 20.5 % Low 39.0-51.0 [facility] Comment on above: Order Comment: Speci men Type: BLOOD SPECIMENOrdering Facility: [facility] Address: [address] [place] [address] Performed By: #### 5 8410-2 ####HERRERA LABORATORYCLIA [id number] [address] Hemoglobin (Bld) [Mass/Vol] 6.8 g/dL Low 13.0-17.0 [facility] Comment on above: Order Comment: Speci men Type: BLOOD SPECIMENOrdering Facility: [facility] Address: [address] [place] [address] Performed By: #### 5 8410-2 ####HERRERA LABORATORYCLIA [id number] [address] MCH (RBC) [Entitic mass] 29.8 pg Normal 26.0-34.0 [facility] Comment on above: Order Comment: Speci men Type: BLOOD SPECIMENOrdering Facility: [facility] Address: [address] [place] [address] Performed By: #### 5 8410-2 ####HERRERA LABORATORYCLIA [id number] [address] MCHC (RBC) [Mass/Vol] 33.2 g/dL Normal 30.5-36.0 [facility] Comment on above: Order Comment: Speci men Type: BLOOD SPECIMENOrdering Facility: [facility] Address: [address] [place] [address] Performed By: #### 5 8410-2 ####MERID[facility] LABORATORYCLIA [id number] [address] MCV (RBC) [Entitic vol] 89.9 fL Normal 80.0-100.0 [facility] Comment on above: Order Comment: Speci men Type: BLOOD SPECIMENOrdering Facility: [facility] Address: [address] [place] [address] Performed By: #### 5 8410-2 ####MERID[facility] LABORATORYCLIA [id number] [address] Nucleated RBC (Bld) [#/Vol] 10*3/uL Normal <0.01 [facility] Comment on above: Order Comment: Speci men Type: BLOOD SPECIMENOrdering Facility: [facility] Address: [address] [place] [address] Performed By: #### 5 8410-2 ####HERRERA LABORATORYCLIA [id number] [address] Platelet mean volume (Bld) [Entitic vol] 12.4 fL Normal 9.0-12.7 [facility] Comment on above: Order Comment: Speci men Type: BLOOD SPECIMENOrdering Facility: [facility] Address: [address] [place] [address] Performed By: #### 5 8410-2 ####MERIDEN LABORATORYCLIA [id number] [place] [address] [place] Platelets (Bld) [#/Vol] 48 10*3/uL Low 150-[address] [facility] Comment on above: Order Comment: Speci men Type: BLOOD SPECIMENOrdering Facility: [facility] Address: [address] [place] [address] Performed By: #### 5 8410-2 ####HERRERA LABORATORYCLIA [id number] [place] [address] [place] RBC (Bld) [#/Vol] 2.28 10*6/uL Low 4.20-6.00 [facility] Comment on above: Order Comment: Speci men Type: BLOOD SPECIMENOrdering Facility: [facility] Address: [address] [place] [address] Performed By: #### 5 8410-2 ####HERRERA LABORATORYCLIA [id number] [address] WBC (Bld) [#/Vol] 4.00 10*3/uL Normal 3.70-11.00 [facility] Comment on above: Order Comment: Speci men Type: BLOOD SPECIMENOrdering Facility: [facility] Address: [address] [place] [address] Performed By: #### 5 8410-2 ####HERRERA LABORATORYCLIA [id number] [address] [place] CONSULTon 04-05-2025 CONSULT Normal [facility] CONSULT PROGon 04-05-2025 CONSULT PROG Normal [facility] CONSULT PROG [facility] MAE DIRECTon 04-05-2025 DAGT, ANTI-C3B,C3D Negative [facility] Comment on above: Order Comment: Speci men Type: BLOOD SPECIMENOrdering Facility: [facility] Address: [address] [place] [address] Performed By: #### D AGT, ASCR, %MARYANN, [id number], ABORH ####[facility] BLOOD BANKCLIA [id number] [place] [address] [place]#### TSCR ####[facility] BLOOD BANKCLIA [id number] [place] [id number] [place] [address] BLOOD BANKCLIA [id number] [place], [place] [id number] [place] [address] [place] DAGT, ANTI-IGG Positive [facility] Comment on above: Order Comment: Speci men Type: BLOOD SPECIMENOrdering Facility: [facility] Address: [address] [place] [address] Performed By: #### D AGT, ASCR, %MARYANN, [id number], ABORH ####[facility] BLOOD BANKCLIA [id number] [place], [place] [address] [place] [address] [place]#### TSCR ####[facility] BLOOD BANKCLIA [id number] [place], [place] [address] [place] [address] BLOOD BANKCLIA [id number] [address] [place] DAGT, POLYSPECIFIC AHG Positive Normal [facility] Comment on above: Order Comment: Speci men Type: BLOOD SPECIMENOrdering Facility: [facility] Address: [address] [place] [address] Performed By: #### D AGT, ASCR, %MARYANN, [id number], ABORH ####[facility] BLOOD BANKCLIA [id number] [address] [place]#### TSCR ####[facility] BLOOD BANKCLIA [id number] [place], [place] [address] [place] [address] BLOOD BANKCLIA [id number] [address] [place] ECG COMPLETEon 04-05-2025 ECG COMPLETE Normal [facility] Magnesium SerPl-mCncon 04-05 Magnesium [Mass/Vol] 1.9 mg/dL Normal 1.7-2.3 [facility] Comment on above: Order Comment: Speci men Type: BLOOD SPECIMENOrdering Facility: [facility] Address: [address] [place] [address] Performed By: #### 2 4321-2, 53118-0, 2777-1 ####MERIDEN LABORATORYCLIA [id number] [place] [address] [place] Phosphate SerPl-mCncon 04-05 Phosphate [Mass/Vol] 1.9 mg/dL Low 2.7-4.8 [facility] Comment on above: Order Comment: Speci men Type: BLOOD SPECIMENOrdering Facility: [facility] Address: [address] [place] [address] Performed By: #### 2 4321-2, 83991-2, 2777-1 ####MERIDEN LABORATORYCLIA [id number] [place] [address] [place] THERAPY NTon 04-05-2025 THERAPY NT Normal [facility] THERAPY NT Normal [facility] TYPE + SCREENon 04-05-2025 ABO A [facility] Comment on above: Order Comment: Speci men Type: BLOOD SPECIMENOrdering Facility: [facility] Address: [address] [place] [address] Result Comment: Danielle ected result: Previously reported as Indeterminate ABO on 04/05/2025 at 11:18 AM EDT. Performed By: #### D AGT, ASCR, %MARYANN, [id number], ABORH ####[facility] BLOOD BANKCLIA [id number] [place] [address] [place]#### TSCR ####[facility] BLOOD BANKCLIA [id number] [address] BLOOD BANKCLIA [id number] [place] [address] [place] Rh Nom (Bld) Positive [facility] Comment on above: Order Comment: Speci men Type: BLOOD SPECIMENOrdering Facility: [facility] Address: [address] [place] [address] Performed By: #### D AGT, ASCR, %MARYANN, [id number], ABORH ####[facility] BLOOD BANKCLIA [id number] [place] [address] [place]#### TSCR ####[facility] BLOOD BANKCLIA [id number] [address] BLOOD BANKCLIA [id number] [place] [address] [place] TYPE AND SCREEN EXPIRATION 04/08/2025 23:59 Normal [facility] Comment on above: Order Comment: Speci men Type: BLOOD SPECIMENOrdering Facility: [facility] Address: [address] [place] [address] Result Comment: Danielle ected result: Previously reported as 04/08/2025 23:59 on 04/05/2025 at 6:32 AM EDT. Performed By: #### D AGT, ASCR, %MARYANN, [id number], ABORH ####[facility] BLOOD BANKCLIA [id number] [place] [address] [facility] [place]#### TSCR ####[facility] BLOOD BANKCLIA [id number] [address] BLOOD BANKCLIA [id number] [place] [address] [place] Bacteria Bld Culton 04-04-20 Bacteria identified Cx Nom (Bld) CULTURE, BLOOD: No growth 5 days Normal [facility] Comment on above: Performed By: #### 6 00-7 ####[facility] LABCLIA [id number] [address] [place] Bacteria identified Cx Nom (Bld) CULTURE, BLOOD: No growth 5 days [facility] Comment on above: Performed By: #### 6 00-7 ####[facility] LABCLIA [id number] [place] [address] [place] Basic metabolic 2000 panelon 04-04-2025 Anion gap [Moles/Vol] 13 mmol/L Normal 8-15 [facility] Comment on above: Order Comment: Speci men Type: BLOOD SPECIMENOrdering Facility: [facility] Address: [address] [place] [address] Performed By: #### 1 9123-9, 29606-3, 2777-1 ####MERIDEN LABORATORYCLIA [id number] [place] [address] [place] Calcium [Mass/Vol] 7.4 mg/dL Low 8.5-10.2 [facility] Comment on above: Order Comment: Speci men Type: BLOOD SPECIMENOrdering Facility: [facility] Address: [address] [facility] [place] [address] Performed By: #### 1 9123-9, 17523-6, 2776- ####HERRERA LABORATORYCLIA [id number] [place] [address] [place] Chloride [Moles/Vol] 105 mmol/L Normal 98-107 [facility] Comment on above: Order Comment: Speci men Type: BLOOD SPECIMENOrdering Facility: [facility] Address: [address] [place] [address] Performed By: #### 1 9123-9, 34806-1, 2776- ####HERRERA LABORATORYCLIA [id number] [place] [address] [place] CO2 [Moles/Vol] 16 mmol/L Low 22-30 [facility] Comment on above: Order Comment: Speci men Type: BLOOD SPECIMENOrdering Facility: [facility] Address: [address] [place] [address] Performed By: #### 1 9123-9, 16142-7, 2776- ####HERRERA LABORATORYCLIA [id number] [place] [address] [place] Creatinine [Mass/Vol] 2.55 mg/dL High 0.73-1.22 [facility] Comment on above: Order Comment: Speci men Type: BLOOD SPECIMENOrdering Facility: [facility] Address: [address] [place] [address] Performed By: #### 1 9123-9, 45720-7, 2776- ####HERRERA LABORATORYCLIA [id number] [place] [address] [place] eGFRcr SerPlBld CKD-EPI 2020 26 mL/min/1.73m??? Low >=60 [facility] Comment on above: Order Comment: Speci men Type: BLOOD SPECIMENOrdering Facility: [facility] Address: [address] [place] [address] Result Comment: Nancy mated Glomerular Filtration Rate [...] actual GFR. Performed By: #### 1 9123-9, 32592-6, 2776- ####MERIDEN LABORATORYCLIA [id number] [place] [id number] [place] Glucose [Mass/Vol] 120 mg/dL High 74-99 [facility] Comment on above: Order Comment: Demarco harris Type: BLOOD SPECIMENOrdering Facility: [facility] Address: [address] [place], [place] [address] Result Comment: The [place] [employer] (ADA) provides guidance for cutoff [...] Standards of Medical Care in Diabetes 2016, [place] [employer]. Diabetes Care. 2016.39(Suppl 1). Performed By: #### 1 9123-9, 99986-8, 2776-06 ####MERIDEN LABORATORYCLIA [id number] [place] [address] [place] Potassium [Moles/Vol] 3.5 mmol/L Low 3.7-5.1 [facility] Comment on above: Order Comment: Demarco harris Type: BLOOD SPECIMENOrdering Facility: [facility] Address: [address] [place] [address] Performed By: #### 1 9123-9, 44816-7, 2776- ####MERIDEN LABORATORYCLIA [id number] [place] [address] [place] Sodium [Moles/Vol] 134 mmol/L Low 136-144 [facility] Comment on above: Order Comment: Speci men Type: BLOOD SPECIMENOrdering Facility: [facility] Address: [address] [place] [address] Performed By: #### 1 9123-9, 90076-9, 7- ####HERRERA LABORATORYCLIA [id number] [place] [address] [place] Urea nitrogen [Mass/Vol] 67 mg/dL High 9-24 [facility] Comment on above: Order Comment: Speci men Type: BLOOD SPECIMENOrdering Facility: [facility] Address: [address] [place] [address] Performed By: #### 1 9123-9, 93937-7, 2776-06 ####HERRERA LABORATORYCLIA [id number] [place] [address] [place] CBC W Auto Differential pane l (Bld)on 04-04-2025 Anisocytosis Ql (Bld) Present Normal [facility] Comment on above: Order Comment: Speci men Type: BLOOD SPECIMENOrdering Facility: [facility] Address: [address] [place] [address] Performed By: #### 5 7021-8 ####HERRERA LABORATORYCLIA [id number] [place] [address] [place] Basophils (Bld) [#/Vol] 0.00 10*3/uL Normal <0.11 [facility] Comment on above: Order Comment: Speci men Type: BLOOD SPECIMENOrdering Facility: [facility] Address: [address] [place] [address] Performed By: #### 5 7021-8 ####HERRERA LABORATORYCLIA [id number] [address] Basophils/100 WBC (Bld) 0.0 % Normal [facility] Comment on above: Order Comment: Speci men Type: BLOOD SPECIMENOrdering Facility: [facility] Address: [address] [place] [address] Performed By: #### 5 7021-8 ####HERRERA LABORATORYCLIA [id number] [address] [place] Differential cell count method Nom (Bld) Manual Normal [facility] Comment on above: Order Comment: Speci men Type: BLOOD SPECIMENOrdering Facility: [facility] Address: [address] [place] [address] Performed By: #### 5 7021-8 ####HERRERA LABORATORYCLIA [id number] [place] [address] [place] Eosinophils (Bld) [#/Vol] 0.00 10*3/uL Normal <0.46 [facility] Comment on above: Order Comment: Speci men Type: BLOOD SPECIMENOrdering Facility: [facility] Address: [address] [place] [address] Performed By: #### 5 7021-8 ####HERRERA LABORATORYCLIA [id number] [address] [place] Eosinophils/100 WBC (Bld) 0.0 % Normal [facility] Comment on above: Order Comment: Speci men Type: BLOOD SPECIMENOrdering Facility: [facility] Address: [address] [place] [address] Performed By: #### 5 7021-8 ####HERRERA LABORATORYCLIA [id number] [address] [place] Erythrocyte distribution width (RBC) [Ratio] 15.9 % High 11.5-15.0 [facility] Comment on above: Order Comment: Speci men Type: BLOOD SPECIMENOrdering Facility: [facility] Address: [address] [place] [address] Performed By: #### 5 7021-8 ####HERRERA LABORATORYCLIA [id number] [address] [place] Hematocrit (Bld) [Volume fraction] 22.8 % Low 39.0-51.0 [facility] Comment on above: Order Comment: Speci men Type: BLOOD SPECIMENOrdering Facility: [facility] Address: [address] [place] [address] Performed By: #### 5 7021-8 ####HERRERA LABORATORYCLIA [id number] [address] [place] Hemoglobin (Bld) [Mass/Vol] 7.5 g/dL Low 13.0-17.0 [facility] Comment on above: Order Comment: Speci men Type: BLOOD SPECIMENOrdering Facility: [facility] Address: [address] [place] [address] Performed By: #### 5 7021-8 ####HERRERA LABORATORYCLIA [id number] [place] [address] [place] Lymphocytes (Bld) [#/Vol] 3.18 10*3/uL Normal 1.00-4.00 [facility] Comment on above: Order Comment: Speci men Type: BLOOD SPECIMENOrdering Facility: [facility] Address: [address] [place] [address] Performed By: #### 5 7021-8 ####HERRERA LABORATORYCLIA [id number] [address] Lymphocytes/100 WBC (Bld) 46.0 % Normal [facility] Comment on above: Order Comment: Speci men Type: BLOOD SPECIMENOrdering Facility: [facility] Address: [address] [place] [address] Performed By: #### 5 7021-8 ####HERRERA LABORATORYCLIA [id number] [address] [place] MCH (RBC) [Entitic mass] 29.6 pg Normal 26.0-34.0 [facility] Comment on above: Order Comment: Speci men Type: BLOOD SPECIMENOrdering Facility: [facility] Address: [address] [place] [address] Performed By: #### 5 7021-8 ####HERRERA LABORATORYCLIA [id number] [address] STATES [facility] MCHC (RBC) [Mass/Vol] 32.9 g/dL Normal 30.5-36.0 [facility] Comment on above: Order Comment: Speci men Type: BLOOD SPECIMENOrdering Facility: [facility] Address: [address] [place] [address] Performed By: #### 5 7021-8 ####HERRERA LABORATORYCLIA [id number] [address] [place] MCV (RBC) [Entitic vol] 90.1 fL Normal 80.0-100.[address] [facility] Comment on above: Order Comment: Speci men Type: BLOOD SPECIMENOrdering Facility: [facility] Address: [address] [place] [address] Performed By: #### 5 7021-8 ####HERRERA LABORATORYCLIA [id number] [address] Metamyelocytes/100 WBC (Bld) 2.0 % Normal [facility] Comment on above: Order Comment: Speci men Type: BLOOD SPECIMENOrdering Facility: [facility] Address: [address] [place] [address] Performed By: #### 5 7021-8 ####HERRERA LABORATORYCLIA [id number] [address] [place] Monocytes (Bld) [#/Vol] 0.13 10*3/uL Normal <0.87 [facility] Comment on above: Order Comment: Speci men Type: BLOOD SPECIMENOrdering Facility: [facility] Address: [address] [place] [address] Performed By: #### 5 7021-8 ####HERRERA LABORATORYCLIA [id number] [address] Monocytes/100 WBC (Bld) 2.0 % Normal [facility] Comment on above: Order Comment: Speci men Type: BLOOD SPECIMENOrdering Facility: [facility] Address: [address] [place] [address] Performed By: #### 5 7021-8 ####HERRERA LABORATORYCLIA [id number] [place] [address] [place] Neutrophils (Bld) [#/Vol] 3.18 10*3/uL Normal 1.45-7.50 [facility] Comment on above: Order Comment: Speci men Type: BLOOD SPECIMENOrdering Facility: [facility] Address: [address] [place] [address] Performed By: #### 5 7021-8 ####HERRERA LABORATORYCLIA [id number] [address] [place] Neutrophils/100 WBC (Bld) 48.0 % Normal [facility] Comment on above: Order Comment: Speci men Type: BLOOD SPECIMENOrdering Facility: [facility] Address: [address] [place] [address] Performed By: #### 5 7021-8 ####HERRERA LABORATORYCLIA [id number] [place] [address] [place] Nucleated RBC (Bld) [#/Vol] 10*3/uL Normal <0.01 [facility] Comment on above: Order Comment: Speci men Type: BLOOD SPECIMENOrdering Facility: [facility] Address: [address] [place] [address] Performed By: #### 5 7021-8 ####HERRERA LABORATORYCLIA [id number] [address] [place] Nucleated RBC/100 WBC (Bld) [Ratio] 0.0 /100 WBC Normal [facility] Comment on above: Order Comment: Speci men Type: BLOOD SPECIMENOrdering Facility: [facility] Address: [address] [place] [address] Performed By: #### 5 7021-8 ####HERRERA LABORATORYCLIA [id number] [address] [place] Platelet mean volume (Bld) [Entitic vol] 11.3 fL Normal 9.0-12.7 [facility] Comment on above: Order Comment: Speci men Type: BLOOD SPECIMENOrdering Facility: [facility] Address: [address] [place] [address] Performed By: #### 5 7021-8 ####HERRERA LABORATORYCLIA [id number] [place] [address] [facility] [place] Platelets (Bld) [#/Vol] 47 10*3/uL Low 150-[address] [facility] Comment on above: Order Comment: Speci men Type: BLOOD SPECIMENOrdering Facility: [facility] Address: [address] [place] [address] Result Comment: No c lot detected. Performed By: #### 5 7021-8 ####HERRERA LABORATORYCLIA [id number] [address] Platelets Estimate (Bld) [#/Vol] Decreased Normal [facility] Comment on above: Order Comment: Speci men Type: BLOOD SPECIMENOrdering Facility: [facility] Address: [address] [place] [address] Performed By: #### 5 7021-8 ####HERRERA LABORATORYCLIA [id number] [address] [place] RBC (Bld) [#/Vol] 2.53 10*6/uL Low 4.20-6.00 [facility] Comment on above: Order Comment: Speci men Type: BLOOD SPECIMENOrdering Facility: [facility] Address: [address] [place] [address] Performed By: #### 5 7021-8 ####HERRERA LABORATORYCLIA [id number] [address] RED CELL MORPH Reviewed: see result s of individual morphologies Normal [facility] Comment on above: Order Comment: Speci men Type: BLOOD SPECIMENOrdering Facility: [facility] Address: [address] [place] [address] Performed By: #### 5 7021-8 ####HERRERA LABORATORYCLIA [id number] [address] Variant lymphocytes/100 WBC (Bld) 2.0 % Normal [facility] Comment on above: Order Comment: Speci men Type: BLOOD SPECIMENOrdering Facility: [facility] Address: [address] [place] [address] Performed By: #### 5 7021-8 ####HERRERA LABORATORYCLIA [id number] [address] WBC (Bld) [#/Vol] 6.62 10*3/uL Normal 3.70-11.00 [facility] Comment on above: Order Comment: Speci men Type: BLOOD SPECIMENOrdering Facility: [facility] Address: [address] [place] [address] Performed By: #### 5 7021-8 ####HERRERA LABORATORYCLIA [id number] [address] WBC Left Shift Ql (Bld) Present Normal [facility] Comment on above: Order Comment: Speci men Type: BLOOD SPECIMENOrdering Facility: [facility] Address: [address] [place] [address] Performed By: #### 5 7021-8 ####HERRERA LABORATORYCLIA [id number] [address] CBC panel Auto (Bld)on 04-04 Erythrocyte distribution width (RBC) [Ratio] 15.9 % High 11.5-15.0 [facility] Comment on above: Order Comment: Speci men Type: BLOOD SPECIMENOrdering Facility: [facility] Address: [address] [place] [address] Performed By: #### 5 8410-2 ####HERRERA LABORATORYCLIA [id number] [address] Hematocrit (Bld) [Volume fraction] 22.8 % Low 39.0-51.0 [facility] Comment on above: Order Comment: Speci men Type: BLOOD SPECIMENOrdering Facility: [facility] Address: [address] [place] [address] Performed By: #### 5 8410-2 ####HERRERA LABORATORYCLIA [id number] [address] Hemoglobin (Bld) [Mass/Vol] 7.6 g/dL Low 13.0-17.0 [facility] Comment on above: Order Comment: Speci men Type: BLOOD SPECIMENOrdering Facility: [facility] Address: [address] [place] [address] Performed By: #### 5 8410-2 ####HERRERA LABORATORYCLIA [id number] [address] MCH (RBC) [Entitic mass] 30.0 pg Normal 26.0-34.0 [facility] Comment on above: Order Comment: Speci men Type: BLOOD SPECIMENOrdering Facility: [facility] Address: [address] [place] [address] Performed By: #### 5 8410-2 ####HERRERA LABORATORYCLIA [id number] [address] [place] MCHC (RBC) [Mass/Vol] 33.3 g/dL Normal 30.5-36.0 [facility] Comment on above: Order Comment: Speci men Type: BLOOD SPECIMENOrdering Facility: [facility] Address: [address] [place] [address] Performed By: #### 5 8410-2 ####HERRERA LABORATORYCLIA [id number] [place] [address] [place] MCV (RBC) [Entitic vol] 90.1 fL Normal 80.0-100.[address] [facility] Comment on above: Order Comment: Speci men Type: BLOOD SPECIMENOrdering Facility: [facility] Address: [address] [place] [address] Performed By: #### 5 8410-2 ####HERRERA LABORATORYCLIA [id number] [address] [place] Nucleated RBC (Bld) [#/Vol] 10*3/uL Normal <0.01 [facility] Comment on above: Order Comment: Speci men Type: BLOOD SPECIMENOrdering Facility: [facility] Address: [address] [place] [address] Performed By: #### 5 8410-2 ####HERRERA LABORATORYCLIA [id number] [place] [address] [place] Platelet mean volume (Bld) [Entitic vol] 11.8 fL Normal 9.0-12.7 [facility] Comment on above: Order Comment: Speci men Type: BLOOD SPECIMENOrdering Facility: [facility] Address: [address] [place] [address] Performed By: #### 5 8410-2 ####HERRERA LABORATORYCLIA [id number] [address] [place] Platelets (Bld) [#/Vol] 38 10*3/uL Low 150-[address] [facility] Comment on above: Order Comment: Speci men Type: BLOOD SPECIMENOrdering Facility: [facility] Address: [address] [place] [address] Performed By: #### 5 8410-2 ####HERRERA LABORATORYCLIA [id number] [address] RBC (Bld) [#/Vol] 2.53 10*6/uL Low 4.20-6.00 [facility] Comment on above: Order Comment: Speci men Type: BLOOD SPECIMENOrdering Facility: [facility] Address: [address] [place] [address] Performed By: #### 5 8410-2 ####HERRERA LABORATORYCLIA [id number] [address] WBC (Bld) [#/Vol] 5.53 10*3/uL Normal 3.70-11.00 [facility] Comment on above: Order Comment: Speci men Type: BLOOD SPECIMENOrdering Facility: [facility] Address: [address] [place] [address] Performed By: #### 5 8410-2 ####HERRERA LABORATORYCLIA [id number] [address] Erythrocyte distribution width (RBC) [Ratio] 15.9 % High 11.5-15.0 [facility] Comment on above: Order Comment: Speci men Type: BLOOD SPECIMENOrdering Facility: [facility] Address: [address] [place] [address] Performed By: #### 5 8410-2, 93477-1 ####[facility] LABORATORYCLIA [id number] [address] Hematocrit (Bld) [Volume fraction] 24.5 % Low 39.0-51.0 [facility] Comment on above: Order Comment: Speci men Type: BLOOD SPECIMENOrdering Facility: [facility] Address: [address] [place] [address] Performed By: #### 5 8410-2, 84050-4 ####[facility] LABORATORYCLIA [id number] [address] Hemoglobin (Bld) [Mass/Vol] 8.1 g/dL Low 13.0-17.0 [facility] Comment on above: Order Comment: Speci men Type: BLOOD SPECIMENOrdering Facility: [facility] Address: [address] [place] [address] Performed By: #### 5 8410-2, 65076-7 ####[facility] LABORATORYCLIA [id number] [address] MCH (RBC) [Entitic mass] 30.3 pg Normal 26.0-34.0 [facility] Comment on above: Order Comment: Speci men Type: BLOOD SPECIMENOrdering Facility: [facility] Address: [address] [place] [address] Performed By: #### 5 8410-2, 14740-9 ####H[facility] LABORATORYCLIA [id number] [address] MCHC (RBC) [Mass/Vol] 33.1 g/dL Normal 30.5-36.0 [facility] Comment on above: Order Comment: Speci men Type: BLOOD SPECIMENOrdering Facility: [facility] Address: [address] [place] [address] Performed By: #### 5 8410-2, 67639-7 ####H[facility] LABORATORYCLIA [id number] [address] MCV (RBC) [Entitic vol] 91.8 fL Normal 80.0-100.0 [facility] Comment on above: Order Comment: Speci men Type: BLOOD SPECIMENOrdering Facility: [facility] Address: [address] [place] [address] Performed By: #### 5 8410-2, 48633-8 ####HERRERA LABORATORYCLIA [id number] [address] Nucleated RBC (Bld) [#/Vol] 10*3/uL Normal <0.01 [facility] Comment on above: Order Comment: Speci men Type: BLOOD SPECIMENOrdering Facility: [facility] Address: [address] [place] [address] Performed By: #### 5 8410-2, 91679-6 ####HERR[facility]A LABORATORYCLIA [id number] [address] [place] Platelet mean volume (Bld) [Entitic vol] 12.0 fL Normal 9.0-12.7 [facility] Comment on above: Order Comment: Speci men Type: BLOOD SPECIMENOrdering Facility: [facility] Address: [address] [place] [address] Performed By: #### 5 8410-2, 09748-8 ####H[facility]ER[facility] LABORATORYCLIA [id number] [place] [address] [place] Platelets (Bld) [#/Vol] 49 10*3/uL Low 150-[address] [facility] Comment on above: Order Comment: Speci men Type: BLOOD SPECIMENOrdering Facility: [facility] Address: [address] [place] [address] Performed By: #### 5 8410-2, 41006-5 ####H[facility] LABORATORYCLIA [id number] [place] [address] [place] RBC (Bld) [#/Vol] 2.67 10*6/uL Low 4.20-6.00 [facility] Comment on above: Order Comment: Speci men Type: BLOOD SPECIMENOrdering Facility: [facility] Address: [address] [place] [address] Performed By: #### 5 8410-2, 43406-4 ####H[facility]ER[facility] LABORATORYCLIA [id number] [place] [address] [place] WBC (Bld) [#/Vol] 6.69 10*3/uL Normal 3.70-11.00 [facility] Comment on above: Order Comment: Speci men Type: BLOOD SPECIMENOrdering Facility: [facility] Address: [address] [place] [address] Performed By: #### 5 8410-2, 42553-0 ####HERRERA LABORATORYCLIA [id number] [address] [place] CONSULT PROGon 04-04-2025 CONSULT PROG Normal [facility] CONSULT PROG Normal [facility] Fibrinogen PPP-mCncon 2024 Fibrinogen Coag (PPP) [Mass/Vol] 538 mg/dL High 200-400 [facility] Comment on above: Order Comment: Demarco harris Type: BLOOD SPECIMENOrdering Facility: [facility] Address: [address] [place] [address] Result Comment[facility] Performed By: #### 3 255-7, 94813-4, 68256-5 ####[facility] LABORATORYCLIA [id number] [place] [address] [place] Haptoglob SerPl-mCncon 04-04 Haptoglobin [Mass/Vol] 236 mg/dL Normal 31-238 [facility] Comment on above: Order Comment: Demarco harris Type: BLOOD SPECIMENOrdering Facility: [facility] Address: [address] [place] [address] Performed By: #### 4 542-7, 2531-0 ####[facility] LABCLIA [id number] [place] [address] [place] LDH SerPl-cCncon 04-04-2025 LDH [Catalytic activity/Vol] 248 U/L High 135-225 [facility] Comment on above: Order Comment: Demarco harris Type: BLOOD SPECIMENOrdering Facility: [facility] Address: [address] [place] [address] Result Comment: Hemo lysis present. The origin of the hemolysis, in vitro versus an in vivo hemolytic process, cannot be distinguished via this assay alone. In vitro hemolysis may lead to non-physiological (spurious) elevation in lactate dehydrogenase (LDH) results. Theresult should be interpreted in context of the clinical setting and other test results. Suggest reorder as clinically indicated. Performed By: #### 4 542-7, 2532-0 ####[facility] LABCLIA [id number] [place] [address] [place] Magnesium SerPl-mCncon 04-04 Magnesium [Mass/Vol] 1.8 mg/dL Normal 1.7-2.3 [facility] Comment on above: Order Comment: Speci men Type: BLOOD SPECIMENOrdering Facility: [facility] Address: [address] [place] [address] Performed By: #### 1 9123-9, 23824-3, 2777-1 ####[facility] LABORATORYCLIA [id number] [place] [address] [place] PT panel Coag (PPP)on 2024 INR Coag (PPP) [Relative time] 1.0 {INR} Normal 0.9-1.3 [facility] Comment on above: Order Comment: Specjoao harris Type: BLOOD SPECIMENOrdering Facility: [facility] Address: [address] [place] [address] Result Comment: Emilee min K Antagonist (VKA) Therapeutic Range: INR 2 to 3 (Target INR of 2.5)Note: For patients treated with VKA drugs, such as warfarin, the [employer] 2012 Guideline recommends a therapeutic INR range of 2 to 3 (target INR of 2.5). This recommendation includes high-risk patients with antiphospholipid syndrome with previous arterial or venous thromboembolism, current-generation mechanical or bioprosthetic aortic heart valve replacement.Note: Patients with mechanical aortic valve replacement and additional risk factors for thromboembolic events (atrial fibrillation, previous thromboembolism, LV dysfunction, hypercoagulable conditions) or an older generation mechanical AVR (i.e., ball in-Cage) or any mechanical MVR should have a INR therapeutic range of 2.5 to 3.5 (target INR of 3).Barbara GH, et al. Chest 2012, 141:7S-47SNishimura RA, et al. [facility] 2017, 70: 252-289 Performed By: #### 3 255-7, 89666-0, 45348-2 ####[facility] LABORATORYCLIA [id number] [address] [place] PT Coag (PPP) [Time] 10.5 s Normal 9.7-13.0 [facility] Comment on above: Order Comment: Demarco harris Type: BLOOD SPECIMENOrdering Facility: [facility] Address: [address] [place] [address] Result Comment: Samp le checked for clot. Performed By: #### 3 255-7, 46248-1, 66440-4 ####[facility] LABORATORYCLIA [id number] [place] [address] [place] Phosphate SerPl-mCncon 04-04 Phosphate [Mass/Vol] 3.0 mg/dL Normal 2.7-4.8 [facility] Comment on above: Order Comment: Speci men Type: BLOOD SPECIMENOrdering Facility: [facility] Address: [address] [place] [address] Performed By: #### 1 9123-9, 89454-5, 2777-1 ####[facility] LABORATORYCLIA [id number] [place] [id number] [place] Retics #on 04-04-2025 Reticulocytes (Bld) [#/Vol] 0.69737 10*3/uL Normal 0.018-0.10 0 [facility] Comment on above: Order Comment: Speci men Type: BLOOD SPECIMENOrdering Facility: [facility] Address: [address] [place] [address] Performed By: #### 5 8410-2, 97088-1 ####[facility] LABORATORYCLIA [id number] [place] [id number] [place] Reticulocytes (Bld) [#/Vol]o n 04-04-2025 Reticulocytes/100 RBC (Bld) 1.7 % Normal 0.4-2.0 [facility] Comment on above: Order Comment: Speci men Type: BLOOD SPECIMENOrdering Facility: [facility] Address: [address] [place] [address] Performed By: #### 5 8410-2, 99632-8 ####[facility] LABORATORYCLIA [id number] [place] [id number] [place] THERAPY NTon 04-04-2025 THERAPY NT Normal [facility] aPTT PPPon 04-04-2025 aPTT Coag (PPP) [Time] 30.3 s Normal 23.0-32.4 [facility] Comment on above: Order Comment: Speci men Type: BLOOD SPECIMENOrdering Facility: [facility] Address: [address] [place] [address] Result Comment: [facility] le checked for clot. Performed By: #### 3 255-7, 36863-7, 93157-2 ####HERRER[facility] LABORATORYCLIA [id number] [place] [address] [place] BRIEF OP NOTon 04-03-2025 BRIEF OP NOT Normal [facility] CASE MANAGEMon 04-03-2025 CASE MANAGEM Normal [facility] CONSULTon 04-03-2025 CONSULT Normal [facility] CONSULT Normal [facility] CONSULT PROGon 04-03-2025 CONSULT PROG Normal [facility] Comprehensive metabolic 2000 panelon 04-03-2025 Albumin [Mass/Vol] 3.4 g/dL Low 3.9-4.9 [facility] Comment on above: Order Comment: Speci men Type: BLOOD SPECIMENOrdering Facility: [facility] Address: [address] [place] [address] Performed By: #### 1 9123-9, 2777-1, 13063-8, 3084-1 ####HERRERA LABORATORYCLIA [id number] [address] [place] ALP [Catalytic activity/Vol] 64 U/L Normal 38-113 [facility] Comment on above: Order Comment: Speci men Type: BLOOD SPECIMENOrdering Facility: [facility] Address: [address] [place] [address] Performed By: #### 1 9123-9, 2777-1, 39643-1, 3084-1 ####H[facility] LABORATORYCLIA [id number] [place] [address] [place] ALT [Catalytic activity/Vol] 32 U/L Normal 10-54 [facility] Comment on above: Order Comment: Speci men Type: BLOOD SPECIMENOrdering Facility: [facility] Address: [address] [place] [address] Performed By: #### 1 9123-9, 2777-1, 43691-3, 3084-1 ####HERRER[facility] LABORATORYCLIA [id number] [place] [address] [place] Anion gap [Moles/Vol] 16 mmol/L High 8-15 [facility] Comment on above: Order Comment: Speci men Type: BLOOD SPECIMENOrdering Facility: [facility] Address: [address] [place] [address] Performed By: #### 1 9123-9, 2777-1, 59618-5, 308-1 ####HERRER[facility] LABORATORYCLIA [id number] [place] [address] [place] AST [Catalytic activity/Vol] 37 U/L Normal 14-40 [facility] Comment on above: Order Comment: Speci men Type: BLOOD SPECIMENOrdering Facility: [facility] Address: [address] [place] [address] Performed By: #### 1 9123-9, 2777-1, 35362-6, 308-1 ####[facility] LABORATORYCLIA [id number] [place] [address] [place] Bilirubin [Mass/Vol] 1.2 mg/dL Normal 0.2-1.3 [facility] Comment on above: Order Comment: Speci men Type: BLOOD SPECIMENOrdering Facility: [facility] Address: [address] [place] [address] Performed By: #### 1 9123-9, 2777-1, 91570-1, 308-1 ####[facility] LABORATORYCLIA [id number] [address] [place] Calcium [Mass/Vol] 7.7 mg/dL Low 8.5-10.2 [facility] Comment on above: Order Comment: Speci men Type: BLOOD SPECIMENOrdering Facility: [facility] Address: [address] [place] [address] Performed By: #### 1 9123-9, 2777-1, 00684-4, 3084-1 ####[facility] LABORATORYCLIA [id number] [place] [address] [place] Chloride [Moles/Vol] 101 mmol/L Normal 98-107 [facility] Comment on above: Order Comment: Speci men Type: BLOOD SPECIMENOrdering Facility: [facility] Address: [address] [place] [address] Performed By: #### 1 9123-9, 2777-1, 59625-8, 3084-1 ####[facility] LABORATORYCLIA [id number] [place] [address] [place] CO2 [Moles/Vol] 17 mmol/L Low 22-30 [facility] Comment on above: Order Comment: Speci men Type: BLOOD SPECIMENOrdering Facility: [facility] Address: [address] [place] [address] Performed By: #### 1 9123-9, 2777-1, 44833-5, 3083- ####[facility] LABORATORYCLIA [id number] [place] [address] [place] Creatinine [Mass/Vol] 3.42 mg/dL High 0.73-1.22 [facility] Comment on above: Order Comment: Speci men Type: BLOOD SPECIMENOrdering Facility: [facility] Address: [address] [place] [address] Performed By: #### 1 9123-9, 277-1, 27612-7, 3083- ####[facility] LABORATORYCLIA [id number] [place] [address] [place] eGFRcr SerPlBld CKD-EPI 2020 18 mL/min/1.73m??? Low >=60 [facility] Comment on above: Order Comment: Speci men Type: BLOOD SPECIMENOrdering Facility: [facility] Address: [address] [place] [address] Result Comment: Nancy mated Glomerular Filtration Rate [...] actual GFR. Performed By: #### 1 9123-9, 2777-1, 41274-9, 3084-1 ####HERRERA LABORATORYCLIA [id number] [place] [address] [place] Glucose [Mass/Vol] 122 mg/dL High 74-99 [facility] Comment on above: Order Comment: Demarco harris Type: BLOOD SPECIMENOrdering Facility: [facility] Address: [address] [place], [place] [address] Result Comment: The [employer] (ADA) provides guidance for cutoff [...] Standards of Medical Care in Diabetes 2016, [employer]. Diabetes Care. 2016.39(Suppl 1). Performed By: #### 1 9123-9, 2777-1, 60182-0, 3084-1 ####[facility] LABORATORYCLIA [id number] [place] [address] [place] Potassium [Moles/Vol] 4.1 mmol/L Normal 3.7-5.1 [facility] Comment on above: Order Comment: Demarco harris Type: BLOOD SPECIMENOrdering Facility: [facility] Address: [address] [place] [address] Performed By: #### 1 9123-9, 2777-1, 12244-2, 3084-1 ####[facility] LABORATORYCLIA [id number] [place] [address] [place] Protein [Mass/Vol] 5.6 g/dL Low 6.3-8.0 [facility] Comment on above: Order Comment: Demarco harris Type: BLOOD SPECIMENOrdering Facility: [facility] Address: [address] [place] [address] Performed By: #### 1 9123-9, 2777-1, 72244-7, 3084-1 ####HERRER[facility] LABORATORYCLIA [id number] [place] [address] [place] Sodium [Moles/Vol] 134 mmol/L Low 136-144 [facility] Comment on above: Order Comment: Speci men Type: BLOOD SPECIMENOrdering Facility: [facility] Address: [address] [place], [place] [address] Performed By: #### 1 9123-9, 2777-1, 06593-4, 3083-1 ####[facility] LABORATORYCLIA [id number] [place] [address] [place] Urea nitrogen [Mass/Vol] 69 mg/dL High 03-04 [facility] Comment on above: Order Comment: Speci men Type: BLOOD SPECIMENOrdering Facility: [facility] Address: [address] [place] [address] Performed By: #### 1 9123-9, 277-1, 59282-3, 3083-06 ####[facility] LABORATORYCLIA [id number] [place] [address] [place] Creatinine Unsp time (U) [Ma ss/Vol]on 04-03-2025 Creatinine (U) [Mass/Vol] 107.5 mg/dL Normal 20.0-300.0 [facility] Comment on above: Order Comment: Speci men Type: URINE SPECIMENOrdering Facility: [facility] Address: [address] [place] [address] Performed By: #### 3 5674-1 ####[facility] LABCLIA [id number] [place] [id number] [place] IR PLACE NEPH TUBE PERCon IR PLACE NEPH TUBE PERC Normal M [facility] Magnesium SerPl-mCncon 04-03 Magnesium [Mass/Vol] 1.8 mg/dL Normal 1.7-2.3 [facility] Comment on above: Order Comment: Speci men Type: BLOOD SPECIMENOrdering Facility: [facility] Address: [address] [place] [address] Performed By: #### 1 9123-9, 2777-1, 77328-3, 308-1 ####[facility] LABORATORYCLIA [id number] [place] [address] [place] OCCULT BLD EXAM-DIAGon 04-03 OCCULT BLD EXAM-DIAG Positive Abnormal [facility] Comment on above: Performed By: #### O BDX ####[facility] LABORATORYCLIA [id number] [place] [address] [place] PT EDon 04-03-2025 PT ED Normal [facility] PT panel Coag (PPP)on 2024 INR Coag (PPP) [Relative time] 1.1 {INR} Normal 0.9-1.3 [facility] Comment on above: Order Comment: Speci men Type: BLOOD SPECIMENOrdering Facility: [facility] Address: [address] [place] [address] Result Comment: Emilee min K Antagonist (VKA) Therapeutic Range: INR 2 to 3 (Target INR of 2.5)Note: For patients treated with VKA drugs, such as warfarin, the [employer] 2012 Guideline recommends a therapeutic INR range of 2 to 3 (target INR of 2.5). This recommendation includes high-risk patients with antiphospholipid syndrome with previous arterial or venous thromboembolism, current-generation mechanical or bioprosthetic aortic heart valve replacement.Note: Patients with mechanical aortic valve replacement and additional risk factors for thromboembolic events (atrial fibrillation, previous thromboembolism, LV dysfunction, hypercoagulable conditions) or an older generation mechanical AVR (i.e., ball in-Cage) or any mechanical MVR should have a INR therapeutic range of 2.5 to 3.5 (target INR of 3).Barbara GH, et al. Chest 2012, 141:7S-47SAdalberto RA, et al. [facility] 2017, 70: 252-289 Performed By: #### 3 4528-0 ####[facility] LABORATORYCLIA [id number] [place] [id number] [place] PT Coag (PPP) [Time] 11.7 s Normal 9.7-13.0 [facility] Comment on above: Order Comment: Speci men Type: BLOOD SPECIMENOrdering Facility: [facility] Address: [address] [place] [address] Performed By: #### 3 4528-0 ####[facility] LABORATORYCLIA [id number] [place] [id number] [place] Phosphate SerPl-mCncon 04-03 Phosphate [Mass/Vol] 3.7 mg/dL Normal 2.7-4.8 [facility] Comment on above: Order Comment: Speci men Type: BLOOD SPECIMENOrdering Facility: [facility] Address: [address] [place] [address] Performed By: #### 1 9123-9, 2777-1, 97032-5, 3084-1 ####[facility] LABORATORYCLIA [id number] [place] [address] [place] Sodium ?Tm Ur-sCncon 025 Sodium Unsp time (U) [Moles/Vol] <20 Normal 14- [facility] Comment on above: Order Comment: Speci men Type: URINE SPECIMENOrdering Facility: [facility] Address: [address] [place] [address] Performed By: #### 3 5678-2 ####[facility] LABCLIA [id number] [address] [place] THERAPY NTon 04-03-2025 THERAPY NT Normal [facility] THERAPY NT [facility] U[facility]Pl[facility] Urate [Mass/Vol] 7.1 mg/dL Normal 4.0-8.1 [facility] Comment on above: Order Comment: Speci men Type: BLOOD SPECIMENOrdering Facility: [facility] Address: [address] [place] [address] Performed By: #### 1 9123-9, 2777-1, 91673-7, 3084-1 ####[facility] LABORATORYCLIA [id number] [place] [address] [place] ALLIED HEALTHon 04-02-2025 ALLIED HEALTH Normal [facility] ALLIED HEALTH Normal [facility] ARTERIAL BLOOD GASESon 04-02 Base deficit (BldA) [Moles/Vol] -6 mmol/L Low -2-0 [facility] Comment on above: Order Comment: Speci men Type: ARTERIAL BLOOD SPECIMENOrdering Facility: [facility] Address: [address] [place] [address] Performed By: #### A LLBG ####[facility] RESPIRATORYCLIA [id number] [facility]IR[facility] [id number] [address] [address] Calcium.ionized (Bld) [Mass/Vol] 1.04 mmol/L Low 1.08-1.30 [facility] Comment on above: Order Comment: Speci men Type: ARTERIAL BLOOD SPECIMENOrdering Facility: [facility] Address: [address] [place] [address] Performed By: #### A LLBG ####[facility] [id number] [facility]PIRAT[facility] [id number] [address] [address] Carboxyhemoglobin (BldA) [Mass fraction] 1.7 % Normal 0.0-2.0 [facility] Comment on above: Order Comment: Speci men Type: ARTERIAL BLOOD SPECIMENOrdering Facility: [facility] Address: [address] [place] [address] Result Comment: Carb oxyhemoglobin Reference Range for Smokers: 2.0-8.0% Performed By: #### A LLBG ####[facility] [id number] [facility] RESPIRAT[facility] [id number] [address] [address] CO2 (Bld) [Partial pressure] 26 mm Hg Low 36-46 [facility] Comment on above: Order Comment: Speci men Type: ARTERIAL BLOOD SPECIMENOrdering Facility: [facility] Address: [address] [place] [address] Performed By: #### A LLBG ####[facility] [id number] [facility] RESPIRAT[facility] [id number] [address] [address] CO2 adjusted to patient's actual temperature (Bld) [Partial pressure] Normal [facility] Comment on above: Order Comment: Speci men Type: ARTERIAL BLOOD SPECIMENOrdering Facility: [facility] Address: [address] [place] [address] Performed By: #### A LLBG ####[facility] [id number] [facility] RESPIRAT[facility] [id number] [address] [address] HCO3 (Bld) [Moles/Vol] 17 mmol/L Low 22-26 [facility] Comment on above: Order Comment: Speci men Type: ARTERIAL BLOOD SPECIMENOrdering Facility: [facility] Address: [address] [place] [address] Performed By: #### A LLBG ####[facility] RESPIRATORYCLIA [id number] [facility] RES[facility]IR[facility] [id number] [address] [address] Hemoglobin (Bld) [Mass/Vol] 11.0 g/dL Low 13.0-17.0 [facility] Comment on above: Order Comment: Speci men Type: ARTERIAL BLOOD SPECIMENOrdering Facility: [facility] Address: [address] [place] [id number] Performed By: #### A LLBG ####[facility]ATORYVERM[facility] [id number] [facility]OSP[facility] RESPIRAT[facility] [id number] [address] [address] Lactate [Moles/Vol] 2.4 mmol/L High 0.5-2.2 [facility] Comment on above: Order Comment: Speci men Type: ARTERIAL BLOOD SPECIMENOrdering Facility: [facility] Address: [address] [place] [id number] Performed By: #### A LLBG ####[facility]ATORYVERMONT [facility] [id number] [facility]OS[facility] RESPIRATORY [id number] [address] [address] LITERS 4 Liters/min Normal [facility] Comment on above: Order Comment: Speci men Type: ARTERIAL BLOOD SPECIMENOrdering Facility: [facility] Address: [address] [place] [id number] Performed By: #### A LLBG ####[facility] RESPIRATORYIA [id number] [facility]OSP[facility] RES[facility]IRAT[facility] [id number] [address] [address] Methemoglobin (Bld) [Mass fraction] % Normal 0.0-1.5 [facility] Comment on above: Order Comment: Speci men Type: ARTERIAL BLOOD SPECIMENOrdering Facility: [facility] Address: [address] [place] [id number] Performed By: #### A LLBG ####[facility]ATORYVERMONT [facility] [id number] [facility]OS[facility] RESPIRATORY [id number] [address] [address] O2 THERAPY NC = Nasal Cannula Normal [facility] Comment on above: Order Comment: Speci men Type: ARTERIAL BLOOD SPECIMENOrdering Facility: [facility] Address: [address] [place] [address] Performed By: #### A LLBG ####[facility] RESPIRATORYIA [id number] [facility]OSP[facility] RESPIRATORY [id number] [address] [address] Oxygen (Bld) [Partial pressure] 74 mm Hg Low 85-95 [facility] Comment on above: Order Comment: Speci men Type: ARTERIAL BLOOD SPECIMENOrdering Facility: [facility] Address: [address] [place] [address] Performed By: #### A LLBG ####[facility]ATORYVERMONT [facility] [id number] [facility]OS[facility] RESPIRAT[facility] [id number] [address] [address] Oxygen adjusted to patient's actual temperature (Bld) [Partial pressure] Normal [facility] Comment on above: Order Comment: Speci men Type: ARTERIAL BLOOD SPECIMENOrdering Facility: [facility] Address: [address] [place] [address] Performed By: #### A LLBG ####[facility]PIRATORYVERMONT STATE [facility] [id number] [facility]OSP[facility] RESPIRATORY [id number] [address] [address] Oxyhemoglobin (BldA) [Mass fraction] 95 % Normal 95-98 [facility] Comment on above: Order Comment: Speci men Type: ARTERIAL BLOOD SPECIMENOrdering Facility: [facility] Address: [address] [place] [address] Performed By: #### A LLBG ####[facility] RESPIRATORYIA [id number] [facility] RESPIRATORY [id number] [address] [address] pH (Bld) 7.44 [pH] Normal 7.35-7.45 [facility] Comment on above: Order Comment: Speci men Type: ARTERIAL BLOOD SPECIMENOrdering Facility: [facility] Address: [address] [place] [address] Performed By: #### A LLBG ####[facility] RESPIRATORYCLIA [id number] [facility] RESPIRATORY [id number] [address] [address] pH adjusted to patient's actual temperature (Bld) Normal [facility] Comment on above: Order Comment: Speci men Type: ARTERIAL BLOOD SPECIMENOrdering Facility: [facility] Address: [address] [place] [address] Performed By: #### A LLBG ####[facility] RESPIRATORYCLIA [id number] [facility] RESPIRATORY [id number] [address] [address] Potassium [Moles/Vol] 4.2 mmol/L Normal 3.5-5.0 [facility] Comment on above: Order Comment: Speci men Type: ARTERIAL BLOOD SPECIMENOrdering Facility: [facility] Address: [address] [place] [address] Performed By: #### A LLBG ####[facility] RESPIRATORYCLIA [id number] [facility]OS[facility] RESPIRATORY [id number] [address] [address] Bacteria Bld Culton 04-02-20 25 Bacteria identified Cx Nom (Bld) Normal [facility] Comment on above: Performed By: #### 6 00-7 ####[facility] MA[facility] LABCLIA [id number] [place] [address] [place] CASE MANAGEMon 04-02-2025 CASE MANAGEM Normal [facility] CASE MGT INIT ASSESon 2024 [facility] CBC panel Auto (Bld)on 04-02 Erythrocyte distribution width (RBC) [Ratio] 15.9 % High 11.5-15.0 [facility] Comment on above: Order Comment: Speci men Type: BLOOD SPECIMENOrdering Facility: [facility] Address: [address] [place] [address] Performed By: #### 5 8410-2 ####[facility] LABORATORYCLIA [id number] [place], [place] [address] [place] [address] [place] Hematocrit (Bld) [Volume fraction] 35.5 % Low 39.0-51.0 [facility] Comment on above: Order Comment: Speci men Type: BLOOD SPECIMENOrdering Facility: [facility] Address: [address] [place] [address] Performed By: #### 5 8410-2 ####[facility] LABORATORYCLIA [id number] [address] [place] Hemoglobin (Bld) [Mass/Vol] 11.2 g/dL Low 13.0-17.0 [facility] Comment on above: Order Comment: Speci men Type: BLOOD SPECIMENOrdering Facility: [facility] Address: [address] [place] [address] Performed By: #### 5 8410-2 ####H[facility] LABORATORYCLIA [id number] [address] MCH (RBC) [Entitic mass] 29.9 pg Normal 26.0-34.0 [facility] Comment on above: Order Comment: Speci men Type: BLOOD SPECIMENOrdering Facility: [facility] Address: [address] [place] [address] Performed By: #### 5 8410-2 ####HERRER[facility] LABORATORYCLIA [id number] [address] STATES [facility] MCHC (RBC) [Mass/Vol] 31.5 g/dL Normal 30.5-36.0 [facility] Comment on above: Order Comment: Speci men Type: BLOOD SPECIMENOrdering Facility: [facility] Address: [address] [place] [address] Performed By: #### 5 8410-2 ####HERRER[facility] LABORATORYCLIA [id number] [address] MCV (RBC) [Entitic vol] 94.7 fL Normal 80.0-100.[address] [facility] Comment on above: Order Comment: Speci men Type: BLOOD SPECIMENOrdering Facility: [facility] Address: [address] [place] [address] Performed By: #### 5 8410-2 ####HERRERA LABORATORYCLIA [id number] [address] Nucleated RBC (Bld) [#/Vol] 0.02 10*3/uL High <0.01 [facility] Comment on above: Order Comment: Speci men Type: BLOOD SPECIMENOrdering Facility: [facility] Address: [address] [place] [address] Performed By: #### 5 8410-2 ####HERRERA LABORATORYCLIA [id number] [place] [address] [place] Platelet mean volume (Bld) [Entitic vol] 10.6 fL Normal 9.0-12.7 [facility] Comment on above: Order Comment: Speci men Type: BLOOD SPECIMENOrdering Facility: [facility] Address: [address] [place] [address] Performed By: #### 5 8410-2 ####HERRERA LABORATORYCLIA [id number] [place] [address] [place] Platelets (Bld) [#/Vol] 98 10*3/uL Low 150-[address] [facility] Comment on above: Order Comment: Speci men Type: BLOOD SPECIMENOrdering Facility: [facility] Address: [address] [place] [address] Result Comment: No c lot detected. Performed By: #### 5 8410-2 ####HERRERA LABORATORYCLIA [id number] [place] [address] [place] RBC (Bld) [#/Vol] 3.75 10*6/uL Low 4.20-6.00 [facility] Comment on above: Order Comment: Speci men Type: BLOOD SPECIMENOrdering Facility: [facility] Address: [address] [place] [address] Performed By: #### 5 8410-2 ####HERRERA LABORATORYCLIA [id number] [address] [place] WBC (Bld) [#/Vol] 14.23 10*3/uL High 3.70-11.00 [facility] Comment on above: Order Comment: Speci men Type: BLOOD SPECIMENOrdering Facility: [facility] Address: [address] [place] [address] Performed By: #### 5 8410-2 ####HERRER[facility] LABORATORYCLIA [id number] [place] [address] [place] CONSULTon 04-02-2025 CONSULT Normal [facility] CONSULT Normal [facility] CONSULT PROGon 04-02-2025 CONSULT PROG Normal [facility] CONSULT PROG Normal [facility] CT ABD/PEL WO IVCONon 2024 CT ABD/PEL WO IVCON Normal [facility] Comprehensive metabolic 2000 panelon 04-02-2025 Albumin [Mass/Vol] 3.5 g/dL Low 3.9-4.9 [facility] Comment on above: Order Comment: Speci men Type: BLOOD SPECIMENOrdering Facility: [facility] Address: [address] [place] [address] Performed By: #### 2 4323-8, 80161-5 ####HERRER[facility] LABORATORYCLIA [id number] [place] [address] [place] ALP [Catalytic activity/Vol] 117 U/L High 38-113 [facility] Comment on above: Order Comment: Speci men Type: BLOOD SPECIMENOrdering Facility: [facility] Address: [address] [place] [id number] Performed By: #### 2 4323-8, 71288-5 ####HERRER[facility] LABORATORYCLIA [id number] [place] [address] [place] ALT [Catalytic activity/Vol] 38 U/L Normal 10-54 [facility] Comment on above: Order Comment: Speci men Type: BLOOD SPECIMENOrdering Facility: [facility] Address: [address] [place] [id number] Performed By: #### 2 4323-8, 02088-4 ####HERRER[facility] LABORATORYCLIA [id number] [place] [address] [place] Anion gap [Moles/Vol] 17 mmol/L High 8-15 [facility] Comment on above: Order Comment: Speci men Type: BLOOD SPECIMENOrdering Facility: [facility] Address: [address] [place] [id number] Performed By: #### 2 4323-8, 27662-2 ####HERRER[facility] LABORATORYCLIA [id number] [place] [address] [place] AST [Catalytic activity/Vol] 36 U/L Normal 14-40 [facility] Comment on above: Order Comment: Speci men Type: BLOOD SPECIMENOrdering Facility: [facility] Address: [address] [place] [address] Performed By: #### 2 4323-8, 30450-5 ####HERRER[facility] LABORATORYCLIA [id number] [place] [address] [place] Bilirubin [Mass/Vol] 1.1 mg/dL Normal 0.2-1.3 [facility] Comment on above: Order Comment: Speci men Type: BLOOD SPECIMENOrdering Facility: [facility] Address: [address] [place] [address] Performed By: #### 2 4323-8, 99479-1 ####HERRER[facility] LABORATORYCLIA [id number] [place] [address] [place] Calcium [Mass/Vol] 8.5 mg/dL Normal 8.5-10.2 [facility] Comment on above: Order Comment: Speci men Type: BLOOD SPECIMENOrdering Facility: [facility] Address: [address] [place] [address] Performed By: #### 2 4323-8, 58688-0 ####HERRER[facility] LABORATORYCLIA [id number] [place] [address] [place] Chloride [Moles/Vol] 99 mmol/L Normal 98-107 [facility] Comment on above: Order Comment: Speci men Type: BLOOD SPECIMENOrdering Facility: [facility] Address: [address] [place] [address] Performed By: #### 2 4323-8, 05740-1 ####[facility] LABORATORYCLIA [id number] [place] [address] [place] CO2 [Moles/Vol] 17 mmol/L Low 22-30 [facility] Comment on above: Order Comment: Speci men Type: BLOOD SPECIMENOrdering Facility: [facility] Address: [address] [place] [address] Performed By: #### 2 4323-8, 27569-8 ####HERRER[facility] LABORATORYCLIA [id number] [place] [id number] [place] Creatinine [Mass/Vol] 2.87 mg/dL High 0.73-1.22 [facility] Comment on above: Order Comment: Demarco harris Type: BLOOD SPECIMENOrdering Facility: [facility] Address: [address] [place] [address] Performed By: #### 2 4323-8, 56512-5 ####H[facility] LABORATORYCLIA [id number] [place] [id number] [place] eGFRcr SerPlBld CKD-EPI 2020 22 mL/min/1.73m??? Low >=60 [facility] Comment on above: Order Comment: Demarco harris Type: BLOOD SPECIMENOrdering Facility: [facility] Address: [address] [place] [address] Result Comment: Nancy [facility] Glomerular Filtration Rate (eGFR) is calculated using [...] actual GFR. Performed By: #### 2 4323-8, 55991-8 ####HERRER[facility] LABORATORYCLIA [id number] [place] [address] [place] Glucose [Mass/Vol] 207 mg/dL High 74-99 [facility] Comment on above: Order Comment: Demarco harris Type: BLOOD SPECIMENOrdering Facility: [facility] Address: [address] [place] [address] Result Comment: The [employer] (ADA) provides guidance for cutoff [...] Standards of Medical Care in Diabetes 2016, [employer]. Diabetes Care. 2016.39(Suppl 1). Performed By: #### 2 4323-8, 44583-0 ####[facility] LABORATORYCLIA [id number] [place] [address] [place] Potassium [Moles/Vol] 5.0 mmol/L Normal 3.7-5.1 [facility] Comment on above: Order Comment: Demarco men Type: BLOOD SPECIMENOrdering Facility: [facility] Address: [address] [place] [address] Performed By: #### 2 4323-8, 39480-5 ####H[facility] LABORATORYCLIA [id number] [address] [place] Protein [Mass/Vol] 6.0 g/dL Low 6.3-8.0 [facility] Comment on above: Order Comment: Demarco harris Type: BLOOD SPECIMENOrdering Facility: [facility] Address: [address] [place] [address] Performed By: #### 2 4323-8, 28032-3 ####H[facility] LABORATORYCLIA [id number] [address] [place] Sodium [Moles/Vol] 133 mmol/L Low 136-144 [facility] Comment on above: Order Comment: Demarco harris Type: BLOOD SPECIMENOrdering Facility: [facility] Address: [facility] [place] [address] Performed By: #### 2 4323-8, 47446-1 ####H[facility] LABORATORYCLIA [id number] [place] [address] [place] Urea nitrogen [Mass/Vol] 47 mg/dL High 9-24 [facility] Comment on above: Order Comment: Demarco harris Type: BLOOD SPECIMENOrdering Facility: [facility] Address: [address] [place] [address] Performed By: #### 2 4323-8, 68233-8 ####HERRER[facility] LABORATORYCLIA [id number] [place] [address] [place] Albumin [Mass/Vol] 3.1 g/dL Low 3.9-4.9 [facility] Comment on above: Order Comment: Speci men Type: BLOOD SPECIMENOrdering Facility: [facility] Address: [address] [place] [address] Performed By: #### 2 4323-8 ####[facility] LABORATORYCLIA [id number] [address] [place] ALP [Catalytic activity/Vol] 90 U/L Normal 38-113 [facility] Comment on above: Order Comment: Speci men Type: BLOOD SPECIMENOrdering Facility: [facility] Address: [address] [place] [address] Performed By: #### 2 4323-8 ####HERRER[facility] LABORATORYCLIA [id number] [address] [place] ALT [Catalytic activity/Vol] Normal [facility] Comment on above: Order Comment: Speci men Type: BLOOD SPECIMENOrdering Facility: [facility] Address: [address] [place] [address] Result Comment: Unab le to assay due to interference from hemolysis. Suggest reorder as clinically indicated. Performed By: #### 2 4323-8 ####HERRER[facility] LABORATORYCLIA [id number] [address] Anion gap [Moles/Vol] 17 mmol/L High 8-15 [facility] Comment on above: Order Comment: Speci men Type: BLOOD SPECIMENOrdering Facility: [facility] Address: [address] [place] [address] Performed By: #### 2 4323-8 ####HERRER[facility] LABORATORYCLIA [id number] [address] [place] AST [Catalytic activity/Vol] Normal [facility] Comment on above: Order Comment: Speci men Type: BLOOD SPECIMENOrdering Facility: [facility] Address: [address] [place] [address] Result Comment: Unab le to assay due to interference from hemolysis. Suggest reorder as clinically indicated. Performed By: #### 2 4323-8 ####HERRER[facility] LABORATORYCLIA [id number] [place] [address] [place] Bilirubin [Mass/Vol] 0.9 mg/dL Normal 0.2-1.3 [facility] Comment on above: Order Comment: Speci men Type: BLOOD SPECIMENOrdering Facility: [facility] Address: [address] [place] [address] Performed By: #### 2 4323-8 ####HERRER[facility] LABORATORYCLIA [id number] [place] [address] [place] Calcium [Mass/Vol] 8.2 mg/dL Low 8.5-10.2 [facility] Comment on above: Order Comment: Speci men Type: BLOOD SPECIMENOrdering Facility: [facility] Address: [address] [place] [address] Performed By: #### 2 4323-8 ####HERRER[facility] LABORATORYCLIA [id number] [place] [address] [place] Chloride [Moles/Vol] 101 mmol/L Normal 98-107 [facility] Comment on above: Order Comment: Speci men Type: BLOOD SPECIMENOrdering Facility: [facility] Address: [address] [place] [address] Performed By: #### 2 4323-8 ####HERRER[facility] LABORATORYCLIA [id number] [place] [address] [place] CO2 [Moles/Vol] 15 mmol/L Low 22-30 [facility] Comment on above: Order Comment: Speci men Type: BLOOD SPECIMENOrdering Facility: [facility] Address: [address] [place] [address] Performed By: #### 2 4323-8 ####HERRERA LABORATORYCLIA [id number] [place] [address] [place] Creatinine [Mass/Vol] 2.45 mg/dL High 0.73-1.22 [facility] Comment on above: Order Comment: Speci men Type: BLOOD SPECIMENOrdering Facility: [facility] Address: [address] [place] [address] Performed By: #### 2 4323-8 ####HERRERA LABORATORYCLIA [id number] [place] [id number] [place] eGFRcr SerPlBld CKD-EPI 2020 27 mL/min/1.73m??? Low >=60 [facility] Comment on above: Order Comment: Demarco harris Type: BLOOD SPECIMENOrdering Facility: [facility] Address: [address] [place] [address] Result Comment: Nancy mated Glomerular Filtration Rate [...] Performed By: #### 2 4323-8 ####HERRERA LABORATORYCLIA [id number] [place] [address] [place] Glucose [Mass/Vol] 175 mg/dL High 74-99 [facility] Comment on above: Order Comment: Demarco harris Type: BLOOD SPECIMENOrdering Facility: [facility] Address: [address] [place] [address] Result Comment: The [place] [employer] (ADA) provides guidance for cutoff [...] Standards of Medical Care in Diabetes 2016, [employer]. Diabetes Care. 2016.39(Suppl 1). Performed By: #### 2 4323-8 ####[facility] LABORATORYCLIA [id number] [place] [address] [place] Potassium [Moles/Vol] Normal [facility] Comment on above: Order Comment: Demarco harris Type: BLOOD SPECIMENOrdering Facility: [facility] Address: [address] [place] [id number] Result Comment: Unab le to assay due to interference from hemolysis. Suggest reorder as clinically indicated. Performed By: #### 2 4323-8 ####HERRER[facility] LABORATORYCLIA [id number] [address] Protein [Mass/Vol] 5.9 g/dL Low 6.3-8.0 [facility] Comment on above: Order Comment: Speci men Type: BLOOD SPECIMENOrdering Facility: [facility] Address: [address] [place] [address] Performed By: #### 2 4323-8 ####HERRER[facility] LABORATORYCLIA [id number] [address] Sodium [Moles/Vol] 133 mmol/L Low 136-144 [facility] Comment on above: Order Comment: Speci men Type: BLOOD SPECIMENOrdering Facility: [facility] Address: [address] [place] [address] Performed By: #### 2 4323-8 ####HERRER[facility] LABORATORYCLIA [id number] [address] [place] Urea nitrogen [Mass/Vol] 46 mg/dL High 9-24 [facility] Comment on above: Order Comment: Speci men Type: BLOOD SPECIMENOrdering Facility: [facility] Address: [address] [place] [address] Performed By: #### 2 4323-8 ####HERRERA LABORATORYCLIA [id number] [address] [place] NURSING PROGon 04-02-2025 NURSING PROG Normal [facility] NUTRITIONon 04-02-2025 NUTRITION Normal [facility] Procalcitonin SerPl-mCncon 1 Procalcitonin [Mass/Vol] ng/mL High <0.09 [facility] Comment on above: Order Comment: Speci men Type: BLOOD SPECIMENOrdering Facility: [facility] Address: [address] [place] [address] Result Comment: For a guided interpretation of test results, please visit the Change in Procalcitonin Calculator, [email or web address]. Performed By: #### 2 4323-8, 15408-9 ####[facility] LABORATORYCLIA [id number] [address] [place] SEPSIS LACTATEon 04-02-2025 Lactate [Moles/Vol] 5.5 mmol/L High 0.5-2.0 [facility] Comment on above: Order Comment: Speci men Type: BLOOD SPECIMENOrdering Facility: [facility] Address: [address] [place] [address] Performed By: #### S LACT ####MER[facility] LABORATORYCLIA [id number] [address] [place] THERAPY NTon 04-02-2025 THERAPY NT Normal [facility] THERAPY NT Normal [facility] XR CHEST 1V FRONTALon 2024 XR CHEST 1V FRONTAL Normal [facility] ALLIED HEALTHon 04-01-2025 ALLIED HEALTH [facility] AST SerPl-cCncon 04-01-2025 AST [Catalytic activity/Vol] 28 U/L Normal 14-40 [facility] Comment on above: Order Comment: Speci men Type: BLOOD SPECIMENOrdering Facility: [facility] Address: [address] [place] [address] Performed By: #### 1 920-8, [id number] ####[facility] LABORATORYCLIA [id number] [address] [place] Bacteria Bld Culton 04-01-20 25 Bacteria identified Cx Nom (Bld) Abnormal [facility] Comment on above: Performed By: #### 6 00-7, IDBCGN ####[facility] LABCLIA [id number] [place] [address] [place] Bacteria Ur Culton 5 Bacteria identified Cx Nom (U) Abnormal [facility] Comment on above: Performed By: #### 6 30-4 ####[facility] LABCLIA [id number] [address] [place]#### 58675-7 ####MERIDEN LABORATORYCLIA [id number] [place] [address] [place] CBC W Auto Differential pane l (Bld)on 04-01-2025 Basophils (Bld) [#/Vol] 0.00 10*3/uL Normal <0.11 [facility] Comment on above: Order Comment: Speci men Type: BLOOD SPECIMENOrdering Facility: [facility] Address: [address] [place] [address] Performed By: #### 5 7021-8 ####HERRERA LABORATORYCLIA [id number] [place] [address] [place] Basophils/100 WBC (Bld) 0.0 % Normal [facility] Comment on above: Order Comment: Speci men Type: BLOOD SPECIMENOrdering Facility: [facility] Address: [address] [place] [address] Performed By: #### 5 7021-8 ####HERRERA LABORATORYCLIA [id number] [address] Differential cell count method Nom (Bld) Manual Normal [facility] Comment on above: Order Comment: Speci men Type: BLOOD SPECIMENOrdering Facility: [facility] Address: [address] [place] [address] Performed By: #### 5 7021-8 ####HERRER[facility] LABORATORYCLIA [id number] [place] [address] [place] Eosinophils (Bld) [#/Vol] 0.00 10*3/uL Normal <0.46 [facility] Comment on above: Order Comment: Speci men Type: BLOOD SPECIMENOrdering Facility: [facility] Address: [address] [place] [address] Performed By: #### 5 7021-8 ####HERRERA LABORATORYCLIA [id number] [address] [place] Eosinophils/100 WBC (Bld) 0.0 % Normal [facility] Comment on above: Order Comment: Speci men Type: BLOOD SPECIMENOrdering Facility: [facility] Address: [address] [place] [address] Performed By: #### 5 7021-8 ####HERRERA LABORATORYCLIA [id number] [place] [address] [place] Erythrocyte distribution width (RBC) [Ratio] 15.5 % High 11.5-15.0 [facility] Comment on above: Order Comment: Speci men Type: BLOOD SPECIMENOrdering Facility: [facility] Address: [address] [place] [address] Performed By: #### 5 7021-8 ####HERRERA LABORATORYCLIA [id number] [address] [place] Hematocrit (Bld) [Volume fraction] 37.8 % Low 39.0-51.0 [facility] Comment on above: Order Comment: Speci men Type: BLOOD SPECIMENOrdering Facility: [facility] Address: [address] [place] [address] Performed By: #### 5 7021-8 ####HERRERA LABORATORYCLIA [id number] [address] [place] Hemoglobin (Bld) [Mass/Vol] 12.2 g/dL Low 13.0-17.0 [facility] Comment on above: Order Comment: Speci men Type: BLOOD SPECIMENOrdering Facility: [facility] Address: [address] [place] [address] Performed By: #### 5 7021-8 ####HERRERA LABORATORYCLIA [id number] [address] [place] Lymphocytes (Bld) [#/Vol] 2.39 10*3/uL Normal 1.00-4.00 [facility] Comment on above: Order Comment: Speci men Type: BLOOD SPECIMENOrdering Facility: [facility] Address: [address] [place] [address] Performed By: #### 5 7021-8 ####[facility] LABORATORYCLIA [id number] [address] Lymphocytes/100 WBC (Bld) 10.0 % Normal [facility] Comment on above: Order Comment: Speci men Type: BLOOD SPECIMENOrdering Facility: [facility] Address: [address] [place] [address] Performed By: #### 5 7021-8 ####H[facility] LABORATORYCLIA [id number] [address] LYMPHOMA CELL 33.0 % Normal [facility] Comment on above: Order Comment: Speci men Type: BLOOD SPECIMENOrdering Facility: [facility] Address: [address] [place] [address] Performed By: #### 5 7021-8 ####HERRERA LABORATORYCLIA [id number] [place] [address] [place] MCH (RBC) [Entitic mass] 29.7 pg Normal 26.0-34.0 [facility] Comment on above: Order Comment: Speci men Type: BLOOD SPECIMENOrdering Facility: [facility] Address: [address] [place] [address] Performed By: #### 5 7021-8 ####HERRERA LABORATORYCLIA [id number] [address] [place] MCHC (RBC) [Mass/Vol] 32.3 g/dL Normal 30.5-36.0 [facility] Comment on above: Order Comment: Speci men Type: BLOOD SPECIMENOrdering Facility: [facility] Address: [address] [place] [address] Performed By: #### 5 7021-8 ####HERRERA LABORATORYCLIA [id number] [address] [place] MCV (RBC) [Entitic vol] 92.0 fL Normal 80.0-100.[address] [facility] Comment on above: Order Comment: Speci men Type: BLOOD SPECIMENOrdering Facility: [facility] Address: [address] [place] [address] Performed By: #### 5 7021-8 ####HERRERA LABORATORYCLIA [id number] [place] [address] [place] Monocytes (Bld) [#/Vol] 0.55 10*3/uL Normal <0.87 [facility] Comment on above: Order Comment: Speci men Type: BLOOD SPECIMENOrdering Facility: [facility] Address: [address] [place] [address] Performed By: #### 5 7021-8 ####HERRERA LABORATORYCLIA [id number] [place] [address] [place] Monocytes/100 WBC (Bld) 3.0 % Normal [facility] Comment on above: Order Comment: Speci men Type: BLOOD SPECIMENOrdering Facility: [facility] Address: [address] [place] [address] Performed By: #### 5 7021-8 ####HERRERA LABORATORYCLIA [id number] [place] [address] [place] Neutrophils (Bld) [#/Vol] 9.39 10*3/uL High 1.45-7.50 [facility] Comment on above: Order Comment: Speci men Type: BLOOD SPECIMENOrdering Facility: [facility] Address: [address] [place] [address] Performed By: #### 5 7021-8 ####HERRERA LABORATORYCLIA [id number] [place] [address] [place] Neutrophils/100 WBC (Bld) 51.0 % Normal [facility] Comment on above: Order Comment: Speci men Type: BLOOD SPECIMENOrdering Facility: [facility] Address: [address] [place] [address] Performed By: #### 5 7021-8 ####HERRERA LABORATORYCLIA [id number] [place] [address] [place] Nucleated RBC (Bld) [#/Vol] 10*3/uL Normal <0.01 [facility] Comment on above: Order Comment: Speci men Type: BLOOD SPECIMENOrdering Facility: [facility] Address: [address] [place] [address] Performed By: #### 5 7021-8 ####HERRERA LABORATORYCLIA [id number] [place] [address] [place] Nucleated RBC/100 WBC (Bld) [Ratio] 0.0 /100 WBC Normal [facility] Comment on above: Order Comment: Speci men Type: BLOOD SPECIMENOrdering Facility: [facility] Address: [address] [place] [address] Performed By: #### 5 7021-8 ####HERRERA LABORATORYCLIA [id number] [place] [address] [place] Ovalocytes LM Ql (Bld) Few Normal [facility] Comment on above: Order Comment: Speci men Type: BLOOD SPECIMENOrdering Facility: [facility] Address: [address] [facility] [place] [address] Performed By: #### 5 7021-8 ####HERRERA LABORATORYCLIA [id number] [place] [address] [place] Platelet mean volume (Bld) [Entitic vol] 9.6 fL Normal 9.0-12.7 [facility] Comment on above: Order Comment: Speci men Type: BLOOD SPECIMENOrdering Facility: [facility] Address: [address] [place] [address] Performed By: #### 5 7021-8 ####HERRERA LABORATORYCLIA [id number] [place] [address] [place] Platelets (Bld) [#/Vol] 157 10*3/uL Normal 150-400 [facility] Comment on above: Order Comment: Speci men Type: BLOOD SPECIMENOrdering Facility: [facility] Address: [address] [place] [address] Performed By: #### 5 7021-8 ####HERRERA LABORATORYCLIA [id number] [place] [address] [place] Platelets Estimate (Bld) [#/Vol] Adequate Normal [facility] Comment on above: Order Comment: Speci men Type: BLOOD SPECIMENOrdering Facility: [facility] Address: [address] [place] [address] Performed By: #### 5 7021-8 ####HERRER[facility] LABORATORYCLIA [id number] [place] [address] [place] RBC (Bld) [#/Vol] 4.11 10*6/uL Low 4.20-6.00 [facility] Comment on above: Order Comment: Speci men Type: BLOOD SPECIMENOrdering Facility: [facility] Address: [address] [place] [address] Performed By: #### 5 7021-8 ####HERRERA LABORATORYCLIA [id number] [address] [place] RED CELL MORPH Reviewed: see result s of individual morphologies Normal [facility] Comment on above: Order Comment: Speci men Type: BLOOD SPECIMENOrdering Facility: [facility] Address: [address] [place] [address] Performed By: #### 5 7021-8 ####HERRERA LABORATORYCLIA [id number] [address] [place] Variant lymphocytes/100 WBC (Bld) 3.0 % Normal [facility] Comment on above: Order Comment: Speci men Type: BLOOD SPECIMENOrdering Facility: [facility] Address: [address] [place] [address] Performed By: #### 5 7021-8 ####[facility] LABORATORYCLIA [id number] [address] WBC (Bld) [#/Vol] 18.42 10*3/uL High 3.70-11.00 [facility] Comment on above: Order Comment: Speci men Type: BLOOD SPECIMENOrdering Facility: [facility] Address: [address] [place] [address] Performed By: #### 5 7021-8 ####HERRER[facility] LABORATORYCLIA [id number] [address] [place] CNPNon 04-01-2025 CNPN Normal [facility] metabolic 2000 panelon 04-01-2025 Albumin [Mass/Vol] 4.3 g/dL Normal 3.9-4.9 [facility] Comment on above: Order Comment: Speci men Type: BLOOD SPECIMENOrdering Facility: [facility] Address: [address] [place] [address] Performed By: #### L [id number], 16363-9, 3040-3 ####HERRER[facility] LABORATORYCLIA [id number] [address] ALP [Catalytic activity/Vol] 117 U/L High 38-113 [facility] Comment on above: Order Comment: Speci men Type: BLOOD SPECIMENOrdering Facility: [facility] Address: [address] [place] [address] Performed By: #### L LE7430, 70111-0, 0-3 ####HERRER[facility] LABORATORYCLIA [id number] [place] [address] [place] ALT [Catalytic activity/Vol] 41 U/L Normal 10-54 [facility] Comment on above: Order Comment: Speci men Type: BLOOD SPECIMENOrdering Facility: [facility] Address: [address] [place] [address] Performed By: #### L VB1204, 65483-4, 0-3 ####HERRERA LABORATORYCLIA [id number] [place] [address] [place] Anion gap [Moles/Vol] 17 mmol/L High 8-15 [facility] Comment on above: Order Comment: Speci men Type: BLOOD SPECIMENOrdering Facility: [facility] Address: [address] [place] [address] Performed By: #### L QX5294, 72351-0, 3039-3 ####HERRER[facility] LABORATORYCLIA [id number] [place] [address] [place] AST [Catalytic activity/Vol] Normal [facility] Comment on above: Order Comment: Speci men Type: BLOOD SPECIMENOrdering Facility: [facility] Address: [address] [place] [address] Result Comment: Unab le to assay due to interference from hemolysis. Suggest reorder as clinically indicated. Performed By: #### L CL3426, 56056-0, 0-3 ####HERRER[facility] LABORATORYCLIA [id number] [place] [address] [place] Bilirubin [Mass/Vol] 0.4 mg/dL Normal 0.2-1.3 [facility] Comment on above: Order Comment: Speci men Type: BLOOD SPECIMENOrdering Facility: [facility] Address: [address] [place] [address] Performed By: #### L KA2429, 59412-3, 0-3 ####HERRER[facility] LABORATORYCLIA [id number] [place] [address] [place] Calcium [Mass/Vol] 9.9 mg/dL Normal 8.5-10.2 [facility] Comment on above: Order Comment: Speci men Type: BLOOD SPECIMENOrdering Facility: [facility] Address: [address] [place] [address] Performed By: #### L FH4358, 67731-6, 3040-3 ####HERRER[facility] LABORATORYCLIA [id number] [place] [address] [place] Chloride [Moles/Vol] 103 mmol/L Normal 98-107 [facility] Comment on above: Order Comment: Speci men Type: BLOOD SPECIMENOrdering Facility: [facility] Address: [address] [place] [address] Performed By: #### L FZ4570, 31810-2, 3040-3 ####HERRER[facility] LABORATORYCLIA [id number] [place] [address] [place] CO2 [Moles/Vol] 19 mmol/L Low 22-30 [facility] Comment on above: Order Comment: Speci men Type: BLOOD SPECIMENOrdering Facility: [facility] Address: [address] [place] [address] Performed By: #### L FT1032, 38422-6, 3040-3 ####HERRER[facility] LABORATORYCLIA [id number] [place] [address] [place] Creatinine [Mass/Vol] 1.57 mg/dL High 0.73-1.22 [facility] Comment on above: Order Comment: Speci men Type: BLOOD SPECIMENOrdering Facility: [facility] Address: [address] [place] [address] Performed By: #### L XT2699, 35195-1, 3040-3 ####HERRER[facility] LABORATORYCLIA [id number] [place] [address] [place] eGFRcr SerPlBld CKD-EPI 2020 46 mL/min/1.73m??? Low >=60 [facility] Comment on above: Order Comment: Speci men Type: BLOOD SPECIMENOrdering Facility: [facility] Address: [address] [place] [address] Result Comment: Nancy mated Glomerular Filtration Rate [...] reflect actual GFR. Performed By: #### L OB9250, 47652-8, 0-3 ####[facility] LABORATORYCLIA [id number] [place] [address] [place] Glucose [Mass/Vol] 230 mg/dL High 74-99 [facility] Comment on above: Order Comment: Demarco harris Type: BLOOD SPECIMENOrdering Facility: [facility] Address: [address] [place] [address] Result Comment: The [place] [employer] (ADA) provides guidance for cutoff [...] Standards of Medical Care in Diabetes 2016, [place] [employer]. Diabetes Care. 2016.39(Suppl 1). Performed By: #### L ZW5120, 31158-8, 3039-3 ####[facility] LABORATORYCLIA [id number] [place] [address] [place] Potassium [Moles/Vol] 5.1 mmol/L Normal 3.7-5.1 [facility] Comment on above: Order Comment: eDmarco harris Type: BLOOD SPECIMENOrdering Facility: [facility] Address: [address] [place] [id number] Performed By: #### L WO3588, 33903-7, 3040-3 ####MER[facility] LABORATORYCLIA [id number] [place] [address] [place] Protein [Mass/Vol] 7.1 g/dL Normal 6.3-8.0 [facility] Comment on above: Order Comment: Speci men Type: BLOOD SPECIMENOrdering Facility: [facility] Address: [facility] [place] [id number] Performed By: #### L PF9534, 73793-8, 3040-3 ####HERRERA LABORATORYCLIA [id number] [place], [place] [address] [place] [address] Sodium [Moles/Vol] 139 mmol/L Normal 136-144 [facility] Comment on above: Order Comment: Speci men Type: BLOOD SPECIMENOrdering Facility: [facility] Address: [address] [place] [address] Performed By: #### L KU9828, 60100-3, 3040-3 ####HERRER[facility] LABORATORYCLIA [id number] [address] Urea nitrogen [Mass/Vol] 34 mg/dL High 9-24 [facility] Comment on above: Order Comment: Speci men Type: BLOOD SPECIMENOrdering Facility: [facility] Address: [address] [place] [address] Performed By: #### L UW7594, 08522-8, 3040-3 ####HERRERA LABORATORYCLIA [id number] [address] ED NOTEon 04-01-2025 ED NOTE HNO ID: [id number] Author: TIERA BOLTON RN Service: Nursing Author Type: Registered Nurse Type: ED Notes Filed: 04/01/2025 17:28 Note Text: 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 Author Type: Registered Nurse Type: ED Notes Filed: 04/01/2025 17:06 Note Text: RN to bedside, patient complains of nausea. Patient reports not able to tolerate oral meds at this time. [facility] ED NOTE HNO ID: [id number] Author: TU BELTRÁN RN Service: Nursing Author Type: Registered Nurse Type: ED Notes Filed: 04/01/2025 10:59 Note Text: [facility]. [phone] Michelle from [facility]. Normal [facility] ED NOTE HNO ID: [id number] Author: МАРИЯ YOO, MY Service: ? Author Type: Registered Nurse Type: ED Notes Filed: 04/01/2025 08:18 Note Text: Bed: ED-08 Expected date: Expected time: Means of arrival: [employer] Comments: m4 Normal [facility] ED PROV NOTEon 04-01-2025 ED PROV NOTE Normal [facility] GRAM NEGATIVE ORGANISM ID BY MICROARRAY (better.)on 04-01-2025 GRAM NEGATIVE ORGANISM ID BY MICROARRAY (better.) BCID INTERPRETATION: Klebsiella pneumoniae detected by microarray. Confirmation and susceptibility testing to follow. Negative for Acinetobacter spp. and Pseudomonas aeruginosa by microarray. Abnormal [facility] Comment on above: Performed By: #### 6 00-7, IDBCGN ####[facility] LABCLIA [id number] [address] [place] HIGH SENSITIVITY TROPONIN T (INITIAL)on 04-01-2025 Troponin T.cardiac High sensitivity method [Mass/Vol] 49 ng/L High <12 [facility] Comment on above: Order Comment: Demarco harris Type: BLOOD SPECIMENOrdering Facility: [facility] Address: [address] [place] [address] Performed By: #### L PF7596, 77216-2, 3040-3 ####HERRER[facility] LABORATORYCLIA [id number] [address] [place] HIGH SENSITIVITY TROPONIN T (SECOND)on 04-01-2025 Troponin T.cardiac High sensitivity method [Mass/Vol] 46 ng/L High <12 [facility] Comment on above: Order Comment: Specjoao harris Type: BLOOD SPECIMENOrdering Facility: [facility] Address: [address] [place] [address] Performed By: #### L QQ3032 ####HERRER[facility] LABORATORYCLIA [id number] [address] [place] HIGH SENSITIVITY TROPONIN T (THIRD) 3 HRS AFTER INITIALon 04-01-2025 Troponin T.cardiac High sensitivity method [Mass/Vol] 44 ng/L High <12 [facility] Comment on above: Order Comment: Speci men Type: BLOOD SPECIMENOrdering Facility: [facility] Address: [address] [place] [address] Performed By: #### 1 920-8, [id number] ####HERRER[facility] LABORATORYCLIA [id number] [place] [address] [place] HISTORY PHYSICALon 5 HISTORY PHYSICAL Normal [facility] Lipase SerPl-cCncon 04-01-20 25 Lipase [Catalytic activity/Vol] 31 U/L Normal 16-61 [facility] Comment on above: Order Comment: Speci men Type: BLOOD SPECIMENOrdering Facility: [facility] Address: [address] [place] [address] Performed By: #### L JA6832, 24769-3, 3040-3 ####HERRER[facility] LABORATORYCLIA [id number] [place] [id number] [facility] [place] NT-proBNP SerPl-mCncon 04-01 Natriuretic peptide.B prohormone N-Terminal [Mass/Vol] 8344 pg/mL High <450 [facility] Comment on above: Order Comment: Speci men Type: BLOOD SPECIMENOrdering Facility: [facility] Address: [address] [place] [address] Performed By: #### 3 3762-6, 88384-7 ####HERRER[facility] LABORATORYCLIA [id number] [place] [address] [facility] [place] Procalcitonin SerPl-mCncon 1 Procalcitonin [Mass/Vol] ng/mL High <0.09 [facility] Comment on above: Order Comment: Speci men Type: BLOOD SPECIMENOrdering Facility: [facility] Address: [address] [place] [address] Result Comment: For a guided interpretation of test results, please visit the Change in Procalcitonin Calculator, [email or web address]. Performed By: #### 3 3762-6, 42285-8 ####HERRER[facility] LABORATORYCLIA [id number] [place] [address] [place] SEPSIS LACTATEon 04-01-2025 Lactate [Moles/Vol] 4.5 mmol/L High 0.5-2.0 [facility] Comment on above: Order Comment: Speci men Type: BLOOD SPECIMENOrdering Facility: [facility] Address: [address] [place] [address] Performed By: #### S LACT ####[facility] LABORATORYCLIA [id number] [address] [place] Urinalysis complete panel (U )on 04-01-2025 Bacteria LM.HPF (Urine sed) [#/Area] Many Abnormal None Seen [facility] Comment on above: Order Comment: Speci men Type: URINE SPECIMENOrdering Facility: [facility] Address: [address] [place] [address] Performed By: #### 6 30-4 ####[facility] LABCLIA [id number] [address] [place]#### 74586-1 ####[facility] LABORATORYCLIA [id number] [address] [place] Bilirubin Ql (U) 2+ Abnormal Negative [facility] Comment on above: Order Comment: Speci men Type: URINE SPECIMENOrdering Facility: [facility] Address: [address] [place] [address] Result Comment: Sugg est correlation with clinical findings and serum bilirubin if clinically indicated. Performed By: #### 6 30-4 ####[facility] LABCLIA [id number] [address] [place]#### 37231-5 ####[facility] LABORATORYCLIA [id number] [place] [address] [place] Clarity (Unsp spec) Cloudy Abnormal Clear [facility] Comment on above: Order Comment: Speci men Type: URINE SPECIMENOrdering Facility: [facility] Address: [address] [place] [address] Performed By: #### 6 30-4 ####[facility] LABCLIA [id number] [address]#### 929[address]-2 ####HERRER[facility] LABORATORYCLIA [id number] [place] [address] [place] Color (U) Yellow Normal Yellow [facility] Comment on above: Order Comment: Speci men Type: URINE SPECIMENOrdering Facility: [facility] Address: [address] [place] [address] Performed By: #### 6 30-4 ####[facility] LABCLIA [id number] [place] [address] [place]#### 33870-0 ####HERRER[facility] LABORATORYCLIA [id number] [place] [address] [place] Glucose Test strip (U) [Mass/Vol] Negative Normal Negative [facility] Comment on above: Order Comment: Speci men Type: URINE SPECIMENOrdering Facility: [facility] Address: [address] [place] [address] Performed By: #### 6 30-4 ####[facility] LABCLIA [id number] [address] [place]#### 80839-6 ####H[facility] LABORATORYCLIA [id number] [place] [address] [place] Hemoglobin Ql (U) 3+ Abnormal Negative [facility] Comment on above: Order Comment: Speci men Type: URINE SPECIMENOrdering Facility: [facility] Address: [address] [place] [address] Performed By: #### 6 30-4 ####[facility] LABCLIA [id number] [place] [address] [place]#### 71776-6 ####H[facility] LABORATORYCLIA [id number] [place] [id number] [place] Ketones Ql (U) 1+ Abnormal Negative [facility] Comment on above: Order Comment: Speci men Type: URINE SPECIMENOrdering Facility: [facility] Address: [address] [place] [address] Performed By: #### 6 30-4 ####[facility] LABCLIA [id number] [place] [address] [place]#### 16370-0 ####[facility] LABORATORYCLIA [id number] [address] [place] Leukocyte esterase Test strip Ql (U) 2+ Abnormal Negative [facility] Comment on above: Order Comment: Speci men Type: URINE SPECIMENOrdering Facility: [facility] Address: [address] [place] [address] Performed By: #### 6 30-4 ####[facility] LABCLIA [id number] [place] [address] [place]#### 49488-7 ####[facility] LABORATORYCLIA [id number] [address] [place] Nitrite Ql (U) Negative Normal Negative [facility] Comment on above: Order Comment: Speci men Type: URINE SPECIMENOrdering Facility: [facility] Address: [address] [place] [address] Performed By: #### 6 30-4 ####[facility] LABCLIA [id number] [place] [address] [place]#### 99373-1 ####[facility] LABORATORYCLIA [id number] [place] [address] [place] pH (U) 5.5 [pH] Normal 5.0-8.0 [facility] Comment on above: Order Comment: Speci men Type: URINE SPECIMENOrdering Facility: [facility] Address: [address] [place] [address] Performed By: #### 6 30-4 ####[facility] LABCLIA [id number] [place] [address] [place]#### 80246-5 ####[facility] LABORATORYCLIA [id number] [place] [address] [place] Protein (U) [Mass/Vol] 2+ Abnormal Negative [facility] Comment on above: Order Comment: Speci men Type: URINE SPECIMENOrdering Facility: [facility] Address: [address] [place] [address] Performed By: #### 6 30-4 ####[facility] LABCLIA [id number] [address] [place]#### 95666-9 ####[facility] LABORATORYCLIA [id number] [place] [address] [place] RBC LM.HPF (Urine sed) [#/Area] 11-25 /HPF Abnormal 0-3 /HPF [facility] Comment on above: Order Comment: Speci men Type: URINE SPECIMENOrdering Facility: [facility] Address: [address] [place] [address] Performed By: #### 6 30-4 ####[facility] LABCLIA [id number] [address] [place]#### 45485-5 ####[facility] LABORATORYCLIA [id number] [address] Specific gravity (U) [Rel density] 1.025 Normal 1.005-1.03 0 [facility] Comment on above: Order Comment: Speci men Type: URINE SPECIMENOrdering Facility: [facility] Address: [address] [place] [address] Performed By: #### 6 30-4 ####[facility] LABCLIA [id number] [address] [place]#### 01838-4 ####[facility] LABORATORYCLIA [id number] [address] Urobilinogen Ql (U) 0.2 EU/dL Normal 0.2-1.0 EU/dL [facility] Comment on above: Order Comment: Speci men Type: URINE SPECIMENOrdering Facility: [facility] Address: [address] [place] [address] Performed By: #### 6 30-4 ####[facility] LABCLIA [id number] [place] [address] [place]#### 31848-3 ####[facility] LABORATORYCLIA [id number] [place] [address] [place] WBC LM.HPF (Urine sed) [#/Area] 11-25 /HPF Abnormal 0-5 /HPF [facility] Comment on above: Order Comment: Speci men Type: URINE SPECIMENOrdering Facility: [facility] Address: [address] [place] [address] Performed By: #### 6 30-4 ####[facility] LABCLIA [id number] [address] [place]#### [address]-3 ####[facility]ORATORYCLIA [id number] [place] [address] [place] XR CHEST 1V FRONTAL PORTon 1 XR CHEST 1V FRONTAL PORT Normal [facility] XR CHEST 2V FRONTAL/LATon XR CHEST 2V FRONTAL/LAT Normal [facility] BLOOD BANK COMMENTon 025 BLOOD BANK COMMENT See Comment Normal [facility] Comment on above: Order Comment: Speci men Type: BLOOD SPECIMENOrdering Facility: [facility] Address: [address] [place] [address] Result Comment: anti body ID not required. Last Antibody ID performed on 03/05/25 Performed By: #### T SCR, [id number] ####[facility] LABCLIA [id number] [place] [address] [place] CBC W Auto Differential pane l (Bld)on 03-30-2025 Basophils (Bld) [#/Vol] 0.00 10*3/uL Normal <0.11 [facility] Comment on above: Order Comment: Speci men Type: BLOOD SPECIMENOrdering Facility: [facility] Address: [address] [place] [address] Performed By: #### 5 7021-8 ####[facility] LABORATORYCLIA [id number] [place] [address] [place] Basophils/100 WBC (Bld) 0.0 % Normal C [facility] Comment on above: Order Comment: Speci men Type: BLOOD SPECIMENOrdering Facility: [facility] Address: [address] [place] [address] Performed By: #### 5 7021-8 ####[facility] LABORATORYIA [id number] [address] Differential cell count method Nom (Bld) Manual Normal [facility] Comment on above: Order Comment: Speci men Type: BLOOD SPECIMENOrdering Facility: [facility] Address: [address] [place] [address] Performed By: #### 5 7021-8 ####[facility] LABORATORYIA [id number] [place] [address] [place] Eosinophils (Bld) [#/Vol] 0.00 10*3/uL Normal <0.46 [facility] Comment on above: Order Comment: Speci men Type: BLOOD SPECIMENOrdering Facility: [facility] Address: [address] [place] [address] Performed By: #### 5 7021-8 ####[facility] LABORATORYIA [id number] [address] [place] [facility] Eosinophils/100 WBC (Bld) 0.0 % Normal [facility] Comment on above: Order Comment: Speci men Type: BLOOD SPECIMENOrdering Facility: [facility] Address: [address] [place] [address] Performed By: #### 5 7021-8 ####[facility] LABORATORYIA [id number] [address] [place] Erythrocyte distribution width (RBC) [Ratio] 15.9 % High 11.5-15.0 [facility] Comment on above: Order Comment: Speci men Type: BLOOD SPECIMENOrdering Facility: [facility] Address: [address] [place] [address] Performed By: #### 5 7021-8 ####[facility] LABORATORYIA [id number] [place] [address] [place] Hematocrit (Bld) [Volume fraction] 36.3 % Low 39.0-51.0 [facility] Comment on above: Order Comment: Speci men Type: BLOOD SPECIMENOrdering Facility: [facility] Address: [address] [place] [address] Performed By: #### 5 7021-8 ####[facility] LABORATORYIA [id number] [place] [address] [place] Hemoglobin (Bld) [Mass/Vol] 11.6 g/dL Low 13.0-17.0 [facility] Comment on above: Order Comment: Speci men Type: BLOOD SPECIMENOrdering Facility: [facility] Address: [address] [place] [address] Performed By: #### 5 7021-8 ####[facility] HOSPITALIA [id number] [place] [address] [place] Lymphocytes (Bld) [#/Vol] 7.63 10*3/uL High 1.00-4.00 [facility] Comment on above: Order Comment: Speci men Type: BLOOD SPECIMENOrdering Facility: [facility] Address: [address] [place] [address] Performed By: #### 5 7021-8 ####[facility] LABORATORYIA [id number] [place] [address] [place] Lymphocytes/100 WBC (Bld) 33.0 % Normal [facility] Comment on above: Order Comment: Speci men Type: BLOOD SPECIMENOrdering Facility: [facility] Address: [address] [place] [address] Performed By: #### 5 7021-8 ####[facility] LABORATORYIA [id number] [place] [address] [place] LYMPHOMA CELL 42.0 % Normal [facility] Comment on above: Order Comment: Speci men Type: BLOOD SPECIMENOrdering Facility: [facility] Address: [address] [place] [address] Performed By: #### 5 7021-8 ####[facility] LABORATORYCLIA [id number] [place] [address] [place] [facility] MCH (RBC) [Entitic mass] 29.4 pg Normal 26.0-34.0 [facility] Comment on above: Order Comment: Speci men Type: BLOOD SPECIMENOrdering Facility: [facility] Address: [address] [place] [address] Performed By: #### 5 7021-8 ####[facility] LABORATORYCLIA [id number] [address] [place] [facility] MCHC (RBC) [Mass/Vol] 32.0 g/dL Normal 30.5-36.0 [facility] Comment on above: Order Comment: Speci men Type: BLOOD SPECIMENOrdering Facility: [facility] Address: [address] [place] [address] Performed By: #### 5 7021-8 ####[facility] HOSPITALIA [id number] [address] MCV (RBC) [Entitic vol] 92.1 fL Normal 80.0-100.0 C [facility] Comment on above: Order Comment: Speci men Type: BLOOD SPECIMENOrdering Facility: [facility] Address: [address] [place] [address] Performed By: #### 5 7021-8 ####[facility] LABORATORYCLIA [id number] [address] [place] Monocytes (Bld) [#/Vol] 0.23 10*3/uL Normal <0.87 [facility] Comment on above: Order Comment: Speci men Type: BLOOD SPECIMENOrdering Facility: [facility] Address: [address] [place] [address] Performed By: #### 5 7021-8 ####[facility] LABORATORYCLIA [id number] [place] [address] [facility] Monocytes/100 WBC (Bld) 1.0 % Normal C [facility] Comment on above: Order Comment: Speci men Type: BLOOD SPECIMENOrdering Facility: [facility] Address: [address] [place] [address] Performed By: #### 5 7021-8 ####[facility] LABORATORYCLIA [id number] [place] [address] [place] Neutrophils (Bld) [#/Vol] 5.55 10*3/uL Normal 1.45-7.50 [facility] Comment on above: Order Comment: Speci men Type: BLOOD SPECIMENOrdering Facility: [facility] Address: [address] [place] [address] Performed By: #### 5 7021-8 ####[facility] LABORATORYCLIA [id number] [place] [address] [place] Neutrophils/100 WBC (Bld) 24.0 % Normal [facility] Comment on above: Order Comment: Speci men Type: BLOOD SPECIMENOrdering Facility: [facility] Address: [address] [place] [address] Performed By: #### 5 7021-8 ####[facility] LABORATORYIA [id number] [place] [address] [place] Nucleated RBC (Bld) [#/Vol] 10*3/uL Normal <0.01 [facility] Comment on above: Order Comment: Speci men Type: BLOOD SPECIMENOrdering Facility: [facility] Address: [address] [place] [address] Performed By: #### 5 7021-8 ####[facility] LABORATORYCLIA [id number] [place] [address] [place] Nucleated RBC/100 WBC (Bld) [Ratio] 0.0 /100 WBC Normal [facility] Comment on above: Order Comment: Speci men Type: BLOOD SPECIMENOrdering Facility: [facility] Address: [address] [place] [address] Performed By: #### 5 7021-8 ####[facility] LABORATORYCLIA [id number] [place] [address] [place] Ovalocytes LM Ql (Bld) Few Normal Cl [facility] Comment on above: Order Comment: Speci men Type: BLOOD SPECIMENOrdering Facility: [facility] Address: [address] [place] [address] Performed By: #### 5 7021-8 ####[facility] LABORATORYIA [id number] [place] [address] [place] Platelet mean volume (Bld) [Entitic vol] 9.7 fL Normal 9.0-12.7 [facility] Comment on above: Order Comment: Speci men Type: BLOOD SPECIMENOrdering Facility: [facility] Address: [address] [place] [address] Performed By: #### 5 7021-8 ####[facility] HOSPITALIA [id number] [place] [address] [place] Platelets (Bld) [#/Vol] 164 10*3/uL Normal 150-400 [facility] Comment on above: Order Comment: Speci men Type: BLOOD SPECIMENOrdering Facility: [facility] Address: [address] [place] [address] Performed By: #### 5 7021-8 ####[facility] LABORATORYIA [id number] [place] [address] [place] Platelets Estimate (Bld) [#/Vol] Adequate Normal [facility] Comment on above: Order Comment: Speci men Type: BLOOD SPECIMENOrdering Facility: [facility] Address: [address] [place] [address] Performed By: #### 5 7021-8 ####[facility] LABORATORYIA [id number] [place] [address] [place] RBC (Bld) [#/Vol] 3.94 10*6/uL Low 4.20-6.00 [facility] Comment on above: Order Comment: Speci men Type: BLOOD SPECIMENOrdering Facility: [facility] Address: [address] [place] [address] Performed By: #### 5 7021-8 ####[facility] LABORATORYCLIA [id number] [place] [address] [place] [facility] RED CELL MORPH Reviewed: see result s of individual morphologies Normal [facility] Comment on above: Order Comment: Speci men Type: BLOOD SPECIMENOrdering Facility: [facility] Address: [address] [place] [address] Performed By: #### 5 7021-8 ####[facility] LABORATORYCLIA [id number] [place] [address] [place] WBC (Bld) [#/Vol] 23.11 10*3/uL High 3.70-11.00 [facility] Comment on above: Order Comment: Speci men Type: BLOOD SPECIMENOrdering Facility: [facility] Address: [address] [place] [address] Performed By: #### 5 7021-8 ####[facility] LABORATORYIA [id number] [place] [address] [place] Comprehensive metabolic 2000 panelon 03-30-2025 Albumin [Mass/Vol] 4.0 g/dL Normal 3.9-4.9 [facility] Comment on above: Order Comment: Speci men Type: BLOOD SPECIMENOrdering Facility: [facility] Address: [address] [place] [address] Performed By: #### 2 4323-8, 2777-1, 3084-1 ####[facility] LABORATORYCLIA [id number] [place] [address] [place] ALP [Catalytic activity/Vol] 110 U/L Normal 38-113 [facility] Comment on above: Order Comment: Speci men Type: BLOOD SPECIMENOrdering Facility: [facility] Address: [address] [place] [address] Performed By: #### 2 4323-8, 2777-1, 3084-1 ####[facility] LABORATORYCLIA [id number] [place] [address] [place] ALT [Catalytic activity/Vol] 44 U/L Normal 10-54 [facility] Comment on above: Order Comment: Speci men Type: BLOOD SPECIMENOrdering Facility: [facility] Address: [address] [place] [address] Performed By: #### 2 4323-8, 2777-1, 308-1 ####[facility] LABORATORYCLIA [id number] [place] [address] [place] Anion gap [Moles/Vol] 14 mmol/L Normal 8-15 [facility] Comment on above: Order Comment: Speci men Type: BLOOD SPECIMENOrdering Facility: [facility] Address: [address] [place] [address] Performed By: #### 2 4323-8, 2777-1, 308-1 ####[facility] HOSPITALIA [id number] [place] [address] [place] AST [Catalytic activity/Vol] 31 U/L Normal 14-40 [facility] Comment on above: Order Comment: Speci men Type: BLOOD SPECIMENOrdering Facility: [facility] Address: [address] [place] [address] Performed By: #### 2 4323-8, 2777-1, 3084-1 ####[facility] LABORATORYIA [id number] [place] [address] [place] Bilirubin [Mass/Vol] 0.3 mg/dL Normal 0.2-1.3 [facility] Comment on above: Order Comment: Speci men Type: BLOOD SPECIMENOrdering Facility: [facility] Address: [address] [place] [address] Performed By: #### 2 4323-8, 2777-1, 3084-1 ####[facility] LABORATORYIA [id number] [place] [address] [place] Calcium [Mass/Vol] 9.4 mg/dL Normal 8.5-10.2 [facility] Comment on above: Order Comment: Speci men Type: BLOOD SPECIMENOrdering Facility: [facility] Address: [address] [place] [address] Performed By: #### 2 4323-8, 2777-1, 308-1 ####[facility] LABORATORYCLIA [id number] [place] [address] [place] Chloride [Moles/Vol] 112 mmol/L High 98-107 [facility] Comment on above: Order Comment: Speci men Type: BLOOD SPECIMENOrdering Facility: [facility] Address: [address] [place] [address] Performed By: #### 2 4323-8, 277-, 308- ####[facility] LABORATORYCLIA [id number] [place] [address] [place] CO2 [Moles/Vol] 20 mmol/L Low 22-30 [facility] Comment on above: Order Comment: Speci men Type: BLOOD SPECIMENOrdering Facility: [facility] Address: [address] [place] [address] Performed By: #### 2 4323-8, 277-, 3083-1 ####[facility] LABORATORYCLIA [id number] [place] [address] [place] Creatinine [Mass/Vol] 1.20 mg/dL Normal 0.73-1.22 [facility] Comment on above: Order Comment: Speci men Type: BLOOD SPECIMENOrdering Facility: [facility] Address: [address] [place] [address] Performed By: #### 2 4323-8, 277-1, 308-1 ####[facility] LABORATORYCLIA [id number] [place] [address] [place] eGFRcr SerPlBld CKD-EPI 2020 63 mL/min/1.73m??? Normal >=60 [facility] Comment on above: Order Comment: Speci men Type: BLOOD SPECIMENOrdering Facility: [facility] Address: [address] [place] [address] Result Comment: Nancy mated Glomerular Filtration Rate [...] actual GFR. Performed By: #### 2 4323-8, 2777-1, 308- ####[facility] LABORATORYCLIA [id number] [place] [address] [place] Glucose [Mass/Vol] 151 mg/dL High 74-99 [facility] Comment on above: Order Comment: Demarco harris Type: BLOOD SPECIMENOrdering Facility: [facility] Address: [address] [place] [address] Result Comment: The [place] [employer] (ADA) provides guidance for cutoff [...] Standards of Medical Care in Diabetes 2016, [place] [employer]. Diabetes Care. 2016.39(Suppl 1). Performed By: #### 2 4323-8, 2777-1, 3083-1 ####[facility] LABORATORYCLIA [id number] [place] [address] [place] Potassium [Moles/Vol] 4.6 mmol/L Normal 3.7-5.1 [facility] Comment on above: Order Comment: Demarco harris Type: BLOOD SPECIMENOrdering Facility: [facility] Address: [address] [place] [id number] Performed By: #### 2 4323-8, 2777-1, 3084-1 ####[facility] LABORATORYCLIA [id number] [place] [address] [place] Protein [Mass/Vol] 6.7 g/dL Normal 6.3-8.0 [facility] Comment on above: Order Comment: Speci men Type: BLOOD SPECIMENOrdering Facility: [facility] Address: [address] [place], [place] [address] Performed By: #### 2 4323-8, 2777-1, 3084-1 ####[facility] LABORATORYCLIA [id number] [place] [address] [place] Sodium [Moles/Vol] 146 mmol/L High 136-144 [facility] Comment on above: Order Comment: Speci men Type: BLOOD SPECIMENOrdering Facility: [facility] Address: [address] [place], [place] [address] Performed By: #### 2 4323-8, 277-, 3083- ####[facility] HOSPITALIA [id number] [place] [address] [place] Urea nitrogen [Mass/Vol] 35 mg/dL High 9-24 [facility] Comment on above: Order Comment: Speci men Type: BLOOD SPECIMENOrdering Facility: [facility] Address: [address] [place] [address] Performed By: #### 2 4323-8, 2777-1, 308-1 ####[facility] LABORATORYCLIA [id number] [place] [address] [place] Phosphate SerPl-mCncon 03-30 Phosphate [Mass/Vol] 3.5 mg/dL Normal 2.7-4.8 [facility] Comment on above: Order Comment: Speci men Type: BLOOD SPECIMENOrdering Facility: [facility] Address: [address] [place] [address] Performed By: #### 2 4323-8, 2777-1, 3084-1 ####[facility] LABORATORYCLIA [id number] [place] [address] [place] TYPE + SCREENon 03-30-2025 ABO A Normal [facility] Comment on above: Order Comment: Speci men Type: BLOOD SPECIMENOrdering Facility: [facility] Address: [address] [place] [address] Performed By: #### T SCR, [id number] ####[facility] LABCLIA [id number] [place] [id number] [place] Rh Nom (Bld) Positive Normal [facility] Comment on above: Order Comment: Speci men Type: BLOOD SPECIMENOrdering Facility: [facility] Address: [address] [place] [address] Performed By: #### T SCR, [id number] ####[facility] LABCLIA [id number] [place] [address] [place] TYPE AND SCREEN EXPIRATION 04/02/2025 23:59 Normal [facility] Comment on above: Order Comment: Speci men Type: BLOOD SPECIMENOrdering Facility: [facility] Address: [address] [place] [address] Performed By: #### T SCR, [id number] ####[facility] LABCLIA [id number] [place] [id number] [place] Urate SerPl-mCncon Urate [Mass/Vol] 5.4 mg/dL Normal 4.0-8.1 [facility] Comment on above: Order Comment: Speci men Type: BLOOD SPECIMENOrdering Facility: [facility] Address: [address] [place] [address] Performed By: #### 2 4323-8, 277-1, 3084-1 ####[facility] LABORATORYCLIA [id number] [place] [address] [place] CNPNon 03-17-2025 CNPN Normal [facility] BLOOD BANK COMMENTon 025 BLOOD BANK COMMENT See Comment Normal [facility] Comment on above: Order Comment: Speci men Type: BLOOD SPECIMENOrdering Facility: [facility] Address: [address] [place] [address] Result Comment: anti body ID not required. Last Antibody ID performed on 03/05/25 Performed By: #### L [id number], TSCR ####[facility] BLOOD BANKCLIA [id number] [place] [address] [place] CBC W Auto Differential pane l (Bld)on 03-16-2025 Anisocytosis Ql (Bld) Present Normal [facility] Comment on above: Order Comment: Speci men Type: BLOOD SPECIMENOrdering Facility: [facility] Address: [address] [place] [address] Performed By: #### 5 7021-8 ####[facility] LABORATORYIA [id number] [place] [address] [place] Basophils (Bld) [#/Vol] 0.00 10*3/uL Normal <0.11 [facility] Comment on above: Order Comment: Speci men Type: BLOOD SPECIMENOrdering Facility: [facility] Address: [address] [place] [address] Performed By: #### 5 7021-8 ####[facility] LABORATORYIA [id number] [address] Basophils/100 WBC (Bld) 0.0 % Normal [facility] Comment on above: Order Comment: Speci men Type: BLOOD SPECIMENOrdering Facility: [facility] Address: [address] [place] [address] Performed By: #### 5 7021-8 ####[facility] LABORATORYIA [id number] [place] [address] [place] Dacrocytes LM Ql (Bld) Few Normal [place] Comment on above: Order Comment: Speci men Type: BLOOD SPECIMENOrdering Facility: [facility] Address: [address] [place] [address] Performed By: #### 5 7021-8 ####[facility] LABORATORYCLIA [id number] [place] [address] [facility] Differential cell count method Nom (Bld) Manual Normal [facility] Comment on above: Order Comment: Speci men Type: BLOOD SPECIMENOrdering Facility: [facility] Address: [address] [place] [address] Performed By: #### 5 7021-8 ####[facility] LABORATORYCLIA [id number] [place] [address] [place] Eosinophils (Bld) [#/Vol] 0.00 10*3/uL Normal <0.46 [facility] Comment on above: Order Comment: Speci men Type: BLOOD SPECIMENOrdering Facility: [facility] Address: [address] [place] [address] Performed By: #### 5 7021-8 ####[facility] LABORATORYIA [id number] [address] Eosinophils/100 WBC (Bld) 0.0 % Normal [facility] Comment on above: Order Comment: Speci men Type: BLOOD SPECIMENOrdering Facility: [facility] Address: [address] [place] [address] Performed By: #### 5 7021-8 ####[facility] LABORATORYIA [id number] [address] [place] [facility] Erythrocyte distribution width (RBC) [Ratio] 17.2 % High 11.5-15.0 [facility] Comment on above: Order Comment: Speci men Type: BLOOD SPECIMENOrdering Facility: [facility] Address: [address] [place] [address] Performed By: #### 5 7021-8 ####[facility] LABORATORYIA [id number] [place] [address] [facility] [place] Hematocrit (Bld) [Volume fraction] 35.9 % Low 39.0-51.0 [facility] Comment on above: Order Comment: Speci men Type: BLOOD SPECIMENOrdering Facility: [facility] Address: [address] [place] [address] Performed By: #### 5 7021-8 ####[facility] LABORATORYCLIA [id number] [place] [address] [place] Hemoglobin (Bld) [Mass/Vol] 11.4 g/dL Low 13.0-17.0 [facility] Comment on above: Order Comment: Speci men Type: BLOOD SPECIMENOrdering Facility: [facility] Address: [address] [place] [address] Performed By: #### 5 7021-8 ####[facility] LABORATORYIA [id number] [place] [address] [place] Lymphocytes (Bld) [#/Vol] 8.56 10*3/uL High 1.00-4.00 [facility] Comment on above: Order Comment: Speci men Type: BLOOD SPECIMENOrdering Facility: [facility] Address: [address] [place] [address] Performed By: #### 5 7021-8 ####[facility] LABORATORYIA [id number] [address] [place] Lymphocytes/100 WBC (Bld) 41.0 % Normal [facility] Comment on above: Order Comment: Speci men Type: BLOOD SPECIMENOrdering Facility: [facility] Address: [address] [place] [address] Performed By: #### 5 7021-8 ####[facility] LABORATORYCLIA [id number] [place] [address] [place] LYMPHOMA CELL 29.0 % Normal [facility] Comment on above: Order Comment: Speci men Type: BLOOD SPECIMENOrdering Facility: [facility] Address: [address] [place] [address] Performed By: #### 5 7021-8 ####[facility] LABORATORYCLIA [id number] [address] MCH (RBC) [Entitic mass] 29.3 pg Normal 26.0-34.0 [facility] Comment on above: Order Comment: Speci men Type: BLOOD SPECIMENOrdering Facility: [facility] Address: [address] [place] [address] Performed By: #### 5 7021-8 ####[facility] LABORATORYCLIA [id number] [address] MCHC (RBC) [Mass/Vol] 31.8 g/dL Normal 30.5-36.0 [facility] Comment on above: Order Comment: Speci men Type: BLOOD SPECIMENOrdering Facility: [facility] Address: [address] [place] [address] Performed By: #### 5 7021-8 ####[facility]ONSANAM [facility] HOSPITALIA [id number] [address] MCV (RBC) [Entitic vol] 92.3 fL Normal 80.0-100.0 C [facility] Comment on above: Order Comment: Speci men Type: BLOOD SPECIMENOrdering Facility: [facility] Address: [address] [place] [address] Performed By: #### 5 7021-8 ####[facility] LABORATORYIA [id number] [address] Monocytes (Bld) [#/Vol] 0.21 10*3/uL Normal <0.87 [facility] Comment on above: Order Comment: Speci men Type: BLOOD SPECIMENOrdering Facility: [facility] Address: [address] [place] [address] Performed By: #### 5 7021-8 ####[facility] LABORATORYIA [id number] [address] Monocytes/100 WBC (Bld) 1.0 % Normal C [facility] Comment on above: Order Comment: Speci men Type: BLOOD SPECIMENOrdering Facility: [facility] Address: [address] [place] [address] Performed By: #### 5 7021-8 ####[facility] LABORATORYCLIA [id number] [address] [place] Neutrophils (Bld) [#/Vol] 6.06 10*3/uL Normal 1.45-7.50 [facility] Comment on above: Order Comment: Speci men Type: BLOOD SPECIMENOrdering Facility: [facility] Address: [address] [place] [address] Performed By: #### 5 7021-8 ####[facility] LABORATORYCLIA [id number] [place] [address] [place] [facility] Neutrophils/100 WBC (Bld) 29.0 % Normal [facility] Comment on above: Order Comment: Speci men Type: BLOOD SPECIMENOrdering Facility: [facility] Address: [address] [place] [address] Performed By: #### 5 7021-8 ####[facility] LABORATORYIA [id number] [place] [address] [place] [facility] Nucleated RBC (Bld) [#/Vol] 10*3/uL Normal <0.01 [facility] Comment on above: Order Comment: Speci men Type: BLOOD SPECIMENOrdering Facility: [facility] Address: [address] [place] [address] Performed By: #### 5 7021-8 ####[facility] LABORATORYCLIA [id number] [address] STATES [facility] Nucleated RBC/100 WBC (Bld) [Ratio] 0.0 /100 WBC Normal [facility] Comment on above: Order Comment: Speci men Type: BLOOD SPECIMENOrdering Facility: [facility] Address: [address] [place] [address] Performed By: #### 5 7021-8 ####[facility] LABORATORYCLIA [id number] [place] [address] [place] Ovalocytes LM Ql (Bld) Few Normal Cl [facility] Comment on above: Order Comment: Speci men Type: BLOOD SPECIMENOrdering Facility: [facility] Address: [address] [place] [address] Performed By: #### 5 7021-8 ####[facility] LABORATORYCLIA [id number] [place] [address] [place] Platelet mean volume (Bld) [Entitic vol] 9.9 fL Normal 9.0-12.7 [facility] Comment on above: Order Comment: Speci men Type: BLOOD SPECIMENOrdering Facility: [facility] Address: [address] [place] [address] Performed By: #### 5 7021-8 ####[facility]NAM [facility] HOSPITALIA [id number] [place] [address] [place] Platelets (Bld) [#/Vol] 158 10*3/uL Normal 150-400 [facility] Comment on above: Order Comment: Speci men Type: BLOOD SPECIMENOrdering Facility: [facility] Address: [address] [place] [address] Performed By: #### 5 7021-8 ####[facility] LABORATORYIA [id number] [place] [address] [place] Platelets Estimate (Bld) [#/Vol] Adequate Normal [facility] Comment on above: Order Comment: Speci men Type: BLOOD SPECIMENOrdering Facility: [facility] Address: [address] [place] [address] Performed By: #### 5 7021-8 ####[facility] LABORATORYIA [id number] [place] [address] [place] RBC (Bld) [#/Vol] 3.89 10*6/uL Low 4.20-6.00 [facility] Comment on above: Order Comment: Speci men Type: BLOOD SPECIMENOrdering Facility: [facility] Address: [address] [place] [address] Performed By: #### 5 7021-8 ####[facility] LABORATORYCLIA [id number] [address] STATES [facility] RED CELL MORPH Reviewed: see result s of individual morphologies Normal [facility] Comment on above: Order Comment: Speci men Type: BLOOD SPECIMENOrdering Facility: [facility] Address: [address] [place] [address] Performed By: #### 5 7021-8 ####[facility] LABORATORYCLIA [id number] [place] [address] [place] WBC (Bld) [#/Vol] 20.89 10*3/uL High 3.70-11.00 [facility] Comment on above: Order Comment: Speci men Type: BLOOD SPECIMENOrdering Facility: [facility] Address: [address] [place] [address] Performed By: #### 5 7021-8 ####[facility]ONSHIRLEY [facility] HOSPITALIA [id number] [address] OF [facility] Comprehensive metabolic 2000 panelon 03-16-2025 Albumin [Mass/Vol] 4.1 g/dL Normal 3.9-4.9 [facility] Comment on above: Order Comment: Speci men Type: BLOOD SPECIMENOrdering Facility: [facility] Address: [address] [place] [address] Performed By: #### 2 4323-8, 2777-1, 3084-1 ####[facility] LABORATORYIA [id number] [address] [place] ALP [Catalytic activity/Vol] 95 U/L Normal 38-113 [facility] Comment on above: Order Comment: Speci men Type: BLOOD SPECIMENOrdering Facility: [facility] Address: [address] [place] [address] Performed By: #### 2 4323-8, 2777-1, 3084-1 ####[facility] LABORATORYCLIA [id number] [place] [address] [place] ALT [Catalytic activity/Vol] 33 U/L Normal 10-54 [facility] Comment on above: Order Comment: Speci men Type: BLOOD SPECIMENOrdering Facility: [facility] Address: [address] [place] [address] Performed By: #### 2 4323-8, 2777-1, 3084-1 ####[facility] LABORATORYCLIA [id number] [place] [address] [place] Anion gap [Moles/Vol] 14 mmol/L Normal 8-15 [facility] Comment on above: Order Comment: Speci men Type: BLOOD SPECIMENOrdering Facility: [facility] Address: [address] [place] [address] Performed By: #### 2 4323-8, 2777-1, 3084-1 ####[facility] LABORATORYCLIA [id number] [place] [address] [place] AST [Catalytic activity/Vol] 28 U/L Normal 14-40 [facility] Comment on above: Order Comment: Speci men Type: BLOOD SPECIMENOrdering Facility: [facility] Address: [address] [place] [address] Performed By: #### 2 4323-8, 2777-1, 3084-1 ####[facility] LABORATORYCLIA [id number] [place] [address] [place] Bilirubin [Mass/Vol] 0.2 mg/dL Normal 0.2-1.3 [facility] Comment on above: Order Comment: Speci men Type: BLOOD SPECIMENOrdering Facility: [facility] Address: [address] [place] [address] Performed By: #### 2 4323-8, 2777-1, 3084-1 ####[facility] LABORATORYCLIA [id number] [place] [address] [place] Calcium [Mass/Vol] 9.4 mg/dL Normal 8.5-10.2 [facility] Comment on above: Order Comment: Speci men Type: BLOOD SPECIMENOrdering Facility: [facility] Address: [address] [place] [address] Performed By: #### 2 4323-8, 2777-1, 3083-1 ###AnniaSHANONSANAM [facility] LABORATORYCLIA [id number] [place] [address] [place] Chloride [Moles/Vol] 111 mmol/L High 98-107 [facility] Comment on above: Order Comment: Speci men Type: BLOOD SPECIMENOrdering Facility: [facility] Address: [address] [place] [address] Performed By: #### 2 4323-8, 277-, 308- ###[facility]ANI [facility] LABORATORYCLIA [id number] [place] [address] [place] CO2 [Moles/Vol] 19 mmol/L Low 22-30 [facility] Comment on above: Order Comment: Speci men Type: BLOOD SPECIMENOrdering Facility: [facility] Address: [address] [place] [address] Performed By: #### 2 4323-8, 277-, 308- ###[facility] LABORATORYCLIA [id number] [place] [address] [place] Creatinine [Mass/Vol] 1.03 mg/dL Normal 0.73-1.22 [facility] Comment on above: Order Comment: Speci men Type: BLOOD SPECIMENOrdering Facility: [facility] Address: [address] [place] [address] Performed By: #### 2 4323-8, 2777-1, 308-1 ####[facility] LABORATORYCLIA [id number] [place] [address] [place] eGFRcr SerPlBld CKD-EPI 2020 76 mL/min/1.73m??? Normal >=60 [facility] Comment on above: Order Comment: Speci men Type: BLOOD SPECIMENOrdering Facility: [facility] Address: [address] [place] [address] Result Comment: Nancy mated Glomerular Filtration Rate [...] actual GFR. Performed By: #### 2 4323-8, 27712-09, 3083-06 ####[facility] LABORATORYCLIA [id number] [place] [address] [place] Glucose [Mass/Vol] 189 mg/dL High 74-99 [facility] Comment on above: Order Comment: Specjoao men Type: BLOOD SPECIMENOrdering Facility: [facility] Address: [address] [place] [address] Result Comment: The [employer] (ADA) provides guidance for cutoff [...] Standards of Medical Care in Diabetes 2016, [employer]. Diabetes Care. 2016.39(Suppl 1). Performed By: #### 2 4323-8, 27712-09, 3083-06 ####[facility]SHIRLEY [facility] LABORATORYCLIA [id number] [place] [address] [place] Potassium [Moles/Vol] 4.4 mmol/L Normal 3.7-5.1 [facility] Comment on above: Order Comment: Demarco harris Type: BLOOD SPECIMENOrdering Facility: [facility] Address: [address] [place] [id number] Performed By: #### 2 4323-8, 27712-09, 3084-1 ####[facility] LABORATORYCLIA [id number] [place] [address] [place] Protein [Mass/Vol] 6.5 g/dL Normal 6.3-8.0 [facility] Comment on above: Order Comment: Speci men Type: BLOOD SPECIMENOrdering Facility: [facility] Address: [address] [place] [address] Performed By: #### 2 4323-8, 2777-1, 3084-1 ####[facility] LABORATORYCLIA [id number] [place] [address] [place] Sodium [Moles/Vol] 144 mmol/L Normal 136-144 [facility] Comment on above: Order Comment: Speci men Type: BLOOD SPECIMENOrdering Facility: [facility] Address: [address] [place] [address] Performed By: #### 2 4323-8, 2777-1, 3083-1 ####[facility] LABORATORYCLIA [id number] [place] [address] [place] Urea nitrogen [Mass/Vol] 42 mg/dL High 9-24 [facility] Comment on above: Order Comment: Speci men Type: BLOOD SPECIMENOrdering Facility: [facility] Address: [address] [place] [address] Performed By: #### 2 4323-8, 2777-1, 3084-1 ####[facility] LABORATORYCLIA [id number] [place] [address] [place] Phosphate SerPl-mCncon 03-16 Phosphate [Mass/Vol] 3.6 mg/dL Normal 2.7-4.8 [facility] Comment on above: Order Comment: Speci men Type: BLOOD SPECIMENOrdering Facility: [facility] Address: [address] [place] [address] Performed By: #### 2 4323-8, 2777-1, 3084-1 ###[facility] LABORATORYCLIA [id number] [place] [address] [place] TYPE + SCREENon 03-16-2025 ABO A Normal [facility] Comment on above: Order Comment: Speci men Type: BLOOD SPECIMENOrdering Facility: [facility] Address: [address] [place] [address] Performed By: #### L [id number], TSCR ####CC [facility] BLOOD BANKCLIA [id number] [place] [address] [place] Rh Nom (Bld) Positive Normal [facility] Comment on above: Order Comment: Speci men Type: BLOOD SPECIMENOrdering Facility: [facility] Address: [address] [place] [address] Performed By: #### L [id number], TSCR ####CC MAIN BLOOD BANKCLIA [id number] [place] [address] [place] TYPE AND SCREEN EXPIRATION 03/19/2025 23:59 Normal [facility] Comment on above: Order Comment: Speci men Type: BLOOD SPECIMENOrdering Facility: [facility] Address: [address] [place] [address] Performed By: #### L [id number], TSCR ####CC MAIN BLOOD BANKCLIA [id number] [place] [address] [place] Urate SerPl-mCncon Urate [Mass/Vol] 4.8 mg/dL Normal 4.0-8.1 [facility] Comment on above: Order Comment: Speci men Type: BLOOD SPECIMENOrdering Facility: [facility] Address: [address] [place] [address] Performed By: #### 2 4323-8, 2777-1, 3084-1 ####[facility] LABORATORYCLIA [id number] [place] [address] [place] CNPNon 03-12-2025 CNPN Normal [facility] CNOVSPon 03-10-2025 CNOVSP Normal [facility] CNPNon 03-06-2025 CNPN Normal [facility] BLOOD BANK COMMENTon 025 BLOOD BANK COMMENT See Comment Normal [facility] Comment on above: Order Comment: Speci men Type: BLOOD SPECIMENOrdering Facility: [facility] Address: [address] [place] [address] Result Comment: anti body ID not required. Last Antibody ID performed on 02/23/2025 Performed By: #### L [id number], TSCR ####[facility] BLOOD BANKCLIA [id number] [place] [address] [place] CBC W Auto Differential pane l (Bld)on 03-05-2025 Anisocytosis Ql (Bld) Present Normal [facility] Comment on above: Order Comment: Speci men Type: BLOOD SPECIMENOrdering Facility: [facility] Address: [address] [place] [address] Performed By: #### 5 7021-8 ####[facility] LABORATORYCLIA [id number] [address] LABCLIA [id number] [place] [address] [place] Basophils (Bld) [#/Vol] 0.35 10*3/uL High <0.11 [facility] Comment on above: Order Comment: Speci men Type: BLOOD SPECIMENOrdering Facility: [facility] Address: [address] [place] [address] Performed By: #### 5 7021-8 ####[facility] LABORATORYCLIA [id number] [address] LABCLIA [id number] [place] [address] [place] Basophils/100 WBC (Bld) 1.0 % Normal [facility] Comment on above: Order Comment: Speci men Type: BLOOD SPECIMENOrdering Facility: [facility] Address: [address] [place] [address] Performed By: #### 5 7021-8 ####[facility] LABORATORYCLIA [id number] [address] LABCLIA [id number] [facility] [place] [address] [place] Differential cell count method Nom (Bld) Manual Normal [facility] Comment on above: Order Comment: Speci men Type: BLOOD SPECIMENOrdering Facility: [facility] Address: [address] [place] [address] Performed By: #### 5 7021-8 ####[facility] LABORATORYCLIA [id number] [address] LABCLIA [id number] [place] [address] [place] Eosinophils (Bld) [#/Vol] 0.00 10*3/uL Normal <0.46 [facility] Comment on above: Order Comment: Speci men Type: BLOOD SPECIMENOrdering Facility: [facility] Address: [address] [place] [address] Performed By: #### 5 7021-8 ####[facility] LABORATORYCLIA [id number] [address] LABCLIA [id number] [facility] [place] [address] [place] Eosinophils/100 WBC (Bld) 0.0 % Normal [facility] Comment on above: Order Comment: Speci men Type: BLOOD SPECIMENOrdering Facility: [facility] Address: [address] [place], [place] [address] Performed By: #### 5 7021-8 ####[facility] LABORATORYCLIA [id number] [address] LABCLIA [id number] [address] [id number] [address] [place] Erythrocyte distribution width (RBC) [Ratio] 18.5 % High 11.5-15.0 [facility] Comment on above: Order Comment: Speci men Type: BLOOD SPECIMENOrdering Facility: [facility] Address: [address] [place] [address] Performed By: #### 5 7021-8 ####[facility] LABORATORYCLIA [id number] [address] LABCLIA [id number] [place] [address] [place] Hematocrit (Bld) [Volume fraction] 37.0 % Low 39.0-51.0 [facility] Comment on above: Order Comment: Speci men Type: BLOOD SPECIMENOrdering Facility: [facility] Address: [address] [place] [address] Performed By: #### 5 7021-8 ####[facility] LABORATORYCLIA [id number] [address] LABCLIA [id number] [place] [address] [place] Hemoglobin (Bld) [Mass/Vol] 11.4 g/dL Low 13.0-17.0 [facility] Comment on above: Order Comment: Speci men Type: BLOOD SPECIMENOrdering Facility: [facility] Address: [address] [place] [address] Performed By: #### 5 7021-8 ####[facility] LABORATORYCLIA [id number] [address] LABIA [id number] [place] [address] [place] Lymphocytes (Bld) [#/Vol] 14.46 10*3/uL High 1.00-4.00 [facility] Comment on above: Order Comment: Speci men Type: BLOOD SPECIMENOrdering Facility: [facility] Address: [address] [place] [address] Performed By: #### 5 7021-8 ####[facility] LABORATORYCLIA [id number] [address] LABCLIA [id number] [facility]POM[facility]OSPITALK [address] [place] [address] [place] Lymphocytes/100 WBC (Bld) 41.0 % Normal [facility] Comment on above: Order Comment: Speci men Type: BLOOD SPECIMENOrdering Facility: [facility] Address: [address] [place] [address] Performed By: #### 5 7021-8 ####SHANONSANAM [facility] LABORATORYCLIA [id number] [address] LABCLIA [id number] [facility]OSP[facility]ALK [address], [facility] [place] LYMPHOMA CELL 36.0 % Normal [facility] Comment on above: Order Comment: Speci men Type: BLOOD SPECIMENOrdering Facility: [facility] Address: [address] [place] [address] Performed By: #### 5 7021-8 ####SHANONSANAM [facility] LABORATORYCLIA [id number] [address] LABCLIA [id number] [facility]OSPITALK [address] [place] [address] [place] MCH (RBC) [Entitic mass] 28.9 pg Normal 26.0-34.0 [facility] Comment on above: Order Comment: Speci men Type: BLOOD SPECIMENOrdering Facility: [facility] Address: [address] [place], [place] [address] Performed By: #### 5 7021-8 ####SHANONSANAM [facility] LABORATORYCLIA [id number] [address] LABCLIA [id number] [facility] [address] [place] [address] [place] MCHC (RBC) [Mass/Vol] 30.8 g/dL Normal 30.5-36.0 [facility] Comment on above: Order Comment: Speci men Type: BLOOD SPECIMENOrdering Facility: [facility] Address: [address] [place] [address] Performed By: #### 5 7021-8 ####[facility] LABORATORYCLIA [id number] [address] LABCLIA [id number] [place] [address] [place] MCV (RBC) [Entitic vol] 93.9 fL Normal 80.0-100.0 [facility] Comment on above: Order Comment: Speci men Type: BLOOD SPECIMENOrdering Facility: [facility] Address: [address] [place] [address] Performed By: #### 5 7021-8 ####[facility] LABORATORYCLIA [id number] [address] LABCLIA [id number] [place] [address] [place] Monocytes (Bld) [#/Vol] 0.71 10*3/uL Normal <0.87 [facility] Comment on above: Order Comment: Speci men Type: BLOOD SPECIMENOrdering Facility: [facility] Address: [address] [place] [address] Performed By: #### 5 7021-8 ####[facility] LABORATORYCLIA [id number] [address] LABCLIA [id number] [place] [address] [place] Monocytes/100 WBC (Bld) 2.0 % Normal [facility] Comment on above: Order Comment: Speci men Type: BLOOD SPECIMENOrdering Facility: [facility] Address: [address] [place] [address] Performed By: #### 5 7021-8 ####[facility] LABORATORYCLIA [id number] [address] LABCLIA [id number] [facility] [address] [address] [place] Neutrophils (Bld) [#/Vol] 7.05 10*3/uL Normal 1.45-7.50 [facility] Comment on above: Order Comment: Speci men Type: BLOOD SPECIMENOrdering Facility: [facility] Address: [address] [place] [address] Performed By: #### 5 7021-8 ####[facility] LABORATORYCLIA [id number] [address] LABCLIA [id number] [facility] [place] [address] [place] Neutrophils/100 WBC (Bld) 20.0 % Normal [facility] Comment on above: Order Comment: Speci men Type: BLOOD SPECIMENOrdering Facility: [facility] Address: [address] [place] [address] Performed By: #### 5 7021-8 ####[facility] LABORATORYCLIA [id number] [address] LABCLIA [id number] [facility] [address] [address] [place] Nucleated RBC (Bld) [#/Vol] 10*3/uL Normal <0.01 [facility] Comment on above: Order Comment: Speci men Type: BLOOD SPECIMENOrdering Facility: [facility] Address: [address] [place], [place] [id number] Performed By: #### 5 7021-8 ####[facility] LABORATORYCLIA [id number] [address] LABCLIA [id number] [facility] [address] [place] [address] [place] Nucleated RBC/100 WBC (Bld) [Ratio] 0.0 /100 WBC Normal [facility] Comment on above: Order Comment: Speci men Type: BLOOD SPECIMENOrdering Facility: [facility] Address: [address] [place] [address] Performed By: #### 5 7021-8 ####[facility] LABORATORYCLIA [id number] [address] LABCLIA [id number] [place] [address] [place] Platelet mean volume (Bld) [Entitic vol] 10.1 fL Normal 9.0-12.7 [facility] Comment on above: Order Comment: Speci men Type: BLOOD SPECIMENOrdering Facility: [facility] Address: [address] [place] [address] Performed By: #### 5 7021-8 ####[facility] LABORATORYCLIA [id number] [address] LABCLIA [id number] [place] [address] [place] Platelets (Bld) [#/Vol] 224 10*3/uL Normal 150-400 [facility] Comment on above: Order Comment: Speci men Type: BLOOD SPECIMENOrdering Facility: [facility] Address: [address] [place] [address] Performed By: #### 5 7021-8 ####[facility] LABORATORYCLIA [id number] [address] LABCLIA [id number] [place] [address] [place] Platelets Estimate (Bld) [#/Vol] Adequate Normal [facility] Comment on above: Order Comment: Speci men Type: BLOOD SPECIMENOrdering Facility: [facility] Address: [address] [place] [address] Performed By: #### 5 7021-8 ####[facility] LABORATORYCLIA [id number] [address] LABCLIA [id number] [address] [address] [place] RBC (Bld) [#/Vol] 3.94 10*6/uL Low 4.20-6.00 [facility] Comment on above: Order Comment: Speci men Type: BLOOD SPECIMENOrdering Facility: [facility] Address: [address] [place] [address] Performed By: #### 5 7021-8 ####[facility] LABORATORYCLIA [id number] [address] LABCLIA [id number] [place] [address] [place] RED CELL MORPH Reviewed: see result s of individual morphologies Normal [facility] Comment on above: Order Comment: Speci men Type: BLOOD SPECIMENOrdering Facility: [facility] Address: [address] [place] [address] Performed By: #### 5 7021-8 ####[facility] LABORATORYCLIA [id number] [address] LABCLIA [id number] [address] [address] [place] WBC (Bld) [#/Vol] 35.26 10*3/uL High 3.70-11.00 [facility] Comment on above: Order Comment: Speci men Type: BLOOD SPECIMENOrdering Facility: [facility] Address: [address] [place], [place] [address] Performed By: #### 5 7021-8 ####[facility] LABORATORYCLIA [id number] [address] LABCLIA [id number] [address] [address] [place] CNPTOUTREACHon 03-05-2025 CNPTOUTREACH Normal [facility] Comprehensive metabolic 2000 panelon 03-05-2025 Albumin [Mass/Vol] 4.1 g/dL Normal 3.9-4.9 [facility] Comment on above: Order Comment: Speci men Type: BLOOD SPECIMENOrdering Facility: [facility] Address: [address] [place] [address] Performed By: #### 2 4323-8, 2777-1, 3084-1 ####[facility] LABORATORYCLIA [id number] [place] [address] [place] ALP [Catalytic activity/Vol] 102 U/L Normal 38-113 [facility] Comment on above: Order Comment: Speci men Type: BLOOD SPECIMENOrdering Facility: [facility] Address: [address] [place] [address] Performed By: #### 2 4323-8, 2777-1, 3084-1 ###[facility] H[facility]PITALIA [id number] [place] [address] [place] ALT [Catalytic activity/Vol] 34 U/L Normal 10-54 [facility] Comment on above: Order Comment: Speci men Type: BLOOD SPECIMENOrdering Facility: [facility] Address: [address] [place] [address] Performed By: #### 2 4323-8, 2777-1, 3084-1 ###[facility] LABORATORYIA [id number] [place] [address] [place] Anion gap [Moles/Vol] 18 mmol/L High 8-15 [facility] Comment on above: Order Comment: Speci men Type: BLOOD SPECIMENOrdering Facility: [facility] Address: [address] [place] [address] Performed By: #### 2 4323-8, 2777-1, 3084-1 ####[facility] LABORATORYIA [id number] [place] [address] [place] AST [Catalytic activity/Vol] 32 U/L Normal 14-40 [facility] Comment on above: Order Comment: Speci men Type: BLOOD SPECIMENOrdering Facility: [facility] Address: [address] [place] [address] Performed By: #### 2 4323-8, 2776-, 3083-06 ####[facility] LABORATORYCLIA [id number] [place] [address] [place] Bilirubin [Mass/Vol] 0.3 mg/dL Normal 0.2-1.3 [facility] Comment on above: Order Comment: Speci men Type: BLOOD SPECIMENOrdering Facility: [facility] Address: [address] [place] [address] Performed By: #### 2 4323-8, 27712-09, 3083-06 ####[facility] LABORATORYCLIA [id number] [place] [address] [place] Calcium [Mass/Vol] 9.2 mg/dL Normal 8.5-10.2 [facility] Comment on above: Order Comment: Speci men Type: BLOOD SPECIMENOrdering Facility: [facility] Address: [address] [place] [address] Performed By: #### 2 4323-8, 27712-09, 3083-06 ####[facility] LABORATORYCLIA [id number] [place] [address] [place] Chloride [Moles/Vol] 107 mmol/L Normal 98-107 [facility] Comment on above: Order Comment: Speci men Type: BLOOD SPECIMENOrdering Facility: [facility] Address: [address] [place], [place] [address] Performed By: #### 2 4323-8, 27712-09, 3083-06 ####[facility] LABORATORYCLIA [id number] [place] [address] [place] CO2 [Moles/Vol] 20 mmol/L Low 22-30 [facility] Comment on above: Order Comment: Speci men Type: BLOOD SPECIMENOrdering Facility: [facility] Address: [address] [place] [address] Performed By: #### 2 4323-8, 2777-1, 3083- ####[facility] LABORATORYCLIA [id number] [place] [address] [place] Creatinine [Mass/Vol] 1.18 mg/dL Normal 0.73-1.22 [facility] Comment on above: Order Comment: Speci men Type: BLOOD SPECIMENOrdering Facility: [facility] Address: [address] [place] [address] Performed By: #### 2 4323-8, 277-1, 3083- ####[facility] LABORATORYCLIA [id number] [place] [address] [place] eGFRcr SerPlBld CKD-EPI 2020 64 mL/min/1.73m??? Normal >=60 [facility] Comment on above: Order Comment: Speci men Type: BLOOD SPECIMENOrdering Facility: [facility] Address: [address] [place] [address] Result Comment: Nancy mated Glomerular Filtration Rate [...] actual GFR. Performed By: #### 2 4323-8, 277-, 3083-06 ####[facility] LABORATORYCLIA [id number] [place] [address] [place] Glucose [Mass/Vol] 106 mg/dL High 74-99 [facility] Comment on above: Order Comment: Speci men Type: BLOOD SPECIMENOrdering Facility: [facility] Address: [address] [place] [address] Result Comment: The [place] [employer] (ADA) provides guidance for cutoff [...] Standards of Medical Care in Diabetes 2016, [place] [employer]. Diabetes Care. 2016.39(Suppl 1). Performed By: #### 2 4323-8, 2777-, 3083- ####[facility] LABORATORYCLIA [id number] [place] [address] [place] Potassium [Moles/Vol] 4.1 mmol/L Normal 3.7-5.1 [facility] Comment on above: Order Comment: Speci men Type: BLOOD SPECIMENOrdering Facility: [facility] Address: [address] [place] [address] Performed By: #### 2 4323-8, 2776-, 3083- ####[facility] LABORATORYCLIA [id number] [place] [address] [place] Protein [Mass/Vol] 6.6 g/dL Normal 6.3-8.0 [facility] Comment on above: Order Comment: Speci men Type: BLOOD SPECIMENOrdering Facility: [facility] Address: [address] [place] [address] Performed By: #### 2 4323-8, 277-, 3083- ####[facility] LABORATORYCLIA [id number] [place] [address] [place] Sodium [Moles/Vol] 145 mmol/L High 136-144 [facility] Comment on above: Order Comment: Speci men Type: BLOOD SPECIMENOrdering Facility: [facility] Address: [address] [place] [address] Performed By: #### 2 4323-8, 277-, 3083-1 ####[facility] LABORATORYCLIA [id number] [place] [address] [place] Urea nitrogen [Mass/Vol] 40 mg/dL High 9-24 [facility] Comment on above: Order Comment: Speci men Type: BLOOD SPECIMENOrdering Facility: [facility] Address: [address] [place] [address] Performed By: #### 2 4323-8, 2777-1, 3084-1 ####[facility] LABORATORYCLIA [id number] [place] [address] [place] Phosphate SerPl-mCncon 03-05 Phosphate [Mass/Vol] 4.2 mg/dL Normal 2.7-4.8 [facility] Comment on above: Order Comment: Speci men Type: BLOOD SPECIMENOrdering Facility: [facility] Address: [address] [place] [address] Performed By: #### 2 4323-8, 2777-1, 3084-1 ####[facility] LABORATORYCLIA [id number] [place] [address] [place] TYPE + SCREENon 03-05-2025 ABO A Normal [facility] Comment on above: Order Comment: Speci men Type: BLOOD SPECIMENOrdering Facility: [facility] Address: [address] [place] [address] Performed By: #### L [id number], TSCR ####[facility] BLOOD BANKCLIA [id number] [place] [address] [place] Rh Nom (Bld) Positive Normal [facility] Comment on above: Order Comment: Speci men Type: BLOOD SPECIMENOrdering Facility: [facility] Address: [address] [place] [address] Performed By: #### L [id number], TSCR ####[facility] MA[facility] BLOOD BANKCLIA [id number] [place] [address] [place] TYPE AND SCREEN EXPIRATION 03/08/2025 23:59 Normal [facility] Comment on above: Order Comment: Speci men Type: BLOOD SPECIMENOrdering Facility: [facility] Address: [address] [place] [address] Performed By: #### L [id number], TSCR ####[facility] MA[facility] BLOOD BANKCLIA [id number] [place] [address] [place] Urate SerPl-mCncon Urate [Mass/Vol] 4.7 mg/dL Normal 4.0-8.1 [facility] Comment on above: Order Comment: Speci men Type: BLOOD SPECIMENOrdering Facility: [facility] Address: [address] [place] [address] Performed By: #### 2 4323-8, 2777-1, 3084-1 ####[facility] LABORATORYCLIA [id number] [place] [address] [place] CNPNon 03-04-2025 CNPN Normal [facility] CNPNon 03-02-2025 CNPN Normal [facility] CNPTOUTREACHon 03-02-2025 CNPTOUTREACH Normal [facility] CNPNon 02-27-2025 CNPN Normal [facility] CNPNon 02-26-2025 CNPN Normal [facility] ANTIBODY ID PATIENTon 2024 ANTIBODY IDENTIFIED Detected Normal [facility] Comment on above: Order Comment: Speci men Type: BLOOD SPECIMENOrdering Facility: [facility] Address: [address] [place] [address] Performed By: #### L [id number], TSCR, %MARYANN ####CC [facility] BLOOD BANKCLIA [id number] [place] [address] [place] BLOOD BANK COMMENTon 025 BLOOD BANK COMMENT See Comment Normal [facility] Comment on above: Order Comment: Speci men Type: BLOOD SPECIMENOrdering Facility: [facility] Address: [address] [place] [address] Result Comment: See physician's report under antibody interpretation from 12/23/24 Performed By: #### L [id number], TSCR, %MARYANN ####[facility] BLOOD BANKCLIA [id number] [place] [address] [place] CBC W Auto Differential pane l (Bld)on 02-23-2025 Anisocytosis Ql (Bld) Present Normal [facility] Comment on above: Order Comment: Speci men Type: BLOOD SPECIMENOrdering Facility: [facility] Address: [address] [place] [address] Performed By: #### 5 7021-8 ####[facility] LABORATORYCLIA [id number] [address] LABCLIA [id number] [place] [address] [place] Basophils (Bld) [#/Vol] 0.00 10*3/uL Normal <0.11 [facility] Comment on above: Order Comment: Speci men Type: BLOOD SPECIMENOrdering Facility: [facility] Address: [address] [place] [address] Performed By: #### 5 7021-8 ####[facility] LABORATORYCLIA [id number] [address] LABCLIA [id number] [place] [address] [place] Basophils/100 WBC (Bld) 0.0 % Normal [facility] Comment on above: Order Comment: Speci men Type: BLOOD SPECIMENOrdering Facility: [facility] Address: [address] [place] [address] Performed By: #### 5 7021-8 ####[facility] LABORATORYCLIA [id number] [address] OF [facility] LABCLIA [id number] [place] [address] [place] Differential cell count method Nom (Bld) Manual Normal [facility] Comment on above: Order Comment: Speci men Type: BLOOD SPECIMENOrdering Facility: [facility] Address: [address] [place] [address] Performed By: #### 5 7021-8 ####[facility] LABORATORYCLIA [id number] [address] LABCLIA [id number] [place] [address] [place] Eosinophils (Bld) [#/Vol] 0.00 10*3/uL Normal <0.46 [facility] Comment on above: Order Comment: Speci men Type: BLOOD SPECIMENOrdering Facility: [facility] Address: [address] [place] [address] Performed By: #### 5 7021-8 ####[facility] LABORATORYCLIA [id number] [address] LABCLIA [id number] [place] [address] [place] Eosinophils/100 WBC (Bld) 0.0 % Normal [facility] Comment on above: Order Comment: Speci men Type: BLOOD SPECIMENOrdering Facility: [facility] Address: [address] [place] [address] Performed By: #### 5 7021-8 ####[facility] LABORATORYCLIA [id number] [address] LABCLIA [id number] [place] [address] [place] Erythrocyte distribution width (RBC) [Ratio] 17.8 % High 11.5-15.0 [facility] Comment on above: Order Comment: Speci men Type: BLOOD SPECIMENOrdering Facility: [facility] Address: [address] [place] [address] Performed By: #### 5 7021-8 ####[facility] LABORATORYCLIA [id number] [address] LABCLIA [id number] [facility] [place] [address] [place] Hematocrit (Bld) [Volume fraction] 34.5 % Low 39.0-51.0 [facility] Comment on above: Order Comment: Speci men Type: BLOOD SPECIMENOrdering Facility: [facility] Address: [address] [place] [address] Performed By: #### 5 7021-8 ####[facility] LABORATORYCLIA [id number] [address] LABCLIA [id number] [place] [address] [place] Hemoglobin (Bld) [Mass/Vol] 10.5 g/dL Low 13.0-17.0 [facility] Comment on above: Order Comment: Speci men Type: BLOOD SPECIMENOrdering Facility: [facility] Address: [address] [place] [address] Performed By: #### 5 7021-8 ####[facility] LABORATORYCLIA [id number] [address] LABCLIA [id number] [address], [place] [address] [place] Lymphocytes (Bld) [#/Vol] 10.66 10*3/uL High 1.00-4.00 [facility] Comment on above: Order Comment: Speci men Type: BLOOD SPECIMENOrdering Facility: [facility] Address: [address] [place] [address] Performed By: #### 5 7021-8 ####[facility] LABORATORYCLIA [id number] [address] LABCLIA [id number] [place] [address] [place] Lymphocytes/100 WBC (Bld) 39.0 % Normal [facility] Comment on above: Order Comment: Speci men Type: BLOOD SPECIMENOrdering Facility: [facility] Address: [address] [place] [address] Performed By: #### 5 7021-8 ####[facility] LABORATORYCLIA [id number] [address] LABCLIA [id number] [address] STATES OF [facility] LYMPHOMA CELL 36.0 % Normal [facility] Comment on above: Order Comment: Speci men Type: BLOOD SPECIMENOrdering Facility: [facility] Address: [address] [place] [address] Performed By: #### 5 7021-8 ####[facility] LABORATORYCLIA [id number] [address] LABIA [id number] [place] [address] [place] MCH (RBC) [Entitic mass] 28.5 pg Normal 26.0-34.0 [facility] Comment on above: Order Comment: Speci men Type: BLOOD SPECIMENOrdering Facility: [facility] Address: [address] [place] [address] Performed By: #### 5 7021-8 ####[facility] LABORATORYCLIA [id number] [address] LABCLIA [id number] [address] [place] MCHC (RBC) [Mass/Vol] 30.4 g/dL Low 30.5-36.0 [facility] Comment on above: Order Comment: Speci men Type: BLOOD SPECIMENOrdering Facility: [facility] Address: [address] [place] [address] Performed By: #### 5 7021-8 ####[facility] LABORATORYCLIA [id number] [address] [facility] LABCLIA [id number] [address] [place] [address] [place] MCV (RBC) [Entitic vol] 93.8 fL Normal 80.0-100.0 [facility] Comment on above: Order Comment: Speci men Type: BLOOD SPECIMENOrdering Facility: [facility] Address: [address] [place] [address] Performed By: #### 5 7021-8 ####[facility] LABORATORYCLIA [id number] [address] LABCLIA [id number] [address], [place] [address] [place] Monocytes (Bld) [#/Vol] 0.27 10*3/uL Normal <0.87 [facility] Comment on above: Order Comment: Speci men Type: BLOOD SPECIMENOrdering Facility: [facility] Address: [address] [place] [address] Performed By: #### 5 7021-8 ####[facility] LABORATORYCLIA [id number] [address] LABCLIA [id number] [address], [address] [place] Monocytes/100 WBC (Bld) 1.0 % Normal [facility] Comment on above: Order Comment: Speci men Type: BLOOD SPECIMENOrdering Facility: [facility] Address: [address] [place] [address] Performed By: #### 5 7021-8 ####[facility] LABORATORYCLIA [id number] [address] LABCLIA [id number] [address], [place] [address] [place] Neutrophils (Bld) [#/Vol] 6.56 10*3/uL Normal 1.45-7.50 [facility] Comment on above: Order Comment: Speci men Type: BLOOD SPECIMENOrdering Facility: [facility] Address: [address] [place] [address] Performed By: #### 5 7021-8 ####[facility] LABORATORYCLIA [id number] [address] LABCLIA [id number] [place] [address] [place] Neutrophils/100 WBC (Bld) 24.0 % Normal [facility] Comment on above: Order Comment: Speci men Type: BLOOD SPECIMENOrdering Facility: [facility] Address: [address] [place] [address] Performed By: #### 5 7021-8 ####[facility] LABORATORYCLIA [id number] [address] LABSHAWN [place] [id number] [place] [address] [place] Nucleated RBC (Bld) [#/Vol] 10*3/uL Normal <0.01 [facility] Comment on above: Order Comment: Speci men Type: BLOOD SPECIMENOrdering Facility: [facility] Address: [address] [place] [address] Performed By: #### 5 7021-8 ####[facility] LABORATORYCLIA [id number] [address] LABCLIA [id number] [place] [address] [place] Nucleated RBC/100 WBC (Bld) [Ratio] 0.0 /100 WBC Normal [facility] Comment on above: Order Comment: Speci men Type: BLOOD SPECIMENOrdering Facility: [facility] Address: [address] [place] [address] Performed By: #### 5 7021-8 ####[facility] LABORATORYCLIA [id number] [address] LABCLIA [id number] [place] [address] [place] Platelet mean volume (Bld) [Entitic vol] 9.3 fL Normal 9.0-12.7 [facility] Comment on above: Order Comment: Speci men Type: BLOOD SPECIMENOrdering Facility: [facility] Address: [address] [place] [address] Performed By: #### 5 7021-8 ####[facility] LABORATORYCLIA [id number] [place] [address] [place] [facility] LABCLIA [id number] [place] [address] [place] Platelets (Bld) [#/Vol] 299 10*3/uL Normal 150-400 [facility] Comment on above: Order Comment: Speci men Type: BLOOD SPECIMENOrdering Facility: [facility] Address: [address] [place] [address] Performed By: #### 5 7021-8 ####[facility] LABORATORYCLIA [id number] [place] [address] [place] [facility] LABCLIA [id number] [place] [address] [place] Platelets Estimate (Bld) [#/Vol] Adequate Normal [facility] Comment on above: Order Comment: Speci men Type: BLOOD SPECIMENOrdering Facility: [facility] Address: [address] [place] [address] Performed By: #### 5 7021-8 ####[facility] LABORATORYCLIA [id number] [place] [address] [place] [facility] LABCLIA [id number] [place] [address] [place] RBC (Bld) [#/Vol] 3.68 10*6/uL Low 4.20-6.00 [facility] Comment on above: Order Comment: Speci men Type: BLOOD SPECIMENOrdering Facility: [facility] Address: [address] [place] [address] Performed By: #### 5 7021-8 ####[facility] LABORATORYCLIA [id number] [address] LABCLIA [id number] [place] [address] [place] RED CELL MORPH Reviewed: see result s of individual morphologies Normal [facility] Comment on above: Order Comment: Speci men Type: BLOOD SPECIMENOrdering Facility: [facility] Address: [address] [place] [address] Performed By: #### 5 7021-8 ####[facility] LABORATORYCLIA [id number] [address] LABCLIA [id number] [place] [address] [place] WBC (Bld) [#/Vol] 27.33 10*3/uL High 3.70-11.00 [facility] Comment on above: Order Comment: Speci men Type: BLOOD SPECIMENOrdering Facility: [facility] Address: [address] [place] [address] Performed By: #### 5 7021-8 ####[facility] LABORATORYCLIA [id number] [address] LABCLIA [id number] [place] [address] [place] Comprehensive metabolic 2000 panelon 02-23-2025 Albumin [Mass/Vol] 3.9 g/dL Normal 3.9-4.9 [facility] Comment on above: Order Comment: Speci men Type: BLOOD SPECIMENOrdering Facility: [facility] Address: [address] [place] [address] Performed By: #### 2 4323-8, 2777-1, 3084-1 ####[facility] LABORATORYCLIA [id number] [place] [address] [place] ALP [Catalytic activity/Vol] 104 U/L Normal 38-113 [facility] Comment on above: Order Comment: Speci men Type: BLOOD SPECIMENOrdering Facility: [facility] Address: [address] [place] [address] Performed By: #### 2 4323-8, 2777-1, 3084-1 ####[facility] LABORATORYCLIA [id number] [place] [address] [place] ALT [Catalytic activity/Vol] 32 U/L Normal 10-54 [facility] Comment on above: Order Comment: Speci men Type: BLOOD SPECIMENOrdering Facility: [facility] Address: [address] [place] [address] Performed By: #### 2 4323-8, 2777-1, 3084-1 ####[facility] HOSPITALIA [id number] [place] [address] [place] [facility] Anion gap [Moles/Vol] 18 mmol/L High 8-15 [facility] Comment on above: Order Comment: Speci men Type: BLOOD SPECIMENOrdering Facility: [facility] Address: [address] [place] [address] Performed By: #### 2 4323-8, 2777-1, 3084-1 ###[facility] LABORATORYIA [id number] [place] [address] [place] AST [Catalytic activity/Vol] 38 U/L Normal 14-40 [facility] Comment on above: Order Comment: Speci men Type: BLOOD SPECIMENOrdering Facility: [facility] Address: [address] [place] [address] Performed By: #### 2 4323-8, 2777-1, 3084-1 ####[facility] LABORATORYIA [id number] [place] [address] [place] Bilirubin [Mass/Vol] 0.4 mg/dL Normal 0.2-1.3 [facility] Comment on above: Order Comment: Speci men Type: BLOOD SPECIMENOrdering Facility: [facility] Address: [address] [place] [address] Performed By: #### 2 4323-8, 2777-, 308-1 ####[facility] LABORATORYCLIA [id number] [place] [address] [place] Calcium [Mass/Vol] 9.6 mg/dL Normal 8.5-10.2 [facility] Comment on above: Order Comment: Speci men Type: BLOOD SPECIMENOrdering Facility: [facility] Address: [address] [place] [address] Performed By: #### 2 4323-8, 277-, 308- ####[facility] LABORATORYCLIA [id number] [place] [address] [place] Chloride [Moles/Vol] 110 mmol/L High 98-107 [facility] Comment on above: Order Comment: Speci men Type: BLOOD SPECIMENOrdering Facility: [facility] Address: [address] [place] [address] Performed By: #### 2 4323-8, 277-, 308-1 ####[facility] LABORATORYIA [id number] [place] [address] [place] CO2 [Moles/Vol] 20 mmol/L Low 22-30 [facility] Comment on above: Order Comment: Speci men Type: BLOOD SPECIMENOrdering Facility: [facility] Address: [address] [place] [address] Performed By: #### 2 4323-8, 2777-1, 308-1 ####[facility] LABORATORYIA [id number] [place] [address] [place] Creatinine [Mass/Vol] 1.12 mg/dL Normal 0.73-1.22 [facility] Comment on above: Order Comment: Speci men Type: BLOOD SPECIMENOrdering Facility: [facility] Address: [address] [place] [address] Performed By: #### 2 4323-8, 2777-1, 3084-1 ####[facility] LABORATORYCLIA [id number] [place] [address] [place] eGFRcr SerPlBld CKD-EPI 2020 69 mL/min/1.73m??? Normal >=60 [facility] Comment on above: Order Comment: Demarco harris Type: BLOOD SPECIMENOrdering Facility: [facility] Address: [address] [place] [address] Result Comment: Nancy mated Glomerular Filtration Rate [...] actual GFR. Performed By: #### 2 4323-8, 2777-1, 308- ####SHANONSHIRLEY [facility] LABORATORYCLIA [id number] [place] [address] [place] Glucose [Mass/Vol] 178 mg/dL High 74-99 [facility] Comment on above: Order Comment: Demarco harris Type: BLOOD SPECIMENOrdering Facility: [facility] Address: [address] [place] [address] Result Comment: The [place] [employer] (ADA) provides guidance for cutoff [...] Standards of Medical Care in Diabetes 2016, [place] [employer]. Diabetes Care. 2016.39(Suppl 1). Performed By: #### 2 4323-8, 2776-1, 3083- ####[facility] LABORATORYCLIA [id number] [place] [address] [place] Potassium [Moles/Vol] 4.5 mmol/L Normal 3.7-5.1 [facility] Comment on above: Order Comment: Speci men Type: BLOOD SPECIMENOrdering Facility: [facility] Address: [address] [place] [address] Performed By: #### 2 4323-8, 2776-, 3083-06 ####SHANONSANAM [facility] LABORATORYCLIA [id number] [place] [address] [place] Protein [Mass/Vol] 6.7 g/dL Normal 6.3-8.0 [facility] Comment on above: Order Comment: Speci men Type: BLOOD SPECIMENOrdering Facility: [facility] Address: [address] [place] [address] Performed By: #### 2 4323-8, 2776-06, 3083-06 ####[facility]SHIRLEY [facility] H[facility]PITALIA [id number] [place] [address] [place] Sodium [Moles/Vol] 148 mmol/L High 136-144 [facility] Comment on above: Order Comment: Speci men Type: BLOOD SPECIMENOrdering Facility: [facility] Address: [address] [place], [place] [address] Performed By: #### 2 4323-8, 2776-06, 3083-06 ####SHANONSANAM [facility] LABORATORYIA [id number] [place] [address] [place] Urea nitrogen [Mass/Vol] 33 mg/dL High 9-24 [facility] Comment on above: Order Comment: Speci men Type: BLOOD SPECIMENOrdering Facility: [facility] Address: [address] [place] [address] Performed By: #### 2 4323-8, 277-, 3083-1 ####[facility] LABORATORYCLIA [id number] [place] [address] [place] Phosphate SerPl-mCncon 02-23 Phosphate [Mass/Vol] 3.9 mg/dL Normal 2.7-4.8 [facility] Comment on above: Order Comment: Speci men Type: BLOOD SPECIMENOrdering Facility: [facility] Address: [address] [place] [address] Performed By: #### 2 4323-8, 2777-1, 3084-1 ####[facility] LABORATORYCLIA [id number] [place] [address] [place] TYPE + SCREENon 02-23-2025 ABO A Normal [facility] Comment on above: Order Comment: Speci men Type: BLOOD SPECIMENOrdering Facility: [facility] Address: [address] [place] [address] Performed By: #### L [id number], TSCR, %MARYANN ####CC MAIN BLOOD BANKCLIA [id number] [place] [address] [place] Rh Nom (Bld) Positive Normal [facility] Comment on above: Order Comment: Speci men Type: BLOOD SPECIMENOrdering Facility: [facility] Address: [address] [place] [address] Performed By: #### L [id number], TSCR, %MARYANN ####CC MAIN BLOOD BANKCLIA [id number] [place] [address] [place] TYPE AND SCREEN EXPIRATION 02/26/2025 23:59 Normal [facility] Comment on above: Order Comment: Speci men Type: BLOOD SPECIMENOrdering Facility: [facility] Address: [address] [place] [address] Performed By: #### L [id number], TSCR, %MARYANN ####CC MAIN BLOOD BANKCLIA [id number] [place] [id number] [place] Urate SerPl-mCncon Urate [Mass/Vol] 4.8 mg/dL Normal 4.0-8.1 [facility] Comment on above: Order Comment: Speci men Type: BLOOD SPECIMENOrdering Facility: [facility] Address: [facility] [place] [address] Performed By: #### 2 4323-8, 2777-1, 3084-1 ####SHANONSWSHIRLEY [facility] LABORATORYCLIA [id number] [place] [address] [place] CNOVon 02-20-2025 CNOV Normal [facility] CNPNon 02-20-2025 CNPN Normal [facility] CNPNon 02-19-2025 CNPN Normal [facility] CNPNon 02-18-2025 CNPN Normal [facility] CNOVon 02-17-2025 CNOV Normal [facility] CNPTOUTREACHon 02-17-2025 CNPTOUTREACH Normal [facility] CNPTOUTREACHon 02-16-2025 CNPTOUTREACH Normal [facility] CNOVon 02-11-2025 CNOV Normal [facility] CNPNon 02-11-2025 CNPN Normal [facility] CNPTOUTREACHon 02-11-2025 CNPTOUTREACH Normal [facility] CNOVSPon 02-10-2025 CNOVSP Normal [facility] CNPNon 02-10-2025 CNPN Normal [facility] CNPTOUTREACHon 02-10-2025 CNPTOUTREACH Normal [facility] Glucose (BldC) [Mass/Vol]on 02-08-2025 Glucose [Moles/Vol] 127 mmol/L Invalid Interpretation Code [employer] Work Phone: Glucose (BldC) [Mass/Vol]on 02-07-2025 Glucose [Moles/Vol] 88 mmol/L Invalid Interpretation Code [employer] Work Phone: Glucose [Moles/Vol] 112 mmol/L Invalid Interpretation Code [employer] Work Phone: Glucose [Moles/Vol] 108 mmol/L Invalid Interpretation Code [employer] Work Phone: Glucose [Moles/Vol] 118 mmol/L Invalid Interpretation Code [employer] Work Phone: BLOOD BANK COMMENTon 025 BLOOD BANK COMMENT See Comment Normal [facility] Comment on above: Order Comment: Speci men Type: BLOOD SPECIMENOrdering Facility: [facility] Address: [address] [place] [address] Result Comment: Anti body ID not required. Last Antibody ID performed on 01/24/2025 at [facility]. Performed By: #### T SCR, [id number] ####CC MAIN BLOOD BANKCLIA [id number] [place] [address] [place] CBC W Auto Differential pane l (Bld)on 02-06-2025 Basophils (Bld) [#/Vol] 10*3/uL Normal <0.11 [facility] Comment on above: Order Comment: Speci men Type: BLOOD SPECIMENOrdering Facility: [facility] Address: [address] [place] [address] Performed By: #### 5 7021-8 ####ZACK [facility] LABCLIA [id number] [place] [address] [place] Basophils/100 WBC (Bld) 0.2 % Normal C [facility] Comment on above: Order Comment: Speci men Type: BLOOD SPECIMENOrdering Facility: [facility] Address: [address] [place] [address] Performed By: #### 5 7021-8 ####ZACK [facility] LABCLIA [id number] [place] [address] [place] Differential cell count method Nom (Bld) Auto Normal [facility] Comment on above: Order Comment: Speci men Type: BLOOD SPECIMENOrdering Facility: [facility] Address: [address] [place] [address] Performed By: #### 5 7021-8 ####ZACK [facility] LABCLIA [id number] [place] [address] [place] Eosinophils (Bld) [#/Vol] 10*3/uL Normal <0.46 [facility] Comment on above: Order Comment: Speci men Type: BLOOD SPECIMENOrdering Facility: [facility] Address: [address] [place] [address] Performed By: #### 5 7021-8 ####CARLOSJOY [facility] LABCLIA [id number] [place] [address] [place] Eosinophils/100 WBC (Bld) 0.1 % Normal [facility] Comment on above: Order Comment: Speci men Type: BLOOD SPECIMENOrdering Facility: [facility] Address: [address] [place] [address] Performed By: #### 5 7021-8 ####ZACK [facility] LABCLIA [id number] [place] [address] [place] Erythrocyte distribution width (RBC) [Ratio] 15.7 % High 11.5-15.0 [facility] Comment on above: Order Comment: Speci men Type: BLOOD SPECIMENOrdering Facility: [facility] Address: [address] [place] [address] Performed By: #### 5 7021-8 ####ZACK [facility] LABCLIA [id number] [place] [address] [place] Hematocrit (Bld) [Volume fraction] 30.9 % Low 39.0-51.0 [facility] Comment on above: Order Comment: Speci men Type: BLOOD SPECIMENOrdering Facility: [facility] Address: [address] [place] [address] Performed By: #### 5 7021-8 ####ZCAK [facility] LABCLIA [id number] [place] [address] [place] Hemoglobin (Bld) [Mass/Vol] 9.6 g/dL Low 13.0-17.0 [facility] Comment on above: Order Comment: Speci men Type: BLOOD SPECIMENOrdering Facility: [facility] Address: [address] [place] [address] Performed By: #### 5 7021-8 ####ZACK [facility] LABCLIA [id number] [address] [place] Immature granulocytes (Bld) [#/Vol] 0.05 10*3/uL Normal <0.10 [facility] Comment on above: Order Comment: Speci men Type: BLOOD SPECIMENOrdering Facility: [facility] Address: [address] [place] [address] Performed By: #### 5 7021-8 ####ZACK [facility] LABCLIA [id number] [address] OF [facility] Immature granulocytes/100 WBC (Bld) 0.6 % Normal [facility] Comment on above: Order Comment: Speci men Type: BLOOD SPECIMENOrdering Facility: [facility] Address: [address] [place] [address] Performed By: #### 5 7021-8 ####ZACK [facility] LABCLIA [id number] [address] Lymphocytes (Bld) [#/Vol] 2.26 10*3/uL Normal 1.00-4.00 [facility] Comment on above: Order Comment: Speci men Type: BLOOD SPECIMENOrdering Facility: [facility] Address: [address] [place] [address] Performed By: #### 5 7021-8 ####ZACK [facility] LABCLIA [id number] [address] [place] Lymphocytes/100 WBC (Bld) 26.1 % Normal [facility] Comment on above: Order Comment: Speci men Type: BLOOD SPECIMENOrdering Facility: [facility] Address: [address] [place] [address] Performed By: #### 5 7021-8 ####ZACK [facility] LABCLIA [id number] [place] [address] [place] MCH (RBC) [Entitic mass] 28.2 pg Normal 26.0-34.0 [facility] Comment on above: Order Comment: Speci men Type: BLOOD SPECIMENOrdering Facility: [facility] Address: [address] [place] [address] Performed By: #### 5 7021-8 ####EYADBRAD [facility] LABCLIA [id number] [address] STATES [place] MCHC (RBC) [Mass/Vol] 31.1 g/dL Normal 30.5-36.0 [facility] Comment on above: Order Comment: Speci men Type: BLOOD SPECIMENOrdering Facility: [facility] Address: [address] [place] [address] Performed By: #### 5 7021-8 ####ZACK [facility] LABCLIA [id number] [place] [address] [place] MCV (RBC) [Entitic vol] 90.6 fL Normal 80.0-100.0 C [facility] Comment on above: Order Comment: Speci men Type: BLOOD SPECIMENOrdering Facility: [facility] Address: [address] [place] [address] Performed By: #### 5 7021-8 ####ZACK [facility] LABCLIA [id number] [place] [address] [place] Monocytes (Bld) [#/Vol] 0.45 10*3/uL Normal <0.87 [facility] Comment on above: Order Comment: Speci men Type: BLOOD SPECIMENOrdering Facility: [facility] Address: [address] [place] [address] Performed By: #### 5 7021-8 ####CARLOSJOY [facility] LABCLIA [id number] [address] [place] Monocytes/100 WBC (Bld) 5.2 % Normal C [facility] Comment on above: Order Comment: Speci men Type: BLOOD SPECIMENOrdering Facility: [facility] Address: [address] [place] [address] Performed By: #### 5 7021-8 ####ZACK [facility] LABCLIA [id number] [place] [address] [place] Neutrophils (Bld) [#/Vol] 5.88 10*3/uL Normal 1.45-7.50 [facility] Comment on above: Order Comment: Speci men Type: BLOOD SPECIMENOrdering Facility: [facility] Address: [address] [place] [address] Performed By: #### 5 7021-8 ####ZACK [facility] LABCLIA [id number] [place] [address] [place] Neutrophils/100 WBC (Bld) 67.8 % Normal [facility] Comment on above: Order Comment: Speci men Type: BLOOD SPECIMENOrdering Facility: [facility] Address: [address] [place] [address] Performed By: #### 5 7021-8 ####ZACK [facility] LABCLIA [id number] [place] [address] [place] Nucleated RBC (Bld) [#/Vol] 10*3/uL Normal <0.01 [facility] Comment on above: Order Comment: Speci men Type: BLOOD SPECIMENOrdering Facility: [facility] Address: [address] [place] [address] Performed By: #### 5 7021-8 ####ZACK [facility] LABCLIA [id number] [place] [id number] [place] Nucleated RBC/100 WBC (Bld) [Ratio] 0.0 /100 WBC Normal [facility] Comment on above: Order Comment: Speci men Type: BLOOD SPECIMENOrdering Facility: [facility] Address: [address] [place] [address] Performed By: #### 5 7021-8 ####ZACK [facility] LABCLIA [id number] [place] [id number] [place] Platelet mean volume (Bld) [Entitic vol] 8.9 fL Low 9.0-12.7 [facility] Comment on above: Order Comment: Speci men Type: BLOOD SPECIMENOrdering Facility: [facility] Address: [address] [place] [address] Performed By: #### 5 7021-8 ####STRONGBRAD [facility] LABCLIA [id number] [place] [id number] [facility] [place] Platelets (Bld) [#/Vol] 276 10*3/uL Normal 150-400 [facility] Comment on above: Order Comment: Speci men Type: BLOOD SPECIMENOrdering Facility: [facility] Address: [address] [place] [address] Performed By: #### 5 7021-8 ####ZACK [facility] LABCLIA [id number] [place] [id number] [place] RBC (Bld) [#/Vol] 3.41 10*6/uL Low 4.20-6.00 [facility] Comment on above: Order Comment: Speci men Type: BLOOD SPECIMENOrdering Facility: [facility] Address: [address] [place] [address] Performed By: #### 5 7021-8 ####STRONGBRAD [facility] LABIA [id number] [place] [id number] [facility] [place] WBC (Bld) [#/Vol] 8.67 10*3/uL Normal 3.70-11.00 [facility] Comment on above: Order Comment: Speci men Type: BLOOD SPECIMENOrdering Facility: [facility] Address: [address] [place] [address] Performed By: #### 5 7021-8 ####STRONGAmanuelVILLE [facility] LABCLIA [id number] [place] [id number] [place] CNOVSPon 02-06-2025 CNOVSP Normal [facility] MAE DIRECTon 02-06-2025 DAGT, ANTI-C3B,C3D Positive Normal [facility] Comment on above: Order Comment: Speci men Type: BLOOD SPECIMENOrdering Facility: [facility] Address: [address], [place] [address] Performed By: #### D AGT ####CC MAIN BLOOD BANKCLIA [id number] [place] [address] [place] DAGT, ANTI-IGG Positive Normal [facility] Comment on above: Order Comment: Speci men Type: BLOOD SPECIMENOrdering Facility: [facility] Address: [address] [place] [address] Performed By: #### D AGT ####CC MAIN BLOOD BANKCLIA [id number] [place] [address] [place] DAGT, POLYSPECIFIC AHG Negative Normal [place] Comment on above: Order Comment: Speci men Type: BLOOD SPECIMENOrdering Facility: [facility] Address: [address] [place] [address] Performed By: #### D AGT ####CC [facility] BLOOD BANKIA [id number] [place] [address] [place] Comprehensive metabolic 2000 panelon 02-06-2025 Albumin [Mass/Vol] 3.2 g/dL Low 3.9-4.9 [facility] Comment on above: Order Comment: Speci men Type: BLOOD SPECIMENOrdering Facility: [facility] Address: [address] [place] [address] Performed By: #### 2 4323-8, 4542-7, 2777-1, 3084-1 ####[facility] LABIA [id number] [place] [address] [place] ALP [Catalytic activity/Vol] 107 U/L Normal 38-113 [facility] Comment on above: Order Comment: Speci men Type: BLOOD SPECIMENOrdering Facility: [facility] Address: [address] [place] [address] Performed By: #### 2 4323-8, 4542-7, 2777-1, 3084-1 ####[facility] LABCLIA [id number] [place] [address] [place] ALT [Catalytic activity/Vol] 15 U/L Normal 10-54 [facility] Comment on above: Order Comment: Speci men Type: BLOOD SPECIMENOrdering Facility: [facility] Address: [address] [place], [place] [address] Performed By: #### 2 4323-8, 4542-7, 2777-1, 3084-1 ####[facility] LABCLIA [id number] [place] [id number] [place] Anion gap [Moles/Vol] 17 mmol/L High 8-15 [facility] Comment on above: Order Comment: Speci men Type: BLOOD SPECIMENOrdering Facility: [facility] Address: [address] [place] [address] Performed By: #### 2 4323-8, 4542-7, 2777-1, 3084-1 ####[facility] LABCLIA [id number] [place] [address] [place] AST [Catalytic activity/Vol] 16 U/L Normal 14-40 [facility] Comment on above: Order Comment: Speci men Type: BLOOD SPECIMENOrdering Facility: [facility] Address: [address] [place] [address] Performed By: #### 2 4323-8, 4542-7, 2777-1, 3084-1 ####[facility] LABCLIA [id number] [place] [address] [place] Bilirubin [Mass/Vol] 0.4 mg/dL Normal 0.2-1.3 [facility] Comment on above: Order Comment: Speci men Type: BLOOD SPECIMENOrdering Facility: [facility] Address: [address] [place] [address] Performed By: #### 2 4323-8, 4542-7, 2777-1, 3084-1 ####[facility] LABCLIA [id number] [place] [id number] [place] Calcium [Mass/Vol] 8.7 mg/dL Normal 8.5-10.2 [facility] Comment on above: Order Comment: Speci men Type: BLOOD SPECIMENOrdering Facility: [facility] Address: [address] [place] [address] Performed By: #### 2 4323-8, 4542-7, 2777-1, 3084-1 ####[facility] LABCLIA [id number] [place] [id number] [place] Chloride [Moles/Vol] 101 mmol/L Normal 98-107 [facility] Comment on above: Order Comment: Speci men Type: BLOOD SPECIMENOrdering Facility: [facility] Address: [address] [place] [address] Performed By: #### 2 4323-8, 4542-7, 2777-1, 3084-1 ####[facility] LABCLIA [id number] [place] [address] [place] CO2 [Moles/Vol] 19 mmol/L Low 22-30 [facility] Comment on above: Order Comment: Speci men Type: BLOOD SPECIMENOrdering Facility: [facility] Address: [address] [place] [address] Performed By: #### 2 4323-8, 4542-7, 2777-1, 3084-1 ####[facility] LABCLIA [id number] [place] [id number] [place] Creatinine [Mass/Vol] 1.11 mg/dL Normal 0.73-1.22 [facility] Comment on above: Order Comment: Speci men Type: BLOOD SPECIMENOrdering Facility: [facility] Address: [address] [place] [address] Performed By: #### 2 4323-8, 4542-7, 2777-1, 3084-1 ####[facility] LABCLIA [id number] [place] [id number] [place] eGFRcr SerPlBld CKD-EPI 2020 69 mL/min/1.73m??? Normal >=60 [facility] Comment on above: Order Comment: Demarco harris Type: BLOOD SPECIMENOrdering Facility: [facility] Address: [address] [place] [address] Result Comment: Nancy mated Glomerular Filtration Rate [...] GFR. Performed By: #### 2 4323-8, 4542-7, 7-1, 308-1 ####[facility] LABCLIA [id number] [place] [address] [place] Glucose [Mass/Vol] 250 mg/dL High 74-99 [facility] Comment on above: Order Comment: Demarco harris Type: BLOOD SPECIMENOrdering Facility: [facility] Address: [address] [place] [address] Result Comment: The [place] [employer] (ADA) provides guidance for cutoff [...] Standards of Medical Care in Diabetes 2016, [place] [employer]. Diabetes Care. 2016.39(Suppl 1). Performed By: #### 2 4323-8, 4542-7, 2777-1, 3084-1 ####[facility] LABCLIA [id number] [address] [address] [place] Potassium [Moles/Vol] 5.1 mmol/L Normal 3.7-5.1 [facility] Comment on above: Order Comment: Speci men Type: BLOOD SPECIMENOrdering Facility: [facility] Address: [address] [place] [address] Performed By: #### 2 4323-8, 4542-7, 2777-1, 3084-1 ####[facility] LABCLIA [id number] [facility] [address], [facility] [place] Protein [Mass/Vol] 6.2 g/dL Low 6.3-8.0 [facility] Comment on above: Order Comment: Speci men Type: BLOOD SPECIMENOrdering Facility: [facility] Address: [address] [place] [address] Performed By: #### 2 4323-8, 4542-7, 2777-1, 3084-1 ####[facility] LABCLIA [id number] [address], [facility] [place] Sodium [Moles/Vol] 137 mmol/L Normal 136-144 [facility] Comment on above: Order Comment: Speci men Type: BLOOD SPECIMENOrdering Facility: [facility] Address: [address] [place] [address] Performed By: #### 2 4323-8, 4542-7, 2777-1, 3084-1 ####[facility] LABCLIA [id number] [address], [facility] [place] Urea nitrogen [Mass/Vol] 22 mg/dL Normal 9-24 [facility] Comment on above: Order Comment: Speci men Type: BLOOD SPECIMENOrdering Facility: [facility] Address: [address] [place] [address] Performed By: #### 2 4323-8, 4542-7, 2777-1, 3084-1 ####[facility] LABCLIA [id number] [facility] [address] [place] [address] [place] Glucose (BldC) [Mass/Vol]on 02-06-2025 Glucose [Moles/Vol] 130 mmol/L Invalid Interpretation Code Carrillo Hutchison Work Phone: Glucose [Moles/Vol] 144 mmol/L Invalid Interpretation Code Carrillo Hutchison Work Phone: Glucose [Moles/Vol] 112 mmol/L Invalid Interpretation Code Carrillo Hutchison Work Phone: Haptoglob SerPl-mCncon 02-06 Haptoglobin [Mass/Vol] 277 mg/dL High 31-238 [place] Comment on above: Order Comment: Speci men Type: BLOOD SPECIMENOrdering Facility: [facility] Address: [address] [place] [address] Performed By: #### 2 4323-8, 4542-7, 2777-1, 3084-1 ####[facility] LABCLIA [id number] [place] [address] [place] LDH SerPl-cCncon 02-06-2025 LDH [Catalytic activity/Vol] 327 U/L High 135-225 [facility] Comment on above: Order Comment: Speci men Type: BLOOD SPECIMENOrdering Facility: [facility] Address: [address] [place] [address] Performed By: #### 2 532-0 ####[facility] LABIA [id number] [place] [address] [place] Phosphate SerPl-mCncon 02-06 Phosphate [Mass/Vol] 3.5 mg/dL Normal 2.7-4.8 [facility] Comment on above: Order Comment: Speci men Type: BLOOD SPECIMENOrdering Facility: [facility] Address: [address] [place] [address] Performed By: #### 2 4323-8, 4542-7, 2777-1, 3084-1 ####[facility] LABCLIA [id number] [place] [address] [place] TYPE + SCREENon 02-06-2025 ABO A Normal [facility] Comment on above: Order Comment: Speci men Type: BLOOD SPECIMENOrdering Facility: [facility] Address: [address] [place] [address] Performed By: #### T SCR, [id number] ####[facility] BLOOD BANKCLIA [id number] [address] [address] [place] Rh Nom (Bld) Positive Normal [facility] Comment on above: Order Comment: Speci men Type: BLOOD SPECIMENOrdering Facility: [facility] Address: [address] [place] [address] Performed By: #### T SCR, [id number] ####[facility] BLOOD BANKCLIA [id number] [place] [address] [place] TYPE AND SCREEN EXPIRATION 02/09/2025 23:59 Normal [facility] Comment on above: Order Comment: Speci men Type: BLOOD SPECIMENOrdering Facility: [facility] Address: [address] [place] [address] Performed By: #### T SCR, [id number] ####[facility] BLOOD BANKCLIA [id number] [place] [address] [place] Urate SerPl-mCncon Urate [Mass/Vol] 4.6 mg/dL Normal 4.0-8.1 [facility] Comment on above: Order Comment: Speci men Type: BLOOD SPECIMENOrdering Facility: [facility] Address: [address] [place] [address] Performed By: #### 2 4323-8, 4542-7, 2777-1, 3084-1 ####[facility] LABCLIA [id number] [place] [id number] [place] Glucose (BldC) [Mass/Vol]on 02-05-2025 Glucose [Moles/Vol] 135 mmol/L Invalid Interpretation Code Carrillo Hutchison Work Phone: Glucose [Moles/Vol] 130 mmol/L Invalid Interpretation Code Carrillo Hutchison Work Phone: Glucose [Moles/Vol] 176 mmol/L Invalid Interpretation Code Carrillo Simmonsa Work Phone: Glucose [Moles/Vol] 119 mmol/L Invalid Interpretation Code Little Browningnancy Hutchison Work Phone: Glucose (BldC) [Mass/Vol]on 02-04-2025 Glucose [Moles/Vol] 117 mmol/L Invalid Interpretation Code Carrillo Simmonsa Work Phone: Glucose [Moles/Vol] 110 mmol/L Invalid Interpretation Code Carrillo Simmonsa Work Phone: Glucose [Moles/Vol] 192 mmol/L Invalid Interpretation Code Carrillo Hutchison Work Phone: Glucose [Moles/Vol] 120 mmol/L Invalid Interpretation Code [facility] Browningnancy Hutchison Work Phone: HISTORY PHYSICALon HISTORY PHYSICAL HNO ID: [id number] Author: ADRIANA PETTIT MD Service: ? Author [...] therapy. PT/OT recommended patient would benefit from care home facility. Patient also did have history of [...] No masses (more content not included)... Normal [facility] Glucose (dC) [Mass/Vol]on 02-03-2025 Glucose [Moles/Vol] 236 mmol/L Invalid Interpretation Code [employer] Work Phone: Glucose [Moles/Vol] 248 mmol/L Invalid Interpretation Code [facility] Work Phone: Glucose [Moles/Vol] 263 mmol/L Invalid Interpretation Code [place] [employer] Work Phone: Glucose [Moles/Vol] 125 mmol/L Invalid Interpretation Code [place] Hutchison Work Phone: BASICMETAon 02-02-2025 Calcium [Mass/Vol] 8.2 mg/dL Low 8.7-10.4 [facility] Comment on above: Performed By: #### 1 30687, 510767, 851643 #### [facility] [address] [place] [address] Outside Sales Executive: Simba Obrien MD Chloride [Moles/Vol] 107 mmol/L Normal 98-107 [facility] Comment on above: Performed By: #### 1 27545, 712963, 726669 #### [facility] [address] [place] [address] Outside Sales Executive: Simba Obrien MD CO2 [Moles/Vol] 26.0 mmol/L Normal 20.0-31.0 [facility] Comment on above: Performed By: #### 1 02837, 179435, 648335 #### [facility] [address] [place] [address] Outside Sales Executive: Simba Obrien MD Creatinine [Mass/Vol] 0.9 mg/dL Normal 0.6-1.1 [facility] Comment on above: Performed By: #### 1 35612, 909916, 823940 #### [facility] [address] [place] [address] Outside Sales Executive: Simba Obrien MD GFR AA >60 Normal [facility] Comment on above: Result Comment: Afri can Afghan GFR Calc Medical judgement is necessary to [...] MDRD GFR equation Performed By: #### 1 95185, 912375, 386727 #### [facility] [address] [place] [address] Outside Sales Executive: Simba Obrien MD Glomerular Filtration Rate >60 Normal [facility] Comment on above: Result Comment: Non- GFR [...] GFR equation Performed By: #### 1 , 093193, 781399 #### [facility] [address] [place] [address] Outside Sales Executive: Simba Obrien MD Glucose [Mass/Vol] 75 mg/dL Normal 74-106 [facility] Comment on above: Performed By: #### 1 , 363041, 261590 #### [facility] [address] [place] [address] Outside Sales Executive: Simba Obrien MD Osmolality [Osmolality] 280 mosm/kg Normal 275-295 [facility] Comment on above: Performed By: #### 1 , 616032, 380049 #### [facility] [address] [place] [address] Outside Sales Executive: Simba Obrien MD Potassium [Moles/Vol] 3.6 mmol/L Normal 3.5-5.1 [facility] Comment on above: Performed By: #### 1 , 988097, 400724 #### [facility] [address] [place] [address] Outside Sales Executive: Simba Obrien MD Sodium [Moles/Vol] 141 mmol/L Normal 135-145 [facility] Comment on above: Performed By: #### 1 , 133515, 250797 #### [facility] [address] [place] [address] Outside Sales Executive: Simba Obrien MD Urea nitrogen [Mass/Vol] 14 mg/dL Normal 9-23 [facility] Comment on above: Result Comment: - Ve nipuncture should occur prior to N-Acetyl Cysteine (NAC) or Metamizole (Sulpyrine) administration due to the potential for falsely depressed results. - Blood samples from some patients with monoclonal gammopathies may produce falsely elevated results Performed By: #### 1 , 112054, 711071 #### [facility] [address] [place] [address] Outside Sales Executive: Simba Obrien MD Urea nitrogen/Creatinine [Mass ratio] 15.6 mg/mg Normal [facility] Comment on above: Performed By: #### 1 92653, 804966, 741492 #### [facility] [address] [place] [address] Outside Sales Executive: Simba Obrien MD CBCNDon 02-02-2025 Erythrocyte distribution width (RBC) [Ratio] 16.7 % High 11.5-14.5 [facility] Comment on above: Performed By: #### 5 [id number] #### [facility] [address] [place] [address] Outside Sales Executive: Simba Obrien MD Hematocrit (Bld) [Volume fraction] 27.8 % Low 41.0-52.0 [facility] Comment on above: Performed By: #### 5 [id number] #### [facility] [address] [place] [address] Outside Sales Executive: Simba Obrien MD Hemoglobin (Bld) [Mass/Vol] 9.1 g/dL Low 13.5-17.5 [facility] Comment on above: Performed By: #### 5 [id number] #### [facility] [address] [place] [address] Outside Sales Executive: Simba Obrien MD Instr WBC ND 5.3 Normal [facility] Comment on above: Performed By: #### 5 [id number] #### [facility] [address] [place] [address] Outside Sales Executive: Simba Obrien MD MCH (RBC) [Entitic mass] 28.4 pg Normal 27.0-34.0 [facility] Comment on above: Performed By: #### 5 [id number] #### [facility] [address] [place] [address] Outside Sales Executive: Simba Obrien MD MCHC (RBC) [Mass/Vol] 32.7 g/dL Normal 32.0-37.0 [facility] Comment on above: Performed By: #### 5 [id number] #### [facility] [address] [place] [address] Outside Sales Executive: Simba Obrien MD MCV (RBC) [Entitic vol] 86.9 fL Normal 80.0-100.0 [facility] Comment on above: Performed By: #### 5 [id number] #### [facility] [address] [place] [address] Outside Sales Executive: Simba Obrien MD Platelet 317 x10 Normal 150-450 [facility] Comment on above: Performed By: #### 5 [id number] #### [facility] [address] [place], [place] [address] Outside Sales Executive: Simba Obrien MD Platelet mean volume (Bld) [Entitic vol] 6.5 fL Low 7.4-10.4 [facility] Comment on above: Performed By: #### 5 [id number] #### [facility] [address] [place] [address] Outside Sales Executive: Simba Obrien MD RBC 3.21 x10 Low 4.70-6.10 [facility] Comment on above: Result Comment: Note : RBC morphology is normal unless otherwise stated. Evaluation performed only if differential is requested. Performed By: #### 5 [id number] #### [facility] [address] [place] [address] Outside Sales Executive: Simba Obrien MD WBC 5.3 x10 Normal 4.5-11.0 [facility] Comment on above: Performed By: #### 5 [id number] #### [facility] [address] [place] [address] Outside Sales Executive: Simba Obrien MD Glucose (BldC) [Mass/Vol]on 02-02-2025 Glucose [Moles/Vol] 231 mmol/L Invalid Interpretation Code Carrillo Hutchison Work Phone: Glucose [Moles/Vol] 240 mmol/L Invalid Interpretation Code Carrillo Hutchison Work Phone: Glucose [Moles/Vol] 189 mmol/L Invalid Interpretation Code Carrillo Hutchison Work Phone: Glucose [Moles/Vol] 99 mmol/L Invalid Interpretation Code Carrillo Hutchison Work Phone: Glucose (BldC) [Mass/Vol]on 02-01-2025 Glucose [Moles/Vol] 158 mmol/L Invalid Interpretation Code Carrillo Hutchison Work Phone: Glucose [Moles/Vol] 124 mmol/L Invalid Interpretation Code Carrillo Hutchison Work Phone: Glucose [Moles/Vol] 111 mmol/L Invalid Interpretation Code Carrillo Hutchison Work Phone: Glucose [Moles/Vol] 115 mmol/L Invalid Interpretation Code Carrillo Hutchison Work Phone: Glucose (BldC) [Mass/Vol]on 01-31-2025 [...] Hutchison Work Phone: CNPTOUTREACHon 01-29-2025 CNPTOUTREACH Normal [facility] Glucose (BldC) [Mass/Vol]on 01-29-2025 Glucose [Moles/Vol] 293 mmol/L Invalid Interpretation Code Carrillo Simmonsa Work Phone: Glucose [Moles/Vol] 295 mmol/L Invalid Interpretation Code Carrillo Simmonsa Work Phone: Glucose [Moles/Vol] 216 mmol/L Invalid Interpretation Code Carrillo Simmonsa Work Phone: Glucose [Moles/Vol] 157 mmol/L Invalid Interpretation Code Carrillo Simmonsa Work Phone: CASE MANAGEMon 01-28-2025 CASE MANAGEM [facility] CNCOon 01-28-2025 CNCO Letter Text [facility] CNDSon 01-28-2025 CNDS [facility] CONSULT PROGon 01-28-2025 CONSULT PROG [facility] Glucose (BldC) [Mass/Vol]on 01-28-2025 Glucose [Moles/Vol] 210 mmol/L Invalid Interpretation Code Carrillo Hutchison Work Phone: Glucose [Moles/Vol] 221 mmol/L Invalid Interpretation Code Carrillo Hutchison Work Phone: [facility]EMon [facility]-27[facility] CNOVSPon 01-27-2025 CNOVSP Normal [facility] CONSULTon 01-27-2025 CONSULT [facility] CONSULT [facility] CONSULT PROGon 01-27-2025 CONSULT PROG [facility] THERAPY NTon 01-27-2025 THERAPY NT [facility] ALLIED HEALTHon 01-26-2025 ALLIED HEALTH [facility] Basic metabolic 2000 panelon 01-26-2025 Anion gap [Moles/Vol] 10 mmol/L Normal 8-15 [facility] Comment on above: Order Comment: Speci men Type: BLOOD SPECIMENOrdering Facility: [facility] Address: [address] [place] [address] Performed By: #### 2 4321-2, 96171-7, 03730-9, 7-1 ####[facility]ATORYCLIA [id number] [place] [address] [place] Calcium [Mass/Vol] 7.9 mg/dL Low 8.5-10.2 [facility] Comment on above: Order Comment: Speci men Type: BLOOD SPECIMENOrdering Facility: [facility] Address: [address] [place] [address] Performed By: #### 2 4321-2, 82282-0, 64142-9, 2776-1 ####[facility] LABORATORYCLIA [id number] [place] [address] [place] Chloride [Moles/Vol] 109 mmol/L High 98-107 [facility] Comment on above: Order Comment: Speci men Type: BLOOD SPECIMENOrdering Facility: [facility] Address: [address] [place] [address] Performed By: #### 2 4321-2, 76525-5, , 2776-1 ####[facility] LABORATORYCLIA [id number] [place] [address] [place] CO2 [Moles/Vol] 21 mmol/L Low 22-30 [facility] Comment on above: Order Comment: Speci men Type: BLOOD SPECIMENOrdering Facility: [facility] Address: [address] [place] [address] Performed By: #### 2 4321-2, 13473-3, 56382-0, 2776-1 ####[facility] LABORATORYCLIA [id number] [place] [id number] [place] Creatinine [Mass/Vol] 1.09 mg/dL Normal 0.73-1.22 [facility] Comment on above: Order Comment: Speci men Type: BLOOD SPECIMENOrdering Facility: [facility] Address: [address] [place] [address] Performed By: #### 2 4321-2, 34002-6, 09970-7, 7-1 ####[facility] LABORATORYCLIA [id number] [place] [id number] [place] eGFRcr SerPlBld CKD-EPI 2020 71 mL/min/1.73m??? Normal >=60 [facility] Comment on above: Order Comment: Demarco harris Type: BLOOD SPECIMENOrdering Facility: [facility] Address: [address] [place] [address] Result Comment: Nancy mated Glomerular Filtration Rate [...] actual GFR. Performed By: #### 2 4321-2, 92824-4, , 2776-06 ####[facility] LABORATORYCLIA [id number] [place] [address] [place] Glucose [Mass/Vol] 229 mg/dL High 74-99 [facility] Comment on above: Order Comment: Demarco harris Type: BLOOD SPECIMENOrdering Facility: [facility] Address: [address] [place] [address] Result Comment: The [place] Diabetes [employer] (ADA) provides guidance for cutoff [...] Standards of Medical Care in Diabetes 2016, [place] [employer]. Diabetes Care. 2016.39(Suppl 1). Performed By: #### 2 4321-2, 74143-3, , 2776-06 ####[facility] LABORATORYCLIA [id number] [place] [id number] [place] Potassium [Moles/Vol] 4.4 mmol/L Normal 3.7-5.1 [facility] Comment on above: Order Comment: Speci men Type: BLOOD SPECIMENOrdering Facility: [facility] Address: [address] [place] [address] Performed By: #### 2 4321-2, 74284-8, 01228-0, 2776- ####[facility] LABORATORYCLIA [id number] [place] [address] [place] Sodium [Moles/Vol] 140 mmol/L Normal 136-144 [facility] Comment on above: Order Comment: Speci men Type: BLOOD SPECIMENOrdering Facility: [facility] Address: [address] [place] [address] Performed By: #### 2 4321-2, 79235-6, 46608-7, 2776-06 ####[facility] LABORATORYCLIA [id number] [place] [address] [place] Urea nitrogen [Mass/Vol] 14 mg/dL Normal 9-24 [facility] Comment on above: Order Comment: Speci men Type: BLOOD SPECIMENOrdering Facility: [facility] Address: [address] [place] [address] Performed By: #### 2 4321-2, 20990-1, , 2776-06 ####[facility] LABORATORYCLIA [id number] [address] [place] CASE MANAGEMon 01-26-2025 CASE MANAGEM Normal [facility] CASE MANAGEM Normal [facility] CBC W Auto Differential pane l (Bld)on 01-26-2025 Basophils (Bld) [#/Vol] 10*3/uL Normal <0.[address] [facility] Comment on above: Order Comment: Speci men Type: BLOOD SPECIMENOrdering Facility: [facility] Address: [address] [place] [address] Performed By: #### 5 7021-8 ####[facility] LABORATORYCLIA [id number] [place] [address] [place]#### 86681-9 ####[facility] LABCLIA [id number] [place] [address] [place] Basophils/100 WBC (Bld) 0.2 % Normal [facility] Comment on above: Order Comment: Speci men Type: BLOOD SPECIMENOrdering Facility: [facility] Address: [address] [place] [address] Performed By: #### 5 7021-8 ####[facility] LABORATORYCLIA [id number] [place] [address] [place]#### 28978-4 ####[facility] LABCLIA [id number] [place] [address] [place] Differential cell count method Nom (Bld) Auto Normal [facility] Comment on above: Order Comment: Speci men Type: BLOOD SPECIMENOrdering Facility: [facility] Address: [address] [place] [address] Performed By: #### 5 7021-8 ####[facility] LABORATORYCLIA [id number] [place] [address] [place]#### 96586-8 ####[facility] LABCLIA [id number] [place] [address] [place] Eosinophils (Bld) [#/Vol] 10*3/uL Normal <0.46 [facility] Comment on above: Order Comment: Speci men Type: BLOOD SPECIMENOrdering Facility: [facility] Address: [address] [place] [address] Performed By: #### 5 7021-8 ####[facility] LABORATORYCLIA [id number] [place] [address] [place]#### 59061-9 ####[facility] LABCLIA [id number] [place] [address] [place] Eosinophils/100 WBC (Bld) 0.5 % Normal [facility] Comment on above: Order Comment: Speci men Type: BLOOD SPECIMENOrdering Facility: [facility] Address: [address] [place] [address] Performed By: #### 5 7021-8 ####[facility] LABORATORYCLIA [id number] [place] [address] [place]#### 28307-6 ####[facility] LABCLIA [id number] [place] [id number] [place] Erythrocyte distribution width (RBC) [Ratio] 15.7 % High 11.5-15.0 [facility] Comment on above: Order Comment: Speci men Type: BLOOD SPECIMENOrdering Facility: [facility] Address: [address] [place] [address] Performed By: #### 5 7021-8 ####[facility] LABORATORYCLIA [id number] [place] [address] [place]#### 77856-8 ####[facility] LABCLIA [id number] [place] [address] [place] Hematocrit (Bld) [Volume fraction] 26.7 % Low 39.0-51.0 [facility] Comment on above: Order Comment: Speci men Type: BLOOD SPECIMENOrdering Facility: [facility] Address: [address] [place] [address] Performed By: #### 5 7021-8 ####[facility] LABORATORYCLIA [id number] [place] [address] [place]#### 02435-4 ####[facility] LABCLIA [id number] [place] [id number] [place] Hemoglobin (Bld) [Mass/Vol] 8.0 g/dL Low 13.0-17.0 [facility] Comment on above: Order Comment: Speci men Type: BLOOD SPECIMENOrdering Facility: [facility] Address: [address] [place] [address] [place] [address] Performed By: #### 5 7021-8 ####[facility] LABORATORYCLIA [id number] [place] [address] [place]#### 03984-8 ####[facility] LABCLIA [id number] [place] [id number] [place] Immature granulocytes (Bld) [#/Vol] 10*3/uL Normal <0.10 [facility] Comment on above: Order Comment: Speci men Type: BLOOD SPECIMENOrdering Facility: [facility] Address: [address] [place] [address] Performed By: #### 5 7021-8 ####[facility] LABORATORYCLIA [id number] [place] [address] [place]#### 84566-6 ####[facility] LABCLIA [id number] [place] [address] [place] Immature granulocytes/100 WBC (Bld) 0.2 % Normal [facility] Comment on above: Order Comment: Speci men Type: BLOOD SPECIMENOrdering Facility: [facility] Address: [address] [place] [address] Performed By: #### 5 7021-8 ####[facility] LABORATORYCLIA [id number] [place] [address] [place]#### 33655-1 ####[facility] LABCLIA [id number] [place] [address] [place] Lymphocytes (Bld) [#/Vol] 1.89 10*3/uL Normal 1.00-4.00 [facility] Comment on above: Order Comment: Speci men Type: BLOOD SPECIMENOrdering Facility: [facility] Address: [address] [place] [address] Performed By: #### 5 7021-8 ####[facility] LABORATORYCLIA [id number] [place] [address] [place]#### 45816-6 ####[facility] LABCLIA [id number] [place] [address] [place] Lymphocytes/100 WBC (Bld) 42.9 % Normal [facility] Comment on above: Order Comment: Speci men Type: BLOOD SPECIMENOrdering Facility: [facility] Address: [address] [place], [place] [address] Performed By: #### 5 7021-8 ####[facility] LABORATORYCLIA [id number] [place] [address] [place]#### 68761-6 ####[facility] LABCLIA [id number] [place] [address] [place] MCH (RBC) [Entitic mass] 27.4 pg Normal 26.0-34.0 [facility] Comment on above: Order Comment: Speci men Type: BLOOD SPECIMENOrdering Facility: [facility] Address: [address] [place] [address] Performed By: #### 5 7021-8 ####HERRERA LABORATORYCLIA [id number] [place] [address] [place]#### 02607-6 ####[facility] LABCLIA [id number] [place] [address] [place] MCHC (RBC) [Mass/Vol] 30.0 g/dL Low 30.5-36.0 [facility] Comment on above: Order Comment: Speci men Type: BLOOD SPECIMENOrdering Facility: [facility] Address: [address] [place] [address] Performed By: #### 5 7021-8 ####HERRERA LABORATORYCLIA [id number] [address] [place]#### 36856-4 ####[facility] LABCLIA [id number] [place] [address] [place] MCV (RBC) [Entitic vol] 91.4 fL Normal 80.0-100.[address] [facility] Comment on above: Order Comment: Speci men Type: BLOOD SPECIMENOrdering Facility: [facility] Address: [address] [place] [address] Performed By: #### 5 7021-8 ####HERRER[facility] LABORATORYCLIA [id number] [place] [address] [place]#### 96455-5 ####[facility] LABCLIA [id number] [address] [address] [place] Monocytes (Bld) [#/Vol] 0.33 10*3/uL Normal <0.87 [facility] Comment on above: Order Comment: Speci men Type: BLOOD SPECIMENOrdering Facility: [facility] Address: [address] [place] [address] Performed By: #### 5 7021-8 ####HERRERA LABORATORYCLIA [id number] [place] [address] [place]#### 94756-9 ####[facility] LABCLIA [id number] [place] [address] [place] Monocytes/100 WBC (Bld) 7.5 % Normal [facility] Comment on above: Order Comment: Speci men Type: BLOOD SPECIMENOrdering Facility: [facility] Address: [address] [place] [address] Performed By: #### 5 7021-8 ####HERRERA LABORATORYCLIA [id number] [place] [address] [place]#### 49829-5 ####[facility] LABCLIA [id number] [place] [id number] [place] Neutrophils (Bld) [#/Vol] 2.15 10*3/uL Normal 1.45-7.50 [facility] Comment on above: Order Comment: Speci men Type: BLOOD SPECIMENOrdering Facility: [facility] Address: [address] [place] [address] Performed By: #### 5 7021-8 ####HERRERA LABORATORYCLIA [id number] [place] [address] [place]#### 51592-2 ####[facility] LABCLIA [id number] [place] [id number] [place] Neutrophils/100 WBC (Bld) 48.7 % Normal [facility] Comment on above: Order Comment: Speci men Type: BLOOD SPECIMENOrdering Facility: [facility] Address: [address] [place] [address] Performed By: #### 5 7021-8 ####HERRERA LABORATORYCLIA [id number] [address]#### 29107-8 ####[facility] LABCLIA [id number] [place] [address] [place] Nucleated RBC (Bld) [#/Vol] 10*3/uL Normal <0.01 [facility] Comment on above: Order Comment: Speci men Type: BLOOD SPECIMENOrdering Facility: [facility] Address: [address] [place] [address] Performed By: #### 5 7021-8 ####HERRERA LABORATORYCLIA [id number] [place] [address] [facility] [place]#### 64777-0 ####[facility] LABCLIA [id number] [place] [address] [place] Nucleated RBC/100 WBC (Bld) [Ratio] 0.0 /100 WBC Normal [facility] Comment on above: Order Comment: Speci men Type: BLOOD SPECIMENOrdering Facility: [facility] Address: [address] [place] [address] Performed By: #### 5 7021-8 ####HERRERA LABORATORYCLIA [id number] [address] [place]#### 71278-7 ####[facility] LABCLIA [id number] [place] [address] [place] Platelet mean volume (Bld) [Entitic vol] 8.7 fL Low 9.0-12.7 [facility] Comment on above: Order Comment: Speci men Type: BLOOD SPECIMENOrdering Facility: [facility] Address: [address] [place] [address] Performed By: #### 5 7021-8 ####HERRERA LABORATORYCLIA [id number] [place] [address] [facility] [place]#### 78237-8 ####[facility] LABCLIA [id number] [place] [address] [place] Platelets (Bld) [#/Vol] 257 10*3/uL Normal 150-400 [facility] Comment on above: Order Comment: Speci men Type: BLOOD SPECIMENOrdering Facility: [facility] Address: [address] [place] [address] Performed By: #### 5 7021-8 ####HERRERA LABORATORYCLIA [id number] [place] [address] [place] [facility]#### 53695-8 ####[facility] LABCLIA [id number] [place] [address] [place] RBC (Bld) [#/Vol] 2.92 10*6/uL Low 4.20-6.00 [facility] Comment on above: Order Comment: Speci men Type: BLOOD SPECIMENOrdering Facility: [facility] Address: [address] [place] [address] Performed By: #### 5 7021-8 ####HERRERA LABORATORYCLIA [id number] [address] [place]#### 18875-6 ####[facility] LABCLIA [id number] [place] [address] [place] WBC (Bld) [#/Vol] 4.41 10*3/uL Normal 3.70-11.00 [facility] Comment on above: Order Comment: Speci men Type: BLOOD SPECIMENOrdering Facility: [facility] Address: [address] [place] [address] Performed By: #### 5 7021-8 ####HERRERA LABORATORYCLIA [id number] [address] [place]#### 81229-7 ####[facility] LABCLIA [id number] [place] [address] [place] CNPNon 01-26-2025 CNPN Normal [facility] CONSULT PROGon 01-26-2025 CONSULT PROG Normal [facility] COPPER BLOODon 01-26-2025 Copper [Mass/Vol] 158 ug/dL High 70-140 [facility] Comment on above: Order Comment: Demarco harris Type: BLOOD SPECIMENOrdering Facility: [facility] Address: [address] [place] [address] Result Comment: This test was developed, and its performance characteristics determined by the [facility] Department of Pathology and Laboratory Medicine. It has not been cleared or approved by the FDA. The [facility] Department of Pathology and Laboratory Medicine is regulated under CLIA as qualified to perform high-complexity testing. This test is used for clinical purposes. It should not be regarded as investigational or for research. Performed By: #### 5 763-8, COPPER ####[facility] LABIA [id number] [address] [place] HbA1c (Bld)on 01-26-2025 Average glucose Estimated from glycated hemoglobin (Bld) [Mass/Vol] 148 mg/dL Normal [facility] Comment on above: Order Comment: Demarco harris Type: BLOOD SPECIMENOrdering Facility: [facility] Address: [address] [place] [address] Result Comment: eAG: (Estimated average glucose) is a calculated value from HgbA1c and is field service representative of the average blood glucose level in the last 2-3 month period. Performed By: #### 5 7021-8 ####[facility] LABORATORYCLIA [id number] [place] [address] [place]#### 27048-3 ####[facility] LABIA [id number] [place] [address] [place] HbA1c (Bld) [Mass fraction] 6.8 % High 4.3-5.6 [facility] Comment on above: Order Comment: Demarco harris Type: BLOOD SPECIMENOrdering Facility: [facility] Address: [address] [place] [id number] Result Comment: [place] Diabetes Association guidelines indicate that patients with HgbA1c in the range 5.7-6.4% are at increased risk for development of diabetes, and intervention by lifestyle modification may be beneficial. HgbA1c greater or equal to 6.5% is considered diagnostic of diabetes. Performed By: #### 5 7021-8 ####HERRER[facility] LABORATORYCLIA [id number] [place] [address] [place]#### 20603-5 ####[facility] LABCLIA [id number] [place] [address] [place] Hepatic function 2000 panelo n 01-26-2025 Albumin [Mass/Vol] 3.0 g/dL Low 3.9-4.9 [facility] Comment on above: Order Comment: Speci men Type: BLOOD SPECIMENOrdering Facility: [facility] Address: [facility] [place] [address] Performed By: #### 2 4321-2, 33380-1, 29773-0, 2776-1 ####HERRER[facility] LABORATORYCLIA [id number] [address] STATES [facility] ALP [Catalytic activity/Vol] 90 U/L Normal 38-113 [facility] Comment on above: Order Comment: Speci men Type: BLOOD SPECIMENOrdering Facility: [facility] Address: [address] [place] [address] Performed By: #### 2 4321-2, 80593-0, 90429-7, 2776-1 ####HERR[facility] LABORATORYCLIA [id number] [address] STATES [facility] ALT [Catalytic activity/Vol] 15 U/L Normal 10-54 [facility] Comment on above: Order Comment: Speci men Type: BLOOD SPECIMENOrdering Facility: [facility] Address: [address] [place] [address] Performed By: #### 2 4321-2, 62443-6, 86370-4, 7-1 ####[facility] LABORATORYCLIA [id number] [address] [place] AST [Catalytic activity/Vol] 20 U/L Normal 14-40 [facility] Comment on above: Order Comment: Speci men Type: BLOOD SPECIMENOrdering Facility: [facility] Address: [address] [place] [address] Performed By: #### 2 4321-2, 54009-5, 26696-3, 2776-1 ####[facility] LABORATORYCLIA [id number] [place] [address] [place] Bilirubin [Mass/Vol] 0.5 mg/dL Normal 0.2-1.3 [facility] Comment on above: Order Comment: Speci men Type: BLOOD SPECIMENOrdering Facility: [facility] Address: [address] [place] [address] Performed By: #### 2 4321-2, 28370-9, , 2776- ####[facility] LABORATORYCLIA [id number] [address] STATES [facility] Bilirubin.conjugated [Mass/Vol] 0.2 mg/dL Normal <0.3 [facility] Comment on above: Order Comment: Speci men Type: BLOOD SPECIMENOrdering Facility: [facility] Address: [address] [place] [address] Performed By: #### 2 4321-2, 45385-7, , 2776-06 ####[facility] LABORATORYCLIA [id number] [address] STATES OF [facility] Protein [Mass/Vol] 5.4 g/dL Low 6.3-8.0 [facility] Comment on above: Order Comment: Speci men Type: BLOOD SPECIMENOrdering Facility: [facility] Address: [address] [place] [address] Performed By: #### 2 4321-2, 64354-8, , 2776- ####[facility] LABORATORYCLIA [id number] [place] [address] [place] Magnesium SerPl-mCncon 01-26 Magnesium [Mass/Vol] 1.8 mg/dL Normal 1.7-2.3 [facility] Comment on above: Order Comment: Speci men Type: BLOOD SPECIMENOrdering Facility: [facility] Address: [address] [place] [address] Performed By: #### 2 4321-2, 23518-0, 23503-7, 2776-1 ####[facility] LABORATORYCLIA [id number] [place] [address] [facility] [place] NUTRITIONon 01-26-2025 NUTRITION Normal [facility] Phosphate SerPl-mCncon 01-26 Phosphate [Mass/Vol] 2.3 mg/dL Low 2.7-4.8 [facility] Comment on above: Order Comment: Speci men Type: BLOOD SPECIMENOrdering Facility: [facility] Address: [address] [place] [address] Performed By: #### 2 4321-2, 08596-1, 91496-5, 2776- ####[facility] LABORATORYCLIA [id number] [place] [id number] [facility] THERAPY NTon 01-26-2025 THERAPY NT Normal [facility] Zinc SerPl-ncon 01-26-2025 Zinc [Mass/Vol] 49 ug/dL Low 60-120 [facility] Comment on above: Order Comment: Speci men Type: BLOOD SPECIMENOrdering Facility: [facility] Address: [address] [place] [address] Result Comment: This test was developed, and its performance characteristics determined by the [facility] Department of Pathology and Laboratory Medicine. It has not been cleared or approved by the FDA. The [facility] Department of Pathology and Laboratory Medicine is regulated under CLIA as qualified to perform high-complexity testing. This test is used for clinical purposes. It should not be regarded as investigational or for research. Performed By: #### 5 763-8, COPPER ####[facility] LABCLIA [id number] [place] [address] [place] Basic metabolic 2000 panelon 01-25-2025 Anion gap [Moles/Vol] 11 mmol/L Normal 8-15 [facility] Comment on above: Order Comment: Speci men Type: BLOOD SPECIMENOrdering Facility: [facility] Address: [address] [place], [place] [address] Performed By: #### 2 4325-3, 6-4, 63873-4, 11410-1, 2777-1, 16378-7 ####HERRER[facility] LABORATORYCLIA [id number] [place] [address] [place] Calcium [Mass/Vol] 8.0 mg/dL Low 8.5-10.2 [facility] Comment on above: Order Comment: Speci men Type: BLOOD SPECIMENOrdering Facility: [facility] Address: [address] [place], [place] [address] Performed By: #### 2 4325-3, 6-4, 95678-3, 64633-9, 2777-1, 99200-8 ####[facility] LABORATORYCLIA [id number] [place] [address] [place] Chloride [Moles/Vol] 107 mmol/L Normal 98-107 [facility] Comment on above: Order Comment: Speci men Type: BLOOD SPECIMENOrdering Facility: [facility] Address: [address] [place] [address] Performed By: #### 2 4325-3, 6-4, 77388-6, 67692-5, 2777-1, 98453-0 ####[facility] LABORATORYCLIA [id number] [place] [address] [place] CO2 [Moles/Vol] 21 mmol/L Low 22-30 [facility] Comment on above: Order Comment: Speci men Type: BLOOD SPECIMENOrdering Facility: [facility] Address: [address] [place] [address] Performed By: #### 2 4325-3, 6-4, 77560-0, 14641-9, 2777-1, 33339-4 ####[facility] LABORATORYCLIA [id number] [place] [address] [place] Creatinine [Mass/Vol] 1.10 mg/dL Normal 0.73-1.22 [facility] Comment on above: Order Comment: Speci men Type: BLOOD SPECIMENOrdering Facility: [facility] Address: [address] [place] [address] Performed By: #### 2 4325-3, 2276-4, 66330-3, 16214-6, 2777-1, 49133-6 ####[facility] LABORATORYCLIA [id number] [place] [id number] [place] eGFRcr SerPlBld CKD-EPI 2020 70 mL/min/1.73m??? Normal >=60 [facility] Comment on above: Order Comment: Demarco harris Type: BLOOD SPECIMENOrdering Facility: [facility] Address: [address] [place] [address] Result Comment: Nancy mated Glomerular Filtration Rate [...] GFR. Performed By: #### 2 4325-3, 2276-4, 98931-0, 50700-5, 2777-1, 04214-9 ####[facility] LABORATORYCLIA [id number] [place] [id number] [place] Glucose [Mass/Vol] 237 mg/dL High 74-99 [facility] Comment on above: Order Comment: Demarco harris Type: BLOOD SPECIMENOrdering Facility: [facility] Address: [address] [place] [address] Result Comment: The [place] Diabetes Association (ADA) provides guidance for cutoff [...] Standards of Medical Care in Diabetes 2016, [place] Diabetes Association. Diabetes Care. 2016.39(Suppl 1). Performed By: #### 2 4325-3, 2276-4, 40637-3, 86677-0, 2777-1, 87124-7 ####[facility] LABORATORYCLIA [id number] [place] [address] [place] Potassium [Moles/Vol] 4.2 mmol/L Normal 3.7-5.1 [facility] Comment on above: Order Comment: Speci men Type: BLOOD SPECIMENOrdering Facility: [facility] Address: [address] [place] [address] Performed By: #### 2 4325-3, 6-4, 75538-7, 44753-8, 2777-1, 70997-8 ####[facility] LABORATORYCLIA [id number] [place] [address] [place] Sodium [Moles/Vol] 139 mmol/L Normal 136-144 [facility] Comment on above: Order Comment: Speci men Type: BLOOD SPECIMENOrdering Facility: [facility] Address: [address] [place] [address] Performed By: #### 2 4325-3, 6-4, 10787-2, 63278-9, 2777-1, 15875-2 ####[facility] LABORATORYCLIA [id number] [place] [address] [place] Urea nitrogen [Mass/Vol] 19 mg/dL Normal 9-24 [facility] Comment on above: Order Comment: Speci men Type: BLOOD SPECIMENOrdering Facility: [facility] Address: [address] [place] [address] Performed By: #### 2 4325-3, 6-4, 90503-4, 22961-3, 2777-1, 98980-6 ####[facility] LABORATORYCLIA [id number] [place] [id number] [place] CASE MGT INIT [facility]ESon 2024 [facility] CBC W Auto Differential pane l (Bld)on 01-25-2025 Basophils (Bld) [#/Vol] 10*3/uL Normal <0.[address] [facility] Comment on above: Order Comment: Speci men Type: BLOOD SPECIMENOrdering Facility: [facility] Address: [address] [place] [address] Performed By: #### 1 4196-0, ####HERRER[facility] LABORATORYCLIA [id number] [address] [place] Basophils/100 WBC (Bld) 0.2 % Normal [facility] Comment on above: Order Comment: Speci men Type: BLOOD SPECIMENOrdering Facility: [facility] Address: [address] [place] [address] Performed By: #### 1 4196-0, ####H[facility] LABORATORYCLIA [id number] [address] Differential cell count method Nom (Bld) Auto Normal [facility] Comment on above: Order Comment: Speci men Type: BLOOD SPECIMENOrdering Facility: [facility] Address: [address] [place] [address] Performed By: #### 1 4196-0, ####H[facility] LABORATORYCLIA [id number] [place] [address] [place] Eosinophils (Bld) [#/Vol] 10*3/uL Normal <0.46 [facility] Comment on above: Order Comment: Speci men Type: BLOOD SPECIMENOrdering Facility: [facility] Address: [address] [place] [address] Performed By: #### 1 4196-0, ####H[facility] LABORATORYCLIA [id number] [address] Eosinophils/100 WBC (Bld) 0.2 % Normal [facility] Comment on above: Order Comment: Speci men Type: BLOOD SPECIMENOrdering Facility: [facility] Address: [address] [place] [address] Performed By: #### 1 4196-0, ####H[facility] LABORATORYCLIA [id number] [address] [place] Erythrocyte distribution width (RBC) [Ratio] 15.6 % High 11.5-15.0 [facility] Comment on above: Order Comment: Speci men Type: BLOOD SPECIMENOrdering Facility: [facility] Address: [address] [place] [address] Performed By: #### 1 4196-0, 24359-9 ####H[facility] LABORATORYCLIA [id number] [address] Hematocrit (Bld) [Volume fraction] 25.0 % Low 39.0-51.0 [facility] Comment on above: Order Comment: Speci men Type: BLOOD SPECIMENOrdering Facility: [facility] Address: [address] [place] [address] Performed By: #### 1 4196-0, 25946-2 ####[facility] LABORATORYCLIA [id number] [address] [place] Hemoglobin (Bld) [Mass/Vol] 7.4 g/dL Low 13.0-17.0 [facility] Comment on above: Order Comment: Speci men Type: BLOOD SPECIMENOrdering Facility: [facility] Address: [address] [place] [address] Performed By: #### 1 4196-0, 17079-2 ####[facility] LABORATORYCLIA [id number] [address] [place] Immature granulocytes (Bld) [#/Vol] 10*3/uL Normal <0.10 [facility] Comment on above: Order Comment: Speci men Type: BLOOD SPECIMENOrdering Facility: [facility] Address: [address] [place] [address] Performed By: #### 1 4196-0, 58605-7 ####[facility] LABORATORYCLIA [id number] [address] Immature granulocytes/100 WBC (Bld) 0.5 % Normal [facility] Comment on above: Order Comment: Speci men Type: BLOOD SPECIMENOrdering Facility: [facility] Address: [address] [place] [address] Performed By: #### 1 4196-0, 22723-8 ####[facility] LABORATORYCLIA [id number] [address] [place] Lymphocytes (Bld) [#/Vol] 1.64 10*3/uL Normal 1.00-4.00 [facility] Comment on above: Order Comment: Speci men Type: BLOOD SPECIMENOrdering Facility: [facility] Address: [address] [place] [address] Performed By: #### 1 4196-0, 42328-1 ####[facility] LABORATORYCLIA [id number] [address] Lymphocytes/100 WBC (Bld) 39.3 % Normal [facility] Comment on above: Order Comment: Speci men Type: BLOOD SPECIMENOrdering Facility: [facility] Address: [address] [place] [address] Performed By: #### 1 4196-0, 43084-9 ####[facility] LABORATORYCLIA [id number] [address] MCH (RBC) [Entitic mass] 27.3 pg Normal 26.0-34.0 [facility] Comment on above: Order Comment: Speci men Type: BLOOD SPECIMENOrdering Facility: [facility] Address: [address] [place] [address] Performed By: #### 1 4196-0, 80613-3 ####[facility] LABORATORYCLIA [id number] [address] MCHC (RBC) [Mass/Vol] 29.6 g/dL Low 30.5-36.0 [facility] Comment on above: Order Comment: Speci men Type: BLOOD SPECIMENOrdering Facility: [facility] Address: [address] [place] [address] Performed By: #### 1 4196-0, 74311-0 ####[facility] LABORATORYCLIA [id number] [address] MCV (RBC) [Entitic vol] 92.3 fL Normal 80.0-100.0 [facility] Comment on above: Order Comment: Speci men Type: BLOOD SPECIMENOrdering Facility: [facility] Address: [address] [place] [address] Performed By: #### 1 4196-0, 48033-6 ####H[facility] LABORATORYCLIA [id number] [place] [address] [place] Monocytes (Bld) [#/Vol] 0.23 10*3/uL Normal <0.87 [facility] Comment on above: Order Comment: Speci men Type: BLOOD SPECIMENOrdering Facility: [facility] Address: [address] [place] [address] Performed By: #### 1 4196-0, 22690-7 ####[facility] LABORATORYCLIA [id number] [place] [address] [place] Monocytes/100 WBC (Bld) 5.5 % Normal [facility] Comment on above: Order Comment: Speci men Type: BLOOD SPECIMENOrdering Facility: [facility] Address: [address] [place] [address] Performed By: #### 1 4196-0, 47433-7 ####[facility] LABORATORYCLIA [id number] [place] [address] [place] Neutrophils (Bld) [#/Vol] 2.26 10*3/uL Normal 1.45-7.50 [facility] Comment on above: Order Comment: Speci men Type: BLOOD SPECIMENOrdering Facility: [facility] Address: [address] [place] [address] Performed By: #### 1 4196-0, 35063-2 ####HERR[facility] LABORATORYCLIA [id number] [place] [address] [place] Neutrophils/100 WBC (Bld) 54.3 % Normal [facility] Comment on above: Order Comment: Speci men Type: BLOOD SPECIMENOrdering Facility: [facility] Address: [address] [place] [address] Performed By: #### 1 4196-0, 72730-1 ####HERRER[facility] LABORATORYCLIA [id number] [place] [address] [place] [place] Nucleated RBC (Bld) [#/Vol] 10*3/uL Normal <0.01 [facility] Comment on above: Order Comment: Speci men Type: BLOOD SPECIMENOrdering Facility: [facility] Address: [address] [place] [address] Performed By: #### 1 4196-0, 39218-4 ####[facility] LABORATORYCLIA [id number] [place] [address] [place] Nucleated RBC/100 WBC (Bld) [Ratio] 0.0 /100 WBC Normal [facility] Comment on above: Order Comment: Speci men Type: BLOOD SPECIMENOrdering Facility: [facility] Address: [address] [place] [address] Performed By: #### 1 4196-0, 74097-3 ####HERRERA LABORATORYCLIA [id number] [place] [address] [place] Platelet mean volume (Bld) [Entitic vol] 8.9 fL Low 9.0-12.7 [facility] Comment on above: Order Comment: Speci men Type: BLOOD SPECIMENOrdering Facility: [facility] Address: [address] [place] [address] Performed By: #### 1 4196-0, 40012-0 ####H[facility] LABORATORYCLIA [id number] [place] [address] [place] Platelets (Bld) [#/Vol] 242 10*3/uL Normal 150-400 [facility] Comment on above: Order Comment: Speci men Type: BLOOD SPECIMENOrdering Facility: [facility] Address: [address] [place] [address] Performed By: #### 1 4196-0, 68829-1 ####HERRERA LABORATORYCLIA [id number] [place] [address] [place] RBC (Bld) [#/Vol] 2.71 10*6/uL Low 4.20-6.00 [facility] Comment on above: Order Comment: Speci men Type: BLOOD SPECIMENOrdering Facility: [facility] Address: [address] [place] [address] Performed By: #### 1 4196-0, 28524-8 ####HERRERA LABORATORYCLIA [id number] [place] [address] [place] WBC (Bld) [#/Vol] 4.17 10*3/uL Normal 3.70-11.00 [facility] Comment on above: Order Comment: Speci men Type: BLOOD SPECIMENOrdering Facility: [facility] Address: [facility] [place] [id number] Performed By: #### 1 4196-0, 50403-0 ####[facility] LABORATORYCLIA [id number] [place] [address] [place] CONSULTon 01-25-2025 CONSULT Normal [facility] CONSULT Normal [facility] Ferritin SerPl-mCncon 2024 Ferritin [Mass/Vol] 1401.0 ng/mL High 30.3-565.7 [facility] Comment on above: Order Comment: Speci men Type: BLOOD SPECIMENOrdering Facility: [facility] Address: [address] [place], [place] [address] [address] Performed By: #### 2 4325-3, 2276-4, 00187-2, 27391-4, 2777-1, 72293-8 ####[facility] LABORATORYCLIA [id number] [place] [address] [place] Hepatic function 2000 panelo n 01-25-2025 Albumin [Mass/Vol] 2.7 g/dL Low 3.9-4.9 [facility] Comment on above: Order Comment: Speci men Type: BLOOD SPECIMENOrdering Facility: [facility] Address: [facility] [place] [id number] Performed By: #### 2 4325-3, 2276-4, 59529-3, 60410-9, 2777-1, 02935-8 ####[facility] LABORATORYCLIA [id number] [place] [id number] [place] ALP [Catalytic activity/Vol] 85 U/L Normal 38-113 [facility] Comment on above: Order Comment: Speci men Type: BLOOD SPECIMENOrdering Facility: [facility] Address: [facility] [place] [id number] Performed By: #### 2 4325-3, 6-4, 19876-5, 41531-4, 2777-1, 42601-4 ####[facility] LABORATORYCLIA [id number] [place] [address] [place] ALT [Catalytic activity/Vol] 16 U/L Normal 10-54 [facility] Comment on above: Order Comment: Speci men Type: BLOOD SPECIMENOrdering Facility: [facility] Address: [address] [place] [address] Performed By: #### 2 4325-3, 6-4, 84705-5, 90671-5, 2777-1, 00755-8 ####[facility] LABORATORYCLIA [id number] [place] [address] [place] AST [Catalytic activity/Vol] 22 U/L Normal 14-40 [facility] Comment on above: Order Comment: Speci men Type: BLOOD SPECIMENOrdering Facility: [facility] Address: [address] [place] [address] Performed By: #### 2 5-3, 2275-4, 71656-0, 84318-7, 2777-1, 43254-6 ####[facility] LABORATORYCLIA [id number] [place] [address] [place] Bilirubin [Mass/Vol] 0.5 mg/dL Normal 0.2-1.3 [facility] Comment on above: Order Comment: Speci men Type: BLOOD SPECIMENOrdering Facility: [facility] Address: [address] [place] [address] Performed By: #### 2 4325-3, 6-4, 65564-8, 08299-8, 2777-1, 34454-4 ####[facility] LABORATORYCLIA [id number] [place] [address] [facility] Bilirubin.conjugated [Mass/Vol] 0.2 mg/dL Normal <0.3 [facility] Comment on above: Order Comment: Speci men Type: BLOOD SPECIMENOrdering Facility: [facility] Address: [address] [place] [address] Performed By: #### 2 4325-3, 2275-4, 24522-0, 48962-7, 2777-1, 83627-1 ####HERRERA LABORATORYCLIA [id number] [place] [address] [place] Protein [Mass/Vol] 5.1 g/dL Low 6.3-8.0 [facility] Comment on above: Order Comment: Speci men Type: BLOOD SPECIMENOrdering Facility: [facility] Address: [address] [place] [address] Performed By: #### 2 4325-3, 6-4, 31642-4, 29580-8, 2777-1, 35731-7 ####HERRER[facility] LABORATORYCLIA [id number] [place] [id number] [place] Iron and Iron binding capaci ty panelon 01-25-2025 Iron [Mass/Vol] 18 ug/dL Low 41-186 [facility] Comment on above: Order Comment: Speci men Type: BLOOD SPECIMENOrdering Facility: [facility] Address: [address] [place] [address] Performed By: #### 2 4325-3, 6-4, 99062-4, 24594-0, 2777-1, 72920-0 ####HERRERA LABORATORYCLIA [id number] [place] [id number] [place] Iron binding capacity [Mass/Vol] 128 ug/dL Low 232-386 [facility] Comment on above: Order Comment: Speci men Type: BLOOD SPECIMENOrdering Facility: [facility] Address: [address] [place] [address] Performed By: #### 2 4325-3, 6-4, 45708-5, 97106-8, 2777-1, 62081-0 ####HERRER[facility] LABORATORYCLIA [id number] [place] [id number] [place] Iron/TIBC [Molar ratio] 14.1 % Low 15.0-57.[address] [facility] Comment on above: Order Comment: Speci men Type: BLOOD SPECIMENOrdering Facility: [facility] Address: [address] [place] [address] Performed By: #### 2 4325-3, 6-4, 88615-8, 83448-4, 2777-1, 24338-9 ####H[facility]ER[facility] LABORATORYCLIA [id number] [place] [address] [place] Magnesium SerPl-mCncon 01-25 Magnesium [Mass/Vol] 2.0 mg/dL Normal 1.7-2.3 [facility] Comment on above: Order Comment: Speci men Type: BLOOD SPECIMENOrdering Facility: [facility] Address: [address] [place] [address] Performed By: #### 2 4325-3, 6-4, 17567-8, 67455-5, 2777-1, 58213-1 ####[facility] LABORATORYCLIA [id number] [place] [address] [place] Phosphate SerPl-mCncon 01-25 Phosphate [Mass/Vol] 3.0 mg/dL Normal 2.7-4.8 [facility] Comment on above: Order Comment: Speci men Type: BLOOD SPECIMENOrdering Facility: [facility] Address: [address] [place] [address] Performed By: #### 2 4325-3, 6-4, 72631-9, 26508-0, 2777-1, 09204-7 ####[facility] LABORATORYCLIA [id number] [place] [address] [place] Retics #on 01-25-2025 Reticulocytes (Bld) [#/Vol] 0.78888 10*3/uL High 0.018-0.10 0 [facility] Comment on above: Order Comment: Speci men Type: BLOOD SPECIMENOrdering Facility: [facility] Address: [address] [place] [address] Performed By: #### 1 4196-0, 48732-6 ####[facility] LABORATORYCLIA [id number] [place] [address] [place] Reticulocytes (Bld) [#/Vol]o n 01-25-2025 Reticulocytes/100 RBC (Bld) 4.4 % High 0.4-2.0 [facility] Comment on above: Order Comment: Speci men Type: BLOOD SPECIMENOrdering Facility: [facility] Address: [address] [place] [address] Performed By: #### 1 4196-0, 96112-1 ####HERRERA LABORATORYCLIA [id number] [place] [address] [place] ABO AND RH ONLYon 01-24-2025 ABO A Normal [facility] Comment on above: Order Comment: Speci men Type: BLOOD SPECIMENOrdering Facility: [facility] Address: [address] [place] [address] Result Comment: Danielle ected result: Previously reported as Indeterminate ABO on 01/24/2025 at 8:36 PM EDT. Performed By: #### A SCR, [id number], ABORH, WKUP2 ####[facility] BLOOD BANKCLIA [id number] [place] [address] [place] Rh Nom (Bld) Invalid result [facility] Comment on above: Order Comment: Speci men Type: BLOOD SPECIMENOrdering Facility: [facility] Address: [address] [place] [address] Performed By: #### A SCR, [id number], ABOR, WKUP2 ####[facility] BLOOD BANKCLIA [id number] [place] [address] [place] ALLIED HEALTHon 01-24-2025 ALLIED HEALTH Normal [facility] ANTIBODY ID PATIENTon 2024 ANTIBODY IDENTIFIED Detected Normal [facility] Comment on above: Order Comment: Speci men Type: BLOOD SPECIMENOrdering Facility: [facility] Address: [address] [place] [address] Result Comment: Test ing Performed at the [facility] Performed By: #### % MARYANN, [id number], TSCR, DAGT ####[facility] BLOOD BANKCLIA [id number] [place] [address] [place] ANTIBODY SCREENon 01-24-2025 TYPE AND SCREEN EXPIRATION 01/27/2025 23:59 Normal [facility] Comment on above: Order Comment: Speci men Type: BLOOD SPECIMENOrdering Facility: [facility] Address: [address] [place], [place] [address] Performed By: #### A SCR, [id number], ABOR, WKUP2 ####[facility] BLOOD BANKCLIA [id number] [place] [id number] [facility] ANTIBODY WORKUP(2)on 025 ADDITIONAL SPECIMENS Received in [facility] Comment on above: Order Comment: Speci men Type: BLOOD SPECIMENOrdering Facility: [facility] Address: [address] [place] [address] Performed By: #### A SCR, [id number], ABOR, WKUP2 ####[facility] BLOOD BANKCLIA [id number] [place] [id number] [facility] ANTIBODY WORKUP(4)on 025 ADDITIONAL SPECIMENS Received in lab [facility] Comment on above: Order Comment: Speci men Type: BLOOD SPECIMENOrdering Facility: [facility] Address: [address] [place] [address] Result Comment: Samp le sent to a Reference Laboratory for additional testing Performed By: #### W KUP4 ####[facility] BLOOD BANKCLIA [id number] [place], [place] [address] [place] [address] ARTERIAL BLOOD GASESon 01-24 Base excess Calc (Bld) [Moles/Vol] 0 mmol/L Normal 0-2 [facility] Comment on above: Order Comment: Speci men Type: ARTERIAL BLOOD SPECIMENOrdering Facility: [facility] Address: [address] [place] [address] Performed By: #### A LLBG ####[facility] RESPIRATORYCLIA [id number] [facility] RESPIRATORY [id number] [place] [address] Calcium.ionized (Bld) [Mass/Vol] 1.14 mmol/L Normal 1.08-1.30 [facility] Comment on above: Order Comment: Speci men Type: ARTERIAL BLOOD SPECIMENOrdering Facility: [facility] Address: [address] [place] [address] Performed By: #### A LLBG ####[facility] RESPIRATORYCLIA [id number] [facility]OSP[facility] RESPIRATORY [id number] [address] [address] Carboxyhemoglobin (BldA) [Mass fraction] 2.6 % High 0.0-2.0 [facility] Comment on above: Order Comment: Speci men Type: ARTERIAL BLOOD SPECIMENOrdering Facility: [facility] Address: [address] [place] [address] Result Comment: Carb oxyhemoglobin Reference Range for Smokers: 2.0-8.0% Performed By: #### A LLBG ####[facility]PIRATORYVERMONT [facility] [id number] [facility]OS[facility] RESPIRATORY [id number] [address] [address] CO2 (Bld) [Partial pressure] 33 mm Hg Low 36-46 [facility] Comment on above: Order Comment: Speci men Type: ARTERIAL BLOOD SPECIMENOrdering Facility: [facility] Address: [address] [place] [address] Performed By: #### A LLBG ####[place] [id number] [place] [address] RESPIRATORY [id number] [address] [address] CO2 adjusted to patient's actual temperature (Bld) [Partial pressure] Normal [facility] Comment on above: Order Comment: Speci men Type: ARTERIAL BLOOD SPECIMENOrdering Facility: [facility] Address: [address] [place] [address] Performed By: #### A LLBG ####[facility] [id number] [facility]OSP[facility] RESPIRATORY [id number] [address] [address] HCO3 (Bld) [Moles/Vol] 24 mmol/L Normal 22-26 [facility] Comment on above: Order Comment: Speci men Type: ARTERIAL BLOOD SPECIMENOrdering Facility: [facility] Address: [address] [place] [address] Performed By: #### A LLBG ####[facility] [id number] [facility]OSPITAL RESPIRATORY [id number] [address] Hemoglobin (Bld) [Mass/Vol] 7.4 g/dL Low 13.0-17.0 [facility] Comment on above: Order Comment: Speci men Type: ARTERIAL BLOOD SPECIMENOrdering Facility: [facility] Address: [address] [place] [address] Performed By: #### A LLBG ####[facility] [id number] [facility]OSP[facility] RESPIRATORY [id number] [address] [address] Lactate [Moles/Vol] 0.4 mmol/L Low 0.5-2.2 [facility] Comment on above: Order Comment: Speci men Type: ARTERIAL BLOOD SPECIMENOrdering Facility: [facility] Address: [address] [place] [id number] Performed By: #### A LLBG ####[facility] [id number] [facility] RESPIRATORY [id number] [address] [address] Methemoglobin (Bld) [Mass fraction] % Normal 0.0-1.5 [facility] Comment on above: Order Comment: Speci men Type: ARTERIAL BLOOD SPECIMENOrdering Facility: [facility] Address: [address] [place] [id number] Performed By: #### A LLBG ####[place] [id number] [place] [address] RESPIRATORY [id number] [address] [address] O2 THERAPY RA=Room Air Normal [facility] Comment on above: Order Comment: Speci men Type: ARTERIAL BLOOD SPECIMENOrdering Facility: [facility] Address: [address] [place] [address] Performed By: #### A LLBG ####[facility]ATORYVERMONT [facility] [id number] [facility]OSP[facility] RESPIRATORY [id number] [address] [address] Oxygen (Bld) [Partial pressure] 83 mm Hg Low 85-95 [facility] Comment on above: Order Comment: Speci men Type: ARTERIAL BLOOD SPECIMENOrdering Facility: [facility] Address: [address] [place] [address] Performed By: #### A LLBG ####[id number] [place] [address] RESPIRATORY [id number] [address] [address] Oxygen adjusted to patient's actual temperature (Bld) [Partial pressure] Normal [facility] Comment on above: Order Comment: Speci men Type: ARTERIAL BLOOD SPECIMENOrdering Facility: [facility] Address: [address] [place] [address] Performed By: #### A LLBG ####[facility] RESPIRATORYIA [id number] [facility]OSP[facility] RESPIRATORY [id number] [address] [address] Oxyhemoglobin (BldA) [Mass fraction] 96 % Normal 95-98 [facility] Comment on above: Order Comment: Pemai men Type: ARTERIAL BLOOD SPECIMENOrdering Facility: [facility] Address: [address] [place] [address] Performed By: #### A LLBG ####[facility] RESPIRATORY[id number] [facility]OS[facility] RESPIRATORY [id number] [address] [address] pH (Bld) 7.46 [pH] High 7.35-7.45 [facility] Comment on above: Order Comment: Speci men Type: ARTERIAL BLOOD SPECIMENOrdering Facility: [facility] Address: [address] [place] [address] Performed By: #### A LLBG ####[facility] RESPIRATORY[id number] HOSPITAL RESPIRATORY [id number] [address] [address] pH adjusted to patient's actual temperature (Bld) Normal [facility] Comment on above: Order Comment: Pemai men Type: ARTERIAL BLOOD SPECIMENOrdering Facility: [facility] Address: [address] [place] [address] Performed By: #### A LLBG ####[facility] RESPIRATORYIA [id number] HOSPITAL RESPIRATORY [id number] [address] [address] PO2 / FIO2 RATIO 395 mmHg Normal >300 [facility] Comment on above: Order Comment: Pemai men Type: ARTERIAL BLOOD SPECIMENOrdering Facility: [facility] Address: [address] [place] [address] Performed By: #### A LLBG ####[facility] RESPIRATORYIA [id number] HOSPITAL RESPIRATORY [id number] [address] [address] Potassium [Moles/Vol] 3.4 mmol/L Low 3.5-5.0 [facility] Comment on above: Order Comment: Speci men Type: ARTERIAL BLOOD SPECIMENOrdering Facility: [facility] Address: [address] [place] [address] Performed By: #### A LLBG ####[facility] RESPIRATORYCLIA [id number] [facility]OSPITAL RESPIRATORY [id number] [address] [address] Ammonia Plas-sCncon 01-25-20 25 Ammonia (P) [Moles/Vol] 18 umol/L Normal 16-[address] [facility] Comment on above: Order Comment: Speci men Type: BLOOD SPECIMENOrdering Facility: [facility] Address: [address] [place] [address] Performed By: #### 1 6362-6 ####[facility] LABORATORYCLIA [id number] [address] B-HYDROXYBUTYRATEon 01-25-20 25 Beta hydroxybutyrate [Moles/Vol] 0.30 mmol/L High <0.28 [facility] Comment on above: Order Comment: Speci men Type: BLOOD SPECIMENOrdering Facility: [facility] Address: [address] [place] [address] Performed By: #### L FI0011, 3040-3, BHB, 2157-6, 63247-6 ####[facility] LABORATORYCLIA [id number] [address] BLOOD BANK COMMENTon 025 BLOOD BANK COMMENT See Comment Normal [facility] Comment on above: Order Comment: Speci men Type: BLOOD SPECIMENOrdering Facility: [facility] Address: [address] [place] [address] Result Comment: Nuvia chung observed Performed By: #### A SCR, [id number], ABORH, WKUP2 ####[facility] BLOOD BANKCLIA [id number] [place], [place] [id number] [place] [address] BLOOD BANK COMMENT See Comment Normal [facility] Comment on above: Order Comment: Speci men Type: BLOOD SPECIMENOrdering Facility: [facility] Address: [address] [place] [address] Result Comment: See scanned documents for final ARC report. Performed By: #### % MARYANN, [id number], TSCR, DAGT ####[facility] BLOOD BANKCLIA [id number] [address] [place] CBC W Auto Differential pane l (Bld)on 01-24-2025 Basophils (Bld) [#/Vol] 10*3/uL Normal <0.11 [facility] Comment on above: Order Comment: Speci men Type: BLOOD SPECIMENOrdering Facility: [facility] Address: [address] [place] [address] Performed By: #### 5 7021-8 ####[facility] LABORATORYCLIA [id number] [address] [place] Basophils/100 WBC (Bld) 0.4 % Normal [facility] Comment on above: Order Comment: Speci men Type: BLOOD SPECIMENOrdering Facility: [facility] Address: [address] [place] [address] Performed By: #### 5 7021-8 ####[facility] LABORATORYCLIA [id number] [address] Differential cell count method Nom (Bld) Auto Normal [facility] Comment on above: Order Comment: Speci men Type: BLOOD SPECIMENOrdering Facility: [facility] Address: [address] [place] [address] Performed By: #### 5 7021-8 ####[facility] LABORATORYCLIA [id number] [address] [place] Eosinophils (Bld) [#/Vol] 10*3/uL Normal <0.46 [facility] Comment on above: Order Comment: Speci men Type: BLOOD SPECIMENOrdering Facility: [facility] Address: [address] [place] [address] Performed By: #### 5 7021-8 ####[facility] LABORATORYCLIA [id number] [place] [address] [place] Eosinophils/100 WBC (Bld) 0.4 % Normal [facility] Comment on above: Order Comment: Speci men Type: BLOOD SPECIMENOrdering Facility: [facility] Address: [facility] [place] [address] Performed By: #### 5 7021-8 ####[facility] LABORATORYCLIA [id number] [place] [address] [place] Erythrocyte distribution width (RBC) [Ratio] 15.8 % High 11.5-15.0 [facility] Comment on above: Order Comment: Speci men Type: BLOOD SPECIMENOrdering Facility: [facility] Address: [address] [place] [address] Performed By: #### 5 7021-8 ####[facility] LABORATORYCLIA [id number] [place] [address] [place] Hematocrit (Bld) [Volume fraction] 25.1 % Low 39.0-51.0 [facility] Comment on above: Order Comment: Speci men Type: BLOOD SPECIMENOrdering Facility: [facility] Address: [address] [place] [address] Performed By: #### 5 7021-8 ####[facility] LABORATORYCLIA [id number] [place] [address] [place] Hemoglobin (Bld) [Mass/Vol] 7.9 g/dL Low 13.0-17.0 [facility] Comment on above: Order Comment: Speci men Type: BLOOD SPECIMENOrdering Facility: [facility] Address: [address] [place] [address] Performed By: #### 5 7021-8 ####[facility] LABORATORYCLIA [id number] [place] [address] [place] Immature granulocytes (Bld) [#/Vol] 10*3/uL Normal <0.10 [facility] Comment on above: Order Comment: Speci men Type: BLOOD SPECIMENOrdering Facility: [facility] Address: [address] [place] [address] Performed By: #### 5 7021-8 ####[facility] LABORATORYCLIA [id number] [address] [place] Immature granulocytes/100 WBC (Bld) 0.4 % Normal [facility] Comment on above: Order Comment: Speci men Type: BLOOD SPECIMENOrdering Facility: [facility] Address: [address] [place] [address] Performed By: #### 5 7021-8 ####[facility] LABORATORYCLIA [id number] [address] [place] Lymphocytes (Bld) [#/Vol] 2.37 10*3/uL Normal 1.00-4.00 [facility] Comment on above: Order Comment: Speci men Type: BLOOD SPECIMENOrdering Facility: [facility] Address: [address] [place] [address] Performed By: #### 5 7021-8 ####[facility] LABORATORYCLIA [id number] [address] Lymphocytes/100 WBC (Bld) 49.2 % Normal [facility] Comment on above: Order Comment: Speci men Type: BLOOD SPECIMENOrdering Facility: [facility] Address: [address] [place] [address] Performed By: #### 5 7021-8 ####HERRERA LABORATORYCLIA [id number] [address] [place] MCH (RBC) [Entitic mass] 28.5 pg Normal 26.0-34.0 [facility] Comment on above: Order Comment: Speci men Type: BLOOD SPECIMENOrdering Facility: [facility] Address: [address] [place] [address] Performed By: #### 5 7021-8 ####HERRERA LABORATORYCLIA [id number] [address] MCHC (RBC) [Mass/Vol] 31.5 g/dL Normal 30.5-36.0 [facility] Comment on above: Order Comment: Speci men Type: BLOOD SPECIMENOrdering Facility: [facility] Address: [address] [place] [address] Performed By: #### 5 7021-8 ####HERRERA LABORATORYCLIA [id number] [address] [place] MCV (RBC) [Entitic vol] 90.6 fL Normal 80.0-100.0 [facility] Comment on above: Order Comment: Speci men Type: BLOOD SPECIMENOrdering Facility: [facility] Address: [address] [place] [address] Performed By: #### 5 7021-8 ####HERRERA LABORATORYCLIA [id number] [place] [address] [place] Monocytes (Bld) [#/Vol] 0.34 10*3/uL Normal <0.87 [facility] Comment on above: Order Comment: Speci men Type: BLOOD SPECIMENOrdering Facility: [facility] Address: [address] [place] [address] Performed By: #### 5 7021-8 ####HERRERA LABORATORYCLIA [id number] [address] Monocytes/100 WBC (Bld) 7.1 % Normal [facility] Comment on above: Order Comment: Speci men Type: BLOOD SPECIMENOrdering Facility: [facility] Address: [address] [place] [address] Performed By: #### 5 7021-8 ####HERRERA LABORATORYCLIA [id number] [place] [address] [place] Neutrophils (Bld) [#/Vol] 2.05 10*3/uL Normal 1.45-7.50 [facility] Comment on above: Order Comment: Speci men Type: BLOOD SPECIMENOrdering Facility: [facility] Address: [address] [place] [address] Performed By: #### 5 7021-8 ####HERRERA LABORATORYCLIA [id number] [address] [place] Neutrophils/100 WBC (Bld) 42.5 % Normal [facility] Comment on above: Order Comment: Speci men Type: BLOOD SPECIMENOrdering Facility: [facility] Address: [address] [place] [address] Performed By: #### 5 7021-8 ####HERRERA LABORATORYCLIA [id number] [place] [address] [place] Nucleated RBC (Bld) [#/Vol] 10*3/uL Normal <0.01 [facility] Comment on above: Order Comment: Speci men Type: BLOOD SPECIMENOrdering Facility: [facility] Address: [address] [place] [address] Performed By: #### 5 7021-8 ####HERRERA LABORATORYCLIA [id number] [place] [address] [place] Nucleated RBC/100 WBC (Bld) [Ratio] 0.0 /100 WBC Normal [facility] Comment on above: Order Comment: Speci men Type: BLOOD SPECIMENOrdering Facility: [facility] Address: [address] [place] [address] Performed By: #### 5 7021-8 ####HERRERA LABORATORYCLIA [id number] [place] [address] [place] Platelet mean volume (Bld) [Entitic vol] 8.8 fL Low 9.0-12.7 [facility] Comment on above: Order Comment: Speci men Type: BLOOD SPECIMENOrdering Facility: [facility] Address: [address] [place] [address] Performed By: #### 5 7021-8 ####HERRERA LABORATORYCLIA [id number] [place] [address] [place] Platelets (Bld) [#/Vol] 253 10*3/uL Normal 150-400 [facility] Comment on above: Order Comment: Speci men Type: BLOOD SPECIMENOrdering Facility: [facility] Address: [address] [place] [address] Performed By: #### 5 7021-8 ####HERRERA LABORATORYCLIA [id number] [place] [address] [place] RBC (Bld) [#/Vol] 2.77 10*6/uL Low 4.20-6.00 [facility] Comment on above: Order Comment: Speci men Type: BLOOD SPECIMENOrdering Facility: [facility] Address: [address] [place] [address] Performed By: #### 5 7021-8 ####HERRERA LABORATORYCLIA [id number] [place] [address] [place] WBC (Bld) [#/Vol] 4.82 10*3/uL Normal 3.70-11.00 [facility] Comment on above: Order Comment: Speci men Type: BLOOD SPECIMENOrdering Facility: [facility] Address: [address] [place] [address] Performed By: #### 5 7021-8 ####HERRERA LABORATORYCLIA [id number] [address] [place] CK SerPl-cCncon 01-24-2025 CK [Catalytic activity/Vol] 17 U/L Low 51-298 [facility] Comment on above: Order Comment: Speci men Type: BLOOD SPECIMENOrdering Facility: [facility] Address: [address] [place] [address] Performed By: #### L [id number], 3040-3, BHB, 2157-6, 02170-2 ####HERRERA LABORATORYCLIA [id number] [address] [place] MAE DIRECTon 01-24-2025 DAGT, ANTI-C3B,C3D Positive [facility] Comment on above: Order Comment: Speci men Type: BLOOD SPECIMENOrdering Facility: [facility] Address: [address] [place] [address] Performed By: #### % MARYANN, [id number], TSCR, DAGT ####MERIDEN BLOOD BANKCLIA [id number] [address] [place] DAGT, ANTI-IGG Positive Normal [facility] Comment on above: Order Comment: Speci men Type: BLOOD SPECIMENOrdering Facility: [facility] Address: [address] [place] [address] Performed By: #### % MARYANN, [id number], TSCR, DAGT ####HERRERA BLOOD BANKCLIA [id number] [address] [place] DAGT, POLYSPECIFIC AHG Positive Normal [facility] Comment on above: Order Comment: Speci men Type: BLOOD SPECIMENOrdering Facility: [facility] Address: [address] [place] [address] Performed By: #### % MARYANN, [id number], TSCR, DAGT ####[facility]EN BLOOD BANKCLIA [id number] [address] CRP SerPl-mCncon 01-24-2025 CRP [Mass/Vol] 4.8 mg/dL High <0.9 [facility] Comment on above: Order Comment: Speci men Type: BLOOD SPECIMENOrdering Facility: [facility] Address: [address] [place] [address] Performed By: #### 2 4325-3, 1987-10 ####HERRERA LABORATORYCLIA [id number] [address] Comprehensive metabolic 2000 panelon 01-24-2025 Albumin [Mass/Vol] 2.8 g/dL Low 3.9-4.9 [facility] Comment on above: Order Comment: Speci men Type: BLOOD SPECIMENOrdering Facility: [facility] Address: [address] [place] [address] Performed By: #### L [id number], 3040-3, BHB, 215-6, 13702-6 ####HERRERA LABORATORYCLIA [id number] [address] STATES OF [facility] ALP [Catalytic activity/Vol] 84 U/L Normal 38-113 [facility] Comment on above: Order Comment: Speci men Type: BLOOD SPECIMENOrdering Facility: [facility] Address: [address] [place] [address] Performed By: #### L [id number], 3040-3, BHB, 215-6, 81783-8 ####HERRERA LABORATORYCLIA [id number] [address] ALT [Catalytic activity/Vol] 14 U/L Normal 10-54 [facility] Comment on above: Order Comment: Speci men Type: BLOOD SPECIMENOrdering Facility: [facility] Address: [address] [place] [address] Performed By: #### L [id number], 3040-3, BHB, 2157-6, ####MERIDEN LABORATORYCLIA [id number] [place] [address] [place] Anion gap [Moles/Vol] 9 mmol/L Normal 8-15 [facility] Comment on above: Order Comment: Speci men Type: BLOOD SPECIMENOrdering Facility: [facility] Address: [address] [place] [address] Performed By: #### L [id number], 3040-3, BHB, 2156-11, ####MERIDEN LABORATORYCLIA [id number] [place] [address] [place] AST [Catalytic activity/Vol] 20 U/L Normal 14-40 [facility] Comment on above: Order Comment: Speci men Type: BLOOD SPECIMENOrdering Facility: [facility] Address: [address] [place] [address] Performed By: #### L [id number], 3040-3, BHB, 2156-11, ####MERIDEN LABORATORYCLIA [id number] [place] [address] [place] Bilirubin [Mass/Vol] 0.6 mg/dL Normal 0.2-1.3 [facility] Comment on above: Order Comment: Speci men Type: BLOOD SPECIMENOrdering Facility: [facility] Address: [address] [place] [address] Performed By: #### L [id number], 3040-3, BHB, 2156-11, ####MERIDEN LABORATORYCLIA [id number] [place] [address] [place] Calcium [Mass/Vol] 8.3 mg/dL Low 8.5-10.2 [facility] Comment on above: Order Comment: Speci men Type: BLOOD SPECIMENOrdering Facility: [facility] Address: [address] [place] [address] Performed By: #### L [id number], 3040-3, BHB, 2156-11, ####MERIDEN LABORATORYCLIA [id number] [place] [address] [place] Chloride [Moles/Vol] 108 mmol/L High 98-107 [facility] Comment on above: Order Comment: Demarco harris Type: BLOOD SPECIMENOrdering Facility: [facility] Address: [address] [place] [address] Performed By: #### L [id number], 3040-3, BHB, 2156-11, 50722-3 ####MERIDEN LABORATORYCLIA [id number] [place] [address] [place] CO2 [Moles/Vol] 23 mmol/L Normal 22-30 [facility] Comment on above: Order Comment: Demarco harris Type: BLOOD SPECIMENOrdering Facility: [facility] Address: [address] [place] [address] Performed By: #### L [id number], 3040-3, BHB, 2156-11, 20493-7 ####MERIDEN LABORATORYCLIA [id number] [place] [address] [place] Creatinine [Mass/Vol] 1.22 mg/dL Normal 0.73-1.22 [facility] Comment on above: Order Comment: Demarco harris Type: BLOOD SPECIMENOrdering Facility: [facility] Address: [address] [place] [address] Performed By: #### L UT1974, 3040-3, BHB, 2156-11, 19453-8 ####MERIDEN LABORATORYCLIA [id number] [place] [address] [place] eGFRcr SerPlBld CKD-EPI 2020 62 mL/min/1.73m??? Normal >=60 [facility] Comment on above: Order Comment: Demarco harris Type: BLOOD SPECIMENOrdering Facility: [facility] Address: [address] [place] [address] Result Comment: Nancy mated Glomerular Filtration Rate [...] reflect actual GFR. Performed By: #### L [id number], 3040-3, BHB, 2156-11, ####HERRERA LABORATORYCLIA [id number] [place] [address] [place] Glucose [Mass/Vol] 135 mg/dL High 74-99 [facility] Comment on above: Order Comment: Speci men Type: BLOOD SPECIMENOrdering Facility: [facility] Address: [address] [place] [address] Result Comment: The [place] [employer] (ADA) provides guidance for cutoff [...] Standards of Medical Care in Diabetes 2016, [place] [employer]. Diabetes Care. 2016.39(Suppl 1). Performed By: #### L [id number], 3040-3, BHB, 2156-11, ####MERIDEN LABORATORYCLIA [id number] [place] [id number] [place] Potassium [Moles/Vol] 3.9 mmol/L Normal 3.7-5.1 [facility] Comment on above: Order Comment: Speci men Type: BLOOD SPECIMENOrdering Facility: [facility] Address: [address] [place] [id number] Performed By: #### L [id number], 3040-3, BHB, 2156-11, ####MERIDEN LABORATORYCLIA [id number] [place] [id number] [place] Protein [Mass/Vol] 5.5 g/dL Low 6.3-8.0 [facility] Comment on above: Order Comment: Speci men Type: BLOOD SPECIMENOrdering Facility: [facility] Address: [address] [place] [address] Performed By: #### L [id number], 3040-3, BHB, 2156-11, 93429-0 ####MERIDEN LABORATORYCLIA [id number] [place] [id number] [place] [facility] Sodium [Moles/Vol] 140 mmol/L Normal 136-144 [facility] Comment on above: Order Comment: Speci men Type: BLOOD SPECIMENOrdering Facility: [facility] Address: [address] [place] [address] Performed By: #### L [id number], 3040-3, BHB, 2156-11, 29859-9 ####MERIDEN LABORATORYCLIA [id number] [address] [place] Urea nitrogen [Mass/Vol] 28 mg/dL High 9-24 [facility] Comment on above: Order Comment: Speci men Type: BLOOD SPECIMENOrdering Facility: [facility] Address: [address] [place] [address] Performed By: #### L [id number], 3040-3, BHB, 2156-11, 69091-8 ####MERIDEN LABORATORYCLIA [id number] [place] [id number] [facility] [place] ED PROV NOTEon 01-24-2025 ED PROV NOTE Normal [facility] Folate SerPl-mCncon 01-25-20 25 Folate [Mass/Vol] ng/mL Normal >4.7 [facility] Comment on above: Order Comment: Speci [facility] Type: BLOOD SPECIMENOrdering Facility: [facility] Address: [address] [place] [address] Result Comment: A re sult of > 20 ng/mL is not necessarily indicative of a pathologic or treatable condition: it reflects a limitation of the test methodology.Assay reference range: 4.8 to 24.2 ng/mL. Suitable for detection of folate deficiency.Reference:Folate III (Folate III) [package insert V 1.0 Mexican]. [facility], [place], [place]: April 2015. Performed By: #### 2 532-0, 2132-9, 2284-8, 3034-6, 4542-7 ####[facility] LABCLIA [id number] [place] [id number] [place] Gas and Carbon monoxide pane l (BldV)on 01-24-2025 Base excess Calc (BldV) [Moles/Vol] 1 mmol/L Normal 0-2 [facility] Comment on above: Order Comment: Speci men Type: VENOUS BLOOD SPECIMENOrdering Facility: [facility] Address: [address] [place] [address] Performed By: #### 2 4344-4 ####[facility] RESPIRATORYVERMONT STATE [facility] [id number] [facility]OS[facility] RESPIRATORY [id number] [address] [address] Calcium.ionized (Bld) [Mass/Vol] 1.14 mmol/L Normal 1.08-1.30 [facility] Comment on above: Order Comment: Speci men Type: VENOUS BLOOD SPECIMENOrdering Facility: [facility] Address: [address] [place] [address] Performed By: #### 2 4344-4 ####[facility] [id number] HOSPITAL RESPIRATORY [id number] [place] [address] Carboxyhemoglobin (BldV) [Mass fraction] 2.3 % High 0.0-2.0 [facility] Comment on above: Order Comment: Speci men Type: VENOUS BLOOD SPECIMENOrdering Facility: [facility] Address: [address] [place] [address] Result Comment: Carb oxyhemoglobin Reference Range for Smokers: 2.0-8.0% Performed By: #### 2 4344-4 ####[facility] [id number] [facility]OS[facility] RESPIRATORY [id number] [address] [address] CO2 (BldV) [Partial pressure] 36 mm[Hg] Low 42-55 [facility] Comment on above: Order Comment: Speci men Type: VENOUS BLOOD SPECIMENOrdering Facility: [facility] Address: [address] [place], [place] [address] Performed By: #### 2 4344-4 ####[facility] [id number] [facility] RESPIRATORY [id number] [address] [address] CO2 adjusted to patient's actual temperature (BldV) [Partial pressure] Normal [facility] Comment on above: Order Comment: Speci men Type: VENOUS BLOOD SPECIMENOrdering Facility: [facility] Address: [address] [place], [place] [address] Performed By: #### 2 4344-4 ####HERRERA RESPIRATORYCLIA [id number] [facility]OS[facility] RESPIRATORY [id number] [address] [address] HCO3 (Bld) [Moles/Vol] 25 mmol/L Normal 24-28 [facility] Comment on above: Order Comment: Speci men Type: VENOUS BLOOD SPECIMENOrdering Facility: [facility] Address: [address] [place] [address] Performed By: #### 2 4344-4 ####[facility] RESPIRATORYCLIA [id number] [facility]OSP[facility] RESPIRATORY [id number] [address] [address] Hemoglobin (Bld) [Mass/Vol] 7.8 g/dL Low 13.0-17.0 [facility] Comment on above: Order Comment: Speci men Type: VENOUS BLOOD SPECIMENOrdering Facility: [facility] Address: [address] [place] [address] Performed By: #### 2 4344-4 ####MER[facility]EN RESPIRATORYCLIA [id number] [facility]OSP[facility] RESPIRATORY [id number] [address] [address] Lactate [Moles/Vol] 0.6 mmol/L Normal 0.5-2.2 [facility] Comment on above: Order Comment: Speci men Type: VENOUS BLOOD SPECIMENOrdering Facility: [facility] Address: [address] [place] [address] Performed By: #### 2 4344-4 ####MERIDEN RESPIRATORYCLIA [id number] [facility] RESPIRATORY [id number] [address] [address] Methemoglobin (Bld) [Mass fraction] % Normal 0.0-1.5 [facility] Comment on above: Order Comment: Speci men Type: VENOUS BLOOD SPECIMENOrdering Facility: [facility] Address: [address] [place] [address] Performed By: #### 2 4344-4 ####HERRER[facility] RESPIRATORYCLIA [id number] [facility]OS[facility] RESPIRATORY [id number] [address] [address] O2 THERAPY RA=Room Air Normal [facility] Comment on above: Order Comment: Speci men Type: VENOUS BLOOD SPECIMENOrdering Facility: [facility] Address: [address] [place] [address] Performed By: #### 2 4344-4 ####HERRERA RESPIRATORYIA [id number] HOSPITAL RESPIRATORY [id number] [address] [address] Oxygen (BldV) [Partial pressure] 34 mm[Hg] Low 35-45 [facility] Comment on above: Order Comment: Speci men Type: VENOUS BLOOD SPECIMENOrdering Facility: [facility] Address: [address] [place] [address] Performed By: #### 2 4344-4 ####HERRERA RESPIRATORYIA [id number] [facility] RESPIRATORY [id number] [address] [address] Oxygen adjusted to patient's actual temperature (BldV) [Partial pressure] [facility] Comment on above: Order Comment: Speci men Type: VENOUS BLOOD SPECIMENOrdering Facility: [facility] Address: [address] [place] [address] Performed By: #### 2 4344-4 ####[facility]ATORYVERMONT [facility] [id number] HOSP[facility] RESPIRATORY [id number] [address] [address] Oxygen saturation in Venous blood 64 % Normal 60-85 [facility] Comment on above: Order Comment: Speci men Type: VENOUS BLOOD SPECIMENOrdering Facility: [facility] Address: [address] [place] [address] Performed By: #### 2 4344-4 ####HERRERA RESPIRATORYIA [id number] HOSPITAL RESPIRATORY [id number] [address] [address] Oxyhemoglobin (BldV) [Mass fraction] 62 % Normal 60-85 [facility] Comment on above: Order Comment: Speci men Type: VENOUS BLOOD SPECIMENOrdering Facility: [facility] Address: [address] [place] [id number] Performed By: #### 2 4344-4 ####HERRERA RESPIRATORYCLIA [id number] HOSPITAL RESPIRATORY [id number] [address] [address] pH (BldV) 7.45 [pH] High 7.32-7.42 [facility] Comment on above: Order Comment: Speci men Type: VENOUS BLOOD SPECIMENOrdering Facility: [facility] Address: [address] [place] [address] Performed By: #### 2 4344-4 ####MERIDEN RESPIRATORYIA [id number] [facility]OSP[facility] RESPIRATORY [id number] [address] [address] pH adjusted to patient's actual temperature (BldV) Normal [facility] Comment on above: Order Comment: Speci men Type: VENOUS BLOOD SPECIMENOrdering Facility: [facility] Address: [address] [place] [address] Performed By: #### 2 4344-4 ####MERIDEN RESPIRATORYIA [id number] [facility]OS[facility] RESPIRATORY [id number] [address] [address] Potassium [Moles/Vol] 3.5 mmol/L Normal 3.5-5.0 [facility] Comment on above: Order Comment: Speci men Type: VENOUS BLOOD SPECIMENOrdering Facility: [facility] Address: [address] [place] [address] Performed By: #### 2 4344-4 ####H[facility]ER[facility] RESPIRATORYCLIA [id number] HOSP[facility] RESPIRATORY [id number] [address] [address] HIGH SENSITIVITY TROPONIN T (INITIAL)on 01-24-2025 Troponin T.cardiac High sensitivity method [Mass/Vol] 58 ng/L High <12 [facility] Comment on above: Order Comment: Speci men Type: BLOOD SPECIMENOrdering Facility: [facility] Address: [address] [place] [address] Performed By: #### L [id number], 3040-3, BHB, 2157-6, 13646-4 ####[facility] LABORATORYCLIA [id number] [place] [address] [place] HIGH SENSITIVITY TROPONIN T (SECOND)on 01-24-2025 Troponin T.cardiac High sensitivity method [Mass/Vol] 53 ng/L High <12 [facility] Comment on above: Order Comment: Speci men Type: BLOOD SPECIMENOrdering Facility: [facility] Address: [address] [place] [address] Performed By: #### L [id number] ####MERIDEN LABORATORYCLIA [id number] [place] [address] [facility] HIGH SENSITIVITY TROPONIN T (THIRD) 3 HRS AFTER INITIALon 01-24-2025 Troponin T.cardiac High sensitivity method [Mass/Vol] 46 ng/L High <12 [facility] Comment on above: Order Comment: Speci men Type: BLOOD SPECIMENOrdering Facility: [facility] Address: [address] [place] [address] Performed By: #### L [id number] ####MER[facility] LABORATORYCLIA [id number] [place] [address] [place] HISTORY PHYSICALon HISTORY PHYSICAL Normal [facility] Haptoglob SerPl-mCncon 01-24 Haptoglobin [Mass/Vol] 124 mg/dL Normal 31-238 [facility] Comment on above: Order Comment: Speci men Type: BLOOD SPECIMENOrdering Facility: [facility] Address: [address] [place] [address] Performed By: #### 2 532-0, 2132-9, 2284-8, 3034-6, 4542-7 ####[facility] LABCLIA [id number] [place] [id number] [place] Hepatic function 2000 panelo n 01-24-2025 Albumin [Mass/Vol] 2.4 g/dL Low 3.9-4.9 [facility] Comment on above: Order Comment: Speci men Type: BLOOD SPECIMENOrdering Facility: [facility] Address: [address] [place] [address] Performed By: #### 2 4324-08, 1987-10 ####HERRER[facility] LABORATORYCLIA [id number] [place] [address] [place] ALP [Catalytic activity/Vol] 79 U/L Normal 38-113 [facility] Comment on above: Order Comment: Speci men Type: BLOOD SPECIMENOrdering Facility: [facility] Address: [address] [place] [id number] Performed By: #### 2 4324-08, 1987-10 ####HERRER[facility] LABORATORYCLIA [id number] [place] [address] [place] ALT [Catalytic activity/Vol] 16 U/L Normal 10-54 [facility] Comment on above: Order Comment: Speci men Type: BLOOD SPECIMENOrdering Facility: [facility] Address: [address] [place] [address] Performed By: #### 2 4324-08, 1987-10 ####HERRERA LABORATORYCLIA [id number] [address] STATES [facility] AST [Catalytic activity/Vol] 26 U/L Normal 14-40 [facility] Comment on above: Order Comment: Speci men Type: BLOOD SPECIMENOrdering Facility: [facility] Address: [address] [place] [address] Performed By: #### 2 4324-08, 1987-10 ####HERRERA LABORATORYCLIA [id number] [place], [place] [id number] [place] [address] [place] Bilirubin [Mass/Vol] 0.5 mg/dL Normal 0.2-1.3 [facility] Comment on above: Order Comment: Speci men Type: BLOOD SPECIMENOrdering Facility: [facility] Address: [address] [place] [address] Performed By: #### 2 4324-08, 1987-10 ####HERRER[facility] LABORATORYCLIA [id number] [address] Bilirubin.conjugated [Mass/Vol] 0.2 mg/dL Normal <0.3 [facility] Comment on above: Order Comment: Speci men Type: BLOOD SPECIMENOrdering Facility: [facility] Address: [address] [place] [address] Performed By: #### 2 4325-3, 1987-10 ####[facility] LABORATORYCLIA [id number] [place] [address] [place] Protein [Mass/Vol] 4.9 g/dL Low 6.3-8.0 [facility] Comment on above: Order Comment: Speci men Type: BLOOD SPECIMENOrdering Facility: [facility] Address: [address] [place] [address] Performed By: #### 2 4325-3, 1987-10 ####[facility] LABORATORYCLIA [id number] [place] [address] [place] LDH SerPl-cCncon 01-24-2025 LDH [Catalytic activity/Vol] 367 U/L High 135-225 [facility] Comment on above: Order Comment: Speci men Type: BLOOD SPECIMENOrdering Facility: [facility] Address: [address] [place] [address] Performed By: #### 2 532-0, 2132-9, 2284-8, 3034-6, 4542-7 ####[facility] LABCLIA [id number] [place] [id number] [place] Lipase SerPl-cCncon 01-25-20 25 Lipase [Catalytic activity/Vol] 32 U/L Normal 16-61 [facility] Comment on above: Order Comment: Speci men Type: BLOOD SPECIMENOrdering Facility: [facility] Address: [address] [place] [address] Performed By: #### L RS0247, 3040-3, BHB, 2157-6, 75892-4 ####[facility] LABORATORYCLIA [id number] [place] [address] [place] Magnesium SerPl-mCncon 01-24 Magnesium [Mass/Vol] 1.6 mg/dL Low 1.7-2.3 [facility] Comment on above: Order Comment: Speci men Type: BLOOD SPECIMENOrdering Facility: [facility] Address: [address] [place] [address] Performed By: #### 1 9123-9, 45970-3 ####[facility] LABORATORYCLIA [id number] [place] [address] [place] NT-proBNP [facility] 01-24 Natriuretic peptide.B prohormone N-Terminal [Mass/Vol] 1672 pg/mL High <450 [facility] Comment on above: Order Comment: Speci men Type: BLOOD SPECIMENOrdering Facility: [facility] Address: [address] [place] [address] Performed By: #### 1 9123-9, 35185-9 ####HERRER[facility] LABORATORYCLIA [id number] [place] [address] [place] TOXICOLOGY SCREEN, ROUTINE U RINEon 01-24-2025 Amphetamines Confirm (U) [Mass/Vol] Negative Normal Negative [facility] Comment on above: Order Comment: Speci men Type: URINE SPECIMENOrdering Facility: [facility] Address: [address] [place] [address] Result Comment: Cuto ff threshold at 1000 ng/mL. Performed By: #### U TOX2 ####HERR[facility] LABORATORYCLIA [id number] [place] [address] [place] BARBITURATES, URINE Negative Normal Negative [facility] Comment on above: Order Comment: Speci men Type: URINE SPECIMENOrdering Facility: [facility] Address: [address] [place] [address] Result Comment: Cuto ff threshold at 200 ng/mL. Performed By: #### U TOX2 ####HERRERA LABORATORYCLIA [id number] [place] [address] [place] BENZODIAZEPINES, URINE Negative Normal Negative [facility] Comment on above: Order Comment: Speci men Type: URINE SPECIMENOrdering Facility: [facility] Address: [address] [place] [address] Result Comment: Cuto ff threshold at 200 ng/mL. Performed By: #### U TOX2 ####HERRER[facility] LABORATORYCLIA [id number] [place] [address] [place] Cannabinoids Screen Ql (U) Negative Normal Negative [facility] Comment on above: Order Comment: Speci men Type: URINE SPECIMENOrdering Facility: [facility] Address: [address] [place] [address] Result Comment: Cuto ff threshold at 50 ng/mL. Performed By: #### U TOX2 ####HERRERA LABORATORYCLIA [id number] [address] [place] Cocaine Ql (U) Negative Normal Negative [facility] Comment on above: Order Comment: Speci men Type: URINE SPECIMENOrdering Facility: [facility] Address: [address] [place] [address] Result Comment: Cuto ff threshold at 300 ng/mL. Performed By: #### U TOX2 ####HERRERA LABORATORYCLIA [id number] [address] [place] Ethanol (U) [Mass/Vol] <11 Normal <11 [facility] Comment on above: Order Comment: Speci men Type: URINE SPECIMENOrdering Facility: [facility] Address: [address] [place] [address] Performed By: #### U TOX2 ####HERRERA LABORATORYCLIA [id number] [address] fentaNYL Screen Ql (U) Negative Normal Negative [facility] Comment on above: Order Comment: Speci men Type: URINE SPECIMENOrdering Facility: [facility] Address: [address] [place] [address] Result Comment: Cuto ff threshold at 5 ng/mL. Performed By: #### U TOX2 ####HERRERA LABORATORYCLIA [id number] [address] [place] Opiates Screen Ql (U) Negative Normal Negative [facility] Comment on above: Order Comment: Speci men Type: URINE SPECIMENOrdering Facility: [facility] Address: [address] [place] [address] Result Comment: Cuto ff threshold at 300 ng/mL. Performed By: #### U TOX2 ####HERRERA LABORATORYCLIA [id number] [address] oxyCODONE cutoff Screen (U) [Mass/Vol] Negative Normal Negative [facility] Comment on above: Order Comment: Speci men Type: URINE SPECIMENOrdering Facility: [facility] Address: [address] [place] [address] Result Comment: Cuto ff threshold at 100 ng/mL. Performed By: #### U TOX2 ####HERRERA LABORATORYCLIA [id number] [address] Phencyclidine Ql (U) Negative Normal Negative [facility] Comment on above: Order Comment: Speci men Type: URINE SPECIMENOrdering Facility: [facility] Address: [address] [place] [address] Result Comment: Cuto ff threshold at 25 ng/mL. Performed By: #### U TOX2 ####HERRERA LABORATORYCLIA [id number] [address] TYPE + SCREENon 01-24-2025 ABO A Normal [facility] Comment on above: Order Comment: Speci men Type: BLOOD SPECIMENOrdering Facility: [facility] Address: [address] [place] [address] Result Comment: Danielle ected result: Previously reported as Invalid on 01/24/2025 at 1:31 PM EDT. Performed By: #### % MARYANN, [id number], TSCR, DAGT ####[facility] BLOOD BANKCLIA [id number] [address] Rh Nom (Bld) Positive Normal [facility] Comment on above: Order Comment: Speci men Type: BLOOD SPECIMENOrdering Facility: [facility] Address: [address] [place] [address] Performed By: #### % MARYANN, [id number], TSCR, DAGT ####[facility] BLOOD BANKCLIA [id number] [address] TYPE AND SCREEN EXPIRATION 01/27/2025 23:59 Normal [facility] Comment on above: Order Comment: Speci men Type: BLOOD SPECIMENOrdering Facility: [facility] Address: [address] [place] [address] Performed By: #### % MARYANN, [id number], TSCR, DAGT ####HERRER[facility] BLOOD BANKCLIA [id number] [place] [address] [place] Transferrin SerPl-mCncon Transferrin [Mass/Vol] 119 mg/dL Low 200-360 [facility] Comment on above: Order Comment: Speci men Type: BLOOD SPECIMENOrdering Facility: [facility] Address: [address] [place] [address] Performed By: #### 2 532-0, 2132-9, 2284-8, 3034-6, 4542-7 ####[facility] LABCLIA [id number] [place] [address] [place] Urinalysis complete panel (U )on 01-24-2025 Bilirubin Ql (U) Negative Normal Negative [facility] Comment on above: Order Comment: Speci men Type: URINE SPECIMENOrdering Facility: [facility] Address: [address] [place] [address] Performed By: #### 2 4356-8 ####HERRER[facility] LABORATORYCLIA [id number] [place] [address] [place] Clarity (Unsp spec) Clear Normal Clear [facility] Comment on above: Order Comment: Speci men Type: URINE SPECIMENOrdering Facility: [facility] Address: [address] [place] [address] Performed By: #### 2 4356-8 ####HERRERA LABORATORYCLIA [id number] [address] [place] Color (U) Yellow Normal Yellow [facility] Comment on above: Order Comment: Speci men Type: URINE SPECIMENOrdering Facility: [facility] Address: [address] [place] [address] Performed By: #### 2 4356-8 ####HERRER[facility] LABORATORYCLIA [id number] [place] [address] [place] Epithelial cells LM.HPF (Urine sed) [#/Area] Few Normal [facility] Comment on above: Order Comment: Speci men Type: URINE SPECIMENOrdering Facility: [facility] Address: [address] [place] [address] Performed By: #### 2 4356-8 ####HERRER[facility] LABORATORYCLIA [id number] [place] [address] [place] [facility] [place] Glucose Test strip (U) [Mass/Vol] Negative Normal Negative [facility] Comment on above: Order Comment: Speci men Type: URINE SPECIMENOrdering Facility: [facility] Address: [address] [place] [address] Performed By: #### 2 4356-8 ####HERRER[facility] LABORATORYCLIA [id number] [place] [address] [place] Hemoglobin Ql (U) Negative Normal Negative [facility] Comment on above: Order Comment: Speci men Type: URINE SPECIMENOrdering Facility: [facility] Address: [address] [place] [address] Performed By: #### 2 4356-8 ####HERRER[facility] LABORATORYCLIA [id number] [address] STATES [facility] Ketones Ql (U) Negative Normal Negative [facility] Comment on above: Order Comment: Speci men Type: URINE SPECIMENOrdering Facility: [facility] Address: [address] [place] [address] Performed By: #### 2 4356-8 ####HERRER[facility] LABORATORYCLIA [id number] [address] [place] [facility] Leukocyte esterase Test strip Ql (U) Negative Normal Negative [facility] Comment on above: Order Comment: Speci men Type: URINE SPECIMENOrdering Facility: [facility] Address: [address] [place] [address] Performed By: #### 2 4356-8 ####HERRER[facility] LABORATORYCLIA [id number] [place] [address] [place] Nitrite Ql (U) Negative Normal Negative [facility] Comment on above: Order Comment: Speci men Type: URINE SPECIMENOrdering Facility: [facility] Address: [address] [place] [address] Performed By: #### 2 4356-8 ####HERRER[facility] LABORATORYCLIA [id number] [address] [place] pH (U) 6.0 [pH] Normal 5.0-8.0 [facility] Comment on above: Order Comment: Speci men Type: URINE SPECIMENOrdering Facility: [facility] Address: [address] [place] [address] Performed By: #### 2 4356-8 ####HERRER[facility] LABORATORYCLIA [id number] [address] Protein (U) [Mass/Vol] 1+ Abnormal Negative [facility] Comment on above: Order Comment: Speci men Type: URINE SPECIMENOrdering Facility: [facility] Address: [address] [place] [address] Performed By: #### 2 4356-8 ####HERRER[facility] LABORATORYCLIA [id number] [address] [place] [facility] RBC LM.HPF (Urine sed) [#/Area] 0-3 /HPF Normal 0-3 /HPF [facility] Comment on above: Order Comment: Speci men Type: URINE SPECIMENOrdering Facility: [facility] Address: [address] [place] [address] Performed By: #### 2 4356-8 ####HERRER[facility] LABORATORYCLIA [id number] [address] Specific gravity (U) [Rel density] 1.020 Normal 1.005-1.03 0 [facility] Comment on above: Order Comment: Speci men Type: URINE SPECIMENOrdering Facility: [facility] Address: [address] [place] [address] Performed By: #### 2 4356-8 ####HERRER[facility] LABORATORYCLIA [id number] [address] Urobilinogen Ql (U) 1.0 EU/dL Normal 0.2-1.0 EU/dL [facility] Comment on above: Order Comment: Speci men Type: URINE SPECIMENOrdering Facility: [facility] Address: [address] [place] [address] Performed By: #### 2 4356-8 ####HERRER[facility] LABORATORYCLIA [id number] [address] [place] WBC LM.HPF (Urine sed) [#/Area] 0-5 /HPF Normal 0-5 /HPF [facility] Comment on above: Order Comment: Speci men Type: URINE SPECIMENOrdering Facility: [facility] Address: [address] [place] [address] Performed By: #### 2 4356-8 ####[facility] LABORATORYCLIA [id number] [place] [address] [place] Vit B12 SerPl-mCncon 025 Cobalamin (Vitamin B12) [Mass/Vol] 1291 pg/mL High 232-1245 [facility] Comment on above: Order Comment: Speci men Type: BLOOD SPECIMENOrdering Facility: [facility] Address: [address] [place] [address] Performed By: #### 2 532-0, 2132-9, 2284-8, 3034-6, 4542-7 ####[facility] LABCLIA [id number] [place] [address] [place] XR CHEST 1V FRONTAL PORTon 0 01-24-2025 XR CHEST 1V FRONTAL PORT Normal [facility] GLUCOSE, BLOOD (POC)on 01-22 Glucose [Mass/Vol] 230 mg/dL Abnormal 74 - 99 mg/dL [facility] Comment on above: Location:[facility] shannen, [address] [place] [address], [facility] The Accu-Chek Inform II glucose meter [...] Interpretation and review of laboratory results Abnormal [facility] NM PET/CT SKULL-THIGH INITon 01-22-2025 NM PET/CT SKULL-THIGH INIT Normal [facility] PET+CT Guidance for localiza tion of tumor [...] uptake unlikely to be related to lymphoma Mine Motor Operator: MICEHLE Transcribe Date/Time: Jan 22 2025 1:00P Dictated by : SON SHERIDAN MD This examination was interpreted and the report reviewed and electronically signed by: SON SHERIDAN MD on Jan 22 2025 1:26PM [facility] DIVISION OF RADIOLOGY * * *Final Report* * * DATE OF EXAM: Jan 22 2025 12:26PM [facility] 0060 - NM PET/CT SKULL-THIGH INIT / [...] * Uptake Time: 55 minutes * Radiopharmaceutical: M03-Urvzsovvfooakyddmx (FDG) COMPARISON: No previous FDG PET/CT available [...] radiotracer avid lesion. DIVISION OF RADIOLOGY Provider, [facility] - 01/22/2025 * * *Final Report* * * DATE OF EXAM: Jan 22 2025 12:26PM [facility] 0060 - NM PET/CT SKULL-THIGH INIT / [...] * Uptake Time: 55 minutes * Radiopharmaceutical: M52-Wynxcvyapodwmijwuw (FDG) COMPARISON: No previous FDG PET/CT available [...] Uptake above media (more content not included)... [facility] Radiology Study observation (narrative) [facility] PET+CT Guidance for localiza tion of tumor of Skull base to mid-thigh-- W 18F-FDG IVOrdered By: Ccf Provider on 01-22-2025 [facility] CNPNon 01-20-2025 CNPN Normal [facility] ALLIED HEALTHon 01-19-2025 ALLIED HEALTH [facility] B-CELL LYMPHOMA, NGSon 01-19 ADDITIONAL INFORMATION (NGSBCL) DNR [facility] Comment on above: Order Comment: Speci men Type: TISSUE SPECIMENOrdering Facility: [facility] Address: [address] [place] [address] Result Comment: B-ce ll Lymphoma, NGS, V was cancelled on 02/06/2025 at10:36; Testing has been cancelled due to insufficient DNAconcentration. Performed By: #### N GSBCL ####[facility] LABCLIA [id number] [place] [address] ADDITIONAL INFORMATION (NGSBCL) None. [facility] Comment on above: Order Comment: Speci men Type: TISSUE SPECIMENOrdering Facility: [facility] Address: [address] [place] [address] Performed By: #### N GSBCL ####[facility] LABCLIA [id number] [place] [address] CLINICAL TRIALS (NGSBCL) DNR [facility] Comment on above: Order Comment: Speci men Type: TISSUE SPECIMENOrdering Facility: [facility] Address: [address] [place] [address] Result Comment: B-ce ll Lymphoma, NGS, V was cancelled on 02/06/2025 at10:36; Testing has been cancelled due to insufficient DNAconcentration. Performed By: #### N GSBCL ####[facility] LABCLIA [id number] [place] [address] CLINICAL TRIALS (NGSBCL) SEE NOTE [facility] Comment on above: Order Comment: Speci men Type: TISSUE SPECIMENOrdering Facility: [facility] Address: [address] [place] [address] Result Comment: Info rmation regarding possible clinical trials for thispatient can be found at the following sites:1 ). ClinicalTrials.gov:http://clinicaltrials.gov/ct2/search/advanc ed2). [facility]:http://www.pomaria.[facility]/research/clinical-trials3). National Cancer [place]:http://www.cancer.gov/clinicaltrials/search4). The Leukemia and Lymphoma Society's Clinical TrialSupport Center:https://www.hematology.org/education/clinicians/clinica o-ylczg-cwljogr-center Performed By: #### N GSBCL ####[facility] LABCLIA [id number] [place] [address] DISCLAIMER (NGSBCL) DNR [facility] Comment on above: Order Comment: Speci men Type: TISSUE SPECIMENOrdering Facility: [facility] Address: [address] [place] [address] Result Comment: B-ce ll Lymphoma, NGS, V was cancelled on 02/06/2025 at10:36; Testing has been cancelled due to insufficient DNAconcentration. Performed By: #### N GSBCL ####[facility] LABCLIA [id number] [place] [address] DISCLAIMER (NGSBCL) SEE NOTE [facility] Comment on above: Order Comment: Speci men Type: TISSUE SPECIMENOrdering Facility: [facility] Address: [address] [place] [address] Result Comment: CLIN ICAL DISCLAIMERMutation calls detected [...] as very largeinsertion/deletion events, copy number alterations (RURAL MAIL CARRIER)and gene translocation events are not detected by thisassay. Performed By: #### N GSBCL ####[facility] LABCLIA [id number] [place] [address] INDICATION FOR TEST (NGSBCL) DNR [facility] Comment on above: Order Comment: Speci men Type: TISSUE SPECIMENOrdering Facility: [facility] Address: [address] [place] [address] Performed By: #### N GSBCL ####[facility] LABCLIA [id number] [place] [address] INDICATION FOR TEST (NGSBCL) B-CELL Normal [facility] Comment on above: Order Comment: Speci men Type: TISSUE SPECIMENOrdering Facility: [facility] Address: [address] [place], [place] [address] Performed By: #### N GSBCL ####[facility] LABCLIA [id number] [place] [id number] INTERPRETATION (NGSBCL) DNR Normal M [facility] Comment on above: Order Comment: Speci men Type: TISSUE SPECIMENOrdering Facility: [facility] Address: [address] [place], [place] [address] Result Comment: B-ce ll Lymphoma, NGS, V was cancelled on 02/06/2025 at10:36; Testing has been cancelled due to insufficient DNAconcentration. Performed By: #### N GSBCL ####[facility] LABCLIA [id number] [place] [address] INTERPRETATION (NGSBCL) SEE NOTE Normal M [facility] Comment on above: Order Comment: Speci men Type: TISSUE SPECIMENOrdering Facility: [facility] Address: [address] [place], [place] [address] Result Comment: Thes e results are considered preliminary and requirecomplete integration with the concurrent pathology [id number] (Lymph node, left supraclavicular) for finalinterpretation. The result should NOT be interpreted inisolation for the purposes of diagnosis or clinicalmanagement.1. JOY: Chr11(GRCh37):g.[id number];NM_000051.3(JOY):c.217_ 218del; p.Afu16Tfylu*26Normal Gene/Protein Function: The JOY gene, located yl60f79.3, encodes the serine/threonine-protein kinase ataxiatelangiectasia mutated (JOY) which belongs to thephosphatidylinositol-3 kinase (PI3K) family. JOY is a coreregulator of the DNA damage response (DDR) pathway andmediates cell cycle arrest in response to DNA damage toenable repair of double-stranded DNA breaks and/orapoptosis through phosphorylation involving extensiveprotein networks (e.g., JOY/Chk2/p53 pathway) (Daniel etal., 2007, 93611577). Additional downstream effects includeheterochromatin DNA repair and chromatin remodeling,function in a spindle checkpoint, proteintranscription/translation, maintenance of cell homeostasis(insulin signaling and responses to hyperthermia, hypoxia,and hypotonic stress), and others (Leona et al., 2015,61969101).Mutation Effect: The c.217_218del (p.E73Mfs*26) frameshiftvariant results in premature protein truncation with lossof the several functional domains and is thereforepredicted to be inactivating (Fransisco et al., 2020, 53349725).In addition, this variant and has been reported as agermline variant in individuals diagnosed withataxia-telangiectasia (Li et al., 2000, 24349880; Gilmore etal., 2012, 42172824) and as a somatic variant in lymphoidneoplasms (https://cancer.diane.ac.uk/cosmic).Itwx-ss-onnmwnlh mutations, reduced kinase activity, and/orreduced expression of JOY have been associated with thedevelopment of cancer through inhibition of apoptosis andcell cycle arrest (Leona et al., 2015, 86567347).Therefore, this variant is considered pathogenic.Disease Association: Somatic JOY mutations are estimated in11-16% of chronic lymphocytic leukemia/small lymphocyticlymphoma (CLL/SLL) patients, 30-40% CLL/SLL with 11qdeletion, and uncommonly co-occur with a TP53 mutation(<5%) (Donis et al., 2005, 32570794; 2007, 70783037; Cret al., 2016, 39685642; Pau et al., 2013, 24281725).In earlier studies of CLL/SLL, JOY mutations showedassociation with reduced overall survival (OS) andtreatment-free survival independent of the IGHV mutationalstatus (Donis et al., 2005, 51107014). The combination ofATM mutation and del(11q) was associated with inferiorprogression-free survival (PFS) and OS following alkylatingagent and purine analog therapies (Skpatrick et al., 2012,91399413; Donis et al., 2007, 56978541). More recentstudies reported association with a shorter time to firsttreatment independent of IGHV mutational status and nosignificant OS impact (Selvineu et al., 2016, 98116473).CLL/SLL patients with JOY mutations showed a lower overallresponse rate (HYDE) with obinutuzumab+chlorambucil (GCIb)therapy and no difference in complete remission (CR) andORR with obinutuzumab+venetoclax (VenG) therapy or PFS forboth therapies (Tausch et al., 2020, 85371486). ATMmutations have also been described in 40-60% mantle celllymphoma and a subset of diffuse large B-cell lymphoma andT-prolymphocytic lymphoma, although their independentprognostic impact has not been established (Hill et al.,2020, 21698658; Adrienne et al., 2020, 67350180; Nitesh etal., 2022, 02481535; Danae et al., 2002, 06353345; Qinet al., 2021, 95533052; Elder et al., 2017 95333859;Chapuy et al., 2020, 77996618).Therapeutic Implications: There are currently no clinicallyapproved therapies that target JOY mutations in cancerpatients. Cancers with JOY deficiency are increasinglysensitive to DNA damaging agents. The FDA has approved PARPinhibitor olaparib in solid tumors. As a radiosensitizingand/or chemosensitizing agent, PARP inhibitor has shownsynthetic lethality in JYO-deficient neoplastic B-cells inpreclinical studies (Fraser et al., 2014, 91413751;Villa et al., 2010, 00291018; 2012, 43807863; Westonet al., 2010, 88966578). Similar findings have beenreported for ART inhibitor (Heaven et al., 2015,64512427). Data from several prospective clinical trials ofcheckpoint inhibitors showed that DDR gene alterations(gkxo-te-fjijpqzu) including JOY mutations wereindependently associated with response to PD-1/PD-M8xzzojxax in metastatic urothelial carcinoma patients (Thereset al., 2018, 25413673). Additional information aboutavailable clinical trials can be found atClinicalTrials.gov.2. BIRC3: Chr11(GRCh37):g.[id number]>G;NM_001165.4(BIRC3):c.1322C>G; p.Cta766*Normal Gene/Protein Function: The BIRC3 gene, located ys97f84.2, encodes the protein Baculoviral IAP RepeatContaining 3 [...] of NF-kB inducing kinase (ANITA,also known as HST1T57). It acts as a positive regulator forthe canonical and non-canonical NF-kB pathways upon ligandengagement with the TNF receptor superfamily (Avery-Earl Met al., 2010, 93412961).Mutation Effect: The c.1322C>G (p.S441*) nonsense variantis predicted to result in loss/disruption of the ringdomain, which is the functional domain possessing the V7bjqdqidur ligase activity. In vitro functional data of thisvariant demonstrated abrogated ability of the BIRC proteinto effectively ubiquitinate and target proteins forproteasomal degradation, including ANITA, conferringtransforming potential (Annette et al., 2014, 12459064).Consistently, constitutive activation of the eem-egteofsdfDS-bT pathway was observed in primary tumor cells fromBICR3-mutated chronic lymphocytic leukemia (CLL) andsplenic marginal zone lymphoma (SMZL) patients (Liliana etal., 2011, 79135929; 2012, 65403913). In addition, p.S441*has been reported as a somatic mutation in lymphoidneoplasms (https://cancer.diane.ac.uk/cosmic). Therefore,it is considered pathogenic.Disease Association: BICR3 mutations have been reported inapproximately 3-5% of chronic lymphocytic leukemia/smalllymphocytic lymphoma (CLL/SLL) patients and 24% offludarabine-resistant patients with an overall inconclusiveimpact on clinical outcomes (Liliana et al., 2012, [id number];Cr et al., 2016, [id number]). They are associated withchemo-refractoriness and/or inferior response tofludarabine, FCR (fludarabine, cyclophosphamide, andrituximab), BR (bendamustine, rituximab), and GCIb(obinutuzumab plus chlorambucil) therapies. However, thenegative impact was not observed with the noveltherapeutics of VenG (venetoclax, obinutuzumab) and VenR(venetoclax, rituximab) (Ford et al., 2012, [id number]; Dominiquet al., 2020, [id number]; Tavo et al., 2020, [id number];Taulizzy et al., 2020, [id number]). BIRC3 mutations have alsobeen described in approximately 5-6% of splenic marginalzone lymphoma and 5-10% of mantle cell lymphoma withoutclear documentation of impact on outcomes (Ford et al.,2011, [id number]; Annette et al., 2014, [id number]; Macario etal., 2016, [id number]; Aniket et al., 2020, [id number]).Therapeutic Implications: There is currently no clinicallyapproved therapy that targets BIRC3 mutations in cancerpatients. Smac-mimetics (SM) have been designed to bind andtrigger IAP protein auto-ubiquitinating and proteasomaldegradation. However, their anti-cancer role in the contextof qilu-wi-unxgdgxb BIRC3 mutations is uncertain. In vitrostudies have shown increased expression of BCL-2 proteinfamily members in cell lines and primary CLL cells withlow/absent BICR3 expression which demonstrated highersensitivity to venetoclax (Moniqueer et al., 2018,[id number]). Tumors harboring gkrt-ov-syyxcpwq BICR3 geneticchanges are associated with activated non-canonical NF-kBpathway through stabilization of ANITA. Preclinical studiessupport the anti-tumor potential of ANITA inhibitors andNF-kB downstream target inhibitors (Danaeko et al., 2016,39017130; Robert et al., 2014, 14226964). Additionalinformation about available clinical trials can be found atClinicalTrials.gov. Performed By: #### N GSBCL ####[facility] LABCLIA [id number] [place] [address] METHOD SUMMARY (NGSBCL) DNR Normal M [facility] Comment on above: Order Comment: Speci men Type: TISSUE SPECIMENOrdering Facility: [facility] Address: [address] [place] [address] Result Comment: B-ce ll Lymphoma, NGS, V was cancelled on 02/06/2025 at10:36; Testing has been cancelled due to insufficient DNAconcentration. Performed By: #### N GSBCL ####[facility] LABCLIA [id number] [place] [address] METHOD SUMMARY (NGSBCL) SEE NOTE Normal [facility] Comment on above: Order Comment: Speci men Type: TISSUE SPECIMENOrdering Facility: [facility] Address: [address] [place], [place] [address] Result Comment: DNA is extracted from validated specimen sources. Librarypreparation for Next Generation Sequencing (NGS) isperformed followed by probe hybridization and capture.Sequencing of the final sample library is performed on Fusion [employer] instrument. Following bioinformatic processing of thesequencing data, [...] as very large insertion/deletion events,copy number alterations (R[employer]ER) and gene translocation eventsare not detected by this assay.This test was developed and its performance characteristicsdetermined by [facility] in a manner consistent with CLIArequirements. This test has not been cleared or approved bythe U.S. Food and Drug Administration. Performed By: #### N GSBCL ####[facility] LABCLIA [id number] [place] [address] NGSBCL RESULT TNP [facility] Comment on above: Order Comment: Speci men Type: TISSUE SPECIMENOrdering Facility: [facility] Address: [address] [place] [address] Result Comment: B-ce ll Lymphoma, NGS, V was cancelled on 02/06/2025 at10:36; Testing has been cancelled due to insufficient DNAconcentration.Test Performed by:[address] [address] Director: Quiana Melendrez Ph.D.; CLIA# [id number] Performed By: #### N GSBCL ####[facility] LABCLIA [id number] [place] [address] NGSBCL RESULT See Interpretation Normal [facility] Comment on above: Order Comment: Speci men Type: TISSUE SPECIMENOrdering Facility: [facility] Address: [address] [place] [address] Performed By: #### N GSBCL ####[facility] LABCLIA [id number] [place] [address] PANEL GENE LIST (NGSBCL) DNR [facility] Comment on above: Order Comment: Speci men Type: TISSUE SPECIMENOrdering Facility: [facility] Address: [address] [place] [address] Result Comment: B-ce ll Lymphoma, NGS, V was cancelled on 02/06/2025 at10:36; Testing has been cancelled due to insufficient DNAconcentration. Performed By: #### N GSBCL ####[facility] LABCLIA [id number] [place] [address] PANEL GENE LIST (NGSBCL) SEE NOTE Normal [facility] Comment on above: Order Comment: Speci men Type: TISSUE SPECIMENOrdering Facility: [facility] Address: [address] [place] [address] Result Comment: ARAF (NM_001654.4) Exons 7, 10-16, [...] TCF3 (NM_001136139.4) Exons 18-19, TNFAIP3(NM_006290.3) Exons 2-9, KJDUSD73 (NM_003820.3) Exons 1-8,TP53 (NM_000546.4) Exons 4-11, XPO1 (NM_003400.3) Kxytg27-52.For some genes, the transcript IDs used in the analysis maynot be the same as in other cancer mutation databases, suchas COSMIC http:/ /cancer.diane.ac.uk/cosmic Performed By: #### N GSBCL ####[facility] LABCLIA [id number] [place] [address] PATHOGENIC MUTATIONS DETECTED (NGSBCL) DNR [facility] Comment on above: Order Comment: Speci men Type: TISSUE SPECIMENOrdering Facility: [facility] Address: [address] [place] [address] Result Comment: B-ce ll Lymphoma, NGS, V was cancelled on 02/06/2025 at10:36; Testing has been cancelled due to insufficient DNAconcentration. Performed By: #### N GSBCL ####[facility] LABIA [id number] [place] [address] PATHOGENIC MUTATIONS DETECTED (NGSBCL) SEE NOTE [facility] Comment on above: Order Comment: Speci men Type: TISSUE SPECIMENOrdering Facility: [facility] Address: [address] [place] [address] Result Comment: 1. A TM: Chr11(GRCh37):g.[id number];NM_000051.3(JOY):c.217_ 218del; p.Gdu19Vcdgp*26 (81%)2. BIRC3: Chr11(GRCh37):g.227559038F>G;NM_001165.4(BIRC3):c.1322C>G; p.Bes228* (77%)No other pathogenic mutations were detected in the othergenes tested on the panel. See below for Variants ofUnknown Significance and Additional Information. Pleasesee the section of Panel Gene List below for the completelist of genes tested. Performed By: #### N GSBCL ####[facility] LABCLIA [id number] [place] [address] REVIEWED BY (NGSBCL) DNR [facility] Comment on above: Order Comment: Speci men Type: TISSUE SPECIMENOrdering Facility: [facility] Address: [address] [place] [address] Result Comment: B-ce ll Lymphoma, NGS, V was cancelled on 02/06/2025 at10:36; Testing has been cancelled due to insufficient DNAconcentration. Performed By: #### N GSBCL ####[facility] LABCLIA [id number] [place] [address] REVIEWED BY (NGSBCL) SEE NOTE [facility] Comment on above: Order Comment: Speci men Type: TISSUE SPECIMENOrdering Facility: [facility] Address: [address] [place] [address] Result Comment: RESU LT: Signing Pathologist: Jane Silverman M.D.Test Performed by:[address] Director: Quiana Melendrez Ph.D.; CLIA# [id number] Performed By: #### N GSBCL ####[facility] LABCLIA [id number] [place] [address] Specimen type Nom (Spec) DNR [facility] Comment on above: Order Comment: Speci men Type: TISSUE SPECIMENOrdering Facility: [facility] Address: [address] [place], [place] [address] Performed By: #### N GSBCL ####[facility] LABCLIA [id number] [place] [address] Specimen type Nom (Spec) SEE NOTE [facility] Comment on above: Order Comment: Speci men Type: TISSUE SPECIMENOrdering Facility: [facility] Address: [address] [place] [address] Result Comment: RESU LT: Lymph node,left supraclavicular Performed By: #### N GSBCL ####[facility] LABCLIA [id number] [place] [address] VARIANTS OF UNKNOWN SIGNIFICANCE (NGSBCL) DNR [facility] Comment on above: Order Comment: Speci men Type: TISSUE SPECIMENOrdering Facility: [facility] Address: [address] [place] [address] Result Comment: B-ce ll Lymphoma, NGS, V was cancelled on 02/06/2025 at10:36; Testing has been cancelled due to insufficient DNAconcentration. Performed By: #### N GSBCL ####[facility] LABCLIA [id number] [place] [address] VARIANTS OF UNKNOWN SIGNIFICANCE (NGSBCL) SEE NOTE [facility] Comment on above: Order Comment: Speci [facility] Type: TISSUE SPECIMENOrdering Facility: [facility] Address: [address] [place] [address] Result Comment: None .The VUS variants listed here (with approximate variantallele %) are not sufficiently characterized in the currentliterature and therefore are of uncertain or unknownclinical significance at this time. They are reported herefor future reference in the event they become clinicallysignificant in light of new scientific data. Performed By: #### N GSBCL ####[facility] LABCLIA [id number] [place] [address] FLOW CYTOMETRY FOR LEUKEMIA/ LYMPHOMA (FCLL) REFLEXon 01-19-2025 AMENDED REPORT DETAIL This report is noe ng amended to correct the list of markers employed in this study. There is no change to the final interpretation. [facility] Comment on above: Order Comment: Speci [facility] Type: TISSUE SPECIMENOrdering Facility: [facility] Address: [address] [place] [address] Result Comment: Edit ed results: Previously reported on 01/23/2025 at 11:35 AM EDT. Performed By: #### F CLLRFLX ####[facility] LABCLIA [id number] [place] [address] [place] DIAGNOSIS COMMENT [facility] Comment on above: Order Comment: Speci men Type: TISSUE SPECIMENOrdering Facility: [facility] Address: [address] [place] [address] Result Comment: This test was developed and its performance characteristics determined by [facility]'s Deanne Julio [facility] Pathology and Laboratory Medicine [place] ([facility]). It has not been cleared or approved by the FDA. -[facility] is regulated under CLIA as qualified to perform high-complexity testing. This test is used for clinical purposes. It should not be regarded as investigational or for research. Performed By: #### F CLLRFLX ####[facility] LABCLIA [id number] [address] [place] FLOW CYTOMETRY RESULTS Normal [facility] Comment on above: Order Comment: Speci men Type: TISSUE SPECIMENOrdering Facility: [facility] Address: [address] [place] [address] Result Comment: Spec imen type: lymph nodeMorphology comments: See report [id number].Viability: 100%Results: % total eventsLymphocyte gate: 91High FSC gate: 2Specimen type: Lymph nodeFlow Cytometry Lymphoma ImmunophenotypingMarker Normal Cell Type Result (Lymphocytes)CD5 T-cells EfxkeqbqAW92 B-cell subset UmbcwoyaHX50 B-cells XsvenmkwSY77 B-cells UnmixmrzFE95 B-cells subset GrnckvzpEW67 [place]-leukocyte Positive (bright)CD123 Dendritic Positive (dim)CD200 B-cells [...] AM EDT. Performed By: #### F CLLRFLX ####[facility] LABCLIA [id number] [address] INTERPRETATION Normal [facility] Comment on above: Order Comment: Speci [facility] Type: TISSUE SPECIMENOrdering Facility: [facility] Address: [address] [place] [address] Result Comment: The immunophenotypic findings demonstrate involvement by a CD5 positive B-cell lymphoma. The immunophenotype suggests mantle cell lymphoma. Correlation with the clinical and histopathologic findings is suggested.January 22mendment electronically signed by Tere Walls MD, PhD on 01/29/2025 at 0913 EDT at 1708 EDT Performed By: #### F CLLRFLX ####[facility] [id number] [address] Pathology biopsy report Shaji (Tiss)on 01-19-2025 ADDENDUM 1: [facility] Comment on above: Order Comment: Speci [facility] Type: TISSUE SPECIMENOrdering Facility: [facility] Address: [address] [place] [address] Result Comment: NGS studies attempted on block A1 were canceled due to insufficient DNA concentration. Repeat testing will be attempted on block A3.Addendum electronically signed by Tere Walls MD, PhD on 02/09/2025 at 1315 EDT Performed By: #### 6 6121-5 ####[facility] [id number] [address] [place] ADDENDUM 2: [facility] Comment on above: Order Comment: Speci [facility] Type: TISSUE SPECIMENOrdering Facility: [facility] Address: [address] [place] [address] Result Comment: NGS studies identified pathogenic variants in JOY and BIRC3 as described below. TP53 mutations were not identified.Pathogenic variants:1. JOY: Chr11(GRCh37):g.[id number];NM_000051.3(JOY):c.217_ 218del; p.Dtg68Ogzoo*26 (81%)2. BIRC3: Chr11(GRCh37):g.405321171C>G;NM_001165.4(BIRC3):c.1322C>G; p.Ibi921* (77%)Addendum electronically signed by Tere Walls MD, PhD on 02/24/2025 at 1312 EDT Performed By: #### 6 6121-5 ####[facility] [id number] [place] [id number] [place] AP DISCLAIMER Normal [facility] Comment on above: Order Comment: Speci men Type: TISSUE SPECIMENOrdering Facility: [facility] Address: [address] [place] [address] Result Comment: Krysten redman Developed Test (LDT) Disclaimer:Performance characteristics of immunohistochemical, immunofluorescent, and chromogenic in-situ hybridization tests have been determined by the performing laboratory within [facility]'s [facility] Pathology and Laboratory Medicine Department ([facility], [facility], [facility], [facility], [facility], [facility], or [facility]) in a manner consistent with CLIA requirements. One or more of these tests may not have been cleared or approved by the FDA. [facility] is regulated under CLIA as qualified to perform high-complexity testing. These tests are used for clinical purposes. These should not be regarded as investigational or for research. Positive and negative controls stain appropriately. Performed By: #### 6 6121-5 ####[facility] LABIA [id number] [place] [id number] [place] CASE REPORT Normal [facility] Comment on above: Order Comment: Speci men Type: TISSUE SPECIMENOrdering Facility: [facility] Address: [address] [place] [address] Result Comment: Surg ical Pathology Report Case: [id number] Provider: Carson Barr MD Collected: 01/19/2025 01:22 PMOrdering Location: [facility] Radiology Received: 01/19/2025 02:10 PMPathologist: Tere Walls MD, PhDSpecimen: Lymph Node, Biopsy, Left Supraclavicular Performed By: #### 6 6121-5 ####[facility] LABCLIA [id number] [address], [address] [place] CLINICAL HISTORY Lymphadenopathy. Lef t supraclavicular node biopsied [facility] Comment on above: Order Comment: Speci [facility] Type: TISSUE SPECIMENOrdering Facility: [facility] Address: [address] [place] [address] Performed By: #### 6 6121-5 ####[facility] LABCLIA [id number] [address] [place] [address] [place] DIAGNOSIS COMMENT The morphologic find ings and ancillary studies described below demonstrate involvement by mantle cell lymphoma. This case displays cytologic features of the classic type. NGS studies including TP53 mutations remains pending. An addendum will follow. [facility] Comment on above: Order Comment: Speci [facility] Type: TISSUE SPECIMENOrdering Facility: [facility] Address: [address] [place] [address] Performed By: #### 6 6121-5 ####[facility] LABIA [id number] [address] FINAL DIAGNOSIS [facility] Comment on above: Order Comment: Speci [facility] Type: TISSUE SPECIMENOrdering Facility: [facility] Address: [address] [place] [address] Result Comment: A. L ymph node, left axilla, core biopsy:- Involved by mantle cell lymphoma.- See commentYA/JRC 01/22/25 at 1135 EDT Performed By: #### 6 6121-5 ####[facility] LABCLIA [id number] [address] [place] MICROSCOPIC DESCRIPTION [facility] Comment on above: Order Comment: Speci [facility] Type: TISSUE SPECIMENOrdering Facility: [facility] Address: [address] [place] [address] Result Comment: Hist ologic sections show cores [...] dendritic cells. Performed By: #### 6 6121-5 ####[facility] LABCLIA [id number] [address] Tiss Path Bx reporton 2024 FINAL PERFORMING LAB [facility] Comment on above: Order Comment: Speci men Type: TISSUE SPECIMENOrdering Facility: [facility] Address: [address] [place] [address] Result Comment: Diag nostic interpretation performed at: [facility], [address] [place] [address] CLIA# [id number] Director: Russ Hollis MD Performed By: #### 6 6121-5 ####[facility] LABIA [id number] [address] Result Comment: Diag nostic interpretation performed at [facility], [address] [place] [address] CLIA# [id number] Director: Russ Hollis M.D. Performed By: #### F CLLRFLX ####[facility] LABIA [id number] [address] GROSS DESCRIPTION Normal [facility] Comment on above: Order Comment: Speci men Type: TISSUE SPECIMENOrdering Facility: [facility] Address: [address] [place] [address] Result Comment: A. L ymph Node, BiopsyReceived in RPMI are multiple segments of cylindrical tissue aggregating to 3.8 x 0.1 x 0.1 cm, osorio and of a friable consistency. The washings are submitted for flow cytometry. The remaining tissue is totally submitted in formalin in three cassettes.CL January 19, 2025 4:06 PMGross examination performed at [facility], [address] [place] [address] Performed By: #### 6 6121-5 ####[facility] LABIA [id number] [place] [address] [place] Result Comment: [place]. [place] ymph Node, BiopsyRECEIVED 15ML WASHINGS WITH RPMICorrected results: Previously reported on 01/23/2025 at 11:35 AM EDT. Performed By: #### F CLLRFLX ####[facility] LABIA [id number] [place] [address] [place] US BIOPSY CERVICAL LYMPH NOD Donny 01-19-2025 US BIOPSY CERVICAL LYMPH NODE Normal [facility] CNPNon 01-15-2025 CNPN Normal [facility] CNOVon 01-14-2025 CNOV Normal [facility] CNPNon 01-13-2025 CNPN Normal [facility] CASE MGT INIT ASSESon 2024 CASE MGT INIT ASSES Normal [facility] CBC W Auto Differential pane l (Bld)on 01-12-2025 Anisocytosis Ql (Bld) Present Normal [facility] Comment on above: Order Comment: Speci men Type: BLOOD SPECIMENOrdering Facility: [facility] Address: [address] [place] [address] Performed By: #### 5 7021-8 ####[facility] [id number] [place] [address] [place] Basophils (Bld) [#/Vol] 0.00 10*3/uL Normal <0.11 [facility] Comment on above: Order Comment: Speci men Type: BLOOD SPECIMENOrdering Facility: [facility] Address: [address] [place] [address] Performed By: #### 5 7021-8 ####[facility] LABCLIA [id number] [facility] [address], [facility] [place] Basophils/100 WBC (Bld) 0.0 % Normal C [facility] Comment on above: Order Comment: Speci men Type: BLOOD SPECIMENOrdering Facility: [facility] Address: [address] [place] [address] Performed By: #### 5 7021-8 ####[facility] LABCLIA [id number] [address], [facility] [place] BLAST% 1.0 % High <=0.0 [facility] Comment on above: Order Comment: Speci men Type: BLOOD SPECIMENOrdering Facility: [facility] Address: [address] [place] [address] Performed By: #### 5 7021-8 ####[facility] LABCLIA [id number] [address], [place] [address] [place] Dacrocytes LM Ql (Bld) Few Normal Cl [facility] Comment on above: Order Comment: Speci men Type: BLOOD SPECIMENOrdering Facility: [facility] Address: [address] [place] [address] Performed By: #### 5 7021-8 ####[facility] LABCLIA [id number] [address], [place] [address] [place] Differential cell count method Nom (Bld) Manual Normal [facility] Comment on above: Order Comment: Speci men Type: BLOOD SPECIMENOrdering Facility: [facility] Address: [address] [place] [address] Performed By: #### 5 7021-8 ####[facility] LABCLIA [id number] [address], [facility] [place] Eosinophils (Bld) [#/Vol] 0.04 10*3/uL Normal <0.46 [facility] Comment on above: Order Comment: Speci men Type: BLOOD SPECIMENOrdering Facility: [facility] Address: [address] [place] [address] Performed By: #### 5 7021-8 ####[facility] LABCLIA [id number] [place] [id number] [place] Eosinophils/100 WBC (Bld) 1.0 % Normal [facility] Comment on above: Order Comment: Speci men Type: BLOOD SPECIMENOrdering Facility: [facility] Address: [address] [place] [address] Performed By: #### 5 7021-8 ####[facility] LABCLIA [id number] [place] [address] [place] Erythrocyte distribution width (RBC) [Ratio] 15.9 % High 11.5-15.0 [facility] Comment on above: Order Comment: Speci men Type: BLOOD SPECIMENOrdering Facility: [facility] Address: [address] [place] [address] Performed By: #### 5 7021-8 ####[facility] LABCLIA [id number] [place] [address] [place] Hematocrit (Bld) [Volume fraction] 28.0 % Low 39.0-51.0 [facility] Comment on above: Order Comment: Speci men Type: BLOOD SPECIMENOrdering Facility: [facility] Address: [address] [place] [address] Performed By: #### 5 7021-8 ####[facility] LABCLIA [id number] [place] [id number] [place] Hemoglobin (Bld) [Mass/Vol] 8.8 g/dL Low 13.0-17.0 [facility] Comment on above: Order Comment: Speci men Type: BLOOD SPECIMENOrdering Facility: [facility] Address: [address] [place] [address] Performed By: #### 5 7021-8 ####[facility] LABCLIA [id number] [place] [address] [place] Lymphocytes (Bld) [#/Vol] 1.06 10*3/uL Normal 1.00-4.00 [facility] Comment on above: Order Comment: Speci men Type: BLOOD SPECIMENOrdering Facility: [facility] Address: [address] [place] [address] Performed By: #### 5 7021-8 ####[facility] LABCLIA [id number] [place] [address] [place] Lymphocytes/100 WBC (Bld) 25.0 % Normal [facility] Comment on above: Order Comment: Speci men Type: BLOOD SPECIMENOrdering Facility: [facility] Address: [address] [place] [address] Performed By: #### 5 7021-8 ####[facility] LABIA [id number] [place] [address] [place] MCH (RBC) [Entitic mass] 28.2 pg Normal 26.0-34.0 [facility] Comment on above: Order Comment: Speci men Type: BLOOD SPECIMENOrdering Facility: [facility] Address: [address] [place] [address] Performed By: #### 5 7021-8 ####[facility] LABIA [id number] [place] [address] [place] MCHC (RBC) [Mass/Vol] 31.4 g/dL Normal 30.5-36.0 [facility] Comment on above: Order Comment: Speci men Type: BLOOD SPECIMENOrdering Facility: [facility] Address: [address] [place] [address] Performed By: #### 5 7021-8 ####[facility] LABCLIA [id number] [place] [address] [place] MCV (RBC) [Entitic vol] 89.7 fL Normal 80.0-100.0 [facility] Comment on above: Order Comment: Speci men Type: BLOOD SPECIMENOrdering Facility: [facility] Address: [address] [place] [address] Performed By: #### 5 7021-8 ####[facility] LABCLIA [id number] [facility] [address] [address] [place] Monocytes (Bld) [#/Vol] 0.17 10*3/uL Normal <0.87 [facility] Comment on above: Order Comment: Speci men Type: BLOOD SPECIMENOrdering Facility: [facility] Address: [address] [place] [address] Performed By: #### 5 7021-8 ####[facility] LABCLIA [id number] [place] [address] [place] Monocytes/100 WBC (Bld) 4.0 % Normal [facility] Comment on above: Order Comment: Speci men Type: BLOOD SPECIMENOrdering Facility: [facility] Address: [address] [place] [address] Performed By: #### 5 7021-8 ####[facility] LABCLIA [id number] [place] [address] [place] Neutrophils (Bld) [#/Vol] 2.93 10*3/uL Normal 1.45-7.50 [facility] Comment on above: Order Comment: Speci men Type: BLOOD SPECIMENOrdering Facility: [facility] Address: [address] [place] [address] Performed By: #### 5 7021-8 ####[facility] LABCLIA [id number] [facility] [place] [address] [place] Neutrophils/100 WBC (Bld) 69.0 % Normal [facility] Comment on above: Order Comment: Speci men Type: BLOOD SPECIMENOrdering Facility: [facility] Address: [address] [place] [address] Performed By: #### 5 7021-8 ####[facility] LABCLIA [id number] [address], [place] [address] [place] Nucleated RBC (Bld) [#/Vol] 10*3/uL Normal <0.01 [facility] Comment on above: Order Comment: Speci men Type: BLOOD SPECIMENOrdering Facility: [facility] Address: [address] [place] [address] Performed By: #### 5 7021-8 ####[facility] LABCLIA [id number] [address], [place] [address] [place] Nucleated RBC/100 WBC (Bld) [Ratio] 0.0 /100 WBC Normal [facility] Comment on above: Order Comment: Speci men Type: BLOOD SPECIMENOrdering Facility: [facility] Address: [address] [place] [address] Performed By: #### 5 7021-8 ####[facility] LABCLIA [id number] [address], [place] [address] [place] Ovalocytes LM Ql (Bld) Few Normal [facility] Comment on above: Order Comment: Speci men Type: BLOOD SPECIMENOrdering Facility: [facility] Address: [address] [place] [address] Performed By: #### 5 7021-8 ####[facility] LABIA [id number] [place] [address] [place] Platelet mean volume (Bld) [Entitic vol] 9.0 fL Normal 9.0-12.7 [facility] Comment on above: Order Comment: Speci men Type: BLOOD SPECIMENOrdering Facility: [facility] Address: [address] [place] [address] Performed By: #### 5 7021-8 ####[facility] LABCLIA [id number] [address], [facility] [place] Platelets (Bld) [#/Vol] 210 10*3/uL Normal 150-400 [facility] Comment on above: Order Comment: Speci men Type: BLOOD SPECIMENOrdering Facility: [facility] Address: [address] [place] [address] Performed By: #### 5 7021-8 ####[facility] LABCLIA [id number] [address] [place] [address] [place] Platelets Estimate (Bld) [#/Vol] Adequate Normal [facility] Comment on above: Order Comment: Speci men Type: BLOOD SPECIMENOrdering Facility: [facility] Address: [address] [place] [address] Performed By: #### 5 7021-8 ####[facility] LABCLIA [id number] [address] [place] [address] [place] Polychromasia LM Ql (Bld) Slight Normal [facility] Comment on above: Order Comment: Speci men Type: BLOOD SPECIMENOrdering Facility: [facility] Address: [address] [place] [address] Performed By: #### 5 7021-8 ####[facility] LABCLIA [id number] [address], [facility] [place] RBC (Bld) [#/Vol] 3.12 10*6/uL Low 4.20-6.00 [facility] Comment on above: Order Comment: Speci men Type: BLOOD SPECIMENOrdering Facility: [facility] Address: [address] [place] [address] Performed By: #### 5 7021-8 ####[facility] LABCLIA [id number] [address], [facility] [place] RED CELL MORPH Reviewed: see result s of individual morphologies Normal [facility] Comment on above: Order Comment: Speci men Type: BLOOD SPECIMENOrdering Facility: [facility] Address: [address] [place] [address] Performed By: #### 5 7021-8 ####[facility] LABCLIA [id number] [address] [address] [place] WBC (Bld) [#/Vol] 4.24 10*3/uL Normal 3.70-11.00 [facility] Comment on above: Order Comment: Speci men Type: BLOOD SPECIMENOrdering Facility: [facility] Address: [address] [place], [place] [address] Performed By: #### 5 7021-8 ####[facility] LABCLIA [id number] [place] [id number] [place] CNDSon 01-12-2025 CNDS Normal [facility] CNPNon 01-12-2025 CNPN Normal [facility] CONSULTon 01-12-2025 CONSULT Normal [facility] CT ABD/PEL W IVCONon 025 CT ABD/PEL W IVCON Normal [facility] CT CHEST W IVCONon 5 CT CHEST W IVCON Normal [facility] Comprehensive metabolic 2000 panelon 01-12-2025 Albumin [Mass/Vol] 2.5 g/dL Low 3.9-4.9 [facility] Comment on above: Order Comment: Speci men Type: BLOOD SPECIMENOrdering Facility: [facility] Address: [address] [place] [address] Performed By: #### 2 4323-8 ####[facility] LABIA [id number] [place] [id number] [place] ALP [Catalytic activity/Vol] 92 U/L Normal 38-113 [facility] Comment on above: Order Comment: Speci men Type: BLOOD SPECIMENOrdering Facility: [facility] Address: [address] [place], [place] [address] Performed By: #### 2 4323-8 ####[facility] LABCLIA [id number] [address] [address] [place] ALT [Catalytic activity/Vol] 17 U/L Normal 10-54 [facility] Comment on above: Order Comment: Speci men Type: BLOOD SPECIMENOrdering Facility: [facility] Address: [address] [place] [id number] Performed By: #### 2 4323-8 ####[facility] LABCLIA [id number] [address] [address] [place] Anion gap [Moles/Vol] 9 mmol/L Normal 8-15 [facility] Comment on above: Order Comment: Speci men Type: BLOOD SPECIMENOrdering Facility: [facility] Address: [address] [place], [place] [address] Performed By: #### 2 4323-8 ####[facility] LABCLIA [id number] [place] [address] [place] AST [Catalytic activity/Vol] 15 U/L Normal 14-40 [facility] Comment on above: Order Comment: Speci men Type: BLOOD SPECIMENOrdering Facility: [facility] Address: [address] [place], [place] [address] Performed By: #### 2 4323-8 ####[facility] LABCLIA [id number] [address] [address] [place] Bilirubin [Mass/Vol] 0.6 mg/dL Normal 0.2-1.3 [facility] Comment on above: Order Comment: Speci men Type: BLOOD SPECIMENOrdering Facility: [facility] Address: [address] [place], [place] [address] Performed By: #### 2 4323-8 ####[facility] LABCLIA [id number] [address] [address] [place] Calcium [Mass/Vol] 8.0 mg/dL Low 8.5-10.2 [facility] Comment on above: Order Comment: Speci men Type: BLOOD SPECIMENOrdering Facility: [facility] Address: [address] [place], [place] [address] Performed By: #### 2 4323-8 ####[facility] LABCLIA [id number] [place] [address] [place] Chloride [Moles/Vol] 108 mmol/L High 98-107 [facility] Comment on above: Order Comment: Speci men Type: BLOOD SPECIMENOrdering Facility: [facility] Address: [address] [place] [address] Performed By: #### 2 4323-8 ####[facility] LABCLIA [id number] [place] [address] [place] CO2 [Moles/Vol] 22 mmol/L Normal 22-30 [facility] Comment on above: Order Comment: Speci men Type: BLOOD SPECIMENOrdering Facility: [facility] Address: [address] [place] [address] Performed By: #### 2 4323-8 ####[facility] LABCLIA [id number] [place] [address] [place] Creatinine [Mass/Vol] 1.19 mg/dL Normal 0.73-1.22 [facility] Comment on above: Order Comment: Speci men Type: BLOOD SPECIMENOrdering Facility: [facility] Address: [address] [place] [address] Performed By: #### 2 4323-8 ####[facility] LABIA [id number] [place] [address] [place] eGFRcr SerPlBld CKD-EPI 2020 64 mL/min/1.73m??? Normal >=60 [facility] Comment on above: Order Comment: Speci men Type: BLOOD SPECIMENOrdering Facility: [facility] Address: [address] [place] [address] Result Comment: Nancy mated Glomerular Filtration Rate [...] actual GFR. Performed By: #### 2 4323-8 ####[facility] LABIA [id number] [address] [address] [place] Glucose [Mass/Vol] 271 mg/dL High 74-99 [facility] Comment on above: Order Comment: Speci men Type: BLOOD SPECIMENOrdering Facility: [facility] Address: [address] [place] [address] Result Comment: The [place] [employer] (ADA) provides guidance for cutoff [...] Standards of Medical Care in Diabetes 2016, [place] [employer]. Diabetes Care. 2016.39(Suppl 1). Performed By: #### 2 4323-8 ####[facility] [id number] [place] [id number] [place] Potassium [Moles/Vol] 4.4 mmol/L Normal 3.7-5.1 [facility] Comment on above: Order Comment: Speci men Type: BLOOD SPECIMENOrdering Facility: [facility] Address: [address] [place] [id number] Performed By: #### 2 4323-8 ####[facility] [id number] [address] [address] [place] Protein [Mass/Vol] 4.8 g/dL Low 6.3-8.0 [facility] Comment on above: Order Comment: Speci men Type: BLOOD SPECIMENOrdering Facility: [facility] Address: [address] [place] [address] Performed By: #### 2 4323-8 ####[facility] LABCLIA [id number] [place] [id number] [place] Sodium [Moles/Vol] 139 mmol/L Normal 136-144 [facility] Comment on above: Order Comment: Speci men Type: BLOOD SPECIMENOrdering Facility: [facility] Address: [address] [place] [address] Performed By: #### 2 4323-8 ####[facility] LABCLIA [id number] [place] [address] [place] Urea nitrogen [Mass/Vol] 25 mg/dL High 9-24 [facility] Comment on above: Order Comment: Speci men Type: BLOOD SPECIMENOrdering Facility: [facility] Address: [address] [place] [address] Performed By: #### 2 4323-8 ####[facility] LABCLIA [id number] [place] [address] [place] HBV core Ab Ser Qlon 025 HBV core Ab Ql (S) Negative Normal Negative [facility] Comment on above: Order Comment: Speci men Type: BLOOD SPECIMENOrdering Facility: [facility] Address: [address] [place] [address] Result Comment: No e vidence of current or past infection with Hepatitis B virus. Should recent infection be suspected, repeat testing may be considered 3-4 weeks after this draw. Performed By: #### 2 2322-2, 5195-3, 15495-4 ####[facility] LABCLIA [id number] [place] [address] [place] HBV surface Ab Ql (S)on HBV surface Ab Qn (S) <8.00 Normal [facility] Comment on above: Order Comment: Speci men Type: BLOOD SPECIMENOrdering Facility: [facility] Address: [address] [place] [address] Result Comment: <8 m IU/mL: No serological evidence of immunity to Hepatitis B Virus.>/= 8 to <12 mIU/mL: No serological evidence of immunity to Hepatitis B Virus.>/= 12 mIU/mL: Consistent with serological evidence of immunity to Hepatitis B Virus. Performed By: #### 2 2322-2, 5195-3, 25066-9 ####[facility] LABCLIA [id number] [place] [address] [place] HBV surface Ab Ser Qlon 08 HBV surface Ab Ql (S) Negative Normal [facility] Comment on above: Order Comment: Speci men Type: BLOOD SPECIMENOrdering Facility: [facility] Address: [address] [place] [address] Result Comment: No s erological evidence of immunity to Hepatitis B Virus. Performed By: #### 2 2322-2, 5-3, 34440-7 ####[facility] LABCLIA [id number] [address] [place] HBV surface Ag Ser Qlon HBV surface Ag Ql (S) Negative Normal Negative [facility] Comment on above: Order Comment: Demarco harris Type: BLOOD SPECIMENOrdering Facility: [facility] Address: [address] [place] [address] Performed By: #### 2 2322-2, 5-3, 94084-4 ####[facility] LABCLIA [id number] [address] [place] HCV Ab Ser Qlon 01-12-2025 HCV Ab Ql (S) Negative Normal Negative [facility] Comment on above: Order Comment: Pemai kimberly Type: BLOOD SPECIMENOrdering Facility: [facility] Address: [address] [place] [address] Result Comment: The result suggests no evidence of infection with Hepatitis C virus. Should recent infection be suspected, repeat testing may be considered 4-6 weeks after this draw. Performed By: #### 1 6128-1 ####[facility] LABCLIA [id number] [place] [address] [place] LDH SerPl-cCncon 01-12-2025 LDH [Catalytic activity/Vol] 360 U/L High 135-225 [facility] Comment on above: Order Comment: Speci men Type: BLOOD SPECIMENOrdering Facility: [facility] Address: [address] [place] [address] Performed By: #### 2 532-0 ####[facility] LABCLIA [id number] [place] [address] [place] CBC W Auto Differential pane l (Bld)on 01-11-2025 Basophils (Bld) [#/Vol] 10*3/uL Normal <0.11 [facility] Comment on above: Order Comment: Speci men Type: BLOOD SPECIMENOrdering Facility: [facility] Address: [address] [place] [address] Performed By: #### 5 7021-8 ####[facility] LABCLIA [id number] [place] [address] [place] Basophils/100 WBC (Bld) 0.0 % Normal [facility] Comment on above: Order Comment: Speci men Type: BLOOD SPECIMENOrdering Facility: [facility] Address: [address] [place] [address] Performed By: #### 5 7021-8 ####[facility] LABCLIA [id number] [address] [place] Differential cell count method Nom (Bld) Auto Normal [facility] Comment on above: Order Comment: Speci men Type: BLOOD SPECIMENOrdering Facility: [facility] Address: [address] [place] [address] Performed By: #### 5 7021-8 ####[facility] LABCLIA [id number] [place] [address] [place] Eosinophils (Bld) [#/Vol] 0.03 10*3/uL Normal <0.46 [facility] Comment on above: Order Comment: Speci men Type: BLOOD SPECIMENOrdering Facility: [facility] Address: [address] [place] [address] Performed By: #### 5 7021-8 ####[facility] LABCLIA [id number] [address], [place] [address] [place] Eosinophils/100 WBC (Bld) 1.0 % Normal [facility] Comment on above: Order Comment: Speci men Type: BLOOD SPECIMENOrdering Facility: [facility] Address: [address] [place] [address] Performed By: #### 5 7021-8 ####[facility] LABIA [id number] [address], [place] [address] [place] Erythrocyte distribution width (RBC) [Ratio] 15.9 % High 11.5-15.0 [facility] Comment on above: Order Comment: Speci men Type: BLOOD SPECIMENOrdering Facility: [facility] Address: [address] [place] [address] Performed By: #### 5 7021-8 ####[facility] LABIA [id number] [place] [address] [place] Hematocrit (Bld) [Volume fraction] 27.0 % Low 39.0-51.0 [facility] Comment on above: Order Comment: Speci men Type: BLOOD SPECIMENOrdering Facility: [facility] Address: [address] [place] [address] Performed By: #### 5 7021-8 ####[facility] LABIA [id number] [place] [id number] [place] Hemoglobin (Bld) [Mass/Vol] 8.5 g/dL Low 13.0-17.0 [facility] Comment on above: Order Comment: Speci men Type: BLOOD SPECIMENOrdering Facility: [facility] Address: [address] [place] [address] Performed By: #### 5 7021-8 ####[facility] LABCLIA [id number] [place] [address] [place] Immature granulocytes (Bld) [#/Vol] 10*3/uL Normal <0.10 [facility] Comment on above: Order Comment: Speci men Type: BLOOD SPECIMENOrdering Facility: [facility] Address: [address] [place] [address] Performed By: #### 5 7021-8 ####[facility] LABCLIA [id number] [place] [address] [place] Immature granulocytes/100 WBC (Bld) 0.7 % Normal [facility] Comment on above: Order Comment: Speci men Type: BLOOD SPECIMENOrdering Facility: [facility] Address: [address] [place] [address] Performed By: #### 5 7021-8 ####[facility] LABCLIA [id number] [place] [address] [place] Lymphocytes (Bld) [#/Vol] 1.32 10*3/uL Normal 1.00-4.00 [facility] Comment on above: Order Comment: Speci men Type: BLOOD SPECIMENOrdering Facility: [facility] Address: [address] [place] [address] Performed By: #### 5 7021-8 ####[facility] LABCLIA [id number] [place] [address] [place] Lymphocytes/100 WBC (Bld) 43.9 % Normal [facility] Comment on above: Order Comment: Speci men Type: BLOOD SPECIMENOrdering Facility: [facility] Address: [address] [place] [address] Performed By: #### 5 7021-8 ####[facility] LABCLIA [id number] [place] [address] [place] MCH (RBC) [Entitic mass] 28.5 pg Normal 26.0-34.0 [facility] Comment on above: Order Comment: Speci men Type: BLOOD SPECIMENOrdering Facility: [facility] Address: [address] [place] [address] Performed By: #### 5 7021-8 ####[facility] LABCLIA [id number] [place] [address] [place] MCHC (RBC) [Mass/Vol] 31.5 g/dL Normal 30.5-36.0 [facility] Comment on above: Order Comment: Speci men Type: BLOOD SPECIMENOrdering Facility: [facility] Address: [address] [place] [address] Performed By: #### 5 7021-8 ####[facility] LABCLIA [id number] [place] [address] [place] MCV (RBC) [Entitic vol] 90.6 fL Normal 80.0-100.0 [facility] Comment on above: Order Comment: Speci men Type: BLOOD SPECIMENOrdering Facility: [facility] Address: [address] [place] [address] Performed By: #### 5 7021-8 ####[facility] LABIA [id number] [place] [address] [place] Monocytes (Bld) [#/Vol] 0.20 10*3/uL Normal <0.87 [facility] Comment on above: Order Comment: Speci men Type: BLOOD SPECIMENOrdering Facility: [facility] Address: [address] [place] [address] Performed By: #### 5 7021-8 ####[facility] LABCLIA [id number] [place] [address] [place] Monocytes/100 WBC (Bld) 6.6 % Normal [facility] Comment on above: Order Comment: Speci men Type: BLOOD SPECIMENOrdering Facility: [facility] Address: [address] [place] [address] Performed By: #### 5 7021-8 ####[facility] LABCLIA [id number] [address], [place] [address] [place] Neutrophils (Bld) [#/Vol] 1.44 10*3/uL Low 1.45-7.50 [facility] Comment on above: Order Comment: Speci men Type: BLOOD SPECIMENOrdering Facility: [facility] Address: [address] [place] [address] Performed By: #### 5 7021-8 ####[facility] LABCLIA [id number] [address], [place] [address] [place] Neutrophils/100 WBC (Bld) 47.8 % Normal [facility] Comment on above: Order Comment: Speci men Type: BLOOD SPECIMENOrdering Facility: [facility] Address: [address] [place] [address] Performed By: #### 5 7021-8 ####[facility] LABCLIA [id number] [address], [place] [address] [place] Nucleated RBC (Bld) [#/Vol] 10*3/uL Normal <0.01 [facility] Comment on above: Order Comment: Speci men Type: BLOOD SPECIMENOrdering Facility: [facility] Address: [address] [place] [address] Performed By: #### 5 7021-8 ####[facility] LABCLIA [id number] [address], [facility] [place] Nucleated RBC/100 WBC (Bld) [Ratio] 0.0 /100 WBC Normal [facility] Comment on above: Order Comment: Speci men Type: BLOOD SPECIMENOrdering Facility: [facility] Address: [address] [place] [address] Performed By: #### 5 7021-8 ####[facility] LABCLIA [id number] [address] [place] [address] [place] Platelet mean volume (Bld) [Entitic vol] 8.9 fL Low 9.0-12.7 [facility] Comment on above: Order Comment: Speci men Type: BLOOD SPECIMENOrdering Facility: [facility] Address: [address] [place] [address] Performed By: #### 5 7021-8 ####[facility] LABCLIA [id number] [place] [address] [place] Platelets (Bld) [#/Vol] 212 10*3/uL Normal 150-400 [facility] Comment on above: Order Comment: Speci men Type: BLOOD SPECIMENOrdering Facility: [facility] Address: [address] [place] [address] Performed By: #### 5 7021-8 ####[facility] LABCLIA [id number] [place] [address] [place] RBC (Bld) [#/Vol] 2.98 10*6/uL Low 4.20-6.00 [facility] Comment on above: Order Comment: Speci men Type: BLOOD SPECIMENOrdering Facility: [facility] Address: [address] [place] [address] Performed By: #### 5 7021-8 ####[facility] LABIA [id number] [place] [id number] [place] WBC (Bld) [#/Vol] 3.01 10*3/uL Low 3.70-11.00 [facility] Comment on above: Order Comment: Speci men Type: BLOOD SPECIMENOrdering Facility: [facility] Address: [address] [place] [address] Performed By: #### 5 7021-8 ####[facility] LABCLIA [id number] [place] [id number] [place] Comprehensive metabolic 2000 panelon 01-11-2025 Albumin [Mass/Vol] 2.5 g/dL Low 3.9-4.9 [facility] Comment on above: Order Comment: Speci men Type: BLOOD SPECIMENOrdering Facility: [facility] Address: [address] [place], [place] [address] Performed By: #### 2 4323-8 ####[facility] LABCLIA [id number] [address] [place] [address] [place] ALP [Catalytic activity/Vol] 87 U/L Normal 38-113 [facility] Comment on above: Order Comment: Speci men Type: BLOOD SPECIMENOrdering Facility: [facility] Address: [address] [place] [address] Performed By: #### 2 4323-8 ####[facility] LABCLIA [id number] [place] [id number] [place] ALT [Catalytic activity/Vol] 15 U/L Normal 10-54 [facility] Comment on above: Order Comment: Speci men Type: BLOOD SPECIMENOrdering Facility: [facility] Address: [address] [place] [address] Performed By: #### 2 4323-8 ####[facility] LABCLIA [id number] [place] [id number] [place] Anion gap [Moles/Vol] 11 mmol/L Normal 8-15 [facility] Comment on above: Order Comment: Speci men Type: BLOOD SPECIMENOrdering Facility: [facility] Address: [address] [place] [address] Performed By: #### 2 4323-8 ####[facility] LABCLIA [id number] [facility] [address] [address] [place] AST [Catalytic activity/Vol] 14 U/L Normal 14-40 [facility] Comment on above: Order Comment: Speci men Type: BLOOD SPECIMENOrdering Facility: [facility] Address: [address] [place], [place] [address] Performed By: #### 2 4323-8 ####[facility] LABCLIA [id number] [address] [address] [place] Bilirubin [Mass/Vol] 0.7 mg/dL Normal 0.2-1.3 [facility] Comment on above: Order Comment: Speci men Type: BLOOD SPECIMENOrdering Facility: [facility] Address: [address] [place], [place] [address] Performed By: #### 2 4323-8 ####[facility] LABCLIA [id number] [place] [id number] [place] Calcium [Mass/Vol] 7.9 mg/dL Low 8.5-10.2 [facility] Comment on above: Order Comment: Speci men Type: BLOOD SPECIMENOrdering Facility: [facility] Address: [address] [place] [address] Performed By: #### 2 4323-8 ####[facility] LABCLIA [id number] [place] [id number] [place] Chloride [Moles/Vol] 106 mmol/L Normal 98-107 [facility] Comment on above: Order Comment: Speci men Type: BLOOD SPECIMENOrdering Facility: [facility] Address: [address] [place] [address] Performed By: #### 2 4323-8 ####[facility] LABCLIA [id number] [place] [id number] [place] CO2 [Moles/Vol] 21 mmol/L Low 22-30 [facility] Comment on above: Order Comment: Speci men Type: BLOOD SPECIMENOrdering Facility: [facility] Address: [address] [place], [place] [address] Performed By: #### 2 4323-8 ####[facility] LABCLIA [id number] [place] [id number] [place] Creatinine [Mass/Vol] 1.57 mg/dL High 0.73-1.22 [facility] Comment on above: Order Comment: Speci men Type: BLOOD SPECIMENOrdering Facility: [facility] Address: [address] [place] [address] Performed By: #### 2 4323-8 ####[facility] LABCLIA [id number] [place] [address] [place] eGFRcr SerPlBld CKD-EPI 2020 46 mL/min/1.73m??? Low >=60 [facility] Comment on above: Order Comment: Demarco harris Type: BLOOD SPECIMENOrdering Facility: [facility] Address: [address] [place] [address] Result Comment: Nancy mated Glomerular Filtration Rate [...] actual GFR. Performed By: #### 2 4323-8 ####[facility] LABCLIA [id number] [place] [address] [place] Glucose [Mass/Vol] 223 mg/dL High 74-99 [facility] Comment on above: Order Comment: Demarco kimberly Type: BLOOD SPECIMENOrdering Facility: [facility] Address: [address] [place] [address] Result Comment: The [place] [employer] (ADA) provides guidance for cutoff [...] Standards of Medical Care in Diabetes 2016, [place] [employer]. Diabetes Care. 2016.39(Suppl 1). Performed By: #### 2 4323-8 ####[facility] LABCLIA [id number] [address] [address] [place] Potassium [Moles/Vol] 4.2 mmol/L Normal 3.7-5.1 [facility] Comment on above: Order Comment: Speci men Type: BLOOD SPECIMENOrdering Facility: [facility] Address: [address] [place] [address] Performed By: #### 2 4323-8 ####[facility] LABCLIA [id number] [place] [id number] [place] Protein [Mass/Vol] 4.6 g/dL Low 6.3-8.0 [facility] Comment on above: Order Comment: Speci men Type: BLOOD SPECIMENOrdering Facility: [facility] Address: [address] [place] [address] Performed By: #### 2 4323-8 ####[facility] LABCLIA [id number] [place] [id number] [place] Sodium [Moles/Vol] 138 mmol/L Normal 136-144 [facility] Comment on above: Order Comment: Speci men Type: BLOOD SPECIMENOrdering Facility: [facility] Address: [address] [place] [address] Performed By: #### 2 4323-8 ####[facility] LABCLIA [id number] [place] [id number] [place] Urea nitrogen [Mass/Vol] 26 mg/dL High 9-24 [facility] Comment on above: Order Comment: Speci men Type: BLOOD SPECIMENOrdering Facility: [facility] Address: [address] [place] [address] Performed By: #### 2 4323-8 ####[facility] LABCLIA [id number] [address] [address] [place] CNCOon 01-10-2025 CNCO Letter Text Normal [facility] CNDSon 01-10-2025 CNDS Normal [facility] Comprehensive metabolic 2000 panelon 01-10-2025 Albumin [Mass/Vol] 2.7 g/dL Low 3.9-4.9 [facility] Comment on above: Order Comment: Speci men Type: BLOOD SPECIMENOrdering Facility: [facility] Address: [address] [place] [address] Performed By: #### 1 9123-9, 2777-1, 72557-7 ####[facility] LABORATORYCLIA [id number] [place] [address] [place] ALP [Catalytic activity/Vol] 76 U/L Normal 38-113 [facility] Comment on above: Order Comment: Speci men Type: BLOOD SPECIMENOrdering Facility: [facility] Address: [address] [place] [address] Performed By: #### 1 9123-9, 2777-1, 69616-3 ####[facility] LABORATORYCLIA [id number] [address] OF [facility] ALT [Catalytic activity/Vol] 14 U/L Normal 10-54 [facility] Comment on above: Order Comment: Speci men Type: BLOOD SPECIMENOrdering Facility: [facility] Address: [address] [place] [address] Performed By: #### 1 9123-9, 2777-1, 82834-6 ####[facility] LABORATORYCLIA [id number] [address] Anion gap [Moles/Vol] 9 mmol/L Normal 8-15 [facility] Comment on above: Order Comment: Speci men Type: BLOOD SPECIMENOrdering Facility: [facility] Address: [address] [place] [address] Performed By: #### 1 9123-9, 2777-1, 45568-2 ####[facility] LABORATORYCLIA [id number] [address] AST [Catalytic activity/Vol] 13 U/L Low 14-40 [facility] Comment on above: Order Comment: Speci men Type: BLOOD SPECIMENOrdering Facility: [facility] Address: [address] [place] [address] Performed By: #### 1 9123-9, 2776-06, 61085-5 ####[facility] LABORATORYCLIA [id number] [place] [address] [place] Bilirubin [Mass/Vol] 0.6 mg/dL Normal 0.2-1.3 [facility] Comment on above: Order Comment: Speci men Type: BLOOD SPECIMENOrdering Facility: [facility] Address: [facility] [place] [address] Performed By: #### 1 9123-9, 2776-06, 55736-0 ####[facility] LABORATORYCLIA [id number] [place] [address] [place] Calcium [Mass/Vol] 8.0 mg/dL Low 8.5-10.2 [facility] Comment on above: Order Comment: Speci men Type: BLOOD SPECIMENOrdering Facility: [facility] Address: [facility] [address] Performed By: #### 1 9123-9, 2776-06, 02334-3 ####[facility] LABORATORYCLIA [id number] [place] [address] [place] Chloride [Moles/Vol] 105 mmol/L Normal 98-107 [facility] Comment on above: Order Comment: Speci men Type: BLOOD SPECIMENOrdering Facility: [facility] Address: [facility] [place] [address] Performed By: #### 1 9123-9, 2776-06, 24981-5 ####[facility] LABORATORYCLIA [id number] [place] [address] [place] CO2 [Moles/Vol] 24 mmol/L Normal 22-30 [facility] Comment on above: Order Comment: Speci men Type: BLOOD SPECIMENOrdering Facility: [facility] Address: [facility] [place] [address] Performed By: #### 1 9123-9, 2776-, 35288-5 ####[facility] LABORATORYCLIA [id number] [place] [address] [place] Creatinine [Mass/Vol] 1.36 mg/dL High 0.73-1.22 [facility] Comment on above: Order Comment: Demarco harris Type: BLOOD SPECIMENOrdering Facility: [facility] Address: [address] [place] [address] Performed By: #### 1 9123-9, 2777-1, 40797-1 ####[facility] LABORATORYCLIA [id number] [place] [id number] [place] eGFRcr SerPlBld CKD-EPI 2020 54 mL/min/1.73m??? Low >=60 [facility] Comment on above: Order Comment: Demarco harris Type: BLOOD SPECIMENOrdering Facility: [facility] Address: [address] [place] [address] Result Comment: Nancy [facility] Glomerular Filtration Rate (eGFR) is calculated using [...] actual GFR. Performed By: #### 1 9123-9, 2777-1, 27192-6 ####[facility] LABORATORYCLIA [id number] [place] [id number] [place] Glucose [Mass/Vol] 80 mg/dL Normal 74-99 [facility] Comment on above: Order Comment: Demarco harris Type: BLOOD SPECIMENOrdering Facility: [facility] Address: [address] [place] [address] Result Comment: The [place] [employer] (ADA) provides guidance for cutoff [...] Standards of Medical Care in Diabetes 2016, [place] [employer]. Diabetes Care. 2016.39(Suppl 1). Performed By: #### 1 9123-9, 2776-, 21669-6 ####[facility] LABORATORYCLIA [id number] [place] [address] [place] Potassium [Moles/Vol] 3.7 mmol/L Normal 3.7-5.1 [facility] Comment on above: Order Comment: Speci men Type: BLOOD SPECIMENOrdering Facility: [facility] Address: [facility] [place] [address] Performed By: #### 1 9123-9, 2776-06, 47230-2 ####[facility] LABORATORYCLIA [id number] [place] [address] [place] Protein [Mass/Vol] 4.8 g/dL Low 6.3-8.0 [facility] Comment on above: Order Comment: Speci men Type: BLOOD SPECIMENOrdering Facility: [facility] Address: [address] [place] [address] Performed By: #### 1 9123-9, 2776-06, 10342-5 ####[facility] LABORATORYCLIA [id number] [place] [address] [place] Sodium [Moles/Vol] 138 mmol/L Normal 136-144 [facility] Comment on above: Order Comment: Speci men Type: BLOOD SPECIMENOrdering Facility: [facility] Address: [facility] [place] [address] Performed By: #### 1 9123-9, 2776-06, 42564-6 ####[facility] LABORATORYCLIA [id number] [place] [address] [place] Urea nitrogen [Mass/Vol] 23 mg/dL Normal 9-24 [facility] Comment on above: Order Comment: Speci men Type: BLOOD SPECIMENOrdering Facility: [facility] Address: [address] [place] [address] Performed By: #### 1 9123-9, 2777-, 12133-8 ####[facility] LABORATORYCLIA [id number] [place] [address] [place] HISTORY PHYSICALon HISTORY PHYSICAL Normal [facility] Magnesium SerPl-mCncon 01-10 Magnesium [Mass/Vol] 1.8 mg/dL Normal 1.7-2.3 [facility] Comment on above: Order Comment: Speci men Type: BLOOD SPECIMENOrdering Facility: [facility] Address: [address] [place], [place] [address] Performed By: #### 1 9123-9, 2777-1, 22347-1 ####[facility] LABORATORYCLIA [id number] [address] [place] Phosphate SerPl-mCncon 01-10 Phosphate [Mass/Vol] 3.0 mg/dL Normal 2.7-4.8 [facility] Comment on above: Order Comment: Speci men Type: BLOOD SPECIMENOrdering Facility: [facility] Address: [address] [place], [place] [address] Performed By: #### 1 9123-9, 2777-1, 12595-5 ####[facility] LABORATORYCLIA [id number] [place] [id number] [place] 25(OH)D3 SerPl-mCncon 2024 25-hydroxyvitamin D3 [Mass/Vol] 36.4 ng/mL Normal 31.0-80.0 [facility] Comment on above: Order Comment: Speci men Type: BLOOD SPECIMENOrdering Facility: [facility] Address: [address] [place], [place] [address] Performed By: #### 1 989-3 ####[facility] LABCLIA [id number] [address] [address] [place] Basic metabolic 2000 panelon 01-09-2025 Anion gap [Moles/Vol] 11 mmol/L Normal 8-15 [facility] Comment on above: Order Comment: Speci men Type: BLOOD SPECIMENOrdering Facility: [facility] Address: [address] [place], [place] [address] Performed By: #### 2 777-1, 34236-0 ####[facility] LABORATORYCLIA [id number] [place] [address] [place] Calcium [Mass/Vol] 7.6 mg/dL Low 8.5-10.2 [facility] Comment on above: Order Comment: Speci men Type: BLOOD SPECIMENOrdering Facility: [facility] Address: [address] [place] [address] Performed By: #### 2 777-1, 30770-9 ####[facility] LABORATORYCLIA [id number] [place] [address] [place] Chloride [Moles/Vol] 107 mmol/L Normal 98-107 [facility] Comment on above: Order Comment: Speci men Type: BLOOD SPECIMENOrdering Facility: [facility] Address: [address] [place] [address] Performed By: #### 2 777-1, 43575-0 ####[facility] LABORATORYCLIA [id number] [place] [address] [place] CO2 [Moles/Vol] 20 mmol/L Low 22-30 [facility] Comment on above: Order Comment: Speci men Type: BLOOD SPECIMENOrdering Facility: [facility] Address: [address] [place] [address] Performed By: #### 2 777-1, 51409-5 ####[facility] LABORATORYCLIA [id number] [place] [address] [place] Creatinine [Mass/Vol] 1.23 mg/dL High 0.73-1.22 [facility] Comment on above: Order Comment: Speci men Type: BLOOD SPECIMENOrdering Facility: [facility] Address: [address] [place] [id number] Performed By: #### 2 777-1, 14965-6 ####[facility] LABORATORYCLIA [id number] [place] [address] [place] eGFRcr SerPlBld CKD-EPI 2020 61 mL/min/1.73m??? Normal >=60 [facility] Comment on above: Order Comment: Speci men Type: BLOOD SPECIMENOrdering Facility: [facility] Address: [address] [place] [address] Result Comment: Nancy mated Glomerular Filtration Rate [...] actual GFR. Performed By: #### 2 777-1, 72397-2 ####[facility] LABORATORYCLIA [id number] [place] [id number] [place] Glucose [Mass/Vol] 118 mg/dL High 74-99 [facility] Comment on above: Order Comment: Demarco harris Type: BLOOD SPECIMENOrdering Facility: [facility] Address: [address] [place] [address] Result Comment: The [place] [employer] (ADA) provides guidance for cutoff [...] Standards of Medical Care in Diabetes 2016, [place] [employer]. Diabetes Care. 2016.39(Suppl 1). Performed By: #### 2 777-1, 79267-6 ####[facility] LABORATORYCLIA [id number] [place] [id number] [place] Potassium [Moles/Vol] 4.0 mmol/L Normal 3.7-5.1 [facility] Comment on above: Order Comment: Demarco harris Type: BLOOD SPECIMENOrdering Facility: [facility] Address: [address] [place] [address] Performed By: #### 2 777-1, 43834-6 ####[facility] LABORATORYCLIA [id number] [place] [address] [place] Sodium [Moles/Vol] 138 mmol/L Normal 136-144 [facility] Comment on above: Order Comment: Speci men Type: BLOOD SPECIMENOrdering Facility: [facility] Address: [address] [place] [address] Performed By: #### 2 777-1, 35617-9 ####[facility] LABORATORYCLIA [id number] [place] [address] [place] Urea nitrogen [Mass/Vol] 23 mg/dL Normal 9-24 [facility] Comment on above: Order Comment: Speci men Type: BLOOD SPECIMENOrdering Facility: [facility] Address: [address] [place] [address] Performed By: #### 2 777-1, 70174-1 ####[facility] LABORATORYCLIA [id number] [address] [place] CASE MANAGEMon 01-09-2025 CASE MANAGEM Normal [facility] CBC panel Auto (Bld)on 01-09 Erythrocyte distribution width (RBC) [Ratio] 16.0 % High 11.5-15.0 [facility] Comment on above: Order Comment: Speci men Type: BLOOD SPECIMENOrdering Facility: [facility] Address: [address] [place] [address] Performed By: #### 5 8410-2 ####[facility] LABORATORYCLIA [id number] [place] [address] [place] Hematocrit (Bld) [Volume fraction] 28.4 % Low 39.0-51.0 [facility] Comment on above: Order Comment: Speci men Type: BLOOD SPECIMENOrdering Facility: [facility] Address: [address] [place] [address] Performed By: #### 5 8410-2 ####[facility] LABORATORYCLIA [id number] [place] [address] [place] Hemoglobin (Bld) [Mass/Vol] 8.6 g/dL Low 13.0-17.0 [facility] Comment on above: Order Comment: Speci men Type: BLOOD SPECIMENOrdering Facility: [facility] Address: [address] [place] [address] Performed By: #### 5 8410-2 ####[facility] LABORATORYCLIA [id number] [address] MCH (RBC) [Entitic mass] 28.7 pg Normal 26.0-34.0 [facility] Comment on above: Order Comment: Speci men Type: BLOOD SPECIMENOrdering Facility: [facility] Address: [address] [place] [address] Performed By: #### 5 8410-2 ####[facility] LABORATORYCLIA [id number] [address] [place] MCHC (RBC) [Mass/Vol] 30.3 g/dL Low 30.5-36.0 [facility] Comment on above: Order Comment: Speci men Type: BLOOD SPECIMENOrdering Facility: [facility] Address: [address] [place] [address] Performed By: #### 5 8410-2 ####[facility] LABORATORYCLIA [id number] [address] MCV (RBC) [Entitic vol] 94.7 fL Normal 80.0-100.[address] [facility] Comment on above: Order Comment: Speci men Type: BLOOD SPECIMENOrdering Facility: [facility] Address: [address] [place] [address] Performed By: #### 5 8410-2 ####[facility] LABORATORYCLIA [id number] [address] Nucleated RBC (Bld) [#/Vol] 10*3/uL Normal <0.01 [facility] Comment on above: Order Comment: Speci men Type: BLOOD SPECIMENOrdering Facility: [facility] Address: [address] [place] [address] Performed By: #### 5 8410-2 ####[facility] LABORATORYCLIA [id number] [address] Platelet mean volume (Bld) [Entitic vol] 9.7 fL Normal 9.0-12.7 [facility] Comment on above: Order Comment: Speci men Type: BLOOD SPECIMENOrdering Facility: [facility] Address: [address] [place] [address] Performed By: #### 5 8410-2 ####[facility] LABORATORYCLIA [id number] [address] [place] Platelets (Bld) [#/Vol] 210 10*3/uL Normal 150-400 [facility] Comment on above: Order Comment: Speci men Type: BLOOD SPECIMENOrdering Facility: [facility] Address: [address] [place] [address] Performed By: #### 5 8410-2 ####[facility] LABORATORYCLIA [id number] [address] [place] RBC (Bld) [#/Vol] 3.00 10*6/uL Low 4.20-6.00 [facility] Comment on above: Order Comment: Speci men Type: BLOOD SPECIMENOrdering Facility: [facility] Address: [address] [place] [address] Performed By: #### 5 8410-2 ####[facility] LABORATORYCLIA [id number] [address] WBC (Bld) [#/Vol] 2.83 10*3/uL Low 3.70-11.00 [facility] Comment on above: Order Comment: Speci men Type: BLOOD SPECIMENOrdering Facility: [facility] Address: [address] [place] [address] Performed By: #### 5 8410-2 ####[facility] LABORATORYCLIA [id number] [address] [place] Erythrocyte distribution width (RBC) [Ratio] 15.9 % High 11.5-15.0 [facility] Comment on above: Order Comment: Speci men Type: BLOOD SPECIMENOrdering Facility: [facility] Address: [address] [place] [address] Performed By: #### 5 8410-2 ####[facility] LABORATORYCLIA [id number] [address] Hematocrit (Bld) [Volume fraction] 26.5 % Low 39.0-51.0 [facility] Comment on above: Order Comment: Speci men Type: BLOOD SPECIMENOrdering Facility: [facility] Address: [address] [place] [address] Performed By: #### 5 8410-2 ####[facility] LABORATORYCLIA [id number] [address] Hemoglobin (Bld) [Mass/Vol] 8.4 g/dL Low 13.0-17.0 [facility] Comment on above: Order Comment: Speci men Type: BLOOD SPECIMENOrdering Facility: [facility] Address: [address] [place] [address] Performed By: #### 5 8410-2 ####[facility] LABORATORYCLIA [id number] [address] MCH (RBC) [Entitic mass] 28.3 pg Normal 26.0-34.0 [facility] Comment on above: Order Comment: Speci men Type: BLOOD SPECIMENOrdering Facility: [facility] Address: [address] [place] [address] Performed By: #### 5 8410-2 ####HERRER[facility] LABORATORYCLIA [id number] [address] MCHC (RBC) [Mass/Vol] 31.7 g/dL Normal 30.5-36.0 [facility] Comment on above: Order Comment: Speci men Type: BLOOD SPECIMENOrdering Facility: [facility] Address: [address] [place] [address] Performed By: #### 5 8410-2 ####HERRERA LABORATORYCLIA [id number] [address] MCV (RBC) [Entitic vol] 89.2 fL Normal 80.0-100.[address] [facility] Comment on above: Order Comment: Speci men Type: BLOOD SPECIMENOrdering Facility: [facility] Address: [address] [place] [address] Performed By: #### 5 8410-2 ####HERRERA LABORATORYCLIA [id number] [address] Nucleated RBC (Bld) [#/Vol] 10*3/uL Normal <0.01 [facility] Comment on above: Order Comment: Speci men Type: BLOOD SPECIMENOrdering Facility: [facility] Address: [facility] [place] [address] Performed By: #### 5 8410-2 ####HERRERA LABORATORYCLIA [id number] [address] [place] Platelet mean volume (Bld) [Entitic vol] 8.7 fL Low 9.0-12.7 [facility] Comment on above: Order Comment: Speci men Type: BLOOD SPECIMENOrdering Facility: [facility] Address: [address] [place] [address] Performed By: #### 5 8410-2 ####HERRERA LABORATORYCLIA [id number] [address] [place] Platelets (Bld) [#/Vol] 209 10*3/uL Normal 150-400 [facility] Comment on above: Order Comment: Speci men Type: BLOOD SPECIMENOrdering Facility: [facility] Address: [address] [place] [address] Performed By: #### 5 8410-2 ####EHRRERA LABORATORYCLIA [id number] [place] [address] [place] RBC (Bld) [#/Vol] 2.97 10*6/uL Low 4.20-6.00 [facility] Comment on above: Order Comment: Speci men Type: BLOOD SPECIMENOrdering Facility: [facility] Address: [address] [place] [address] Performed By: #### 5 8410-2 ####HERRERA LABORATORYCLIA [id number] [place] [address] [place] WBC (Bld) [#/Vol] 3.29 10*3/uL Low 3.70-11.00 [facility] Comment on above: Order Comment: Speci men Type: BLOOD SPECIMENOrdering Facility: [facility] Address: [address] [place] [address] Performed By: #### 5 8410-2 ####HERRERA LABORATORYCLIA [id number] [address] Erythrocyte distribution width (RBC) [Ratio] 16.0 % High 11.5-15.0 [facility] Comment on above: Order Comment: Speci men Type: BLOOD SPECIMENOrdering Facility: [facility] Address: [address] [place] [address] Performed By: #### 5 8410-2 ####HERRERA LABORATORYCLIA [id number] [address] [place] Hematocrit (Bld) [Volume fraction] 23.5 % Low 39.0-51.0 [facility] Comment on above: Order Comment: Speci men Type: BLOOD SPECIMENOrdering Facility: [facility] Address: [address] [place] [address] Performed By: #### 5 8410-2 ####HERRERA LABORATORYCLIA [id number] [address] [place] Hemoglobin (Bld) [Mass/Vol] 7.5 g/dL Low 13.0-17.0 [facility] Comment on above: Order Comment: Speci men Type: BLOOD SPECIMENOrdering Facility: [facility] Address: [address] [place] [address] Performed By: #### 5 8410-2 ####HERRERA LABORATORYCLIA [id number] [address] [place] MCH (RBC) [Entitic mass] 28.5 pg Normal 26.0-34.0 [facility] Comment on above: Order Comment: Speci men Type: BLOOD SPECIMENOrdering Facility: [facility] Address: [address] [place] [address] Performed By: #### 5 8410-2 ####HERRERA LABORATORYCLIA [id number] [address] MCHC (RBC) [Mass/Vol] 31.9 g/dL Normal 30.5-36.0 [facility] Comment on above: Order Comment: Speci men Type: BLOOD SPECIMENOrdering Facility: [facility] Address: [address] [place] [address] Performed By: #### 5 8410-2 ####HERRERA LABORATORYCLIA [id number] [place] [address] [place] MCV (RBC) [Entitic vol] 89.4 fL Normal 80.0-100.[address] [facility] Comment on above: Order Comment: Speci men Type: BLOOD SPECIMENOrdering Facility: [facility] Address: [address] [place] [address] Performed By: #### 5 8410-2 ####HERRERA LABORATORYCLIA [id number] [place] [address] [place] Nucleated RBC (Bld) [#/Vol] 10*3/uL Normal <0.01 [facility] Comment on above: Order Comment: Speci men Type: BLOOD SPECIMENOrdering Facility: [facility] Address: [address] [place] [address] Performed By: #### 5 8410-2 ####HERRERA LABORATORYCLIA [id number] [address] [place] Platelet mean volume (Bld) [Entitic vol] 9.0 fL Normal 9.0-12.7 [facility] Comment on above: Order Comment: Speci men Type: BLOOD SPECIMENOrdering Facility: [facility] Address: [address] [place] [address] Performed By: #### 5 8410-2 ####HERRERA LABORATORYCLIA [id number] [address] [place] Platelets (Bld) [#/Vol] 199 10*3/uL Normal 150-400 [facility] Comment on above: Order Comment: Speci men Type: BLOOD SPECIMENOrdering Facility: [facility] Address: [address] [place] [address] Performed By: #### 5 8410-2 ####HERRERA LABORATORYCLIA [id number] [place] [address] [place] RBC (Bld) [#/Vol] 2.63 10*6/uL Low 4.20-6.00 [facility] Comment on above: Order Comment: Speci men Type: BLOOD SPECIMENOrdering Facility: [facility] Address: [address] [place], [place] [address] Performed By: #### 5 8410-2 ####[facility] LABORATORYCLIA [id number] [place] [address] [place] WBC (Bld) [#/Vol] 3.35 10*3/uL Low 3.70-11.00 [facility] Comment on above: Order Comment: Speci men Type: BLOOD SPECIMENOrdering Facility: [facility] Address: [address] [place] [address] Performed By: #### 5 8410-2 ####MERIDEN LABORATORYCLIA [id number] [place] [address] [place] CONSULT PROGon 01-09-2025 CONSULT PROG Normal [facility] CONSULT PROG Normal [facility] CYSTATIN Con 01-09-2025 Cystatin C [Mass/Vol] 1.89 mg/L High 0.61-0.95 [facility] Comment on above: Order Comment: Speci men Type: BLOOD SPECIMENOrdering Facility: [facility] Address: [address] [place] [address] Performed By: #### C YSTC ####[facility] LABCLIA [id number] [place] [address] [place] CYSTATIN C EGFR 31 mL/min/1.73m??? Low >=[address] [facility] Comment on above: Order Comment: Speci men Type: BLOOD SPECIMENOrdering Facility: [facility] Address: [address] [place] [address] Result Comment: Nancy mated Glomerular Filtration Rate (eGFR) is calculated using the 2012 CKD-EPI cystatin C equation. This equation utilizes serum cystatin C, sex, and age as parameters. The cystatin C assay has traceable calibration to the ERM-DA471/IF reference material. Refer to KDIGO guidelines for clinical interpretation. In patients with unstable renal function, e.g. those with acute kidney injury, the eGFR may not accurately reflect actual GFR. Performed By: #### C YSTC ####[facility] LABCLIA [id number] [place] [address] [place] Calcium.ionized [Moles/Vol]o n 01-09-2025 Calcium.ionized (Bld) [Mass/Vol] 1.19 mmol/L Normal 1.08-1.30 [facility] Comment on above: Order Comment: Speci men Type: BLOOD SPECIMENOrdering Facility: [facility] Address: [address] [place], [place] [address] Performed By: #### 1 995-0 ####[facility] LABCLIA [id number] [address] [place] Calcium.ionized adjusted to pH 7.4 (Bld) [Moles/Vol] 1.23 mmol/L Normal 1.08-1.30 [facility] Comment on above: Order Comment: Speci men Type: BLOOD SPECIMENOrdering Facility: [facility] Address: [address] [place] [address] Performed By: #### 1 995-0 ####[facility] LABCLIA [id number] [place] [address] [place] Magnesium SerPl-ncon 01-09 Magnesium [Mass/Vol] 1.8 mg/dL Normal 1.7-2.3 [facility] Comment on above: Order Comment: Speci men Type: BLOOD SPECIMENOrdering Facility: [facility] Address: [address] [place] [address] Performed By: #### 1 9123-9, 2777-1 ####MERIDEN LABORATORYCLIA [id number] [place] [address] [place] PT EDon 01-09-2025 PT ED Normal [facility] PT ED Normal [facility] Phosphate SerPl-mCncon 01-09 Phosphate [Mass/Vol] 2.8 mg/dL Normal 2.7-4.8 [facility] Comment on above: Order Comment: Speci men Type: BLOOD SPECIMENOrdering Facility: [facility] Address: [address] [place] [address] Performed By: #### 1 9123-9, 2777-1 ####MERIDEN LABORATORYCLIA [id number] [place] [address] [place] Phosphate [Mass/Vol] 2.2 mg/dL Low 2.7-4.8 [facility] Comment on above: Order Comment: Speci men Type: BLOOD SPECIMENOrdering Facility: [facility] Address: [address] [place] [address] Performed By: #### 2 777-1, 50126-2 ####MERID[facility] LABORATORYCLIA [id number] [place] [address] [place] THERAPY NTon 01-09-2025 THERAPY NT Normal [facility] Basic metabolic 2000 panelon 01-08-2025 Anion gap [Moles/Vol] 9 mmol/L Normal 8-15 [facility] Comment on above: Order Comment: Speci men Type: BLOOD SPECIMENOrdering Facility: [facility] Address: [address] [place] [address] Performed By: #### 2 777-1, 20934-5, ####MER[facility]EN LABORATORYCLIA [id number] [place] [address] [place] Calcium [Mass/Vol] 7.6 mg/dL Low 8.5-10.2 [facility] Comment on above: Order Comment: Speci men Type: BLOOD SPECIMENOrdering Facility: [facility] Address: [address] [place] [address] Performed By: #### 2 777-1, 75690-2, ####[facility] LABORATORYCLIA [id number] [place] [address] [place] Chloride [Moles/Vol] 108 mmol/L High 98-107 [facility] Comment on above: Order Comment: Speci men Type: BLOOD SPECIMENOrdering Facility: [facility] Address: [address] [place] [address] Performed By: #### 2 777-1, 78696-7, ####MER[facility] LABORATORYCLIA [id number] [place] [address] [place] CO2 [Moles/Vol] 22 mmol/L Normal 22-30 [facility] Comment on above: Order Comment: Speci men Type: BLOOD SPECIMENOrdering Facility: [facility] Address: [address] [place] [place] [id number] Performed By: #### 2 777-1, 37745-2, ####HERRERA LABORATORYCLIA [id number] [place] [address] [place] Creatinine [Mass/Vol] 1.27 mg/dL High 0.73-1.22 [facility] Comment on above: Order Comment: Speci men Type: BLOOD SPECIMENOrdering Facility: [facility] Address: [address] [place] [address] Performed By: #### 2 777-1, 82655-0, ####HERRERA LABORATORYCLIA [id number] [place] [id number] [place] eGFRcr SerPlBld CKD-EPI 2020 59 mL/min/1.73m??? Low >=60 [facility] Comment on above: Order Comment: Speci men Type: BLOOD SPECIMENOrdering Facility: [facility] Address: [address] [place] [address] Result Comment: Nancy mated Glomerular Filtration Rate [...] actual GFR. Performed By: #### 2 777-1, 40634-3, ####HERRERA LABORATORYCLIA [id number] [place] [id number] [place] Glucose [Mass/Vol] 254 mg/dL High 74-99 [facility] Comment on above: Order Comment: Pemai men Type: BLOOD SPECIMENOrdering Facility: [facility] Address: [address] [place] [address] Result Comment: The [place] [employer] (ADA) provides guidance for cutoff [...] Standards of Medical Care in Diabetes 2016, [place] [employer]. Diabetes Care. 2016.39(Suppl 1). Performed By: #### 2 777-1, , ####MERIDEN LABORATORYCLIA [id number] [place] [address] [place] Potassium [Moles/Vol] 4.2 mmol/L Normal 3.7-5.1 [facility] Comment on above: Order Comment: Demarco harris Type: BLOOD SPECIMENOrdering Facility: [facility] Address: [address] [place] [address] Performed By: #### 2 777-1, , ####MERIDEN LABORATORYCLIA [id number] [place] [address] [place] Sodium [Moles/Vol] 139 mmol/L Normal 136-144 [facility] Comment on above: Order Comment: Demarco harris Type: BLOOD SPECIMENOrdering Facility: [facility] Address: [address] [place] [address] Performed By: #### 2 777-1, , ####MERIDEN LABORATORYCLIA [id number] [place] [address] [place] Urea nitrogen [Mass/Vol] 26 mg/dL High 9-24 [facility] Comment on above: Order Comment: Demarco harris Type: BLOOD SPECIMENOrdering Facility: [facility] Address: [address] [place] [address] Performed By: #### 2 777-1, , ####HERRERA LABORATORYCLIA [id number] [place] [id number] [place] CASE MANAGEMon 01-08-2025 CASE MANAGEM Normal [facility] CBC panel Auto (Bld)on 01-08 Erythrocyte distribution width (RBC) [Ratio] 16.2 % High 11.5-15.0 [facility] Comment on above: Order Comment: Speci men Type: BLOOD SPECIMENOrdering Facility: [facility] Address: [address] [place] [address] Performed By: #### 5 8410-2, 66853-1 ####HERRERA LABORATORYCLIA [id number] [address] Hematocrit (Bld) [Volume fraction] 24.5 % Low 39.0-51.0 [facility] Comment on above: Order Comment: Speci men Type: BLOOD SPECIMENOrdering Facility: [facility] Address: [address] [place] [address] Performed By: #### 5 8410-2, 81471-3 ####HERRERA LABORATORYCLIA [id number] [address] OF [facility] Hemoglobin (Bld) [Mass/Vol] 7.9 g/dL Low 13.0-17.0 [facility] Comment on above: Order Comment: Speci men Type: BLOOD SPECIMENOrdering Facility: [facility] Address: [address] [place] [address] Performed By: #### 5 8410-2, 65033-6 ####HERRERA LABORATORYCLIA [id number] [address] MCH (RBC) [Entitic mass] 28.9 pg Normal 26.0-34.0 [facility] Comment on above: Order Comment: Speci men Type: BLOOD SPECIMENOrdering Facility: [facility] Address: [address] [place] [address] Performed By: #### 5 8410-2, 06188-4 ####HERRERA LABORATORYCLIA [id number] [address] MCHC (RBC) [Mass/Vol] 32.2 g/dL Normal 30.5-36.0 [facility] Comment on above: Order Comment: Speci men Type: BLOOD SPECIMENOrdering Facility: [facility] Address: [address] [place] [address] Performed By: #### 5 8410-2, 77904-1 ####HERRERA LABORATORYCLIA [id number] [address] [place] MCV (RBC) [Entitic vol] 89.7 fL Normal 80.0-100.[address] [facility] Comment on above: Order Comment: Speci men Type: BLOOD SPECIMENOrdering Facility: [facility] Address: [address] [place] [address] Performed By: #### 5 8410-2, 02122-5 ####HERRERA LABORATORYCLIA [id number] [address] [place] Nucleated RBC (Bld) [#/Vol] 10*3/uL Normal <0.01 [facility] Comment on above: Order Comment: Speci men Type: BLOOD SPECIMENOrdering Facility: [facility] Address: [address] [place] [address] Performed By: #### 5 8410-2, 50050-0 ####HERRERA LABORATORYCLIA [id number] [address] [place] Platelet mean volume (Bld) [Entitic vol] 8.9 fL Low 9.0-12.7 [facility] Comment on above: Order Comment: Speci men Type: BLOOD SPECIMENOrdering Facility: [facility] Address: [address] [place] [address] Performed By: #### 5 8410-2, 23797-2 ####HERRERA LABORATORYCLIA [id number] [address] Platelets (Bld) [#/Vol] 204 10*3/uL Normal 150-400 [facility] Comment on above: Order Comment: Speci men Type: BLOOD SPECIMENOrdering Facility: [facility] Address: [address] [place] [address] Performed By: #### 5 8410-2, 72079-0 ####HERRERA LABORATORYCLIA [id number] [address] [place] RBC (Bld) [#/Vol] 2.73 10*6/uL Low 4.20-6.00 [facility] Comment on above: Order Comment: Speci men Type: BLOOD SPECIMENOrdering Facility: [facility] Address: [address] [place] [address] Performed By: #### 5 8410-2, 07323-6 ####[facility] LABORATORYCLIA [id number] [place] [address] [place] WBC (Bld) [#/Vol] 3.39 10*3/uL Low 3.70-11.00 [facility] Comment on above: Order Comment: Speci men Type: BLOOD SPECIMENOrdering Facility: [facility] Address: [address] [place] [address] Performed By: #### 5 8410-2, 78740-3 ####HERRERA LABORATORYCLIA [id number] [place] [address] [place] CNPNon 01-08-2025 CNPN Normal [facility] CNPTOUTREACHon 01-08-2025 CNPTOUTREACH Normal [facility] CONSULTon 01-08-2025 CONSULT Normal [facility] CONSULT PROGon 01-08-2025 CONSULT PROG Normal [facility] CONSULT PROG [facility] Haptoglob SerPl-mCncon 01-08 Haptoglobin [Mass/Vol] 59 mg/dL Normal 31-238 [facility] Comment on above: Order Comment: Speci men Type: BLOOD SPECIMENOrdering Facility: [facility] Address: [address] [place] [address] Performed By: #### 4 542-7 ####[facility] LABCLIA [id number] [address] [address] [place] Hepatic function 2000 panelo n 01-08-2025 Albumin [Mass/Vol] 2.6 g/dL Low 3.9-4.9 [facility] Comment on above: Order Comment: Speci men Type: BLOOD SPECIMENOrdering Facility: [facility] Address: [address] [place], [place] [address] Performed By: #### 2 4325-3, 05860-3 ####HERRERA LABORATORYCLIA [id number] [address] ALP [Catalytic activity/Vol] 76 U/L Normal 38-113 [facility] Comment on above: Order Comment: Speci men Type: BLOOD SPECIMENOrdering Facility: [facility] Address: [address] [place] [address] Performed By: #### 2 4325-3, 12439-4 ####HERRERA LABORATORYCLIA [id number] [address] [place] ALT [Catalytic activity/Vol] 17 U/L Normal 10-54 [facility] Comment on above: Order Comment: Speci men Type: BLOOD SPECIMENOrdering Facility: [facility] Address: [address] [place] [address] Performed By: #### 2 4325-3, 94990-3 ####HERRER[facility] LABORATORYCLIA [id number] [address] AST [Catalytic activity/Vol] 12 U/L Low 14-40 [facility] Comment on above: Order Comment: Speci men Type: BLOOD SPECIMENOrdering Facility: [facility] Address: [address] [place] [address] Performed By: #### 2 4325-3, 88048-5 ####HERRER[facility] LABORATORYCLIA [id number] [address] [place] Bilirubin [Mass/Vol] 0.7 mg/dL Normal 0.2-1.3 [facility] Comment on above: Order Comment: Speci men Type: BLOOD SPECIMENOrdering Facility: [facility] Address: [address] [place] [address] Performed By: #### 2 4325-3, 34311-8 ####HERRER[facility] LABORATORYCLIA [id number] [address] Bilirubin.conjugated [Mass/Vol] 0.3 mg/dL High <0.3 [facility] Comment on above: Order Comment: Speci men Type: BLOOD SPECIMENOrdering Facility: [facility] Address: [address] [place] [address] Performed By: #### 2 4325-3, 30906-2 ####HERRER[facility] LABORATORYCLIA [id number] [place] [address] [place] Protein [Mass/Vol] 4.8 g/dL Low 6.3-8.0 [facility] Comment on above: Order Comment: Speci men Type: BLOOD SPECIMENOrdering Facility: [facility] Address: [address] [place] [address] Performed By: #### 2 4325-3, 07126-8 ####[facility] LABORATORYCLIA [id number] [place] [address] [place] LDH SerPl-cCncon 01-08-2025 LDH [Catalytic activity/Vol] 325 U/L High 135-225 [facility] Comment on above: Order Comment: Speci men Type: BLOOD SPECIMENOrdering Facility: [facility] Address: [address] [place] [address] Performed By: #### 2 532-0 ####[facility] LABCLIA [id number] [place] [address] [place] Magnesium SerPl-mCncon 01-08 Magnesium [Mass/Vol] 2.2 mg/dL Normal 1.7-2.3 [facility] Comment on above: Order Comment: Speci men Type: BLOOD SPECIMENOrdering Facility: [facility] Address: [address] [place] [address] Performed By: #### 2 777-1, 88297-2, ####[facility] LABORATORYCLIA [id number] [place] [address] [place] Phosphate SerPl-mCncon 01-08 Phosphate [Mass/Vol] 2.3 mg/dL Low 2.7-4.8 [facility] Comment on above: Order Comment: Speci men Type: BLOOD SPECIMENOrdering Facility: [facility] Address: [address] [place] [address] Performed By: #### 2 777-1, 59353-7, 61827-7 ####[facility] LABORATORYCLIA [id number] [place] [id number] [place] Procalcitonin SerPl-mCncon 0 01-08-2025 Procalcitonin [Mass/Vol] 0.22 ng/mL High <0.09 [facility] Comment on above: Order Comment: Speci men Type: BLOOD SPECIMENOrdering Facility: [facility] Address: [address] [place] [address] Result Comment: For a guided interpretation of test results, please visit the Change in Procalcitonin Calculator, [email or web address]. Performed By: #### 2 4325-3, 11207-7 ####[facility] LABORATORYCLIA [id number] [place] [address] [place] Retics #on 01-08-2025 Reticulocytes (Bld) [#/Vol] 0.96817 10*3/uL Normal 0.018-0.10 0 [facility] Comment on above: Order Comment: Speci men Type: BLOOD SPECIMENOrdering Facility: [facility] Address: [address] [place] [address] Performed By: #### 5 8410-2, 36413-5 ####[facility] LABORATORYCLIA [id number] [place] [address] [place] Reticulocytes (Bld) [#/Vol]o n 01-08-2025 Reticulocytes/100 RBC (Bld) 3.1 % High 0.4-2.0 [facility] Comment on above: Order Comment: Speci men Type: BLOOD SPECIMENOrdering Facility: [facility] Address: [address] [place] [address] Performed By: #### 5 8410-2, 84410-3 ####[facility] LABORATORYCLIA [id number] [place] [id number] [place] THERAPY NTon 01-08-2025 THERAPY NT Normal [facility] THERAPY NT Normal [facility] ABO AND RH ONLYon 01-07-2025 Rh Nom (Bld) Invalid result Normal [facility] Comment on above: Order Comment: Speci men Type: BLOOD SPECIMENOrdering Facility: [facility] Address: [address] [place] [address] Performed By: #### D AGT ####[facility] BLOOD BANKCLIA [id number] [address] [place]#### [place], [id number] ####[facility] BLOOD BANKCLIA [id number] [address]#### TSCR ####[facility] BLOOD BANKCLIA [id number] [address] BLOOD BANKCLIA [id number] [address] ANTIBODY WORKUP(2)on 025 ADDITIONAL SPECIMENS Received in lab [facility] Comment on above: Order Comment: Speci men Type: BLOOD SPECIMENOrdering Facility: [facility] Address: [address] [place] [address] Performed By: #### R CGP ####[facility] [id number] [address]#### [id number] ####[facility] BLOOD BANKIA [id number] [address] B-HYDROXYBUTYRATEon 01-08-20 25 Beta hydroxybutyrate [Moles/Vol] 0.20 mmol/L Normal <0.28 [facility] Comment on above: Order Comment: Speci men Type: BLOOD SPECIMENOrdering Facility: [facility] Address: [address] [place] [address] Performed By: #### B HB, [id number], 93994-1 ####[facility] LABORATORYCLIA [id number] [address] B2 MICROGLOBULINon 5 Tunn-9-Ihpyqubrjdkxy [Mass/Vol] 12.5 ug/mL High NINF - 3.1 mg/L [facility] Comment on above: Beta-2 Microglobulin test is performed using the [employer] immunoturbidimetric method. Results obtained with different methods or kits cannot be used interchangeably. BLOOD BANK COMMENTon 025 BLOOD BANK COMMENT See Comment Normal [facility] Comment on above: Order Comment: Speci men Type: BLOOD SPECIMENOrdering Facility: [facility] Address: [address] [place] [address] Result Comment: anti body ID not required. Last Antibody ID performed on 12/23/24. Performed By: #### D AGT ####[facility] BLOOD BANKCLIA [id number] [address] [place]#### ABORH, [id number] ####[facility] BLOOD BANKCLIA [id number] [address]#### TSCR ####[facility] BLOOD BANKCLIA [id number] [address] BLOOD BANKCLIA [id number] [address] Basic metabolic 2000 panelon 01-07-2025 Anion gap [Moles/Vol] 9 mmol/L Normal 8-15 [facility] Comment on above: Order Comment: Speci men Type: BLOOD SPECIMENOrdering Facility: [facility] Address: [address] [place] [address] Performed By: #### 2 4321-2 ####[facility] LABORATORYCLIA [id number] [address] Calcium [Mass/Vol] 7.8 mg/dL Low 8.5-10.2 [facility] Comment on above: Order Comment: Speci men Type: BLOOD SPECIMENOrdering Facility: [facility] Address: [address] [place] [address] Performed By: #### 2 4321-2 ####HERR[facility] LABORATORYCLIA [id number] [address] [place] [facility] Chloride [Moles/Vol] 108 mmol/L High 98-107 [facility] Comment on above: Order Comment: Speci men Type: BLOOD SPECIMENOrdering Facility: [facility] Address: [address] [place] [address] Performed By: #### 2 4321-2 ####HERRER[facility] LABORATORYCLIA [id number] [place] [address] [place] CO2 [Moles/Vol] 23 mmol/L Normal 22-30 [facility] Comment on above: Order Comment: Demarco kimberly Type: BLOOD SPECIMENOrdering Facility: [facility] Address: [address] [place] [address] Performed By: #### 2 4321-2 ####H[facility] LABORATORYCLIA [id number] [address] [place] Creatinine [Mass/Vol] 1.34 mg/dL High 0.73-1.22 [facility] Comment on above: Order Comment: Demarco kimberly Type: BLOOD SPECIMENOrdering Facility: [facility] Address: [address] [place] [address] Performed By: #### 2 4321-2 ####[facility] LABORATORYCLIA [id number] [address] eGFRcr SerPlBld CKD-EPI 2020 55 mL/min/1.73m??? Low >=60 [facility] Comment on above: Order Comment: Demarco kimberly Type: BLOOD SPECIMENOrdering Facility: [facility] Address: [address] [place] [address] Result Comment: Nancy mated Glomerular Filtration Rate [...] actual GFR. Performed By: #### 2 4321-2 ####HERR[facility] LABORATORYCLIA [id number] [address] [place] Glucose [Mass/Vol] 135 mg/dL High 74-99 [facility] Comment on above: Order Comment: Demarco harris Type: BLOOD SPECIMENOrdering Facility: [facility] Address: [address] [place] [address] Result Comment: The [employer] (ADA) provides guidance for cutoff [...] Standards of Medical Care in Diabetes 2016, [employer]. Diabetes Care. 2016.39(Suppl 1). Performed By: #### 2 4321-2 ####HERRER[facility] LABORATORYCLIA [id number] [place] [address] [place] Potassium [Moles/Vol] 3.9 mmol/L Normal 3.7-5.1 [facility] Comment on above: Order Comment: Demarco harris Type: BLOOD SPECIMENOrdering Facility: [facility] Address: [address] [place] [address] Performed By: #### 2 4321-2 ####HERRER[facility] LABORATORYCLIA [id number] [place] [address] [place] Sodium [Moles/Vol] 140 mmol/L Normal 136-144 [facility] Comment on above: Order Comment: Demarco harris Type: BLOOD SPECIMENOrdering Facility: [facility] Address: [address] [place] [address] Performed By: #### 2 4321-2 ####HERRER[facility] LABORATORYCLIA [id number] [place] [address] [place] Urea nitrogen [Mass/Vol] 28 mg/dL High 9-24 [facility] Comment on above: Order Comment: Demarco harris Type: BLOOD SPECIMENOrdering Facility: [facility] Address: [address] [place] [address] Performed By: #### 2 4321-2 ####HERRER[facility] LABORATORYCLIA [id number] [place] [address] [place] Anion gap [Moles/Vol] 12 mmol/L Normal 8-15 [facility] Comment on above: Order Comment: Demarco harris Type: BLOOD SPECIMENOrdering Facility: [facility] Address: [address] [place] [address] Performed By: #### 1 9123-9, 26552-8, 2776-06 ####HERRER[facility] LABORATORYCLIA [id number] [place] [address] [place] Calcium [Mass/Vol] 7.9 mg/dL Low 8.5-10.2 [facility] Comment on above: Order Comment: Speci men Type: BLOOD SPECIMENOrdering Facility: [facility] Address: [address] [place] [address] Performed By: #### 1 9123-9, 33768-7, 2776- ####HERRER[facility] LABORATORYCLIA [id number] [place] [address] [place] Chloride [Moles/Vol] 110 mmol/L High 98-107 [facility] Comment on above: Order Comment: Speci men Type: BLOOD SPECIMENOrdering Facility: [facility] Address: [address] [place] [address] Performed By: #### 1 9123-9, 89769-7, 2776-06 ####[facility] LABORATORYCLIA [id number] [place] [address] [place] CO2 [Moles/Vol] 21 mmol/L Low 22-30 [facility] Comment on above: Order Comment: Speci men Type: BLOOD SPECIMENOrdering Facility: [facility] Address: [address] [place] [address] Performed By: #### 1 9123-9, 79314-9, 2776-06 ####[facility] LABORATORYCLIA [id number] [place] [address] [place] Creatinine [Mass/Vol] 1.51 mg/dL High 0.73-1.22 [facility] Comment on above: Order Comment: Speci men Type: BLOOD SPECIMENOrdering Facility: [facility] Address: [address] [place] [address] Performed By: #### 1 9123-9, 35237-9, 2776-06 ####[facility] LABORATORYCLIA [id number] [place] [address] [place] eGFRcr SerPlBld CKD-EPI 2020 48 mL/min/1.73m??? Low >=60 [facility] Comment on above: Order Comment: Demarco harris Type: BLOOD SPECIMENOrdering Facility: [facility] Address: [address] [place] [address] Result Comment: Nancy mated Glomerular Filtration Rate [...] actual GFR. Performed By: #### 1 9123-9, 41669-5, 277- ####[facility] LABORATORYCLIA [id number] [place] [id number] [place] Glucose [Mass/Vol] 157 mg/dL High 74-99 [facility] Comment on above: Order Comment: Demarco harris Type: BLOOD SPECIMENOrdering Facility: [facility] Address: [address] [place] [address] Result Comment: The [place] [employer] (ADA) provides guidance for cutoff [...] Standards of Medical Care in Diabetes 2016, [place] [employer]. Diabetes Care. 2016.39(Suppl 1). Performed By: #### 1 9123-9, 05127-4, 277- ####[facility] LABORATORYCLIA [id number] [place] [address] [place] Potassium [Moles/Vol] 4.3 mmol/L Normal 3.7-5.1 [facility] Comment on above: Order Comment: [facility] Type: BLOOD SPECIMENOrdering Facility: [facility] Address: [address] [place] [address] Performed By: #### 1 9123-9, 95670-2, 2776-06 ####HERRER[facility] LABORATORYCLIA [id number] [place] [address] [place] Sodium [Moles/Vol] 143 mmol/L Normal 136-144 [facility] Comment on above: Order Comment: Speci men Type: BLOOD SPECIMENOrdering Facility: [facility] Address: [address] [place] [address] Performed By: #### 1 9123-9, 29595-2, 2776-06 ####H[facility] LABORATORYCLIA [id number] [place] [address] [place] Urea nitrogen [Mass/Vol] 33 mg/dL High 9-24 [facility] Comment on above: Order Comment: Speci men Type: BLOOD SPECIMENOrdering Facility: [facility] Address: [address] [place] [address] Performed By: #### 1 9123-9, 19968-6, 2776-06 ####HERRER[facility] LABORATORYCLIA [id number] [place] [address] [place] Anion gap [Moles/Vol] 12 mmol/L Normal 8-15 [facility] Comment on above: Order Comment: Speci men Type: BLOOD SPECIMENOrdering Facility: [facility] Address: [address] [place] [address] Performed By: #### 2 4321-2, 2776-06, ####HERRER[facility] LABORATORYCLIA [id number] [place] [address] [place] Calcium [Mass/Vol] 7.7 mg/dL Low 8.5-10.2 [facility] Comment on above: Order Comment: Speci men Type: BLOOD SPECIMENOrdering Facility: [facility] Address: [address] [place] [address] Performed By: #### 2 4321-2, 2776-06, ####HERRER[facility] LABORATORYCLIA [id number] [place] [address] [place] Chloride [Moles/Vol] 110 mmol/L High 98-107 [facility] Comment on above: Order Comment: Speci men Type: BLOOD SPECIMENOrdering Facility: [facility] Address: [address] [place] [address] Performed By: #### 2 4321-2, 2776-06, ####H[facility] LABORATORYCLIA [id number] [place] [address] [place] CO2 [Moles/Vol] 20 mmol/L Low 22-30 [facility] Comment on above: Order Comment: Speci men Type: BLOOD SPECIMENOrdering Facility: [facility] Address: [address] [place] [address] Performed By: #### 2 4321-2, 27712-09, ####HERRER[facility] LABORATORYCLIA [id number] [place] [id number] [place] Creatinine [Mass/Vol] 1.53 mg/dL High 0.73-1.22 [facility] Comment on above: Order Comment: Speci men Type: BLOOD SPECIMENOrdering Facility: [facility] Address: [address] [place] [address] Performed By: #### 2 4321-2, 27712-09, ####HERR[facility] LABORATORYCLIA [id number] [place] [id number] [place] eGFRcr SerPlBld CKD-EPI 2020 47 mL/min/1.73m??? Low >=60 [facility] Comment on above: Order Comment: Speci men Type: BLOOD SPECIMENOrdering Facility: [facility] Address: [address] [place] [address] Result Comment: Nancy mated Glomerular Filtration Rate [...] actual GFR. Performed By: #### 2 4321-2, 2777-, ####HERRERA LABORATORYCLIA [id number] [place] [address] [place] Glucose [Mass/Vol] 249 mg/dL High 74-99 [facility] Comment on above: Order Comment: Pemai men Type: BLOOD SPECIMENOrdering Facility: [facility] Address: [address] [place], [place] [address] Result Comment: The [place] [employer] (ADA) provides guidance for cutoff [...] Standards of Medical Care in Diabetes 2016, [place] [employer]. Diabetes Care. 2016.39(Suppl 1). Performed By: #### 2 4321-2, 2776-06, ####HERRER[facility] LABORATORYCLIA [id number] [place] [address] [place] Potassium [Moles/Vol] 4.2 mmol/L Normal 3.7-5.1 [facility] Comment on above: Order Comment: Demarco harris Type: BLOOD SPECIMENOrdering Facility: [facility] Address: [address] [place] [address] Performed By: #### 2 4321-2, 2776-06, ####HERR[facility] LABORATORYCLIA [id number] [place] [id number] [place] Sodium [Moles/Vol] 142 mmol/L Normal 136-144 [facility] Comment on above: Order Comment: Pemai men Type: BLOOD SPECIMENOrdering Facility: [facility] Address: [address] [place], [place] [address] Performed By: #### 2 4321-2, 2776-06, ####HERRER[facility] LABORATORYCLIA [id number] [place] [address] [place] Urea nitrogen [Mass/Vol] 34 mg/dL High 9-24 [facility] Comment on above: Order Comment: Speci men Type: BLOOD SPECIMENOrdering Facility: [facility] Address: [facility] [place] [address] Performed By: #### 2 4321-2, 2777-1, 39948-8 ####HERRER[facility] LABORATORYCLIA [id number] [place] [address] [place] Anion gap [Moles/Vol] 16 mmol/L High 8-15 [facility] Comment on above: Order Comment: Speci men Type: BLOOD SPECIMENOrdering Facility: [facility] Address: [address] [place], [place] [address] [address] Performed By: #### B HB, [id number], 92023-3 ####HERRER[facility] LABORATORYCLIA [id number] [place] [address] [place] Calcium [Mass/Vol] 7.8 mg/dL Low 8.5-10.2 [facility] Comment on above: Order Comment: Speci men Type: BLOOD SPECIMENOrdering Facility: [facility] Address: [address] [place] [address] Performed By: #### B HB, [id number], 69400-3 ####HERRER[facility] LABORATORYCLIA [id number] [place] [address] [place] Chloride [Moles/Vol] 104 mmol/L Normal 98-107 [facility] Comment on above: Order Comment: Speci men Type: BLOOD SPECIMENOrdering Facility: [facility] Address: [address] [place] [address] Performed By: #### B HB, [id number], 54153-1 ####HERRER[facility] LABORATORYCLIA [id number] [place] [address] [place] CO2 [Moles/Vol] 18 mmol/L Low 22-30 [facility] Comment on above: Order Comment: Speci men Type: BLOOD SPECIMENOrdering Facility: [facility] Address: [address] [place] [address] [place] [address] Performed By: #### B HB, [id number], 44873-4 ####HERRERA LABORATORYCLIA [id number] [place] [address] [place] Creatinine [Mass/Vol] 1.72 mg/dL High 0.73-1.22 [facility] Comment on above: Order Comment: Pemajoao harris Type: BLOOD SPECIMENOrdering Facility: [facility] Address: [address] [place] [address] Performed By: #### B HB, [id number], 96206-8 ####HERRERA LABORATORYCLIA [id number] [place] [address] [place] eGFRcr SerPlBld CKD-EPI 2020 41 mL/min/1.73m??? Low >=60 [facility] Comment on above: Order Comment: Demarco kimberly Type: BLOOD SPECIMENOrdering Facility: [facility] Address: [address] [place] [address] Result Comment: Nancy mated Glomerular Filtration Rate [...] actual GFR. Performed By: #### B HB, [id number], 43980-6 ####HERRERA LABORATORYCLIA [id number] [place] [id number] [place] Glucose [Mass/Vol] 585 mg/dL High 74-99 [facility] Comment on above: Order Comment: Pemajoao harris Type: BLOOD SPECIMENOrdering Facility: [facility] Address: [address] [place] [address] Result Comment: The [place] [employer] (ADA) provides guidance for cutoff [...] Standards of Medical Care in Diabetes 2016, [place] [employer]. Diabetes Care. 2016.39(Suppl 1). Performed By: #### B HB, [id number], 80515-4 ####HERRERA LABORATORYCLIA [id number] [place] [address] [place] Potassium [Moles/Vol] 4.6 mmol/L Normal 3.7-5.1 [facility] Comment on above: Order Comment: Demarco harris Type: BLOOD SPECIMENOrdering Facility: [facility] Address: [address] [place] [address] Performed By: #### B HB, [id number], 25973-5 ####HERRERA LABORATORYCLIA [id number] [place] [id number] [place] Sodium [Moles/Vol] 138 mmol/L Normal 136-144 [facility] Comment on above: Order Comment: Demarco harris Type: BLOOD SPECIMENOrdering Facility: [facility] Address: [address] [place] [address] Performed By: #### B HB, [id number], 83775-2 ####HERRER[facility] LABORATORYCLIA [id number] [place] [address] [place] Urea nitrogen [Mass/Vol] 37 mg/dL High 9-24 [facility] Comment on above: Order Comment: Demarco harris Type: BLOOD SPECIMENOrdering Facility: [facility] Address: [address] [place] [address] Performed By: #### B HB, [id number], 49788-2 ####HERRER[facility] LABORATORYCLIA [id number] [place] [id number] [place] Lcva-3-Hxoqrmhzkagsi [Mass/V ol]on 01-07-2025 Interpretation and review of laboratory results Abnormal [facility] CASE MGT INIT ASSESon 2024 CASE MGT INIT ASS Normal [facility] CBC panel Auto (Bld)on 01-07 Erythrocyte distribution width (RBC) [Ratio] 15.5 % High 11.5-15.0 [facility] Comment on above: Order Comment: Demarco harris Type: BLOOD SPECIMENOrdering Facility: [facility] Address: [address] [place] [address] Performed By: #### 5 8410-2 ####HERRERA LABORATORYCLIA [id number] [address] Hematocrit (Bld) [Volume fraction] 23.5 % Low 39.0-51.0 [facility] Comment on above: Order Comment: Speci men Type: BLOOD SPECIMENOrdering Facility: [facility] Address: [address] [place] [address] Performed By: #### 5 8410-2 ####HERRERA LABORATORYCLIA [id number] [address] Hemoglobin (Bld) [Mass/Vol] 7.6 g/dL Low 13.0-17.0 [facility] Comment on above: Order Comment: Speci men Type: BLOOD SPECIMENOrdering Facility: [facility] Address: [address] [place] [address] Performed By: #### 5 8410-2 ####HERRERA LABORATORYCLIA [id number] [address] MCH (RBC) [Entitic mass] 29.0 pg Normal 26.0-34.0 [facility] Comment on above: Order Comment: Speci men Type: BLOOD SPECIMENOrdering Facility: [facility] Address: [address] [place] [address] Performed By: #### 5 8410-2 ####HERRERA LABORATORYCLIA [id number] [address] MCHC (RBC) [Mass/Vol] 32.3 g/dL Normal 30.5-36.0 [facility] Comment on above: Order Comment: Speci men Type: BLOOD SPECIMENOrdering Facility: [facility] Address: [address] [place] [address] Performed By: #### 5 8410-2 ####HERRERA LABORATORYCLIA [id number] [address] MCV (RBC) [Entitic vol] 89.7 fL Normal 80.0-100.0 [facility] Comment on above: Order Comment: Speci men Type: BLOOD SPECIMENOrdering Facility: [facility] Address: [address] [place] [address] Performed By: #### 5 8410-2 ####HERRERA LABORATORYCLIA [id number] [place] [address] [place] Nucleated RBC (Bld) [#/Vol] 10*3/uL Normal <0.01 [facility] Comment on above: Order Comment: Speci men Type: BLOOD SPECIMENOrdering Facility: [facility] Address: [address] [place] [address] Performed By: #### 5 8410-2 ####HERRERA LABORATORYCLIA [id number] [place] [address] [place] Platelet mean volume (Bld) [Entitic vol] 9.2 fL Normal 9.0-12.7 [facility] Comment on above: Order Comment: Speci men Type: BLOOD SPECIMENOrdering Facility: [facility] Address: [address] [place] [address] Performed By: #### 5 8410-2 ####HERRERA LABORATORYCLIA [id number] [place] [address] [place] Platelets (Bld) [#/Vol] 192 10*3/uL Normal 150-400 [facility] Comment on above: Order Comment: Speci men Type: BLOOD SPECIMENOrdering Facility: [facility] Address: [address] [place] [address] Performed By: #### 5 8410-2 ####HERRERA LABORATORYCLIA [id number] [place] [address] [place] RBC (Bld) [#/Vol] 2.62 10*6/uL Low 4.20-6.00 [facility] Comment on above: Order Comment: Speci men Type: BLOOD SPECIMENOrdering Facility: [facility] Address: [address] [place] [address] Performed By: #### 5 8410-2 ####HERRERA LABORATORYCLIA [id number] [place] [address] [place] WBC (Bld) [#/Vol] 3.64 10*3/uL Low 3.70-11.00 [facility] Comment on above: Order Comment: Speci men Type: BLOOD SPECIMENOrdering Facility: [facility] Address: [address] [place] [address] Performed By: #### 5 8410-2 ####HERRERA LABORATORYCLIA [id number] [address] [place] [facility] Erythrocyte distribution width (RBC) [Ratio] 16.2 % High 11.5-15.0 [facility] Comment on above: Order Comment: Speci men Type: BLOOD SPECIMENOrdering Facility: [facility] Address: [address] [place] [address] Performed By: #### 5 8410-2 ####HERRERA LABORATORYCLIA [id number] [address] Hematocrit (Bld) [Volume fraction] 20.9 % Low 39.0-51.0 [facility] Comment on above: Order Comment: Speci men Type: BLOOD SPECIMENOrdering Facility: [facility] Address: [address] [place] [address] Performed By: #### 5 8410-2 ####HERRERA LABORATORYCLIA [id number] [address] [place] Hemoglobin (Bld) [Mass/Vol] 6.7 g/dL Low 13.0-17.0 [facility] Comment on above: Order Comment: Speci men Type: BLOOD SPECIMENOrdering Facility: [facility] Address: [address] [place] [address] Performed By: #### 5 8410-2 ####HERRERA LABORATORYCLIA [id number] [address] [place] [facility] MCH (RBC) [Entitic mass] 28.8 pg Normal 26.0-34.0 [facility] Comment on above: Order Comment: Speci men Type: BLOOD SPECIMENOrdering Facility: [facility] Address: [address] [place] [address] Performed By: #### 5 8410-2 ####HERRERA LABORATORYCLIA [id number] [address] [place] MCHC (RBC) [Mass/Vol] 32.1 g/dL Normal 30.5-36.0 [facility] Comment on above: Order Comment: Speci men Type: BLOOD SPECIMENOrdering Facility: [facility] Address: [address] [place] [address] Performed By: #### 5 8410-2 ####HERRERA LABORATORYCLIA [id number] [place] [address] [place] MCV (RBC) [Entitic vol] 89.7 fL Normal 80.0-100.0 [facility] Comment on above: Order Comment: Speci men Type: BLOOD SPECIMENOrdering Facility: [facility] Address: [address] [place] [address] Performed By: #### 5 8410-2 ####HERRERA LABORATORYCLIA [id number] [place] [address] [place] Nucleated RBC (Bld) [#/Vol] 10*3/uL Normal <0.01 [facility] Comment on above: Order Comment: Speci men Type: BLOOD SPECIMENOrdering Facility: [facility] Address: [address] [place] [address] Performed By: #### 5 8410-2 ####HERRERA LABORATORYCLIA [id number] [place] [address] [place] Platelet mean volume (Bld) [Entitic vol] 9.1 fL Normal 9.0-12.7 [facility] Comment on above: Order Comment: Speci men Type: BLOOD SPECIMENOrdering Facility: [facility] Address: [address] [place] [address] Performed By: #### 5 8410-2 ####HERRERA LABORATORYCLIA [id number] [place] [address] [place] Platelets (Bld) [#/Vol] 203 10*3/uL Normal 150-400 [facility] Comment on above: Order Comment: Speci men Type: BLOOD SPECIMENOrdering Facility: [facility] Address: [address] [place] [address] Performed By: #### 5 8410-2 ####HERRERA LABORATORYCLIA [id number] [address] RBC (Bld) [#/Vol] 2.33 10*6/uL Low 4.20-6.00 [facility] Comment on above: Order Comment: Speci men Type: BLOOD SPECIMENOrdering Facility: [facility] Address: [address] [place] [address] Performed By: #### 5 8410-2 ####HERRERA LABORATORYCLIA [id number] [place] [address] [place] WBC (Bld) [#/Vol] 3.60 10*3/uL Low 3.70-11.00 [facility] Comment on above: Order Comment: Speci men Type: BLOOD SPECIMENOrdering Facility: [facility] Address: [address] [place] [address] Performed By: #### 5 8410-2 ####HERRERA LABORATORYCLIA [id number] [address] Erythrocyte distribution width (RBC) [Ratio] 16.1 % High 11.5-15.0 [facility] Comment on above: Order Comment: Speci men Type: BLOOD SPECIMENOrdering Facility: [facility] Address: [address] [place] [address] Performed By: #### 5 8410-2, 73189-9 ####HERRERA LABORATORYCLIA [id number] [address] Hematocrit (Bld) [Volume fraction] 21.8 % Low 39.0-51.0 [facility] Comment on above: Order Comment: Speci men Type: BLOOD SPECIMENOrdering Facility: [facility] Address: [address] [place] [address] Performed By: #### 5 8410-2, 31403-3 ####HERRERA LABORATORYCLIA [id number] [address] Hemoglobin (Bld) [Mass/Vol] 6.9 g/dL Low 13.0-17.0 [facility] Comment on above: Order Comment: Speci men Type: BLOOD SPECIMENOrdering Facility: [facility] Address: [address] [place], [place] [address] Performed By: #### 5 8410-2, 91939-0 ####HERRERA LABORATORYCLIA [id number] [address] MCH (RBC) [Entitic mass] 29.0 pg Normal 26.0-34.0 [facility] Comment on above: Order Comment: Speci men Type: BLOOD SPECIMENOrdering Facility: [facility] Address: [address] [place] [address] Performed By: #### 5 8410-2, 56858-3 ####HERRERA LABORATORYCLIA [id number] [address] MCHC (RBC) [Mass/Vol] 31.7 g/dL Normal 30.5-36.0 [facility] Comment on above: Order Comment: Speci men Type: BLOOD SPECIMENOrdering Facility: [facility] Address: [address] [place] [address] Performed By: #### 5 8410-2, 92396-9 ####HERRERA LABORATORYCLIA [id number] [address] MCV (RBC) [Entitic vol] 91.6 fL Normal 80.0-100.[address] [facility] Comment on above: Order Comment: Speci men Type: BLOOD SPECIMENOrdering Facility: [facility] Address: [address] [place] [address] Performed By: #### 5 8410-2, 81542-1 ####HERRERA LABORATORYCLIA [id number] [address] Nucleated RBC (Bld) [#/Vol] 10*3/uL Normal <0.01 [facility] Comment on above: Order Comment: Speci men Type: BLOOD SPECIMENOrdering Facility: [facility] Address: [address] [place] [address] Performed By: #### 5 8410-2, 46096-7 ####HERRERA LABORATORYCLIA [id number] [address] Platelet mean volume (Bld) [Entitic vol] 9.0 fL Normal 9.0-12.7 [facility] Comment on above: Order Comment: Speci men Type: BLOOD SPECIMENOrdering Facility: [facility] Address: [address] [place] [address] Performed By: #### 5 8410-2, 11830-2 ####HERRERA LABORATORYCLIA [id number] [address] [place] Platelets (Bld) [#/Vol] 217 10*3/uL Normal 150-400 [facility] Comment on above: Order Comment: Speci men Type: BLOOD SPECIMENOrdering Facility: [facility] Address: [address] [place] [address] Performed By: #### 5 8410-2, 26827-5 ####HERRERA LABORATORYCLIA [id number] [address] [place] RBC (Bld) [#/Vol] 2.38 10*6/uL Low 4.20-6.00 [facility] Comment on above: Order Comment: Speci men Type: BLOOD SPECIMENOrdering Facility: [facility] Address: [address] [place] [address] Performed By: #### 5 8410-2, 78986-7 ####HERRERA LABORATORYCLIA [id number] [address] WBC (Bld) [#/Vol] 5.04 10*3/uL Normal 3.70-11.00 [facility] Comment on above: Order Comment: Speci men Type: BLOOD SPECIMENOrdering Facility: [facility] Address: [address] [place] [address] Performed By: #### 5 8410-2, 53945-4 ####HERRERA LABORATORYCLIA [id number] [address] Erythrocyte distribution width (RBC) [Ratio] 16.1 % High 11.5-15.0 [facility] Comment on above: Order Comment: Speci men Type: BLOOD SPECIMENOrdering Facility: [facility] Address: [address] [place] [address] Performed By: #### 5 8410-2 ####HERRERA LABORATORYCLIA [id number] [address] Hematocrit (Bld) [Volume fraction] 22.1 % Low 39.0-51.0 [facility] Comment on above: Order Comment: Speci men Type: BLOOD SPECIMENOrdering Facility: [facility] Address: [address] [place] [address] Performed By: #### 5 8410-2 ####HERRERA LABORATORYCLIA [id number] [address] Hemoglobin (Bld) [Mass/Vol] 7.0 g/dL Low 13.0-17.0 [facility] Comment on above: Order Comment: Speci men Type: BLOOD SPECIMENOrdering Facility: [facility] Address: [address] [place] [address] Performed By: #### 5 8410-2 ####HERRERA LABORATORYCLIA [id number] [address] MCH (RBC) [Entitic mass] 28.5 pg Normal 26.0-34.0 [facility] Comment on above: Order Comment: Speci men Type: BLOOD SPECIMENOrdering Facility: [facility] Address: [address] [place] [address] Performed By: #### 5 8410-2 ####HERRERA LABORATORYCLIA [id number] [address] MCHC (RBC) [Mass/Vol] 31.7 g/dL Normal 30.5-36.0 [facility] Comment on above: Order Comment: Speci men Type: BLOOD SPECIMENOrdering Facility: [facility] Address: [address] [place] [address] Performed By: #### 5 8410-2 ####HERRERA LABORATORYCLIA [id number] [address] MCV (RBC) [Entitic vol] 89.8 fL Normal 80.0-100.0 [facility] Comment on above: Order Comment: Speci men Type: BLOOD SPECIMENOrdering Facility: [facility] Address: [address] [place] [address] Performed By: #### 5 8410-2 ####HERRERA LABORATORYCLIA [id number] [place] [address] [place] Nucleated RBC (Bld) [#/Vol] 10*3/uL Normal <0.01 [facility] Comment on above: Order Comment: Speci men Type: BLOOD SPECIMENOrdering Facility: [facility] Address: [address] [place] [address] Performed By: #### 5 8410-2 ####HERRERA LABORATORYCLIA [id number] [place] [address] [place] Platelet mean volume (Bld) [Entitic vol] 9.0 fL Normal 9.0-12.7 [facility] Comment on above: Order Comment: Speci men Type: BLOOD SPECIMENOrdering Facility: [facility] Address: [address] [place] [address] Performed By: #### 5 8410-2 ####HERRERA LABORATORYCLIA [id number] [address] [place] Platelets (Bld) [#/Vol] 223 10*3/uL Normal 150-400 [facility] Comment on above: Order Comment: Speci men Type: BLOOD SPECIMENOrdering Facility: [facility] Address: [address] [place] [address] Performed By: #### 5 8410-2 ####HERRERA LABORATORYCLIA [id number] [place] [address] [place] RBC (Bld) [#/Vol] 2.46 10*6/uL Low 4.20-6.00 [facility] Comment on above: Order Comment: Speci men Type: BLOOD SPECIMENOrdering Facility: [facility] Address: [address] [place] [address] Performed By: #### 5 8410-2 ####HERRERA LABORATORYCLIA [id number] [address] [place] WBC (Bld) [#/Vol] 5.06 10*3/uL Normal 3.70-11.00 [facility] Comment on above: Order Comment: Speci men Type: BLOOD SPECIMENOrdering Facility: [facility] Address: [address] [place] [address] Performed By: #### 5 8410-2 ####HERRERA LABORATORYCLIA [id number] [address] OF [facility] CONSULTon 01-07-2025 CONSULT [facility] CONSULT Normal [facility] CONSULT PROGon 01-07-2025 CONSULT PROG [facility] MAE DIRECTon 01-07-2025 DAGT, ANTI-C3B,C3D Positive [facility] Comment on above: Order Comment: Speci men Type: BLOOD SPECIMENOrdering Facility: [facility] Address: [address] [place] [address] Performed By: #### D AGT ####[facility] BLOOD BANKCLIA [id number] [address]#### GORDO [id number] ####[facility] BLOOD BANKCLIA [id number] [place] [address]#### TSCR ####[facility] BLOOD BANKCLIA [id number] [address] BLOOD BANKCLIA [id number] [address] STATES [facility] DAGT, ANTI-IGG Positive [facility] Comment on above: Order Comment: Speci men Type: BLOOD SPECIMENOrdering Facility: [facility] Address: [address] [place] [address] Performed By: #### D AGT ####[facility] BLOOD BANKCLIA [id number] [address]#### [place], [id number] ####[facility] BLOOD BANKCLIA [id number] [address]#### TSCR ####[facility] BLOOD BANKCLIA [id number] [address] BLOOD BANKCLIA [id number] [place] [address] [place] DAGT, POLYSPECIFIC AHG Positive Normal [facility] Comment on above: Order Comment: Speci men Type: BLOOD SPECIMENOrdering Facility: [facility] Address: [address] [place] [address] Performed By: #### D AGT ####[facility] BLOOD BANKCLIA [id number] [place] [address] [place]#### ABORH, [id number] ####[facility] BLOOD BANKCLIA [id number] [address] [place]#### TSCR ####[facility] BLOOD BANKCLIA [id number] [address] BLOOD BANKCLIA [id number] [address] [place] HIGH SENSITIVITY TROPONIN T (THIRD) 3 HRS AFTER INITIALon 01-07-2025 Troponin T.cardiac High sensitivity method [Mass/Vol] 37 ng/L High <12 [facility] Comment on above: Order Comment: Speci men Type: BLOOD SPECIMENOrdering Facility: [facility] Address: [address] [place] [address] Performed By: #### B HB, [id number], 02612-2 ####HERRERA LABORATORYCLIA [id number] [place] [address] [place] LACTATE DEHYDROGENASEon 07- LDH [Catalytic activity/Vol] 371 U/L High 135 - 225 U/L [facility] LDH SerPl-cCncon 01-07-2025 LDH [Catalytic activity/Vol] 336 U/L High 135-225 [facility] Comment on above: Order Comment: Speci men Type: BLOOD SPECIMENOrdering Facility: [facility] Address: [address] [place] [address] Performed By: #### 2 532-0 ####[facility] LABCLIA [id number] [place] [address] [place] LDH [Catalytic activity/Vol] on 01-07-2025 Interpretation and review of laboratory results Abnormal [facility] Lactate (Bld) [Moles/Vol]on 01-07-2025 Lactate [Moles/Vol] 2.7 mmol/L High 0.5-2.2 [facility] Comment on above: Order Comment: Speci men Type: BLOOD SPECIMENOrdering Facility: [facility] Address: [facility] [address] Performed By: #### 3 2693-4 ####HERRERA LABORATORYCLIA [id number] [place] [address] [place] Lactate [Moles/Vol] 5.7 mmol/L High 0.5-2.2 [facility] Comment on above: Order Comment: Speci men Type: BLOOD SPECIMENOrdering Facility: [facility] Address: [address] [place] [address] Performed By: #### 3 2693-4 ####HERRER[facility] LABORATORYCLIA [id number] [place] [address] [place] Magnesium SerPl-mCncon 01-07 Magnesium [Mass/Vol] 2.2 mg/dL Normal 1.7-2.3 [facility] Comment on above: Order Comment: Speci men Type: BLOOD SPECIMENOrdering Facility: [facility] Address: [address] [place] [address] Performed By: #### 1 9123-9, 45955-6, 2777-1 ####HERRERA LABORATORYCLIA [id number] [place] [address] [place] Magnesium [Mass/Vol] 1.9 mg/dL Normal 1.7-2.3 [facility] Comment on above: Order Comment: Speci men Type: BLOOD SPECIMENOrdering Facility: [facility] Address: [address] [place] [address] Performed By: #### 2 4321-2, 2777-1, 25357-1 ####HERRERA LABORATORYCLIA [id number] [place] [address] [place] Phosphate SerPl-mCncon 01-07 Phosphate [Mass/Vol] 2.5 mg/dL Low 2.7-4.8 [facility] Comment on above: Order Comment: Speci men Type: BLOOD SPECIMENOrdering Facility: [facility] Address: [address] [place] [address] Performed By: #### 1 9123-9, 65213-0, 2777-1 ####[facility] LABORATORYCLIA [id number] [address] Phosphate [Mass/Vol] 2.7 mg/dL Normal 2.7-4.8 [facility] Comment on above: Order Comment: Speci men Type: BLOOD SPECIMENOrdering Facility: [facility] Address: [address] [place] [address] Performed By: #### 2 4321-2, 2777-1, 66504-1 ####[facility] LABORATORYCLIA [id number] [address] RED CELL GENOTYPING PANELon 01-07-2025 RED CELL GENOTYPING PANEL View results in Scanned Documents link when available. Normal [facility] Comment on above: Order Comment: Speci men Type: BLOOD SPECIMENOrdering Facility: [facility] Address: [address] [place] [address] Performed By: #### R CGP ####[facility] [id number] [address] OF [facility]#### [id number] ####[facility] BLOOD BANKCLIA [id number] [address] OF [facility] Retics #on 01-07-2025 Reticulocytes (Bld) [#/Vol] 0.30116 10*3/uL Normal 0.018-0.10 0 [facility] Comment on above: Order Comment: Speci men Type: BLOOD SPECIMENOrdering Facility: [facility] Address: [address] [place] [address] Performed By: #### 5 8410-2, 17653-3 ####[facility] LABORATORYCLIA [id number] [address] Reticulocytes (Bld) [#/Vol]o n 01-07-2025 Reticulocytes/100 RBC (Bld) 3.2 % High 0.4-2.0 [facility] Comment on above: Order Comment: Speci men Type: BLOOD SPECIMENOrdering Facility: [facility] Address: [address] [place] [address] Performed By: #### 5 8410-2, 61020-7 ####[facility] LABORATORYCLIA [id number] [place] [address] [place] STAPHYLOCOCCUS AUREUS AND MR SA SCREEN, PCR, NASALon 01-07-2025 S. aureus and MRSA panel JOSE+probe (Nose) Not detected Normal Not Detected [facility] Comment on above: Order Comment: Speci men Type: SWABOrdering Facility: [facility] Address: [address] [place] [address] Performed By: #### S APCR ####[facility] LABCLIA [id number] [address] [place] TYPE + SCREENon 01-07-2025 ABO A Normal [facility] Comment on above: Order Comment: Speci men Type: BLOOD SPECIMENOrdering Facility: [facility] Address: [address] [place] [address] Result Comment: Danielle ected result: Previously reported as Invalid on 01/07/2025 at 12:00 PM EDT. Performed By: #### D AGT ####[facility] BLOOD BANKCLIA [id number] [address] OF [facility]#### ABOR, [id number] ####[facility] BLOOD BANKCLIA [id number] [address] OF [facility]#### TSCR ####[facility] BLOOD BANKCLIA [id number] [address] BLOOD BANKCLIA [id number] [address] Result Comment: Danielle ected result: Previously reported as Invalid on 01/07/2025 at 12:04 PM EDT. Rh Nom (Bld) Positive Normal [facility] Comment on above: Order Comment: Speci men Type: BLOOD SPECIMENOrdering Facility: [facility] Address: [address] [place] [address] Result Comment: Danielle ected result: Previously reported as Positive on 01/07/2025 at 5:39 AM EDT.This is an addended report. These results have been addended to a previously final verified report. Performed By: #### D AGT ####[facility] BLOOD BANKCLIA [id number] [address] [place]#### SANGEETA CARO7 ####[facility] BLOOD BANKCLIA [id number] [address]#### TSCR ####[facility] BLOOD BANKCLIA [id number] [address] BLOOD BANKCLIA [id number] [address] TYPE AND SCREEN EXPIRATION 01/10/2025 23:59 Normal [facility] Comment on above: Order Comment: Speci men Type: BLOOD SPECIMENOrdering Facility: [facility] Address: [address] [place] [address] Result Comment: Danielle ected result: Previously reported as 01/10/2025 23:59 on 01/07/2025 at 5:39 AM EDT.This is an addended report. These results have been addended to a previously final verified report. Performed By: #### D AGT ####[facility] BLOOD BANKCLIA [id number] [address]#### TISH CARO ####[facility] BLOOD BANKCLIA [id number] [address]#### TSCR ####[facility] BLOOD BANKCLIA [id number] [address] BLOOD BANKCLIA [id number] [address] [place] ALLIED HEALTHon 01-06-2025 ALLIED HEALTH Normal [facility] B-HYDROXYBUTYRATEon 01-07-20 25 Beta hydroxybutyrate [Moles/Vol] 0.30 mmol/L High <0.28 [facility] Comment on above: Order Comment: Speci men Type: BLOOD SPECIMENOrdering Facility: [facility] Address: [address] [place] [address] Performed By: #### 1 9123-9, BHB, 77329-2, 3040-3, [id number] ####HERR[facility] LABORATORYCLIA [id number] [place] [address] [place] B2 Microglob SerPl-mCncon Jqji-2-Tyfdtwbztzdad [Mass/Vol] 12.5 ug/mL High <3.1 [facility] Comment on above: Order Comment: Demarco harris Type: BLOOD SPECIMENOrdering Facility: [facility] Address: [address] [place] [address] Result Comment: Beta -2 Microglobulin test is performed using the [employer] immunoturbidimetric method. Results obtained with different methods or kits cannot be used interchangeably. Performed By: #### 2 532-0, 1951-06 ####[facility] LABCLIA [id number] [place] [id number] [place] BONE MARROW ANALYSISon 01-06 ADDENDUM 1: Normal [facility] Comment on above: Order Comment: Demarco harris Type: BONE MARROW SPECIMENOrdering Facility: [facility] Address: [address] [place] [address] Result Comment: The purpose of this addendum is to report the results of a P53 immunostain performed on the bone marrow core biopsy (block B1). P53 immunohistochemistry demonstrates weak, heterogeneous staining in a small subset of the lymphoma cells. The above final diagnosis remains unchanged.Addendum electronically signed by Indy Mobley MD on 01/09/2025 at 1822 EDT Performed By: #### B MRT ####[facility] LABCLIA [id number] [place] [id number] [place] AP DISCLAIMER Normal [facility] Comment on above: Order Comment: Pemai men Type: BONE MARROW SPECIMENOrdering Facility: [facility] Address: [address] [place], [place] [address] Result Comment: Krysten luis ademi Developed Test (LDT) Disclaimer:Performance characteristics of immunohistochemical, immunofluorescent, and chromogenic in-situ hybridization tests have been determined by the performing laboratory within [facility]'s Deanne Sumanth [facility] Pathology and Laboratory Medicine Department ([facility], [facility], [facility], [facility], [facility], [facility], or [facility]) in a manner consistent with CLIA requirements. [...] or hemodilution. Performed By: #### B MRT ####[facility] LABCLIA [id number] [address] [place] CASE REPORT Normal [facility] Comment on above: Order Comment: Speci men Type: BONE MARROW SPECIMENOrdering Facility: [facility] Address: [address] [place] [address] Result Comment: Bone Marrow Pathology Report Case: [id number] Provider: July Pierce MD Collected: 01/06/2025 02:40 PMOrdering Location: Hematology/Oncology Received: 01/06/2025 03:27 PMPathologist: Indy Mobley MDSpecimens: A) - Bone Marrow, Aspirate, Right, Posterior, Iliac Crest B) - Bone Marrow, Biopsy, Right, Posterior, Iliac Crest C) - Bone Marrow, Clot, Right, Posterior, Iliac Crest D) - Blood Performed By: #### B MRT ####[facility] LABCLIA [id number] [address] [place] DIAGNOSIS COMMENT Normal [facility] Comment on above: Order Comment: Speci men Type: BONE MARROW SPECIMENOrdering Facility: [facility] Address: [address] [place] [address] Result Comment: The patient has a history [...] approximately 1623. Performed By: #### B MRT ####[facility] LABCLIA [id number] [address] FINAL DIAGNOSIS Normal [facility] Comment on above: Order Comment: Demarco harris Type: BONE MARROW SPECIMENOrdering Facility: [facility] Address: [address] [place] [address] Result Comment: A-C. Bone marrow, core biopsy, aspirate smears, clot section, and touch imprint:- Mantle cell lymphoma involving approximately 40% of a normocellular (20-30%) bone marrow.- Background bone marrow with trilineage hematopoiesis.- Stainable iron is present.- See comment.D. Peripheral blood smear:- Normocytic anemia.MMN 01/07/25 at 1224 EDT Performed By: #### B MRT ####[facility] LABCLIA [id number] [address] OF [facility] FINAL PERFORMING LAB Normal [facility] Comment on above: Order Comment: Demarco harris Type: BONE MARROW SPECIMENOrdering Facility: [facility] Address: [address] [place] [address] Result Comment: Diag nostic interpretation performed at: [facility], [address] [place] [address], [facility] [address] [place] [address] CLIA# [id number] Director: Russ Hollis MD Performed By: #### B MRT ####[facility] [id number] [place] [address] [place] GROSS DESCRIPTION Normal [facility] Comment on above: Order Comment: Speci men Type: BONE MARROW SPECIMENOrdering Facility: [facility] Address: [address] [place] [address] Result Comment: A. B one Marrow, Aspirate, [...] Submitted for light microscopy.Gross examination performed at [facility], [address] [place], [place] [address]FFS 01/06/2025 7:25 PM Performed By: #### B MRT ####[facility] LABIA [id number] [address] [place] MICROSCOPIC DESCRIPTION Normal [facility] Comment on above: Order Comment: Speci men Type: BONE MARROW SPECIMENOrdering Facility: [facility] Address: [address] [place] [address] Result Comment: LAURA PHERAL BLOOD:CBC (01/06/2025 3:12 [...] molecular studies. Performed By: #### B MRT ####[facility] LABCLIA [id number] [place] [address] [place] BONE MARROW BIOPSYon 025 Marti Garcia A PRN.CNP 01/06/2025 3:05 PM BONE MARROW BIOPSY Date/Start Time: 01/06/2025 2:40 PM Date/Stop Time: 01/06/2025 2:55 PM Performed by: Marti Garcia APRN.[employer] Authorized by: Marti Garcia APRN.CNP Where was Patient When this Procedure was Performed: [facility] Informed Consent Consent Obtained: Written [place] Protocol A moment to CARE was completed. [...] Biopsy Site: Right posterior sperior iliac crest Intra-Cellular Therapiesontrol biopsy system was used. Using aseptic technique, [...] been communicated to the patient or surrogate. [facility] BONE MARROW CHROMOSOME ANALo n 01-06-2025 CHROMOSOME BM Normal [facility] Comment on above: Order Comment: Speci men Type: BONE MARROW SPECIMENOrdering Facility: [facility] Address: [address] [place] [address] Result Comment: Krysten redman Accession Number: [id number]: JULY PIERCEPathologist: Emeka Pathology No: [id number] diagnosis: Autoimmune hemolytic anemia, Suspicious for B [...] recommended.Interpretation performed by Ximena Fraser, PhDPerformed by Marion Hospitallecular Pathology and Cytogenomics ([id number]), Division of LaboratoryMedicineRobert Sumanth Bal Department of Pathology & Laboratory Medicine,Diagnostics [address] [place], [place] [address]Phone: Toll free: Performed By: #### C [facility] ####[facility]OSPITALSCLIA [id number] [place] [address] [place] Bacteria Bld Culton 01-07-20 25 Bacteria identified Cx Nom (Bld) CULTURE, BLOOD: No growth 5 days Normal [facility] Comment on above: Performed By: #### 6 00-7 ####[facility] LABCLIA [id number] [place] [address] [place] CBC W Auto Differential pane l (Bld)on 01-06-2025 Basophils (Bld) [#/Vol] 10*3/uL Normal <0.11 [facility] Comment on above: Order Comment: Speci men Type: BLOOD SPECIMENOrdering Facility: [facility] Address: [address] [place] [address] Performed By: #### 5 7021-8 ####[facility] LABORATORYCLIA [id number] [place] [address] [place] Basophils/100 WBC (Bld) 0.0 % Normal [facility] Comment on above: Order Comment: Speci men Type: BLOOD SPECIMENOrdering Facility: [facility] Address: [address] [place] [address] Performed By: #### 5 7021-8 ####[facility] LABORATORYCLIA [id number] [place] [address] [place] Differential cell count method Nom (Bld) Auto Normal [facility] Comment on above: Order Comment: Speci men Type: BLOOD SPECIMENOrdering Facility: [facility] Address: [address] [place] [address] Performed By: #### 5 7021-8 ####[facility] LABORATORYCLIA [id number] [place] [address] [place] Eosinophils (Bld) [#/Vol] 10*3/uL Normal <0.46 [facility] Comment on above: Order Comment: Speci men Type: BLOOD SPECIMENOrdering Facility: [facility] Address: [address] [place] [address] Performed By: #### 5 7021-8 ####[facility] LABORATORYCLIA [id number] [place] [address] [place] Eosinophils/100 WBC (Bld) 0.0 % Normal [facility] Comment on above: Order Comment: Speci men Type: BLOOD SPECIMENOrdering Facility: [facility] Address: [address] [place] [address] Performed By: #### 5 7021-8 ####[facility] LABORATORYCLIA [id number] [place] [address] [place] Erythrocyte distribution width (RBC) [Ratio] 16.3 % High 11.5-15.0 [facility] Comment on above: Order Comment: Speci men Type: BLOOD SPECIMENOrdering Facility: [facility] Address: [address] [place] [address] Performed By: #### 5 7021-8 ####[facility] LABORATORYCLIA [id number] [address] [place] Hematocrit (Bld) [Volume fraction] 24.4 % Low 39.0-51.0 [facility] Comment on above: Order Comment: Speci men Type: BLOOD SPECIMENOrdering Facility: [facility] Address: [address] [place] [address] Performed By: #### 5 7021-8 ####[facility] LABORATORYCLIA [id number] [place] [address] [place] Hemoglobin (Bld) [Mass/Vol] 7.6 g/dL Low 13.0-17.0 [facility] Comment on above: Order Comment: Speci men Type: BLOOD SPECIMENOrdering Facility: [facility] Address: [address] [place] [address] Performed By: #### 5 7021-8 ####[facility] LABORATORYCLIA [id number] [place] [address] [place] Immature granulocytes (Bld) [#/Vol] 10*3/uL Normal <0.10 [facility] Comment on above: Order Comment: Speci men Type: BLOOD SPECIMENOrdering Facility: [facility] Address: [address] [place] [address] Performed By: #### 5 7021-8 ####[facility] LABORATORYCLIA [id number] [address] [place] Immature granulocytes/100 WBC (Bld) 0.2 % Normal [facility] Comment on above: Order Comment: Speci men Type: BLOOD SPECIMENOrdering Facility: [facility] Address: [address] [place] [address] Performed By: #### 5 7021-8 ####[facility] LABORATORYCLIA [id number] [address] Lymphocytes (Bld) [#/Vol] 0.61 10*3/uL Low 1.00-4.00 [facility] Comment on above: Order Comment: Speci men Type: BLOOD SPECIMENOrdering Facility: [facility] Address: [address] [place] [address] Performed By: #### 5 7021-8 ####[facility] LABORATORYCLIA [id number] [address] Lymphocytes/100 WBC (Bld) 14.7 % Normal [facility] Comment on above: Order Comment: Speci men Type: BLOOD SPECIMENOrdering Facility: [facility] Address: [address] [place] [address] Performed By: #### 5 7021-8 ####[facility] LABORATORYCLIA [id number] [address] MCH (RBC) [Entitic mass] 28.6 pg Normal 26.0-34.0 [facility] Comment on above: Order Comment: Speci men Type: BLOOD SPECIMENOrdering Facility: [facility] Address: [address] [place] [address] Performed By: #### 5 7021-8 ####[facility] LABORATORYCLIA [id number] [address] MCHC (RBC) [Mass/Vol] 31.1 g/dL Normal 30.5-36.0 [facility] Comment on above: Order Comment: Speci men Type: BLOOD SPECIMENOrdering Facility: [facility] Address: [address] [place] [address] Performed By: #### 5 7021-8 ####[facility] LABORATORYCLIA [id number] [address] MCV (RBC) [Entitic vol] 91.7 fL Normal 80.0-100.0 [facility] Comment on above: Order Comment: Speci men Type: BLOOD SPECIMENOrdering Facility: [facility] Address: [address] [place] [address] Performed By: #### 5 7021-8 ####[facility] LABORATORYCLIA [id number] [place] [address] [place] Monocytes (Bld) [#/Vol] 0.21 10*3/uL Normal <0.87 [facility] Comment on above: Order Comment: Speci men Type: BLOOD SPECIMENOrdering Facility: [facility] Address: [address] [place] [address] Performed By: #### 5 7021-8 ####[facility] LABORATORYCLIA [id number] [address] [place] Monocytes/100 WBC (Bld) 5.1 % Normal [facility] Comment on above: Order Comment: Speci men Type: BLOOD SPECIMENOrdering Facility: [facility] Address: [address] [place] [address] Performed By: #### 5 7021-8 ####[facility] LABORATORYCLIA [id number] [place] [address] [place] Neutrophils (Bld) [#/Vol] 3.32 10*3/uL Normal 1.45-7.50 [facility] Comment on above: Order Comment: Speci men Type: BLOOD SPECIMENOrdering Facility: [facility] Address: [address] [place] [address] Performed By: #### 5 7021-8 ####[facility] LABORATORYCLIA [id number] [place] [address] [place] Neutrophils/100 WBC (Bld) 80.0 % Normal [facility] Comment on above: Order Comment: Speci men Type: BLOOD SPECIMENOrdering Facility: [facility] Address: [address] [place] [address] Performed By: #### 5 7021-8 ####[facility] LABORATORYCLIA [id number] [place] [address] [place] Nucleated RBC (Bld) [#/Vol] 10*3/uL Normal <0.01 [facility] Comment on above: Order Comment: Speci men Type: BLOOD SPECIMENOrdering Facility: [facility] Address: [address] [place] [address] Performed By: #### 5 7021-8 ####[facility] LABORATORYCLIA [id number] [place] [address] [place] Nucleated RBC/100 WBC (Bld) [Ratio] 0.0 /100 WBC Normal [facility] Comment on above: Order Comment: Speci men Type: BLOOD SPECIMENOrdering Facility: [facility] Address: [address] [place] [address] Performed By: #### 5 7021-8 ####[facility] LABORATORYCLIA [id number] [place] [address] [place] Platelet mean volume (Bld) [Entitic vol] 9.3 fL Normal 9.0-12.7 [facility] Comment on above: Order Comment: Speci men Type: BLOOD SPECIMENOrdering Facility: [facility] Address: [address] [place] [address] Performed By: #### 5 7021-8 ####[facility] LABORATORYCLIA [id number] [place] [address] [place] Platelets (Bld) [#/Vol] 237 10*3/uL Normal 150-400 [facility] Comment on above: Order Comment: Speci men Type: BLOOD SPECIMENOrdering Facility: [facility] Address: [address] [place] [address] Performed By: #### 5 7021-8 ####[facility] LABORATORYCLIA [id number] [place] [address] [place] RBC (Bld) [#/Vol] 2.66 10*6/uL Low 4.20-6.00 [facility] Comment on above: Order Comment: Speci men Type: BLOOD SPECIMENOrdering Facility: [facility] Address: [address] [place] [address] Performed By: #### 5 7021-8 ####[facility] LABORATORYCLIA [id number] [place] [address] [place] WBC (Bld) [#/Vol] 4.15 10*3/uL Normal 3.70-11.00 [facility] Comment on above: Order Comment: Speci men Type: BLOOD SPECIMENOrdering Facility: [facility] Address: [address] [place] [address] Performed By: #### 5 7021-8 ####[facility] LABORATORYCLIA [id number] [place] [address] [place] Basophils (Bld) [#/Vol] NINF [facility] Basophils/100 WBC (Bld) 0.2 % [facility] Differential cell count method Nom (Bld) Auto [facility] Eosinophils (Bld) [#/Vol] 0.07 10*3/uL [facility] Eosinophils/100 WBC (Bld) 1.5 % [facility] Erythrocyte distribution width (RBC) [Ratio] 16.1 % High 11.5 - 15.0 % [facility] Hematocrit (Bld) [Volume fraction] 27 % Low 39.0 - 51.0 % [facility] Hemoglobin (Bld) [Mass/Vol] 8.6 g/dL Low 13.0 - 17.0 g/dL [facility] Immature granulocytes (Bld) [#/Vol] 0.03 10*3/uL [facility] Immature granulocytes/100 WBC (Bld) 0.6 % [facility] Interpretation and review of laboratory results Abnormal [facility] Lymphocytes (Bld) [#/Vol] 0.88 10*3/uL Low [facility] Lymphocytes/100 WBC (Bld) 18.6 % [facility] MCH (RBC) [Entitic mass] 28.3 pg 26.0 - 34.0 pg [facility] MCHC (RBC) [Mass/Vol] 31.9 g/dL 30.5 - 36.0 g/dL [facility] MCV (RBC) [Entitic vol] 88.8 fL 80.0 - 100.0 fL [facility] Monocytes (Bld) [#/Vol] 0.26 10*3/uL [facility] Monocytes/100 WBC (Bld) 5.5 % C [facility] Neutrophils (Bld) [#/Vol] 3.47 10*3/uL [facility] Neutrophils/100 WBC (Bld) 73.6 % [facility] Nucleated RBC (Bld) [#/Vol] NINF [facility] Nucleated RBC/100 WBC (Bld) [Ratio] 0 % /100 WBC [facility] Platelet mean volume (Bld) [Entitic vol] 9.4 fL 9.0 - 12.7 fL [facility] Platelets (Bld) [#/Vol] 232 10*3/uL [facility] RBC (Bld) [#/Vol] 3.04 10*6/uL Low 4.20 - 6.00 m/uL [facility] WBC (Bld) [#/Vol] 4.72 10*3/uL [facility] Basophils (Bld) [#/Vol] 10*3/uL Normal <0.11 [facility] Comment on above: Order Comment: Speci men Type: BLOOD SPECIMENOrdering Facility: [facility] Address: [address] [place] [address] Performed By: #### 5 7021-8 ####[facility] LABORATORYCLIA [id number] [address] STATES OF [facility] Basophils/100 WBC (Bld) 0.2 % Normal C [facility] Comment on above: Order Comment: Speci men Type: BLOOD SPECIMENOrdering Facility: [facility] Address: [address] [place] [address] Performed By: #### 5 7021-8 ####[facility] LABORATORYCLIA [id number] [place] [address] [place] Differential cell count method Nom (Bld) Auto Normal [facility] Comment on above: Order Comment: Speci men Type: BLOOD SPECIMENOrdering Facility: [facility] Address: [address] [place] [address] Performed By: #### 5 7021-8 ####[facility] LABORATORYCLIA [id number] [place] [address] [place] Eosinophils (Bld) [#/Vol] 0.07 10*3/uL Normal <0.46 [facility] Comment on above: Order Comment: Speci men Type: BLOOD SPECIMENOrdering Facility: [facility] Address: [address] [place] [address] Performed By: #### 5 7021-8 ####[facility] LABORATORYCLIA [id number] [place] [address] [place] Eosinophils/100 WBC (Bld) 1.5 % Normal [facility] Comment on above: Order Comment: Speci men Type: BLOOD SPECIMENOrdering Facility: [facility] Address: [address] [place] [address] Performed By: #### 5 7021-8 ####[facility] LABORATORYCLIA [id number] [place] [address] [place] Erythrocyte distribution width (RBC) [Ratio] 16.1 % High 11.5-15.0 [facility] Comment on above: Order Comment: Speci men Type: BLOOD SPECIMENOrdering Facility: [facility] Address: [address] [place] [address] Performed By: #### 5 7021-8 ####[facility] LABORATORYCLIA [id number] [place] [address] [place] Hematocrit (Bld) [Volume fraction] 27.0 % Low 39.0-51.0 [facility] Comment on above: Order Comment: Speci men Type: BLOOD SPECIMENOrdering Facility: [facility] Address: [address] [place] [address] Performed By: #### 5 7021-8 ####[facility] LABORATORYCLIA [id number] [place] [address] [place] Hemoglobin (Bld) [Mass/Vol] 8.6 g/dL Low 13.0-17.0 [facility] Comment on above: Order Comment: Speci men Type: BLOOD SPECIMENOrdering Facility: [facility] Address: [address] [place] [address] Performed By: #### 5 7021-8 ####[facility] LABORATORYCLIA [id number] [address] Immature granulocytes (Bld) [#/Vol] 0.03 10*3/uL Normal <0.10 [facility] Comment on above: Order Comment: Speci men Type: BLOOD SPECIMENOrdering Facility: [facility] Address: [address] [place] [address] Performed By: #### 5 7021-8 ####[facility] LABORATORYCLIA [id number] [address] Immature granulocytes/100 WBC (Bld) 0.6 % Normal [facility] Comment on above: Order Comment: Speci men Type: BLOOD SPECIMENOrdering Facility: [facility] Address: [address] [place] [address] Performed By: #### 5 7021-8 ####[facility] LABORATORYCLIA [id number] [place] [address] [place] Lymphocytes (Bld) [#/Vol] 0.88 10*3/uL Low 1.00-4.00 [facility] Comment on above: Order Comment: Speci men Type: BLOOD SPECIMENOrdering Facility: [facility] Address: [address] [place] [address] Performed By: #### 5 7021-8 ####[facility] LABORATORYCLIA [id number] [address] Lymphocytes/100 WBC (Bld) 18.6 % Normal [facility] Comment on above: Order Comment: Speci men Type: BLOOD SPECIMENOrdering Facility: [facility] Address: [address] [place] [address] Performed By: #### 5 7021-8 ####[facility] LABORATORYCLIA [id number] [address] MCH (RBC) [Entitic mass] 28.3 pg Normal 26.0-34.0 [facility] Comment on above: Order Comment: Speci men Type: BLOOD SPECIMENOrdering Facility: [facility] Address: [address] [place] [address] Performed By: #### 5 7021-8 ####[facility] LABORATORYCLIA [id number] [address] STATES OF [facility] MCHC (RBC) [Mass/Vol] 31.9 g/dL Normal 30.5-36.0 [facility] Comment on above: Order Comment: Speci men Type: BLOOD SPECIMENOrdering Facility: [facility] Address: [address] [place] [address] Performed By: #### 5 7021-8 ####[facility] LABORATORYCLIA [id number] [address] [place] MCV (RBC) [Entitic vol] 88.8 fL Normal 80.0-100.0 [facility] Comment on above: Order Comment: Speci men Type: BLOOD SPECIMENOrdering Facility: [facility] Address: [address] [place] [address] Performed By: #### 5 7021-8 ####[facility] LABORATORYCLIA [id number] [place] [address] [place] Monocytes (Bld) [#/Vol] 0.26 10*3/uL Normal <0.87 [facility] Comment on above: Order Comment: Speci men Type: BLOOD SPECIMENOrdering Facility: [facility] Address: [address] [place] [address] Performed By: #### 5 7021-8 ####[facility] LABORATORYCLIA [id number] [address] [place] Monocytes/100 WBC (Bld) 5.5 % Normal C [facility] Comment on above: Order Comment: Speci men Type: BLOOD SPECIMENOrdering Facility: [facility] Address: [address] [place] [address] Performed By: #### 5 7021-8 ####[facility] LABORATORYCLIA [id number] [address] [place] Neutrophils (Bld) [#/Vol] 3.47 10*3/uL Normal 1.45-7.50 [facility] Comment on above: Order Comment: Speci men Type: BLOOD SPECIMENOrdering Facility: [facility] Address: [address] [place] [address] Performed By: #### 5 7021-8 ####[facility] LABORATORYCLIA [id number] [address] [place] Neutrophils/100 WBC (Bld) 73.6 % Normal [facility] Comment on above: Order Comment: Speci men Type: BLOOD SPECIMENOrdering Facility: [facility] Address: [address] [place] [address] Performed By: #### 5 7021-8 ####[facility] LABORATORYCLIA [id number] [address] Nucleated RBC (Bld) [#/Vol] 10*3/uL Normal <0.01 [facility] Comment on above: Order Comment: Speci men Type: BLOOD SPECIMENOrdering Facility: [facility] Address: [address] [place] [address] Performed By: #### 5 7021-8 ####[facility] LABORATORYCLIA [id number] [address] Nucleated RBC/100 WBC (Bld) [Ratio] 0.0 /100 WBC Normal [facility] Comment on above: Order Comment: Speci men Type: BLOOD SPECIMENOrdering Facility: [facility] Address: [address] [place] [address] Performed By: #### 5 7021-8 ####[facility] LABORATORYCLIA [id number] [address] [place] Platelet mean volume (Bld) [Entitic vol] 9.4 fL Normal 9.0-12.7 [facility] Comment on above: Order Comment: Speci men Type: BLOOD SPECIMENOrdering Facility: [facility] Address: [address] [place] [address] Performed By: #### 5 7021-8 ####[facility] LABORATORYCLIA [id number] [place] [address] [place] Platelets (Bld) [#/Vol] 232 10*3/uL Normal 150-400 [facility] Comment on above: Order Comment: Speci men Type: BLOOD SPECIMENOrdering Facility: [facility] Address: [address] [place] [address] Performed By: #### 5 7021-8 ####[facility] LABORATORYCLIA [id number] [address] [place] RBC (Bld) [#/Vol] 3.04 10*6/uL Low 4.20-6.00 [facility] Comment on above: Order Comment: Speci men Type: BLOOD SPECIMENOrdering Facility: [facility] Address: [address] [place] [address] Performed By: #### 5 7021-8 ####[facility] LABORATORYCLIA [id number] [address] WBC (Bld) [#/Vol] 4.72 10*3/uL Normal 3.70-11.00 [facility] Comment on above: Order Comment: Speci men Type: BLOOD SPECIMENOrdering Facility: [facility] Address: [address] [place] [address] Performed By: #### 5 7021-8 ####[facility] LABORATORYCLIA [id number] [address] CBC W Ordered Manual Differe ntial panel (Bld)on 01-06-2025 Basophils (Bld) [#/Vol] [facility] Basophils/100 WBC (Bld) 0 % C [facility] Differential cell count method Nom (Bld) Auto [facility] Eosinophils (Bld) [#/Vol] 0.07 10*3/uL [facility] Eosinophils/100 WBC (Bld) 1.6 % [facility] Erythrocyte distribution width (RBC) [Ratio] 15.9 % High 11.5 - 15.0 % [facility] Hematocrit (Bld) [Volume fraction] 27.1 % Low 39.0 - 51.0 % [facility] Hemoglobin (Bld) [Mass/Vol] 8.4 g/dL Low 13.0 - 17.0 g/dL [facility] Immature granulocytes (Bld) [#/Vol] NINF [facility] Immature granulocytes/100 WBC (Bld) 0.4 % [facility] Interpretation and review of laboratory results Abnormal [facility] Lymphocytes (Bld) [#/Vol] 0.73 10*3/uL Low [facility] Lymphocytes/100 WBC (Bld) 16.4 % [facility] MCH (RBC) [Entitic mass] 27.8 pg 26.0 - 34.0 pg [facility] MCHC (RBC) [Mass/Vol] 31 g/dL 30.5 - 36.0 g/dL [facility] MCV (RBC) [Entitic vol] 89.7 fL 80.0 - 100.0 fL [facility] Monocytes (Bld) [#/Vol] 0.23 10*3/uL [facility] Monocytes/100 WBC (Bld) 5.2 % [facility] Neutrophils (Bld) [#/Vol] 3.41 10*3/uL [facility] Neutrophils/100 WBC (Bld) 76.4 % [facility] Nucleated RBC (Bld) [#/Vol] NINF [facility] Nucleated RBC/100 WBC (Bld) [Ratio] 0 % /100 WBC [facility] Platelet mean volume (Bld) [Entitic vol] 9.3 fL 9.0 - 12.7 fL [facility] Platelets (Bld) [#/Vol] 242 10*3/uL [facility] RBC (Bld) [#/Vol] 3.02 10*6/uL Low 4.20 - 6.00 m/uL [facility] WBC (Bld) [#/Vol] 4.46 10*3/uL [facility] This is an appended report. These results have been appended to a previously verified report. [facility] Basophils (Bld) [#/Vol] 10*3/uL Normal <0.11 C [facility] Comment on above: Order Comment: Speci men Type: BLOOD SPECIMENOrdering Facility: [facility] Address: [address] [place] [address] Performed By: #### 5 7782-5 ####[facility]ERRER[facility] LABORATORYCLIA [id number] [address] [place]#### STFREV ####[facility] LABCLIA [id number] [address] STATES OF [facility] Basophils/100 WBC (Bld) 0.0 % Normal C [facility] Comment on above: Order Comment: Speci men Type: BLOOD SPECIMENOrdering Facility: [facility] Address: [address] [place] [address] Performed By: #### 5 7782-5 ####HERRER[facility] LABORATORYCLIA [id number] [place] [address] [place]#### STFREV ####[facility] LABCLIA [id number] [address], [place] [address] [place] Differential cell count method Nom (Bld) Auto Normal [facility] Comment on above: Order Comment: Speci men Type: BLOOD SPECIMENOrdering Facility: [facility] Address: [address] [place] [address] Performed By: #### 5 7782-5 ####HERRER[facility] LABORATORYCLIA [id number] [place] [address] [place]#### STFREV ####[facility] LABCLIA [id number] [place] [address] [place] Eosinophils (Bld) [#/Vol] 0.07 10*3/uL Normal <0.46 [facility] Comment on above: Order Comment: Speci men Type: BLOOD SPECIMENOrdering Facility: [facility] Address: [address] [place] [address] Performed By: #### 5 7782-5 ####HERRER[facility] LABORATORYCLIA [id number] [place] [address] [place]#### STFREV ####[facility] LABCLIA [id number] [place] [address] [place] Eosinophils/100 WBC (Bld) 1.6 % Normal [facility] Comment on above: Order Comment: Speci men Type: BLOOD SPECIMENOrdering Facility: [facility] Address: [facility] [place] [address] Performed By: #### 5 7782-5 ####HERRER[facility] LABORATORYCLIA [id number] [place] [address] [place]#### STFREV ####[facility] LABCLIA [id number] [place] [address] [place] Erythrocyte distribution width (RBC) [Ratio] 15.9 % High 11.5-15.0 [facility] Comment on above: Order Comment: Speci men Type: BLOOD SPECIMENOrdering Facility: [facility] Address: [address] [place] [address] Performed By: #### 5 7782-5 ####[facility] LABORATORYCLIA [id number] [place] [address] [facility] [place]#### STFREV ####[facility] LABCLIA [id number] [place] [address] [place] Hematocrit (Bld) [Volume fraction] 27.1 % Low 39.0-51.0 [facility] Comment on above: Order Comment: Speci men Type: BLOOD SPECIMENOrdering Facility: [facility] Address: [address] [place] [address] Performed By: #### 5 7782-5 ####H[facility]ER[facility] LABORATORYCLIA [id number] [place] [address] [place]#### STFREV ####[facility] LABCLIA [id number] [place] [address] [place] Hemoglobin (Bld) [Mass/Vol] 8.4 g/dL Low 13.0-17.0 [facility] Comment on above: Order Comment: Speci men Type: BLOOD SPECIMENOrdering Facility: [facility] Address: [address] [place] [address] Performed By: #### 5 7782-5 ####HERRERA LABORATORYCLIA [id number] [place] [address] [place]#### STFREV ####[facility] LABCLIA [id number] [place] [address] [place] Immature granulocytes (Bld) [#/Vol] 10*3/uL Normal <0.10 [facility] Comment on above: Order Comment: Speci men Type: BLOOD SPECIMENOrdering Facility: [facility] Address: [address] [place] [address] Performed By: #### 5 7782-5 ####HERRERA LABORATORYCLIA [id number] [place] [address] [place]#### STFREV ####[facility] LABCLIA [id number] [place] [address] [place] Immature granulocytes/100 WBC (Bld) 0.4 % Normal [facility] Comment on above: Order Comment: Speci men Type: BLOOD SPECIMENOrdering Facility: [facility] Address: [address] [place] [address] Performed By: #### 5 7782-5 ####HERRERA LABORATORYCLIA [id number] [place] [address] [place]#### STFREV ####[facility] LABCLIA [id number] [place] [address] [place] Lymphocytes (Bld) [#/Vol] 0.73 10*3/uL Low 1.00-4.00 [facility] Comment on above: Order Comment: Speci men Type: BLOOD SPECIMENOrdering Facility: [facility] Address: [address] [place] [address] Performed By: #### 5 7782-5 ####HERRERA LABORATORYCLIA [id number] [place] [address] [place]#### STFREV ####[facility] LABCLIA [id number] [place] [address] [place] Lymphocytes/100 WBC (Bld) 16.4 % Normal [facility] Comment on above: Order Comment: Speci men Type: BLOOD SPECIMENOrdering Facility: [facility] Address: [address] [place] [address] Performed By: #### 5 7782-5 ####HERRERA LABORATORYCLIA [id number] [place] [address] [place]#### STFREV ####[facility] LABCLIA [id number] [place] [address] [place] MCH (RBC) [Entitic mass] 27.8 pg Normal 26.0-34.0 [facility] Comment on above: Order Comment: Speci men Type: BLOOD SPECIMENOrdering Facility: [facility] Address: [address] [place] [address] Performed By: #### 5 7782-5 ####HERRERA LABORATORYCLIA [id number] [address] [place]#### STFREV ####[facility] LABCLIA [id number] [place] [address] [place] MCHC (RBC) [Mass/Vol] 31.0 g/dL Normal 30.5-36.0 [facility] Comment on above: Order Comment: Speci men Type: BLOOD SPECIMENOrdering Facility: [facility] Address: [address] [place] [address] Performed By: #### 5 7782-5 ####HERRERA LABORATORYCLIA [id number] [address] [place]#### STFREV ####[facility] LABCLIA [id number] [place] [address] [place] MCV (RBC) [Entitic vol] 89.7 fL Normal 80.0-100.0 [facility] Comment on above: Order Comment: Speci men Type: BLOOD SPECIMENOrdering Facility: [facility] Address: [address] [place] [address] Performed By: #### 5 7782-5 ####HERRERA LABORATORYCLIA [id number] [address] [place]#### STFREV ####[facility] LABCLIA [id number] [place] [address] [place] Monocytes (Bld) [#/Vol] 0.23 10*3/uL Normal <0.87 [facility] Comment on above: Order Comment: Speci men Type: BLOOD SPECIMENOrdering Facility: [facility] Address: [address] [place] [address] Performed By: #### 5 7782-5 ####HERRERA LABORATORYCLIA [id number] [place] [address] [place]#### STFREV ####[facility] LABCLIA [id number] [place] [id number] [place] Monocytes/100 WBC (Bld) 5.2 % Normal [facility] Comment on above: Order Comment: Speci men Type: BLOOD SPECIMENOrdering Facility: [facility] Address: [address] [place] [address] Performed By: #### 5 7782-5 ####HERRERA LABORATORYCLIA [id number] [place] [address] [place]#### STFREV ####[facility] LABCLIA [id number] [place] [id number] [place] Neutrophils (Bld) [#/Vol] 3.41 10*3/uL Normal 1.45-7.50 [facility] Comment on above: Order Comment: Speci men Type: BLOOD SPECIMENOrdering Facility: [facility] Address: [address] [place] [address] Performed By: #### 5 7782-5 ####HERRERA LABORATORYCLIA [id number] [place] [address] [place]#### STFREV ####[facility] LABCLIA [id number] [place] [id number] [place] Neutrophils/100 WBC (Bld) 76.4 % Normal [facility] Comment on above: Order Comment: Speci men Type: BLOOD SPECIMENOrdering Facility: [facility] Address: [address] [place] [address] Performed By: #### 5 7782-5 ####HERRERA LABORATORYCLIA [id number] [place] [address] [place]#### STFREV ####[facility] LABCLIA [id number] [place] [address] [place] Nucleated RBC (Bld) [#/Vol] 10*3/uL Normal <0.01 [facility] Comment on above: Order Comment: Speci men Type: BLOOD SPECIMENOrdering Facility: [facility] Address: [address] [place] [address] Performed By: #### 5 7782-5 ####HERRERA LABORATORYCLIA [id number] [place] [address] [place]#### STFREV ####[facility] LABCLIA [id number] [place] [address] [place] Nucleated RBC/100 WBC (Bld) [Ratio] 0.0 /100 WBC Normal [facility] Comment on above: Order Comment: Speci men Type: BLOOD SPECIMENOrdering Facility: [facility] Address: [address] [place] [address] Performed By: #### 5 7782-5 ####HERRERA LABORATORYCLIA [id number] [place] [address] [place]#### STFREV ####[facility] LABCLIA [id number] [place] [address] [place] Platelet mean volume (Bld) [Entitic vol] 9.3 fL Normal 9.0-12.7 [facility] Comment on above: Order Comment: Speci men Type: BLOOD SPECIMENOrdering Facility: [facility] Address: [address] [place] [id number] Performed By: #### 5 7782-5 ####HERRERA LABORATORYCLIA [id number] [place] [address] [place]#### STFREV ####[facility] LABCLIA [id number] [address] [address] [place] Platelets (Bld) [#/Vol] 242 10*3/uL Normal 150-400 [facility] Comment on above: Order Comment: Speci men Type: BLOOD SPECIMENOrdering Facility: [facility] Address: [address] [place] [address] Performed By: #### 5 7782-5 ####HERRERA LABORATORYCLIA [id number] [place] [address] [place]#### STFREV ####[facility] LABCLIA [id number] [place] [id number] [place] RBC (Bld) [#/Vol] 3.02 10*6/uL Low 4.20-6.00 [facility] Comment on above: Order Comment: Speci men Type: BLOOD SPECIMENOrdering Facility: [facility] Address: [address] [place] [address] Performed By: #### 5 7782-5 ####HERRERA LABORATORYCLIA [id number] [place] [address] [place]#### STFREV ####[facility] LABCLIA [id number] [place] [address] [place] WBC (Bld) [#/Vol] 4.46 10*3/uL Normal 3.70-11.00 [facility] Comment on above: Order Comment: Speci men Type: BLOOD SPECIMENOrdering Facility: [facility] Address: [address] [place], [place] [address] Performed By: #### 5 7782-5 ####HERRERA LABORATORYCLIA [id number] [place] [address] [place]#### STFREV ####[facility] LABCLIA [id number] [place] [id number] [place] CNOVSPon 01-06-2025 CNOVSP Normal [facility] CONSULT PROGon 01-06-2025 CONSULT PROG Normal [facility] Comprehensive metabolic 2000 panelon 01-06-2025 Albumin [Mass/Vol] 2.9 g/dL Low 3.9-4.9 [facility] Comment on above: Order Comment: Speci men Type: BLOOD SPECIMENOrdering Facility: [facility] Address: [address] [place] [address] Performed By: #### 1 9123-9, BHB, 07111-6, 3040-3, [id number] ####[facility] LABORATORYCLIA [id number] [place] [address] [place] ALP [Catalytic activity/Vol] 92 U/L Normal 38-113 [facility] Comment on above: Order Comment: Speci men Type: BLOOD SPECIMENOrdering Facility: [facility] Address: [address] [place] [address] Performed By: #### 1 9123-9, BHB, 44448-8, 3040-3, [id number] ####[facility] LABORATORYCLIA [id number] [place] [address] [place] ALT [Catalytic activity/Vol] 20 U/L Normal 10-54 [facility] Comment on above: Order Comment: Speci men Type: BLOOD SPECIMENOrdering Facility: [facility] Address: [address] [place] [address] Performed By: #### 1 9123-9, BHB, 93106-4, 3040-3, [id number] ####[facility] LABORATORYCLIA [id number] [place] [address] [place] Anion gap [Moles/Vol] 21 mmol/L High 8-15 [facility] Comment on above: Order Comment: Speci men Type: BLOOD SPECIMENOrdering Facility: [facility] Address: [address] [place] [address] Performed By: #### 1 9123-9, BHB, 57446-4, 3040-3, [id number] ####HERRERA LABORATORYCLIA [id number] [place] [address] [place] AST [Catalytic activity/Vol] 16 U/L Normal 14-40 [facility] Comment on above: Order Comment: Speci men Type: BLOOD SPECIMENOrdering Facility: [facility] Address: [address] [facility] [place] [id number] Performed By: #### 1 9123-9, [facility], 83533-9, 3040-3, [id number] ####HERRERA LABORATORYCLIA [id number] [place] [address] [place] Bilirubin [Mass/Vol] 0.6 mg/dL Normal 0.2-1.3 [facility] Comment on above: Order Comment: Speci men Type: BLOOD SPECIMENOrdering Facility: [facility] Address: [address] [place] [id number] Performed By: #### 1 9123-9, [facility], 52939-7, 3040-3, [id number] ####MER[facility] LABORATORYCLIA [id number] [place] [address] [place] Calcium [Mass/Vol] 8.1 mg/dL Low 8.5-10.2 [facility] Comment on above: Order Comment: Speci men Type: BLOOD SPECIMENOrdering Facility: [facility] Address: [address] [place] [address] Performed By: #### 1 9123-9, [facility], 35867-3, 3040-3, [id number] ####HERRER[facility] LABORATORYCLIA [id number] [place] [address] [place] Chloride [Moles/Vol] 96 mmol/L Low 98-107 [facility] Comment on above: Order Comment: Speci men Type: BLOOD SPECIMENOrdering Facility: [facility] Address: [address] [place] [address] Performed By: #### 1 9123-9, [facility], 03060-2, 3040-3, [id number] ####HERRERA LABORATORYCLIA [id number] [place] [address] [place] CO2 [Moles/Vol] 14 mmol/L Low 22-30 [facility] Comment on above: Order Comment: Speci men Type: BLOOD SPECIMENOrdering Facility: [facility] Address: [address] [place] [address] Performed By: #### 1 9123-9, BHB, 42292-5, 3040-3, [id number] ####MER[facility] LABORATORYCLIA [id number] [place] [address] [place] Creatinine [Mass/Vol] 1.85 mg/dL High 0.73-1.22 [facility] Comment on above: Order Comment: Demarco harris Type: BLOOD SPECIMENOrdering Facility: [facility] Address: [address] [place] [address] Performed By: #### 1 9123-9, BHB, 70104-6, 3040-3, [id number] ####[facility] LABORATORYCLIA [id number] [place] [id number] [place] eGFRcr SerPlBld CKD-EPI 2020 38 mL/min/1.73m??? Low >=60 [facility] Comment on above: Order Comment: Pema kimberly Type: BLOOD SPECIMENOrdering Facility: [facility] Address: [address] [place] [address] Result Comment: Nancy mated Glomerular Filtration Rate [...] actual GFR. Performed By: #### 1 9123-9, B, 77684-0, 3040-3, [id number] ####[facility] LABORATORYCLIA [id number] [place] [id number] [place] Glucose [Mass/Vol] 955 mg/dL High 74-99 [facility] Comment on above: Order Comment: Demarco harris Type: BLOOD SPECIMENOrdering Facility: [facility] Address: [address] [place] [address] Result Comment: The [place] [employer] (ADA) provides guidance for cutoff [...] Standards of Medical Care in Diabetes 2016, [place] [employer]. Diabetes Care. 2016.39(Suppl 1). Performed By: #### 1 9123-9, BHB, 08884-3, 3040-3, [id number] ####MERID[facility] LABORATORYCLIA [id number] [place] [address] [place] Potassium [Moles/Vol] 5.2 mmol/L High 3.7-5.1 [facility] Comment on above: Order Comment: Demarco harris Type: BLOOD SPECIMENOrdering Facility: [facility] Address: [address] [place] [address] Performed By: #### 1 9123-9, B, 22793-1, 3040-3, [id number] ####[facility] LABORATORYCLIA [id number] [place] [address] [place] Protein [Mass/Vol] 5.6 g/dL Low 6.3-8.0 [facility] Comment on above: Order Comment: Demarco harris Type: BLOOD SPECIMENOrdering Facility: [facility] Address: [address] [place] [address] Performed By: #### 1 9123-9, B, 24928-8, 3040-3, [id number] ####HERRER[facility] LABORATORYCLIA [id number] [place] [address] [place] Sodium [Moles/Vol] 131 mmol/L Low 136-144 [facility] Comment on above: Order Comment: Demarco harris Type: BLOOD SPECIMENOrdering Facility: [facility] Address: [address] [place] [address] Performed By: #### 1 9123-9, BHB, 60996-0, 3040-3, [id number] ####HERRER[facility] LABORATORYCLIA [id number] [place] [address] [place] Urea nitrogen [Mass/Vol] 42 mg/dL High 9-24 [facility] Comment on above: Order Comment: Speci men Type: BLOOD SPECIMENOrdering Facility: [facility] Address: [address] [place] [address] Performed By: #### 1 9123-9, BHB, 86860-7, 3040-3, [id number] ####[facility] LABORATORYCLIA [id number] [address] [place] Albumin [Mass/Vol] 3.1 g/dL Low 3.9 - 4.9 g/dL [facility] ALP [Catalytic activity/Vol] 98 U/L 38 - 113 U/L [facility] ALT [Catalytic activity/Vol] 20 U/L 10 - 54 U/L [facility] Anion gap [Moles/Vol] 12 mmol/L 8 - 15 mmol/L [facility] AST [Catalytic activity/Vol] 14 U/L 14 - 40 U/L [facility] Bilirubin [Mass/Vol] 0.8 mg/dL 0.2 - 1 .3 mg/dL [facility] Calcium [Mass/Vol] 8.6 mg/dL 8.5 - 10. 2 mg/dL [facility] Chloride [Moles/Vol] 99 mmol/L 98 - 10 7 mmol/L [facility] CO2 [Moles/Vol] 21 mmol/L Low 22 - 30 mmol/L [facility] Creatinine [Mass/Vol] 1.66 mg/dL High 0.73 - 1.22 mg/dL [facility] GFR/1.73 sq M.predicted among non-blacks MDRD (S/P/Bld) [Vol rate/Area] 43 mL/min/{1.73_m2} Low - PINF [facility] Comment on above: Estimated Glomerular Filtration [...] 535 mg/dL High 74 - 99 mg/dL [facility] Comment on above: The [place] Di[employer] Association (ADA) provides guidance for [...] Standards of Medical Care in Diabetes 2016, [place] [employer]. Diabetes Care. 2016.39(Suppl 1). Potassium [Moles/Vol] 4.6 mmol/L 3.7 - 5.1 mmol/L [facility] Protein [Mass/Vol] 5.9 g/dL Low 6.3 - 8.0 g/dL [facility] Sodium [Moles/Vol] 132 mmol/L Low 136 - 144 mmol/L [facility] Urea nitrogen [Mass/Vol] 37 mg/dL High 9 - 24 mg/dL [facility] Albumin [Mass/Vol] 3.1 g/dL Low 3.9-4.9 [facility] Comment on above: Order Comment: Speci men Type: BLOOD SPECIMENOrdering Facility: [facility] Address: [address] [place] [address] Performed By: #### 3 084-1, 20163-7, 2776-06 ####HERRERA LABORATORYCLIA [id number] [address] OF [facility] ALP [Catalytic activity/Vol] 98 U/L Normal 38-113 [facility] Comment on above: Order Comment: Speci men Type: BLOOD SPECIMENOrdering Facility: [facility] Address: [address] [place], [place] [address] Performed By: #### 3 084-1, 40498-5, 2776-06 ####HERRERA LABORATORYCLIA [id number] [address] STATES OF [facility] ALT [Catalytic activity/Vol] 20 U/L Normal 10-54 [facility] Comment on above: Order Comment: Speci men Type: BLOOD SPECIMENOrdering Facility: [facility] Address: [address] [place] [address] Performed By: #### 3 084-1, 91900-8, 2776-06 ####HERRER[facility] LABORATORYCLIA [id number] [place] [address] [place] Anion gap [Moles/Vol] 12 mmol/L Normal 8-15 [facility] Comment on above: Order Comment: Speci men Type: BLOOD SPECIMENOrdering Facility: [facility] Address: [address] [place] [address] Performed By: #### 3 084-1, 51058-3, 2776-06 ####HERRER[facility] LABORATORYCLIA [id number] [place] [address] [place] AST [Catalytic activity/Vol] 14 U/L Normal 14-40 [facility] Comment on above: Order Comment: Speci men Type: BLOOD SPECIMENOrdering Facility: [facility] Address: [address] [place] [address] Performed By: #### 3 084-1, , 2776-06 ####HERRERA LABORATORYCLIA [id number] [place] [address] [place] Bilirubin [Mass/Vol] 0.8 mg/dL Normal 0.2-1.3 [facility] Comment on above: Order Comment: Speci men Type: BLOOD SPECIMENOrdering Facility: [facility] Address: [address] [place] [address] Performed By: #### 3 084-1, , 2776-06 ####HERRER[facility] LABORATORYCLIA [id number] [place] [id number] [place] Calcium [Mass/Vol] 8.6 mg/dL Normal 8.5-10.2 [facility] Comment on above: Order Comment: Speci men Type: BLOOD SPECIMENOrdering Facility: [facility] Address: [address] [place] [address] Performed By: #### 3 084-1, 21762-9, 2776-06 ####HERRER[facility] LABORATORYCLIA [id number] [place] [address] [place] Chloride [Moles/Vol] 99 mmol/L Normal 98-107 [facility] Comment on above: Order Comment: Speci men Type: BLOOD SPECIMENOrdering Facility: [facility] Address: [address] [place] [address] Performed By: #### 3 084-1, 86266-3, 2777-1 ####H[facility] LABORATORYCLIA [id number] [place] [address] [place] CO2 [Moles/Vol] 21 mmol/L Low 22-30 [facility] Comment on above: Order Comment: Speci men Type: BLOOD SPECIMENOrdering Facility: [facility] Address: [address] [place] [address] Performed By: #### 3 084-1, 32223-5, 277- ####H[facility] LABORATORYCLIA [id number] [place] [address] [place] Creatinine [Mass/Vol] 1.66 mg/dL High 0.73-1.22 [facility] Comment on above: Order Comment: Speci men Type: BLOOD SPECIMENOrdering Facility: [facility] Address: [address] [place] [address] Performed By: #### 3 084-1, 56635-3, 27712-09 ####HERR[facility] LABORATORYCLIA [id number] [place] [address] [place] eGFRcr SerPlBld CKD-EPI 2020 43 mL/min/1.73m??? Low >=60 [facility] Comment on above: Order Comment: Speci men Type: BLOOD SPECIMENOrdering Facility: [facility] Address: [address] [place] [address] Result Comment: Nancy mated Glomerular Filtration Rate [...] actual GFR. Performed By: #### 3 084-1, 65574-0, 2776-06 ####H[facility] LABORATORYCLIA [id number] [place] [id number] [place] Glucose [Mass/Vol] 535 mg/dL High 74-99 [facility] Comment on above: Order Comment: Demarco harris Type: BLOOD SPECIMENOrdering Facility: [facility] Address: [address] [place] [address] Result Comment: The [place] [employer] (ADA) provides guidance for cutoff [...] Standards of Medical Care in Diabetes 2016, [place] [employer]. Diabetes Care. 2016.39(Suppl 1). Performed By: #### 3 084-1, 30521-7, 2776-06 ####[facility] LABORATORYCLIA [id number] [place] [address] [place] Potassium [Moles/Vol] 4.6 mmol/L Normal 3.7-5.1 [facility] Comment on above: Order Comment: Demarco harris Type: BLOOD SPECIMENOrdering Facility: [facility] Address: [address] [place] [address] Performed By: #### 3 084-1, 22216-0, 2776-06 ####H[facility] LABORATORYCLIA [id number] [place] [id number] [place] Protein [Mass/Vol] 5.9 g/dL Low 6.3-8.0 [facility] Comment on above: Order Comment: Demarco harris Type: BLOOD SPECIMENOrdering Facility: [facility] Address: [address] [place] [address] Performed By: #### 3 084-1, 98635-1, 2777-1 ####H[facility]ER[facility] LABORATORYCLIA [id number] [place] [address] [place] Sodium [Moles/Vol] 132 mmol/L Low 136-144 [facility] Comment on above: Order Comment: Speci men Type: BLOOD SPECIMENOrdering Facility: [facility] Address: [address] [place] [address] Performed By: #### 3 084-1, 30949-7, 2777- ####HERRER[facility] LABORATORYCLIA [id number] [place] [address] [place] Urea nitrogen [Mass/Vol] 37 mg/dL High 9-24 [facility] Comment on above: Order Comment: Speci men Type: BLOOD SPECIMENOrdering Facility: [facility] Address: [address] [place] [address] Performed By: #### 3 084-1, 51648-3, 2777- ####[facility] LABORATORYCLIA [id number] [place] [id number] [place] ED PROV NOTEon 01-06-2025 ED PROV NOTE Normal [facility] FLOW CYTOMETRY FOR LEUKEMIA/ LYMPHOMA (FCLL) PERFORMABLEon 01-06-2025 FLOW CYTOMETRY ORDER STATUS Results will be reported under F case ID when completed Normal [facility] Comment on above: Order Comment: Speci men Type: BONE MARROW SPECIMENOrdering Facility: [facility] Address: [address] [place] [address] Performed By: #### F CLLP ####[facility] LABCLIA [id number] [address] [place] FLOW CYTOMETRY FOR LEUKEMIA/ LYMPHOMA (FCLL) REFLEXon 01-06-2025 DIAGNOSIS COMMENT Normal [facility] Comment on above: Order Comment: Speci men Type: BONE MARROW SPECIMENOrdering Facility: [facility] Address: [address] [place] [address] Performed By: #### F CLLRFLX ####[facility] LABCLIA [id number] [place] [id number] [place] FINAL PERFORMING LAB Normal [facility] Comment on above: Order Comment: Speci men Type: BONE MARROW SPECIMENOrdering Facility: [facility] Address: [address] [place] [address] Result Comment: Diag nostic interpretation performed at [facility], [facility] [place] [address] CLIA# [id number] Director: Russ Hollis M.D. Performed By: #### F CLLRFLX ####[facility] LABCLIA [id number] [address] FLOW CYTOMETRY RESULTS Normal [place] Comment on above: Order Comment: Speci men Type: BONE MARROW SPECIMENOrdering Facility: [facility] Address: [address] [place] [address] Result Comment: Spec imen type: Bone marrow aspirate.Morphology comments: See associated bone marrow report ([id number]).Viability: 93%Flow Cytometry Bone Marrow ImmunophenotypingMarker Normal Cell Type Result (B Lymphocytes)CD2 T/NK cells NegativeCD3 T-cells NegativeCD4 T-cell subset NegativeCD5 T-cells PositiveCD7 T/NK-cells NegativeCD8 T-cell subset LufawsngWC14 B-cell subset PfbokpqpMN45 Myeloid DaryqtgkSH67/56 NK cells KicgmbxdXF70 B-cells SldkjuysEK99 B-cells OezhwmwzTV99 B-cells subset RhcahzhjYK22 Blast IkpnwyfbEC49 [place]-leukocyte UvhfzrvlMN896 Dendritic BnuwegsqEQ153 B-cells Negativekappa/lambda B-cells Monotypic LambdaTRBC1 T-cells NegativeFlow [...] light chain. Performed By: #### F CLLRFLX ####[facility] LABCLIA [id number] [place] [address] [place] GROSS DESCRIPTION A. Bone Marrow Normal [facility] Comment on above: Order Comment: Speci men Type: BONE MARROW SPECIMENOrdering Facility: [facility] Address: [address] [place] [address] Result Comment: Rece ived low volume with small clot. Performed By: #### F CLLRFLX ####[facility] LABCLIA [id number] [place] [address] [place] INTERPRETATION Normal [facility] Comment on above: Order Comment: Demarco men Type: BONE MARROW SPECIMENOrdering Facility: [facility] Address: [address] [place] [address] Result Comment: The findings are diagnostic of involvement by a CD5-positive B-cell lymphoproliferative disorder. Correlation with the clinical and bone marrow histopathologic findings is suggested for final classification. at 1217 EDT Performed By: #### F CLLRFLX ####[facility] LABCLIA [id number] [place] [address] [place] Gas and Carbon monoxide pane l (BldV)on 01-06-2025 BASE DEFICIT, VENOUS -9 mmol/L Low -2-0 [facility] Comment on above: Order Comment: Speci men Type: VENOUS BLOOD SPECIMENOrdering Facility: [facility] Address: [address] [place] [address] Performed By: #### 2 4344-4 ####[facility] RESPIRATORYIA [id number] [facility]AT[facility] [id number] [place] [address] Calcium.ionized (Bld) [Mass/Vol] 1.11 mmol/L Normal 1.08-1.30 [facility] Comment on above: Order Comment: [facility] Type: VENOUS BLOOD SPECIMENOrdering Facility: [facility] Address: [address] [place] [address] Performed By: #### 2 4344-4 ####[facility] RESPIRATORYCLIA [id number] [facility] [id number] [address] [address] Carboxyhemoglobin (BldV) [Mass fraction] 2.2 % High 0.0-2.0 [facility] Comment on above: Order Comment: Speci men Type: VENOUS BLOOD SPECIMENOrdering Facility: [facility] Address: [address] [place] [id number] Result Comment: Carb oxyhemoglobin Reference Range for Smokers: 2.0-8.0% Performed By: #### 2 4344-4 ####[facility] RESPIRATORYCLIA [id number] [facility] [id number] [address] [address] CO2 (BldV) [Partial pressure] 32 mm[Hg] Low 42-55 [facility] Comment on above: Order Comment: Speci men Type: VENOUS BLOOD SPECIMENOrdering Facility: [facility] Address: [address] [place] [address] Performed By: #### 2 4344-4 ####[facility] RESPIRATORYIA [id number] [facility]AT[facility] [id number] [address] [address] CO2 adjusted to patient's actual temperature (BldV) [Partial pressure] Normal [facility] Comment on above: Order Comment: Speci men Type: VENOUS BLOOD SPECIMENOrdering Facility: [facility] Address: [address] [place] [id number] Performed By: #### 2 4344-4 ####[facility] RESPIRATORYCLIA [id number] [facility]IRAT[facility] [id number] [address] [address] HCO3 (Bld) [Moles/Vol] 16 mmol/L Low 24-28 [facility] Comment on above: Order Comment: Speci men Type: VENOUS BLOOD SPECIMENOrdering Facility: [facility] Address: [address] [place] [id number] Performed By: #### 2 4344-4 ####[facility] RESPIRATORYCLIA [id number] [facility]IR[facility] [id number] [address] [address] Hemoglobin (Bld) [Mass/Vol] 7.8 g/dL Low 13.0-17.0 [facility] Comment on above: Order Comment: Speci men Type: VENOUS BLOOD SPECIMENOrdering Facility: [facility] Address: [address] [place] [address] Performed By: #### 2 4344-4 ####[facility] RESPIRATORYIA [id number] [facility]OS[facility] RESPIRAT[facility] [id number] [address] [address] Lactate [Moles/Vol] 8.5 mmol/L High 0.5-2.2 [facility] Comment on above: Order Comment: Speci men Type: VENOUS BLOOD SPECIMENOrdering Facility: [facility] Address: [address] [place] [address] Performed By: #### 2 4344-4 ####[facility]ATORYVERMONT [facility] [id number] [facility] RESPIRAT[facility] [id number] [address] Methemoglobin (Bld) [Mass fraction] % Normal 0.0-1.5 [facility] Comment on above: Order Comment: Speci men Type: VENOUS BLOOD SPECIMENOrdering Facility: [facility] Address: [address] [place] [address] Performed By: #### 2 4344-4 ####[facility] [id number] HOSP[facility] RESPIRATORY [id number] [address] [address] O2 THERAPY RA=Room Air Normal [facility] Comment on above: Order Comment: Speci men Type: VENOUS BLOOD SPECIMENOrdering Facility: [facility] Address: [address] [place] [address] Performed By: #### 2 4344-4 ####[facility]ATORYVERMONT STATE [facility] [id number] [facility]OS[facility] RESPIRATORY [id number] [address] [address] Oxygen (BldV) [Partial pressure] 50 mm[Hg] High 35-45 [facility] Comment on above: Order Comment: Speci men Type: VENOUS BLOOD SPECIMENOrdering Facility: [facility] Address: [address] [place] [address] Performed By: #### 2 4344-4 ####[facility] RESPIRATORYCLIA [id number] [facility]IRAT[facility] [id number] [address] [address] Oxygen adjusted to patient's actual temperature (BldV) [Partial pressure] Normal [facility] Comment on above: Order Comment: Speci men Type: VENOUS BLOOD SPECIMENOrdering Facility: [facility] Address: [address] [place] [address] Performed By: #### 2 4344-4 ####[facility] RESPIRATORYIA [id number] [facility] RESPIRATORY [id number] [address] [address] Oxygen saturation in Venous blood 82 % Normal 60-85 [facility] Comment on above: Order Comment: Speci men Type: VENOUS BLOOD SPECIMENOrdering Facility: [facility] Address: [address] [place] [address] Performed By: #### 2 4344-4 ####[facility] RESPIRATORYIA [id number] [facility]OS[facility] RESPIRATORY [id number] [address] [address] Oxyhemoglobin (BldV) [Mass fraction] 80 % Normal 60-85 [facility] Comment on above: Order Comment: Speci men Type: VENOUS BLOOD SPECIMENOrdering Facility: [facility] Address: [address] [place] [address] Performed By: #### 2 4344-4 ####[facility] RESPIRATORYIA [id number] [facility] RESPIRATORY [id number] [address] pH (BldV) 7.31 [pH] Low 7.32-7.42 [facility] Comment on above: Order Comment: Speci men Type: VENOUS BLOOD SPECIMENOrdering Facility: [facility] Address: [address] [place] [address] Performed By: #### 2 4344-4 ####[facility] RESPIRATORYCLIA [id number] [facility] RESPIRATORY [id number] [address] pH adjusted to patient's actual temperature (BldV) Normal [facility] Comment on above: Order Comment: Speci men Type: VENOUS BLOOD SPECIMENOrdering Facility: [facility] Address: [address] [place] [address] Performed By: #### 2 4344-4 ####[facility] RESPIRATORYCLIA [id number] [facility] RESPIRATORY [id number] [address] [address] Potassium [Moles/Vol] 5.1 mmol/L High 3.5-5.0 [facility] Comment on above: Order Comment: Speci men Type: VENOUS BLOOD SPECIMENOrdering Facility: [facility] Address: [address] [place], [place] [address] Performed By: #### 2 4344-4 ####[facility] RESPIRATORYIA [id number] [facility]OS[facility] RESPIRATORY [id number] [address] [address] HIGH SENSITIVITY TROPONIN T (INITIAL)on 01-06-2025 Troponin T.cardiac High sensitivity method [Mass/Vol] 41 ng/L High <12 [facility] Comment on above: Order Comment: Speci men Type: BLOOD SPECIMENOrdering Facility: [facility] Address: [address] [place], [place] [address] Performed By: #### 1 9123-9, BHB, 52298-0, 3040-3, [id number] ####[facility] LABORATORYCLIA [id number] [address] STATES OF [facility] HIGH SENSITIVITY TROPONIN T (SECOND)on 01-06-2025 Troponin T.cardiac High sensitivity method [Mass/Vol] 38 ng/L High <12 [facility] Comment on above: Order Comment: Speci men Type: BLOOD SPECIMENOrdering Facility: [facility] Address: [address] [place], [place] [address] Performed By: #### L [id number] ####[facility] LABORATORYCLIA [id number] [place] [address] [place] HISTORY PHYSICALon HISTORY PHYSICAL Normal [facility] Haptoglob SerPl-mCncon 01-06 Haptoglobin [Mass/Vol] 67 mg/dL Normal 31-238 [facility] Comment on above: Order Comment: Speci men Type: BLOOD SPECIMENOrdering Facility: [facility] Address: [address] [place] [address] Performed By: #### 4 542-7 ####[facility] LABCLIA [id number] [place] [address] [place] LDH SerPl-cCncon 01-06-2025 LDH [Catalytic activity/Vol] 371 U/L High 135-225 [facility] Comment on above: Order Comment: Speci men Type: BLOOD SPECIMENOrdering Facility: [facility] Address: [address] [place] [address] Performed By: #### 2 532-0, 1952-1 ####[facility] LABCLIA [id number] [place] [address] [place] Lipase SerPl-cCncon 01-07-20 25 Lipase [Catalytic activity/Vol] 57 U/L Normal 16-61 [facility] Comment on above: Order Comment: Speci men Type: BLOOD SPECIMENOrdering Facility: [facility] Address: [address] [place] [address] Performed By: #### 1 9123-9, B, 74203-1, 3040-3, [id number] ####[facility] LABORATORYCLIA [id number] [place] [address] [place] Magnesium SerPl-mCncon 01-06 Magnesium [Mass/Vol] 2.0 mg/dL Normal 1.7-2.3 [facility] Comment on above: Order Comment: Speci men Type: BLOOD SPECIMENOrdering Facility: [facility] Address: [address] [place] [address] Performed By: #### 1 9123-9, B, 71422-6, 3040-3, [id number] ####[facility] LABORATORYCLIA [id number] [place] [address] [place] NT-proBNP SerPl-mCncon 01-06 Natriuretic peptide.B prohormone N-Terminal [Mass/Vol] 2588 pg/mL High <450 [facility] Comment on above: Order Comment: Speci men Type: BLOOD SPECIMENOrdering Facility: [facility] Address: [address] [place] [address] Performed By: #### 3 3762-6 ####[facility] LABORATORYCLIA [id number] [place] [address] [place] No Panel Informationon 01-06 Interpretation and review of laboratory results Abnormal [facility] PATHOLOGIST INTERPRETATION C BC/DIFFOrdered By: Rina Yanez on 01-06-2025 Oil Pipe Inspector Helper review Shaji (Unsp spec) [Interp] No review performed. [facility] Pathologist Interpretation, CBCDIF The Pathologist Interpretation on this sample was cancelled because the hematology analyzer did not flag any parameters as requiring manual review. If there is a specific clinical concern for which you would like a pathologist to review the blood smear, please call Lab Client Services within 28 days. [facility] PATHOLOGIST INTERPRETATION C BC/DIFFon 01-06-2025 Oil Pipe Inspector Helper review Shaji (Unsp spec) [Interp] No review performed. Normal [facility] Comment on above: Order Comment: Speci men Type: BLOOD SPECIMENOrdering Facility: [facility] Address: [address] [place] [address] Performed By: #### 5 7782-5 ####[facility] LABORATORYCLIA [id number] [place] [address] [place]#### STFREV ####[facility] LABCLIA [id number] [address] [address] [place] STAFF REVIEW, CBCDIF Normal [facility] Comment on above: Order Comment: Speci men Type: BLOOD SPECIMENOrdering Facility: [facility] Address: [address] [place] [address] Performed By: #### 5 7782-5 ####[facility] LABORATORYCLIA [id number] [place] [address] [place]#### STFREV ####[facility] LABCLIA [id number] [address] [address] [place] PHOSPHORUS INORGANICon 01-06 Phosphate [Mass/Vol] 2.5 mg/dL Low 2.7 - 4 .8 mg/dL [facility] Phosphate SerPl-mCncon 01-06 Phosphate [Mass/Vol] 2.5 mg/dL Low 2.7-4.8 [facility] Comment on above: Order Comment: Speci men Type: BLOOD SPECIMENOrdering Facility: [facility] Address: [address] [place] [address] Performed By: #### 3 084-1, 74226-9, 2777- ####[facility] LABORATORYCLIA [id number] [place] [address] [place] SEPSIS LACTATEon 01-06-2025 Lactate [Moles/Vol] 6.5 mmol/L High 0.5-2.0 [facility] Comment on above: Order Comment: Speci men Type: BLOOD SPECIMENOrdering Facility: [facility] Address: [address] [place] [address] Performed By: #### S LACT ####[facility] LABORATORYCLIA [id number] [place] [address] [place] URIC ACIDon 01-06-2025 Urate [Mass/Vol] 5.4 mg/dL 4.0 - 8.1 mg/dL [facility] Urate [facility] [Mass/Vol] 5.4 mg/dL Normal 4.0-8.1 [facility] Comment on above: Order Comment: Speci men Type: BLOOD SPECIMENOrdering Facility: [facility] Address: [address] [place] [address] Performed By: #### 3 084-1, 04104-8, 27771 ####[facility] LABORATORYCLIA [id number] [place] [address] [place] Urate [Mass/Vol]on Interpretation and review of laboratory results Normal [facility] Urinalysis complete panel (U )on 01-06-2025 Bilirubin Ql (U) Negative Normal Negative [facility] Comment on above: Order Comment: Speci men Type: URINE SPECIMENOrdering Facility: [facility] Address: [address] [place] [address] Performed By: #### 2 4356-8 ####[facility] LABORATORYCLIA [id number] [place] [address] [place] Clarity (Unsp spec) Clear Normal Clear [facility] Comment on above: Order Comment: Speci men Type: URINE SPECIMENOrdering Facility: [facility] Address: [address] [place] [address] Performed By: #### 2 4356-8 ####[facility] LABORATORYCLIA [id number] [place] [address] [place] Color (U) Yellow Normal Yellow [facility] Comment on above: Order Comment: Speci men Type: URINE SPECIMENOrdering Facility: [facility] Address: [address] [place] [address] Performed By: #### 2 4356-8 ####[facility] LABORATORYCLIA [id number] [place] [address] [place] Glucose Test strip (U) [Mass/Vol] 3+ Abnormal Negative [facility] Comment on above: Order Comment: Speci men Type: URINE SPECIMENOrdering Facility: [facility] Address: [address] [place] [address] Performed By: #### 2 4356-8 ####[facility] LABORATORYCLIA [id number] [address] [place] Hemoglobin Ql (U) Negative Normal Negative [facility] Comment on above: Order Comment: Speci men Type: URINE SPECIMENOrdering Facility: [facility] Address: [address] [place] [address] Performed By: #### 2 4356-8 ####[facility] LABORATORYCLIA [id number] [address] [place] Ketones Ql (U) Negative Normal Negative [facility] Comment on above: Order Comment: Speci men Type: URINE SPECIMENOrdering Facility: [facility] Address: [address] [place] [address] Performed By: #### 2 4356-8 ####[facility] LABORATORYCLIA [id number] [place] [address] [place] Leukocyte esterase Test strip Ql (U) Negative Normal Negative [facility] Comment on above: Order Comment: Speci men Type: URINE SPECIMENOrdering Facility: [facility] Address: [address] [place] [address] Performed By: #### 2 4356-8 ####[facility] LABORATORYCLIA [id number] [place] [address] [place] Nitrite Ql (U) Negative Normal Negative [facility] Comment on above: Order Comment: Speci men Type: URINE SPECIMENOrdering Facility: [facility] Address: [address] [place] [address] Performed By: #### 2 4356-8 ####[facility] LABORATORYCLIA [id number] [place] [address] [place] pH (U) 6.0 [pH] Normal 5.0-8.0 [facility] Comment on above: Order Comment: Speci men Type: URINE SPECIMENOrdering Facility: [facility] Address: [address] [place] [address] Performed By: #### 2 4356-8 ####[facility] LABORATORYCLIA [id number] [place] [address] [place] Protein (U) [Mass/Vol] Negative Normal Negative [facility] Comment on above: Order Comment: Speci men Type: URINE SPECIMENOrdering Facility: [facility] Address: [address] [place] [address] Performed By: #### 2 4356-8 ####[facility] LABORATORYCLIA [id number] [place] [address] [place] RBC LM.HPF (Urine sed) [#/Area] 0-3 /HPF Normal 0-3 /HPF [facility] Comment on above: Order Comment: Speci men Type: URINE SPECIMENOrdering Facility: [facility] Address: [address] [place] [address] Performed By: #### 2 4356-8 ####[facility] LABORATORYCLIA [id number] [place] [address] [place] Specific gravity (U) [Rel density] 1.010 Normal 1.005-1.03 0 [facility] Comment on above: Order Comment: Speci men Type: URINE SPECIMENOrdering Facility: [facility] Address: [address] [place] [address] Performed By: #### 2 4356-8 ####[facility] LABORATORYCLIA [id number] [address] [place] Urobilinogen Ql (U) 0.2 EU/dL Normal 0.2-1.0 EU/dL [facility] Comment on above: Order Comment: Speci men Type: URINE SPECIMENOrdering Facility: [facility] Address: [address] [place] [address] Performed By: #### 2 4356-8 ####[facility] LABORATORYCLIA [id number] [place] [address] [place] WBC LM.HPF (Urine sed) [#/Area] 0-5 /HPF Normal 0-5 /HPF [facility] Comment on above: Order Comment: Speci men Type: URINE SPECIMENOrdering Facility: [facility] Address: [address] [place] [address] Performed By: #### 2 4356-8 ####[facility] LABORATORYCLIA [id number] [place] [address] [place] XR CHEST 1V FRONTAL PORTon 0 01-06-2025 XR CHEST 1V FRONTAL PORT Normal [facility] CNPNon 01-05-2025 CNPN Normal [facility] BLOOD BANK PLACEHOLDER, ANTI BODY INTERPRETATIONon 01-01-2025 Blood Bank Report, Antibody Interpretation See Pathology Report [facility] Type and Screen Expiration 12/26/2024 23:59 [facility] BLOOD BANK REPORT, ANTIBODY INTERPRETATIONOrdered By: Umair Olivier on 01-01-2025 Pathology Interpretation p1wmjPAeCDBqoYNeLGMtDhj8sSN pu3J8difuTS7aqKjmhQg9iJzzXX VanoH3fZDkDTmhh0vyRSO2g8lhu anqHSWiPQxfJm1mxSBkeYxwXpWl XXEyPDv7pJ01DMVmrH2rgHWeYMb 9XHBhcGVydzEyMjQwXHBhcGVyaD D3FTTxAR7zjttmRFlfCSyzJRIec uE7XCAkwFMqU0RnDUGmDE1psazd OPV9JFxcOLPyUGK2QkCfZBDld8H nahz6NnLglPNzZHbqhWXcgvdmip AjIXObCADhmTYeOF19HLLcdDKgK PQevxKiVC96DAWyEKWhUKDZzVYz qKDlllGIURNbK3Yod3YjTW7zxP6 xkYIqXBOwjN6qfXACADCsqjBwO6 PgHZZoJLBgwqB0UEN6aI5mRvLEv GUgcmVmZXJlbmNlIGxhYiByZXBv frNwIWNgfS3vvCYdjmJwEWjyKOV 1XLIibTrpqK8axSvcqcV2BRO8SU FuZCBhdXRvLWFudGktRSBpcyBpZ GVudGlmaWVkLiBBdXRvLWFudGkt FXR9sAHaSCLjrT2krIEsgmDgSTT ATR0aqAIzCRVrfvCeyjKbSEYncF MwQRQtdtIpnxefAI7gNZ8xjKVcQ PAhDLpxyRSuQXHuPSQ9oC2orQ24 jjXsqHGga6w8lWltAIQtOQ3kUH7 rW2ljteuvNEttY85nqxNbVAMpb3 9pzLVensSfd08xTJ8wMMZvBYCop nogIMYyRJzfEKGmQsJcPG8rUFWa YWIgYWxzbyByZXBvcnRzIGFudGl yd7K1BARxIEE7pDWjtKnpe9Dxkt 6iRAMwUTJrqzXum1RvL5hdjQJdx Mhjo2qdS5lkpRFozw81TRQ2zZXy wCDsGGEiTBBzlHBePUfuyV5dmAZ uSqD6tbPns7T4h6brpxAxFBFedB vfeaPlXQRRA9Jzezy6dOGcQEN8U 9tmo9UkqwRlo1Slc3BhaECfvMFs FBOieTgtm9N0QSJmUVDmaEVgAJ8 vdGVkLiBccGFyXHBhciBSZWQgY2 CqiIKde0PrOUE9bABflkAphQTmU XCokG5ub9AoPISbGO0iXg45xSTd yYcaaERpYK7zwM3pfza4kx0bkYf wea7uVF6bgpHpLPGkHMAnOgvdaN eoo34dNEMsk9YsqU5eDNDmLMGpJ 4BuJZrzrNGnUtNxYSU6jTMjXVMz i96pIABnynfnfATleRqnIc6wySZ eCLMhrgPUw5PnpORabiEtiPVnh7 46IHdlIHdpbGwgcHJvdmlkZSBhb iSwY6mmVmCjbP0rG7Ift7ZwMLSa wZ9lo44pNMNqNcisZKZBS8MdQHP Em5nypnUuOSX2VXJyZTU2fD1gbt GzGn1fzLUhHUZqonZodgEiuiFsi xEwc4s4gARloZ0kNPWbNS3uZYQc SI41zdNdv5I8p7semaNdinNoG69 kdLD5dXYarQb0xXC4RHR1lN3vCR Neg5UvsdOoJPnbpDZaCFH2hPIuo kcbrY6xzI6pw94yLYAmFehbWUEp s1QzoZI1Y3zoyg8aDZFLYkG5zfb 2zqQpPQofvhKmERB0sgGsXRMyu9 X0FEZunY4eDFHyWNrbQIZ8pJ0tP ZujYbGtVGHhOMCmnj06a8ShuW9i cGFyfQ== [facility] Work Phone: [facility] Work Phone: ANTIBODY ID PATIENTon 2024 ANTIBODY IDENTIFIED Auto Anti-E Normal [facility] Comment on above: Order Comment: Speci men Type: BLOOD SPECIMENOrdering Facility: [facility] Address: [address] [place] [address] Result Comment: Non- specific AbyTesting Performed at the [facility]. Additional history of Warm Auto and Auto anti-E from [facility] Performed By: #### W KUP4, %MARYANN, [id number] ####CC MAIN BLOOD BANKCLIA [id number] [address] [address] [place] [facility] TYPE AND SCREEN EXPIRATION 01/01/2025 23:59 Normal [facility] Comment on above: Order Comment: Speci men Type: BLOOD SPECIMENOrdering Facility: [facility] Address: [address] [place] [address] Performed By: #### W KUP4, %MARYANN, [id number] ####CC MAIN BLOOD BANKCLIA [id number] [address] [place] ANTIBODY WORKUP(4)on 025 Additional Specimens Received in lab [facility] ADDITIONAL SPECIMENS Received in lab Normal [facility] Comment on above: Order Comment: Speci men Type: BLOOD SPECIMENOrdering Facility: [facility] Address: [address] [place] [address] Performed By: #### W KUP4, %MARYANN, [id number] ####CC MAIN BLOOD BANKCLIA [id number] [address] [place] BLOOD BANK COMMENTon 025 BLOOD BANK COMMENT See Comment Normal [facility] Comment on above: Order Comment: Speci men Type: BLOOD SPECIMENOrdering Facility: [facility] Address: [address] [place] [address] Result Comment: Test ing Performed at the [facility]. See Scanned Documents for [facility] Report. Performed By: #### W KUP4, %MARYANN, [id number] ####CC MAIN BLOOD BANKCLIA [id number] [address] [id number] [address] [place] CBC panel Auto (Bld)on 12-29 Erythrocyte distribution width (RBC) [Ratio] 16.1 % High 11.5-15.0 [facility] Comment on above: Order Comment: Speci men Type: BLOOD SPECIMENOrdering Facility: [facility] Address: [address] [place] [address] Performed By: #### 5 [id number] ####[facility] LABORATORYIA [id number] [place] [address] [facility] Hematocrit (Bld) [Volume fraction] 29.4 % Low 39.0-51.0 [facility] Comment on above: Order Comment: Speci men Type: BLOOD SPECIMENOrdering [facility] Address: [address] [place] [address] Performed By: #### 5 8410-2 ####[facility] LABORATORYIA [id number] [address] Hemoglobin (Bld) [Mass/Vol] 9.3 g/dL Low 13.0-17.0 [facility] Comment on above: Order Comment: Speci men Type: BLOOD SPECIMENOrdering Facility: [facility] Address: [address] [place] [address] Performed By: #### 5 8410-2 ####[facility] LABORATORYIA [id number] [place] [address] [place] [facility] MCH (RBC) [Entitic mass] 28.7 pg Normal 26.0-34.0 [facility] Comment on above: Order Comment: Speci men Type: BLOOD SPECIMENOrdering Facility: [facility] Address: [address] [place] [address] Performed By: #### 5 8410-2 ####[facility] LABORATORYIA [id number] [place] [address] [place] [facility] MCHC (RBC) [Mass/Vol] 31.6 g/dL Normal 30.5-36.0 [facility] Comment on above: Order Comment: Speci men Type: BLOOD SPECIMENOrdering Facility: [facility] Address: [address] [place] [address] Performed By: #### 5 8410-2 ####[facility] LABORATORYIA [id number] [place] [address] [facility] MCV (RBC) [Entitic vol] 90.7 fL Normal 80.0-100.0 [facility] Comment on above: Order Comment: Speci men Type: BLOOD SPECIMENOrdering Facility: [facility] Address: [address] [place] [address] Performed By: #### 5 8410-2 ####[facility] LABORATORYIA [id number] [place] [address] [place] Nucleated RBC (Bld) [#/Vol] 10*3/uL Normal <0.01 [facility] Comment on above: Order Comment: Speci men Type: BLOOD SPECIMENOrdering Facility: [facility] Address: [address] [place] [address] Performed By: #### 5 8410-2 ####[facility]ITAL[facility] [id number] [address] [place] Platelet mean volume (Bld) [Entitic vol] 9.9 fL Normal 9.0-12.7 [facility] Comment on above: Order Comment: Speci men Type: BLOOD SPECIMENOrdering Facility: [facility] Address: [address] [place] [address] Performed By: #### 5 8410-2 ####[facility] LABORATORYIA [id number] [place] [address] [facility] [place] Platelets (Bld) [#/Vol] 266 10*3/uL Normal 150-400 [facility] Comment on above: Order Comment: Speci men Type: BLOOD SPECIMENOrdering Facility: [facility] Address: [address] [place] [address] Performed By: #### 5 8410-2 ####[facility] LABORATORYIA [id number] [place] [address] [place] RBC (Bld) [#/Vol] 3.24 10*6/uL Low 4.20-6.00 [facility] Comment on above: Order Comment: Speci men Type: BLOOD SPECIMENOrdering Facility: [facility] Address: [address] [place] [address] Performed By: #### 5 8410-2 ####[facility] LABORATORYCLIA [id number] [address] WBC (Bld) [#/Vol] 7.64 10*3/uL Normal 3.70-11.00 [facility] Comment on above: Order Comment: Speci men Type: BLOOD SPECIMENOrdering Facility: [facility] Address: [address] [place] [address] Performed By: #### 5 8410-2 ####[facility] LABORATORYCLIA [id number] [place] [address] [place] CNOVon 12-29-2024 CNOV Normal [facility] Comprehensive metabolic 2000 panelon 12-29-2024 Albumin [Mass/Vol] 3.4 g/dL Low 3.9-4.9 [facility] Comment on above: Order Comment: Speci men Type: BLOOD SPECIMENOrdering Facility: [facility] Address: [address] [place] [address] Performed By: #### 2 4323-8 ####[facility] LABORATORYCLIA [id number] [place] [address] [place] ALP [Catalytic activity/Vol] 93 U/L Normal 38-113 [facility] Comment on above: Order Comment: Speci men Type: BLOOD SPECIMENOrdering Facility: [facility] Address: [address] [place] [address] Performed By: #### 2 4323-8 ####[facility] LABORATORYCLIA [id number] [place] [address] [place] ALT [Catalytic activity/Vol] 21 U/L Normal 10-54 [facility] Comment on above: Order Comment: Speci men Type: BLOOD SPECIMENOrdering Facility: [facility] Address: [address] [place] [address] Performed By: #### 2 4323-8 ####[facility] LABORATORYCLIA [id number] [place] [address] [place] Anion gap [Moles/Vol] 14 mmol/L Normal 8-15 [facility] Comment on above: Order Comment: Speci men Type: BLOOD SPECIMENOrdering Facility: [facility] Address: [address] [place] [address] Performed By: #### 2 4323-8 ####[facility] LABORATORYCLIA [id number] [place] [address] [place] AST [Catalytic activity/Vol] 16 U/L Normal 14-40 [facility] Comment on above: Order Comment: Speci men Type: BLOOD SPECIMENOrdering Facility: [facility] Address: [address] [place] [address] Performed By: #### 2 4323-8 ####[facility] LABORATORYCLIA [id number] [place] [address] [place] Bilirubin [Mass/Vol] 0.8 mg/dL Normal 0.2-1.3 [facility] Comment on above: Order Comment: Speci men Type: BLOOD SPECIMENOrdering Facility: [facility] Address: [address] [place] [address] Performed By: #### 2 4323-8 ####[facility] LABORATORYCLIA [id number] [place] [address] [place] Calcium [Mass/Vol] 9.0 mg/dL Normal 8.5-10.2 [facility] Comment on above: Order Comment: Speci men Type: BLOOD SPECIMENOrdering Facility: [facility] Address: [address] [place] [address] Performed By: #### 2 4323-8 ####[facility] LABORATORYCLIA [id number] [place] [address] [place] Chloride [Moles/Vol] 102 mmol/L Normal 98-107 [facility] Comment on above: Order Comment: Speci men Type: BLOOD SPECIMENOrdering Facility: [facility] Address: [address] [place] [address] Performed By: #### 2 4323-8 ####[facility] LABORATORYCLIA [id number] [place] [address] [place] CO2 [Moles/Vol] 21 mmol/L Low 22-30 [facility] Comment on above: Order Comment: Speci men Type: BLOOD SPECIMENOrdering Facility: [facility] Address: [address] [place] [address] Performed By: #### 2 4323-8 ####[facility] LABORATORYCLIA [id number] [place] [address] [place] Creatinine [Mass/Vol] 1.63 mg/dL High 0.73-1.22 [facility] Comment on above: Order Comment: Speci men Type: BLOOD SPECIMENOrdering Facility: [facility] Address: [address] [place] [address] Performed By: #### 2 4323-8 ####[facility] LABORATORYCLIA [id number] [place] [address] [place] eGFRcr SerPlBld CKD-EPI 2020 44 mL/min/1.73m??? Low >=60 [facility] Comment on above: Order Comment: Speci men Type: BLOOD SPECIMENOrdering Facility: [facility] Address: [address] [place] [address] Result Comment: Nancy mated Glomerular Filtration Rate [...] GFR. Performed By: #### 2 4323-8 ####[facility] LABORATORYCLIA [id number] [place] [address] [place] Glucose [Mass/Vol] 438 mg/dL High 74-99 [facility] Comment on above: Order Comment: Speci men Type: BLOOD SPECIMENOrdering Facility: [facility] Address: [address] [place] [address] Result Comment: The [place] [employer] (ADA) provides guidance for cutoff [...] Standards of Medical Care in Diabetes 2016, [place] [employer]. Diabetes Care. 2016.39(Suppl 1). Performed By: #### 2 4323-8 ####[facility] LABORATORYCLIA [id number] [place] [address] [place] Potassium [Moles/Vol] 3.9 mmol/L Normal 3.7-5.1 [facility] Comment on above: Order Comment: Speci men Type: BLOOD SPECIMENOrdering Facility: [facility] Address: [address] [place] [address] Performed By: #### 2 4323-8 ####[facility] LABORATORYCLIA [id number] [place] [address] [place] Protein [Mass/Vol] 6.0 g/dL Low 6.3-8.0 [facility] Comment on above: Order Comment: Speci men Type: BLOOD SPECIMENOrdering Facility: [facility] Address: [address] [place], [place] [address] Performed By: #### 2 4323-8 ####[facility] LABORATORYCLIA [id number] [place] [address] [place] Sodium [Moles/Vol] 137 mmol/L Normal 136-144 [facility] Comment on above: Order Comment: Demarco harris Type: BLOOD SPECIMENOrdering Facility: [facility] Address: [address] [place] [address] Performed By: #### 2 4323-8 ####[facility] LABORATORYCLIA [id number] [place] [address] [place] Urea nitrogen [Mass/Vol] 46 mg/dL High 9-24 [facility] Comment on above: Order Comment: Demarco harris Type: BLOOD SPECIMENOrdering Facility: [facility] Address: [address] [place] [address] Performed By: #### 2 4323-8 ####[facility] LABORATORYCLIA [id number] [place] [address] [place] HbA1c (Bld)on 12-29-2024 Average glucose Estimated from glycated hemoglobin (Bld) [Mass/Vol] 143 mg/dL Normal [facility] Comment on above: Order Comment: Demarco harris Type: BLOOD SPECIMENOrdering Facility: [facility] Address: [address] [place] [address] Result Comment: eAG: (Estimated average glucose) is a calculated value from HgbA1c and is field service representative of the average blood glucose level in the last 2-3 month period. Performed By: #### 5 5454-3 ####[facility] LABCLIA [id number] [place] [address] [place] HbA1c (Bld) [Mass fraction] 6.6 % High 4.3-5.6 [facility] Comment on above: Order Comment: Demarco harris Type: BLOOD SPECIMENOrdering Facility: [facility] Address: [address] [place] [address] Result Comment: Amer [place] Diabetes Association guidelines indicate that patients with HgbA1c in the range 5.7-6.4% are at increased risk for development of diabetes, and intervention by lifestyle modification may be beneficial. HgbA1c greater or equal to 6.5% is considered diagnostic of diabetes. Performed By: #### 5 5454-3 ####[facility] LABCLIA [id number] [place] [address] [facility] [place] Lipid 1996 panelon 5 Cholesterol [Mass/Vol] 161 mg/dL Normal <200 [place] Comment on above: Order Comment: Speci men Type: BLOOD SPECIMENOrdering Facility: [facility] Address: [address] [place] [address] Result Comment: <200 mg/dL, Desirable 200-239 mg/dL, Borderline high>239 mg/dL, High Performed By: #### 2 4331-1 ####[facility] LABIA [id number] [address] OF [facility] Cholesterol in HDL [Mass/Vol] 35 mg/dL Low >39 [facility] Comment on above: Order Comment: Speci [facility] Type: BLOOD SPECIMENOrdering Facility: [facility] Address: [address] [place] [address] Result Comment: 40-5 9 mg/dL, Acceptable>59 mg/dL, High: Negative risk factor for coronary heart disease<40 mg/dL, Low: Positive risk factor for coronary heart disease Performed By: #### 2 4331-1 ####[facility] LABIA [id number] [address] [place] Cholesterol in LDL [Mass/Vol] 99 mg/dL Normal <100 [facility] Comment on above: Order Comment: Speci [facility] Type: BLOOD SPECIMENOrdering Facility: [facility] Address: [address] [place] [address] Result Comment: <100 mg/dL, Optimal 100-129 mg/dL, Near optimal/above optimal 130-159 mg/dL, Borderline high 160-189 mg/dL, High>189 mg/dL, Very highSecondary prevention optimal LDL Cholesterol levels are recommended to be <70 mg/dLLDL cholesterol is calculated using the Edouard-NIH equation. Performed By: #### 2 4331-1 ####[facility] LABCLIA [id number] [place] [address] [place] Cholesterol in LDL/Cholesterol in HDL [Mass ratio] 2.83 {ratio} High <2.54 [facility] Comment on above: Order Comment: Speci men Type: BLOOD SPECIMENOrdering Facility: [facility] Address: [address] [place] [address] Result Comment: Refe rence:1. National Cholesterol Education Program ATP III Guideline At-A-Glance Quick Desk Reference: National Heart, Lung, and Blood [place]. National Institutes of Health. 2001: NIH Publication No. 01-3305.2. An International Atherosclerosis Society position paper: global recommendations for the management of dyslipidemia: executive summary, Atherosclerosis. 2014: 232(2):410-413. Performed By: #### 2 4331-1 ####[facility] LABCLIA [id number] [place] [address] [place] Cholesterol in VLDL [Mass/Vol] 25 mg/dL Normal <30 [facility] Comment on above: Order Comment: Speci men Type: BLOOD SPECIMENOrdering Facility: [facility] Address: [address] [place] [address] Performed By: #### 2 4331-1 ####[facility] LABIA [id number] [address] [place] Cholesterol non HDL [Mass/Vol] 126 mg/dL Normal <130 [facility] Comment on above: Order Comment: Speci men Type: BLOOD SPECIMENOrdering Facility: [facility] Address: [address] [place] [address] Result Comment: <130 mg/dL, Optimal 130-159 mg/dL, Near optimal/above optimal 160-189 mg/dL, Borderline high 190-219 mg/dL, High>219 mg/dL, Very highSecondary prevention optimal non HDL Cholesterol levels are recommended to be <100 mg/dL Performed By: #### 2 4331-1 ####[facility] LABCLIA [id number] [address] [address] [place] Cholesterol.total/Veronika sterol in HDL [Mass ratio] 4.60 {ratio} Normal <5.10 [facility] Comment on above: Order Comment: Speci men Type: BLOOD SPECIMENOrdering Facility: [facility] Address: [address] [place] [address] Performed By: #### 2 4331-1 ####[facility] LABCLIA [id number] [address] [place] FASTING TIME 12 hrs Normal [facility] Comment on above: Order Comment: Speci men Type: BLOOD SPECIMENOrdering Facility: [facility] Address: [address] [place] [address] Performed By: #### 2 4331-1 ####[facility] LABCLIA [id number] [address] [place] Triglyceride [Mass/Vol] 154 mg/dL High <150 [facility] Comment on above: Order Comment: Speci men Type: BLOOD SPECIMENOrdering Facility: [facility] Address: [address] [place] [address] Result Comment: <150 mg/dL, Normal 150-199 mg/dL, Borderline high 200-499 mg/dL, High>499 mg/dL, Very high Performed By: #### 2 4331-1 ####[facility] LABCLIA [id number] [address] [place] CT CHEST WO IVCONon 12-28-19 CT CHEST WO IVCON Normal [facility] CT Chest WO contraston 12-27 IMPRESSION: Very mild dependent atelectasis. No suspicious mass or adenopathy in the chest. Cardiomegaly. Trace pericardial fluid. Enlarged spleen. Bilateral nephrolithiasis Mine Motor Operator: MICHELE Transcribe Date/Time: Dec 27 2024 12:22P Dictated by : ANTONIO NAILS MD This examination was interpreted and the report reviewed and electronically signed by: ANTONIO NAILS MD on Dec 27 2024 1:45PM [facility] * * *Final Report* * * DATE OF EXAM: Dec 27 2024 10:59AM [facility]ST WO IVCON / [...] Bilateral nephrolithiasis Localizer images: No additional findings. [facility] Provider, Kaitlyn Narinder [facility] - 12/27/2024 * * *Final Report* * * DATE OF EXAM: Dec 27 2024 10:59AM [facility] [place] CHEST WO IVCON / [...] Trace pericardial fluid. Enlarged spleen. Bilateral nephrolithiasis Mine Motor Operator: MICHELE Transcribe Date/Time: Dec 27 2024 12:22P Dictated by : ANTONIO NAILS MD This examination was interpreted and the report reviewed and electronically signed by: ANTONIO NAILS MD on Dec 27 2024 1:45PM EST [facility] CT Chest WO contrastOrdered By: Ccf Provider on 12-27-[address] [facility] [address] NECK SOFT TISSUE WO IVCON on 12-27-2024 CT NECK SOFT TISSUE WO IVCON [facility] CT Neck WO contraston 2024 IMPRESSION: Left supraclavicular pathological lymph node conglomerate 37 x 28 mm. Increase in size and number of left-sided cervical lymph nodes compared to the right without additional pathologically enlarged lymph nodes by size criteria. Infiltrative expansile appearance of the inferior aspect of the left parotid gland suggest other focal inflammatory process or infiltrative neoplasm. Mine Motor Operator: MICHELE Transcribe Date/Time: Dec 27 2024 11:08A Dictated by : RONNY YU MD This examination was interpreted and the report reviewed and electronically signed by: RONNY YU MD on Dec 27 2024 11:14AM [facility] * * *Final Report* * * DATE OF EXAM: Dec 27 2024 10:59AM [facility] NECK SOFT TISSUE WO [...] under a separate accession. Other: Not applicable. [facility] Provider, [facility] - 12/27/2024 * * *Final Report* * * DATE OF EXAM: Dec 27 2024 10:59AM [facility] [place] NECK SOFT TISSUE WO [...] other focal inflammatory process or infiltrative neoplasm. Mine Motor Operator: [facility] Transcribe Date/Time: Dec 27 2024 11:08A Dictated by : RONNY YU MD This examination was interpreted and the report reviewed and electronically signed by: RONNY YU MD on Dec 27 2024 11:14AM EST [facility] No Panel Informationon 12-27 Radiology Study observation (narrative) [facility] Patient Letteron 12-26-2024 Patient Letter (Inserted Image. Portia ble to display) December 26, 20[address] [place] [address] [place] [address] Dear Tere, You are due for your follow up appointment with u in January. Please call the office at [phone] to schedule. Thank you, [facility] , Normal [facility] ABO and Rh group panel (Bld) Ordered By: Augustin Hernandez on 12-24-2024 ABO group Nom (Bld) A [facility] Rh Nom (Bld) Invalid result [facility] TYPE + SCREENOrdered By: Emil Acosta on 12-24-2024 ABO group Nom (Bld) Invalid result C [facility] Blood group antibody screen Ql Positive Abnormal [facility] Comment on above: Corrected result: Pr eviously reported as Positive on 12/23/2024 at 5:38 PM EDT. This is an addended report. These results have been addended to a previously final verified report. Interpretation and review of laboratory results Abnormal [facility] Rh Nom (Bld) Positive [facility] Type and Screen Expiration 12/26/2024 23:59 [facility] Comment on above: Corrected result: Pr eviously reported as 12/26/2024 23:59 on 12/23/2024 at 5:38 PM EDT. [facility] ABO AND RH ONLYon 12-23-2024 ABO A Normal [facility] Comment on above: Order Comment: Speci men Type: BLOOD SPECIMENOrdering Facility: [facility] Address: [address] [place] [address] Performed By: #### B BABINT ####[facility] BLOOD BANKIA [id number] [place] [address] [place] [facility]#### TSCR ####[facility] BLOOD BANKCLIA [id number] BLOOD BANKCLIA [id number] [place] [address] [place]#### ASCR, ABORH ####[facility] BLOOD BANKCLIA [id number] [address] STATES OF [facility] Rh Nom (Bld) Invalid result Normal [facility] Comment on above: Order Comment: Speci men Type: BLOOD SPECIMENOrdering Facility: [facility] Address: [address] [place] [address] Performed By: #### B BABINT ####[facility] BLOOD BANKCLIA [id number] [place] [address] [place]#### TSCR ####[facility] BLOOD BANKCLIA [id number] [place] [address] [facility] BLOOD BANKCLIA [id number] [place] [address] [place]#### ASCR, ABORH ####[place] [facility] BLOOD BANKCLIA [id number] [place] [address] [place] ANTIBODY SCREENon 12-23-2024 Blood group antibody screen Ql Positive Abnormal [facility] Comment on above: Testing performed [facility] Interpretation and review of laboratory results Abnormal [facility] Type and Screen Expiration 12/26/2024 23:59 [facility] BLOOD BANK PLACEHOLDER, ANTI BODY INTERPRETATIONon 12-23-2024 BLOOD BANK REPORT, ANTIBODY INTERPRETATION See Pathology Report Normal [facility] Comment on above: Order Comment: Speci men Type: BLOOD SPECIMENOrdering Facility: [facility] Address: [address] [place] [address] Performed By: #### B BABINT ####[facility] BLOOD BANKCLIA [id number] [place] [address] [place]#### TSCR ####[facility] BLOOD BANKCLIA [id number] [place] [address] [facility] BLOOD BANKCLIA [id number] [place] [address] [place]#### ASCR, ABORH ####[facility] BLOOD BANKCLIA [id number] [place] [address] [place] BLOOD BANK REPORT, ANTIBODY INTERPRETATIONon 12-23-2024 PATHOLOGY INTERPRETATION Normal [facility] Comment on above: Order Comment: Speci men Type: BLOOD SPECIMENOrdering Facility: [facility] Address: [address] [place] [address] Result Comment: The current sample is sent to the [facility] for testing. The reference [...] at 1227 EDT Performed By: #### B ARTI ####[facility] LABORATORYCLIA [id number] [place] [address] [facility] CBC panel Auto (Bld)on 12-23 Erythrocyte distribution width (RBC) [Ratio] 16.3 % High 11.5 - 15.0 % [facility] Hematocrit (Bld) [Volume fraction] 30.6 % Low 39.0 - 51.0 % [facility] Hemoglobin (Bld) [Mass/Vol] 9.7 g/dL Low 13.0 - 17.0 g/dL [facility] MCH (RBC) [Entitic mass] 28.8 pg 26.0 - 34.0 pg [facility] MCHC (RBC) [Mass/Vol] 31.7 g/dL 30.5 - 36.0 g/dL [facility] MCV (RBC) [Entitic vol] 90.8 fL 80.0 - 100.0 fL [facility] Nucleated RBC (Bld) [#/Vol] NINF [facility] Platelet mean volume (Bld) [Entitic vol] 9.2 fL 9.0 - 12.7 fL [facility] Platelets (Bld) [#/Vol] 270 10*3/uL [facility] RBC (Bld) [#/Vol] 3.37 10*6/uL Low 4.20 - 6.00 m/uL [facility] WBC (Bld) [#/Vol] 9.34 10*3/uL [facility] Erythrocyte distribution width (RBC) [Ratio] 16.3 % High 11.5-15.0 [facility] Comment on above: Order Comment: Speci men Type: BLOOD SPECIMENOrdering Facility: [facility] Address: [address] [place] [address] Performed By: #### 5 8410-2, 89655-1 ####[facility] LABORATORYCLIA [id number] [address] [address] OF [facility] Hematocrit (Bld) [Volume fraction] 30.6 % Low 39.0-51.0 [facility] Comment on above: Order Comment: Speci men Type: BLOOD SPECIMENOrdering Facility: [facility] Address: [address] [place] [address] Performed By: #### 5 8410-2, 51419-9 ####[facility] LABORATORYCLIA [id number] [address] STATES OF [facility] Hemoglobin (Bld) [Mass/Vol] 9.7 g/dL Low 13.0-17.0 [facility] Comment on above: Order Comment: Speci men Type: BLOOD SPECIMENOrdering Facility: [facility] Address: [address] [place] [address] Performed By: #### 5 8410-2, 95836-1 ####H[facility] LABORATORYCLIA [id number] [address] STATES OF [facility] MCH (RBC) [Entitic mass] 28.8 pg Normal 26.0-34.0 [facility] Comment on above: Order Comment: Speci men Type: BLOOD SPECIMENOrdering Facility: [facility] Address: [address] [place] [address] Performed By: #### 5 8410-2, 39169-7 ####H[facility] LABORATORYCLIA [id number] [address] STATES OF [facility] MCHC (RBC) [Mass/Vol] 31.7 g/dL Normal 30.5-36.0 [facility] Comment on above: Order Comment: Speci men Type: BLOOD SPECIMENOrdering Facility: [facility] Address: [address] [place] [address] Performed By: #### 5 8410-2, 08952-7 ####HERRER[facility] LABORATORYCLIA [id number] [place] [address] [place] MCV (RBC) [Entitic vol] 90.8 fL Normal 80.0-100.0 [facility] Comment on above: Order Comment: Speci men Type: BLOOD SPECIMENOrdering Facility: [facility] Address: [address] [place] [address] Performed By: #### 5 8410-2, 73312-9 ####H[facility]ER[facility] LABORATORYCLIA [id number] [place] [address] [place] Nucleated RBC (Bld) [#/Vol] 10*3/uL Normal <0.01 [facility] Comment on above: Order Comment: Speci men Type: BLOOD SPECIMENOrdering Facility: [facility] Address: [address] [place] [address] Performed By: #### 5 8410-2, 18180-1 ####HERRER[facility] LABORATORYCLIA [id number] [place] [address] [place] Platelet mean volume (Bld) [Entitic vol] 9.2 fL Normal 9.0-12.7 [facility] Comment on above: Order Comment: Speci men Type: BLOOD SPECIMENOrdering Facility: [facility] Address: [address] [place] [address] Performed By: #### 5 8410-2, 30676-2 ####HERRERA LABORATORYCLIA [id number] [place] [address] [place] Platelets (Bld) [#/Vol] 270 10*3/uL Normal 150-400 [facility] Comment on above: Order Comment: Speci men Type: BLOOD SPECIMENOrdering Facility: [facility] Address: [address] [place] [address] Performed By: #### 5 8410-2, 16924-0 ####HERRERA LABORATORYCLIA [id number] [place] [address] [place] RBC (Bld) [#/Vol] 3.37 10*6/uL Low 4.20-6.00 [facility] Comment on above: Order Comment: Speci men Type: BLOOD SPECIMENOrdering Facility: [facility] Address: [address] [place] [address] Performed By: #### 5 8410-2, 47626-7 ####HERRERA LABORATORYCLIA [id number] [place] [address] [place] [facility] WBC (Bld) [#/Vol] 9.34 10*3/uL Normal 3.70-11.00 [facility] Comment on above: Order Comment: Speci men Type: BLOOD SPECIMENOrdering Facility: [facility] Address: [address] [place] [address] Performed By: #### 5 8410-2, 42226-9 ####HERRERA LABORATORYCLIA [id number] [address] OF [facility] CNOVSPon 12-23-2024 CNOVSP Normal [facility] MAE DIRECTon 12-23-2024 DAGT, ANTI-C3B,C3D Positive Normal [facility] Comment on above: Order Comment: Speci men Type: BLOOD SPECIMENOrdering Facility: [facility] Address: [address] [place] [address] Performed By: #### D AGT ####[facility] BLOOD BANKCLIA [id number] [address] [place] DAGT, ANTI-IGG Positive Normal [facility] Comment on above: Order Comment: Speci men Type: BLOOD SPECIMENOrdering Facility: [facility] Address: [address] [place] [address] Performed By: #### D AGT ####[facility] BLOOD BANKCLIA [id number] [place] [id number] [facility] [place] DAGT, POLYSPECIFIC AHG Positive Normal [place] Comment on above: Order Comment: Speci men Type: BLOOD SPECIMENOrdering Facility: [facility] Address: [address] [place] [address] Performed By: #### D AGT ####[facility] BLOOD BANKCLIA [id number] [place] [address] [place] [facility] Comprehensive metabolic 2000 panelon 12-23-2024 Albumin [Mass/Vol] 3.4 g/dL Low 3.9 - 4.9 g/dL [facility] ALP [Catalytic activity/Vol] 96 U/L 38 - 113 U/L [facility] ALT [Catalytic activity/Vol] 19 U/L 10 - 54 U/L [facility] Anion gap [Moles/Vol] 13 mmol/L 8 - 15 mmol/L [facility] AST [Catalytic activity/Vol] 21 U/L 14 - 40 U/L [facility] Bilirubin [Mass/Vol] 1.1 mg/dL 0.2 - 1 .3 mg/dL [facility] Calcium [Mass/Vol] 8.7 mg/dL 8.5 - 10. 2 mg/dL [facility] Chloride [Moles/Vol] 105 mmol/L 98 - 10 7 mmol/L [facility] CO2 [Moles/Vol] 19 mmol/L Low 22 - 30 mmol/L [facility] Creatinine [Mass/Vol] 1.37 mg/dL High 0.73 - 1.22 mg/dL [facility] GFR/1.73 sq M.predicted among non-blacks MDRD (S/P/Bld) [Vol rate/Area] 54 mL/min/{1.73_m2} Low - PINF [facility] Comment on above: Estimated Glomerular Filtration [...] 319 mg/dL High 74 - 99 mg/dL [facility] Comment on above: The [place] [employer] Association (ADA) provides guidance for [...] Standards of Medical Care in Diabetes 2016, [place] [employer]. Diabetes Care. 2016.39(Suppl 1). Interpretation and review of laboratory results Abnormal [facility] Potassium [Moles/Vol] 3.9 mmol/L 3.7 - 5.1 mmol/L [facility] Protein [Mass/Vol] 6.4 g/dL 6.3 - 8.0 g/dL [facility] Sodium [Moles/Vol] 137 mmol/L 136 - 144 mmol/L [facility] Urea nitrogen [Mass/Vol] 46 mg/dL High 9 - 24 mg/dL [facility] Albumin [Mass/Vol] 3.4 g/dL Low 3.9-4.9 [facility] Comment on above: Order Comment: Speci men Type: BLOOD SPECIMENOrdering Facility: [facility] Address: [address] [place] [address] Performed By: #### 2 4323-8 ####HERRER[facility] LABORATORYCLIA [id number] [place] [address] [place] ALP [Catalytic activity/Vol] 96 U/L Normal 38-113 [facility] Comment on above: Order Comment: Speci men Type: BLOOD SPECIMENOrdering Facility: [facility] Address: [address] [place] [address] Performed By: #### 2 4323-8 ####HERRER[facility] LABORATORYCLIA [id number] [place] [address] [place] [facility] ALT [Catalytic activity/Vol] 19 U/L Normal 10-54 [facility] Comment on above: Order Comment: Speci men Type: BLOOD SPECIMENOrdering Facility: [facility] Address: [address] [place] [address] Performed By: #### 2 4323-8 ####HERRERA LABORATORYCLIA [id number] [address] [place] Anion gap [Moles/Vol] 13 mmol/L Normal 8-15 [facility] Comment on above: Order Comment: Speci men Type: BLOOD SPECIMENOrdering Facility: [facility] Address: [address] [place] [address] Performed By: #### 2 4323-8 ####HERRER[facility] LABORATORYCLIA [id number] [place] [address] [place] AST [Catalytic activity/Vol] 21 U/L Normal 14-40 [facility] Comment on above: Order Comment: Speci men Type: BLOOD SPECIMENOrdering Facility: [facility] Address: [address] [place] [address] Performed By: #### 2 4323-8 ####HERRER[facility] LABORATORYCLIA [id number] [place] [address] [place] Bilirubin [Mass/Vol] 1.1 mg/dL Normal 0.2-1.3 [facility] Comment on above: Order Comment: Speci men Type: BLOOD SPECIMENOrdering Facility: [facility] Address: [address] [place] [address] Performed By: #### 2 4323-8 ####HERRER[facility] LABORATORYCLIA [id number] [place] [address] [place] Calcium [Mass/Vol] 8.7 mg/dL Normal 8.5-10.2 [facility] Comment on above: Order Comment: Speci men Type: BLOOD SPECIMENOrdering Facility: [facility] Address: [address] [place] [address] Performed By: #### 2 4323-8 ####HERRERA LABORATORYCLIA [id number] [place] [address] [place] Chloride [Moles/Vol] 105 mmol/L Normal 98-107 [facility] Comment on above: Order Comment: Speci men Type: BLOOD SPECIMENOrdering Facility: [facility] Address: [address] [place] [address] Performed By: #### 2 4323-8 ####HERRER[facility] LABORATORYCLIA [id number] [place] [address] [place] CO2 [Moles/Vol] 19 mmol/L Low 22-30 [facility] Comment on above: Order Comment: Demarco harris Type: BLOOD SPECIMENOrdering Facility: [facility] Address: [address] [place] [address] Performed By: #### 2 4323-8 ####HERRER[facility] LABORATORYCLIA [id number] [place] [address] [place] Creatinine [Mass/Vol] 1.37 mg/dL High 0.73-1.22 [facility] Comment on above: Order Comment: Speci men Type: BLOOD SPECIMENOrdering Facility: [facility] Address: [address] [place] [address] Performed By: #### 2 4323-8 ####HERRERA LABORATORYCLIA [id number] [place] [id number] [place] eGFRcr SerPlBld CKD-EPI 2020 54 mL/min/1.73m??? Low >=60 [facility] Comment on above: Order Comment: Demarco men Type: BLOOD SPECIMENOrdering Facility: [facility] Address: [address] [place] [address] Result Comment: Nancy mated Glomerular Filtration Rate [...] Performed By: #### 2 4323-8 ####HERRER[facility] LABORATORYCLIA [id number] [place] [id number] [place] Glucose [Mass/Vol] 319 mg/dL High 74-99 [facility] Comment on above: Order Comment: Demarco kimberly Type: BLOOD SPECIMENOrdering Facility: [facility] Address: [address] [place] [address] Result Comment: The [place] Diabetes Association (ADA) provides guidance for cutoff [...] Standards of Medical Care in Diabetes 2016, [place] [employer]. Diabetes Care. 2016.39(Suppl 1). Performed By: #### 2 4323-8 ####HERRERA LABORATORYCLIA [id number] [place] [address] [place] Potassium [Moles/Vol] 3.9 mmol/L Normal 3.7-5.1 [facility] Comment on above: Order Comment: Speci men Type: BLOOD SPECIMENOrdering Facility: [facility] Address: [address] [place] [address] Performed By: #### 2 4323-8 ####HERRER[facility] LABORATORYCLIA [id number] [place] [address] [place] Protein [Mass/Vol] 6.4 g/dL Normal 6.3-8.0 [facility] Comment on above: Order Comment: Speci men Type: BLOOD SPECIMENOrdering Facility: [facility] Address: [address] [place] [address] Performed By: #### 2 4323-8 ####HERRERA LABORATORYCLIA [id number] [place] [address] [place] Sodium [Moles/Vol] 137 mmol/L Normal 136-144 [facility] Comment on above: Order Comment: Speci men Type: BLOOD SPECIMENOrdering Facility: [facility] Address: [address] [place] [address] Performed By: #### 2 4323-8 ####HERRERA LABORATORYCLIA [id number] [place] [id number] [place] Urea nitrogen [Mass/Vol] 46 mg/dL High 9-24 [facility] Comment on above: Order Comment: Speci men Type: BLOOD SPECIMENOrdering Facility: [facility] Address: [address] [place] [address] Performed By: #### 2 4323-8 ####HERRERA LABORATORYCLIA [id number] [place] [address] [place] Direct antiglobulin test.shaina y specific reagent Ql (RBC)Ordered By: Lucas Bruce on 12-23-2024 DAGT, Anti-C3b,C3d Positive [facility] DAGT, Anti-IgG Positive [facility] DAGT, Polyspecific AHG Positive [facility] HAPTOGLOBINon 12-23-2024 Haptoglobin [Mass/Vol] 12 mg/dL Low 31 - 238 mg/dL [facility] Haptoglob SerPl-mCncon 12-23 Haptoglobin [Mass/Vol] 12 mg/dL Low 31-238 [place] Comment on above: Order Comment: Demarco harris Type: BLOOD SPECIMENOrdering Facility: [facility] Address: [address] [place] [address] Performed By: #### 4 542-7, 2531-0 ####[facility] LABCLIA [id number] [place] [id number] [place] LACTATE DEHYDROGENASEon 12-09 LDH [Catalytic activity/Vol] 386 U/L High 135 - 225 U/L [facility] LDH SerPl-cCncon 12-23-2024 LDH [Catalytic activity/Vol] 386 U/L High 135-225 [facility] Comment on above: Order Comment: Demarco harris Type: BLOOD SPECIMENOrdering Facility: [facility] Address: [address] [place] [address] Performed By: #### 4 542-7, 2532-0 ####[facility] LABCLIA [id number] [place] [id number] [place] No Panel Informationon 12-23 Interpretation and review of laboratory results Abnormal [facility] Interpretation and review of laboratory results Abnormal [facility] RETICULOCYTE COUNTon 025 Reticulocytes (Bld) [#/Vol] 0.079 10*3/uL [facility] Retics #on 07-15-2025 Reticulocytes (Bld) [#/Vol] 0.51112 10*3/uL Normal 0.018-0.10 0 [facility] Comment on above: Order Comment: Speci men Type: BLOOD SPECIMENOrdering Facility: [facility] Address: [address] [place] [address] Performed By: #### 5 8410-2, 62327-5 ####HERRERA LABORATORYCLIA [id number] [address] Reticulocytes (Bld) [#/Vol]o n 12-23-2024 Reticulocytes/100 RBC (Bld) 2.4 % High 0.4 - 2.0 % [facility] Reticulocytes/100 RBC (Bld) 2.4 % High 0.4-2.0 [facility] Comment on above: Order Comment: Speci men Type: BLOOD SPECIMENOrdering Facility: [facility] Address: [address] [place] [address] Performed By: #### 5 8410-2, 32437-4 ####HERRER[facility] LABORATORYCLIA [id number] [address] [place] TYPE + SCREENon 12-23-2024 ABO Invalid result Normal [facility] Comment on above: Order Comment: Speci men Type: BLOOD SPECIMENOrdering Facility: [facility] Address: [address] [place] [address] Performed By: #### B BABINT ####[facility] BLOOD BANKCLIA [id number] [address] [place]#### TSCR ####[facility] [facility] BLO[facility] BANKCLIA [id number] [place] [address] [place] [facility] BLOOD BANKCLIA [id number] [place] [address] [place]#### ASCR, ABORH ####[facility] [facility] BLOOD BANKCLIA [id number] [place] [address] [place] Rh Nom (Bld) Positive Normal [facility] Comment on above: Order Comment: Speci men Type: BLOOD SPECIMENOrdering Facility: [facility] Address: [address] [place] [address] Performed By: #### B BABINT ####[facility] BLOOD BANKCLIA [id number] [address]#### TSCR ####[facility] BLOOD BANKCLIA [id number] [address] BLOOD BANKCLIA [id number] [address]#### ASCR, ABOR ####[place] [facility] BLOOD BANKCLIA [id number] OF [place] TYPE AND SCREEN EXPIRATION 12/26/2024 23:59 Normal [facility] Comment on above: Order Comment: Speci men Type: BLOOD SPECIMENOrdering Facility: [facility] Address: [address] [place] [address] Result Comment: Danielle ected result: Previously reported as 12/26/2024 23:59 on 12/23/2024 at 5:38 PM EDT. Performed By: #### B BABINT ####[facility] BLOOD BANKCLIA [id number] [address]#### TSCR ####[facility] BLOOD BANKCLIA [id number] [address] BLOOD BANKCLIA [id number] [address]#### ASCR, ABORH ####[place] [facility] BLOOD BANKCLIA [id number] [address] [place] SURGICAL PATH Joe 12-14-[address] [facility] Department of Pathology [address] [place] [phone] Name: TERE BARONE : 1950 [facility] [id number] Number: Gender Male Locatio 2DMO; D244; 01 : n: Admit 74 years Attending SAMANTA VENTURA MD Age: Provider: Ordering MUTHUNAYAGAM MD, VINES Provider: Consulti Surgical Pathology Report ng: ACCESSION: COLLECTED DATE/TIME: RECEIVED DATE/TIME: PATHOLOGIST: [id number] 12/09/2024 16:52 EDT 12/10/2024 08:17 EDT SARA [...] ____ Print 12/19/2024 11:07 EDT Number: Date/Time: [facility] Department of Pathology [address] [place] [phone] Name: TERE BARONE : 1950 [facility] [id number] Number: Gender Male Locatio 2DMO; D244; 01 : n: Admit 74 years Attending SAMANTA VENTURA MD Age: Provider: Ordering MOHINDER HERNANDEZ MD Provider: Consulti Surgical Pathology Report ng: ACCESSION: COLLECTED DATE/TIME: RECEIVED DATE/TIME: PATHOLOGIST: [id number] 12/09/2024 16:52 EDT 12/10/2024 08:17 EDT SARA [...] ____ Print 12/19/2024 11:07 EDT Number: Date/Time: [facility] Department of Pathology [address] [place] [phone] Name: TERE BARONE : 1950 [facility] [id number] Number: Gender Male Locatio 2DMO; D244; 01 : n: Admit 74 years Attending SAMANTA VENTURA MD Age: Provider: Ordering MOHINDER HERNANDEZ MD Provider: Consulti Surgical Pathology Report ng: ACCESSION: COLLECTED DATE/TIME: RECEIVED DATE/TIME: PATHOLOGIST: [id number] 12/09/2024 16:52 EDT 12/10/2024 08:17 EDT SARA REICH MD Gross Description C. Labeled cecal polyp. Received [...] x 0.4 (more content not included)... Normal [facility] Comment on above: Performed By: #### 1 09990, [id number] #### [facility] Laboratory Services [address] [place] [address] Outside Sales Executive: Simba Obrien MD BLOODon 12-12-2024 C BLOOD [facility] pt of Laboratory Services [address] [place] [phone] Name: TERE BARONE : 1950 Admitting DEANNE BUTTERFIELD MD Provider: Gender Male [facility] [id number] : Number: Kin 2DMO; D244; 01 n: [...] BARONE Print 12/12/2024 00:00 EDT Date/Time: Normal [facility] Comment on above: Performed By: #### 1 31533, [id number], [id number] #### [facility] Services [address] [place], [place] [id number] Outside Sales Executive: Simba Obrien MD C BLOOD [facility] pt of Laboratory Services [address] [place], [place] [phone] Name: TERE BARONE : 1950 Admitting DEANNE BUTTERFIELD MD Provider: Gender Male Financial [id number] : Number: Locatio 2DMO; D244; 01 n: Admit 12/06/2024 Date: Discharge 12/10/2024 Microbiology Date: PROCEDURE: C BLOOD [] SOURCE: Blood BODY SITE: COLLECTED DATE/TIME: 12/06/2024 21:17 EDT RECEIVED DATE/TIME: 12/06/2024 21:23 EDT START DATE/TIME: 12/06/2024 21:24 EDT FREE TEXT SOURCE: R HAND ORDERING PHYSICIAN: DOHAR MD, DEANNE J FINAL REPORTS Final Report [] Verified Date/Time: 12/12/2024 00:00 EDT No growth after 5 days. ____ L=Low, H= High, *= Abnormal, C=Critical, f=Footnote, c=Corrected, i=Interp Data Name: TERE BARONE Print 12/12/2024 00:00 EDT Date/Time: Normal [facility] Comment on above: Performed By: #### 1 86125, [id number], [id number] #### [facility] [address] [place] [address] Outside Sales Executive: Simba Obrien MD [facility] 12-11-2024 Antibody Identification Warm Auto Normal S [facility] Comment on above: Result Comment: 08/2024 9:10 78810 Warm Auto antibody and Auto Anti-E demonstrating. Antibody identification was performed at the [facility]. See outside report. Performed By: #### 1 88963, 415912, 947130 #### [facility] [address] [place] [address] Outside Sales Executive: Simba Obrien MD Admission History Adulton Admission History Adult Patient History Model Entered On: 12/07/2024 20:44 EDT Performed On: 12/07/2024 20:37 EDT by Daniela Velez RN Info Preferred Verbal : Mexican Daniela Velez RN - 12/07/2024 20:37 EDT Contact Information : Bg Barone ():[phone] Sammi Ramires RN - 12/10/2024 5:41 EDT Preferred Written : Mexican Information Given By : Self Currently or : Not Applicable Is patient a dialysis patient? : No Reyes Daniela Eaton RN - 12/07/2024 20:37 EDT Problem List Problem List obtained from : Patient Reyes Dowellalexi Daniela Silva RN - 12/07/2024 20:37 EDT (As Of: 12/07/2024 20:54:59 EDT) Problems(Active) Acute renal failure (SNOMED CT :6711280002 ) Name of Problem: Acute renal failure ; Recorder: FRANSISCO HSU MD; Confirmation: Confirmed ; Classification: Medical ; Code: [id number] ; Contributor System: Resale Therapy ; Last Updated: 12/07/2024 12:32 EDT ; Life Cycle Date: 12/07/2024 ; Life Cycle Status: Active ; Responsible Provider: FRANSISCO HSU MD; Vocabulary: SNOMED CT Ascending aorta dilatation (SNOMED CT :970453689 ) Name of Problem: Ascending aorta dilatation ; Onset Date: 03/19/2024 ; Recorder: Edwige Mcintosh RN; Confirmation: Confirmed ; Classification: Medical ; Code: [id number] ; Contributor System: [employer]ale Therapy ; Last Updated: 12/07/2024 08:38 EDT ; Life Cycle Date: 12/07/2024 ; Life Cycle Status: Active ; Responsible Provider: Edwige Mcintosh RN; Vocabulary: SNOMED CT At risk for falls (SNOMED CT :347411357 ) Name of Problem: At risk for falls ; Recorder: SYSTEM; Confirmation: Confirmed ; Classification: Nursing ; Code: [id number] ; Last Updated: 12/19/2022 19:07 EDT ; Life Cycle Date: 12/19/2022 ; Life Cycle Status: Active ; Vocabulary: SNOMED CT ; Comments: 12/19/2022 19:07 - SYSTEM Problem added automatically by system based on documentation of a admission to the hospital. Bleeding disorder (SNOMED CT :088904659 ) Name of Problem: Bleeding disorder ; Recorder: SYSTEM; Confirmation: Confirmed ; Classification: Nursing ; Code: 226894607 ; Last Updated: 12/07/2024 08:39 EDT ; Life Cycle Date: 12/07/2024 ; Life Cycle Status: Active ; Vocabulary: SNOMED CT ; Comments: 12/07/2024 8:39 - SYSTEM Problem added automatically by system based on initiation of suggested paln of care Risk for Bleeding. Dementia (SNOMED CT :81280122 ) Name of Problem: Dementia ; Recorder: FRANSISCO HSU MD; Confirmation: Confirmed ; Classification: Medical ; Code: 69924397 ; Contributor System: [employer] ; Last Updated: 12/07/2024 12:34 EDT ; Life Cycle Date: 12/07/2024 ; Life Cycle Status: Active ; Responsible Provider: FRANSISCO HSU MD; Vocabulary: SNOMED CT Dementia with behavioral disturbance. (SNOMED CT :9511011247 ) Name of Problem: Dementia with behavioral disturbance. 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 ; Onset Date: 12/26/2023 ; Recorder: Edwige Mcintosh RN; Confirmation: Confirmed ; Classification: Medical ; Code: [id number] ; Contributor System: [employer] ; Last Updated: 12/07/2024 08:38 EDT ; Life Cycle Date: 12/07/2024 ; Life Cycle Status: Active ; Responsible Provider: Edwige Mcintosh RN; Vocabulary: SNOMED CT Iron deficiency anemia (SNOMED CT :828390786 ) Name of Problem: Iron deficiency anemia ; Recorder: FRANSISCO HSU MD; Confirmation: Confirmed ; Classification: Medical ; Code: [id number] ; Contributor System: [employer] ; Last Updated: 12/07/2024 12:33 EDT ; Life Cycle Date: 12/07/2024 ; Life Cycle Status: Active ; Responsible Provider: FRANSISCO HSU MD; Vocabulary: SNOMED CT Left ureteral calculus (SNOMED CT :55239092 ) Name of Problem: Left ureteral calculus ; Recorder: FRANSISCO HSU MD; Confirmation: Confirmed ; Classification: Medical ; Code: [id number] ; Contributor System: [employer] ; Last Updated: 12/07/2024 12:33 EDT ; Life Cycle Date: 12/07/2024 ; Life Cycle Status: Active ; Responsible Provider: FRANSISCO HSU MD; Vocabulary: SNOMED CT Long-term current use of opiate analgesic drug (SNOMED CT :124126152894828 ) Name of Problem: Long-term current use of opiate analgesic drug ; Recorder: Edwige Mcintosh RN; Confirmation: Confirmed ; Classification: Medical ; Code: [id number] ; Contributor System: [employer] ; Last Updated: 12/07/2024 08:37 EDT ; Life Cycle Date: 12/07/2024 ; Life Cycle Status: Active ; Responsible Provider: Edwige Mcintosh RN; Vocabulary: SNOMED CT Sensorineural hearing loss of bilateral ears (SNOMED CT :3900077405 ) Name of Problem: Sensorineural hearing loss of (more content not included)... Normal [facility] Comment on above: Order Comment: Order entered secondary to admission BASICMETAon 12-10-2024 Calcium [Mass/Vol] 7.9 mg/dL Low 8.7-10.4 [facility] Comment on above: Performed By: #### 1 97379, [id number] #### [facility] [address] [place] [address] 72001 Outside Sales Executive: Simba Obrien MD Chloride [Moles/Vol] 111 mmol/L High 98-107 [facility] Comment on above: Performed By: #### 1 34588, 951335 #### [facility] [address] [place] [address] 13348 Outside Sales Executive: Simba Obrien MD CO2 [Moles/Vol] 21.0 mmol/L Normal 20.0-31.0 [facility] Comment on above: Performed By: #### 1 88061, 273279 #### [facility] [address] [place] [address] 53866 Outside Sales Executive: Simba Obrien MD Creatinine [Mass/Vol] 1.6 mg/dL High 0.6-1.1 [facility] Comment on above: Performed By: #### 1 06990, 908755 #### [facility] [address] [place] [address] Outside Sales Executive: Simba Obrien MD GFR AA 51 [facility] Comment on above: Result Comment: Afri can Afghan GFR Calc Medical judgement is necessary to [...] MDRD GFR equation Performed By: #### 1 58266, 935949 #### [facility] [address] [place] [address] 50016 Outside Sales Executive: Simba Obrien MD Glomerular Filtration Rate 42 mL/min/1.73m? Normal [facility] Comment on above: Result Comment: Non- GFR [...] MDRD GFR equation Performed By: #### 1 15734, 741085 #### [facility] [address] [place] [address] 45598 Outside Sales Executive: Simba Obrien MD Glucose [Mass/Vol] 100 mg/dL Normal 74-106 [facility] Comment on above: Performed By: #### 1 91082, 407564 #### [facility] [address] [place] [address] 20784 Outside Sales Executive: Simba Obrien MD Osmolality [Osmolality] 290 mosm/kg Normal 275-295 [facility] Comment on above: Performed By: #### 1 09306, 499301 #### [facility] [address] [place] [address] Outside Sales Executive: Simba Obrien MD Potassium [Moles/Vol] 3.8 mmol/L Normal 3.5-5.1 [facility] Comment on above: Performed By: #### 1 42990, 112141 #### [facility] [address] [place] [address] 63920 Outside Sales Executive: Simba Obrien MD Sodium [Moles/Vol] 143 mmol/L Normal 135-145 [facility] Comment on above: Performed By: #### 1 36699, 901552 #### [facility] [address] [place] [address] 99915 Outside Sales Executive: Simba Obrien MD Urea nitrogen [Mass/Vol] 27 mg/dL High 9-23 [facility] Comment on above: Result Comment: - Ve nipuncture should occur prior to N-Acetyl Cysteine (NAC) or Metamizole (Sulpyrine) administration due to the potential for falsely depressed results. - Blood samples from some patients with monoclonal gammopathies may produce falsely elevated results Performed By: #### 1 87915, 048042 #### [facility] [address] [place] [address] 21816 Outside Sales Executive: Simba Obrien MD Urea nitrogen/Creatinine [Mass ratio] 16.9 mg/mg Normal [facility] Comment on above: Performed By: #### 1 61109, 356221 #### [facility] [address] [place] [address] 48298 Outside Sales Executive: Simba bOrien MD [facility] Actions See Notes Abnormal [facility] Comment on above: Result Comment: SNV Performed By: #### 1 48289, 552156 #### [facility] [address] [place] [address] 80421 Outside Sales Executive: Simba Obrien MD Erythrocyte distribution width (RBC) [Ratio] 18.7 % High 11.5-14.5 [facility] Comment on above: Performed By: #### 1 77573, 714239 #### [facility] [address] [place], [place] [address] Outside Sales Executive: Simba Obrien MD Hematocrit (Bld) [Volume fraction] 25.1 % Low 41.0-52.0 [facility] Comment on above: Performed By: #### 1 42403, 898284 #### [facility] [address] [place], [place] [address] Outside Sales Executive: Simba Obrien MD Hemoglobin (Bld) [Mass/Vol] 8.3 g/dL Low 13.5-17.5 [facility] Comment on above: Performed By: #### 1 81252, 111365 #### [facility] [address] [place] [address] Outside Sales Executive: Simba Obrien MD Instr WBC ND 6.5 Normal [facility] Comment on above: Performed By: #### 1 79415, 151148 #### [facility] [address] [place] [address] Outside Sales Executive: Simba Obrien MD MCH (RBC) [Entitic mass] 29.8 pg Normal 27.0-34.0 [facility] Comment on above: Performed By: #### 1 90666, 712840 #### [facility] [address] [place], [place] [address] Outside Sales Executive: Simba Obrien MD MCHC (RBC) [Mass/Vol] 33.2 g/dL Normal 32.0-37.0 [facility] Comment on above: Performed By: #### 1 98689, 286278 #### [facility] [address] [place], [place] [address] Outside Sales Executive: Simba Obrien MD MCV (RBC) [Entitic vol] 89.9 fL Normal 80.0-100.0 [facility] Comment on above: Performed By: #### 1 29375, 686725 #### [facility] [address] [place] [address] 62752 Outside Sales Executive: Simba Obrien MD Platelet 248 x10 Normal 150-450 [facility] Comment on above: Performed By: #### 1 33379, 627788 #### [facility] [address] [place] [address] 12162 Outside Sales Executive: Simba Obrien MD Platelet mean volume (Bld) [Entitic vol] 6.5 fL Low 7.4-10.4 [facility] Comment on above: Performed By: #### 1 92024, 587972 #### [facility] [address] [place], [place] [address] Outside Sales Executive: Simba Obrien MD RBC 2.79 x10 Low 4.70-6.10 [facility] Comment on above: Result Comment: Note : RBC morphology is normal unless otherwise stated. Evaluation performed only if differential is requested. Performed By: #### 1 49769, 414472 #### [facility] [place] [id number] Outside Sales Executive: Simba Obrien MD WBC 6.5 x10 Normal 4.5-11.0 [facility] Comment on above: Performed By: #### 1 65867, 967407 #### [facility] [address] [place], [place] [address] Outside Sales Executive: Simba Obrien MD Hep B Core Antibodies Totalo n 12-10-2024 Hepatitis B Core Antibodies, Total Negative Normal Negative [facility] Comment on above: Result Comment: INTE RPRETIVE INFORMATION: Hepatitis B Core Ab (Total) This assay should not be used for blood donor screening, associated re-entry protocols, or for screening Human Cells, Tissues and Cellular and Tissue-Based Products (HCT/P). Performed By: [facility] [address] [place] [address] 24893 Cable Installation Technician: Yusra Liao MD, PhD CLIA Number: [id number] Performed By: #### 5 [id number] #### 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 for your care. You are very important to us. Our goal is to demonstrate our high quality medical care and provide you with a very good patient experience. You may receive a survey about our service. Please take the time to complete the survey and return it so we can continue to enhance our service. Thank you again for allowing [facility] to care for your medical needs. [...] With: Address: When: KEVIN BRYAN, Urology [address] [place] [address] Business (1) Within 1 to 2 weeks Comments: CALL FOR APPOINTMENT With: Address: When: DR JOSÉ MIGUEL ROTHMAN [address] [address] [place] [address] Business (1) Within 2 to 4 weeks With: Address: When: MICHELLE OCTOBER [address] [place] [address] Business (1) Within 1 to 2 weeks Comments: CALL FOR APPOINTMENT With: Address: When: VIC GONZALEZ, Hematology/Oncology, Oncology/Hematology [address] [facility] [place] [address] Business (1) Within 7 to 10 days Comments: CALL FOR APPOINTMENT With: Address: When: MOHINDER HERNANDEZ, Gastroenterology [address] [facility], [address] [facility] [place] [address] [phone] Business (1) Within Call for Appointment Procedure [...] on to (more content not included)... Normal [facility] POC Glucoseon 12-10-2024 Glucose [Mass/Vol] 253 mg/dL High 72-100 [facility] Comment on above: Performed By: #### 1 [id number] #### [facility] [address] [place] [address] Outside Sales Executive: Simba Obrien MD Glucose [Mass/Vol] 112 mg/dL High 72-100 [facility] Comment on above: Performed By: #### 1 [id number] #### [facility] [address] [place] [address] Outside Sales Executive: Simba Obrien MD Progress Note-Physicianon Progress Note-Physician [...] Inpatient acetaminophen(Tylenol), 650 mg= 2 tabs, ORAL, [id number], PRN acetaminophen(Tylenol), 650 mg= 2 tabs, ORAL, [id number], PRN acetaminophen(Tylenol), 650 mg= 2 tabs, ORAL, [id number], PRN ceftriaxone(Rocephin), 1 g= 50 mL, IV Piggyback, [id number] ethyl chloride topical(ethyl chloride topical spray), 1 [...] IV melatonin, 5 mg= 1 tabs, ORAL, [id number], PRN naloxone = Narcan, 0.4 mg= 1 mL, IV Push, PRN, PRN ondansetron(Zofran), 4 mg= 2 mL, IV Push, [id number], PRN pantoprazole(Protonix), 40 mg, IV Push, [id number] predniSONE, 90 mg= 9 tabs, ORAL, DAILY sodium chloride(Saline Flush), 3 mL, IV Push, [id number] sodium chloride(Saline Flush), 3 mL, IV Push, [...] ROUTINE, 12/10/2024 07:35:00 EDT, DAILY LAB Normal [facility] Progress Note-Physician TERE BARONE :1950 Registration Date:12/06/2024 [...] Inpatient acetaminophen(Tylenol), 650 mg= 2 tabs, ORAL, [id number], PRN acetaminophen(Tylenol), 650 mg= 2 tabs, ORAL, [id number], PRN acetaminophen(Tylenol), 650 mg= 2 tabs, ORAL, [id number], PRN ceftriaxone(Rocephin), 1 g= 50 mL, IV Piggyback, [id number] ethyl chloride topical(ethyl chloride topical spray), 1 [...] IV melatonin, 5 mg= 1 tabs, ORAL, [id number], PRN naloxone = Narcan, 0.4 mg= 1 mL, IV Push, PRN, PRN ondansetron(Zofran), 4 mg= 2 mL, IV Push, [id number], PRN pantoprazole(Protonix), 40 mg, IV Push, [id number] predniSONE, 90 mg= 9 tabs, ORAL, DAILY sodium chloride(Saline Flush), 3 mL, IV Push, [id number] sodium chloride(Saline Flush), 3 mL, IV Push, [...] Sent to for review: KHANH LIM, WILBER [facility] BASICMETAon 12-09-2024 Calcium [Mass/Vol] 8.3 mg/dL Low 8.7-10.4 [facility] Comment on above: Performed By: #### 1 72971, 474566, 341230 #### [facility] [address] [place] [address] 34083 Outside Sales Executive: Simba Obrien MD Chloride [Moles/Vol] 111 mmol/L High 98-107 [facility] Comment on above: Performed By: #### 1 37199, 551965, 787452 #### [facility] [address] [place] [address] 66665 Outside Sales Executive: Simba Obrien MD CO2 [Moles/Vol] 21.0 mmol/L Normal 20.0-31.0 [facility] Comment on above: Performed By: #### 1 48985, 135551, 632555 #### [facility] [address] [place] [address] 95373 Outside Sales Executive: Simba Obrien MD Creatinine [Mass/Vol] 1.8 mg/dL High 0.6-1.1 [facility] Comment on above: Performed By: #### 1 72730, 382240, 230931 #### [facility] [address] [place] [address] 01192 Outside Sales Executive: Simba Obrien MD GFR AA 45 [facility] Comment on above: Result Comment: Afri can Afghan GFR Calc Medical judgement is necessary to [...] MDRD GFR equation Performed By: #### 1 08984, 839112, 894373 #### [facility] [address] [place] [address] 40475 Outside Sales Executive: Simba Obrien MD Glomerular Filtration Rate 37 mL/min/1.73m? Normal [facility] Comment on above: Result Comment: Non- GFR [...] MDRD GFR equation Performed By: #### 1 40875, 279912, 902888 #### [facility] [address] [place] [address] 84523 Outside Sales Executive: Simba Obrien MD Glucose [Mass/Vol] 101 mg/dL Normal 74-106 [facility] Comment on above: Performed By: #### 1 46021, 968691, 009060 #### [facility] [address] [place] [address] 98378 Outside Sales Executive: Simba Obrien MD Osmolality [Osmolality] 289 mosm/kg Normal 275-295 [facility] Comment on above: Performed By: #### 1 00920, 051081, 563860 #### [facility] [address] [place] [address] 40809 Outside Sales Executive: Simba Obrien MD Potassium [Moles/Vol] 4.1 mmol/L Normal 3.5-5.1 [facility] Comment on above: Performed By: #### 1 38799, 786071, 303534 #### [facility] [address] [place] [address] Outside Sales Executive: Simba Obrien MD Sodium [Moles/Vol] 143 mmol/L Normal 135-145 [facility] Comment on above: Performed By: #### 1 38798, 535271, 310340 #### [facility] [address] [place] [address] 09410 Outside Sales Executive: Simba Obrien MD Urea nitrogen [Mass/Vol] 24 mg/dL High 9- [facility] Comment on above: Result Comment: - Ve nipuncture should occur prior to N-Acetyl Cysteine (NAC) or Metamizole (Sulpyrine) administration due to the potential for falsely depressed results. - Blood samples from some patients with monoclonal gammopathies may produce falsely elevated results Performed By: #### 1 12572, 030873, 957906 #### [facility] [address] [place] [address] 55017 Outside Sales Executive: Simba Obrien MD Urea nitrogen/Creatinine [Mass ratio] 13.3 mg/mg Normal [facility] Comment on above: Performed By: #### 1 66553, 300930, 296424 #### [facility] [address] [place] [address] 02593 Outside Sales Executive: Simba Obrien MD HEMOon 12-09-2024 Nucleated RBC 0 /100WBC [facility] Comment on above: Performed By: #### 1 86100, 750923, 584734 #### [facility] [address] [place] [address] 50825 Outside Sales Executive: Simba Obrien MD DIFF? Yes Normal [facility] Comment on above: Performed By: #### 1 54937, 084921, 715207 #### [facility] [address] [place] [address] 57727 Outside Sales Executive: Simba Obrien MD DxH Actions See Notes Abnormal [facility] Comment on above: Result Comment: SNV Performed By: #### 1 56716, 184929, 430009 #### [facility] [address] [place] [address] 35715 Outside Sales Executive: Simba Obrien MD Erythrocyte distribution width (RBC) [Ratio] 18.4 % High 11.5-14.5 [facility] Comment on above: Performed By: #### 1 , 576060, 213626 #### [facility] [address] [place] [address] 94829 Outside Sales Executive: Simba Obrien MD Hematocrit (Bld) [Volume fraction] 23.9 % Low 41.0-52.0 [facility] Comment on above: Result Comment: Revi ewed Performed By: #### 1 82342, 845549, 146000 #### [facility] [address] [place], [place] [address] Outside Sales Executive: Simba Obrien MD Hemoglobin (Bld) [Mass/Vol] 8.1 g/dL Low 13.5-17.5 [facility] Comment on above: Result Comment: Revi ewed Performed By: #### 1 , 939207, 141224 #### [facility] [address] [place] [address] 51224 Outside Sales Executive: Simba Obrien MD Instr WBC 5.0 Normal [facility] Comment on above: Performed By: #### 1 , 048290, 607470 #### [facility] [address] [place] [address] 42212 Outside Sales Executive: Simba Obrien MD MCH (RBC) [Entitic mass] 30.1 pg Normal 27.0-34.0 [facility] Comment on above: Performed By: #### 1 , 373305, 290810 #### [facility] [address] [place] [address] 61282 Outside Sales Executive: Simba Obrien MD MCHC (RBC) [Mass/Vol] 33.9 g/dL Normal 32.0-37.0 [facility] Comment on above: Performed By: #### 1 79364, 845763, 799387 #### [facility] [address] [place] [address] 14238 Outside Sales Executive: Simba Obrien MD MCV (RBC) [Entitic vol] 89.0 fL Normal 80.0-100.0 [facility] Comment on above: Performed By: #### 1 85720, 714044, 890825 #### [facility] [address] [place] [address] 71072 Outside Sales Executive: Simba Obrien MD Platelet 234 x10 Normal 150-450 [facility] Comment on above: Performed By: #### 1 29708, 088423, 195571 #### [facility] [address] [place] [address] 25682 Outside Sales Executive: Simba Obrien MD Platelet mean volume (Bld) [Entitic vol] 6.5 fL Low 7.4-10.4 [facility] Comment on above: Performed By: #### 1 30373, 116039, 987335 #### [facility] [address] [place] [address] 52770 Outside Sales Executive: Simba Obrien MD RBC 2.69 x10 Low 4.70-6.10 [facility] Comment on above: Result Comment: Revi ewed Note: RBC morphology is normal unless otherwise stated. Evaluation performed only if differential is requested. Performed By: #### 1 18547, 619299, 921532 #### [facility] [address] [place] [address] 71203 Outside Sales Executive: Simba Obrien MD WBC 5.0 x10 Normal 4.5-11.0 [facility] Comment on above: Performed By: #### 1 07301, 551871, 208577 #### [facility] [address] [place] [address] 67004 Outside Sales Executive: Simba Obrien MD HEP B AGon 12-09-2024 Hepatitis B Surface Antigen Non-Reactive Normal [facility] Comment on above: Result Comment: Maryan ents taking biotin supplements may have false negative results with this assay Performed By: #### 5 [id number] #### [facility] [address] [place] [address] 11216 Outside Sales Executive: Simba Obrien MD [place] DIFFon 12-09-[address] 0.00 x1000 Normal 0.00-0.70 [facility] Comment on above: Performed By: #### 1 78905, 195253, 668338 #### [facility] [address] [place] [address] 69790 Outside Sales Executive: Simba Obrien MD Absolute Lymph Ct 2.30 x1000 Normal 1.20-4.80 [facility] Comment on above: Performed By: #### 1 12539, 950825, 165860 #### [facility] [address] [place] [address] 21615 Outside Sales Executive: Simba Obrien MD Absolute [place] [address] 0.30 x1000 Normal 0.10-1.00 [facility] Comment on above: Performed By: #### 1 29884, 887008, 511501 #### [facility] [address] [place] [address] 56719 Outside Sales Executive: Simba Obrien MD Absolute Neutrophil Ct 2.40 x1000 Normal 1.40-8.80 [facility] Comment on above: Performed By: #### 1 36900, 481250, 275781 #### [facility] [address] [place] [address] 17657 Outside Sales Executive: Simba Obrien MD Absolute Seg Ct 2.40 x1000 Normal 1.40-8.80 [facility] Comment on above: Performed By: #### 1 11045, 717605, 324835 #### [facility] [address] [place] [address] 04118 Outside Sales Executive: Simba Obrien MD Atypical Lymphs 30 % High 0-5 [facility] Comment on above: Performed By: #### 1 86399, 409748, 152614 #### [facility] [address] [place] [address] 79732 Outside Sales Executive: Simba Obrien MD Band form neutrophils/100 WBC (Bld) 0 % Normal [facility] Comment on above: Performed By: #### 1 86120, 080380, 489794 #### [facility] [address] [place] [address] 43795 Outside Sales Executive: Simba Obrien MD Lymphocytes/100 WBC (Bld) 46 % Normal [facility] Comment on above: Performed By: #### 1 37934, 721883, 032512 #### [facility] [address] [place] [address] 14397 Outside Sales Executive: Simba Obrein MD Monocytes/100 WBC (Bld) 6 % Normal [facility] Comment on above: Performed By: #### 1 21097, 498314, 957314 #### [facility] [address] [place] [address] 23228 Outside Sales Executive: Simba Obrien MD Polychromasia Present Normal [facility] Comment on above: Performed By: #### 1 18809, 887290, 479180 #### [facility] [address] [place] [address] 09113 Outside Sales Executive: Simba Obrien MD Segmented neutrophils/100 WBC (Bld) 48 % Normal [facility] Comment on above: Performed By: #### 1 90870, 728922, 247783 #### [facility] [address] [place] [address] 90854 Outside Sales Executive: Simba Obrien MD Operative Reporton 5 Operative Report Patient: ELIZABETH BARONE Age: 74 [...] sign off please call with questions. Normal [facility] Comment on above: Order Comment: Shawna roldan Attachment [id number] can be viewed in source systemMissing Attachment [id number] can be viewed in source systemMissing Attachment [id number] can be viewed in source systemMissing Attachment [id number] can be viewed in source systemMissing Attachment [id number] can be viewed in source systemMissing Attachment [id number] can be viewed in source systemMissing Attachment [id number] can be viewed in source systemMissing Attachment [id number] can be viewed in source systemMissing Attachment [id number] can be viewed in source systemMissing Attachment [id number] can be viewed in source systemMissing Attachment [id number] can be viewed in source systemMissing Attachment [id number] can be viewed in source system Result Comment: Operative Report Patient: POLASKELIZABETH Gross Age: 74 years Sex: Male : 1950 [...] Acute, MOHINDER HERNANDEZ, Gastroenterology Within Call for Appointment. Notes: Follow-up with pathology Proceed with colonoscopy. Normal [facility] Comment on above: Order Comment: Shawna roldan Attachment [id number] can be viewed in source systemMissing Attachment [id number] can be viewed in source systemMissing Attachment [id number] can be viewed in source systemMissing Attachment [id number] can be viewed in source systemMissing Attachment [id number] can be viewed in source systemMissing Attachment [id number] can be viewed in source systemMissing Attachment [id number] can be viewed in source systemMissing Attachment [id number] can be viewed in source systemMissing Attachment [id number] can be viewed in source system Result Comment: POC Glucoseon 12-09-2024 Glucose [Mass/Vol] 251 mg/dL High 72-100 [facility] Comment on above: Performed By: #### 1 45778, 553475, 584622 #### [facility] [address] [place] [address] Outside Sales Executive: Simba Obrien MD Glucose [Mass/Vol] 176 mg/dL High 72-100 [facility] Comment on above: Performed By: #### 1 71203, 970928, 496117 #### [facility] [address] [place], [place] [id number] Outside Sales Executive: Simba Obrien MD Glucose [Mass/Vol] 137 mg/dL High 72-100 [facility] Comment on above: Performed By: #### 1 93342, 496230 #### [facility] [address] [place] [address] Outside Sales Executive: Simba Obrien MD Glucose [Mass/Vol] 114 mg/dL High 72-100 [facility] Comment on above: Performed By: #### 1 38062, 978446, 291792 #### [facility] [address] [place] [address] Outside Sales Executive: Simba Obrien MD Progress Note-Physicianomid Progress Note-Physician TERE BARONE :1950 Registration Date:12/06/2024 [...] Inpatient acetaminophen(Tylenol), 650 mg= 2 tabs, ORAL, [id number], PRN acetaminophen(Tylenol), 650 mg= 2 tabs, ORAL, J6XJRWN, PRN acetaminophen(Tylenol), 650 mg= 2 tabs, ORAL, W8NPUVY, PRN ceftriaxone(Rocephin), 1 g= 50 mL, IV Piggyback, E63UGQHE droperidol = Inapsine, 0.625 mg= 0.25 mL, [...] IV melatonin, 5 mg= 1 tabs, ORAL, QHS/ZRLZVJOWGS0DMLB, PRN naloxone = Narcan, 0.4 mg= 1 mL, IV Push, PRN, PRN naloxone = Narcan, 0.2 mg= 0.5 mL, IV Push, PRN, PRN ondansetron(Zofran), 4 mg= 2 mL, IV Push, R7XEUXE, PRN ondansetron, 4 mg= 2 mL, IV Push, ONCE, PRN pantoprazole(Protonix), 40 mg, IV Push, X88SFZTS predniSONE, 90 mg= 9 tabs, ORAL, DAILY sodium chloride(Saline Flush), 3 mL, IV Push, G33MONYU sodium chloride(Saline Flush), 3 mL, IV Push, [...] 6 % (more content not included)... Normal [facility] Progress Note-Physician TERE BARONE :1950 Registration Date:12/06/2024 Subjective f/u L distal ureteral stone Still without L flank pain Colonoscopy today Review of Systems No flank pain Objective Vitals & Measurements T: 36.7 ?C (Oral) TMIN: 36.3 ?C (Oral) TMAX: 37.0 ?C (Oral) HR: 89 (Peripheral) RR: 22 BP: 146/80 SpO2: 95% Physical Exam No distress Medications Inpatient acetaminophen(Tylenol), 650 mg= 2 tabs, ORAL, G6XUXGK, PRN acetaminophen(Tylenol), 650 mg= 2 tabs, ORAL, X9SDNVL, PRN acetaminophen(Tylenol), 650 mg= 2 tabs, ORAL, Z2MCPNB, PRN ceftriaxone(Rocephin), 1 g= 50 mL, IV Piggyback, G20XEGLH glucagon, 1 mg, IM, PRN, PRN glucose(glucose [...] QIDWMHS melatonin, 5 mg= 1 tabs, ORAL, QHS/LDDZEFUVGJ2OQJU, PRN naloxone = Narcan, 0.4 mg= 1 mL, IV Push, PRN, PRN ondansetron(Zofran), 4 mg= 2 mL, IV Push, N2UFJZB, PRN pantoprazole(Protonix), 40 mg, IV Push, G09XPPIM predniSONE, 90 mg= 9 tabs, ORAL, DAILY sodium chloride(Saline Flush), 3 mL, IV Push, Y50JUHQV sodium chloride(Saline Flush), 3 mL, IV Push, [...] Ct 2.30 x1000 12/09/2024 04:[address] 0.30 x1000 12/09/2024 04:24 EDT Atypical [...] Bryan Sent to for review: RANDI LIM, [facility] Progress Note-Physician TERE BARONE :1950 Registration [...] Inpatient acetaminophen(Tylenol), 650 mg= 2 tabs, ORAL, I2ATPZF, PRN acetaminophen(Tylenol), 650 mg= 2 tabs, ORAL, S2EMXWR, PRN acetaminophen(Tylenol), 650 mg= 2 tabs, ORAL, E3WWJEO, PRN ceftriaxone(Rocephin), 1 g= 50 mL, IV Piggyback, W38XDMAC glucagon, 1 mg, IM, PRN, PRN glucose(glucose [...] sucrose(Venofer), 200 mg= 10 mL, IV Push, K84OXBWN melatonin, 5 mg= 1 tabs, ORAL, QHS/IDAZBKGKAX4SBNX, PRN naloxone = Narcan, 0.4 mg= 1 mL, IV Push, PRN, PRN ondansetron(Zofran), 4 mg= 2 mL, IV Push, T6BZMGF, PRN pantoprazole(Protonix), 40 mg, IV Push, T61OGTJX predniSONE, 90 mg, ORAL, DAILY sodium chloride(Saline Flush), 3 mL, IV Push, X70EQXRJ sodium chloride(Saline Flush), 3 mL, IV Push, [...] Ct 2.30 x1000 12/09/2024 04:[address] 0.30 x1000 12/09/2024 04:24 EDT Atypical [...] EDT RETIC, ROUTINE, 12/08/2024 16:54:00 EDT Normal [facility] XR ABDOMEN 1 VIEWon 12-10-19 25 XR [...] Nga Mendez MD 12/09/2024 02:16 PM EDT Technologist: LEW CHAND Dictated By: NGA MENDEZ MD Signed By: NGA MENDEZ MD Signed Out: 12/09/24 14:16:57 Normal [facility] BASICMETAon 12-08-2024 Calcium [Mass/Vol] 8.3 mg/dL Low 8.7-10.4 [facility] Comment on above: Performed By: #### 1 62438, 874012 #### [facility] [address] [place] [address] Outside Sales Executive: Simba Obrien MD Chloride [Moles/Vol] 111 mmol/L High 98-107 [facility] Comment on above: Performed By: #### 1 44560, 375415 #### [facility] [address] [place] [address] Outside Sales Executive: Simba Obrien MD CO2 [Moles/Vol] 22.0 mmol/L Normal 20.0-31.0 [facility] Comment on above: Performed By: #### 1 41911, 672299 #### [facility] [address] [place] [address] Outside Sales Executive: Simba Obrien MD Creatinine [Mass/Vol] 1.9 mg/dL High 0.6-1.1 [facility] Comment on above: Performed By: #### 1 27664, 872930 #### [facility] [address] [place] [address] Outside Sales Executive: Simba Obrien MD GFR AA 42 [facility] Comment on above: Result Comment: Afri can Afghan GFR Calc Medical judgement is necessary to [...] MDRD GFR equation Performed By: #### 1 75598, 643238 #### [facility] [address] [place] [address] Outside Sales Executive: Simba Obrien MD Glomerular Filtration Rate 35 mL/min/1.73m? [facility] Comment on above: Result Comment: Non- [...] MDRD GFR equation Performed By: #### 1 78757, 245079 #### [facility] [address] [place], [place] [id number] Outside Sales Executive: Simba Obrien MD Glucose [Mass/Vol] 103 mg/dL Normal 74-106 [facility] Comment on above: Performed By: #### 1 30459, 047628 #### [facility] [address] [place] [address] Outside Sales Executive: Simba Obrien MD Osmolality [Osmolality] 288 mosm/kg Normal 275-295 [facility] Comment on above: Performed By: #### 1 70706, 692153 #### [facility] [address] [place], [place] [address] Outside Sales Executive: Simba Obrien MD Potassium [Moles/Vol] 4.3 mmol/L Normal 3.5-5.1 [facility] Comment on above: Performed By: #### 1 26056, 220651 #### [facility] [address] [place], [place] [address] Outside Sales Executive: Simba Obrien MD Sodium [Moles/Vol] 142 mmol/L Normal 135-145 [facility] Comment on above: Performed By: #### 1 27388, 846096 #### [facility] [address] [place], [place] [address] Outside Sales Executive: Simba Obrien MD Urea nitrogen [Mass/Vol] 24 mg/dL High 9-23 [facility] Comment on above: Result Comment: - Ve nipuncture should occur prior to N-Acetyl Cysteine (NAC) or Metamizole (Sulpyrine) administration due to the potential for falsely depressed results. - Blood samples from some patients with monoclonal gammopathies may produce falsely elevated results Performed By: #### 1 16521, 255185 #### [facility] [address] [place] [address] Outside Sales Executive: Simba Obrien MD Urea nitrogen/Creatinine [Mass ratio] 12.6 mg/mg Normal [facility] Comment on above: Performed By: #### 1 79553, 438154 #### [facility] [address] [place] [address] Outside Sales Executive: Simba Obrien MD C URINEon 12-08-2024 C URINE [facility] pt of Laboratory Services [address] [place] [id number] Name: TERE BARONE : 1950 Admitting DEANNE BUTTERFIELD MD Provider: Gender Male Financial [id number] : Number: Locatio 2DMO; D244; 01 n: Admit 12/06/2024 Date: Discharge Microbiology Date: PROCEDURE: C URINE [] SOURCE: CLEAN CATCH BODY SITE: COLLECTED DATE/TIME: 12/06/2024 18:25 EDT RECEIVED DATE/TIME: 12/07/2024 02:53 EDT START DATE/TIME: 12/07/2024 02:53 EDT FREE TEXT SOURCE: ORDERING PHYSICIAN: DEANNE BUTTERFIELD MD FINAL REPORTS Final Report [] Verified Date/Time: 12/08/2024 08:32 EDT No significant growth. ____ L=Low, H= High, *= Abnormal, C=Critical, f=Footnote, c=Corrected, i=Interp Data Name: TERE BARONE Print 12/08/2024 08:32 EDT Date/Time: Normal [facility] Comment on above: Performed By: #### 1 39223, 035073, 024359 #### [facility] [address] [place] [address] Outside Sales Executive: Simba Obrein MD CBCNDon 12-08-2024 DxH Actions See Notes Abnormal [facility] Comment on above: Result Comment: SNV Performed By: #### 1 02145, 173434 #### [facility] [address] [place] [address] Outside Sales Executive: Simba Obrien MD Erythrocyte distribution width (RBC) [Ratio] 20.8 % High 11.5-14.5 [facility] Comment on above: Performed By: #### 1 71415, 104640 #### [facility] [address] [place] [address] Outside Sales Executive: Simba Obrien MD Hematocrit (Bld) [Volume fraction] 17.5 % Critically abnormal 41.0-52.0 [facility] Comment on above: Result Comment: Resu lts rechecked and called to TM on 12/08/2024 07:35:12 EDT, RBR/mfk Performed By: #### 1 80919, 751629 #### [facility] [address] [place] [address] Outside Sales Executive: Simba Obrien MD Hemoglobin (Bld) [Mass/Vol] 5.6 g/dL Critically abnormal 13.5-17.5 [facility] Comment on above: Result Comment: Resu lts rechecked and called to TM on 12/08/2024 07:35:12 EDT, RBR/mfk Performed By: #### 1 52363, 262603 #### [facility] [address] [place] [address] Outside Sales Executive: Simba Obrien MD Instr WBC ND 4.8 Normal [facility] Comment on above: Performed By: #### 1 51420, 081968 #### [facility] [address] [place] [address] Outside Sales Executive: Simba Obrien MD MCH (RBC) [Entitic mass] 28.7 pg Normal 27.0-34.0 [facility] Comment on above: Performed By: #### 1 92287, 423897 #### [facility] [address] [place] [address] Outside Sales Executive: Simba Obrien MD MCHC (RBC) [Mass/Vol] 31.9 g/dL Low 32.0-37.0 [facility] Comment on above: Performed By: #### 1 55844, 218588 #### [facility] [address] [place] [address] Outside Sales Executive: Simba Obrien MD MCV (RBC) [Entitic vol] 90.0 fL Normal 80.0-100.0 [facility] Comment on above: Performed By: #### 1 07185, 715801 #### [facility] [address] [place] [address] Outside Sales Executive: Simba Obrien MD Platelet 253 x10 Normal 150-450 [facility] Comment on above: Performed By: #### 1 24742, 424358 #### [facility] [address] [place] [address] Outside Sales Executive: Simba Obrien MD Platelet mean volume (Bld) [Entitic vol] 6.6 fL Low 7.4-10.4 [facility] Comment on above: Performed By: #### 1 19827, 159189 #### [facility] [address] [place] [address] Outside Sales Executive: Simba Obrien MD RBC 1.94 x10 Low 4.70-6.10 [facility] Comment on above: Result Comment: Note : RBC morphology is normal unless otherwise stated. Evaluation performed only if differential is requested. Performed By: #### 1 70179, 231523 #### [facility] [address] [place] [address] Outside Sales Executive: Simba Obrien MD WBC 4.8 x10 Normal 4.5-11.0 [facility] Comment on above: Performed By: #### 1 22152, 954856 #### [facility] [address] [place] [address] Outside Sales Executive: Simba Obrien MD Consult Reporton 12-08-2024 Consult [...] Inpatient acetaminophen(Tylenol), 650 mg= 2 tabs, ORAL, P4QUPBO, PRN acetaminophen(Tylenol), 650 mg= 2 tabs, ORAL, E4XAICN, PRN acetaminophen(Tylenol), 650 mg= 2 tabs, ORAL, E0TQLNZ, PRN ceftriaxone(Rocephin), 1 g= 50 mL, IV Piggyback, Z43WKVKW glucagon, 1 mg, IM, PRN, PRN glucose(glucose [...] sucrose(Venofer), 200 mg= 10 mL, IV Push, V08BTXXZ melatonin, 5 mg= 1 tabs, ORAL, QHS/JZBWJWJYLD7LJTW, PRN naloxone = Narcan, 0.4 mg= 1 mL, IV Push, PRN, PRN ondansetron(Zofran), 4 mg= 2 mL, IV Push, W8MZKCM, PRN pantoprazole(Protonix), 40 mg, IV Push, Q72RPKLD polyethylene glycol 3350 with electrolytes(GoLYTELY), 4000 mL, ORAL, ONCE sodium chloride(Saline Flush), 3 mL, IV Push, W36VEUJN sodium chloride(Saline Flush), 3 mL, IV Push, [...] = Zofran), 4 mg= 1 tabs, ORAL, D4DRKUS, PRN semaglutide(Rybelsus 14 mg oral tablet), 14 [...] require additional/n (more content not included)... Normal [facility] HAPTOon 12-08-2024 Haptoglobin <10 Low 30-200 [facility] Comment on above: Performed By: #### 1 61532, 247079, 067852 #### [facility] [address] [place] [id number] Outside Sales Executive: Simba Obrien MD LDHon 12-08-2024 LDH 544 unit/L High 120-246 [facility] Comment on above: Performed By: #### 1 33551, 654985, 124629 #### [facility] [address] [place] [address] Outside Sales Executive: Simba Obrien MD POC Glucoseon 12-08-2024 Glucose [Mass/Vol] 95 mg/dL Normal 72-100 [facility] Comment on above: Performed By: #### 1 81365, 648075, 357918 #### [facility] [address] [place] [address] Outside Sales Executive: Simba Obrien MD Glucose [Mass/Vol] 91 mg/dL Normal 72-100 [facility] Comment on above: Performed By: #### 1 08781, 555751, 094022 #### [facility] [address] [place] [address] Outside Sales Executive: Simba Obrien MD Glucose [Mass/Vol] 96 mg/dL Normal 72-100 [facility] Comment on above: Performed By: #### 1 [id number] #### [facility] [address] [place] [address] Outside Sales Executive: Simba Obrien MD Glucose [Mass/Vol] 105 mg/dL High 72-100 [facility] Comment on above: Performed By: #### 1 54655, 533303 #### [facility] [address] [place] [address] Outside Sales Executive: Simba Obrien MD Pathologist Reviewon 025 Diff [...] serum iron studies for further investigation. Normal [facility] Comment on above: Order Comment: Added on by Discern Expert Rule. Result Comment: KARLEE ELENA (Electronic Signature) Date Verified 12/08/24 Performed By: #### 1 [id number] #### [facility] [address] [place] [address] Outside Sales Executive: Simba Obrien MD Progress Note-Physicianomid Progress Note-Physician TERE BARONE :1950 Registration Date:12/06/2024 [...] Care Unit BASE PUMP and Pole, 1 [facility] ONE TIME Task(Confirm Type and Crossmatch order with Blood Bank), Confirm Type and Crossmatch order with Blood Bank, 12/07/2024 08:37:00 EDT, 12/07/2024 08:37:00 EDT, 12/07/2024 08:37:00 EDT [facility] ONE TIME Task(Order H&H), Order H&H, 12/07/2024 08:37:00 EDT, If Physician order is for multi-unit Leuko Reduced PRBC transfusion, 60 mins after first unit completed, 12/07/2024 08:37:00 EDT, 12/07/2024 08:37:00 EDT [facility] ONE TIME Task(Give Patient Education Titles:), Give Patient Education Titles:, 12/07/2024 08:37:00 EDT, Blood Transfusion Information [facility] ([facility]) and Post Transfusion Discharge Instructions [facility] ([facility]), 12/07/2024 08:37:00 EDT, 12/07/2024 08:37:00 EDT Obtain Consent, 12/07/2024 08:37:00 EDT, Consent/Refusal for Transfusion of Blood or Blood Products Form [id number], 12/07/2024 08:37:00 EDT POC Glucose, Blood, Collected [...] No swelling, No deformity. Integumentary: Warm, Dry, [place], No rash. Neurologic: Alert, Oriented, Normal sensory, Normal motor function, No focal deficits, Cranial Nerves II-XII are grossly intact. Cognition and Speech: Oriented, Speech clear and coherent. Psychiatric: Cooperative, Appropriate mood & affect, Normal judgment Medications Inpatient acetaminophen(Tylenol), 650 mg= 2 tabs, ORAL, T9WNMYK, PRN acetaminophen(Tylenol), 650 mg= 2 tabs, ORAL, T3ZAGXT, PRN acetaminophen(Tylenol), 650 mg= 2 tabs, ORAL, H9KHRJH, PRN ceftriaxone(Rocephin), 1 g= 50 mL, IV Piggyback, D79XHDMJ glucagon, 1 mg, IM, PRN, PRN glucose(glucose 15 g/42 mL oral gel), 15 (more content not included)... Normal [facility] Progress Note-Physician TERE BARONE :1950 Registration Date:12/06/2024 [...] Inpatient acetaminophen(Tylenol), 650 mg= 2 tabs, ORAL, Q0WGKCK, PRN acetaminophen(Tylenol), 650 mg= 2 tabs, ORAL, U8HUCZD, PRN acetaminophen(Tylenol), 650 mg= 2 tabs, ORAL, L0DAVDU, PRN ceftriaxone(Rocephin), 1 g= 50 mL, IV Piggyback, N43TBZFM glucagon, 1 mg, IM, PRN, PRN glucose(glucose [...] sucrose(Venofer), 200 mg= 10 mL, IV Push, X99DDMCK melatonin, 5 mg= 1 tabs, ORAL, QHS/JMLIDIPCFU5DEOE, PRN naloxone = Narcan, 0.4 mg= 1 mL, IV Push, PRN, PRN ondansetron(Zofran), 4 mg= 2 mL, IV Push, K9BDZMQ, PRN pantoprazole(Protonix), 40 mg, IV Push, L51IUJAD sodium chloride(Saline Flush), 3 mL, IV Push, W82ISDOO sodium chloride(Saline Flush), 3 mL, IV Push, [...] patient. Benefi (more content not included)... Normal [facility] Progress Note-Physician TERE BARONE :1950 Registration Date:12/06/2024 [...] Inpatient acetaminophen(Tylenol), 650 mg= 2 tabs, ORAL, Z0CNLDE, PRN acetaminophen(Tylenol), 650 mg= 2 tabs, ORAL, H0ZXYAC, PRN acetaminophen(Tylenol), 650 mg= 2 tabs, ORAL, K9XSEOF, PRN ceftriaxone(Rocephin), 1 g= 50 mL, IV Piggyback, N04FYSJE glucagon, 1 mg, IM, PRN, PRN glucose(glucose [...] sucrose(Venofer), 200 mg= 10 mL, IV Push, B56IVZKD melatonin, 5 mg= 1 tabs, ORAL, QHS/AQCEWTADUD0BFUB, PRN naloxone = Narcan, 0.4 mg= 1 mL, IV Push, PRN, PRN ondansetron(Zofran), 4 mg= 2 mL, IV Push, V2LZWYH, PRN pantoprazole(Protonix), 40 mg, IV Push, O59CQRGA sodium chloride(Saline Flush), 3 mL, IV Push, G27ITRVO sodium chloride(Saline Flush), 3 mL, IV Push, [...] with Dr. Vines who will follow Normal [facility] Progress Note-Physician TERE BARONE :1950 Registration Date:12/06/2024 [...] Inpatient acetaminophen(Tylenol), 650 mg= 2 tabs, ORAL, D1CTSAZ, PRN acetaminophen(Tylenol), 650 mg= 2 tabs, ORAL, Y4RIXFM, PRN acetaminophen(Tylenol), 650 mg= 2 tabs, ORAL, T6GBVPI, PRN ceftriaxone(Rocephin), 1 g= 50 mL, IV Piggyback, E01XZLFH glucagon, 1 mg, IM, PRN, PRN glucose(glucose [...] sucrose(Venofer), 200 mg= 10 mL, IV Push, H29XOJVE melatonin, 5 mg= 1 tabs, ORAL, QHS/UXHIPPWLGJ4YTJO, PRN naloxone = Narcan, 0.4 mg= 1 mL, IV Push, PRN, PRN ondansetron(Zofran), 4 mg= 2 mL, IV Push, F3OHEYX, PRN pantoprazole(Protonix), 40 mg, IV Push, Q82GCJXG sodium chloride(Saline Flush), 3 mL, IV Push, D12LBKMF sodium chloride(Saline Flush), 3 mL, IV Push, [...] to for review: SIMBA GONZALEZ MD Normal [facility] RBC Transfusion Request Non Active Bleedingon 12-08-2024 # Units 1 Normal [facility] Comment on above: Performed By: #### 1 83552, 310964, 377777 #### [facility] [address] [place], [place] [id number] Outside Sales Executive: Simba Obrien MD Status of Blood/Components Blood Available Normal [facility] Comment on above: Performed By: #### 1 65306, 860698, 050653 #### [facility] [address] [place], [place] [address] Outside Sales Executive: Simba Obrien MD Result Comment: 11/11 1:06 TMESSINA Availability called to: elaine LIVE, 12/08/2024 01:06:13 EDT..tw RETICon 12-08-2024 DxH Actions See Notes Abnormal [facility] Comment on above: Result Comment: SNV Performed By: #### 1 23533, 647188, 015732 #### [facility] [address] [place] [address] Outside Sales Executive: Simba Obrien MD Hematocrit (Bld) [Volume fraction] 17.2 % Critically abnormal 41.0-52.0 [facility] Comment on above: Result Comment: Crit ical results called previously with CBC Performed By: #### 1 89103, 524501, 587528 #### [facility] [address] [place] [address] Outside Sales Executive: Simba Obrien MD Immature Retic Fraction 0.65 High 0.20-0.50 [facility] Comment on above: Performed By: #### 1 52887, 153378, 303150 #### [facility] [address] [place] [address] Outside Sales Executive: Simba Obrien MD RBC 1.87 x10 Low 4.70-6.10 [facility] Comment on above: Result Comment: Note : RBC morphology is normal unless otherwise stated. Evaluation performed only if differential is requested. Performed By: #### 1 72370, 339577, 755404 #### [facility] [address] [place] [address] Outside Sales Executive: Simba Obrien MD Retic Absolute 166 x10 High 22-110 [facility] Comment on above: Performed By: #### 1 49159, 369857, 233551 #### [facility] [address] [place] [address] Outside Sales Executive: Simba Obrien MD Retic Corrected 3.4 % Normal [facility] Comment on above: Result Comment: Danielle ected Reticulocyte Count Reference Ranges: Hematocrit greater than 35 = NA Hematocrit less than 35 = 2-3% Hematocrit less than 25 = 3-5% Performed By: #### 1 13784, 252099, 081881 #### [facility] [address] [place] [address] Outside Sales Executive: Simba Obrien MD Retic Count 8.9 % High 0.5-2.5 [facility] Comment on above: Performed By: #### 1 91992, 262981, 995023 #### [facility] [address] [place] [address] Outside Sales Executive: Simba Obrien MD ABO TUBEon 12-07-2024 a cells 0 Normal [facility] Comment on above: Performed By: #### 1 57329, 292110, 218884 #### [facility] [address] [place] [address] Outside Sales Executive: Simba Obrien MD ABORh Interpretation Positive Normal [facility] Comment on above: Performed By: #### 1 51366, 841459, 658877 #### [facility] [address] [place] [address] Outside Sales Executive: Simba Obrien MD Anti-A 4+ Normal [facility] Comment on above: Performed By: #### 1 51411, 551665, 147198 #### [facility] [address] [place] [address] Outside Sales Executive: Simba Obrien MD Anti-B 0 Normal [facility] Comment on above: Performed By: #### 1 98389, 472462, 316443 #### [facility] [address] [place] [address] Outside Sales Executive: Simba Obrien MD Anti-D 4+ Normal [facility] Comment on above: Performed By: #### 1 76008, 886904, 299968 #### [facility] [address] [place] [address] Outside Sales Executive: Simba Obrien MD b cells 2+ Normal [facility] Comment on above: Performed By: #### 1 44860, 801020, 722786 #### [facility] [address] [place] [address] Outside Sales Executive: Simba Obrien MD Patient History Check Previous Hx Normal [facility] Comment on above: Performed By: #### 1 14314, [id number], [id number] #### [facility] [address] [place] [address] Outside Sales Executive: Simba Obrien MD ABSCon 12-07-2024 ABSC Final Interp Positive Normal [facility] Comment on above: Result Comment: 11/10 8:02 [id number] ARC reference specimen being sent for further testing; See ABID result. Performed By: #### 1 57723, [id number], [id number] #### [facility] [address] [place] [address] 78594 Outside Sales Executive: Simba Obrien MD Pt Hx check done? Yes Normal [facility] Comment on above: Performed By: #### 1 56293, 669519, 533300 #### [facility] [address] [place] [address] 08934 Outside Sales Executive: Simba Obrien MD VS SCI Gel 2+ [facility] Comment on above: Performed By: #### 1 90187, 436845, [id number] #### [facility] [address] [place] [address] 45069 Outside Sales Executive: Simba Obrien MD VS SCII Gel 2+ [facility] Comment on above: Performed By: #### 1 31767, 439702, 035920 #### [facility] [address] [place] [address] 08897 Outside Sales Executive: Simba Obrien MD ABSC MANUALon 12-07-2024 37 0 [facility] Comment on above: Performed By: #### 1 01645, 166748, [id number] #### [facility] [address] [place] [address] 63133 Outside Sales Executive: Simba Obrien MD ABSC Final Interp Positive Abnormal [facility] Comment on above: Result Comment: 11/10 8:18 [id number] ARC reference specimen being sent for further testing; See ABID result. Performed By: #### 1 09336, [id number], [id number] #### [facility] [address] [place] [address] 04064 Outside Sales Executive: Simba Obrien MD [facility]+ [facility] Comment on above: Performed By: #### 1 33143, 813162, [id number] #### [facility] [address] [place] [address] Outside Sales Executive: Simba Obrien MD CC 2+ [facility] Comment on above: Performed By: #### 1 67881, 668593, 194111 #### [facility] [address] [place] [address] Outside Sales Executive: Simba Obrien MD Pt Hx check done? Yes [facility] Comment on above: Performed By: #### 1 14673, 878030, 136504 #### [facility] [address] [place] [address] Outside Sales Executive: Simba Obrien MD Admission Assessment Adulton 12-07-2024 Admission Assessment Adult Adult Admission Data Entered On: 12/07/2024 20:47 EDT Performed On: 12/07/2024 20:45 EDT by Daniela Velez RN Patient Safety Grid ID Band on and Verified : Yes Allergy Building Specialist : Yes Latex Tote : Yes Diabetic Building Specialist : Yes Fall Risk Building Specialist : Yes No Blood Building Specialist : No Restricted Extremity Band On : No Domo Ontiveros RN - 12/07/2024 23:39 EDT (As Of: 12/07/2024 23:42:13 [...] 6 hr Abuse/Violence Concerns? : Patient denies Daniela Velez RN - 12/07/2024 20:45 EDT Depression Screening Patient able to verbalize? : Yes Feeling Down, Depressed, Hopeless : Not at all Little Interest - Pleasure in Activities : Not at all Initial Depression Screen Score : 0 Depression Screening Score 0 : No IP Pt being evaluated or treated for BH conditions : No Daniela Velez RN 12/07/2024 20:45 EDT Nayeli Coma Eye Opening Response Nayeli : Spontaneously Best Verbal Response Ashby : Oriented Best Motor Response Ashby : Obeys simple commands Ashby Coma Score : 15 Domo Ontiveros RN 12/07/2024 23:39 EDT Neuro Characteristics of Speech : Clear Orientation : Oriented x 3 Level of Consciousness : Alert Affect / Behavior : Appropriate, Calm Sensory Perception Irving : No impairment Extremity Movement : Equal Gait : Steady with assist Aspiration Risk : None CN VII Facial Expression and Symmetry : Facial movement symmetrical Weston PEPE [facility] 12/07/2024 23:39 EDT CardioVascular Heart Rhythm : [...] Devices : None ADLs : Moderate assist Domo Ontiveros RN 12/07/2024 23:39 EDT GI Abdomen Description : Rounded Abdomen Palpation : Non-Tender, Soft Passing Flatus : Yes Bowel Movement Last Date Known : No Domo Ontiveros RN 12/07/2024 23:39 EDT Bladder Distention : Absent Domo Ontiveros RN 12/07/2024 23:39 EDT Integumentary Skin Integrity : Intact Skin Temperature : Warm Skin Color : Normal for ethnicity Skin Turgor : Elastic Mucous Membrane Color : [place] Mucous Membrane Description : Moist Skin Description : Dry Domo Ontiveros RN 12/07/2024 23:39 EDT Present on Admission Medical Devices : None Medical Devices for Med Administration : None Daniela Velez RN 12/07/2024 20:45 EDT Education Responsible Learner/s Present [...] your admission? : No Daniela Velez RN - 12/07/2024 20:45 EDT Normal [facility] Comment on above: Order Comment: Order entered secondary to admissionVirtual nurse section completed. Bedside nurse to complete remaining section. B12 FOLATEon 12-07-2024 Cobalamin (Vitamin B12) [Mass/Vol] 1294 pg/mL High 211-911 [facility] Comment on above: Order Comment: Add t o this a.m. blooddraw Performed By: #### 1 07486, 516770, 495426 #### [facility] [address] [place] [address] [phone] Outside Sales Executive: Simba Obrien MD FOLATE 22.5 ng/mL High 5.4-17.5 [facility] Comment on above: Order Comment: Add t o this a.m. blooddraw Result Comment: Meth otrexate and leucovorin interfere with folate measurement because these drugs cross-react with folate binding proteins. Performed By: #### 1 02720, 841094, 430621 #### [facility] [address] [place] [address] [phone] Outside Sales Executive: Simba Obrien MD BASICMETAon 12-07-2024 Calcium [Mass/Vol] 8.3 mg/dL Low 8.7-10.4 [facility] Comment on above: Performed By: #### 1 28410, 699162, 701157 #### [facility] [address] [place] [address] 44130 Outside Sales Executive: Simba Obrien MD Chloride [Moles/Vol] 111 mmol/L High 98-107 [facility] Comment on above: Performed By: #### 1 69289, 893897, 173933 #### [facility] [address] [place] [address] Outside Sales Executive: Simba Obrien MD CO2 [Moles/Vol] 23.0 mmol/L Normal 20.0-31.0 [facility] Comment on above: Performed By: #### 1 52129, 282480, 689467 #### [facility] [address] [place] [address] Outside Sales Executive: Simba Obrien MD Creatinine [Mass/Vol] 1.9 mg/dL High 0.6-1.1 [facility] Comment on above: Performed By: #### 1 32134, 327860, 037126 #### [facility] [address] [address] Outside Sales Executive: Simba Obrien MD GFR AA 42 [facility] Comment on above: Result Comment: Afri can Afghan GFR Calc Medical judgement is necessary to [...] MDRD GFR equation Performed By: #### 1 98739, 839316, 324343 #### [facility] [address] [place] [address] Outside Sales Executive: Simba Obrien MD Glomerular Filtration Rate 35 mL/min/1.73m? [facility] Comment on above: Result Comment: Non- [...] MDRD GFR equation Performed By: #### 1 06596, 046217, 347953 #### [facility] [address] [place] [address] Outside Sales Executive: Simba Obrien MD Glucose [Mass/Vol] 92 mg/dL Normal 74-106 [facility] Comment on above: Performed By: #### 1 55606, 988644, 259697 #### [facility] [address] [place] [address] 89847 Outside Sales Executive: Simba Obrien MD Osmolality [Osmolality] 290 mosm/kg Normal 275-295 [facility] Comment on above: Performed By: #### 1 83105, 230066, 379425 #### [facility] [address] [place] [address] 15861 Outside Sales Executive: Simba Obrien MD Potassium [Moles/Vol] 4.2 mmol/L Normal 3.5-5.1 [facility] Comment on above: Performed By: #### 1 44493, 782025, 709783 #### [facility] [address] [place] [address] 76556 Outside Sales Executive: Simba Obrien MD Sodium [Moles/Vol] 142 mmol/L Normal 135-145 [facility] Comment on above: Performed By: #### 1 91063, 138403, 348795 #### [facility] [address] [place] [address]88 Outside Sales Executive: Simba Obrien MD Urea nitrogen [Mass/Vol] 32 mg/dL High 9-23 [facility] Comment on above: Result Comment: - Ve nipuncture should occur prior to N-Acetyl Cysteine (NAC) or Metamizole (Sulpyrine) administration due to the potential for falsely depressed results. - Blood samples from some patients with monoclonal gammopathies may produce falsely elevated results Performed By: #### 1 76071, 343693, 899380 #### [facility] [address] [place] [address] 83168 Outside Sales Executive: Simba Obrien MD Urea nitrogen/Creatinine [Mass ratio] 16.8 mg/mg Normal [facility] Comment on above: Performed By: #### 1 42844, 377957, 952582 #### 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 Personal Devices : Dentures, upper Carmenza Driver - 12/07/2024 19:01 EDT Room Orientation/Facility Policy Reviewed : Yes Room Orientation/Policy Reviewed With : Patient Patient Safety : Bed / Chair Alarm, Bed in low position, Call device within reach, Fall flight test data acquisition technician ID Band, Falling [place], ID band check, Mobility support items readily available, Night light, Non-Slip footwear, Personal items within reach, Sensory aids within reach, Upper/Half-length side-rails up, Traffic path in room free of clutter, Wheels locked Demonstrates Ability to Use Call Light Successfully : Yes Carmenza Driver - 12/07/2024 19:01 EDT Normal [facility] Comment on above: Order Comment: Order entered secondary to admission CBCNDon 12-07-2024 DxH Actions See Notes Abnormal [facility] Comment on above: Result Comment: SNV Performed By: #### 1 63271, 125386, 734887 #### [facility] [address] [place] [address] 81639 Outside Sales Executive: Simba Obrien MD Erythrocyte distribution width (RBC) [Ratio] 20.8 % High 11.5-14.5 [facility] Comment on above: Performed By: #### 1 29699, 436567, 645388 #### [facility] [address] [place] [address] 12044 Outside Sales Executive: Simba Obrien MD Hematocrit (Bld) [Volume fraction] 17.7 % Critically abnormal 41.0-52.0 [facility] Comment on above: Performed By: #### 1 63582, 062531, 921245 #### [facility] [address] [place] [address] 85697 Outside Sales Executive: Simba Obrien MD Hemoglobin (Bld) [Mass/Vol] 5.6 g/dL Critically abnormal 13.5-17.5 [facility] Comment on above: Result Comment: Resu lts rechecked and called to ELAINE THURSTON, 12/07/2024 06:40:26 EDT..tw Performed By: #### 1 16928, 595413, 210832 #### [facility] [address] [place] [address] 95437 Outside Sales Executive: Simba Obrien MD Instr WBC ND 5.2 Normal [facility] Comment on above: Performed By: #### 1 01901, 651896, 076223 #### [facility] [address] [place] [address] 10041 Outside Sales Executive: Simba Obrien MD MCH (RBC) [Entitic mass] 28.5 pg Normal 27.0-34.0 [facility] Comment on above: Performed By: #### 1 , 933920, 003672 #### [facility] [address] [place] [address] 44776 Outside Sales Executive: Simba Obrien MD MCHC (RBC) [Mass/Vol] 31.6 g/dL Low 32.0-37.0 [facility] Comment on above: Performed By: #### 1 , 696223, 945485 #### [facility] [address] [place] [address] 45015 Outside Sales Executive: Simba Obrien MD MCV (RBC) [Entitic vol] 90.3 fL Normal 80.0-100.0 [facility] Comment on above: Performed By: #### 1 , 625848, 714008 #### [facility] [address] [place] [address] 38304 Outside Sales Executive: Simba Obrien MD Platelet 258 x10 Normal 150-450 [facility] Comment on above: Performed By: #### 1 , 736881, 261314 #### [facility] [address] [place] [address] 25953 Outside Sales Executive: Simba Obrien MD Platelet mean volume (Bld) [Entitic vol] 6.4 fL Low 7.4-10.4 [facility] Comment on above: Performed By: #### 1 , 491860, 731812 #### [facility] [address] [place] [address] 79621 Outside Sales Executive: Simab Obrien MD RBC 1.96 x10 Low 4.70-6.10 [facility] Comment on above: Result Comment: Note : RBC morphology is normal unless otherwise stated. Evaluation performed only if differential is requested. Performed By: #### 1 , 712804, 260227 #### [facility] [address] [place] [address] Outside Sales Executive: Simba Obrien MD WBC 5.2 x10 Normal 4.5-11.0 [facility] Comment on above: Performed By: #### 1 31426, 318973, 262413 #### [facility] [address] [place] [address] Outside Sales Executive: Simba Obrien MD ALIX C3D TUBEon 12-07-2024 5 min Rm Temp 0 Normal [facility] Comment on above: Performed By: #### 5 [id number] #### [facility] [address] [place] [address] Outside Sales Executive: Simba Obrien MD CC Not Done Normal [facility] Comment on above: Performed By: #### 5 [id number] #### [facility] [address] [place] [address] 83975 Outside Sales Executive: Simba Obrien MD ALIX Complement Interp Positive Normal [facility] Comment on above: Performed By: #### 5 [id number] #### [facility] [address] [place] [address] Outside Sales Executive: Simba Obrien MD IS 0 Normal [facility] Comment on above: Performed By: #### 5 [id number] #### [facility] [address] [place] [address] Outside Sales Executive: Simba Obrien MD ED Physician Reporton 2024 [...] guarding or rebound.] Rectal exam performed with curtain inspector. Negative for guaiac stool. Genitourinary: [Deferred.] Lymphatics: [...] interpreted by me. Patient was placed on cardiac exercise physiologist during entire ED course. Laboratory and imaging [...] Procalcitonin is (more content not included)... Normal [facility] FERRITINon 12-07-2024 Ferritin [Mass/Vol] 303 ng/mL Normal 22-322 [facility] Comment on above: Order Comment: Add t o this a.m. blooddraw Result Comment: Seru m ferritin values are elevated in the presence of the following conditions and do not reflect actual body iron stores: - Inflammation - Significant tissue destruction - Liver disease - Malignancies such as acute leukemia and Hodgkin?s disease - Therapy with iron supplements Performed By: #### 1 24787, 186487, 756052 #### [facility] [address] [place] [address] Outside Sales Executive: Simba Obrien MD POC Glucoseon 12-07-2024 Glucose [Mass/Vol] 117 mg/dL High 72-100 [facility] Comment on above: Performed By: #### 1 [id number] #### [facility] [address] [place] [address] 64283 Outside Sales Executive: Simba Obrien MD Glucose [Mass/Vol] 92 mg/dL Normal 72-100 [facility] Comment on above: Performed By: #### 1 32065, 760351, 407890 #### [facility] [address] [place] [address] 19285 Outside Sales Executive: Simba Obrien MD TROPONIN HS 6HRon 12-07-2024 Delta Troponin 6 Hr 1 pg/mL Normal 0-14 [facility] Comment on above: Result Comment: The term acute myocardial infarction should be used when there is acute myocardial injury with clinical evidence of acute myocardial ischemia and the rise or fall of serial Troponin HS values (delta troponin) greater than or equal to 15 pg/mL with at least one Troponin HS value above the 99th percentile reference range Performed By: #### 1 08228, 944310 #### [facility] [address] [place] [address] 15666 Outside Sales Executive: Simba Obrien MD Troponin HS 6 Hr 7 pg/mL Normal 3-53 [facility] Comment on above: Result Comment: Spec imens from some individuals with pathologically high gamma globulin levels may demonstrate depressed troponin values Performed By: #### 1 10461, 608333 #### [facility] [address] [place] [address] Outside Sales Executive: Simba Obrien MD ABORHon 12-06-2024 ABORH Interpretation Positive Normal [facility] Comment on above: Performed By: #### 5 [id number] #### [facility] [address] [place] [address] 85994 Outside Sales Executive: Simba Obrien MD Patient History Check Previous Hx Normal [facility] Comment on above: Performed By: #### 5 [id number] #### [facility] [address] [place] [address] 34822 Outside Sales Executive: Simba Obrien MD VS 0.8% a cells 0 Normal [facility] Comment on above: Performed By: #### 5 [id number] #### [facility] [address] [place] [address] 13194 Outside Sales Executive: Simba Obrien MD VS 0.8% b cells 1+ Normal [facility] Comment on above: Performed By: #### 5 [id number] #### [facility] [address] [place] [address] 86077 Outside Sales Executive: Simba Obrien MD VS Anti-A Unit 4+ Normal [facility] Comment on above: Performed By: #### 5 [id number] #### [facility] [address] [place] [address] 40318 Outside Sales Executive: Simba Obrien MD VS Anti-B Unit 0 Normal [facility] Comment on above: Performed By: #### 5 [id number] #### [facility] [address] [place] [address] 42135 Outside Sales Executive: Simba Obrien MD VS Anti-D Unit 4+ Normal [facility] Comment on above: Performed By: #### 5 [id number] #### [facility] [address] [place] [address] 87956 Outside Sales Executive: Simba Obrien MD ABSCon 12-06-2024 ABSC Final Interp Positive Normal [facility] Comment on above: Result Comment: 11/10 22:56 [id number] See results of ABID..ah Performed By: #### 5 [id number] #### [facility] [address] [place] [address]654 Outside Sales Executive: Simba Obrien MD Pt Hx check done? Yes Normal [facility] Comment on above: Result Comment: 11/10 22:56 22361 Per JM, patient states no history of transufusion...ah Performed By: #### 5 [id number] #### [facility] [address] [place] [address] 85330 Outside Sales Executive: Simba Obrien MD VS SCI Gel 2+ Normal [facility] Comment on above: Performed By: #### 5 [id number] #### [facility] [address] [place] [address] 44130 Outside Sales Executive: Simba Obrien MD VS SCII Gel 3+ Normal [facility] Comment on above: Performed By: #### 5 [id number] #### [facility] [address] [place], [place] [id number] Outside Sales Executive: Simba Obrien MD APTTon 12-06-2024 aPTT Coag (Bld) [Time] 29.8 s Normal 26.0-36.0 [facility] Comment on above: Result Comment: APTT Interpretation: This test has not been validated to monitor heparin therapy. APTT test is used as an initial test for suspected bleeding disorder. Anti-Xa UFH test is used to monitor heparin therapy. Performed By: #### 1 [id number] #### [facility] [address] [place], [place] [id number] Outside Sales Executive: Simba Obrien MD AUTO DIFFon 12-06-2024 Baso Count 0.02 x1000 Normal 0.00-0.20 [facility] Comment on above: Performed By: #### 1 [id number] #### [facility] [address] [place], [place] [id number] Outside Sales Executive: Simba Obrien MD Basos % 0.3 % Normal [facility] Comment on above: Performed By: #### 1 [id number] #### [facility] [address] [place] [address] 10483 Outside Sales Executive: Simba Obrien MD Eos Count 0.01 x1000 Normal 0.00-0.50 [facility] Comment on above: Performed By: #### 1 [id number] #### [facility] [address] [place] [address] 37897 Outside Sales Executive: Simba Obrien MD Eosinophils/100 WBC (Bld) 0.2 % Normal [facility] Comment on above: Performed By: #### 1 [id number] #### [facility] [address] [place] [address] 14134 Outside Sales Executive: Simba Obrien MD Lymph Count 1.56 x1000 Normal 1.20-4.80 [facility] Comment on above: Performed By: #### 1 [id number] #### [facility] [address] [place] [address] 04314 Outside Sales Executive: Simba Obrien MD Lymphocytes/100 WBC (Bld) 28.6 % Normal [facility] Comment on above: Performed By: #### 1 [id number] #### [facility] [address] [place] [address] 93128 Outside Sales Executive: Simba Obrien MD [place] Count 0.34 x1000 Normal 0.10-1.00 [facility] Comment on above: Performed By: #### 1 [id number] #### [facility] [address] [place] [address] 27709 Outside Sales Executive: Simba Obrien MD Monocytes/100 WBC (Bld) 6.3 % Normal [facility] Comment on above: Performed By: #### 1 [id number] #### [facility] [address] [place] [address] 82691 Outside Sales Executive: Simba Obrien MD Neutrophil Count (ANC) 3.52 x1000 Normal 1.40-8.80 [facility] Comment on above: Performed By: #### 1 [id number] #### [facility] [address] [place] [address] Outside Sales Executive: Simba Obrien MD Neutrophils/100 WBC (Bld) 64.6 % Normal [facility] Comment on above: Performed By: #### 1 [id number] #### [facility] [address] [place] [address] 96043 Outside Sales Executive: Simba Obrien MD Red Blood Cell Morphology See Notes Abnormal [facility] Comment on above: Result Comment: Anis ocytosis 3+ Poikilocytosis 1+ Teardrop cells 1+ Performed By: #### 1 [id number] #### [facility] [address] [address] Outside Sales Executive: Simba Obrien MD Scan Differential Diff Scd Normal [facility] Comment on above: Result Comment: Slid e reviewed by technologist. Performed By: #### 1 [id number] #### [facility] [address] [place] [address]85 Outside Sales Executive: Simba Obrien MD COMPMETAon 12-06-2024 Albumin [Mass/Vol] 3.0 g/dL Low 3.4-5.0 [facility] Comment on above: Performed By: #### 1 56774, [id number] #### [facility] [address] [place] [address] 45499 Outside Sales Executive: Simba Obrien MD Albumin/Globulin [Mass ratio] 0.9 {ratio} Normal [facility] Comment on above: Performed By: #### 1 86729, 457014 #### [facility] [address] [place] [address] 00492 Outside Sales Executive: Simba Obrien MD Alk Phos 135 unit/L High 45-117 [facility] Comment on above: Performed By: #### 1 77121, 248252 #### [facility] [address] [place] [address] 88562 Outside Sales Executive: Simba Obrien MD Bilirubin [Mass/Vol] 1.30 mg/dL High 0.30-1.20 [facility] Comment on above: Result Comment: Use of this assay is not recommended for patients undergoing treatment with eltrombopag due to the potential for falsely elevated results. Performed By: #### 1 73152, [id number] #### [facility] [address] [place] [address] 30961 Outside Sales Executive: Simba Obrien MD Calcium [Mass/Vol] 8.8 mg/dL Normal 8.7-10.4 [facility] Comment on above: Performed By: #### 1 96795, 144021 #### [facility] [address] [place] [address] 20984 Outside Sales Executive: Simba Obrien MD Chloride [Moles/Vol] 109 mmol/L High 98-107 [facility] Comment on above: Performed By: #### 1 19675, 404591 #### [facility] [address] [place] [address] 36188 Outside Sales Executive: Smiba Obrien MD CO2 [Moles/Vol] 23.0 mmol/L Normal 20.0-31.0 [facility] Comment on above: Performed By: #### 1 34337, 486271 #### [facility] [address] [place] [address] 80238 Outside Sales Executive: Simba Obrien MD Creatinine [Mass/Vol] 2.1 mg/dL High 0.6-1.1 [facility] Comment on above: Performed By: #### 1 08197, 091214 #### [facility] [address] [place] [address] 98426 Outside Sales Executive: Simba Obrien MD GFR AA 37 [facility] Comment on above: Result Comment: Afri can Afghan GFR Calc Medical judgement is necessary to [...] MDRD GFR equation Performed By: #### 1 24057, 220553 #### [facility] [address] [place] [address] Outside Sales Executive: Simba Obrien MD Globulin (S) [Mass/Vol] 3.4 g/dL Normal [facility] Comment on above: Performed By: #### 1 97728, 944864 #### [facility] [address] [place] [address] 75914 Outside Sales Executive: Simba Obrien MD Glomerular Filtration Rate 31 mL/min/1.73m? Normal [facility] Comment on above: Result Comment: Non- GFR [...] MDRD GFR equation Performed By: #### 1 40421, 473096 #### [facility] [address] [place] [address] Outside Sales Executive: Simba Obrien MD Glucose [Mass/Vol] 123 mg/dL High 74-106 [facility] Comment on above: Performed By: #### 1 64652, 577713 #### [facility] [address] [place] [address] Outside Sales Executive: Simba Obrien MD GOT 30 unit/L Normal 15-37 [facility] Comment on above: Performed By: #### 1 05196, 786025 #### [facility] [address] [place] [address] 37660 Outside Sales Executive: Simba Obrien MD GPT 9 unit/L Low 10-49 [facility] Comment on above: Performed By: #### 1 01144, 869403 #### [facility] [address] [place] [address] 34496 Outside Sales Executive: Simba Obrien MD Osmolality [Osmolality] 296 mosm/kg High 275-295 [facility] Comment on above: Performed By: #### 1 40687, 848197 #### [facility] [address] [place] [address] 14119 Outside Sales Executive: Simba Obrien MD Potassium [Moles/Vol] 5.0 mmol/L Normal 3.5-5.1 [facility] Comment on above: Performed By: #### 1 41670, 793638 #### [facility] [address] [place] [address] 33222 Outside Sales Executive: Simba Obrien MD Protein [Mass/Vol] 6.4 g/dL Normal 5.7-8.2 [facility] Comment on above: Result Comment: Tota l Protein results may be increased in patients receiving dextran as a blood volume gas golf cart repairer Performed By: #### 1 54925, 742510 #### [facility] [address] [place] [address] 96199 Outside Sales Executive: Simba Obrien MD Sodium [Moles/Vol] 143 mmol/L Normal 135-145 [facility] Comment on above: Performed By: #### 1 29176, 785592 #### [facility] [address] [place] [address] 70318 Outside Sales Executive: Simba Obrien MD Urea nitrogen [Mass/Vol] 40 mg/dL High 9-23 [facility] Comment on above: Result Comment: - Ve nipuncture should occur prior to N-Acetyl Cysteine (NAC) or Metamizole (Sulpyrine) administration due to the potential for falsely depressed results. - Blood samples from some patients with monoclonal gammopathies may produce falsely elevated results Performed By: #### 1 78346, 427530 #### [facility] [address] [place], [place] [id number] Outside Sales Executive: Simba Obrien MD Urea nitrogen/Creatinine [Mass ratio] 19.0 mg/mg Normal [facility] Comment on above: Performed By: #### 1 82273, 433847 #### [facility] [address] [place] [address] Outside Sales Executive: Simba Obrien MD CRP QUANTon 12-06-2024 C-Reactive Protein, Quantitative 5.8 mg/dL High 0.0-0.5 [facility] Comment on above: Result Comment: ?- C RP testing for cardiovascular risk assessment should not be performed while there is an indication of active infection, systemic inflammation, or trauma. Performed By: #### 5 [id number] #### [facility] [address] [place] [address] Outside Sales Executive: Simba Obrien MD CT ABD PELVIS WO [...] Michelle Ward MD 12/06/2024 08:57 PM EDT RP Technologist: SLAVA,VENITA, Dictated By: MICHELLE WARD MD Signed By: MICHELLE WARD MD Signed Out: 12/06/24 20:57:10 Normal [facility] DATon 12-06-2024 ALIX Polyspecific Interp Positive [facility] Comment on above: Performed By: #### 5 [id number] #### [facility] [address] [place], [place] [id number] Outside Sales Executive: Simba Obrien MD VS ALIX Poly 3+ Normal [facility] Comment on above: Performed By: #### 5 [id number] #### [facility] [address] [place] [address] [id number] Outside Sales Executive: Simba Obrien MD ALIX EXP IGGon 12-06-2024 ALIX IgG Interp Positive Normal [facility] Comment on above: Performed By: #### 5 [id number] #### [facility] [address] [place] [address] 44130 Outside Sales Executive: Simba Obrien MD HEMOon 12-06-2024 DIFF? No Normal [facility] Comment on above: Performed By: #### 1 30493, 046380 #### [facility] [address] [place] [address] 32360 Outside Sales Executive: Simba Obrien MD HEM PATH REVIEW See Diff Review Interp Normal [facility] Comment on above: Performed By: #### 1 01139, 869421 #### [facility] [address] [place] [address] 27321 Outside Sales Executive: Simba Obrien MD Nucleated RBC 0 /100WBC Normal [facility] Comment on above: Performed By: #### 1 36273, 140153 #### [facility] [address] [place] [address] 55857 Outside Sales Executive: Simba Obrien MD DxH Actions See Notes Abnormal [facility] Comment on above: Result Comment: SNV Performed By: #### 1 89494, 658488 #### [facility] [place] [phone] Outside Sales Executive: Simba Obrien MD Erythrocyte distribution width (RBC) [Ratio] 21.1 % High 11.5-14.5 [facility] Comment on above: Performed By: #### 1 08545, 691697 #### [facility] [address] [place], [place] [address] Outside Sales Executive: Simba Obrien MD Hematocrit (Bld) [Volume fraction] 20.5 % Critically abnormal 41.0-52.0 [facility] Comment on above: Performed By: #### 1 02148, 460463 #### [facility] [address] [place], [place] [address] Outside Sales Executive: Simba Obrien MD Hemoglobin (Bld) [Mass/Vol] 6.6 g/dL Critically abnormal 13.5-17.5 [facility] Comment on above: Result Comment: Rech ecked and called critical H&H to RS in ER 12/06/2024 20:02:50 EDT by ah...rbr Performed By: #### 1 76320, 308271 #### [facility] [address] [place], [place] [address] Outside Sales Executive: Simba Obrien MD Instr WBC 5.4 Normal [facility] Comment on above: Performed By: #### 1 51479, 567245 #### [facility] [address] [place] [address] 10591 Outside Sales Executive: Simba Obrien MD MCH (RBC) [Entitic mass] 28.9 pg Normal 27.0-34.0 [facility] Comment on above: Performed By: #### 1 22278, 391172 #### [facility] [address] [place], [place] [address] Outside Sales Executive: Simba Obrien MD MCHC (RBC) [Mass/Vol] 32.1 g/dL Normal 32.0-37.0 [facility] Comment on above: Performed By: #### 1 05346, 200020 #### [facility] [address] [place], [place] [address] Outside Sales Executive: Simba Obrien MD MCV (RBC) [Entitic vol] 90.0 fL Normal 80.0-100.0 [facility] Comment on above: Performed By: #### 1 22882, 134414 #### [facility] [address] [place], [place] [address] Outside Sales Executive: Simba Obrien MD MDW 23.03 High 13.98-20.0 0 [facility] Comment on above: Result Comment: MDW Interpretation: [...] risk of Sepsis. Performed By: #### 1 82923, 888166 #### [facility] [address] [place] [address] 03177 Outside Sales Executive: Simba Obrien MD Platelet 286 x10 Normal 150-450 [facility] Comment on above: Performed By: #### 1 79070, 324069 #### [facility] [address] [place] [address] 87637 Outside Sales Executive: Simba Obrien MD Platelet mean volume (Bld) [Entitic vol] 6.7 fL Low 7.4-10.4 [facility] Comment on above: Performed By: #### 1 32693, 421262 #### [facility] [address] [place] [address] 37545 Outside Sales Executive: Simba Obrien MD RBC 2.27 x10 Low 4.70-6.10 [facility] Comment on above: Result Comment: Note : RBC morphology is normal unless otherwise stated. Evaluation performed only if differential is requested. Performed By: #### 1 72516, 205747 #### [facility] [address] [place] [address] 13441 Outside Sales Executive: Simba Obrien MD WBC 5.4 x10 Normal 4.5-11.0 [facility] Comment on above: Performed By: #### 1 72598, 778232 #### [facility] [address] [place] [address] 43190 Outside Sales Executive: Simba Obrien MD IRON GROUPon 12-06-2024 Iron [Mass/Vol] 40 ug/dL Low 65-175 [facility] Comment on above: Result Comment: Resu lts may be inaccurate if performed within 14 days of IV iron dextran administration. Performed By: #### 1 58276, 399023, 793480 #### [facility] [address] [place] [address] 46877 Outside Sales Executive: Simba Obrien MD Saturation 14.1 % Low 20.0-50.0 [facility] Comment on above: Performed By: #### 1 41547, 994469, 977431 #### [facility] [address] [place] [address] 50932 Outside Sales Executive: Simba Obrien MD TIBC 283 ug/ml Normal 250-425 [facility] Comment on above: Result Comment: Resu lts may be inaccurate if performed within 14 days of IV iron dextran administration. Performed By: #### 1 06842, 795054, 689849 #### [facility] [address] [place] [address] 76826 Outside Sales Executive: Simba Obrine MD LACTATEon 12-06-2024 Lactate [Moles/Vol] 0.8 mmol/L Normal 0.5-2.2 [facility] Comment on above: Result Comment: Britney puncture should occur prior to N-Acetyl Cysteine (NAC) administration due to the potential for falsely depressed results Performed By: #### 1 95283, 526478, 936532 #### [facility] [address] [place] [address] 57780 Outside Sales Executive: Simba Obrien MD LIPon 12-06-2024 Lipase [Catalytic activity/Vol] 31 U/L Normal 12-53 [facility] Comment on above: Performed By: #### 1 19306, 883122 #### [facility] [address] [place] [address] 51135 Outside Sales Executive: Simba Obrien MD MG LEVELon 12-06-2024 Magnesium [Mass/Vol] 2.5 mg/dL Normal 1.6-2.6 [facility] Comment on above: Performed By: #### 1 [id number] #### [facility] [address] [place] [address] 60174 Outside Sales Executive: Simba Obrien MD PCTon 12-06-2024 Procalcitonin 0.62 ng/mL Normal [facility] Comment on above: Result Comment: INTE RP [...] or septic shock. Performed By: #### 1 03101, 450612, 243338 #### [facility] [address] [place] [address] 51083 Outside Sales Executive: Simba Obrien MD PT INRon 12-06-2024 INR Coag (PPP) [Relative time] 1.1 {INR} Normal [facility] Comment on above: Result Comment: INR Reference Range: Normal reference range for INR on patients not on anticoagulant therapy: 0.9-1.1 General therapeutic range for patients on anticoagulant therapy: 2.0-3.5 Performed By: #### 1 [id number] #### [facility] [address] [place] [address] 40559 Outside Sales Executive: Simba Obrien MD Protime Patient 12.1 seconds Normal 9.8-12.4 [facility] Comment on above: Performed By: #### 1 [id number] #### [facility] [address] [place] [address] 44130 Outside Sales Executive: Simba Obrien MD SED RATEon 12-06-2024 Sed Rate Westergren >145 High 0-20 [facility] Comment on above: Performed By: #### 5 [id number] #### [facility] [address] [place] [address] 72246 Outside Sales Executive: Simba Obrien MD THY GPon 12-06-2024 Free T4 [Mass/Vol] 1.55 ng/dL Normal 0.89-1.76 [facility] Comment on above: Result Comment: - Th e anticonvulsant drug phenytoin may interfere with total and free T4 levels due to competition for TBG binding sites - Free T4 values may be decreased in patients with non-thyroidal conditions and in patients taking carbamazepine Performed By: #### 5 [id number] #### [facility] [address] [place] [address] 51274 Outside Sales Executive: Simba Obrien MD TSH Qn 1.02 m[IU]/L Normal 0.55-4.78 [facility] Comment on above: Result Comment: - Do [...] Reference: [email or web address] (03/2023) Performed By: #### 5 [id number] #### [facility] [address] [place] [address] 85782 Outside Sales Executive: Simba Obrien MD TROPONIN HS 0HRon 12-06-2024 Troponin HS 0 Hr 6 pg/mL Normal 3-53 [facility] Comment on above: Result Comment: Spec imens from some individuals with pathologically high gamma globulin levels may demonstrate depressed troponin values Performed By: #### 1 [id number] #### [facility] [address] [place] [address] 66518 Outside Sales Executive: Simba Obrien MD TROPONIN HS 2HRon 12-06-2024 Delta Troponin 2 Hr 0 pg/mL Normal 0-14 [facility] Comment on above: Result Comment: The term acute myocardial infarction should be used when there is acute myocardial injury with clinical evidence of acute myocardial ischemia and the rise or fall of serial Troponin HS values (delta troponin) greater than or equal to 15 pg/mL with at least one Troponin HS value above the 99th percentile reference range Performed By: #### 1 39790, 384404, 794658 #### [facility] [address] [place] [address] Outside Sales Executive: Simba Obrien MD Troponin HS 2 Hr 6 pg/mL Normal 3-53 [facility] Comment on above: Result Comment: Spec imens from some individuals with pathologically high gamma globulin levels may demonstrate depressed troponin values Performed By: #### 1 58810, 574207, 385814 #### [facility] [address] [place] [address] 40526 Outside Sales Executive: Simba Obrien MD UAon 12-06-2024 U MICRO Indicated Normal [facility] Comment on above: Performed By: #### 1 23549, 964047, 237760 #### [facility] [address] [place] [address] Outside Sales Executive: Simba Obrien MD Appearance, U Clear Normal Clear [facility] Comment on above: Performed By: #### 1 22977, 276701, 323551 #### [facility] [address] [place] [address] 10308 Outside Sales Executive: Simba Obrien MD Bacteria, U Few Normal [facility] Comment on above: Performed By: #### 1 27777, 649795, 767413 #### [facility] [id number] [place] [address] 74278 Outside Sales Executive: Simba Obrien MD Bilirubin, U Negative Normal Negative [facility] Comment on above: Result Comment: Bili clemons, U: Initial positive urine bilirubin results are not confirmed. Interfering substances may include elevated urobilinogen. Trace = 0.5-1.0 mg/dL Small = 2.0-4.0 mg/dL Moderate = 6.0-8.0 mg/dL Large = 10 mg/dl and greater Performed By: #### 1 04214, 772643, 832826 #### [facility] [address] [place] [address] 56101 Outside Sales Executive: Simba Obrien MD Blood, U Negative Normal Negative [facility] Comment on above: Result Comment: Bloo d, U: Trace = 0.03-0.05 mg/dL Small = 0.06-0.1 mg/dL Moderate = 0.2-0.5 mg/dL Large = 1.0 mg/dL and greater Performed By: #### 1 77217, 017812, 834866 #### [facility] [address] [place] [address] 72206 Outside Sales Executive: Simba Obrien MD Color, U Yellow Normal Yellow [facility] Comment on above: Performed By: #### 1 , 615936, 224352 #### [facility] [address] [place] [address] 17914 Outside Sales Executive: Simba Obrien MD Glucose Qual, U Negative Normal Negative [facility] Comment on above: Performed By: #### 1 , 273376, 643930 #### [facility] [address] [place] [address] 60818 Outside Sales Executive: Simba Obrien MD Ketones, U Negative Normal Negative [facility] Comment on above: Performed By: #### 1 , 974306, 895197 #### [facility] [address] [place] [address] 44126 Outside Sales Executive: Simba Obrien MD Leukocyte Esterase, U Negative Normal Negative [facility] Comment on above: Result Comment: Leuk ocyte Esterase, U: Trace = 25 Joel/uL Small = 75 Joel/uL Moderate = 250 Joel/uL Large = 500 Joel/uL and greater Performed By: #### 1 71975, 932718, 296377 #### [facility] [address] [place] [address] 67186 Outside Sales Executive: Simba Obrien MD Mucous, U Occasional Normal [facility] Comment on above: Performed By: #### 1 70446, 859825, 312756 #### [facility] [address] [place] [address] 92157 Outside Sales Executive: Simba Obrien MD Nitrite, U Negative Normal Negative [facility] Comment on above: Performed By: #### 1 , 921938, 144127 #### [facility] [address] [place] [address] 97116 Outside Sales Executive: Simba Obrien MD pH, U 6.0 Normal 4.5-8.0 [facility] Comment on above: Performed By: #### 1 , 439794, 618795 #### [facility] [address] [place] [address] 27360 Outside Sales Executive: Simba Obrien MD Protein, U 70 mg/dl Abnormal Negative [facility] Comment on above: Performed By: #### 1 , 512528, 496076 #### [facility] [address] [place] [address] 38068 Outside Sales Executive: Simba Obrien MD RBC/HPF, U 3 #/HPF Normal 0-3 [facility] Comment on above: Performed By: #### 1 , 090408, 720394 #### [facility] [address] [place] [address] 42785 Outside Sales Executive: Simba Obrien MD Specific Craig, U 1.024 Normal 1.001-1. 03 5 [facility] Comment on above: Performed By: #### 1 , 992631, 497303 #### [facility] [address] [place] [address] 93175 Outside Sales Executive: Simba Obrien MD Squamous Epithelial Cells, U <1 Normal [facility] Comment on above: Performed By: #### 1 , 965821, 249467 #### [facility] [address] [place] [address] Outside Sales Executive: Simba Obrien MD Urobilinogen Qual, U 2 mg/dl Abnormal < 2 mg/dl [facility] Comment on above: Result Comment: Urob ilinogen, U: EU/dl and mg/dl are equivalent units. Performed By: #### 1 83917, 328124, 084507 #### [facility] [address] [place] [address] Outside Sales Executive: Simba Obrien MD WBC/HPF, U 3 #/HPF Normal 0-5 [facility] Comment on above: Performed By: #### 1 77761, 655525, 859065 #### [facility] [address] [place], [place] 1807230 Outside Sales Executive: Simba Obrien MD CNOVon 11-26-2024 CNOV Normal [facility] CNPNon 11-26-2024 CNPN Normal [facility] HEMOGLOBIN A1C (POC)on 11-26 HbA1c (Bld) [Mass fraction] 5.4 % 4.3 - 5.6 % [facility] Comment on above: Location:[facility], [address] [place] [address], [address] Point of care (POC) Hemoglobin A1c (HGBA1C) [...] specific diabetes management situations: The POC device bar back provides a normal range of 4.2% to 6.5% for the HGBA1C POC test. However, the [place] [employer] guidelines indicate that patients with [...] anemia) that alter red blood cell lifespan. [facility] CNPTOUTREACHon 11-06-2024 CNPTOUTREACH Normal [facility] C BLOODon 10-31-2024 C BLOOD [facility] pt of Laboratory Services [address] [place] [phone] Name: TERE BARONE : 1950 Admitting Provider: Gender Male Financial [id number] : Number: Kin NGUYEN; HB B; 1 n: Admit 10/26/2024 Date: [...] BARONE Print 10/31/2024 19:00 EDT Date/Time: Normal [facility] Comment on above: Performed By: #### 1 57287, 288677, 510902 #### [facility] [address] [place] [address] 44130 Outside Sales Executive: Simba Obrien MD C BLOOD [facility] pt of Laboratory Services [address] [place] [phone] Name: TERE BARONE : 1950 Admitting Provider: Gender Male Financial [id number] : Number: Kin NGUYEN; HB B; 1 n: Admit 10/26/2024 Date: [...] BARONE Print 10/31/2024 19:00 EDT Date/Time: Normal [facility] Comment on above: Performed By: #### 1 92652, 376782, 584696 #### [facility] [address] [place] [address] 44130 Outside Sales Executive: Simba Obrien MD CNPNon 10-30-2024 C[facility]N [facility] COMPMETAon 10-26-2024 Albumin [Mass/Vol] 3.4 g/dL Normal 3.4-5.0 [facility] Comment on above: Performed By: #### 1 , 150555, 661024 #### [facility] [address] [place] [address] 50993 Outside Sales Executive: Simba Obrien MD Albumin/Globulin [Mass ratio] 0.9 {ratio} Normal [facility] Comment on above: Performed By: #### 1 , 142163, 084368 #### [facility] [address] [place] [address] 95114 Outside Sales Executive: Simba Obrien MD Alk Phos 116 unit/L Normal 45-117 [facility] Comment on above: Performed By: #### 1 , 713110, 889468 #### [facility] [address] [place] [address] 56711 Outside Sales Executive: Simba Obrien MD Bilirubin [Mass/Vol] 0.70 mg/dL Normal 0.30-1.20 [facility] Comment on above: Result Comment: Use of this assay is not recommended for patients undergoing treatment with eltrombopag due to the potential for falsely elevated results. Performed By: #### 1 , 326968, 239909 #### [facility] [address] [place] [address] 69722 Outside Sales Executive: Simba Obrien MD Calcium [Mass/Vol] 9.5 mg/dL Normal 8.7-10.4 [facility] Comment on above: Performed By: #### 1 , 013934, [id number] #### [facility] [address] [place] [address] 34636 Outside Sales Executive: Simba Obrien MD Chloride [Moles/Vol] 109 mmol/L High 98-107 [facility] Comment on above: Performed By: #### 1 , 135966, 080074 #### [facility] [address] [place] [address] 82403 Outside Sales Executive: Simba Obrien MD CO2 [Moles/Vol] 23.0 mmol/L Normal 20.0-31.0 [facility] Comment on above: Performed By: #### 1 54565, 203993, 761743 #### [facility] [address] [place] [address] Outside Sales Executive: Simba Obrien MD Creatinine [Mass/Vol] 1.3 mg/dL High 0.6-1.1 [facility] Comment on above: Performed By: #### 1 61851, 896924, 543831 #### [facility] [address] [place] [address] 86174 Outside Sales Executive: Simba Obrien MD GFR AA >60 Normal [facility] Comment on above: Result Comment: Afri can Afghan GFR Calc Medical judgement is necessary to [...] MDRD GFR equation Performed By: #### 1 34607, 569438, 102633 #### [facility] [address] [place] [address] 35683 Outside Sales Executive: Simba Obrien MD Globulin (S) [Mass/Vol] 3.7 g/dL Normal [facility] Comment on above: Performed By: #### 1 75390, 977464, 248804 #### [facility] [address] [place] [address] 08244 Outside Sales Executive: Simba Obrien MD Glomerular Filtration Rate 54 mL/min/1.73m? Normal [facility] Comment on above: Result Comment: Non- GFR [...] MDRD GFR equation Performed By: #### 1 18600, 562953, 848158 #### [facility] [id number] [place] [address] 35922 Outside Sales Executive: Simba Obrien MD Glucose [Mass/Vol] 199 mg/dL High 74-106 [facility] Comment on above: Performed By: #### 1 64486, 762685, 744178 #### [facility] [address] [place] [address] 96725 Outside Sales Executive: Simba Obrien MD GOT 31 unit/L Normal 15-37 [facility] Comment on above: Performed By: #### 1 , 298687, 266594 #### [facility] [address] [place] [address] 16301 Outside Sales Executive: Simba Obrien MD GPT 18 unit/L Normal 10-49 [facility] Comment on above: Performed By: #### 1 , 027461, 071078 #### [facility] [address] [place] [address] 32733 Outside Sales Executive: Simba Obrien MD Osmolality [Osmolality] 297 mosm/kg High 275-295 [facility] Comment on above: Performed By: #### 1 56429, 099570, 017357 #### [facility] [address] [place] [address] 19663 Outside Sales Executive: Simba Obrien MD Potassium [Moles/Vol] 4.4 mmol/L Normal 3.5-5.1 [facility] Comment on above: Performed By: #### 1 10942, 159168, 447680 #### [facility] [address] [place] [address] 69410 Outside Sales Executive: Simba Obrien MD Protein [Mass/Vol] 7.1 g/dL Normal 5.7-8.2 [facility] Comment on above: Result Comment: Tota l Protein results may be increased in patients receiving dextran as a blood volume gas golf cart repairer Performed By: #### 1 43797, 707796, 016737 #### [facility] [address] [place] [address] Outside Sales Executive: Simba Obrien MD Sodium [Moles/Vol] 143 mmol/L Normal 135-145 [facility] Comment on above: Performed By: #### 1 73019, 687496, 927684 #### [facility] [address] [place] [address] 86284 Outside Sales Executive: Simba Obrien MD Urea nitrogen [Mass/Vol] 31 mg/dL High 9-23 [facility] Comment on above: Result Comment: - Ve nipuncture should occur prior to N-Acetyl Cysteine (NAC) or Metamizole (Sulpyrine) administration due to the potential for falsely depressed results. - Blood samples from some patients with monoclonal gammopathies may produce falsely elevated results Performed By: #### 1 55152, 637687, 119392 #### [facility] [address] [place] [address] 01657 Outside Sales Executive: Simba Obrien MD Urea nitrogen/Creatinine [Mass ratio] 23.8 mg/mg Normal [facility] Comment on above: Performed By: #### 1 78798, 387270, 059461 #### [facility] [address] [place] [address] 88767 Outside Sales Executive: Simba Obiren MD COVID-19 Molecular SWEDon SARS-CoV-2 (COVID-19) RNA JOSE+probe Ql (Unsp spec) Negative Normal Negative [facility] Comment on above: Result Comment: This assay [...] diagnosis. This testing was performed in the [facility] laboratory located at [facility] [address]] Performed By: #### 1 80023, 284848, 687809 #### [facility] [address] [id number] Outside Sales Executive: Simba Obrien MD ED Discharge Educationon ED [...] Where can you learn more? Go to [email or web address]/ patientEd Enter H591 in the search box to learn more about Nausea and Vomiting: Care Instructions. Current as of: August 17, 2021 Content Version: 13.3 ? [employer]. Care instructions adapted under license by your healthcare professional. If you have questions about a medical condition or this instruction, always ask your healthcare professional. [employer] disclaims any warranty or liability for your use of this information. Normal [facility] ED Patient Summaryon 025 ED Patient Summary [facility] Emergency Department Discharge Instructions [address] [place] [address] (Patient Copy) Name: SHAINAELISABETH TERE : 1950 Allergies: No Known Medication Allergies Diagnosis: Moderate nausea Visit Date: 10/26/2024 10:06:10 [facility]#: [id number] Current Date Time: 10/26/2024 13:17:20 Address: [address] [place] [address] [place] [address] Phone: [phone] Primary Care Provider: Name: YAMINI, SAMM Emergency Department Care Providers: Primary Physician: KEVAN VALVERDE MD Thank you for choosing [facility] for your emergency care. You are very important to us. Our goal is to demonstrate our high quality medical care, and provide you with a very good patient experience. You may receive a survey about our service. Please take the time to complete the survey and return it so we can continue to enhance our service. Thank you again for allowing the [facility] to care for your medical needs. If you have questions about your care or follow up information please contact us at [phone]. Follow-Up Instructions TERE BARONE has been given these follow-up instructions: With: Address: When: SAMM [address] NOT ON STAFF [address] [place], [place] [id number] Business (1) Within 3 to 5 days [...] Where can you learn more? Go to [email or web address]/ patientEd Enter H591 in the search box to learn more about Nausea and Vomiting: Care Instructions. Current as of: August 17, 2021 Content Version: 13.3 ? [employer]. Care instructions adapted under license by your healthcare professional. If you have questions about a medical condition or this instruction, always ask your healthcare professional. [employer] disclaims any warranty or liability for your use of this information. BEFORE YOU LEAVE Set up your [facility] account! [employer] is a secure, online health management tool that connects you to portions of your hospital-based electronic medical record, allowing you to see test results, manage appointments, access discharge care instructions and much more. You can access [employer] from a computer, tablet or smartphone. Enrollment/registration is required. If you do not have a [employer] account, please provide us with an email address before you l (more content not included)... Normal [facility] ED Physician Reporton 2024 ED Physician Report [...] the EKG normal sinus rhythm 79 bpm DE interval 180 ms QRS 102 ms QT [...] ON STAFF Within 3 to 5 days [id number] [id number] WHILL (1) Additional Instructions: Return to ED if worse or any concerns Assessment This Visit Diagnosis Moderate nausea R11.0 Orders: ondansetron(ondansetron 4 mg oral tablet, disintegrating = Zofran), 4 mg= 1 tabs, ORAL, [id number], PRN C BLOOD(Blood Cultures SINGLE SET), STAT, 10/26/2024 11:01:00 EDT, Specimen type: Blood, Lab to Collect C BLOOD(Blood Cultures SINGLE SET), STAT, 10/26/2024 11:01:00 EDT, Specimen type: Blood, Separate Collection, Lab to Collect COVID-19 Molecular SWED, STAT, Jeferson PEPE, Yuli, 10/26/2024 12:16:00 EDT, Specimen type: INSTALLER MOLDING AND TRIM Swab ED Discharge to Home, 10/26/2024 13:41:00 [...] extended release (more content not included)... Normal [facility] HEMOon 10-26-2024 Special Notes Albumin slide Normal [facility] Comment on above: Performed By: #### 1 54990, 426845, 464458 #### [facility] [address] [place] [address] 41376 Outside Sales Executive: Simba Obrien MD Nucleated RBC 0 /100WBC Normal [facility] Comment on above: Performed By: #### 1 , 967505, 601695 #### [facility] [address] [place] [address] 80385 Outside Sales Executive: Simba Obrien MD DIFF? Yes Normal [facility] Comment on above: Performed By: #### 1 , 643067, 359360 #### [facility] [address] [place] [address] 04037 Outside Sales Executive: Simba Obrien MD [facility] Actions See Notes Abnormal [facility] Comment on above: Result Comment: Scan for RBC Morphology Scan Slide. Perform manual diff if needed. SNV Performed By: #### 1 , 075664, 981446 #### [facility] [address] [place] [address] 87575 Outside Sales Executive: Simba Obrien MD Erythrocyte distribution width (RBC) [Ratio] 18.5 % High 11.5-14.5 [facility] Comment on above: Performed By: #### 1 98891, 197782, 743554 #### [facility] [address] [place] [address] 60538 Outside Sales Executive: Simba Obrien MD Hematocrit (Bld) [Volume fraction] 24.5 % Low 41.0-52.0 [facility] Comment on above: Performed By: #### 1 , 764752, 952291 #### [facility] [address] [place] [address] Outside Sales Executive: Simba Obrien MD Hemoglobin (Bld) [Mass/Vol] 8.0 g/dL Low 13.5-17.5 [facility] Comment on above: Performed By: #### 1 15611, 532324, 765019 #### [facility] [address] [place] [address] 28482 Outside Sales Executive: Simba Obrien MD Instr WBC 5.8 Normal [facility] Comment on above: Performed By: #### 1 , 438128, 605748 #### [facility] [address] [place] [address] 37049 Outside Sales Executive: Simba Obrien MD MCH (RBC) [Entitic mass] 27.8 pg Normal 27.0-34.0 [facility] Comment on above: Performed By: #### 1 , 847636, 285207 #### [facility] [address] [place] [address] 75283 Outside Sales Executive: Simba Obrien MD MCHC (RBC) [Mass/Vol] 32.5 g/dL Normal 32.0-37.0 [facility] Comment on above: Performed By: #### 1 , 214918, 789560 #### [facility] [address] [place] [address] 43112 Outside Sales Executive: Simba Obrien MD MCV (RBC) [Entitic vol] 85.7 fL Normal 80.0-100.0 [facility] Comment on above: Performed By: #### 1 , 871906, 346704 #### [facility] [address] [place] [address] 73695 Outside Sales Executive: Simba Obrien MD MDW 23.64 High 13.98-20.0 0 [facility] Comment on above: Result Comment: PAT Interpretation: - For adults age 18-89 in [...] risk of Sepsis. Performed By: #### 1 40214, 906496, 365963 #### [facility] [address] [place] [address] 75092 Outside Sales Executive: Simba Obrien MD Platelet 215 x10 Normal 150-450 [facility] Comment on above: Performed By: #### 1 51562, 609874, 193877 #### [facility] [address] [place] [address] 60644 Outside Sales Executive: Simba Obrien MD Platelet mean volume (Bld) [Entitic vol] 6.5 fL Low 7.4-10.4 [facility] Comment on above: Performed By: #### 1 74051, 223101, 402861 #### [facility] [address] [place] [address] 10618 Outside Sales Executive: Simba Obrien MD RBC 2.86 x10 Low 4.70-6.10 [facility] Comment on above: Result Comment: Note : RBC morphology is normal unless otherwise stated. Evaluation performed only if differential is requested. Performed By: #### 1 90322, 275151, 198764 #### [facility] [address] [place] [address] 12001 Outside Sales Executive: Simba Obrien MD WBC 5.8 x10 Normal 4.5-11.0 [facility] Comment on above: Performed By: #### 1 74716, 997153, 816670 #### [facility] [address] [place] [address] 54084 Outside Sales Executive: Simba Obrien MD LACTATEon 10-26-2024 Lactate [Moles/Vol] 1.6 mmol/L Normal 0.5-2.2 [facility] Comment on above: Result Comment: Britney puncture should occur prior to N-Acetyl Cysteine (NAC) administration due to the potential for falsely depressed results Performed By: #### 1 10534, 732010, 541281 #### [facility] [address] [place], [place] [address] Outside Sales Executive: Simba Obrien MD LIPon 10-26-2024 Lipase [Catalytic activity/Vol] 33 U/L Normal 12-53 [facility] Comment on above: Performed By: #### 1 21130, 201212, 899070 #### [facility] [address] [place], [place] [address] Outside Sales Executive: Simba Obrien MD MAN DIFFon 10-26-[address] 0.00 x1000 Normal 0.00-0.70 [facility] Comment on above: Performed By: #### 1 48272, 030496, 444446 #### [facility] [address] [place], [place] [address] Outside Sales Executive: Simba Obrien MD Absolute Baso Ct 0.06 x1000 Normal 0.00-0.20 [facility] Comment on above: Performed By: #### 1 91853, 592216, 662567 #### [facility] [address] [place], [place] [address] Outside Sales Executive: Simba Obrien MD Absolute Lymph Ct 2.09 x1000 Normal 1.20-4.80 [facility] Comment on above: Performed By: #### 1 24412, 013864, 754704 #### [facility] [address] [place], [place] [address] Outside Sales Executive: Simba Obrien MD Absolute [address] 0.12 x1000 Normal 0.10-1.00 [facility] Comment on above: Performed By: #### 1 08642, 317802, 544245 #### [facility] [address] [place] [address] Outside Sales Executive: Simba Obrien MD Absolute Neutrophil Ct 3.54 x1000 Normal 1.40-8.80 [facility] Comment on above: Performed By: #### 1 37218, 597363, 667765 #### [facility] [address] [place] [address] Outside Sales Executive: Simba Obrien MD Absolute Seg Ct 3.54 x1000 Normal 1.40-8.80 [facility] Comment on above: Performed By: #### 1 80545, 177664, 513654 #### [facility] [address] [place] [address] 39537 Outside Sales Executive: Simba Obrien MD Anisocytosis Ql (Bld) 2+ Normal [facility] Comment on above: Performed By: #### 1 83880, 889353, 143944 #### [facility] [address] [place] [address] 39038 Outside Sales Executive: Simba Obrien MD Atypical Lymphs 38 % High 0-5 [facility] Comment on above: Performed By: #### 1 48624, 191991, 290270 #### [facility] [address] [place] [address] 29534 Outside Sales Executive: Simba Obrien MD Band form neutrophils/100 WBC (Bld) 0 % Normal [facility] Comment on above: Performed By: #### 1 54692, 358196, 391629 #### [facility] [address] [place] [address] 41085 Outside Sales Executive: Simba Obrien MD Basophils/100 WBC (Bld) 1 % Normal [facility] Comment on above: Performed By: #### 1 97342, 963039, 747904 #### [facility] [address] [place] [address] 93777 Outside Sales Executive: Simba Obrien MD Lymphocytes/100 WBC (Bld) 36 % Normal [facility] Comment on above: Performed By: #### 1 56302, 906728, 849493 #### [facility] [address] [place] [address] Outside Sales Executive: Simba Obrien MD Monocytes/100 WBC (Bld) 2 % Normal [facility] Comment on above: Performed By: #### 1 36330, 104147, 273530 #### [facility] [address] [place] [address] 48998 Outside Sales Executive: Simba Obrien MD Ovalocytes 1+ Normal [facility] Comment on above: Performed By: #### 1 95490, 851743, 075916 #### [facility] [address] [place] [address] 41161 Outside Sales Executive: Simba Obrien MD Polychromasia Present Normal [facility] Comment on above: Performed By: #### 1 , 247966, 141899 #### [facility] [address] [place] [address] 83841 Outside Sales Executive: Simba Obrien MD Segmented neutrophils/100 WBC (Bld) 61 % Normal [facility] Comment on above: Performed By: #### 1 73729, 067912, 069110 #### [facility] [address] [place] [address] 58821 Outside Sales Executive: Simba Obrien MD POC Glucoseon 10-26-2024 Glucose [Mass/Vol] 220 mg/dL High 72-100 [facility] Comment on above: Performed By: #### 1 [id number] #### [facility] [address] [place] [address] 89262 Outside Sales Executive: Simba Obrien MD TROPONIN HS 0HRon 10-26-2024 Troponin HS 0 Hr 4 pg/mL Normal 3-53 [facility] Comment on above: Result Comment: Spec imens from some individuals with pathologically high gamma globulin levels may demonstrate depressed troponin values Performed By: #### 1 96772, 094819, 845452 #### [facility] [address] [place] [address] Outside Sales Executive: Simba Obrien MD TROPONIN HS 2HRon 10-26-2024 Delta Troponin 2 Hr 0 pg/mL Normal 0-14 [facility] Comment on above: Result Comment: The term acute myocardial infarction should be used when there is acute myocardial injury with clinical evidence of acute myocardial ischemia and the rise or fall of serial Troponin HS values (delta troponin) greater than or equal to 15 pg/mL with at least one Troponin HS value above the 99th percentile reference range Performed By: #### 1 41136, 916833, 027841 #### [facility] [address] [place] [address] Outside Sales Executive: Simba Obrien MD Troponin HS 2 Hr 4 pg/mL Normal 3-53 [facility] Comment on above: Result Comment: Spec imens from some individuals with pathologically high gamma globulin levels may demonstrate depressed troponin values Performed By: #### 1 41960, 346267, 213700 #### [facility] [address] [place] [address] Outside Sales Executive: Simba Obrien MD XR CHEST PORTABLEon 10-27-19 [...] Mahendra Alegria MD 10/26/2024 12:14 PM EDT Technologist: CINDY FAITH Dictated By: MAHENDRA ALEGRIA MD Signed By: MAHENDRA ALEGRIA MD Signed Out: 10/26/24 12:14:38 Normal [facility] HISTORY PHYSICALon HISTORY PHYSICAL Normal [facility] CNOVon 09-11-2024 CNOV Normal [facility] CNOVon 09-10-2024 CNOV Normal [facility] CNPNon 09-01-2024 CNPN Normal [facility] CNPNon 08-29-2024 CNPN Normal [facility] CNPNon 08-19-2024 CNPN Normal [facility] CNOVon 08-05-2024 CNOV Normal [facility] CNPNon 08-05-2024 CNPN Normal [facility] CNOVon 07-08-2024 CNOV Normal [facility] CNPNon 06-02-2024 CNPN Normal [facility] CNPNon 05-30-2024 CNPN Normal [facility] ANES POSTPROC EVALon 024 ANES POSTPROC EVAL Normal [facility] ANES PRE-OPon 05-29-2024 ANES PRE-OP Normal [facility] Colonoscopy Study observatio non 05-29-2024 [facility] Gastrointestinal Endoscopy Patient Name: Tere Barone [...] specimen was done by the nurse and nanotechnology engineering technician using the patient's name, date and [...] loss wa (more content not included)... [employer] Radiology Study observation (narrative) [facility] GLUCOSE, BLOOD (POC)on 05-29 Glucose [Mass/Vol] 123 mg/dL Abnormal 74 - 99 mg/dL [facility] Comment on above: Location:[facility], [address] [place] [address], [place], [place], [facility] The Accu-Chek Inform II glucose meter has [...] Interpretation and review of laboratory results Abnormal [facility] HISTORY PHYSICALon HISTORY PHYSICAL Normal [facility] SURGICAL PATHOLOGYon 024 CASE REPORT Normal [facility] Comment on above: Order Comment: Demarco harris Type: TISSUE SPECIMENOrdering Facility: [facility] Address: [address] [place] [address] Result Comment: Surg [facility] Pathology Report Case: [id number] Provider: Yusra Beltran DO Collected: 05/29/2024 11:21 AMOrdering Location: Ambulatory Surgery Received: 05/29/2024 01:22 PMPathologist: Jovanni Jones MD, PhDSpecimens: A) - Colon, Hepatic Flexure, Polyp B) - Colon, Ascending Polyp C) - Rectum, Polyp Performed By: #### S ####[facility] LABCL[facility] [id number] [place] [address] [place] FINAL DIAGNOSIS Normal [facility] Comment on above: Order Comment: Demarco harris Type: TISSUE SPECIMENOrdering Facility: [facility] Address: [address] [place] [address] Result Comment: A. H epatic flexure polyp, biopsy:-Tubular adenoma.B. Ascending colon polyp, biopsy:-Multiple fragments of tubular adenoma.C. Rectal polyp, biopsy:-Tubulovillous adenoma. Performed By: #### S ####[facility] LABCLIA [id number] [address] [place] FINAL PERFORMING LAB Normal [facility] Comment on above: Order Comment: Speci men Type: TISSUE SPECIMENOrdering Facility: [facility] Address: [address] [place] [address] Result Comment: Diag nostic interpretation performed at [facility], [address] [place] [address] CLIA# [id number] Director: Russ Hollis M.D. Performed By: #### S ####[facility] LABCLIA [id number] [address] GROSS DESCRIPTION Normal [facility] Comment on above: Order Comment: Speci men Type: TISSUE SPECIMENOrdering Facility: [facility] Address: [address] [place] [address] Result Comment: A. C olon, Hepatic Flexure, [...] Totally submitted one cassette.Gross examination performed at [facility], [address] [place] [address] May 29, 2024 5:32 PM Performed By: #### S ####[facility] LABCLIA [id number] [address] [place] CNPTOUTREACHon 05-12-2024 CNPTOUTREACH Normal [facility] CNOVon 05-07-2024 CNOV Normal [facility] ANES POSTPROC EVALon 024 ANES POSTPROC EVAL Normal [facility] ANES PRE-OPon 05-02-2024 ANES PRE-OP Normal [facility] Flexible sigmoidoscopy study on 05-02-2024 [facility] erology Gastrointestinal Endoscopy Patient Name: Tere Barone Procedure Date: 05/02/2024 10:45 AM Date of : 1950 Admit Type: Outpatient Age: 73 Room: [facility] 3 Gender: Male Note Status: Finalized Attending MD: Lesly Bender MD, [id number] Procedure: Colonoscopy Indications: High risk colon cancer [...] clinic PRN. Procedure Code(s): --- Professional --- 23414, 53, Colonoscopy, flexible; diagnostic, including collection of specimen(s) by brushing or washing, when performed (separate procedure) Diagnosis Code(s): --- Professional --- Z12.11, Encounter for (more content not included)... [facility] Radiology Study observation (narrative) [facility] NURSING PROGon 05-02-2024 NURSING PROG Normal [facility] NURSING PROG Normal [facility] CNPNon 04-29-2024 CNPN Normal [facility] ALBUMIN/CREATININE RATIO, UR INEon 04-25-2024 Albumin DL <= 20 mg/L (U) [Mass/Vol] 46.0 mg/L Normal [facility] Comment on above: Order Comment: Speci men Type: URINE SPECIMENOrdering Facility: [facility] Address: [address] [place] [address] Performed By: #### U ACR ####[facility] LABCLIA [id number] [id number], [place] [address] [place] Albumin/Creatinine (U) [Mass ratio] 29 mg/g Normal <30 [facility] Comment on above: Order Comment: Speci men Type: URINE SPECIMENOrdering Facility: [facility] Address: [address] [place] [address] Result Comment: Adul t Male and Female Nephrotic Criteria:<30 mg/g is considered normal to mildly fkndenivi13-624 mg/g is considered moderately increased>300 mg/g is considered severely increasedKDIGO. (2013). KDIGO 2012 Clinical Practice Guideline for the Evaluation and Management of Chronic Kidney Disease. Official Journal of the International Society of Nephrology, 3(1), 1-150. Performed By: #### U ACR ####[facility] LABCLIA [id number] [place] [address] [place] Creatinine (U) [Mass/Vol] 160.5 mg/dL Normal 20.0-300.0 [facility] Comment on above: Order Comment: Speci men Type: URINE SPECIMENOrdering Facility: [facility] Address: [address] [place] [address] Performed By: #### U ACR ####[facility] LABCLIA [id number] [place] [address] [place] CBC panel Auto (Bld)on 04-25 Erythrocyte distribution width (RBC) [Ratio] 13.0 % Normal 11.5-15.0 [facility] Comment on above: Order Comment: Speci men Type: BLOOD SPECIMENOrdering Facility: [facility] Address: [address] [place] [address] Performed By: #### 5 8410-2 ####[facility] LABORATORYCLIA [id number] [place] [address] [place] Hematocrit (Bld) [Volume fraction] 38.1 % Low 39.0-51.0 [facility] Comment on above: Order Comment: Speci men Type: BLOOD SPECIMENOrdering Facility: [facility] Address: [address] [place] [address] Performed By: #### 5 8410-2 ####[facility] LABORATORYCLIA [id number] [place] [address] [place] [facility] Hemoglobin (Bld) [Mass/Vol] 12.3 g/dL Low 13.0-17.0 [facility] Comment on above: Order Comment: Speci men Type: BLOOD SPECIMENOrdering Facility: [facility] Address: [address] [place] [address] Performed By: #### 5 8410-2 ####[facility] LABORATORYIA [id number] [place] [address] [place] MCH (RBC) [Entitic mass] 29.9 pg Normal 26.0-34.0 [facility] Comment on above: Order Comment: Speci men Type: BLOOD SPECIMENOrdering Facility: [facility] Address: [address] [place] [address] Performed By: #### 5 8410-2 ####[facility]PITAL[facility] [id number] [address] [place] [facility] MCHC (RBC) [Mass/Vol] 32.3 g/dL Normal 30.5-36.0 [facility] Comment on above: Order Comment: Speci men Type: BLOOD SPECIMENOrdering Facility: [facility] Address: [address] [place] [address] Performed By: #### 5 8410-2 ####[facility] LABORATORYIA [id number] [address] [place] [facility] MCV (RBC) [Entitic vol] 92.7 fL Normal 80.0-100.0 [facility] Comment on above: Order Comment: Speci men Type: BLOOD SPECIMENOrdering Facility: [facility] Address: [address] [place] [address] Performed By: #### 5 8410-2 ####[facility] LABORATORYIA [id number] [place] [address] [place] Nucleated RBC (Bld) [#/Vol] 10*3/uL Normal <0.01 [facility] Comment on above: Order Comment: Speci men Type: BLOOD SPECIMENOrdering Facility: [facility] Address: [address] [place] [address] Performed By: #### 5 8410-2 ####[facility] LABORATORYCLIA [id number] [place] [address] [place] Platelet mean volume (Bld) [Entitic vol] 9.9 fL Normal 9.0-12.7 [facility] Comment on above: Order Comment: Speci men Type: BLOOD SPECIMENOrdering Facility: [facility] Address: [address] [place] [address] Performed By: #### 5 8410-2 ####[facility] LABORATORYCLIA [id number] [place] [address] [place] Platelets (Bld) [#/Vol] 204 10*3/uL Normal 150-400 [facility] Comment on above: Order Comment: Speci men Type: BLOOD SPECIMENOrdering Facility: [facility] Address: [address] [place] [address] Performed By: #### 5 8410-2 ####[facility] LABORATORYIA [id number] [place] [address] [place] RBC (Bld) [#/Vol] 4.11 10*6/uL Low 4.20-6.00 [facility] Comment on above: Order Comment: Speci men Type: BLOOD SPECIMENOrdering Facility: [facility] Address: [address] [place] [address] Performed By: #### 5 8410-2 ####[facility] LABORATORYIA [id number] [place] [address] [place] WBC (Bld) [#/Vol] 8.61 10*3/uL Normal 3.70-11.00 [facility] Comment on above: Order Comment: Speci men Type: BLOOD SPECIMENOrdering Facility: [facility] Address: [address] [place] [address] Performed By: #### 5 8410-2 ####[facility] LABORATORYCLIA [id number] [place] [address] [place] Comprehensive metabolic 2000 panelon 04-25-2024 Albumin [Mass/Vol] 4.0 g/dL Normal 3.9-4.9 [facility] Comment on above: Order Comment: Speci men Type: BLOOD SPECIMENOrdering Facility: [facility] Address: [address] [place] [address] Performed By: #### 2 4323-8 ####[facility] LABORATORYCLIA [id number] [place] [address] [place] ALP [Catalytic activity/Vol] 92 U/L Normal 38-113 [facility] Comment on above: Order Comment: Speci men Type: BLOOD SPECIMENOrdering Facility: [facility] Address: [facility] [place] [address] Performed By: #### 2 4323-8 ####[facility] LABORATORYCLIA [id number] [place] [address] [place] ALT [Catalytic activity/Vol] 23 U/L Normal 10-54 [facility] Comment on above: Order Comment: Speci men Type: BLOOD SPECIMENOrdering Facility: [facility] Address: [address] [place] [address] Performed By: #### 2 4323-8 ####[facility] LABORATORYCLIA [id number] [place] [address] [place] Anion gap [Moles/Vol] 13 mmol/L Normal 8-15 [facility] Comment on above: Order Comment: Speci men Type: BLOOD SPECIMENOrdering Facility: [facility] Address: [facility] [place] [address] Performed By: #### 2 4323-8 ####[facility] LABORATORYCLIA [id number] [place] [address] [place] AST [Catalytic activity/Vol] 25 U/L Normal 14-40 [facility] Comment on above: Order Comment: Speci men Type: BLOOD SPECIMENOrdering Facility: [facility] Address: [address] [place] [address] Performed By: #### 2 4323-8 ####[facility] LABORATORYCLIA [id number] [place] [address] [place] Bilirubin [Mass/Vol] 0.2 mg/dL Normal 0.2-1.3 [facility] Comment on above: Order Comment: Speci men Type: BLOOD SPECIMENOrdering Facility: [facility] Address: [address] [place] [address] Performed By: #### 2 4323-8 ####[facility] LABORATORYCLIA [id number] [place] [address] [place] Calcium [Mass/Vol] 9.1 mg/dL Normal 8.5-10.2 [facility] Comment on above: Order Comment: Speci men Type: BLOOD SPECIMENOrdering Facility: [facility] Address: [address] [place] [address] Performed By: #### 2 4323-8 ####[facility] LABORATORYCLIA [id number] [place] [address] [place] Chloride [Moles/Vol] 110 mmol/L High 98-107 [facility] Comment on above: Order Comment: Speci men Type: BLOOD SPECIMENOrdering Facility: [facility] Address: [address] [place] [address] Performed By: #### 2 4323-8 ####[facility] LABORATORYCLIA [id number] [place] [address] [place] CO2 [Moles/Vol] 22 mmol/L Normal 22-30 [facility] Comment on above: Order Comment: Speci men Type: BLOOD SPECIMENOrdering Facility: [facility] Address: [address] [place] [address] Performed By: #### 2 4323-8 ####[facility] LABORATORYCLIA [id number] [place] [address] [place] Creatinine [Mass/Vol] 0.75 mg/dL Normal 0.73-1.22 [facility] Comment on above: Order Comment: Demarco harris Type: BLOOD SPECIMENOrdering Facility: [facility] Address: [address] [place] [address] Performed By: #### 2 4323-8 ####[facility] LABORATORYCLIA [id number] [address] Creatinine and Glomerular filtration rate.predicted panel (S/P/Bld) 95 mL/min/1.73m??? Normal >=60 [facility] Comment on above: Order Comment: Demarco harris Type: BLOOD SPECIMENOrdering Facility: [facility] Address: [address] [place] [address] Result Comment: Nancy mated Glomerular Filtration Rate [...] GFR. Performed By: #### 2 4323-8 ####[facility] LABORATORYCLIA [id number] [place] [address] [place] Glucose [Mass/Vol] 123 mg/dL High 74-99 [facility] Comment on above: Order Comment: Demarco harris Type: BLOOD SPECIMENOrdering Facility: [facility] Address: [address] [place] [address] Result Comment: The [place] Diabetes Association (ADA) provides guidance for cutoff [...] Standards of Medical Care in Diabetes 2016, [place] Diabetes Association. Diabetes Care. 2016.39(Suppl 1). Performed By: #### 2 4323-8 ####[facility] LABORATORYCLIA [id number] [place] [address] [place] Potassium [Moles/Vol] 4.1 mmol/L Normal 3.7-5.1 [facility] Comment on above: Order Comment: Speci men Type: BLOOD SPECIMENOrdering Facility: [facility] Address: [address] [place] [address] Performed By: #### 2 4323-8 ####[facility] LABORATORYCLIA [id number] [place] [address] [place] Protein [Mass/Vol] 6.8 g/dL Normal 6.3-8.0 [facility] Comment on above: Order Comment: Speci men Type: BLOOD SPECIMENOrdering Facility: [facility] Address: [address] [place] [address] Performed By: #### 2 4323-8 ####[facility] LABORATORYCLIA [id number] [place] [address] [place] Sodium [Moles/Vol] 145 mmol/L High 136-144 [facility] Comment on above: Order Comment: Speci men Type: BLOOD SPECIMENOrdering Facility: [facility] Address: [address] [place] [address] Performed By: #### 2 4323-8 ####[facility] LABORATORYCLIA [id number] [place] [address] [place] Urea nitrogen [Mass/Vol] 19 mg/dL Normal 9-24 [facility] Comment on above: Order Comment: Speci men Type: BLOOD SPECIMENOrdering Facility: [facility] Address: [address] [place] [address] Performed By: #### 2 4323-8 ####[facility] LABORATORYCLIA [id number] [place] [address] [place] HbA1c (Bld)on 04-25-2024 Average glucose Estimated from glycated hemoglobin (Bld) [Mass/Vol] 117 mg/dL Normal [facility] Comment on above: Order Comment: Demarco harris Type: BLOOD SPECIMENOrdering Facility: [facility] Address: [address] [place] [address] Result Comment: eAG: (Estimated average glucose) is a calculated value from HgbA1c and is field service representative of the average blood glucose level in the last 2-3 month period. Performed By: #### 5 5454-3 ####[facility] LABCLIA [id number] [address] STATES [facility] HbA1c (Bld) [Mass fraction] 5.7 % High 4.3-5.6 [facility] Comment on above: Order Comment: Demarco harris Type: BLOOD SPECIMENOrdering Facility: [facility] Address: [address] [place] [address] Result Comment: [place] Diabetes Association guidelines indicate that patients with HgbA1c in the range 5.7-6.4% are at increased risk for development of diabetes, and intervention by lifestyle modification may be beneficial. HgbA1c greater or equal to 6.5% is considered diagnostic of diabetes. Performed By: #### 5 5454-3 ####[facility] LABCLIA [id number] [place] [address] [place] Lipid 1996 panelon 4 Cholesterol [Mass/Vol] 87 mg/dL Normal <200 [place] Comment on above: Order Comment: Demarco harris Type: BLOOD SPECIMENOrdering Facility: [facility] Address: [address] [place] [address] Result Comment: <200 mg/dL, Desirable 200-239 mg/dL, Borderline high>239 mg/dL, High Performed By: #### 2 4331-1 ####[facility] LABCLIA [id number] [address] [place] Cholesterol in HDL [Mass/Vol] 37 mg/dL Low >39 [facility] Comment on above: Order Comment: Speci men Type: BLOOD SPECIMENOrdering Facility: [facility] Address: [address] [place] [address] Result Comment: 40-5 9 mg/dL, Acceptable>59 mg/dL, High: Negative risk factor for coronary heart disease<40 mg/dL, Low: Positive risk factor for coronary heart disease Performed By: #### 2 4331-1 ####[facility] LABCLIA [id number] [address] Cholesterol in LDL [Mass/Vol] 40 mg/dL Normal <100 [facility] Comment on above: Order Comment: Pemai men Type: BLOOD SPECIMENOrdering Facility: [facility] Address: [address] [place] [address] Result Comment: <100 mg/dL, Optimal 100-129 mg/dL, Near optimal/above optimal 130-159 mg/dL, Borderline high 160-189 mg/dL, High>189 mg/dL, Very highSecondary prevention optimal LDL Cholesterol levels are recommended to be < 70 mg/dL Performed By: #### 2 4331-1 ####[facility] LABCLIA [id number] [address] Cholesterol in LDL/Cholesterol in HDL [Mass ratio] 1.08 {ratio} Normal <2.54 [facility] Comment on above: Order Comment: Speci men Type: BLOOD SPECIMENOrdering Facility: [facility] Address: [address] [place] [address] Result Comment: Refe rence:1. National Cholesterol Education Program ATP III Guideline At-A-Glance Quick Desk Reference: National Heart, Lung, and Blood [place]. National Institutes of Health. 2001: NIH Publication No. 01-3305.2. An International Atherosclerosis Society position paper: global recommendations for the management of dyslipidemia: executive summary, Atherosclerosis. 2014: 232(2):410-413. Performed By: #### 2 4331-1 ####[facility] LABCLIA [id number] [place] [address] [place] Cholesterol in VLDL [Mass/Vol] 10 mg/dL Normal <30 [facility] Comment on above: Order Comment: Speci men Type: BLOOD SPECIMENOrdering Facility: [facility] Address: [address] [place] [address] Performed By: #### 2 4331-1 ####[facility] LABCLIA [id number] [place] [address] [place] Cholesterol non HDL [Mass/Vol] 50 mg/dL Normal <130 [facility] Comment on above: Order Comment: Speci men Type: BLOOD SPECIMENOrdering Facility: [facility] Address: [address] [place] [address] Result Comment: <130 mg/dL, Optimal 130-159 mg/dL, Near optimal/above optimal 160-189 mg/dL, Borderline high 190-219 mg/dL, High>219 mg/dL, Very highSecondary prevention optimal non HDL Cholesterol levels are recommended to be <100 mg/dL Performed By: #### 2 4331-1 ####[facility] LABCLIA [id number] [place] [address] [place] Cholesterol.total/Veronika sterol in HDL [Mass ratio] 2.35 {ratio} Normal <5.10 [facility] Comment on above: Order Comment: Speci men Type: BLOOD SPECIMENOrdering Facility: [facility] Address: [address] [place] [address] Performed By: #### 2 4331-1 ####[facility] LABCLIA [id number] [place] [address] [place] FASTING TIME 10 hrs Normal [facility] Comment on above: Order Comment: Speci men Type: BLOOD SPECIMENOrdering Facility: [facility] Address: [address] [place] [address] Performed By: #### 2 4331-1 ####[facility] LABCLIA [id number] [place] [address] [place] Triglyceride [Mass/Vol] 52 mg/dL Normal <150 [facility] Comment on above: Order Comment: Speci men Type: BLOOD SPECIMENOrdering Facility: [facility] Address: [address] [place] [address] Result Comment: <150 mg/dL, Normal 150-199 mg/dL, Borderline high 200-499 mg/dL, High>499 mg/dL, Very high Performed By: #### 2 4331-1 ####[facility] LABIA [id number] [place] [address] [place] PSA/PROSTATE SPECIFIC ANTIGE N SCREENINGon 04-25-2024 Prostate specific Ag [Mass/Vol] 1.63 ng/mL Normal <2.60 [facility] Comment on above: Order Comment: Speci men Type: BLOOD SPECIMENOrdering Facility: [facility] Address: [address] [place] [address] Result Comment: Tota l PSA test methodology used is the Electrochemiluminescence Immunoassay by [employer]. Total PSA values by differing methodologies cannot be interchanged. Performed By: #### P SAS1 ####[facility] LABIA [id number] [place] [address] [place] TSH SerPl-aCncon 04-25-2024 TSH Qn 0.853 m[IU]/L Normal 0.270-4.20 0 [facility] Comment on above: Order Comment: Speci men Type: BLOOD SPECIMENOrdering Facility: [facility] Address: [address] [place] [address] Performed By: #### 3 016-3 ####[facility] LABORATORYCLIA [id number] [place] [address] [place] ECG COMPLETEon 03-19-2024 Atrial Rate 76 BPM [facility] Calculated P [place] 10 degrees [facility] Calculated R [place] 7 degrees [facility] Calculated T [place] 15 degrees [facility] P-R Interval 188 ms [facility] QRS Duration 96 ms [facility] QT Interval 386 ms [facility] QTC Calculation (Bazett) 434 ms [facility] Ventricular Rate 76 BPM [facility] NORMAL SINUS RHYTHM LOW VOLTAGE QRS, IN PRECORDIAL LEADS INFERIOR MYOCARDIAL INFARCTION , AGE UNCERTAIN ABNORMAL ECG Confirmed by SANDRA BECKER MD ([id number]) on 03/19/2024 3:46:46 PM [facility] NAME : TERE BARONE PID : [id number] : 1950 Gender : Male Race : ORD : [id number] Procedure Date : Mar 19 2024 14:39:15 Edit Date : Mar 19 2024 15:46:47 Diagnosis: NORMAL SINUS RHYTHM LOW VOLTAGE QRS, IN PRECORDIAL LEADS INFERIOR MYOCARDIAL INFARCTION , AGE UNCERTAIN ABNORMAL ECG Confirmed by SANDRA BECKER MD ([id number]) on 03/19/2024 3:46:46 PM Test Reason : I10 Primary hypertension Location : 137 : STCARD Overread By : SANDRA BECKER MD Edited By : SANDRA BECKER MD Referred By : , Acquired by : [facility] SKIN / NAIL BIOPSYon Type of [...] and confirm diagnosis. Photos in Get Images. [facility] HbA1c (Bld)on 01-05-2024 Average glucose Estimated from glycated hemoglobin (Bld) [Mass/Vol] 134 mg/dL [facility] Comment on above: eAG: (Estimated aver age glucose) is a calculated value from HgbA1c and is field service representative of the average blood glucose level in the last 2-3 month period. HbA1c (Bld) [Mass fraction] 6.3 % High 4.3 - 5.6 % [facility] Comment on above: [place] Diabetes As sociation guidelines indicate that patients with HgbA1c in the range 5.7-6.4% are at increased risk for development of diabetes, and intervention by lifestyle modification may be beneficial. HgbA1c greater or equal to 6.5% is considered diagnostic of diabetes. Interpretation and review of laboratory results Abnormal [facility] XR Shoulder - right 3 Viewso n 12-17-2023 Radiology Study observation (narrative) [facility] IMPRESSION: No acute osseous abnormality Mine Motor Operator: MICHELE Transcribe Date/Time: Dec 17 2023 4:33P Dictated by : BRITTNEY NEWTON MD This examination was interpreted and the report reviewed and electronically signed by: BRITTNEY NEWTON MD on Dec 17 2023 4:38PM [facility] DIVISION OF RADIOLOGY * * [...] glenohumeral marginal osteophytes. DIVISION OF RADIOLOGY Provider, [facility] - 12/17/2023 * * *Final [...] osteophytes. IMPRESSION IMPRESSION: No acute osseous abnormality Mine Motor Operator: MICHELE Transcribe Date/Time: Dec 17 2023 4:33P Dictated by : BRITTNEY NEWTON MD This examination was interpreted and the report reviewed and electronically signed by: BRITTNEY NEWTON MD on Dec 17 2023 4:38PM EST [facility] XR Shoulder - right 3 ViewsO rdered By: [facility] Provider on 12-17-2023 [facility] SKIN / NAIL BIOPSYon 10-30-2 024 Type of biopsy: moss ential Informed [...] and confirm diagnosis. Photos in Get Images. [facility] SURGICAL PATHOLOGYOrdered By : Jamee Sutherland on 08-13-2023 Case Report Surgical Pathology R eport Case: [id number] Authorizing Provider: Lise Corado MD, PhD Collected: 08/09/2023 10:11 AM Ordering Location: Ambulatory Surgery Received: 08/09/2023 12:01 PM Pathologist: Jamee Sutherland MD Specimens: A) - COLON POLYP, splenic flexure B) - COLON POLYP, descending colon C) - COLON POLYP, sigmoid colon x 5 D) - COLON POLYP, rectum x 3 [facility] Work Phone: FINAL DIAGNOSIS n5avbXOuSUJeiZNfLHEr NVxhbnN jAQOwbSRqP0KlsyajAVilHD1yPL 4pjQsbiGTurLIsIHYnSfCpn3pve 727tEEfk0rpQETXotyfsJx9oXln D59ru6M4YvyhA42qgXQzOBV8XGC aKBKmeEUgNNGiBPA3AHZzlJBqP9 hpMOMdBC9titkeDDovOPajRRLsn KH5GMAteRNiI3WeBWJeXCnfYZAt fww5VyVoHr6brPClnJvwTIfvWJQ jGYApZGybHCFaGiDkSI1wPIUdbP 9uIHBvbHlwLCBzcGxlbmljIGZsZ Iy0daNxKNXfc1DdySgwoJQfRY9t QXLhgJnnwaLtJQSgz03uDaswDVY kcCRdKNFsGKTSf4qptiYlp9u3cI czIUCaM6LfQHztDoutQaysaJH2C pauNYOsRCROlAN7qWBmUNXlZH3a aUNnALVkqjkoCMSwCx4gPYClxK4 nLOSpcHcpDNXdzZfql1gyQKjtJZ zpNqtllYL7MtwhPVGdCMFBiXu5k MVzOXOskmBehQGqsCIsy5ShhVUl lBsmhcGzBAEhi88nWiafTRCvQMM YwDRzfhFeMQY1pYPowJ6gmXAnMz jgJMOrgFVqFMFoUYQTd2djitHxv 0o6mEepdoFfyROtMYanFyauLtyh oWD5DgsaEMXcOFLOoEd5xXYoFHX xfmQsfRKudPGsl6VxwAJshSvxut crtW32uvJdASCrr52sDqmnXKJsR LNDzIYtabUtSIL0wANtnA7lnDOd LlxwYXJ9 [facility] Work Phone: Gross Description r7ktbOAaDYTfcWNEYEP8 MDJcYW5 njHrdkMp3eCxdYBGsznW3bBPrMG boy7fyYDH8b0ouakMZRxskTTOuT O2rRDbiCDSyPC3gUgGiFUNiHeTu XHBhcGVydzEyMjQwXHBhcGVyaDE 4HJYcWC7wcdddNExqVExqJYLwun Q9JSDbuSDjP8QjILIvFF9mppusD HQ5PDTVBtmkZj2ayNRbzIcpRwZy ZhKoSTXnADLfCLYkf2juqqALujk arAq5gC7LICQcN7UkZD3Sx4xvFW JvoMOfEHX2KTino1ecISzcJEK4W OJiYOFeXBXkBN7QCqUnLCF3FChf WeQ0BeD8RZi3AACFNUKiTHMhHfJ 7SqBjKKf5WDrlBWepvBPnGZVqNV KrMAPuFBaqmyM1j2gsOMGlxKBcY FP7XMykg6chFFspPMB2MQUkHkKh RNNfWU2SFkMwFCH8JYegKmE5HlK 1LCk8CZNMCaXmIdUfTRwyNJW4Nc LjOSz5GEc6AXnAUhThVuMqHhoqO mzvIxQ3IQZjHdGhDOVdQrEsLGLg URMeMOtwcBPhNM2dlMndORZxKN8 HYCCfNFznAMVpZbFgDJ4cL59FY9 5oTL3DUGLjfBBaO4pkdKHvZG4LX SLkqdDbJUpcdDrfcJ5jjNBmM5qu ZnMyMlxlcGljTmVzdERvYzEgDQp qaJNulJEjDHHfQsLaZUUtQ3foRB CkFU3ZKKGkRiShAsKiUFn4WLPfo C5gYk9bsKNytA5osCCej20zFERa fjMnu2v8eN2zVYEmDRkaIO36GY4 dLIGuk4H1XIKpTZMjrJEmhearNT 71NKxtMW32FVrbXO4rNTNqJmERl zGxmQXscqHdrwLkgkRcDE44JmNT wXMddCtfGRXpGoFwLNTfH6Meu91 ybYAnlf59GBZnJJWiDZTvxCPduK 4hqoGopzVbqOCwV6LyCXUjqhYuj W73RTvutJPorEGtfPZ5VRMpoT9d c54xQXLuk2VntTTmXw3FROXfrFS JCZM6KO1pIKouPHJvB0PvC1Swbr T8PJBrkyRACpcwPzqttOedu6Ryz CBcXHNnIFxcaWQgNTEwMDIgXFxk PvZFZgJbRwF6SyZ2XFJzXXFiPAv 7XVplM8DFWQWzVFP4JSw4HgUuKd Q6PGz1YHJPAz7rLCDaOWZ6JwC0D FMuXAO7NcViGKu3SUOhZQtmnbJh LUrtMxmlROatG52heDRbENmsVvU vLXlzhRihISUcDPS5MW5ZXLPtSu HtCn9aX30NO13cZP9EPOYimXXpF B4MKRZhthWdKTwczCohfG2ooOZw G3hwLcZdHbcpvZtvJbKcxTDpFxV gDQpcbHRycGFyXHNiMzBcZXBpY1 uaMmNaNSHpUzBrZHAqK8wnVJPoP V5OOEStTwLuHtFhEGa8VEOmaU0i Hl0okKBeqJ1nvCVyc92qJOIxycE ku6f3nR9eGHKjOHgfZN91TU6xLI Vyu0T7CVZjLDDwyAUcrnnvNX17B KstJF38NWugCI8nRZQxIlZTroFs hTIlsaQxqqQefgNwML83IaNXbZG fgFfuNJMaPuYfRUGrF7Jpo26drF Nvcw07MWWdTPRqRZAgrCAatS9wc bFshmQrqWTdC1OdYMWbbrKanB82 BWvxkRHooRDwdFU7YKWigM5cl37 yEUDsw8DrwLBlNb4DXJWvsKDGTU L1GH3uLMsoMMSwS2SoK9AeezL2U WChlgOLLqsvHuxubEunx4FvkTMu XHNnIFxcaWQgNTEwMDIgXFxkYiB EWyVjNlU1JoY4DZAxGEUpUXo3FQ nbY9AQAQEeEML6MHp6ICV9QaL6E Ka8MZHYRz5iBQRdCXM6GoFpTRru RWT3DxBcZJe3PJIzMCmuavEiOEw bCjjoKYpaC59lvGAcTXduVsZtMT oeoSkzFXHwPEG1HN8LOUOtCuEyB b4vB91FE58eUF7YBBVekZXlXP7Z RJVcfjDvUDapmFvheV9heTBvI6s cZnMyMlxlcGljTmVzdERvYzEgDQ mihLLpjIHgIINwCnFrCYEhJ0qiE zFrJFQeFwXzZMSvP7vlVYAmDN2V GYLrGoDdJjOqSZd9HLHdxM6nLi9 bcKCmmY6oJVIgET65sPBhyQayNA ErgxVfk0l6dB7zFVShWGhvJO83h jQzUgR3zWMmqBXnmfHgY8ouIbCd icBtoCsxUSRap85nYK02QBqlEW5 2SOoyBQ21OHKnTRZiNUQxEWQ4MG QsQdJ0PNKsLoVqqN1jBo0qx9Tep OtaVVRyMGSzgeQzFT94UbYWnWCo tMgtUFEmr2UmfdCoHNS6cL2vSWS rSGXtx3EyGJ0tLEnkUWfgfudbru QtcHJenK2ishPlZQIqLIKtr2Mbd XLyHTHaNNB5i0BqlBx8TNY8Nl8c bMWcSQLnwsOoTAImPCU3NSTRQP2 bKTugMCEkFQblBYPyz8EwS8weVK 3cGQMvBJPmp7Oev1LosZgzytSzX VUhKZF6l5DlxZh9DJV1Zn0dwOVt GGElizAvDGAtJOL4ZNALGj7VSji oiFeeDlOlbTKbCwY0TRJrlCDuTI B5TO2pwAisYOElPYr0VRbuUYCiR 2NoX3FwNRlnSnJxBMnzGJSpVBIp KMtpLGWlC8MKXMKdELAsBcAkUFA xXEr6AXx8ES2SLpNhDUF4DtO9Cr IaRpPcUPe0DSjzMM8ZEZKyZaUdN KKbPKy1ZXF1ThNbWWhucMUoYGug n6CyUqCxCQMhYElkggJ8SJNlnzX iq4SmLRLkWTXeS4qnTdObLGRYSh jvbgGrKMCjIKDVHW5DWAQBUFgKL UXwvuMCIyloOXLcMH3DXOJjAMae KPr7mdNvHDKvVhNhNOBeP39ar7M Qb0WnJI0VGYo5foXwyslbTcRqZB IkuDPPr5KpQMSZOvjrxeCrPGCtY 0ChuhPsRAnwNUXpkb9yvUhnYXRk KCUim1EvVSPtbpYlg8r9dD4wXFU eHKhlNO08yfLsIeC9tSNjxFBewm AmI1shGpVfpwAloRruAGXle17rY X8gAIkkCJ01KKbqJY89OTYnVEJe NGGqFeT3WFMbOEE7DTEcCuHtaO3 jUs5aj4IviWdkLZQlALJdweGxJJ 23AoYIgSDwgOdfDUFmj6YrnxAoB RF9tD4jUPXbABPbu6XeAW8fTGba IHNwZWNpbWVucyBhcmUgYmlzZWN 4LVXfEY0rYMKcsDZqeCwbm8UyhT u6aISaEKedFUK0ynQlAAAnORN6M XMuIFxwYXIgDQpccGFyZFxsdHJw RCDlPDtgiDBmRJ3FA3Ktz5OmZQj nfVcgONDfj81tvHXxSc5uvNIjYW T7EERkFMRptQSsOQQXkThlxAAjQ Gp1WGLnGEMkcTdeJMA8WL1oMOPh OVOxmZXwUQldA7qkVVBmSCHewQB yMG0JXQDfizXWQnwETMPaCaW6Kj IwMjQgNzozMCBQTVxwYXIgDQpcc 2EzMFxlcGljWHNhMzAgDQpcZXBp I21hr9VIc0Yzy6bfxUgma7ByjMW dXT44RTIoaHCkWQB4DE2ydOtzGF YzPXghpDGtOGWUZevgriZdZJ7Ip Q== [facility] Work Phone: Performing Lab h7znpWBnIFOxrOTuYvYr MDAwXGF uu4frYJWkcPUaBpNoThJuDcBlNs vbhDKhEDYnSaVel2dil367aLItw 5cbXXAoLeI4iXVyEBZrsUHtD032 GLCgBZmqw5mqe1PwKZTbfDTuz0G 2IONMxhoehBc6eVnvQ05nf2K0Zi snU3dbEMEaVHMlZ4KnVF1fOGAxE di5MDW3YDT4UAYbLQWkO4RwWH0j SSEfdSUoWRe8c4lazPlhOQUjWCG 1e7hgYGxdhjYgQN1myz7wqSs8k1 vodrCxSZQkJOCkaACBESZzT1Abh EqiSr7ryGz1uRhgNyjuZBT0Uze0 UR2hhn28avu4zAghKLGycpfpVsB 8VFmgSXWwhknrHNu9LYkbQSFpvE Y8TKZkfNQfF6PlOFCkYN4hygw4E UO2HWtbXETvRxA5UPCmvJOaSMDv iQjrHCyik353FOP4RzPbIY8eM7K ib5X4sX4fyZCdAZXdwXSySpLuHJ Vmez7egYPlVVaut1CiAEY5pxJ6z LAonBZhTGYsCZ85Gyayq5YfRccs m4UsB76bdNB6DRczq5xhBT3dVyR 2yyBcUXcmr6fgkH1wKlQ4ALfzRU 8nDM9kMAStoS2flmutIJBqFbCut ecpQONfzEhyucLaQh3owLznARV3 HJbxO2olxV6yPfC6TMmoY8yphE8 fGNx4CPkzxJX2GIUgcE1uFQ7lck mvd1muNMzzNCyaRZZfugB5mhE7V VBybYEvL5OtwX6aCINvZL3flzwr a1fyGOY5ZKzmFRAyMSD4CjJvQSJ qw5Rhzns9RsPnv0FlbDJiQVtyZ1 7mt800GHThcnHcP9gzoCUouepqb DNvqubcNVidpuM2EBYqFPXqHXxw XGYxXGZzMjJcbGFuZzEwMzNcaGl nrCzkPQcmIkOpZKVcBNxhI6riGb EfBiNtMvMMjPLbyy6vmWhbDDryt AVtfDCzvCY7oM9kLMEcauOsmc9s WCWdkEIFwGK6USxpkmSnO5ypevg cYCKzmBIqFTCjgY27ZCCIc2FlrB RhbCwgMjAwMDAgSGFydmFyZCwgV 9HxzoHwl0VvsWibDCm4xxOZRLK0 NDEyMiAgICBDTElBIyAzNkQwNjY 4NjMxXHBhclxwYXJccGFyZFxwbG JfohdsSSncibM1ORRmTVqyWYZfA GZzMjJcbGFuZzEwMzNcaGljaFxm KVsjVsUnTCJuORyhJ1eiXpVfO9T kMFYbLqSneFEjC0ukZRHqi4IxdH 8quSYcnQdruV9qDmEuFgFsMkmlI Q0vSGRpS8xxaJCnUDCnVWZeP5rr KgCstI3sbUrcZZyajdHzXLCauoX ioP7aImJMXJKyrTzsN4J3qhZirS FuLCBNLkQuXHBhcn0= [facility] Work Phone: [facility] Work Phone: Colonoscopy Study observatio non 08-09-2023 [facility] Gastrointestinal Endoscopy Patient Name: Tere Barone [...] were provided (more content not included)... [employer]ATION [facility] Radiology Study observation (narrative) [facility] GLUCOSE, BLOOD (POC)on Glucose [Mass/Vol] 136 mg/dL Abnormal 74 - 99 mg/dL [facility] Comment on above: Location:[facility], [address] [place] [address], [address] The Accu-Chek Inform II glucose meter has [...] Interpretation and review of laboratory results Abnormal [facility] ECG COMPLETEon 12-15-2022 Atrial Rate 67 BPM [facility] Calculated P [place] 16 [address] [facility] Calculated R [place] -10 degrees [facility] Calculated T [place] -6 degrees [facility] P-R Interval 212 ms [facility] QRS Duration 106 ms [facility] QT Interval 426 ms [facility] QTC Calculation (Bazett) 450 ms [facility] Ventricular Rate 67 BPM [facility] HEMOGLOBIN A1C (POC)on 08-02 HbA1c (Bld) [Mass fraction] 7.5 % Abnormal 4.2 - 5.6 % [facility] ALLIED HEALTHon 05-05-2022 ALLIED HEALTH HNO ID: [id number] Author: RT Viv(R) Service: Radiology Author Type: [...] Sarahi Vazquez) May 05, 2022 12:12 PM [facility] MRA CAROTID WO/W IVCONon MRA CAROTID WO/W IVCON * * *Final Report * * * DATE OF EXAM: May 05 2022 12:48PM [facility] 0276 - MRA CAROTID WO/W IVCON / [...] gradient echo images. Intracranial and extracranial 3D ccgn-zg-czscuo MRA with post-processing performed at the modality [...] stenosis at the origin of left ICA. Mine Motor Operator: PSCB Transcribe Date/Time: May 05 2022 2:00P Dictated by : GANES CHILDS MD This examination was interpreted and the report reviewed and electronically signed by: AGNES CHILDS MD on May 05 2022 2:08PM EST [id number] Normal [facility] Antionette 04-21-2022 GRIFFIN Telephone (AVXRMR) BRITTANYJUSTIN Gross ([id number]) 1950 M [facility] Date Time Provider Department 04/21/22 LARGE HOPS PROCEDURE RM 1 AVXRMR During your visit today, we recorded the following information about you: Allergies As of Date: 04/21/2022 (No Known Allergies) Date Reviewed: 04/18/2022 Reviewed by: Priscilla Salas MD - Fully Assessed Reason for Visit: Orders [681] Primary Visit Diagnosis: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 Normal [facility] SCREENING FOR AAAon 04-14 [facility] CAROTID BILATon [facility] HEMOGLOBIN A1C (POC)on 12-21 HbA1c (Bld) [Mass fraction] 6.2 % 4.2 - 5.6 % [facility] US ABD RT UPPER QUADRANTon 0 12-02-2021 [facility] US ABD SPLEEN - NBon 12-02- 022 [facility] PLT DEP.AB, UNF. HEPARINon 0 11-19-2021 Serotonin release.heparin.porcine (S) [Interp] 0 % [facility] Serotonin release.heparin.porcine (S) [Interp] Negative Negative [facility] Serotonin release.heparin.porcine panel (S) See Note [facility] Serotonin release.heparin.unfract ionated panel (S) 0 % [facility] Comprehensive metabolic 2000 panelon 11-11-2021 Albumin [Mass/Vol] 4.0 g/dL 3.9 - 4.9 g/dL [facility] ALP [Catalytic activity/Vol] 89 U/L 38 - 113 U/L [facility] ALT [Catalytic activity/Vol] 20 U/L 10 - 54 U/L [facility] Anion gap [Moles/Vol] 9 mmol/L 9 - 18 mmol/L [facility] AST [Catalytic activity/Vol] 24 U/L 14 - 40 U/L [facility] Bilirubin [Mass/Vol] 0.4 mg/dL 0.2 - 1 .3 mg/dL [facility] Calcium [Mass/Vol] 9.3 mg/dL 8.5 - 10. 2 mg/dL [facility] Chloride [Moles/Vol] 107 mmol/L High 97 - 10 5 mmol/L [facility] CO2 [Moles/Vol] 24 mmol/L 22 - 30 mmol/L [facility] Creatinine [Mass/Vol] 0.83 mg/dL 0.73 - 1.22 mg/dL [facility] Estimated Glomerular Filtration Rate 93 mL/min/1.73m >=60 mL/min/1.7 3m [facility] Glucose [Mass/Vol] 170 mg/dL High 74 - 99 mg/dL [facility] Potassium [Moles/Vol] 4.3 mmol/L 3.7 - 5.1 mmol/L [facility] Protein [Mass/Vol] 7.0 g/dL 6.3 - 8.0 g/dL [facility] Sodium [Moles/Vol] 140 mmol/L 136 - 144 mmol/L [facility] Urea nitrogen [Mass/Vol] 16 mg/dL 9 - 24 mg/dL [facility] LD LACTATE DEHYDROon 022 LDH [Catalytic activity/Vol] 226 U/L High 135 - 225 U/L [facility] RETIC COUNTon 11-11-2021 Reticulocytes (Bld) [#/Vol] 0.0001 10*3/uL High 0.018 - 0.100 M/uL [facility] Reticulocytes (Bld) [#/Vol]o n 11-11-2021 Reticulocytes/100 RBC (Bld) 2.2 % High 0.4 - 2.0 % [facility] US CAROTID BILATon 2 [facility] Heart Perfusion W stress and W radionuclide Jan 09-22-2021 * * *Final Report* * * DATE OF EXAM: Sep 22 2021 3:01PM [place] [id number] - [place] CARDIAC PERF STRESS/PHARM / PROCEDURE REASON: Encounter for screening for cardiovascular disorders * * * * Physician Interpretation * * * * Stress Resin Remover Report: [facility] Date of service: 09/22/2021 1:08:16 PM Supervising [...] 60 minutes later. See administered doses below. [facility] Date of service: 09/22/2021 1:08:16 PM Ordering [...] for inducible ischemia. Final Stress ECG Report: [facility] Date of service: 09/22/2021 1:08:16 PM Ordering physician: DEANNE CARRASCO endocrinology specialist: Edith Silva RN Interpreting physician: Priscilla [...] PVCs (3-7/Min) and Anterior & Inferior Wall [place] Symptoms at rest: No symptoms Pharamcologic Protocol: Regadenoson Stress Exercise Table: +-----+---+---+---+ Stage HR SYS TEE +-----+---+---+---+ 1 98 +-----+---+---+---+ 2 100 102 62 +-----+- (more content not included)... ZZZ_DO_NOT _USE_DIVIS ION OF RADIOLOGY [facility] - 09/22/2021 * * *Final Report* * * DATE OF EXAM: Sep 22 2021 3:01PM [facility] 0006 - [place] CARDIAC PERF STRESS/PHARM / PROCEDURE REASON: Encounter for screening for cardiovascular disorders * * * * Physician Interpretation * * * * Stress Resin Remover Report: [facility] Date of service: 09/22/2021 1:08:16 PM Supervising [...] 60 minutes later. See administered doses below. [facility] Date of service: 09/22/2021 1:08:16 PM Ordering [...] for inducible ischemia. Final Stress ECG Report: [facility] Date of service: 09/22/2021 1:08:16 PM Ordering physician: DEANNE CARRASCO endocrinology specialist: Edith Silva RN Interpreting physician: Priscilla [...] PVCs (3-7/Min) and Anterior & Inferior Wall [place] Symptoms at rest: No symptoms Pharamcologic Protocol: Regadenoson Stress Exercise Table: +-----+---+---+---+ Stage HR SYS TEE +-----+---+---+---+ 1 98 +-----+---+---+---+ 2 100 102 62 +-----+---+---+---+ 3 108 90 50 +-----+---+---+---+ 4 100 98 64 +-----+---+---+---+ +-----+---+---+---+ HR SYS TEE +-----+---+---+---+ Final 108 90 50 +-----+--- (more content not included)... [facility] Radiology Study observation (narrative) [facility] [place] Heart Perfusion W stress and W radionuclide IVOrdered By: [facility] Provider on 09-22-2021 [facility] XR Lumbar spine AP and Later debora 09-21-2020 IMPRESSION: Advanced lumbar spine degenerative changes. Overall findings unchanged. Mine Motor Operator: PSCB Transcribe Date/Time: Sep 21 2020 1:02P Dictated by : DORIE PIERSON MD This examination was interpreted and the report reviewed and electronically signed by: DORIE PIERSON MD on Sep 21 2020 1:13PM [facility] DIVISION OF RADIOLOGY * * [...] spine are presented. FINDINGS: There are five kch-iap-ybjuzxp lumbar vertebrae. No acute fractures demonstrated. Grade 2 L5 on S1 anterolisthesis is again demonstrated. There is L5-S1 disc space narrowing. There is mild to moderate osteophyte formation, with extensive facet arthrosis. Kissing spine visualized on lateral view. DIVISION OF RADIOLOGY Provider, Georgina De La Cruz - 09/21/2020 * * *Final Report* * [...] spine are presented. FINDINGS: There are five pqb-cea-vjrqsfa lumbar vertebrae. No acute fractures demonstrated. Grade 2 L5 on S1 anterolisthesis is again demonstrated. There is L5-S1 disc space narrowing. There is mild to moderate osteophyte formation, with extensive facet arthrosis. Kissing spine visualized on lateral view. IMPRESSION IMPRESSION: Advanced lumbar spine degenerative changes. Overall findings unchanged. Mine Motor Operator: PSCB Transcribe Date/Time: Sep 21 2020 1:02P Dictated by : DORIE PIERSON MD This examination was interpreted and the report reviewed and electronically signed by: DORIE PIERSON MD on Sep 21 2020 1:13PM EST [facility] XR Lumbar spine AP and Later alOrdered By: Ccf Provider on 09-21-2020 [facility] XR Lumbar spine AP and Later debora 09-20-2020 Radiology Study observation (narrative) [facility] Vital Signs Date Time Vital Sign Value Performing Clinician Facility 04-11-2025 08:57-0400 SaO2% (BldA) [Mass fraction] 95 % [facility] Comment on above: Order Comment: Specimen Type: ARTERIAL B LOOD SPECIMENOrdering Facility: [facility] Address: [address] [place] [address] Performed By: #### A LLBG ####[facility] [id number] [facility] RES[facility]IRAT[facility] [id number] [place] [phone] 04-02-2025 10:13-0400 SaO2% (BldA) [Mass fraction] 97 % [facility] Comment on above: Order Comment: Specimen Type: ARTERIAL B LOOD SPECIMENOrdering Facility: [facility] Address: [address] [place] [id number] Performed By: #### A LLBG ####[facility] [id number] HOSP[facility] RESPIRATORY [id number] [place] [phone] 02-20-2025 12:42-0400 Body mass index (BMI) [Ratio] 24.44 kg/m2 Norah Candelario MD Work Phone: [facility] 02-20-2025 12:42-0400 Body temperature 97.59 [degF] Noarh Candelario MD Work Phone: [facility] 02-20-2025 12:42-0400 Body weight 77.25 kg Norah Candelario MD Work Phone: [facility] 02-20-2025 12:42-0400 Diastolic blood pressure 64 mm[Hg] Norah King Work Phone: [facility] 02-20-2025 12:42-0400 Heart rate 79 /min Norah Candelario MD Work Phone: [facility] 02-20-2025 12:42-0400 SaO2% (BldA) [Mass fraction] 98 % Norah Candelario MD Work Phone: [facility] 02-20-2025 12:42-0400 Systolic blood pressure 103 mm[Hg] Norah Candelario MD Work Phone: [facility] 02-17-2025 15:06-0400 Diastolic blood pressure 62 mm[Hg] Priscilla Salas MD Work Phone: [facility] 02-17-2025 15:06-0400 Heart rate 80 /min Priscilla Salas MD Work Phone: [facility] 02-17-2025 15:06-0400 SaO2% (BldA) [Mass fraction] 99 % Priscilla Salas MD Work Phone: [facility] 02-17-2025 15:06-0400 Systolic blood pressure 116 mm[Hg] Priscilla Salas MD Work Phone: [facility] 02-11-2025 11:31-0400 Body height 177.8 cm Samm Kc DO Work Phone: [facility] 02-11-2025 11:31-0400 Body mass index (BMI) [Ratio] 23.96 kg/m2 Samm Kc DO Work Phone: [facility] 02-11-2025 11:31-0400 Body weight 75.75 kg Samm Kc DO Work Phone: [facility] 02-11-2025 11:31-0400 Diastolic blood pressure 77 mm[Hg] Samm Persaudcini DO Work Phone: [facility] 02-11-2025 11:31-0400 Heart rate 104 /min Samm Persaudcini DO Work Phone: [facility] 02-11-2025 11:31-0400 SaO2% (BldA) [Mass fraction] 98 % Sammmaira Persaudcini DO Work Phone: [facility] 02-11-2025 11:31-0400 Systolic blood pressure 117 mm[Hg] Sammmaira Persaudcini DO Work Phone: [facility] 02-10-2025 10:22-0400 Body mass index (BMI) [Ratio] 24.04 kg/m2 Gila Braxton MD Work Phone: [facility] 02-10-2025 10:22-0400 Body temperature 97.81 [degF] iGla Braxton MD Work Phone: [facility] 02-10-2025 10:22-0400 Body weight 76 kg Gila Braxton MD Work Phone: [facility] 02-10-2025 10:22-0400 Diastolic blood pressure 57 mm[Hg] Gila King Work Phone: [facility] 02-10-2025 10:22-0400 Heart rate 110 /min Gila Braxton MD Work Phone: [facility] 02-10-2025 10:22-0400 Respiratory rate 15 /min Gila Braxton MD Work Phone: [facility] 02-10-2025 10:22-0400 SaO2% (BldA) [Mass fraction] 97 % Gila Braxton MD Work Phone: [facility] 02-10-2025 10:22-0400 Systolic blood pressure 108 mm[Hg] Gila Braxton MD Work Phone: [facility] 02-08-2025 10:32-0400 PAIN LEVEL 0 {score} [facility] Bsannettea [facility] 02-08-2025 08:33-0400 Body temperature 97.5 [degF] Beltran Bshara [facility] 02-08-2025 08:33-0400 Diastolic blood pressure 71 mm[Hg] Beltran Bsannettea E[facility] 02-08-2025 08:33-0400 Heart rate 73 /min [facility] Bshara [facility] 02-08-2025 08:33-0400 Oxygen saturation in Blood 97 % [facility] Bshara [facility] 02-08-2025 08:33-0400 Respiratory rate 16 /min [facility] Bsannettea [facility] 02-08-2025 08:33-0400 Systolic blood pressure 126 mm[Hg] Beltran Bshara [facility] 02-08-2025 01:01-0400 PAIN LEVEL 0 {score} [facility] Bshara [facility] 02-07-2025 21:37-0400 PAIN LEVEL 0 {score} [facility]tr[facility] Bshara [facility] 02-07-2025 11:03-0400 PAIN LEVEL 0 {score} [facility]tr[facility] Bshara [facility] 02-07-2025 09:18-0400 PAIN LEVEL 1 {score} [facility] Bshara [facility] 02-07-2025 09:02-0400 Body temperature 97.3 [degF] [facility] Bshara [facility] 02-07-2025 09:02-0400 Diastolic blood pressure 72 mm[Hg] Beltrangriselda Chamorroa Ely [facility] 02-07-2025 09:02-0400 Heart rate 81 /min [facility] Remi [facility] 02-07-2025 09:02-0400 Oxygen saturation in Blood 97 % [facility] Ashtyna [facility] 02-07-2025 09:02-0400 Respiratory rate 17 /min [facility] Remi [facility] 02-07-2025 09:02-0400 Systolic blood pressure 131 mm[Hg] [facility]tr[facility] Ashtyna [facility] 02-07-2025 00:58-0400 PAIN LEVEL 0 {score} Beltrangriselda Chamorroa Carrillo Hutchison 02-06-2025 20:40-0400 PAIN LEVEL 0 {score} [facility] Remi Hutchison 02-06-2025 12:59-0400 PAIN LEVEL 0 {score} Adriana Hutchison 02-06-2025 08:08-0400 PAIN LEVEL 0 {score} Adriana Hutchison 02-06-2025 07:59-0400 Body temperature 97.5 [degF] [facility] Ashtyna Carrillo Hutchison 02-06-2025 07:59-0400 Diastolic blood pressure 75 mm[Hg] Beltrangriselda Chamorroa Ely Hutchison 02-06-2025 07:59-0400 Heart rate 77 /min Beltrangriselda Hutchison 02-06-2025 07:59-0400 Oxygen saturation in Blood 97 % [facility] Remi Hutchison 02-06-2025 07:59-0400 Respiratory rate 18 /min [facility] Ashtyna Carrillo Simmonsa 02-06-2025 07:59-0400 Systolic blood pressure 124 mm[Hg] [facility] Bshara [place] Hutchison 02-06-2025 01:01-0400 PAIN LEVEL 0 {score} [facility] Bsannettea [place] Hutchison 02-05-2025 21:25-0400 PAIN LEVEL 0 {score} [facility] Bsannettea Carrillo Simmonsa 02-05-2025 12:05-0400 PAIN LEVEL 0 {score} [facility] Bsannettea Carrillo Simmonsa 02-05-2025 12:04-0400 Body temperature 97.2 [degF] [facility] Ashtyna Carrillo Simmonsa 02-05-2025 12:04-0400 Diastolic blood pressure 72 mm[Hg] [facility] Ashtyna Ely Hutchison 02-05-2025 12:04-0400 Heart rate 70 /min [facility] Ashtyna Carrillo Hutchison 02-05-2025 12:04-0400 Oxygen saturation in Blood 97 % [facility] Bsannettea Carrillo Simmonsa 02-05-2025 12:04-0400 Respiratory rate 18 /min [facility] Ashtyna [place] Hutchison 02-05-2025 12:04-0400 Systolic blood pressure 122 mm[Hg] [facility] Bsannettea Carrillo Simmonsa 02-05-2025 09:36-0400 PAIN LEVEL 0 {score} [facility] Bshara [place] Hutchison 02-05-2025 09:34-0400 PAIN LEVEL 0 {score} [facility] Bshara [place] Hutchison 02-04-2025 23:29-0400 PAIN LEVEL 0 {score} [facility] Bsannettea [place] Hutchison 02-04-2025 17:52-0400 PAIN LEVEL 0 {score} [facility] Bshara [place] [facility] 02-04-2025 11:24-0400 PAIN LEVEL 0 {score} [facility] Bsannettea [place] Hutchison 02-04-2025 08:39-0400 PAIN LEVEL 0 {score} [facility] Bsannettea Carrillo Simmonsa 02-04-2025 08:38-0400 PAIN LEVEL 0 {score} [facility] Bshara [place] Hutchison 02-04-2025 08:07-0400 Body temperature 97.5 [degF] [facility] Bsannettea Carrillo Simmonsa 02-04-2025 08:07-0400 Diastolic blood pressure 79 mm[Hg] [facility] Bsannettea Ely Hutchison 02-04-2025 08:07-0400 Heart rate 72 /min [facility] Bsannettea Carrillo Simmonsa 02-04-2025 08:07-0400 Oxygen saturation in Blood 97 % [facility] Bsannettea [place] Hutchison 02-04-2025 08:07-0400 Respiratory rate 16 /min [facility] Bsannettea [place] [facility]ison 02-04-2025 08:07-0400 Systolic blood pressure 136 mm[Hg] [facility] Bshara [place] [facility]ison 02-03-2025 22:53-0400 PAIN LEVEL 0 {score} [facility] Bshara [place] Hutchison 02-03-2025 21:58-0400 Body temperature 98.3 [degF] [facility] Bshara [place] [facility] 02-03-2025 21:58-0400 Diastolic blood pressure 82 mm[Hg] [facility] Bshara Lindaid e Hutchison 02-03-2025 21:58-0400 Heart rate 76 /min [facility] Bshara Carrillo Simmonsa 02-03-2025 21:58-0400 Oxygen saturation in Blood 97 % [facility] Bshara Carrillo Simmonsa 02-03-2025 21:58-0400 Respiratory rate 16 /min [facility] Bsannettea Carrillo Hutchison 02-03-2025 21:58-0400 Systolic blood pressure 131 mm[Hg] [facility] Bshara Carrillo Simmonsa 02-03-2025 21:34-0400 PAIN LEVEL 0 {score} [facility] Bsannettea Carrillo Simmonsa 02-03-2025 09:27-0400 PAIN LEVEL 0 {score} [facility] Bsannettea Carrillo Hutchison 02-03-2025 09:26-0400 PAIN LEVEL 0 {score} [facility] Bsannettea Carrillo Hutchison 02-03-2025 08:28-0400 Body temperature 97.3 [degF] [facility] Bsannettea Carrillo Simmonsa 02-03-2025 08:28-0400 Diastolic blood pressure 75 mm[Hg] [facility] Bshara Lindaid e Hutchison 02-03-2025 08:28-0400 Heart rate 72 /min [facility] Bshara Carrillo Hutchison 02-03-2025 08:28-0400 Oxygen saturation in Blood 97 % [facility] Bshara Carrillo Hutchison 02-03-2025 08:28-0400 Respiratory rate 18 /min [facility] Bshara Carrillo Simmonsa 02-03-2025 08:28-0400 Systolic blood pressure 126 mm[Hg] [facility] Ashtyna Carrillo Hutchison 02-03-2025 01:51-0400 Body temperature 97.8 [degF] [facility] Ashtyna Carrillo Hutchison 02-03-2025 01:51-0400 Diastolic blood pressure 72 mm[Hg] [facility] Ashtyna Ely Hutchison 02-03-2025 01:51-0400 Heart rate 80 /min [facility] Ashtyna Carrillo Hutchison 02-03-2025 01:51-0400 Oxygen saturation in Blood 96 % [facility] Remi Hutchison 02-03-2025 01:51-0400 Respiratory rate 16 /min Beltrangriselda Hutchison 02-03-2025 01:51-0400 Systolic blood pressure 125 mm[Hg] [facility] Remi Hutchison 02-03-2025 00:37-0400 PAIN LEVEL 0 {score} [facility] Ashtyna Carrillo Hutchison 02-02-2025 21:21-0400 PAIN LEVEL 0 {score} [facility] Ashtyna Carrillo Hutchison 02-02-2025 12:30-0400 PAIN LEVEL 0 {score} [facility] Ashtyna Carrillo Hutchison 02-02-2025 08:11-0400 PAIN LEVEL 0 {score} [facility] Ashtyna Carrillo Hutchison 02-02-2025 08:10-0400 PAIN LEVEL 0 {score} [facility] Ashtyna Carrillo Hutchison 02-02-2025 07:49-0400 Body temperature 96.8 [degF] [facility] Ashtyna Carrillo Hutchison 02-02-2025 07:49-0400 Diastolic blood pressure 73 mm[Hg] [facility] Bsannettea Ely Simmonsa 02-02-2025 07:49-0400 Heart rate 69 /min [facility] Bsannettea Carrillo Simmonsa 02-02-2025 07:49-0400 Oxygen saturation in Blood 97 % [facility] Bsannettea Carrillo Hutchison 02-02-2025 07:49-0400 Respiratory rate 18 /min [facility] Bsannettea Carrillo Hutchison 02-02-2025 07:49-0400 Systolic blood pressure 129 mm[Hg] [facility] Bsannettea Carrillo Hutchison 02-02-2025 02:01-0400 PAIN LEVEL 0 {score} [facility] Bsannettea Carrillo Hutchison 02-01-2025 21:32-0400 PAIN LEVEL 0 {score} [facility] Bsannettea Carrillo Hutchison 02-01-2025 18:45-0400 Body temperature 97.2 [degF] [facility] Ashtyna Carrillo Hutchison 02-01-2025 18:45-0400 Diastolic blood pressure 72 mm[Hg] [facility] Bsannettea Ely Hutchison 02-01-2025 18:45-0400 Heart rate 72 /min [facility] Bsannettea Carrillo Hutchison 02-01-2025 18:45-0400 Oxygen saturation in Blood 97 % [facility] Bsannettea Carrillo Simmonsa 02-01-2025 18:45-0400 Respiratory rate 18 /min [facility] Bsannettea Carrillo Simmonsa 02-01-2025 18:45-0400 Systolic blood pressure 124 mm[Hg] [facility] Bshara Carrillo Hutchison 02-01-2025 14:21-0400 Body temperature 97.3 [degF] [facility] Ashtyna Carrillo Hutchison 02-01-2025 14:21-0400 Diastolic blood pressure 72 mm[Hg] [facility] Ashtyna Ely Hutchison 02-01-2025 14:21-0400 Heart rate 78 /min [facility] Ashtyna Carrillo Hutchison 02-01-2025 14:21-0400 Oxygen saturation in Blood 96 % [facility] Ashtyna Carrillo Hutchison 02-01-2025 14:21-0400 Respiratory rate 17 /min Beltrangriselda Chamorroa Carrillo Hutchison 02-01-2025 14:21-0400 Systolic blood pressure 128 mm[Hg] [facility] Ashtyna Carrillo Hutchison 02-01-2025 14:21-0400 PAIN LEVEL 0 {score} [facility] Ashtyna Carrillo Hutchison 02-01-2025 08:20-0400 PAIN LEVEL 0 {score} [facility] Ashtyna Carrillo Hutchison 02-01-2025 08:18-0400 PAIN LEVEL 0 {score} [facility] Ashtyna Carrillo Hutchison 01-31-2025 22:41-0400 PAIN LEVEL 0 {score} [facility] Ashtyna Carrillo Hutchison 01-31-2025 20:58-0400 PAIN LEVEL 0 {score} [facility] Ashtyna Carrillo Hutchison 01-31-2025 15:22-0400 Body temperature 97.3 [degF] [facility] Remi Hutchison 01-31-2025 15:22-0400 Diastolic blood pressure 60 mm[Hg] [facility] Bshara Ely Hutchison 01-31-2025 15:22-0400 Heart rate 72 /min [facility] Bsannettea Carrillo Hutchison 01-31-2025 15:22-0400 Oxygen saturation in Blood 97 % [facility] Bsannettea Carrillo Hutchison 01-31-2025 15:22-0400 Respiratory rate 16 /min [facility] Bsannettea Carrillo Hutchison 01-31-2025 15:22-0400 Systolic blood pressure 124 mm[Hg] [facility] Bsannettea Carrillo Hutchison 01-31-2025 12:24-0400 PAIN LEVEL 0 {score} [facility] Bsannettea Carrillo Hutchison 01-31-2025 08:19-0400 PAIN LEVEL 0 {score} [facility] Bsannettea Carrillo Hutchison 01-31-2025 08:17-0400 PAIN LEVEL 0 {score} [facility] Bsannettea Carrillo Hutchison 01-30-2025 23:29-0400 PAIN LEVEL 0 {score} [facility] Ashtyna Carrillo Hutchison 01-30-2025 23:04-0400 Body temperature 97.2 [degF] [facility] Ashtyna Carrillo Hutchison 01-30-2025 23:04-0400 Diastolic blood pressure 76 mm[Hg] [facility] Bsannettea Ely Hutchison 01-30-2025 23:04-0400 Heart rate 78 /min [facility] Bsannettea Carrillo Hutchison 01-30-2025 23:04-0400 Oxygen saturation in Blood 97 % [facility] Ashtyna Carrillo Hutchison 01-30-2025 23:04-0400 Respiratory rate 16 /min [facility] Bshara Carrillo Hutchison 01-30-2025 23:04-0400 Systolic blood pressure 122 mm[Hg] [facility] Bsannettea Carrillo Hutchison 01-30-2025 21:52-0400 Body temperature 97.8 [degF] [facility] Ashtyna Carrillo Hutchison 01-30-2025 21:52-0400 Diastolic blood pressure 77 mm[Hg] [facility] Bsannettea Ely Hutchison 01-30-2025 21:52-0400 Heart rate 84 /min [facility] Bsannettea Carrillo Hutchison 01-30-2025 21:52-0400 Oxygen saturation in Blood 96 % [facility] Ashtyna Carrillo Hutchison 01-30-2025 21:52-0400 Respiratory rate 17 /min [facility] Remi Hutchison 01-30-2025 21:52-0400 Systolic blood pressure 138 mm[Hg] [facility] Remi Hutchison 01-30-2025 21:36-0400 PAIN LEVEL 0 {score} Adriana Chamorroa Carrillo Hutchison 01-30-2025 08:52-0400 Body temperature 97.5 [degF] Beltrangriselda Hutchison 01-30-2025 08:52-0400 Diastolic blood pressure 79 mm[Hg] [facility] Ashtyna Ely Hutchison 01-30-2025 08:52-0400 Heart rate 72 /min [facility] Bsannettea Carrillo Hutchison 01-30-2025 08:52-0400 Oxygen saturation in Blood 97 % [facility] Remi Hutchison 01-30-2025 08:52-0400 Respiratory rate 16 /min [facility] Ashtyna Carrillo Simmonsa 01-30-2025 08:52-0400 Systolic blood pressure 134 mm[Hg] [facility] Bsannettea Little Browning Hutchison 01-30-2025 08:10-0400 PAIN LEVEL 0 {score} [facility] Bsannettea [place] Hutchison 01-30-2025 07:17-0400 PAIN LEVEL 0 {score} [facility] Ashtyna Carrillo Hutchison 01-30-2025 00:18-0400 PAIN LEVEL 0 {score} [facility] Ashtyna Carrillo Hutchison 01-29-2025 18:04-0400 PAIN LEVEL 0 {score} [facility] Ashtyna Carrillo Hutchison 01-29-2025 15:32-0400 PAIN LEVEL 0 {score} [facility] Ashtyna Carrillo Hutchison 01-29-2025 10:06-0400 Body temperature 96.8 [degF] [facility] Ashtyna Carrillo Hutchison 01-29-2025 09:32-0400 Body temperature 97.5 [degF] [facility] Ashtyna Carrillo Hutchison 01-29-2025 09:32-0400 Diastolic blood pressure 81 mm[Hg] [facility] Ashtyna Ely e Foster 01-29-2025 09:32-0400 Heart rate 82 /min [facility] Bsannettea [place] Hutchison 01-29-2025 09:32-0400 Oxygen saturation in Blood 97 % [facility] Ashtyna Carrillo Simmonsa 01-29-2025 09:32-0400 Respiratory rate 16 /min [facility] Ashtyna Carrillo Simmonsa 01-29-2025 09:32-0400 Systolic blood pressure 142 mm[Hg] [facility] Remi Hutchison 01-29-2025 08:32-0400 PAIN LEVEL 0 {score} [facility] Ashtyna Carrillo Hutchison 01-29-2025 05:48-0400 Body temperature 97.8 [degF] [facility] Remi Hutchison 01-29-2025 00:40-0400 PAIN LEVEL 0 {score} [facility] Remi Hutchison 01-28-2025 22:19-0400 Body temperature 98.3 [degF] [facility] Remi Hutchison 01-28-2025 22:19-0400 Diastolic blood pressure 84 mm[Hg] Adriana Chamorroa Ely Hutchison 01-28-2025 22:19-0400 Heart rate 82 /min [facility] Remi Hutchison 01-28-2025 22:19-0400 Oxygen saturation in Blood 98 % [facility] Remi Hutchison 01-28-2025 22:19-0400 Respiratory rate 18 /min Adriana Hutchison 01-28-2025 22:19-0400 Systolic blood pressure 140 mm[Hg] [facility] Remi Hutchison 01-28-2025 21:54-0400 Body temperature 98.3 [degF] [facility] Remi Hutchison 01-28-2025 17:50-0400 PAIN LEVEL 0 {score} [facility] Remi Hutchison 01-28-2025 13:27-0400 Oxygen saturation in Blood 93 % [facility] Remi Hutchison 01-28-2025 13:27-0400 Respiratory rate 16 /min Adriana Hutchison 01-28-2025 13:25-0400 Diastolic blood pressure 78 mm[Hg] Adriana Alicia 01-28-2025 13:25-0400 Heart rate 78 /min Adriana Hutchison 01-28-2025 13:25-0400 Systolic blood pressure 132 mm[Hg] Adriana Hutchison 01-28-2025 13:24-0400 Body height 180.34 cm [facility] Remi Hutchison 01-28-2025 13:24-0400 Body temperature 97.2 [degF] Adriana Hutchison 01-28-2025 13:22-0400 Body weight 85.28 kg Adriana Hutchison 01-24-2025 13:00-0400 SaO2% (BldA) [Mass fraction] 99 % [facility] Comment on above: Order Comment: Specimen Type: ARTERIAL B LOOD SPECIMENOrdering Facility: [facility] Address: [address] [place] [id number] Performed By: #### A [facility] ####[facility] RESPIRATORYCLIA [id number] [id number] [place] [id number] 01-06-2025 13:02-0400 Body mass index (BMI) [Ratio] 26.1 kg/m2 July Pierce MD Work Phone: [facility] 01-06-2025 13:02-0400 Body temperature 97.9 [degF] July Pierce MD Work Phone: [facility] 01-06-2025 13:02-0400 Body weight 82.5 kg July Pierce MD Work Phone: [facility] 01-06-2025 13:02-0400 Diastolic blood pressure 68 mm[Hg] July degroot MD Work Phone: [facility] 01-06-2025 13:02-0400 Heart rate 107 /min July Pierce MD Work Phone: [facility] 01-06-2025 13:02-0400 Respiratory rate 16 /min July Pierce MD Work Phone: [facility] 01-06-2025 13:02-0400 SaO2% (BldA) [Mass fraction] 98 % July Pierce MD Work Phone: [facility] 01-06-2025 13:02-0400 Systolic blood pressure 106 mm[Hg] July Pierce MD Work Phone: [facility] 12-29-2024 08:41-0400 Body height 177.8 cm Pola Garcia MD Work Phone: [facility] 12-29-2024 08:41-0400 Body mass index (BMI) [Ratio] 26.4 kg/m2 Pola Garcia MD Work Phone: [facility] 12-29-2024 08:41-0400 Body weight 83.46 kg Pola Garcia MD Work Phone: [facility] 12-29-2024 08:41-0400 Diastolic blood pressure 57 mm[Hg] Pola moore MD Work Phone: [facility] 12-29-2024 08:41-0400 Heart rate 104 /min Pola Garcia MD Work Phone: [facility] 12-29-2024 08:41-0400 SaO2% (BldA) [Mass fraction] 100 % Pola Garcia MD Work Phone: [facility] 12-29-2024 08:41-0400 Systolic blood pressure 91 mm[Hg] Pola Garcia MD Work Phone: [facility] 12-23-2024 13:01-0400 Body mass index (BMI) [Ratio] 27.55 kg/m2 July Pierce MD Work Phone: [facility] 12-23-2024 13:01-0400 Body temperature 98.29 [degF] July Pierce MD Work Phone: [facility] 12-23-2024 13:01-0400 Body weight 87.1 kg July Pierce MD Work Phone: [facility] 12-23-2024 13:01-0400 Diastolic blood pressure 75 mm[Hg] July degroot MD Work Phone: [facility] 12-23-2024 13:01-0400 Heart rate 105 /min July Pierce MD Work Phone: [facility] 12-23-2024 13:01-0400 Respiratory rate 16 /min July Pierce MD Work Phone: [facility] 12-23-2024 13:01-0400 SaO2% (BldA) [Mass fraction] 99 % July Pierce MD Work Phone: [facility] 12-23-2024 13:01-0400 Systolic blood pressure 118 mm[Hg] July Pierce MD Work Phone: [facility] 11-26-2024 14:59-0400 Body height 177.8 cm Sedrick Roberts MD Work Phone: [facility] 11-26-2024 14:59-0400 Body mass index (BMI) [Ratio] 28.91 kg/m2 Sedrick Roberts MD Work Phone: [facility] 11-26-2024 14:59-0400 Body weight 91.4 kg Sedrick Roberts MD Work Phone: [facility] 11-26-2024 14:59-0400 Diastolic blood pressure 72 mm[Hg] Sedrick Roberts MD Work Phone: [facility] 11-26-2024 14:59-0400 Heart rate 100 /min Sedrick Roberts MD Work Phone: [facility] 11-26-2024 14:59-0400 Respiratory rate 16 /min Sedrick Roberts MD Work Phone: [facility] 11-26-2024 14:59-0400 SaO2% (BldA) [Mass fraction] 99 % Sedrick Roberts MD Work Phone: [facility] 11-26-2024 14:59-0400 Systolic blood pressure 115 mm[Hg] Sedrick Roberts MD Work Phone: [facility] 09-10-2024 14:26-0400 Body height 177.8 cm Manda Finelli DO Work Phone: [facility] 09-10-2024 14:26-0400 Body mass index (BMI) [Ratio] 29.57 kg/m2 Manda Finelli DO Work Phone: [facility] 09-10-2024 14:26-0400 Body weight 93.49 kg Manda Finelli DO Work Phone: [facility] 09-10-2024 14:26-0400 Diastolic blood pressure 71 mm[Hg] Manda Finelli DO Work Phone: [facility] 09-10-2024 14:26-0400 Heart rate 89 /min Manda Finelli DO Work Phone: [facility] 09-10-2024 14:26-0400 SaO2% (BldA) [Mass fraction] 100 % Manda Finelli DO Work Phone: [facility] 09-10-2024 14:26-0400 Systolic blood pressure 108 mm[Hg] Manda Finelli DO Work Phone: [facility] 08-05-2024 08:38-0500 Body mass index (BMI) [Ratio] 29.83 kg/m2 Pola Garcia MD Work Phone: [facility] 08-05-2024 08:38-0500 Body weight 94.3 kg Pola Garcia MD Work Phone: [facility] 08-05-2024 08:38-0500 Diastolic blood pressure 74 mm[Hg] Pola moore MD Work Phone: [facility] 08-05-2024 08:38-0500 Heart rate 86 /min Pola Garcia MD Work Phone: [facility] 08-05-2024 08:38-0500 Systolic blood pressure 135 mm[Hg] Pola Garcia MD Work Phone: [facility] 07-08-2024 11:08-0500 Body mass index (BMI) [Ratio] 28.27 kg/m2 Samm Yamini DO Work Phone: [facility] 07-08-2024 11:08-0500 Body weight 89.36 kg Samm Yamini DO Work Phone: [facility] 07-08-2024 11:08-0500 Diastolic blood pressure 75 mm[Hg] Samm Yamini DO Work Phone: [facility] 07-08-2024 11:08-0500 Heart rate 96 /min Samm Yamini DO Work Phone: [facility] 07-08-2024 11:08-0500 SaO2% (BldA) [Mass fraction] 100 % Samm Yamini DO Work Phone: [facility] 07-08-2024 11:08-0500 Systolic blood pressure 114 mm[Hg] Samm Yamini DO Work Phone: [facility] 05-29-2024 12:17-0500 Body temperature 97.5 [degF] Yusra Rola DO Work Phone: [facility] 05-29-2024 12:17-0500 Diastolic blood pressure 74 mm[Hg] Yusra Umbel DO Work Phone: [facility] 05-29-2024 12:17-0500 Respiratory rate 14 /min Yusra Umbel DO Work Phone: [facility] 05-29-2024 12:17-0500 SaO2% (BldA) [Mass fraction] 99 % Yusra Umbel DO Work Phone: [facility] 05-29-2024 12:17-0500 Systolic blood pressure 115 mm[Hg] Yusra Umbel D O Work Phone: [facility] 05-29-2024 10:35-0500 Body height 177.8 cm Yusra Umbel DO Work Phone: [facility] 05-29-2024 10:35-0500 Body mass index (BMI) [Ratio] 29.27 kg/m2 Yusra Umbel DO Work Phone: [facility] 05-29-2024 10:35-0500 Body weight 92.53 kg Yusra Umbel DO Work Phone: [facility] 05-07-2024 17:49-0500 Body mass index (BMI) [Ratio] 29.29 kg/m2 Bruno Villatoro APRN.[employer] Work Phone: [facility] 05-07-2024 17:49-0500 Body temperature 97.81 [degF] Bruno Villatoro APRN.[employer] Work Phone: [facility] 05-07-2024 17:49-0500 Body weight 92.6 kg Bruno Villatoro APRN.[employer] Work Phone: [facility] 05-07-2024 17:49-0500 Diastolic blood pressure 81 mm[Hg] Bruno Villatoro APRN.[employer] Work Phone: [facility] 05-07-2024 17:49-0500 Heart rate 78 /min Bruno Villatoro APRN.[employer] Work Phone: [facility] 05-07-2024 17:49-0500 Respiratory rate 16 /min Bruno Villatoro APRN.[employer] Work Phone: [facility] 05-07-2024 17:49-0500 SaO2% (BldA) [Mass fraction] 99 % Bruno Villatoro APRN.[employer] Work Phone: [facility] 05-07-2024 17:49-0500 Systolic blood pressure 132 mm[Hg] Bruno Villatoro APRN.[employer] Work Phone: [facility] 05-02-2024 11:20-0500 Diastolic blood pressure 73 mm[Hg] Lesly Bender MD Work Phone: [facility] 05-02-2024 11:20-0500 Heart rate 72 /min Lesly Bender MD Work Phone: [facility] 05-02-2024 11:20-0500 Respiratory rate 14 /min Lesly Bender MD Work Phone: [facility] 05-02-2024 11:20-0500 SaO2% (BldA) [Mass fraction] 99 % Lesly Bender MD Work Phone: [facility] 05-02-2024 11:20-0500 Systolic blood pressure 142 mm[Hg] Lesly Bender MD Work Phone: [facility] 05-02-2024 10:28-0500 Body height 177.8 cm Lesly Bender MD Work Phone: [facility] 05-02-2024 10:28-0500 Body mass index (BMI) [Ratio] 28.12 kg/m2 Lesly Bender MD Work Phone: [facility] 05-02-2024 10:28-0500 Body weight 88.91 kg Lesly Bender MD Work Phone: [facility] 04-23-2024 13:47-0500 Body mass index (BMI) [Ratio] 27.84 kg/m2 Samm Persaudcini DO Work Phone: [facility] 04-23-2024 13:47-0500 Body weight 88.91 kg Samm Yamini DO Work Phone: [facility] 04-23-2024 13:47-0500 Diastolic blood pressure 60 mm[Hg] Samm Colindresi DO Work Phone: [facility] 04-23-2024 13:47-0500 Heart rate 77 /min Samm Colindresi DO Work Phone: [facility] 04-23-2024 13:47-0500 SaO2% (BldA) [Mass fraction] 99 % Samm Kc DO Work Phone: [facility] 04-23-2024 13:47-0500 Systolic blood pressure 112 mm[Hg] Samm Colindresi DO Work Phone: [facility] 03-19-2024 14:30-0400 Body mass index (BMI) [Ratio] 29.09 kg/m2 Sunshine Duckworth [employer] Work Phone: [facility] 03-19-2024 14:30-0400 Body weight 92.9 kg Sunshine Duckworth [employer] Work Phone: [facility] 03-19-2024 14:30-0400 Diastolic blood pressure 60 mm[Hg] Sunshine Duckworth [employer] Work Phone: [facility] 03-19-2024 14:30-0400 Heart rate 76 /min Sunshine Duckworth [employer] Work Phone: [facility] 03-19-2024 14:30-0400 Systolic blood pressure 120 mm[Hg] Sunshine Duckworth [employer] Work Phone: [facility] 03-17-2024 13:22-0400 Diastolic blood pressure 67 mm[Hg] Jatin Garrett MD Work Phone: [facility] 03-17-2024 13:22-0400 Heart rate 68 /min Jatin Garrett MD Work Phone: [facility] 03-17-2024 13:22-0400 Systolic blood pressure 132 mm[Hg] Jatin Garrett MD Work Phone: [facility] 02-08-2024 11:18-0400 Body mass index (BMI) [Ratio] 28.5 kg/m2 Sammi Velarde [employer] Work Phone: [facility] 02-08-2024 11:18-0400 Body weight 91 kg Sammi Velarde [employer] Work Phone: [facility] 02-08-2024 11:18-0400 Diastolic blood pressure 67 mm[Hg] Sammi garcia [employer] Work Phone: [facility] 02-08-2024 11:18-0400 Heart rate 81 /min Sammi Velarde [employer] Work Phone: [facility] 02-08-2024 11:18-0400 Systolic blood pressure 125 mm[Hg] Sammi Velarde [employer] Work Phone: [facility] 01-09-2024 14:52-0400 Body mass index (BMI) [Ratio] 28.84 kg/m2 Sedrick Roberts MD Work Phone: [facility] 01-09-2024 14:52-0400 Body weight 92.1 kg Sedrick Roberts MD Work Phone: [facility] 01-09-2024 14:52-0400 Diastolic blood pressure 83 mm[Hg] Sedrick Roberts MD Work Phone: [facility] 01-09-2024 14:52-0400 Heart rate 81 /min Sedrick Roberts MD Work Phone: [facility] 01-09-2024 14:52-0400 SaO2% (BldA) [Mass fraction] 98 % Sedrick Roberts MD Work Phone: [facility] 01-09-2024 14:52-0400 Systolic blood pressure 140 mm[Hg] Sedrick Roberts MD Work Phone: [facility] 01-04-2024 15:18-0400 Body mass index (BMI) [Ratio] 28.9 kg/m2 Toni Duran [employer] Work Phone: [facility] 01-04-2024 15:18-0400 Body temperature 98.1 [degF] Toni Duran APRN.[employer] Work Phone: [facility] 01-04-2024 15:18-0400 Body weight 92.3 kg Toni Duran APRN.[employer] Work Phone: [facility] 01-04-2024 15:18-0400 Diastolic blood pressure 74 mm[Hg] Toni Duran APRN.[employer] Work Phone: [facility] 01-04-2024 15:18-0400 Heart rate 76 /min Toni Duran APRN.[employer] Work Phone: [facility] 01-04-2024 15:18-0400 SaO2% (BldA) [Mass fraction] 100 % Toni Duran APRN.[employer] Work Phone: [facility] 01-04-2024 15:18-0400 Systolic blood pressure 124 mm[Hg] Toni Duran APRN.[employer] Work Phone: [facility] 12-26-2023 07:54-0400 Diastolic blood pressure 72 mm[Hg] Sammi Lock MD Work Phone: [facility] 12-26-2023 07:54-0400 Heart rate 83 /min Sammi Mccrary MD Work Phone: [facility] 12-26-2023 07:54-0400 Systolic blood pressure 128 mm[Hg] Sammi Crook MD Work Phone: [facility] 12-17-2023 15:47-0400 Body mass index (BMI) [Ratio] 30.4 kg/m2 Camille Benitez [employer] Work Phone: [facility] 12-17-2023 15:47-0400 Body temperature 98.01 [degF] Camille Benitez [employer] Work Phone: [facility] 12-17-2023 15:47-0400 Body weight 97.07 kg Camille Drouhard [employer] Work Phone: [facility] 12-17-2023 15:47-0400 Diastolic blood pressure 80 mm[Hg] Camille Drouhard [employer] Work Phone: [facility] 12-17-2023 15:47-0400 Heart rate 67 /min Camille Drouhard [employer] Work Phone: [facility] 12-17-2023 15:47-0400 Respiratory rate 16 /min Camille Drouhard [employer] Work Phone: [facility] 12-17-2023 15:47-0400 SaO2% (BldA) [Mass fraction] 99 % Camille Drouhard [employer] Work Phone: [facility] 12-17-2023 15:47-0400 Systolic blood pressure 134 mm[Hg] Camille Drouhard [employer] Work Phone: [facility] 11-08-2023 10:52-0400 Body mass index (BMI) [Ratio] 30.41 kg/m2 Taiwo Lee MD Work Phone: [facility] 11-08-2023 10:52-0400 Body weight 97.1 kg Taiwo Lee MD Work Phone: [facility] 11-08-2023 10:52-0400 Diastolic blood pressure 76 mm[Hg] Taiwo Lee MD Work Phone: [facility] 11-08-2023 10:52-0400 Heart rate 69 /min Taiwo Lee MD Work Phone: [facility] 11-08-2023 10:52-0400 Systolic blood pressure 131 mm[Hg] Taiwo Lee MD Work Phone: [facility] 08-09-2023 11:17-0500 Diastolic blood pressure 75 mm[Hg] Lise Corado MD, PhD Work Phone: [facility] 08-09-2023 11:17-0500 Respiratory rate 18 /min Lise Corado MD, PhD Work Phone: [facility] 08-09-2023 11:17-0500 SaO2% (BldA) [Mass fraction] 97 % Lise Corado MD, PhD Work Phone: [facility] 08-09-2023 11:17-0500 Systolic blood pressure 127 mm[Hg] Lise Corado MD, PhD Work Phone: [facility] 08-09-2023 10:45-0500 Heart rate 66 /min Lise Corado MD, PhD Work Phone: [facility] 08-09-2023 09:00-0500 Body temperature 97.2 [degF] Lise Corado MD, PhD Work Phone: [facility] 01-30-2023 12:30-0400 Body weight 107.14 kg Taiwo Lee MD Work Phone: [facility] 01-30-2023 12:30-0400 Diastolic blood pressure 79 mm[Hg] Taiwo Lee MD Work Phone: [facility] 01-30-2023 12:30-0400 Heart rate 79 /min Taiwo Lee MD Work Phone: [facility] 01-30-2023 12:30-0400 Systolic blood pressure 116 mm[Hg] Taiwo Lee MD Work Phone: [facility] 12-15-2022 13:16-0400 Body height 178.6 cm Priscilla Salas MD Work Phone: [facility] 12-15-2022 13:16-0400 Body weight 109.77 kg Priscilla Salas MD Work Phone: [facility] 12-15-2022 13:16-0400 Diastolic blood pressure 58 mm[Hg] Priscilla Salas MD Work Phone: [facility] 12-15-2022 13:16-0400 Heart rate 67 /min Priscilla Salas MD Work Phone: [facility] 12-15-2022 13:16-0400 Systolic blood pressure 116 mm[Hg] Priscilla Salas MD Work Phone: [facility] 09-22-2022 16:35-0400 Body height 180.3 cm Samm Yamini DO Work Phone: [facility] 09-22-2022 16:35-0400 Body weight 108.86 kg Samm Yamini DO Work Phone: [facility] 09-22-2022 16:35-0400 Diastolic blood pressure 68 mm[Hg] Samm Yamini DO Work Phone: [facility] 09-22-2022 16:35-0400 Heart rate 82 /min Samm Yamini DO Work Phone: [facility] 09-22-2022 16:35-0400 SaO2% (BldA) [Mass fraction] 95 % Samm Yamini DO Work Phone: [facility] 09-22-2022 16:35-0400 Systolic blood pressure 110 mm[Hg] Samm Yamini DO Work Phone: [facility] 08-02-2022 10:31-0500 Body height 180.3 cm Sedrick Roberts MD Work Phone: [facility] 08-02-2022 10:31-0500 Body weight 113.04 kg Sedrick Roberts MD Work Phone: [facility] 08-02-2022 10:31-0500 Diastolic blood pressure 85 mm[Hg] Sedrick Roberts MD Work Phone: [facility] 08-02-2022 10:31-0500 Heart rate 91 /min Sedrick Roberts MD Work Phone: [facility] 08-02-2022 10:31-0500 SaO2% (BldA) [Mass fraction] 98 % Sedrick Roberts MD Work Phone: [facility] 08-02-2022 10:31-0500 Systolic blood pressure 133 mm[Hg] Sedrick Roberts MD Work Phone: [facility] 04-12-2022 10:39-0400 Body height 180.3 cm Samm Yamini DO Work Phone: [facility] 04-12-2022 10:39-0400 Body weight 110.22 kg Samm Yamini DO Work Phone: [facility] 04-12-2022 10:39-0400 Diastolic blood pressure 74 mm[Hg] Samm Yamini DO Work Phone: [facility] 04-12-2022 10:39-0400 Heart rate 80 /min Samm Yamini DO Work Phone: [facility] 04-12-2022 10:39-0400 SaO2% (BldA) [Mass fraction] 98 % Samm Yamini DO Work Phone: [facility] 04-12-2022 10:39-0400 Systolic blood pressure 130 mm[Hg] Samm Yamini DO Work Phone: [facility] 01-30-2022 11:34-0400 Body height 180.3 cm Cornelio Persaud MD Work Phone: [facility] 01-30-2022 11:34-0400 Body weight 107.5 kg Cornelio Persaud MD Work Phone: [facility] 01-30-2022 11:34-0400 Diastolic blood pressure 80 mm[Hg] Cornelio Persaud MD Work Phone: [facility] 01-30-2022 11:34-0400 Heart rate 80 /min Cornelio Persaud MD Work Phone: [facility] 01-30-2022 11:34-0400 Systolic blood pressure 122 mm[Hg] Cornelio Persaud MD Work Phone: [facility] 12-21-2021 09:35-0400 Body weight 106.59 kg Sedrick Roberts MD Work Phone: [facility] 12-21-2021 09:35-0400 Diastolic blood pressure 66 mm[Hg] Sedrick Roberst MD Work Phone: [facility] 12-21-2021 09:35-0400 Heart rate 82 /min Sedrick Roberts MD Work Phone: [facility] 12-21-2021 09:35-0400 SaO2% (BldA) [Mass fraction] 96 % Sedrick Roberts MD Work Phone: [facility] 12-21-2021 09:35-0400 Systolic blood pressure 129 mm[Hg] Sedrick Roberts MD Work Phone: [facility] 11-11-2021 14:02-0400 Body height 177 cm Michael Chelsiei DO Work Phone: [facility] 11-11-2021 14:02-0400 Body temperature 98.1 [degF] Michael Masci DO Work Phone: [facility] 11-11-2021 14:02-0400 Body weight 105.92 kg Michael Masci DO Work Phone: [facility] 11-11-2021 14:02-0400 Diastolic blood pressure 69 mm[Hg] Michael Masci DO Work Phone: [facility] 11-11-2021 14:02-0400 Heart rate 88 /min Michael Masci DO Work Phone: [facility] 11-11-2021 14:02-0400 SaO2% (BldA) [Mass fraction] 96 % Michael Masci DO Work Phone: [facility] 11-11-2021 14:02-0400 Systolic blood pressure 124 mm[Hg] Michael Masci DO Work Phone: [facility] 10-25-2021 14:47-0400 Body height 180.3 cm Ramos Erwin MD Work Phone: [facility] 10-25-2021 14:47-0400 Body weight 103.42 kg Ramos Erwin MD Work Phone: [facility] 10-25-2021 14:47-0400 Diastolic blood pressure 69 mm[Hg] Ramos Erwin MD Work Phone: [facility] 10-25-2021 14:47-0400 Heart rate 88 /min Ramos Erwin MD Work Phone: [facility] 10-25-2021 14:47-0400 SaO2% (BldA) [Mass fraction] 96 % Ramos Erwin MD Work Phone: [facility] 10-25-2021 14:47-0400 Systolic blood pressure 136 mm[Hg] Ramos Erwin MD Work Phone: [facility] 10-12-2021 10:11-0400 Body height 180.3 cm Cornelio Persaud MD Work Phone: [facility] 10-12-2021 10:11-0400 Body weight 103.69 kg Cornelio Persaud MD Work Phone: [facility] 10-12-2021 10:11-0400 Diastolic blood pressure 74 mm[Hg] Cornelio Persaud MD Work Phone: [facility] 10-12-2021 10:11-0400 Heart rate 95 /min Cornelio Persaud MD Work Phone: [facility] 10-12-2021 10:11-0400 SaO2% (BldA) [Mass fraction] 100 % Cornelio Persaud MD Work Phone: [facility] 10-12-2021 10:11-0400 Systolic blood pressure 112 mm[Hg] Cornelio Persaud MD Work Phone: [facility] Encounters Encounter Date Encounter Type Care Provider Facility Start: 04-08-2025 End: 04-08-2025 Evaluation and management of inpatient FAB Arauz ANUPAMA Facility:[facility] Start: 04-01-2025 End: 04-21-2025 Evaluation and management of inpatient [facility] Facility:[facility] Start: 03-30-2025 End: 03-30-2025 ambulatory [facility] Facility:[facility] Start: 03-16-2025 End: 03-16-2025 ambulatory [facility] Facility:[facility] Start: 03-10-2025 End: 03-10-2025 ambulatory [facility] Facility:[facility] Start: 03-05-2025 End: 03-05-2025 ambulatory [facility] Facility:[facility] Start: 02-23-2025 End: 02-23-2025 Follow-up encounter Norah Candelario MD Work Phone: Internal Medicine [facility] Start: 02-23-2025 End: 02-23-2025 ambulatory [facility] Facility:[facility] Start: 02-20-2025 End: 02-20-2025 Telephone encounter Neyda Velarde RN Hematology/Oncology Start: 02-20-2025 End: 02-20-2025 [facility] Facility:[facility] Start: 02-20-2025 End: 02-20-2025 Office outpatient visit 15 minutes Norah Candelario MD Work Phone: Internal Medicine [facility] Comment on above: Petechiae (Primary D x) Start: 02-19-2025 End: 02-19-2025 Telephone encounter July Pierce MD Work Phone: Hematology/Oncology Comment on above: Patient Question Start: 02-18-2025 End: 02-18-2025 Telephone encounter Beth STOVER Work Phone: Hematology/Oncology Start: 02-17-2025 End: 02-17-2025 [...] ambulatory Samm Kc DO Work Phone: [email or web address] Comment on above: Allied Health Visit (Medication Adherence Outreach/) Start: 02-11-2025 End: 02-11-2025 Telephone encounter Samm Kc DO Work Phone: [facility] Comment on above: Orders Start: 02-11-2025 End: 02-13-2025 ambulatory Nga Deras MA Work Phone: Internal Medicine Comment on above: Started SNF Discharg e Initial Outreach (Week 1) for Post Acute Care Start: 02-11-2025 End: 02-11-2025 Office outpatient visit 25 minutes Samm Kc DO Work Phone: [facility] Comment on above: 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); COVID-19; Zinc deficiency; Chronic insomnia; Benign prostatic hyperplasia without lower urinary tract symptoms Start: 02-10-2025 End: 02-13-2025 Patient Outreach Mer Leon RN Work Phone: [employer] Comment on above: Transition Of Care ( Chart review) Mantle cell lymphoma , unspecified body region (HCC) (Primary Dx); Autoimmune hemolytic anemia (HCC); At risk for infection due to immunosuppression Patient Update Start: 02-06-2025 End: 02-06-2025 Telemedicine consultation with patient Tarun Alicia LISA Work Phone: [facility] Start: 02-06-2025 End: 02-06-2025 ambulatory Tarun Ravin BUSTILLOSINSTALLER MOLDING AND TRIM Work Phone: [facility] Comment on above: Generalized weakness (Primary Dx); Mantle cell lymphoma, unspecified body region (HCC); COVID-19; Dementia with behavioral disturbance (HCC); Autoimmune hemolytic anemia, unspecified (HCC) Start: 02-03-2025 End: 02-03-2025 ambulatory Rowena Elizabeth APRN.CNP Work Phone: [facility] Comment on above: Generalized weakness (Primary Dx); Mantle cell lymphoma, unspecified body region (HCC); COVID-19; Dementia with behavioral disturbance (HCC); Autoimmune hemolytic anemia, unspecified (HCC) Start: 02-03-2025 End: 02-03-2025 Telemedicine consultation with patient Rowena Elizabeth APRN.INSTALLER [employer]OLDING [employer] Work Phone: [facility] Start: 01-29-2025 End: 01-29-2025 Patient encounter procedure Samm Kc DO Work Phone: [facility] Comment on above: Population Health Na vigation Outreach ([facility] ) Start: 01-29-2025 End: 01-29-2025 Telemedicine consultation with patient Rowena Elizabeth APRN.[employer] Work Phone: [facility] Start: 01-29-2025 End: 02-09-2025 ambulatory Samm Persaudcini DO Work Phone: [facility] Comment on above: Generalized weakness (Primary Dx); COVID-19; Dementia with behavioral disturbance (HCC); Autoimmune hemolytic anemia, unspecified (HCC); Mantle cell lymphoma, unspecified body region (HCC) Start: 01-28-2025 End: 02-08-2025 Evaluation and management of inpatient Adriana Hutchison Start: 01-26-2025 End: 01-26-2025 Telephone encounter Samm Kc DO Work Phone: [facility] Comment on above: Insurance Authorizat ion (Blood-Glucose Meter,Continuous (FREESTYLE YESSENIA 3 READER) [facility] Appointment Start: 01-24-2025 End: 01-28-2025 Evaluation and management of inpatient SAMM YAMINI Facility:[facility] Start: 01-23-2025 End: 01-23-2025 ambulatory Samm Persaudcini DO Work Phone: [facility] Comment on above: Jaundice Start: 01-22-2025 ambulatory SAMM PERSAUDCINI Facilit y:[facility] Start: 01-22-2025 End: 01-22-2025 Subsequent hospital visit by physician Petct4 Work Phone: Molecular Imaging Comment on above: Mantle cell lymphoma , unspecified body region (HCC) [C83.10] Start: 01-20-2025 End: 01-27-2025 Telephone encounter Samm Kc DO Work Phone: [facility] Comment on above: Orders Start: 01-19-2025 End: 01-19-2025 ambulatory CARSON BARR Facility:[facility] Start: 01-19-2025 End: 01-19-2025 Subsequent hospital visit by physician Carson Barr MD Work Phone: [facility] Radiology Comment on above: Localized enlarged l ymph nodes [R59.0] Start: 01-15-2025 End: 01-23-2025 Telephone encounter Samm Kc DO Work Phone: [facility] Comment on above: request [place] azael Casas 3 Start: 01-14-2025 End: 01-14-2025 ambulatory [facility] Facility:[facility] Start: 01-12-2025 End: 01-13-2025 Telephone encounter Vannesa Wu LPN [facility] Comment on above: Home Care (Confirmat ion Call) Home Care; Orders Start: 01-10-2025 End: 01-12-2025 Evaluation and management of inpatient [facility] Facility:[facility] Start: 01-08-2025 End: 01-08-2025 ambulatory Vy Houston RN Work Phone: [employer] Start: 01-08-2025 End: 01-08-2025 Patient encounter procedure Vy Houston RN Work Phone: [employer] Comment on above: Transition Of Care Start: 01-08-2025 End: 01-09-2025 Telephone encounter Rakel Briggs LPN [facility] Comment on above: Home Care (Follow fo r [facility]) Appointment Start: 01-07-2025 End: 01-07-2025 ambulatory Blank Burroughs RNcoal chemist/Oncology Comment on above: Recheck Start: 01-06-2025 End: 01-10-2025 Evaluation and management of inpatient [facility] Facility:[facility] Start: 01-06-2025 End: 01-06-2025 Patient encounter procedure Marti Garcia APRN.[employer] Work Phone: Hematology/Oncology Start: 01-06-2025 End: 01-06-2025 ambulatory Lilli Thomas RN NURSE BLOW MOLDING MACHINE OPERATOR Comment on above: Hypotension Autoimmune hemolytic anemia (HCC) (Primary Dx) High Blood Sugar Autoimmune hemolytic anemia (HCC) (Primary Dx); Localized enlarged lymph nodes; Splenomegaly; AVM (arteriovenous malformation) of duodenum, acquired; TONA (acute kidney injury) Start: 01-05-2025 End: 01-05-2025 Telephone encounter Samm Kc DO Work Phone: [facility] Comment on above: Orders Start: 12-29-2024 End: 12-30-2024 Follow-up encounter Karol Rodriguez APRN.[employer] Work Phone: [facility] Comment on above: Results Start: 12-29-2024 End: 12-29-2024 ambulatory [facility] Facility:[facility] Start: 12-29-2024 End: 12-29-2024 Office outpatient [...] Start: 12-27-2024 End: 12-27-2024 ambulatory JULY PIERCE Facility:[facility] Start: 12-27-2024 End: 12-27-2024 Subsequent hospital visit by physician [facility] Radiology Comment on above: Localized enlarged l ymph nodes [R59.0] Start: 12-25-2024 End: 12-25-2024 ambulatory MICHELLE MAY Not Available Start: 12-23-2024 End: 12-23-2024 Patient encounter procedure July Pierce MD Work Phone: Hematology/Oncology Start: 12-23-2024 End: 12-23-2024 ambulatory July Pierce MD Work Phone: Hematology/Oncology Comment on above: Autoimmune hemolytic anemia (HCC) (Primary Dx); Localized enlarged lymph nodes Start: 12-10-2024 ambulatory [facility] Facilit y:[facility] Start: 12-06-2024 Evaluation and manag ement of inpatient DEANNE BUTTERFIELD MD Facility:[id number] Start: 12-06-2024 End: 12-06-2024 ambulatory Rowena Galvan RN Work Phone: NURSE BLOW MOLDING MACHINE OPERATOR Start: 12-06-2024 End: 12-06-2024 Patient encounter procedure Rowena Galvan RN Work Phone: NURSE BLOW MOLDING MACHINE OPERATOR Comment on above: Clinical Update Start: 11-26-2024 End: 11-26-2024 Patient encounter procedure Sedrick Roberts MD Work Phone: Endocrinology Comment on above: Type 2 diabetes kev itus without complication, without long- term current use of insulin (HCC) (Primary Dx) Start: 11-26-2024 End: 11-26-2024 ambulatory [facility] Facility:[facility] Start: 11-26-2024 End: 12-04-2024 Telephone encounter Sedrick Roberts MD Work Phone: Endocrinology Comment on above: Orders Start: 11-06-2024 End: 11-06-2024 ambulatory Tu Pickard MA [facility] Start: 11-06-2024 End: 11-06-2024 Patient encounter procedure Tu Pickard MA [facility] Comment on above: Population Health Na vigation Outreach ([facility]) Start: 10-26-2024 End: 10-26-2024 Emergency department patient visit [facility] Facility:[id number] Start: 10-08-2024 End: 10-09-2024 Refill Sammi Velarde APRN.CNP Work Phone: Neurology Comment on above: Refill Request Start: 10-03-2024 End: 10-06-2024 Refill Pola Garcia MD Work Phone: Geriatrics Comment on above: Refill Request Start: 09-11-2024 End: 09-11-2024 ambulatory [facility] Facility:[facility] Start: 09-11-2024 End: 09-11-2024 Patient encounter procedure El Retana DPM Work Phone: Podiatry Comment on above: Pain due to onychomy cosis of toenails of both feet (Primary Dx); Diabetic polyneuropathy associated with type 2 diabetes mellitus (HCC) Start: 09-10-2024 End: 09-10-2024 ambulatory [facility] Facility:[facility] Start: 09-10-2024 End: 09-10-2024 Office consultation new/estab patient 30 min Manda Velasquez DO Work Phone: General Surgery Comment on above: Abnormal findings on examination of gastrointestinal tract (Primary Dx); History of colonic polyps; Diarrhea, unspecified type Start: 09-01-2024 End: 09-02-2024 Telephone encounter Samm Kc DO Work Phone: Family [facility] Comment on above: Orders Start: 08-29-2024 End: 08-29-2024 Telephone encounter Samm Kc DO Work Phone: Internal Medicine [place] [id number] Comment on above: Opened In Error Patient Request (ex spouse ) Start: 08-19-2024 End: 08-20-2024 Telephone encounter Pola Garcia MD Work Phone: Geriatrics Comment on above: Patient Request (Ref erral ) Start: 08-05-2024 End: 08-06-2024 Telephone encounter Pola Garcia MD Work Phone: Geriatrics Comment on above: Medication Question (antidepressant meds) Start: 08-05-2024 End: 08-06-2024 ambulatory [facility] Facility:[facility] Start: 08-05-2024 End: 08-05-2024 Assmt & care planning pt w/cognitive impairment Pola Garcia MD Work Phone: Geriatrics Comment on above: 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); Dementia with behavioral disturbance (HCC); Memory loss; Type 2 diabetes mellitus without complication, without long-term current use of insulin (HCC); Tobacco abuse disorder; Vascular dementia without behavioral disturbance (HCC); Nicotine dependence, cigarettes, uncomplicated; ethylbenzene oxidizer (current) use of aspirin Start: 08-01-2024 End: 08-01-2024 Refill Migdalia Knapp APRN.[employer]ER [employer]ING [employer] TR[employer] Work Phone: Endocrinology Comment on above: Refill Request Start: 07-12-2024 End: 07-15-2024 Refill Migdalia Knapp [employer].INSTALLER [employer]OLDING [employer] TRIM Work Phone: Endocrinology Comment on above: Refill Request Start: 07-08-2024 End: 07-08-2024 ambulatory [facility] Facility:[facility] Start: 07-08-2024 End: 07-08-2024 Office outpatient visit 25 minutes Samm Kc DO Work Phone: [facility] Comment on above: Type 2 diabetes kev itus without complication, without long- term current use of insulin (HCC) (Primary Dx); Dementia with behavioral disturbance (HCC); Ascending aorta dilatation (HCC); Essential hypertension; Mixed hyperlipidemia; Screening for diabetic retinopathy Start: 06-07-2024 End: 06-09-2024 Refill Samm Yamini DO Work Phone: Internal Medicine [place] Comment on above: Refill Request Start: 06-02-2024 End: 06-03-2024 Telephone encounter Yusra Beltran DO Work Phone: Gastroenterology Comment on above: Results Start: 05-30-2024 End: 05-30-2024 Telephone encounter Samm Kc DO Work Phone: [facility] Comment on above: Referral Request Start: 05-29-2024 End: 05-29-2024 ambulatory [facility] Facility:[facility] Start: 05-29-2024 End: 05-29-2024 Subsequent hospital visit by physician Yusra Beltran DO Work Phone: Ambulatory Surgery Comment on above: History of colonic p olyps [Z86.0100] Start: 05-12-2024 End: 05-12-2024 ambulatory Ritika Ring MA [facility] [place] Start: 05-12-2024 End: 05-12-2024 Patient encounter procedure Ritika Ring MA [facility] Comment on above: Population Health Na vigation Outreach ([facility]) Start: 05-07-2024 End: 05-07-2024 ambulatory [facility] Facility:[facility] Start: 05-07-2024 End: 05-07-2024 Patient encounter procedure Bruno Irving BUSTILLOSINSTALLER MOLDING AND TRIM Work Phone: [facility] Comment on above: Skin tear of left kamara nd without complication, initial encounter (Primary Dx) Start: 05-05-2024 End: 05-22-2024 Refill Nurse [facility] Work Phone: Gastroenterology Start: 05-02-2024 End: 05-02-2024 ambulatory [facility] Facility:[facility] Start: 05-02-2024 End: 05-02-2024 Subsequent hospital visit by physician Lesly Bender MD Work Phone: Ambulatory Surgery Comment on above: History of colonic p olyps [Z86.0100] Start: 04-29-2024 End: 05-07-2024 [facility] Comment on above: Results Start: 04-25-2024 End: 04-25-2024 ambulatory [facility] Facility:[facility] Start: 04-24-2024 End: 04-25-2024 Social Work Barbie [facility]OVER [facility] Comment on above: Needs assistance wit h community resources (Primary Dx) Appointment (Colonos copy) Results Start: 04-23-2024 End: 04-23-2024 Office outpatient visit 25 minutes [facility] DO Work Phone: [facility] Comment on above: Type 2 diabetes kev itus without complication, without long- term current use of insulin (HCC) (Primary Dx); Essential hypertension; Mixed hyperlipidemia; Dementia with behavioral disturbance (HCC); Screening for prostate cancer; Decreased activities of daily living (ADL) Start: 03-19-2024 End: 03-19-2024 Patient encounter procedure Sunshine Duckworth APRN.INSTALLER MOLDING [employer] TRIM Work Phone: Cardiology Comment on above: Primary [...] hand Start: 03-06-2024 End: 03-06-2024 ambulatory Samm Kc DO Work Phone: [facility] Comment on above: Fever see triage call Start: 02-08-2024 End: 02-08-2024 Patient encounter procedure Sammi Velarde APRN.INSTALLER [employer]ING [employer] TRIM Work Phone: Neurology Comment on above: Dementia with behavi oral disturbance (HCC) (Primary Dx) Start: 01-11-2024 End: 01-11-2024 Patient encounter procedure Анна Perez PA-C Work Phone: Dermatology [facility] Comment on above: Neoplasm of skin (Pr imary Dx); Encounter for follow-up examination after completed treatment for malignant neoplasm; History of nonmelanoma skin cancer; Sun-damaged skin; Multiple benign nevi; Bowman angioma; Seborrheic keratoses; Lentigines Start: 01-09-2024 End: 01-09-2024 Patient encounter procedure Nurse Joseluis [facility] Work Phone: Dermatology Comment on above: Visit for suture rem oval (Primary Dx) Type 2 diabetes kev itus without complication, without long-term current use of insulin (HCC) (Primary Dx) Start: 01-08-2024 End: 02-01-2024 Telephone encounter Sammi Velarde APRN.INSTALLER MOLDING [employer] TRIM Work Phone: Neurology Comment on above: Patient Question (Sp ouse has questions/concerns) Start: 01-04-2024 End: 01-04-2024 Patient encounter procedure Toni Duran APRN.INSTALLER MOLDING AND TRIM Work Phone: [facility] Comment on above: Mixed hyperlipidemia (Primary Dx); Encounter for immunization; Type 2 diabetes mellitus without complication, without long-term current use of insulin (HCC); Essential hypertension; Tobacco use disorder; SCC (squamous cell carcinoma), arm, left; Mixed Alzheimer and vascular dementia (HCC) Start: 12-31-2023 Refill Samm Colindres i DO Work Phone: [facility] Comment on above: Refill Request; Medi cation Problem (Patient out of Lipitor) Start: 12-29-2023 ambulatory Joshua Mar RN NURSE BLOW MOLDING MACHINE OPERATOR Start: 12-29-2023 Patient encounter procedure Joshua Mar RN NURSE BLOW MOLDING MACHINE OPERATOR Comment on above: Clinical Update Start: 12-29-2023 Telephone encounter Bib jackson MD Work Phone: Dermatology Comment on above: Urgent Start: 12-27-2023 Telephone encounter Samm summers DO Work Phone: [facility] Comment on above: Patient Question Start: 12-26-2023 End: 12-26-2023 Patient encounter procedure Sammi Mccrary MD Work Phone: Dermatology Comment on above: Squamous cell carcin albert in situ (SCCIS) of skin of left forearm Start: 12-25-2023 ambulatory Brittnee Thompson LPN NURSE BLOW MOLDING MACHINE OPERATOR Comment on above: pre op prep Start: 12-25-2023 Telephone encounter Bib jackson MD Work Phone: Dermatology Comment on above: Urgent Patient Update; Maryan ent Question (Pt disengaged, seems depressed) Start: 12-17-2023 End: 12-17-2023 Subsequent hospital visit by physician [facility] Radiology Comment on above: Acute pain of right shoulder [M25.511] Start: 12-17-2023 End: 12-17-2023 Patient encounter procedure Camille Benitez TU.INSTALLER MOLDING AND TRIM Work Phone: [facility] Comment on above: Acute pain of right shoulder (Primary Dx) Start: 12-17-2023 ambulatory Samm Colindres i DO Work Phone: Family Medicine [place] Comment on above: Pain (Shoulder Pain) Start: 12-05-2023 Telephone encounter Priscilla Salas MD Work Phone: Cardiology Comment on above: Appointment Start: 12-03-2023 End: 12-03-2023 Patient encounter procedure Tu Yoly Work Phone: Podiatry Comment on above: Callus of foot (Prim марина Dx); Onychomycosis; Diabetic polyneuropathy associated with type 2 diabetes mellitus (HCC) Start: 11-28-2023 Telephone encounter Анна mooney PA-C Work Phone: Dermatology [facility] Start: 11-23-2023 Telephone encounter Анна mooney PA-C Work Phone: Dermatology [facility] Start: 11-14-2023 Refill Taiwo eLe MD Work Phone: Neurology Comment on above: [...] encounter Анна mooney PA-C Work Phone: Dermatology [facility] Comment on above: Results Start: 10-31-2023 End: 10-31-2023 Patient encounter procedure Анна Ana THIBODEAUX Work Phone: Dermatology [facility] Comment on above: Neoplasm of skin (Pr imary Dx) Start: 09-28-2023 Telephone encounter Lise aguero MD, PhD Work Phone: Colorectal Surgery Comment on above: Patient Update referrals Start: 09-10-2023 Telephone encounter Samm summers DO Work Phone: [facility] Comment on above: Patient Update Start: 09-05-2023 Telephone encounter Lise aguero MD, PhD Work Phone: Colorectal Surgery Comment on above: Results Start: 08-23-2023 ambulatory [facility] Start: 08-17-2023 Telephone encounter Samm summers DO Work Phone: [facility] Comment on above: Results Start: 08-09-2023 End: 08-09-2023 Subsequent hospital visit by physician Lise Coraod MD, PhD Work Phone: Ambulatory Surgery Comment on above: Screening for colon cancer [Z12.11] Start: 08-01-2023 Telephone encounter Rakel Cade RN [facility] Comment on above: Patient Question Start: 07-31-2023 Telephone encounter Migdalia perdomo [employer]SEM[employer] Work Phone: Endocrinology Comment on above: Patient Question Start: 07-24-2023 Telephone encounter Lise aguero MD, PhD Work Phone: Ambulatory Surgery Comment on above: Appointment (Miralax prep instructions mailed) Start: 05-22-2023 ambulatory Samm Manjordan i DO Work Phone: [facility] Comment on above: Medication Problem Start: 04-17-2023 Refill Samm Colindres i DO Work Phone: [facility] Comment on above: Refill Request Start: 02-15-2023 Telephone encounter Sedrick Barfield i, MD Work Phone: Endocrinology Comment on above: Appointment Start: 02-02-2023 Telephone encounter Samm summers DO Work Phone: Endocrinology Comment on above: Metoprolol Start: 02-01-2023 Telephone encounter Samm summers DO Work Phone: [facility] Comment on above: Patient Update Start: 01-30-2023 [...] Start: 12-15-2022 End: 12-15-2022 Patient encounter procedure Priscilla Salas MD Work Phone: Cardiology Comment on above: Essential hypertensi on (Primary Dx); Cardiomyopathy, ischemic; Mixed hyperlipidemia; Tobacco use disorder; Alcohol abuse; Obesity, Class I, BMI 30-34.9; Stenosis of right carotid artery Start: 11-28-2022 ambulatory Samm Colindres i DO Work Phone: Internal Medicine [place] Start: 11-13-2022 ambulatory Herminia Delgado MA [facility] Comment on above: Population Health Na vigation Outreach ([employer] Care Gaps ) Start: 10-23-2022 End: 10-23-2022 Patient encounter procedure Denisa FINK Work Phone: Audiology Comment on above: Sensorineural hearin g loss, bilateral (Primary Dx) Start: 09-22-2022 End: 09-22-2022 Patient encounter procedure Samm Kc DO Work Phone: [facility] Comment on above: Hyperglycemia (Prima ry Dx); Type 2 diabetes mellitus with hyperglycemia, without long-term current use of insulin (HCC); Memory loss; Abrasion of right hand, initial encounter; Sensorineural hearing loss (SNHL) of both ears Start: 09-18-2022 Telephone encounter Samm summers DO Work Phone: [facility] Comment on above: ER follow up appt [...] Refill Request Start: 06-29-2022 Telephone encounter Sedrick Barfield i, MD Work Phone: Endocrinology Comment on above: Glucose Readings Start: 05-05-2022 ambulatory SAMMMAIRA PERSAUDCINI Facilit y:[facility] Start: 05-05-2022 End: 05-05-2022 Subsequent hospital visit by physician [facility] (Istat/1.5) Work Phone: [facility] Radiology MRI Comment on above: Occlusion and stenos is of unspecified carotid artery [I65.29] Start: 04-21-2022 Telephone encounter Large Hops Procedure Rm 1 [facility] Radiology MRI Comment on above: Orders Start: 04-14-2022 End: 04-14-2022 Subsequent hospital visit by physician [facility] Rad[facility] Comment on above: Screening for abdomi nal aortic aneurysm [Z13.6] Start: 04-12-2022 End: 04-12-2022 Patient encounter procedure Samm Kc DO Work Phone: [facility] Comment on above: Wellness examination (Primary Dx); Screening for endocrine, metabolic and immunity disorder; Screening for abdominal aortic aneurysm; Advance directive discussed with patient; Screening for colon cancer; Type 2 diabetes mellitus with hyperglycemia, without long-term current use of insulin (HCC); Tobacco use disorder; Encounter for immunization; Alcohol abuse; MCI (mild cognitive impairment) Start: 04-12-2022 End: 04-12-2022 Patient encounter status Samm Kc DO Work Phone: [facility] Start: 03-01-2022 Refill Sedrick Roberts MD Work Phone: Endocrinology Comment on above: Refill Request Start: 02-15-2022 Orders Only Sedrick Roberts MD Work Phone: Endocrinology Comment on above: Low Blood Sugar Start: 01-31-2022 ambulatory Hortensia Shook 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 Comment on above: Diabetes (Low blood sugar/) [...] End: 01-25-2022 Subsequent hospital visit by physician [facility] Work Phone: Radiology Comment on above: 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] Start: 12-21-2021 End: 12-21-2021 Patient encounter procedure Sedrick Roberts MD Work Phone: Endocrinology Comment on above: Controlled type 2 di abetes mellitus without complication, 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 indoor landscape architect insulin use (HCC) Start: 12-02-2021 End: 12-02-2021 Orders Only Michael Arias DO Work Phone: Hematology/Oncology Comment on above: Thrombocytopenia (HC C) (Primary Dx) Thrombocytopenia (HC C) [D69.6] Start: 11-14-2021 Telephone encounter Michael Pitts ronni DO Work Phone: Hematology/Oncology Comment on above: Follow Up (Positive antiplatelet factor 4 antibody.) Start: 11-11-2021 End: 11-11-2021 ambulatory Michael Arias DO Work Phone: Hematology/Oncology Comment on above: Thrombocytopenia (HC C) (Primary Dx) Start: 11-11-2021 End: 11-11-2021 Patient encounter procedure Michael Moore Juana DO Work Phone: [facility] Start: 11-09-2021 ambulatory Vy Orozco RN NURSE [...] Subsequent hospital visit by physician Luz Faith [facility] [place] Work Phone: Nuclear Medicine Comment on above: Encounter for screen ing for cardiovascular disorders [Z13.6] Start: 09-07-2021 ambulatory Rina Mcdowell RN Work Phone: [facility] Start: 09-07-2021 Follow-up encounter Rina chakraborty RN Work Phone: [facility] [place] Comment on above: Primary Care [facility] Follow Up (TCM) Start: 09-20-2020 End: 09-20-2020 Subsequent hospital visit by physician Robin [facility] [place] Work Phone: Radiology Comment on above: Long-term current us e of opiate analgesic [Z79.891] Procedures Date Procedure Procedure Detail Performing Clinician Start: 04-13-2025 Antibody screen SAMM KC Comment on above: Order Comment: Speci kimberly Type: BLOOD SPECIMENOrdering Facility: [facility] Address: [address] [place] [address] Result Comment: Danielle ected result: Previously reported as Positive on 04/13/2025 at 5:16 PM EST.This is an addended report. These results have been addended to a previously final verified report. Performed By: #### A BEATA, [id number] ####[facility] BLOOD BANKCLIA [id number] [address] [place]#### TSCR ####[facility] BLOOD BANKCLIA [id number] [address] BLOOD BANKCLIA [id number] [address] OF [facility] Start: 04-05-2025 Antibody screen SAMM YAMINI Comment on above: Order Comment: Speci kimberly Type: BLOOD SPECIMENOrdering Facility: [facility] Address: [address] [place] [address] Result Comment: Danielle ected result: Previously reported as Positive on 04/05/2025 at 6:32 AM EDT.This is an addended report. These results have been addended to a previously final verified report. Performed By: #### D AGT, ASCR, %MARYANN, [id number], ABORH ####[facility] BLOOD BANKCLIA [id number] [address] [place]#### TSCR ####[facility] BLOOD BANKCLIA [id number] [place] [address] [facility] BLOOD BANKCLIA [id number] [place] [address] [place] Result Comment: Test ing performed with PEG Start: 04-01-2025 Electrocardiogram GABRI RUDDY KC Start: 04-01-2025 Electrocardiogram MALKA KC Start: 03-30-2025 Antibody screen SAMM KC Comment on above: Order Comment: Speci men Type: BLOOD SPECIMENOrdering Facility: [facility] Address: [address] [place] [address] Performed By: #### T SCR, [id number] ####[facility] LABCLIA [id number] [address] Start: 03-16-2025 Antibody screen SAMM KC Comment on above: Order Comment: Speci men Type: BLOOD SPECIMENOrdering Facility: [facility] Address: [address] [place] [address] Performed By: #### L [id number], TSCR ####[facility] BLOOD BANKCLIA [id number] [address] Start: 03-10-2025 Follow-up visit Follow Up JULY PIERCE Start: 03-05-2025 Antibody screen SAMM KC Comment on above: Order Comment: Speci men Type: BLOOD SPECIMENOrdering Facility: [facility] Address: [address] [place] [address] Performed By: #### L [id number], TSCR ####[facility] BLOOD BANKCLIA [id number] [address] Start: 02-23-2025 Antibody screen SAMM KC Comment on above: Order Comment: Speci men Type: BLOOD SPECIMENOrdering Facility: [facility] Address: [address] [place] [address] Performed By: #### L [id number], TSCR, %MARYANN ####[facility] BLOOD BANKCLIA [id number] [address] Start: 02-06-2025 Antibody screen SAMM KC Comment on above: Order Comment: Speci men Type: BLOOD SPECIMENOrdering Facility: [facility] Address: [address] [place] [address] Performed By: #### T SCR, [id number] ####[facility] BLOOD BANKCLIA [id number] [address] Start: 01-24-2025 Antibody screen SMAM KC Comment on above: Order Comment: Speci men Type: BLOOD SPECIMENOrdering Facility: [facility] Address: [address] [place] [address] Result Comment: Test ing performed with PEG Performed By: #### A SCR, [id number], ABORH, [id number] ####[facility] BLOOD BANKCLIA [id number] [address] Start: 01-24-2025 Antibody screen SAMM KC Comment on above: Order Comment: Speci men Type: BLOOD SPECIMENOrdering Facility: [facility] Address: [address] [place] [address] Performed By: #### % MARYANN, [id number], TSCR, DAGT ####[facility] BLOOD BANKCLIA [id number] [place], [place] [address] [place] [address] Start: 01-24-2025 Electrocardiogram MALKA KC Start: 01-22-[address] atten uation skull base mid-thigh Amy Angeles APRN.INSTALL[employer] Work Phone: Start: 01-22-2025 Gluc bld gluc mntr d ev cleared fda spec home use [facility] Provider Start: 01-07-2025 Antibody screen SAMM KC Comment on above: Order Comment: Speci men Type: BLOOD SPECIMENOrdering Facility: [facility] Address: [address] [place] [address] Result Comment: Danielle ected result: Previously reported as Positive on 01/07/2025 at 5:39 AM EDT.This is an addended report. These results have been addended to a previously final verified report. Performed By: #### D AGT ####[facility] BLOOD BANKIA [id number] [address]#### ABORH, [id number] ####[facility] BLOOD BANKCLIA [id number] [address]#### TSCR ####[facility] BLOOD BANKCLIA [id number] [address] BLOOD BANKIA [id number] [address] Start: 01-06-2025 End: 01-06-2025 Blood count complete auto&auto difrntl wbc July Pierce MD Work Phone: Start: 01-06-2025 Diagnostic bone jose ow biopsies & aspirations Marti Garcia [employer]CH [employer]SEM[employer].INSTALL[employer] Work Phone: Start: 01-06-2025 Beta-2 microglobulin Ruddy Pierce MD Work Phone: Start: 01-06-2025 PATHOLOGIST INTERPRE TATION CBC/DIFF July Pierce MD Work Phone: Start: 12-27-2024 Ct soft tissue neck w/o contrast material July Pierce MD Work Phone: Start: 12-27-2024 Ct thorax w/o contra st material July Pierce MD Work Phone: Start: 12-23-2024 Antibody screen SAMM PERSAUDCINI Comment on above: Order Comment: Speci men Type: BLOOD SPECIMENOrdering Facility: [facility] Address: [address] [place] [address] Result Comment: Danielle ected result: Previously reported as Positive on 12/23/2024 at 5:38 PM EDT.This is an addended report. These results have been addended to a previously final verified report. Performed By: #### B BABINT ####[facility] BLOOD BANKCLIA [id number] [place], [place] [address] [place] [address]#### TSCR ####[facility] BLOOD BANKCLIA [id number] [place], [place] [address] [place], [place] [address] BLOOD BANKCLIA [id number] [place] [address] [facility]#### ASCR, ABORH ####[facility] BLOOD BANKCLIA [id number] [address] Result Comment: Test ing performed with [...] MD Work Phone: Start: 12-09-[address] [facility] Start: 11-26-2024 Hemoglobin A1c/Hemoglobin.total in Blood Sedrick Roberts MD Work Phone: Start: 05-29-2024 Colonoscopy flx dx w /collj spec when braulio Corado MD, PhD Work Phone: Start: 05-29-2024 Gluc bld gluc mntr d ev cleared fda spec home use Yusra Beltran DO Work Phone: Start: 05-29-2024 End: 05-29-2024 Colonoscopy Yusra Beltran DO Work Phone: Start: 05-02-2024 Colonoscopy flx dx w /collj spec when braulio Corado MD, PhD Work Phone: Start: 05-02-2024 End: 05-02-2024 Colonoscopy Lesly Bender MD Work Phone: Start: 04-24-2024 Echocardiography MELVINA KC Start: 03-19-2024 Ecg routine ecg w/le ast 12 lds i&r only Sunshine Duckworth [employer]SEM[employer] Work Phone: Start: 01-11-2024 SKIN / NAIL BIOPSY Yisel haylee Perez PA-C Work Phone: Start: 12-17-2023 Radex shoulder compl ete minimum 2 views Camille Leonel Benitez [employer]CH ASSEM[employer]ER [employer] Work Phone: Start: 10-31-2023 SKIN / NAIL BIOPSY Yisel haylee Ana PA-C Work Phone: Start: 08-09-2023 Colonoscopy flx dx w /collj spec when pfrmd Samm Kc DO Work Phone: Start: 08-09-2023 Level iv surg pathol ogy gross&microscopic exam Lise Corado MD, PhD Work Phone: Start: 08-09-2023 Gluc bld gluc mntr d ev cleared fda spec home use Lise Corado MD, PhD Work Phone: Start: 08-09-2023 Colonoscopy Samm Pelon dailypablo DO Work Phone: Start: 08-02-2022 Hemoglobin A1c/Hemoglobin.total in Blood Sedrick Roberts MD Work Phone: Start: 05-05-2022 Mra neck w/o &w/cont rast material Priscilla Salas MD Work Phone: Start: 04-14-2022 Us abdominal aorta r eal time screen study aaa Samm Kc DO Work Phone: Start: 04-12-2022 INFLUENZA SEASONAL QUADRIVALENT HIGH DOSE AGE 65+ Samm Kc DO Work Phone: Start: 01-25-2022 Duplex scan extracra nial art compl bi study Ramos Erwin MD Work Phone: Start: 12-21-2021 Hemoglobin A1c/Hemoglobin.total in Blood Sedrick Roberts MD Work Phone: Start: 12-02-2021 Us abdominal real ti me w/image limited Michael A Masci DO Work Phone: Start: 12-02-2021 Us abdominal real ti me w/image limited Michael A Masci DO Work Phone: Start: 10-25-2021 Duplex scan [...] Author Start: 02-23-2026 Creatinine measurement Serum Creatinine [facility] Start: 02-20-2026 Annual PCP Team Chronic Disease Visit Annual PCP Team Chronic Disease Visit [facility] Start: 02-11-2026 Annual PCP Team Chronic Disease Visit Annual PCP Team Chronic Disease Visit [facility] Start: 02-06-2026 Creatinine measurement Serum Creatinine [facility] Start: 01-26-2026 Creatinine measurement Serum Creatinine [facility] Start: 01-14-2026 Annual PCP Team Chronic Disease Visit Annual PCP Team Chronic Disease Visit [facility] Start: 01-12-2026 Creatinine measurement Serum Creatinine [facility] Start: 01-09-2026 Creatinine measurement Serum Creatinine [facility] Start: 01-08-2026 Complete blood count Hemoglobin/Hematocrit [facility] Start: 01-08-2026 Creatinine measurement Serum Creatinine [facility] Start: 01-08-2026 Diabetic foot examination Diabetic Foot Exam [facility] Start: 01-07-2026 Complete blood count Hemoglobin/Hematocrit [facility] Start: 01-07-2026 Creatinine measurement Serum Creatinine [facility] Start: 12-29-2025 Annual PCP Team Chronic Disease Visit Annual PCP Team Chronic Disease Visit [facility] Start: 12-29-2025 Hepatitis B surface antibody level LDL Cholesterol [facility] Start: 12-09-2025 Screening for malignant neoplasm of colon [facility] Start: 11-17-2025 End: 11-17-2025 Patient encounter procedure 11/17/2025 3:00 PM EDT Office Visit Endocrinology [address] [address] Sedrick Roberts MD [address] [place] [address] one year follow up Endocrinology Comment on above: one year follow up Start: 09-10-2025 BP Controlled (<130/80) BP Controlled (<130/80) [facility] Start: 08-17-2025 End: 08-17-2025 Patient encounter procedure 08/17/2025 11:30 AM EDT Office Visit Cardiology [address] [address] Marti Claudio APRN.[employer] [address] [place] [address] 6mo follow up Cardiology Comment on above: 6mo follow up Start: 08-11-2025 End: 08-11-2025 Patient encounter procedure 08/11/2025 11:40 AM EST Office Visit Family Dolly Cespedes [address] [place] [phone] Samm Kc DO [address] [place] [address] Return in about 6 months (around 08/11/2025) for follow up. [facility] Comment on above: Return in about 6 months (around ) for follow up. Start: 08-05-2025 Annual PCP Team Chronic Disease Visit Annual PCP Team Chronic Disease Visit [facility] Start: 07-29-2025 Hemoglobin A1c measurement HbA1C [facility] Start: 07-08-2025 Annual PCP Team Chronic Disease Visit Annual PCP Team Chronic Disease Visit [facility] Start: 07-08-2025 BP Controlled (<130/80) BP Controlled (<130/80) [facility] Start: 07-08-2025 Covid-19 Vaccine ( season) Covid-19 Vaccine () [facility] Comment on above: Postponed from 02/10/2024 (Declined at t his time) Start: 07-01-2025 Hemoglobin A1c measurement HbA1C [facility] Start: 05-29-2025 Screening for malignant neoplasm of colon [facility] Start: 05-28-2025 Hemoglobin A1c measurement HbA1C [facility] Start: 05-28-2025 End: 05-28-2025 Patient encounter procedure 05/28/2025 1:00 PM EST Office Visit Endocrinology [address] [id number] Migdalia Knapp APRN.INSTALLER [employer]ING [employer] [address] [address] 6 month follow up Endocrinology Comment on above: 6 month follow up Start: 05-20-2025 End: 05-20-2025 Patient encounter procedure [facility] Endoscopy Comment on above: colon Start: 05-02-2025 Screening for malignant neoplasm of colon [facility] Start: 04-25-2025 Hepatitis B screening Urine Albumin:Creatinine Ratio [facility] Start: 04-25-2025 Hepatitis B surface antibody level LDL Cholesterol [facility] Start: 04-23-2025 Annual PCP Team Chronic Disease Visit Annual PCP Team Chronic Disease Visit [facility] Start: 04-23-2025 BP Controlled (<130/80) BP Controlled (<130/80) [facility] Start: 03-19-2025 BP Controlled (<130/80) BP Controlled (<130/80) [facility] Start: 03-10-2025 End: 03-10-2025 Follow-up encounter 03/10/2025 9:30 AM EDT Visit (SP) Office Hematology/Oncology [address] [address] [place] [address] [place] [address] Follow up Hematology/Oncology Comment on above: Follow up Start: 03-04-2025 End: 03-04-2025 Patient encounter procedure 03/04/2025 9:00 AM EDT [facility] Nutrition Therapy [place] [address] Rowena Sanchez, RD [address] [place] [address] VIRTUAL NEW CONSULT Nutrition Therapy Comment on above: VIRTUAL NEW CONSULT Start: 03-02-2025 End: 03-02-2025 ambulatory 03/02/2025 1:00 PM EDT Visit (SP) Office Hematology/Oncology [address] [place] [address] [place] [address] [place] [address] [facility] Hematology/Oncology Comment on above: [facility] Start: 02-24-2025 End: 02-24-2025 ambulatory 02/24/2025 11:45 AM EDT Results Only [facility] [address] [place], [place] [address] LABS [facility] Comment on above: LABS Start: 02-17-2025 End: 02-17-2025 Patient encounter procedure 02/17/2025 3:00 PM EDT Office Visit Cardiology [address] [place] [address] [place] [address] [place] [address] Follow up Cardiology Comment on above: Follow up Start: 02-11-2025 End: 02-11-2025 Patient encounter procedure 02/11/2025 11:20 AM EDT Office Visit [facility] [place] [address] [place], [place] [phone] Samm Kc DO [address] [place], [place] [address] Recent hospitalization, generalized fatigue, COVID-19 [facility] Comment on above: Recent hospitalization, generalized fati nelly, COVID-19 Start: 02-10-2025 End: 02-10-2025 ambulatory 02/10/2025 10:00 AM EDT Visit (SP) Office Hematology/Oncology [address] [place] [address] Gila Braxton MD [address] [place], [place] [phone] [facility] Hematology/Oncology Comment on above: [facility] Start: 02-09-2025 Influenza vaccination [facility] Start: 02-07-2025 BP Controlled (<130/80) BP Controlled (<130/80) [facility] inic Start: 02-06-2025 End: 02-06-2025 Follow-up encounter 02/06/2025 12:30 PM EDT Visit (SP) Office Hematology/Oncology [address] [place] [address] [place] [address] [place] [address] bx follow up Ok per Dr Pierce Hematology/Oncology Comment on above: bx follow up Ok per Dr Pierce Start: 02-03-2025 End: 02-03-2025 Follow-up encounter 02/03/2025 1:00 PM EDT Visit (SP) Office Hematology/Oncology [address] [address] [place] [address] [place] [address] bx follow up Hematology/Oncology Comment on above: bx follow up Start: 02-03-2025 End: 02-03-2025 Patient encounter procedure 02/03/2025 10:40 AM EDT Office Visit [facility] [address] [place], [place] [id number] Samm Kc DO [address] [place], [place] [phone] Recent hospitalization, generalized fatigue, COVID-19 [facility] Comment on above: Recent hospitalization, generalized fati nelly, COVID-19 Start: 02-02-2025 End: 02-02-2025 Patient encounter procedure 02/02/2025 3:00 PM EDT Office Visit [facility] [address] [place] [address] [facility] [address] [place] [address] DM/HTN/Med Rec [facility] Comment on above: DM/HTN/Med Rec Start: 01-27-2025 End: 01-27-2025 Patient encounter procedure 01/27/2025 2:00 PM EDT Office Visit [facility] [address] [place] [address] [place] [address] DM/HTN/Med Rec [facility] Comment on above: DM/HTN/Med Rec Start: 01-27-2025 End: 01-27-2025 Follow-up encounter Hematology/Oncology Comment on above: bx follow up bx follow up Ok per Dr Pierce Start: 01-22-2025 End: 01-22-2025 ambulatory 01/22/2025 2:00 PM EDT Visit (SP) Office Hematology/Oncology [address] [place] [id number] [place] [address] [place] [address] [facility] Hematology/Oncology Comment on above: [facility] Start: 01-22-2025 End: 01-22-2025 Patient encounter procedure Molecular Imaging Comment on above: NM PETCT SKULL THIGH INIT Start: 01-19-2025 End: 01-19-2025 Admission to same day surgery center 01/19/2025 1:00 PM EDT - 01/19/2025 2:00 PM EDT Surgery [facility] Radiology [address] [place] [address] [place] [address] [facility] [address] [place] [address] BIOPSY OR EXCISION LYMPH NODES(S) NEEDLE SUPERFICIAL [facility] Radiology Comment on above: BIOPSY OR EXCISION LYMPH NODES(S) NEEDLE SUPERFICIAL Start: 01-19-2025 End: 01-19-2025 Bx/exc lymph node needle superficial BIOPSY OR EXCISION LYMPH NODES(S) NEEDLE SUPERFICIAL Localized enlarged lymph nodes 01/19/2025 1:00 PM EDT ME IR Start: 01-19-2025 Subsequent hospital visit by physician 01/19/2025 1:00 PM EDT Hospital Encounter [facility] Radiology [address] [place] [address] [place] [address], [facility] [address] [place] [address] Localized enlarged lymph nodes [R59.0] [facility] Radiology Comment on above: Localized enlarged lymph nodes [R59.0] Start: 01-15-2025 End: 01-15-2025 Patient encounter procedure Molecular Imaging Comment on above: IP-NM PET/CT WHOLE BODY INIT Start: 01-14-2025 End: 01-14-2025 Patient encounter procedure 01/14/2025 1:40 PM EDT Office Visit [address] [id number] Samm Kc DO [address] [place], [place] [phone] TCM HOSP FOLLOW UP [facility] Comment on above: TCM HOSP FOLLOW UP Start: 01-09-2025 End: 01-09-2025 Patient encounter procedure 01/09/2025 9:20 AM EDT Office Visit [address] [id number] Samm Kc DO [address] [place], [place] [id number] Medicare AWV(modifier 25) and Return in about 6 months (around 10/21/2024) for diabetes . [facility] Comment on above: Medicare AWV(modifier 25) and [...] hypertension Mixed hyperlipidemia Expected: 01/05/2025, Expires: 07/08/2025 [facility] Comment on above: Expected: 01/05/2025, Expires: Start: 01-05-2025 End: 07-08-2025 Comprehensive metabolic 2000 panel - Serum or Plasma COMPREHENSIVE METABOLIC PANEL Lab STAT Type 2 diabetes mellitus without complication, without long-term current use of insulin (HCC) Essential hypertension Mixed hyperlipidemia Expected: 01/05/2025, Expires: 07/08/2025 [facility] Comment on above: Expected: 01/05/2025, Expires: Start: 01-05-2025 End: 07-08-2025 Hemoglobin A1c in Blood HEMOGLOBIN A1C Lab Routine Type 2 diabetes mellitus without complication, without long-term current use of insulin (HCC) Essential hypertension Mixed hyperlipidemia Expected: 01/05/2025, Expires: 07/08/2025 [facility] Work Phone: Comment on above: Expected: 01/05/2025, Expires: Start: 01-05-2025 End: 07-08-2025 Lipid 1996 panel - Serum or Plasma LIPID PANEL BASIC Lab Routine Type 2 diabetes mellitus without complication, without long-term current use of insulin (HCC) Essential hypertension Mixed hyperlipidemia Expected: 01/05/2025, Expires: 07/08/2025 [facility] Comment on above: Expected: 01/05/2025, Expires: Start: 01-03-2025 Annual PCP Team Chronic Disease Visit Annual PCP Team Chronic Disease Visit [facility] Start: 01-03-2025 BP Controlled (<130/80) BP Controlled (<130/80) [facility] in Start: 01-03-2025 Urine microalbumin profile DTaP,Tdap,Td Vaccine (1 - Tdap) [facility] Comment on above: Postponed from 1968 (Insurance Cov erage) Start: 12-29-2024 End: 12-29-2024 Patient encounter procedure 12/29/2024 8:30 AM EDT Office Visit Geriatrics [address] [place] [phone] Pola Garcia MD [address], [address] [place] [address] in person follow up Geriatrics Comment on above: in person follow up Start: 12-25-2024 BP Controlled (<130/80) BP Controlled (<130/80) [facility] in Start: 12-10-2024 End: 12-10-2024 Patient encounter procedure 12/10/2024 11:20 AM EDT Office Visit [facility] [address] [place], [place] [phone] Samm Kc DO [address] [place], [place] [id number] Medicare AWV(modifier 25) and Return in about 6 months (around 10/21/2024) for diabetes . [facility] Comment on above: Medicare AWV(modifier 25) and Return in about 6 months (around 10/21/2024) for diabetes . Start: 12-08-2024 Influenza vaccination Influenza Vaccine (#1) [place] Alessia cowart Comment on above: Postponed from 02/10/2024 (Declined at t his time) Start: 12-03-2024 Diabetic foot examination Diabetic Foot Exam [facility] Start: 11-26-2024 End: 11-26-2024 Patient encounter procedure 11/26/2024 3:00 PM EDT Office Visit Endocrinology [address] [id number] Sedrick Roberts MD [address] [place], [place] [phone] follow up Endocrinology Comment on above: follow up Start: 11-24-2024 End: 11-24-2024 Patient encounter procedure 11/24/2024 8:00 AM EDT Office Visit Geriatrics [address] [place] [phone] Pola Garcia MD [address], [address] [place] [address] in person follow up Geriatrics Comment on above: in person follow up Start: 10-23-2024 Hemoglobin A1c measurement HbA1C [facility] Start: 10-21-2024 End: 10-21-2024 Patient encounter procedure [facility] Comment on above: Return in about 6 months (around 10/22/19) for diabetes . Medicare AWV(modifie r 25) and Return in about 6 months (around 10/21/2024) for diabetes . Start: 09-23-2024 End: 09-23-2024 Patient encounter procedure 09/23/2024 3:00 PM EDT Office Visit Cardiology [address] [place] [address] [place] [address] [place] [address] follow up Cardiology Comment on above: follow up Start: 09-10-2024 End: 09-10-2024 Patient encounter procedure 09/10/2024 2:15 PM EDT Office Visit General Surgery [address] [address] Manda Velasquez, DO [address] [place] [address] History of colonic polyps [Z86.0100] General Surgery Comment on above: History of colonic polyps [Z86.0100] Start: 08-26-2024 End: 08-26-2024 Patient encounter procedure 08/26/2024 9:30 AM EDT Office Visit Neurology [address] [place] [address] Dale Hawkins MD [address] [place] [address] Dementia with behavioral disturbance (HCC) [F03.918] Neurology Comment on above: Dementia with behavioral disturbance (HC C) [F03.918] Start: 08-08-2024 Screening for malignant neoplasm of colon [facility] Start: 08-05-2024 End: 08-05-2024 Patient encounter procedure 08/05/2024 8:30 AM EST Office Visit Geriatrics [address] [place] [address] Pola Garcia MD [address], [address] [place] [address] Dementia with behavioral disturbance (HCC) [F03.918] Geriatrics Comment on above: Dementia with behavioral disturbance (HC C) [F03.918] Start: 2024 RSV Vaccine (1 - 1-dose 75+ series) RSV Vaccine (1 - 1-dose 75+ series) [facility] Start: 07-14-2024 End: 07-14-2024 Patient encounter procedure 07/14/2024 1:20 PM EST Office Visit Dermatology [facility] [address] [place] [address] Анна Perez PA-C [address] [place] [address] FBSE Dermatology [facility] Comment on above: FBSE Start: 07-08-2024 End: 07-08-2024 Patient encounter procedure [facility] Comment on above: Return in about 6 months (around 07/06/19). Return in about 6 mo nths (around 07/06/2024).HM DUE PLEASE ADDRESS/UPDATE Start: 07-06-2024 Hemoglobin A1c measurement HbA1C [facility] Start: 07-05-2024 BP Controlled (<130/80) BP Controlled (<130/80) [facility] Start: 06-21-2024 Hepatitis B screening Urine Albumin:Creatinine Ratio [facility] Start: 06-21-2024 Hepatitis B surface antibody level LDL Cholesterol [facility] Start: 06-12-2024 Annual PCP Team Chronic Disease Visit Annual PCP Team Chronic Disease Visit [facility] Start: 06-12-2024 Diabetic foot examination Diabetic Foot Exam [facility] Start: 06-11-2024 Medicare Advantage Annual Wellness Visit Medicare [facility] Annual Wellness Visit [facility] Start: 05-29-2024 End: 05-29-2024 Patient encounter procedure 05/29/2024 11:00 AM EST Appointment Ambulatory Surgery [address] [place] [address] [place] [address] [place] [address] hx polyps, 2 day prep mailed Ambulatory Surgery Comment on above: hx polyps, 2 day prep mailed Start: 05-02-2024 End: 05-02-2024 Patient encounter procedure 05/02/2024 10:00 AM EST Appointment Ambulatory Surgery [address] [place] [address] Lesly Bender MD [address] [place] [address] COLONOSCOPY Ambulatory Surgery Comment on above: COLONOSCOPY Start: 04-24-2024 End: 04-24-2024 Patient encounter procedure 04/24/2024 1:00 PM EST Office Visit Cardiology [address] [place] [address] Primary hypertension [I10]; Systolic dysfunction without heart [...] hypertension Mixed hyperlipidemia Expected: 04/23/2024, Expires: 04/23/2025 [facility] Comment on above: Expected: 04/23/2024, Expires: Start: 04-23-2024 End: 04-23-2025 Comprehensive metabolic 2000 panel - Serum or Plasma COMPREHENSIVE METABOLIC PANEL Lab Routine Type 2 diabetes mellitus without complication, without long-term current use of insulin (HCC) Essential hypertension Mixed hyperlipidemia Expected: 04/23/2024, Expires: 04/23/2025 [facility] Comment on above: Expected: 04/23/2024, Expires: Start: 04-23-2024 End: 04-23-2025 Hemoglobin A1c in Blood HEMOGLOBIN A1C Lab Routine Type 2 diabetes mellitus without complication, without long-term current use of insulin (HCC) Essential hypertension Mixed hyperlipidemia Expected: 04/23/2024, Expires: 04/23/2025 [facility] Comment on above: Expected: 04/23/2024, Expires: Start: 04-23-2024 End: 04-23-2025 Lipid 1996 panel - Serum or Plasma LIPID PANEL BASIC Lab Routine Type 2 diabetes mellitus without complication, without long-term current use of insulin (HCC) Essential hypertension Mixed hyperlipidemia Expected: 04/23/2024, Expires: 04/23/2025 [facility] Comment on above: Expected: 04/23/2024, Expires: Start: 04-23-2024 End: 04-23-2025 Microalbumin/Creatinine [Mass Ratio] in Urine ALBUMIN/CREATININE RATIO, URINE Lab Routine Type 2 diabetes mellitus without complication, without long-term current use of insulin (HCC) Essential hypertension Mixed hyperlipidemia Expected: 04/23/2024, Expires: 04/23/2025 [facility] Comment on above: Expected: 04/23/2024, Expires: Start: 04-23-2024 End: 07-23-2024 PSA/PROSTATE SPECIFIC ANTIGEN SCREENING PSA/PROSTATE SPECIFIC ANTIGEN SCREENING Lab Routine Screening for prostate cancer Expected: 04/23/2024, Expires: 07/23/2024 [facility] Work Phone: Comment on above: Expected: 04/23/2024, Expires: Start: 04-23-2024 End: 04-23-2025 Thyrotropin [Units/volume] in Serum or Plasma THYROID STIMULATING HORMONE Lab Routine Type 2 diabetes mellitus without complication, without long-term current use of insulin (HCC) Essential hypertension Mixed hyperlipidemia Expected: 04/23/2024, Expires: 04/23/2025 [facility] Comment on above: Expected: 04/23/2024, Expires: Start: 04-18-2024 End: 04-18-2024 Anesthesia consultation 04/18/2024 11:59 PM EST Anesthesia Event Ambulatory Surgery [address] [place] [address] Dasha Urrutia APRN.[employer] [address] [place] [address] Ambulatory Surgery Start: 04-17-2024 End: 04-17-2024 Patient encounter procedure 04/17/2024 11:30 AM EST Office Visit Cardiology [address] [place] [phone] [place] [address] [place] [address] follow up Cardiology Comment on above: follow up Start: 03-27-2024 End: 03-27-2024 Patient encounter procedure Ambulatory Surgery Comment on above: diag colonoscopy Start: 03-19-2024 End: 03-19-2024 Patient encounter procedure 03/19/2024 2:30 PM EDT Office Visit Cardiology [address] [place] [address] Sunshine Duckworth, [employer]SEM[employer] [address] [place] [address] 9 month follow up reschedule Cardiology Comment on above: 9 month follow up reschedule Start: 03-19-2024 End: 03-19-2025 Echocardiography ECHO Cardiology Routine Primary hypertension 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 (HCC) Expected: 03/19/2024, Expires: 03/19/2025 [facility] Work Phone: Comment on above: Expected: 03/19/2024, Expires: Start: 03-18-2024 End: 03-18-2024 Patient encounter procedure 03/18/2024 2:00 PM EDT Office Visit Cardiology [address] [place] [address] [place] [address] [place] [address] 9 mo f/u Cardiology Comment on above: 9 mo f/u Start: 03-17-2024 End: 03-17-2024 Patient encounter procedure 03/17/2024 1:00 PM EDT Office Visit Dermatology [address] [place] [phone] Jatin Garrett MD [address] [place] [address] Mohs: SCC right dorsal hand, 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 Dermatology Comment on above: Mohs: SCC right dorsal hand, 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 Start: 03-11-2024 End: 03-11-2024 Patient encounter procedure 03/11/2024 8:45 AM EDT Office [place] [address] colonoscopy 03-27-24 [employer] [facility] Comment on above: colonoscopy 03-27-24 Start: 02-29-2024 End: 02-29-2024 Nutrition therapy 02/29/2024 1:45 PM EDT Education Nutrition Therapy [address] [id number] Jennifer Barrera, MARJORIE [address] [place] [address] diabetic Nutrition Therapy Comment on above: diabetic Start: 02-10-2024 Covid-19 Vaccine ( season) Covid-19 Vaccine ( season) [facility] Start: 02-10-2024 Covid-19 Vaccine ( season) Covid-19 Vaccine () [facility] Start: 02-10-2024 Influenza vaccination [facility] Start: 02-08-2024 End: 02-08-2024 Patient encounter procedure Neurology Comment on above: F/U F/U; NO MOCA Start: 01-31-2024 BP CONTROLLED (<130/80) BP CONTROLLED (<130/80) [facility] in Start: 01-11-2024 End: 01-11-2024 Patient encounter procedure 01/11/2024 1:00 PM EDT Office Visit Dermatology [facility] [address] [place] [address] Анна Perez PA-C [address] [place] [address] FBSE Dermatology [facility] Comment on above: FBSE Start: 01-09-2024 End: 01-09-2024 Patient encounter procedure Endocrinology Comment on above: 6 month follow up 12 day suture remova l Start: 01-04-2024 End: 01-04-2024 Patient encounter procedure 01/04/2024 3:10 PM EDT Office Visit [facility] [address] [place] [address] Toni Duran APRN.[facility] [address] [place] [address] f/u med appt [facility] Comment on above: f/u med appt Start: 12-28-2023 End: 12-28-2023 Patient encounter procedure Endocrinology Comment on above: Type 2 diabetes mellitus with hyperglyce boone, 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 skilled nursing insul... Start: 12-26-2023 End: 12-26-2023 Patient encounter procedure Dermatology Comment on above: Mohs: SCC, left forearm - anterior, 3 pt s Start: 12-20-2023 Hemoglobin A1c measurement HbA1C [facility] Start: 12-16-2023 BP CONTROLLED (<130/80) BP CONTROLLED (<130/80) [facility] in Start: 12-09-2023 Influenza vaccination Influenza Vaccine (#1) [facility] cowart Comment on above: Postponed from 02/09/2023 (Declined at t his time) Start: 12-03-2023 End: 12-03-2023 Patient encounter procedure 12/03/2023 3:00 PM EDT Office Visit Podiatry [address] [place] [address] GenaTu reynoso [address] [place] [address] Onychomycosis [B35.1 Podiatry Comment on above: Onychomycosis [B35.1 Start: 11-08-2023 End: 11-08-2023 Patient encounter procedure 11/08/2023 11:00 AM EDT Office Visit Neurology [address] [place] [address] Taiwo Lee MD [address] [place] [address] F/U; NO MOCA?? Neurology Comment on above: F/U; NO MOCA?? Start: 10-11-2023 ANNUAL PCP TEAM CHRONIC DISEASE VISIT ANNUAL PCP TEAM CHRONIC DISEASE VISIT [facility] Start: 10-11-2023 BP CONTROLLED (<130/80) BP CONTROLLED (<130/80) [facility] Start: 09-23-2023 ANNUAL PCP TEAM CHRONIC DISEASE VISIT ANNUAL PCP TEAM CHRONIC DISEASE VISIT [facility] Start: 09-23-2023 BP CONTROLLED (<130/80) BP CONTROLLED (<130/80) [facility] Start: 07-28-2023 Covid-19 Vaccine () Covid-19 Vaccine () [facility] Start: 06-11-2023 Behavioral Health Screening Behavioral Health Screening [facility] Start: 06-11-2023 Depression Assessment Depression Assessment [facility] Start: 04-12-2023 ANNUAL PCP TEAM CHRONIC DISEASE VISIT ANNUAL PCP TEAM CHRONIC DISEASE VISIT [facility] Start: 04-12-2023 BP CONTROLLED (<130/80) BP CONTROLLED (<130/80) [facility] Start: 02-09-2023 Covid-19 Vaccine () Covid-19 Vaccine () [facility] Start: 02-09-2023 Influenza vaccination [facility] Start: 01-30-2023 Hemoglobin A1c measurement HbA1C [facility] Start: 01-30-2023 Hemoglobin A1c/Hemoglobin.total in Blood HBA1C [facility] Start: 01-09-2023 BP CONTROLLED (<130/80) BP CONTROLLED (<130/80) [facility] Start: 12-21-2022 3 comp foot exam completed DIABETIC FOOT EXAM [facility] Start: 12-21-2022 BP CONTROLLED (<130/80) BP CONTROLLED (<130/80) [facility] Start: 12-21-2022 Diabetic foot examination Diabetic Foot Exam [facility] Start: 11-28-2022 End: 01-28-2023 ALBUMIN/CREAT RATIO RND UR ALBUMIN/CREAT RATIO RND UR Lab Routine Type 2 diabetes mellitus with hyperglycemia (HCC) Expected: 11/28/2022, Expires: 01/28/2023 [facility] Work Phone: Comment on above: Expected: 11/28/2022, Expires: 3 Start: 11-11-2022 BP CONTROLLED (<130/80) BP CONTROLLED (<130/80) [facility] Start: 10-12-2022 BP CONTROLLED (<130/80) BP CONTROLLED (<130/80) [facility] Start: 10-03-2022 Hemoglobin A1c/Hemoglobin.total in Blood HBA1C [facility] Start: 09-13-2022 BP CONTROLLED (<130/80) BP CONTROLLED (<130/80) [facility] Start: 09-06-2022 COVID-19 VACCINE (2 - Pfizer series) COVID-19 VACCINE (2 - Pfizer series) [facility] Start: 07-23-2022 Hepatitis B surface antibody level LDL CHOLESTEROL [facility] Start: 06-23-2022 Hemoglobin A1c/Hemoglobin.total in Blood HBA1C [facility] Start: 06-16-2022 Glaucoma screening Dilated Retinal Exam [facility] Start: 06-16-2022 Hepatitis C antibody, confirmatory test DILATED RETINAL EXAM [facility] Start: 06-11-2022 ADVANCE DIRECTIVE DISCUSSION ADVANCE DIRECTIVE DISCUSSION [facility] Start: 06-11-2022 DEPRESSION ASSESSMENT DEPRESSION ASSESSMENT [facility] Start: 05-30-2022 COVID-19 VACCINE (2 - Pfizer risk series) COVID-19 VACCINE (2 - Pfizer risk series) [facility] Start: 05-30-2022 COVID-19 VACCINE (2 - Pfizer series) COVID-19 VACCINE (2 - Pfizer series) [facility] Start: 05-16-2022 End: 03-01-2023 Duplex scan extracranial art compl bi study US CAROTID BILAT Radiology Routine Stenosis of right carotid artery Expected: 05/16/2022, Expires: 03/01/2023 [facility] Work Phone: Comment on above: Expected: 05/16/2022, Expires: 3 Start: 04-12-2022 End: 06-12-2022 ALBUMIN/CREAT RATIO RND UR ALBUMIN/CREAT RATIO RND UR Lab Routine Type 2 diabetes mellitus with hyperglycemia, without long-term current use of insulin (HCC) Expected: 04/12/2022, Expires: 06/12/2022 [facility] Work Phone: Comment on above: Expected: 04/12/2022, Expires: 3 Start: 03-02-2022 End: 05-02-2022 ASPIRIN/CLOPIDOGREL RESISTANCE ASPIRIN/CLOPIDOGREL RESISTANCE Lab Routine Stenosis of right carotid artery Expected: 03/02/2022, Expires: 05/02/2022 [facility] Work Phone: Comment on above: Expected: 03/02/2022, Expires: 2 Start: 03-02-2022 End: 05-02-[address] L[address]US ANTICO[address] PL Lab Routine Stenosis of right carotid artery Expected: 03/02/2022, Expires: 05/02/2022 [facility] Work Phone: Comment on above: Expected: 03/02/2022, Expires: 2 Start: 02-09-2022 Influenza vaccination [facility] Start: 12-05-2021 End: 02-04-2022 CBC W Auto Differential panel - Blood CBC + DIFF Lab STAT Thrombocytopenia (HCC) Expected: 12/05/2021, Expires: 02/04/2022 [facility] Work Phone: Comment on above: Expected: 12/05/2021, Expires: 2 Start: 11-11-2021 End: 01-11-2022 aPTT in Platelet poor plasma by Coagulation assay [facility] Work Phone: Comment on above: Expected: 11/11/2021, Expires: 2 Start: 11-11-2021 End: 01-11-2022 B 2 GPI IGG & IGM [facility] Work Phone: Comment on above: Expected: 11/11/2021, Expires: 2 Start: 11-11-2021 End: 01-11-2022 Cardiolipin IgG and IgM panel - Serum [facility] Work Phone: Comment on above: Expected: 11/11/2021, Expires: 2 Start: 11-11-2021 End: 01-11-2022 Chronic hepatitis differentiation between hepatitis B and C virus panel - Serum or Plasma [facility] Work Phone: Comment on above: Expected: 11/11/2021, Expires: 2 Start: 11-11-2021 End: 01-11-2022 MAE DIRECT [facility] Work Phone: Comment on above: Expected: 11/11/2021, Expires: 2 Start: 11-11-2021 End: 01-11-2022 COPPER BLOOD [facility] Work Phone: Comment on above: Expected: 11/11/2021, Expires: 2 Start: 11-11-2021 End: 01-11-2022 Fibrinogen [Mass/volume] in Platelet poor plasma by Coagulation assay [facility] Work Phone: Comment on above: Expected: 11/11/2021, Expires: 2 Start: 11-11-2021 End: 01-11-2022 Haptoglobin [Mass/volume] in Serum or Plasma [facility] Work Phone: Comment on above: Expected: 11/11/2021, Expires: 2 Start: 11-11-2021 End: 01-11-2022 HIV 1+2 Ab [Presence] in Serum or Plasma by Immunoassay [facility] Work Phone: Comment on above: Expected: 11/11/2021, Expires: 2 Start: 11-11-2021 End: 01-11-2022 PT panel - Platelet poor plasma by Coagulation assay [facility] Work Phone: Comment on above: Expected: 11/11/2021, Expires: 2 Start: 11-11-2021 End: 01-11-2022 RBC FOLATE [facility] Work Phone: Comment on above: Expected: 11/11/2021, Expires: 2 Start: 11-11-2021 End: 01-11-2022 VITAMIN B12 BLOOD [facility] Work Phone: Comment on above: Expected: 11/11/2021, Expires: 2 Start: 10-21-2021 Hemoglobin A1c/Hemoglobin.total in Blood HBA1C [facility] Start: 06-11-2021 ADVANCE DIRECTIVE DISCUSSION ADVANCE DIRECTIVE DISCUSSION [facility] Start: 02-09-2021 Influenza vaccination INFLUENZA (#1) [facility] Start: 01-29-2020 Adult depression screening assessment DEPRESSION SCREENING [facility] Start: 2014 PNEUMOVAX AGE 65 AND OVER WITH 5YR LOOKBACK (#1) PNEUMOVAX AGE 65 AND OVER WITH 5YR LOOKBACK (#1) [facility] Start: 2009 Hepatitis B Vaccine (1 of 3 - Risk 3-dose series) Hepatitis B Vaccine (1 of 3 - Risk 3-dose series) [facility] Start: 2009 RSV Vaccine (1 - 1-dose 60+ series) RSV Vaccine (1 - 1-dose 60+ series) [facility] Start: 1999 SHINGRIX VACCINE (1 of 2) SHINGRIX VACCINE (1 of 2) [facility] Start: 1994 COLOGUARD (FIT-DNA) COLOGUARD (FIT-DNA) [facility] Start: 1994 Colonoscopy COLONOSCOPY [facility] Start: 1994 COLORECTAL CANCER SCREENING COLORECTAL CANCER SCREENING [facility] Start: [address] COLONOGRAPHY [facility] Start: 1994 FECAL OCCULT BLOOD FECAL OCCULT BLOOD [facility] Start: 1994 Screening for malignant neoplasm of colon [facility] Start: 1994 SIGMOIDOSCOPY SIGMOIDOSCOPY [facility] Start: 1968 SHINGRIX VACCINE (1 of 2) SHINGRIX VACCINE (1 of 2) [facility] Start: 1968 Urine microalbumin profile [facility] Start: 1967 ANNUAL PCP TEAM CHRONIC DISEASE VISIT ANNUAL PCP TEAM CHRONIC DISEASE VISIT [facility] Start: 1967 Anxiety Screening Anxiety Screening [facility] Start: 1967 BP CONTROLLED (<130/80) BP CONTROLLED (<130/80) [facility] in Start: 1967 Depression Screening Depression Screening [facility] Start: 1967 HEPATITIS C SCREENING HEPATITIS C SCREENING [facility] Start: 1961 COVID-19 VACCINE (1) COVID-19 VACCINE (1) [facility] Start: 1959 3 comp foot exam completed DIABETIC FOOT EXAM [facility] Start: 1959 Hepatitis B screening URINE ALBUMIN:CREATININE RATIO [facility] Start: 1955 PNEUMOCOCCAL: 65+ (1 - PCV) PNEUMOCOCCAL: 65+ (1 - PCV) [facility] Start: 1954 COVID-19 VACCINE (#1) COVID-19 VACCINE (#1) [facility] Start: 01-24-1951 COVID-19 VACCINE (#1) COVID-19 VACCINE (#1) [facility] Start: 1949 ABDOMINAL AORTIC ANEURYSM SCREENING ABDOMINAL AORTIC ANEURYSM SCREENING [facility] BONE MARROW ANALYSIS BONE MARROW ANALYSIS Lab Routine Autoimmune hemolytic anemia (HCC) 01/06/2025 2:40 PM EDT [facility] Work Phone: BONE MARROW CHROMOSO ME ANAL BONE MARROW CHROMOSOME ANAL Lab Routine Autoimmune hemolytic anemia (HCC) 01/06/2025 2:57 PM EDT [facility] End: 02-19-2026 CBC W Auto Differential panel - Blood COMPLETE BLOOD COUNT AND DIFFERENTIAL Lab Routine Mantle cell lymphoma, unspecified body region (HCC) Autoimmune hemolytic anemia (HCC) Once per week for 12 Occurrences starting 02/19/2025 until 02/19/2026 [facility] Work Phone: Comment on above: Once per week for 12 Occurrences startin g 02/19/2025 until 02/19/2026 CBC W Ordered Manual Differential panel - Blood PATHOLOGIST INTERPRETATION WITH CBC AND DIFF Lab STAT Thrombocytopenia (HCC) 11/11/2021 3:02 PM EDT [facility] Work Phone: COLOGUARD COLOGUARD Lab Ro utine Screening for colon cancer Ordered: 04/12/2022 [facility] Work Phone: Comment on above: Ordered: 04/12/2022 End: 02-19-2026 Comprehensive metabolic 2000 panel - Serum or Plasma COMPREHENSIVE METABOLIC PANEL Lab Routine Mantle cell lymphoma, unspecified body region (HCC) Once per week for 12 Occurrences starting 02/19/2025 until 02/19/2026 [facility] Comment on above: Once per week for 12 Occurrences startin g 02/19/2025 until 02/19/2026 DNA EXTRACTION BONE MARROW (BUFFY COAT) DNA EXTRACTION BONE MARROW (BUFFY COAT) Lab Routine Autoimmune hemolytic anemia (HCC) 01/06/2025 2:57 PM EDT [facility] End: 11-11-2022 Duplex scan extracranial art compl bi study US CAROTID BILAT Radiology Routine Stenosis of right carotid artery 1 Occurrences starting 10/12/2021 until 11/11/2022 [facility] Work Phone: Comment on above: 1 Occurrences starting 10/12/2021 until 11/11/2022 End: 11-24-2022 Duplex scan extracranial art compl bi study US CAROTID BILAT Radiology Routine Stenosis of right carotid artery 1 Occurrences starting 10/25/2021 until 11/24/2022 [facility] Work Phone: Comment on above: 1 Occurrences starting 10/25/2021 until 11/24/2022 End: 12-16-2023 Echocardiography ECHO Cardiology Routine Cardiomyopathy, ischemic 1 Occurrences starting 12/15/2022 until 12/16/2023 [facility] Work Phone: Comment on above: 1 Occurrences starting 12/15/2022 until 12/16/2023 End: 09-10-2025 Flexible sigmoidoscopy study COLONOSCOPY DIAGNOSTIC Endoscopy Routine History of colonic polyps Abnormal findings on examination of gastrointestinal tract Diarrhea, unspecified type 1 Occurrences starting 09/10/2024 until 09/10/2025 [facility] Work Phone: Comment on above: 1 Occurrences starting 09/10/2024 until 09/10/2025 FLOW CYTOMETRY FOR LEUKEMIA/LYMPHOMA (FCLL) FLOW CYTOMETRY FOR LEUKEMIA/LYMPHOMA (FCLL) Lab Routine Autoimmune hemolytic anemia ([facility]) 01/06/2025 2:57 PM EDT [facility] End: 01-19-2025 FLOW CYTOMETRY FOR LEUKEMIA/LYMPHOMA (FCLL) [facility] Comment on above: ONCE for 1 Occurrences starting 01/20/20 until 01/19/2025 FLOW CYTOMETRY FOR LEUKEMIA/LYMPHOMA (FCLL) PERFORMABLE FLOW CYTOMETRY FOR LEUKEMIA/LYMPHOMA (FCLL) PERFORMABLE Lab Routine Autoimmune hemolytic anemia ([facility]) 01/06/2025 2:57 PM EDT [facility] End: 01-19-2025 FLOW CYTOMETRY FOR LEUKEMIA/LYMPHOMA (FCLL) PERFORMABLE [facility] Comment on above: Once for 1 Occurrences starting 01/20/20 until 01/19/2025 End: 01-19-2025 FLOW CYTOMETRY FOR LEUKEMIA/LYMPHOMA (FCLL) REFLEX [facility] Comment on above: ONCE for 1 Occurrences starting 01/20/20 until 01/19/2025 FLT3 ITD HN BONE MARROW FLT3 ITD HN BONE MARROW Lab Routine Autoimmune hemolytic anemia ([facility]) 01/06/2025 2:57 PM EDT [facility] Guidance for biopsy of Lymph node IMAGING GUIDED BIOPSY CERVICAL LYMPH NODE Radiology Routine Localized enlarged lymph nodes Ordered: 01/06/2025 [facility] Work Phone: Comment on above: Ordered: 01/06/2025 End: 05-22-2023 Mra neck w/o &w/contrast material MRA CAROTID WO/W IVCON Radiology Routine Occlusion and stenosis of unspecified carotid artery 1 Occurrences starting 04/22/2022 until 05/22/2023 [facility] Work Phone: Comment on above: 1 Occurrences starting 04/22/2022 until 05/22/2023 MYELOID NGS PANEL DIVYA NE MARROW MYELOID NGS PANEL BONE MARROW Lab Routine Autoimmune hemolytic anemia ([facility]) 01/06/2025 2:57 PM EDT [facility] End: 02-19-2026 Phosphate [Mass/volume] in Serum or Plasma PHOSPHORUS INORGANIC Lab Routine Mantle cell lymphoma, unspecified body region (HCC) Once per week for 12 Occurrences starting 02/19/2025 until 02/19/2026 [facility] Comment on above: Once per week for 12 Occurrences startin g 02/19/2025 until 02/19/2026 End: 05-05-2025 Screening colonoscopy COLONOSCOPY SCREENING Endoscopy Routine History of colonic polyps 1 Occurrences starting 05/05/2024 until 05/05/2025 [facility] Work Phone: Comment on above: 1 Occurrences starting 05/05/2024 until 05/05/2025 SURGICAL PATHOLOGY [facility] Work Phone: Comment on above: Release Upon Ordering for 1 Occurrences starting 10/31/2023, 1 completed SURGICAL PATHOLOGY [facility] Work Phone: Comment on above: Release Upon Ordering for 1 Occurrences starting 01/11/2024 SURGICAL PATHOLOGY [facility] Work Phone: Comment on above: Release Upon Ordering for 1 Occurrences starting 05/29/2024, 1 completed End: 01-19-2025 Tissue Pathology biopsy report [facility] Work Phone: Comment on above: ONCE for 1 Occurrences starting 01/20/20 until 01/19/2025, 1 completed End: 02-19-2026 TYPE + SCREEN TYPE + SCREEN Blood Bank Routine Mantle cell lymphoma, unspecified body region (HCC) Autoimmune hemolytic anemia (HCC) Once per week for 12 Occurrences starting 02/19/2025 until 02/19/2026 [facility] Comment on above: Once per week for 12 Occurrences startin g 02/19/2025 until 02/19/2026 End: 02-19-2026 Urate [Mass/volume] in Serum or Plasma URIC ACID Lab Routine Mantle cell lymphoma, unspecified body region (HCC) Once per week for 12 Occurrences starting 02/19/2025 until 02/19/2026 [facility] Comment on above: Once per week for 12 Occurrences startin g 02/19/2025 until 02/19/2026 End: 05-12-2023 Us abdominal aorta real time screen study aaa US SCREENING FOR AAA Radiology Routine Screening for abdominal aortic aneurysm 1 Occurrences starting 04/12/2022 until 05/12/2023 [facility] Work Phone: Comment on above: 1 Occurrences starting 04/12/2022 until 05/12/2023 End: 12-11-2022 Us abdominal real time w/image limited US ABD RT UPPER QUADRANT Radiology Routine Thrombocytopenia (HCC) 1 Occurrences starting 11/11/2021 until 12/11/2022 [facility] Work Phone: Comment on above: 1 Occurrences starting 11/11/2021 until 12/11/2022 [facility] COMPA T [facility] Immunizations Immunization Date Immunization Notes Care Provider Orion castorena 04-12-2022 influenza, high-dose , quadrivalent vaccine (FLUZONE HIGH DOSE QUADRIVALENT) [facility] [employer] Work Phone: [facility] 04-12-2022 pneumococcal (PCV20) vaccine, 20 valent (PREVNAR 20) [facility] [employer] Work Phone: [facility] 04-12-2022 pneumococcal Conjuga te, unspecified formulation [facility] DO Work Phone: [facility] Work Phone: 04-12-2022 influenza virus vaccine, unspecified formulation [facility] Payers Date Payer Category Payer Medicare (Managed Care) [id number]. [id number] 2022 Medicaid [id number] 2022 Private Health Insurance [id number] 2021 Medicaid [id number] 2018 Medicare HUMANA MEDICARE HUMANA [facility] PREFERRED HMO [id number] 2018-Present [phone] [address] [address] [place] [address] O [id number] 2018 Medicare [id number] 1950 Unknown [id number] 1949 Unknown [id number] 1949 Unknown [id number] 1950 Unknown [id number] Private Health Insurance Unknown Social History Date Type Detail Facility Start: 07-20-2011 [facility] tobacco smoker [facility] End: 10-03-2021 History of tobacco use Cigar Smoker [facility] Start: 07-20-2011 End: 10-23-2022 Cigarettes smoked current (pack per day) - Reported 0.5 [facility] Work Phone: Start: 07-20-2011 End: 01-14-2025 Tobacco use and exposure Smokeless tobacco non-user [facility] Start: 09-20-2020 End: 08-03-2021 Alcohol intake Current drinker of alcohol (finding) [facility] Start: 1950 Sex Assigned At Not on file [facility] Start: 08-21-2020 End: 05-05-2022 Exposure to SARS-CoV-2 (event) Not sure [facility] Start: 10-25-2021 End: 01-14-2025 Tobacco smoking status NHIS Ex-smoker [facility] End: 10-03-2021 History of tobacco use Current smoker [facility] Start: 11-11-2021 End: 02-20-2025 Alcohol intake Ex-drinker (finding) [facility] End: 10-03-2021 History of tobacco use Cigarette Smoker [facility] Start: 01-30-2022 End: 03-17-2024 Tobacco smoking status IAIS Smokes tobacco daily [facility] Start: 10-23-2022 End: 12-15-2022 Tobacco use panel [facility] Work Phone: Start: 05-12-2012 Adult Depression Screening Assessment 0 [facility] Work Phone: Has the [email or web address], [employer], or water company threatened to shut off services in your home in past 12Mo No [facility] (I/We) worried brian er (my/our) food would run out before (I/we) got money to buy more. Never true [facility] Start: 1950 Sex assigned at Male [facility] Start: 01-14-2025 Gender identity Identifies as male gender (finding) [facility] Start: 02-09-2025 Unknown if ever smoked [facility] Procedure Code Equipment Code Equipment Origin al Text Equipment Identifier Dates [id number], [id number], [id number] Start: 10-21-2021 End: 01-04-2024 Comment on above: 20 Units twice daily . Goals Date Patient Goal Desired Activity /State Personal health goal Functional Status Date Assessment Result Facility 01-28-2025 Are you deaf, or do you have serious difficulty hearing No 01/28/2025 10:13 AM Nimesh Brian RN No [facility] 01-28-2025 Are you blind, or do you have serious difficulty seeing, even when wearing glasses No 01/28/2025 10:13 AM Nimesh Brian RN No [facility] 01-28-2025 Do you have serious difficulty walking or climbing stairs No 01/28/2025 10:13 AM Nimesh Brian RN No [facility] 01-28-2025 Do you have difficul ty dressing or bathing Yes 01/28/2025 10:13 AM Nimesh Brian RN Yes [facility] 01-28-2025 Because of a physica l, mental, or emotional condition, do you have difficulty doing errands alone such as visiting a physician's office or shopping No 01/28/2025 10:13 AM Nimesh Brian RN No [facility] 01-12-2025 Are you deaf, or do you have serious difficulty hearing No 01/12/2025 9:00 PM Sonia Campo RN No [facility] 01-12-2025 Are you blind, or do you have serious difficulty seeing, even when wearing glasses No 01/12/2025 9:00 PM Sonia Campo RN No [facility] 01-12-2025 Do you have serious difficulty walking or climbing stairs Yes 01/12/2025 9:00 PM Sonia Campo RN Yes [facility] 01-12-2025 Do you have difficul ty dressing or bathing Yes 01/12/2025 9:00 PM Sonia Campo RN Yes [facility] 01-12-2025 Because of a physica l, mental, or emotional condition, do you have difficulty doing errands alone such as visiting a physician's office or shopping Yes 01/12/2025 9:00 PM Sonia Campo RN Yes [facility] 08-16-2021 Are you deaf, or do you have serious difficulty hearing No 08/16/2021 7:15 PM Мария Almonte RN No [facility] 08-16-2021 Are you blind, or do you have serious difficulty seeing, even when wearing glasses No 08/16/2021 7:15 PM Мария Almonte RN No [facility] 08-16-2021 Do you have serious difficulty walking or climbing stairs Yes 08/16/2021 7:15 PM Мария Almonte RN Yes [facility] 08-16-2021 Do you have difficul ty dressing or bathing Yes 08/16/2021 7:15 PM Мария Almonte RN Yes [facility] 08-16-2021 Because of a physica l, mental, or emotional condition, do you have difficulty doing errands alone such as visiting a physician's office or shopping Yes 08/16/2021 7:15 PM Мария Almonte, RN Yes [facility] Mental Status Date Assessment Result Facility 01-28-2025 Because of a physica l, mental, or emotional condition, do you have serious difficulty concentrating, remembering, or making decisions No 01/28/2025 10:13 AM EDT Nimesh Alicia, RN No [facility] 01-12-2025 Because of a physica l, mental, or emotional condition, do you have serious difficulty concentrating, remembering, or making decisions Yes 01/12/2025 9:00 PM EDT Sonia Moser, MY Yes [facility] 08-16-2021 Because of a physica l, mental, or emotional condition, do you have serious difficulty concentrating, remembering, or making decisions Yes 08/16/2021 7:15 PM Мария Almonte, MY Yes [facility] Clinical Notes 09-20-2020 to 04-23-2025 Telephone Encounter - Norah Candelario MD - 02/23/2025 4:38 PM EDTTelephone Encounter - Norah Candelario MD - 02/23/2025 4:38 PM EDTTelephone Encounter - Neyda Velarde RN - 02/20/2025 1:57 PM EDT Note Date & Type Note Facility 04-23-2025 Note [facility] 04-21-2025 Note [facility] 04-21-2025 Note [facility] 04-20-2025 Note [facility] 04-19-2025 Note [facility] 04-19-2025 Note [facility] 04-18-2025 Note [facility] 04-18-2025 Note [facility] 04-18-2025 Note [facility] 04-17-2025 Note [facility] 04-17-2025 Note [facility] 04-16-2025 Note [facility] 04-16-2025 Note [facility] 04-15-2025 Note [facility] 04-15-2025 Note [facility] 04-15-2025 Note [facility] 04-14-2025 Note [facility] 04-14-2025 Note [facility] 04-13-2025 Note [facility] 04-12-2025 Note [facility] 04-12-2025 Note [facility] 04-12-2025 Note [facility] 04-11-2025 Note [facility] 04-11-2025 Note [facility] 04-11-2025 Note [facility] 04-11-2025 Note [facility] 04-10-2025 Note [facility] 04-10-2025 Note HNO ID: [id number] Author: JOSHUA RABAGO MD Service: Gastroenterology Author Type: Physician Type: Progress Notes Filed: 04/11/2025 00:01 Note Text: GI BRIEF NOTE: GI signed off. Please re-consult if needed. Joshua Rabago MD [facility] 04-09-2025 Note [facility] 04-09-2025 Note [facility] 04-08-2025 Note [facility] 04-08-2025 Note [facility] 04-07-2025 Note [facility] 04-07-2025 Note [facility] 04-06-2025 Note [facility] 04-06-2025 Note [facility] 04-06-2025 Note [facility] 04-06-2025 Note [facility] 04-05-2025 Note [facility] 04-05-2025 Note [facility] 04-04-2025 Note [facility] 04-03-2025 Note [facility] 04-02-2025 Note [facility] 04-02-2025 Note [facility] 04-01-2025 Note [facility] 04-01-2025 Note [facility] 03-10-2025 Note [facility] 03-10-2025 Note [facility] 03-05-2025 Note [facility] 03-05-2025 Note [facility] 03-05-2025 Note [facility] 03-05-2025 Note [facility] 03-02-2025 Note [facility] 02-23-2025 Telephone encounter Note Called pt on [...] follow up with his pcp in am. [facility] 02-23-2025 Miscellaneous Notes Called pt on [...] pcp in am. documented in this encounter [facility] 02-20-2025 Telephone encounter Note Spoke with Mrs Duncan- who was very tearful- Pt was scratched by Dog - started bleeding- now has a bluish color - deep bruise- along with multiple bruising- on different extremities- concerned about current chemotherapy medication prescribed by outside oncologist Has called primary oncologist without response- inquiring from Dr Braxton about a referral to a local oncologist in [place]- . This nurse suggested Mrs Barone-call their PCP to have Pt's arm evaluated to be sure there is no infection- or need for an antibiotic. Mrs. Barone is agreeable to plan- this nurse will route this phone encounter to Dr. Braxton for oncology referral. Someone from our office will call with any updates- will continue to monitor [facility] 02-20-2025 Miscellaneous Notes Spoke with Mrs Duncan- who was very tearful- Pt was scratched by Dog - started bleeding- now has a bluish color - deep bruise- along with multiple bruising- on different extremities- concerned about current chemotherapy medication prescribed by outside oncologist Has called primary oncologist without response- inquiring from Dr Braxton about a referral to a local oncologist in [place]- . This nurse suggested Mrs Barone-call their PCP to have Pt's arm evaluated to be sure there is no infection- or need for an antibiotic. Mrs. Barone is agreeable to plan- this nurse will route this phone encounter to Dr. Braxton for oncology referral. Someone from our office will call with any updates- will continue to monitor documented in this encounter [facility] 02-20-2025 Instructions Norah Candelario MD - 02/20/2025 1:04 PM EDT Keep wound clean, dress daily. If wound gets bigger or starts draining, call our office. If develops fever or chills, go to ER immediately. documented in this encounter [facility] 02-20-2025 Note [facility] 02-20-2025 History of Present illness Narrative Images [...] has been recently started on Brukinsa by heam onc. Since then he has noticed bruises on his bilateral arms. His contacted [facility]am onc and were asked to continue current [...] Norah Candelario MD documented in this encounter [facility] 02-19-2025 Telephone encounter Note Images from the original note were not included. [facility] Department of Hematology and Oncology After Hours Documentation February 19, 2025 , 7:00 PM Primary [employer] Pipe Inspector Helper/Oncologist: Dr. Davis Manjarrez/onc Diagnosis: Mantle cell lymphoma [facility] called [...] MD Hematology and Oncology Fellow On-call pager: [phone] [facility] 02-19-2025 Miscellaneous Notes Images from the original note were not included. [facility] Department of Hematology and Oncology After Hours Documentation February 19, 2025 , 7:00 PM Primary Oil Pipe Inspector Helper/Oncologist: Dr. Davis Manjarrez/onc Diagnosis: Mantle cell lymphoma [facility] called [...] MD Hematology and Oncology Fellow On-call pager: [phone] documented in this encounter [facility] 02-19-2025 Telephone encounter Note I left [...] - Blood;, Specimen Sources - Blood;, Resulting [facility] LAB, Dx: 1. Mantle cell lymphoma, unspecified body region (HCC) 2. Autoimmune hemolytic anemia (HCC), New collection COMPREHENSIVE METABOLIC PANEL Standing, Expires: 02/19/2026, Manual-release, Interval: Once per week, Count: 12, Lab Collect, Routine, Specimen Types - Blood;, Specimen Sources - Blood;, Resulting [facility] LAB, Dx: 1. Mantle cell lymphoma, unspecified body region (HCC), New collection PHOSPHORUS INORGANIC Standing, Expires: 02/19/2026, Manual-release, Interval: Once per week, Count: 12, Lab Collect, Routine, Specimen Types - Blood;, Specimen Sources - Blood;, Resulting [facility] LAB, Dx: 1. Mantle cell lymphoma, unspecified body region (HCC), New collection TYPE + SCREEN Blood Bank, Routine URIC ACID Standing, Expires: 02/19/2026, Manual-release, Interval: Once per week, Count: 12, Lab Collect, Routine, Specimen Types - Blood;, Specimen Sources - Blood;, Resulting [facility] LAB, Dx: 1. Mantle cell lymphoma, unspecified body region (HCC), New collection July Pierce MD [facility] 02-19-2025 Miscellaneous Notes I left message [...] - Blood;, Specimen Sources - Blood;, Resulting [facility] LAB, Dx: 1. Mantle cell lymphoma, unspecified body region (HCC) 2. Autoimmune hemolytic anemia (HCC), New collection COMPREHENSIVE METABOLIC PANEL Standing, Expires: 02/19/2026, Manual-release, Interval: Once per week, Count: 12, Lab Collect, Routine, Specimen Types - Blood;, Specimen Sources - Blood;, Resulting [facility] LAB, Dx: 1. Mantle cell lymphoma, unspecified body region (HCC), New collection PHOSPHORUS INORGANIC Standing, Expires: 02/19/2026, Manual-release, Interval: Once per week, Count: 12, Lab Collect, Routine, Specimen Types - Blood;, Specimen Sources - Blood;, Resulting [facility] LAB, Dx: 1. Mantle cell lymphoma, unspecified body region (HCC), New collection TYPE + SCREEN Blood Bank, Routine URIC ACID Standing, Expires: 02/19/2026, Manual-release, Interval: Once per week, Count: 12, Lab Collect, Routine, Specimen Types - Blood;, Specimen Sources - Blood;, Resulting [facility] LAB, Dx: 1. Mantle cell lymphoma, unspecified body region (HCC), New collection July Pierce MD Joshua visiting nurse from [facility] called stating that patient a petechia on his arms. He is oral oral Burkinsa. No fevers, bleeding, cough or other rashes. Would you like to be seen by [employer] or have labs checked? Please advise documented in this encounter [facility] 02-19-2025 Telephone encounter Note Joshua visiting nurse from [facility] called stating that patient a petechia on his arms. He is oral oral Burkinsa. No fevers, bleeding, cough or other rashes. Would you like to be seen by [employer] or have labs checked? Please advise [facility] 02-18-2025 Telephone encounter Note SOCIAL WORK FOLLOW UP NOTE: [facility] Date of service: February 18, 2025 Attempted to reach patient at [phone] for introduction to SW and assessment of support needs. No answer; left message with SW contact information. Will remain available for any psychosocial needs that arise. Advance Care Planning Goals of Care Date of Discussion: 02/18/2025 DIscussion Participants: unable to reach patient/caregiver In this encounter: Unable to reach patient/caregiver Assigned SW listed in Care Team tab: Yes Unable To Reach Patient CK Loera [facility] Work Phone: 02-18-2025 Miscellaneous Notes SOCIAL WORK FOLLOW UP NOTE: [facility] Date of service: February 18, 2025 Attempted to reach patient at [phone] for introduction to SW and assessment of support needs. No answer; left message with SW contact information. Will remain available for any psychosocial needs that arise. Advance Care Planning Goals of Care Date of Discussion: 02/18/2025 DIscussion Participants: unable to reach patient/caregiver In this encounter: Unable to reach patient/caregiver Assigned SW listed in Care Team tab: Yes Unable To Reach Patient CK Loera documented in this encounter [facility] 02-17-2025 Instructions Priscilla Salas MD - [...] your oncology team, including Dr. Will in [place] and Dr. Gila [facility], for ongoing management. We discussed your lifestyle [...] questions or concerns. documented in this encounter [facility] 02-17-2025 Note [facility] 02-17-2025 History of Present illness Narrative Images from the original note were not included. [facility] [place] Chloe Bal Department of Cardiovascular Medicine [facility] 02/17/2025 OUTPATIENT VISIT TYPE Established HISTORY OF [...] test 3 years ago indicated an old VT in the inferior wall of the heart. [...] 74 - 99 mg/dL Final Comment: The [place] [employer] (ADA) provides guidance for cutoff [...] Standards of Medical Care in Diabetes 2016, [place] [employer]. Diabetes Care. 2016.39(Suppl 1). BUN [...] with VKA drugs, such as warfarin, the [place] [employer] 2012 Guideline recommends [...] Chest 2012, 141:7S-47S Adalberto RA, et al. [facility] 2017, 70: 252-289 Cardiovascular Testing: I [...] done on December 15, 2022. Follow-up with [facility] showed ejection fraction of 50 to 55% and 1+ mitral regurgitation is noted. EKG 12/15/2022 showed sinus with poor with first-degree atrioventricular block R wave progression and inferior myocardial infarction IMPRESSION / RECOMMENDATIONS / PLAN: Encounter Diagnosis ICD-10-CM 1. Ascending aorta dilatation I77.810 2. HFrEF (heart failure with reduced ejection fraction) ([facility]) I50.20 3. Mixed hyperlipidemia E78.2 4. Essential hypertension I10 5. Mantle cell lymphoma, unspecified body region ([facility]) C83.10 6. Generalized weakness R53.1 HTN with [...] chemotherapy. Follow-up: in 6 months with cardiology [employer] and in 1 year with me in the office or sooner as needed Priscilla Salas MD [facility] Racing Board Marker, Dept of cardiovascular medicine, [facility]. Staff Interior Design Consultant, [facility] [place]. Chloe Bal Department of Cardiovascular Medicine. documented in this encounter [facility] 02-17-2025 Note [facility] 02-17-2025 History of Present illness Narrative [facility]) TRANSITIONAL CARE MANAGEMENT (TCM) POST-ACUTE CARE (PAC) PROGRAM Transitions Navigator Outreach Provider Action/FYI: PAC TCM SNF INITIAL OUTREACH HC:([facility] ) Unable to reach patient x3, LMOM [...] OUTREACH: PAC TCM Initial Outreach Transition from: [facility] (SNF) End Outreach documented in this encounter [facility] 02-16-2025 Note [facility] 02-16-2025 History of Present illness Narrative Patient is identified through a medication adherence outreach initiative based on pharmacy claims data from: [employer] Medication Adherence Category: Statins First Review Attribution Status: Correct attribution Medication(s) Atorvastatin 80 mg Last Filled 10/30 for 90DS, Next fill due 01/27 Medication Status per portal/Epic Reconcile Dispense: Not filled Medication Status per Profile Review: No issues per profile review Patient/provider appropriate for outreach? Yes Patient identified by name and Outreach to patient: Spoke to patient's caregiver - Bg Med Adherence Concern: Patient has overstock and No adherence concerns - about 70 tabs remaining as of today, confirms does take it daily as prescribed What was primary intervention? Remind patient to moss picker or fill and Reviewed medication with the patient Toni Gomez CPhT [facility] Team documented in this encounter [facility] 02-13-2025 Telephone encounter Note Pt and Bg came form signed and faxed to [facility] oil field worker On 02/11/25 [facility] 02-13-2025 Miscellaneous Notes Pt and Bg came form signed and faxed to [facility] oil field worker On 02/11/25 Received return call back from Bg She said she will bring pt in to [place] office after seeing PCP in [place] to have patient come and sign forms for medication to get sent over from [facility] pharmacy Call placed to pt and left message to return call as pt spouse Bg left VM for this nurse to return call. documented in this encounter [facility] 02-13-2025 Note [facility] 02-13-2025 History of Present illness Narrative [facility] TRANSITIONAL CARE MANAGEMENT (TCM) POST-ACUTE CARE (PAC) PROGRAM Transitions Navigator Outreach Provider Action/FYI: PAC TCM SNF INITIAL OUTREACH HC:([facility] ) 2nd attempt. Tried calling pt but could not reach. LMOM for return call to my direct line. Will try another outreach in 1 week. -Lives with family (spouse) -Ambulation with (walker) -ADLs: Independent -(pt requires assistance with bathing from spouse, primarily sponge bathes) -iADLs: Needs assistance -TCM with PCP 02/11/25. DC:02/08/25 [facility] ( ) Reason for hospitalization: Pt presented with worsening weakness and fatigue, Dx: COVID-19, generalized weakness Program Details Post Acute Care Status: Enrolled Effective Dates: 02/10/2025 - present Responsible Staff: Nga Deras MA Support and Services: Post-SNF Transition Support TYPE OF OUTREACH: PAC TCM Initial Outreach Transition from: [facility] (SNF) End Outreach [facility]) TRANSITIONAL CARE MANAGEMENT (TCM) POST-ACUTE CARE (PAC) PROGRAM Transitions Navigator Outreach Provider Action/FYI: PAC TCM SNF INITIAL OUTREACH HC:([facility] ) 1st attempt. Tried calling but could not reach. LMOM for return call to my direct line. Will try outreaching again tomorrow. -Lives with family (spouse) -Ambulation with (walker) -ADLs: Independent -(pt requires assistance with bathing from spouse, primarily sponge bathes) -iADLs: Needs assistance -TCM with PCP 02/11/25. DC:02/08/25 [facility] ( ) Reason for hospitalization: Pt presented with worsening weakness and fatigue, Dx: COVID-19, generalized weakness Program Details Post Acute Care Status: Enrolled Effective Dates: 02/10/2025 - present Responsible Staff: Nga Deras MA Support and Services: Post-SNF Transition Support TYPE OF OUTREACH: PAC TCM Initial Outreach Transition from: [facility] (SNF) End Outreach documented in this encounter [facility] 02-11-2025 Telephone encounter Note Message relayed to brennon at [facility] 02-11-2025 Miscellaneous Notes Message relayed to brennon at [facility] Ok to give verbal Shaye from [facility] calling for the verbal ok to resume home care services for the patient. Pt was receiveing care home, pt, ot and st. Please advise so we can notify shaye at [phone]. thanks documented in this encounter [facility] 02-11-2025 Telephone encounter Note Ok to give verbal [facility] 02-11-2025 Telephone encounter Note Shaye from [facility] calling for the verbal ok to resume home care services for the patient. Pt was receiveing care home, pt, ot and st. Please advise so we can notify shaye at [phone]. thanks [facility] 02-11-2025 Note [facility] 02-11-2025 History of Present illness Narrative CC: [...] - Awaiting chemotherapy medication from pharmacy. - Jusitn is taking omeprazole for heartburn, currently out [...] Abs Lymph 1.00 - 4.00 k/uL 2.26 [place]% % 5.2 Abs [place] <0.87 k/uL 0.45 E[place]% % 0.1 Abs [...] Follow up in 6 months Recording using CloudBees software for draft documentation of the visit was discussed with the patient/authorized field service representative; all questions welcomed and answered. Patient/authorized field service representative agreed to proceed. [1] Social History [...] Drug use: No documented in this encounter [facility] 02-11-2025 Note [facility] 02-10-2025 Note [facility] 02-10-2025 Telephone encounter Note Received return call back from Bg She said she will bring pt in to [place] office after seeing PCP in [place] to have patient come and sign forms for medication to get sent over from [facility] pharmacy [facility] 02-10-2025 Telephone encounter Note Call placed to pt and left message to return call as pt spouse Bg left VM for this nurse to return call. [facility] 02-10-2025 Instructions Gila Braxton MD - [...] interim. - Please follow up with Dr. Stan regularly for ongoing management of your lymphoma. [...] medical attention immediately. documented in this encounter [facility] 02-10-2025 Note [facility] 02-10-2025 History of Present illness Narrative Additional intake questions: Has the patient had fever, nausea, vomiting, diarrhea, constipation, fatigue for > 1 week? Yes, fatigue and Provider Notified Does the patient have a decreased appetite? Yes Does patient want to see a Business Analytics Faculty Member? No (yes to any of above refer patient to schedulers for dietitian appointment) ) Does patient have any new or increased numbness or tingling of extremities? No Is patient interested in fertility information? No Does patient need any prescription refills? No Does patient have an advanced directive in place? No, Patient refused referral to Social Work or Resource Center [facility] Hematologic Oncology and Blood Disorders PATIENT NAME: Tere Barone DATE OF : 1950 ATTENDING STAFF: Gila Braxton MD Hematology/Oncology DATE OF SERVICE: 02/10/2025 REASON FOR CONSULT: Mantle cell lymphoma (MCL) REQUESTING PHYSICIAN: Sofy Rabago [address] [facility] [id number] . HISTORY OF PRESENT ILLNESS: This patient was seen at the request of Dr.Louis Osman Rabago. My findings and recommendations will be communicated back to via EMR. History was obtained from the patient and from review of the patient's old medical records. Recording using CloudBees software for draft documentation of the visit was discussed with the patient/authorized field service representative; all questions welcomed and answered. Patient/authorized field service representative agreed to proceed This is a 74 year old male with DMII, vascular dementia, hyperlipidemia, essential hypertension, JOE, carotid artery stenosis, CVA, GERD, Tsang esophagus, who presents for a consultation regarding MCL. He initially presented to [facility] from 12/06/2024 to 12/10/2024 for nausea and [...] antibodies. Antibody identification was performed at the [facility]. EGD on 12/09/2024 showed small [...] and demonstrated t(11;14) He was admitted at [facility] between 01/06 and 01/12 again for hyperglycemic hyperosmolar state. After he was stabilized in the ICU, [facility] for further evaluation and treatment. He underwent a left axillary core lymph node biopsy on 01/19/2025 that redemonstrated mantle cell lymphoma. A PET CT scan on 01/22/2025 showed multistation FDG avid lymphadenopathy. He was hospitalized at [facility] again 01/24-01/28 for COVID and was treated [...] drinks nightly. 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 He [...] IOL left SOCIAL HISTORY: He lives in [place], [place]. He quit smoking around November 2024. He started around [age] years old, and he stopped for a period of around 10 years. He was a daily drinker of at least a six pack nightly until around August 2024. 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 He [...] data and medical records. LAB DATA REVIEWED: (Today s [facility]) PET Scan: Lymphomatous involvement [...] such combinations include the MANGROVE trial and [place] [id number], where zanubrutinib is used in combination with [...] which included preparing to see the patient, [id number]-goxk patient care, completing clinical documentation, obtaining and/or [...] High Gila Braxton MD Cc: [facility]ago [address] [facility] [address] . documented in this encounter [facility] 02-10-2025 Note [facility] 02-10-2025 Note [facility] 02-10-2025 History of Present illness Narrative Value Based Care Coordination Chart Review Provider Action / FYI: Upon review of patient chart, the patient is excluded from Transitional Disease Management Patient excluded from TCM outreach: SNF Action taken: No action needed Mer Leon RN February 10, 2025 8:11 AM documented in this encounter [facility] 02-06-2025 Note [facility] 02-06-2025 Note [facility] 02-06-2025 History of Present illness Narrative Images from the original note were not included. Connected Care Unit Progress Note Patient Name: Tere Barone Patient Facility: [facility] Admit Date 01/28/25 Level of Care: Skilled [...] with behavioral disturbance (hcc) - seen by [facility], c/w zoloft 50 mg daiy and [...] Provider Location Dept Phone 02/10/2025 10:00 AM GILA BRAXTON [facility] [phone] 02/17/2025 3:00 PM PRISCILLA SALAS [facility] [phone] HPI: (Per hospital discharge summary) Tere Barone [...] therapy. PT/OT recommended patient would benefit from care home facility. Patient also did have history of [...] staff. Documentation from the previous visit of 02/03/25 has been copied forward. I have reviewed the chart, re-preformed the PE and ROS and updated where appropriate. Current medical decision made today. Electronically signed by Tarun Alicia APRN.[employer] documented in this encounter [facility] 02-03-2025 Note [facility] 02-03-2025 History of Present illness Narrative Images from the original note were not included. Connected Care Unit Progress Note Patient Name: Tere Barone Patient Facility: [facility] Admit Date 01/28/25 Level of Care: Skilled [...] with behavioral disturbance (hcc) - seen by [facility], started on zoloft 50 mg daiy [...] Provider Location Dept Phone 02/03/2025 10:40 AM [facility]M [facility] [phone] 02/10/2025 10:00 AM GILA BRAXTON [facility] [phone] 02/17/2025 3:00 PM PRISCILLA SALAS [facility] [phone] HPI: (Per hospital discharge summary) Tere Barone [...] therapy. PT/OT recommended patient would benefit from care home facility. Patient also did have history of [...] made today. Electronically signed by Rowena Elizabeth APRN.[employer] documented in this encounter [facility] 01-29-2025 Note [facility] 01-29-2025 History of Present illness Narrative POPULATION HEALTH NAVIGATION OUTREACH Action/FYI Pt is undergoing cancer treatment . Chart Review Reason for Outreach Care Gap/HCC or Scheduling Wellness Visits Care Gaps due: N/A Patient Contacted: Unable or unnecessary to reach patient: Chart Review only Navigation Signature: Nimesh Cuellar January 29, 2025 2:48 PM documented in this encounter [facility] 01-29-2025 Note [facility] 01-29-2025 History of Present illness Narrative Images from the original note were not included. Connected Care Unit Progress Note Patient Name: Tere Barone Patient Facility: [facility] Admit Date 01/28/25 Level of Care: Skilled [...] with behavioral disturbance (hcc) - seen by [facility], started on zoloft 50 mg daiy and trazodone 25 mg - recommended to follow up as OP Autoimmune hemolytic anemia, unspecified (hcc) Mantle cell lymphoma, unspecified body region (hcc) - newly diagnosed mantle cell - follow up with hem/onc 02/03 Appointments for Next 60 Days Date Time Provider Location Dept Phone 02/02/2025 3:00 PM [facility] [phone] 02/03/2025 10:40 AM [facility] [phone] 02/10/2025 10:00 AM GILA BRAXTON [facility] [phone] 02/17/2025 3:00 PM PRISCILLA SALAS [facility] [phone] HPI: (Per hospital discharge summary) Tere Barone [...] therapy. PT/OT recommended patient would benefit from care home facility. Patient also did have history of [...] nursing staff. Electronically signed by Rowena Elizabeth APRN.[employer] documented in this encounter [facility] 01-27-2025 Note [facility] 01-27-2025 Note [facility] 01-26-2025 Telephone encounter Note Patient was seen by Dr. Tere Patel with [facility] hem[facility]oncology on 01/25/2025 The note and recommendations are in his chart [facility] [place] inpatient hem/onc team will follow patient while at [facility]. July Pierce MD January 26, 2025 5:59 PM [facility] Work Phone: 01-26-2025 Miscellaneous Notes Patient was seen by Dr. Tere Patel with [facility] hem/oncology on 01/25/2025 The note and recommendations are in his chart [facility] [place] inpatient hem/onc team will follow patient while at [facility]. July Pierce MD January 26, 2025 5:59 PM Patient's called and states that Justin is in the hospital. Voices concerns that he needs treatment but he keep on delaying due to being hospitalized. was asking he could be seen while in the hospital? documented in this encounter [facility] 01-26-2025 Note [facility] 01-26-2025 Telephone encounter Note Images from the original note were not included. Prior authorization approved Payer: [employer] [phone] Note from payer: KEYON Case: [id number], Status: Approved, Coverage Starts on: 06/11/2024 12:00:00 AM, Coverage Ends on: 06/10/2025 12:00:00 AM. Questions? Contact . Approval Details Authorized from June 11, 2024 to June 10, 2025 [facility] 01-26-2025 Miscellaneous Notes Images from the original note were not included. Prior authorization approved Payer: [employer] [phone] Note from payer: KEYON Case: [id number], Status: Approved, Coverage Starts on: 06/11/2024 12:00:00 AM, Coverage Ends on: 06/10/2025 12:00:00 AM. Questions? Contact . Approval Details Authorized from June 11, 2024 to June 10, 2025 ePA received for Blood-Glucose Meter,Continuous (FREESTYLE YESSENIA 3 READER) [facility] Awaiting response documented in this encounter [facility] 01-26-2025 Telephone encounter Note Patient's called and states that Justin is in the hospital. Voices concerns that he needs treatment but he keep on delaying due to being hospitalized. was asking he could be seen while in the hospital? [facility] 01-26-2025 Telephone encounter Note ePA received for Blood-Glucose Meter,Continuous (FREESTYLE YESSENIA 3 READER) [facility] Awaiting response [facility] 01-25-2025 Note [facility] 01-24-2025 Note SARS-COV-2 (AGENT OF COVID-19) RNA: Detected INFLUENZA A RNA: Not detected INFLUENZA B RNA: Not detected RESPIRATORY SYNCYTIAL VIRUS (RSV) RNA: Not detected [facility] Comment on above: Performed By: #### 9 [id number] ####[facility]ORATORYCL[facility] [id number] [address] [place] 01-23-2025 Telephone encounter Note Spouse will call back with any changes to his condition [facility] 01-23-2025 Miscellaneous Notes Spouse will call back with any changes to his condition Noted, continue to monitor for any other signs or symptoms of worsening condition. Notify office for any additional changes. Scarlett Tan APRN.RHONDA Covering for Samm KcDO Message relayed with understanding. Pt got up and ate dinner and went to the bathroom and is sitting up eating dinner a&o and doesn't seem as yellow. Pt spouse will continue to monitor him and take him to the ed if his symptoms change Agree with recommendations for ED for evaluation. Scarlett Tan APRN.CNP Covering for Samm KcDO Reason for Conversation Jaundice Background Pt spouse calling in with C/O Pt looking yellow Pts spouse states Pt is not getting up as much today sign wirer asked for Vitals at time of triage 112/52 & recheck 106/48 97.2 F Eyes do not appear yellow per Pt Pt received blood transfusion last week and last Hemoglobin 8.8 on 01/12 Pt had a PET scan yesterday Pts spouse was very difficult to receive information from. sign wirer asked what is different or concerning that [...] No Additional Information on file. Protocols Used [id number] documented in this encounter [facility] 01-23-2025 Telephone encounter Note Noted, continue to monitor for any other signs or symptoms of worsening condition. Notify office for any additional changes. Scarlett Tan APRN.CNP Covering for Samm Kc DO [facility] Work Phone: 01-23-2025 Telephone encounter Note Message relayed with understanding. Pt got up and ate dinner and went to the bathroom and is sitting up eating dinner a&o and doesn't seem as yellow. Pt spouse will continue to monitor him and take him to the ed if his symptoms change [facility] 01-23-2025 Telephone encounter Note Agree with recommendations for ED for evaluation. Scarlett Tan APRN.CNP Covering for Samm Kc DO [facility] 01-23-2025 Telephone encounter Note Reason for Conversation Jaundice Background Pt spouse calling in with C/O Pt looking yellow Pts spouse states Pt is not getting up as much today sign wirer asked for Vitals at time of triage 112/52 & recheck 106/48 97.2 F Eyes do not appear yellow per Pt Pt received blood transfusion last week and last Hemoglobin 8.8 on 01/12 Pt had a PET scan yesterday Pts spouse was very difficult to receive information from. sign wirer asked what is different or concerning that [...] No Additional Information on file. Protocols Used [id number] [facility] 01-22-2025 History of Present illness Narrative [...] PATIENT PRESENTS WITH AN IMPLANTABLE OR ATTACHED GLASS CUTTING MACHINE OPERATOR: No CREATININE: Creatinine Date Value Ref Range [...] 1118 PATIENT DISCHARGED TO: Ambulatory patient, left [place] department area. Is this a therapy: No A Diagnostic radioactive procedure has taken place, with no further precautions necessary other than routine body substance precautions. More information regarding radiation safety can be found using this link: [email or web address] [email or web address] SIGNATURE: Ligia Nolasco PATIENT NAME: Tere Barone DATE: January 22, 2025 TIME: 11:32 AM PAGER/CONTACT #: documented in this encounter [facility] 01-22-2025 Note [facility] 01-21-2025 Telephone encounter Note Please give verbal [facility] 01-21-2025 Miscellaneous Notes Please give verbal [facility]/ OT is calling Samm Kc DO today to request verbal orders for OT 1 x week for 4 weeks Call back Soy [phone] Patient has been identified by name and birthdate. Person calling: OT Soy Call patient at: on cell [phone] (home) [phone] (cell) Was an appointment scheduled: No Closing statement: Results or non-symptom based questions: Thank you for calling [facility], your call will be returned within the next business day. Cammie Gilman documented in this encounter [facility] 01-20-2025 Telephone encounter Note [facility]/ OT is calling Samm Kc DO today to request verbal orders for OT 1 x week for 4 weeks Call back Soy [phone] Patient has been identified by name and birthdate. Person calling: OT Soy Call patient at: on cell [phone] (home) [phone] (cell) Was an appointment scheduled: No Closing statement: Results or non-symptom based questions: Thank you for calling [facility], your call will be returned within the next business day. Cammie Gilman [facility] 01-19-2025 Progress note Formatting of t [...] PATIENT PRESENTS WITH AN IMPLANTABLE OR ATTACHED GLASS CUTTING MACHINE OPERATOR: N/A RADIOLOGY DEPARTMENT: Biopsy and Ultrasound PERIPHERAL IV DATA: Not applicable SIGNED BY: Marilee Esquivel January 19, 2025 1:44 PM [facility] 01-19-2025 Miscellaneous Notes Radiology Service Progress [...] PATIENT PRESENTS WITH AN IMPLANTABLE OR ATTACHED GLASS CUTTING MACHINE OPERATOR: N/A RADIOLOGY DEPARTMENT: Biopsy and Ultrasound PERIPHERAL IV DATA: Not applicable SIGNED BY: Marilee Esquivel January 19, 2025 1:44 PM documented in this encounter [facility] 01-18-2025 Telephone encounter Note The following approved medication requests have been transmitted electronically. Requested Prescriptions Signed Prescriptions Disp Refills Blood-Glucose Sensor (FREESTYLE YESSENIA 3 PLUS SENSOR) lv 5 each 11 Si each once daily. Authorizing Provider: SAMM KC Blood-Glucose Meter,Continuous (FREESTYLE YESSENIA 3 READER) misc 1 each 0 Si each continuous. Authorizing Provider: SAMM KC DO [facility] 01-18-2025 Miscellaneous Notes The following approved [...] This is for the Freestyle Yessenia 3 [place] The following approved medication requests have been transmitted electronically. Requested Prescriptions Signed Prescriptions Disp Refills Blood-Glucose Sensor (FREESTYLE YESSENIA 3 PLUS SENSOR) lv 5 each 11 Si each once daily. Authorizing Provider: SAMM KC DO Justin is calling Samm Kc DO today to request a freestyle Yessenia 3+ reader be sent to [facility] in [place] on [address] Patient does have the sensors just no reader. Also patient has a flip phone and unable to add apps. Patient has been identified by name and birthdate. Duration of symptoms: ongoing Person calling: spouse: Bg Call patient at: on cell [phone] (home) [phone] (cell) Was an appointment scheduled: No Cammie Gilman documented in this encounter [facility] 01-16-2025 Telephone encounter Note Order pended for your review and approval if agreeable [facility] 01-16-2025 Telephone encounter Note This is for the Freestyle Yessenia 3 [place] [facility] 01-15-2025 Telephone encounter Note The following approved medication requests have been transmitted electronically. Requested Prescriptions Signed Prescriptions Disp Refills Blood-Glucose Sensor (FREESTYLE YESSENIA 3 PLUS SENSOR) lv 5 each 11 Si each once daily. Authorizing Provider: SAMM KC DO [facility] 01-15-2025 Telephone encounter Note Justin is calling Samm Kc DO today to request a freestyle Yessenia 3+ reader be sent to [facility] in [place] on [address] Patient does have the sensors just no reader. Also patient has a flip phone and unable to add apps. Patient has been identified by name and birthdate. Duration of symptoms: ongoing Person calling: spouse: Bg Call patient at: on cell [phone] (home) [phone] (cell) Was an appointment scheduled: Bindu Gilman [facility] 01-14-2025 Note [facility] 01-13-2025 Telephone encounter Note [facility] aware that Dr. Kc will follow. [facility] 01-13-2025 Miscellaneous Notes [facility] aware that Dr. Kc will follow. Will follow [facility] is calling to confirm that Dr. Kc will follow patient for home health care. Justin is being discharged today. care home, physical and occupational therapy requested. Please call [facility] back at [phone] documented in this encounter [facility] 01-12-2025 Telephone encounter Note Will follow [facility] 01-12-2025 Telephone encounter Note [facility] is calling to confirm that Dr. Kc will follow patient for home health care. Justin is being discharged today. care home, physical and occupational therapy requested. Please call [facility] back at [phone] [facility] Work Phone: 01-12-2025 Note [facility] 01-11-2025 Note [facility] 01-10-2025 Note [facility] 01-09-2025 Note [facility] 01-09-2025 Note [facility] 01-09-2025 Telephone encounter Note Order canceled, patient is being transferred to main campus. [facility] 01-09-2025 Miscellaneous Notes Order canceled, patient is being transferred to [place]. Attempted to speak with Bg, I left a voicemail for her to return our call so we can assist in scheduling the PET Scan. Please contact patient's , Bg to schedule PET scan. Sheron Grimes documented in this encounter [facility] 01-09-2025 Telephone encounter Note Attempted to speak with Bg, I left a voicemail for her to return our call so we can assist in scheduling the PET Scan. [facility] 01-09-2025 Note [facility] 01-08-2025 Note [facility] 01-08-2025 Note [facility] 01-08-2025 Telephone encounter Note Please contact patient's , Bg to schedule PET scan. Sheron Grimes [facility] 01-08-2025 Telephone encounter Note Will follow [facility] 01-08-2025 Miscellaneous Notes Will follow Samm Yamini, DO Please advise if you are agreeable [...] care clinicians may also obtain orders from [facility] Virtualist Providers Thank you and we would be happy to answer any questions. Rakel Briggs LPN 01/08/2025 3:22 PM documented in this encounter [facility] 01-08-2025 Telephone encounter Note Samm Kc, [...] care clinicians may also obtain orders from [facility] Virtualist Providers Thank you and we would be happy to answer any questions. Rakel Briggs LPN 01/08/2025 3:22 PM [facility] 01-08-2025 Note [facility] 01-08-2025 History of Present illness Narrative Transitional Care Management (TCM) Inpatient Outreach N/A - No specialty updates needed Summary: Patient admitted to: [facility] Patient admitted on: 01-06-25 Admitted for: Hyperglycemic Hyperosmolar Nonketotic Coma Contact made with patient: Yes Everettisa, my name is Vy Houston RN and I am calling from the [facility] on behalf of Samm Kc DO. I understand that you are currently admitted at [facility] and I am calling to cover the [...] your caller ID may not identify as [facility]. During our outreach with you, we will ask you about any new or worsening symptoms and ensure you have a follow up appointment with your provider. Best Contact after Hospital Discharge I would like to confirm your contact information. Do you have a mobile phone, landline, or both? and Landline: [phone] Is this the best number to reach you? Yes Do you give us permission to speak with anyone else if you are unavailable to speak with us? Yes. Name Bg Barone, relationship Spouse, and contact number Home or Mobile number. Primary Care Provider (PCP) Hospital Discharge Appointment Does patient already have a PCP follow up appointment within 7-14 days after hospital discharge? No MyChart Patient [employer] status is: Inactive/Pending Please consider signing up for the [facility] secure computer connection called [employer]. [employer] is free, allows you access to a portion of your medical record, lets you request appointment or medication refills, and lets you see when you are due for health maintenance. We can contact you via e-mail and release medical results directly to you through [employer] as well. Thank you for taking the time to speak with me today. We look forward to working with you once you are discharged home from the hospital. Vy Houston RN January 08, 2025 2:10 PM documented in this encounter [facility] 01-07-2025 Note [facility] 01-07-2025 Note [facility] 01-07-2025 History of Present illness Narrative Fllow [...] or concerns? none documented in this encounter [facility] 01-07-2025 Note HNO ID: [id number] Author: OK BRYANT RN Service: Nursing Author Type: Registered Nurse Type: Nursing Progress Note Filed: 01/07/2025 17:42 Note Text: Other: 1700: Report given to Tiera PEPE on 2N. Patient and made aware of transfer to 257. [facility] 01-07-2025 Note [facility] 01-07-2025 Note [facility] 01-06-2025 Note [facility] 01-06-2025 Telephone encounter Note Reason for Call: [...] monitor 2. ONSET: was checked at the [facility] lab this afternoon. Patient's received a call stating patient's blood sugar was over 400. Unable to locate telephone note in [employer] with this information. tried calling the backup sawyer back in [place], but bagging machine operator could not locate this physician-Dr Sedrick [...] triage. Protocols used: Diabetes - High Blood [id number]-[id number]-TL [facility] 01-06-2025 Miscellaneous Notes Reason for Call: [...] monitor 2. ONSET: was checked at the [facility] lab this afternoon. Patient's received a call stating patient's blood sugar was over 400. Unable to locate telephone note in [employer] with this information. tried calling the backup sawyer back in [place], but bagging machine operator could not locate this physician-Dr Sedrick [...] triage. Protocols used: Diabetes - High Blood [id number]-[id number]-DF documented in this encounter [facility] 01-06-2025 Note [facility] 01-06-2025 Procedure note Associated Ord er(s): BONE MARROW BIOPSY Post-Procedure Diagnose(s): Autoimmune hemolytic anemia (HCC) BEDSIDE PROCEDURE NOTE BONE MARROW BIOPSY Date/Start Time: 01/06/2025 2:40 PM Date/Stop Time: 01/06/2025 2:55 PM Performed by: Marti Garcia APRN.[employer]ER MOLDING [employer] Authorized by: Marti Garcia APRN.[employer] MOLD[employer] Where was Patient When this Procedure was Performed: [facility] Informed Consent Consent Obtained: Written [place] Protocol A moment to CARE was completed. [...] DATE: January 06, 2025 TIME: 3:00 PM [facility] Work Phone: 01-06-2025 Procedure note Associated Ord er(s): BONE MARROW BIOPSY Post-Procedure Diagnose(s): Autoimmune hemolytic anemia (HCC) BEDSIDE PROCEDURE NOTE BONE MARROW BIOPSY Date/Start Time: 01/06/2025 2:40 PM Date/Stop Time: 01/06/2025 2:55 PM Performed by: Marti Garcia APRN.[employer] MOLD[employer] TR[employer] Authorized by: Marti Garcia APRN.[employer]ER MOLDING [employer] TRIM Where was Patient When this Procedure was Performed: [facility] Informed Consent Consent Obtained: Written [place] Protocol A moment to CARE was completed. [...] TIME: 3:00 PM documented in this encounter [facility] 01-06-2025 History of Present illness Narrative [...] neuritis, recurrent falls who had admission to [facility] from 12/06/2024 to 12/10/2024 when he presented [...] antibodies. Antibody identification was performed at the [facility]. EGD on 12/09/2024 showed small [...] high hyperglycemia (DKA) Antibody blood evaluation at [facility] showed resolution of warm antibodies presence [...] Comment: diagnosed via EGD on 12/09/2024 at [facility] s/p APC Plan: Monitor. (N17.9) TONA (acute kidney injury) Comment: creatinine worsened at 1.66 along with DKA Plan: ER visit with admission was recommended. confirmed she will take patient. Return in about 3 weeks (around 01/27/2025). I spent 40 minutes in the visit, with more than 50% of the total ccmn-dt-ryjc time of the visit in counseling / coordination of care. HPI: Patient is a delightful 74 year old gentleman with type 2 DM, colon polyps, left ureteral calculus, renal failure, gastritis, dementia, hearing loss, right carotid artery stenosis, thoracic and lumbosacral neuritis, recurrent falls who had admission to [facility] from 12/06/2024 to 12/10/2024 when he presented [...] antibodies. Antibody identification was performed at the [facility]. EGD on 12/09/2024 showed small [...] high hyperglycemia (DKA) Antibody blood evaluation at [facility] showed resolution of warm antibodies presence [...] Monocytes % 01/06/2025 5.5 % Final Abs [place] 01/06/2025 0.26 <0.87 k/uL Final Eosinophils % [...] Monocytes % 01/06/2025 5.2 % Final Abs [place] 01/06/2025 0.23 <0.87 k/uL Final Eosinophils % [...] January 06, 2025) documented in this encounter [facility] 01-06-2025 Note [facility] 01-06-2025 Telephone encounter Note Call made to Pts Spouse with understanding. Pts spouse will call with an update [facility] 01-06-2025 Miscellaneous Notes Call made to Pts Spouse with understanding. Pts spouse will call with an update Hold BP meds for 48 hours and recheck BPs this evening/tomorrow. Will have him come in if Sx do not resolve off meds in 48 hours. Thanks Reason for Call: B/p Outcome: He has an appt today a 1 pm with his Oil Pipe Inspector Helper which is in one hour. Reason for [...] anemia. He has an appt with his Oil Pipe Inspector Helper at 1 pm today. Protocols used: Blood Pressure - Qwq-UKLRD-AX documented in this encounter [facility] 01-06-2025 Telephone encounter Note Hold BP meds for 48 hours and recheck BPs this evening/tomorrow. Will have him come in if Sx do not resolve off meds in 48 hours. Thanks [facility] 01-06-2025 Telephone encounter Note Reason for Call: B/p Outcome: He has an appt today a 1 pm with his Oil Pipe Inspector Helper which is in one hour. [facility] 01-06-2025 Telephone encounter Note Reason [...] anemia. He has an appt with his Oil Pipe Inspector Helper at 1 pm today. Protocols used: Blood Pressure - Lma-ZQVZI-VQ [facility] 01-05-2025 Telephone encounter Note Order faxed. Pt notified [facility] 01-05-2025 Miscellaneous Notes Order faxed. Pt notified Consult is in, please send. LISA Condon Inboxologist Covering provider for Samm KcDO Pts spouse calling in with [employer] on the line requesting order for Hematology/oncology Per insurance there is not a order for this and Pt has appt tmrw. Order pended for review Once signed, order needs to be faxed to [employer] Referral team documented in this encounter [facility] 01-05-2025 Telephone encounter Note Consult is in, please send. LISA Condon Inboxologist Covering provider for Samm Kc, DO [facility] 01-05-2025 Telephone encounter Note Pts spouse calling in with [employer] on the line requesting order for Hematology/oncology Per insurance there is not a order for this and Pt has appt tmrw. Order pended for review Once signed, [facility] 12-30-2024 Telephone encounter Note Message relayed [facility] 12-30-2024 Miscellaneous Notes Message relayed Sent LISA Condon Inboxologist Covering provider for Samm Kc, DO Patient's received message with understanding. Please resend glipizide Rx to [facility] on [address]. I reviewed with Dr. [...] Inboxologist Covering provider for Samm Kc, DO Spoke to , patient in back [...] APRN.RHONDA Cespedes Inboxologist Covering provider for Samm Yamini, DO documented in this encounter [facility] 12-30-2024 Telephone encounter Note Sent LISA Condon Inboxologist Covering provider for Samm Kc, DO [facility] 12-29-2024 Telephone encounter Note Patient's received message with understanding. Please resend glipizide Rx to [facility] on [address] too. [facility] 12-29-2024 Telephone encounter Note I reviewed [...] Inboxologist Covering provider for Samm Kc, DO [facility] 12-29-2024 Telephone encounter Note Spoke to , patient in back ground. She denies any symptoms other than thirst. Advised to to drink plenty of water. Is there something that can be prescribed while he's on the steroid? [facility] 12-29-2024 Telephone encounter Note Please notify patient of very high blood sugar above 400. Any symptoms of weakness, confusion, excessive thirst, nausea, vomiting, or abdominal pain? Needs ER if yes. He is currently being treated with steroids for anemia which is the likely cause of elevation. Karol Rodriguez APRN.RHONDA Cespedes Inboxologist Covering provider for Samm Kc, [facility] 12-29-2024 Instructions Pola Garcia MD - [...] on January 09. documented in this encounter [facility] 12-29-2024 Note [facility] 12-29-2024 History of Present illness Narrative [facility] December 29, 2024 9:05 AM Recording using [employer] software for draft documentation of the visit was discussed with the patient/authorized field service representative; all questions welcomed and answered. Patient/authorized field service representative agreed to proceed Patient Name: Tere [...] Time: 9:05 AM Staff, Internal Medicine [facility] Medical Decision Making: Problems: High: Chronic illness with severe change and Illness/injury w/ threat to life/body function Risk: High: High risk from testing/treatment and Drug therapy requiring intensive monitoring Medical Decision Making Level: 5 - High documented in this encounter [facility] 12-27-2024 History of Present illness Narrative [...] PATIENT PRESENTS WITH AN IMPLANTABLE OR ATTACHED GLASS CUTTING MACHINE OPERATOR: No RADIOLOGY DEPARTMENT: CT; Exam(s) Completed: Chest and Neck PERIPHERAL IV DATA: Not applicable SIGNED BY: RT Airam(R) December 27, 2024 10:58 AM documented in this encounter [facility] 12-27-2024 Note [facility] 12-23-2024 Instructions July Pierce MD - 12/23/2024 [...] of pneumonia For scheduling questions, please call [phone] (tests and appointments). For symptom management or care coordination questions, please call [facility] at [phone] or use my chart to reach us. After hours with medical questions, please call the doctor on-call at [phone]. Thank you, July Pierce MD documented in this encounter [facility] 12-23-2024 Note [facility] 12-23-2024 History of Present illness Narrative Consultation [...] neuritis, recurrent falls who had admission to [facility] from 12/06/2024 to 12/10/2024 when he presented [...] antibodies. Antibody identification was performed at the [facility]. EGD on 12/09/2024 showed small [...] sided diverticulosis. He was seen by hematology withDrBonifacio Gonzalez who started on prednisone 90 mg [...] mae test and antibody blood evaluation at [facility] Patient was placed on Bactrim every Sun Wed Sun for PJP pneumonia prophylaxis Patient was placed [...] with more than 50% of the total utto-ps-mywl time of the visit in counseling / coordination of care. HPI: Patient is a delightful 74 year old gentleman with type 2 DM, colon polyps, left ureteral calculus, renal failure, gastritis, dementia, hearing loss, right carotid artery stenosis, thoracic and lumbosacral neuritis, recurrent falls who had admission to [facility] from 12/06/2024 to 12/10/2024 when he presented [...] antibodies. Antibody identification was performed at the [facility]. EGD on 12/09/2024 showed small [...] Range Status 09/16/2022 6.8 % Final Abs [place] Date Value Ref Range Status 09/16/2022 0.62 [...] Samm Kc DO documented in this encounter [facility] 12-10-2024 Note TERE BARONE :1950 Registration Date:12/06/2024 Admission Information Admit Date/Time:12/06/2024 22:01 [...] Nga Mendez MD 12/09/2024 02:16 PM EDT Signed By: NGA MENDEZ MD CT ABD [...] Michelle Ward MD 12/06/2024 08:57 PM EDT RP Signed By: MICHELLE WARD MD Pre-Procedure Procedure Date: (more content not included)... [facility] 12-10-2024 Note Patient Education [facility] Diabetes and Endocrinology Learning About Type [...] treated? Treatment for type 2 diabetes will microsoft exchange administrator time to meet your needs. But the [...] Where can you learn more? Go to [email or web address]/patientEd Enter H839 in the search box to learn more about Learning About Type 2 Diabetes. Current as of: January 05, 2021 Content Version: 13.3 ? [employer]. Care instructions adapted under license by your healthcare professional. If you have questions about a medical condition or this instruction, always ask your healthcare professional. [employer] disclaims any warranty or liability for your [...] the most commo (more content not included)... [facility] 12-07-2024 Note TERE BARONE :1950 Registration Date:12/06/2024 Chief Complaint Vomiting History of [...] = Zofran), 4 mg= 1 tabs, ORAL, [id number], PRN semaglutide(Rybelsus 14 mg oral tablet), 14 [...] EDT Protime P (more content not included)... [facility] 12-06-2024 Telephone encounter Note Reason for Call: [...] care provider plans to take him to [facility] at this time. Encouraged to well puller head and call 911 if anything worsens or changes en route. Reason for Disposition [1] Confusion getting worse AND [2] new-onset (hours to 3 days) Protocols used: Dementia Symptoms and Dfeohtkkt-GSKSL-ZA [facility] Work Phone: 12-06-2024 Miscellaneous Notes Reason [...] care provider plans to take him to [facility] at this time. Encouraged to well puller head and call 911 if anything worsens or changes en route. Reason for Disposition [1] Confusion getting worse AND [2] new-onset (hours to 3 days) Protocols used: Dementia Symptoms and Vagdpchoj-[id number]-GY documented in this encounter [facility] 12-04-2024 Telephone encounter Note Spoke to , she will call back to schedule [facility] 12-04-2024 Miscellaneous Notes Spoke to , she will call back to schedule LVM to call back and schedule with Karol Rodriguez RD Done. Thank you HH Please place an order for the patient to see Karol Rodriguez RD. Order that is in the system expires next month. Please advise documented in this encounter [facility] 11-26-2024 Telephone encounter Note LVM to call back and schedule with Karol Rodriguez RD [facility] 11-26-2024 Telephone encounter Note Done. Thank you HH [facility] 11-26-2024 Telephone encounter Note Please place an order for the patient to see Karol Rodriguez RD. Order that is in the system expires next month. Please advise [facility] 11-26-2024 Instructions Sedrick Roberts MD - 11/26/2024 3:19 PM EDT - Continue metformin 500 mg once a day - Continue Rybelsus 14 mg day - Please check your blood sugar at least once a week - Schedule with the eye clinic - Follow up with our nurse Migdalia in 6 months and with me in 1 year documented in this encounter [facility] 11-26-2024 Note [facility] 11-26-2024 History of Present illness Narrative ENDOCRINOLOGY [...] oxygen requirements. He was discharge to a senior care on insulin and metfomrin. He developed thrombocytopenia [...] Sedrick Roberts MD documented in this encounter [facility] 11-06-2024 Note [facility] 11-06-2024 History of Present illness Narrative POPULATION HEALTH NAVIGATION OUTREACH Action/FYI Gaps due: DIABETIC RETINAL EXAM A1C No HCCs, no med adherence. LVM/Updated notes Reason for Outreach Care Gap/HCC or Scheduling Wellness Visits Care Gaps due: Diabetic Eye Exam HBA1C Patient Contacted: Unable or unnecessary to reach patient: Left message Updated appointment notes Navigation Signature: Tu Pickard MA November 06, 2024 11:25 AM documented in this encounter [facility] 10-08-2024 Telephone encounter Note Received incoming fax from [facility] pharmacy requesting the following refill: Requested Prescriptions Pending Prescriptions Disp Refills memantine (NAMENDA) 10 mg tablet 180 tablet 1 Sig: Take 1 tablet by mouth two times a day. Forwarded message to provider to review and advise. Megan Barron RN [facility] 10-08-2024 Miscellaneous Notes Received incoming fax from [facility] requesting the following refill: Requested Prescriptions Pending Prescriptions Disp Refills memantine (NAMENDA) 10 mg tablet 180 tablet 1 Sig: Take 1 tablet by mouth two times a day. Forwarded message to provider to review and advise. Megan Barron RN documented in this encounter [facility] 10-06-2024 Telephone encounter Note 08/05/2024 Visit date not found Pharmacy calls in requesting the following refill(s): Requested Prescriptions Pending Prescriptions Disp Refills varenicline (CHANTIX) 1 mg tablet [Pharmacy Med Name: varenicline tartrate 1 mg tablet] 60 tablet 11 Sig: Take 1 tablet by mouth two times a day with meals. [facility] 10-06-2024 Miscellaneous Notes 08/05/2024 Visit date not found Pharmacy calls in requesting the following refill(s): Requested Prescriptions Pending Prescriptions Disp Refills varenicline (CHANTIX) 1 mg tablet [Pharmacy Med Name: varenicline tartrate 1 mg tablet] 60 tablet 11 Sig: Take 1 tablet by mouth two times a day with meals. documented in this encounter [facility] 09-21-2024 History and physical note Images from the original note were not included. General Surgery Colonoscopy Consult REASON FOR VISIT Tere Barone is a 74 year old male who is scheduled for a consult at the request of Karol Rodriguez for Consult (History of colonic polyps Last Colonoscopy 05/29/24/). My final recommendations will be communicated back [...] dysfunction without heart failure 03/19/2024 Sunshine Duckworth APRN.[employer] No Ascending aorta dilatation 03/19/2024 Sunshine Duckworth APRN.[employer] No Dementia with behavioral disturbance (HCC) 02/09/2024 Sammi Velarde BENCH ASSEMBLER BATTERY.[employer] No Screening for colon cancer 08/09/2023 Lise Corado MD, PhD No Type 2 diabetes mellitus without complication, without long-term current use of insulin (HCC) 07/05/2023 Migdalia Knapp APRN.[employer] No Sensorineural hearing loss, bilateral 10/23/2022 PavloDenisa Kincaid, AUD No Carotid stenosis, asymptomatic, bilateral 10/12/2021 Cornelio Persaud MD No Cardiomyopathy, ischemic 09/13/2021 Priscilla Salas MD No Essential hypertension 08/03/2021 Taty Leslie BENCH ASSEMBLER [employer]TERY.[employer] No Mixed hyperlipidemia 08/03/2021 Taty Leslie APRN.[employer] No Granular casts present in urine 08/03/2021 Taty Leslie [employer]ENCH ASSEMBLER [employer]TERY.[employer] No Tobacco use disorder 07/24/2021 Colin Nagy MD No NS (nuclear sclerosis), right 06/16/2021 Paolo Banks MD No Posterior subcapsular polar age-related cataract of right eye 06/16/2021 Paolo Banks MD No Combined forms of age-related cataract of right eye 06/14/2021 Halliefley, Adam, OD No S/P lumbar fusion 10/01/2017 Hilary Koch MD No Spondylolisthesis of lumbar region 10/01/2017 Hilary Koch MD No Pseudophakia of left eye 05/20/2013 Shen Grant MD No 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 Shen Grant MD No DUPUYTREN'S CONTRACTURE 04/20/2008 Fabian AnnHist)MD No Carpal tunnel syndrome 04/20/2008 Fabian Ann (Hist)MD No Osteoarthrosis, 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 generalized or localized, other specified sites 04/20/2008 Fabian AnnHist)MD No Displacement of lumbar intervertebral disc without myelopathy 11/23/2000 Charly Call DO No Alcohol abuse 04/18/2022 Priscilla Salas MD 07/08/2024 Samm Kc, Occlusion and stenosis of unspecified carotid artery 04/18/2022 Priscilla Salas MD 01/12/2024 Background, Reporting Acute respiratory failure with hypoxia (HCC) 08/10/2021 Nga White, BENCH ASSEMBLER BATTERY.[employer] 10/10/2022 Samm Kc DO Multiple falls 08/04/2021 Taty Leslie, BENCH ASSEMBLER BATTERY.[employer] 10/10/2022 Samm Kc DO Obesity, Class I, BMI 30-34.9 08/03/2021 Taty Leslie, BENCH ASSEMBLER BATTERY.[employer] 07/08/2024 Samm Kc, COVID-19 08/03/2021 Taty Leslie, BENCH ASSEMBLER BATTERY.[employer] 10/10/2022 Samm Kc, Frequent falls 08/03/2021 Taty Leslie, BENCH ASSEMBLER BATTERY.[employer] 10/10/2022 Samm Kc DO Syncope 07/23/2021 Price Earl, BENCH ASSEMBLER BATTERY.[employer] 10/10/2022 Samm Kc DO Elevated troponin 07/23/2021 Price Earl, BENCH ASSEMBLER BATTERY.[employer] 10/10/2022 Samm Kc DO Slurred speech 07/23/2021 Price Earl, BENCH ASSEMBLER BATTERY.[employer] 07/24/2021 Colin Nagy MD Leukocytosis 07/23/2021 Price Earl, BENCH ASSEMBLER BATTERY.[employer] 07/24/2021 Colin Nagy MD Altered mental status 07/23/2021 Price Earl, BENCH ASSEMBLER BATTERY.[employer] 07/24/2021 Colin Nagy MD Chronic bilateral low back pain without sciatica 10/01/2017 Hilary Koch MD 07/08/2024 Samm Kc DO Pain in joint, hand 04/20/2008 Fabian Ann (Hist)MD 07/08/2024 Samm Kc DO Sprain of lumbar region 11/23/2000 Charly Call DO 07/08/2024 Samm Kc DO Thoracic or lumbosacral neuritis or radiculitis, unspecified 11/23/2000 Charly Call DO 10/10/2022 Samm Kc DO MEDICATIONS Current Outpatient [...] was discussed with the patient or authorized field service representative. The patient or authorized field service representative has agreed to proceed with the sensitive examination. Diagnostic tests reviewed for today's visit: Last colonoscopy 05/2024 Indications: High risk colon cancer surveillance: Personal history of adenomatous colonic polyps [facility] Gastrointestinal Endoscopy Patient Name: Tere Barone [...] specimen was done by the nurse and nanotechnology engineering technician using the patient's name, date and [...] CC: Samm Kc DO CC: Karol Rodriguez [facility] 09-21-2024 History and physical note Images [...] dysfunction without heart failure 03/19/2024 Sunshine Duckworth APRN.[employer] No Ascending aorta dilatation 03/19/2024 Sunshine Duckworth APRN.INSTALL[employer] No Dementia with behavioral disturbance (HCC) 02/09/2024 Sammi Velarde BENCH ASSEMBLER BATTERY.INSTALL[employer] No Screening for colon cancer 08/09/2023 Lise Corado MD, PhD No Type 2 diabetes mellitus without complication, without long-term current use of insulin (HCC) 07/05/2023 Migdalia Knapp BENCH ASSEMBLER BATTERY.[employer] No Sensorineural hearing loss, bilateral 10/23/2022 Denisa Greenwood AUD No Carotid stenosis, asymptomatic, bilateral 10/12/2021 Cornelio Persaud MD No Cardiomyopathy, ischemic 09/13/2021 Priscilla Salas MD No Essential hypertension 08/03/2021 Taty Leslie BENCH ASSEMBLER BATTERY.INSTALL[employer] No Mixed hyperlipidemia 08/03/2021 Taty Leslie BENCH ASSEMBLER BATTERY.INSTALL[employer] No Granular casts present in urine 08/03/2021 Taty Leslie BENCH ASSEMBLER BATTERY.[employer] No Tobacco use disorder 07/24/2021 Colin Nagy MD No NS (nuclear sclerosis), right 06/16/2021 Paolo Banks MD No Posterior subcapsular polar age-related cataract of right eye 06/16/2021 Paolo Banks MD No Combined forms of age-related cataract of right eye 06/14/2021 Xochiltey, Adam, OD No S/P lumbar fusion 10/01/2017 [...] abuse 04/18/2022 Priscilla Salas MD 07/08/2024 Samm Kc, Occlusion and stenosis of unspecified carotid artery 04/18/2022 Priscilla Salas MD 01/12/2024 Background, Reporting Acute respiratory failure with hypoxia (HCC) 08/10/2021 Nga White, BENCH ASSEMBLER BATTERY.INSTALLER [employer] 10/10/2022 Samm Kc, Multiple falls 08/04/2021 Taty Leslie, BENCH ASSEMBLER BATTERY.INSTALLER [employer]OLDING [employer] 10/10/2022 Samm Kc, Obesity, Class I, BMI 30-34.9 08/03/2021 Taty Leslie, BENCH ASSEMBLER BATTERY.INSTALLER [employer] 07/08/2024 Samm Kc, COVID-19 08/03/2021 Taty Leslie, BENCH ASSEMBLER BATTERY.INSTALLER [employer] 10/10/2022 Samm Kc, Frequent falls 08/03/2021 Taty Leslie, BENCH ASSEMBLER BATTERY.INSTALL[employer] 10/10/2022 Samm Kc, DO Syncope 07/23/2021 Price Earl, BENCH ASSEMBLER BATTERY.INSTALL[employer] 10/10/2022 Samm Kc, Elevated troponin 07/23/2021 Price Earl, BENCH ASSEMBLER BATTERY.INSTALLER [employer]OLDING [employer] TRIM 10/10/2022 Samm Kc, Slurred speech 07/23/2021 Price Earl, BENCH ASSEMBLER BATTERY.INSTALLER [employer]OLDING [employer] TRIM 07/24/2021 Colin Nagy MD Leukocytosis 07/23/2021 Price Earl, BENCH ASSEMBLER BATTERY.INSTALLER [employer]OLDING [employer] 07/24/2021 Colin Nagy MD Altered mental status 07/23/2021 Price Earl, BENCH ASSEMBLER BATTERY.INSTALLER [employer]OLDING [employer]IM 07/24/2021 Colin Nagy MD Chronic bilateral low back pain without sciatica 10/01/2017 Hilary Koch MD 07/08/2024 Samm Kc DO Pain in joint, hand 04/20/2008 Fabian Ann (Hist)MD 07/08/2024 Samm Kc DO Sprain of lumbar region 11/23/2000 Charly Call DO 07/08/2024 Samm Kc DO Thoracic or lumbosacral neuritis or radiculitis, unspecified 11/23/2000 Charly Call DO 10/10/2022 Samm Kc DO MEDICATIONS Current Outpatient [...] was discussed with the patient or authorized field service representative. The patient or authorized field service representative has agreed to proceed with the sensitive examination. Diagnostic tests reviewed for today's visit: Last colonoscopy 05/2024 Indications: High risk colon cancer surveillance: Personal history of adenomatous colonic polyps [facility] Gastrointestinal Endoscopy Patient Name: Tere Barone [...] specimen was done by the nurse and nanotechnology engineering technician using the patient's name, date and [...] CC: Karol Rodriguez documented in this encounter [facility] 09-11-2024 Note [facility] 09-11-2024 History of Present illness Narrative SERVICE [...] for Colon Cancer Dementia With Behavioral Disturbance ([facility]) 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 Ascending Aorta [...] to sense or locate site of 5.07 [place] Sandra monofilament sensation bilateral Musculoskeletal: Noncontributory Derm: [...] El Retana DPM documented in this encounter [facility] 09-10-2024 Instructions Manda Velasquez, - 09/10/2024 2:51 PM EDT COLONOSCOPY BOWEL [...] am on dialysis? A: Please consult your combo welder prior to scheduling to get instructions pertinent to you. In general, dialysis patients take the [employer] bowel prep and have the procedure same [...] of the day. documented in this encounter [facility] 09-02-2024 Telephone encounter Note Advised Bg that consult order was placed Warm transferred to a equipment scheduler to make appointment [facility] 09-02-2024 Miscellaneous Notes Advised Bg that consult order was placed Warm transferred to a equipment scheduler to make appointment Sure, GI consult has been placed. Karol Rodriguez APRN.RHONDA [place] Inboxologist Covering provider for Samm Kc DO [...] GI for further evaluation. Karol Rodriguez APRN.CNP Justin is calling Samm Kc DO today [...] for surveillance. Procedure Code(s): --- Professional --- 60288, Colonoscopy, flexible; with removal of tumor(s), polyp(s), or other lesion(s) by snare technique Patient has been identified by name and birthdate. Duration of symptoms: N/A Person calling: spouse: Bg [phone] Was an appointment scheduled: No Closing statement: Results or non-symptom based questions: Thank you for calling [facility], your call will be returned within the next business day. Argentina Simpson documented in this encounter [facility] 09-02-2024 Telephone encounter Note Sure, GI consult has been placed. LISA Condon Inboxologist Covering provider for Samm Kc DO [facility] 09-01-2024 Telephone encounter Note Spoke with Bg and advised of message below Verbalizes understanding She states that he has not mentioned any concerning symptoms but is asking if he can have a GI referral to discuss family history concerns along with concerns that he has polyps with every colonoscopy Please advise if referral can be placed and we can assist with appointment [facility] 09-01-2024 Telephone encounter Note I reviewed [...] GI for further evaluation. Karol Rodriguez APRN.RHONDA [facility] 09-01-2024 Telephone encounter Note Justin is [...] for surveillance. Procedure Code(s): --- Professional --- 82073, Colonoscopy, flexible; with removal of tumor(s), polyp(s), or other lesion(s) by snare technique Patient has been identified by name and birthdate. Duration of symptoms: N/A Person calling: spouse: Bg [phone] Was an appointment scheduled: No Closing statement: Results or non-symptom based questions: Thank you for calling [facility], your call will be returned within the next business day. Argenitna Orosco Pss [facility] 08-29-2024 Telephone encounter Note Name of caller: Kavita Relation to patient: ex spouse Reason for call: Other question Patient's documented phone number: [phone] (home) Last visit in this department: 08/05/2024 Last visit with PCP: 08/05/24 Patient question/concern: ex spouse calling she he is asking if pt can have something so that he can sleep at night or what do you recommend to give him Can we send you a response via MyChart? No Routed message to Dr. Garcia May we leave a message? Yes Tammie Henry [facility] Work Phone: 08-29-2024 Miscellaneous Notes Name of caller: Kavita Relation to patient: ex spouse Reason for call: Other question Patient's documented phone number: [phone] (home) Last visit in this department: 08/05/2024 Last visit with PCP: 08/05/24 Patient question/concern: ex spouse calling she he is asking if pt can have something so that he can sleep at night or what do you recommend to give him Can we send you a response via MyChart? No Routed message to Dr. Garcia May we leave a message? Yes Tammie Henry documented in this encounter [facility] 08-20-2024 Telephone encounter Note Order mailed to Bg at address on file [facility] 08-20-2024 Miscellaneous Notes Order mailed to Bg at address on file Name of caller: Bg Relation to patient: Caregiver ( ex spouse ) Reason for call: Orders Patient's documented phone number: [phone] (home) Last visit in this department: 08/05/2024 Last visit with PCP: 08/05/2024 Patient question/concern: Bg calling to ask for a referral to [facility] - they provide help in the home, relieve the caregiver and give assistance with activities of daily living. Please mail to caregiver at the address on file. Can we send you a response via MyChart? No Routed message to Dr. Garcia May we leave a message? Yes Thelma Vargas documented in this encounter [facility] 08-19-2024 Telephone encounter Note Name of caller: Bg Relation to patient: Caregiver ( ex spouse ) Reason for call: Orders Patient's documented phone number: [phone] (home) Last visit in this department: 08/05/2024 Last visit with PCP: 08/05/2024 Patient question/concern: Bg calling to ask for a referral to [facility] - they provide help in the home, relieve the caregiver and give assistance with activities of daily living. Please mail to caregiver at the address on file. Can we send you a response via [employer]? No Routed message to Dr. Garcia May we leave a message? Yes Thelma Vargas [facility] 08-06-2024 Telephone encounter Note Spouse called back and message was reviewed with her and she expressed understanding. [facility] 08-06-2024 Miscellaneous Notes Spouse called back [...] call: antidepressant meds Patient's documented phone number: [phone] (home) Last visit in this department: 08/05/2024 Last visit with PCP: 08/05/2024 Patient question/concern: spouse calling she said it was mentioned at the OV that he was going to prescribe a antidepressant medication for pt spouse said she want to know were you sending an antidepressant for pt to the pharmacy Can we send you a response via [employer]? No Routed message to Dr. Garcia May we leave a message? Yes Tammie Henry documented in this encounter [facility] 08-06-2024 Telephone encounter Note I called the patient's spouse, and left a message to call us back. Call back number provided. [facility] 08-06-2024 Telephone encounter Note Not yet. Too many changes too fast. I was planning on starting antidepressant in November at the follow up appointment. Too many medications too quick can cause unexpected differences. Pola Garcia MD [facility] 08-05-2024 Telephone encounter Note Name of caller: Mrs. Barone Relation to patient: spouse Reason for call: antidepressant meds Patient's documented phone number: [phone] (home) Last visit in this department: 08/05/2024 Last visit with PCP: 08/05/2024 Patient question/concern: spouse calling she said it was mentioned at the OV that he was going to prescribe a antidepressant medication for pt spouse said she want to know were you sending an antidepressant for pt to the pharmacy Can we send you a response via [employer]? No Routed message to Dr. Garcia May we leave a message? Yes Tammie Henry [facility] Work Phone: 08-05-2024 Instructions Pola Garcia [...] your care plan. documented in this encounter [facility] 08-05-2024 Note [facility] 08-05-2024 History of Present illness Narrative Images from the original note were not included. [facility] Initial Cognitive Evaluation Tere Barone is a 74 year old year old male who comes for Comprehensive Geriatric Assessment. Pt accompanied by: Living partner (ex-) and [id number] Caregivers involved in care: Ex- HPI: Pt [...] your spouse a ? No Alzheimer's Questionnaire ([facility] 2010) THE CAREGIVER REPORTS THAT THE PATIENT: [...] or friends - Has difficulty recognizing familiar [facility] QUE[facility]ION[facility]IRE - FUNCTIONAL ABILITY - DIFFICULTY HANDLING MONEY: Living partner handles finances. [facility] [place] QUESTIONNAIRE - [...] secure location? N/A Social History: Primary language: Mexican Marital Status: Living situation: but he is living with his ex-. Socially engaged? (participates in activities such as clubs, tenriism, community center, sports, games, visiting friends/relatives, etc?): NO. Pt's living partner states that he will only talk to his sister on the phone. Caregiver Randolph and Stress Are your feeling overwhelmed? YES. [...] his medications for him. Handle Finances: D. ([place] scale): 2 PMHx: PAST MEDICAL HISTORY Diagnosis [...] , Taking? Yes, Authorizing Provider Migdalia Knapp APRN.[employer] Medication semaglutide (RYBELSUS) 14 mg tablet, Sig Take 1 tablet (14 mg) by mouth daily before breakfast., Start Date 07/15/24, End Date , Taking? Yes, Authorizing Provider Migdalia Knapp APRN.[employer] Medication losartan (COZAAR) 25 mg tablet, Sig Take 1 tablet by mouth once daily., Start Date 06/09/24, End Date , Taking? Yes, Authorizing Provider Samm Kc, DO Medication peg 3350-Electrolytes (GOLYTELY) 236-22.74-6.74 -5.86 gram [...] , Taking? Yes, Authorizing Provider Sammi Velarde APRN.[employer] Medication Fluorouracil (EFUDEX) 5 % cream, Sig [...] 12/31/24, Taking? Yes, Authorizing Provider Toni Duran APRN.[employer] Medication metoprolol succinate ER (TOPROL XL) 25 mg 24 hr tablet, Sig Take 1 tablet by mouth once daily., Start Date 11/14/23, End Date 11/08/24, Taking? Yes, Authorizing Provider Samm Kc, Medication aspirin 81 mg chewable tablet, Sig [...] , Taking? Yes, Authorizing Provider Taty Leslie APRN.[employer] Other OTC med/supplements: None Medication Review: - ANY HIGH RISK MEDICATIONS (STOPP CRITERIA): NO ALLERGIES No Known Allergies Review of Systems Difficulty chew/swallow: No Pain: No Tremor: No Incontinence - During the last 3 months did you leak urine? NO Constipation/Change in bowel habits: NO Vision No vision problems reported Follows with animal ecologist:YES Hearing - Hearing aid : Denies any [...] Words, up to 2 trials: Face, Velvet, Cheondoism, Muriel, Red (no points) 0 Attention forwards: [...] 1 error) 1 Serial subtraction by 7: [id number] (3 points for correct 4 or 5; [...] 2 Delayed recall: recall words: face, velvet, tenriism, muriel, red (0-5) 0 Orientation: date(1), month(1), [...] potential need for future memory care or senior care placement. # Type 2 diabetes mellitus without [...] support options such as nicotine patches. # halfway (current) use of aspirin (Z79.82) - Continue [...] Time: 4:39 PM documented in this encounter [facility] 08-01-2024 Miscellaneous Notes Prescription Refill Information [...] 2024 11:24 AM documented in this encounter [facility] 08-01-2024 Telephone encounter Note Prescription Refill [...] Aburto MA August 01, 2024 11:24 AM [facility] 07-15-2024 Telephone encounter Note Patient scheduled for 11/26/24 [facility] 07-15-2024 Miscellaneous Notes Patient scheduled for [...] 2024 9:14 AM documented in this encounter [facility] 07-14-2024 Telephone encounter Note Prescription Refill [...] Rodarte MA July 14, 2024 9:14 AM [facility] 07-08-2024 Note [facility] 07-08-2024 History of Present illness Narrative CC: [...] for DM management documented in this encounter [facility] 06-09-2024 Telephone encounter Note The following approved medication requests have been transmitted electronically. Requested Prescriptions Pending Prescriptions Disp Refills losartan (COZAAR) 25 mg tablet [Pharmacy Med Name: losartan 25 mg tablet] 90 tablet 3 Sig: Take 1 tablet by mouth once daily. Samm Kc DO [facility] 06-09-2024 Miscellaneous Notes The following approved [...] Lily Eason MA documented in this encounter [facility] 06-09-2024 Telephone encounter Note Patient electronically [...] with PCP Please review. Lily Eason MA [facility] 06-03-2024 Telephone encounter Note Spoke with patient to give results of colonoscopy. Pt verbalized understanding and appreciated call Rakel Dao RN [facility] 06-03-2024 Miscellaneous Notes Spoke with patient [...] in 3 years. documented in this encounter [facility] 06-02-2024 Telephone encounter Note ----- Message from Yusra Beltran DO sent at 05/30/2024 4:27 PM EST ----- Please let him know polyp(s) removed during colonoscopy were adenoma(s) and follow-up colonoscopy is recommended in 3 years. [facility] 06-02-2024 Telephone encounter Note ----- Message from Yusra Beltran DO sent at 05/30/2024 4:27 PM EST ----- Please let him know polyp(s) removed during colonoscopy were adenoma(s) and follow-up colonoscopy is recommended in 3 years. [facility] 05-30-2024 Telephone encounter Note Advised patient's of consult order being placed and warm transferred to a equipment scheduler to make appointment [facility] 05-30-2024 Miscellaneous Notes Advised patient's of consult order being placed and warm transferred to a equipment scheduler to make appointment Consult placed. Please assist with scheduling Justin is calling Samm Kc DO today with concern regarding Referral Request Patient's spouse is calling in asking for a referral to Geriatrics/Dementia; to also help with his depression. If you can please help with this. Patient has been identified by name and birthdate. Duration of symptoms: N/A Person calling: spouse: Bg [phone] Was an appointment scheduled: No Closing statement: Results or non-symptom based questions: Thank you for calling [facility], your call will be returned within the next business day. Argentina Simpson documented in this encounter [facility] 05-30-2024 Telephone encounter Note Consult placed. Please assist with scheduling [facility] 05-30-2024 Telephone encounter Note Justin is calling Samm Kc DO today with concern regarding Referral Request Patient's spouse is calling in asking for a referral to Geriatrics/Dementia; to also help with his depression. If you can please help with this. Patient has been identified by name and birthdate. Duration of symptoms: N/A Person calling: spouse: Bg [phone] Was an appointment scheduled: No Closing statement: Results or non-symptom based questions: Thank you for calling [facility], your call will be returned within the next business day. Argentina Simpson [facility] 05-29-2024 History and physical note REASON [...] Orders COLONOSCOPY SCREENING PLAN Proceed with colonoscopy. [facility] Work Phone: 05-29-2024 History and physical note [...] Proceed with colonoscopy. documented in this encounter [facility] 05-12-2024 Note [facility] 05-12-2024 History of Present illness Narrative POPULATION [...] 2024 12:14 PM documented in this encounter [facility] 05-07-2024 Instructions Bruno Villatoro APRN.RHONDA - [...] of taking antibiotics. documented in this encounter [facility] 05-07-2024 Note [facility] 05-07-2024 History of Present illness Narrative Images [...] Making Level: 3 - Low Bruno Villatoro APRN.INSTALLER MOLDING AND TRIM documented in this encounter [facility] 05-07-2024 Telephone encounter Note Attempted to call patient, no answer. Left voicemail to call office back in regards to message below. Letter mailed. Please update patients phone number as its his ex-, the only number listed. [facility] 05-07-2024 Miscellaneous Notes Attempted to call [...] Samm Kc DO documented in this encounter [facility] 05-05-2024 Telephone encounter Note Ideally 2 day (2 kits or 1.5-2 gallons) prep over 1.5-2 days or as much of this as possible to have clear liquid output from below. Ordered. [facility] 05-05-2024 Miscellaneous Notes Ideally 2 day (2 kits or 1.5-2 gallons) prep over 1.5-2 days or as much of this as possible to have clear liquid output from below. Ordered. I will defer the prep question below to Dr. Bender as she is the one who recommended it. Dr. Bender, please advise. Thank you, Fannie Sandoval RN One golytely kit over 2 days, or [...] orders. Thank you documented in this encounter [facility] 05-05-2024 Telephone encounter Note I will defer the prep question below to Dr. Bender as she is the one who recommended it. Dr. Bender, please advise. Thank you, Fannie Sandoval RN [facility] 05-05-2024 Telephone encounter Note One golytely kit over 2 days, or 2 kits? [facility] 05-05-2024 Telephone encounter Note Per colonoscopy [...] instructions above. Thank you, Fannie Sandoval RN [facility] 05-05-2024 Telephone encounter Note Pts Ex spouse called to reschedule COLO for pt. She stated he never had the COLO on 05/02. In pts past tab it says pt did have COLO. Please advise and place new orders. Thank you [facility] 05-02-2024 Telephone encounter Note Attempted to call patient, no answer. Left voicemail to call office back in regards to message below. [facility] 05-02-2024 Nurse Note POST OP LEARNING RESPONSE [...] Yuliya Bassett RN In Department: AMBULATORY SURGERY [facility] 05-02-2024 Nurse Note POST OP LEARNING RESPONSE [...] Department: AMBULATORY SURGERY documented in this encounter [facility] 05-02-2024 Nurse Note PRE OP LEARNING ASSESSMENT PROCEDURE/SURGERY: GI PROCEDURES: Colonoscopy READINESS TO LEARN COGNITIVE ABILITY: Alert and oriented MOTIVATION TO LEARN: Eager Interested FAMILY SUPPORT: High - Very involved in pt care PATIENT LEARNS BEST BY: Individual Instruction Verbal Instruction FACTORS AFFECTING LEARNING: None PHYSICAL LIMITATIONS AFFECTING LEARNING: None Electronically Signed By: Taty Macias RN In Department: AMBULATORY SURGERY [facility] 04-30-2024 Telephone encounter Note Attempted to call patient, no answer. Left voicemail to call office back in regards to message below. [facility] 04-29-2024 Telephone encounter Note ----- Message from Samm Kc DO sent at 04/28/2024 7:14 PM EST ----- Please call the patient and let them know their hemoglobin is slightly low but otherwise the labs are unremarkable. Diabetes is under control . A1c 5.7% . The plan is to monitor his labs regularly. Thank you. Samm Kc DO [facility] 04-25-2024 Telephone encounter Note Below noted. No further nursing action required at this time [facility] 04-25-2024 Miscellaneous Notes Below noted. No [...] Thank you ----- Message from Sunshine Duckworth APRN.INSTALLER MOLDING AND TRIM sent at 04/24/2024 3:04 PM EST ----- Reviewed echocardiogram results essentially unchanged from prior 2 years ago pumping function of the heart to 41% was previously 44% essentially unchanged no significant valvular disease dilated aorta unchanged at 4.5 cm Sunshine Duckworth APRN.INSTALLER MOLDING AND TRIM documented in this encounter [facility] 04-24-2024 Telephone encounter Note Patient notified and verbalized with understanding. [facility] 04-24-2024 Telephone encounter Note LVM for patient to return call. Patient no active on My chart. PSS or MA/RN- Please relay message to patient when they call back. Or, if preferred, please ask Patient when a good time to reach them would be and clinical can relay the message. Thank you [facility] 04-24-2024 Telephone encounter Note ----- Message from Sunshine Duckworth APRN.INSTALLER MOLDING AND TRIM sent at 04/24/2024 3:04 PM EST ----- Reviewed echocardiogram results essentially unchanged from prior 2 years ago pumping function of the heart to 41% was previously 44% essentially unchanged no significant valvular disease dilated aorta unchanged at 4.5 cm Sunshine Duckworth APRN.INSTALLER MOLDING AND TRIM [facility] 04-24-2024 Telephone encounter Note l Ieft a message to remind patient of appointment date and to let them know the nurse will call the day before to confirm appointment time also ask him to not to take the Rybesus the day of procedure. [facility] 04-24-2024 Miscellaneous Notes l Ieft a message to remind patient of appointment date and to let them know the nurse will call the day before to confirm appointment time also ask him to not to take the Rybesus the day of procedure. documented in this encounter [facility] 04-24-2024 Note [facility] 04-24-2024 History of Present illness Narrative Primary [...] sure if they want to pursue Assisted Living/[facility] options for pt. Pt's spouse said she does not want to talk today. PCSW offered to send pt's spouse resources for her to look over. Pt's spouse was open to PCSW sending her mail with resources including [facility] Older Ad[facility] (assistance with long-term care options, meals, transportation), list of home health aide agencies and explained there would be a cost for services and is not covered by Medicare unless pt is getting skilled therapy services, and resources for finding long-term care options in [facility]. No other PCSW needs at this time. Pt's spouse said she appreciated the phone call and will call back if she has questions. Interventions: Advocacy Assessment Education Empowering/Coaching Goal Setting CK Robert April 24, 2024 11:09 AM documented in this encounter [facility] 04-23-2024 History of Present illness Narrative [...] F03.918 Justin's would like patient evaluated at [facility] for a second opinion. She is concerned the patient has Alzheimer's dementia as his cognitive decline is apparent. BILLBOARD POSTER HELPER was also contacted to discuss placement options if they decide to move forward with that. - CONSULT TO NEUROLOGY - PRIMARY CARE SOCIAL WORK CONSULT 5. Screening for prostate cancer - ICD9: V76.44, ICD10: Z12.5 - PSA/PROSTATE SPECIFIC ANTIGEN SCREENING 6. Decreased activities of daily living (ADL) - ICD9: V49.89, ICD10: Z78.9 BILLBOARD POSTER HELPER consult placed for decreased ADLs to discuss SNF/assisted living options for the patient. - PRIMARY CARE SOCIAL WORK CONSULT Samm Kc DO April 23, 2024 1:38 PM Follow up in 6 months documented in this encounter [facility] 03-19-2024 History of Present illness Narrative [...] out 6 months documented in this encounter [facility] 03-18-2024 Telephone encounter Note The following approved medication requests have been transmitted electronically. Requested Prescriptions Signed Prescriptions Disp Refills memantine (NAMENDA) 10 mg tablet 180 tablet 1 Sig: Take 1 tablet by mouth two times a day. Patient should start on November 23, 2023. Authorizing Provider: SAMMI VELARDE Ordering User: KAMRAN ULLOA PA-C [facility] Work Phone: 03-18-2024 Miscellaneous Notes The following approved medication requests have been transmitted electronically. Requested Prescriptions Signed Prescriptions Disp Refills memantine (NAMENDA) 10 mg tablet 180 tablet 1 Sig: Take 1 tablet by mouth two times a day. Patient should start on November 23, 2023. Authorizing Provider: SAMMI VELARDE Ordering User: KAMRAN ULLOA PA-C documented in this encounter [facility] 03-17-2024 Instructions June Mckeon LPN - 03/17/2024 1:36 PM EDT [facility] [phone] Efudex Information Sheet Apply the cream to [...] of the cream. documented in this encounter [facility] 03-17-2024 History of Present illness Narrative [...] Past Histories independently gathered by the clinical customer support manager and the remaining scribed note accurately describes my personal service to the patient. Jatin Garrett MD documented in this encounter [facility] 03-06-2024 Telephone encounter Note Patient spouse [...] na 10. TRAVEL: Pt denies Protocols used: [id number] T [facility] 03-06-2024 Miscellaneous Notes Patient spouse calling [...] na 10. TRAVEL: Pt denies Protocols used: [id number] documented in this encounter [facility] 02-08-2024 Instructions Angeles Plata LISW - [...] Neuropsychological testing (typically 2 hours). A neuropsychology nanotechnology engineering technician administers tests covering concentration, memory and a range of verbal and visual abilities. The testing is usually completed in one visit. Appointments are offered at the [facility] or at the [facility]. To schedule at either location, call [phone]. Advance Directives We understand that you have advance directives in place (living will & healthcare power of corporate associate attorney), which is excellent. Documents for healthcare can be uploaded to your medical record in the following ways: -Bring the forms to any [facility] medical appointment. A copy will be made and scanned into your medical record. -Scan and send to [email or web address] -Fax to [phone] -Mail to: [facility] Health Information Management, [employer] Advance Directives Processing [address], [place] [address] Durable Power of Family Manager for Finance We encourage you to complete the forms for durable power of corporate associate attorney regarding finance. Durable Power of Family Manager for Finance allows a person to name an individual that they would want to make financial decisions on their behalf, in the event that they are unable to do so. These decisions may include: -Payment of a loved one s bills -Payment of their medical expenses -Investments made on their behalf -Collection of their residential benefits -Application for insurance benefits You can visit [email or web address] for more information. These forms require a notary upon completion. Education & Support When an individual experiences memory changes, no matter how mild or severe, we encourage individuals and families to educate themselves, learn communication tips, and ways to adjust expectations over time. There are many resources available online. The Alzheimer's Association (web site: alz.org/jensen) An organization that provides education and support to individuals/caregivers affected by memory loss, Alzheimer's disease, and all forms of dementia. Available 24 hours a day, 7 days per week. Contact: Local: ; Toll free: [phone] Family Caregiver [place] (web site: Caregiver.org) NOLAN Palacio-- a secure online solution for quality information, support, and resources for family caregivers. Contact: Toll-free number: [phone] Alzheimers.gov Find Alzheimer disease and related dementias information, resources, research and more. Follow Up We would like to see you back in 4 months. If you have questions or concerns following your visit please contact us at [phone]. Sincerely, [facility] Team Hardik Velarde APRN.DENTAL INSURANCE BILLER Geriatric Clinical Nurse Specialist Megan Barron RN Sales Mgr YOLANDA Bautista Ceramic Painter CK Gerard Licensed Independent Glass Designer documented in this encounter [facility] 02-08-2024 History of Present illness Narrative Images from the original note were not included. Tere Barone [id number] [place] [id number] February 08, 2024 Time: 11:15 AM Follow up visit [facility] Accompanied by: spouse Bg Barone [...] post stroke, Imaging as not requested form [facility]. Ms Barone is concerned why he doesn't [...] with a disc of imaging done in [facility] or ask them to upload in our [...] speaks of taking him out of a senior care 2.5 years ago, brought him home. -Recently [...] or AH. -She requested the images from [facility] be sent to [facility] from December 2022 [...] Additional paranasal sinus disease as above. Caregiver Stress/Randolph: Tearful today, speaks of child passing away. [...] which included preparing to see the patient, [id number] patient care, completing clinical documentation, obtaining and/or reviewing separately obtained history, counseling and educating the patient/family/caregiver, ordering medications, tests, or procedures, communicating with other HCPs (not separately reported) and care coordination (not separately reported). Sammi Velarde APRN.RHONDA documented in this encounter [facility] 01-11-2024 Telephone encounter Note Left VM for pt's spouse with call back number to discuss concerns. Megan Barron RN [facility] 01-11-2024 Miscellaneous Notes Left VM for pt's spouse with call back number to discuss concerns. Megan Barron RN Pt and spouse, Bg accidentally came to [facility] today. Pt is scheduled for 02/07 @ 11:00/11:15A. After discovering the appt month error, Bg stated she would like to speak with provider re: pt questions and concerns. (Two Way Radio Technician stated to spouse she will forward request to speak with nurse onto Sales Mgr for f/u.) Best contact: . Thank you, Karen documented in this encounter [facility] 01-11-2024 Instructions Son Bañuelos LPN - [...] we will contact you accordingly, either via [employer] or telephone call. If you have any questions or concerns, please send your provider a [employer] message or contact the [place] office at [phone]. documented in this encounter [facility] 01-11-2024 History of Present illness Narrative [...] Past Histories independently gathered by the clinical customer support manager and the remaining scribed note [...] 4 - Moderate documented in this encounter [facility] 01-09-2024 Instructions Sedrick Roberts MD - 01/09/2024 3:11 PM EDT - Continue metformin 500 mg 2 tabs twice a day - Continue Rybelsus 14 mg once a day - please check your blood sugar few times a week on different times - Follow up in 3 months with Migdalia - See the dietitian. Call [phone] to schedule documented in this encounter [facility] 01-09-2024 History of Present illness Narrative [...] oxygen requirements. He was discharge to a senior care on insulin and metfomrin. He developed thrombocytopenia [...] 1988: ARTHRD ANT INTERBODY MIN DSC LUMBAR 2009: NEUROPLASTY &/TRANSPOS MEDIAN NRV CARPAL TUNNE Comment: [...] with Migdalia and in 6 months with me Some of the above has been copied from prior documentation on 01/31/2023 but leo elements reviewed, confirmed, and/or updated by me (Sedrick Roberts MD) on 01/09/2024 Medical Decision Making: Problems: Low: Stable chronic illness Data: Unique test result(s) reviewed: 3+ Risk: Moderate: Moderate risk from testing/treatment Medical Decision Making Level: 4 - Moderate Sedrick Roberts MD documented in this encounter [facility] 01-09-2024 History of Present illness Narrative [...] 2024 10:45 AM documented in this encounter [facility] 01-08-2024 Telephone encounter Note Pt and spouse, Bg accidentally came to [facility] today. Pt is scheduled for 02/07 @ 11:00/11:15A. After discovering the appt month error, Bg stated she would like to speak with provider re: pt questions and concerns. (Two Way Radio Technician stated to spouse she will forward request to speak with nurse onto Sales Mgr for f/u.) Best contact: . Thank you, Karen [facility] 01-04-2024 History of Present illness Narrative [...] aggressive behavior. DMT2: Patient previously followed with gail, missed last appointment but rescheduled to 01/08 [...] structured exercise, planning to start walking the [employer] track Last 3 Encounter BP Readings: Date: [...] Exam due on 06/16/2022 Covid-19 Vaccine(3 - 2022- season) due on 07/28/2023 HbA1C due on [...] Patient agreeable to treatment plan. Toni Duran APRN.RHONDA documented in this encounter [facility] 12-31-2023 Telephone encounter Note Patient is [...] found Please advise. Thank you. Marie Shea. [facility] 12-31-2023 Miscellaneous Notes Patient is out [...] you. Marie Shea. 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 Also advised to creat [employer] account to share photos. [employer] activation link texted. Patient scheduled 01/08 for suture removal and wound check. Advised patient to make sure wound photographed during this visit and results transmitted to surgical team. 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 Also advised to creat [employer] account to share photos. [employer] activation link texted. Patient scheduled 01/08 for suture removal and wound check. Advised patient to make sure wound photographed during this visit and results transmitted to surgical team. documented in this encounter [facility] 12-29-2023 Telephone encounter Note Ex- calling regarding post op concerns: Conferenced to [facility] bagging machine operator, Anne, to speak with Dermatology provider it application development manager for Dr. Su Mccrary and was advised to go to ER, if needed. stated they removed dressing, is unsure whether it was too tight, and skin in small area looks purple. [facility] 12-29-2023 Miscellaneous Notes Ex- calling regarding post op concerns: Conferenced to [facility] bagging machine operatorAnne, to speak with Dermatology provider it application development manager for Dr. Su Mccrary and was advised to go to ER, if needed. stated they removed dressing, is unsure whether it was too tight, and skin in small area looks purple. documented in this encounter [facility] 12-27-2023 Telephone encounter Note Advised patient's spouse of message below [facility] 12-27-2023 Miscellaneous Notes Advised patient's spouse [...] dementia Please advise documented in this encounter [facility] 12-27-2023 Telephone encounter Note He can try it. Should take a vitamin b12 tablet once daily with 1000mcg of b12 in it. [facility] 12-27-2023 Telephone encounter Note Patient's spouse asking if he can try a vegan diet and if there are any supplements he should be taking while on it She was researching and found info that a vegan diet can be good for dementia Please advise [facility] 12-26-2023 Telephone encounter Note RN called the spouse back, no answer, left a message that the provider feels that it would be best for the patient to come in to be seen by Sammi Velarde to assess the patient's needs. Phone number provided. Conchita Jenkins RN [facility] 12-26-2023 Miscellaneous Notes RN called the [...] Mohs surgery tomorrow. documented in this encounter [facility] 12-26-2023 Instructions Ramin Bell LPN - [...] to manage their pain after surgery with Axpj-nec-Mfvexkp (OTC) medications such as Tylenol (acetaminophen) and [...] How will I alternate my regular strength brar-mut-zamabri pain medication? You will take a dose [...] We recommend that you follow this schedule [id number] for at least 3 days after surgery, [...] 72 hours following surgery Return to referring bulk delivery driver for skin checks every 6 months Wear sunscreen PHONE NUMBERS: Martine contact number: [phone] and ask to be transferred to Dermatology (Sunday-Sunday, 8am-5pm) For emergencies only: On-call number: [phone] and ask for the it application development manager dermatology surgery fellow documented in this encounter [facility] 12-25-2023 Telephone encounter Note Received urgent after hours page from patient. Patient called back. Patient asking if they can eat and drink before their scheduled Mohs procedure tomorrow (12/26/23). Advised patient they may eat and drink as procedure performed under local anaesthetic. Patient understood and will plan for breakfast before scheduled 8AM procedure. [facility] Work Phone: 12-25-2023 Miscellaneous Notes Received urgent after hours page from patient. Patient called back. Patient asking if they can eat and drink before their scheduled Mohs procedure tomorrow (12/26/23). Advised patient they may eat and drink as procedure performed under local anaesthetic. Patient understood and will plan for breakfast before scheduled 8AM procedure. documented in this encounter [facility] 12-25-2023 Telephone encounter Note Patient calling regarding pre op prep questions. Conferenced to [facility] bagging machine operator, Susan, to speak with provider it application development manager for Dr. Su Mccrary. Brittnee Thompson LPN [facility] 12-25-2023 Miscellaneous Notes Patient calling regarding pre op prep questions. Conferenced to [facility] bagging machine operator, Susan, to speak with provider it application development manager for Dr. Su Mccrary. Brittnee Thompson LPN documented in this encounter [facility] 12-25-2023 History of Present illness Narrative MOHS MICROGRAPHIC OPERATIVE REPORT SERVICE DATE: 12/26/2023 SERVICE TIME: 08 [facility] [address] [address], [place] [address] REFERRING PROVIDER: Анна Perez [id number] [address] [facility] [id number] PROCEDURE START TIME: 8:25 AM PROCEDURE END [...] Available at Bedside: Inside pathology report # [id number] Pre-op Size: Greater than 2 cm, (3.7 [...] for non-ocular SCC of head and neck. [facility] Risk Factors: tumor diameter greater than or equal to 2 cm Final stage T2a - 1 high-risk factor. Based on the [facility] guidelines. LOCAL ANESTHETIC: 12 cc 1% Lidocaine [...] WITH VERBAL UNDERSTANDING: Yes PATIENT DISCHARGED TO DIRECTOR OF CONTRACTS/NAME: self and spouse Bg. FOLLOW UP: Return [...] assistance. I have seen and examined Tere Barone. I have discussed the case and [...] operative note independently gathered by the clinical customer support manager and the remaining scribed note accurately describes my personal service to the patient. I/primary surgeon/proceduralist reviewed the specimen(s) and worked as the pathologist. Sammi Jessica MD December 26, 2023 documented in this encounter [facility] 12-25-2023 Telephone encounter Note Pt's Bg [...] the patient will have Mohs surgery tomorrow. [facility] 12-17-2023 Instructions Camille Benitez APRN.INSTALLER MOLDING [employer] TRIM - 12/17/2023 4:48 PM EDT Images from [...] your legs Camille Benitez APRN.RHONDA Tere Barone, [id number] December 17, 2023 documented in this encounter [facility] 12-17-2023 History of Present illness Narrative Images from the original note were not included. [facility] PATIENT NAME: Tere Barone DATE OF : 1950 TODAYS' DATE: 12/17/2023 Subjective: Mr. Barone is a 73 year old male Patient presents with: Pain (Shoulder Pain) History of Present Illness: The history is provided by the patient. No block hand was used. Pain (Shoulder Pain) This is [...] result) Impression: IMPRESSION: No acute osseous abnormality Mine Motor Operator: MICHELE Transcribe Date/Time: Dec 17 2023 4:33P [...] 12/17/23 3:59 PM documented in this encounter [facility] 12-17-2023 Telephone encounter Note Yesterday patient [...] weakness 7. : NA Protocols used: Shoulder [id number]-MXFEC-UK [facility] 12-17-2023 Miscellaneous Notes Yesterday patient started [...] weakness 7. : NA Protocols used: Shoulder Smau-[id number]-LY documented in this encounter [facility] 12-05-2023 Telephone encounter Note Reschedule 03/18/24 appt. With anna [facility] 12-05-2023 Miscellaneous Notes Reschedule 03/18/24 appt. With anna documented in this encounter [facility] 12-03-2023 History of Present illness Narrative [...] Objective: Patient presents to clinic ambulating in [facility] Constitutional: Pt is a well [...] callus debrided with 15 blade and dremmel. Tu Frederick DPM AMB ROOMING INTAKE FLOWSHEET DATA Patient presents with: Left Foot - New, Diabetic Foot Care Right Foot - New, Diabetic Foot Care Gabbi Alicia LPN documented in this encounter [facility] 11-28-2023 Telephone encounter Note Addressed in original telephone encounter 11/23/23. Анна Perez PA-C November 28, 2023 6:30 PM [facility] Work Phone: 11-28-2023 Miscellaneous Notes Addressed in original telephone encounter 11/23/23. Анна Perez PA-C November 28, 2023 6:30 PM Name of Caller: kavita Relationship to patient: patient's spouse Last visit in this department: 10/31/2023 Reason for Call: Other : stated she was returning perez's call to discuss cream. Callback number: [phone] documented in this encounter [facility] 11-28-2023 Telephone encounter Note Name of Caller: kavita Relationship to patient: patient's spouse Last visit in this department: 10/31/2023 Reason for Call: Other : stated she was returning perez's call to discuss cream. Callback number: [phone] [facility] 11-28-2023 Telephone encounter Note Addressed in original telephone encounter 11/23/23. Анна Perez PA-C November 28, 2023 6:00 PM [facility] Work Phone: 11-28-2023 Miscellaneous Notes Addressed [...] surgery Please call and discuss Callback number: [phone] documented in this encounter [facility] 11-28-2023 Telephone encounter Note Name of Caller: bg Relationship to patient: patient's spouse Last visit in this department: 10/31/2023 Reason for Call: Other : Pts would like a call back to discuss if radiation cream would be better then having mohs surgery Please call and discuss Callback number: [phone] [facility] 11-23-2023 Telephone encounter Note I spoke to patients - bg and let her know that Анна was on vacation and would not be able to return her call until end of next week. Cyndie Case RN [facility] 11-23-2023 Miscellaneous Notes I spoke to patients - bg and [...] Other : Patients Bg called asking what нАна Perez thinks of [facility]. She saw this on TV, some type xray radiation she thinks. She is wondering if that would be better than surgery for patient or should he still get the surgery? He is scheduled for surgery on 12/26/2023 at [place]. Please call. Thanks! Callback number: [phone] Ivet Cano documented in this encounter [facility] 11-23-2023 Telephone encounter Note Patients called again asking if Анна Perez can call her regarding message below. Thanks! [facility] 11-23-2023 Telephone encounter Note Name of [...] is scheduled for surgery on 12/26/2023 at [place]. Please call. Thanks! Callback number: [phone] Ivet Cano [facility] 11-14-2023 Telephone encounter Note Patient calling, advised RX was sent [facility] 11-14-2023 Miscellaneous Notes Patient calling, advised [...] medication. Please call with provider response at [phone] Pharmacy is [facility] Patient's called to check on status of refill. She was advise again that there should be a valid rx at the pharmacy. She said the pharmacy keeps telling them there is not medication left on his current rx. Would like our office to call the pharmacy to see what the problem is. Please call her back at [phone] when resolved. Prescription Refill Information The patient has been identified by name and date of : Yes Caregiver verified no other encounters exist for this prescription request: Yes Caregiver confirmed with patient/requestor that no other refills are due, in the near future, with this provider at this time: Yes The last office visit in the department: 1/2/24 Does the patient have a future office [...] 2023 11:40 AM documented in this encounter [facility] 11-14-2023 Telephone encounter Note Patient is [...] medication. Please call with provider response at [phone] Pharmacy is [facility] 11-14-2023 Telephone encounter Note Patient's called to check on status of refill. She was advise again that there should be a valid rx at the pharmacy. She said the pharmacy keeps telling them there is not medication left on his current rx. Would like our office to call the pharmacy to see what the problem is. Please call her back at [phone] when resolved. [facility] 11-12-2023 Telephone encounter Note RN called [facility] imaging library and spoke to Paulette, she stated that she will send the MRI results through [employer]. Will notify the patient and provider. Conchita Jenkins RN [facility] 11-12-2023 Miscellaneous Notes RN called [facility] imaging library and spoke to Paulette, she stated that she will send the MRI results through [employer]. Will notify the patient and provider. Conchita Jenkins RN Spouse, Bg ELDER on [facility] Nurse Line on 11/11 @11:24A. Bg states Dr. Lee requested MRI to be completed. Pt completed at [facility]. They said they sent it electronically [...] ok. Please advise. documented in this encounter [facility] 11-12-2023 Telephone encounter Note Spouse, Bg ELDER on [facility] Nurse Line on 11/11 @11:24A. Bg states Dr. Lee requested MRI to be completed. Pt completed at [facility]. They said they sent it electronically on Sunday. Dr. Lee may have to download to get it. Please call back at . Thank you, Karen [facility] 11-12-2023 Telephone encounter Note SPECIALTY CARE COORDINATION FOLLOW-UP NOTE Returned call. Informed that the recommendation per Dr. Corado is repeat colonoscopy in January. They have the option of going later if they choose. She is requesting prep be mailed to home address on file. Margot Navarro RN November 12, 2023 [facility] 11-12-2023 Miscellaneous Notes SPECIALTY CARE COORDINATION [...] Corado initially wanted documented in this encounter [facility] 11-12-2023 Telephone encounter Note [phone] Kavita Ex-Spouse calling back wants to know if March is ok for the scope vs. January like Dr. Corado initially wanted [facility] 11-12-2023 Telephone encounter Note Prescription Refill [...] Hetal Simpson November 12, 2023 11:40 AM [facility] 11-12-2023 Telephone encounter Note RN called spouse back, informed her that we do not have the records showing up yet in their chart but sometimes it may take 24-48 hours. Advised the spouse to call [facility] to make sure that they sent them to us electronically. We will let her know once we get them. Conchita Jenkins RN [facility] 11-12-2023 Miscellaneous Notes RN called spouse back, informed her that we do not have the records showing up yet in their chart but sometimes it may take 24-48 hours. Advised the spouse to call [facility] to make sure that they sent them to us electronically. We will let her know once we get them. Conchita Jenkins RN Spouse, Bg ENRIQUEGe on [facility] Nurse Line on 11/08 @ 3:34P. Pt name and verified 1950. Spouse states pt was here the other day. Bg checked with [facility] and records will be sent electronically. Please let me know if you got it. Best contact is: . Thank you, Karen documented in this encounter [facility] 11-09-2023 Telephone encounter Note Spouse, Bg ELDER on [facility] Nurse Line on 11/08 @ 3:34P. Pt name and verified 1950. Spouse states pt was here the other day. Bg checked with [facility] and records will be sent electronically. Please let me know if you got it. Best contact is: . Thank you, Karen [facility] 11-09-2023 Telephone encounter Note SPECIALTY CARE COORDINATION FOLLOW-UP NOTE Returned call. Left detailed vm that she may need to choose a different location to have colonoscopy as availability may be different in different locations ([facility], [facility]). Office number provided to discuss prep Margot Navarro RN November 09, 2023 [facility] 11-09-2023 Miscellaneous Notes SPECIALTY CARE COORDINATION FOLLOW-UP NOTE Returned call. Left detailed vm that she may need to choose a different location to have colonoscopy as availability may be different in different locations ([facility], [facility]). Office number provided to discuss prep Margot Navarro RN November 09, 2023 Kavita Was not able to schedule another colonoscopy until March. [facility] Dr. Corado told her she wanted the patient to follow up again in January for another scope. Ex-spouse also wanted to go over prep again does not remember what they did before and wanted clarification. documented in this encounter [facility] 11-09-2023 Telephone encounter Note [phone] Kavita Was not able to schedule another colonoscopy until March. [facility] Dr. Corado told her she wanted the patient to follow up again in January for another scope. Ex-spouse also wanted to go over prep again does not remember what they did before and wanted clarification. [facility] 11-09-2023 Telephone encounter Note Msg relayed [facility] 11-09-2023 Telephone encounter Note Okay to take [facility] 11-09-2023 Telephone encounter Note Pt was seen by dr. Lee yesterday and pt was told to call and see if dr. Kc is ok with pt trying namenda. Script was sent for 2 weeks to see if pt tolerates well but spouse was told not to start the medication until dr. Kc says it's ok. Please advise. [facility] 11-08-2023 Instructions Taiwo Lee MD - [...] with a disc of imaging done in [facility] or ask them to upload in our system if they can. Cognitive Rehabilitation We believe that Justin may benefit from cognitive rehabilitation. This is a therapy that is designed to teach compensatory strategies and use organizational systems to improve day-to-day function. To schedule call Rehabilitation and Sports Therapy: [phone]. Below is a provider located near your home: (Not all-inclusive list) ROBERT Marcus -- [facility] We would like you to follow with a provider after you started this medication. I understand you prefer a closer office and you will make appointment with Dr Kc within the next 2-3 months documented in this encounter [facility] 11-08-2023 History of Present illness Narrative Images from the original note were not included. Tere Barone [id number] [place] [id number] November 08, 2023 Time: 11:12 AM FOLLOW-UP [...] use: No Social History reviewed by Taiwo eLe MD Cognitive Exam: 01/30/2023 11/08/2023 [facility] MOCA [...] with a disc of imaging done in [facility] or ask them to upload in our [...] which included preparing to see the patient, bipa-al-grzm patient care, performing a medically appropriate examination, completing clinical documentation, and on counseling/ eductaing the patient and the family. Taiwo Lee MD CC: 1. Samm DO Yamini, (fax) [phone] Patient-Reported No data to display PROMIS-10 No [...] data to display documented in this encounter [facility] 11-08-2023 Nurse Note Tere Barone is [...] oz) BMI 30.41 kg/m Zoe Brito MA [facility] 11-08-2023 Nurse Note Tere Barone is [...] Zoe Brito MA documented in this encounter [facility] 11-02-2023 Telephone encounter Note It was the [facility]'s triage nurse who will try to get in touch with him again. Fabi GEE, RN [facility] 11-02-2023 Miscellaneous Notes It was the [facility]'s triage nurse who will try to get in touch with him again. Fabi GEE, RN Name of Caller: Bg Barone Relationship to patient: patient's spouse Last visit in this department: 10/31/2023 Reason for Call: Please call Bg. She said patient thought a nurse was trying to schedule him for a surgery on his arm in [place] next week. She wants to be sure and get information for patient. Thanks! Callback number: [phone] Ivet Cano Patient aware of diagnosis and [...] placed to patient, aware of results below. [phone] FINAL DIAGNOSIS A. Skin, left forearm - [...] Анна Perez PA-C documented in this encounter [facility] 11-02-2023 Telephone encounter Note Name of Caller: Bg Barone Relationship to patient: patient's spouse Last visit in this department: 10/31/2023 Reason for Call: Please call Bg. She said patient thought a nurse was trying to schedule him for a surgery on his arm in [place] next week. She wants to be sure and get information for patient. Thanks! Callback number: [phone] Ivetmike Cano [facility] 11-02-2023 Telephone encounter Note Patient aware [...] Location: Pt preference Photos in Get Images [facility] 11-01-2023 Telephone encounter Note Call placed to patient, aware of results below. [phone] FINAL DIAGNOSIS A. Skin, left forearm - [...] team for scheduling procedure. Will route to [facility] schedulers for scheduling Full Body Skin Check with me. Thank you, Анна Perez PA-C [facility] 10-31-2023 Instructions Cyndie Case RN - [...] we will contact you accordingly, either via [employer] or telephone call. If you have any questions or concerns, please send your provider a [employer] message or contact the [place] office at [phone]. documented in this encounter [facility] 10-31-2023 History of Present illness Narrative [...] Past Histories independently gathered by the clinical customer support manager and the remaining scribed note accurately describes my personal service to the patient. Electronically Signed: Анна Perez PA-C on October 31, 2023 2:20 PM. Анна Perez PA-C Department of Dermatology documented in this encounter [facility] 09-28-2023 Miscellaneous Notes Pt is scheduled for all appts. Pt's , Анна, was informed. Please assist with scheduling. Orders placed please notify patient Patient's spouse calling today asking for 3 referrals: Glass Presser (patient does not like his current doctor) Neurologist specializing in dementia. Also asking for a dermatology referral. Please return call to Bg [phone] documented in this encounter [facility] 09-28-2023 Miscellaneous Notes Called and informed that the order was placed for the colonoscopy and he would just need to call and schedule. [phone] calling to get new order for a colonoscopy. Was told to repeat in 6 months from his last one. documented in this encounter [facility] 09-10-2023 Miscellaneous Notes Advised patient of [...] in 6 months. documented in this encounter [facility] 09-05-2023 Miscellaneous Notes Late entry. 2 attempts made to call the patiens about repeat colonoscopy and pathology result without response. Results communicated with PCP. documented in this encounter [facility] 08-23-2023 History of Present illness Narrative POPULATION HEALTH NAVIGATION OUTREACH Action/SANDEEP [place] caregtk Patient due for the following: Annual medicare wellness exam Diabetic Eye Exam Due Reason for Outreach Care Gap/HCC or Scheduling Wellness Visits Care Gaps due: Medicare Annual Wellness Visit Diabetic Eye Exam Patient Contacted: Unable or unnecessary to reach patient: Left message HCC related Navigation Signature: Soni Oneil Population Health Navigravi, PELON August 23, 2023 3:15 PM documented in this encounter [facility] 08-17-2023 Miscellaneous Notes Msg relayed with [...] spouse: Bg Call patient at: at home [phone] (home) [phone] (cell) Was an appointment scheduled: No Closing statement: Results or non-symptom based questions: Thank you for calling [facility], your call will be returned within the next business day. Argentina Simpson documented in this encounter [facility] 08-09-2023 History and physical note HISTORY [...] DATE: August 09, 2023 TIME: 9:28 AM [facility] 08-09-2023 History and physical note HISTORY [...] TIME: 9:28 AM documented in this encounter [facility] 08-01-2023 Miscellaneous Notes Advised Bg of message below; verbalizes understanding Stop 1 week prior to scope and restart after procedure Patient's asking if patient should stop his aspirin prior to his colonoscopy on ? Please call Bg back documented in this encounter [facility] 08-01-2023 Miscellaneous Notes Spoke with Tere Barone on August 01, 2023. Informed of results / instructions as stated above. Roma Edmond Ma Patient's has talked to MY, PELON, and DHEERAJ and has been given all the same [...] a message on the 's VM at [phone] to call the office. Please give the [...] review and advise. documented in this encounter [facility] 07-24-2023 Miscellaneous Notes Images from the [...] this time call the surgery center at [phone]. PLEASE CALL MARISA WITH ANY QUESTIONS ABOUT THE PREP Sunday-Sunday 8:00am-3:30pm QUESTIONS ABOUT ARRIVAL TIME: [phone] QUESTIONS ABOUT PREP: [phone] Sunday-Sunday (8AM-330PM) NEED TO RESCHEDULE: [phone] TRANSPORTATION A responsible adult (friend or family [...] With each elimination, the fluids will become car designer in color. After approximately 3 hours, the [...] absorb leaking fluid. documented in this encounter [facility] 05-22-2023 Miscellaneous Notes Addended by: SAMM [...] 5. : N/a Protocols used: Medication Question [id number] documented in this encounter [facility] 04-18-2023 Miscellaneous Notes The following approved [...] Grayson Alicia MA documented in this encounter [facility] 02-19-2023 Miscellaneous Notes Spoke with patient appointment set for 05-25-2023 at 1:30 PM for Migdalia Knapp ----- Message from Roma Edmond Ma sent at 02/01/2023 2:23 PM EDT ----- Please call patient and schedule 3 month f/u with Migdalia Knapp and 6 month f/u with . documented in this encounter [facility] 02-08-2023 Miscellaneous Notes Called and spoke [...] included. Samm Kc DO Tousi, Babak, MD; [facility] 12 hours ago (8:39 PM) Thank you for the heads up. Brittney, can we make sure that Justin gets a neuro follow up with [facility] or [facility] in the next month? Thank you Images from the original note were not included. Taiwo Lee MD Crocker, Debra, RN; Samm Kc DO [address] Kc,. I saw Mr Elena for his dementia and cognitive changes at the center for [facility]. This is not a general neurology practice or follow up after stroke and I am not neurologist. I had not access to his [facility] records other than one initial assessment from care everywhere. I advised him to resume Aspirin as the patient after stroke usually receives dual therapy for 21 days. And continue with Aspirin. We gathered the patient was given plavix for 21. I would be surprised if [facility] did not suggest a follow up with neurology after discharge or patient might have missed it.. Either way they need to follow with stroke team [facility] [facility]. If they make appointment with the [facility] stroke team, they need imaging and some data from [facility]. I called Mr Pendleton today and put [...] stroke on 12/20/22. He was treated at [facility]. She will ask then to send scans [...] his med list. documented in this encounter [facility] 02-08-2023 Miscellaneous Notes Called and spoke [...] last to fill. documented in this encounter [facility] 01-30-2023 Instructions Angeles Plata LISW - 01/30/2023 2:15 PM EDT Dear Mr. & Mrs. Barone, Our team had the [...] brain imaging done in December 2022 at [facility]. The imaging disk can be mailed to: Mulu Re[facility] Attention: Dr. Maravilla [address] [place] [address] Medical Alert System We recommend utilizing a Medical Alert System to increase safety in the home. In the event of a fall or an emergency, help is available at the push of a button. Some options for this are: Smith & Tinker: Call or visit https://Across The Universe/ & click on Seniors tab -Mobile System. -Fall detection. -Medication reminders. -GPS monitoring. -Aiden fencing option for wandering. -Checks heart rate, blood pressure, temperature, and oxygen levels. -Worn as a wristband. Life Alert: Call or visit www.365 Good Teacher -Offers home based and mobile system. -Offers a push button for the shower. -Comes in a lanyard. Lifefone: Call or visit www.Mohive -Home based or mobile system. -Fall detection. -GPS detects location of emergency. -Water proof. -Worn as a lanyard, wristband, or offers a push button. Lifeline: Call or visit wwwTextMaster -Home based & mobile system. -Fall detection. -GPS detects location of the emergency. -Water resistant; can be worn in the shower. -Worn as a wristband or lanyard. Lively: Call or visit wwwCAILabs/medical-alerts -Offers mobile systems. -Offers fall detection. -Comes in a lanyard. Also compatible with Only Mallorca. Medical Alert: Call or visit Cynergen.Frameri -Offers home based & mobile system. -Mobile system offers GPS monitoring. -Fall detection for all systems. -Systems can be worn in the bath or shower. -Two way speaker allows you to communicate with a trained response specialist who will determine who to contact for help (family, friends, or emergency responders). -Comes in a lanyard or wristband. Medical Guardian: Call or visit www.medicalVigilosnFOBO -Offers home based and mobile system. -GPS tracking for mobile system. -Water resistant, not water proof. -Worn as a lanyard or wristband. Mobile Help: Call or visit www.Planeta.ru -Offers home based & mobile system. -Comes in a lanyard or small mobile device. UnaliWear: Call or visit www.Vizsafe -Home based and mobile system. -Fall detection. [...] complete the forms for durable power of corporate associate attorney regarding both health care and finance along with completion of a living will document. Education & Support for Memory Changes When an individual experiences memory changes, no matter how mild or severe, we encourage individuals and families to educate themselves, learn communication tips, and ways to adjust expectations over time. There are many resources available online. The Alzheimer's Association (web site: alz.org/jensen) An organization that provides education and support to individuals/caregivers affected by memory loss, Alzheimer's disease, and all forms of dementia. Available 24 hours a day, 7 days per week. Contact: Local: ; Toll free: [phone] Family Caregiver [place] (web site: Caregiver.org) SANGEETAOscar Palacio-- a secure online solution for quality information, support, and resources for family caregivers. Contact: Toll-free number: 796.187.4792 Grief Support [facility]-Grief Support for all ages offered at: [address] [place] [address] Call or visit [email or web address] and Follow Up We would like you to return to [facility] for a follow up visit in 9-12 months. Our office can be reached by calling [phone] Option 1. Sincerely, MD Megan Gorman RN Tangy Kirtz, CK Adair documented in this encounter [facility] 01-30-2023 History of Present illness Narrative Reason for Consult: Memory loss I had the pleasure of seeing this 72 year old year old male at the [facility]. The patient is referred by Samm Yamini [address] [place] [address] Patient is accompanied by and information obtained from spouse Bg and available records in the system. Background and History of Present Illness: Symptoms Cognition Memory problems include short-term memory impairment, impaired learning ability and rapid forgetting. Long-term memory impairment, repeating statements and questions and forgetting events are not present. Difficulty coming up with common words and impaired fluency (HO-CHUNK) contribute to communication problems. There is impaired [...] a group of men). 01/04/23 hospitalization at [facility] for likely ischemic stroke. Onset and Progression: -2 years ago the pt had COVID, he was hospitalized for an extended period of time and then discharged to [place]. Spouse reports a gradual decline in memory [...] brain been done? Yes, MRI/CT scan at [facility] in December 2022. Prior MRI in July 2021. Social History: Marital Status: Together 40+years- and reunited-common law marriage. 3 living children; dtr recently in June 2022. Housing: Lives with spouse Bg Agencies involved: None 5. Activities of Daily Living Phillips Index of Karnes in Activities of Daily Living (A.D.L.) Bathing: [...] be done by another person. (1 POINT) [place] - Tk Instrumental Activities of Daily Living [...] snores loudly. 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 Neurological Exam Brief Neuropsychiatric Evaluation: [place] Cognitive Assessment (MoCA) Version 1 Total Score: Visuospatial/Executive: 3/5 Namin/3 Attention: /6 Language: 1/3 Abstraction: 1/2 Delayed Recall: 0/5 Orientation: 6 Education less than or equal to 12th grade: +1 PHQ-9 Score: 0 (01/30/2023 12:36 PM) (0-4) minimal depression, (5-9) mild depression, (10-14) moderate depression, (15-19) moderately severe depression, (20-27) severe depression Clock Drawin5 Abstract thinking was good. ethylbenzene oxidizer memory was poor. He could name 7 [...] Mild inflammatory changes in the paranasal sinuses. Mine Motor Operator: MICHELE Transcribe Date/Time: Jul 23 2021 12:04P [...] Recommended patient's get the MRI results from [facility] and send here. -Recommend patient follow-up with their [facility] neurologist for stroke follow-up.Encouraged to resume baby Aspirin as he is off plavix after 21 days use, -Lifeline -Provided reading materials on disease and the expected disease course -Follow up in 6-9 months. Ian Hatfield DO PGY-2, Family Medicine I personally have reviewed [...] which included preparing to see the patient, dcdm-mg-ozdd patient care, performing a medically appropriate examination, completing clinical documentation, and on counseling/ eductaing the patient and the family. Taiwo Lee MD documented in this encounter [facility] 01-30-2023 Nurse Note Tere Barone is a 72 year old year old right handed man Accompanied by: spouse. Referral by: Samm [address] [address] Education: High School Diploma, 12 years Employment [...] Zoe Brito MA documented in this encounter [facility] 12-22-2022 Miscellaneous Notes Noted. Patient canceled echocardiogram of 01/05/23 that was to be at [facility] because he had one at [facility] on 12/20/22. Patient pursuing release of information to Dr Salas. documented in this encounter [facility] 12-15-2022 Instructions Priscilla Salas MD - [...] taking a cigarette break. Don't carry a car designer, matches, or cigarettes. Go to places that [...] Don't give up! documented in this encounter [facility] 12-15-2022 History of Present illness Narrative Images from the original note were not included. [facility] [place] Chloe Bal Department of Cardiovascular Medicine [facility] 12/15/2022 OUTPATIENT VISIT TYPE Established HISTORY OF PRESENT ILLNESS: Mr. Barone is 72 year old male who was first evaluated at [facility] on 07/22/21 for a fall at [...] 74 - 99 mg/dL Final Comment: The [place] Diabetes Association (ADA) provides guidance for cutoff [...] Standards of Medical Care in Diabetes 2016, [place] Diabetes Association. Diabetes Care. 2016.39(Suppl 1). BUN [...] with VKA drugs, such as warfarin, the [place] College of Chest Physicians 2012 Guideline recommends [...] Chest 2012, 141:7S-47S Adalberto RA, et al. [facility] 2017, 70: 252-289 Cardiovascular Testing: I [...] or sooner as needed Priscilla Salas MD FAC Racing Board Marker, Dept of Medicine, [facility]. Outside Sales Executive of Cardiac Catheterization laboratory [facility]. Clinical Asst. office machine inspector. [facility] Medicine. Staff Interior Design Consultant, [facility] [place]. Chloe Bal Department of Cardiovascular Medicine. [facility]. [address], [address] [place] [address] documented in this encounter [facility] 11-13-2022 History of Present illness Narrative [...] visits Payer: Payor: HUMANA MEDICARE / Plan: ArQule PLUS / Product Type: HMO / Care Gap [...] 2022 9:19 AM documented in this encounter [facility] 10-23-2022 History of Present illness Narrative [facility] [place] AUDIOLOGIC EVALUATION REPORT Name: Tere Barone CCF#: [id number] Date of Service: 10/23/2022 Date of : 1950 Age: [age] year old Referred by: Samm Kc DO [address] [place] [address] Referred for: Evaluation of suspected change in hearing, tinnitus, or balance. Referral documented: In an order in [facility] Patient's major complaints: Reduced hearing in [...] evaluation of middle ear function. CPT code: 73624 RIGHT EAR: Normal ME function. LEFT EAR: Normal ME function. ACOUSTIC REFLEXES Description of procedure: This test is an objective measure of auditory and facial nerve pathways. CPT code: 21111, 50424 RIGHT EAR PROBE EAR: (ipsi right stimulus [...] bone conduction and speech recognition testing. CPT code:07415 RIGHT EAR: Hearing Sensitivity: Normal hearing sensitivity [...] Hz and a severe sensorineural loss from 1900-4132 Hz. Word Recognition Score: Excellent (90-100%). WRS [...] an individual with normal hearing. CPT code: 55823. Procedure time: 10-15 minutes. RIGHT EAR: 5 [...] strategies to enhance communication ability. Aleks Hyatt, [facility] Abbrev- iation Definition Degree of hearing sensitivity dB range WNL within normal limits WNL 0 - 20 SNHL sensorineural hearing loss Mild 20-40 CHL conductive hearing loss Moderate 40-55 MHL mixed hearing loss Moderately-Severe 55-70 WRS word recognition score Severe 70-90 ME middle ear Profound 90 + TM tympanic membrane documented in this encounter [facility] 09-22-2022 History of Present illness Narrative CC: ED follow up S: 72 year old male with history below presents for ED follow up. Notes reviewed- had BG of 340 which brought him to the [...] Abs Lymph 1.00 - 4.00 k/uL 3.43 [place]% % 6.8 Abs [place] <0.87 k/uL 0.62 Eosin% % 3.5 Abs [...] bedtime. 90 tablet 3 flash glucose sensor (Silicone Arts LaboratoriesSTYLE YESSENIA 2 SENSOR) kit CHANGE EVERY 14 [...] with more than 50% of the total ddnj-ke-xoal time of the visit in counseling / [...] in 6 months documented in this encounter [facility] 09-18-2022 Miscellaneous Notes JENNIFER 04/12APR 14 Patient has been identified by name and date of : Yes Requested Prescriptions Pending Prescriptions Disp Refills atorvastatin (LIPITOR) 80 mg tablet 90 tablet 3 Si tablet by ORAL/FEEDING TUBE route daily at bedtime. RX INSTRUCTIONS: Patient aware RX will be sent to pharmacy. No need to notify patient. Vy Simpson documented in this encounter [facility] 09-18-2022 Miscellaneous Notes Call to pt, [...] pcp within 2 days. No availability in [place] office until Sunday with Dr. Peter. Appt was scheduled, but patient wants to know if it is ok to wait until Sunday. Please advise at [phone]. documented in this encounter [facility] 08-02-2022 Instructions Sedrick Roberts MD - 08/02/2022 10:48 AM EST - Continue Rybelsus 14 mg daily - Continue Glipizide XL 2.5 mg 2 pills once a day - Change Metformin to extended release 2 pills twice a day documented in this encounter [facility] 08-02-2022 History of Present illness Narrative [...] oxygen requirements. He was discharge to a senior care on insulin and metfomrin He developed thrombocytopenia [...] mg daily Home glucose monitoring: He has Acesis yessenia 2 The patient's continuous glucose monitoring [...] Medication Sig Dispense Refill flash glucose sensor (Lighting Science GroupYLE YESSENIA 2 SENSOR) kit CHANGE EVERY 14 [...] which included preparing to see the patient, xueu-ju-oxme patient care, completing clinical documentation, counseling and educating the patient/family/caregiver, and ordering medications, tests, or procedures. Sedrick Roberts MD documented in this encounter [facility] 08-01-2022 Miscellaneous Notes Called patient's home, left voice message to call office at [phone], and ask to speak to the nurse. Thank you. They have an appointment with me tomorrow and we will discuss HH Ex spouse Bg velásquez. Ph. [phone] Glucose readings as follows: 08:30 - 318 09:10 297 09:27 283 Please contact bg. Thank you. documented in this encounter [facility] 07-07-2022 Miscellaneous Notes Received a [facility] request for Freestyle Yessenia Sensor 2. [...] disconnected the call. Contacted the pharmacy ([facility]) and spoke to Susan to notify them [...] next fill. Closed. documented in this encounter [facility] 07-04-2022 Miscellaneous Notes Pharmacy verified in [facility] Patient has been identified by name and [...] Date Value 04/04/2022 7.5 Please advise. Fabi Simpson documented in this encounter [facility] 07-01-2022 Miscellaneous Notes - Continue metformin [...] advise. Fabi Simpson documented in this encounter [facility] 05-05-2022 Miscellaneous Notes Radiology Service Progress [...] 2022 12:12 PM documented in this encounter [facility] 05-05-2022 Nurse Note Radiology Service Progress [...] TIME: 11:34 AM documented in this encounter [facility] 04-14-2022 History of Present illness Narrative [...] 2022 1:39 PM documented in this encounter [facility] 04-12-2022 History of Present illness Narrative SUBSEQUENT MEDICARE YEARLY WELLNESS Date of last exam n/a Justin currently living at: [address] [place] [address] [place] [address] Medical, surgical, family and social histories reviewed [...] 1.00 - 4.00 k/uL 4.65 (H) 3.53 [place]% % 6.6 6.8 Abs [place] <0.87 k/uL 0.86 0.63 Eosin% % 3.6 [...] ICD10: E11.65 The patient is new to me. - Continue current medications - Encouraged regular [...] in 6 months documented in this encounter [facility] 03-01-2022 Miscellaneous Notes Your office note does not say he is taking Metfomin 500 MG or there is a Metformin ER 500 MG. If this is correct below please send or would you like me to check with patient? Patient requesting a refill on metformin. Please send to the [facility] on [facility] in [place]. documented in this encounter [facility] 02-15-2022 Miscellaneous Notes Call placed no [...] Metformin as ordered. documented in this encounter [facility] 01-31-2022 Miscellaneous Notes Reason for Call: [...] N/A Protocols used: Diabetes - Low Blood [id number]-KPIFD-HW documented in this encounter [facility] 01-30-2022 Instructions Cornelio Persaud MD - [...] taken early enough. documented in this encounter [facility] 01-30-2022 History of Present illness Narrative Images from the original note were not included. [facility] Follow up/ Established patient visit Individuals who were included in, or assisted with the encounter were: Justin Persaud MD Chief Complaint/Issues: Justin Barone is a 71 year old R handed male w PMH diabetes, alcohol abuse, smoking, HLD, R carotid 80% stenosis (asymptomatic), DDD L spine s/p surgery but still has back pain limiting his mobility seen in the [facility] for: Carotid stenosis Most [...] pain limiting his mobility seen in the [facility] for: Carotid stenosis --Right carotid 80% stenosis. No significant calcification. Discrepancy between CTA and CUS in degree of stenosis estimation. I think CTA estimation is more accurate and CUS might underestimated the lesion. Nonetheless, it is asymptomatic. I put him on maximal medical management. Will recheck CUS at center. Will also refer him to neurointerventionalist for diagnostic angiogram to get a better estimat of the degree of stenosis. --HLP: LDL 133 --DMII --smoking: he has quit --DDD L spine s/p surgery: he needs to follow up with spine medicine. He declined referral or repeat MRI of L spine Plan --Aspirin 81mg daily --atorvastatin 80mg bedtime --carotid US at [facility] --consult Dr. Ames or Rip at [facility] for diagnostic angiogram --consider to follow up [...] Current medication: atorvastatin 80mg daily. He said public information coordinator do not want him to be on [...] pain limiting his mobility seen in the [facility] for: Carotid stenosis --Asymptomatic Right carotid 80% stenosis on CTA. Repeat CUS showed stable but >70% stenosis. He does not want to have surgery now. Will do maximal medical management. I discussed with public information coordinator Dr. Hernandez about aspirin and he is [...] Lymph 4.65 (H) 1.00 - 4.00 k/uL [place]% 6.6 % Abs [place] 0.86 <0.87 k/uL Eosin% 3.6 % Abs [...] which included preparing to see the patient, teyh-aq-fafg patient care, completing clinical documentation, obtaining and/or reviewing separately obtained history, performing a medically appropriate examination, counseling and educating the patient/family/caregiver, ordering medications, tests, or procedures, independently interpreting results (not separately reported), communicating results to the patient/family/caregiver, and care coordination (not separately reported). Cornelio Persaud MD documented in this encounter [facility] 01-25-2022 History of Present illness Narrative [...] 2022 2:14 PM documented in this encounter [facility] 12-21-2021 Instructions Sedrick Roberts MD - [...] let me know documented in this encounter [facility] 12-21-2021 History of Present illness Narrative [...] oxygen requirements. He was discharge to a senior care on insulin and metfomrin He developed thrombocytopenia [...] needs it) Home glucose monitoring: He has Acesis yessenia 2 The patient's continuous glucose monitoring [...] with more than 50% of the total dtcq-dj-dduj time of the visit in counseling / coordination of care. Sedrick Roberts MD documented in this encounter [facility] 11-14-2021 Miscellaneous Notes Pt. Notified antiplatelet factor IV antibody returned positive. Dr. Arias ordered additional testing. Pt. Informed he can go to [place] or [facility] to have lab testing done. Pt. Voiced understanding. Hortensia Benitez LPN I was notified by the ER that his antiplatelet factor IV antibody assay returned positive so he will have to have the additional test I ordered under this encounter. I am not sure if the sample can be drawn here or if he will need to go to [place] or [place]. He lives in [place] so best to go to 1 of those other 2 locations if they can draw it. Michael Arias DO documented in this encounter [facility] 11-11-2021 History of Present illness Narrative [...] falling. Patient was in the ED at [place] yesterday for hypoglycemic episode. LABS: Component Latest [...] 1.00 - 4.00 k/uL 2.77 2.63 2.78 [place]% % 5.2 5.6 6.3 Abs [place] <0.87 k/uL 0.78 0.77 0.78 Eosin% % [...] as of 07/2021. Quit smoking 07/2021. 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 One has POA. Lives with in [place]. Family history: Sister--Brain cancer. PHYSICAL EXAM: Vitals: [...] the legs consistent with scratch arias. NEUROLOGIC: telemarketer II-XII are grossly intact. No focal motor [...] no unusual bleeding. -My nursing staff contacted [facility]. Patient had no subcutaneous heparin or [...] which included preparing to see the patient, tssh-mv-iqyy patient care, completing clinical documentation, obtaining and/or reviewing separately obtained history, performing a medically appropriate examination, counseling and educating the patient/family/caregiver, ordering medications, tests, or procedures, communicating results to the patient/family/caregiver and care coordination (not separately reported). Michael Arias DO documented in this encounter [facility] 11-09-2021 Miscellaneous Notes Reason for call: [...] ALONE: Protocols used: DIABETES - LOW BLOOD [id number] advised to update the office tomorrow documented in this encounter [facility] 10-25-2021 History of Present illness Narrative [facility] Initial Outpatient Visit Justin Barone CC#: [id number] Date of Service: 10/25/2021 Primary Care Provider: Quinn Sharp MD [facility] [address] [address] The patient was referred by Cornelio Persaud [...] Erwin MD October 25, 2021 CC Cornelio Man [address] [facility] [address] Quinn Sharp ([facility]) [address] [address] documented in this encounter [facility] 10-12-2021 Instructions Cornelio Persaud MD - 10/12/2021 10:32 AM EDT --Aspirin 81mg daily --atorvastatin 80mg bedtime --carotid US at [facility] --consult Dr. Ames or Rip at [facility] for diagnostic angiogram --consider to follow up with spine medicine for your back --follow up with me in 3-4 months documented in this encounter [facility] 10-12-2021 History of Present illness Narrative Images from the original note were not included. [facility] General Neurology Follow up/ Established patient visit Individuals who were included in, or assisted with the encounter were: Justin Barone Cornelio Persaud MD Chief Complaint/Issues: Justin Barone is a 71 year old R handed male w PMH diabetes, alcohol abuse, smoking, HLD, R carotid 80% stenosis (asymptomatic), DDD L spine s/p surgery but still has back pain limiting his mobility seen in the [facility] for: 1. Carotid stenosis [...] pain limiting his mobility seen in the [facility] for: Carotid stenosis --Right [...] daily --atorvastatin 80mg bedtime --carotid US at [facility] --consult Dr. Ames or Rip at [facility] for diagnostic angiogram --consider to follow up [...] QTC Calculation (Bazett) 459 ms Calculated P [place] -4 degrees Calculated R [place] -24 degrees Calculated T [place] 6 degrees Outside Data/Labs: Subjective Patient-Entered Data: 10/12/21 - GENERAL NEUROLOGY SCORES No flowsheet data found. Depression Screening 02/26/2018 06/13/2018 01/28/2019 PHQ-2 Score 1 1 2 PHQ-9 Score 5 3 8 No flowsheet data found. No flowsheet data found. No flowsheet data found. I spent a total of 60 minutes on the date of the service which included preparing to see the patient, [id number] patient care, completing clinical documentation, obtaining and/or reviewing separately obtained history, performing a medically appropriate examination, counseling and educating the patient/family/caregiver, ordering medications, tests, or procedures, independently interpreting results (not separately reported), communicating results to the patient/family/caregiver and care coordination (not separately reported). Cornelio Persaud MD documented in this encounter [facility] 09-26-2021 Miscellaneous Notes Images from the [...] from the stress documented in this encounter [facility] 09-22-2021 History of Present illness Narrative [...] POST EXAM PIV STATUS: Discontinued PROCEDURE TYPE: NE Stress: 13.3mCi [id number] was administered IV for Rest Imaging at 1303 by Marti Velazquez RT(R) . 33.1 mCi [id number] was administered IV for Stress Imaging at 1358 by RT Roger(R) . PATIENT DISCHARGED TO: Ambulatory patient, left NE department area. A Diagnostic radioactive procedure has taken place, with no further precautions necessary other than routine body substance precautions. More information regarding radiation safety can be found using this link: [email or web address] SIGNATURE: RT Roger(R) PATIENT NAME: Justin Barone DATE: September 22, 2021 TIME: 1:20 PM PAGER/CONTACT #: documented in this encounter [facility] 09-07-2021 History of Present illness Narrative TRANSITION CARE MANAGEMENT (TCM) INITIAL CONTACT Call Summary: Justin Barone transitioned from short stay to non short stay at [facility] on 09/05/2021. No TCM calls at this time as patient discharged to [facility]. No further call needed at this time. Rina Mcdowell RN September 07, 2021 8:22 AM documented in this encounter [facility] 08-10-2021 History of Past i llness Narrative Problem Noted Date Resolved Date Acute respiratory failure with hypoxia 10/10/2022 Last Assessment & Plan: Assessment: -See HPI -ABG 7.48/32//24 PLAN: -Start Airvo therapy, wean as tolerated [...] of this encounter (statuses as of 10/23/2022) [facility]03[facility]2022 History of Past illness Narrative* Problem [...] of this encounter (statuses as of 11/13/2022) [facility] History of Past illness Narrative* Problem [...] of this encounter (statuses as of 12/01/2022) [facility] History of Past illness Narrative* Problem Noted Date Resolved Date Acute respiratory failure with hypoxia 10/10/2022 Last Assessment & Plan: Assessment: -See HPI -ABG 7.48/32/ PLAN: -Start Airvo therapy, wean as tolerated [...] of this encounter (statuses as of 12/15/2022) [facility] History of Past illness Narrative* Problem [...] of this encounter (statuses as of 12/22/2022) [facility] History of Past illness Narrative* Problem [...] of this encounter (statuses as of 01/31/2023) [facility] History of Past illness Narrative* Problem Noted Date Diagnosed Date Resolved Date Acute respiratory failure with hypoxia 08/10/2021 10/10/2022 Last Assessment & Plan: Assessment: -See HPI -ABG 7.48/32/ PLAN: -Start Airvo therapy, wean as tolerated [...] of this encounter (statuses as of 02/09/2023) [facility] History of Past illness Narrative* Problem [...] of this encounter (statuses as of 02/09/2023) [facility] History of Past illness Narrative* Problem [...] of this encounter (statuses as of 02/19/2023) [facility] History of Past illness Narrative* Problem Noted Date Diagnosed Date Resolved Date Acute respiratory failure with hypoxia 08/10/2021 10/10/2022 Last Assessment & Plan: Assessment: -See HPI -ABG 7.48/32/ PLAN: -Start Airvo therapy, wean as tolerated [...] of this encounter (statuses as of 04/15/2023) [facility] History of Past illness Narrative* Problem [...] of this encounter (statuses as of 04/15/2023) [facility] History of Past illness Narrative* Problem [...] of this encounter (statuses as of 04/18/2023) [facility] History of Past illness Narrative* Problem Noted Date Diagnosed Date Resolved Date Acute respiratory failure with hypoxia 08/10/2021 10/10/2022 Last Assessment & Plan: Assessment: -See HPI -ABG 7.48/32/24 PLAN: -Start Airvo therapy, wean as tolerated [...] of this encounter (statuses as of 05/23/2023) [facility] History of Past illness Narrative* Problem [...] of this encounter (statuses as of 07/24/2023) [facility] History of Past illness Narrative* Problem [...] of this encounter (statuses as of 08/01/2023) [facility] History of Past illness Narrative* Problem Noted Date Diagnosed Date Resolved Date Acute respiratory failure with hypoxia 08/10/2021 10/10/2022 Last Assessment & Plan: Assessment: -See HPI -ABG 7.48/32//24 PLAN: -Start Airvo therapy, wean as tolerated [...] of this encounter (statuses as of 08/17/2023) [facility] History of Past illness Narrative* Problem [...] of this encounter (statuses as of 08/23/2023) [facility] History of Past illness Narrative* Problem [...] of this encounter (statuses as of 09/05/2023) [facility] History of Past illness Narrative* Problem Noted Date Diagnosed Date Resolved Date Acute respiratory failure with hypoxia 08/10/2021 10/10/2022 Last Assessment & Plan: Assessment: -See HPI -ABG 7.48/32/24 PLAN: -Start Airvo therapy, wean as tolerated [...] of this encounter (statuses as of 09/11/2023) [facility] History of Past illness Narrative* Problem [...] of this encounter (statuses as of 09/28/2023) [facility] History of Past illness Narrative* Problem [...] of this encounter (statuses as of 09/28/2023) [address]12-2022 History of Past illness Narrative* Problem Noted Date Resolved Date Slurred speech 07/23/2021 07/24/2021 Leukocytosis 07/23/2021 07/24/2021 Altered mental status 07/23/2021 07/24/2021 documented as of this encounter (statuses as of 09/07/2021) [address]-2022 History of Past illness Narrative* Problem Noted Date Resolved Date Slurred speech 07/23/2021 07/24/2021 Leukocytosis 07/23/2021 07/24/2021 Altered mental status 07/23/2021 07/24/2021 documented as of this encounter (statuses as of 09/26/2021) [address]-2022 History of Past illness Narrative* Problem Noted Date Resolved Date Slurred speech 07/23/2021 07/24/2021 Leukocytosis 07/23/2021 07/24/2021 Altered mental status 07/23/2021 07/24/2021 documented as of this encounter (statuses as of 10/12/2021) [address]12-2022 History of Past illness Narrative* Problem Noted Date Resolved Date Slurred speech 07/23/2021 07/24/2021 Leukocytosis 07/23/2021 07/24/2021 Altered mental status 07/23/2021 07/24/2021 documented as of this encounter (statuses as of 10/25/2021) [address]12-2022 History of Past illness Narrative* Problem Noted Date Resolved Date Slurred speech 07/23/2021 07/24/2021 Leukocytosis 07/23/2021 07/24/2021 Altered mental status 07/23/2021 07/24/2021 documented as of this encounter (statuses as of 10/26/2021) [address]-2022 History of Past illness Narrative* Problem Noted Date Resolved Date Slurred speech 07/23/2021 07/24/2021 Leukocytosis 07/23/2021 07/24/2021 Altered mental status 07/23/2021 07/24/2021 documented as of this encounter (statuses as of 11/10/2021) [address]12-2022 History of Past illness Narrative* Problem Noted Date Resolved Date Slurred speech 07/23/2021 07/24/2021 Leukocytosis 07/23/2021 07/24/2021 Altered mental status 07/23/2021 07/24/2021 documented as of this encounter (statuses as of 11/11/2021) [address]12-2022 History of Past illness Narrative* Problem Noted Date Resolved Date Slurred speech 07/23/2021 07/24/2021 Leukocytosis 07/23/2021 07/24/2021 Altered mental status 07/23/2021 07/24/2021 documented as of this encounter (statuses as of 12/02/2021) [address]12-2022 History of Past illness Narrative* Problem Noted Date Resolved Date Slurred speech 07/23/2021 07/24/2021 Leukocytosis 07/23/2021 07/24/2021 Altered mental status 07/23/2021 07/24/2021 documented as of this encounter (statuses as of 12/03/2021) [address]12-[address]22 History of Past illness Narrative* Problem Noted Date Resolved Date Slurred speech 07/23/2021 07/24/2021 Leukocytosis 07/23/2021 07/24/2021 Altered mental status 07/23/2021 07/24/2021 documented as of this encounter (statuses as of 12/21/2021) [address]12-[address]22 History of Past illness Narrative* Problem Noted Date Resolved Date Slurred speech 07/23/2021 07/24/2021 Leukocytosis 07/23/2021 07/24/2021 Altered mental status 07/23/2021 07/24/2021 documented as of this encounter (statuses as of 01/22/2022) [address]12-2022 History of Past illness Narrative* Problem Noted Date Resolved Date Slurred speech 07/23/2021 07/24/2021 Leukocytosis 07/23/2021 07/24/2021 Altered mental status 07/23/2021 07/24/2021 documented as of this encounter (statuses as of 01/26/2022) [address]12-2022 History of Past illness Narrative* Problem Noted Date Resolved Date Slurred speech 07/23/2021 07/24/2021 Leukocytosis 07/23/2021 07/24/2021 Altered mental status 07/23/2021 07/24/2021 documented as of this encounter (statuses as of 01/30/2022) [address]12-2022 History of Past illness Narrative* Problem Noted Date Resolved Date Slurred speech 07/23/2021 07/24/2021 Leukocytosis 07/23/2021 07/24/2021 Altered mental status 07/23/2021 07/24/2021 documented as of this encounter (statuses as of 02/01/2022) [address]12-2022 History of Past illness Narrative* Problem Noted Date Resolved Date Slurred speech 07/23/2021 07/24/2021 Leukocytosis 07/23/2021 07/24/2021 Altered mental status 07/23/2021 07/24/2021 documented as of this encounter (statuses as of 02/15/2022) [address]12-2022 History of Past illness Narrative* Problem Noted Date Resolved Date Slurred speech 07/23/2021 07/24/2021 Leukocytosis 07/23/2021 07/24/2021 Altered mental status 07/23/2021 07/24/2021 documented as of this encounter (statuses as of 02/15/2022) [address]12-2022 History of Past illness Narrative* Problem Noted Date Resolved Date Slurred speech 07/23/2021 07/24/2021 Leukocytosis 07/23/2021 07/24/2021 Altered mental status 07/23/2021 07/24/2021 documented as of this encounter (statuses as of 03/01/2022) [address]12-2022 History of Past illness Narrative* Problem Noted Date Resolved Date Slurred speech 07/23/2021 07/24/2021 Leukocytosis 07/23/2021 07/24/2021 Altered mental status 07/23/2021 07/24/2021 documented as of this encounter (statuses as of 04/12/2022) [address]12-2022 History of Past illness Narrative* Problem Noted Date Resolved Date Slurred speech 07/23/2021 07/24/2021 Leukocytosis 07/23/2021 07/24/2021 Altered mental status 07/23/2021 07/24/2021 documented as of this encounter (statuses as of 04/22/2022) [address]12-2022 History of Past illness Narrative* Problem Noted Date Resolved Date Slurred speech 07/23/2021 07/24/2021 Leukocytosis 07/23/2021 07/24/2021 Altered mental status 07/23/2021 07/24/2021 documented as of this encounter (statuses as of 07/01/2022) [address]12-2022 History of Past illness Narrative* Problem Noted Date Resolved Date Slurred speech 07/23/2021 07/24/2021 Leukocytosis 07/23/2021 07/24/2021 Altered mental status 07/23/2021 07/24/2021 documented as of this encounter (statuses as of 07/05/2022) [address]12-2022 History of Past illness Narrative* Problem Noted Date Resolved Date Slurred speech 07/23/2021 07/24/2021 Leukocytosis 07/23/2021 07/24/2021 Altered mental status 07/23/2021 07/24/2021 documented as of this encounter (statuses as of 07/07/2022) [address] History of Past illness Narrative* Problem Noted Date Resolved Date Slurred speech 07/23/2021 07/24/2021 Leukocytosis 07/23/2021 07/24/2021 Altered mental status 07/23/2021 07/24/2021 documented as of this encounter (statuses as of 08/01/2022) [facility] History of Past illness Narrative* Problem Noted Date Resolved Date Slurred speech 07/23/2021 07/24/2021 Leukocytosis 07/23/2021 07/24/2021 Altered mental status 07/23/2021 07/24/2021 documented as of this encounter (statuses as of 08/02/2022) [facility] History of Past illness Narrative* Problem Noted Date Resolved Date Slurred speech 07/23/2021 07/24/2021 Leukocytosis 07/23/2021 07/24/2021 Altered mental status 07/23/2021 07/24/2021 documented as of this encounter (statuses as of 09/19/2022) [facility] History of Past illness Narrative* Problem Noted Date Resolved Date Slurred speech 07/23/2021 07/24/2021 Leukocytosis 07/23/2021 07/24/2021 Altered mental status 07/23/2021 07/24/2021 documented as of this encounter (statuses as of 09/19/2022) [facility] History of Past illness Narrative* Problem Noted Date Resolved Date Slurred speech 07/23/2021 07/24/2021 Leukocytosis 07/23/2021 07/24/2021 Altered mental status 07/23/2021 07/24/2021 documented as of this encounter (statuses as of 09/23/2022) [facility]21 History of Present illness Narrative* Portia William (Rt), Marilee - 09/20/2020 4:15 PM EDT Radiology Service [...] IV DATA: Not applicable SIGNED BY: Portia WILLIAM RT September 20, 2020 4:20 PM [facility] Diagnosis Stenosis of right carotid artery- [...] fusion Arthrodesis status [facility] Diagnosis Stenosis of right carotid artery Occlusion and stenosis of carotid artery without mention of cerebral infarction Hypertension, unspecified type Hyperlipidemia, unspecified hyperlipidemia type H/O fall Personal history of fall H/O syncope Other specified personal history presenting hazards to health [facility] Diagnosis Stenosis of right carotid artery Occlusion and stenosis of carotid artery without mention of cerebral infarction [facility] Diagnosis Thrombocytopenia (HCC)- Primary Thrombocytopenia, unspecified [facility] Diagnosis Thrombocytopenia (HCC)- Primary Thrombocytopenia, unspecified [facility] Diagnosis Thrombocytopenia (HCC) Thrombocytopenia, unspecified [facility] Diagnosis Controlled type 2 diabetes mellitus without complication, 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 indoor landscape architect insulin use (HCC) [facility] Diagnosis Thrombocytopenia (HCC)- Primary Thrombocytopenia, unspecified [facility] Diagnosis Stenosis of right carotid artery Occlusion and stenosis of carotid artery without mention of cerebral infarction [facility] Diagnosis Stenosis of right carotid artery- [...] fusion Arthrodesis status [facility] Wellness examination- Primary Screening for [...] impairment, so stated [facility] Diagnosis Occlusion and stenosis of unspecified carotid artery- Primary [facility] Diagnosis Type 2 diabetes mellitus with hyperglycemia, without long-term current use of insulin (HCC) [facility] Diagnosis Type 2 diabetes mellitus with hyperglycemia, without long-term current use of insulin (HCC)- Primary [facility] Diagnosis Hyperglycemia- Primary Other abnormal glucose Type 2 diabetes mellitus with hyperglycemia, without long-term current use of insulin (HCC) Memory loss Abrasion of right hand, initial encounter Sensorineural hearing loss (SNHL) of both ears [facility] Diagnosis Sensorineural hearing loss, bilateral- Primary [facility] Diagnosis Type 2 diabetes mellitus with hyperglycemia (HCC) Type II or unspecified type diabetes mellitus without mention of complication, not stated as uncontrolled [facility] Diagnosis Essential hypertension- Primary Unspecified essential hypertension Cardiomyopathy, ischemic Other specified forms of chronic ischemic heart disease Mixed hyperlipidemia Tobacco use disorder Alcohol abuse Alcohol abuse, unspecified Obesity, Class I, BMI 30-34.9 Obesity, unspecified Stenosis of right carotid artery Occlusion and stenosis of carotid artery without mention of cerebral infarction [facility] Diagnosis Mild dementia without behavioral disturbance, psychotic disturbance, mood disturbance, or anxiety, unspecified dementia type (HCC)- Primary Memory loss [facility] Essential hypertension Unspecified essential hypertension [facility] Diagnosis Screening for abdominal aortic aneurysm Screening for other and unspecified cardiovascular conditions [facility] Diagnosis Occlusion and stenosis of unspecified carotid artery [facility] Diagnosis Essential hypertension Unspecified essential hypertension [facility] Diagnosis Type 2 diabetes mellitus with hyperglycemia, 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 skilled nursing insulin use (HCC)- Primary Memory loss Skin lesion Unspecified disorder of skin and subcutaneous tissue [facility] Diagnosis Neoplasm of skin- Primary Neoplasm of unspecified nature of bone, soft tissue, and skin [facility] Diagnosis 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 [facility] Diagnosis Essential hypertension Unspecified essential hypertension [facility] Diagnosis Mixed Alzheimer's and vascular dementia (HCC) Alzheimer's disease [facility] Diagnosis Mixed Alzheimer's and vascular dementia (HCC)- Primary Alzheimer's disease Cognitive communication deficit [facility] Diagnosis Callus of foot- Primary Corns and callosities Onychomycosis Dermatophytosis of nail Diabetic polyneuropathy associated with type 2 diabetes mellitus (HCC) [facility] Diagnosis Acute pain of right shoulder- Primary Acute pain of right shoulder [facility] Diagnosis Acute pain of right shoulder [facility] Diagnosis 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 [facility] Diagnosis Visit for suture removal- Primary Encounter for removal of sutures [facility] Diagnosis Mixed hyperlipidemia- Primary Encounter for immunization Need for other specified prophylactic vaccination against single bacterial disease Type 2 diabetes mellitus without complication, without long-term current use of insulin (HCC) Essential hypertension Unspecified essential hypertension Tobacco use disorder SCC (squamous cell carcinoma), arm, left Mixed Alzheimer and vascular dementia (HCC) [facility] Diagnosis Type 2 diabetes mellitus without complication, without long-term current use of insulin (HCC)- Primary [facility] Diagnosis Neoplasm of skin- Primary Neoplasm [...] Lentigines Other dyschromia [facility] Diagnosis Frequent falls- Primary Personal history [...] with behavioral disturbance [facility] Diagnosis Frequent falls- Primary Personal history [...] malignant neoplasms, colon [facility] Diagnosis Frequent falls- Primary Personal history [...] unspecified cardiovascular conditions [facility] Long-term current use of opiate analgesic Encounter for long-term (current) use of other medications [facility] Diagnosis Frequent falls- Primary Personal history [...] of right hand [facility] Diagnosis Frequent falls- Primary Personal history [...] (HCC) Alzheimer's disease documented in this encounter [facility] note* Diagnosis Frequent falls- Primary Personal history [...] stenosis, asymptomatic, bilateral [facility] Diagnosis Frequent falls- Primary Personal history [...] daily living (ADL) [facility] Diagnosis Frequent falls- Primary Personal history [...] community resources- Primary documented in this encounter [facility] note* Diagnosis Frequent falls- Primary Personal history [...] of colonic polyps documented in this encounter [facility] note* Diagnosis Frequent falls- Primary Personal history [...] initial encounter- Primary documented in this encounter [facility] note* Diagnosis Frequent falls- Primary Personal history [...] of colonic polyps documented in this encounter [facility] note* Diagnosis Frequent falls- Primary Personal history [...] of colonic polyps documented in this encounter [facility] note* Diagnosis Frequent falls- Primary Personal history [...] disturbance Memory loss [facility] Diagnosis Frequent falls- Primary Personal history [...] Unspecified essential hypertension documented in this encounter [facility] note* Diagnosis Frequent falls- Primary Personal history [...] other eye conditions documented in this encounter [facility] note* Diagnosis Frequent falls- Primary Personal history [...] of insulin (HCC) documented in this encounter [facility] note* Diagnosis Frequent falls- Primary Personal history [...] of insulin (HCC) [facility] Diagnosis Frequent falls- Primary Personal history [...] Vascular dementia, uncomplicated Nicotine dependence, cigarettes, uncomplicated halfway (current) use of aspirin [facility] Diagnosis Frequent falls- Primary Personal history [...] with behavioral disturbance [facility] Diagnosis Frequent falls- Primary Personal history [...] of colonic polyps [facility] Diagnosis Frequent falls- Primary Personal history [...] diabetes mellitus (HCC) documented in this encounter [facility] note* Diagnosis Frequent falls- Primary Personal history [...] Diarrhea, unspecified type documented in this encounter [facility] note* Diagnosis Frequent falls- Primary Personal history [...] Tobacco use disorder documented in this encounter [facility] note* Diagnosis Frequent falls- Primary Personal history [...] (HCC) Alzheimer's disease documented in this encounter [facility] note* Diagnosis Frequent falls- Primary Personal history [...] insulin (HCC)- Primary documented in this encounter [facility] note* Diagnosis Frequent falls- Primary Personal history [...] insulin (HCC)- Primary [facility] Diagnosis Frequent falls- Primary Personal history [...] of lymph nodes [facility] Diagnosis Frequent falls- Primary Personal history [...] 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 Frequent falls- Primary Personal history [...] of insulin (HCC) [facility] Diagnosis Frequent falls- Primary Personal history [...] of lymph nodes [facility] Diagnosis Frequent falls- Primary Personal history [...] 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 Frequent falls- Primary Personal history [...] of lymph nodes [facility] Diagnosis Frequent falls- Primary Personal history [...] of lymph nodes [facility] Diagnosis Frequent falls- Primary Personal history [...] of lymph nodes [facility] Diagnosis Frequent falls- Primary Personal history of fall Near syncope Syncope and collapse COVID-19 Essential hypertension Unspecified essential hypertension Mixed hyperlipidemia Nicotine use disorder Tobacco use disorder Obesity, Class I, BMI 30-34.9 Obesity, unspecified Type 2 diabetes mellitus with hyperglycemia, without long-term current use of insulin (HCC) Localized enlarged lymph nodes Enlargement of lymph nodes documented in this encounter [facility] note* Diagnosis Frequent falls- Primary Personal history [...] of lymph nodes documented in this encounter [facility] note* Diagnosis Frequent falls- Primary Personal history [...] of insulin (HCC) documented in this encounter [facility] note* Diagnosis Frequent falls- Primary Personal history [...] body region (HCC) documented in this encounter [facility] note* Diagnosis Frequent falls- Primary Personal history [...] anemia, unspecified (HCC) [facility] Diagnosis Frequent falls- Primary Personal history [...] anemia, unspecified (HCC) [facility] Diagnosis Frequent falls- Primary Personal history [...] urinary tract symptoms documented in this encounter [facility] note* Diagnosis Frequent falls- Primary Personal history [...] due to immunosuppression [facility] Diagnosis Frequent falls- Primary Personal history [...] malaise and fatigue [facility] Diagnosis Frequent falls- Primary Personal [...] 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 for referral (narrative)* Diagnostic Procedure Only (Routine) - Authorized Specialty Diagnoses / Procedures Referred By Contac t Referred To Contact US IMAGING Diagnoses Stenosis of right carotid artery Procedures US CAROTID DIONYAT Ramos Erwin MD [address] [place] [address] Us Imaging Referral ID Status Reason Start Date Expiration Date Visits Requested Visits Authorized [id number] Authorized Auto-Generat ed Referral 10/25/2021 11/24/[address] [facility] for referral (narrative)* Diagnostic Procedure Only (Routine) - Closed Specialty Diagnoses / Procedures Referred By Contac t Referred To Contact US IMAGING Diagnoses Stenosis of right carotid artery Procedures US CAROTID BILAT Cornelio Persaud MD [address] [place] [id number] Us Imaging Referral ID Status Reason Start Date Expiration Date V isits Requested Visits Authorized [id number] Closed Auto-Generate d Referral 10/12/2021 11/11/[address] [facility] for referral (narrative)* Diagnostic Procedure Only (Routine) - Authorized Specialty Diagnoses / Procedures Referred By Contac t Referred To Contact US IMAGING Diagnoses Thrombocytopenia (HCC) Procedures US ABD RT UPPER QUADRANT US ABDOMINAL REAL TIME W/IMAGE LIMITED Michael Arias, [address] [place] [address] Us Imaging Referral ID Status Reason Start Date Expiration Date Visits Requested Visits Authorized [id number] Authorized Auto-Generat ed Referral 11/11/2021 12/11/[address] [facility] for referral (narrative)* Diagnostic Procedure Only (Routine) - Closed Specialty Diagnoses / Procedures Referred By Contac t Referred To Contact US IMAGING Diagnoses Thrombocytopenia (HCC) Procedures US ABD RT UPPER QUADRANT US ABDOMINAL REAL TIME W/IMAGE LIMITED Michael Arias, [address] [place] [address] Us Imaging Referral ID Status Reason Start Date Expiration Date V isits Requested Visits Authorized [id number] Closed Auto-Generate d Referral 11/11/2021 12/11/[address] [facility] for referral (narrative)* Diagnostic Procedure Only (Routine) - Closed Specialty Diagnoses / Procedures Referred By Contac t Referred To Contact US IMAGING Diagnoses Stenosis of right carotid artery Procedures US CAROTID BILAT Ramos Erwin MD [address] [place] [address] Us Imaging Referral ID Status Reason Start Date Expiration Date V isits Requested Visits Authorized [id number] Closed Auto-Generate d Referral 10/25/2021 11/24/[address] [facility] for referral (narrative)* Diagnostic Procedure Only (Routine) - Pending Review Specialty Diagnoses / Procedures Referred By Contac t Referred To Contact US IMAGING Diagnoses Stenosis of right carotid artery Procedures US CAROTID BILAT Cornelio Persaud MD [address] [place] [address] Us Imaging Referral ID Status Reason Start Date Expiration Date Visits Requested Visits Authorized [id number] Pending Review Auto-Generat ed Referral 05/16/2022 03/01/[address] [facility] for referral (narrative)* Outpatient Procedure (Routine) - Pending Review Specialty Diagnoses / Procedures Referred By Contac t Referred To Contact [facility] [place] Diagnoses Cardiomyopathy, ischemic Procedures ECHO ECHO TTHRC R-T 2D W/WOM-MODE COMPL SPEC&[place] [address] [place] [address] [facility] [address] [address] Referral ID Status Reason Start Date Expiration Date Visits Requested Visits Authorized [id number] Pending Review Auto-Generat ed Referral 12/15/2022 12/15/2023 1 1 * Outpatient Procedure (Routine) - Closed Specialty Diagnoses / Procedures Referred By Contac t Referred To Contact [facility] [place] Diagnoses Cardiomyopathy, ischemic Procedures ECG COMPLETE ECG ROUTINE ECG W/LEAST 12 LDS W/I&[place] [address] [place] [address] [facility] [address] [place] [address] Referral ID Status Reason Start Date Expiration Date V isits Requested Visits Authorized [id number] Closed Auto-Generate d Referral 12/15/2022 12/15/[address] [facility] for referral (narrative)* Diagnostic Procedure Only (Routine) - Closed Specialty Diagnoses / Procedures Referred By Contac t Referred To Contact US IMAGING Diagnoses Screening for abdominal aortic aneurysm Procedures US SCREENING FOR AAA (2017) US ABDOMINAL AORTA REAL TIME SCREEN STUDY AAA Samm Kc DO [address] [place] [address] [place] [address] Referral ID Status Reason Start Date Expiration Date V isits Requested Visits Authorized [id number] Closed Auto-Generate d Referral 04/12/2022 05/12/[address] [facility] for referral (narrative)* Diagnostic Procedure Only (Urgent) - Closed Specialty Diagnoses / Procedures Referred By Contac t Referred To Contact XR IMAGING Diagnoses Acute pain of right shoulder Procedures XR SHOULDER GENERAL 3V OR MORE AP/TRUE AP/OTHER RIGHT RADEX SHOULDER COMPLETE MINIMUM 2 VIEWS Camille Benitez APRN.[employer] [address] [place] [address] [place] [address] Referral ID Status Reason Start Date Expiration Date V isits Requested Visits Authorized [id number] Closed Auto-Generate d Referral 12/17/2023 01/15/[address] [facility] for referral (narrative)* Diagnostic Procedure Only (Urgent) - Closed Specialty Diagnoses / Procedures Referred By Contac t Referred To Contact XR IMAGING Diagnoses Acute pain of right shoulder Procedures XR SHOULDER GENERAL 3V OR MORE AP/TRUE AP/OTHER RIGHT RADEX SHOULDER COMPLETE MINIMUM 2 VIEWS Camille Benitez APRN.[employer] [address] [place] [address] [place] [address] Referral ID Status Reason Start Date Expiration Date V isits Requested Visits Authorized [id number] Closed Auto-Generate d Referral 12/17/2023 01/15/[address] [facility] for referral (narrative)* Outpatient Procedure (Routine) - Closed Specialty Diagnoses / Procedures Referred By Contac t Referred To Contact [facility] Diagnoses Screening for colon cancer Procedures COLONOSCOPY SCREENING COLONOSCOPY FLX DX W/COLLJ SPEC WHEN PFRMD Samm Kc DO [address] [place] [address] [facility] [place] [address] [place] [address] Referral ID Status Reason Start Date Expiration Date V isits Requested Visits Authorized [id number] Closed Auto-Generate d Referral 08/09/2023 09/07/[address] [facility] for referral (narrative)* Diagnostic Procedure Only (Routine) - Closed Specialty Diagnoses / Procedures Referred By Moisés t Referred To Contact [facility] Diagnoses Encounter for screening for cardiovascular disorders Procedures NM CARDIAC PERF STRESS/PHARM MYOCARDIAL SPECT MULTIPLE STUDIES Deanne Carrasco DO [address] [place] [address] [facility] [address] [place], [place] [id number] Referral ID Status Reason Start Date Expiration Date Visits Re quested Visits Authorized [id number] Closed 09/22/2021 10/22/[address] [facility] for referral (narrative)* Outpatient Procedure (Routine) - Pending Review Specialty Diagnoses / Procedures Referred By Moisés t Referred To [facility] Diagnoses Primary hypertension 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 (HCC) Procedures ECHO ECHO TTHRC R-T 2D W/WOM-MODE COMPL SPEC&COLR D Sunshine Duckworth APRN.CNP [address] [place] [address] [facility] [place] [address] [place] [address] Referral ID Status Reason Start Date Expiration Date Visits Requested Visits Authorized [id number] Pending Review Auto-Generat ed Referral 03/19/2024 03/19/2025 1 1 * Outpatient Procedure (Routine) - New Request Specialty Diagnoses / Procedures Referred By Contac t Referred [facility] Diagnoses Primary hypertension Procedures ECG COMPLETE ECG ROUTINE ECG W/LEAST 12 LDS W/I&R Sunshine Duckworth APRN.CNP [address] [place] [address] [facility] [place] [address] [place] [address] Referral ID Status Reason Start Date Expiration Date Visits Requested Visits Authorized [id number] New Request Auto-Generat ed Referral 03/19/2024 03/19/[address] [facility] for referral (narrative)* Outpatient Procedure (Routine) - Closed Specialty Diagnoses / Procedures Referred By Moisés t Referred To Contact [facility] Diagnoses History of colonic polyps Procedures COLONOSCOPY DIAGNOSTIC COLONOSCOPY FLX DX W/COLLJ SPEC WHEN Lise Avery MD, PhD [address] [place] [address] [address] [place]tr[place] [id number] [place] [address] Referral ID Status Reason Start Date Expiration Date V isits Requested Visits Authorized [id number] Closed Auto-Generate d Referral 03/27/2024 06/10/[address] [facility] for referral (narrative)* Outpatient Procedure (Routine) - Authorized Specialty Diagnoses / Procedures Referred By Moisés cartagena Referred To Contact [facility] Diagnoses History of colonic polyps Procedures COLONOSCOPY SCREENING COLONOSCOPY FLX DX W/COLLJ SPEC WHEN Lise Avery MD, PhD [address] [address] [facility] [place] [facility] [place] [address] Referral ID Status Reason Start Date Expiration Date Visits Requested Visits Authorized [id number] Authorized Auto-Generat ed Referral 06/10/2024 1 1 [facility] for referral (narrative)* Outpatient Procedure (Routine) - Closed Specialty Diagnoses / Procedures Referred By Contac t Referred To Contact [facility] Diagnoses History of colonic polyps Procedures COLONOSCOPY SCREENING COLONOSCOPY FLX DX W/COLLJ SPEC WHEN PFJALYND Lise Corado MD, PhD [address] [place] [id number] [facility] [place] [address] [place] [address] Referral ID Status Reason Start Date Expiration Date V isits Requested Visits Authorized [id number] Closed Auto-Generate d Referral 03/27/2024 06/10/2024 1 1 [facility] for visit Narrative* Diagnostic Procedure Only (Routine) - Closed Specialty Diagnoses / Procedures Referred By Contac t Referred To Contact US IMAGING Diagnoses Stenosis of right carotid artery Procedures US CAROTID BILAT Cornelio Persaud MD [address] [place] [address] Us Imaging Referral ID Status Reason Start Date Expiration Date V isits Requested Visits Authorized [id number] Closed Auto-Generate d Referral 10/12/2021 11/11/[address] [facility] for visit Narrative* Diagnostic Procedure Only (Routine) - Closed Specialty Diagnoses / Procedures Referred By Contac t Referred To Contact US IMAGING Diagnoses Thrombocytopenia (HCC) Procedures US ABD RT UPPER QUADRANT US ABDOMINAL REAL TIME W/IMAGE LIMITED Michael Arias DO [address] [place] [address] Us Imaging Referral ID Status Reason Start Date Expiration Date V isits Requested Visits Authorized [id number] Closed Auto-Generate d Referral 11/11/2021 12/11/[address] [facility] for visit Narrative* Diagnostic Procedure Only (Routine) - Closed Specialty Diagnoses / Procedures Referred By Contac t Referred To Contact US IMAGING Diagnoses Stenosis of right carotid artery Procedures US CAROTID BILAT Ramos Erwin MD [address] [place] [id number] Us Imaging Referral ID Status Reason Start Date Expiration Date V isits Requested Visits Authorized [id number] Closed Auto-Generate d Referral 10/25/2021 11/24/[address] [facility] for visit Narrative* Diagnostic Procedure Only (Urgent) - Closed Specialty Diagnoses / Procedures Referred By Contac t Referred To Contact XR IMAGING Diagnoses Acute pain of right shoulder Procedures XR SHOULDER GENERAL 3V OR MORE AP/TRUE AP/OTHER RIGHT RADEX SHOULDER COMPLETE MINIMUM 2 VIEWS Camille Benitez, [employer] [address] [place] [address] Xr [id number] Referral ID Status Reason Start Date Expiration Date V isits Requested Visits Authorized [id number] Closed Auto-Generate d Referral 12/17/2023 01/15/[address] [facility] for visit Narrative* Outpatient Procedure (Routine) - Closed Specialty Diagnoses / Procedures Referred By Contac t Referred To Contact [facility] Diagnoses Screening for colon cancer Procedures COLONOSCOPY SCREENING COLONOSCOPY FLX DX W/COLLJ SPEC WHEN PFRMD Samm Kc DO [address] [place] [address] [facility] [place] [address] [place] [address] Referral ID Status Reason Start Date Expiration Date V isits Requested Visits Authorized [id number] Closed Auto-Generate d Referral 08/09/2023 09/07/[address] [facility] for visit Narrative* Diagnostic Procedure Only (Routine) - Closed Specialty Diagnoses / Procedures Referred By Contac t Referred To Contact [facility] Diagnoses Encounter for screening for cardiovascular disorders Procedures NM CARDIAC PERF STRESS/PHARM MYOCARDIAL SPECT MULTIPLE STUDIES Deanne Carrasco DO [address] [place] [address] [facility] [address] [place] [address] Referral ID Status Reason Start Date Expiration Date Visits Re quested Visits Authorized [id number] Closed 09/22/2021 10/22/[address] [facility] for visit Narrative* Outpatient Procedure (Routine) - Closed Specialty Diagnoses / Procedures Referred By Contac t Referred To Contact [facility] Diagnoses History of colonic polyps Procedures COLONOSCOPY DIAGNOSTIC COLONOSCOPY FLX DX W/COLLJ SPEC WHEN Lise Avery MD, PhD [address] [place] [address] [place]us[place]tran [place] [id number] [place] [address] Referral ID Status Reason Start Date Expiration Date V isits Requested Visits Authorized [id number] Closed Auto-Generate d Referral 03/27/2024 06/10/[address] [facility] for visit Narrative* Outpatient Procedure (Routine) - Closed Specialty Diagnoses / Procedures Referred By Contac t Referred To Contact [facility] Diagnoses History of colonic polyps Procedures COLONOSCOPY SCREENING COLONOSCOPY FLX DX W/COLLJ SPEC WHEN Lise Avery MD, PhD [address] [employer] [place] [phone] [facility] [place] [address] [place] [address] Referral ID Status Reason Start Date Expiration Date V isits Requested Visits Authorized [id number] Closed Auto-Generate d Referral 03/27/2024 06/10/[address] [facility] for visit Narrative* MRI/CT (Urgent) - Closed Specialty Diagnoses / Procedures Referred By Contac t Referred To Contact CT IMAGING Diagnoses Localized enlarged lymph nodes Procedures CT NECK SOFT TISSUE WO IVCON CT SOFT TISSUE NECK W/[place] [address] [place] [address] Phone: tel: fax: [facility] [place] [address] Referral ID Status Reason Start Date Expiration Date V isits Requested Visits Authorized [id number] Closed Auto-Generate d Referral 12/24/2024 01/22/[address] [facility] for visit Narrative* Auth/Cert (Routine) Specialty Diagnoses / Procedures Referred By Contac t Referred To Contact Diagnoses Localized enlarged lymph nodes Localized enlarged lymph nodes [R59.0] Procedures BX/EXC LYMPH NODE NEEDLE SUPERFICIAL BIOPSY OR EXCISION LYMPH NODES(S) NEEDLE SUPERFICIAL [facility] Radiology [address] [place] [address] Referral ID Status Reason Start Date Expiration Date Visits Re quested Visits Authorized [id number] [facility] Diagnostic Procedure Only (Urgent) - Closed Specialty Diagnoses / Procedures Referred By Contac t Referred To Contact [facility] Diagnoses Mantle cell lymphoma, unspecified body region (HCC) Lymphadenopathy, cervical Procedures NM PET/CT SKULL-THIGH INITIAL PET IMAGING CT ATTENUATION SKULL BASE MID-THIGH Amy Angeles, [employer] [address] [place] [address] Phone: tel: fax: Molecular Imaging [address] [place] [address] Phone: tel: Referral ID Status Reason Start Date Expiration Date Visits Re quested Visits Authorized [id number] Closed 01/22/2025 03/23/2025 2 2 [facility] Advance Directives No Advanced Directives Records [...] Documents on File Type Date Recorded Patient Mysql Database Developer Expl anation Advance Directive(s) 08/03/2021 6:18 PM Advance Directive(s) 07/22/2021 8:40 PM Documents on File Type Date Recorded Patient Mysql Database Developer Expl anation Advance Directive(s) 08/03/2021 6:18 PM Advance Directive(s) 07/22/2021 8:40 PM Documents on File Type Date Recorded Patient Mysql Database Developer Expl anation Advance Directive(s) 11/09/2021 11:48 PM Advance Directive(s) 08/03/2021 6:18 PM Advance Directive(s) 07/22/2021 8:40 PM Documents on File Type Date Recorded Patient Mysql Database Developer Expl anation Advance Directive(s) 11/09/2021 11:48 PM [...] MDM 60-74 MINUTES Cornelio Persaud MD [address] [facility] [place] [place] [address] Referral ID Status Reason Start Date Expiration Date Visits Requested Visits Authorized [id number] Pending Review PCP Requested Referral 10/12/2021 10/12/2022 1 1 Specialty Diagnoses / Procedures Referred By Contac t Referred To Contact US IMAGING Diagnoses Stenosis of right carotid artery Procedures US CAROTID BILAT Cornelio Persaud MD [address] [facility] [place] [phone] [facility] Referral ID Status Reason Start Date Expiration Date Visits Requested Visits Authorized [id number] Pending Review Auto-Generat ed Referral 10/12/2021 11/11/2022 1 1 Specialty Diagnoses / Procedures Referred By Contac t Referred To Contact Neurology Diagnoses MCI (mild cognitive impairment) Procedures CONSULT TO NEUROLOGY OFFICE/OUTPATIENT [facility] HIGH MDM 60-74 MINUTES Yamini SammDO maira [address] [place] [address] Referral ID Status Reason Start Date Expiration Date Visits Requested Visits Authorized [id number] Pending Review PCP Requested Referral 04/12/2022 04/12/2023 1 1 Specialty Diagnoses / Procedures Referred By Contac t Referred To Contact US IMAGING Diagnoses Screening for abdominal aortic aneurysm Procedures US SCREENING FOR AAA (2017) US ABDOMINAL AORTA REAL TIME SCREEN STUDY AAA Samm Kc DO [address] [place] [address] Us Imaging Referral ID Status Reason Start Date Expiration Date Visits Requested Visits Authorized [id number] Authorized Auto-Generat ed Referral 04/12/2022 05/12/2023 1 1 Specialty Diagnoses / Procedures Referred By Contac t Referred To Contact MR IMAGING Diagnoses Occlusion and stenosis of unspecified carotid artery Procedures MRA CAROTID WO/W IVCON MRA,NECK; W/[place] [address] [place] [address] Mr Imaging Referral ID Status Reason Start Date Expiration Date Visits Requested Visits Authorized [id number] Pending Review Auto-Generat ed Referral 05/22/2023 1 1 Specialty Diagnoses / Procedures Referred By Contac t Referred To Contact Diagnoses Type 2 diabetes mellitus with hyperglycemia, without long-term current use of insulin (HCC) Procedures CONSULT TO DIABETES EDUCATION MEDICAL NUTRITION ASSMT&IVNTJ INDIV EACH 15 [place] MEDICAL NUTRITION ASSMT&IVNTJ INDIV EACH 15 [place] MEDICAL NUTRITION ASSMT&IVNTJ INDIV EACH 15 [place] MEDICAL NUTRITION ASSMT&IVNTJ INDIV EACH 15 [place] Sedrick Roberts MD [address] [place] [address] Referral ID Status Reason Start Date Expiration Date Visits Requested Visits Authorized [id number] Pending Review PCP Requested Referral 08/02/2022 08/02/2023 1 1 Specialty Diagnoses / Procedures Referred By Annieac t Referred To Contact Diagnoses Sensorineural hearing loss (SNHL) of both ears Procedures HEARING TEST/AUDIOGRAM COMPRE AUDIOMETRY THRESHOLD EVAL SP RECOGNIJ YaminiSamm maddox, [address] [place] [address] [facility] [address] [place] [id number] Referral ID Status Reason Start Date Expiration Date Visits Requested Visits Authorized [id number] Authorized Auto-Generat ed Referral 09/22/2022 12/21/2022 1 1 Specialty Diagnoses / Procedures Referred By Contac t Referred To Contact Neurology Diagnoses Memory loss Procedures CONSULT TO NEUROLOGY OFFICE/OUTPATIENT [facility] 60-74 MINUTES Samm Kc, [address] [place] [address] Referral ID Status Reason Start Date Expiration Date Visits Requested Visits Authorized [id number] Pending Review PCP Requested Referral 09/22/2022 09/22/2023 1 1 Specialty Diagnoses / Procedures Referred By Annieac t Referred To Contact MR IMAGING Diagnoses Occlusion and stenosis of unspecified carotid artery Procedures MRA CAROTID WO/W IVCON MRA,NECK; W/[place] [address] [place] [address] Mr [id number] Referral ID Status Reason Start Date Expiration Date V isits Requested Visits Authorized [id number] Closed Auto-Generate d Referral 04/22/2022 05/22/2023 1 1 Specialty Diagnoses / Procedures Referred By Contac t Referred To Contact Endocrinology Diagnoses Type 2 diabetes mellitus with hyperglycemia, 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 indoor landscape architect insulin use (HCC) Memory loss Skin lesion Procedures CONSULT TO ENDOCRINOLOGY OFFICE/OUTPATIENT [facility] 60 MINUTES Samm Kc, [address] [place] [address] Referral ID Status Reason Start Date Expiration Date Visits Requested Visits Authorized [id number] Authorized PCP Requested Referral 09/28/2023 09/27/2024 1 1 Specialty Diagnoses / Procedures Referred By Contac t Referred To Contact Dermatology Diagnoses Type 2 diabetes mellitus with hyperglycemia, 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 indoor landscape architect insulin use (HCC) Memory loss Skin lesion Procedures CONSULT TO DERMATOLOGY Samm Kc DO [address] [place] [address] Referral ID Status Reason Start Date Expiration Date Visits Requested Visits Authorized [id number] Ref Not Required PCP Requested Referral 09/28/2023 09/27/2024 1 1 Specialty Diagnoses / Procedures Referred By Contac t Referred To Contact Dermatology Diagnoses 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 Procedures MOHS OFFICE/OUTPATIENT NEW HIGH MDM 60 MINUTES Анна Perez PA-C [address] [place] [address] Referral ID Status Reason Start Date Expiration Date Visits Requested Visits Authorized [id number] Authorized PCP Requested Referral 11/02/2023 11/01/2024 1 1 Specialty Diagnoses / Procedures Referred By Contac t Referred To Contact [facility] Diagnoses Cognitive communication deficit Procedures CONSULT TO SPEECH THERAPY OFFICE/OUTPATIENT [facility] 60 MINUTES Taiwo Lee MD [address] [place] [id number] [facility] [address] [address] Referral ID Status Reason Start Date Expiration Date Visits Requested Visits Authorized [id number] Pending Review Auto-Generat ed Referral 11/08/2023 11/07/2024 1 1 Specialty Diagnoses / Procedures Referred By Contac t Referred To Contact Diagnoses Type 2 diabetes mellitus without complication, without long-term current use of insulin (HCC) Procedures ENDOCRINOLOGY DIETITIAN VISIT (MNT) MEDICAL NUTRITION ASSMT&IVNTJ INDIV EACH 15 [place] MEDICAL NUTRITION ASSMT&IVNTJ INDIV EACH 15 [place] MEDICAL NUTRITION ASSMT&IVNTJ INDIV EACH 15 [place] MEDICAL NUTRITION ASSMT&IVNTJ INDIV EACH 15 [place] Sedrick Roberts MD [address] [place] [address] Referral ID Status Reason Start Date Expiration Date Visits Requested Visits Authorized [id number] Authorized PCP Requested Referral 01/09/2024 01/08/2025 1 [...] TST EA ADDL 30 MIN Sammi Velarde, [employer] [address] [place] [address] Referral ID Status Reason Start Date Expiration Date Visits Requested Visits Authorized [id number] New Request PCP Requested Referral 02/08/2024 05/08/2024 1 3 Specialty Diagnoses / Procedures Referred By Contac t Referred To Contact Neurology Diagnoses Dementia with behavioral disturbance (HCC) Procedures CONSULT TO NEUROLOGY OFFICE/OUTPATIENT [facility] 60 MINUTES YaminiSamm maddox DO [address] [place] [address] Referral ID Status Reason Start Date Expiration Date Visits Requested Visits Authorized [id number] Authorized PCP Requested Referral 4 04/23/2025 1 1 Specialty Diagnoses / Procedures Referred By Contac t Referred To Contact Gerontology Diagnoses Mixed Alzheimer and vascular dementia (HCC) Dementia with behavioral disturbance (HCC) Memory loss Procedures CONSULT TO GERIATRICS OFFICE/OUTPATIENT [facility] 60 MINUTES YaminiSamm maddox DO [address] [place] [address] Referral ID Status Reason Start Date Expiration Date Visits Requested Visits Authorized [id number] Authorized PCP Requested Referral 4 05/30/2025 1 1 Specialty Diagnoses / Procedures Referred By Contac t Referred To Contact Ophthalmology Diagnoses Screening for diabetic retinopathy Procedures CONSULT TO OPHTHALMOLOGY OFFICE/OUTPATIENT [facility] 60 MINUTES YaminiSamm maddox, [address] [place] [address] Referral ID Status Reason Start Date Expiration Date Visits Requested Visits Authorized [id number] Authorized PCP Requested Referral 07/08/2024 07/08/2025 1 [...] or prosecute any alcohol or drug abuse patient.[facility] the event this information is protected by the Federal Confidentiality of Alcohol and Drug Abuse Patient Records regulations: The Federal rules restrict any use of the information to criminally investigate or prosecute any alcohol or drug abuse patient.[facility] HospitalIn the event this information is protected by the Federal Confidentiality of Alcohol and Drug Abuse Patient Records regulations: The Federal rules restrict any use of the information to criminally investigate or prosecute any alcohol or drug abuse patient.[facility] HospitalIn the event this information is protected by the Federal Confidentiality of Alcohol and Drug Abuse Patient Records regulations: The Federal rules restrict any use of the information to criminally investigate or prosecute any alcohol or drug abuse patient.[facility] HospitalIn the event this information is protected by the Federal Confidentiality of Alcohol and Drug Abuse Patient Records regulations: The Federal rules restrict any use of the information to criminally investigate or prosecute any alcohol or drug abuse patient.[facility] HospitalIn the event this information is protected by the Federal Confidentiality of Alcohol and Drug Abuse Patient Records regulations: The Federal rules restrict any use of the information to criminally investigate or prosecute any alcohol or drug abuse patient.[facility] HospitalIn the event this information is protected by the Federal Confidentiality of Alcohol and Drug Abuse Patient Records regulations: The Federal rules restrict any use of the information to criminally investigate or prosecute any alcohol or drug abuse patient.[facility] HospitalIn the event this information is protected by the Federal Confidentiality of Alcohol and Drug Abuse Patient Records regulations: The Federal rules restrict any use of the information to criminally investigate or prosecute any alcohol or drug abuse patient.[facility] HospitalIn the event this information is protected by the Federal Confidentiality of Alcohol and Drug Abuse Patient Records regulations: The Federal rules restrict any use of the information to criminally investigate or prosecute any alcohol or drug abuse patient.[facility] HospitalIn the event this information is protected by the Federal Confidentiality of Alcohol and Drug Abuse Patient Records regulations: The Federal rules restrict any use of the information to criminally investigate or prosecute any alcohol or drug abuse patient.[facility] HospitalIn the event this information is protected by the Federal Confidentiality of Alcohol and Drug Abuse Patient Records regulations: The Federal rules restrict any use of the information to criminally investigate or prosecute any alcohol or drug abuse patient.[facility] HospitalIn the event this information is protected by the Federal Confidentiality of Alcohol and Drug Abuse Patient Records regulations: The Federal rules restrict any use of the information to criminally investigate or prosecute any alcohol or drug abuse patient.[facility] HospitalIn the event this information is protected by the Federal Confidentiality of Alcohol and Drug Abuse Patient Records regulations: The Federal rules restrict any use of the information to criminally investigate or prosecute any alcohol or drug abuse patient.[facility] HospitalIn the event this information is protected by the Federal Confidentiality of Alcohol and Drug Abuse Patient Records regulations: The Federal rules restrict any use of the information to criminally investigate or prosecute any alcohol or drug abuse patient.[facility] HospitalIn the event this information is protected by the Federal Confidentiality of Alcohol and Drug Abuse Patient Records regulations: The Federal rules restrict any use of the information to criminally investigate or prosecute any alcohol or drug abuse patient.[facility] HospitalIn the event this information is protected by the Federal Confidentiality of Alcohol and Drug Abuse Patient Records regulations: The Federal rules restrict any use of the information to criminally investigate or prosecute any alcohol or drug abuse patient.[facility] HospitalIn the event this information is protected by the Federal Confidentiality of Alcohol and Drug Abuse Patient Records regulations: The Federal rules restrict any use of the information to criminally investigate or prosecute any alcohol or drug abuse patient.[facility] HospitalIn the event this information is protected by the Federal Confidentiality of Alcohol and Drug Abuse Patient Records regulations: The Federal rules restrict any use of the information to criminally investigate or prosecute any alcohol or drug abuse patient.[facility] HospitalIn the event this information is protected by the Federal Confidentiality of Alcohol and Drug Abuse Patient Records regulations: The Federal rules restrict any use of the information to criminally investigate or prosecute any alcohol or drug abuse patient.[facility] HospitalIn the event this information is protected by the Federal Confidentiality of Alcohol and Drug Abuse Patient Records regulations: The Federal rules restrict any use of the information to criminally investigate or prosecute any alcohol or drug abuse patient.[facility] HospitalIn the event this information is protected by the Federal Confidentiality of Alcohol and Drug Abuse Patient Records regulations: The Federal rules restrict any use of the information to criminally investigate or prosecute any alcohol or drug abuse patient.[facility] HospitalIn the event this information is protected by the Federal Confidentiality of Alcohol and Drug Abuse Patient Records regulations: The Federal rules restrict any use of the information to criminally investigate or prosecute any alcohol or drug abuse patient.[facility] HospitalIn the event this information is protected by the Federal Confidentiality of Alcohol and Drug Abuse Patient Records regulations: The Federal rules restrict any use of the information to criminally investigate or prosecute any alcohol or drug abuse patient.[facility] HospitalIn the event this information is protected by the Federal Confidentiality of Alcohol and Drug Abuse Patient Records regulations: The Federal rules restrict any use of the information to criminally investigate or prosecute any alcohol or drug abuse patient.[facility] HospitalIn the event this information is protected by the Federal Confidentiality of Alcohol and Drug Abuse Patient Records regulations: The Federal rules restrict any use of the information to criminally investigate or prosecute any alcohol or drug abuse patient.[facility] HospitalIn the event this information is protected by the Federal Confidentiality of Alcohol and Drug Abuse Patient Records regulations: The Federal rules restrict any use of the information to criminally investigate or prosecute any alcohol or drug abuse patient.[facility] HospitalIn the event this information is protected by the Federal Confidentiality of Alcohol and Drug Abuse Patient Records regulations: The Federal rules restrict any use of the information to criminally investigate or prosecute any alcohol or drug abuse patient.[facility] HospitalIn the event this information is protected by the Federal Confidentiality of Alcohol and Drug Abuse Patient Records regulations: The Federal rules restrict any use of the information to criminally investigate or prosecute any alcohol or drug abuse patient.[facility] HospitalIn the event this information is protected by the Federal Confidentiality of Alcohol and Drug Abuse Patient Records regulations: The Federal rules restrict any use of the information to criminally investigate or prosecute any alcohol or drug abuse patient.[facility] HospitalIn the event this information is protected by the Federal Confidentiality of Alcohol and Drug Abuse Patient Records regulations: The Federal rules restrict any use of the information to criminally investigate or prosecute any alcohol or drug abuse patient.[facility] HospitalIn the event this information is protected by the Federal Confidentiality of Alcohol and Drug Abuse Patient Records regulations: The Federal rules restrict any use of the information to criminally investigate or prosecute any alcohol or drug abuse patient.[facility] HospitalIn the event this information is protected by the Federal Confidentiality of Alcohol and Drug Abuse Patient Records regulations: The Federal rules restrict any use of the information to criminally investigate or prosecute any alcohol or drug abuse patient.[facility] HospitalIn the event this information is protected by the Federal Confidentiality of Alcohol and Drug Abuse Patient Records regulations: The Federal rules restrict any use of the information to criminally investigate or prosecute any alcohol or drug abuse patient.[facility] HospitalIn the event this information is protected by the Federal Confidentiality of Alcohol and Drug Abuse Patient Records regulations: The Federal rules restrict any use of the information to criminally investigate or prosecute any alcohol or drug abuse patient.[facility] HospitalIn the event this information is protected by the Federal Confidentiality of Alcohol and Drug Abuse Patient Records regulations: The Federal rules restrict any use of the information to criminally investigate or prosecute any alcohol or drug abuse patient.[facility] HospitalIn the event this information is protected by the Federal Confidentiality of Alcohol and Drug Abuse Patient Records regulations: The Federal rules restrict any use of the information to criminally investigate or prosecute any alcohol or drug abuse patient.[facility] HospitalIn the event this information is protected by the Federal Confidentiality of Alcohol and Drug Abuse Patient Records regulations: The Federal rules restrict any use of the information to criminally investigate or prosecute any alcohol or drug abuse patient.[facility] HospitalIn the event this information is protected by the Federal Confidentiality of Alcohol and Drug Abuse Patient Records regulations: The Federal rules restrict any use of the information to criminally investigate or prosecute any alcohol or drug abuse patient.[facility] HospitalIn the event this information is protected by the Federal Confidentiality of Alcohol and Drug Abuse Patient Records regulations: The Federal rules restrict any use of the information to criminally investigate or prosecute any alcohol or drug abuse patient.[facility] HospitalIn the event this information is protected by the Federal Confidentiality of Alcohol and Drug Abuse Patient Records regulations: The Federal rules restrict any use of the information to criminally investigate or prosecute any alcohol or drug abuse patient.[facility] HospitalIn the event this information is protected by the Federal Confidentiality of Alcohol and Drug Abuse Patient Records regulations: The Federal rules restrict any use of the information to criminally investigate or prosecute any alcohol or drug abuse patient.[facility] HospitalIn the event this information is protected by the Federal Confidentiality of Alcohol and Drug Abuse Patient Records regulations: The Federal rules restrict any use of the information to criminally investigate or prosecute any alcohol or drug abuse patient.[facility] HospitalIn the event this information is protected by the Federal Confidentiality of Alcohol and Drug Abuse Patient Records regulations: The Federal rules restrict any use of the information to criminally investigate or prosecute any alcohol or drug abuse patient.[facility] HospitalIn the event this information is protected by the Federal Confidentiality of Alcohol and Drug Abuse Patient Records regulations: The Federal rules restrict any use of the information to criminally investigate or prosecute any alcohol or drug abuse patient.[facility] HospitalIn the event this information is protected by the Federal Confidentiality of Alcohol and Drug Abuse Patient Records regulations: The Federal rules restrict any use of the information to criminally investigate or prosecute any alcohol or drug abuse patient.[facility] HospitalIn the event this information is protected by the Federal Confidentiality of Alcohol and Drug Abuse Patient Records regulations: The Federal rules restrict any use of the information to criminally investigate or prosecute any alcohol or drug abuse patient.[facility] HospitalIn the event this information is protected by the Federal Confidentiality of Alcohol and Drug Abuse Patient Records regulations: The Federal rules restrict any use of the information to criminally investigate or prosecute any alcohol or drug abuse patient.[facility] HospitalIn the event this information is protected by the Federal Confidentiality of Alcohol and Drug Abuse Patient Records regulations: The Federal rules restrict any use of the information to criminally investigate or prosecute any alcohol or drug abuse patient.[facility] HospitalIn the event this information is protected by the Federal Confidentiality of Alcohol and Drug Abuse Patient Records regulations: The Federal rules restrict any use of the information to criminally investigate or prosecute any alcohol or drug abuse patient.[facility] HospitalIn the event this information is protected by the Federal Confidentiality of Alcohol and Drug Abuse Patient Records regulations: The Federal rules restrict any use of the information to criminally investigate or prosecute any alcohol or drug abuse patient.[facility] HospitalIn the event this information is protected by the Federal Confidentiality of Alcohol and Drug Abuse Patient Records regulations: The Federal rules restrict any use of the information to criminally investigate or prosecute any alcohol or drug abuse patient.[facility] HospitalIn the event this information is protected by the Federal Confidentiality of Alcohol and Drug Abuse Patient Records regulations: The Federal rules restrict any use of the information to criminally investigate or prosecute any alcohol or drug abuse patient.[facility] HospitalIn the event this information is protected by the Federal Confidentiality of Alcohol and Drug Abuse Patient Records regulations: The Federal rules restrict any use of the information to criminally investigate or prosecute any alcohol or drug abuse patient.[facility] HospitalIn the event this information is protected by the Federal Confidentiality of Alcohol and Drug Abuse Patient Records regulations: The Federal rules restrict any use of the information to criminally investigate or prosecute any alcohol or drug abuse patient.[facility] HospitalIn the event this information is protected by the Federal Confidentiality of Alcohol and Drug Abuse Patient Records regulations: The Federal rules restrict any use of the information to criminally investigate or prosecute any alcohol or drug abuse patient.[facility] HospitalIn the event this information is protected by the Federal Confidentiality of Alcohol and Drug Abuse Patient Records regulations: The Federal rules restrict any use of the information to criminally investigate or prosecute any alcohol or drug abuse patient.[facility] HospitalIn the event this information is protected by the Federal Confidentiality of Alcohol and Drug Abuse Patient Records regulations: The Federal rules restrict any use of the information to criminally investigate or prosecute any alcohol or drug abuse patient.[facility] HospitalIn the event this information is protected by the Federal Confidentiality of Alcohol and Drug Abuse Patient Records regulations: The Federal rules restrict any use of the information to criminally investigate or prosecute any alcohol or drug abuse patient.[facility] HospitalIn the event this information is protected by the Federal Confidentiality of Alcohol and Drug Abuse Patient Records regulations: The Federal rules restrict any use of the information to criminally investigate or prosecute any alcohol or drug abuse patient.[facility] HospitalIn the event this information is protected by the Federal Confidentiality of Alcohol and Drug Abuse Patient Records regulations: The Federal rules restrict any use of the information to criminally investigate or prosecute any alcohol or drug abuse patient.[facility] HospitalIn the event this information is protected by the Federal Confidentiality of Alcohol and Drug Abuse Patient Records regulations: The Federal rules restrict any use of the information to criminally investigate or prosecute any alcohol or drug abuse patient.[facility] HospitalIn the event this information is protected by the Federal Confidentiality of Alcohol and Drug Abuse Patient Records regulations: The Federal rules restrict any use of the information to criminally investigate or prosecute any alcohol or drug abuse patient.[facility] HospitalIn the event this information is protected by the Federal Confidentiality of Alcohol and Drug Abuse Patient Records regulations: The Federal rules restrict any use of the information to criminally investigate or prosecute any alcohol or drug abuse patient.[facility] HospitalIn the event this information is protected by the Federal Confidentiality of Alcohol and Drug Abuse Patient Records regulations: The Federal rules restrict any use of the information to criminally investigate or prosecute any alcohol or drug abuse patient.[facility] HospitalIn the event this information is protected by the Federal Confidentiality of Alcohol and Drug Abuse Patient Records regulations: The Federal rules restrict any use of the information to criminally investigate or prosecute any alcohol or drug abuse patient.[facility]In the event this information is protected by the Federal Confidentiality of Alcohol and Drug Abuse Patient Records regulations: The Federal rules restrict any use of the information to criminally investigate or prosecute any alcohol or drug abuse patient.[facility] HospitalIn the event this information is protected by the Federal Confidentiality of Alcohol and Drug Abuse Patient Records regulations: The Federal rules restrict any use of the information to criminally investigate or prosecute any alcohol or drug abuse patient.[facility] HospitalIn the event this information is protected by the Federal Confidentiality of Alcohol and Drug Abuse Patient Records regulations: The Federal rules restrict any use of the information to criminally investigate or prosecute any alcohol or drug abuse patient.[facility] HospitalIn the event this information is protected by the Federal Confidentiality of Alcohol and Drug Abuse Patient Records regulations: The Federal rules restrict any use of the information to criminally investigate or prosecute any alcohol or drug abuse patient.[facility] HospitalIn the event this information is protected by the Federal Confidentiality of Alcohol and Drug Abuse Patient Records regulations: The Federal rules restrict any use of the information to criminally investigate or prosecute any alcohol or drug abuse patient.[facility] HospitalIn the event this information is protected by the Federal Confidentiality of Alcohol and Drug Abuse Patient Records regulations: The Federal rules restrict any use of the information to criminally investigate or prosecute any alcohol or drug abuse patient.[facility] HospitalIn the event this information is protected by the Federal Confidentiality of Alcohol and Drug Abuse Patient Records regulations: The Federal rules restrict any use of the information to criminally investigate or prosecute any alcohol or drug abuse patient.[facility] HospitalIn the event this information is protected by the Federal Confidentiality of Alcohol and Drug Abuse Patient Records regulations: The Federal rules restrict any use of the information to criminally investigate or prosecute any alcohol or drug abuse patient.[facility] HospitalIn the event this information is protected by the Federal Confidentiality of Alcohol and Drug Abuse Patient Records regulations: The Federal rules restrict any use of the information to criminally investigate or prosecute any alcohol or drug abuse patient.[facility] HospitalIn the event this information is protected by the Federal Confidentiality of Alcohol and Drug Abuse Patient Records regulations: The Federal rules restrict any use of the information to criminally investigate or prosecute any alcohol or drug abuse patient.[facility] HospitalIn the event this information is protected by the Federal Confidentiality of Alcohol and Drug Abuse Patient Records regulations: The Federal rules restrict any use of the information to criminally investigate or prosecute any alcohol or drug abuse patient.[facility] HospitalIn the event this information is protected by the Federal Confidentiality of Alcohol and Drug Abuse Patient Records regulations: The Federal rules restrict any use of the information to criminally investigate or prosecute any alcohol or drug abuse patient.[facility] HospitalIn the event this information is protected by the Federal Confidentiality of Alcohol and Drug Abuse Patient Records regulations: The Federal rules restrict any use of the information to criminally investigate or prosecute any alcohol or drug abuse patient.[facility] HospitalIn the event this information is protected by the Federal Confidentiality of Alcohol and Drug Abuse Patient Records regulations: The Federal rules restrict any use of the information to criminally investigate or prosecute any alcohol or drug abuse patient.[facility] HospitalIn the event this information is protected by the Federal Confidentiality of Alcohol and Drug Abuse Patient Records regulations: The Federal rules restrict any use of the information to criminally investigate or prosecute any alcohol or drug abuse patient.[facility] HospitalIn the event this information is protected by the Federal Confidentiality of Alcohol and Drug Abuse Patient Records regulations: The Federal rules restrict any use of the information to criminally investigate or prosecute any alcohol or drug abuse patient.[facility] HospitalIn the event this information is protected by the Federal Confidentiality of Alcohol and Drug Abuse Patient Records regulations: The Federal rules restrict any use of the information to criminally investigate or prosecute any alcohol or drug abuse patient.[facility] HospitalIn the event this information is protected by the Federal Confidentiality of Alcohol and Drug Abuse Patient Records regulations: The Federal rules restrict any use of the information to criminally investigate or prosecute any alcohol or drug abuse patient.[facility] HospitalIn the event this information is protected by the Federal Confidentiality of Alcohol and Drug Abuse Patient Records regulations: The Federal rules restrict any use of the information to criminally investigate or prosecute any alcohol or drug abuse patient.[facility] HospitalIn the event this information is protected by the Federal Confidentiality of Alcohol and Drug Abuse Patient Records regulations: The Federal rules restrict any use of the information to criminally investigate or prosecute any alcohol or drug abuse patient.[facility] HospitalIn the event this information is protected by the Federal Confidentiality of Alcohol and Drug Abuse Patient Records regulations: The Federal rules restrict any use of the information to criminally investigate or prosecute any alcohol or drug abuse patient.[facility] HospitalIn the event this information is protected by the Federal Confidentiality of Alcohol and Drug Abuse Patient Records regulations: The Federal rules restrict any use of the information to criminally investigate or prosecute any alcohol or drug abuse patient.[facility] HospitalIn the event this information is protected by the Federal Confidentiality of Alcohol and Drug Abuse Patient Records regulations: The Federal rules restrict any use of the information to criminally investigate or prosecute any alcohol or drug abuse patient.[facility] HospitalIn the event this information is protected by the Federal Confidentiality of Alcohol and Drug Abuse Patient Records regulations: The Federal rules restrict any use of the information to criminally investigate or prosecute any alcohol or drug abuse patient.[facility] HospitalIn the event this information is protected by the Federal Confidentiality of Alcohol and Drug Abuse Patient Records regulations: The Federal rules restrict any use of the information to criminally investigate or prosecute any alcohol or drug abuse patient.[facility] HospitalIn the event this information is protected by the Federal Confidentiality of Alcohol and Drug Abuse Patient Records regulations: The Federal rules restrict any use of the information to criminally investigate or prosecute any alcohol or drug abuse patient.[facility] HospitalIn the event this information is protected by the Federal Confidentiality of Alcohol and Drug Abuse Patient Records regulations: The Federal rules restrict any use of the information to criminally investigate or prosecute any alcohol or drug abuse patient.[facility] HospitalIn the event this information is protected by the Federal Confidentiality of Alcohol and Drug Abuse Patient Records regulations: The Federal rules restrict any use of the information to criminally investigate or prosecute any alcohol or drug abuse patient.[facility] HospitalIn the event this information is protected by the Federal Confidentiality of Alcohol and Drug Abuse Patient Records regulations: The Federal rules restrict any use of the information to criminally investigate or prosecute any alcohol or drug abuse patient.[facility] HospitalIn the event this information is protected by the Federal Confidentiality of Alcohol and Drug Abuse Patient Records regulations: The Federal rules restrict any use of the information to criminally investigate or prosecute any alcohol or drug abuse patient.[facility] HospitalIn the event this information is protected by the Federal Confidentiality of Alcohol and Drug Abuse Patient Records regulations: The Federal rules restrict any use of the information to criminally investigate or prosecute any alcohol or drug abuse patient.[facility] HospitalIn the event this information is protected by the Federal Confidentiality of Alcohol and Drug Abuse Patient Records regulations: The Federal rules restrict any use of the information to criminally investigate or prosecute any alcohol or drug abuse patient.[facility] HospitalIn the event this information is protected by the Federal Confidentiality of Alcohol and Drug Abuse Patient Records regulations: The Federal rules restrict any use of the information to criminally investigate or prosecute any alcohol or drug abuse patient.[facility] HospitalIn the event this information is protected by the Federal Confidentiality of Alcohol and Drug Abuse Patient Records regulations: The Federal rules restrict any use of the information to criminally investigate or prosecute any alcohol or drug abuse patient.[facility] HospitalIn the event this information is protected by the Federal Confidentiality of Alcohol and Drug Abuse Patient Records regulations: The Federal rules restrict any use of the information to criminally investigate or prosecute any alcohol or drug abuse patient.[facility] HospitalIn the event this information is protected by the Federal Confidentiality of Alcohol and Drug Abuse Patient Records regulations: The Federal rules restrict any use of the information to criminally investigate or prosecute any alcohol or drug abuse patient.[facility] HospitalIn the event this information is protected by the Federal Confidentiality of Alcohol and Drug Abuse Patient Records regulations: The Federal rules restrict any use of the information to criminally investigate or prosecute any alcohol or drug abuse patient.[facility] HospitalIn the event this information is protected by the Federal Confidentiality of Alcohol and Drug Abuse Patient Records regulations: The Federal rules restrict any use of the information to criminally investigate or prosecute any alcohol or drug abuse patient.[facility] HospitalIn the event this information is protected by the Federal Confidentiality of Alcohol and Drug Abuse Patient Records regulations: The Federal rules restrict any use of the information to criminally investigate or prosecute any alcohol or drug abuse patient.[facility] HospitalIn the event this information is protected by the Federal Confidentiality of Alcohol and Drug Abuse Patient Records regulations: The Federal rules restrict any use of the information to criminally investigate or prosecute any alcohol or drug abuse patient.[facility] HospitalIn the event this information is protected by the Federal Confidentiality of Alcohol and Drug Abuse Patient Records regulations: The Federal rules restrict any use of the information to criminally investigate or prosecute any alcohol or drug abuse patient.[facility] HospitalIn the event this information is protected by the Federal Confidentiality of Alcohol and Drug Abuse Patient Records regulations: The Federal rules restrict any use of the information to criminally investigate or prosecute any alcohol or drug abuse patient.[facility] HospitalIn the event this information is protected by the Federal Confidentiality of Alcohol and Drug Abuse Patient Records regulations: The Federal rules restrict any use of the information to criminally investigate or prosecute any alcohol or drug abuse patient.[facility] HospitalIn the event this information is protected by the Federal Confidentiality of Alcohol and Drug Abuse Patient Records regulations: The Federal rules restrict any use of the information to criminally investigate or prosecute any alcohol or drug abuse patient.[facility] HospitalIn the event this information is protected by the Federal Confidentiality of Alcohol and Drug Abuse Patient Records regulations: The Federal rules restrict any use of the information to criminally investigate or prosecute any alcohol or drug abuse patient.[facility] HospitalIn the event this information is protected by the Federal Confidentiality of Alcohol and Drug Abuse Patient Records regulations: The Federal rules restrict any use of the information to criminally investigate or prosecute any alcohol or drug abuse patient.[facility] HospitalIn the event this information is protected by the Federal Confidentiality of Alcohol and Drug Abuse Patient Records regulations: The Federal rules restrict any use of the information to criminally investigate or prosecute any alcohol or drug abuse patient.[facility] HospitalIn the event this information is protected by the Federal Confidentiality of Alcohol and Drug Abuse Patient Records regulations: The Federal rules restrict any use of the information to criminally investigate or prosecute any alcohol or drug abuse patient.[facility] HospitalIn the event this information is protected by the Federal Confidentiality of Alcohol and Drug Abuse Patient Records regulations: The Federal rules restrict any use of the information to criminally investigate or prosecute any alcohol or drug abuse patient.[facility] HospitalIn the event this information is protected by the Federal Confidentiality of Alcohol and Drug Abuse Patient Records regulations: The Federal rules restrict any use of the information to criminally investigate or prosecute any alcohol or drug abuse patient.[facility] HospitalIn the event this information is protected by the Federal Confidentiality of Alcohol and Drug Abuse Patient Records regulations: The Federal rules restrict any use of the information to criminally investigate or prosecute any alcohol or drug abuse patient.[facility] HospitalIn the event this information is protected by the Federal Confidentiality of Alcohol and Drug Abuse Patient Records regulations: The Federal rules restrict any use of the information to criminally investigate or prosecute any alcohol or drug abuse patient.[facility] HospitalIn the event this information is protected by the Federal Confidentiality of Alcohol and Drug Abuse Patient Records regulations: The Federal rules restrict any use of the information to criminally investigate or prosecute any alcohol or drug abuse patient.[facility] HospitalIn the event this information is protected by the Federal Confidentiality of Alcohol and Drug Abuse Patient Records regulations: The Federal rules restrict any use of the information to criminally investigate or prosecute any alcohol or drug abuse patient.[facility] HospitalIn the event this information is protected by the Federal Confidentiality of Alcohol and Drug Abuse Patient Records regulations: The Federal rules restrict any use of the information to criminally investigate or prosecute any alcohol or drug abuse patient.[facility]In the event this information is protected by the Federal Confidentiality of Alcohol and Drug Abuse Patient Records regulations: The Federal rules restrict any use of the information to criminally investigate or prosecute any alcohol or drug abuse patient.[facility] HospitalIn the event this information is protected by the Federal Confidentiality of Alcohol and Drug Abuse Patient Records regulations: The Federal rules restrict any use of the information to criminally investigate or prosecute any alcohol or drug abuse patient.[facility]In the event this information is protected by the Federal Confidentiality of Alcohol and Drug Abuse Patient Records regulations: The Federal rules restrict any use of the information to criminally investigate or prosecute any alcohol or drug abuse patient.[facility]In the event this information is protected by the Federal Confidentiality of Alcohol and Drug Abuse Patient Records regulations: The Federal rules restrict any use of the information to criminally investigate or prosecute any alcohol or drug abuse patient.[facility]In the event this information is protected by the Federal Confidentiality of Alcohol and Drug Abuse Patient Records regulations: The Federal rules restrict any use of the information to criminally investigate or prosecute any alcohol or drug abuse patient.[facility]In the event this information is protected by the Federal Confidentiality of Alcohol and Drug Abuse Patient Records regulations: The Federal rules restrict any use of the information to criminally investigate or prosecute any alcohol or drug abuse patient.[facility]In the event this information is protected by the Federal Confidentiality of Alcohol and Drug Abuse Patient Records regulations: The Federal rules restrict any use of the information to criminally investigate or prosecute any alcohol or drug abuse patient.[facility] HospitalIn the event this information is protected by the Federal Confidentiality of Alcohol and Drug Abuse Patient Records regulations: The Federal rules restrict any use of the information to criminally investigate or prosecute any alcohol or drug abuse patient.[facility]In the event this information is protected by the Federal Confidentiality of Alcohol and Drug Abuse Patient Records regulations: The Federal rules restrict any use of the information to criminally investigate or prosecute any alcohol or drug abuse patient.[facility]In the event this information is protected by the Federal Confidentiality of Alcohol and Drug Abuse Patient Records regulations: The Federal rules restrict any use of the information to criminally investigate or prosecute any alcohol or drug abuse patient.[facility] HospitalIn the event this information is protected by the Federal Confidentiality of Alcohol and Drug Abuse Patient Records regulations: The Federal rules restrict any use of the information to criminally investigate or prosecute any alcohol or drug abuse patient.[facility]In the event this information is protected by the Federal Confidentiality of Alcohol and Drug Abuse Patient Records regulations: The Federal rules restrict any use of the information to criminally investigate or prosecute any alcohol or drug abuse patient.[facility]In the event this information is protected by the Federal Confidentiality of Alcohol and Drug Abuse Patient Records regulations: The Federal rules restrict any use of the information to criminally investigate or prosecute any alcohol or drug abuse patient.[facility]In the event this information is protected by the Federal Confidentiality of Alcohol and Drug Abuse Patient Records regulations: The Federal rules restrict any use of the information to criminally investigate or prosecute any alcohol or drug abuse patient.[facility] HospitalIn the event this information is protected by the Federal Confidentiality of Alcohol and Drug Abuse Patient Records regulations: The Federal rules restrict any use of the information to criminally investigate or prosecute any alcohol or drug abuse patient.[facility]In the event this information is protected by the Federal Confidentiality of Alcohol and Drug Abuse Patient Records regulations: The Federal rules restrict any use of the information to criminally investigate or prosecute any alcohol or drug abuse patient.[facility]In the event this information is protected by the Federal Confidentiality of Alcohol and Drug Abuse Patient Records regulations: The Federal rules restrict any use of the information to criminally investigate or prosecute any alcohol or drug abuse patient.[facility]In the event this information is protected by the Federal Confidentiality of Alcohol and Drug Abuse Patient Records regulations: The Federal rules restrict any use of the information to criminally investigate or prosecute any alcohol or drug abuse patient.[facility]In the event this information is protected by the Federal Confidentiality of Alcohol and Drug Abuse Patient Records regulations: The Federal rules restrict any use of the information to criminally investigate or prosecute any alcohol or drug abuse patient.[facility]In the event this information is protected by the Federal Confidentiality of Alcohol and Drug Abuse Patient Records regulations: The Federal rules restrict any use of the information to criminally investigate or prosecute any alcohol or drug abuse patient.[facility]In the event this information is protected by the Federal Confidentiality of Alcohol and Drug Abuse Patient Records regulations: The Federal rules restrict any use of the information to criminally investigate or prosecute any alcohol or drug abuse patient.[facility]In the event this information is protected by the Federal Confidentiality of Alcohol and Drug Abuse Patient Records regulations: The Federal rules restrict any use of the information to criminally investigate or prosecute any alcohol or drug abuse patient.[facility]In the event this information is protected by the Federal Confidentiality of Alcohol and Drug Abuse Patient Records regulations: The Federal rules restrict any use of the information to criminally investigate or prosecute any alcohol or drug abuse patient.[facility]In the event this information is protected by the Federal Confidentiality of Alcohol and Drug Abuse Patient Records regulations: The Federal rules restrict any use of the information to criminally investigate or prosecute any alcohol or drug abuse patient.[facility]In the event this information is protected by the Federal Confidentiality of Alcohol and Drug Abuse Patient Records regulations: The Federal rules restrict any use of the information to criminally investigate or prosecute any alcohol or drug abuse patient.[facility]In the event this information is protected by the Federal Confidentiality of Alcohol and Drug Abuse Patient Records regulations: The Federal rules restrict any use of the information to criminally investigate or prosecute any alcohol or drug abuse patient.[facility]In the event this information is protected by the Federal Confidentiality of Alcohol and Drug Abuse Patient Records regulations: The Federal rules restrict any use of the information to criminally investigate or prosecute any alcohol or drug abuse patient.[facility]In the event this information is protected by the Federal Confidentiality of Alcohol and Drug Abuse Patient Records regulations: The Federal rules restrict any use of the information to criminally investigate or prosecute any alcohol or drug abuse patient.[facility]In the event this information is protected by the Federal Confidentiality of Alcohol and Drug Abuse Patient Records regulations: The Federal rules restrict any use of the information to criminally investigate or prosecute any alcohol or drug abuse patient.[facility] HospitalIn the event this information is protected by the Federal Confidentiality of Alcohol and Drug Abuse Patient Records regulations: The Federal rules restrict any use of the information to criminally investigate or prosecute any alcohol or drug abuse patient.[facility] HospitalIn the event this information is protected by the Federal Confidentiality of Alcohol and Drug Abuse Patient Records regulations: The Federal rules restrict any use of the information to criminally investigate or prosecute any alcohol or drug abuse patient.[facility] HospitalIn the event this information is protected by the Federal Confidentiality of Alcohol and Drug Abuse Patient Records regulations: The Federal rules restrict any use of the information to criminally investigate or prosecute any alcohol or drug abuse patient.[facility] HospitalIn the event this information is protected by the Federal Confidentiality of Alcohol and Drug Abuse Patient Records regulations: The Federal rules restrict any use of the information to criminally investigate or prosecute any alcohol or drug abuse patient.[facility] HospitalIn the event this information is protected by the Federal Confidentiality of Alcohol and Drug Abuse Patient Records regulations: The Federal rules restrict any use of the information to criminally investigate or prosecute any alcohol or drug abuse patient.[facility] HospitalIn the event this information is protected by the Federal Confidentiality of Alcohol and Drug Abuse Patient Records regulations: The Federal rules restrict any use of the information to criminally investigate or prosecute any alcohol or drug abuse patient.[facility] HospitalIn the event this information is protected by the Federal Confidentiality of Alcohol and Drug Abuse Patient Records regulations: The Federal rules restrict any use of the information to criminally investigate or prosecute any alcohol or drug abuse patient.[facility] HospitalIn the event this information is protected by the Federal Confidentiality of Alcohol and Drug Abuse Patient Records regulations: The Federal rules restrict any use of the information to criminally investigate or prosecute any alcohol or drug abuse patient.[facility] HospitalIn the event this information is protected by the Federal Confidentiality of Alcohol and Drug Abuse Patient Records regulations: The Federal rules restrict any use of the information to criminally investigate or prosecute any alcohol or drug abuse patient.[facility] HospitalIn the event this information is protected by the Federal Confidentiality of Alcohol and Drug Abuse Patient Records regulations: The Federal rules restrict any use of the information to criminally investigate or prosecute any alcohol or drug abuse patient.[facility] HospitalIn the event this information is protected by the Federal Confidentiality of Alcohol and Drug Abuse Patient Records regulations: The Federal rules restrict any use of the information to criminally investigate or prosecute any alcohol or drug abuse patient.[facility] HospitalIn the event this information is protected by the Federal Confidentiality of Alcohol and Drug Abuse Patient Records regulations: The Federal rules restrict any use of the information to criminally investigate or prosecute any alcohol or drug abuse patient.[facility] Reason for Visit (unrecogniz ed section and content) Reason Onset Date Comments [facility] Follow Up 08/11 TCM Reason Comments Results Reason Comments Consult Carotid Stenosis Reason Comments New Patient Specialty Diagnoses / Procedures Referred By Moisés t Referred To Contact Neurosurgery Diagnoses Stenosis of right carotid artery Procedures CONSULT TO NEUROSURGERY OFFICE/OUTPATIENT NEW HIGH MDM 60-74 MINUTES Cornelio Persaud MD [address] [place] [address] Referral ID Status Reason Start Date Expiration Date Visits Requested Visits Authorized [id number] Pending Review PCP Requested Referral 10/12/2021 10/12/2022 [...] Loss Specialty Diagnoses / Procedures Referred By Moisés t Referred To Contact Diagnoses Sensorineural hearing loss (SNHL) of both ears Procedures HEARING TEST/AUDIOGRAM COMPRE AUDIOMETRY THRESHOLD EVAL SP RECOGNIJ Samm Kc DO [address] [place] [address] [facility] [address] [place] [address] Referral ID Status Reason Start Date Expiration Date V isits Requested Visits Authorized [id number] Closed Auto-Generate d Referral 09/22/2022 12/21/2022 1 1 Reason Onset Date Comments Population Health Navigation Outreach 11/13/2022 [employer] Care Gaps Reason Comments 8 month follow up Reason Comments Results Patient Update Reason Comments New Patient Evaluation Specialty Diagnoses / Procedures Referred By Moisés t Referred To Contact Neurology Diagnoses Memory loss Procedures CONSULT TO NEUROLOGY OFFICE/OUTPATIENT NEW HIGH MDM 60-74 MINUTES Samm Kc DO [address] [place] [address] Referral ID Status Reason Start Date Expiration Date Visits Requested Visits Authorized [id number] Pending Review PCP Requested Referral 09/22/2022 09/22/2023 1 1 Reason Comments Patient Update Reason Comments Metoprolol Reason Comments Appointment Reason Comments Radiology US Specialty Diagnoses / Procedures Referred By Contac t Referred To Contact US IMAGING Diagnoses Screening for abdominal aortic aneurysm Procedures US SCREENING FOR AAA (2017) US ABDOMINAL AORTA REAL TIME SCREEN STUDY AAA Samm Kc DO [address] [place] [address] [place] [address] Referral ID Status Reason Start Date Expiration Date V isits Requested Visits Authorized [id number] Closed Auto-Generate d Referral 04/12/2022 05/12/2023 1 1 Specialty Diagnoses / Procedures Referred By Contac t Referred To Contact MR IMAGING Diagnoses Occlusion and stenosis of unspecified carotid artery Procedures MRA CAROTID WO/W IVCON MRA,NECK; W/[place] [address] [place] [address] [place] [address] Referral ID Status Reason Start Date Expiration Date V isits Requested Visits Authorized [id number] Closed Auto-Generate d Referral 04/22/2022 05/22/2023 1 [...] Diagnoses Onychomycosis Procedures CONSULT TO PODIATRY OFFICE/OUTPATIENT NEW HIGH MDM 60 [place] [address] [place] [address] Referral ID Status Reason Start Date Expiration Date V isits Requested Visits Authorized [id number] Closed PCP Requested Referral 06/18/2023 06/17/2024 1 1 Reason Comments Pain (Shoulder Pain) Reason Comments Pain (Shoulder Pain) Reason Onset Date Comments pre op prep 12/25/2023 Reason Comments Urgent Reason Comments [facility] Specialty Diagnoses / Procedures Referred By Contac t Referred To Contact Dermatology Diagnoses 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 Procedures [facility] OFFICE/OUTPATIENT NEW HIGH MDM 60 MINUTES Анна Perez PA-C [address] [place] [address] Referral ID Status Reason Start Date Expiration Date V isits Requested Visits Authorized [id number] Closed PCP Requested Referral 11/02/2023 11/01/2024 1 [...] STRESS/PHARM MYOCARDIAL SPECT MULTIPLE STUDIES Deanne Carrasco, DO [address] [place] [address] Molecular [facility] Functional Imaging [address] [place], [place] [id number] Referral ID Status Reason Start Date Expiration Date Visits Re quested Visits Authorized [id number] Closed 09/22/2021 10/22/2021 1 1 Reason Comments Radio Gen RMP Specialty Diagnoses / Procedures Referred By Contac t Referred To Contact Dermatology Diagnoses 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 Procedures [facility] OFFICE/OUTPATIENT NEW HIGH MDM 60 MINUTES Анна Perez PA-C [address] [place] [address] Referral ID Status Reason Start Date Expiration Date V isits Requested Visits Authorized [id number] Closed PCP Requested Referral 01/14/2024 01/13/2025 1 1 Reason Comments Cardiology Follow Up Reason Comments Depression Reason Comments Ambulatory Social Work Community resourc es Reason Comments Appointment Colonoscopy Reason Comments dog scratch 2-3 days ago dog scr atch, top of rt hand Reason Onset Date Comments Population Health Navigation Outreach 05/12/2024 [employer]s Reason Comments Referral Request Reason Comments 6 Month Exam Reason Comments Geriatric Evaluation Specialty Diagnoses / Procedures Referred By Contac t Referred To Contact Gerontology Diagnoses Mixed Alzheimer and vascular dementia (HCC) Dementia with behavioral disturbance (HCC) Memory loss Procedures CONSULT TO GERIATRICS OFFICE/OUTPATIENT [facility] 60 MINUTES Samm Kc DO [address] [place] [address] Phone: tel: fax: Referral ID Status Reason Start Date Expiration Date V isits Requested Visits Authorized [id number] Closed PCP Requested Referral 05/30/2024 05/30/2025 1 1 Reason Comments Medication Question antidepressant meds Reason Comments Patient Request Referral Reason Comments Opened In Error Reason Comments Patient Request ex spouse Reason Comments Callous Diabetic Foot Check Bilateral nail care Reason Comments Consult History of colonic p olyps Last Colonoscopy 05/29/24 Specialty Diagnoses / Procedures Referred By Contsaniya t Referred To Contact Gastroenterology Diagnoses History of colonic polyps Procedures CONSULT TO GASTROENTEROLOGY OFFICE/OUTPATIENT [facility] 60 MINUTES Karol Rodriguez APRN.[employer] [address] [place] [address] Phone: tel: fax: Referral ID Status Reason Start Date Expiration Date V isits Requested Visits Authorized [id number] Closed PCP Requested Referral 09/02/2024 09/02/2025 1 1 Reason Onset Date Comments Refill Request 10/08/2024 Reason Onset Date Comments Population Health Navigation Outreach 11/06/2024 Mando hooks Reason Comments Follow Up Established Patient Reason [...] NM Specialty Diagnoses / Procedures Referred By Moisés t Referred To Contact MOLECULAR & FUNCTIONAL IMAGING Diagnoses Mantle cell lymphoma, unspecified body region (HCC) Lymphadenopathy, cervical Procedures NM PET/CT SKULL-THIGH INITIAL PET IMAGING CT ATTENUATION SKULL BASE MID-THIGH Amy Angeles, [employer] [address] [place] [address] Phone: tel: fax: Molecular Imaging [address] [place] [address] Phone: tel: Referral ID Status Reason Start Date Expiration Date Visits Re quested Visits Authorized [id number] Closed 01/22/2025 03/23/2025 2 2 Reason Comments request [place] freestyle Yessenia 3 Reason Comments Jaundice Reason Comments Insurance Authorization Blood-Glucose Me ter,Continuous (FREESTYLE YESSENIA 3 READER) misc Reason Comments Orders Reason Onset Date Comments Population Health Navigation Outreach 01/29/2025 [employer] [facility] Reason Onset Date Comments Transition Of Care 02/10/2025 Chart review Reason Comments Hospital Follow Up Reason Comments Consult Specialty Diagnoses / Procedures Referred By Contac t Referred To Contact Diagnoses Anemia, unspecified type Enlarged lymph nodes Procedures OFFICE/OUTPATIENT [facility] 60 MINUTES Karol Rodriguez, [employer] [address] [place] [address] Phone: tel: fax: Referral ID Status Reason Start Date Expiration Date V isits Requested Visits Authorized [id number] Closed PCP Requested Referral 01/05/2025 01/05/2026 1 1 Reason Onset Date Comments Allied Health Visit 02/16/2025 Medication A dherence Outreach Reason Comments CARD Follow Up Annual Reason Comments Abrasion Left arm. Pt's dog s cratched him the other day. Care Teams (unrecognized sec tion and content) Manager Area Relationship Specialty Start Date End Date Wong Gordillo MD [address] [facility] [address] [place] [address] PCP - General Internal Medicine 01/04/21 [place] [address] [place] [address] Spine Health 05/17/18 Manager Area Relationship Specialty Start Date End Date Wong Gordillo MD [address] [facility] [address] [place] [address] PCP - General Internal Medicine 01/04/21 [place] [address] [place] [address] Spine Health 05/17/18 Manager Area Relationship Specialty Start Date End Date Quinn Sharp V, MD [address] [phone] PCP - General Pulmonary Disease 10/10/21 [place] [address] [place] [address] Spine Health 05/17/18 Manager Area Relationship Specialty Start Date End Date Quinn Sharp V, MD [address] [phone] PCP - General Pulmonary Disease 10/10/21 Luis Brooke, [address] [place] [address] Spine Health 05/17/18 Manager Area Relationship Specialty Start Date End Date Quinn Sharp V, MD [address] [phone] PCP - General Pulmonary Disease 10/10/21 [place] [address] [place] [address] Spine Health 05/17/18 Manager Area Relationship Specialty Start Date End Date Wong Gordillo MD [address] [facility] [address] [place] [address] PCP - General Internal Medicine 10/27/21 [place] [address] [place] [address] Spine Health 05/17/18 Manager Area Relationship Specialty Start Date End Date Wong Gordillo MD [address] [facility] [address] [place] [address] PCP - General Internal Medicine 10/27/21 [place] [address] [place] [address] Spine Health 05/17/18 Manager Area Relationship Specialty Start Date End Date Wong Gordillo MD [address] [facility] [address] [place] [address] PCP - General Internal Medicine 10/27/21 [place] [address] [place] [address] Spine Health 05/17/18 Manager Area Relationship Specialty Start Date End Date Wong Gordillo MD [address] [facility] [address] [place] [address] PCP - General Internal Medicine 10/27/21 [place] [address] [place] [address] Spine Health 05/17/18 Manager Area Relationship Specialty Start Date End Date Wong Gordillo MD [address] [facility] [address] [place] [address] PCP - General Internal Medicine 10/27/21 [place] [address] [place] [address] Spine Health 05/17/18 Manager Area Relationship Specialty Start Date End Date Wong Gordillo MD [address] [facility] [address] [place] [address] PCP - General Internal Medicine 10/27/21 Luis Brooke, [address] [place] [address] Spine Health 05/17/18 Manager Area Relationship Specialty Start Date End Date Wogn Gordillo MD [address] [facility] [address] [place] [address] PCP - General Internal Medicine 10/27/21 Luis Brooke, [address] [place] [address] Spine Health 05/17/18 Manager Area Relationship Specialty Start Date End Date Wong Gordillo MD [address] [facility] [address] [place] [address] PCP - General Internal Medicine 10/27/21 Luis Brooke, [address] [place] [address] Spine Health 05/17/18 Manager Area Relationship Specialty Start Date End Date Wong Gordillo MD [address] [facility] [address] [place] [address] PCP - General Internal Medicine 10/27/21 [place] [address] [place] [address] Spine Health 05/17/18 Manager Area Relationship Specialty Start Date End Date Samm Kc DO [address] [place] [address] PCP - General Family Medicine 04/12/22 [place] [address] [place] [address] Spine Health 05/17/18 [place] [address] [place] [address] Interior Design Consultant Cardiology 04/06/22 Manager Area Relationship Specialty Start Date End Date Samm Kc DO [address] [place], [place] 9240[address] PCP - General Family Medicine 04/12/22 [place] [address] [place] [address] Spine Health 05/17/18 [place] [address] [place] [address] Interior Design Consultant Cardiology 04/06/22 Manager Area Relationship Specialty Start Date End Date Samm Kc DO [address] [place], [place] 217[address] PCP - General Family Medicine 04/12/22 [place] [address] [place] [address] Spine Health 05/17/18 [place] [address] [place] [address] Interior Design Consultant Cardiology 04/06/22 Manager Area Relationship Specialty Start Date End Date Samm Kc DO [address] [place], [place] 8967[address] PCP - General Family Medicine 04/12/22 [place] [address] [place] [address] Spine Health 05/17/18 [place] [address] [place], [place] 22488[address] Interior Design Consultant Cardiology 04/06/22 Manager Area Relationship Specialty Start Date End Date Samm Kc DO [address] [place], [place] 2764[address] PCP - General Family Medicine 04/12/22 [place] [address] [place] [address] Spine Health 05/17/18 [place] [address] [place] [address] Interior Design Consultant Cardiology 04/06/22 Manager Area Relationship Specialty Start Date End Date Samm Kc DO [address] [place], [place] 137332 PCP - General Family Medicine 04/12/22 [place] [address] [place] [address] Spine Health 05/17/18 [place] [address] [place] [address] Interior Design Consultant Cardiology 04/06/22 Manager Area Relationship Specialty Start Date End Date Samm Kc DO [address] [place], [place] [id number] PCP - General Family Medicine 04/12/22 [place] [address] [place] [address] Spine Health 05/17/18 Priscilla Salas MD [id number] [place] [address] Interior Design Consultant Cardiology 04/06/22 Manager Area Relationship Specialty Start Date End Date Samm Kc DO [address] [place] [address] PCP - General Family Medicine 04/12/22 [place] [address] [place] [address] [facility] 05/17/18 [place] [address] [place] [address] Interior Design Consultant Cardiology 04/06/22 Manager Area Relationship Specialty Start Date End Date Samm Kc DO [address] [place], [place] 725032 PCP - General Family Medicine 04/12/22 [place] [address] [place] [address] [facility] 05/17/18 [place] [address] [place] [address] Interior Design Consultant Cardiology 04/06/22 Manager Area Relationship Specialty Start Date End Date Samm KcDO [address] [place] [address] PCP - General Family Medicine 04/12/22 Luis Bro[place] DO [address] [place] [address] [facility] 05/17/18 [place] [address] [place] [address] Interior Design Consultant Cardiology 04/06/22 Manager Area Relationship Specialty Start Date End Date Samm Kc DO [address] [place], [place] 229792 PCP - General Family Medicine 04/12/22 [place] [address] [place] [address] [facility] 05/17/18 [place] [address] [place] [address] Interior Design Consultant Cardiology 04/06/22 Manager Area Relationship Specialty Start Date End Date Samm Kc DO [address] [place] [address] PCP - General Family Medicine 04/12/22 [place] [address] [place] [address] [facility] 05/17/18 [place] [address] [place] [address] Interior Design Consultant Cardiology 04/06/22 Manager Area Relationship Specialty Start Date End Date Samm Kc DO [address] [place] [address] PCP - General Family Medicine 04/12/22 [place] [address] [place] [address] Spine [facility] 05/17/18 [place] [address] [place] [address] Interior Design Consultant Cardiology 04/06/22 Manager Area Relationship Specialty Start Date End Date Samm Kc DO [address] [place] [address] PCP - General Family Medicine 04/12/22 [place] [address] [place] [address] [facility] 05/17/18 [place] [address] [place] [address] Interior Design Consultant Cardiology 04/06/22 Manager Area Relationship Specialty Start Date End Date Yamini SammDO [address] [place] [address] PCP - General Family Medicine 04/12/22 [place] [address] [place] [address] [facility] 05/17/18 [place] [address] [place] [address] Interior Design Consultant Cardiology 04/06/22 Manager Area Relationship Specialty Start Date End Date Yamini SammDO [address] [place] [address] PCP - General Family Medicine 04/12/22 [place] [address] [place] [address] [facility] 05/17/18 [place] [address] [place] [address] Interior Design Consultant Cardiology 04/06/22 Manager Area Relationship Specialty Start Date End Date Samm Kc DO [address] [place], [place] 285982 PCP - General Family Medicine 04/12/22 [place] [address] [place] [address] [facility] 05/17/18 [place] [address] [place] [address] Interior Design Consultant Cardiology 04/06/22 Manager Area Relationship Specialty Start Date End Date Samm Kc DO [address] [place], [place] 387902 PCP - General Family Medicine 04/12/22 [place] [address] [place] [address] [facility] 05/17/18 [place] [address] [place] [address] Interior Design Consultant Cardiology 04/06/22 Manager Area Relationship Specialty Start Date End Date Yamini SammDO [address] [place], [place] 280192 PCP - General Family Medicine 04/12/22 [place] [address] [place] [address] [facility]ine [facility] 05/17/18 [place] [address] [place] [address] Interior Design Consultant Cardiology 04/06/22 Manager Area Relationship Specialty Start Date End Date Samm Kc DO [address] [place], [place] 269662 PCP - General Family Medicine 04/12/22 [place] [address] [place] [address] [facility]ine [facility] 05/17/18 [place] [address] [place] [address] Interior Design Consultant Cardiology 04/06/22 Manager Area Relationship Specialty Start Date End Date Samm Kc DO [address] [place] [address] PCP - General Family Medicine 04/12/22 [place] [address] [place] [address] [facility] 05/17/18 [place] [address] [place] [address] Interior Design Consultant Cardiology 04/06/22 Manager Area Relationship Specialty Start Date End Date Samm Kc DO [address] [place] [address] PCP - General Family Medicine 04/12/22 [place] [address] [place] [address] [facility] 05/17/18 [place] [address] [place] [address] Interior Design Consultant Cardiology 04/06/22 Manager Area Relationship Specialty Start Date End Date Samm Kc DO [address] [place] [address] PCP - General Family Medicine 04/12/22 [place] [address] [place] 1280136 [facility] 05/17/18 [place] [address] [place] [address] Interior Design Consultant Cardiology 04/06/22 Manager Area Relationship Specialty Start Date End Date Samm Kc DO [address] [place] [address] PCP - General Family Medicine 04/12/22 [place] [address] [place] [address] [facility] 05/17/18 [place] [address] [place], [place] 9569436 Interior Design Consultant Cardiology 04/06/22 Manager Area Relationship Specialty Start Date End Date Samm Kc DO [address] [place], [place] 154052 PCP - General Family Medicine 04/12/22 [place] [address] [place] [address] [facility] 05/17/18 [place] [address] [place] [address] Interior Design Consultant Cardiology 04/06/22 Manager Area Relationship Specialty Start Date End Date Samm Kc DO [address] [place], [place] 086062 PCP - General Family Medicine 04/12/22 [place] [address] [place] [address] [facility] 05/17/18 [place] [address] [place] [address] Interior Design Consultant Cardiology 04/06/22 Manager Area Relationship Specialty Start Date End Date Samm Kc DO [address] [place], [place] 117212 PCP - General Family Medicine 04/12/22 [place] [address] [place] [address] [facility] 05/17/18 [place] [address] [place] [address] Interior Design Consultant Cardiology 04/06/22 Manager Area Relationship Specialty Start Date End Date Samm Kc DO [address] [place], [place] 683062 PCP - General Family Medicine 04/12/22 [place] [address] [place] [address] [facility] 05/17/18 [place] [address] [place] [address] Interior Design Consultant Cardiology 04/06/22 Manager Area Relationship Specialty Start Date End Date Yamini SammDO [address] [place], [place] 766772 PCP - General Family Medicine 04/12/22 [place] [address] [place] [address] Spine [facility] 05/17/18 [place] [address] [place] [address] Interior Design Consultant Cardiology 04/06/22 Manager Area Relationship Specialty Start Date End Date Yamini SammDO [address] [place] [address] PCP - General Family Medicine 04/12/22 [place] [address] [place] [address] [facility] 05/17/18 [place] [address] [place] [address] Interior Design Consultant Cardiology 04/06/22 Manager Area Relationship Specialty Start Date End Date Samm Kc DO [address] [place], [place] 205182 PCP - General Family Medicine 04/12/22 [place] [address] [place] [address] [facility] 05/17/18 [place] [address] [place] [address] Interior Design Consultant Cardiology 04/06/22 Manager Area Relationship Specialty Start Date End Date Samm Kc DO [address] [place] [address] PCP - General Family Medicine 04/12/22 [place] [address] [place] [address] [facility] 05/17/18 [place] [address] [place] [address] Interior Design Consultant Cardiology 04/06/22 Manager Area Relationship Specialty Start Date End Date Samm Kc DO [address] [place], [place] 112442 PCP - General Family Medicine 04/12/22 [place] [address] [place] [address] [facility] 05/17/18 [place] [address] [place] [address] Interior Design Consultant Cardiology 04/06/22 Manager Area Relationship Specialty Start Date End Date Samm Kc DO [address] [place], [place] 143722 PCP - General Family Medicine 04/12/22 [place] [address] [place] [address] [facility] 05/17/18 [place] [address] [place] [address] Interior Design Consultant Cardiology 04/06/22 Manager Area Relationship Specialty Start Date End Date Samm Kc DO [address] [place] [address] PCP - General Family Medicine 04/12/22 [place] [address] [place] [address] [facility] 05/17/18 [place] [address] [place] [address] Interior Design Consultant Cardiology 04/06/22 Manager Area Relationship Specialty Start Date End Date Samm Kc DO [address] [place] [address] PCP - General Family Medicine 04/12/22 [place] [address] [place] [address] [facility] 05/17/18 [place] [address] [place] [address] Interior Design Consultant Cardiology 04/06/22 Manager Area Relationship Specialty Start Date End Date Yamini SammDO maira [address] [place] [address] PCP - General Family Medicine 04/12/22 [place] [address] [place] [phone] [facility] 05/17/18 [place] [address] [place] [address] Interior Design Consultant Cardiology 04/06/22 Manager Area Relationship Specialty Start Date End Date Samm Kc DO [address] [place] [address] PCP - General Family Medicine 04/12/22 [place] [address] [place] [address] [facility] 05/17/18 [place] [address] [place] [address] Interior Design Consultant Cardiology 04/06/22 Manager Area Relationship Specialty Start Date End Date Samm Kc DO [address] [place] [address] PCP - General Family Medicine 04/12/22 [place] [address] [place] [address] [facility] 05/17/18 [place] [address] [place] [address] Interior Design Consultant Cardiology 04/06/22 Manager Area Relationship Specialty Start Date End Date Wong Gordillo MD [address] [address] PCP - General Internal Medicine 01/04/21 10/09/21 [place] [address] [place] [phone] [facility] 05/17/18 Manager Area Relationship Specialty Start Date End Date Wong Gordillo MD [address] [address] PCP - General Internal Medicine 01/04/21 10/09/21 [place] [address] [place] [address] [facility] 05/17/18 Manager Area Relationship Specialty [place] [address] [place] [address] [facility] 05/17/18 Manager Area Relationship Specialty Start Date End Date Yamini Samm [address] [place], [place] 563162 PCP - General Family Medicine 04/12/22 [place] [address] [place] [address] [facility] 05/17/18 [place] [address] [place] [address] Interior Design Consultant Cardiology 04/06/22 Manager Area Relationship Specialty Start Date End Date Yamini SammDO [address] [place] [address] PCP - General Family Medicine 04/12/22 [place] [address] [place] [address] [facility] 05/17/18 [place] [address] [place] [address] Interior Design Consultant Cardiology 04/06/22 Manager Area Relationship Specialty Start Date End Date Yamini SammDO maira [address] [place] [address] PCP - General Family Medicine 04/12/22 [place] [address] [place] [address] [facility] 05/17/18 [place] [address] [place] [address] Interior Design Consultant Cardiology 04/06/22 Manager Area Relationship Specialty Start Date End Date Samm Kc DO [address] [place], [place] 575752 PCP - General Family Medicine 04/12/22 [place] [address] [place] [address] [facility] 05/17/18 [place] [address] [place] [phone] Interior Design Consultant Cardiology 04/06/22 Manager Area Relationship Specialty Start Date End Date Samm KcDO [address] [place], [place] 758822 PCP - General Family Medicine 04/12/22 [place] [address] [place] [phone] [facility] 05/17/18 [place] [address] [place] [address] Interior Design Consultant Cardiology 04/06/22 Manager Area Relationship Specialty Start Date End Date Samm KcDO [address] [place] [address] PCP - General Family Medicine 04/12/22 [place] [address] [place] [address] [facility] 05/17/18 [place] [address] [place] [address] Interior Design Consultant Cardiology 04/06/22 Manager Area Relationship Specialty Start Date End Date Yamini SammDO [address] [place] [address] PCP - General Family Medicine 04/12/22 [place] [address] [place] [address] [facility] 05/17/18 [place] [address] [place] [address] Interior Design Consultant Cardiology 04/06/22 Toni Duran APRN.CNP [address] [place] [address] [facility] 05/19/24 Manager Area Relationship Specialty Start Date End Date Samm Kc DO [address] [place] [address] PCP - General Family Medicine 04/12/22 [place] [address] [place] [address] [facility] 05/17/18 [place] [address] [place], [place] 4930436 Interior Design Consultant Cardiology 04/06/22 Toni Duran APRN.INSTALLER MOLDING [employer] TRIM [address] [place], [place] 139842 [facility] 05/19/24 Manager Area Relationship Specialty Start Date End Date Samm Kc DO [address] [place], [place] 524212 PCP - General Family Medicine 04/12/22 [place] [address] [place], [place] 3900336 [facility] 05/17/18 [place] [address] [place], [place] 6584836 Interior Design Consultant Cardiology 04/06/22 Toni Duran APRN.INSTALLER MOLDING [employer] TRIM [address] [place], [place] 159062 [facility] 05/19/24 Manager Area Relationship Specialty Start Date End Date Samm cK DO [address] [place], [place] 247762 PCP - General Family Medicine 04/12/22 [place] [address] [place] [address] [facility] 05/17/18 [place] [address] [place] [address] Interior Design Consultant Cardiology 04/06/22 Toni Duran APRN.INSTALLER MOLDING [employer]IM [address] [place] [address] [facility] 05/19/24 Manager Area Relationship Specialty Start Date End Date Samm Kc DO [address] [place] [address] PCP - General Family Medicine 04/12/22 [place] [address] [place] [address] [facility] 05/17/18 [place] [address] [place] [address] Interior Design Consultant Cardiology 04/06/22 Toni Duran APRN.INSTALLER MOLDING [employer]IM [address] [place] [address] [facility] 05/19/24 Manager Area Relationship Specialty Start Date End Date Samm Kc DO [address] [place] [address] PCP - General Family Medicine 04/12/22 [place] [address] [place] [address] [facility] 05/17/18 [place] [address] [place] [address] Interior Design Consultant Cardiology 04/06/22 Toni Duran APRN.INSTALLER MOLDING [employer]IM [address] [place] [address] [facility] 05/19/24 Manager Area Relationship Specialty Start Date End Date Yamini SammDO [address] [place], [place] 829002 PCP - General Family Medicine 04/12/22 [place] [address] [place], [place] 0563636 [facility] 05/17/18 [place] [address] [place], [place] 3489236 Interior Design Consultant Cardiology 04/06/22 Toni Duran APRN.INSTALLER MOLDING [employer]IM [address] [place] [address] [facility] 05/19/24 Manager Area Relationship Specialty Start Date End Date Marlon KcrielDO [address] [place], [place] 624212 PCP - General Family Medicine 04/12/22 [place] [address] [place] [address] [facility] 05/17/18 [place] [address] [place], [place] 6358036 Interior Design Consultant Cardiology 04/06/22 Toni Duran APRN.INSTALLER MOLDING [employer] [address] [place], [place] 751832 [facility] 05/19/24 Manager Area Relationship Specialty Start Date End Date Samm Kc DO [address] [place], [place] 906402 PCP - General Family Medicine 04/12/22 [place] [address] [place] [address] [facility] 05/17/18 [place] [address] [place], [place] 8756736 Interior Design Consultant Cardiology 04/06/22 Toni Duran APRN.INSTALLER MOLDING [employer] [address] [place] [address] [facility] 05/19/24 Manager Area Relationship Specialty Start Date End Date Samm Kc DO [address] [place] [address] PCP - General Family Medicine 04/12/22 [place] [address] [place] [address] [facility] 05/17/18 [place] [address] [place] [address] Interior Design Consultant Cardiology 04/06/22 Toni Duran BENCH ASSEMBLER BATTERY.INSTALLER MOLDING AND TRIM [address] [place], [place] 690842 [facility] 05/19/24 Della Alicia BENCH ASSEMBLER BATTERY.INSTALLER MOLDING AND TRIM [address] [place], [place] 251042 [facility] 08/22/24 Manager Area Relationship Specialty Start Date End Date Samm Kc DO [address] [place], [place] 728082 PCP - General Family Medicine 04/12/22 [place] [address] [place], [place] 6901036 [facility] 05/17/18 [place] [address] [place], [place] 6503636 Interior Design Consultant Cardiology 04/06/22 Toni Duran APRN.INSTALLER MOLDING [employer] TRIM [address] [place] [address] [facility] 05/19/24 Della Alicia, BENCH ASSEMBLER BATTERY.INSTALLER MOLDING [employer] TRIM [address] [place] [address] [facility] 08/22/24 Manager Area Relationship Specialty Start Date End Date Samm Kc DO [address] [place] [address] PCP - General Family Medicine 04/12/22 [place] [address] [place] [address] [facility] 05/17/18 [place] [address] [place] [address] Interior Design Consultant Cardiology 04/06/22 Toni Duran BENCH ASSEMBLER BATTERY.INSTALLER MOLDING [employer] TRIM [address] [place], [place] 75627212 [facility] 05/19/24 Della Alicia, BENCH ASSEMBLER BATTERY.INSTALLER MOLDING [employer] TRIM [address] [place], [place] 893592 [facility] 08/22/24 Manager Area Relationship Specialty Start Date End Date Samm Kc DO [address] [place], [place] 867012 PCP - General Family Medicine 04/12/22 [place] [address] [place], [place] 1349136 [facility] 05/17/18 [place] [address] [place], [place] 0770136 Interior Design Consultant Cardiology 04/06/22 Toni Duran BENCH ASSEMBLER BATTERY.INSTALLER MOLDING [employer] TRIM [address] [place], [place] 758332 [facility] 05/19/24 Della Alicia, BENCH ASSEMBLER BATTERY.INSTALLER MOLDING [employer] TRIM [address] [place], [place] 458612 [facility] 08/22/24 Manager Area Relationship Specialty Start Date End Date Samm Kc DO [address] [place], [place] 90578212 PCP - General Family Medicine 04/12/22 [place] [address] [place], [place] 4904636 [facility] 05/17/18 [place] [address] [place], [place] 7251736 Interior Design Consultant Cardiology 04/06/22 Toni Duran APRN.INSTALLER MOLDING [employer] TRIM [address] [place], [place] 009212 [facility] 05/19/24 Della Alicia, BENCH ASSEMBLER BATTERY.INSTALLER MOLDING [employer] TRIM [address] [place], [place] 303732 [facility] 08/22/24 Manager Area Relationship Specialty Start Date End Date Samm Kc DO [address] [place], [place] 05760212 PCP - General Family Medicine 04/12/22 [place] [address] [place], [place] 3777536 [facility] 05/17/18 [place] [address] [place], [place] 5406536 Interior Design Consultant Cardiology 04/06/22 Toni Duran APRN.INSTALLER MOLDING [employer] TRIM [address] [place], [place] 821182 [facility] 05/19/24 Della Alicia APRN.INSTALLER MOLDING AND TRIM [address] [place], [place] 887662 [facility] 08/22/24 Manager Area Relationship Specialty Start Date End Date Samm Kc DO [address] [place], [place] 866252 PCP - General Family Medicine 04/12/22 [place] [address] [place], [place] 6473036 [facility] 05/17/18 [place] [address] [place], [place] 7331436 Interior Design Consultant Cardiology 04/06/22 Toni Duran BENCH ASSEMBLER BATTERY.INSTALLER MOLDING [employer] TRIM [address] [place] [address] [facility] 05/19/24 Della Alicia, BENCH ASSEMBLER BATTERY.INSTALLER MOLDING AND TRIM [address] [place] [address] [facility] 08/22/24 Manager Area Relationship Specialty Start Date End Date Samm Kc DO [address] [place], [place] 977442 PCP - General Family Medicine 04/12/22 [place] [address] [place] [address] [facility] 05/17/18 [place] [address] [place], [place] 3330436 Interior Design Consultant Cardiology 04/06/22 Scarlett Tan, BENCH ASSEMBLER BATTERY.INSTALLER MOLDING AND TRIM [address] [place], [place] 832372 [facility] 10/24/24 Manager Area Relationship Specialty Start Date End Date Samm Kc DO [address] [place], [place] 303162 PCP - General Family Medicine 04/12/22 [place] [address] [place], [place] 0168736 [facility] 05/17/18 [place] [address] [place], [place] 8261336 Interior Design Consultant Cardiology 04/06/22 Toni Duran APRN.INSTALLER MOLDING [employer] TRIM [address] [place] [address] [facility] 11/12/24 Della Alicia BENCH ASSEMBLER BATTERY.INSTALLER MOLDING AND TRIM [address] [place], [place] 773442 [facility] 11/12/24 Manager Area Relationship Specialty Start Date End Date Samm Kc DO [address] [place], [place] 221382 PCP - General Family Medicine 04/12/22 [place] [address] [place] [address] [facility] 05/17/18 [place] [address] [place], [place] 0904136 Interior Design Consultant Cardiology 04/06/22 Toni Duran APRN.INSTALLER MOLDING AND TRIM [address] [place], [place] 296972 [facility] 11/12/24 Della Alicia, BENCH ASSEMBLER BATTERY.INSTALLER MOLDING AND TRIM [address] [place], [place] 396742 [facility] 11/12/24 Manager Area Relationship Specialty Start Date End Date Samm Kc DO [address] [place], [place] 223122 PCP - General Family Medicine 04/12/22 [place] [address] [place], [place] 1147836 [facility] 05/17/18 [place] [address] [place], [place] 1028736 Interior Design Consultant Cardiology 04/06/22 Toni Duran APRN.INSTALLER MOLDING AND TRIM [address] [place] [address] [facility] 11/12/24 Della Alicia, BENCH ASSEMBLER BATTERY.INSTALLER MOLDING AND TRIM [address] [place] [address] [facility] 11/12/24 Manager Area Relationship Specialty Start Date End Date Samm Kc DO [address] [place], [place] 757692 PCP - General Family Medicine 04/12/22 [place] [address] [place] [address] [facility] 05/17/18 [place] [address] [place] [address] Interior Design Consultant Cardiology 04/06/22 Toni Duran APRN.INSTALLER MOLDING AND TRIM [address] [place], [place] 166702 [facility] 11/12/24 Della Alicia APRN.INSTALLER MOLDING AND TRIM [address] [place], [place] 553432 [facility] 11/12/24 Manager Area Relationship Specialty Start Date End Date Samm Kc DO [address] [place], [place] 94518212 PCP - General Family Medicine 04/12/22 [place] [address] [place], [place] 6797336 [facility] 05/17/18 [place] [address] [place] [address] Interior Design Consultant Cardiology 04/06/22 Toni Duran APRN.INSTALLER MOLDING AND TRIM [address] [place], [place] 099172 [facility] 11/12/24 Della Alicia APRN.INSTALLER MOLDING AND TRIM [address] [place], [place] 066382 [facility] 11/12/24 Manager Area Relationship Specialty Start Date End Date Samm Kc DO [address] [place], [place] 206332 PCP - General Family Medicine 04/12/22 [place] [address] [place], [place] 5153536 [facility] 05/17/18 [place] [address] [place], [place] 4859536 Interior Design Consultant Cardiology 04/06/22 Toni Duran APRN.INSTALLER MOLDING AND TRIM [address] [place], [place] 721942 [facility] 11/12/24 Della Alicia APRN.INSTALLER MOLDING AND TRIM [address] [place] [address] [facility] 11/12/24 Manager Area Relationship Specialty Start Date End Date YaminiSamm shepherdDO [address] [place], [place] 988142 PCP - General Family Medicine 04/12/22 [place] [address] [place], [place] 8627036 [facility] 05/17/18 [place] [address] [place], [place] 5977436 Interior Design Consultant Cardiology 04/06/22 Toni Duran APRN.INSTALLER MOLDING AND TRIM [address] [place], [place] 845852 [facility] 11/12/24 Della Alicia APRN.INSTALLER MOLDING AND TRIM [address] [place], [place] 117512 [facility] 11/12/24 Manager Area Relationship Specialty Start Date End Date Samm Kc DO [address] [place], [place] 650612 PCP - General Family Medicine 04/12/22 [place] [address] [place], [place] 6312936 [facility] 05/17/18 [place] [address] [place], [place] 2527936 Interior Design Consultant Cardiology 04/06/22 Toni Duran APRN.INSTALLER MOLDING AND TRIM [address] [place] [address] [facility] 11/12/24 Della Alicia APRN.INSTALLER MOLDING AND TRIM [address] [place] [address] [facility] 11/12/24 Manager Area Relationship Specialty Start Date End Date Samm Kc DO [address] [place] [address] PCP - General Family Medicine 04/12/22 [place] [address] [place], [place] 6477636 [facility] 05/17/18 [place] [address] [place], [place] 8835736 Interior Design Consultant Cardiology 04/06/22 Toni Duran, BENCH ASSEMBLER BATTERY.INSTALLER MOLDING AND TRIM [address] [place], [place] 619472 [facility] 11/12/24 Della Alicia, BENCH ASSEMBLER BATTERY.INSTALLER MOLDING AND TRIM [address] [place] [address] [facility] 11/12/24 Manager Area Relationship Specialty Start Date End Date Yamini Samm [address] [place] [address] PCP - General Family Medicine 04/12/22 [place] [address] [place], [place] 0628236 [facility] 05/17/18 [place] [address] [place], [place] 4412236 Interior Design Consultant Cardiology 04/06/22 Toni Duran, BENCH ASSEMBLER BATTERY.INSTALLER MOLDING [employer] TRIM [address] [place] [address] [facility] 11/12/24 Della Alicia, BENCH ASSEMBLER BATTERY.INSTALLER MOLDING AND TRIM [address] [place], [place] 036032 [facility] 11/12/24 Manager Area Relationship Specialty Start Date End Date Samm Kc [address] [place], [place] 420332 PCP - General Family Medicine 04/12/22 [place] [address] [place] [address] [facility] 05/17/18 [place] [address] [place] [address] Interior Design Consultant Cardiology 04/06/22 Toni Duran APRN.INSTALLER MOLDING AND TRIM [address] [place], [place] 257372 [facility] 11/12/24 Della Alicia APRN.INSTALLER MOLDING AND TRIM [address] [place], [place] 141062 [facility] 11/12/24 Manager Area Relationship Specialty Start Date End Date Samm Kc DO [address] [place], [place] 120112 PCP - General Family Medicine 04/12/22 [place] [address] [place] [address] [facility] 05/17/18 [place] [address] [place] [address] Interior Design Consultant Cardiology 04/06/22 Toni Duran APRN.INSTALLER MOLDING [employer] TRIM [address] [place], [place] 341552 [facility] 11/12/24 Della Alicia BENCH ASSEMBLER BATTERY.INSTALLER MOLDING AND TRIM [address] [place], [place] 583622 [facility] 11/12/24 Samm KcDO [address] [place], [place] 73320212 Home Care Provider Family Medicine 01/08/25 Manager Area Relationship Specialty Start Date End Date Samm Kc DO [address] [place], [place] 250042 PCP - General Family Medicine 04/12/22 [place] [address] [place], [place] 1559136 [facility] 05/17/18 [place] [address] [place], [place] 0375836 Interior Design Consultant Cardiology 04/06/22 Toni Duran, BENCH ASSEMBLER BATTERY.INSTALLER MOLDING AND TRIM [address] [place], [place] 879952 [facility] 11/12/24 Della Alicia, BENCH ASSEMBLER BATTERY.INSTALLER MOLDING AND TRIM [address] [place], [place] 889832 [facility] 11/12/24 Yamini SammDO [address] [place], [place] 098432 Home Care Provider Family Medicine 01/08/25 Manager Area Relationship Specialty Start Date End Date Samm Kc DO [address] [place], [place] 322352 PCP - General Family Medicine 04/12/22 [place] [address] [place] [address] [facility] 05/17/18 [place] [address] [place] [address] Interior Design Consultant Cardiology 04/06/22 Toni Duran, BENCH ASSEMBLER BATTERY.INSTALLER MOLDING AND TRIM [address] [place], [place] 096732 [facility] 11/12/24 Della Alicia, BENCH ASSEMBLER BATTERY.INSTALLER MOLDING [employer] TRIM [address] [place], [place] 950312 [facility] 11/12/24 Samm Kc DO [address] [place] [address] Home Care Provider Family Medicine 01/08/25 Amy Angeles, BENCH ASSEMBLER BATTERY.INSTALLER MOLDING [employer] TRIM [address] [place] [address] Referring Hematology/Oncology 01/12/25 Manager Area Relationship Specialty Start Date End Date Samm Kc DO [address] [place], [place] 255402 PCP - General Family Medicine 04/12/22 [place] [address] [place], [place] 8540636 [facility] 05/17/18 [place] [address] [place], [place] 9882436 Interior Design Consultant Cardiology 04/06/22 Toni Duran APRN.INSTALLER MOLDING [employer] TRIM [address] [place], [place] 983852 [facility] 11/12/24 Della Alicia APRN.INSTALLER MOLDING AND TRIM [address] [place], [place] 066842 [facility] 11/12/24 Samm Kc DO [address] [place], [place] 790932 Home Care Provider Family Medicine 01/08/25 Amy Angeles APRN.INSTALLER MOLDING [employer] TRIM [address] [place], [place] 4863595 Referring Hematology/Oncology 01/12/25October, Taty Gomez RN [address] [place] [address] Primary Care Helicopter Pilot Instructor Unspecified 01/13/25 Manager Area Relationship Specialty Start Date End Date Samm Kc DO [address] [place], [place] 890572 PCP - General Family Medicine 04/12/22 [place] [address] [place], [place] 3026236 [facility] 05/17/18 [place] [address] [place] [address] Interior Design Consultant Cardiology 04/06/22 Toni Duran APRN.INSTALLER MOLDING [employer] TRIM [address] [place], [place] 61168212 [facility] 11/12/24 Della Alicia, BENCH ASSEMBLER BATTERY.INSTALLER MOLDING [employer] TRIM [address] [place], [place] 856522 [facility] 11/12/24 Samm Kc DO [address] [place], [place] 632242 Home Care Provider Family Medicine 01/08/25 Amy Angeles, BENCH ASSEMBLER BATTERY.INSTALLER MOLDING AND TRIM [address] [place] [address] Referring Hematology/Oncology 01/12/25October, Taty Gomez RN [address] [place] [address] Primary Care Helicopter Pilot Instructor Unspecified 01/13/25 Manager Area Relationship Specialty Start Date End Date Samm Kc DO [address] [place], [place] 529592 PCP - General Family Medicine 04/12/22 [place] [address] [place] [address] [facility] 05/17/18 [place] [address] [place] 8346536 Interior Design Consultant Cardiology 04/06/22 Toni Duran BENCH ASSEMBLER BATTERY.INSTALLER MOLDING [employer] TRIM [address] [place], [place] 97266212 [facility] 11/12/24 Samm Kc DO [address] [place], [place] 426432 Home Care Provider Family Medicine 01/08/25 Amy Angeles, BENCH ASSEMBLER BATTERY.INSTALLER MOLDING [employer] [address] [place] [address] Referring Hematology/Oncology 01/12/25 Daphne Mcdermott, [place] Specialty Sales Mgr Hematology/Oncology 01/20/25 Della Alicia, BENCH ASSEMBLER BATTERY.INSTALLER MOLDING [employer] TRIM [address] [place], [place] 097292 [facility] 01/21/25 Vy Levy, hose wrapper Helicopter Pilot Instructor 01/21/25 Manager Area Relationship Specialty Start Date End Date Samm Kc DO [address] [place], [place] 62352212 PCP - General Family Medicine 04/12/22 [place] [address] [place], [place] 4280236 [facility] 05/17/18 [place] [address] [place], [place] 6494536 Interior Design Consultant Cardiology 04/06/22 Toni Duran APRN.INSTALLER MOLDING [employer] TRIM [address] [place], [place] 234802 [facility] 11/12/24 Samm Kc DO [address] [place], [place] 60240212 Home Care Provider Family Medicine 01/08/25 Amy Angeles BENCH ASSEMBLER BATTERY.INSTALLER MOLDING [employer] TRIM [address] [place] [address] Referring Hematology/Oncology 01/12/25 Daphne Mcdermott, [place] Specialty Sales Mgr Hematology/Oncology 01/20/25 Della Alicia, BENCH ASSEMBLER BATTERY.INSTALLER MOLDING [employer] TRIM [address] [place], [place] 583372 [facility] 01/21/25 Vy Levy, hose wrapper Helicopter Pilot Instructor 01/21/25 Manager Area Relationship Specialty Start Date End Date Samm Kc DO [address] [place], [place] 07041212 PCP - General Family Medicine 04/12/22 [place] [address] [place], [place] 6580036 [facility] 05/17/18 [place] [address] [place], [place] 3032936 Interior Design Consultant Cardiology 04/06/22 Toni Duran APRN.INSTALLER MOLDING [employer] TRIM [address] [place], [place] 070542 [facility] 11/12/24 Della Alicia, BENCH ASSEMBLER BATTERY.INSTALLER MOLDING [employer] TRIM [address] [place], [place] 791182 [facility] 11/12/24 01/20/25 Samm Kc DO [address] [place], [place] 342022 Home Care Provider Family Medicine 01/08/25 Amy Angeles, BENCH ASSEMBLER BATTERY.INSTALLER MOLDING [employer] TRIM [address] [place] [address] Referring Hematology/Oncology 01/12/25October, Taty Gomez RN [address] [place] [address] Primary Care Helicopter Pilot Instructor Unspecified 01/13/25 01/21/25 Daphne Mcdermott, MY Specialty Sales Mgr Hematology/Oncology 01/20/25 Della Alicia, BENCH ASSEMBLER BATTERY.INSTALLER [employer]OLDING [employer]IM [address] [place], [place] [id number] [facility] 01/21/25 Vy Levy, hose wrapper Helicopter Pilot Instructor 01/21/25 Manager Area Relationship Specialty Start Date End Date Samm Kc DO [address] [place], [place] [id number] PCP - General Family Medicine 04/12/22 [place] [address] [place], [place] 2253336 Spine Health 05/17/18 [place] [address] [place], [place] [phone] Interior Design Consultant Cardiology 04/06/22 Toni Duran APRN.INSTALLER MOLDING [employer]IM [address] [place], [place] 97550212 [facility] 11/12/24 Samm Kc DO [address] [place], [place] 813462 Home Care Provider Family Medicine 01/08/25 Amy Angeles, BENCH ASSEMBLER BATTERY.INSTALLER [employer]OLDING [employer] [address] [place], [place] [phone] Referring Hematology/Oncology 01/12/25 Daphne Mcdermott RN Specialty Sales Mgr Hematology/Oncology 01/20/25 Della Alicia, BENCH ASSEMBLER BATTERY.INSTALLER MOLDING [employer] TRIM [address] [place], [place] 089712 [facility] 01/21/25 Vy Levy, hose wrapper Helicopter Pilot Instructor 01/21/25 Manager Area Relationship Specialty Start Date End Date Samm Kc DO [address] [place], [place] 659742 PCP - General Family Medicine 04/12/22 [place] [address] [place], [place] [phone] Spine Health 05/17/18 [place] [address] [place], [place] 5155936 Interior Design Consultant Cardiology 04/06/22 Toni Duran APRN.INSTALLER MOLDING [employer] TRIM [address] [place] [address] [facility] 11/12/24 Samm Kc DO [address] [place], [place] 360462 Home Care Provider Family Medicine 01/08/25 Amy Angeles, BENCH ASSEMBLER BATTERY.INSTALLER [employer]ING [employer] TRIM [address] [place] [address] Referring Hematology/Oncology 01/12/25 Daphne Mcdermott RN Specialty Sales Mgr Hematology/Oncology 01/20/25 Della Alicia, BENCH ASSEMBLER BATTERY.INSTALLER MOLDING [employer]IM [address] [place], [place] 464282 [facility] 01/21/25 Manager Area Relationship Specialty Start Date End Date Samm Kc DO [address] [place], [place] 507602 PCP - General Family Medicine 04/12/22 [place] [address] [place] [address] Spine Health 05/17/18 [place] [address] [place], [place] [phone] Interior Design Consultant Cardiology 04/06/22 Toni Duran APRN.INSTALLER MOLDING [employer] TRIM [address] [place], [place] 857162 [facility] 11/12/24 Della Alicia, BENCH ASSEMBLER BATTERY.INSTALLER MOLDING [employer]IM [address] [place], [place] 970882 [facility] 11/12/24 01/20/25 Samm Kc DO [address] [place], [place] 009332 Home Care Provider Family Medicine 01/08/25 Amy Angeles, BENCH ASSEMBLER BATTERY.INSTALLER MOLDING [employer]IM [address] [place] [address] Referring Hematology/Oncology 01/12/25October, Taty Gomez RN [address] [place] [address], [place] [address] Primary Care Helicopter Pilot Instructor Unspecified 01/13/25 01/21/25 Daphne Mcdermott RN Specialty Sales Mgr Hematology/Oncology 01/20/25 Della Alicia, BENCH ASSEMBLER BATTERY.INSTALLER [employer]OLDING [employer]IM [address] [place], [place] 961982 [facility] 01/21/25 Vy Levy RN Primary Care Helicopter Pilot Instructor 01/21/25 01/25/25 Manager Area Relationship Specialty Start Date End Date Samm Kc DO [address] [place], [place] 658412 PCP - General Family Medicine 04/12/22 [place] [address] [place] [phone] Spine Health 05/17/18 [place] [address] [place], [place] 3457936 Interior Design Consultant Cardiology 04/06/22 Toni Duran APRN.INSTALLER MOLDING [employer] TRIM [address] [place], [place] 214512 [facility] 11/12/24 Samm Kc DO [address] [place], [place] 003192 Home Care Provider Family Medicine 01/08/25 Amy Angeles, BENCH ASSEMBLER BATTERY.INSTALLER [employer]ING [employer]IM [address] [place] [address] Referring Hematology/Oncology 01/12/25 Daphne Mcdermott RN Specialty Sales Mgr Hematology/Oncology 01/20/25 Della Alicia, BENCH ASSEMBLER BATTERY.INSTALLER [employer]OLDING [employer] [address] [place], [place] 05480212 [facility] 01/21/25 Manager Area Relationship Specialty Start Date End Date YaminiSamm shepherdDO [address] [place], [place] [id number] PCP - General Family Medicine 04/12/22 [place] [address] [place] [address] [facility] 05/17/18 [place] [address] [place], [place] 3424036 Interior Design Consultant Cardiology 04/06/22 Toni Duran APRN.INSTALLER MOLDING AND TRIM [address] [place], [place] 34061212 [facility] 11/12/24 Yamini SammDO [address] [place], [place] 039562 Home Care Provider Family Medicine 01/08/25 Amy Angeles, BENCH ASSEMBLER BATTERY.INSTALLER [employer]IM [address] [place], [place] 7668095 Referring Hematology/Oncology 01/12/25 Daphne Mcdermott RN Specialty Sales Mgr Hematology/Oncology 01/20/25 Della Alicia, BENCH ASSEMBLER BATTERY.INSTALLER MOLDING [employer]IM [address] [place], [place] 33117212 [facility] 01/21/25 Manager Area Relationship Specialty Start Date End Date Yamini, SammDO maira [address] [place], [place] 719652 PCP - General Family Medicine 04/12/22 [place] [address] [place], [place] 1843236 Spine Health 05/17/18 [place] [address] [place], [place] 8227236 Interior Design Consultant Cardiology 04/06/22 Toni Duran APRN.INSTALLER MOLDING [employer] TRIM [address] [place] [address] [facility] 11/12/24 YaminiMalka shepherdelDO [address] [place] [address] Home Care Provider Family Medicine 01/08/25 Amy Angeles, BENCH ASSEMBLER BATTERY.INSTALLER [employer]OLDING [employer]IM [address] [place], [place] 7668095 Referring Hematology/Oncology 01/12/25 Daphne Mcdermott, RN Specialty Sales Mgr Hematology/Oncology 01/20/25 Della Alicia, BENCH ASSEMBLER BATTERY.INSTALLER MOLDING [employer]IM [address] [place], [place] 908922 [facility] 01/21/25 Manager Area Relationship Specialty Start Date End Date Yamini SammDO maira [address] [place], [place] 233152 PCP - General Family Medicine 04/12/22 [place] [address] [place], [place] 2164836 Spine Health 05/17/18 [place] [address] [place], [place] 7150936 Interior Design Consultant Cardiology 04/06/22 Toni Duran, BENCH ASSEMBLER BATTERY.INSTALLER MOLDING [employer] TRIM [address] [place] [address] [facility] 11/12/24 Samm Kc DO [address] [place] [address] Home Care Provider Family Medicine 01/08/25 Amy Angeles, BENCH ASSEMBLER BATTERY.INSTALLER [employer]OLDING [employer] TRIM [address] [place], [place] 7668095 Referring Hematology/Oncology 01/12/25 Daphne Mcdermott, RN Specialty Sales Mgr Hematology/Oncology 01/20/25 Della Alicia, BENCH ASSEMBLER BATTERY.INSTALLER MOLDING [employer] TRIM [address] [place] [address] [facility] 01/21/25 Manager Area Relationship Specialty Start Date End Date Samm Kc DO [address] [place], [place] 927492 PCP - General Family Medicine 04/12/22 [place] [address] [place] 1280136 Spine Health 05/17/18 [place] [address] [place], [place] 3115636 Interior Design Consultant Cardiology 04/06/22 Toni Duran, BENCH ASSEMBLER BATTERY.INSTALLER MOLDING [employer] TRIM [address] [place], [place] 695912 [facility] 11/12/24 Samm Kc DO [address] [place], [place] 54345212 Home Care Provider Family Medicine 01/08/25 Amy Angeles, BENCH ASSEMBLER BATTERY.INSTALLER MOLDING [employer] TRIM [address] [place] [address] Referring Hematology/Oncology 01/12/25 Daphne Mcdermott RN Specialty Sales Mgr Hematology/Oncology 01/20/25 Della Alicia, BENCH ASSEMBLER BATTERY.INSTALLER MOLDING [employer] TRIM [address] [place], [place] 045892 [facility] 01/21/25 [place] [address] [place], [place] 0254436 Hematology/Oncology 02/06/25 Nga Deras MA Network Navigator Post Acute Care 02/10/25 Manager Area Relationship Specialty Start Date End Date Samm Kc DO [address] [place], [place] 537292 PCP - General Family Medicine 04/12/22 [place] [address] [place] [address] Spine Health 05/17/18 [place] [address] [place], [place] 6188636 Interior Design Consultant Cardiology 04/06/22 Toni Duran, BENCH ASSEMBLER BATTERY.INSTALLER MOLDING AND TRIM [address] [place], [place] 659132 [facility] 11/12/24 Samm Kc DO [address] [place], [place] 390362 Home Care Provider Family Medicine 01/08/25 Amy Angeles BENCH ASSEMBLER BATTERY.INSTALLER MOLDING [employer] TRIM [address] [place] [address] Referring Hematology/Oncology 01/12/25 Daphne Mcdermott, RN Specialty Sales Mgr Hematology/Oncology 01/20/25 Della Alicia, BENCH ASSEMBLER BATTERY.INSTALLER MOLDING [employer] TRIM [address] [place], [place] 588512 [facility] 01/21/25 [place] [address] [place], [place] 5819936 Hematology/Oncology 02/06/25 Nga Deras MA Network Navigator Post Acute Care 02/10/25 Manager Area Relationship Specialty Start Date End Date Samm Kc DO [address] [place], [place] 585342 PCP - General Family Medicine 04/12/22 [place] [address] [place], [place] 7375036 Spine Health 05/17/18 [place] [address] [place], [place] 5509036 Interior Design Consultant Cardiology 04/06/22 Toni Duran, BENCH ASSEMBLER BATTERY.INSTALLER MOLDING AND TRIM [address] [place], [place] 17144212 [facility] 11/12/24 Samm Kc DO [address] [place] [address] Home Care Provider Family Medicine 01/08/25 Amy Angeles, BENCH ASSEMBLER BATTERY.INSTALLER MOLDING [employer] TRIM [address] [place], [place] 7668095 Referring Hematology/Oncology 01/12/25 Daphne Mcdermott, RN Specialty Sales Mgr Hematology/Oncology 01/20/25 Della Alicia, BENCH ASSEMBLER BATTERY.INSTALLER MOLDING [employer] TRIM [address] [place], [place] 13533212 [facility] 01/21/25 [place] [address] [place], [place] 1903036 Hematology/Oncology 02/06/25 Nga Deras MA Network Navigator Post Acute Care 02/10/25 Manager Area Relationship Specialty Start Date End Date Samm KcDO [address] [place], [place] 768112 PCP - General Family Medicine 04/12/22 [place] [address] [place], [place] 2948336 Spine Health 05/17/18 [place] [address] [place], [place] 2915136 Interior Design Consultant Cardiology 04/06/22 Toni Duran APRN.INSTALLER MOLDING AND TRIM [address] [place] [address] [facility] 11/12/24 Yamini SammDO maira [address] [place] [address] Home Care Provider Family Medicine 01/08/25 Amy Angeles, BENCH ASSEMBLER BATTERY.INSTALLER MOLDING [employer] TRIM [address] [place] [address] Referring Hematology/Oncology 01/12/25 Daphne Mcdermott RN Specialty Sales Mgr Hematology/Oncology 01/20/25 Della Alicia, BENCH ASSEMBLER BATTERY.INSTALLER MOLDING [employer] TRIM [address] [place], [place] 661202 [facility] 01/21/25 [place] [address] [place], [place] 3296536 Hematology/Oncology 02/06/25 Nga Deras MA Network Navigator Post Acute Care 02/10/25 Manager Area Relationship Specialty Start Date End Date Samm Kc DO [address] [place], [place] 922812 PCP - General Family Medicine 04/12/22 [place] [address] [place], [place] 3085336 Spine Health 05/17/18 [place] [address] [place], [place] 6145336 Interior Design Consultant Cardiology 04/06/22 Toni Duran, BENCH ASSEMBLER BATTERY.INSTALLER MOLDING [employer] TRIM [address] [place], [place] 182622 [facility] 11/12/24 Yamini SammDO [address] [place] [address] Home Care Provider Family Medicine 01/08/25 Amy Angeles, BENCH ASSEMBLER BATTERY.INSTALLER MOLDING [employer] TRIM [address] [place], [place] 7668095 Referring Hematology/Oncology 01/12/25 Daphne Mcdermott, RN Specialty Sales Mgr Hematology/Oncology 01/20/25 Della Alicia, BENCH ASSEMBLER BATTERY.INSTALLER MOLDING AND TRIM [address] [place], [place] 118562 [facility] 01/21/25 [place] [address] [place], [place] 9058836 Hematology/Oncology 02/06/25 Nga Deras MA Network Navigator Post Acute Care 02/10/25 Manager Area Relationship Specialty Start Date End Date Yamini SammDO [address] [place], [place] 664222 PCP - General Family Medicine 04/12/22 [place] [address] [place], [place] 7741636 [facility] 05/17/18 [place] [address] [place], [place] 2234636 Interior Design Consultant Cardiology 04/06/22 Toni Duran, BENCH ASSEMBLER BATTERY.INSTALLER MOLDING AND TRIM [address] [place], [place] 449302 [facility] 11/12/24 Yamini SammDO [address] [place], [place] 691442 Home Care Provider Family Medicine 01/08/25 Amy Angeles, BENCH ASSEMBLER BATTERY.INSTALLER MOLDING [employer] TRIM [address] [place] [address] Referring Hematology/Oncology 01/12/25 Daphne Mcdermott, RN Specialty Sales Mgr Hematology/Oncology 01/20/25 Della Alicia, BENCH ASSEMBLER BATTERY.INSTALLER MOLDING AND TRIM [address] [place], [place] 27896212 [facility] 01/21/25 [place] [address] [place] [address] Hematology/Oncology 02/06/25 Nga Deras MA Network Navigator Post Acute Care 02/10/25 Manager Area Relationship Specialty Start Date End Date Yamini SammDO [address] [place] [phone] PCP - General Family Medicine 04/12/22 [place] [address] [place], [place] 7982736 Spine Health 05/17/18 [place] [address] [place] 8346536 Interior Design Consultant Cardiology 04/06/22 Toni Duran BENCH ASSEMBLER BATTERY.INSTALLER MOLDING AND TRIM [facility] [place] [address] [facility] 11/12/24 Yamini SammDO [address] [place] [phone] Home Care Provider Family Medicine 01/08/25 Amy Angeles, BENCH ASSEMBLER BATTERY.INSTALLER MOLDING [employer] TRIM [address] [place], [place] 7668095 Referring Hematology/Oncology 01/12/25 Daphne Mcdermott RN Specialty Sales Mgr Hematology/Oncology 01/20/25 Della Alicia, BENCH ASSEMBLER BATTERY.INSTALLER MOLDING AND TRIM [address] [place], [place] 036252 [facility] 01/21/25 [place] [address] [place], [place] 4017736 Hematology/Oncology 02/06/25 Nga Deras MA Network Navigator Post Acute Care 02/10/25 Manager Area Relationship Specialty Start Date End Date Samm Kc DO [address] [place], [place] [phone] PCP - General Family Medicine 04/12/22 [place] [address] [place], [place] 9103736 Spine Health 05/17/18 [place] [address] [place] [address] Interior Design Consultant Cardiology 04/06/22 Toni Duran APRN.INSTALLER MOLDING AND TRIM [address] [place], [place] 66290212 [facility] 11/12/24 Samm Kc DO [address] [place], [place] 72993212 Home Care Provider Family Medicine 01/08/25 Amy Angeles APRN.INSTALLER MOLDING AND TRIM [address] [place] [address] Referring Hematology/Oncology 01/12/25 Daphne Mcdermott RN Specialty Sales Mgr Hematology/Oncology 01/20/25 Della Alicia, BENCH ASSEMBLER BATTERY.INSTALLER MOLDING AND TRIM [address] [place], [place] 111722 [facility] 01/21/25 [place] [address] [place], [place] 0216536 Hematology/Oncology 02/06/25 Nga Deras MA Network Navigator Post Acute Care 02/10/25 02/17/25 Manager Area Relationship Specialty Start Date End Date Samm Kc DO [address] [place] [address] PCP - General Family Medicine 04/12/22 [place] [address] [place], [place] 9927336 Spine Health 05/17/18 [place] [address] [place], [place] 2083936 Interior Design Consultant Cardiology 04/06/22 Toni Duran BENCH ASSEMBLER BATTERY.INSTALLER MOLDING AND TRIM [address] [place], [place] 821162 [facility] 11/12/24 Samm Kc DO [address] [place], [place] 967212 Home Care Provider Family Medicine 01/08/25 Amy Angeles, BENCH ASSEMBLER BATTERY.INSTALLER MOLDING [employer] TRIM [address] [place] [address] Referring Hematology/Oncology 01/12/25 Daphne Mcdermott, RN Specialty Sales Mgr Hematology/Oncology 01/20/25 Della Alicia, BENCH ASSEMBLER BATTERY.INSTALLER MOLDING AND TRIM [address] [place], [place] 225962 [facility] 01/21/25 [place] [address] [place], [place] [phone] Hematology/Oncology 02/06/25 Nga Deras MA Network Navigator Post Acute Care 02/10/25 02/17/25 Manager Area Relationship Specialty Start Date End Date Samm Kc DO [address] [place], [place] 146682 PCP - General Family Medicine 04/12/22 [place] [address] [place], [place] 9877736 Spine Health 05/17/18 [place] [address] [place], [place] 7293836 Interior Design Consultant Cardiology 04/06/22 Toni Duran APRN.INSTALLER MOLDING AND TRIM [address] [place], [place] 218232 [facility] 11/12/24 Samm Kc DO [address] [place], [place] 450802 Home Care Provider Family Medicine 01/08/25 Amy Angeles BENCH ASSEMBLER BATTERY.INSTALLER MOLDING [employer] TRIM [address] [place], [place] 0295095 Referring Hematology/Oncology 01/12/25 Daphne Mcdermott, RN Specialty Sales Mgr Hematology/Oncology 01/20/25 Della Alicia, BENCH ASSEMBLER BATTERY.INSTALLER MOLDING [employer] TRIM [address] [place], [place] 185452 [facility] 01/21/25 [place] [address] [place], [place] 1157136 Hematology/Oncology 02/06/25 Beth Cuenca LISW 85620 [facility]/[address] [phone] Glass Designer Oncology 02/18/25 Manager Area Relationship Specialty Start Date End Date Samm Kc DO [address] [place], [place] 772282 PCP - General Family Medicine 04/12/22 [place] [address] [place], [place] 3753736 Spine Health 05/17/18 [place] [address] [place], [place] 6944736 Interior Design Consultant Cardiology 04/06/22 Toni Duran APRN.INSTALLER MOLDING AND TRIM [address] [place], [place] 944482 [facility] 11/12/24 Samm Kc DO [address] [place], [place] 066142 Home Care Provider Family Medicine 01/08/25 Amy Angeles BENCH ASSEMBLER BATTERY.INSTALLER MOLDING [employer] TRIM [address] [place] [address] Referring Hematology/Oncology 01/12/25 Daphne Mcdermott, MY Specialty Sales Mgr Hematology/Oncology 01/20/25 Della Alicia BENCH ASSEMBLER BATTERY.INSTALLER MOLDING AND TRIM [address] [place], [place] 902012 [facility] 01/21/25 [place] [address] [place], [place] 7271836 Hematology/Oncology 02/06/25 Beth Cuenca LISW 63074 [facility]/[address] [phone] Glass Designer Oncology 02/18/25 Manager Area Relationship Specialty Start Date End Date Samm Kc DO [address] [place] [address] PCP - General Family Medicine 04/12/22 [place] [address] [place], [place] 7432636 Spine Health 05/17/18 [place] [address] [place], [place] 0199936 Interior Design Consultant Cardiology 04/06/22 Toni Duran APRN.INSTALLER MOLDING AND TRIM [address] [place], [place] 362262 [facility] 11/12/24 Samm Kc DO [address] [place], [place] 877242 Home Care Provider Family Medicine 01/08/25 Amy Angeles, BENCH ASSEMBLER BATTERY.INSTALLER MOLDING [employer] TRIM [address] [place], [place] 3592895 Referring Hematology/Oncology 01/12/25 Daphne Mcdermott RN Specialty Sales Mgr Hematology/Oncology 01/20/25 Della Alicia, BENCH ASSEMBLER BATTERY.INSTALLER MOLDING AND TRIM [address] [place], [place] 79280212 [facility] 01/21/25 [place] [address] [place], [place] 9531436 Hematology/Oncology 02/06/25 Beth Cuenca LISW 72043 [facility]/[address] [phone] Glass Designer Oncology 02/18/25 Manager Area Relationship Specialty Start Date End Date Samm Kc DO [address] [place], [place] [phone] PCP - General Family Medicine 04/12/22 [place] [address] [place], [place] 7148736 Spine Health 05/17/18 [place] [address] [place] [address] Interior Design Consultant Cardiology 04/06/22 Toni Duran BENCH ASSEMBLER BATTERY.INSTALLER MOLDING AND TRIM [address] [place], [place] 184332 [facility] 11/12/24 Samm Kc DO [address] [place], [place] 079942 Home Care Provider Family Medicine 01/08/25 Amy Angeles BENCH ASSEMBLER BATTERY.INSTALLER MOLDING [employer] TRIM [address] [place] [address] 3748495 Referring Hematology/Oncology 01/12/25 Daphne Mcdermott RN Specialty Sales Mgr Hematology/Oncology 01/20/25 Della Alicia, BENCH ASSEMBLER BATTERY.INSTALLER MOLDING AND TRIM [address] [place], [place] 875492 [facility] 01/21/25 [place] [address] [place] [address] Hematology/Oncology 02/06/25 Beth Cuenca LISW 55482 [facility]/ST[address] [place] [address] Glass Designer Oncology 02/18/25 Manager Area Relationship Specialty Start Date End Date Samm Kc DO [address] [place], [place] 860822 PCP - General Family Medicine 04/12/22 [place] [address] [place] [address] Spine Health 05/17/18 [place] [address] [place], [place] 1107936 Interior Design Consultant Cardiology 04/06/22 Toni Duran, BENCH ASSEMBLER BATTERY.INSTALLER MOLDING AND TRIM [address] [place], [place] 811642 [facility] 11/12/24 Samm Kc DO [address] [place], [place] 757762 Home Care Provider Family Medicine 01/08/25 Amy Angeles, BENCH ASSEMBLER BATTERY.INSTALLER MOLDING [employer] TRIM [address] [place] [address]65 Referring Hematology/Oncology 01/12/25 Daphne Mcdermott, RN Specialty Sales Mgr Hematology/Oncology 01/20/25 Della Alicia, BENCH ASSEMBLER BATTERY.INSTALLER MOLDING [employer] TRIM [address] [place], [place] 114722 [facility] 01/21/25 [place] [address] [place], [place] [phone] Hematology/Oncology 02/06/25 Beth Cuenca LISW 19593 [facility]/[address] 9114536 Glass Designer Oncology 02/18/25 Manager Area Relationship Specialty Start Date End Date Samm Kc DO [address] [place] [address] PCP - General Family Medicine 04/12/22 [place] [address] [place] [address] Spine Health 05/17/18 [place] [address] [place], [place] 5028236 Interior Design Consultant Cardiology 04/06/22 Toni Duran BENCH ASSEMBLER BATTERY.INSTALLER MOLDING AND TRIM [address] [place], [place] 342212 [facility] 11/12/24 Samm Kc DO [address] [place] [address] Home Care Provider Family Medicine 01/08/25 Amy Angeles, BENCH ASSEMBLER BATTERY.INSTALLER MOLDING [employer] TRIM [address] [place] [address] 0498195 Referring Hematology/Oncology 01/12/25 Daphne Mcdermott, MY Specialty Sales Mgr Hematology/Oncology 01/20/25 Della Alicia, BENCH ASSEMBLER BATTERY.INSTALLER MOLDING [employer] TRIM [address] [place], [place] 735782 [facility] 01/21/25 [place] [address] [place], [place] 5833236 Hematology/Oncology 02/06/25 Beth Cuenca LISW [address] [place] [address]/[address] [address] Glass Designer Oncology 02/18/25 (unrecognized sect ion and content) No Status Records FoundNo Status Records FoundNo Status Records FoundNo Status Records FoundNo Status Records FoundNo Status Records FoundNo Status Records Found INFORMATION SOURCE (unrecogn ized section and content) DATE CREATED AUTHOR 05/05/2022 [facility] DATE CREATED AUTHOR AUTHOR'S ORGANIZ ATION 12/30/2024 [facility] DATE CREATED AUTHOR AUTHOR'S ORGANIZ ATION 02/09/2025 [facility] DATE CREATED AUTHOR AUTHOR'S ORGANIZ ATION 02/12/2025 [facility] DATE CREATED AUTHOR AUTHOR'S ORGANIZ ATION 02/13/2025 [facility] DATE CREATED AUTHOR AUTHOR'S ORGANIZ ATION 04/22/2025 [facility] DATE CREATED AUTHOR AUTHOR'S ORGANIZ ATION 04/23/2025 [facility] PRN Active and Recently Administ ered Medications [...] BE BASED ON THE PRIMARY CLINICAL RECORDS. [facility] [employer] [facility]. provides no warranty or guarantee of the accuracy or completeness of information in this document.
[2025-05-25 09:02] LABS: Anion Gap 11 (5-15); BUN 31 mg/dL (4-19); BUN/Creat Ratio 22.8 RATIO (10-20); Calcium,Total 8.6 mg/dL (7.6-11.0); Carbon Dioxide 23.5 mmol/L (21.0-32.0); Chloride 109 mmol/L (98-108); Glucose 176 mg/dL (70-99); Potassium 4.1 mmol/L (3.3-5.1)
== END ==
LOC: OLS.SANC 05:00
DX: Z99.2 Dependence on renal dialysis (principal); N18.6 End stage renal disease
CPT/HCPCS: 36415; 80048; 81050; 82570